=== PATIENT | female | born 1935 | race Hispanic/Latino ===

== ENCOUNTER 2016-07-14 19:47 | Inpatient (IN) | payer OTHER, MEDICARE ==
[2016-07-14 19:25] VITALS: BMI 30.4
--- NOTE | 2016-07-14 21:32 | CP.PCM.HP ---
History of Present Illness - History of Present Illness History of Present Illness: CC: s/p VT ablation, here for PT This is a 80 y/o female with a history of CAD/OK, HTN, HLD, CVA in the past, and ischemic cardiomyopathy who was admitted to [facility] on 07/09 for VT ablation after her AICD had fired multiple (2) times. It appears she had the procedure 07/13 which appeared to be successful, and she is now here rehab due to deconditioning. At this time, she has no c/c. ROS: 14 systems reviewed, negative other than HPI. MHx: CAD/OK, HTN, HLD, CVA in the past, and ischemic cardiomyopathy; history of breast cancer as well SHx: VT ablation, appx, tonsillectomy, b/l cataracts, tubal ligation, cath/ stents, AICD placement Allergies: NKDA Medication: see transfer med list Family Hx: Reviewed, no relevant findings Social Hx: Lives alone, no tobacco, no EtOH Surrogate Decision Maker: Pending Present on Admission - Present on Admission Any Indicators Present on Admission: No Past Patient History - Infectious Disease Hx of Infectious Diseases: None - Tetanus Immunizations Tetanus Immunization: Unknown - Past Medical History & Family History Past Medical History?: Yes - Past Social History Smoking Status: Former Smoker (stopped in 1982) Chewing Tobacco Use: No - CARDIAC Hx Heart Attack: Yes Hx Hypercholesterolemia: No - PULMONARY Hx Chronic Obstructive Pulmonary Disease (COPD): No Hx Pneumonia: Yes - NEUROLOGICAL Hx Neurological Disorder: No HX Cerebrovascular Accident: No - HEENT Other/Comment: mastoiditis - RENAL Hx Chronic Kidney Disease: No - ENDOCRINE/METABOLIC Hx Hypothyroidism: Yes - HEMATOLOGICAL/ONCOLOGICAL Hx Cancer: Yes - INTEGUMENTARY Hx Dermatological Problems: No - MUSCULOSKELETAL/RHEUMATOLOGICAL Hx Osteoporosis: Yes (on Zometa) - GASTROINTESTINAL Hx Gastrointestinal Disorders: No - GENITOURINARY/GYNECOLOGICAL Hx Genitourinary Disorders: No - PSYCHIATRIC Hx Psychophysiologic Disorder: No Hx Substance Use: No - SURGICAL HISTORY Hx Cataract Extraction: Yes - ANESTHESIA Hx Anesthesia: Yes Hx Anesthesia Reactions: No Hx Malignant Hyperthermia: No Meds Allergies/Adverse Reactions: Allergies Allergy/AdvReac Type Severity Reaction Status Date / Time No Known Allergies Allergy Verified 04/29/16 07:58 Physical Exam - Constitutional Appears: No Acute Distress - Head Exam Head Exam: ATRAUMATIC, NORMOCEPHALIC - Eye Exam Eye Exam: EOMI, PERRL - ENT Exam ENT Exam: Mucous Membranes Moist - Neck Exam Neck exam: Positive for: Full Rom - Respiratory Exam Respiratory Exam: Clear to Auscultation Bilateral, NORMAL BREATHING PATTERN - Cardiovascular Exam Cardiovascular Exam: REGULAR RHYTHM, +S1, +S2 - GI/Abdominal Exam GI & Abdominal Exam: Normal Bowel Sounds, Soft - Extremities Exam Extremities exam: Positive for: full ROM, normal inspection - Neurological Exam Neurological exam: Alert, CN II-XII Intact, Oriented x3 - Psychiatric Exam Psychiatric exam: Normal Affect, Normal Mood - Skin Skin Exam: Dry, Warm Assessment & Plan (1) Status post ablation of ventricular arrhythmia Assessment and Plan: 80 y/o female with multiple medical problems who presents for PT post VT ablation. 1) s/p V tach ablation -Will consult cardiology (Kerry) for recommendation re: antiarrhythmia medication -- apparently amio d/c'ed s/p ablation, will continue to hold; continue Mexilitene for now until cardiology consult 2) CAD/HLD -- cont home medications incl b-B, ASA, Plavix, statin 3) HTN -- cont Losartan, metoprolol 4) Isch cardio/CHF -- cont b-blockers, Lasix 5) Hypothyroid -- cont synthroid 6) R otitis -- will need to clarify length of treatment with [place] -- unclear how many days she has received 7) DVT PPx -- SC Lovenox Status: Acute (2) CHF (congestive heart failure) Status: Chronic Priority: High (3) HLD (hyperlipidemia) Status: Chronic (4) HTN (hypertension) Status: Chronic (5) DVT prophylaxis Status: Acute
[2016-07-14 22:30] VITALS: RESP 20
[2016-07-15 06:54] LABS: HEMATOCRIT 27.2 % (34.0-47.0); MEAN CELL VOLUME 93.4 fl (81.0-99.0); MEAN CORPUSCULAR HEMOGLOBIN 30.3 pg (27.0-31.0); MEAN CORPUSCULAR HGB CONC 32.5 g/dL (33.0-37.0); RED CELL DISTRIBUTION WIDTH 15.3 % (11.5-14.5); WHITE BLOOD COUNT 9.9 K/uL (4.8-10.8)
[2016-07-15 07:31] LABS: CALCIUM 8.3 mg/dL (8.4-10.2); POTASSIUM 3.9 MMOL/L (3.6-5.0)
[2016-07-15] MEDS ORDERED: OFLOXACIN 0.3% AD SCH (09:00)
[2016-07-15] MEDS: Enoxaparin 40 mg Syringe SC SCH (09:15)
[2016-07-15] MEDS: Multivitamin With Minerals Tab PO SCH (09:32)
[2016-07-15] MEDS: Pantoprazole 40 mg EC Tab PO SCH (09:32)
[2016-07-15] MEDS: Calcium-Vit D 500 mg-200 Units Tab UD PO SCH (09:32)
[2016-07-15] MEDS: Metoprolol Succinate 50 mg XL Tab PO SCH (09:33)
[2016-07-15] MEDS: Levothyroxine 25 MCG TAB PO SCH (09:34)
--- NOTE | 2016-07-15 10:10 | CP.PCM.CON ---
History of Present Illness - History of Present Illness History of Present Illness: Full Note Dictated. Recent VT ablation procedure H/O Recurrent bouts of VT CAD with dilated cardiomyopathy COPD S/P Mastectomy for CA Breast Pt stable from cardiac point of view at this point Past Patient History - Infectious Disease Hx of Infectious Diseases: None - Tetanus Immunizations Tetanus Immunization: Unknown - Past Medical History & Family History Past Medical History?: Yes - Past Social History Smoking Status: Former Smoker (stopped in 1982) Chewing Tobacco Use: No - CARDIAC Hx Heart Attack: Yes Hx Hypercholesterolemia: No - PULMONARY Hx Chronic Obstructive Pulmonary Disease (COPD): No Hx Pneumonia: Yes - NEUROLOGICAL Hx Neurological Disorder: No HX Cerebrovascular Accident: No - HEENT Other/Comment: mastoiditis - RENAL Hx Chronic Kidney Disease: No - ENDOCRINE/METABOLIC Hx Hypothyroidism: Yes - HEMATOLOGICAL/ONCOLOGICAL Hx Cancer: Yes - INTEGUMENTARY Hx Dermatological Problems: No - MUSCULOSKELETAL/RHEUMATOLOGICAL Hx Osteoporosis: Yes (on Zometa) - GASTROINTESTINAL Hx Gastrointestinal Disorders: No - GENITOURINARY/GYNECOLOGICAL Hx Genitourinary Disorders: No - PSYCHIATRIC Hx Psychophysiologic Disorder: No Hx Substance Use: No - SURGICAL HISTORY Hx Cataract Extraction: Yes - ANESTHESIA Hx Anesthesia: Yes Hx Anesthesia Reactions: No Hx Malignant Hyperthermia: No Meds Allergies/Adverse Reactions: Allergies Allergy/AdvReac Type Severity Reaction Status Date / Time No Known Allergies Allergy Verified 04/29/16 07:58 - Medications Medications: Current Medications Anastrozole (Arimidex 1 Mg Tab) 1 mg PO DAILY [facility] Ascorbic Acid (Vitamin C 500 Mg Tab) 1,000 mg PO DAILY [facility] Last Admin: 07/15/16 09:34 Dose: 1,000 mg Aspirin (Ecotrin) 81 mg PO DAILY [facility] Last Admin: 07/15/16 09:35 Dose: 81 mg Atorvastatin Calcium (Lipitor) 20 mg PO HS [facility] Last Admin: 07/14/16 23:03 Dose: 20 mg Calcium/Vitamin D (Oyster Shell Calcium/Vitamin D 500 Mg-200 Iu) 1 tab PO DAILY [facility] Last Admin: 07/15/16 09:32 Dose: 1 tab Cholecalciferol (Vitamin D) 2,000 iu PO DAILY [facility] Last Admin: 07/15/16 09:34 Dose: 2,000 iu Enoxaparin Sodium (Lovenox) 40 mg SC DAILY [facility] PRN Reason: Protocol Furosemide (Lasix) 20 mg PO DAILY [facility] Last Admin: 07/15/16 09:34 Dose: 20 mg Home Med (Ubidecarenone [Coenzyme Q-10]) 200 mg PO DAILY [facility] Levothyroxine Sodium (Synthroid) 25 mcg PO DAILY [facility] Last Admin: 07/15/16 09:34 Dose: 25 mcg Losartan Potassium (Cozaar) 25 mg PO DAILY [facility] Last Admin: 07/15/16 09:32 Dose: 25 mg Metoprolol Succinate (Toprol Xl) 50 mg PO DAILY [facility] Last Admin: 07/15/16 09:33 Dose: 50 mg Mexiletine HCl (Mexiletine) 150 mg PO Q8H [facility] Last Admin: 07/15/16 05:53 Dose: 150 mg Multivitamins/Minerals (Therapeutic-M Tab) 1 tab PO DAILY [facility] Last Admin: 07/15/16 09:32 Dose: 1 tab Ofloxacin (Floxin 0.3% Otic Soln) 5 drop AD DAILY [facility] Pantoprazole Sodium (Protonix Ec Tab) 40 mg PO DAILY [facility] Last Admin: 07/15/16 09:32 Dose: 40 mg Results - Vital Signs Recent Vital Signs: Last Vital Signs Temp 97.3 F L 07/15/16 08:14 Pulse 75 07/15/16 09:33 Resp 20 07/15/16 08:14 BP 151/72 H 07/15/16 09:34 Pulse Ox 100 07/15/16 08:14 - Labs Result Diagrams: 07/15/16 06:33 07/15/16 06:33 Labs: Laboratory Results - last 24 hr 07/15/16 07/15/16 06:33 06:33 WBC 9.9 RBC 2.92 L Hgb 8.8 L D Hct 27.2 L MCV 93.4 MCH 30.3 MCHC 32.5 L RDW 15.3 H Plt Count 195 Sodium 140 Potassium 3.9 Chloride 109 H Carbon Dioxide 26 Anion Gap 9 L BUN 21 H Creatinine 1.1 Est GFR ( Amer) 58 Est GFR (Non-Af Amer) 48 Random Glucose 116 H Calcium 8.3 L
[2016-07-15] MEDS: Patient's Own Med (Ubidecarenone [Coenzyme Q-10] 200 mg) PO SCH (10:30)
--- NOTE | 2016-07-15 10:46 | CON ---
DATE: 07/15/2016 She is hospitalized under the hospitalist's care in room 707, bed 2. HISTORY OF PRESENT ILLNESS: This 80-year-old female had undergone a coronary angiogram in early which revealed evidence of dilated cardiomyopathy. No coronary stenting was carried out at that time. She is an ex-smoker with COPD and had had bouts of ventricular tachycardia in her March hosp italization and required a direct current cardioversion followed by insertion of an AICD. Subsequent ly, the patient had been placed on mexiletine and amiodarone and bitterly complained about the side e ffects, but did not want to undergo a VT ablation procedure which was offered to her at that time. S ubsequently, in early June, the patient finally agreed to undergo this procedure and she was schedul ed to have this done electively at the end of June when, couple of days before that episode, she had repeated DC shocks from her AICD and was urgently hospitalized. Interrogation of the device showed multiple bouts of ventricular tachycardia which were repeatedly resolved with DC shock. Finally, the patient underwent a VT ablation procedure 2 days back and subsequently has been sent here to recoup. The patient is continued on mexiletine and metoprolol for a couple of weeks before they are tapered off. At this point, she denies any palpitations or any further shocks subsequent to the ablation pr ocedure. PHYSICAL EXAMINATION: GENERAL: Shows an elderly lady who is anxious about recent events, but denies any discomfort, alert, awake, coherent. VITAL SIGNS: Afebrile with a pulse rate of 70 beats per minute and regular and a blood pressure of 1 50/72 mmHg. NECK: Her jugular venous pressure was not elevated. EXTREMITIES: There was no edema over lower extremity. Her extremities were warm. Nailbeds were pin k. There was no central or peripheral cyanosis. There was no clubbing. Pedal pulses were well felt . There were no carotid bruits. Evidence of mastectomy was present. HEART: The apex was not palpable. The first and second heart sounds were normal. There was no murm ur or gallop. LUNGS: There were no rales. ABDOMEN: Soft. Liver and spleen were not palpable. Her electrocardiogram showed sinus rhythm with nonspecific ST-T changes, inverted T waves in lead 1 a nd aVL as well as V4, V5 and V6. Tall R waves in V2 were suggestive of possible old posterior wall m yocardial infarction, a pattern seen on earlier electrocardiogram as well. LABORATORY DATA: Her labs done yesterday were reviewed and they show a hemoglobin and hematocrit of 8.8 g and 27.2%, respectively. Her BUN and creatinine were 21 and 1.1 mg%. Her potassium was normal . Review of her hemoglobin shows that, on earlier occasions as recent as on 07/07, her hemoglobin was 11.6 g. The patient denies any melena. Her stool for occult blood and iron studies will be obtaine d. At this point, she is hemodynamically stable. Latrell Payne MD cc: 23 TT: 07/15/2016 10:46:05 Confirmation # [id number] Dictation # [id number]
[2016-07-15 12:07] LABS: IRON 42 ug/dL (37-170)
--- NOTE | 2016-07-15 18:49 | CARD ---
APPROVED REPORT EKG Measurement Heart [id number] IA [id number] <Conclusion> Normal sinus rhythm ST & T wave abnormality, consider lateral ischemia Prolonged QT Abnormal ECG
--- NOTE | 2016-07-16 09:14 | CP.PCM.PN ---
Subjective - Date & Time of Evaluation Date of Evaluation: 07/16/16 Time of Evaluation: 09:00 - Subjective Subjective: C/O mild dyspnoea, partially relieved by O2 supplement (pulse Ox was stable) BP 130/70 mm Hg JVP flat, bi basal rales++ No gallop Brief apical syst murmur+ Retic count 1.8% Ferritin normal/Fe saturation is low Will check Serum B12 and RBC folate Ordered Lasix to dania pt. Objective - Vital Signs/Intake and Output Vital Signs (last 24 hours): Temp Pulse Resp BP Pulse Ox 97.7 F 72 20 147/65 99 07/16/16 07:58 07/16/16 07:58 07/16/16 07:58 07/16/16 07:58 07/16/16 07:58 - Medications Medications: Current Medications Anastrozole (Arimidex 1 Mg Tab) 1 mg PO DAILY [facility] Last Admin: 07/15/16 10:29 Dose: 1 mg Ascorbic Acid (Vitamin C 500 Mg Tab) 1,000 mg PO DAILY [facility] Last Admin: 07/15/16 09:34 Dose: 1,000 mg Aspirin (Ecotrin) 81 mg PO DAILY [facility] Last Admin: 07/15/16 09:35 Dose: 81 mg Atorvastatin Calcium (Lipitor) 20 mg PO HS [facility] Last Admin: 07/15/16 21:27 Dose: 20 mg Calcium/Vitamin D (Oyster Shell Calcium/Vitamin D 500 Mg-200 Iu) 1 tab PO DAILY [facility] Last Admin: 07/15/16 09:32 Dose: 1 tab Cholecalciferol (Vitamin D) 2,000 iu PO DAILY [facility] Last Admin: 07/15/16 09:34 Dose: 2,000 iu Enoxaparin Sodium (Lovenox) 40 mg SC DAILY [facility] PRN Reason: Protocol Furosemide (Lasix) 20 mg PO DAILY [facility] Last Admin: 07/15/16 09:34 Dose: 20 mg Furosemide (Lasix) 40 mg IVP ONCE ONE Stop: 07/16/16 09:16 Home Med (Ubidecarenone [Coenzyme Q-10]) 200 mg PO DAILY [facility] Levothyroxine Sodium (Synthroid) 25 mcg PO DAILY [facility] Last Admin: 07/15/16 09:34 Dose: 25 mcg Losartan Potassium (Cozaar) 25 mg PO DAILY [facility] Last Admin: 07/15/16 09:32 Dose: 25 mg Metoprolol Succinate (Toprol Xl) 50 mg PO DAILY [facility] Last Admin: 07/15/16 09:33 Dose: 50 mg Mexiletine HCl (Mexiletine) 150 mg PO Q8H [facility] Last Admin: 07/16/16 05:02 Dose: 150 mg Multivitamins/Minerals (Therapeutic-M Tab) 1 tab PO DAILY [facility] Last Admin: 07/15/16 09:32 Dose: 1 tab Pantoprazole Sodium (Protonix Ec Tab) 40 mg PO DAILY [facility] Last Admin: 07/15/16 09:32 Dose: 40 mg - Labs Labs: 07/15/16 06:33 07/15/16 06:33
[2016-07-16] MEDS: Multivitamin With Minerals Tab PO SCH (09:31)
[2016-07-16] MEDS: Enoxaparin 40 mg Syringe SC SCH (09:33)
[2016-07-16] MEDS: Calcium-Vit D 500 mg-200 Units Tab UD PO SCH (09:33)
[2016-07-16] MEDS: Levothyroxine 25 MCG TAB PO SCH (09:33)
[2016-07-16] MEDS: Metoprolol Succinate 50 mg XL Tab PO SCH (09:37)
[2016-07-16] MEDS: Pantoprazole 40 mg EC Tab PO SCH (09:37)
--- NOTE | 2016-07-16 12:18 | CP.PCM.PN ---
Subjective - Date & Time of Evaluation Date of Evaluation: 07/16/16 Time of Evaluation: 12:18 - Subjective Subjective: pt doing well tolerating PT well no complaints vss nad Objective - Vital Signs/Intake and Output Vital Signs (last 24 hours): Temp Pulse Resp BP Pulse Ox 97.7 F 72 20 147/65 99 07/16/16 07:58 07/16/16 09:37 07/16/16 07:58 07/16/16 10:07 07/16/16 07:58 - Medications Medications: Current Medications Anastrozole (Arimidex 1 Mg Tab) 1 mg PO DAILY [facility] Last Admin: 07/16/16 09:32 Dose: 1 mg Ascorbic Acid (Vitamin C 500 Mg Tab) 1,000 mg PO DAILY [facility] Last Admin: 07/16/16 09:32 Dose: 1,000 mg Aspirin (Ecotrin) 81 mg PO DAILY [facility] Last Admin: 07/16/16 09:34 Dose: 81 mg Atorvastatin Calcium (Lipitor) 20 mg PO HS [facility] Last Admin: 07/15/16 21:27 Dose: 20 mg Calcium/Vitamin D (Oyster Shell Calcium/Vitamin D 500 Mg-200 Iu) 1 tab PO DAILY [facility] Last Admin: 07/16/16 09:33 Dose: 1 tab Cholecalciferol (Vitamin D) 2,000 iu PO DAILY [facility] Last Admin: 07/16/16 09:32 Dose: 2,000 iu Enoxaparin Sodium (Lovenox) 40 mg SC DAILY [facility] PRN Reason: Protocol Last Admin: 07/16/16 09:33 Dose: 40 mg Furosemide (Lasix) 20 mg PO DAILY [facility] Last Admin: 07/16/16 09:37 Dose: Not Given Levothyroxine Sodium (Synthroid) 25 mcg PO DAILY [facility] Last Admin: 07/16/16 09:33 Dose: 25 mcg Losartan Potassium (Cozaar) 25 mg PO DAILY [facility] Last Admin: 07/16/16 09:34 Dose: 25 mg Metoprolol Succinate (Toprol Xl) 50 mg PO DAILY [facility] Last Admin: 07/16/16 09:37 Dose: 50 mg Mexiletine HCl (Mexiletine) 150 mg PO Q8H [facility] Last Admin: 07/16/16 05:02 Dose: 150 mg Multivitamins/Minerals (Therapeutic-M Tab) 1 tab PO DAILY [facility] Last Admin: 07/16/16 09:31 Dose: 1 tab Pantoprazole Sodium (Protonix Ec Tab) 40 mg PO DAILY [facility] Last Admin: 07/16/16 09:37 Dose: 40 mg - Labs Labs: 07/15/16 06:33 07/15/16 06:33 - Constitutional Appears: Non-toxic, No Acute Distress - Head Exam Head Exam: ATRAUMATIC, NORMOCEPHALIC - Eye Exam Eye Exam: EOMI, Normal appearance, PERRL Pupil Exam: NORMAL ACCOMODATION - ENT Exam ENT Exam: Mucous Membranes Moist, Normal Oropharynx - Neck Exam Neck Exam: Normal Inspection. absent: Lymphadenopathy - Respiratory Exam Respiratory Exam: Clear to Ausculation Bilateral, NORMAL BREATHING PATTERN. absent: Rhonchi, Wheezes - Cardiovascular Exam Cardiovascular Exam: RRR, +S1, +S2. absent: Gallop, Rubs - GI/Abdominal Exam GI & Abdominal Exam: Soft, Normal Bowel Sounds. absent: Tenderness, Mass, Organomegaly - Extremities Exam Extremities Exam: absent: Calf Tenderness, Joint Swelling - Back Exam Back Exam: absent: CVA tenderness (L), CVA tenderness (R) - Neurological Exam Neurological Exam: Alert, Awake - Psychiatric Exam Psychiatric exam: Normal Affect, Normal Mood - Skin Skin Exam: Dry, Warm Assessment and Plan - Assessment and Plan (Free Text) Plan: Status post ablation of ventricular arrhythmia 80 y/o female with multiple medical problems who presents for PT post VT ablation. s/p V tach ablation cardiology consult, Dr. Payne appreciated and followed. continue mexilitine CAD/HLD - cont home medications including BB, ASA, Plavix, statin HTN cont Losartan, metoprolol Ischemic cardiomyopathy/CHF cont b-blockers, Lasix for diuresis Cariodlogy Hypothyroid cont synthroid Hx Breast Ca continue arimidex DVT PPx lovenox
[2016-07-16] MEDS: Patient's Own Med (Ubidecarenone [Coenzyme Q-10] 200 mg) PO SCH (13:27)
[2016-07-17] MEDS: Levothyroxine 25 MCG TAB PO SCH (09:31)
[2016-07-17] MEDS: Metoprolol Succinate 50 mg XL Tab PO SCH (09:34)
[2016-07-17] MEDS: Pantoprazole 40 mg EC Tab PO SCH (09:34)
[2016-07-17] MEDS: Calcium-Vit D 500 mg-200 Units Tab UD PO SCH (09:34)
[2016-07-17] MEDS: Multivitamin With Minerals Tab PO SCH (09:35)
[2016-07-17] MEDS: Enoxaparin 40 mg Syringe SC SCH (09:36)
--- NOTE | 2016-07-17 10:30 | CP.PCM.PN ---
Subjective - Date & Time of Evaluation Date of Evaluation: 07/17/16 Time of Evaluation: 10:10 - Subjective Subjective: Diuresed well and slept well Pt seen during PT Feels well Vital signs stable No rales, no gallop S B12 level normal Will keep pt on 40 Mg of Lasix PO daily. Objective - Vital Signs/Intake and Output Vital Signs (last 24 hours): Temp Pulse Resp BP Pulse Ox 98.0 F 60 20 139/65 98 07/17/16 08:03 07/17/16 09:34 07/17/16 08:03 07/17/16 09:35 07/17/16 08:03 - Medications Medications: Current Medications Anastrozole (Arimidex 1 Mg Tab) 1 mg PO DAILY [facility] Last Admin: 07/17/16 09:33 Dose: 1 mg Ascorbic Acid (Vitamin C 500 Mg Tab) 1,000 mg PO DAILY [facility] Last Admin: 07/17/16 09:34 Dose: 1,000 mg Aspirin (Ecotrin) 81 mg PO DAILY [facility] Last Admin: 07/17/16 09:33 Dose: 81 mg Atorvastatin Calcium (Lipitor) 20 mg PO HS [facility] Last Admin: 07/16/16 21:22 Dose: 20 mg Calcium/Vitamin D (Oyster Shell Calcium/Vitamin D 500 Mg-200 Iu) 1 tab PO DAILY [facility] Last Admin: 07/17/16 09:34 Dose: 1 tab Cholecalciferol (Vitamin D) 2,000 iu PO DAILY [facility] Last Admin: 07/17/16 09:35 Dose: 2,000 iu Enoxaparin Sodium (Lovenox) 40 mg SC DAILY [facility] PRN Reason: Protocol Last Admin: 07/17/16 09:36 Dose: 40 mg Furosemide (Lasix) 40 mg PO DAILY [facility] Levothyroxine Sodium (Synthroid) 25 mcg PO DAILY [facility] Last Admin: 07/17/16 09:31 Dose: 25 mcg Losartan Potassium (Cozaar) 25 mg PO DAILY [facility] Last Admin: 07/17/16 09:34 Dose: 25 mg Metoprolol Succinate (Toprol Xl) 50 mg PO DAILY [facility] Last Admin: 07/17/16 09:34 Dose: 50 mg Mexiletine HCl (Mexiletine) 150 mg PO Q8H [facility] Last Admin: 07/17/16 06:26 Dose: 150 mg Multivitamins/Minerals (Therapeutic-M Tab) 1 tab PO DAILY [facility] Last Admin: 07/17/16 09:35 Dose: 1 tab Pantoprazole Sodium (Protonix Ec Tab) 40 mg PO DAILY [facility] Last Admin: 07/17/16 09:34 Dose: 40 mg - Labs Labs: 07/15/16 06:33 07/15/16 06:33
[2016-07-18] MEDS: Levothyroxine 25 MCG TAB PO SCH (06:27)
[2016-07-18] MEDS: Pantoprazole 40 mg EC Tab PO SCH (09:33)
[2016-07-18] MEDS: Metoprolol Succinate 50 mg XL Tab PO SCH (09:35)
[2016-07-18] MEDS: Enoxaparin 40 mg Syringe SC SCH (09:36)
[2016-07-18] MEDS: Multivitamin With Minerals Tab PO SCH (14:59)
[2016-07-18] MEDS: Calcium-Vit D 500 mg-200 Units Tab UD PO SCH (18:08)
[2016-07-19] MEDS: Levothyroxine 25 MCG TAB PO SCH (06:33)
[2016-07-19] MEDS: Metoprolol Succinate 50 mg XL Tab PO SCH (09:15)
[2016-07-19] MEDS: Pantoprazole 40 mg EC Tab PO SCH (09:15)
--- NOTE | 2016-07-19 10:13 | CP.PCM.PN ---
Subjective - Date & Time of Evaluation Date of Evaluation: 07/19/16 Time of Evaluation: 10:05 - Subjective Subjective: Had diarrhoea yesterday, did not participate in PT No further diarrhoea since yesterday after noon No COREA No orthopnoea Pulse 68 BPM BP 120/70 mm HG No rales, no gallop On 40 Mg of Furosemide daily. Objective - Vital Signs/Intake and Output Vital Signs (last 24 hours): Temp Pulse Resp BP Pulse Ox 97.5 F L 62 20 141/65 92 L 07/19/16 08:38 07/19/16 09:15 07/19/16 08:38 07/19/16 09:16 07/19/16 08:38 - Medications Medications: Current Medications Anastrozole (Arimidex 1 Mg Tab) 1 mg PO DAILY [facility] Last Admin: 07/19/16 09:17 Dose: 1 mg Ascorbic Acid (Vitamin C 500 Mg Tab) 1,000 mg PO DAILY@1600 [facility] Last Admin: 07/18/16 18:07 Dose: 1,000 mg Aspirin (Ecotrin) 81 mg PO DAILY [facility] Last Admin: 07/19/16 09:15 Dose: 81 mg Atorvastatin Calcium (Lipitor) 20 mg PO HS [facility] Last Admin: 07/18/16 21:44 Dose: 20 mg Calcium/Vitamin D (Oyster Shell Calcium/Vitamin D 500 Mg-200 Iu) 1 tab PO DAILY @1600 [facility] Last Admin: 07/18/16 18:08 Dose: 1 tab Cholecalciferol (Vitamin D) 2,000 iu PO DAILY@1600 [facility] Last Admin: 07/18/16 18:07 Dose: 2,000 iu Furosemide (Lasix) 40 mg PO DAILY [facility] Last Admin: 07/19/16 09:16 Dose: 40 mg Levothyroxine Sodium (Synthroid) 25 mcg PO DAILY@0630 [facility] Last Admin: 07/19/16 06:33 Dose: 25 mcg Losartan Potassium (Cozaar) 25 mg PO DAILY [facility] Last Admin: 07/19/16 09:15 Dose: 25 mg Metoprolol Succinate (Toprol Xl) 50 mg PO DAILY [facility] Last Admin: 07/19/16 09:15 Dose: 50 mg Mexiletine HCl (Mexiletine) 150 mg PO Q8H [facility] Last Admin: 07/19/16 06:30 Dose: 150 mg Multivitamins/Minerals (Therapeutic-M Tab) 1 tab PO DAILY@1600 [facility] Last Admin: 07/18/16 14:59 Dose: 1 tab Pantoprazole Sodium (Protonix Ec Tab) 40 mg PO DAILY [facility] Last Admin: 07/19/16 09:15 Dose: 40 mg - Labs Labs: 07/15/16 06:33 07/15/16 06:33
[2016-07-19] MEDS: Multivitamin With Minerals Tab PO SCH (17:01)
[2016-07-19] MEDS: Calcium-Vit D 500 mg-200 Units Tab UD PO SCH (18:00)
[2016-07-20] MEDS: Levothyroxine 25 MCG TAB PO SCH (06:25)
[2016-07-20 06:27] LABS: BASO # 0.1 K/uL (0.0-0.2); BASO % 0.9 % (0.0-2.0); EOS # 0.2 K/uL (0.0-0.7); EOS % 1.6 % (0.0-4.0); HEMATOCRIT 30.3 % (34.0-47.0); LYMPH # 2.3 K/uL (1.0-4.3); LYMPH % 19.1 % (20.0-40.0); MEAN CELL VOLUME 92.3 fl (81.0-99.0); MEAN CORPUSCULAR HEMOGLOBIN 30.3 pg (27.0-31.0); MEAN CORPUSCULAR HGB CONC 32.8 g/dL (33.0-37.0); MEAN PLATELET VOLUME 8.7 fl (7.2-11.7); MONO # 1.3 K/uL (0.0-0.8); MONO % 10.9 % (0.0-10.0); NEUT # 8.1 K/uL (1.8-7.0); NEUT % 67.5 % (50.0-75.0); RED CELL DISTRIBUTION WIDTH 15.3 % (11.5-14.5)
[2016-07-20 06:45] LABS: BILIRUBIN,TOTAL 0.3 mg/dl (0.2-1.3); CALCIUM 8.8 mg/dL (8.4-10.2); POTASSIUM 3.6 MMOL/L (3.6-5.0); TOTAL PROTEIN 5.9 G/DL (6.3-8.2)
[2016-07-20] MEDS: Metoprolol Succinate 50 mg XL Tab PO SCH (08:39)
[2016-07-20] MEDS: Pantoprazole 40 mg EC Tab PO SCH (08:39)
--- NOTE | 2016-07-20 08:40 | CP.PCM.PN ---
Subjective - Date & Time of Evaluation Date of Evaluation: 07/20/16 Time of Evaluation: 08:20 - Subjective Subjective: No further diarrhoea over last 24 hrs. Continues to report a general sense of fatigue HR 66 BPM, reg BP 140/74 mm Hg JVP flat, no pedal oedema No gallop/ no rales Labs show Hb improved to 9.9 Gms ( from 8.8 gms 5 days back) Stool for OB +ve (?? Its significance in face of essentially normal Fe studies and normocytic RBCs) BUN/Creatinin and electrolytes normal Present Rx to continue Objective - Vital Signs/Intake and Output Vital Signs (last 24 hours): Temp Pulse Resp BP Pulse Ox 97.9 F 60 20 135/59 L 100 07/20/16 07:57 07/20/16 07:57 07/20/16 07:57 07/20/16 07:57 07/20/16 07:57 - Medications Medications: Current Medications Anastrozole (Arimidex 1 Mg Tab) 1 mg PO DAILY [facility] Last Admin: 07/19/16 09:17 Dose: 1 mg Ascorbic Acid (Vitamin C 500 Mg Tab) 1,000 mg PO DAILY@1600 [facility] Last Admin: 07/19/16 17:01 Dose: 1,000 mg Aspirin (Ecotrin) 81 mg PO DAILY [facility] Last Admin: 07/19/16 09:15 Dose: 81 mg Atorvastatin Calcium (Lipitor) 20 mg PO HS [facility] Last Admin: 07/19/16 21:14 Dose: 20 mg Calcium/Vitamin D (Oyster Shell Calcium/Vitamin D 500 Mg-200 Iu) 1 tab PO DAILY @1600 [facility] Last Admin: 07/19/16 18:00 Dose: 1 tab Cholecalciferol (Vitamin D) 2,000 iu PO DAILY@1600 [facility] Last Admin: 07/19/16 18:00 Dose: 2,000 iu Furosemide (Lasix) 40 mg PO DAILY [facility] Last Admin: 07/19/16 09:16 Dose: 40 mg Levothyroxine Sodium (Synthroid) 25 mcg PO DAILY@0630 [facility] Last Admin: 07/20/16 06:25 Dose: 25 mcg Losartan Potassium (Cozaar) 25 mg PO DAILY [facility] Last Admin: 07/19/16 09:15 Dose: 25 mg Metoprolol Succinate (Toprol Xl) 50 mg PO DAILY [facility] Last Admin: 07/19/16 09:15 Dose: 50 mg Mexiletine HCl (Mexiletine) 150 mg PO Q8H [facility] Last Admin: 07/20/16 06:25 Dose: 150 mg Multivitamins/Minerals (Therapeutic-M Tab) 1 tab PO DAILY@1600 [facility] Last Admin: 07/19/16 17:01 Dose: 1 tab Pantoprazole Sodium (Protonix Ec Tab) 40 mg PO DAILY [facility] Last Admin: 07/19/16 09:15 Dose: 40 mg - Labs Labs: 07/20/16 05:45 07/20/16 05:45
[2016-07-20] MEDS: Multivitamin With Minerals Tab PO SCH (16:38)
[2016-07-20] MEDS: Calcium-Vit D 500 mg-200 Units Tab UD PO SCH (18:15)
[2016-07-21] MEDS: Levothyroxine 25 MCG TAB PO SCH (06:13)
--- NOTE | 2016-07-21 08:52 | CP.PCM.PN ---
Subjective - Date & Time of Evaluation Date of Evaluation: 07/21/16 Time of Evaluation: 08:30 - Subjective Subjective: Was able to get in and out of bed unassisted More stable on her feet HR 66 BPM, reg BP 136/78 mm Hg No signs of CHF Tolerates present Rx well Labs stable Objective - Vital Signs/Intake and Output Vital Signs (last 24 hours): Temp Pulse Resp BP Pulse Ox 98.2 F 60 20 137/63 97 07/21/16 08:23 07/21/16 08:23 07/21/16 08:23 07/21/16 08:23 07/21/16 08:23 - Medications Medications: Current Medications Anastrozole (Arimidex 1 Mg Tab) 1 mg PO DAILY [facility] Last Admin: 07/20/16 08:39 Dose: 1 mg Ascorbic Acid (Vitamin C 500 Mg Tab) 1,000 mg PO DAILY@1600 [facility] Last Admin: 07/20/16 16:38 Dose: 1,000 mg Aspirin (Ecotrin) 81 mg PO DAILY [facility] Last Admin: 07/20/16 08:40 Dose: 81 mg Atorvastatin Calcium (Lipitor) 20 mg PO HS [facility] Last Admin: 07/20/16 21:25 Dose: 20 mg Calcium/Vitamin D (Oyster Shell Calcium/Vitamin D 500 Mg-200 Iu) 1 tab PO DAILY @1600 [facility] Last Admin: 07/20/16 18:15 Dose: 1 tab Cholecalciferol (Vitamin D) 2,000 iu PO DAILY@1600 [facility] Last Admin: 07/20/16 18:15 Dose: 2,000 iu Furosemide (Lasix) 40 mg PO DAILY [facility] Last Admin: 07/20/16 08:40 Dose: 40 mg Levothyroxine Sodium (Synthroid) 25 mcg PO DAILY@0630 [facility] Last Admin: 07/21/16 06:13 Dose: 25 mcg Losartan Potassium (Cozaar) 25 mg PO DAILY [facility] Last Admin: 07/20/16 08:40 Dose: 25 mg Metoprolol Succinate (Toprol Xl) 50 mg PO DAILY [facility] Last Admin: 07/20/16 08:39 Dose: 50 mg Mexiletine HCl (Mexiletine) 150 mg PO Q8H [facility] Last Admin: 07/21/16 06:13 Dose: 150 mg Multivitamins/Minerals (Therapeutic-M Tab) 1 tab PO DAILY@1600 [facility] Last Admin: 07/20/16 16:38 Dose: 1 tab Pantoprazole Sodium (Protonix Ec Tab) 40 mg PO DAILY [facility] Last Admin: 07/20/16 08:39 Dose: 40 mg - Labs Labs: 07/20/16 05:45 07/20/16 05:45
[2016-07-21] MEDS: Pantoprazole 40 mg EC Tab PO SCH (09:16)
[2016-07-21] MEDS: Metoprolol Succinate 50 mg XL Tab PO SCH (09:16)
--- NOTE | 2016-07-21 16:04 | CP.PCM.PN ---
Subjective - Date & Time of Evaluation Date of Evaluation: 07/21/16 Time of Evaluation: 15:45 - Subjective Subjective: Patient was seen and evaluated bedside. Feeling better. participating with PT. No more BM during last 4 days . Denies any CP, SOB, palpitations, abdominal pain.Hemodynamically stable, afebrile. No acute issues overnight. Feeling sleepy after Mexiletine dose Objective - Vital Signs/Intake and Output Vital Signs (last 24 hours): Temp Pulse Resp BP Pulse Ox 98.2 F 62 20 134/62 97 07/21/16 08:23 07/21/16 13:34 07/21/16 08:23 07/21/16 13:34 07/21/16 08:23 - Medications Medications: Current Medications Anastrozole (Arimidex 1 Mg Tab) 1 mg PO DAILY [facility] Last Admin: 07/21/16 09:18 Dose: 1 mg Ascorbic Acid (Vitamin C 500 Mg Tab) 1,000 mg PO DAILY@1600 [facility] Last Admin: 07/20/16 16:38 Dose: 1,000 mg Aspirin (Ecotrin) 81 mg PO DAILY [facility] Last Admin: 07/21/16 09:19 Dose: 81 mg Atorvastatin Calcium (Lipitor) 20 mg PO HS [facility] Last Admin: 07/20/16 21:25 Dose: 20 mg Calcium/Vitamin D (Oyster Shell Calcium/Vitamin D 500 Mg-200 Iu) 1 tab PO DAILY @1600 [facility] Last Admin: 07/20/16 18:15 Dose: 1 tab Cholecalciferol (Vitamin D) 2,000 iu PO DAILY@1600 [facility] Last Admin: 07/20/16 18:15 Dose: 2,000 iu Furosemide (Lasix) 40 mg PO DAILY [facility] Last Admin: 07/21/16 09:18 Dose: 40 mg Levothyroxine Sodium (Synthroid) 25 mcg PO DAILY@0630 [facility] Last Admin: 07/21/16 06:13 Dose: 25 mcg Losartan Potassium (Cozaar) 25 mg PO DAILY [facility] Last Admin: 07/21/16 09:19 Dose: 25 mg Metoprolol Succinate (Toprol Xl) 50 mg PO DAILY [facility] Last Admin: 07/21/16 09:16 Dose: 50 mg Mexiletine HCl (Mexiletine) 150 mg PO Q8H [facility] Last Admin: 07/21/16 13:34 Dose: 150 mg Multivitamins/Minerals (Therapeutic-M Tab) 1 tab PO DAILY@1600 [facility] Last Admin: 07/20/16 16:38 Dose: 1 tab Pantoprazole Sodium (Protonix Ec Tab) 40 mg PO DAILY [facility] Last Admin: 07/21/16 09:16 Dose: 40 mg - Labs Labs: 07/20/16 05:45 07/20/16 05:45 - Constitutional Appears: Non-toxic, No Acute Distress - Head Exam Head Exam: ATRAUMATIC, NORMAL INSPECTION, NORMOCEPHALIC - Eye Exam Eye Exam: EOMI, Normal appearance, PERRL Pupil Exam: NORMAL ACCOMODATION - ENT Exam ENT Exam: Mucous Membranes Moist, Normal Exam - Neck Exam Neck Exam: Full ROM, Normal Inspection - Respiratory Exam Respiratory Exam: Clear to Ausculation Bilateral, NORMAL BREATHING PATTERN. absent: Rales, Rhonchi, Wheezes - Cardiovascular Exam Cardiovascular Exam: REGULAR RHYTHM, RRR, +S1, +S2. absent: JVD - GI/Abdominal Exam GI & Abdominal Exam: Soft, Normal Bowel Sounds. absent: Distended, Guarding, Tenderness, Rebound - Rectal Exam Rectal Exam: Deferred - Extremities Exam Extremities Exam: Full ROM, Normal Capillary Refill, Normal Inspection. absent : Calf Tenderness, Pedal Edema - Back Exam Back Exam: NORMAL INSPECTION - Neurological Exam Neurological Exam: Alert, Awake, CN II-XII Intact, Oriented x3 - Psychiatric Exam Psychiatric exam: Normal Affect, Normal Mood - Skin Skin Exam: Dry, Intact, Normal Color, Warm Assessment and Plan - Assessment and Plan (Free Text) Assessment: 80 y/o female with PMH CAD / DC , HTN, dyslipidemia , ischemic cardiomyopathy, hypothyroidism admitted to TCU for physical therapy after VT ablation. 1. Generalized weakness Participating with PT 2.s/p V tach ablation cardiology consult with Dr. Payne appreciated and followed. continue mexilitine 3.CAD/HLD cont home medications including BB, ASA, statin 4.HTN controlled cont Losartan, metoprolol 5.Ischemic cardiomyopathy/CHF stable cont b-blockers, Lasix for diuresis Cardiology cobsult appreciated 6.Hypothyroid cont synthroid 7.Hx Breast Ca continue arimidex 8. Anemia of chronic disease Stable occult positive + but H& H stable will need colonoscopy as outpatient 9.DVT PPx patient is ambulating SCD and ASA mno anticoagulation lowe to anemia and occult positive
[2016-07-21] MEDS: Multivitamin With Minerals Tab PO SCH (16:18)
[2016-07-21] MEDS: Calcium-Vit D 500 mg-200 Units Tab UD PO SCH (16:18)
[2016-07-22] MEDS: Levothyroxine 25 MCG TAB PO SCH (06:45)
[2016-07-22] MEDS: Pantoprazole 40 mg EC Tab PO SCH (09:23)
[2016-07-22] MEDS: Metoprolol Succinate 50 mg XL Tab PO SCH (09:25)
[2016-07-22] MEDS: Multivitamin With Minerals Tab PO SCH (17:37)
[2016-07-22] MEDS: Calcium-Vit D 500 mg-200 Units Tab UD PO SCH (17:38)
[2016-07-23] MEDS: Levothyroxine 25 MCG TAB PO SCH (06:02)
[2016-07-23] MEDS: Pantoprazole 40 mg EC Tab PO SCH (09:24)
[2016-07-23] MEDS: Metoprolol Succinate 50 mg XL Tab PO SCH (09:32)
[2016-07-23] MEDS: Calcium-Vit D 500 mg-200 Units Tab UD PO SCH (17:33)
[2016-07-23] MEDS: Multivitamin With Minerals Tab PO SCH (17:33)
[2016-07-24 00:35] LABS: RBC URINE 6 /hpf (0-3); URINE BACTERIA RARE (<OCC); URINE BILIRUBIN NEGATIVE (NEGATIVE); URINE BLOOD SMALL (NEGATIVE); URINE COLOR YELLOW (YELLOW); URINE GLUCOSE (UA) NEG (Normal); URINE KETONE NEGATIVE (NEGATIVE); URINE LEUKOCYTE ESTERASE LARGE Leu/uL (Negative); URINE PROTEIN NEGATIVE (NEGATIVE); URINE UROBILINOGEN 0.2-1.0 mg/dL (0.2-1.0); WBC URINE 96 /hpf (0-5)
[2016-07-24] MEDS: Levothyroxine 25 MCG TAB PO SCH (06:09)
--- NOTE | 2016-07-24 07:55 | CP.PCM.PN ---
Subjective - Date & Time of Evaluation Date of Evaluation: 07/24/16 Time of Evaluation: 07:30 - Subjective Subjective: Doing well, heartwise Vital signs stable Able to ambulate in the corridor without dyspnoea, on 40mg of Lasix daily No rales, no gallop Labs are stable Have contacted EP at [facility] about F/U now that 2Wks have passed since the procedure Pt reports urinary incontinence Will need to see a urologist Objective - Vital Signs/Intake and Output Vital Signs (last 24 hours): Temp Pulse Resp BP Pulse Ox 97.9 F 62 20 147/68 94 L 07/23/16 19:43 07/24/16 06:09 07/23/16 19:43 07/24/16 06:09 07/23/16 19:43 - Medications Medications: Current Medications Anastrozole (Arimidex 1 Mg Tab) 1 mg PO DAILY [facility] Last Admin: 07/23/16 09:23 Dose: 1 mg Ascorbic Acid (Vitamin C 500 Mg Tab) 1,000 mg PO DAILY@1600 [facility] Last Admin: 07/23/16 17:33 Dose: 1,000 mg Aspirin (Ecotrin) 81 mg PO DAILY [facility] Last Admin: 07/23/16 09:26 Dose: 81 mg Atorvastatin Calcium (Lipitor) 20 mg PO HS [facility] Last Admin: 07/23/16 21:54 Dose: 20 mg Calcium/Vitamin D (Oyster Shell Calcium/Vitamin D 500 Mg-200 Iu) 1 tab PO DAILY @1600 [facility] Last Admin: 07/23/16 17:33 Dose: 1 tab Cholecalciferol (Vitamin D) 2,000 iu PO DAILY@1600 [facility] Last Admin: 07/23/16 17:33 Dose: 2,000 iu Furosemide (Lasix) 40 mg PO DAILY [facility] Last Admin: 07/23/16 09:24 Dose: 40 mg Levothyroxine Sodium (Synthroid) 25 mcg PO DAILY@0630 [facility] Last Admin: 07/24/16 06:09 Dose: 25 mcg Losartan Potassium (Cozaar) 25 mg PO DAILY [facility] Last Admin: 07/23/16 09:27 Dose: 25 mg Metoprolol Succinate (Toprol Xl) 50 mg PO DAILY [facility] Last Admin: 07/23/16 09:32 Dose: 50 mg Mexiletine HCl (Mexiletine) 150 mg PO Q8H [facility] Last Admin: 07/24/16 06:09 Dose: 150 mg Multivitamins/Minerals (Therapeutic-M Tab) 1 tab PO DAILY@1600 [facility] Last Admin: 07/23/16 17:33 Dose: 1 tab Pantoprazole Sodium (Protonix Ec Tab) 40 mg PO DAILY [facility] Last Admin: 07/23/16 09:24 Dose: 40 mg - Labs Labs: 07/20/16 05:45 07/20/16 05:45
[2016-07-24] MEDS: Pantoprazole 40 mg EC Tab PO SCH (08:40)
[2016-07-24] MEDS: Metoprolol Succinate 50 mg XL Tab PO SCH (08:40)
[2016-07-24 14:59] VITALS: PULSE 62
[2016-07-24] MEDS: Multivitamin With Minerals Tab PO SCH (16:05)
[2016-07-24] MEDS: Calcium-Vit D 500 mg-200 Units Tab UD PO SCH (16:05)
[2016-07-24 16:51] VITALS: BP 140/67; TEMP 96.8; O2SAT 96
== END 2016-07-24 17:05 | disposition home health service (06) | DRG 309 ==
LOC: H.TCU 21:02
PROVIDERS: ADMIT Internal Medicine; ATTEND Internal Medicine
PROC: F07Z9FZ Gait Training/Functional Ambulation Treatment using Assistive, Adaptive, Supportive or Protective Equipment (ICD-10-PCS; principal; 2016-07-14)
PROC: F08Z4FZ Home Management Treatment using Assistive, Adaptive, Supportive or Protective Equipment (ICD-10-PCS; 2016-07-14)
PROC: F07M6FZ Therapeutic Exercise Treatment of Musculoskeletal System - Whole Body using Assistive, Adaptive, Supportive or Protective Equipment (ICD-10-PCS; 2016-07-15)
DX: I47.2 Ventricular tachycardia (principal); I42.0 Dilated cardiomyopathy; I11.0 Hypertensive heart disease with heart failure; I50.9 Heart failure, unspecified; I25.10 Atherosclerotic heart disease of native coronary artery without angina pectoris; E03.9 Hypothyroidism, unspecified; H66.91 Otitis media, unspecified, right ear; E78.5 Hyperlipidemia, unspecified; D63.8 Anemia in other chronic diseases classified elsewhere; I25.5 Ischemic cardiomyopathy; R32 Unspecified urinary incontinence; J44.9 Chronic obstructive pulmonary disease, unspecified; I25.2 Old myocardial infarction; M81.0 Age-related osteoporosis without current pathological fracture; Z95.810 Presence of automatic (implantable) cardiac defibrillator; Z86.73 Personal history of transient ischemic attack (TIA), and cerebral infarction without residual deficits; Z87.891 Personal history of nicotine dependence; Z87.01 Personal history of pneumonia (recurrent); Z85.3 Personal history of malignant neoplasm of breast

== ENCOUNTER 2016-11-16 08:39 | Inpatient (IN) | payer MEDICARE ==
--- NOTE | 2016-11-16 08:48 | ED PDOC ---
HPI:STROKE - Time Time: 08:45 - Historian Historian: Patient - Chief Complaint Chief Complaint: Weakness - Onset Date: 11/16/16 Time: 03:00 Onset: Hours (5.5) - Timing Timing: Currently Symptomatic - Location Location: None Locate right:: Lower extremity Locate left: Lower extremity - Radiation Radiation: None - Severity of pain Maximum severity:: Mild Pain Scale:: 0 Severity Current: Mild Pain Scale:: 0 - Associated Symptoms Associated symptoms:: Tremors - Exacerbated by Exacerbated by:: Nothing - Relieved by Relieved by:: Nothing - TPA Positive for Contraindication: Yes Reason tPA is not being Administered: Last known normal 5.5 hours ago - Notes: Notes:: Fell to ground when trying to get out of bed at 3 AM today. Howell weak lower ext bilat followed by tremors upper ext. Denies chest pain or LOC. Denies haedache. Denies injury. No head injury NIHSS Stroke Scale - How Severe is the Stroke Level of Consciousness: 0=Alert LOC to Questions: 0=Both comments correct LOC to commands: 0=Obeys both correctly Best Gaze: 0=Normal Visual: 0=No visual loss Facial: 1=Minor asymmetry Motor Arm - Left: 0=No drift Motor Arm - Right: 0=No drift Motor Leg - Left: 0=No drift Motor Leg - Right: 0=No drift Limb Ataxia: 0=Absent Sensory: 0=Normal Best Language: 0=No aphasia Dysarthia: 0=Normal articulation Extinction & Inattention (Neglect): 0=Normal, no object Score: 1 rTPA Inclusion/Exclusion - Refusal of Treatment Patient Refused Treatment: No - Inclusion Criteria for Altepase Patient is 18 years or Older: Yes The Clinical Diagnosis of Ischemic Stroke That is Causing a Potentially Disabling Neurological Deficit: Yes Time of Onset is Well Established to be Less Than 270 Minute Before Treatment Would Begin: No Risk/Benefit Discussed With Patient/Family Member Present: No Past Medical History - Medical History PMH: Arthritis, Back Problems, Bronchitis, CAD, Cardia Arrhythmia, CHF, HTN, Hypothyroidism, Osteoporosis, Pneumonia, TIA Denies: COPD, HIV, Hypercholesterolemia, Chronic Kidney Disease, Rheumatoid Arthritis - Surgical History Surgical History: Appendectomy, Coronary Stent, Pacemaker Denies: Cholecystectomy - Family History Family History: States: Unknown Family Hx - Immunization History Hx Tetanus Toxoid Vaccination: No Hx Influenza Vaccination: No Hx Pneumococcal Vaccination: No - Home Medications Home Medications: Ambulatory Orders Medication Instructions Recorded Anastrozole [Arimidex] 1 mg PO DAILY 04/29/16 Ascorbic Acid [Vitamin C] 1,000 mg PO DAILY 04/29/16 Aspirin [Ecotrin] 81 mg PO DAILY 04/29/16 Atorvastatin [Lipitor] 20 mg PO HS 04/29/16 Calcium Carbonate/Vitamin D3 2 tab PO DAILY 04/29/16 [Caltrate 600 Plus D3 Tablet] Cholecalciferol (Vitamin D3) 2,000 unit PO DAILY 04/29/16 [Vitamin D3] Clopidogrel [Plavix] 75 mg PO DAILY 04/29/16 Levothyroxine [Synthroid] 25 mcg PO DAILY 04/29/16 Losartan [Cozaar] 25 mg PO DAILY 04/29/16 Mexiletine 150 mg PO Q8H 04/29/16 Multivit-Min/FA/Lycopen/Lutein 1 tab PO DAILY 04/29/16 [Centrum Silver Tablet] Pantoprazole Sodium [Protonix] 40 mg PO DAILY 04/29/16 Ubidecarenone [Coenzyme Q-10] 200 mg PO DAILY 04/29/16 Furosemide [Lasix] 40 mg PO DAILY #20 07/24/16 Furosemide [Lasix] 20 mg PO DAILY 11/16/16 Metoprolol Succinate 25 mg PO BID 11/16/16 - Allergies Allergies/Adverse Reactions: Allergies Allergy/AdvReac Type Severity Reaction Status Date / Time No Known Allergies Allergy Verified 04/29/16 07:58 Review of Systems ROS Statement: Except As Marked, All Systems Reviewed And Found Negative Neurological: Positive for: Weakness Physical Exam - Reviewed Nursing Documentation Reviewed: Yes Vital Signs Reviewed: Yes - Physical Exam Appears: Positive for: Non-toxic, No Acute Distress Head Exam: Positive for: ATRAUMATIC, NORMAL INSPECTION, NORMOCEPHALIC Skin: Positive for: Normal Color, Warm, DRY Eye Exam: Positive for: EOMI, Normal appearance, PERRL ENT: Positive for: Normal ENT Inspection Neck: Positive for: Normal, Painless ROM Cardiovascular/Chest: Positive for: Regular Rate, Rhythm Respiratory: Positive for: CNT, Normal Breath Sounds Gastrointestinal/Abdominal: Positive for: Normal Exam, Bowel Sounds, Soft Back: Positive for: Normal Inspection Extremity: Positive for: Normal ROM Neurologic/Psych: Positive for: Alert, Oriented, Facial Droop (Left side). Negative for: Motor/Sensory Deficits - Laboratory Results Result Diagrams: 11/16/16 11:00 11/16/16 09:00 Medical Decision Making Medical Decision Making: WBC remains elevated at 22.5 with lactate also remaining elevated at 5.2. Judicious administration of IV fluids due to CHF on xray. No obvious source of infection on cxr, urine or skin. Discussed with Dr. Payne. will place in obs for SIRS but will not tx with antibiotics unless source of infection becomes apparent. Disposition - Clinical Impression Clinical Impression: SIRS (systemic inflammatory response syndrome) - Patient ED Disposition Is Patient to be Admitted: Yes - Disposition Disposition Time: 12:28 Condition: FAIR - Pt Status Changed To: Hospital Disposition Of: Observation - POA Present On Arrival: None
--- NOTE | 2016-11-16 09:12 | CT ---
PROCEDURE: CT HEAD WITHOUT CONTRAST. HISTORY: code stroke COMPARISON: None available. TECHNIQUE: Axial computed tomography images were obtained through the head/brain without intravenous contrast. Radiation dose: Total exam DLP = 1236.83mGy-cm. This CT exam was performed using one or more of the following dose reduction techniques: Automated exposure control, adjustment of the mA and/or kV according to patient size, and/or use of iterative reconstruction technique. FINDINGS: HEMORRHAGE: No intracranial hemorrhage. BRAIN: There is a relatively large approximately 19.3 x 15 by 19 mm elliptical shaped calcification in the right parasagittal superior frontal region bordering the interhemispheric fissure which appears to have thin rim of soft tissue. Findings most likely represent an incidental calcified meningioma. Moderate -significant diffuse/confluent chronic white matter ischemic changes seen extending peripherally into the deep and subcortical white matter both cerebral hemispheres. Suspect mild extension of these changes into the white matter tracts of both basal nuclei Chronic appearing small infarct right cerebellar hemisphere present. Presumed dilated perivascular spaces both inferior basal ganglia/ medial temporal lobes. Moderate generalized volume loss. Vascular calcifications both carotid siphons. The left vertebral artery. VENTRICLES: No evidence of obstructive hydrocephalus CALVARIUM: No acute calvarial fractures PARANASAL SINUSES: Unremarkable as visualized. No significant inflammatory changes. MASTOID AIR CELLS: Subtotal opacification left chamber sphenoid sinus OTHER FINDINGS: Changes of bilateral cataract surgery. IMPRESSION: No acute intracranial hemorrhage. Moderate -significant chronic white matter ischemic changes. . Suspect the mild extension changes into the white matter tracts of both basal nuclei move. 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 Findings discussed with the Dr. Dunne at 9 a.m. with written down and read back verification.
[2016-11-16 09:15] LABS: BASO # 0.3 K/uL (0.0-0.2); BASO % 1.3 % (0.0-2.0); HEMATOCRIT 43.3 % (34.0-47.0); LYMPH # 1.6 K/uL (1.0-4.3); LYMPH % 6.1 % (20.0-40.0); MEAN CELL VOLUME 93.6 fl (81.0-99.0); MEAN CORPUSCULAR HEMOGLOBIN 29.1 pg (27.0-31.0); MEAN CORPUSCULAR HGB CONC 31.1 g/dL (33.0-37.0); MEAN PLATELET VOLUME 8.8 fl (7.2-11.7); MONO # 0.9 K/uL (0.0-0.8); MONO % 3.4 % (0.0-10.0); NEUT # 23.7 K/uL (1.8-7.0); NEUT % 89.2 % (50.0-75.0); PLATELET COUNT 262 K/uL (130-400); RED CELL DISTRIBUTION WIDTH 18.3 % (11.5-14.5); WHITE BLOOD COUNT 26.5 K/uL (4.8-10.8)
[2016-11-16 09:25] LABS: PARTIAL THROMBOPLASTIN TIME 26.9 Seconds (25.6-37.1)
[2016-11-16 09:27] LABS: ALB/GLOB RATIO 1.4 (1.0-2.1); BILIRUBIN,TOTAL 0.7 mg/dl (0.2-1.3); CALCIUM 9.7 mg/dL (8.4-10.2); TOTAL PROTEIN 8.1 G/DL (6.3-8.2)
[2016-11-16 09:29] LABS: VENOUS BLOOD GAS BASE EXCESS -3.4 mmol/L (0.0-2.0); VENOUS BLOOD GAS PCO2 49 mmHg (40-60); VENOUS BLOOD PH 7.29 (7.32-7.43)
[2016-11-16] MEDS ORDERED: Sodium Chloride 0.9% 1,000 ML IV STA ×2 (09:33→12:32)
[2016-11-16 09:41] LABS: TROPONIN I 0.028 ng/mL (0.00-0.120)
[2016-11-16 10:25] LABS: RBC URINE 5 /hpf (0-3); RENAL EPITHELIAL < 1 /hpf (0-3); URINE BILIRUBIN NEGATIVE (NEGATIVE); URINE BLOOD NEGATIVE (NEGATIVE); URINE COLOR YELLOW (YELLOW); URINE GLUCOSE (UA) NEG (Normal); URINE KETONE NEGATIVE (NEGATIVE); URINE LEUKOCYTE ESTERASE TRACE Leu/uL (Negative); URINE PROTEIN 30 mg/dL (NEGATIVE); URINE UROBILINOGEN 0.2-1.0 mg/dL (0.2-1.0); WBC URINE < 1 /hpf (0-5)
[2016-11-16 10:46] LABS: NEUTROPHIL 93 % (42-75); TOTAL CELLS COUNTED 100
--- NOTE | 2016-11-16 10:59 | RAD ---
HISTORY: cva COMPARISON: Comparison chest 04/29/2016 FINDINGS: LUNGS: There appears to be mild central pulmonary vascular congestion -perihilar infiltrates right greater than left. Findings likely represent mild chronic compensated pulmonary edema/CHF. PLEURA: No significant pleural effusion identified, no pneumothorax apparent. CARDIOVASCULAR: Heart size stable. No change bipolar pacemaker/ defibrillator. OSSEOUS STRUCTURES: No significant abnormalities. VISUALIZED UPPER ABDOMEN: Normal. OTHER FINDINGS: Multiple metallic clips left axillary region also again noted consistent with prior lymph node dissection. Clinical with correlation with surgical history recommended. IMPRESSION: Mild central pulmonary vascular congestion -perihilar infiltrates right greater than left. Findings likely represent mild chronic compensated pulmonary edema/CHF.
[2016-11-16 11:10] LABS: BASO # 0.2 K/uL (0.0-0.2); BASO % 0.8 % (0.0-2.0); HEMATOCRIT 43.2 % (34.0-47.0); LYMPH % 4.3 % (20.0-40.0); MEAN CELL VOLUME 93.1 fl (81.0-99.0); MEAN CORPUSCULAR HEMOGLOBIN 29.5 pg (27.0-31.0); MEAN CORPUSCULAR HGB CONC 31.7 g/dL (33.0-37.0); MEAN PLATELET VOLUME 8.8 fl (7.2-11.7); MONO % 4.3 % (0.0-10.0); NEUT # 20.4 K/uL (1.8-7.0); NEUT % 90.6 % (50.0-75.0); RED CELL DISTRIBUTION WIDTH 18.3 % (11.5-14.5); WHITE BLOOD COUNT 22.5 K/uL (4.8-10.8)
[2016-11-16 11:57] LABS: VENOUS BLOOD GAS BASE EXCESS -2.8 mmol/L (0.0-2.0); VENOUS BLOOD GAS PCO2 51 mmHg (40-60); VENOUS BLOOD PH 7.29 (7.32-7.43)
[2016-11-16] MEDS: Metoprolol Succinate 25 mg XL Tab PO SCH (16:18)
[2016-11-16] MEDS: Enoxaparin 30 mg Syringe SC SCH (16:42)
[2016-11-16] MEDS ORDERED: Pantoprazole 40 mg EC Tab PO ONE (16:53)
[2016-11-16] MEDS ORDERED: Enoxaparin 30 mg Syringe SC SCH (17:00)
[2016-11-17] MEDS: Levothyroxine 25 MCG TAB PO SCH (06:07)
[2016-11-17 06:32] LABS: HEMATOCRIT 33.9 % (34.0-47.0); MEAN CELL VOLUME 93.5 fl (81.0-99.0); MEAN CORPUSCULAR HEMOGLOBIN 29.6 pg (27.0-31.0); MEAN CORPUSCULAR HGB CONC 31.6 g/dL (33.0-37.0); RED CELL DISTRIBUTION WIDTH 18.7 % (11.5-14.5); WHITE BLOOD COUNT 11.8 K/uL (4.8-10.8)
[2016-11-17] MEDS ORDERED: Patient's Own Med (Ubidecarenone [Coenzyme Q-10] 200 mg) PO SCH (09:00)
[2016-11-17] MEDS: Multivitamin With Minerals Tab PO SCH (09:30)
[2016-11-17] MEDS: Pantoprazole 40 mg EC Tab PO SCH (09:30)
[2016-11-17] MEDS: Calcium-Vit D 500 mg-200 Units Tab UD PO SCH (09:32)
[2016-11-17] MEDS: Metoprolol Succinate 25 mg XL Tab PO SCH ×4 (09:33→21:24)
[2016-11-17] MEDS: Enoxaparin 30 mg Syringe SC SCH (09:38)
--- NOTE | 2016-11-17 10:19 | CP.PCM.CON ---
History of Present Illness - History of Present Illness History of Present Illness: s/p fall , hx of NIDCMP s/p VT ablation and AICD HPI: Ashanti is a 80-year-old female with known history of ischemic cardiomyopathy status post acute myocardial infarction infarction with occlusion of left anterior descending artery for which she had undergone a balloon angioplasty back in 2012 at [facility]. She has been followed by me over the course of last 4 years. She was admitted 6 months ago to [facility] for evaluation of symptoms of unstable angina. She underwent cardiac catheterization showing nonobstructive coronary artery disease. She had ischemic cardiomyopathy with ejection fraction of 30-35%. During her hospitalization she was noted to have episodes of sustained ventricular tachycardia for which she was evaluated with Holter monitor and subsequently had undergone an ablation for her ventricular tachycardia status post ICD placement. She presented on this admission after sustaining a fall and was unable to get up for 3 hours. I had seen her a week prior to this presentation in my office at which time she was complaining of some imbalance problems. Plan was to get an MRI for evaluation of posterior circulation. From the cardiac standpoint she was fairly stable well compensated with no active symptoms. She does not recall having a syncopal episode but just felt somewhat fatigued and tired and felt herself on the floor. On initial presentation she was noted to have a leukocytosis and was given antibiotics. Subsequently the UA was consistent with possible UTI. Review of Systems - Review of Systems All systems: reviewed and no additional remarkable complaints except - Constitutional Constitutional: As Per HPI, Frequent Falls - EENT Eyes: As Per HPI Ears: As Per HPI Nose/Mouth/Throat: As Per HPI - Breasts Breasts: As Per HPI - Cardiovascular Cardiovascular: As Per HPI, Dyspnea on Exertion - Respiratory Respiratory: As Per HPI - Gastrointestinal Gastrointestinal: As Per HPI - Genitourinary Genitourinary: As Per HPI - Musculoskeletal Musculoskeletal: As Per HPI - Integumentary Integumentary: As Per HPI - Neurological Neurological: As Per HPI, Disequilibrium, Lack of Coordination - Psychiatric Psychiatric: As Per HPI - Endocrine Endocrine: As Per HPI - Hematologic/Lymphatic Hematologic: As Per HPI Past Patient History - Infectious Disease Hx of Infectious Diseases: None - Tetanus Immunizations Tetanus Immunization: Unknown - Past Medical History & Family History Past Medical History?: Yes Pertinent Family History: +ve for CAD and HTN - Past Social History Smoking Status: Former Smoker - CARDIAC Hx Cardiac Disorders: Yes Hx Cardia Arrhythmia: Yes Hx Congestive Heart Failure: Yes Hx Heart Attack: Yes Hx Internal Defibrillator: Yes Hx Pacemaker: Yes Other/Comment: coronary stent - PULMONARY Hx Respiratory Disorders: No Hx Bronchitis: Yes Hx Pneumonia: Yes - NEUROLOGICAL Hx Neurological Disorder: Yes Hx Transient Ischemic Attacks (TIA): Yes - HEENT Hx HEENT Problems: No Hx Cataracts: Yes (sx) - RENAL Hx Chronic Kidney Disease: No - ENDOCRINE/METABOLIC Hx Endocrine Disorders: Yes Hx Hypothyroidism: Yes - HEMATOLOGICAL/ONCOLOGICAL Hx Blood Disorders: No - INTEGUMENTARY Hx Dermatological Problems: No - MUSCULOSKELETAL/RHEUMATOLOGICAL Hx Back Pain: Yes Hx Falls: Yes (today) Hx Osteoarthritis: Yes - GASTROINTESTINAL Hx Gastrointestinal Disorders: No - GENITOURINARY/GYNECOLOGICAL Hx Genitourinary Disorders: No - PSYCHIATRIC Hx Substance Use: No - SURGICAL HISTORY Hx Appendectomy: Yes Hx Cholecystectomy: Yes Hx Coronary Stent: Yes Hx Mastectomy: Yes (left breast) - ANESTHESIA Hx Anesthesia: Yes Hx Anesthesia Reactions: No Hx Malignant Hyperthermia: No Meds Allergies/Adverse Reactions: Allergies Allergy/AdvReac Type Severity Reaction Status Date / Time No Known Allergies Allergy Verified 04/29/16 07:58 - Medications Medications: Current Medications Acetaminophen (Tylenol 325mg Tab) 650 mg PO Q6 PRN PRN Reason: headache Last Admin: 11/17/16 06:06 Dose: 650 mg Anastrozole (Arimidex 1 Mg Tab) 1 mg PO DAILY [facility] Last Admin: 11/17/16 09:36 Dose: 1 mg Ascorbic Acid (Vitamin C 500 Mg Tab) 1,000 mg PO DAILY [facility] Last Admin: 11/17/16 09:30 Dose: 1,000 mg Aspirin (Ecotrin) 81 mg PO DAILY [facility] Last Admin: 11/17/16 09:31 Dose: 81 mg Atorvastatin Calcium (Lipitor) 20 mg PO HS [facility] Last Admin: 11/16/16 22:01 Dose: 20 mg Calcium/Vitamin D (Oyster Shell Calcium/Vitamin D 500 Mg-200 Iu) 1 tab PO DAILY [facility] Last Admin: 11/17/16 09:32 Dose: 1 tab Cholecalciferol (Vitamin D) 2,000 iu PO DAILY [facility] Last Admin: 11/17/16 09:33 Dose: 2,000 iu Clopidogrel Bisulfate (Plavix) 75 mg PO DAILY [facility] Last Admin: 11/17/16 09:45 Dose: Not Given Enoxaparin Sodium (Lovenox) 30 mg SC DAILY [facility] PRN Reason: Protocol Last Admin: 11/17/16 09:38 Dose: 30 mg Furosemide (Lasix) 20 mg PO DAILY [facility] Last Admin: 11/17/16 09:32 Dose: Not Given Home Med (Ubidecarenone [Coenzyme Q-10]) 200 mg PO DAILY [facility] Levothyroxine Sodium (Synthroid) 25 mcg PO DAILY@0630 [facility] Last Admin: 11/17/16 06:07 Dose: 25 mcg Losartan Potassium (Cozaar) 25 mg PO DAILY [facility] Last Admin: 11/17/16 09:31 Dose: 25 mg Metoprolol Succinate (Toprol Xl) 25 mg PO BID [facility] Last Admin: 11/17/16 09:33 Dose: 25 mg Mexiletine HCl (Mexiletine) 150 mg PO Q8H [facility] Last Admin: 11/17/16 05:09 Dose: 150 mg Multivitamins/Minerals (Therapeutic-M Tab) 1 tab PO DAILY [facility] Last Admin: 11/17/16 09:30 Dose: 1 tab Pantoprazole Sodium (Protonix Ec Tab) 40 mg PO DAILY [facility] Last Admin: 11/17/16 09:30 Dose: 40 mg Physical Exam - Constitutional Appears: Well - Head Exam Head Exam: ATRAUMATIC, NORMAL INSPECTION, NORMOCEPHALIC - Eye Exam Eye Exam: EOMI, Normal appearance, PERRL Pupil Exam: NORMAL ACCOMODATION, PERRL - ENT Exam ENT Exam: Mucous Membranes Dry, Normal Exam - Neck Exam Neck exam: Positive for: Normal Inspection - Respiratory Exam Respiratory Exam: Clear to Auscultation Bilateral, NORMAL BREATHING PATTERN - Cardiovascular Exam Cardiovascular Exam: REGULAR RHYTHM, +S1, +S2, Systolic Murmur - GI/Abdominal Exam GI & Abdominal Exam: Normal Bowel Sounds, Soft. absent: Tenderness - Extremities Exam Extremities exam: Positive for: normal inspection - Neurological Exam Neurological exam: Alert, CN II-XII Intact, Oriented x3, Reflexes Normal - Psychiatric Exam Psychiatric exam: Normal Affect, Normal Mood - Skin Skin Exam: Dry, Intact, Normal Color, Warm Results - Vital Signs Recent Vital Signs: Last Vital Signs Temp 98 F 11/17/16 08:03 Pulse 74 11/17/16 09:33 Resp 18 11/17/16 08:03 BP 159/72 H 11/17/16 09:33 Pulse Ox 99 11/17/16 08:03 - Labs Result Diagrams: 11/18/16 14:00 11/18/16 14:00 Assessment & Plan (1) Near syncope Assessment and Plan: etiology most likely secondary to preload dependency from sepsis check orthostatics IVF hydration , rx for UTI Status: Acute (2) Sepsis secondary to UTI Assessment and Plan: abx per primary team Status: Acute (3) CAD (coronary artery disease) Assessment and Plan: stable cont dapt , bb and statins Status: Chronic (4) History of CVA with residual deficit Status: Chronic (5) CHF (congestive heart failure) Assessment and Plan: compensated , euvolemic Status: Chronic Priority: High (6) HLD (hyperlipidemia) Assessment and Plan: statins Status: Chronic (7) HTN (hypertension) Assessment and Plan: bp stable cont losartan and bb Status: Chronic (8) Status post ablation of ventricular arrhythmia Assessment and Plan: off anti-arrhythmics cont with BB will get device interrogated Status: Chronic
[2016-11-17] MEDS ORDERED: Pantoprazole 40 mg EC Tab PO ONE (16:32)
--- NOTE | 2016-11-17 20:15 | CON ---
DATE: 11/17/2016 HISTORY OF PRESENT ILLNESS: This is a 80-year-old woman with past medical history of nonischemic dilated cardiomyopathy status post ablation, ACID, coronary artery disease, NM, dyslipidemia, hypertension, hypothyroidism, chronic low back pain who came into the hospital because she felt out of bed and felt generally weak in her extremities and tremulous, but denies any loss of consciousness. CAT scan of the head showed no acute intracranial abnormality. She is on aspirin, Plavix, and Lipitor for stroke prevention. She has been followed by cardiology. CAT scan of the head shows chronic ischemic changes and chronic small infarct in the right side of the area, but calcified meningioma, but nothing acute. No evidence of any obstructive hydrocephalus. Currently, she is seen in the chair in no acute distress. Vital signs are stable. PAST MEDICAL HISTORY: History of nonischemic dilated cardiomyopathy status post ventricular tachycardia ablation, AICD in place, CAD, NM, dyslipidemia, hypertension, hypothyroidism, chronic lower back. PHYSICAL EXAMINATION: GENERAL: Sitting up in bed in no acute distress. VITAL SIGNS: She was afebrile. Pulse rate was 68, blood pressure 119/73, respiratory rate of 20, oxygen saturation 96% on right nasal cannula. HEENT: Atraumatic and normocephalic. PERRLA. Extraocular muscles intact. NECK: Supple. No JVD. No adenopathy noted. LUNGS: Clear to auscultation. No adventitious sounds. HEART: S1 and S2, normal rate and rhythm. No murmurs, rubs, or gallops. ABDOMEN: Soft, nontender, and nondistended. Bowel sounds are present. EXTREMITIES: No clubbing. No cyanosis. Peripheral 2+ bilaterally. NEUROLOGIC: The patient is alert and oriented to person, place, month, and year. Speech is fluent without any errors. Cranial nerves II through XII are intact. Motor exam: Moves all extremities equally. No pronator seen. Sensory exam: Light touch to pinprick, proprioception, and vibration is intact. DTRs are 2+ throughout, one at the ankles. Coordination: [id number] intact. Gait is deferred for now. She seems slightly deconditioned and has lumbosacral tightness. LABORATORY DATA: Sodium is 142, potassium 5, chloride of 107, carbon dioxide 19, BUN of 22, creatinine of 1.1, random glucose 178. ASSESSMENT: This is a 80-year-old woman with history of nonischemic dilated cardiomyopathy status post ventricular tachycardia, status post saltation status post AICD, status post myocardial infarction, history of coronary artery disease, dyslipidemia, hypertension, hypothyroidism, chronic back pain, osteoporosis, came in with generalized weakness and had fallen to the bed to the grab, but no loss of consciousness. She is chronically deconditioned. Her BUN is slightly elevated and slightly dehydrated. She had elevated leukocytosis. She shows gram growing negative rods preliminary in her urine culture. CAT scan of the head show no acute intracranial abnormality, likely. She does have chronic low back pain with occasional sciatica radiating down the left lower extremity. At this time, her bilateral lower extremity numbness is likely secondary to underlying osteoporosis and deconditioned state. PLAN: 1. We recommend physical and occupational therapy, recommend also to evaluate for underlying leukocytosis given that she has a systematic inflammatory response syndrome. 2. Keep her blood pressure systolic above 120 in the range of 120-140. 3. Continue with aspirin 81, Plavix 75, and Lipitor 20 mg for stroke prevention. 4. Consider CAT scan of the lumbosacral spine to assess for any worsening lumbar stenosis and continue with current present medical management. Thank you for this consult. She is neurologically stable. Dmitri Haque MD
[2016-11-17] MEDS ORDERED: Albuterol-Ipratrop 3 mg / 0.5 (3 ml) UD INH STA (22:16)
[2016-11-18] MEDS: Levothyroxine 25 MCG TAB PO SCH (06:23)
[2016-11-18] MEDS: Pantoprazole 40 mg EC Tab PO SCH (09:23)
[2016-11-18] MEDS: Multivitamin With Minerals Tab PO SCH (09:23)
[2016-11-18] MEDS: Enoxaparin 30 mg Syringe SC SCH (09:25)
[2016-11-18] MEDS: Calcium-Vit D 500 mg-200 Units Tab UD PO SCH (09:27)
[2016-11-18] MEDS: Metoprolol Succinate 25 mg XL Tab PO SCH ×2 (09:30→16:48)
[2016-11-18] MEDS ORDERED: Lactulose 10 gm/15 ml Syrup PO PRN (09:50)
--- NOTE | 2016-11-18 10:26 | CP.PCM.PCO ---
Physician Communication Note - Physician Communication Note Physician Communication Note: NO CONCERN FOR SEIZURE HERE.
--- NOTE | 2016-11-18 14:00 | CP.PCM.HP ---
History of Present Illness - History of Present Illness History of Present Illness: Patient was transferred to the Hospitalist Service by Dr Da Silva today Chief Complaint : fall, weakness HPI: 80 y/o lady with multiple medical problems that includes hx of CVA, HTN, Dilated cardiomyopathy s/p AICD, Multiple bouts of VT s/p Ablation, CAD, COPD , Chronic LBP, Sciatica , OA and Breast cancer s/p mastectomy. She was brought in by ambulance after a fall. The patient states that he was doing well at home, after her last admission in the hospital after an Ablation. She lives alone and does her own ADLs however since she had a heart attack years ago , she started noticing left lower extremity weakness and so she sadler been ambulating with a cane or walker since then. On the day of admission , she was fine, she stood up to go to the bathroom and she slipped and fell landing on her buttocks , she does not remember having LOC nor head trauma. She was unable to get up for 3 hours until a neighbor heard her screaming and came to help. She denies headache, no dizziness, no fever, no headache, no new neuro deficit , no CP, no SOB, no abd pain, no dysuria . She has frequency. Present on Admission - Present on Admission Any Indicators Present on Admission: No Review of Systems - Review of Systems All systems: reviewed and no additional remarkable complaints except - Constitutional Constitutional: absent: Chills, Fever - EENT Eyes: absent: Blurred Vision, Change in Vision, Diplopia Ears: absent: Decreased Hearing, Ear Discharge, Ear Pain, Dizziness Nose/Mouth/Throat: absent: Nasal Congestion, Nasal Discharge, Sore Throat - Cardiovascular Cardiovascular: absent: Chest Pain, Chest Pain at Rest, Lightheadedness, Paroxysmal Nocturnal Dyspnea, Pedal Edema, Rapid Heart Rate - Respiratory Respiratory: absent: Cough, Dyspnea, Hemoptysis - Gastrointestinal Gastrointestinal: absent: Abdominal Pain, Nausea, Vomiting - Genitourinary Genitourinary: Urinary Incontinence, Urinary Frequency. absent: Dysuria, Hematuria - Musculoskeletal Musculoskeletal: Abnormal Gait, Arthralgias, Back Pain, Limited Range of Motion , Muscle Weakness - Integumentary Integumentary: absent: Lesions, Skin Ulcer, Sores - Neurological Neurological: Abnormal Gait, Weakness. absent: Dizziness, Headaches - Psychiatric Psychiatric: absent: Anxiety, Depression - Endocrine Endocrine: absent: Polydipsia, Polyphagia, Polyuria - Hematologic/Lymphatic Hematologic: absent: Easy Bleeding, Easy Bruising, Lymphadenopathy Past Patient History - Infectious Disease Hx of Infectious Diseases: None - Tetanus Immunizations Tetanus Immunization: Unknown - Past Medical History & Family History Past Medical History?: Yes Past Family History: Reviewed and not pertinent - Past Social History Smoking Status: Former Smoker Chewing Tobacco Use: No Cigar Use: No Occupation: retired Alcohol: None Drugs: Denies Home Situation {Lives}: Alone Domestic Violence: Negative - CARDIAC Hx Cardiac Disorders: Yes Hx Cardia Arrhythmia: Yes Hx Congestive Heart Failure: Yes Hx Heart Attack: Yes Hx Hypertension: Yes Hx Internal Defibrillator: Yes Hx Pacemaker: Yes Other/Comment: coronary stent - PULMONARY Hx Respiratory Disorders: No Hx Chronic Obstructive Pulmonary Disease (COPD): Yes Hx Pneumonia: Yes - NEUROLOGICAL Hx Neurological Disorder: Yes HX Cerebrovascular Accident: Yes Hx Transient Ischemic Attacks (TIA): Yes - HEENT Hx Cataracts: Yes (sx) - RENAL Hx Chronic Kidney Disease: No - ENDOCRINE/METABOLIC Hx Endocrine Disorders: Yes Hx Hypothyroidism: Yes - HEMATOLOGICAL/ONCOLOGICAL Hx Blood Disorders: No - INTEGUMENTARY Hx Dermatological Problems: No - MUSCULOSKELETAL/RHEUMATOLOGICAL Hx Back Pain: Yes Hx Degenerative Joint Disease: Yes Hx Falls: Yes (today) Hx Osteoarthritis: Yes Hx Spinal Stenosis: Yes Hx Unsteady Gait: Yes - GASTROINTESTINAL Hx Gastrointestinal Disorders: No - PSYCHIATRIC Hx Psychophysiologic Disorder: No Hx Substance Use: No - SURGICAL HISTORY Hx Appendectomy: Yes Hx Cholecystectomy: Yes Hx Mastectomy: Yes (left breast) Other/Comment: AICD placement, Ablation - ANESTHESIA Hx Anesthesia: Yes Hx Anesthesia Reactions: No Hx Malignant Hyperthermia: No Meds Allergies/Adverse Reactions: Allergies Allergy/AdvReac Type Severity Reaction Status Date / Time No Known Allergies Allergy Verified 04/29/16 07:58 Physical Exam - Constitutional Appears: No Acute Distress, Chronically Ill - Head Exam Head Exam: NORMAL INSPECTION, NORMOCEPHALIC - Eye Exam Eye Exam: EOMI, Normal appearance Pupil Exam: NORMAL ACCOMODATION - ENT Exam ENT Exam: Mucous Membranes Moist, Normal External Ear Exam - Neck Exam Neck exam: Positive for: Full Rom. Negative for: Meningismus - Respiratory Exam Respiratory Exam: Rales, NORMAL BREATHING PATTERN. absent: Wheezes, Respiratory Distress - Cardiovascular Exam Cardiovascular Exam: REGULAR RHYTHM, +S1, +S2 Additional comments: Right AICD - GI/Abdominal Exam GI & Abdominal Exam: Normal Bowel Sounds, Soft. absent: Tenderness - Extremities Exam Extremities exam: Positive for: normal capillary refill. Negative for: calf tenderness, pedal edema - Back Exam Back exam: absent: CVA tenderness (L), CVA tenderness (R), paraspinal tenderness , vertebral tenderness - Neurological Exam Neurological exam: Alert, CN II-XII Intact, Oriented x3, Reflexes Normal - Psychiatric Exam Psychiatric exam: Normal Affect, Normal Mood - Skin Skin Exam: Dry, Normal Color, Warm Results - Vital Signs Recent Vital Signs: Last Vital Signs Temp 98.2 F 11/18/16 12:29 Pulse 69 11/18/16 13:12 Resp 20 11/18/16 12:29 BP 140/73 11/18/16 13:12 Pulse Ox 95 11/18/16 12:29 - Labs Result Diagrams: 11/18/16 14:00 11/18/16 14:00 - EKG Data EKG Interpreted by: Myself EKG shows normal: Sinus rhythm Rate: Normal - EKG Data When Compared to Previous EKG: No Significant Change - Imaging and Cardiology CT scan - head Status: Image reviewed by me, Report reviewed by me Additional comment: Meningioma, old infarct cerebellar Chest x-ray Status: Image reviewed by me Assessment & Plan (1) Sepsis secondary to UTI Status: Acute (2) Physical deconditioning Status: Acute (3) History of CVA with residual deficit Status: Chronic (4) Status post ablation of ventricular arrhythmia Status: Chronic (5) HTN (hypertension) Status: Chronic (6) HX: breast cancer Status: Chronic (7) Cardiomyopathy Status: Chronic (8) CAD (coronary artery disease) Status: Chronic (9) COPD (chronic obstructive pulmonary disease) Status: Chronic (10) Hypothyroidism Status: Chronic (11) DVT prophylaxis Status: Acute - Assessment and Plan (Free Text) Assessment: 80 y/o lady with multiple medical problems - HTN< CAD< Cardiomyopathy, CVA, COPD , Breast Cancer, DDD, OA was brought in after a fll at home (1) Sepsis secondary to UTI ( POA) Status: Acute Pt came with elevated WBC to 28k, elevated Lactate Blood c/s; negative so far Urine /c/s: Citrobacter diversus sensitive to Ceftriaxone cont IV ceftriaxone Leukocytosis trending down 2. Fall at home likely sec to Physical deconditioning PT eval Hip xray CT of head : neg hemorrhage/fracture Neuro consulted (3) History of CVA with residual deficit , left LE weakness Status: Chronic PT eval Pt walks with a walker at home (4) Status post ablation of ventricular arrhythmia Status: Chronic hx of recurrent VTs - ablation done in July at [place] Dr Da Silva on consult (5) HTN (hypertension) Status: Chronic cont Metoprolol, Losartan, lasix (6) HX: breast cancer s/p Left Mastectomy Status: Chronic cont Arimidex (7) Cardiomyopathy s/p AICD Status: Chronic cont Lasix , Losartan and Toprol (8) CAD (coronary artery disease) Status: Chronic cont ASA,statin, BB, ARB (9) COPD (chronic obstructive pulmonary disease) Status: Chronic Duonebs prn (10) Hypothyroidism Status: Chronic cont Levothyroxine (11) DVT prophylaxis Status: Acute Lovenox Decision To Admit - Pt Status Changed To: Hospital Disposition Of: Inpatient - Admit Certification Admit to Inpatient:: After my assessment, the patient will require hospitalization for at least two midnights. This is because of the severity of symptoms shown, intensity of services needed, and/or the medical risk in this patient being treated as an outpatient. - . Bed Request Type: Telemetry Admitting Physician: Allison Meehan
[2016-11-18 14:06] LABS: BASO # 0.1 K/uL (0.0-0.2); BASO % 0.6 % (0.0-2.0); EOS # 0.1 K/uL (0.0-0.7); EOS % 1.1 % (0.0-4.0); HEMATOCRIT 36.4 % (34.0-47.0); LYMPH # 1.4 K/uL (1.0-4.3); LYMPH % 11.3 % (20.0-40.0); MEAN CORPUSCULAR HEMOGLOBIN 29.8 pg (27.0-31.0); MEAN PLATELET VOLUME 8.8 fl (7.2-11.7); MONO # 1.2 K/uL (0.0-0.8); MONO % 9.8 % (0.0-10.0); NEUT # 9.9 K/uL (1.8-7.0); NEUT % 77.2 % (50.0-75.0); RED CELL DISTRIBUTION WIDTH 18.2 % (11.5-14.5); WHITE BLOOD COUNT 12.8 K/uL (4.8-10.8)
[2016-11-18 14:20] LABS: ALB/GLOB RATIO 1.4 (1.0-2.1); ALKALINE PHOSPHATASE 53 U/L (38-126); ALT/SGPT 31 U/L (9-52); AST/SGOT 29 U/L (14-36); BILIRUBIN,TOTAL 0.8 mg/dl (0.2-1.3); BLOOD UREA NITROGEN 16 mg/dl (7-17); CARBON DIOXIDE 21 mmol/L (22-30); CHLORIDE 105 mmol/L (98-107); GFR AFRICAN-AMERICAN > 60; GLUCOSE,RANDOM 169 mg/dL (65-105); SODIUM 138 mmol/l (132-148)
[2016-11-18 14:37] LABS: T4 7.79 ug/dl (5.5-11.0)
[2016-11-18 14:50] LABS: THYROID STIMULATING HORMONE 1.88 mIU/ML (0.46-4.68)
--- NOTE | 2016-11-18 15:20 | CT ---
PROCEDURE: CT Lumbar Spine without contrast HISTORY: Low back pain COMPARISON: None. TECHNIQUE: Axial computed tomography images were obtained of the lumbar spine without the use of intravenous contrast. Coronal and sagittal reformatted images were created and reviewed. Radiation dose: Total exam DLP = 1347.89 mGy-cm. This CT exam was performed using one or more of the following dose reduction techniques: Automated exposure control, adjustment of the mA and/or kV according to patient size, and/or use of iterative reconstruction technique. FINDINGS: VERTEBRAE: There is levoscoliosis in the lower lumbar spine. There is degenerative 5 mm retrolisthesis of L2 on L3. There is diffuse bone demineralization. There is no acute fracture or bone destruction. DISCS/SPINAL CANAL/NEURAL FORAMINA: L1-2: Posterior disc bulge with superimposed right foraminal disc protrusion in conjunction with mild facet arthropathy result in mild right neural foraminal stenosis. No spinal canal stenosis. L2-3: Diffuse posterior disc bulge without central spinal canal stenosis. Mild bilateral facet arthropathy contribute to severe right and moderate left neural foraminal stenosis. L3-4: Diffuse posterior disc bulge without central spinal canal stenosis. Mild bilateral facet arthropathy contributes to moderate neural foraminal stenosis, worse on the right. L4-5: Diffuse posterior disc bulge in conjunction with mild ligamentum flavum infolding result in mild spinal canal stenosis. Severe bilateral facet arthropathy contributes to [id number] right and severe left neural foraminal stenosis. L5-S1: No large disc herniation, neural foraminal or spinal canal stenosis. PARASPINAL SOFT TISSUES: The paraspinous soft tissues are normal. Imaged portion of the retroperitoneum is within normal limits. OTHER FINDINGS: None. IMPRESSION: 1. No acute fracture, spondylolysis or spondylolisthesis. 2. Advanced multilevel degenerative disc disease in the lower lumbar spine, worse at L4-5 with mild spinal canal stenosis, [id number] right and severe left neural foraminal stenosis. 3. Additional comments as described above.
--- NOTE | 2016-11-18 22:46 | CP.PCM.PN ---
Subjective - Date & Time of Evaluation Date of Evaluation: 11/18/16 Time of Evaluation: 22:00 - Subjective Subjective: clinically improving no fevers U/A +ve for UTI Objective - Vital Signs/Intake and Output Vital Signs (last 24 hours): Temp Pulse Resp BP Pulse Ox 97.6 F 81 20 162/92 H 95 11/18/16 19:09 11/18/16 19:09 11/18/16 19:09 11/18/16 19:09 11/18/16 19:09 - Medications Medications: Current Medications Acetaminophen (Tylenol 325mg Tab) 650 mg PO Q6 PRN PRN Reason: headache Last Admin: 11/17/16 06:06 Dose: 650 mg Anastrozole (Arimidex 1 Mg Tab) 1 mg PO DAILY [facility] Last Admin: 11/18/16 09:29 Dose: 1 mg Ascorbic Acid (Vitamin C 500 Mg Tab) 1,000 mg PO DAILY [facility] Last Admin: 11/18/16 09:27 Dose: 1,000 mg Aspirin (Ecotrin) 81 mg PO DAILY [facility] Last Admin: 11/18/16 09:24 Dose: 81 mg Atorvastatin Calcium (Lipitor) 20 mg PO HS [facility] Last Admin: 11/18/16 21:33 Dose: 20 mg Calcium/Vitamin D (Oyster Shell Calcium/Vitamin D 500 Mg-200 Iu) 1 tab PO DAILY [facility] Last Admin: 11/18/16 09:27 Dose: 1 tab Cholecalciferol (Vitamin D) 2,000 iu PO DAILY [facility] Last Admin: 11/18/16 09:32 Dose: 2,000 iu Clopidogrel Bisulfate (Plavix) 75 mg PO DAILY [facility] Last Admin: 11/18/16 09:26 Dose: Not Given Enoxaparin Sodium (Lovenox) 30 mg SC DAILY [facility] PRN Reason: Protocol Last Admin: 11/18/16 09:25 Dose: 30 mg Furosemide (Lasix) 20 mg PO DAILY [facility] Last Admin: 11/18/16 09:25 Dose: Not Given Home Med (Ubidecarenone [Coenzyme Q-10]) 200 mg PO DAILY [facility] Ceftriaxone Sodium 1 gm/ (Sodium Chloride) 100 mls @ 100 mls/hr IVPB DAILY [facility] Last Admin: 11/18/16 15:35 Dose: 100 mls/hr Lactulose (Enulose) 10 gm PO DAILY PRN PRN Reason: Constipation Last Admin: 11/18/16 13:12 Dose: 10 gm Levothyroxine Sodium (Synthroid) 25 mcg PO DAILY@0630 [facility] Last Admin: 11/18/16 06:23 Dose: 25 mcg Losartan Potassium (Cozaar) 25 mg PO DAILY [facility] Last Admin: 11/18/16 09:24 Dose: 25 mg Metoprolol Succinate (Toprol Xl) 50 mg PO BID [facility] Multivitamins/Minerals (Therapeutic-M Tab) 1 tab PO DAILY [facility] Last Admin: 11/18/16 09:23 Dose: 1 tab Pantoprazole Sodium (Protonix Ec Tab) 40 mg PO DAILY [facility] Last Admin: 11/18/16 09:23 Dose: 40 mg - Labs Labs: 11/18/16 14:00 11/18/16 14:00 PT 10.2 Seconds (9.8-13.1) 11/16/16 09:00 INR 1.0 (0.9-1.2) 11/16/16 09:00 APTT 26.9 Seconds (25.6-37.1) 11/16/16 09:00 - Constitutional Appears: Well - Head Exam Head Exam: ATRAUMATIC, NORMAL INSPECTION, NORMOCEPHALIC - Eye Exam Eye Exam: EOMI, Normal appearance, PERRL Pupil Exam: NORMAL ACCOMODATION, PERRL - ENT Exam ENT Exam: Mucous Membranes Moist, Normal Exam - Neck Exam Neck Exam: Full ROM, Normal Inspection. absent: Lymphadenopathy - Respiratory Exam Respiratory Exam: Clear to Ausculation Bilateral, NORMAL BREATHING PATTERN - Cardiovascular Exam Cardiovascular Exam: REGULAR RHYTHM, +S1, +S2, Murmur - GI/Abdominal Exam GI & Abdominal Exam: Soft, Normal Bowel Sounds. absent: Tenderness - Extremities Exam Extremities Exam: Full ROM, Normal Capillary Refill, Normal Inspection. absent : Joint Swelling, Pedal Edema - Back Exam Back Exam: NORMAL INSPECTION - Neurological Exam Neurological Exam: Alert, Awake, CN II-XII Intact, Motor Sensory Deficit, Oriented x3 Neuro motor strength exam: Left Lower Extremity: 4 (prior cva residual weakness ) - Psychiatric Exam Psychiatric exam: Normal Affect, Normal Mood - Skin Skin Exam: Dry, Intact, Normal Color, Warm Assessment and Plan (1) Near syncope Assessment & Plan: plan for transfer to TCU in 1-2 days post abx course completion Status: Acute (2) Physical deconditioning Status: Acute (3) Sepsis secondary to UTI Assessment & Plan: abx per primary team Status: Acute (4) CAD (coronary artery disease) Status: Chronic (5) CHF (congestive heart failure) Assessment & Plan: compensated cont bb, arb, lasix add aldactone 25mg po daily Status: Chronic (6) HLD (hyperlipidemia) Status: Chronic (7) HTN (hypertension) Status: Chronic (8) Status post ablation of ventricular arrhythmia Assessment & Plan: device interrogation bb Status: Chronic
[2016-11-19] MEDS: Levothyroxine 25 MCG TAB PO SCH (06:40)
[2016-11-19] MEDS: Enoxaparin 30 mg Syringe SC SCH (09:13)
[2016-11-19] MEDS: Calcium-Vit D 500 mg-200 Units Tab UD PO SCH (09:13)
[2016-11-19] MEDS: Pantoprazole 40 mg EC Tab PO SCH (09:13)
[2016-11-19] MEDS: Multivitamin With Minerals Tab PO SCH (09:13)
[2016-11-19] MEDS: Metoprolol Succinate 50 mg XL Tab PO SCH ×2 (09:14→16:11)
--- NOTE | 2016-11-19 11:40 | CP.PCM.PN ---
Subjective - Date & Time of Evaluation Date of Evaluation: 11/19/16 Time of Evaluation: 11:00 - Subjective Subjective: No fever no dysuria feels better denies CP no SOB no abd pain discussed plan for d/c to TCU in am after 3 MN and pt is agreeable Objective - Vital Signs/Intake and Output Vital Signs (last 24 hours): Temp Pulse Resp BP Pulse Ox 97.4 F L 84 20 175/98 H 94 L 11/19/16 08:00 11/19/16 09:14 11/19/16 08:00 11/19/16 09:14 11/19/16 08:00 - Medications Medications: Current Medications Acetaminophen (Tylenol 325mg Tab) 650 mg PO Q6 PRN PRN Reason: headache Last Admin: 11/18/16 22:52 Dose: 650 mg Anastrozole (Arimidex 1 Mg Tab) 1 mg PO DAILY [facility] Last Admin: 11/19/16 09:11 Dose: 1 mg Ascorbic Acid (Vitamin C 500 Mg Tab) 1,000 mg PO DAILY [facility] Last Admin: 11/19/16 09:14 Dose: 1,000 mg Aspirin (Ecotrin) 81 mg PO DAILY [facility] Last Admin: 11/19/16 09:12 Dose: 81 mg Atorvastatin Calcium (Lipitor) 20 mg PO HS [facility] Last Admin: 11/18/16 21:33 Dose: 20 mg Calcium/Vitamin D (Oyster Shell Calcium/Vitamin D 500 Mg-200 Iu) 1 tab PO DAILY [facility] Last Admin: 11/19/16 09:13 Dose: 1 tab Cholecalciferol (Vitamin D) 2,000 iu PO DAILY [facility] Last Admin: 11/19/16 09:14 Dose: 2,000 iu Clopidogrel Bisulfate (Plavix) 75 mg PO DAILY [facility] Last Admin: 11/19/16 09:37 Dose: Not Given Enoxaparin Sodium (Lovenox) 30 mg SC DAILY [facility] PRN Reason: Protocol Last Admin: 11/19/16 09:13 Dose: 30 mg Furosemide (Lasix) 20 mg PO DAILY [facility] Last Admin: 11/19/16 09:12 Dose: 20 mg Home Med (Ubidecarenone [Coenzyme Q-10]) 200 mg PO DAILY [facility] Ceftriaxone Sodium 1 gm/ (Sodium Chloride) 100 mls @ 100 mls/hr IVPB DAILY [facility] Last Admin: 11/19/16 09:13 Dose: 100 mls/hr Lactulose (Enulose) 10 gm PO DAILY PRN PRN Reason: Constipation Last Admin: 11/18/16 13:12 Dose: 10 gm Levothyroxine Sodium (Synthroid) 25 mcg PO DAILY@0630 [facility] Last Admin: 11/19/16 06:40 Dose: 25 mcg Losartan Potassium (Cozaar) 25 mg PO DAILY [facility] Last Admin: 11/19/16 09:12 Dose: 25 mg Metoprolol Succinate (Toprol Xl) 50 mg PO BID [facility] Last Admin: 11/19/16 09:14 Dose: 50 mg Multivitamins/Minerals (Therapeutic-M Tab) 1 tab PO DAILY [facility] Last Admin: 11/19/16 09:13 Dose: 1 tab Pantoprazole Sodium (Protonix Ec Tab) 40 mg PO DAILY [facility] Last Admin: 11/19/16 09:13 Dose: 40 mg - Labs Labs: 11/18/16 14:00 11/18/16 14:00 PT 10.2 Seconds (9.8-13.1) 11/16/16 09:00 INR 1.0 (0.9-1.2) 11/16/16 09:00 APTT 26.9 Seconds (25.6-37.1) 11/16/16 09:00 - Constitutional Appears: No Acute Distress, Chronically Ill - Head Exam Head Exam: NORMAL INSPECTION, NORMOCEPHALIC - Eye Exam Eye Exam: EOMI, Normal appearance Pupil Exam: NORMAL ACCOMODATION - ENT Exam ENT Exam: Mucous Membranes Moist, Normal External Ear Exam - Neck Exam Neck exam: Positive for: Full Rom. Negative for: Meningismus - Respiratory Exam Respiratory Exam: minimal Rales bases, NORMAL BREATHING PATTERN. absent: Wheezes, Respiratory Distress - Cardiovascular Exam Cardiovascular Exam: REGULAR RHYTHM, +S1, +S2 Additional comments: Right AICD Left Breast: s/p Mastectomy - GI/Abdominal Exam GI & Abdominal Exam: Normal Bowel Sounds, Soft. absent: Tenderness - Extremities Exam Extremities exam: Positive for: normal capillary refill. Negative for: calf tenderness, pedal edema - Back Exam Back exam: absent: CVA tenderness (L), CVA tenderness (R), paraspinal tenderness , vertebral tenderness - Neurological Exam Neurological exam: Alert, CN II-XII Intact, Oriented x3, Reflexes Normal moves all ext weakness LLE compared to right ( old deficit accdg to pt) - Psychiatric Exam Psychiatric exam: Normal Affect, Normal Mood - Skin Skin Exam: Dry, Normal Color, Warm Assessment and Plan (1) Sepsis secondary to UTI Status: Acute (2) Physical deconditioning Status: Acute (3) History of CVA with residual deficit Status: Chronic (4) Status post ablation of ventricular arrhythmia Status: Chronic (5) HTN (hypertension) Status: Chronic (6) HX: breast cancer Status: Chronic (7) Cardiomyopathy Status: Chronic (8) CAD (coronary artery disease) Status: Chronic (9) COPD (chronic obstructive pulmonary disease) Status: Chronic (10) Hypothyroidism Status: Chronic (11) DVT prophylaxis Status: Acute - Assessment and Plan (Free Text) Assessment: 80 y/o lady with multiple medical problems - HTN< CAD< Cardiomyopathy, CVA, COPD , Breast Cancer, DDD, OA was brought in after a fll at home (1) Sepsis secondary to UTI ( POA) Status: Acute Pt came with elevated WBC to 28k, elevated Lactate Blood c/s; negative so far Urine /c/s: Citrobacter diversus sensitive to Ceftriaxone cont IV ceftriaxone Leukocytosis trending down 2. Fall at home likely sec to Physical deconditioning, ( acute CVA , Seizure ruled out) PT eval- rec TCU- d/c to TCU in am Hip xray CT of head : neg hemorrhage/fracture Neuro consulted - felt this was just Deconditioning, (3) History of CVA with residual deficit , left LE weakness Status: Chronic PT eval Pt walks with a walker at home (4) Status post ablation of ventricular arrhythmia Status: Chronic hx of recurrent VTs - ablation done in July at [facility] on consult (5) HTN (hypertension) Status: Chronic cont Metoprolol, Losartan, lasix (6) HX: breast cancer s/p Left Mastectomy Status: Chronic cont Arimidex (7) Cardiomyopathy s/p AICD Chronic CHF, systolic and diastolic dysfunction Status: Chronic cont Lasix , Losartan and Toprol (8) CAD (coronary artery disease) Status: Chronic cont ASA,statin, BB, ARB (9) COPD (chronic obstructive pulmonary disease) Status: Chronic Duonebs prn (10) Hypothyroidism Status: Chronic cont Levothyroxine (11) DVT prophylaxis Status: Acute Lovenox
--- NOTE | 2016-11-19 14:31 | PQF GENQUE ---
Dr. Meehan, (1) CHF ruled in versus CHF ruled out? (2) If CHF ruled in: Acuity and Type? if known OR: Hx. of CHF: not a current dx. and not chronic OR: Unable to determine OR: Other explanation of clinical findings ER note: Judicious administration of IV fluids due to CHF on xray H and P: History of CHF . CXR: Findings likely represent mild chronic compensated pulmonary edema/CHF Lasix PO This form is a permanent part of the medical record Clarification of your documentation is requested to better reflect the severity of illness and intensity of treatment of your patient. Indicators present [] Specify: [] [] Specify: [] [] Specify: [] [] Specify: [] Location in the medical record that reflects the above clinical findings: [] Treatment Provided: [] PHYSICIAN'S RESPONSE Severe Cardiomyopathy , Chronic CHF, systolic and diastolic dysfunction Based on your medical judgment of the clinical indicators outlined above please clarify the following: [] Practitioner response [] If unable to determine, please check the box, sign and date. Present On Admission (POA) Indicator: [] Present at the time of admission [] Not present at the time of admission [] Clinically Undetermined In responding to this query, please exercise your independent professional judgment. The fact that a question is asked does not imply that any particular answer is desired or expected. Thank you for your clarification on this documentation. If you have any questions please call. * Thank you, Isa Davis RN BSN ext. #[phone] MTDD
[2016-11-20] MEDS: Levothyroxine 25 MCG TAB PO SCH (05:30)
--- NOTE | 2016-11-20 06:17 | CP.PCM.PN ---
Subjective - Date & Time of Evaluation Date of Evaluation: 11/19/16 Time of Evaluation: 22:30 - Subjective Subjective: feeling tired and lethargic had episode of SOB yesterday Objective - Vital Signs/Intake and Output Vital Signs (last 24 hours): Temp Pulse Resp BP Pulse Ox 97.7 F 66 20 148/70 96 11/20/16 05:34 11/20/16 05:34 11/20/16 05:34 11/20/16 05:34 11/20/16 05:34 Intake and Output: 11/19/16 11/20/16 18:59 06:59 Intake Total 1500 Balance 1500 - Medications Medications: Current Medications Acetaminophen (Tylenol 325mg Tab) 650 mg PO Q6 PRN PRN Reason: headache Last Admin: 11/20/16 00:25 Dose: 650 mg Anastrozole (Arimidex 1 Mg Tab) 1 mg PO DAILY [facility] Last Admin: 11/19/16 09:11 Dose: 1 mg Ascorbic Acid (Vitamin C 500 Mg Tab) 1,000 mg PO DAILY [facility] Last Admin: 11/19/16 09:14 Dose: 1,000 mg Aspirin (Ecotrin) 81 mg PO DAILY [facility] Last Admin: 11/19/16 09:12 Dose: 81 mg Atorvastatin Calcium (Lipitor) 20 mg PO HS [facility] Last Admin: 11/19/16 21:29 Dose: 20 mg Calcium/Vitamin D (Oyster Shell Calcium/Vitamin D 500 Mg-200 Iu) 1 tab PO DAILY [facility] Last Admin: 11/19/16 09:13 Dose: 1 tab Cholecalciferol (Vitamin D) 2,000 iu PO DAILY [facility] Last Admin: 11/19/16 09:14 Dose: 2,000 iu Clopidogrel Bisulfate (Plavix) 75 mg PO DAILY [facility] Last Admin: 11/19/16 09:37 Dose: Not Given Furosemide (Lasix) 20 mg PO DAILY [facility] Last Admin: 11/19/16 09:12 Dose: 20 mg Home Med (Ubidecarenone [Coenzyme Q-10]) 200 mg PO DAILY [facility] Ceftriaxone Sodium 1 gm/ (Sodium Chloride) 100 mls @ 100 mls/hr IVPB DAILY [facility] Last Admin: 11/19/16 09:13 Dose: 100 mls/hr Lactulose (Enulose) 10 gm PO DAILY PRN PRN Reason: Constipation Last Admin: 09/06/17 13:12 Dose: 10 gm Levothyroxine Sodium (Synthroid) 25 mcg PO DAILY@0630 [facility] Last Admin: 11/20/16 05:30 Dose: 25 mcg Losartan Potassium (Cozaar) 25 mg PO DAILY [facility] Last Admin: 11/19/16 09:12 Dose: 25 mg Metoprolol Succinate (Toprol Xl) 50 mg PO BID [facility] Last Admin: 11/19/16 16:11 Dose: 50 mg Multivitamins/Minerals (Therapeutic-M Tab) 1 tab PO DAILY [facility] Last Admin: 11/19/16 09:13 Dose: 1 tab Pantoprazole Sodium (Protonix Ec Tab) 40 mg PO DAILY [facility] Last Admin: 11/19/16 09:13 Dose: 40 mg - Labs Labs: 11/18/16 14:00 11/18/16 14:00 PT 10.2 Seconds (9.8-13.1) 11/16/16 09:00 INR 1.0 (0.9-1.2) 11/16/16 09:00 APTT 26.9 Seconds (25.6-37.1) 11/16/16 09:00 - Constitutional Appears: Well - Head Exam Head Exam: ATRAUMATIC, NORMAL INSPECTION, NORMOCEPHALIC - Eye Exam Eye Exam: EOMI, Normal appearance, PERRL Pupil Exam: NORMAL ACCOMODATION, PERRL - ENT Exam ENT Exam: Mucous Membranes Moist, Normal Exam - Neck Exam Neck Exam: Full ROM, Normal Inspection. absent: Lymphadenopathy - Respiratory Exam Respiratory Exam: Clear to Ausculation Bilateral, NORMAL BREATHING PATTERN - Cardiovascular Exam Cardiovascular Exam: REGULAR RHYTHM, +S1, +S2, Murmur - GI/Abdominal Exam GI & Abdominal Exam: Soft, Normal Bowel Sounds. absent: Tenderness - Extremities Exam Extremities Exam: Full ROM, Normal Capillary Refill, Normal Inspection. absent : Joint Swelling, Pedal Edema - Neurological Exam Neurological Exam: Alert, Awake, CN II-XII Intact, Oriented x3 - Psychiatric Exam Psychiatric exam: Normal Affect, Normal Mood - Skin Skin Exam: Dry, Intact, Normal Color, Warm Assessment and Plan (1) Near syncope Status: Acute (2) Physical deconditioning Status: Acute (3) Sepsis secondary to UTI Status: Acute (4) CAD (coronary artery disease) Status: Chronic (5) CHF (congestive heart failure) Status: Chronic (6) HLD (hyperlipidemia) Status: Chronic (7) HTN (hypertension) Status: Chronic (8) Status post ablation of ventricular arrhythmia Status: Chronic
[2016-11-20 06:51] LABS: BLOOD UREA NITROGEN 16 mg/dl (7-17); CALCIUM 8.9 mg/dL (8.4-10.2); CARBON DIOXIDE 25 mmol/L (22-30); CHLORIDE 105 mmol/L (98-107); GFR AFRICAN-AMERICAN > 60; GLUCOSE,RANDOM 101 mg/dL (65-105); POTASSIUM 3.8 MMOL/L (3.6-5.0); SODIUM 139 mmol/l (132-148)
[2016-11-20 08:13] VITALS: RESP 18
--- NOTE | 2016-11-20 09:16 | CP.PCM.DIS ---
Provider - Provider Date of Admission: 11/17/16 09:05 Attending physician: Allison Meehan MD Primary care physician: Dr. Da Silva Consults: cardiology consult Time Spent in preparation of Discharge (in minutes): 20 Hospital Course - Lab Results Lab Results: Most Recent Lab Values WBC 12.8 K/uL (4.8-10.8) H 11/18/16 14:00 RBC 3.91 Mil/uL (3.80-5.20) 11/18/16 14:00 Hgb 11.7 g/dL (12.0-16.0) L 11/18/16 14:00 Hct 36.4 % (34.0-47.0) 11/18/16 14:00 MCV 93.0 fl (81.0-99.0) 11/18/16 14:00 MCH 29.8 pg (27.0-31.0) 11/18/16 14:00 MCHC 32.0 g/dL (33.0-37.0) L 11/18/16 14:00 RDW 18.2 % (11.5-14.5) H 11/18/16 14:00 Plt Count 208 K/uL (130-400) 11/18/16 14:00 MPV 8.8 fl (7.2-11.7) 11/18/16 14:00 Neut % (Auto) 77.2 % (50.0-75.0) H 11/18/16 14:00 Lymph % (Auto) 11.3 % (20.0-40.0) L 11/18/16 14:00 [place] % (Auto) 9.8 % (0.0-10.0) 11/18/16 14:00 Eos % (Auto) 1.1 % (0.0-4.0) 11/18/16 14:00 Baso % (Auto) 0.6 % (0.0-2.0) 11/18/16 14:00 Neut # 9.9 K/uL (1.8-7.0) H 11/18/16 14:00 Lymph # 1.4 K/uL (1.0-4.3) 11/18/16 14:00 [place] # 1.2 K/uL (0.0-0.8) H 11/18/16 14:00 Eos # 0.1 K/uL (0.0-0.7) 11/18/16 14:00 Baso # 0.1 K/uL (0.0-0.2) 11/18/16 14:00 Neutrophils % (Manual) 93 % (42-75) H 11/16/16 09:00 Lymphocytes % (Manual) 5 % (20-50) L 11/16/16 09:00 Monocytes % (Manual) 2 % (0-10) 11/16/16 09:00 Platelet Estimate Normal (NORMAL) 11/16/16 09:00 Anisocytosis (manual) Slight 11/16/16 09:00 Ovalocytes Slight 11/16/16 09:00 PT 10.2 Seconds (9.8-13.1) 11/16/16 09:00 INR 1.0 (0.9-1.2) 11/16/16 09:00 APTT 26.9 Seconds (25.6-37.1) 11/16/16 09:00 pO2 16 mm/Hg (30-55) L 11/16/16 12:30 VBG pH 7.29 (7.32-7.43) L 11/16/16 12:30 VBG pCO2 51 mmHg (40-60) 11/16/16 12:30 VBG HCO3 20.2 mmol/L 11/16/16 12:30 VBG Total CO2 26.1 mmol/L (22-28) 11/16/16 12:30 VBG O2 Sat (Calc) 15.2 % (40-65) L 11/16/16 12:30 VBG Base Excess -2.8 mmol/L (0.0-2.0) L 11/16/16 12:30 VBG Potassium 4.3 mmol/L (3.6-5.2) 11/16/16 12:30 A-a O2 Difference 70.0 mm/Hg 11/16/16 12:30 Sodium 142.0 mmol/L (132-148) 11/16/16 12:30 Chloride 103.0 mmol/L (98-107) 11/16/16 12:30 Glucose 156 mg/dL (65-105) H 11/16/16 12:30 Lactate 5.2 mmol/L (0.7-2.1) H* 11/16/16 12:30 FiO2 21.0 % 11/16/16 12:30 Blood Gas Comments Lactate 5.4 11/16/16 09:23 Crit Value Called To Amauri de la fuente 11/16/16 12:30 Crit Value Called By 15 11/16/16 12:30 Crit Value Read Back Y 11/16/16 12:30 Blood Gas Notified Time 1156 11/16/16 12:30 Sodium 139 mmol/l (132-148) 11/20/16 06:05 Potassium 3.8 MMOL/L (3.6-5.0) 11/20/16 06:05 Chloride 105 mmol/L (98-107) 11/20/16 06:05 Carbon Dioxide 25 mmol/L (22-30) 11/20/16 06:05 Anion Gap 13 (10-20) 11/20/16 06:05 BUN 16 mg/dl (7-17) 11/20/16 06:05 Creatinine 1.0 mg/dL (0.7-1.2) 11/20/16 06:05 Est GFR ( Amer) > 60 11/20/16 06:05 Est GFR (Non-Af Amer) 53 11/20/16 06:05 POC Glucose (mg/dL) 163 mg/dL (65-110) H 11/16/16 08:44 Random Glucose 101 mg/dL (65-105) 11/20/16 06:05 Hemoglobin A1c 5.7 % (4.2-6.5) 11/16/16 09:00 Lactic Acid 2.3 MMOL/L (0.7-2.1) H 11/18/16 14:00 Calcium 8.9 mg/dL (8.4-10.2) 11/20/16 06:05 Magnesium 2.0 MG/DL (1.6-2.3) 11/20/16 06:05 Total Bilirubin 0.8 mg/dl (0.2-1.3) 11/18/16 14:00 AST 29 U/L (14-36) 11/18/16 14:00 ALT 31 U/L (9-52) 11/18/16 14:00 Alkaline Phosphatase 53 U/L (38-126) 11/18/16 14:00 Troponin I 0.0280 ng/mL (0.00-0.120) 11/16/16 09:00 Total Protein 7.0 G/DL (6.3-8.2) 11/18/16 14:00 Albumin 4.0 g/dL (3.5-5.0) 11/18/16 14:00 Globulin 2.9 gm/dL (2.2-3.9) 11/18/16 14:00 Albumin/Globulin Ratio 1.4 (1.0-2.1) 11/18/16 14:00 Triglycerides 143 mg/DL (0-149) 11/16/16 09:00 Cholesterol 223 mg/dL (0-199) H 11/16/16 09:00 LDL Cholesterol Direct 134 mg/dL (0-129) H 11/16/16 09:00 HDL Cholesterol 56 MG/DL (30-70) 11/16/16 09:00 Thyroxine (T4) 7.79 ug/dl (5.5-11.0) 11/18/16 14:00 TSH 3rd Generation 1.88 mIU/ML (0.46-4.68) 11/18/16 14:00 Venous Blood Potassium 4.3 mmol/L (3.6-5.2) 11/16/16 12:30 Urine Color Yellow (YELLOW) 11/16/16 10:00 Urine Clarity Slighty-cloudy (Clear) 11/16/16 10:00 Urine pH 5.0 (5.0-8.0) 11/16/16 10:00 Ur Specific Greer 1.024 (1.003-1.030) 11/16/16 10:00 Urine Protein 30 mg/dL (NEGATIVE) 11/16/16 10:00 Urine Glucose (UA) Neg mg/dL (Normal) 11/16/16 10:00 Urine Ketones Negative mg/dL (NEGATIVE) 11/16/16 10:00 Urine Blood Negative (NEGATIVE) 11/16/16 10:00 Urine Nitrate Negative (NEGATIVE) 11/16/16 10:00 Urine Bilirubin Negative (NEGATIVE) 11/16/16 10:00 Urine Urobilinogen 0.2-1.0 mg/dL (0.2-1.0) 11/16/16 10:00 Ur Leukocyte Esterase Trace Kj/uL (Negative) 11/16/16 10:00 Urine RBC (Auto) 5 /hpf (0-3) H 11/16/16 10:00 Urine Microscopic WBC < 1 /hpf (0-5) 11/16/16 10:00 Ur Squamous Epith Cells 1 /hpf (0-5) 11/16/16 10:00 Ur Renal Epithelial Cell < 1 /hpf (0-3) 11/16/16 10:00 Blood Type A POSITIVE 11/16/16 09:00 Antibody Screen Negative 11/16/16 09:00 BBK History Checked No verified bt 11/16/16 09:00 - Hospital Course Hospital Course: 80 y/o lady with multiple medical problems that includes hx of CVA, HTN, Dilated cardiomyopathy s/p AICD, Multiple bouts of VT s/p Ablation, CAD, COPD , Chronic LBP, Sciatica , OA and Breast cancer s/p mastectomy was brought in by ambulance after a fall. The patient states that he was doing well at home, after her last admission in the hospital after an Ablation. She lives alone and does her own ADLs however since she had a heart attack years ago , she started noticing left lower extremity weakness and so she has been ambulating with a cane or walker since then. On the day of admission , she was fine, she stood up to go to the bathroom and she slipped and fell landing on her buttocks , she does not remember having LOC nor head trauma. She was unable to get up for 3 hours until a neighbor heard her screaming and came to help. She denies headache, no dizziness, no fever, no headache, no new neuro deficit , no CP, no SOB, no abd pain, no dysuria . She has frequency. In er patient was fouhnd to have elevted WBC 28 K , elevated lactic acid and UTI. She was admitted with sepsis secondary to UTI and started on IV Rocephin. Her urine cultures came positive for Citrobacter diversus.Patient clinically improving , WBC trending down to 12 k , afebrile and feeling better. PT was consulted and recommended TCU for her physical deconditioning Will transfer patioent to TCU for PT and IV antibiotics. 1. Sepsis secondary to UTI ( POA) improving Pt came with elevated WBC to 28k, elevated Lactate Blood c/s; negative so far Urine /c/s: Citrobacter diversus sensitive to Ceftriaxone cont IV ceftriaxone Leukocytosis trending down 12 K 2. Fall at home likely sec to Physical deconditioning, ( acute CVA , Seizure ruled out) Hip xray-- no fracture CT of head : neg hemorrhage/fracture Neuro consulted - felt this was just Deconditioning, PT eval appreciated will d/c to TCU 3. History of CVA with residual deficit , left LE weakness Chronic PT eval . continue PT in TCU Pt walks with a walker at home 4.Status post ablation of ventricular arrhythmia Chronic hx of recurrent VTs - ablation done in July at [place] Dr Da Silva on consult had 6 runs of non sustained VT on tele.patient is asymptomatic Has AICD in place 5. HTN (hypertension) Chronic, controlled cont Metoprolol, Losartan, lasix 6. HX: breast cancer s/p Left Mastectomy Chronic cont Arimidex 7. Cardiomyopathy s/p AICD Chronic CHF, systolic and diastolic dysfunction Chronic cont Lasix , Losartan and Toprol 8 CAD (coronary artery disease) Chronic cont ASA,statin, BB, ARB 9. COPD (chronic obstructive pulmonary disease) Chronic Duonebs prn 10. Hypothyroidism Chronic cont Levothyroxine 11. DVT prophylaxis Acute Lovenox Discharge Exam - Head Exam Head Exam: ATRAUMATIC, NORMAL INSPECTION, NORMOCEPHALIC - Eye Exam Eye Exam: EOMI, Normal appearance, PERRL Pupil Exam: NORMAL ACCOMODATION - ENT Exam ENT Exam: Mucous Membranes Moist, Normal Exam - Neck Exam Neck exam: Full Rom, Normal Inspection - Respiratory Exam Respiratory Exam: Clear to PA & Lateral, NORMAL BREATHING PATTERN. absent: Rales, Rhonchi, Wheezes - Cardiovascular Exam Cardiovascular Exam: REGULAR RHYTHM, RRR, +S1, +S2. absent: JVD - GI/Abdominal Exam GI & Abdominal Exam: Normal Bowel Sounds, Soft. absent: Distended, Guarding, Rebound, Tenderness - Rectal Exam Rectal Exam: Deferred - Extremities Exam Extremities exam: normal capillary refill, normal inspection, pedal pulses present - Back Exam Back exam: NORMAL INSPECTION - Neurological Exam Neurological exam: Alert, CN II-XII Intact, Oriented x3, Reflexes Normal - Psychiatric Exam Psychiatric exam: Normal Affect, Normal Mood - Skin Skin Exam: Dry, Intact, Normal Color, Warm Discharge Plan - Discharge Medications Prescriptions: cefTRIAXone 1 gm [Rocephin 1 gram IVPB] 1 gm IVPB DAILY #7 bag - Follow Up Plan Condition: STABLE Disposition: REHAB FACILITY/REHAB UNIT Patient education suggested?: Yes Referrals: Bernard Da Silva MD [Staff Provider] -
[2016-11-20] MEDS: Calcium-Vit D 500 mg-200 Units Tab UD PO SCH (09:55)
[2016-11-20] MEDS: Pantoprazole 40 mg EC Tab PO SCH (09:56)
[2016-11-20] MEDS: Metoprolol Succinate 50 mg XL Tab PO SCH (10:00)
[2016-11-20] MEDS: Multivitamin With Minerals Tab PO SCH (10:00)
[2016-11-20 12:09] VITALS: BP 145/77; PULSE 65; TEMP 97.9; O2SAT 97
--- NOTE | 2016-11-20 18:42 | CARD ---
APPROVED REPORT EKG Measurement Heart [id number] <Conclusion> Normal sinus rhythm ST & T wave abnormality, consider lateral ischemia Abnormal ECG
== END 2016-11-20 15:28 | DRG 872 ==
LOC: H.ER 08:39 → H.ERHOLD 12:28 → H.TEL 14:47 → OBSVTOIN 11-17 09:05
PROVIDERS: ADMIT Internal Medicine; ATTEND Internal Medicine
DX: A41.9 Sepsis, unspecified organism (principal); I11.0 Hypertensive heart disease with heart failure; I42.0 Dilated cardiomyopathy; I50.42 Chronic combined systolic (congestive) and diastolic (congestive) heart failure; I69.354 Hemiplegia and hemiparesis following cerebral infarction affecting left non-dominant side; N39.0 Urinary tract infection, site not specified; B96.89 Other specified bacterial agents as the cause of diseases classified elsewhere; M81.0 Age-related osteoporosis without current pathological fracture; J44.9 Chronic obstructive pulmonary disease, unspecified; Z85.3 Personal history of malignant neoplasm of breast; Z95.810 Presence of automatic (implantable) cardiac defibrillator; Z95.5 Presence of coronary angioplasty implant and graft; E03.9 Hypothyroidism, unspecified; E78.5 Hyperlipidemia, unspecified; G89.29 Other chronic pain; I25.2 Old myocardial infarction; I25.10 Atherosclerotic heart disease of native coronary artery without angina pectoris; M19.90 Unspecified osteoarthritis, unspecified site; M54.30 Sciatica, unspecified side; E86.0 Dehydration

== ENCOUNTER 2016-11-20 09:50 | Inpatient (IN) | payer OTHER, MEDICARE ==
[2016-11-20 14:49] VITALS: BMI 29.2
[2016-11-20] MEDS ORDERED: Lactulose 10 gm/15 ml Syrup PO PRN (16:47)
[2016-11-20 17:26] VITALS: RESP 20
[2016-11-21] MEDS: Levothyroxine 25 MCG TAB PO SCH (06:26)
[2016-11-21] MEDS ORDERED: cefTRIAXone IV 1 gm in Dextros 50 ML BAG IVPB SCH (09:00)
[2016-11-21] MEDS ORDERED: Metoprolol Succinate 50 mg XL Tab PO SCH ×2 (09:00→17:00)
[2016-11-21] MEDS ORDERED: Patient's Own Med (Ubidecarenone [Coenzyme Q-10] 200 mg) PO SCH (09:00)
[2016-11-21] MEDS: Calcium-Vit D 500 mg-200 Units Tab UD PO SCH (10:38)
[2016-11-21] MEDS: Pantoprazole 40 mg EC Tab PO SCH (10:38)
[2016-11-21] MEDS: Multivitamin With Minerals Tab PO SCH (10:38)
[2016-11-21] MEDS: Enoxaparin 40 mg Syringe SC SCH (10:40)
--- NOTE | 2016-11-21 15:14 | CP.PCM.HP ---
History of Present Illness - History of Present Illness History of Present Illness: 80 yo female with history of CVA, HTN, Dilated Cardiomyopathy with AICD, Multiple Incidences of VT S/P Ablation, CAD, COPD, Chronic Back Pain and Left Breast Cancer S/P Mastectomy brought in after falling on her bathroom landing on her buttocks. She was found to have sepsis secondary to UTI and was put on IV Rocephin. Urine culture was + for Citrobacter diversus. She continued to improve and was transfer to TCU for continuation of IV antibiotics and PT. Present on Admission - Present on Admission Any Indicators Present on Admission: No History of DVT/PE: No History of Uncontrolled Diabetes: No Urinary Catheter: No Decubitus Ulcer Present: No Review of Systems - Review of Systems All systems: reviewed and no additional remarkable complaints except (aside from those mentioned above, 12 point system review were negative by me) Past Patient History - Infectious Disease Hx of Infectious Diseases: None - Tetanus Immunizations Tetanus Immunization: Unknown - Past Medical History & Family History Past Medical History?: Yes - Past Social History Smoking Status: Former Smoker Alcohol: Occasional Drugs: Denies - CARDIAC Hx Cardiac Disorders: Yes Hx Cardia Arrhythmia: Yes Hx Congestive Heart Failure: Yes Hx Heart Attack: Yes Hx Hypertension: Yes Hx Pacemaker: Yes (AICD) Other/Comment: AICD, coronar stent - PULMONARY Hx Respiratory Disorders: No Hx Bronchitis: Yes Hx Pneumonia: Yes - NEUROLOGICAL Hx Neurological Disorder: Yes Hx Transient Ischemic Attacks (TIA): Yes - HEENT Hx HEENT Problems: No Hx Cataracts: Yes (sx) - RENAL Hx Chronic Kidney Disease: No - ENDOCRINE/METABOLIC Hx Endocrine Disorders: Yes Hx Hypothyroidism: Yes - HEMATOLOGICAL/ONCOLOGICAL Hx Blood Disorders: No - INTEGUMENTARY Hx Dermatological Problems: No - MUSCULOSKELETAL/RHEUMATOLOGICAL Hx Arthritis: Yes Hx Falls: Yes (x1) Hx Osteoporosis: Yes Hx Unsteady Gait: Yes Other/Comment: back problems - GASTROINTESTINAL Hx Gastrointestinal Disorders: No - GENITOURINARY/GYNECOLOGICAL Hx Genitourinary Disorders: No - PSYCHIATRIC Hx Substance Use: No - SURGICAL HISTORY Hx Appendectomy: Yes Hx Cholecystectomy: Yes Hx Coronary Stent: Yes Hx Mastectomy: Yes (left breast) - ANESTHESIA Hx Anesthesia: Yes Hx Anesthesia Reactions: No Hx Malignant Hyperthermia: No Meds Allergies/Adverse Reactions: Allergies Allergy/AdvReac Type Severity Reaction Status Date / Time No Known Allergies Allergy Verified 11/20/16 14:54 Physical Exam - Constitutional Appears: No Acute Distress - Head Exam Head Exam: ATRAUMATIC - Eye Exam Eye Exam: absent: Scleral icterus - ENT Exam ENT Exam: Mucous Membranes Moist - Neck Exam Neck exam: Negative for: Meningismus - Respiratory Exam Respiratory Exam: absent: Rhonchi, Wheezes, Respiratory Distress - Cardiovascular Exam Cardiovascular Exam: REGULAR RHYTHM, +S1, +S2 - GI/Abdominal Exam GI & Abdominal Exam: Soft. absent: Tenderness - Rectal Exam Rectal Exam: Deferred - Neurological Exam Neurological exam: Alert, Oriented x3 - Psychiatric Exam Psychiatric exam: Normal Affect - Skin Skin Exam: Dry, Intact Results - Vital Signs Recent Vital Signs: Last Vital Signs Temp 98.1 F 11/21/16 10:00 Pulse 65 11/21/16 10:40 Resp 20 11/21/16 10:00 BP 138/71 11/21/16 10:41 Pulse Ox 98 11/21/16 10:00 Assessment & Plan - Assessment and Plan (Free Text) Assessment: 80 yo female with history of CVA, HTN, Dilated Cardiomyopathy with AICD, Multiple Incidences of VT S/P Ablation, CAD, COPD, Chronic Back Pain and Left Breast Cancer S/P Mastectomy brought in after falling on her bathroom landing on her buttocks. She was found to have sepsis secondary to UTI and was put on IV Rocephin. Urine culture was + for Citrobacter diversus. She continued to improve and was transfer to TCU for continuation of IV antibiotics and PT. 1. Sepsis secondary to UTI ( POA) improved afebrile, last WBC down to 12.5 from Blood c/s; negative so far Urine c/s: Citrobacter diversus sensitive to Ceftriaxone repeat CBC in am 2. Fall at home likely sec to Physical deconditioning, imagings: no fractures seen 3. History of CVA with residual deficit , left LE weakness continue PT in TCU 4. Status post ablation of ventricular arrhythmia history of recurrent VTs ablation done in [facility] at [facility] Dr Da Silva on consult 5. HTN (hypertension) BP controlled cont Metoprolol, Losartan, Lasix 6. History of left breast cancer s/p Left Mastectomy continue Arimidex 7. Cardiomyopathy s/p AICD systolic and diastolic dysfunction continue Lasix, Losartan and Metoprolol 8. CAD (coronary artery disease) continue ASA, statin, BB, ARB 9. COPD (chronic obstructive pulmonary disease) Duonebs prn 10. Hypothyroidism continue Levothyroxine 11. DVT prophylaxis on Lovenox
[2016-11-21] MEDS: Metoprolol Succinate 50 mg XL Tab PO SCH (21:39)
[2016-11-22] MEDS: Levothyroxine 25 MCG TAB PO SCH (06:45)
[2016-11-22] MEDS: Calcium-Vit D 500 mg-200 Units Tab UD PO SCH (08:29)
[2016-11-22] MEDS: Pantoprazole 40 mg EC Tab PO SCH (08:29)
[2016-11-22] MEDS: Enoxaparin 40 mg Syringe SC SCH (08:29)
[2016-11-22] MEDS: Metoprolol Succinate 50 mg XL Tab PO SCH ×2 (08:35→21:45)
[2016-11-22] MEDS: Multivitamin With Minerals Tab PO SCH (17:50)
[2016-11-23] MEDS: Levothyroxine 25 MCG TAB PO SCH (06:27)
[2016-11-23] MEDS: Metoprolol Succinate 50 mg XL Tab PO SCH ×2 (08:12→21:05)
[2016-11-23] MEDS: Pantoprazole 40 mg EC Tab PO SCH (08:12)
[2016-11-23] MEDS: Multivitamin With Minerals Tab PO SCH (08:12)
[2016-11-23] MEDS: Calcium-Vit D 500 mg-200 Units Tab UD PO SCH (08:14)
[2016-11-23] MEDS: Enoxaparin 40 mg Syringe SC SCH (08:15)
--- NOTE | 2016-11-23 22:38 | CP.PCM.CON ---
History of Present Illness - History of Present Illness History of Present Illness: consultation for evaluation of hx of CAD and arrhythmias HPI Alert Ashanti 80-year-old female with past medical history significant for hypertension CAD status post angioplasty of left anterior descending artery in 2012 nonischemic dilated cardiomyopathy history of recurrent ventricular tachycardia status post V. fib ablation done at [facility] by Dr. Gideon Sanchez who was admitted last week to [facility] after sustaining a fall and being on the floor for a few hours. Patient on presentation was noted to have a urinary tract infection and was initiated on IV antibiotics. She was by mistake put on mexiletine which had been discontinued few months ago. Was subsequently transferred over to rehab for physical deconditioning. Review of Systems - Review of Systems All systems: reviewed and no additional remarkable complaints except - Constitutional Constitutional: As Per HPI - EENT Eyes: As Per HPI Ears: As Per HPI Nose/Mouth/Throat: As Per HPI - Breasts Breasts: As Per HPI - Cardiovascular Cardiovascular: As Per HPI - Respiratory Respiratory: As Per HPI - Gastrointestinal Gastrointestinal: As Per HPI - Genitourinary Genitourinary: As Per HPI - Menstruation Menstruation: As Per HPI - Musculoskeletal Musculoskeletal: As Per HPI - Integumentary Integumentary: As Per HPI - Neurological Neurological: As Per HPI - Psychiatric Psychiatric: As Per HPI - Endocrine Endocrine: As Per HPI - Hematologic/Lymphatic Hematologic: As Per HPI Past Patient History - Infectious Disease Hx of Infectious Diseases: None - Tetanus Immunizations Tetanus Immunization: Unknown - Past Medical History & Family History Past Medical History?: Yes Pertinent Family History: +ve for HTN - Past Social History Smoking Status: Former Smoker Alcohol: Occasional Drugs: Denies - CARDIAC Hx Cardiac Disorders: Yes Hx Cardia Arrhythmia: Yes Hx Congestive Heart Failure: Yes Hx Heart Attack: Yes Hx Hypertension: Yes Hx Pacemaker: Yes (AICD) Other/Comment: AICD, coronar stent - PULMONARY Hx Respiratory Disorders: No Hx Bronchitis: Yes Hx Pneumonia: Yes - NEUROLOGICAL Hx Neurological Disorder: Yes Hx Transient Ischemic Attacks (TIA): Yes - HEENT Hx HEENT Problems: No Hx Cataracts: Yes (sx) - RENAL Hx Chronic Kidney Disease: No - ENDOCRINE/METABOLIC Hx Endocrine Disorders: Yes Hx Hypothyroidism: Yes - HEMATOLOGICAL/ONCOLOGICAL Hx Blood Disorders: No - INTEGUMENTARY Hx Dermatological Problems: No - MUSCULOSKELETAL/RHEUMATOLOGICAL Hx Arthritis: Yes Hx Falls: Yes (x1) Hx Osteoporosis: Yes Hx Unsteady Gait: Yes Other/Comment: back problems - GASTROINTESTINAL Hx Gastrointestinal Disorders: No - GENITOURINARY/GYNECOLOGICAL Hx Genitourinary Disorders: No - PSYCHIATRIC Hx Substance Use: No - SURGICAL HISTORY Hx Appendectomy: Yes Hx Cholecystectomy: Yes Hx Coronary Stent: Yes Hx Mastectomy: Yes (left breast) - ANESTHESIA Hx Anesthesia: Yes Hx Anesthesia Reactions: No Hx Malignant Hyperthermia: No Meds Allergies/Adverse Reactions: Allergies Allergy/AdvReac Type Severity Reaction Status Date / Time No Known Allergies Allergy Verified 11/20/16 14:54 - Medications Medications: Current Medications Acetaminophen (Tylenol 325mg Tab) 650 mg PO Q6 PRN PRN Reason: headache Last Admin: 11/23/16 07:52 Dose: 650 mg Anastrozole (Arimidex 1 Mg Tab) 1 mg PO DAILY [facility] Last Admin: 11/23/16 10:16 Dose: 1 mg Ascorbic Acid (Vitamin C 500 Mg Tab) 1,000 mg PO DAILY [facility] Last Admin: 11/23/16 08:14 Dose: 1,000 mg Aspirin (Ecotrin) 81 mg PO DAILY [facility] Last Admin: 11/23/16 08:12 Dose: 81 mg Atorvastatin Calcium (Lipitor) 20 mg PO HS [facility] Last Admin: 11/23/16 21:05 Dose: 20 mg Calcium/Vitamin D (Oyster Shell Calcium/Vitamin D 500 Mg-200 Iu) 2 tab PO DAILY [facility] Last Admin: 11/23/16 08:14 Dose: 2 tab Cholecalciferol (Vitamin D) 2,000 iu PO DAILY [facility] Last Admin: 11/23/16 08:12 Dose: 2,000 iu Clopidogrel Bisulfate (Plavix) 75 mg PO DAILY [facility] Last Admin: 11/23/16 08:16 Dose: Not Given Enoxaparin Sodium (Lovenox) 40 mg SC DAILY [facility] PRN Reason: Protocol Last Admin: 11/23/16 08:15 Dose: 40 mg Furosemide (Lasix) 20 mg PO DAILY [facility] Last Admin: 11/23/16 08:13 Dose: Not Given Ceftriaxone Sodium 1 gm/ (Sodium Chloride) 100 mls @ 100 mls/hr IVPB DAILY@ 1700 [facility] Last Admin: 11/23/16 16:43 Dose: 100 mls/hr Lactulose (Enulose) 10 gm PO DAILY PRN PRN Reason: Constipation Levothyroxine Sodium (Synthroid) 25 mcg PO DAILY@0630 [facility] Last Admin: 11/23/16 06:27 Dose: 25 mcg Losartan Potassium (Cozaar) 25 mg PO DAILY [facility] Last Admin: 11/23/16 08:13 Dose: 25 mg Metoprolol Succinate (Toprol Xl) 50 mg PO Q12 [facility] Last Admin: 11/23/16 21:05 Dose: 50 mg Multivitamins/Minerals (Therapeutic-M Tab) 1 tab PO DAILY [facility] Last Admin: 11/23/16 08:12 Dose: 1 tab Pantoprazole Sodium (Protonix Ec Tab) 40 mg PO DAILY [facility] Last Admin: 11/23/16 08:12 Dose: 40 mg Physical Exam - Constitutional Appears: Well - Head Exam Head Exam: ATRAUMATIC, NORMAL INSPECTION, NORMOCEPHALIC - Eye Exam Eye Exam: EOMI, Normal appearance, PERRL Pupil Exam: NORMAL ACCOMODATION, PERRL - ENT Exam ENT Exam: Mucous Membranes Moist, Normal Exam - Neck Exam Neck exam: Positive for: Normal Inspection - Respiratory Exam Respiratory Exam: Clear to Auscultation Bilateral, NORMAL BREATHING PATTERN - Cardiovascular Exam Cardiovascular Exam: REGULAR RHYTHM, RRR, +S1, +S2, Systolic Murmur - GI/Abdominal Exam GI & Abdominal Exam: Normal Bowel Sounds, Soft. absent: Tenderness - Extremities Exam Extremities exam: Positive for: normal inspection - Back Exam Back exam: NORMAL INSPECTION - Neurological Exam Neurological exam: Alert, CN II-XII Intact, Oriented x3, Reflexes Normal - Psychiatric Exam Psychiatric exam: Normal Affect, Normal Mood, Suicidal Ideation - Skin Skin Exam: Dry, Intact, Normal Color, Warm Results - Vital Signs Recent Vital Signs: Last Vital Signs Temp 98.2 F 11/23/16 20:42 Pulse 67 11/23/16 21:05 Resp 20 11/23/16 20:42 BP 136/67 11/23/16 21:05 Pulse Ox 100 11/23/16 20:42 Assessment & Plan (1) Near syncope Assessment and Plan: etiology 2' to preload dependency from UTI and sepsis Status: Acute (2) Physical deconditioning Assessment and Plan: OT/PT Status: Acute (3) Sepsis secondary to UTI Status: Acute (4) CAD (coronary artery disease) Assessment and Plan: asa, bb, statins Status: Chronic (5) CHF (congestive heart failure) Assessment and Plan: NIDCMP s/p AICD on losartan and BB Status: Chronic Priority: High (6) COPD (chronic obstructive pulmonary disease) Assessment and Plan: inh steroids abx per primary team Status: Chronic (7) Cardiomyopathy Status: Chronic (8) HLD (hyperlipidemia) Status: Chronic (9) HTN (hypertension) Status: Chronic (10) Status post ablation of ventricular arrhythmia Assessment and Plan: only on BB no antiarrhythamics Status: Chronic
[2016-11-24] MEDS: Levothyroxine 25 MCG TAB PO SCH (06:16)
[2016-11-24] MEDS: Enoxaparin 40 mg Syringe SC SCH (07:59)
[2016-11-24] MEDS: Metoprolol Succinate 50 mg XL Tab PO SCH ×2 (07:59→21:44)
[2016-11-24] MEDS: Pantoprazole 40 mg EC Tab PO SCH (08:00)
[2016-11-24] MEDS: Multivitamin With Minerals Tab PO SCH (08:00)
[2016-11-24] MEDS: Calcium-Vit D 500 mg-200 Units Tab UD PO SCH (08:01)
--- NOTE | 2016-11-24 12:41 | CP.PCM.PN ---
Subjective - Date & Time of Evaluation Date of Evaluation: 11/24/16 Time of Evaluation: 12:40 - Subjective Subjective: Today the patient states that she feels well. She denies any fevers, chills, nausea, vomiting, or diarrhea. She is tolerating physical therapy well. Objective - Vital Signs/Intake and Output Vital Signs (last 24 hours): Temp Pulse Resp BP Pulse Ox 97.7 F 66 20 142/67 96 11/24/16 08:00 11/24/16 08:01 11/24/16 08:00 11/24/16 08:01 11/24/16 08:00 - Medications Medications: Current Medications Acetaminophen (Tylenol 325mg Tab) 650 mg PO Q6 PRN PRN Reason: headache Last Admin: 11/24/16 00:20 Dose: 650 mg Anastrozole (Arimidex 1 Mg Tab) 1 mg PO DAILY [facility] Last Admin: 11/24/16 08:02 Dose: 1 mg Ascorbic Acid (Vitamin C 500 Mg Tab) 1,000 mg PO DAILY [facility] Last Admin: 11/24/16 08:00 Dose: 1,000 mg Aspirin (Ecotrin) 81 mg PO DAILY [facility] Last Admin: 11/24/16 08:01 Dose: 81 mg Atorvastatin Calcium (Lipitor) 20 mg PO HS [facility] Last Admin: 11/23/16 21:05 Dose: 20 mg Calcium/Vitamin D (Oyster Shell Calcium/Vitamin D 500 Mg-200 Iu) 2 tab PO DAILY [facility] Last Admin: 11/24/16 08:01 Dose: 2 tab Cholecalciferol (Vitamin D) 2,000 iu PO DAILY [facility] Last Admin: 11/24/16 08:01 Dose: 2,000 iu Furosemide (Lasix) 20 mg PO DAILY [facility] Last Admin: 11/24/16 08:00 Dose: 20 mg Ceftriaxone Sodium 1 gm/ (Sodium Chloride) 100 mls @ 100 mls/hr IVPB DAILY@ 1700 [facility] Last Admin: 11/23/16 16:43 Dose: 100 mls/hr Lactulose (Enulose) 10 gm PO DAILY PRN PRN Reason: Constipation Levothyroxine Sodium (Synthroid) 25 mcg PO DAILY@0630 [facility] Last Admin: 11/24/16 06:16 Dose: 25 mcg Losartan Potassium (Cozaar) 25 mg PO DAILY [facility] Last Admin: 11/24/16 08:01 Dose: 25 mg Metoprolol Succinate (Toprol Xl) 50 mg PO Q12 [facility] Last Admin: 11/24/16 07:59 Dose: 50 mg Multivitamins/Minerals (Therapeutic-M Tab) 1 tab PO DAILY [facility] Last Admin: 11/24/16 08:00 Dose: 1 tab Pantoprazole Sodium (Protonix Ec Tab) 40 mg PO DAILY [facility] Last Admin: 11/24/16 08:00 Dose: 40 mg - Additional Findings Additional findings: EXAM: Vitals stable and reviewed GEN: WDWN, alert, cooperative HEENT: NCAT, PERRL, EOMI Neck: supple, no lymphadenopathy CARDIO: +S1S2, RRR, NO M/R/G LUNG: CTAB, NO W/R/R ABD: soft, NT, ND, no masses, no HSM EXT: no edema, pedal pulses Neuro: AAOx3, Strength equal, bilateral UE/LE Psych: normal mood, normal affect Assessment and Plan - Assessment and Plan (Free Text) Plan: 80 yo female with history of CVA, HTN, Dilated Cardiomyopathy with AICD, Multiple Incidences of VT S/P Ablation, CAD, COPD, Chronic Back Pain and Left Breast Cancer S/P Mastectomy brought in after falling on her bathroom landing on her buttocks. She was found to have sepsis secondary to UTI and was put on IV Rocephin. Urine culture was + for Citrobacter diversus. She continued to improve and was transferred to TCU for continuation of IV antibiotics and PT. 1. Sepsis secondary to UTI ( POA) resolved afebrile, last WBC down to 12.5 from Blood c/s; negative so far Urine c/s: Citrobacter diversus sensitive to Ceftriaxone repeat CBC in am 2. Fall at home, presyncope likely sec to Physical deconditioning, imagings: no fractures seen 3. History of CVA with residual deficit , left LE weakness continue physical therapy 4. Status post ablation of ventricular arrhythmia history of recurrent VTs ablation done in July at [facility] Dr Da Silva on consult 5. HTN (hypertension) BP controlled cont Metoprolol, Losartan, Lasix 6. History of left breast cancer s/p Left Mastectomy continue Arimidex 7. Cardiomyopathy s/p AICD systolic and diastolic dysfunction continue Lasix, Losartan and Metoprolol 8. CAD (coronary artery disease) continue ASA, statin, BB, ARB 9. COPD (chronic obstructive pulmonary disease) Duonebs prn 10. Hypothyroidism continue Levothyroxine 11. DVT prophylaxis on Lovenox
[2016-11-25] MEDS: Levothyroxine 25 MCG TAB PO SCH (06:26)
[2016-11-25] MEDS: Calcium-Vit D 500 mg-200 Units Tab UD PO SCH (08:20)
[2016-11-25] MEDS: Pantoprazole 40 mg EC Tab PO SCH (08:20)
[2016-11-25] MEDS: Multivitamin With Minerals Tab PO SCH (08:20)
[2016-11-25] MEDS: Metoprolol Succinate 50 mg XL Tab PO SCH ×2 (08:21→20:52)
[2016-11-26] MEDS: Levothyroxine 25 MCG TAB PO SCH (06:09)
[2016-11-26 06:41] LABS: HEMATOCRIT 36.1 % (34.0-47.0); MEAN CELL VOLUME 93.4 fl (81.0-99.0); MEAN CORPUSCULAR HEMOGLOBIN 30.1 pg (27.0-31.0); MEAN CORPUSCULAR HGB CONC 32.2 g/dL (33.0-37.0); WHITE BLOOD COUNT 9.6 K/uL (4.8-10.8)
[2016-11-26] MEDS: Calcium-Vit D 500 mg-200 Units Tab UD PO SCH (09:06)
[2016-11-26] MEDS: Pantoprazole 40 mg EC Tab PO SCH (09:06)
[2016-11-26] MEDS: Multivitamin With Minerals Tab PO SCH (09:06)
[2016-11-26] MEDS: Metoprolol Succinate 50 mg XL Tab PO SCH ×2 (09:06→21:07)
--- NOTE | 2016-11-26 22:47 | CP.PCM.PN ---
Subjective - Date & Time of Evaluation Date of Evaluation: 11/26/16 Time of Evaluation: 17:00 - Subjective Subjective: feeling fine back to her baseline wants to go home Objective - Vital Signs/Intake and Output Vital Signs (last 24 hours): Temp Pulse Resp BP Pulse Ox 98.2 F 67 20 130/55 L 91 L 11/26/16 21:31 11/26/16 21:31 11/26/16 21:31 11/26/16 21:31 11/26/16 21:31 - Medications Medications: Current Medications Acetaminophen (Tylenol 325mg Tab) 650 mg PO Q6 PRN PRN Reason: headache Last Admin: 11/24/16 00:20 Dose: 650 mg Anastrozole (Arimidex 1 Mg Tab) 1 mg PO DAILY [facility] Last Admin: 11/26/16 09:08 Dose: 1 mg Ascorbic Acid (Vitamin C 500 Mg Tab) 1,000 mg PO DAILY [facility] Last Admin: 11/26/16 09:06 Dose: 1,000 mg Aspirin (Ecotrin) 81 mg PO DAILY [facility] Last Admin: 11/26/16 09:05 Dose: 81 mg Atorvastatin Calcium (Lipitor) 20 mg PO HS [facility] Last Admin: 11/26/16 21:09 Dose: 20 mg Calcium/Vitamin D (Oyster Shell Calcium/Vitamin D 500 Mg-200 Iu) 2 tab PO DAILY [facility] Last Admin: 11/26/16 09:06 Dose: 2 tab Cholecalciferol (Vitamin D) 2,000 iu PO DAILY [facility] Last Admin: 11/26/16 09:06 Dose: 2,000 iu Furosemide (Lasix) 20 mg PO DAILY [facility] Last Admin: 11/26/16 09:05 Dose: 20 mg Ceftriaxone Sodium 1 gm/ (Sodium Chloride) 100 mls @ 100 mls/hr IVPB DAILY@ 1700 [facility] Last Admin: 11/26/16 17:41 Dose: 100 mls/hr Lactulose (Enulose) 10 gm PO DAILY PRN PRN Reason: Constipation Levothyroxine Sodium (Synthroid) 25 mcg PO DAILY@0630 [facility] Last Admin: 11/26/16 06:09 Dose: 25 mcg Losartan Potassium (Cozaar) 25 mg PO DAILY [facility] Last Admin: 11/26/16 17:41 Dose: 25 mg Metoprolol Succinate (Toprol Xl) 50 mg PO Q12 [facility] Last Admin: 11/26/16 21:07 Dose: 50 mg Multivitamins/Minerals (Therapeutic-M Tab) 1 tab PO DAILY [facility] Last Admin: 11/26/16 09:06 Dose: 1 tab Pantoprazole Sodium (Protonix Ec Tab) 40 mg PO DAILY [facility] Last Admin: 11/26/16 09:06 Dose: 40 mg - Labs Labs: 11/26/16 06:33 - Constitutional Appears: Well - Head Exam Head Exam: ATRAUMATIC, NORMAL INSPECTION, NORMOCEPHALIC - Eye Exam Eye Exam: EOMI, Normal appearance, PERRL Pupil Exam: NORMAL ACCOMODATION, PERRL - ENT Exam ENT Exam: Mucous Membranes Moist, Normal Exam - Neck Exam Neck Exam: Full ROM, Normal Inspection. absent: Lymphadenopathy - Respiratory Exam Respiratory Exam: Clear to Ausculation Bilateral, NORMAL BREATHING PATTERN - Cardiovascular Exam Cardiovascular Exam: REGULAR RHYTHM, +S1, +S2, Murmur - GI/Abdominal Exam GI & Abdominal Exam: Soft, Normal Bowel Sounds. absent: Tenderness - Extremities Exam Extremities Exam: Full ROM, Normal Capillary Refill, Normal Inspection. absent : Joint Swelling, Pedal Edema - Neurological Exam Neurological Exam: Alert, Awake, CN II-XII Intact, Oriented x3 - Psychiatric Exam Psychiatric exam: Normal Affect, Normal Mood - Skin Skin Exam: Dry, Intact, Normal Color, Warm Assessment and Plan (1) Near syncope Assessment & Plan: stable mildly hypoxemic with ambulation Status: Acute (2) Physical deconditioning Assessment & Plan: PT/OT improving Status: Acute (3) Sepsis secondary to UTI Status: Acute (4) CAD (coronary artery disease) Assessment & Plan: stable cont asa, bb, statins Status: Chronic (5) CHF (congestive heart failure) Assessment & Plan: non-ischemic CMP on BB and ARB Status: Chronic (6) COPD (chronic obstructive pulmonary disease) Status: Chronic (7) Cardiomyopathy Status: Chronic (8) HLD (hyperlipidemia) Status: Chronic (9) HTN (hypertension) Status: Chronic (10) Status post ablation of ventricular arrhythmia Status: Chronic
[2016-11-27] MEDS: Levothyroxine 25 MCG TAB PO SCH (06:21)
[2016-11-27] MEDS: Calcium-Vit D 500 mg-200 Units Tab UD PO SCH (08:07)
[2016-11-27] MEDS: Metoprolol Succinate 50 mg XL Tab PO SCH (08:08)
[2016-11-27] MEDS: Pantoprazole 40 mg EC Tab PO SCH (08:08)
[2016-11-27] MEDS: Multivitamin With Minerals Tab PO SCH (08:08)
[2016-11-27 08:13] VITALS: BP 138/57; PULSE 62
[2016-11-27 08:14] VITALS: TEMP 98.1; O2SAT 93
--- NOTE | 2016-11-27 18:08 | CP.PCM.DIS ---
Provider - Provider Date of Admission: 11/20/16 15:36 Attending physician: Marie Ralph MD Consults: Dr Da Silva Time Spent in preparation of Discharge (in minutes): 30 Diagnosis - Discharge Diagnosis (1) Sepsis secondary to UTI Status: Acute Comment: resolved (2) History of CVA with residual deficit Status: Chronic Comment: continue ASA, statin and control of BP (3) Status post ablation of ventricular arrhythmia Status: Chronic Comment: no recurrence of arrhythmia while in the hospital (4) HTN (hypertension) Status: Chronic Comment: BP controlled. continue Metoprolol, Losartan and Lasix (5) Cardiomyopathy Status: Chronic Comment: combination of systolic and diastolic dysfunction. S/P AICD. on Lasix and Losartan (6) CAD (coronary artery disease) Status: Chronic Comment: continue statin, ASA and Metoprolol (7) COPD (chronic obstructive pulmonary disease) Status: Chronic Comment: Duonebs prn for wheezing or SOB Hospital Course - Lab Results Lab Results: Most Recent Lab Values WBC 9.6 K/uL (4.8-10.8) 11/26/16 06:33 RBC 3.86 Mil/uL (3.80-5.20) 11/26/16 06:33 Hgb 11.6 g/dL (12.0-16.0) L 11/26/16 06:33 Hct 36.1 % (34.0-47.0) 11/26/16 06:33 MCV 93.4 fl (81.0-99.0) 11/26/16 06:33 MCH 30.1 pg (27.0-31.0) 11/26/16 06:33 MCHC 32.2 g/dL (33.0-37.0) L 11/26/16 06:33 RDW 18.0 % (11.5-14.5) H 11/26/16 06:33 Plt Count 229 K/uL (130-400) 11/26/16 06:33 - Hospital Course Hospital Course: 80 yo female with history of CVA, HTN, Dilated cardiomyopathy s/p AICD, Multiple bouts of VT s/p Ablation, CAD, COPD, Chronic LBP, Sciatica, OA and Breast cancer s/p mastectomy was brought in by ambulance after a fall in her bathroom where she landed on her buttocks. She was found to have Sepsis secondary to UTI. She was put on IV Rocephin and began to improve. Urine culture was positive for Citrobacter Diversus. She was transferred to TCU for continuation of IV antibiotics and PT. Discharge Exam - Head Exam Head Exam: ATRAUMATIC, NORMAL INSPECTION, NORMOCEPHALIC - Eye Exam Eye Exam: absent: Scleral icterus - ENT Exam ENT Exam: Mucous Membranes Moist - Respiratory Exam Respiratory Exam: absent: Wheezes, Respiratory Distress - Cardiovascular Exam Cardiovascular Exam: REGULAR RHYTHM, +S1, +S2 - GI/Abdominal Exam GI & Abdominal Exam: Soft. absent: Tenderness - Rectal Exam Rectal Exam: Deferred - Neurological Exam Neurological exam: Alert, Oriented x3 - Psychiatric Exam Psychiatric exam: Normal Affect - Skin Skin Exam: Dry, Intact Discharge Plan - Follow Up Plan Condition: GOOD Disposition: HOME/ ROUTINE Instructions: Sepsis (GEN), Fall Prevention (DC) Additional Instructions: Followup with PMD, call for appointment in 3-[address] Da Silva, steam hammer operator, call for appointment. Followup with Dr. Orourke, systems development consultant, call for appointment. [phone]
== END 2016-11-27 14:00 | DRG 872 ==
LOC: H.TCU 15:36
PROVIDERS: ADMIT Hospitalist; ATTEND Hospitalist
PROC: F07M6FZ Therapeutic Exercise Treatment of Musculoskeletal System - Whole Body using Assistive, Adaptive, Supportive or Protective Equipment (ICD-10-PCS; principal; 2016-11-20)
PROC: F08Z4FZ Home Management Treatment using Assistive, Adaptive, Supportive or Protective Equipment (ICD-10-PCS; 2016-11-20)
DX: A41.9 Sepsis, unspecified organism (principal); I11.0 Hypertensive heart disease with heart failure; I42.0 Dilated cardiomyopathy; I50.9 Heart failure, unspecified; N39.0 Urinary tract infection, site not specified; E03.9 Hypothyroidism, unspecified; E78.5 Hyperlipidemia, unspecified; G89.29 Other chronic pain; I25.10 Atherosclerotic heart disease of native coronary artery without angina pectoris; I25.2 Old myocardial infarction; J44.9 Chronic obstructive pulmonary disease, unspecified; M81.0 Age-related osteoporosis without current pathological fracture; Z91.81 History of falling; Z79.811 Long term (current) use of aromatase inhibitors; Z90.12 Acquired absence of left breast and nipple; Z85.3 Personal history of malignant neoplasm of breast; Z86.73 Personal history of transient ischemic attack (TIA), and cerebral infarction without residual deficits; Z87.01 Personal history of pneumonia (recurrent); Z87.891 Personal history of nicotine dependence; Z90.49 Acquired absence of other specified parts of digestive tract; Z95.0 Presence of cardiac pacemaker; Z95.5 Presence of coronary angioplasty implant and graft; Z95.810 Presence of automatic (implantable) cardiac defibrillator; H26.9 Unspecified cataract; J40 Bronchitis, not specified as acute or chronic; M19.90 Unspecified osteoarthritis, unspecified site; R53.1 Weakness; M54.5 Low back pain; R26.81 Unsteadiness on feet; R55 Syncope and collapse

== ENCOUNTER 2016-11-29 09:04 | Emergency (ER) | payer MEDICARE ==
[2016-11-29 09:11] VITALS: RESP 18; BMI 30.2
--- NOTE | 2016-11-29 09:40 | CARD ---
APPROVED REPORT EKG Measurement Heart [id number] <Conclusion> Atrial-paced rhythm Moderate voltage criteria for LVH, may be normal variant T wave abnormality, consider lateral ischemia Abnormal ECG
--- NOTE | 2016-11-29 09:45 | ED PDOC ---
HPI: SOB/CHF/COPD Time Seen by Provider: 11/29/16 09:17 Chief Complaint (Nursing): Shortness Of Breath Chief Complaint (Provider): Shortness Of Breath History Per: Patient History/Exam Limitations: no limitations Onset/Duration Of Symptoms: Days (x1) Current Symptoms Are (Timing): Still Present Additional Complaint(s): Ashanti Marte is an 81 year old female with a history of cardiac problems that presents to the ED with a chief complaint of shortness of breath that she began to experience yesterday. Patient states that she was recently admitted for a fall and was discharged yesterday to go home. Once she got home, patient reports she began to experience shortness of breath, especially at nighttime when she laid down. She states she instead slept sitting up on her couch, and upon waking up this morning her shortness of breath continued with associated wheezing, at which point she called EMS to bring her to the ED. Patient denies fever, cough, rhinorrhea, chest pain, or leg swelling. Past Medical History Reviewed: Historical Data, Nursing Documentation, Vital Signs Vital Signs: Last Vital Signs Temp 98.3 F 11/29/16 09:11 Pulse 71 11/29/16 09:11 Resp 18 11/29/16 09:11 BP 133/66 11/29/16 09:11 Pulse Ox 96 11/29/16 13:03 - Medical History PMH: Arthritis, Back Problems, Bronchitis, CAD, Cardia Arrhythmia, CHF, COPD, HTN, Hypothyroidism, Osteoporosis, Pneumonia, TIA Denies: HIV, Hypercholesterolemia, Chronic Kidney Disease, Rheumatoid Arthritis Other PMH: heart attacks x4 - Surgical History Surgical History: Appendectomy, Cholecystectomy, Coronary Stent, Pacemaker (AICD ) - Family History Family History: States: Unknown Family Hx - Living Arrangements Living Arrangements: Alone - Social History Current smoker - smoking cessation education provided: No Alcohol: None Drugs: Denies - Immunization History Hx Tetanus Toxoid Vaccination: No Hx Influenza Vaccination: No Hx Pneumococcal Vaccination: No - Home Medications Home Medications: Ambulatory Orders Medication Instructions Recorded Anastrozole [Arimidex] 1 mg PO DAILY 04/29/16 Ascorbic Acid [Vitamin C] 1,000 mg PO DAILY 04/29/16 Aspirin [Ecotrin] 81 mg PO DAILY 04/29/16 Atorvastatin [Lipitor] 20 mg PO HS 04/29/16 Calcium Carbonate/Vitamin D3 2 tab PO DAILY 04/29/16 [Caltrate 600 Plus D3 Tablet] Cholecalciferol (Vitamin D3) 2,000 unit PO DAILY 04/29/16 [Vitamin D3] Levothyroxine [Synthroid] 25 mcg PO DAILY 04/29/16 Losartan [Cozaar] 25 mg PO DAILY 04/29/16 Multivit-Min/FA/Lycopen/Lutein 1 tab PO DAILY 04/29/16 [Centrum Silver Tablet] Pantoprazole Sodium [Protonix] 40 mg PO DAILY 04/29/16 Furosemide [Lasix] 20 mg PO DAILY 11/16/16 Metoprolol Succinate 50 mg PO BID 11/16/16 Acetaminophen [Tylenol 325mg tab] 650 mg PO Q6 PRN tab 11/20/16 Lactulose [Enulose] 10 gm PO DAILY PRN 11/20/16 - Allergies Allergies/Adverse Reactions: Allergies Allergy/AdvReac Type Severity Reaction Status Date / Time No Known Allergies Allergy Verified 11/20/16 14:54 Review of Systems Constitutional: Negative for: Fever, Chills ENT: Negative for: Nose Discharge, Nose Congestion Cardiovascular: Negative for: Chest Pain, Edema (denies pedal edema) Respiratory: Positive for: Shortness of Breath. Negative for: Cough Physical Exam - Reviewed Nursing Documentation Reviewed: Yes Vital Signs Reviewed: Yes - Physical Exam Appears: Positive for: Non-toxic, No Acute Distress Head Exam: Positive for: ATRAUMATIC, NORMOCEPHALIC Skin: Positive for: Normal Color, Warm. Negative for: Rash, Cyanosis ENT: Positive for: Normal ENT Inspection (Moist mucous membranes). Negative for : Nasal Congestion Cardiovascular/Chest: Positive for: Regular Rate, Rhythm. Negative for: Murmur Respiratory: Positive for: Normal Breath Sounds. Negative for: Wheezing, Respiratory Distress Gastrointestinal/Abdominal: Positive for: Normal Exam, Soft. Negative for: Tenderness Extremity: Positive for: Normal ROM. 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 Negative for: Motor/Sensory Deficits - Laboratory Results Result Diagrams: 11/29/16 10:15 11/29/16 10:15 - ECG O2 Sat by Pulse Oximetry: 96 Medical Decision Making Medical Decision Making: Impression: SOB in setting of cardiac disease Plan: * Chest X-Ray * EKG * VBG Shock Panel * BNP * CMP * CBC * Reevaluation Chest X-Ray FINDINGS: LUNGS: No active pulmonary disease. PLEURA: No significant pleural effusion identified. No pneumothorax apparent. CARDIOVASCULAR: Mild cardiomegaly. Atherosclerotic aorta. Pacemaker and lead in place. OSSEOUS STRUCTURES: No significant abnormalities. VISUALIZED UPPER ABDOMEN: Normal. OTHER FINDINGS: None. IMPRESSION: No active disease. Scribe Attestation: Documented by Pastora Ramirez, acting as a scribe for Emmy Paul MD. Provider Scribe Attestation: All medical record entries made by the Scribe were at my direction and personally dictated by me. I have reviewed the chart and agree that the record accurately reflects my personal performance of the history, physical exam, medical decision making, and the department course for this patient. I have also personally directed, reviewed, and agree with the discharge instructions and disposition. 12.15p labs reviewed. chest x-ray normal. EKG no change from previous. Patient feels better and wants to go home as long as the evaluation does not reveal acute process. Daughter is at bedside. Disposition - Clinical Impression Clinical Impression: Shortness of breath - Patient ED Disposition Is Patient to be Admitted: No Doctor Will See Patient In The: Office Counseled Patient/Family Regarding: Diagnosis, Need For Followup - Disposition Referrals: Bernard Da Silva MD [Staff Provider] - Disposition: Routine/Home Disposition Time: 12:35 Condition: STABLE Instructions: Dyspnea (ED) Forms: [facility] (Sudanese) - POA Present On Arrival: None
[2016-11-29 10:29] LABS: VENOUS BLOOD GAS BASE EXCESS 1.5 mmol/L (0.0-2.0); VENOUS BLOOD GAS PCO2 39 mmHg (40-60); VENOUS BLOOD PH 7.43 (7.32-7.43)
[2016-11-29 10:39] LABS: ALB/GLOB RATIO 1.3 (1.0-2.1); ALKALINE PHOSPHATASE 45 U/L (38-126); ALT/SGPT 33 U/L (9-52); AST/SGOT 38 U/L (14-36); BILIRUBIN,TOTAL 0.8 mg/dl (0.2-1.3); BLOOD UREA NITROGEN 20 mg/dl (7-17); CALCIUM 9.2 mg/dL (8.4-10.2); CARBON DIOXIDE 23 mmol/L (22-30); CHLORIDE 107 mmol/L (98-107); GFR AFRICAN-AMERICAN > 60; GLUCOSE,RANDOM 98 mg/dL (65-105); SODIUM 139 mmol/l (132-148); TOTAL PROTEIN 7.2 G/DL (6.3-8.2)
[2016-11-29 10:41] LABS: BASO # 0.2 K/uL (0.0-0.2); BASO % 1.3 % (0.0-2.0); EOS # 0.1 K/uL (0.0-0.7); LYMPH # 1.9 K/uL (1.0-4.3); LYMPH % 14.4 % (20.0-40.0); MEAN CELL VOLUME 92.7 fl (81.0-99.0); MEAN CORPUSCULAR HEMOGLOBIN 30.3 pg (27.0-31.0); MEAN CORPUSCULAR HGB CONC 32.7 g/dL (33.0-37.0); MEAN PLATELET VOLUME 9.1 fl (7.2-11.7); MONO # 1.2 K/uL (0.0-0.8); MONO % 9.1 % (0.0-10.0); NEUT # 9.7 K/uL (1.8-7.0); NEUT % 74.2 % (50.0-75.0); RED CELL DISTRIBUTION WIDTH 17.6 % (11.5-14.5)
[2016-11-29 11:05] LABS: POTASSIUM 4.9 MMOL/L (3.6-5.0)
--- NOTE | 2016-11-29 11:44 | RAD ---
HISTORY: shortness of breath COMPARISON: 11 28 16 TECHNIQUE: Chest PA and lateral FINDINGS: LUNGS: No active pulmonary disease. PLEURA: No significant pleural effusion identified. No pneumothorax apparent. CARDIOVASCULAR: Mild cardiomegaly. Atherosclerotic aorta. Pacemaker and lead in place. OSSEOUS STRUCTURES: No significant abnormalities. VISUALIZED UPPER ABDOMEN: Normal. OTHER FINDINGS: None. IMPRESSION: No active disease.
[2016-11-29 14:39] VITALS: BP 128/69; PULSE 68; TEMP 98.2; O2SAT 100
== END 2016-11-29 14:40 | disposition home or self-care (01) ==
LOC: H.ER 09:04
DX: R06.02 Shortness of breath (principal); I11.0 Hypertensive heart disease with heart failure; J44.9 Chronic obstructive pulmonary disease, unspecified; Z95.0 Presence of cardiac pacemaker; Z86.73 Personal history of transient ischemic attack (TIA), and cerebral infarction without residual deficits; I25.10 Atherosclerotic heart disease of native coronary artery without angina pectoris; M81.0 Age-related osteoporosis without current pathological fracture; Z95.5 Presence of coronary angioplasty implant and graft

== ENCOUNTER 2016-12-06 14:52 | Inpatient (IN) | payer MEDICARE ==
[2016-12-06 14:52] VITALS: BMI 30.2
[2016-12-06] MEDS ORDERED: Sodium Chloride 0.9% 1,000 ML IV STA (15:22)
--- NOTE | 2016-12-06 15:26 | ED PDOC ---
HPI: General Adult Time Seen by Provider: 12/06/16 15:04 Chief Complaint (Nursing): Chest Pain Chief Complaint (Provider): Defribrillator Went Off History Per: Patient History/Exam Limitations: no limitations Onset/Duration Of Symptoms: Hrs Additional Complaint(s): Ashanti Marte, an 81 year old female, with a past medical history of congestive heart failure and cardiac arrhythmia presents to the ED to be evaluated, stating that her defibrillator went off twice within 2 minutes but says she did not pass out. The patient reports states that this has happened twice before in the past. Denies chest pain, nausea, vomiting, difficulty breathing, swelling, fever, chills. PMD: Bernard Ware Past Medical History Reviewed: Historical Data, Nursing Documentation, Vital Signs Vital Signs: Last Vital Signs Temp 97.7 F 12/06/16 17:18 Pulse 114 H 12/06/16 17:18 Resp 22 12/06/16 17:18 BP 131/86 12/06/16 14:54 Pulse Ox 94 L 12/06/16 17:18 - Medical History PMH: Arthritis, Back Problems, Bronchitis, CAD, Cardia Arrhythmia, CHF, COPD, HTN, Hypothyroidism, Osteoporosis, Pneumonia, TIA Denies: HIV, Hypercholesterolemia, Chronic Kidney Disease, Rheumatoid Arthritis - Surgical History Surgical History: Appendectomy, Cholecystectomy, Coronary Stent, Pacemaker (AICD ) - Family History Family History: States: Unknown Family Hx - Immunization History Hx Tetanus Toxoid Vaccination: No Hx Influenza Vaccination: No Hx Pneumococcal Vaccination: No - Home Medications Home Medications: Ambulatory Orders Medication Instructions Recorded Anastrozole [Arimidex] 1 mg PO DAILY 04/29/16 Ascorbic Acid [Vitamin C] 500 mg PO DAILY 04/29/16 Aspirin [Ecotrin] 81 mg PO DAILY 04/29/16 Atorvastatin [Lipitor] 10 mg PO HS 04/29/16 Calcium Carbonate/Vitamin D3 1 tab PO DAILY 04/29/16 [Caltrate 600 Plus D3 Tablet] Levothyroxine [Synthroid] 25 mcg PO DAILY 04/29/16 Losartan [Cozaar] 25 mg PO DAILY 04/29/16 Multivit-Min/FA/Lycopen/Lutein 1 tab PO DAILY 04/29/16 [Centrum Silver Tablet] Furosemide [Lasix] 20 mg PO DAILY 11/16/16 Metoprolol Succinate 50 mg PO BID 11/16/16 Acetaminophen [Tylenol 325mg tab] 650 mg PO Q6 PRN tab 11/20/16 Famotidine [Pepcid] 40 mg PO DAILY 12/06/16 Spironolactone [Aldactone] 25 mg PO DAILY 12/06/16 - Allergies Allergies/Adverse Reactions: Allergies Allergy/AdvReac Type Severity Reaction Status Date / Time No Known Allergies Allergy Verified 12/06/16 14:54 Review of Systems ROS Statement: Except As Marked, All Systems Reviewed And Found Negative Cardiovascular: Positive for: Other (Defribrillator went off twice within 2 minutes.) Physical Exam - Reviewed Nursing Documentation Reviewed: Yes Vital Signs Reviewed: Yes - Physical Exam Appears: Positive for: Non-toxic, No Acute Distress Head Exam: Positive for: ATRAUMATIC, NORMAL INSPECTION, NORMOCEPHALIC Skin: Positive for: Normal Color, Warm, Dry. Negative for: Rash Eye Exam: Positive for: Normal appearance, EOMI, PERRL. Negative for: Nystagmus ENT: Positive for: Normal ENT Inspection. Negative for: Nasal Congestion, Tonsillar Exudate Neck: Positive for: Normal, Painless ROM, Supple Cardiovascular/Chest: Positive for: Chest Non Tender, Tachycardia (120-130bom. Heart rate fluctuating.). Negative for: Regular Rate, Rhythm Respiratory: Positive for: Normal Breath Sounds. Negative for: Rales, Rhonchi, Wheezing, Respiratory Distress Gastrointestinal/Abdominal: Positive for: Normal Exam, Bowel Sounds, Soft. Negative for: Tenderness, Guarding, Rebound Back: Positive for: Normal Inspection. Negative for: L CVA Tenderness, R CVA Tenderness Extremity: Positive for: Normal ROM. Negative for: Tenderness, Deformity, Swelling Neurologic/Psych: Positive for: Alert, Oriented - Laboratory Results Result Diagrams: 12/06/16 15:37 12/06/16 15:37 - ECG O2 Sat by Pulse Oximetry: 100 (RA) Pulse Ox Interpretation: Normal - Physician Consult Information Time Consulting Physican Contacted: 15:00 Physician Contacted: Bernard Da Silva Outcome Of Conversation: start Amiodarone infusion after bolus - Critical Care Total Time (In Min): 30 Notes:: Patient with AICD firing x2 at home. Discussed case with DR. Da Silva. Case d/w Dr. Hernandez and then Dr. Gibbs. will admit to ICU Medical Decision Making Medical Decision Makin Initial Impression: 81 y/o female presenting with Y complex tachycardia Initial Plan: * EKG * BMP * Troponin * Heart Healthy Diet * CBC * Partial thromboplastin * CXR * Prothrombin Time * Amiodarone 150mg dextrose 5% in water IVPB * Amiodarone 450mg IVPB 1mg/min * Reevaluation 1530 EKG performed: Y complex tachycardia at 126bpm. 1546 Dr. Gómez consulted and informed about patient. Scribe Attestation Documented by Jerrica De Los Santos acting as a scribe for Emmy Paul MD. Provider Attestation All medical record entries made by the Scribe were at my direction and personally dictated by me. I have reviewed the chart and agree that the record accurately reflects my personal performance of the history, physical exam, medical decision making, and the department course for this patient. I have also personally directed, reviewed, and agree with the discharge instructions and disposition. Disposition - Clinical Impression Clinical Impression: AICD discharge - Patient ED Disposition Is Patient to be Admitted: Yes - Disposition Disposition: Transfer of Care Disposition Time: 15:48 Condition: GUARDED - Pt Status Changed To: Hospital Disposition Of: Inpatient - Admit Certification Admit to Inpatient:: After my assessment, the patient will require hospitalization for at least two midnights. This is because of the severity of symptoms shown, intensity of services needed, and/or the medical risk in this patient being treated as an outpatient. - POA Present On Arrival: None
[2016-12-06] MEDS ORDERED: Amiodarone 900 MG in Dextrose 5% In Water 500 ML IVPB SCH ×2 (15:42→15:45)
[2016-12-06 15:43] LABS: BASO # 0.1 K/uL (0.0-0.2); BASO % 1.1 % (0.0-2.0); EOS # 0.1 K/uL (0.0-0.7); HEMATOCRIT 37.3 % (34.0-47.0); LYMPH # 2.2 K/uL (1.0-4.3); LYMPH % 19.5 % (20.0-40.0); MEAN CELL VOLUME 93.8 fl (81.0-99.0); MEAN CORPUSCULAR HEMOGLOBIN 30.3 pg (27.0-31.0); MEAN CORPUSCULAR HGB CONC 32.3 g/dL (33.0-37.0); MEAN PLATELET VOLUME 8.9 fl (7.2-11.7); MONO # 1.4 K/uL (0.0-0.8); MONO % 12.6 % (0.0-10.0); NEUT # 7.4 K/uL (1.8-7.0); NEUT % 65.8 % (50.0-75.0); RED CELL DISTRIBUTION WIDTH 17.4 % (11.5-14.5); WHITE BLOOD COUNT 11.3 K/uL (4.8-10.8)
[2016-12-06 16:05] LABS: CALCIUM 9.7 mg/dL (8.4-10.2); POTASSIUM 4.4 MMOL/L (3.6-5.0)
[2016-12-06 16:15] LABS: TROPONIN I 0.033 ng/mL (0.00-0.120)
[2016-12-06 16:23] LABS: PARTIAL THROMBOPLASTIN TIME 27.6 Seconds (25.6-37.1)
--- NOTE | 2016-12-06 16:34 | CP.PCM.HP ---
History of Present Illness - History of Present Illness History of Present Illness: 81 yo female with history of Dilated Cardiomyopathy S/P AICD, S/P Ablation of Ventricular Arrhythmia, CAD, HTN, COPD, CVA, Chronic Low Back Pain, OA and Left Breast Cancer S/P Mastectomy came back claiming her AICD went off twice within 2 minutes of each other around 2:30PM. Denied any complaint aside from feeling the jolt of the defibrillator. Denied SOB or chest pain. Patient was recently discharged a week ago from TCU after PT for deconditioning. Present on Admission - Present on Admission Any Indicators Present on Admission: No History of DVT/PE: No History of Uncontrolled Diabetes: No Urinary Catheter: No Decubitus Ulcer Present: No Review of Systems - Review of Systems Systems not reviewed;Unavailable: Language Barrier (those mentioned above, 12 point system review were negative by me) All systems: reviewed and no additional remarkable complaints except Past Patient History - Infectious Disease Hx of Infectious Diseases: None - Tetanus Immunizations Tetanus Immunization: Unknown - Past Medical History & Family History Past Medical History?: Yes Past Family History: Reviewed and not pertinent - Past Social History Smoking Status: Former Smoker Alcohol: Occasional Drugs: Denies - CARDIAC Hx Cardiac Disorders: Yes Hx Cardia Arrhythmia: Yes Hx Congestive Heart Failure: Yes Hx Heart Attack: Yes Hx Hypercholesterolemia: No Hx Hypertension: Yes Hx Pacemaker: Yes (AICD) - PULMONARY Hx Respiratory Disorders: Yes Hx Bronchitis: Yes Hx Chronic Obstructive Pulmonary Disease (COPD): Yes Hx Pneumonia: Yes - NEUROLOGICAL Hx Neurological Disorder: Yes Hx Transient Ischemic Attacks (TIA): Yes - HEENT Hx HEENT Problems: Yes Hx Cataracts: Yes (sx) Other/Comment: wears eyeglasses - RENAL Hx Chronic Kidney Disease: No - ENDOCRINE/METABOLIC Hx Endocrine Disorders: Yes Hx Hypothyroidism: Yes - HEMATOLOGICAL/ONCOLOGICAL Hx Blood Disorders: No Hx Human Immunodeficiency Virus (HIV): No - INTEGUMENTARY Hx Dermatological Problems: No - MUSCULOSKELETAL/RHEUMATOLOGICAL Hx Arthritis: Yes Hx Back Pain: Yes Hx Falls: Yes Hx Osteoporosis: Yes Hx Rheumatoid Arthritis: No Hx Unsteady Gait: Yes - GASTROINTESTINAL Hx Gastrointestinal Disorders: No - GENITOURINARY/GYNECOLOGICAL Hx Genitourinary Disorders: No - PSYCHIATRIC Hx Psychophysiologic Disorder: No Hx Substance Use: No - SURGICAL HISTORY Hx Appendectomy: Yes Hx Cholecystectomy: Yes Hx Coronary Stent: Yes Hx Mastectomy: Yes (left mastectomy) - ANESTHESIA Hx Anesthesia: Yes Hx Anesthesia Reactions: No Hx Malignant Hyperthermia: No Meds Allergies/Adverse Reactions: Allergies Allergy/AdvReac Type Severity Reaction Status Date / Time No Known Allergies Allergy Verified 12/06/16 14:54 Physical Exam - Constitutional Appears: No Acute Distress - Head Exam Head Exam: ATRAUMATIC - Eye Exam Eye Exam: absent: Scleral icterus - ENT Exam ENT Exam: Mucous Membranes Moist - Neck Exam Neck exam: Negative for: Meningismus - Respiratory Exam Respiratory Exam: absent: Rhonchi, Wheezes, Respiratory Distress - Cardiovascular Exam Cardiovascular Exam: Tachycardia, Irregular Rhythm - GI/Abdominal Exam GI & Abdominal Exam: Soft. absent: Tenderness - Rectal Exam Rectal Exam: Deferred - Extremities Exam Extremities exam: Negative for: calf tenderness, pedal edema - Back Exam Back exam: absent: tenderness - Neurological Exam Neurological exam: Alert, Oriented x3 - Psychiatric Exam Psychiatric exam: Normal Affect - Skin Skin Exam: Dry, Intact Results - Vital Signs Recent Vital Signs: Last Vital Signs Temp 98.0 F 12/06/16 14:54 Pulse 121 H 12/06/16 14:54 Resp 16 12/06/16 14:54 BP 131/86 12/06/16 14:54 Pulse Ox 100 12/06/16 16:13 - Labs Result Diagrams: 12/06/16 15:37 12/06/16 15:37 Labs: Laboratory Results - last 24 hr 12/06/16 12/06/16 15:37 15:37 WBC 11.3 H RBC 3.98 Hgb 12.0 Hct 37.3 MCV 93.8 MCH 30.3 MCHC 32.3 L RDW 17.4 H Plt Count 273 MPV 8.9 Neut % (Auto) 65.8 Lymph % (Auto) 19.5 L [place] % (Auto) 12.6 H Eos % (Auto) 1.0 Baso % (Auto) 1.1 Neut # 7.4 H Lymph # 2.2 [place] # 1.4 H Eos # 0.1 Baso # 0.1 Sodium 142 Potassium 4.4 Chloride 108 H Carbon Dioxide 22 Anion Gap 16 BUN 23 H Creatinine 1.1 Est GFR ( Amer) 58 Est GFR (Non-Af Amer) 48 Random Glucose 91 Calcium 9.7 Troponin I 0.0330 Assessment & Plan (1) AICD discharge Status: Acute Comment: admit to ICU. cardiology consult with Dr Da Silva. Metoprolol Succinate 50mg PO daily (2) Status post ablation of ventricular arrhythmia Status: Chronic Comment: on Metoprolol XL 50mg PO daily (3) Cardiomyopathy Status: Chronic Comment: Lasix 20mg PO daily. Aldactone 25mg PO daily. Losartan 25mg PO daily (4) HTN (hypertension) Status: Chronic Comment: BP stable. Lasix 20mg PO daily. Losartan 25mg PO daily. Metoprolol XL 50mg PO daily (5) CAD (coronary artery disease) Status: Chronic Comment: no chest pain or SOB. Metoprolol XL 25mg PO daily. ASA 81mg PO daily. Lipitor 10mg PO HS (6) COPD (chronic obstructive pulmonary disease) Status: Chronic Comment: no wheezing or SOB. Duoneb q 4hrs prn (7) DVT prophylaxis Status: Acute Comment: Lovenox 40mg SC daily
--- NOTE | 2016-12-06 16:54 | CP.CCUPN ---
CCU Subjective - Physician Review Events Since Last Encounter (Free Text): 12/06/16 16:50 81 female with history of CHF, cardiac arrythmia s/p ablation, s/p AICD/ pacemaker, arthritis, CAD, COPD, HTN, hypothyroid, breast ca s/p surgery s/p chemotherapy and radiation therapy came to ER after her defibrillator went off twice, patient awake, alert, no chest pain, no SOB, no fever, no cough, cardiology was called from ER, events reviewed CCU Objective - Vital Signs / Intake & Output Vital Signs (Last 4 hours): Vital Signs Temp Pulse Resp BP Pulse Ox 12/06/16 16:13 100 12/06/16 14:54 98.0 F 121 H 16 131/86 100 Intake and Output (Last 8hrs): Intake & Output 12/06/16 12/06/16 12/06/16 06:59 14:59 22:59 Weight 150 lb - Physical Exam Head: Positive for: Atraumatic, Normocephalic Pupils: Positive for: PERRL Extroacular Muscles: Positive for: EOMI Conjunctiva: Positive for: Normal Mouth: Positive for: Moist Mucous Membranes Pharnyx: Positive for: Normal Nose (External): Positive for: Atraumatic Nose (Internal): Positive for: Normal Inspection Respiratory/Chest: Positive for: Clear to Auscultation Cardiovascular: Positive for: Normal S1, S2 Abdomen: Positive for: Normal Bowel Sounds Upper Extremity: Positive for: Normal Inspection Lower Extremity: Positive for: Normal Inspection Neurological: Positive for: GCS=15, CN II-XII Intact, Speech Normal Skin: Positive for: Warm Psychiatric: Positive for: Alert, Oriented x 3 - Medications Active Medications: Active Medications Generic Name Dose Route Start Last Admin Trade Name Freq PRN Reason Stop Dose Admin Sodium Chloride 1,000 mls @ 500 mls/hr 12/06/16 15:22 12/06/16 15:46 Sodium Chloride 0.9% IV 12/06/16 17:21 500 mls/hr .Q2H STA Administration Amiodarone HCl 450 mg/ 259 mls @ 34.53 mls/hr 12/06/16 15:45 12/06/16 16:17 Dextrose IVPB 34.53 mls/hr .Q7H31M YUVAL Administration Protocol 1 MG/MIN - Patient Studies Lab Studies: Lab Studies 12/06/16 12/06/16 12/06/16 Range/Units 15:37 15:37 15:37 WBC 11.3 H (4.8-10.8) K/uL RBC 3.98 (3.80-5.20) Mil/uL Hgb 12.0 (12.0-16.0) g/dL Hct 37.3 (34.0-47.0) % MCV 93.8 (81.0-99.0) fl MCH 30.3 (27.0-31.0) pg MCHC 32.3 L (33.0-37.0) g/dL RDW 17.4 H (11.5-14.5) % Plt Count 273 (130-400) K/uL MPV 8.9 (7.2-11.7) fl Neut % (Auto) 65.8 (50.0-75.0) % Lymph % (Auto) 19.5 L (20.0-40.0) % [place] % (Auto) 12.6 H (0.0-10.0) % Eos % (Auto) 1.0 (0.0-4.0) % Baso % (Auto) 1.1 (0.0-2.0) % Neut # 7.4 H (1.8-7.0) K/uL Lymph # 2.2 (1.0-4.3) K/uL [place] # 1.4 H (0.0-0.8) K/uL Eos # 0.1 (0.0-0.7) K/uL Baso # 0.1 (0.0-0.2) K/uL PT 10.0 (9.8-13.1) Seconds INR 1.0 (0.9-1.2) APTT 27.6 (25.6-37.1) Seconds Sodium 142 (132-148) mmol/l Potassium 4.4 (3.6-5.0) MMOL/L Chloride 108 H (98-107) mmol/L Carbon Dioxide 22 (22-30) mmol/L Anion Gap 16 (10-20) BUN 23 H (7-17) mg/dl Creatinine 1.1 (0.7-1.2) mg/dL Est GFR ( Amer) 58 Est GFR (Non-Af Amer) 48 Random Glucose 91 (65-105) mg/dL Calcium 9.7 (8.4-10.2) mg/dL Troponin I 0.0330 (0.00-0.120) ng/mL Laboratory Results - last 24 hr 12/06/16 12/06/16 12/06/16 15:37 15:37 15:37 WBC 11.3 H RBC 3.98 Hgb 12.0 Hct 37.3 MCV 93.8 MCH 30.3 MCHC 32.3 L RDW 17.4 H Plt Count 273 MPV 8.9 Neut % (Auto) 65.8 Lymph % (Auto) 19.5 L [place] % (Auto) 12.6 H Eos % (Auto) 1.0 Baso % (Auto) 1.1 Neut # 7.4 H Lymph # 2.2 [place] # 1.4 H Eos # 0.1 Baso # 0.1 PT 10.0 INR 1.0 APTT 27.6 Sodium 142 Potassium 4.4 Chloride 108 H Carbon Dioxide 22 Anion Gap 16 BUN 23 H Creatinine 1.1 Est GFR ( Amer) 58 Est GFR (Non-Af Amer) 48 Random Glucose 91 Calcium 9.7 Troponin I 0.0330 EKG/Cardiology Studies: Cardiology / EKG Studies 12/06/16 15:20 ELECTROCARDIOGRAM Stat Comment: Mode Of Transportation: Reason For Exam: defib discharge X2 today Fingerstick Blood Sugar Results: 100 Critical Care Progress Note - Nutrition Nutrition: Nutrition Category Date Time Status Heart Healthy Diet [DIET] Diets 12/06/16 Dinner Active Assessment/Plan - Assessment and Plan (Free Text) Assessment: A/P Wide complex tachycardia/V tach, CHF, cardiac arrythmia s/p ablation, s/p AICD/ pacemaker, arthritis, CAD, COPD, HTN, hypothyroid, breast ca s/p surgery s/p chemotherapy and radiation therapy R/O SC - Amioderone drip as per cardiology - Cardiology follow up - Cardiac enzymes - heck electrolytes - O2 supplement - Cardiac monitoring Critical care 35 min
[2016-12-06 17:14] LABS: ABG ALLEN TEST YES; ARTERIAL BLOOD GAS HCO3 23.5 mmol/L (21-28); ARTERIAL BLOOD GAS PH 7.45 (7.35-7.45); ARTERIAL BLOOD GAS PO2 62 mm/Hg (80-100)
--- NOTE | 2016-12-06 17:23 | RAD ---
PROCEDURE: CHEST RADIOGRAPH, 1 VIEW HISTORY: defib discharge X2 COMPARISON: Comparison is made to 11/29/2016 FINDINGS: LUNGS: Interval improvement in the lungs since the previous exam. PLEURA: No pneumothorax or pleural fluid seen. CARDIOVASCULAR: Right-sided pacemaker is again seen in place. OSSEOUS STRUCTURES: No significant abnormalities. VISUALIZED UPPER ABDOMEN: Normal. OTHER FINDINGS: None. IMPRESSION: No active disease.
[2016-12-06] MEDS ORDERED: Influenza Vaccine 18yr & older 0.5 ML/45 MCG SYR IM ONE (18:49)
[2016-12-06] MEDS: Metoprolol Succinate 50 mg XL Tab PO SCH (22:46)
[2016-12-07 05:48] LABS: BASO # 0.1 K/uL (0.0-0.2); BASO % 1.1 % (0.0-2.0); EOS # 0.2 K/uL (0.0-0.7); EOS % 1.4 % (0.0-4.0); HEMATOCRIT 35.2 % (34.0-47.0); LYMPH # 2.2 K/uL (1.0-4.3); LYMPH % 20.3 % (20.0-40.0); MEAN CELL VOLUME 94.7 fl (81.0-99.0); MEAN CORPUSCULAR HEMOGLOBIN 30.5 pg (27.0-31.0); MEAN CORPUSCULAR HGB CONC 32.2 g/dL (33.0-37.0); MEAN PLATELET VOLUME 8.9 fl (7.2-11.7); MONO # 0.9 K/uL (0.0-0.8); MONO % 8.7 % (0.0-10.0); NEUT # 7.4 K/uL (1.8-7.0); NEUT % 68.5 % (50.0-75.0); NRBC % 0.1 % (0.0-0.0); RED CELL DISTRIBUTION WIDTH 17.4 % (11.5-14.5); WHITE BLOOD COUNT 10.8 K/uL (4.8-10.8)
[2016-12-07 06:05] LABS: CALCIUM 8.8 mg/dL (8.4-10.2); POTASSIUM 4.2 MMOL/L (3.6-5.0)
--- NOTE | 2016-12-07 08:45 | CP.PCM.CON ---
History of Present Illness - History of Present Illness History of Present Illness: consultation for ICD defibrillation x 2 HPI: 81 year-old female with history significant for ischemic cardiomyopathy ejection fraction of 30-35% status post anterior wall [place] with angioplasty to left anterior descending artery that was done back in 2012 with residual anterior wall scar. Patient was having progressively worsening sx of her heart failure symptoms back in May for which she was admitted to [facility] at the same time she had severe viral infection. During the hospitalization she had episodes of sustained ventricular tachycardia. She underwent cardiac catheterization showing nonobstructive coronary artery disease and subsequently was kept on IV amiodarone. She subsequently underwent EP evaluation by Dr. Aidan Sanchez and then subsequently had underwent VT ablation with ICD placement. Back in June 2016 she had an episode of inappropriate ICD firing for episode of sustained ventricular tachycardia. She was on mexiletine and amiodarone along with a beta-maritza which was gradually weaning off. She now presents with an episode of her ICD firing while she was in the kitchen cooking them Romanian sauce. She denied having any symptoms prior to the episode of ICD firing. Internal interrogation of her device shows she had an episode of slow ventricular tachycardia which was not able to be aborted with antitachycardia pacing ATP, and therefore she underwent 35 J of defibrillation 2. Review of Systems - Review of Systems All systems: reviewed and no additional remarkable complaints except - Constitutional Constitutional: As Per HPI - EENT Eyes: As Per HPI Ears: As Per HPI Nose/Mouth/Throat: As Per HPI - Breasts Breasts: As Per HPI - Cardiovascular Cardiovascular: As Per HPI - Respiratory Respiratory: As Per HPI - Gastrointestinal Gastrointestinal: As Per HPI - Genitourinary Genitourinary: As Per HPI - Reproductive: Female Reproductive:Female: As Per HPI - Menstruation Menstruation: As Per HPI - Musculoskeletal Musculoskeletal: As Per HPI - Integumentary Integumentary: As Per HPI - Neurological Neurological: As Per HPI - Psychiatric Psychiatric: As Per HPI - Endocrine Endocrine: As Per HPI - Hematologic/Lymphatic Hematologic: As Per HPI Past Patient History - Infectious Disease Hx of Infectious Diseases: None - Tetanus Immunizations Tetanus Immunization: Unknown - Past Medical History & Family History Past Medical History?: Yes Pertinent Family History: +ve for HTN and CAD - Past Social History Smoking Status: Former Smoker - CARDIAC Hx Cardia Arrhythmia: Yes Hx Congestive Heart Failure: Yes Hx Hypercholesterolemia: No Hx Hypertension: Yes Hx Pacemaker: Yes (AICD) Other/Comment: Angioplasty - PULMONARY Hx Bronchitis: Yes Hx Chronic Obstructive Pulmonary Disease (COPD): Yes Hx Pneumonia: Yes - NEUROLOGICAL Hx Transient Ischemic Attacks (TIA): Yes - HEENT Hx HEENT Problems: Yes Hx Cataracts: Yes (Extracted) - RENAL Hx Chronic Kidney Disease: No - ENDOCRINE/METABOLIC Hx Hypothyroidism: Yes - HEMATOLOGICAL/ONCOLOGICAL Hx Human Immunodeficiency Virus (HIV): No - INTEGUMENTARY Hx Dermatological Problems: No - MUSCULOSKELETAL/RHEUMATOLOGICAL Hx Arthritis: Yes Hx Back Pain: Yes Hx Falls: No Hx Osteoporosis: Yes Hx Rheumatoid Arthritis: No - GASTROINTESTINAL Hx Gastrointestinal Disorders: No - GENITOURINARY/GYNECOLOGICAL Hx Genitourinary Disorders: No - PSYCHIATRIC Hx Psychophysiologic Disorder: No Hx Substance Use: No - SURGICAL HISTORY Hx Angioplasty: Yes Hx Appendectomy: Yes Hx Cholecystectomy: Yes Hx Coronary Stent: Yes Hx Mastectomy: Yes (Left breast) - ANESTHESIA Hx Anesthesia: Yes Hx Anesthesia Reactions: No Hx Malignant Hyperthermia: No Meds Allergies/Adverse Reactions: Allergies Allergy/AdvReac Type Severity Reaction Status Date / Time No Known Allergies Allergy Verified 12/06/16 14:54 - Medications Medications: Current Medications Atorvastatin Calcium (Lipitor) 10 mg PO HS [facility] Last Admin: 12/06/16 22:46 Dose: 10 mg Calcium/Vitamin D (Oyster Shell Calcium/Vitamin D 500 Mg-200 Iu) 1 tab PO DAILY [facility] Enoxaparin Sodium (Lovenox) 30 mg SC DAILY YUVAL PRN Reason: Protocol Famotidine (Pepcid) 40 mg PO DAILY [facility] Furosemide (Lasix) 20 mg IVP DAILY [facility] Amiodarone HCl 450 mg/ (Dextrose) 259 mls @ 34.53 mls/hr IVPB .Q7H31M YUVAL; 1 MG /MIN PRN Reason: Protocol Last Admin: 12/06/16 16:17 Dose: 34.53 mls/hr Levothyroxine Sodium (Synthroid) 25 mcg PO DAILY [facility] Losartan Potassium (Cozaar) 25 mg PO DAILY [facility] Metoprolol Succinate (Toprol Xl) 50 mg PO BID [facility] Last Admin: 12/06/16 22:46 Dose: 50 mg Multivitamins/Minerals (Therapeutic-M Tab) 1 tab PO DAILY [facility] Spironolactone (Aldactone) 25 mg PO DAILY [facility] Physical Exam - Constitutional Appears: Well - Head Exam Head Exam: ATRAUMATIC, NORMAL INSPECTION, NORMOCEPHALIC - Eye Exam Eye Exam: EOMI, Normal appearance, PERRL Pupil Exam: NORMAL ACCOMODATION, PERRL - ENT Exam ENT Exam: Mucous Membranes Moist, Normal Exam - Neck Exam Neck exam: Positive for: Normal Inspection - Respiratory Exam Respiratory Exam: Clear to Auscultation Bilateral, NORMAL BREATHING PATTERN - Cardiovascular Exam Cardiovascular Exam: REGULAR RHYTHM, RRR, +S1, +S2, Systolic Murmur - GI/Abdominal Exam GI & Abdominal Exam: Normal Bowel Sounds, Soft. absent: Tenderness - Extremities Exam Extremities exam: Positive for: normal inspection - Back Exam Back exam: NORMAL INSPECTION - Neurological Exam Neurological exam: Alert, CN II-XII Intact, Normal Gait, Oriented x3, Reflexes Normal - Psychiatric Exam Psychiatric exam: Normal Affect, Normal Mood - Skin Skin Exam: Dry, Intact, Normal Color, Warm Results - Vital Signs Recent Vital Signs: Last Vital Signs Temp 97.3 F L 12/07/16 04:00 Pulse 66 12/07/16 07:00 Resp 27 H 12/07/16 07:00 BP 172/78 H 12/07/16 07:00 Pulse Ox 96 12/07/16 07:00 - Labs Result Diagrams: 12/08/16 04:30 12/08/16 04:30 Labs: Laboratory Results - last 24 hr 12/06/16 12/06/16 12/06/16 15:26 15:37 15:37 WBC 11.3 H RBC 3.98 Hgb 12.0 Hct 37.3 MCV 93.8 MCH 30.3 MCHC 32.3 L RDW 17.4 H Plt Count 273 MPV 8.9 Neut % (Auto) 65.8 Lymph % (Auto) 19.5 L [place] % (Auto) 12.6 H Eos % (Auto) 1.0 Baso % (Auto) 1.1 Neut # 7.4 H Lymph # 2.2 [place] # 1.4 H Eos # 0.1 Baso # 0.1 PT INR APTT pCO2 pO2 HCO3 ABG pH ABG Total CO2 ABG O2 Saturation ABG Base Excess Baljeet Test ABG Potassium A-a O2 Difference Glucose Lactate FiO2 Sodium 142 Potassium 4.4 Chloride 108 H Carbon Dioxide 22 Anion Gap 16 BUN 23 H Creatinine 1.1 Est GFR ( Amer) 58 Est GFR (Non-Af Amer) 48 POC Glucose (mg/dL) 100 Random Glucose 91 Calcium 9.7 Troponin I 0.0330 Arterial Blood Potassium 12/06/16 12/06/16 12/07/16 15:37 17:09 04:15 WBC 10.8 RBC 3.72 L Hgb 11.4 L Hct 35.2 MCV 94.7 MCH 30.5 MCHC 32.2 L RDW 17.4 H Plt Count 246 MPV 8.9 Neut % (Auto) 68.5 Lymph % (Auto) 20.3 [place] % (Auto) 8.7 Eos % (Auto) 1.4 Baso % (Auto) 1.1 Neut # 7.4 H Lymph # 2.2 [place] # 0.9 H Eos # 0.2 Baso # 0.1 PT 10.0 INR 1.0 APTT 27.6 pCO2 31 L pO2 62 L HCO3 23.5 ABG pH 7.45 ABG Total CO2 22.5 ABG O2 Saturation 96.8 ABG Base Excess -1.6 Baljeet Test Yes ABG Potassium 4.2 A-a O2 Difference 49.0 Glucose 111 H Lactate 1.1 FiO2 21.0 Sodium 139.0 Potassium Chloride 109.0 H Carbon Dioxide Anion Gap BUN Creatinine Est GFR ( Amer) Est GFR (Non-Af Amer) POC Glucose (mg/dL) Random Glucose Calcium Troponin I Arterial Blood Potassium 4.2 12/07/16 04:15 WBC RBC Hgb Hct MCV MCH MCHC RDW Plt Count MPV Neut % (Auto) Lymph % (Auto) [place] % (Auto) Eos % (Auto) Baso % (Auto) Neut # Lymph # [place] # Eos # Baso # PT INR APTT pCO2 pO2 HCO3 ABG pH ABG Total CO2 ABG O2 Saturation ABG Base Excess Baljeet Test ABG Potassium A-a O2 Difference Glucose Lactate FiO2 Sodium 135 Potassium 4.2 Chloride 105 Carbon Dioxide 20 L Anion Gap 14 BUN 18 H Creatinine 1.1 Est GFR ( Amer) 58 Est GFR (Non-Af Amer) 48 POC Glucose (mg/dL) Random Glucose 189 H Calcium 8.8 Troponin I Arterial Blood Potassium Assessment & Plan (1) V-tach Assessment and Plan: ICD interrogation shows slow V-tach at rates of 140 which didn't abort with ATP pacing and required ICD firing x 2 with 35J IV amiodarone gtt loading done in ICU on po amiodarone 400mg po bid x 7 days will uptitrate dose of BB Status: Acute (2) Defibrillator discharge Assessment and Plan: slow VT s/p defibrillator Status: Acute (3) CAD (coronary artery disease) Assessment and Plan: cont with asa, bb, statins Status: Chronic (4) CHF (congestive heart failure) Assessment and Plan: will check BNP and echo to re-evaluate to LVEF and filling pressures Status: Chronic Priority: High (5) HLD (hyperlipidemia) Assessment and Plan: cont with statins Status: Chronic (6) Status post ablation of ventricular arrhythmia Status: Chronic
[2016-12-07] MEDS: Enoxaparin 30 mg Syringe SC SCH (08:58)
[2016-12-07] MEDS: Calcium-Vit D 500 mg-200 Units Tab UD PO SCH (08:59)
[2016-12-07] MEDS: Levothyroxine 25 MCG TAB PO SCH (09:00)
[2016-12-07] MEDS: Multivitamin With Minerals Tab PO SCH (09:00)
[2016-12-07] MEDS ORDERED: Metoprolol Succinate 50 mg XL Tab PO SCH (09:00)
[2016-12-07] MEDS: Metoprolol Succinate 50 mg XL Tab PO SCH ×2 (09:01→17:39)
--- NOTE | 2016-12-07 14:14 | CP.PCM.PN ---
Subjective - Date & Time of Evaluation Date of Evaluation: 12/07/16 Time of Evaluation: 14:05 - Subjective Subjective: pt seen and examined at bedside on amio drip discussed with Cardiology Dr. Da Silva, will switch to PO amio after gtt, in addition to BB pt to be interrogated around 4pm today HD stable NAD Objective - Vital Signs/Intake and Output Vital Signs (last 24 hours): Temp Pulse Resp BP Pulse Ox 98 F 62 23 116/61 98 12/07/16 12:00 12/07/16 12:00 12/07/16 12:00 12/07/16 12:00 12/07/16 12:00 GEN: WDWN, alert, cooperative HEENT: NCAT, PERRL, EOMI Neck: supple, no lymphadenopathy CARDIO: +S1S2, RRR, NO M/R/G LUNG: CTAB, NO W/R/R ABD: soft, NT, ND, no masses, no HSM EXT: no edema, pedal pulses Neuro: AAOx3, Strength equal, bilateral UE/LE Psych: normal mood, normal affect Intake and Output: 12/07/16 12/07/16 06:59 18:59 Intake Total 384 50 Output Total 475 100 Balance -91 -50 - Medications Medications: Current Medications Anastrozole (Arimidex 1 Mg Tab) 1 mg PO DAILY [facility] Last Admin: 12/07/16 12:21 Dose: 1 mg Aspirin (Ecotrin) 81 mg PO DAILY [facility] Last Admin: 12/07/16 12:21 Dose: 81 mg Atorvastatin Calcium (Lipitor) 10 mg PO HS [facility] Last Admin: 12/06/16 22:46 Dose: 10 mg Calcium/Vitamin D (Oyster Shell Calcium/Vitamin D 500 Mg-200 Iu) 1 tab PO DAILY [facility] Last Admin: 12/07/16 08:59 Dose: 1 tab Enoxaparin Sodium (Lovenox) 30 mg SC DAILY [facility] PRN Reason: Protocol Last Admin: 12/07/16 08:58 Dose: 30 mg Famotidine (Pepcid) 40 mg PO DAILY [facility] Last Admin: 12/07/16 08:59 Dose: 40 mg Furosemide (Lasix) 20 mg IVP DAILY [facility] Last Admin: 12/07/16 08:58 Dose: Not Given Amiodarone HCl 450 mg/ (Dextrose) 259 mls @ 34.53 mls/hr IVPB .Q7H31M YUVAL; 1 MG /MIN PRN Reason: Protocol Last Admin: 12/06/16 16:17 Dose: 34.53 mls/hr Levothyroxine Sodium (Synthroid) 25 mcg PO DAILY [facility] Last Admin: 12/07/16 09:00 Dose: 25 mcg Losartan Potassium (Cozaar) 25 mg PO DAILY [facility] Last Admin: 12/07/16 08:56 Dose: 25 mg Metoprolol Succinate (Toprol Xl) 50 mg PO BID [facility] Last Admin: 12/07/16 09:01 Dose: 50 mg Multivitamins/Minerals (Therapeutic-M Tab) 1 tab PO DAILY [facility] Last Admin: 12/07/16 09:00 Dose: 1 tab Spironolactone (Aldactone) 25 mg PO DAILY [facility] Last Admin: 12/07/16 08:56 Dose: 25 mg - Labs Labs: 12/07/16 04:15 12/07/16 04:15 PT 10.0 Seconds (9.8-13.1) 12/06/16 15:37 INR 1.0 (0.9-1.2) 12/06/16 15:37 APTT 27.6 Seconds (25.6-37.1) 12/06/16 15:37 Assessment and Plan - Assessment and Plan (Free Text) Plan: 81 yo female with history of Dilated Cardiomyopathy S/P AICD, S/P Ablation of Ventricular Arrhythmia, CAD, HTN, COPD, CVA, Chronic Low Back Pain, OA and Left Breast Cancer S/P Mastectomy came back claiming her AICD went off twice within 2 minutes of each other around 2:30PM. Denied any complaint aside from feeling the jolt of the defibrillator. Denied SOB or chest pain. Patient was recently discharged a week ago from TCU after PT for deconditioning. (1) AICD discharge with Wide Complex Tachycardia cardiology consult with Dr Da Silva, discussed on Amio drip, continue until tomorrow and switch to 400 PO BID patient to be evaluated at around 4pm today Metoprolol Succinate 50mg PO daily (2) Status post ablation of ventricular arrhythmia on Metoprolol XL 50mg PO daily (3) Cardiomyopathy Lasix 20mg PO daily Aldactone 25mg PO daily. Losartan 25mg PO daily (4) HTN (hypertension) BP stable. Lasix 20mg PO daily Losartan 25mg PO daily Metoprolol XL 50mg PO daily (5) CAD (coronary artery disease) no chest pain or SOB Metoprolol XL 50mg PO daily ASA 81mg PO daily. Lipitor 10mg PO HS (6) COPD (chronic obstructive pulmonary disease) no wheezing or SOB Duoneb q 4hrs prn (7) DVT prophylaxis Lovenox 40mg SC daily
--- NOTE | 2016-12-07 17:30 | CARD ---
APPROVED REPORT EKG Measurement Heart [id number] <Conclusion> Wide QRS tachycardia Right bundle branch block Possible Lateral infarct, age undetermined Possible inferior infarct, age undetermined Abnormal ECG
--- NOTE | 2016-12-07 17:34 | CARD ---
APPROVED REPORT EKG Measurement Heart [id number] <Conclusion> Normal sinus rhythm Minimal voltage criteria for LVH, may be normal variant Possible inferior infarct, age undetermined T wave abnormality, consider lateral ischemia Abnormal ECG
[2016-12-08 05:16] LABS: HEMATOCRIT 36.5 % (34.0-47.0); MEAN CELL VOLUME 93.9 fl (81.0-99.0); MEAN CORPUSCULAR HEMOGLOBIN 30.5 pg (27.0-31.0); MEAN CORPUSCULAR HGB CONC 32.5 g/dL (33.0-37.0); RED CELL DISTRIBUTION WIDTH 17.1 % (11.5-14.5); WHITE BLOOD COUNT 10.5 K/uL (4.8-10.8)
[2016-12-08 05:31] LABS: CALCIUM 9.1 mg/dL (8.4-10.2)
--- NOTE | 2016-12-08 08:32 | CP.PCM.PN ---
Subjective - Date & Time of Evaluation Date of Evaluation: 12/08/16 Time of Evaluation: 08:30 - Subjective Subjective: rhythm stable in NSR on amiodarone ICD interrogated Discussed with EP about plan Objective - Vital Signs/Intake and Output Vital Signs (last 24 hours): Temp Pulse Resp BP Pulse Ox 97.6 F 60 18 143/57 L 100 12/08/16 07:40 12/08/16 06:00 12/08/16 06:00 12/08/16 06:00 12/08/16 06:00 Intake and Output: 12/08/16 12/08/16 06:59 18:59 Intake Total 530 Balance 530 - Medications Medications: Current Medications Acetaminophen (Tylenol 325mg Tab) 650 mg PO Q6 PRN PRN Reason: Headache Last Admin: 12/07/16 23:34 Dose: 650 mg Amiodarone HCl (Cordarone) 400 mg PO BID [facility] Anastrozole (Arimidex 1 Mg Tab) 1 mg PO DAILY [facility] Last Admin: 12/07/16 12:21 Dose: 1 mg Aspirin (Ecotrin) 81 mg PO DAILY [facility] Last Admin: 12/07/16 12:21 Dose: 81 mg Atorvastatin Calcium (Lipitor) 10 mg PO HS [facility] Last Admin: 12/07/16 21:26 Dose: 10 mg Calcium/Vitamin D (Oyster Shell Calcium/Vitamin D 500 Mg-200 Iu) 1 tab PO DAILY [facility] Last Admin: 12/07/16 08:59 Dose: 1 tab Enoxaparin Sodium (Lovenox) 30 mg SC DAILY [facility] PRN Reason: Protocol Last Admin: 12/07/16 08:58 Dose: 30 mg Famotidine (Pepcid) 40 mg PO DAILY [facility] Last Admin: 12/07/16 08:59 Dose: 40 mg Furosemide (Lasix) 20 mg IVP DAILY [facility] Last Admin: 12/07/16 08:58 Dose: Not Given Amiodarone HCl 450 mg/ (Dextrose) 259 mls @ 34.53 mls/hr IVPB .Q7H31M YUVAL; 1 MG /MIN PRN Reason: Protocol Last Admin: 12/06/16 16:17 Dose: 34.53 mls/hr Levothyroxine Sodium (Synthroid) 25 mcg PO DAILY [facility] Last Admin: 12/07/16 09:00 Dose: 25 mcg Losartan Potassium (Cozaar) 25 mg PO DAILY [facility] Last Admin: 12/07/16 08:56 Dose: 25 mg Metoprolol Succinate (Toprol Xl) 50 mg PO Q12 [facility] Multivitamins/Minerals (Therapeutic-M Tab) 1 tab PO DAILY [facility] Last Admin: 12/07/16 09:00 Dose: 1 tab Spironolactone (Aldactone) 25 mg PO DAILY [facility] Last Admin: 12/07/16 08:56 Dose: 25 mg - Labs Labs: 12/08/16 04:30 12/08/16 04:30 PT 10.0 Seconds (9.8-13.1) 12/06/16 15:37 INR 1.0 (0.9-1.2) 12/06/16 15:37 APTT 27.6 Seconds (25.6-37.1) 12/06/16 15:37 - Constitutional Appears: Well - Head Exam Head Exam: ATRAUMATIC, NORMAL INSPECTION, NORMOCEPHALIC - Eye Exam Eye Exam: EOMI, Normal appearance, PERRL Pupil Exam: NORMAL ACCOMODATION, PERRL - ENT Exam ENT Exam: Mucous Membranes Moist, Normal Exam - Neck Exam Neck Exam: Full ROM, Normal Inspection. absent: Lymphadenopathy - Respiratory Exam Respiratory Exam: Clear to Ausculation Bilateral, NORMAL BREATHING PATTERN - Cardiovascular Exam Cardiovascular Exam: REGULAR RHYTHM, +S1, +S2, Murmur - GI/Abdominal Exam GI & Abdominal Exam: Soft, Normal Bowel Sounds. absent: Tenderness - Extremities Exam Extremities Exam: Full ROM, Normal Capillary Refill, Normal Inspection. absent : Joint Swelling, Pedal Edema - Back Exam Back Exam: NORMAL INSPECTION - Neurological Exam Neurological Exam: Alert, Awake, CN II-XII Intact, Oriented x3 - Psychiatric Exam Psychiatric exam: Normal Affect, Normal Mood - Skin Skin Exam: Dry, Intact, Normal Color, Warm Assessment and Plan (1) V-tach Assessment & Plan: rhythm stable on Amiodarone cont amiodarone 400mg po bid x 7 days increase dose of BB as BP tolerates Status: Acute (2) Defibrillator discharge Assessment & Plan: appropriate ICD firing for slow V-tach Status: Acute (3) CAD (coronary artery disease) Assessment & Plan: stable cont with asa, bb, statins Status: Chronic (4) CHF (congestive heart failure) Assessment & Plan: check BNP and echo Status: Chronic (5) HLD (hyperlipidemia) Assessment & Plan: cont statins Status: Chronic (6) Status post ablation of ventricular arrhythmia Assessment & Plan: adjustment of meds Status: Chronic
--- NOTE | 2016-12-08 08:52 | PN ---
DATE: 12/07/2016 CRITICAL CARE PROGRESS NOTE LOCATION: The patient in ICU, bed 432. TIME SPENT: 35 minutes. SUBJECTIVE: The patient is seen and evaluated at the bedside. Events since admission noted. An 81-year-old female with a history of dilated cardiomyopathy, status post AICD, status post ablation of ventricular arrhythmia; CAD, hypertension; chronic obstructive pulmonary disease, severe; chronic low back pain, osteoarthritis, and left breast cancer, status post mastectomy, admitted after feeling AICD firing noted to be [id number] shortness of breath this morning, treated with diuretic, improved. Remains less short of breath. No chest pain or palpitation. No further feeling of being shocked by AICD. PHYSICAL EXAMINATION: VITAL SIGNS: Temperature 98, heart rate 67, blood pressure 139/70, respiratory rate 18, pulse oxymetry 96% on oxygen 2 L nasal cannula, intake 384 mL and output 475, negative balance 91. Weight 150 pounds. HEAD, EYES, EARS, NOSE AND THROAT: Pupils reactive. Conjunctiva pink. Sclerae white. NECK: Supple. Trachea central. ICD placed on the right infraclavicular area. HEART: Rhythm regular. S1 and S2 normal. ABDOMEN: Bowel sounds present and soft. EXTREMITIES: Trace edema. NEUROLOGIC: Nonfocal. SKIN: Warm to touch. No rash noted. PSYCHIATRIC: Affect normal. CURRENT MEDICATIONS: Amiodarone 450 mg in 259 mL at 34.53 mL per 1 mg per minute, Arimidex 1 mg daily, Ecotrin 81 mg daily, Lipitor 10 mg at bedtime, calcium with vitamin D one tablet daily, Lovenox 30 subcutaneous daily, Pepcid 40 mg p.o. daily, Lasix 20 mg IV daily, Synthroid 25 mcg p.o. daily, Cozaar 25 mg p.o. daily, metoprolol 50 mg p.o. b.i.d., multivitamin with minerals one tablet p.o. daily, and spironolactone 25 mg p.o. daily. LABORATORY DATA: WBC 10.8, hemoglobin 11.4, hematocrit 35.2, and platelet count 246, neutrophils 68.5, lymphocytes 20.3, monocytes 8.7, PT 10, INR 1 and PTT 27.6. ABG; pH 7.45, pCO2 of 31, pO2 of 62, saturation 96.8 on FiO2 21%. SMA-7; sodium 145, potassium 4.2, chloride 105, CO2 is 20, blood urea nitrogen 18, creatinine 1.1, random glucose 189, calcium 8.8. Troponin 0.0430. Microbiology, no growth reported. Chest x-ray, right-sided pacemaker ,no_ significant abnormalities. IMPRESSION: Admitted with wide complex tachycardia/ventricular tachycardia, congestive heart failure, cardiac arrhythmia, status post ablation, status post automatic implantable cardioverter-defibrillator pacemaker, arthritis, coronary artery disease, chronic obstructive pulmonary disease, hypertension, hypothyroidism; carcinoma of breast, status post surgery, status post chemo and radiation therapy. Currently on amiodarone drip as per cardiology, remains clinically stable. Pacemaker/automatic implantable cardioverter-defibrillator interrogation as per cardiology. Maintain electrolytes within normal limits, oxygen supplement, continue current medications. Cullen Ogden MD < MTDD
[2016-12-08] MEDS: Metoprolol Succinate 50 mg XL Tab PO SCH ×2 (09:10→22:27)
[2016-12-08] MEDS: Levothyroxine 25 MCG TAB PO SCH (09:10)
[2016-12-08] MEDS: Multivitamin With Minerals Tab PO SCH (10:14)
[2016-12-08] MEDS: Calcium-Vit D 500 mg-200 Units Tab UD PO SCH (10:14)
[2016-12-08] MEDS: Enoxaparin 30 mg Syringe SC SCH (10:14)
--- NOTE | 2016-12-08 10:53 | PQF CHF ---
This form is a permanent part of the medical record 12/08/16 Dr. Da Silva, Please specify the type and acuity of heart failure in your progress notes after workup. Documentation of a history of CHF with an EF of 30-35%. Awaiting Echo and BNP results. Medication includes Lasix, Cozaar. Clarification of your documentation is requested to better reflect the severity of illness and intensity of treatment of your patient. Indicators present [x] Diagnosis of CHF and/or history of CHF [] BNP > 200 : PENDING [] Imaging Finding of Pulmonary Edema /Pleural Effusions [] Fluid/Volume Overload [] Pitting edema [x] Ejection Fraction < 40% (Indicative of Systolic Heart Failure) MD Note [] Ejection Fraction > 40% (Indicative of Diastolic Heart Failure) [] Dyspnea / Orthopenea / Paroxysmal Nocturnal Dyspnea [] Other: Location in the medical record that reflects the above clinical findings: [] Treatment Provided: [x] PHYSICIAN'S RESPONSE Based on your medical judgment of the clinical indicators outlined above, are you treating this patient for a known or suspected: [] Acute CHF [] Systolic [] Diastolic [] Combined [x] Chronic CHF [] Systolic [] Diastolic [x] Combined [] Acute on Chronic CHF []Systolic [] Diastolic [] Combined [] CHF due hypertension [] Acute systolic []Chronic systolic [] Acute/ chronic systolic [] Other, please indicate: [] [] If Unable to Determine, please check the box, sign and date. Present On Admission (POA) Indicator: [x] Present at the time of admission [] Not present at the time of admission [] Clinically Undetermined In responding to this query, please exercise your independent professional judgment. The fact that a question is asked does not imply that any particular answer is desired or expected. Thank you for your clarification on this documentation. If you have any questions please call:extension [phone] * Thank you, Elizabeth Delgado RN CDMP MTDD
--- NOTE | 2016-12-08 13:18 | CP.PCM.PN ---
Subjective - Date & Time of Evaluation Date of Evaluation: 12/08/16 Time of Evaluation: 13:17 - Subjective Subjective: pt seen examined bedside, currently without chest pain, dyspnea discussed with cardiology Dr Da Silva appropriate ICD firing HD stable on PO amiodarone for ECHO and BNP Objective - Vital Signs/Intake and Output Vital Signs (last 24 hours): Temp Pulse Resp BP Pulse Ox 98.5 F 71 19 135/64 95 12/08/16 12:00 12/08/16 12:00 12/08/16 12:00 12/08/16 12:00 12/08/16 09:00 Intake and Output: 12/08/16 12/08/16 06:59 18:59 Intake Total 530 360 Balance 530 360 GEN: WDWN, alert, cooperative HEENT: NCAT, PERRL, EOMI Neck: supple, no lymphadenopathy CARDIO: +S1S2, RRR, NO M/R/G LUNG: CTAB, NO W/R/R ABD: soft, NT, ND, no masses, no HSM EXT: no edema, pedal pulses Neuro: AAOx3, Strength equal, bilateral UE/LE Psych: normal mood, normal affect - Medications Medications: Current Medications Acetaminophen (Tylenol 325mg Tab) 650 mg PO Q6 PRN PRN Reason: Headache Last Admin: 12/07/16 23:34 Dose: 650 mg Amiodarone HCl (Cordarone) 400 mg PO BID [facility] Last Admin: 12/08/16 10:13 Dose: 400 mg Anastrozole (Arimidex 1 Mg Tab) 1 mg PO DAILY [facility] Last Admin: 12/08/16 10:15 Dose: 1 mg Aspirin (Ecotrin) 81 mg PO DAILY [facility] Last Admin: 12/08/16 10:13 Dose: 81 mg Atorvastatin Calcium (Lipitor) 10 mg PO HS [facility] Last Admin: 12/07/16 21:26 Dose: 10 mg Calcium/Vitamin D (Oyster Shell Calcium/Vitamin D 500 Mg-200 Iu) 1 tab PO DAILY [facility] Last Admin: 12/08/16 10:14 Dose: 1 tab Enoxaparin Sodium (Lovenox) 30 mg SC DAILY [facility] PRN Reason: Protocol Last Admin: 12/08/16 10:14 Dose: 30 mg Famotidine (Pepcid) 40 mg PO DAILY [facility] Last Admin: 12/08/16 10:14 Dose: 40 mg Furosemide (Lasix) 20 mg IVP DAILY [facility] Last Admin: 12/07/16 08:58 Dose: Not Given Furosemide (Lasix) 20 mg PO DAILY [facility] Amiodarone HCl 450 mg/ (Dextrose) 259 mls @ 34.53 mls/hr IVPB .Q7H31M YUVAL; 1 MG /MIN PRN Reason: Protocol Last Admin: 12/06/16 16:17 Dose: 34.53 mls/hr Levothyroxine Sodium (Synthroid) 25 mcg PO DAILY [facility] Last Admin: 12/08/16 09:10 Dose: 25 mcg Losartan Potassium (Cozaar) 25 mg PO DAILY [facility] Last Admin: 12/08/16 10:13 Dose: 25 mg Metoprolol Succinate (Toprol Xl) 50 mg PO Q12 [facility] Last Admin: 12/08/16 09:10 Dose: 50 mg Multivitamins/Minerals (Therapeutic-M Tab) 1 tab PO DAILY [facility] Last Admin: 12/08/16 10:14 Dose: 1 tab Spironolactone (Aldactone) 25 mg PO DAILY [facility] Last Admin: 12/08/16 10:13 Dose: 25 mg - Labs Labs: 12/08/16 04:30 12/08/16 04:30 PT 10.0 Seconds (9.8-13.1) 12/06/16 15:37 INR 1.0 (0.9-1.2) 12/06/16 15:37 APTT 27.6 Seconds (25.6-37.1) 12/06/16 15:37 Assessment and Plan - Assessment and Plan (Free Text) Plan: 81 yo female with history of Dilated Cardiomyopathy S/P AICD, S/P Ablation of Ventricular Arrhythmia, CAD, HTN, COPD, CVA, Chronic Low Back Pain, OA and Left Breast Cancer S/P Mastectomy came back claiming her AICD went off twice within 2 minutes of each other around 2:30PM. Denied any complaint aside from feeling the jolt of the defibrillator. Denied SOB or chest pain. Patient was recently discharged a week ago from TCU after PT for deconditioning. Pt doing well, controlled, may be transferred to tele (1) [facility] with Dr Da Silva, discussed controlled on Amio changed to 400 PO BID Metoprolol Succinate 50mg PO BID (2) Status post ablation of ventricular arrhythmia on Metoprolol XL 50mg PO daily (3) CHF ECHO and BNP today Lasix 20mg PO daily Aldactone 25mg PO daily. Losartan 25mg PO daily (4) HTN (hypertension) BP stable. Lasix 20mg PO daily Losartan 25mg PO daily Metoprolol XL 50mg PO daily (5) CAD (coronary artery disease) no chest pain or SOB Metoprolol XL 50mg PO daily ASA 81mg PO daily. Lipitor 10mg PO HS (6) COPD (chronic obstructive pulmonary disease) no wheezing or SOB Duoneb q 4hrs prn (7) DVT prophylaxis Lovenox 40mg SC daily
--- NOTE | 2016-12-08 17:22 | PN ---
DATE: 12/08/2016 CRITICAL CARE PROGRESS NOTE LOCATION: The patient in ICU, bed 432. TIME SPENT: 35 minutes. SUBJECTIVE: Seen and examined at the bedside. Case discussed in a.m. ICU rounds. Overnight, status post AICD interrogation, showed slow V-tach with appropriate ICD discharge. No further ICD discharge noted. Remained normotensive, afebrile, on amiodarone drip, switched to p.o. amiodarone this morning. Remains alert, awake, follows commands appropriate, complaining of feeling tired. No shortness of breath, chest pain, or palpitation. PHYSICAL EXAMINATION VITAL SIGNS: Temperature 97.6, heart rate 67 and regular, blood pressure 123/60, mean arterial pressure 81, respiratory rate 18, thoracoabdominal; saturating 95% on room air. HEAD, EYES, EARS, NOSE, AND THROAT: Pupils are reactive. Conjunctivae pink. Sclerae white. NECK: Supple. No carotid bruit. Trachea central. CHEST: Bilateral breath sounds, clear to auscultation. HEART: Rhythm regular. S1 and S2 normal in intensity. No S3, S4 or gallop. No audible murmur. ABDOMEN: Bowel sounds present, soft. Liver and spleen not palpable. Bladder not distended. EXTREMITIES: Trace edema. Peripheral pulses are intact, reduced in intensity. NEUROLOGICAL: Nonfocal. CURRENT MEDICATIONS: Amiodarone 400 mg twice daily, Tylenol 650 q.6 p.r.n., anastrozole 1 mg p.o. daily, aspirin 81 mg daily, Lipitor 10 mg daily, calcium with vitamin D one tablet daily, Lovenox 30 subcu daily, Pepcid 20 IV daily, levothyroxine 25 mcg daily, metoprolol 50 mg p.o. q.12 hours, Aldactone 25 mg p.o. daily, multivitamin tablet daily. IMPRESSION: 1. Cardiac: Status post mild ventricular tachycardia with appropriate automatic implantable cardioverter-defibrillator discharge confirmed in implantable cardioverter-defibrillator interrogation done last night. Currently on amiodarone, switched to p.o. Remains stable without further arrhythmia or implantable cardioverter-defibrillator discharge. On beta-maritza, to increase dose as blood pressure is tolerated. 2. Coronary artery disease, stable, on aspirin, beta-maritza, and statins. 3. Cardiomyopathy/congestive heart failure. Follow BNP and echocardiogram. Continue spironolactone and angiotensin-converting enzyme inhibitor. 4. Hyperlipidemia, on statin. Status post ablation of ventricular arrhythmia. Appreciate Cardiology input. The patient maybe transferred to telemetry floor and monitor further episodes of implantable cardioverter-defibrillator discharge. Cullen Ogden MD
--- NOTE | 2016-12-08 19:13 | CARD ---
APPROVED REPORT EXAM: Two-dimensional and M-mode echocardiogram with Doppler and color Doppler. Other Information Quality : GoodRhythm : Pacemaker INDICATION Abnormal EKG/Arrhythmia Surgery/Intervention ICD/Pacemaker: 2D DIMENSIONS IVSd0.84 (0.7-1.1cm)LVDd6.04 (3.9-5.9cm) LVOT Diameter1.64 (1.8-2.4cm)PWd0.50 (0.7-1.1cm) IVSs1.08 (0.8-1.2cm)LVDs5.63 (2.5-4.0cm) FS (%) 6.9 %PWs0.31 (0.8-1.2cm) Mitral Valve E/A ratio0.0 TDI E/Lateral E'0.0E/Medial E'0.0 Tricuspid Valve TR Peak [id number] Peak Gr.4mmHg [id number] LEFT VENTRICLE The Left Ventricle is mildly dilated. There is mild concentric left ventricular hypertrophy. Left ventricle systolic function is severely impaired. The Ejection Fraction is - 15-25%. The left ventricular systolic function appears to vary somewhat from one view to another but it is severely impaired. Transmitral Doppler flow pattern is Grade II-pseudonormal filling dynamics. No left ventricle thrombus noted on this study. There is no ventricular septal defect visualized. There is no left ventricular aneurysm. There is no mass noted in the left ventricle. RIGHT VENTRICLE The right ventricle is normal size. The right ventricle is mildly hypertrophied. The right ventricular systolic function is normal. A pacemaker/defibrillator lead was seen in the RV and RA. ATRIA The left atrium is severely dilated. There is no thrombus suspected in the left atrium. The right atrium size is normal. Study insufficient to assess well. AORTIC VALVE The aortic valve is mildly thickened. No aortic regurgitation is present. There is no aortic valvular stenosis. MITRAL VALVE The mitral valve leaflets are thickened. There is no evidence of mitral valve prolapse. There is no mitral valve stenosis. Mitral regurgitation is severe. TRICUSPID VALVE The tricuspid valve is normal in structure and function. There is no tricuspid valve regurgitation noted. There is no tricuspid valve prolapse or vegetation. There is no tricuspid valve stenosis. PULMONIC VALVE The pulmonic valve is not well visualized. Doppler studies of the PV were not performed. GREAT VESSELS Not well visualized. The IVC was not visualized. PERICARDIAL EFFUSION The pericardium appears normal. There is no pleural effusion. <Conclusion> The Left Ventricle is mildly dilated. There is mild concentric left ventricular hypertrophy. Left ventricle systolic function is severely impaired. The Ejection Fraction is - 15-25%. The left atrium is severely dilated. The aortic and mitral valves are thickened but not stenotic. There is severe mitral regurgitation.
[2016-12-09 00:14] VITALS: RESP 18
[2016-12-09 06:40] LABS: CALCIUM 9.3 mg/dL (8.4-10.2); POTASSIUM 4.3 MMOL/L (3.6-5.0)
[2016-12-09 08:08] VITALS: BP 122/74; O2SAT 97
[2016-12-09] MEDS: Enoxaparin 30 mg Syringe SC SCH (09:06)
[2016-12-09] MEDS: Calcium-Vit D 500 mg-200 Units Tab UD PO SCH (09:07)
[2016-12-09] MEDS: Multivitamin With Minerals Tab PO SCH (09:08)
[2016-12-09] MEDS: Levothyroxine 25 MCG TAB PO SCH (09:08)
--- NOTE | 2016-12-09 10:23 | CP.PCM.DIS ---
Provider - Provider Date of Admission: 12/06/16 15:41 Attending physician: Mohan Hernandez MD Time Spent in preparation of Discharge (in minutes): 30 Diagnosis - Discharge Diagnosis (1) AICD discharge Status: Acute Hospital Course - Lab Results Lab Results: Most Recent Lab Values WBC 10.5 K/uL (4.8-10.8) 12/08/16 04:30 RBC 3.89 Mil/uL (3.80-5.20) 12/08/16 04:30 Hgb 11.9 g/dL (12.0-16.0) L 12/08/16 04:30 Hct 36.5 % (34.0-47.0) 12/08/16 04:30 MCV 93.9 fl (81.0-99.0) 12/08/16 04:30 MCH 30.5 pg (27.0-31.0) 12/08/16 04:30 MCHC 32.5 g/dL (33.0-37.0) L 12/08/16 04:30 RDW 17.1 % (11.5-14.5) H 12/08/16 04:30 Plt Count 247 K/uL (130-400) 12/08/16 04:30 MPV 8.9 fl (7.2-11.7) 12/07/16 04:15 Neut % (Auto) 68.5 % (50.0-75.0) 12/07/16 04:15 Lymph % (Auto) 20.3 % (20.0-40.0) 12/07/16 04:15 [place] % (Auto) 8.7 % (0.0-10.0) 12/07/16 04:15 Eos % (Auto) 1.4 % (0.0-4.0) 12/07/16 04:15 Baso % (Auto) 1.1 % (0.0-2.0) 12/07/16 04:15 Neut # 7.4 K/uL (1.8-7.0) H 12/07/16 04:15 Lymph # 2.2 K/uL (1.0-4.3) 12/07/16 04:15 [place] # 0.9 K/uL (0.0-0.8) H 12/07/16 04:15 Eos # 0.2 K/uL (0.0-0.7) 12/07/16 04:15 Baso # 0.1 K/uL (0.0-0.2) 12/07/16 04:15 PT 10.0 Seconds (9.8-13.1) 12/06/16 15:37 INR 1.0 (0.9-1.2) 12/06/16 15:37 APTT 27.6 Seconds (25.6-37.1) 12/06/16 15:37 pCO2 31 mm/Hg (35-45) L 12/06/16 17:09 pO2 62 mm/Hg (80-100) L 12/06/16 17:09 HCO3 23.5 mmol/L (21-28) 12/06/16 17:09 ABG pH 7.45 (7.35-7.45) 12/06/16 17:09 ABG Total CO2 22.5 mmol/L (22-28) 12/06/16 17:09 ABG O2 Saturation 96.8 % (95-98) 12/06/16 17:09 ABG Base Excess -1.6 mmol/L (-2.0-3.0) 12/06/16 17:09 Baljeet Test Yes 12/06/16 17:09 ABG Potassium 4.2 mmol/L (3.6-5.2) 12/06/16 17:09 A-a O2 Difference 49.0 mm/Hg 12/06/16 17:09 Sodium 139.0 mmol/L (132-148) 12/06/16 17:09 Chloride 109.0 mmol/L (98-107) H 12/06/16 17:09 Glucose 111 mg/dL (65-105) H 12/06/16 17:09 Lactate 1.1 mmol/L (0.7-2.1) 12/06/16 17:09 FiO2 21.0 % 12/06/16 17:09 Sodium 143 mmol/l (132-148) 12/09/16 05:40 Potassium 4.3 MMOL/L (3.6-5.0) 12/09/16 05:40 Chloride 106 mmol/L (98-107) 12/09/16 05:40 Carbon Dioxide 23 mmol/L (22-30) 12/09/16 05:40 Anion Gap 19 (10-20) 12/09/16 05:40 BUN 18 mg/dl (7-17) H 12/09/16 05:40 Creatinine 1.1 mg/dL (0.7-1.2) 12/09/16 05:40 Est GFR ( Amer) 58 12/09/16 05:40 Est GFR (Non-Af Amer) 48 12/09/16 05:40 POC Glucose (mg/dL) 100 mg/dL (65-110) 12/06/16 15:26 Random Glucose 99 mg/dL (65-105) 12/09/16 05:40 Calcium 9.3 mg/dL (8.4-10.2) 12/09/16 05:40 Troponin I 0.0390 ng/mL (0.00-0.120) 12/07/16 14:45 NT-Pro-B Natriuret Pep 1220 pg/ml (0-900) H 12/08/16 18:00 Arterial Blood Potassium 4.2 mmol/L (3.6-5.2) 12/06/16 17:09 - Hospital Course Hospital Course: 81 yo female with history of Dilated Cardiomyopathy S/P AICD, S/P Ablation of Ventricular Arrhythmia, CAD, HTN, COPD, CVA, Chronic Low Back Pain, OA and Left Breast Cancer S/P Mastectomy came back claiming her AICD went off twice within 2 minutes of each other around 2:30PM. Denied any complaint aside from feeling the jolt of the defibrillator. Denied SOB or chest pain. Patient was recently discharged a week ago from TCU after PT for deconditioning. Pt doing well, controlled, may be transferred to TCU (1) [facility] consult with Dr Da Silva, discussed controlled on Amio changed to 400 PO BID Metoprolol Succinate 50mg PO BID (2) Status post ablation of ventricular arrhythmia on Metoprolol XL 50mg PO daily (3) CHF ECHO and BNP today Lasix 20mg PO daily Aldactone 25mg PO daily. Losartan 25mg PO daily (4) HTN (hypertension) BP stable. Lasix 20mg PO daily Losartan 25mg PO daily Metoprolol XL 50mg PO daily (5) CAD (coronary artery disease) no chest pain or SOB Metoprolol XL 50mg PO daily ASA 81mg PO daily. Lipitor 10mg PO HS (6) COPD (chronic obstructive pulmonary disease) no wheezing or SOB Duoneb q 4hrs prn (7) DVT prophylaxis Lovenox 40mg SC daily Discharge Exam - Head Exam Head Exam: ATRAUMATIC, NORMAL INSPECTION, NORMOCEPHALIC Additional comments: GEN: WDWN, ALERT, COOPERATIVE HEENT: NCAT, PERRL, EOMI HEART: +S1+S2, RRR NO MRG LUNG: CTAB, NO WRR ABD: SOFT BSX4 NT ND NO HSM NO MASS EXT: WARM, WELL PERFUSED NEURO: AA0X3, STRENGTH AND SENSATION EQUAL AND BILATERAL SKIN: WARM DRY PSYCH: NORMAL MOOD NORMAL AFFECT Discharge Plan - Discharge Medications Prescriptions: Amiodarone [Cordarone] 400 mg PO BID #60 tab Anastrozole [Arimidex] 1 mg PO DAILY #30 tablet Aspirin [Ecotrin] 81 mg PO DAILY #30 tabec Atorvastatin [Lipitor] 10 mg PO HS #30 tab Calcium Carbonate/Vitamin D3 [Caltrate 600 Plus D3 Tablet] 1 tab PO DAILY #30 tablet Famotidine [Pepcid] 40 mg PO DAILY #30 tablet Furosemide [Lasix] 20 mg PO DAILY #30 tab Levothyroxine [Synthroid] 25 mcg PO DAILY #30 tab Losartan [Cozaar] 25 mg PO DAILY #30 tab Metoprolol Succinate [Toprol XL] 50 mg PO Q12 #30 tab Spironolactone [Aldactone] 25 mg PO DAILY #30 tab - Follow Up Plan Condition: GUARDED Disposition: TRANSF TO SNF
[2016-12-09 11:56] VITALS: PULSE 62; TEMP 97.3
[2016-12-09] MEDS: Metoprolol Succinate 50 mg XL Tab PO SCH (12:15)
== END 2016-12-09 14:20 | DRG 309 ==
LOC: H.ER 14:52 → H.ERHOLD 15:41 → H.ICU/CCU 18:29 → H.TEL 12-08 18:23
PROC: 3E0234Z Introduction of Serum, Toxoid and Vaccine into Muscle, Percutaneous Approach (ICD-10-PCS; principal; 2016-12-06)
DX: I47.2 Ventricular tachycardia (principal); I42.0 Dilated cardiomyopathy; I11.0 Hypertensive heart disease with heart failure; I50.42 Chronic combined systolic (congestive) and diastolic (congestive) heart failure; J44.9 Chronic obstructive pulmonary disease, unspecified; I25.10 Atherosclerotic heart disease of native coronary artery without angina pectoris; Z23 Encounter for immunization; Z95.810 Presence of automatic (implantable) cardiac defibrillator; Z95.5 Presence of coronary angioplasty implant and graft; Z86.73 Personal history of transient ischemic attack (TIA), and cerebral infarction without residual deficits; M81.0 Age-related osteoporosis without current pathological fracture; G89.29 Other chronic pain; Z85.3 Personal history of malignant neoplasm of breast; E03.9 Hypothyroidism, unspecified; M19.90 Unspecified osteoarthritis, unspecified site; I25.2 Old myocardial infarction; E78.5 Hyperlipidemia, unspecified

== ENCOUNTER 2016-12-09 13:40 | Inpatient (IN) | payer OTHER, MEDICARE ==
[2016-12-09 14:01] VITALS: BMI 30.1
[2016-12-09 15:40] VITALS: RESP 20
[2016-12-09] MEDS: Metoprolol Succinate 50 mg XL Tab PO SCH (21:23)
[2016-12-10] MEDS: Levothyroxine 25 MCG TAB PO SCH (06:33)
[2016-12-10 08:35] LABS: BASO # 0.1 K/uL (0.0-0.2); BASO % 0.7 % (0.0-2.0); EOS # 0.2 K/uL (0.0-0.7); EOS % 1.5 % (0.0-4.0); HEMATOCRIT 40.8 % (34.0-47.0); LYMPH # 1.9 K/uL (1.0-4.3); MEAN CELL VOLUME 94.1 fl (81.0-99.0); MEAN CORPUSCULAR HEMOGLOBIN 30.7 pg (27.0-31.0); MEAN CORPUSCULAR HGB CONC 32.6 g/dL (33.0-37.0); MEAN PLATELET VOLUME 8.9 fl (7.2-11.7); MONO # 1.1 K/uL (0.0-0.8); MONO % 9.2 % (0.0-10.0); NEUT # 8.5 K/uL (1.8-7.0); NEUT % 72.6 % (50.0-75.0); NRBC % 0.1 % (0.0-0.0); RED CELL DISTRIBUTION WIDTH 16.6 % (11.5-14.5); WHITE BLOOD COUNT 11.8 K/uL (4.8-10.8)
[2016-12-10 08:56] LABS: CALCIUM 9.6 mg/dL (8.4-10.2); POTASSIUM 4.5 MMOL/L (3.6-5.0)
[2016-12-10] MEDS ORDERED: Levothyroxine 25 MCG TAB PO SCH (09:00)
[2016-12-10] MEDS ORDERED: ASCORBIC ACID 500 MG PO SCH (09:00)
[2016-12-10] MEDS ORDERED: Patient's Own Med (Famotidine [Pepcid] 40 MG) PO SCH (09:00)
[2016-12-10] MEDS: Multivitamin With Minerals Tab PO SCH (09:55)
[2016-12-10] MEDS: Metoprolol Succinate 50 mg XL Tab PO SCH ×2 (09:55→21:01)
[2016-12-10] MEDS: Calcium-Vit D 500 mg-200 Units Tab UD PO SCH (09:57)
[2016-12-11] MEDS: Levothyroxine 25 MCG TAB PO SCH (05:59)
[2016-12-11] MEDS: Calcium-Vit D 500 mg-200 Units Tab UD PO SCH (09:12)
[2016-12-11] MEDS: Metoprolol Succinate 50 mg XL Tab PO SCH ×2 (09:12→21:08)
[2016-12-11] MEDS: Multivitamin With Minerals Tab PO SCH (09:12)
[2016-12-12] MEDS: Levothyroxine 25 MCG TAB PO SCH (06:06)
[2016-12-12] MEDS: Calcium-Vit D 500 mg-200 Units Tab UD PO SCH (09:30)
[2016-12-12] MEDS: Multivitamin With Minerals Tab PO SCH (09:30)
[2016-12-12] MEDS: Metoprolol Succinate 50 mg XL Tab PO SCH ×2 (09:30→21:08)
[2016-12-13] MEDS: Levothyroxine 25 MCG TAB PO SCH (06:04)
[2016-12-13] MEDS: Calcium-Vit D 500 mg-200 Units Tab UD PO SCH (09:40)
[2016-12-13] MEDS: Multivitamin With Minerals Tab PO SCH (09:40)
[2016-12-13] MEDS: Metoprolol Succinate 50 mg XL Tab PO SCH ×2 (12:07→21:19)
[2016-12-14] MEDS: Levothyroxine 25 MCG TAB PO SCH (06:50)
[2016-12-14] MEDS: Multivitamin With Minerals Tab PO SCH (08:30)
[2016-12-14] MEDS: Metoprolol Succinate 50 mg XL Tab PO SCH ×2 (08:31→21:19)
[2016-12-14] MEDS: Calcium-Vit D 500 mg-200 Units Tab UD PO SCH (08:31)
[2016-12-14] MEDS ORDERED: Benzocaine/Menthol (Cepacol) Lozenge PO PRN (16:56)
[2016-12-15] MEDS: Levothyroxine 25 MCG TAB PO SCH (06:32)
[2016-12-15] MEDS: Calcium-Vit D 500 mg-200 Units Tab UD PO SCH (08:27)
[2016-12-15] MEDS: Multivitamin With Minerals Tab PO SCH (08:28)
[2016-12-15] MEDS: Metoprolol Succinate 50 mg XL Tab PO SCH ×2 (08:28→21:09)
[2016-12-16] MEDS: Levothyroxine 25 MCG TAB PO SCH (06:10)
[2016-12-16] MEDS: Multivitamin With Minerals Tab PO SCH (08:45)
[2016-12-16] MEDS: Metoprolol Succinate 50 mg XL Tab PO SCH ×2 (08:45→21:20)
[2016-12-16] MEDS: Calcium-Vit D 500 mg-200 Units Tab UD PO SCH (08:45)
[2016-12-17] MEDS: Levothyroxine 25 MCG TAB PO SCH (06:34)
[2016-12-17] MEDS: Multivitamin With Minerals Tab PO SCH (08:11)
[2016-12-17] MEDS: Calcium-Vit D 500 mg-200 Units Tab UD PO SCH (08:11)
[2016-12-17] MEDS: Metoprolol Succinate 50 mg XL Tab PO SCH ×2 (08:11→21:14)
[2016-12-18] MEDS: Levothyroxine 25 MCG TAB PO SCH (06:53)
[2016-12-18] MEDS: Metoprolol Succinate 50 mg XL Tab PO SCH ×2 (08:33→21:05)
[2016-12-18] MEDS: Multivitamin With Minerals Tab PO SCH (08:34)
[2016-12-18] MEDS: Calcium-Vit D 500 mg-200 Units Tab UD PO SCH (08:34)
[2016-12-19] MEDS: Levothyroxine 25 MCG TAB PO SCH (06:25)
[2016-12-19] MEDS: Metoprolol Succinate 50 mg XL Tab PO SCH (08:37)
[2016-12-19] MEDS: Calcium-Vit D 500 mg-200 Units Tab UD PO SCH (08:38)
[2016-12-19] MEDS: Multivitamin With Minerals Tab PO SCH (08:39)
[2016-12-19 08:41] VITALS: BP 155/78
[2016-12-19 08:48] VITALS: PULSE 61; TEMP 97.5; O2SAT 97
== END 2016-12-19 14:30 | DRG 310 ==
LOC: H.TCU 14:08
PROC: F07Z9FZ Gait Training/Functional Ambulation Treatment using Assistive, Adaptive, Supportive or Protective Equipment (ICD-10-PCS; principal; 2016-12-09)
PROC: F07Z5FZ Bed Mobility Treatment using Assistive, Adaptive, Supportive or Protective Equipment (ICD-10-PCS; 2016-12-09)
PROC: F08Z1FZ Dressing Techniques Treatment using Assistive, Adaptive, Supportive or Protective Equipment (ICD-10-PCS; 2016-12-09)
PROC: F08Z4FZ Home Management Treatment using Assistive, Adaptive, Supportive or Protective Equipment (ICD-10-PCS; 2016-12-09)
PROC: F08Z0FZ Bathing/Showering Techniques Treatment using Assistive, Adaptive, Supportive or Protective Equipment (ICD-10-PCS; 2016-12-09)
PROC: F07Z9FZ Gait Training/Functional Ambulation Treatment using Assistive, Adaptive, Supportive or Protective Equipment (ICD-10-PCS; 2016-12-09)
PROC: F07L6ZZ Therapeutic Exercise Treatment of Musculoskeletal System - Lower Back / Lower Extremity (ICD-10-PCS; 2016-12-09)
DX: I47.2 Ventricular tachycardia (principal); I11.0 Hypertensive heart disease with heart failure; I50.9 Heart failure, unspecified; J44.9 Chronic obstructive pulmonary disease, unspecified; E78.5 Hyperlipidemia, unspecified; G89.29 Other chronic pain; I25.5 Ischemic cardiomyopathy; I25.10 Atherosclerotic heart disease of native coronary artery without angina pectoris; Z95.810 Presence of automatic (implantable) cardiac defibrillator; Z86.73 Personal history of transient ischemic attack (TIA), and cerebral infarction without residual deficits; Z85.3 Personal history of malignant neoplasm of breast

== ENCOUNTER 2017-04-15 06:52 | Inpatient (IN) | payer MEDICARE ==
[2017-04-15 06:53] VITALS: BMI 30.1
[2017-04-15] MEDS ORDERED: Nitroglycerin 2% 15 INCH/30 GM TUBE TOP STA (07:17)
--- NOTE | 2017-04-15 07:23 | ED PDOC ---
HPI: SOB/CHF/COPD Time Seen by Provider: 04/15/17 07:09 Chief Complaint (Nursing): Shortness Of Breath Chief Complaint (Provider): Shortness of breath History Per: Patient History/Exam Limitations: no limitations Onset/Duration Of Symptoms: Days (x1), Worse Since (onset) Current Symptoms Are (Timing): Still Present Associated Symptoms: Chest Pain, Other (diarrhea, nonproductive cough). denies : Fever, Chills, Productive Cough Additional Complaint(s): Ashanti Marte is an 81 year old female, with a past medical history of HTN and CAD, who was brought to the emergency department via EMS for shortness of breath associated with chest pain that radiates to left arm onset since last night. Patient also reports nonproductive cough, she stopped taking antibiotics yesterday secondary to diarrhea. She denies any fever, chills or other medical complaints. PMD: None provided. Past Medical History Reviewed: Historical Data, Nursing Documentation, Vital Signs Vital Signs: Last Vital Signs Temp 97.7 F 04/15/17 06:59 Pulse 71 04/15/17 06:59 Resp 22 04/15/17 07:20 BP 140/78 04/15/17 06:59 Pulse Ox 92 L 04/15/17 07:30 - Medical History PMH: Arthritis, Back Problems, Bronchitis, CAD, Cardia Arrhythmia, CHF, COPD, HTN, Hypothyroidism, Osteoporosis, Pneumonia, TIA Denies: HIV, Hypercholesterolemia, Chronic Kidney Disease, Rheumatoid Arthritis - Surgical History Surgical History: Appendectomy, Cholecystectomy, Coronary Stent, Pacemaker (AICD ) - Family History Family History: States: Unknown Family Hx - Immunization History Hx Tetanus Toxoid Vaccination: No Hx Influenza Vaccination: No Hx Pneumococcal Vaccination: No - Home Medications Home Medications: Ambulatory Orders Medication Instructions Recorded Ascorbic Acid [Vitamin C] 500 mg PO DAILY 04/29/16 Multivit-Min/FA/Lycopen/Lutein 1 tab PO DAILY 04/29/16 [Centrum Silver Tablet] Acetaminophen [Tylenol 325mg tab] 650 mg PO Q6 PRN tab 11/20/16 Amiodarone [Cordarone] 400 mg PO BID #60 tab 12/09/16 Anastrozole [Arimidex] 1 mg PO DAILY #30 tablet 12/09/16 Aspirin [Ecotrin] 81 mg PO DAILY #30 tabec 09/27/17 Atorvastatin [Lipitor] 10 mg PO HS #30 tab 12/09/16 Calcium Carbonate/Vitamin D3 1 tab PO DAILY #30 tablet 12/09/16 [Caltrate 600 Plus D3 Tablet] Famotidine [Pepcid] 40 mg PO DAILY #30 tablet 12/09/16 Levothyroxine [Synthroid] 25 mcg PO DAILY #30 tab 12/09/16 Losartan [Cozaar] 25 mg PO DAILY #30 tab 12/09/16 Metoprolol Succinate [Toprol XL] 50 mg PO Q12 #30 tab 12/09/16 Spironolactone [Aldactone] 25 mg PO DAILY #30 tab 12/09/16 ALPRAZolam [Xanax] 0.25 mg PO HS PRN tab 12/19/16 Ascorbic Acid [Vitamin C 500 mg 500 mg PO DAILY tab 12/19/16 Tab] Benzocaine/Menthol [Cepacol Sore 1 saumya PO Q3 PRN saumya 12/19/16 Throat] Famotidine [Pepcid] 40 mg PO DAILY tab 12/19/16 Furosemide [Lasix] 20 mg PO DAILY tab 12/19/16 Levothyroxine [Synthroid] 25 mcg PO DAILY@0630 tab 12/19/16 - Allergies Allergies/Adverse Reactions: Allergies Allergy/AdvReac Type Severity Reaction Status Date / Time No Known Allergies Allergy Verified 12/09/16 14:00 Review of Systems ROS Statement: Except As Marked, All Systems Reviewed And Found Negative Constitutional: Negative for: Fever, Chills Cardiovascular: Positive for: Chest Pain (radiates to left arm) Respiratory: Positive for: Cough (non productive), Shortness of Breath Gastrointestinal: Positive for: Diarrhea Physical Exam - Reviewed Nursing Documentation Reviewed: Yes Vital Signs Reviewed: Yes - Physical Exam Appears: Positive for: Non-toxic, No Acute Distress Head Exam: Positive for: ATRAUMATIC, NORMAL INSPECTION, NORMOCEPHALIC Skin: Positive for: Normal Color, Warm, Dry Eye Exam: Positive for: Normal appearance, EOMI, PERRL Neck: Positive for: Painless ROM, Supple Cardiovascular/Chest: Positive for: Regular Rate, Rhythm. Negative for: Murmur Respiratory: Positive for: Normal Breath Sounds. Negative for: Respiratory Distress Gastrointestinal/Abdominal: Positive for: Normal Exam, Soft. Negative for: Tenderness, Guarding, Rebound Back: Positive for: Normal Inspection. Negative for: L CVA Tenderness, R CVA Tenderness, Vertebral Tenderness Extremity: Positive for: Normal ROM. Negative for: Pedal Edema, Deformity, Swelling Neurologic/Psych: Positive for: Alert, Oriented (x3). Negative for: Motor/ Sensory Deficits - Laboratory Results Result Diagrams: 04/15/17 07:50 04/15/17 07:50 - ECG O2 Sat by Pulse Oximetry: 92 (RA) Pulse Ox Interpretation: Abnormal Medical Decision Making Medical Decision Making: Initial Plan: --EKG --CMP --Troponin I --Urine dipstick --CBC w/ differential --Chest two views (PA/LAT) [RAD] --Aspirin 325 mg PO --Nitro-Bid 2% Oint 1 inch TOP --Influenza A B --reevaluation Scribe Attestation: Documented by Steven Ramachandran, acting as a scribe for Devonte Dunne MD Provider Scribe Attestation: All medical record entries made by the Scribe were at my direction and personally dictated by me. I have reviewed the chart and agree that the record accurately reflects my personal performance of the history, physical exam, medical decision making, and the department course for this patient. I have also personally directed, reviewed, and agree with the discharge instructions and disposition. Disposition - Clinical Impression Clinical Impression: Dyspnea, COPD (chronic obstructive pulmonary disease), Chest pain - Patient ED Disposition Is Patient to be Admitted: Yes - Disposition Disposition Time: 10:07 Condition: FAIR Forms: [employer] (Arabic) - Pt Status Changed To: Hospital Disposition Of: Observation - POA Present On Arrival: None
[2017-04-15] MEDS ORDERED: Nitroglycerin 2% Ointment Foilpak UD TOP ONE (07:29)
[2017-04-15 08:01] LABS: BASO # 0.1 K/uL (0.0-0.2); BASO % 0.6 % (0.0-2.0); EOS # 0.1 K/uL (0.0-0.7); EOS % 0.8 % (0.0-4.0); HEMOGLOBIN 12.9 g/dL (12.0-16.0); LYMPH # 1.3 K/uL (1.0-4.3); LYMPH % 8.7 % (20.0-40.0); MEAN CELL VOLUME 95.8 fl (81.0-99.0); MEAN CORPUSCULAR HEMOGLOBIN 31.4 pg (27.0-31.0); MEAN CORPUSCULAR HGB CONC 32.7 g/dL (33.0-37.0); MEAN PLATELET VOLUME 9.1 fl (7.2-11.7); MONO # 1.5 K/uL (0.0-0.8); MONO % 9.9 % (0.0-10.0); NEUT # 12.1 K/uL (1.8-7.0); NRBC % 0.1 % (0.0-0.0); PLATELET COUNT 207 K/uL (130-400); RED CELL DISTRIBUTION WIDTH 13.6 % (11.5-14.5); WHITE BLOOD COUNT 15.1 K/uL (4.8-10.8)
[2017-04-15 08:24] LABS: ALB/GLOB RATIO 1.2 (1.0-2.1); ALBUMIN 3.8 g/dL (3.5-5.0); CALCIUM 9.3 mg/dL (8.4-10.2)
[2017-04-15 08:36] LABS: TROPONIN I 0.038 ng/mL (0.00-0.120)
--- NOTE | 2017-04-15 10:01 | CARD ---
APPROVED REPORT EKG Measurement Heart [id number] <Conclusion> Atrial-paced rhythm ?? arm lead reversal ST & T wave abnormality, consider anterior ischemia Abnormal ECG
[2017-04-15] MEDS ORDERED: Albuterol-Ipratrop 3 mg / 0.5 (3 ml) UD IH STA (10:08)
[2017-04-15] MEDS ORDERED: Albuterol-Ipratrop 3 mg / 0.5 (3 ml) UD ONE (10:49)
[2017-04-15 11:00] LABS: EOSINOPHIL 1 % (0-7); LYMPHOCYTE 11 % (20-50); MONOCYTE 11 % (0-10); NEUTROPHIL 75 % (42-75); PLATELET ESTIMATE NORMAL (NORMAL); REACTIVE LYMPHOCYTES 2 % (0-0); TOTAL CELLS COUNTED 100
--- NOTE | 2017-04-15 11:26 | CP.PCM.HP ---
History of Present Illness - History of Present Illness History of Present Illness: 81 yo female with history of CAD, HTN, Dilated Cardiomyopathy with AICD, previous CVA, COPD, OA and history of left breast cancer came in complaining of SOB since last night associated with pain on the left arm. SOB with left arm pain were on and off. Denied having chest pain. Present on Admission - Present on Admission Any Indicators Present on Admission: No History of DVT/PE: No History of Uncontrolled Diabetes: No Urinary Catheter: No Decubitus Ulcer Present: No Review of Systems - Review of Systems All systems: reviewed and no additional remarkable complaints except (aside from those mentioned above, 12 point system review were negative by me) Past Patient History - Infectious Disease Hx of Infectious Diseases: None - Tetanus Immunizations Tetanus Immunization: Unknown - Past Medical History & Family History Past Medical History?: Yes Past Family History: Reviewed and not pertinent - Past Social History Smoking Status: Former Smoker Alcohol: None Drugs: Denies Home Situation {Lives}: With Family - CARDIAC Hx Cardia Arrhythmia: Yes Hx Congestive Heart Failure: Yes Hx Hypercholesterolemia: No Hx Hypertension: Yes Hx Pacemaker: Yes (AICD) - PULMONARY Hx Bronchitis: Yes Hx Chronic Obstructive Pulmonary Disease (COPD): Yes Hx Pneumonia: Yes - NEUROLOGICAL HX Cerebrovascular Accident: Yes Hx Transient Ischemic Attacks (TIA): Yes - HEENT Hx HEENT Problems: Yes Hx Cataracts: Yes (Extracted) - RENAL Hx Chronic Kidney Disease: No - ENDOCRINE/METABOLIC Hx Hypothyroidism: Yes - HEMATOLOGICAL/ONCOLOGICAL Hx Human Immunodeficiency Virus (HIV): No - INTEGUMENTARY Hx Dermatological Problems: No - MUSCULOSKELETAL/RHEUMATOLOGICAL Hx Arthritis: Yes Hx Osteoporosis: Yes Hx Rheumatoid Arthritis: No - GASTROINTESTINAL Hx Gastrointestinal Disorders: No - GENITOURINARY/GYNECOLOGICAL Hx Genitourinary Disorders: No - PSYCHIATRIC Hx Psychophysiologic Disorder: No Hx Substance Use: No - SURGICAL HISTORY Hx Appendectomy: Yes Hx Cholecystectomy: Yes Hx Coronary Stent: Yes - ANESTHESIA Hx Anesthesia: Yes Hx Anesthesia Reactions: No Hx Malignant Hyperthermia: No Meds Allergies/Adverse Reactions: Allergies Allergy/AdvReac Type Severity Reaction Status Date / Time No Known Allergies Allergy Verified 12/09/16 14:00 Physical Exam - Constitutional Appears: No Acute Distress - Head Exam Head Exam: ATRAUMATIC - Eye Exam Eye Exam: absent: Scleral icterus - ENT Exam ENT Exam: Mucous Membranes Moist - Neck Exam Neck exam: Negative for: Meningismus - Respiratory Exam Respiratory Exam: absent: Rhonchi, Wheezes, Respiratory Distress - Cardiovascular Exam Cardiovascular Exam: REGULAR RHYTHM, +S1, +S2 - GI/Abdominal Exam GI & Abdominal Exam: Soft. absent: Tenderness - Rectal Exam Rectal Exam: Deferred - Extremities Exam Extremities exam: Negative for: pedal edema - Back Exam Back exam: absent: tenderness - Neurological Exam Neurological exam: Alert, Oriented x3 - Psychiatric Exam Psychiatric exam: Normal Affect - Skin Skin Exam: Dry, Intact Results - Vital Signs Recent Vital Signs: Last Vital Signs Temp 97.7 F 04/15/17 06:59 Pulse 60 04/15/17 10:26 Resp 23 04/15/17 10:26 BP 121/61 04/15/17 10:26 Pulse Ox 95 04/15/17 10:26 - Labs Result Diagrams: 04/15/17 07:50 04/15/17 07:50 Labs: Laboratory Results - last 24 hr 04/15/17 04/15/17 04/15/17 07:50 07:50 07:50 WBC 15.1 H RBC 4.10 Hgb 12.9 Hct 39.3 MCV 95.8 MCH 31.4 H MCHC 32.7 L RDW 13.6 Plt Count 207 MPV 9.1 Neut % (Auto) 80.0 H Lymph % (Auto) 8.7 L [place] % (Auto) 9.9 Eos % (Auto) 0.8 Baso % (Auto) 0.6 Neut # (Auto) 12.1 H Lymph # (Auto) 1.3 [place] # (Auto) 1.5 H Eos # (Auto) 0.1 Baso # (Auto) 0.1 Neutrophils % (Manual) 75 Lymphocytes % (Manual) 11 L Reactive Lymphs % 2 H Monocytes % (Manual) 11 H Eosinophils % (Manual) 1 Platelet Estimate Normal RBC Morphology Normal Sodium 140 Potassium 4.5 Chloride 104 Carbon Dioxide 24 Anion Gap 17 BUN 21 H Creatinine 1.3 H Est GFR ( Amer) 48 Est GFR (Non-Af Amer) 39 Random Glucose 100 Calcium 9.3 Total Bilirubin 1.3 AST 36 ALT 37 Alkaline Phosphatase 51 Troponin I 0.0380 Total Protein 6.9 Albumin 3.8 Globulin 3.1 Albumin/Globulin Ratio 1.2 Influenza Typ A,B (EIA) Negative for flu a/b Assessment & Plan - Assessment and Plan (Free Text) Assessment: 81 yo female with history of CAD, HTN, Dilated Cardiomyopathy with AICD, previous CVA, COPD, OA, Hypothyroidism and history of left breast cancer came in complaining of SOB since last night associated with pain on the left arm. SOB with left arm pain were on and off. Denied having chest pain. 1. Left Arm Pain serial Troponin and EKG continue ASA, statin and BB 2. Cardiomyopathy continue Aldactone, Losartan cardiology consult with Dr Da Silva 3. CAD continue statin, ASA and Metoprolol 4. HTN BP stable continue Aldactone, Losartan, Metoprolol 5. Hypothyroidism continue Levothyroxine TSH in am 6. History of Breast Ca continue Arimedex 7. DVT prophylaxis Lovenox 40mg SC daily
[2017-04-15] MEDS ORDERED: Multivitamin With Minerals Tab PO SCH (12:15)
[2017-04-15] MEDS ORDERED: Calcium-Vit D 500 mg-200 Units Tab UD PO SCH (12:15)
--- NOTE | 2017-04-15 13:05 | RAD ---
HISTORY: Shortness of breath. COMPARISON: 12/06/2016 TECHNIQUE: Chest PA and lateral FINDINGS: LUNGS: Pulmonary vascular congestion PLEURA: No significant pleural effusion identified. No pneumothorax apparent. CARDIOVASCULAR: Cardiomegaly/mild CHF. Position/ configuration of pacemaker device: Satisfactory. OSSEOUS STRUCTURES: No significant abnormalities. VISUALIZED UPPER ABDOMEN: Normal. OTHER FINDINGS: Prior left mastectomy and axillary node dissection. IMPRESSION: Mild pulmonary vascular congestion/ CHF a new finding compared to the prior study.
[2017-04-15] MEDS: Cholecalciferol 1,000 INTLU TAB PO SCH (14:15)
[2017-04-15] MEDS: Multivitamin With Minerals Tab PO SCH (14:17)
[2017-04-15] MEDS: Calcium-Vit D 500 mg-200 Units Tab UD PO SCH (14:17)
--- NOTE | 2017-04-15 14:25 | CP.PCM.CON ---
History of Present Illness - History of Present Illness History of Present Illness: This 81-year-old female who suffers from significant coronary artery disease as well as cardiac arrhythmia presented to the emergency department with a chief complaint of chest tightness associated with difficulty breathing. She also complains of left anterior chest pain as well as left upper extremity pain. Her symptoms began approximately 2 weeks ago and have persisted for that period of time. Her chest discomfort has been of more recent onset, present for less than 24 hours. There have been no ill contacts. She denies any fever or chills. There is only occasional cough which is essentially nonproductive. There has been no hemoptysis. She had apparently started taking some antibiotics without relief but stopped yesterday because of loose bowel movements. Chest x-ray performed in the emergency department showed no evidence of pneumonic infiltrates,but increased bronchovascular markings are noted. Past medical history: Acute myocardial infarction 1982 with a second [place] in 2012. Coronary angioplasty in 1993, 1996, 2012. Internal defibrillator implanted approximately one year ago because of persistent ventricular arrhythmia. Left breast mastectomy in 2000 because of carcinoma. She did have chemotherapy and radiation. Hypertension , hyperlipidemia, hypothyroidism, chronic mastoiditis of the right, CVA. She also has diffuse arthritic complaints with chronic back pain and spinal stenosis. She also suffers from osteoporosis. Past surgical history: Multiple coronary interventions/angioplasties, bilateral cataract extraction, internal defibrillator implant. Allergies No known drug or seasonal allergies. Social history: 2 pack-a-day cigarette smoker who stopped in 1982. No alcohol intake. Denies illicit drug use. Family history: Coronary artery disease and arthritis. Past Patient History - Infectious Disease Hx of Infectious Diseases: None - Tetanus Immunizations Tetanus Immunization: Unknown - Past Medical History & Family History Past Medical History?: Yes Past Family History: Reviewed and not pertinent - Past Social History Smoking Status: Former Smoker Chewing Tobacco Use: No Cigar Use: No Alcohol: None Drugs: Denies Home Situation {Lives}: With Family - CARDIAC Hx Cardia Arrhythmia: Yes Hx Congestive Heart Failure: Yes Hx Hypercholesterolemia: Yes Hx Hypertension: Yes Hx Pacemaker: Yes (AICD) - PULMONARY Hx Bronchitis: Yes Hx Chronic Obstructive Pulmonary Disease (COPD): Yes Hx Pneumonia: Yes - NEUROLOGICAL HX Cerebrovascular Accident: Yes Hx Transient Ischemic Attacks (TIA): Yes - HEENT Hx Cataracts: Yes (Extracted) - RENAL Hx Chronic Kidney Disease: No - ENDOCRINE/METABOLIC Hx Hypothyroidism: Yes - HEMATOLOGICAL/ONCOLOGICAL Hx Cancer: Yes (Breast) Hx Human Immunodeficiency Virus (HIV): No - INTEGUMENTARY Hx Dermatological Problems: No - MUSCULOSKELETAL/RHEUMATOLOGICAL Hx Arthritis: Yes Hx Osteoporosis: Yes - GASTROINTESTINAL Hx Gastrointestinal Disorders: No - GENITOURINARY/GYNECOLOGICAL Hx Incontinence: Yes - PSYCHIATRIC Hx Psychophysiologic Disorder: No Hx Substance Use: No - SURGICAL HISTORY Hx Angioplasty: Yes Hx Appendectomy: Yes Hx Cholecystectomy: Yes Hx Coronary Stent: Yes Hx Eye Surgery: Yes Hx Mastectomy: Yes - ANESTHESIA Hx Anesthesia: Yes Hx Anesthesia Reactions: No Hx Malignant Hyperthermia: No Meds Allergies/Adverse Reactions: Allergies Allergy/AdvReac Type Severity Reaction Status Date / Time No Known Allergies Allergy Verified 12/09/16 14:00 - Medications Medications: Current Medications Anastrozole (Arimidex 1 Mg Tab) 1 mg PO DAILY [facility] Ascorbic Acid (Vitamin C 500 Mg Tab) 500 mg PO DAILY [facility] Aspirin (Ecotrin) 81 mg PO DAILY [facility] Last Admin: 04/15/17 13:14 Dose: Not Given Atorvastatin Calcium (Lipitor) 20 mg PO HS [facility] Calcium/Vitamin D (Oyster Shell Calcium/Vitamin D 500 Mg-200 Iu) 1 tab PO DAILY [facility] Last Admin: 04/15/17 14:17 Dose: Not Given Cholecalciferol (Vitamin D) 1,000 intlu PO DAILY [facility] Last Admin: 04/15/17 14:15 Dose: 1,000 intlu Docusate Sodium (Colace) 100 mg PO BID PRN PRN Reason: Constipation Enoxaparin Sodium (Lovenox) 30 mg SC DAILY [facility] PRN Reason: Protocol Levothyroxine Sodium (Synthroid) 25 mcg PO DAILY@0630 [facility] Losartan Potassium (Cozaar) 25 mg PO DAILY [facility] Last Admin: 04/15/17 14:12 Dose: 25 mg Metoprolol Tartrate (Lopressor) 50 mg PO Q12H [facility] Multivitamins/Minerals (Therapeutic-M Tab) 1 tab PO DAILY [facility] Last Admin: 04/15/17 14:17 Dose: Not Given Nitroglycerin (Nitrostat Sl Tab) 0.4 mg SL Q5MIN PRN PRN Reason: chest pain Spironolactone (Aldactone) 12.5 mg PO DAILY [facility] Last Admin: 04/15/17 14:13 Dose: 12.5 mg Vitamin E (Vitamin E 400 Units Cap) 400 intlu PO DAILY [facility] Last Admin: 04/15/17 14:15 Dose: 400 intlu Physical Exam - Additional Findings Additional findings: Well-nourished, well-developed female who is lying in a stretcher in no acute distress at this time. Speech is clear but slow and memory is intact. Conjunctivae are pink and there is no scleral icterus. Neck is supple and trachea is midline. No visible neck vein distention. No palpable lymphadenopathy. Pharynx is pink and mucous membranes are moist. No exudate. Nares are patent bilaterally. No bleeding or exudate. No dullness on chest percussion. Equal expansion. Breath sounds are somewhat diminished bilaterally. No wheezes are heard. Dry to medium rales are heard in both lower lobes posteriorly. No bronchial breathing or egophony. No rub. Heart sounds are slightly distant but rhythm is regular. A systolic murmur is heard at the apex. The abdomen is soft and nontender. Normal bowel sounds. No palpable HSM. No dependent edema of the lower extremities. No calf tenderness or palpable venous cords. No cyanosis. Results - Vital Signs Recent Vital Signs: Last Vital Signs Temp 97.6 F 04/15/17 12:42 Pulse 67 04/15/17 14:12 Resp 16 04/15/17 12:42 BP 124/70 04/15/17 14:12 Pulse Ox 96 04/15/17 12:42 - Labs Result Diagrams: 04/16/17 04:55 04/16/17 04:55 Labs: Laboratory Results - last 24 hr 04/15/17 04/15/17 04/15/17 07:50 07:50 07:50 WBC 15.1 H RBC 4.10 Hgb 12.9 Hct 39.3 MCV 95.8 MCH 31.4 H MCHC 32.7 L RDW 13.6 Plt Count 207 MPV 9.1 Neut % (Auto) 80.0 H Lymph % (Auto) 8.7 L [place] % (Auto) 9.9 Eos % (Auto) 0.8 Baso % (Auto) 0.6 Neut # (Auto) 12.1 H Lymph # (Auto) 1.3 [place] # (Auto) 1.5 H Eos # (Auto) 0.1 Baso # (Auto) 0.1 Neutrophils % (Manual) 75 Lymphocytes % (Manual) 11 L Reactive Lymphs % 2 H Monocytes % (Manual) 11 H Eosinophils % (Manual) 1 Platelet Estimate Normal RBC Morphology Normal Sodium 140 Potassium 4.5 Chloride 104 Carbon Dioxide 24 Anion Gap 17 BUN 21 H Creatinine 1.3 H Est GFR ( Amer) 48 Est GFR (Non-Af Amer) 39 Random Glucose 100 Calcium 9.3 Total Bilirubin 1.3 AST 36 ALT 37 Alkaline Phosphatase 51 Troponin I 0.0380 Total Protein 6.9 Albumin 3.8 Globulin 3.1 Albumin/Globulin Ratio 1.2 Influenza Typ A,B (EIA) Negative for flu a/b Assessment & Plan (1) Low cardiac output syndrome Status: Chronic Priority: High (2) Cardiomyopathy Status: Chronic Priority: High (3) CAD (coronary artery disease) Status: Chronic Priority: High (4) COPD (chronic obstructive pulmonary disease) Status: Chronic Priority: High (5) Hypothyroidism Status: Chronic Priority: Medium - Date & Time Date: 04/15/17 Time: 14:44
[2017-04-15] MEDS ORDERED: Heparin 25,000units in D5W 25,000 UNITS/250 ML BAG IV SCH (16:45)
[2017-04-15] MEDS ORDERED: Nitroglycerin 2% 15 INCH/30 GM TUBE TOP SCH (17:45)
--- NOTE | 2017-04-15 18:05 | CP.CCUPN ---
CCU Subjective - Physician Review Subjective (Free Text): ICU Admission from ER for ACS with + troponins: 81F presented this AM with Sob and left arm pain, denied actual chest discomfort. Initial labs showed normal Trop#1 with mild BNP elevation to 3260 ( last known BNP near last hospital discharge in Nov 2016 was 1220); then 2nd set of Troponin returned elevated at 0.8000. Presently awake and alert, appears upset and frustrated over current need for hospitalization. In ER, rec d doses of ASA and Clopidogrel loading ( she is known to have been on Plavix). Now, currently asymptomatic. Afebrile, BP 150/80, HR 74, SPO2 100% on nasal cannula. Other vitals and I/O's reviewed. Allergies: NKDA Home Meds include: Anastrazole, Vit C, Vit D, Vit E, MVIs, Ecotrin, Calcium Carbonate, Pepcid, Levothyroxine, Cozaar, Vesicare, Aldactone. ROS: No other pertinent negs or positives on 10+ system review. PMSFH: Mi x 5, 1st in 1982, denies any h/o of PCI / Stents. AICD- PPM placed last year. H/o Breast ca with left Mastectomy, Hypothyroidism, Hyperlipidemia, HTN. Past smoker, denies ETOH use. All other Nursing and physician documentation reviewed to date; no new pertinent info noted relevant to current medical problems. IMPRESSION / MAJOR PROBLEMS NOW: 1. ACS with NSTEMI 2. Mild decompensated Cardiomyopathy with L- CHF, severe MR and DD dysfx as last reported on ECHO Nov 2016. 3. CKD III PLAN: 1. IV Heparin drip, Plavix loading, Continue topical nitrates, ASA, BBs, Statin, ARB, and Aldactone, supplemental oxygen. 2. Consider Lasix prn. 3. Check remainder of serial Trops, repeat EKG in AM. 4. Interventional Cardio eval. CCU Objective - Vital Signs / Intake & Output Vital Signs (Last 4 hours): Vital Signs Temp Pulse Resp BP Pulse Ox 04/15/17 17:19 67 124/70 04/15/17 17:15 97.8 F 69 26 H 158/76 H 95 04/15/17 14:12 67 124/70 Intake and Output (Last 8hrs): Intake & Output 04/15/17 04/15/17 04/15/17 06:59 14:59 22:59 Weight 153 lb - Physical Exam Head: Positive for: Normocephalic Pupils: Positive for: PERRL Extroacular Muscles: Positive for: EOMI Conjunctiva: Positive for: Normal Mouth: Positive for: Moist Mucous Membranes Pharnyx: Positive for: Normal Neck: Negative for: JVD, Lymphadenopathy Respiratory/Chest: Positive for: Clear to Auscultation, Rales (basilar bilateral rales) Cardiovascular: Positive for: Regular Rate and Rhythm, Murmurs. Negative for: Rub Abdomen: Positive for: Normal Bowel Sounds, Mass/Organomegaly. Negative for: Tenderness, Distention Lower Extremity: Positive for: Normal Inspection, NORMAL PULSES. Negative for: Edema, CALF TENDERNESS, Cyanosis Neurological: Positive for: GCS=15, Motor Func Grossly Intact, Normal Sensory Function Skin: Positive for: Warm, Dry. Negative for: Rashes Psychiatric: Positive for: Alert, Oriented x 3 - Medications Active Medications: Active Medications Generic Name Dose Route Start Last Admin Trade Name Freq PRN Reason Stop Dose Admin Anastrozole 1 mg 04/15/17 12:15 04/15/17 15:17 Arimidex 1 Mg Tab PO 1 mg DAILY [facility] Administration Ascorbic Acid 500 mg 04/15/17 13:15 04/15/17 14:23 Vitamin C 500 Mg Tab PO Not Given DAILY [facility] Aspirin 81 mg 04/15/17 12:15 04/15/17 13:14 Ecotrin PO Not Given DAILY [facility] Atorvastatin Calcium 20 mg 04/15/17 22:00 Lipitor PO HS [facility] Calcium/Vitamin D 1 tab 04/15/17 13:15 04/15/17 14:17 Oyster Shell Calcium/Vitamin D 500 Mg-200 Iu PO Not Given DAILY [facility] Cholecalciferol 1,000 intlu 04/15/17 12:15 04/15/17 14:15 Vitamin D PO 1,000 intlu DAILY [facility] Administration Docusate Sodium 100 mg 04/15/17 11:50 Colace PO BID PRN Constipation Heparin Sodium/Dextrose 25,000 units in 250 mls @ 8 mls/hr 04/15/17 16:45 Heparin 25,000 Units/250ml In D5w IV .Q24H [facility] Protocol Levothyroxine Sodium 25 mcg 04/16/17 06:30 Synthroid PO DAILY@0630 [facility] Losartan Potassium 25 mg 04/15/17 12:15 04/15/17 14:12 Cozaar PO 25 mg DAILY [facility] Administration Metoprolol Tartrate 50 mg 04/15/17 12:15 Lopressor PO Q12H [facility] Multivitamins/Minerals 1 tab 04/15/17 13:15 04/15/17 14:17 Therapeutic-M Tab PO Not Given DAILY [facility] Nitroglycerin 0.4 mg 04/15/17 12:01 Nitrostat Sl Tab SL Q5MIN PRN chest pain Nitroglycerin 1 inch 04/15/17 17:45 Nitro-Bid 2% Oint TOP QID [facility] Spironolactone 12.5 mg 04/15/17 12:15 04/15/17 14:13 Aldactone PO 12.5 mg DAILY [facility] Administration Vitamin E 400 intlu 04/15/17 12:15 04/15/17 14:15 Vitamin E 400 Units Cap PO 400 intlu DAILY [facility] Administration - Patient Studies Lab Studies: Lab Studies 04/15/17 04/15/17 04/15/17 Range/Units 15:25 14:52 07:50 WBC (4.8-10.8) K/uL RBC (3.80-5.20) Mil/uL Hgb (12.0-16.0) g/dL Hct (34.0-47.0) % MCV (81.0-99.0) fl MCH (27.0-31.0) pg MCHC (33.0-37.0) g/dL RDW (11.5-14.5) % Plt Count (130-400) K/uL MPV (7.2-11.7) fl Neut % (Auto) (50.0-75.0) % Lymph % (Auto) (20.0-40.0) % Norton % (Auto) (0.0-10.0) % Eos % (Auto) (0.0-4.0) % Baso % (Auto) (0.0-2.0) % Neut # (Auto) (1.8-7.0) K/uL Lymph # (Auto) (1.0-4.3) K/uL Norton # (Auto) (0.0-0.8) K/uL Eos # (Auto) (0.0-0.7) K/uL Baso # (Auto) (0.0-0.2) K/uL Neutrophils % (Manual) (42-75) % Lymphocytes % (Manual) (20-50) % Reactive Lymphs % (0-0) % Monocytes % (Manual) (0-10) % Eosinophils % (Manual) (0-7) % Platelet Estimate (NORMAL) RBC Morphology (NORMAL) Sodium (132-148) mmol/l Potassium (3.6-5.0) MMOL/L Chloride (98-107) mmol/L Carbon Dioxide (22-30) mmol/L Anion Gap (10-20) BUN (7-17) mg/dl Creatinine (0.7-1.2) mg/dl Est GFR ( Amer) Est GFR (Non-Af Amer) Random Glucose (65-105) mg/dL Calcium (8.4-10.2) mg/dL Total Bilirubin (0.2-1.3) mg/dl AST (14-36) U/L ALT (9-52) U/L Alkaline Phosphatase (38-126) U/L Troponin I 0.8000 H* (0.00-0.120) ng/mL NT-Pro-B Natriuret Pep 3260 H (0-900) pg/ml Total Protein (6.3-8.2) G/DL Albumin (3.5-5.0) g/dL Globulin (2.2-3.9) gm/dL Albumin/Globulin Ratio (1.0-2.1) Influenza Typ A,B (EIA) Negative for flu a/b (NEGATIVE) 04/15/17 04/15/17 Range/Units 07:50 07:50 WBC 15.1 H (4.8-10.8) K/uL RBC 4.10 (3.80-5.20) Mil/uL Hgb 12.9 (12.0-16.0) g/dL Hct 39.3 (34.0-47.0) % MCV 95.8 (81.0-99.0) fl MCH 31.4 H (27.0-31.0) pg MCHC 32.7 L (33.0-37.0) g/dL RDW 13.6 (11.5-14.5) % Plt Count 207 (130-400) K/uL MPV 9.1 (7.2-11.7) fl Neut % (Auto) 80.0 H (50.0-75.0) % Lymph % (Auto) 8.7 L (20.0-40.0) % Norton % (Auto) 9.9 (0.0-10.0) % Eos % (Auto) 0.8 (0.0-4.0) % Baso % (Auto) 0.6 (0.0-2.0) % Neut # (Auto) 12.1 H (1.8-7.0) K/uL Lymph # (Auto) 1.3 (1.0-4.3) K/uL Norton # (Auto) 1.5 H (0.0-0.8) K/uL Eos # (Auto) 0.1 (0.0-0.7) K/uL Baso # (Auto) 0.1 (0.0-0.2) K/uL Neutrophils % (Manual) 75 (42-75) % Lymphocytes % (Manual) 11 L (20-50) % Reactive Lymphs % 2 H (0-0) % Monocytes % (Manual) 11 H (0-10) % Eosinophils % (Manual) 1 (0-7) % Platelet Estimate Normal (NORMAL) RBC Morphology Normal (NORMAL) Sodium 140 (132-148) mmol/l Potassium 4.5 (3.6-5.0) MMOL/L Chloride 104 (98-107) mmol/L Carbon Dioxide 24 (22-30) mmol/L Anion Gap 17 (10-20) BUN 21 H (7-17) mg/dl Creatinine 1.3 H (0.7-1.2) mg/dl Est GFR ( Amer) 48 Est GFR (Non-Af Amer) 39 Random Glucose 100 (65-105) mg/dL Calcium 9.3 (8.4-10.2) mg/dL Total Bilirubin 1.3 (0.2-1.3) mg/dl AST 36 (14-36) U/L ALT 37 (9-52) U/L Alkaline Phosphatase 51 (38-126) U/L Troponin I 0.0380 (0.00-0.120) ng/mL NT-Pro-B Natriuret Pep (0-900) pg/ml Total Protein 6.9 (6.3-8.2) G/DL Albumin 3.8 (3.5-5.0) g/dL Globulin 3.1 (2.2-3.9) gm/dL Albumin/Globulin Ratio 1.2 (1.0-2.1) Influenza Typ A,B (EIA) (NEGATIVE) Laboratory Results - last 24 hr 04/15/17 04/15/17 04/15/17 07:50 07:50 07:50 WBC 15.1 H RBC 4.10 Hgb 12.9 Hct 39.3 MCV 95.8 MCH 31.4 H MCHC 32.7 L RDW 13.6 Plt Count 207 MPV 9.1 Neut % (Auto) 80.0 H Lymph % (Auto) 8.7 L Norton % (Auto) 9.9 Eos % (Auto) 0.8 Baso % (Auto) 0.6 Neut # (Auto) 12.1 H Lymph # (Auto) 1.3 Norton # (Auto) 1.5 H Eos # (Auto) 0.1 Baso # (Auto) 0.1 Neutrophils % (Manual) 75 Lymphocytes % (Manual) 11 L Reactive Lymphs % 2 H Monocytes % (Manual) 11 H Eosinophils % (Manual) 1 Platelet Estimate Normal RBC Morphology Normal Sodium 140 Potassium 4.5 Chloride 104 Carbon Dioxide 24 Anion Gap 17 BUN 21 H Creatinine 1.3 H Est GFR ( Amer) 48 Est GFR (Non-Af Amer) 39 Random Glucose 100 Calcium 9.3 Total Bilirubin 1.3 AST 36 ALT 37 Alkaline Phosphatase 51 Troponin I 0.0380 NT-Pro-B Natriuret Pep Total Protein 6.9 Albumin 3.8 Globulin 3.1 Albumin/Globulin Ratio 1.2 Influenza Typ A,B (EIA) Negative for flu a/b 04/15/17 04/15/17 14:52 15:25 WBC RBC Hgb Hct MCV MCH MCHC RDW Plt Count MPV Neut % (Auto) Lymph % (Auto) Norton % (Auto) Eos % (Auto) Baso % (Auto) Neut # (Auto) Lymph # (Auto) Norton # (Auto) Eos # (Auto) Baso # (Auto) Neutrophils % (Manual) Lymphocytes % (Manual) Reactive Lymphs % Monocytes % (Manual) Eosinophils % (Manual) Platelet Estimate RBC Morphology Sodium Potassium Chloride Carbon Dioxide Anion Gap BUN Creatinine Est GFR ( Amer) Est GFR (Non-Af Amer) Random Glucose Calcium Total Bilirubin AST ALT Alkaline Phosphatase Troponin I 0.8000 H* NT-Pro-B Natriuret Pep 3260 H Total Protein Albumin Globulin Albumin/Globulin Ratio Influenza Typ A,B (EIA) Radiology Interpretations (Free Text): (My interp)- Admission film shows mild pulm vasc congestion, no gross effusions or consolidation. AICD PPM over R upper chest, left Mastectomy evidence. EKG/Cardiology Studies: ( my interp): Admission study shows paced atrial rhythm @ 66/min, T inversions in II, III, F, I, L; and anterior ST-T changes with depression. Review of Systems - Review of Systems All systems: reviewed and no additional remarkable complaints except (as above) Critical Care Progress Note - Nutrition Nutrition: Nutrition Category Date Time Status Heart Healthy Diet [DIET] Diets 04/15/17 Dinner Active
[2017-04-15 18:28] LABS: PROTHROMBIN TIME 11.1 Seconds (9.8-13.1)
[2017-04-15 18:43] LABS: PROTHROMBIN TIME 10.9 Seconds (9.8-13.1)
[2017-04-15] MEDS: Nitroglycerin 2% Ointment Foilpak UD TOP SCH (22:40)
[2017-04-16 01:24] LABS: PROTHROMBIN TIME 11.5 Seconds (9.8-13.1)
[2017-04-16 01:27] LABS: PARTIAL THROMBOPLASTIN TIME 97.8 Seconds (25.6-37.1)
--- NOTE | 2017-04-16 01:42 | CP.PCM.CON ---
History of Present Illness - History of Present Illness History of Present Illness: Consultation for evaluation of NSTEMI HPI : Review of Systems - Review of Systems Systems not reviewed;Unavailable: Acuity of Condition - Constitutional Constitutional: As Per HPI, Lethargy, Malaise - EENT Eyes: As Per HPI Ears: As Per HPI - Breasts Breasts: As Per HPI - Cardiovascular Cardiovascular: As Per HPI - Respiratory Respiratory: As Per HPI - Gastrointestinal Gastrointestinal: As Per HPI - Genitourinary Genitourinary: As Per HPI - Reproductive: Female Reproductive:Female: As Per HPI - Menstruation Menstruation: As Per HPI - Musculoskeletal Musculoskeletal: As Per HPI - Integumentary Integumentary: As Per HPI - Neurological Neurological: As Per HPI - Psychiatric Psychiatric: As Per HPI - Endocrine Endocrine: As Per HPI - Hematologic/Lymphatic Hematologic: As Per HPI Past Patient History - Infectious Disease Hx of Infectious Diseases: None - Tetanus Immunizations Tetanus Immunization: Unknown - Past Medical History & Family History Past Medical History?: Yes - Past Social History Smoking Status: Unknown If Ever Smoked - CARDIAC Hx Cardiac Disorders: Yes - PULMONARY Hx Bronchitis: Yes Hx Chronic Obstructive Pulmonary Disease (COPD): Yes Hx Pneumonia: Yes - NEUROLOGICAL HX Cerebrovascular Accident: Yes Hx Transient Ischemic Attacks (TIA): Yes - HEENT Hx Cataracts: Yes (Extracted) - RENAL Hx Chronic Kidney Disease: No - ENDOCRINE/METABOLIC Hx Hypothyroidism: Yes - HEMATOLOGICAL/ONCOLOGICAL Hx Cancer: Yes (Breast) Hx Human Immunodeficiency Virus (HIV): No - INTEGUMENTARY Hx Dermatological Problems: No - MUSCULOSKELETAL/RHEUMATOLOGICAL Hx Falls: No - GASTROINTESTINAL Hx Gastrointestinal Disorders: No - GENITOURINARY/GYNECOLOGICAL Hx Incontinence: Yes - PSYCHIATRIC Hx Substance Use: No - SURGICAL HISTORY Hx Angioplasty: Yes Hx Appendectomy: Yes Hx Cholecystectomy: Yes Hx Coronary Stent: Yes Hx Eye Surgery: Yes Hx Mastectomy: Yes - ANESTHESIA Hx Anesthesia: Yes Hx Anesthesia Reactions: No Hx Malignant Hyperthermia: No Meds Allergies/Adverse Reactions: Allergies Allergy/AdvReac Type Severity Reaction Status Date / Time No Known Allergies Allergy Verified 12/09/16 14:00 - Medications Medications: Current Medications Anastrozole (Arimidex 1 Mg Tab) 1 mg PO DAILY [facility] Last Admin: 04/15/17 15:17 Dose: 1 mg Ascorbic Acid (Vitamin C 500 Mg Tab) 500 mg PO DAILY [facility] Last Admin: 04/15/17 14:23 Dose: Not Given Aspirin (Ecotrin) 81 mg PO DAILY [facility] Last Admin: 04/15/17 13:14 Dose: Not Given Atorvastatin Calcium (Lipitor) 20 mg PO HS [facility] Last Admin: 04/15/17 22:41 Dose: 20 mg Calcium/Vitamin D (Oyster Shell Calcium/Vitamin D 500 Mg-200 Iu) 1 tab PO DAILY [facility] Last Admin: 04/15/17 14:17 Dose: Not Given Cholecalciferol (Vitamin D) 1,000 intlu PO DAILY [facility] Last Admin: 04/15/17 14:15 Dose: 1,000 intlu Docusate Sodium (Colace) 100 mg PO BID PRN PRN Reason: Constipation Heparin Sodium/Dextrose (Heparin 25,000 Units/250ml In D5w) 25,000 units in 250 mls @ 8 mls/hr IV .Q24H [facility] PRN Reason: Protocol Last Titration: 04/16/17 01:34 Dose: 0 mls/hr Levothyroxine Sodium (Synthroid) 25 mcg PO DAILY@0630 [facility] Losartan Potassium (Cozaar) 25 mg PO DAILY [facility] Last Admin: 04/15/17 14:12 Dose: 25 mg Metoprolol Tartrate (Lopressor) 50 mg PO Q12H [facility] Last Admin: 04/16/17 01:13 Dose: 50 mg Multivitamins/Minerals (Therapeutic-M Tab) 1 tab PO DAILY [facility] Last Admin: 04/15/17 14:17 Dose: Not Given Nitroglycerin (Nitrostat Sl Tab) 0.4 mg SL Q5MIN PRN PRN Reason: chest pain Nitroglycerin (Nitro-Bid 2% Oint) 1 ea TOP QID [facility] Last Admin: 04/15/17 22:40 Dose: 1 ea Spironolactone (Aldactone) 12.5 mg PO DAILY [facility] Last Admin: 04/15/17 14:13 Dose: 12.5 mg Vitamin E (Vitamin E 400 Units Cap) 400 intlu PO DAILY [facility] Last Admin: 04/15/17 14:15 Dose: 400 intlu Physical Exam - Constitutional Appears: Well - Head Exam Head Exam: ATRAUMATIC, NORMAL INSPECTION, NORMOCEPHALIC - Eye Exam Eye Exam: EOMI, Normal appearance, PERRL Pupil Exam: NORMAL ACCOMODATION, PERRL - ENT Exam ENT Exam: Mucous Membranes Moist, Normal Exam - Neck Exam Neck exam: Positive for: Normal Inspection - Respiratory Exam Respiratory Exam: Clear to Auscultation Bilateral, NORMAL BREATHING PATTERN - Cardiovascular Exam Cardiovascular Exam: REGULAR RHYTHM, RRR, Systolic Murmur - GI/Abdominal Exam GI & Abdominal Exam: Normal Bowel Sounds, Soft. absent: Tenderness - Extremities Exam Extremities exam: Positive for: normal inspection - Back Exam Back exam: NORMAL INSPECTION - Neurological Exam Neurological exam: Alert, CN II-XII Intact, Normal Gait, Oriented x3, Reflexes Normal - Psychiatric Exam Psychiatric exam: Normal Affect, Normal Mood - Skin Skin Exam: Dry, Intact, Normal Color, Warm Results - Vital Signs Recent Vital Signs: Last Vital Signs Temp 98.5 F 04/15/17 20:00 Pulse 86 04/16/17 01:13 Resp 27 H 04/15/17 22:00 BP 119/67 04/16/17 01:13 Pulse Ox 94 L 04/15/17 22:00 - Labs Result Diagrams: 04/15/17 07:50 04/15/17 07:50 Labs: Laboratory Results - last 24 hr 04/15/17 04/15/17 04/15/17 07:50 07:50 07:50 WBC 15.1 H RBC 4.10 Hgb 12.9 Hct 39.3 MCV 95.8 MCH 31.4 H MCHC 32.7 L RDW 13.6 Plt Count 207 MPV 9.1 Neut % (Auto) 80.0 H Lymph % (Auto) 8.7 L [place] % (Auto) 9.9 Eos % (Auto) 0.8 Baso % (Auto) 0.6 Neut # (Auto) 12.1 H Lymph # (Auto) 1.3 [place] # (Auto) 1.5 H Eos # (Auto) 0.1 Baso # (Auto) 0.1 Neutrophils % (Manual) 75 Lymphocytes % (Manual) 11 L Reactive Lymphs % 2 H Monocytes % (Manual) 11 H Eosinophils % (Manual) 1 Platelet Estimate Normal RBC Morphology Normal PT INR APTT Sodium 140 Potassium 4.5 Chloride 104 Carbon Dioxide 24 Anion Gap 17 BUN 21 H Creatinine 1.3 H Est GFR ( Amer) 48 Est GFR (Non-Af Amer) 39 Random Glucose 100 Calcium 9.3 Total Bilirubin 1.3 AST 36 ALT 37 Alkaline Phosphatase 51 Troponin I 0.0380 NT-Pro-B Natriuret Pep Total Protein 6.9 Albumin 3.8 Globulin 3.1 Albumin/Globulin Ratio 1.2 Influenza Typ A,B (EIA) Negative for flu a/b 04/15/17 04/15/17 04/15/17 14:52 15:25 16:55 WBC RBC Hgb Hct MCV MCH MCHC RDW Plt Count MPV Neut % (Auto) Lymph % (Auto) [place] % (Auto) Eos % (Auto) Baso % (Auto) Neut # (Auto) Lymph # (Auto) [place] # (Auto) Eos # (Auto) Baso # (Auto) Neutrophils % (Manual) Lymphocytes % (Manual) Reactive Lymphs % Monocytes % (Manual) Eosinophils % (Manual) Platelet Estimate RBC Morphology PT 11.1 INR 1.0 APTT Sodium Potassium Chloride Carbon Dioxide Anion Gap BUN Creatinine Est GFR ( Amer) Est GFR (Non-Af Amer) Random Glucose Calcium Total Bilirubin AST ALT Alkaline Phosphatase Troponin I 0.8000 H* NT-Pro-B Natriuret Pep 3260 H Total Protein Albumin Globulin Albumin/Globulin Ratio Influenza Typ A,B (EIA) 04/15/17 04/15/17 04/16/17 17:45 17:45 01:12 WBC RBC Hgb Hct MCV MCH MCHC RDW Plt Count MPV Neut % (Auto) Lymph % (Auto) [place] % (Auto) Eos % (Auto) Baso % (Auto) Neut # (Auto) Lymph # (Auto) [place] # (Auto) Eos # (Auto) Baso # (Auto) Neutrophils % (Manual) Lymphocytes % (Manual) Reactive Lymphs % Monocytes % (Manual) Eosinophils % (Manual) Platelet Estimate RBC Morphology PT 10.9 11.5 INR 1.0 1.0 APTT 28.8 97.8 H D Sodium Potassium Chloride Carbon Dioxide Anion Gap BUN Creatinine Est GFR ( Amer) Est GFR (Non-Af Amer) Random Glucose Calcium Total Bilirubin AST ALT Alkaline Phosphatase Troponin I NT-Pro-B Natriuret Pep Total Protein Albumin Globulin Albumin/Globulin Ratio Influenza Typ A,B (EIA) Assessment & Plan (1) Chest pain Status: Acute (2) Dyspnea Status: Acute (3) Fatigue Status: Acute (4) NSTEMI (non-ST elevated myocardial infarction) Status: Acute Priority: High (5) CHF (congestive heart failure) Status: Chronic Priority: High (6) HLD (hyperlipidemia) Status: Chronic (7) HTN (hypertension) Status: Chronic
[2017-04-16 06:05] LABS: CALCIUM 9.7 mg/dL (8.4-10.2)
[2017-04-16 06:08] LABS: BASO # 0.1 K/uL (0.0-0.2); BASO % 0.6 % (0.0-2.0); EOS # 0.1 K/uL (0.0-0.7); EOS % 0.8 % (0.0-4.0); HEMOGLOBIN 13.7 g/dL (12.0-16.0); LYMPH # 1.7 K/uL (1.0-4.3); MEAN CELL VOLUME 95.4 fl (81.0-99.0); MEAN CORPUSCULAR HEMOGLOBIN 31.3 pg (27.0-31.0); MEAN CORPUSCULAR HGB CONC 32.8 g/dL (33.0-37.0); MEAN PLATELET VOLUME 9.3 fl (7.2-11.7); MONO # 1.7 K/uL (0.0-0.8); MONO % 11.4 % (0.0-10.0); NEUT # 11.4 K/uL (1.8-7.0); NEUT % 76.2 % (50.0-75.0); NRBC % 0.1 % (0.0-0.0); RBC 4.38 Mil/uL (3.80-5.20); RED CELL DISTRIBUTION WIDTH 13.9 % (11.5-14.5)
[2017-04-16] MEDS: Levothyroxine 25 MCG TAB PO SCH (06:18)
--- NOTE | 2017-04-16 08:11 | PQF GENQUE ---
This form is a permanent part of the medical record 04/16/17 Dr. Hernandez, Please specify the type and acuity of heart failure in your progress notes. Admitted with L arm pain and SOB. Troponin # 2 & 3 elevated. ProBNP 3260. CXR: Mild pulmonary vascular congestion/ CHF a new finding. Lasix IV x 1 given. Documentation of NSTEMI, CHF. ECHO from November 2016: EF 15-25%, LA severely dilated, severe MR, grade II - pseudo normal filling dynamics. Clarification of your documentation is requested to better reflect the severity of illness and intensity of treatment of your patient. Indicators present [] Specify: [] [] Specify: [] [] Specify: [] [] Specify: [] Location in the medical record that reflects the above clinical findings: [] Treatment Provided: [] PHYSICIAN'S RESPONSE Based on your medical judgment of the clinical indicators outlined above please clarify the following: [] Practitioner response [] If unable to determine, please check the box, sign and date. Present On Admission (POA) Indicator: [] Present at the time of admission [] Not present at the time of admission [] Clinically Undetermined In responding to this query, please exercise your independent professional judgment. The fact that a question is asked does not imply that any particular answer is desired or expected. Thank you for your clarification on this documentation. If you have any questions please call:ext [phone] * Thank you, Elizabeth Delgado RN CD[facility]
[2017-04-16] MEDS: Nitroglycerin 2% Ointment Foilpak UD TOP SCH ×4 (08:26→22:37)
[2017-04-16] MEDS: Multivitamin With Minerals Tab PO SCH (08:27)
[2017-04-16] MEDS: Calcium-Vit D 500 mg-200 Units Tab UD PO SCH (08:27)
[2017-04-16] MEDS: Cholecalciferol 1,000 INTLU TAB PO SCH (08:27)
--- NOTE | 2017-04-16 08:48 | CP.PCM.PN ---
<AllanSukh - Last Filed: 04/16/17 16:42> Subjective - Date & Time of Evaluation Date of Evaluation: 04/16/17 Time of Evaluation: 08:39 - Subjective Subjective: Cardiology progress note for Dr. Da Silva Patient seen and examined at bedside. Patient is well known to me. She states that she feels fine right now, had mild discomfort when she came in, with shortness of breath and left sided arm pain. She states that she was surprised to learn it was a heart attack, because this felt different than past TX's. Currently, patient is sitting comfortably and denies any complaints, including chest pain, shortness of breath, nausea, vomiting, diarrhea, fevers, and chills. Objective - Vital Signs/Intake and Output Vital Signs (last 24 hours): Temp Pulse Resp BP Pulse Ox 98.6 F 74 20 92/59 L 96 04/16/17 07:49 04/16/17 08:24 04/16/17 07:49 04/16/17 08:26 04/16/17 07:49 Intake and Output: 04/16/17 04/16/17 06:59 18:59 Intake Total 0 0 Balance 0 0 - Medications Medications: Current Medications Acetaminophen (Tylenol 325mg Tab) 650 mg PO Q6 PRN PRN Reason: Pain, moderate (4-7) Anastrozole (Arimidex 1 Mg Tab) 1 mg PO DAILY [facility] Last Admin: 04/16/17 08:23 Dose: 1 mg Ascorbic Acid (Vitamin C 500 Mg Tab) 500 mg PO DAILY [facility] Last Admin: 04/16/17 08:27 Dose: 500 mg Aspirin (Ecotrin) 81 mg PO DAILY [facility] Last Admin: 04/16/17 08:25 Dose: 81 mg Atorvastatin Calcium (Lipitor) 20 mg PO HS [facility] Last Admin: 04/15/17 22:41 Dose: 20 mg Calcium/Vitamin D (Oyster Shell Calcium/Vitamin D 500 Mg-200 Iu) 1 tab PO DAILY [facility] Last Admin: 04/16/17 08:27 Dose: 1 tab Cholecalciferol (Vitamin D) 1,000 intlu PO DAILY [facility] Last Admin: 04/16/17 08:27 Dose: 1,000 intlu Docusate Sodium (Colace) 100 mg PO BID PRN PRN Reason: Constipation Heparin Sodium/Dextrose (Heparin 25,000 Units/250ml In D5w) 25,000 units in 250 mls @ 8 mls/hr IV .Q24H [facility] PRN Reason: Protocol Last Titration: 04/16/17 08:23 Dose: 7 mls/hr Levothyroxine Sodium (Synthroid) 25 mcg PO DAILY@0630 [facility] Last Admin: 04/16/17 06:18 Dose: 25 mcg Losartan Potassium (Cozaar) 25 mg PO DAILY [facility] Last Admin: 04/16/17 08:24 Dose: 25 mg Metoprolol Tartrate (Lopressor) 50 mg PO Q12H [facility] Last Admin: 04/16/17 01:13 Dose: 50 mg Multivitamins/Minerals (Therapeutic-M Tab) 1 tab PO DAILY [facility] Last Admin: 04/16/17 08:27 Dose: 1 tab Nitroglycerin (Nitrostat Sl Tab) 0.4 mg SL Q5MIN PRN PRN Reason: chest pain Nitroglycerin (Nitro-Bid 2% Oint) 1 ea TOP QID [facility] Last Admin: 04/16/17 08:26 Dose: Not Given Spironolactone (Aldactone) 12.5 mg PO DAILY [facility] Last Admin: 04/16/17 08:22 Dose: 12.5 mg Vitamin E (Vitamin E 400 Units Cap) 400 intlu PO DAILY [facility] Last Admin: 04/16/17 08:27 Dose: 400 intlu - Labs Labs: 04/16/17 04:55 04/16/17 04:55 PT 11.5 Seconds (9.8-13.1) 04/16/17 01:12 INR 1.0 (0.9-1.2) 04/16/17 01:12 APTT 41.9 Seconds (25.6-37.1) H D 04/16/17 07:00 - Additional Findings Additional findings: Physical Exam: Vital Signs as below Const'l: awake alert & oriented x 4, no acute distress Head/Neck: neck supple, no jvd, trachea midline, carotid midline, no cervical/head mass Eyes: pupils equally reactive to light and accommodation, nonicteric sclera, extraocular intact ENT: auditory acuity grossly intact, throat not congested, no nasal deformity Cardio: regular rate, regular rhythm, no murmurs rubs gallops, no carotid bruit, normal s1, s2 Pulm: +Nasal Cannula 2L; no accessory muscle use, equal normal breath sounds bilaterally, clear to ausculation bilaterally Abd: soft non tender non-distended, normal bowel sounds x 4 quadrants, no palpable masses Derm: no rashes, no ulcers, no lesions Extr: no edema, no cyanosis, no calf tenderness, no lesions, no varicosities Neuro: cranial nerves II-XII grossly intact, upper extremity and lower extremity 5/5 muscle strength bilaterally, no loss of sensation in upper extremities, lower extremities bilaterally and core Assessment and Plan - Assessment and Plan (Free Text) Assessment: 81 year old female with past medical history significant for CAD, hypertension, Dilated Cardiomyopathy with AICD, previous CVA, COPD, OA and history of left breast cancer presented with shortness of breath and left arm pain. Patient denied chest discomfort. Patient was found to have elevated troponins up to 3.070 with NSR on EKG. Chest Xray showed new vascular congestion. ECHO from showed EF of 15-25%. Patient is on appropriate heart failure medication at home, Aldactone, Nitrate, Losartan, Atorvastatin, and aspirin - but should be on metoprolol succinate instead of tartrate. Patient is currently on appropriate therapy for NSTEMI as well, including heparin drip NSTEMI - Troponins elevated up to 3.07, EKG normal - Aspirin, Metoprolol succinate, Atorvastatin, Aldactone, Nitrate, Losartan, Heparin drip - Patient needs a cardiac cath, set up for Wednesday at 1:00PM Coronary artery disease - Treatment as above - ASCVD score not applicable due to age and current history Hypertension - Losartan, Metoprolol - Monitor Dilated Cardiomyopathy - Patient has AICD - GDMT as above Previous CVA - Per primary team COPD history - Per primary team Osteoarthritis - Per primary team Breast Cancer - Per primary team Dispo: Patient is set up for a catheterization on Wednesday at 1:00PM <Bernard Da Silva - Last Filed: 04/16/17 17:46> Objective - Vital Signs/Intake and Output Vital Signs (last 24 hours): Temp Pulse Resp BP Pulse Ox 97.5 F L 60 24 101/50 L 99 04/16/17 16:00 04/16/17 16:00 04/16/17 14:00 04/16/17 16:31 04/16/17 16:00 Intake and Output: 04/16/17 04/16/17 06:59 18:59 Intake Total 0 850 Balance 0 850 - Medications Medications: Current Medications Acetaminophen (Tylenol 325mg Tab) 650 mg PO Q6 PRN PRN Reason: Pain, moderate (4-7) Last Admin: 04/16/17 08:43 Dose: 650 mg Anastrozole (Arimidex 1 Mg Tab) 1 mg PO DAILY [facility] Last Admin: 04/16/17 08:23 Dose: 1 mg Ascorbic Acid (Vitamin C 500 Mg Tab) 500 mg PO DAILY [facility] Last Admin: 04/16/17 08:27 Dose: 500 mg Aspirin (Ecotrin) 81 mg PO DAILY [facility] Last Admin: 04/16/17 08:25 Dose: 81 mg Atorvastatin Calcium (Lipitor) 20 mg PO HS [facility] Last Admin: 04/15/17 22:41 Dose: 20 mg Calcium/Vitamin D (Oyster Shell Calcium/Vitamin D 500 Mg-200 Iu) 1 tab PO DAILY [facility] Last Admin: 04/16/17 08:27 Dose: 1 tab Cholecalciferol (Vitamin D) 1,000 intlu PO DAILY [facility] Last Admin: 04/16/17 08:27 Dose: 1,000 intlu Docusate Sodium (Colace) 100 mg PO BID PRN PRN Reason: Constipation Ceftriaxone Sodium 1 gm/ (Sodium Chloride) 100 mls @ 100 mls/hr IVPB DAILY [facility] PRN Reason: Protocol Last Admin: 04/16/17 11:25 Dose: 100 mls/hr Azithromycin 500 mg/ Sodium (Chloride) 250 mls @ 250 mls/hr IVPB DAILY [facility] PRN Reason: Protocol Last Admin: 04/16/17 11:26 Dose: 250 mls/hr Levothyroxine Sodium (Synthroid) 25 mcg PO DAILY@0630 [facility] Last Admin: 04/16/17 06:18 Dose: 25 mcg Losartan Potassium (Cozaar) 25 mg PO DAILY [facility] Last Admin: 04/16/17 08:24 Dose: 25 mg Metoprolol Succinate (Toprol Xl) 50 mg PO DAILY [facility] Multivitamins/Minerals (Therapeutic-M Tab) 1 tab PO DAILY [facility] Last Admin: 04/16/17 08:27 Dose: 1 tab Nitroglycerin (Nitrostat Sl Tab) 0.4 mg SL Q5MIN PRN PRN Reason: chest pain Nitroglycerin (Nitro-Bid 2% Oint) 1 ea TOP QID [facility] Last Admin: 04/16/17 16:31 Dose: Not Given Vitamin E (Vitamin E 400 Units Cap) 400 intlu PO DAILY [facility] Last Admin: 04/16/17 08:27 Dose: 400 intlu - Labs Labs: 04/16/17 12:30 04/16/17 12:30 PT 11.5 Seconds (9.8-13.1) 04/16/17 01:12 INR 1.0 (0.9-1.2) 04/16/17 01:12 APTT 72.5 Seconds (25.6-37.1) H D 04/16/17 12:30 Assessment and Plan (1) Chest pain Status: Acute (2) Dyspnea Status: Acute (3) Fatigue Status: Acute (4) NSTEMI (non-ST elevated myocardial infarction) Status: Acute (5) CHF (congestive heart failure) Status: Chronic (6) HLD (hyperlipidemia) Status: Chronic (7) HTN (hypertension) Status: Chronic Attending/Attestation - Attestation I have personally seen and examined this patient.: Yes I have fully participated in the care of the patient.: Yes I have reviewed all pertinent clinical information, including history, physical exam and plan: Yes Notes (Text): 04/16/17 17:45 plan for cath on wednesday at 7 am cont GDMT for CAD
[2017-04-16] MEDS ORDERED: Enoxaparin 30 mg Syringe SC SCH (09:00)
--- NOTE | 2017-04-16 09:20 | CP.PCM.PN ---
Subjective - Date & Time of Evaluation Date of Evaluation: 04/16/17 Time of Evaluation: 09:11 - Subjective Subjective: Transferred to ICU last evening because of NSTEMI. Troponins #2&3 are elevated. WBC also remains elevated at 15. Vital signs are stable and she has been afebrile. Initial ER CXR showed vascular congested pattern, but there may also be a faint/ early infiltrate in the RLL. She had been taking azithomycin as an outpatient which may have resulted in partial treatment, suppressing symptoms. This could have been the process that resulted in her having AMI. Presently seated in the bedside chair. Feels quite improved today compared to yesterday. No dependant edema, no cyanosis, no calf tenderness. Neck is supple and trachea midline. No visible JVD. No dullness over either hemithorax. Breath sounds are present bilaterally with few dry LL rales. No audible wheezing or bronchial breathing. Heart sounds well heard, + apical systolic murmur, no rub. Cardiology note reviewed. NSTEMI. CHF-rLVEF/Cardiomyopathy. Possible RLL pneumonia. Will empirically give ceftriaxone/azithromycin for RLL infiltrate. Follow leukocytosis and CXR. Anticoagulated with heparin. Furosemide given last night. Continue maintenance medications. Objective - Vital Signs/Intake and Output Vital Signs (last 24 hours): Temp Pulse Resp BP Pulse Ox 98.6 F 74 20 92/59 L 96 04/16/17 07:49 04/16/17 08:24 04/16/17 07:49 04/16/17 08:26 04/16/17 07:49 Intake and Output: 04/15/17 04/16/17 23:59 11:59 Intake Total 240 0 Balance 240 0 - Medications Medications: Current Medications Acetaminophen (Tylenol 325mg Tab) 650 mg PO Q6 PRN PRN Reason: Pain, moderate (4-7) Last Admin: 04/16/17 08:43 Dose: 650 mg Anastrozole (Arimidex 1 Mg Tab) 1 mg PO DAILY [facility] Last Admin: 04/16/17 08:23 Dose: 1 mg Ascorbic Acid (Vitamin C 500 Mg Tab) 500 mg PO DAILY [facility] Last Admin: 04/16/17 08:27 Dose: 500 mg Aspirin (Ecotrin) 81 mg PO DAILY [facility] Last Admin: 04/16/17 08:25 Dose: 81 mg Atorvastatin Calcium (Lipitor) 20 mg PO [facility] Last Admin: 04/15/17 22:41 Dose: 20 mg Calcium/Vitamin D (Oyster Shell Calcium/Vitamin D 500 Mg-200 Iu) 1 tab PO DAILY [facility] Last Admin: 04/16/17 08:27 Dose: 1 tab Cholecalciferol (Vitamin D) 1,000 intlu PO DAILY [facility] Last Admin: 04/16/17 08:27 Dose: 1,000 intlu Docusate Sodium (Colace) 100 mg PO BID PRN PRN Reason: Constipation Heparin Sodium/Dextrose (Heparin 25,000 Units/250ml In D5w) 25,000 units in 250 mls @ 8 mls/hr IV .Q24H [facility] PRN Reason: Protocol Last Titration: 04/16/17 08:23 Dose: 7 mls/hr Ceftriaxone Sodium 1 gm/ (Sodium Chloride) 100 mls @ 100 mls/hr IVPB DAILY [facility] PRN Reason: Protocol Azithromycin 500 mg/ Sodium (Chloride) 250 mls @ 250 mls/hr IVPB DAILY [facility] PRN Reason: Protocol Levothyroxine Sodium (Synthroid) 25 mcg PO DAILY@0630 [facility] Last Admin: 04/16/17 06:18 Dose: 25 mcg Losartan Potassium (Cozaar) 25 mg PO DAILY [facility] Last Admin: 04/16/17 08:24 Dose: 25 mg Metoprolol Tartrate (Lopressor) 50 mg PO Q12H [facility] Last Admin: 04/16/17 01:13 Dose: 50 mg Multivitamins/Minerals (Therapeutic-M Tab) 1 tab PO DAILY [facility] Last Admin: 04/16/17 08:27 Dose: 1 tab Nitroglycerin (Nitrostat Sl Tab) 0.4 mg SL Q5MIN PRN PRN Reason: chest pain Nitroglycerin (Nitro-Bid 2% Oint) 1 ea TOP QID [facility] Last Admin: 04/16/17 08:26 Dose: Not Given Spironolactone (Aldactone) 12.5 mg PO DAILY [facility] Last Admin: 04/16/17 08:22 Dose: 12.5 mg Vitamin E (Vitamin E 400 Units Cap) 400 intlu PO DAILY [facility] Last Admin: 04/16/17 08:27 Dose: 400 intlu - Labs Labs: 04/16/17 04:55 04/16/17 04:55 PT 11.5 Seconds (9.8-13.1) 04/16/17 01:12 INR 1.0 (0.9-1.2) 04/16/17 01:12 APTT 41.9 Seconds (25.6-37.1) H D 04/16/17 07:00 Assessment and Plan (1) NSTEMI (non-ST elevated myocardial infarction) Status: Acute (2) Pneumonia Status: Suspected (3) Low cardiac output syndrome Status: Chronic (4) Cardiomyopathy Status: Chronic (5) CAD (coronary artery disease) Status: Chronic (6) COPD (chronic obstructive pulmonary disease) Status: Chronic (7) Hypothyroidism Status: Chronic
--- NOTE | 2017-04-16 10:18 | CP.CCUPN ---
CCU Subjective - Physician Review Subjective (Free Text): Awake and alert, in pleasant mood, sitting in chair OOB, denies any new symptoms , given one dose IV Lasix overnight, no I/o's available,but Nurses report "Very good diuresis." denies any new / recurrent discomfort. Other vitals and I/O's reviewed. Allergies: NKDA Home Meds include: Anastrazole, Vit C, Vit D, Vit E, MVIs, Ecotrin, Calcium Carbonate, Pepcid, Levothyroxine, Cozaar, Vesicare, Aldactone. ROS: No other pertinent negs or positives on 10+ system review. PMSFH: Mi x 5, 1st in 1982, denies any h/o of PCI / Stents. AICD- PPM placed last year. H/o Breast ca with left Mastectomy, Hypothyroidism, Hyperlipidemia, HTN. Past smoker, denies ETOH use. All other Nursing and physician documentation reviewed to date; no new pertinent info noted relevant to current medical problems. IMPRESSION / MAJOR PROBLEMS NOW: 1. ACS with NSTEMI 2. Mild decompensated Cardiomyopathy with L- CHF, severe MR and DD dysfx as last reported on ECHO Nov 2016. 3. CKD III PLAN: 1. IV Heparin drip, topical nitrates, ASA, BBs, Statin, ARB, and Aldactone, supplemental oxygen. 2. Additional Lasix prn. 3. Check remainder of serial Trops, repeat EKG in AM. 4. Initialization of empiric abx coverage as per Pulm / PMD. Check repeat CXR over the next 1-2 days. CCU Objective - Vital Signs / Intake & Output Vital Signs (Last 4 hours): Vital Signs Temp Pulse Resp BP Pulse Ox 04/16/17 08:26 92/59 L 04/16/17 08:24 74 92/59 L 04/16/17 07:49 98.6 F 67 20 105/65 96 Intake and Output (Last 8hrs): Intake & Output 04/15/17 04/16/17 04/16/17 22:59 06:59 14:59 Intake Total 240 0 0 Balance 240 0 0 Intake: IV 0 0 Oral 240 - Physical Exam Head: Positive for: Normocephalic Pupils: Positive for: PERRL Extroacular Muscles: Positive for: EOMI Conjunctiva: Positive for: Normal Mouth: Positive for: Moist Mucous Membranes Pharnyx: Positive for: Normal Neck: Negative for: JVD, Lymphadenopathy Respiratory/Chest: Positive for: Clear to Auscultation, Rales (basilar bilateral rales) Cardiovascular: Positive for: Regular Rate and Rhythm, Murmurs. Negative for: Rub Abdomen: Positive for: Normal Bowel Sounds, Mass/Organomegaly. Negative for: Tenderness, Distention Lower Extremity: Positive for: Normal Inspection, NORMAL PULSES. Negative for: Edema, CALF TENDERNESS, Cyanosis Neurological: Positive for: GCS=15, Motor Func Grossly Intact, Normal Sensory Function Skin: Positive for: Warm, Dry. Negative for: Rashes Psychiatric: Positive for: Alert, Oriented x 3 - Medications Active Medications: Active Medications Generic Name Dose Route Start Last Admin Trade Name Freq PRN Reason Stop Dose Admin Acetaminophen 650 mg 04/16/17 08:26 04/16/17 08:43 Tylenol 325mg Tab PO 650 mg Q6 PRN Administration Pain, moderate (4-7) Anastrozole 1 mg 04/15/17 12:15 04/16/17 08:23 Arimidex 1 Mg Tab PO 1 mg DAILY YUVAL Administration Ascorbic Acid 500 mg 04/15/17 13:15 04/16/17 08:27 Vitamin C 500 Mg Tab PO 500 mg DAILY YUVAL Administration Aspirin 81 mg 04/15/17 12:15 04/16/17 08:25 Ecotrin PO 81 mg DAILY YUVAL Administration Atorvastatin Calcium 20 mg 04/15/17 22:00 04/15/17 22:41 Lipitor PO 20 mg HS YUVAL Administration Calcium/Vitamin D 1 tab 04/15/17 13:15 04/16/17 08:27 Oyster Shell Calcium/Vitamin D 500 Mg-200 Iu PO 1 tab DAILY YUVAL Administration Cholecalciferol 1,000 intlu 04/15/17 12:15 04/16/17 08:27 Vitamin D PO 1,000 intlu DAILY YUVAL Administration Docusate Sodium 100 mg 04/15/17 11:50 Colace PO BID PRN Constipation Heparin Sodium/Dextrose 25,000 units in 250 mls @ 8 mls/hr 04/15/17 16:45 05/02 08:23 Heparin 25,000 Units/250ml In D5w IV 7 mls/hr .Q24H YUVAL Titration Protocol Ceftriaxone Sodium 1 gm/ 100 mls @ 100 mls/hr 04/16/17 09:15 Sodium Chloride IVPB DAILY [facility] Protocol Azithromycin 500 mg/ Sodium 250 mls @ 250 mls/hr 04/16/17 09:15 Chloride IVPB DAILY [facility] Protocol Levothyroxine Sodium 25 mcg 04/16/17 06:30 04/16/17 06:18 Synthroid PO 25 mcg DAILY@0630 YUVAL Administration Losartan Potassium 25 mg 04/15/17 12:15 04/16/17 08:24 Cozaar PO 25 mg DAILY YUVAL Administration Metoprolol Tartrate 50 mg 04/15/17 12:15 04/16/17 01:13 Lopressor PO 50 mg Q12H YUVAL Administration Multivitamins/Minerals 1 tab 04/15/17 13:15 04/16/17 08:27 Therapeutic-M Tab PO 1 tab DAILY YUVAL Administration Nitroglycerin 0.4 mg 04/15/17 12:01 Nitrostat Sl Tab SL Q5MIN PRN chest pain Nitroglycerin 1 ea 04/15/17 22:00 04/16/17 08:26 Nitro-Bid 2% Oint TOP Not Given QID [facility] Spironolactone 12.5 mg 04/15/17 12:15 04/16/17 08:22 Aldactone PO 12.5 mg DAILY YUVAL Administration Vitamin E 400 intlu 04/15/17 12:15 04/16/17 08:27 Vitamin E 400 Units Cap PO 400 intlu DAILY YUVAL Administration - Patient Studies Lab Studies: Lab Studies 04/16/17 04/16/17 04/16/17 Range/Units 07:00 04:55 04:55 WBC 15.0 H (4.8-10.8) K/uL RBC 4.38 (3.80-5.20) Mil/uL Hgb 13.7 (12.0-16.0) g/dL Hct 41.8 (34.0-47.0) % MCV 95.4 (81.0-99.0) fl MCH 31.3 H (27.0-31.0) pg MCHC 32.8 L (33.0-37.0) g/dL RDW 13.9 (11.5-14.5) % Plt Count 228 (130-400) K/uL MPV 9.3 (7.2-11.7) fl Neut % (Auto) 76.2 H (50.0-75.0) % Lymph % (Auto) 11.0 L (20.0-40.0) % Schleicher % (Auto) 11.4 H (0.0-10.0) % Eos % (Auto) 0.8 (0.0-4.0) % Baso % (Auto) 0.6 (0.0-2.0) % Neut # (Auto) 11.4 H (1.8-7.0) K/uL Lymph # (Auto) 1.7 (1.0-4.3) K/uL Schleicher # (Auto) 1.7 H (0.0-0.8) K/uL Eos # (Auto) 0.1 (0.0-0.7) K/uL Baso # (Auto) 0.1 (0.0-0.2) K/uL Neutrophils % (Manual) (42-75) % Lymphocytes % (Manual) (20-50) % Reactive Lymphs % (0-0) % Monocytes % (Manual) (0-10) % Eosinophils % (Manual) (0-7) % Platelet Estimate (NORMAL) RBC Morphology (NORMAL) PT (9.8-13.1) Seconds INR (0.9-1.2) APTT 41.9 H D (25.6-37.1) Seconds Sodium 138 (132-148) mmol/l Potassium 4.3 (3.6-5.0) MMOL/L Chloride 98 (98-107) mmol/L Carbon Dioxide 26 (22-30) mmol/L Anion Gap 18 (10-20) BUN 20 H (7-17) mg/dl Creatinine 1.3 H (0.7-1.2) mg/dl Est GFR ( Amer) 48 Est GFR (Non-Af Amer) 39 Random Glucose 124 H (65-105) mg/dL Calcium 9.7 (8.4-10.2) mg/dL Troponin I (0.00-0.120) ng/mL NT-Pro-B Natriuret Pep (0-900) pg/ml Triglycerides 147 (0-149) mg/DL Cholesterol 185 (0-199) mg/dL LDL Cholesterol Direct 101 (0-129) mg/dL HDL Cholesterol 39 (30-70) MG/DL TSH 3rd Generation 4.36 (0.46-4.68) mIU/ML 04/16/17 04/16/17 04/15/17 Range/Units 01:12 01:12 17:45 WBC (4.8-10.8) K/uL RBC (3.80-5.20) Mil/uL Hgb (12.0-16.0) g/dL Hct (34.0-47.0) % MCV (81.0-99.0) fl MCH (27.0-31.0) pg MCHC (33.0-37.0) g/dL RDW (11.5-14.5) % Plt Count (130-400) K/uL MPV (7.2-11.7) fl Neut % (Auto) (50.0-75.0) % Lymph % (Auto) (20.0-40.0) % Schleicher % (Auto) (0.0-10.0) % Eos % (Auto) (0.0-4.0) % Baso % (Auto) (0.0-2.0) % Neut # (Auto) (1.8-7.0) K/uL Lymph # (Auto) (1.0-4.3) K/uL Schleicher # (Auto) (0.0-0.8) K/uL Eos # (Auto) (0.0-0.7) K/uL Baso # (Auto) (0.0-0.2) K/uL Neutrophils % (Manual) (42-75) % Lymphocytes % (Manual) (20-50) % Reactive Lymphs % (0-0) % Monocytes % (Manual) (0-10) % Eosinophils % (Manual) (0-7) % Platelet Estimate (NORMAL) RBC Morphology (NORMAL) PT 11.5 (9.8-13.1) Seconds INR 1.0 (0.9-1.2) APTT 97.8 H D 28.8 (25.6-37.1) Seconds Sodium (132-148) mmol/l Potassium (3.6-5.0) MMOL/L Chloride (98-107) mmol/L Carbon Dioxide (22-30) mmol/L Anion Gap (10-20) BUN (7-17) mg/dl Creatinine (0.7-1.2) mg/dl Est GFR ( Amer) Est GFR (Non-Af Amer) Random Glucose (65-105) mg/dL Calcium (8.4-10.2) mg/dL Troponin I 3.0700 H* (0.00-0.120) ng/mL NT-Pro-B Natriuret Pep (0-900) pg/ml Triglycerides (0-149) mg/DL Cholesterol (0-199) mg/dL LDL Cholesterol Direct (0-129) mg/dL HDL Cholesterol (30-70) MG/DL TSH 3rd Generation (0.46-4.68) mIU/ML 04/15/17 04/15/17 04/15/17 Range/Units 17:45 16:55 15:25 WBC (4.8-10.8) K/uL RBC (3.80-5.20) Mil/uL Hgb (12.0-16.0) g/dL Hct (34.0-47.0) % MCV (81.0-99.0) fl MCH (27.0-31.0) pg MCHC (33.0-37.0) g/dL RDW (11.5-14.5) % Plt Count (130-400) K/uL MPV (7.2-11.7) fl Neut % (Auto) (50.0-75.0) % Lymph % (Auto) (20.0-40.0) % Schleicher % (Auto) (0.0-10.0) % Eos % (Auto) (0.0-4.0) % Baso % (Auto) (0.0-2.0) % Neut # (Auto) (1.8-7.0) K/uL Lymph # (Auto) (1.0-4.3) K/uL Schleicher # (Auto) (0.0-0.8) K/uL Eos # (Auto) (0.0-0.7) K/uL Baso # (Auto) (0.0-0.2) K/uL Neutrophils % (Manual) (42-75) % Lymphocytes % (Manual) (20-50) % Reactive Lymphs % (0-0) % Monocytes % (Manual) (0-10) % Eosinophils % (Manual) (0-7) % Platelet Estimate (NORMAL) RBC Morphology (NORMAL) PT 10.9 11.1 (9.8-13.1) Seconds INR 1.0 1.0 (0.9-1.2) APTT (25.6-37.1) Seconds Sodium (132-148) mmol/l Potassium (3.6-5.0) MMOL/L Chloride (98-107) mmol/L Carbon Dioxide (22-30) mmol/L Anion Gap (10-20) BUN (7-17) mg/dl Creatinine (0.7-1.2) mg/dl Est GFR ( Amer) Est GFR (Non-Af Amer) Random Glucose (65-105) mg/dL Calcium (8.4-10.2) mg/dL Troponin I 0.8000 H* (0.00-0.120) ng/mL NT-Pro-B Natriuret Pep (0-900) pg/ml Triglycerides (0-149) mg/DL Cholesterol (0-199) mg/dL LDL Cholesterol Direct (0-129) mg/dL HDL Cholesterol (30-70) MG/DL TSH 3rd Generation (0.46-4.68) mIU/ML 04/15/17 04/15/17 Range/Units 14:52 07:50 WBC (4.8-10.8) K/uL RBC (3.80-5.20) Mil/uL Hgb (12.0-16.0) g/dL Hct (34.0-47.0) % MCV (81.0-99.0) fl MCH (27.0-31.0) pg MCHC (33.0-37.0) g/dL RDW (11.5-14.5) % Plt Count (130-400) K/uL MPV (7.2-11.7) fl Neut % (Auto) (50.0-75.0) % Lymph % (Auto) (20.0-40.0) % Schleicher % (Auto) (0.0-10.0) % Eos % (Auto) (0.0-4.0) % Baso % (Auto) (0.0-2.0) % Neut # (Auto) (1.8-7.0) K/uL Lymph # (Auto) (1.0-4.3) K/uL Schleicher # (Auto) (0.0-0.8) K/uL Eos # (Auto) (0.0-0.7) K/uL Baso # (Auto) (0.0-0.2) K/uL Neutrophils % (Manual) 75 (42-75) % Lymphocytes % (Manual) 11 L (20-50) % Reactive Lymphs % 2 H (0-0) % Monocytes % (Manual) 11 H (0-10) % Eosinophils % (Manual) 1 (0-7) % Platelet Estimate Normal (NORMAL) RBC Morphology Normal (NORMAL) PT (9.8-13.1) Seconds INR (0.9-1.2) APTT (25.6-37.1) Seconds Sodium (132-148) mmol/l Potassium (3.6-5.0) MMOL/L Chloride (98-107) mmol/L Carbon Dioxide (22-30) mmol/L Anion Gap (10-20) BUN (7-17) mg/dl Creatinine (0.7-1.2) mg/dl Est GFR ( Amer) Est GFR (Non-Af Amer) Random Glucose (65-105) mg/dL Calcium (8.4-10.2) mg/dL Troponin I (0.00-0.120) ng/mL NT-Pro-B Natriuret Pep 3260 H (0-900) pg/ml Triglycerides (0-149) mg/DL Cholesterol (0-199) mg/dL LDL Cholesterol Direct (0-129) mg/dL HDL Cholesterol (30-70) MG/DL TSH 3rd Generation (0.46-4.68) mIU/ML Laboratory Results - last 24 hr 04/15/17 04/15/17 04/15/17 07:50 14:52 15:25 WBC RBC Hgb Hct MCV MCH MCHC RDW Plt Count MPV Neut % (Auto) Lymph % (Auto) Schleicher % (Auto) Eos % (Auto) Baso % (Auto) Neut # (Auto) Lymph # (Auto) Schleicher # (Auto) Eos # (Auto) Baso # (Auto) Neutrophils % (Manual) 75 Lymphocytes % (Manual) 11 L Reactive Lymphs % 2 H Monocytes % (Manual) 11 H Eosinophils % (Manual) 1 Platelet Estimate Normal RBC Morphology Normal PT INR APTT Sodium Potassium Chloride Carbon Dioxide Anion Gap BUN Creatinine Est GFR ( Amer) Est GFR (Non-Af Amer) Random Glucose Calcium Troponin I 0.8000 H* NT-Pro-B Natriuret Pep 3260 H Triglycerides Cholesterol LDL Cholesterol Direct HDL Cholesterol TSH 3rd Generation 04/15/17 04/15/17 04/15/17 16:55 17:45 17:45 WBC RBC Hgb Hct MCV MCH MCHC RDW Plt Count MPV Neut % (Auto) Lymph % (Auto) Schleicher % (Auto) Eos % (Auto) Baso % (Auto) Neut # (Auto) Lymph # (Auto) Schleicher # (Auto) Eos # (Auto) Baso # (Auto) Neutrophils % (Manual) Lymphocytes % (Manual) Reactive Lymphs % Monocytes % (Manual) Eosinophils % (Manual) Platelet Estimate RBC Morphology PT 11.1 10.9 INR 1.0 1.0 APTT 28.8 Sodium Potassium Chloride Carbon Dioxide Anion Gap BUN Creatinine Est GFR ( Amer) Est GFR (Non-Af Amer) Random Glucose Calcium Troponin I NT-Pro-B Natriuret Pep Triglycerides Cholesterol LDL Cholesterol Direct HDL Cholesterol TSH 3rd Generation 04/16/17 04/16/17 04/16/17 01:12 01:12 04:55 WBC 15.0 H RBC 4.38 Hgb 13.7 Hct 41.8 MCV 95.4 MCH 31.3 H MCHC 32.8 L RDW 13.9 Plt Count 228 MPV 9.3 Neut % (Auto) 76.2 H Lymph % (Auto) 11.0 L Schleicher % (Auto) 11.4 H Eos % (Auto) 0.8 Baso % (Auto) 0.6 Neut # (Auto) 11.4 H Lymph # (Auto) 1.7 Schleicher # (Auto) 1.7 H Eos # (Auto) 0.1 Baso # (Auto) 0.1 Neutrophils % (Manual) Lymphocytes % (Manual) Reactive Lymphs % Monocytes % (Manual) Eosinophils % (Manual) Platelet Estimate RBC Morphology PT 11.5 INR 1.0 APTT 97.8 H D Sodium Potassium Chloride Carbon Dioxide Anion Gap BUN Creatinine Est GFR ( Amer) Est GFR (Non-Af Amer) Random Glucose Calcium Troponin I 3.0700 H* NT-Pro-B Natriuret Pep Triglycerides Cholesterol LDL Cholesterol Direct HDL Cholesterol TSH 3rd Generation 04/16/17 04/16/17 04:55 07:00 WBC RBC Hgb Hct MCV MCH MCHC RDW Plt Count MPV Neut % (Auto) Lymph % (Auto) Schleicher % (Auto) Eos % (Auto) Baso % (Auto) Neut # (Auto) Lymph # (Auto) Schleicher # (Auto) Eos # (Auto) Baso # (Auto) Neutrophils % (Manual) Lymphocytes % (Manual) Reactive Lymphs % Monocytes % (Manual) Eosinophils % (Manual) Platelet Estimate RBC Morphology PT INR APTT 41.9 H D Sodium 138 Potassium 4.3 Chloride 98 Carbon Dioxide 26 Anion Gap 18 BUN 20 H Creatinine 1.3 H Est GFR ( Amer) 48 Est GFR (Non-Af Amer) 39 Random Glucose 124 H Calcium 9.7 Troponin I NT-Pro-B Natriuret Pep Triglycerides 147 Cholesterol 185 LDL Cholesterol Direct 101 HDL Cholesterol 39 TSH 3rd Generation 4.36 EKG/Cardiology Studies: Cardiology / EKG Studies 04/16/17 09:00 EKG [ELECTROCARDIOGRAM] DAILY Comment: Mode Of Transportation: Reason For Exam: f/u AMI Isolation: Contact Review of Systems - Review of Systems All systems: reviewed and no additional remarkable complaints except (as above) Critical Care Progress Note - Nutrition Nutrition: Nutrition Category Date Time Status Heart Healthy Diet [DIET] Diets 04/15/17 Dinner Active
--- NOTE | 2017-04-16 11:12 | CARD ---
APPROVED REPORT EKG Measurement Heart [id number] <Conclusion> Normal sinus rhythm Moderate voltage criteria for LVH, may be normal variant T wave abnormality, consider lateral ischemia Abnormal ECG
[2017-04-16] MEDS: Azithromycin 500 MG in Sodium Chloride 0.9% 250 ML IVPB SCH (11:26)
--- NOTE | 2017-04-16 11:55 | CP.PCM.PN ---
Subjective - Date & Time of Evaluation Date of Evaluation: 04/16/17 Time of Evaluation: 11:00 - Subjective Subjective: Pt denies CP She had some left arm discomfort on admission Troponin elevated to 3 On Heparin drip no SOB no palpitations no diaphoresis no abd pain no fever denies cough no pedal edema Objective - Vital Signs/Intake and Output Vital Signs (last 24 hours): Temp Pulse Resp BP Pulse Ox 98.6 F 68 22 99/48 L 94 L 04/16/17 07:49 04/16/17 10:00 04/16/17 10:00 04/16/17 10:00 04/16/17 10:00 Intake and Output: 04/16/17 04/16/17 06:59 18:59 Intake Total 0 0 Balance 0 0 - Medications Medications: Current Medications Acetaminophen (Tylenol 325mg Tab) 650 mg PO Q6 PRN PRN Reason: Pain, moderate (4-7) Last Admin: 04/16/17 08:43 Dose: 650 mg Anastrozole (Arimidex 1 Mg Tab) 1 mg PO DAILY [facility] Last Admin: 04/16/17 08:23 Dose: 1 mg Ascorbic Acid (Vitamin C 500 Mg Tab) 500 mg PO DAILY [facility] Last Admin: 04/16/17 08:27 Dose: 500 mg Aspirin (Ecotrin) 81 mg PO DAILY [facility] Last Admin: 04/16/17 08:25 Dose: 81 mg Atorvastatin Calcium (Lipitor) 20 mg PO HS [facility] Last Admin: 04/15/17 22:41 Dose: 20 mg Calcium/Vitamin D (Oyster Shell Calcium/Vitamin D 500 Mg-200 Iu) 1 tab PO DAILY [facility] Last Admin: 04/16/17 08:27 Dose: 1 tab Cholecalciferol (Vitamin D) 1,000 intlu PO DAILY [facility] Last Admin: 04/16/17 08:27 Dose: 1,000 intlu Docusate Sodium (Colace) 100 mg PO BID PRN PRN Reason: Constipation Heparin Sodium/Dextrose (Heparin 25,000 Units/250ml In D5w) 25,000 units in 250 mls @ 8 mls/hr IV .Q24H YUVAL PRN Reason: Protocol Last Titration: 04/16/17 08:23 Dose: 7 mls/hr Ceftriaxone Sodium 1 gm/ (Sodium Chloride) 100 mls @ 100 mls/hr IVPB DAILY YUVAL PRN Reason: Protocol Last Admin: 04/16/17 11:25 Dose: 100 mls/hr Azithromycin 500 mg/ Sodium (Chloride) 250 mls @ 250 mls/hr IVPB DAILY [facility] PRN Reason: Protocol Last Admin: 04/16/17 11:26 Dose: 250 mls/hr Levothyroxine Sodium (Synthroid) 25 mcg PO DAILY@0630 [facility] Last Admin: 04/16/17 06:18 Dose: 25 mcg Losartan Potassium (Cozaar) 25 mg PO DAILY [facility] Last Admin: 04/16/17 08:24 Dose: 25 mg Metoprolol Tartrate (Lopressor) 50 mg PO Q12H [facility] Last Admin: 04/16/17 01:13 Dose: 50 mg Multivitamins/Minerals (Therapeutic-M Tab) 1 tab PO DAILY [facility] Last Admin: 04/16/17 08:27 Dose: 1 tab Nitroglycerin (Nitrostat Sl Tab) 0.4 mg SL Q5MIN PRN PRN Reason: chest pain Nitroglycerin (Nitro-Bid 2% Oint) 1 ea TOP QID [facility] Last Admin: 04/16/17 08:26 Dose: Not Given Spironolactone (Aldactone) 12.5 mg PO DAILY [facility] Last Admin: 04/16/17 08:22 Dose: 12.5 mg Vitamin E (Vitamin E 400 Units Cap) 400 intlu PO DAILY [facility] Last Admin: 04/16/17 08:27 Dose: 400 intlu - Labs Labs: 04/16/17 04:55 04/16/17 04:55 PT 11.5 Seconds (9.8-13.1) 04/16/17 01:12 INR 1.0 (0.9-1.2) 04/16/17 01:12 APTT 41.9 Seconds (25.6-37.1) H D 04/16/17 07:00 - Constitutional Appears: No Acute Distress - Head Exam Head Exam: NORMAL INSPECTION, NORMOCEPHALIC - Eye Exam Eye Exam: EOMI, Normal appearance Pupil Exam: NORMAL ACCOMODATION - ENT Exam ENT Exam: Mucous Membranes Moist, Normal External Ear Exam - Neck Exam Neck Exam: Full ROM. absent: Meningismus - Respiratory Exam Respiratory Exam: Rales, NORMAL BREATHING PATTERN. absent: Wheezes, Respiratory Distress - Cardiovascular Exam Cardiovascular Exam: REGULAR RHYTHM, +S1, +S2. absent: JVD - GI/Abdominal Exam GI & Abdominal Exam: Soft, Normal Bowel Sounds. absent: Tenderness - Extremities Exam Extremities Exam: Normal Capillary Refill. absent: Calf Tenderness, Pedal Edema - Back Exam Back Exam: absent: CVA tenderness (L), CVA tenderness (R) - Neurological Exam Neurological Exam: Alert, Awake, Oriented x3 Neuro motor strength exam: Left Upper Extremity: 4, Right Upper Extremity: 4, Left Lower Extremity: 4, Right Lower Extremity: 4 - Psychiatric Exam Psychiatric exam: Normal Affect, Normal Mood - Skin Skin Exam: Dry, Normal Color, Warm Assessment and Plan (1) NSTEMI (non-ST elevated myocardial infarction) Status: Acute (2) Systolic and diastolic CHF, acute on chronic Status: Acute (3) COPD (chronic obstructive pulmonary disease) Status: Chronic (4) Hypothyroidism Status: Chronic (5) Leukocytosis Status: Acute (6) DVT prophylaxis Status: Acute - Assessment and Plan (Free Text) Assessment: 81 y/o lady with hx of Cardiomyopathy s/p AICD, Arrythmia s/p Ablation, CAD, CVA, COPD, Hypothyroidism, HTN, Hyperlipidemia, came in bec of left arm discomfort and some SOB. CXR showed Pulm Vascular congestion. Troponin + up to 3.0. Pt was admitted to ICU and started on heparin drip. (1) NSTEMI (non-ST elevated myocardial infarction) Status: Acute cont Heparin drip loaded with Plavix cont ASA, Plavix, Statin, ARB and BB Cardio was consulted - await Dr Da Silva' recommendation, ? Cardiac cath (2) Systolic and diastolic CHF, acute on chronic Status: Acute CXR : PVC received IV Lasix, on Aldactone cont BB and ARB ECHO ' (3) COPD (chronic obstructive pulmonary disease), stable Status: Chronic Duoneb prn (4) Hypothyroidism Status: Chronic cont Levothyroxine (5) Leukocytosis Status: Acute ? significance increase in WBC, pt has no fever empirically started by Dr Gomez on IV Ceftriaxone and Azithro , in case pt is brewing a PNA, will d/c if wor kip neg Urinalysis Influenza negative 6. Acute Kidney Injury prob prerenal likely due to diuresis hold off on Aldactone and Losaratn if rpt shows increasing level. (6) DVT prophylaxis Status: Acute Pt on Heparin drip
[2017-04-16 12:46] LABS: HEMOGLOBIN 13.8 g/dL (12.0-16.0); MEAN CELL VOLUME 96.6 fl (81.0-99.0); MEAN CORPUSCULAR HEMOGLOBIN 31.6 pg (27.0-31.0); MEAN CORPUSCULAR HGB CONC 32.8 g/dL (33.0-37.0); RBC 4.37 Mil/uL (3.80-5.20); RED CELL DISTRIBUTION WIDTH 13.8 % (11.5-14.5); WHITE BLOOD COUNT 17.1 K/uL (4.8-10.8)
[2017-04-16 13:16] LABS: CALCIUM 9.6 mg/dL (8.4-10.2); TROPONIN I 2.77 ng/mL (0.00-0.120)
[2017-04-17] MEDS ORDERED: Heparin 25,000units in D5W 25,000 UNITS/250 ML BAG IV SCH ×2 (02:45→11:15)
[2017-04-17 06:09] LABS: HEMOGLOBIN 13.2 g/dL (12.0-16.0); MEAN CELL VOLUME 96.3 fl (81.0-99.0); MEAN CORPUSCULAR HGB CONC 33.2 g/dL (33.0-37.0); RBC 4.11 Mil/uL (3.80-5.20); RED CELL DISTRIBUTION WIDTH 14.2 % (11.5-14.5); WHITE BLOOD COUNT 13.7 K/uL (4.8-10.8)
[2017-04-17 06:21] LABS: CALCIUM 9.4 mg/dL (8.4-10.2)
[2017-04-17 06:24] LABS: SQUAMOUS EPITHIAL 1 /hpf (0-5); URINE BILIRUBIN NEGATIVE (NEGATIVE); URINE BLOOD NEGATIVE (NEGATIVE); URINE CLARITY SLIGHTY-CLOUDY (Clear); URINE COLOR YELLOW (YELLOW); URINE GLUCOSE (UA) NEG (Normal); URINE LEUKOCYTE ESTERASE NEG Leu/uL (Negative); URINE NITRATE NEGATIVE (NEGATIVE); URINE PROTEIN NEGATIVE (NEGATIVE); URINE UROBILINOGEN 0.2-1.0 mg/dL (0.2-1.0)
[2017-04-17] MEDS: Levothyroxine 25 MCG TAB PO SCH (07:00)
--- NOTE | 2017-04-17 07:24 | CP.PCM.PN ---
Subjective - Date & Time of Evaluation Date of Evaluation: 04/17/17 Time of Evaluation: 08:30 - Subjective Subjective: Patient was seen and examined bedside. feeling well. Denies any chest pain ., SOB, arm pain , palpitations. Complains of dry mouth and some dry cough.Hemodynamically stable, afebrile. No acute issues overnight Trop trending down. For cardiac cath on wednesday Objective - Vital Signs/Intake and Output Vital Signs (last 24 hours): Temp Pulse Resp BP Pulse Ox 97.6 F 69 18 120/68 96 04/17/17 04:00 04/17/17 06:00 04/17/17 06:00 04/17/17 06:00 04/17/17 06:00 - Medications Medications: Current Medications Acetaminophen (Tylenol 325mg Tab) 650 mg PO Q6 PRN PRN Reason: Pain, moderate (4-7) Last Admin: 04/16/17 08:43 Dose: 650 mg Anastrozole (Arimidex 1 Mg Tab) 1 mg PO DAILY [facility] Last Admin: 04/16/17 08:23 Dose: 1 mg Ascorbic Acid (Vitamin C 500 Mg Tab) 500 mg PO DAILY [facility] Last Admin: 04/16/17 08:27 Dose: 500 mg Aspirin (Ecotrin) 81 mg PO DAILY [facility] Last Admin: 04/16/17 08:25 Dose: 81 mg Atorvastatin Calcium (Lipitor) 20 mg PO HS [facility] Last Admin: 04/16/17 22:37 Dose: 20 mg Calcium/Vitamin D (Oyster Shell Calcium/Vitamin D 500 Mg-200 Iu) 1 tab PO DAILY [facility] Last Admin: 04/16/17 08:27 Dose: 1 tab Cholecalciferol (Vitamin D) 1,000 intlu PO DAILY [facility] Last Admin: 04/16/17 08:27 Dose: 1,000 intlu Docusate Sodium (Colace) 100 mg PO BID PRN PRN Reason: Constipation Ceftriaxone Sodium 1 gm/ (Sodium Chloride) 100 mls @ 100 mls/hr IVPB DAILY [facility] PRN Reason: Protocol Last Admin: 04/16/17 11:25 Dose: 100 mls/hr Azithromycin 500 mg/ Sodium (Chloride) 250 mls @ 250 mls/hr IVPB DAILY [facility] PRN Reason: Protocol Last Admin: 04/16/17 11:26 Dose: 250 mls/hr Heparin Sodium/Dextrose (Heparin 25,000 Units/250ml In D5w) 25,000 units in 250 mls @ 7 mls/hr IV .Q24H [facility] PRN Reason: Protocol Last Admin: 04/17/17 03:05 Dose: 7 mls/hr Levothyroxine Sodium (Synthroid) 25 mcg PO DAILY@0630 [facility] Last Admin: 04/16/17 06:18 Dose: 25 mcg Losartan Potassium (Cozaar) 25 mg PO DAILY [facility] Last Admin: 04/16/17 08:24 Dose: 25 mg Metoprolol Succinate (Toprol Xl) 50 mg PO DAILY [facility] Multivitamins/Minerals (Therapeutic-M Tab) 1 tab PO DAILY [facility] Last Admin: 04/16/17 08:27 Dose: 1 tab Nitroglycerin (Nitrostat Sl Tab) 0.4 mg SL Q5MIN PRN PRN Reason: chest pain Nitroglycerin (Nitro-Bid 2% Oint) 1 ea TOP QID [facility] Last Admin: 04/16/17 22:37 Dose: 1 ea Vitamin E (Vitamin E 400 Units Cap) 400 intlu PO DAILY [facility] Last Admin: 04/16/17 08:27 Dose: 400 intlu - Labs Labs: 04/17/17 05:25 04/17/17 05:25 PT 11.5 Seconds (9.8-13.1) 04/16/17 01:12 INR 1.0 (0.9-1.2) 04/16/17 01:12 APTT 85.6 Seconds (25.6-37.1) H D 04/17/17 05:25 - Constitutional Appears: Non-toxic, No Acute Distress - Head Exam Head Exam: ATRAUMATIC, NORMAL INSPECTION, NORMOCEPHALIC - Eye Exam Eye Exam: EOMI, Normal appearance, PERRL Pupil Exam: NORMAL ACCOMODATION - ENT Exam ENT Exam: Mucous Membranes Moist, Normal Exam - Neck Exam Neck Exam: Full ROM, Normal Inspection - Respiratory Exam Respiratory Exam: Clear to Ausculation Bilateral, NORMAL BREATHING PATTERN. absent: Rales, Rhonchi, Wheezes, Respiratory Distress - Cardiovascular Exam Cardiovascular Exam: REGULAR RHYTHM, RRR, +S1, +S2. absent: JVD - GI/Abdominal Exam GI & Abdominal Exam: Soft, Normal Bowel Sounds. absent: Distended, Guarding, Rebound - Rectal Exam Rectal Exam: Deferred - Extremities Exam Extremities Exam: Full ROM, Normal Capillary Refill, Normal Inspection. absent : Calf Tenderness, Pedal Edema - Back Exam Back Exam: NORMAL INSPECTION - Neurological Exam Neurological Exam: Alert, Awake, CN II-XII Intact, Oriented x3 - Psychiatric Exam Psychiatric exam: Normal Affect, Normal Mood - Skin Skin Exam: Dry, Normal Color, Warm Assessment and Plan - Assessment and Plan (Free Text) Assessment: 81 y/o lady with hx of Cardiomyopathy s/p AICD, Arrythmia s/p Ablation, CAD, CVA, COPD, Hypothyroidism, HTN, Hyperlipidemia, came in bec of left arm discomfort and some SOB. CXR showed Pulm Vascular congestion. Troponin were positive ,up to 3.0. Patient was admitted to ICU and started on heparin drip.Cardiology and pulmonary consulted. At present she is stable, troponin trending down to 2.7. Plan for cardiac cath on Wednesday 1.NSTEMI (non-ST elevated myocardial infarction) Acute Chesty pain free and troponin trending down to 2.7 cardiology on consult , folowiing continue Heparin drip, metoprolol ASA, Statin, plavix and ARB plan for cardiac cath on wednesday 2. Systolic and diastolic CHF, acute on chronic CXR showed vascular congestion on admission received IV Lasix,was on Aldactone cont BB and ARB f/u ECHO 3. COPD (chronic obstructive pulmonary disease), stable Chronic Duoneb prn 4.Hypothyroidism Chronic cont Levothyroxine 5. Leukocytosis WBC unclear etiology Trending down from 17 K -- 13 K with dry cough increase in WBC, pt has no fever empirically started by Dr Gomez on IV Ceftriaxone and Azithro Urinalysis- clear Influenza negative 6. Acute Kidney Injury prob prerenal likely due to diuresis hold off on Aldactone BUN/Cr 32/1.6 Repeat BMP in AM 7. DVT prophylaxis on Heparin drip
--- NOTE | 2017-04-17 08:36 | CP.PCM.PN ---
<AllanSukh Doris - Last Filed: 04/17/17 10:36> Subjective - Date & Time of Evaluation Date of Evaluation: 04/17/17 Time of Evaluation: 08:35 - Subjective Subjective: Cardiology progress note for Dr. Da Silva Patient seen and examined at bedside. She states she is doing well and denies any complaints at this time. Per nursing, patient had mild back pain overnight. Otherwise, patient is doing well. Objective - Vital Signs/Intake and Output Vital Signs (last 24 hours): Temp Pulse Resp BP Pulse Ox 97.6 F 69 18 120/68 96 04/17/17 04:00 04/17/17 06:00 04/17/17 06:00 04/17/17 06:00 04/17/17 06:00 - Medications Medications: Current Medications Acetaminophen (Tylenol 325mg Tab) 650 mg PO Q6 PRN PRN Reason: Pain, moderate (4-7) Last Admin: 04/16/17 08:43 Dose: 650 mg Anastrozole (Arimidex 1 Mg Tab) 1 mg PO DAILY [facility] Last Admin: 04/16/17 08:23 Dose: 1 mg Ascorbic Acid (Vitamin C 500 Mg Tab) 500 mg PO DAILY [facility] Last Admin: 04/16/17 08:27 Dose: 500 mg Aspirin (Ecotrin) 81 mg PO DAILY [facility] Last Admin: 04/16/17 08:25 Dose: 81 mg Atorvastatin Calcium (Lipitor) 20 mg PO HS [facility] Last Admin: 04/16/17 22:37 Dose: 20 mg Calcium/Vitamin D (Oyster Shell Calcium/Vitamin D 500 Mg-200 Iu) 1 tab PO DAILY [facility] Last Admin: 04/16/17 08:27 Dose: 1 tab Cholecalciferol (Vitamin D) 1,000 intlu PO DAILY [facility] Last Admin: 04/16/17 08:27 Dose: 1,000 intlu Docusate Sodium (Colace) 100 mg PO BID PRN PRN Reason: Constipation Ceftriaxone Sodium 1 gm/ (Sodium Chloride) 100 mls @ 100 mls/hr IVPB DAILY [facility] PRN Reason: Protocol Last Admin: 04/16/17 11:25 Dose: 100 mls/hr Azithromycin 500 mg/ Sodium (Chloride) 250 mls @ 250 mls/hr IVPB DAILY [facility] PRN Reason: Protocol Last Admin: 04/16/17 11:26 Dose: 250 mls/hr Heparin Sodium/Dextrose (Heparin 25,000 Units/250ml In D5w) 25,000 units in 250 mls @ 7 mls/hr IV .Q24H [facility] PRN Reason: Protocol Last Admin: 04/17/17 03:05 Dose: 7 mls/hr Levothyroxine Sodium (Synthroid) 25 mcg PO DAILY@0630 [facility] Last Admin: 04/17/17 07:00 Dose: 25 mcg Losartan Potassium (Cozaar) 25 mg PO DAILY [facility] Last Admin: 04/16/17 08:24 Dose: 25 mg Metoprolol Succinate (Toprol Xl) 50 mg PO DAILY [facility] Multivitamins/Minerals (Therapeutic-M Tab) 1 tab PO DAILY [facility] Last Admin: 04/16/17 08:27 Dose: 1 tab Nitroglycerin (Nitrostat Sl Tab) 0.4 mg SL Q5MIN PRN PRN Reason: chest pain Nitroglycerin (Nitro-Bid 2% Oint) 1 ea TOP QID [facility] Last Admin: 04/16/17 22:37 Dose: 1 ea Vitamin E (Vitamin E 400 Units Cap) 400 intlu PO DAILY [facility] Last Admin: 04/16/17 08:27 Dose: 400 intlu - Labs Labs: 04/17/17 05:25 04/17/17 05:25 PT 11.5 Seconds (9.8-13.1) 04/16/17 01:12 INR 1.0 (0.9-1.2) 04/16/17 01:12 APTT 85.6 Seconds (25.6-37.1) H D 04/17/17 05:25 - Additional Findings Additional findings: Physical Exam: Vital Signs as below Const'l: awake alert & oriented x 4, no acute distress Head/Neck: neck supple, no jvd, trachea midline, carotid midline, no cervical/head mass Eyes: pupils equally reactive to light and accommodation, nonicteric sclera, extraocular intact ENT: auditory acuity grossly intact, throat not congested, no nasal deformity Cardio: regular rate, regular rhythm, no murmurs rubs gallops, no carotid bruit, normal s1, s2 Pulm: +Nasal Cannula 2L; no accessory muscle use, equal normal breath sounds bilaterally, clear to ausculation bilaterally Abd: soft non tender non-distended, normal bowel sounds x 4 quadrants, no palpable masses Derm: no rashes, no ulcers, no lesions Extr: no edema, no cyanosis, no calf tenderness, no lesions, no varicosities Neuro: cranial nerves II-XII grossly intact, upper extremity and lower extremity 5/5 muscle strength bilaterally, no loss of sensation in upper extremities, lower extremities bilaterally and core Assessment and Plan - Assessment and Plan (Free Text) Assessment: 81 year old female with past medical history significant for CAD, hypertension, Dilated Cardiomyopathy with AICD, previous CVA, COPD, OA and history of left breast cancer presented with shortness of breath and left arm pain. Patient denied chest discomfort. Patient was found to have elevated troponins up to 3.070 with NSR on EKG. Chest Xray showed new vascular congestion. ECHO from showed EF of 15-25%. Patient is on appropriate heart failure medication at home, Aldactone, Nitrate, Losartan, Atorvastatin, and aspirin - but should be on metoprolol succinate instead of tartrate. Patient is currently on appropriate therapy for NSTEMI as well, including heparin drip NSTEMI - Troponins elevated up to 3.07, EKG normal - Aspirin, Atorvastatin, Aldactone, Nitrate, Losartan, Heparin drip; Metoprolol tartrate changed to Metoprolol Succinate. - Added Amiodarone 200 - Patient needs a cardiac cath, set up for Wednesday at 1:00PM Coronary artery disease - Treatment as above - ASCVD score not applicable due to age and current history Hypertension - Losartan, Metoprolol - Monitor Dilated Cardiomyopathy - Patient has AICD - GDMT as above Previous CVA - Per primary team COPD history - Per primary team Osteoarthritis - Per primary team Breast Cancer - Per primary team Dispo: Patient is set up for a catheterization on Wednesday at 1:00PM <Bernard Da Silva - Last Filed: 04/19/17 08:19> Objective - Vital Signs/Intake and Output Vital Signs (last 24 hours): Temp Pulse Resp BP Pulse Ox 99.8 F H 81 16 115/89 93 L 04/19/17 04:00 04/19/17 06:00 04/19/17 06:00 04/19/17 06:00 04/19/17 06:00 Intake and Output: 04/19/17 04/19/17 06:59 18:59 Intake Total 0 Balance 0 - Medications Medications: Current Medications Acetaminophen (Tylenol 325mg Tab) 650 mg PO Q6 PRN PRN Reason: Pain, moderate (4-7) Last Admin: 04/18/17 00:53 Dose: 650 mg Amiodarone HCl (Cordarone) 200 mg PO DAILY [facility] Last Admin: 04/18/17 09:19 Dose: 200 mg Anastrozole (Arimidex 1 Mg Tab) 1 mg PO DAILY [facility] Last Admin: 04/18/17 09:24 Dose: 1 mg Ascorbic Acid (Vitamin C 500 Mg Tab) 500 mg PO DAILY [facility] Last Admin: 04/18/17 09:14 Dose: 500 mg Aspirin (Ecotrin) 81 mg PO DAILY [facility] Last Admin: 04/18/17 09:18 Dose: 81 mg Atorvastatin Calcium (Lipitor) 20 mg PO HS [facility] Last Admin: 04/18/17 22:47 Dose: 20 mg Benzocaine/Menthol (Cepacol Sore Throat) 1 saumya PO Q3 PRN PRN Reason: Sore Throat Last Admin: 04/18/17 03:00 Dose: 1 saumya Calcium/Vitamin D (Oyster Shell Calcium/Vitamin D 500 Mg-200 Iu) 1 tab PO DAILY [facility] Last Admin: 04/18/17 09:14 Dose: 1 tab Cholecalciferol (Vitamin D) 1,000 intlu PO DAILY [facility] Last Admin: 04/18/17 09:14 Dose: 1,000 intlu Docusate Sodium (Colace) 100 mg PO BID PRN PRN Reason: Constipation Ceftriaxone Sodium 1 gm/ (Sodium Chloride) 100 mls @ 100 mls/hr IVPB DAILY [facility] PRN Reason: Protocol Last Admin: 04/18/17 08:53 Dose: 100 mls/hr Azithromycin 500 mg/ Sodium (Chloride) 250 mls @ 250 mls/hr IVPB DAILY [facility] PRN Reason: Protocol Last Admin: 04/18/17 09:12 Dose: 250 mls/hr Levothyroxine Sodium (Synthroid) 25 mcg PO DAILY@0630 [facility] Last Admin: 04/19/17 07:06 Dose: Not Given Losartan Potassium (Cozaar) 25 mg PO DAILY [facility] Last Admin: 04/18/17 09:12 Dose: 25 mg Metoprolol Succinate (Toprol Xl) 50 mg PO DAILY [facility] Last Admin: 04/18/17 09:15 Dose: 50 mg Multivitamins/Minerals (Therapeutic-M Tab) 1 tab PO DAILY [facility] Last Admin: 04/18/17 09:18 Dose: 1 tab Nitroglycerin (Nitrostat Sl Tab) 0.4 mg SL Q5MIN PRN PRN Reason: chest pain Nitroglycerin (Nitro-Bid 2% Oint) 1 ea TOP QID [facility] Last Admin: 04/18/17 22:47 Dose: 1 ea Vitamin E (Vitamin E 400 Units Cap) 400 intlu PO DAILY [facility] Last Admin: 04/18/17 09:12 Dose: 400 intlu - Labs Labs: 04/19/17 02:15 04/19/17 02:15 PT 11.2 Seconds (9.8-13.1) 04/17/17 17:10 INR 1.0 (0.9-1.2) 04/17/17 17:10 APTT 97.6 Seconds (25.6-37.1) H D 04/19/17 02:15 Assessment and Plan (1) Chest pain Status: Acute (2) Dyspnea Status: Acute (3) Fatigue Status: Acute (4) NSTEMI (non-ST elevated myocardial infarction) Status: Acute (5) CHF (congestive heart failure) Status: Chronic (6) HLD (hyperlipidemia) Status: Chronic (7) HTN (hypertension) Status: Chronic Attending/Attestation - Attestation I have personally seen and examined this patient.: Yes I have fully participated in the care of the patient.: Yes I have reviewed all pertinent clinical information, including history, physical exam and plan: Yes
[2017-04-17] MEDS: Multivitamin With Minerals Tab PO SCH (08:46)
[2017-04-17] MEDS: Calcium-Vit D 500 mg-200 Units Tab UD PO SCH (08:48)
[2017-04-17] MEDS: Metoprolol Succinate 50 mg XL Tab PO SCH (08:48)
[2017-04-17] MEDS: Cholecalciferol 1,000 INTLU TAB PO SCH (08:51)
[2017-04-17] MEDS ORDERED: Heparin25000 units/250ml 1/2NS 25,000 UNITS/250 ML BAG IV ONE (09:08)
[2017-04-17] MEDS: Azithromycin 500 MG in Sodium Chloride 0.9% 250 ML IVPB SCH (10:05)
[2017-04-17] MEDS: Nitroglycerin 2% Ointment Foilpak UD TOP SCH ×4 (10:08→21:45)
--- NOTE | 2017-04-17 12:35 | CP.PCM.PN ---
Subjective - Date & Time of Evaluation Date of Evaluation: 04/17/17 Time of Evaluation: 12:31 - Subjective Subjective: Seen on rounds in the intensive care unit. Offers no complaints of chest pain or arm pain this morning. Claims she feels fatigued and mildly dyspneic with exertion. There is occasional nonproductive cough noted. Her vital signs remained stable and her oxygenation is satisfactory. There has been no febrile pattern since admission. Troponins have begun to decrease. Lying in bed semi-recumbent in no distress. No dependent edema or cyanosis. Neck is supple and trachea is midline. No visible neck veins distention or carotid bruit. No dullness on percussion of the anterior thorax. Breath sounds are present bilaterally. No rales or wheezes. No bronchial breathing or egophony is noted. Heart sounds are well heard and the rhythm is regular. Apical systolic murmur is unchanged. Acute non-STEMI. No evidence of congestive cardiac failure. Current nonproductive cough may be secondary to posterior rhinorrhea. Scheduled for cardiac catheterization Wednesday. Continue all current medical therapy. Objective - Vital Signs/Intake and Output Vital Signs (last 24 hours): Temp Pulse Resp BP Pulse Ox 99.4 F 84 18 114/61 98 04/17/17 12:00 04/17/17 12:00 04/17/17 12:00 04/17/17 12:00 04/17/17 12:00 Intake and Output: 04/17/17 04/17/17 11:59 23:59 Intake Total 250 334 Output Total 350 Balance 250 -16 - Medications Medications: Current Medications Acetaminophen (Tylenol 325mg Tab) 650 mg PO Q6 PRN PRN Reason: Pain, moderate (4-7) Last Admin: 04/16/17 08:43 Dose: 650 mg Amiodarone HCl (Cordarone) 200 mg PO DAILY [facility] Last Admin: 04/17/17 09:08 Dose: 200 mg Anastrozole (Arimidex 1 Mg Tab) 1 mg PO DAILY [facility] Last Admin: 04/17/17 08:59 Dose: 1 mg Ascorbic Acid (Vitamin C 500 Mg Tab) 500 mg PO DAILY [facility] Last Admin: 04/17/17 08:48 Dose: 500 mg Aspirin (Ecotrin) 81 mg PO DAILY [facility] Last Admin: 04/17/17 08:48 Dose: 81 mg Atorvastatin Calcium (Lipitor) 20 mg PO HS [facility] Last Admin: 04/16/17 22:37 Dose: 20 mg Calcium/Vitamin D (Oyster Shell Calcium/Vitamin D 500 Mg-200 Iu) 1 tab PO DAILY [facility] Last Admin: 04/17/17 08:48 Dose: 1 tab Cholecalciferol (Vitamin D) 1,000 intlu PO DAILY [facility] Last Admin: 04/17/17 08:51 Dose: 1,000 intlu Docusate Sodium (Colace) 100 mg PO BID PRN PRN Reason: Constipation Ceftriaxone Sodium 1 gm/ (Sodium Chloride) 100 mls @ 100 mls/hr IVPB DAILY [facility] PRN Reason: Protocol Last Admin: 04/17/17 08:47 Dose: 100 mls/hr Azithromycin 500 mg/ Sodium (Chloride) 250 mls @ 250 mls/hr IVPB DAILY [facility] PRN Reason: Protocol Last Admin: 04/17/17 10:05 Dose: 250 mls/hr Heparin Sodium/Dextrose (Heparin 25,000 Units/250ml In D5w) 25,000 units in 250 mls @ 6 mls/hr IV .Q24H [facility] PRN Reason: Protocol Last Admin: 04/17/17 11:15 Dose: 6 mls/hr Levothyroxine Sodium (Synthroid) 25 mcg PO DAILY@0630 [facility] Last Admin: 04/17/17 07:00 Dose: 25 mcg Losartan Potassium (Cozaar) 25 mg PO DAILY [facility] Last Admin: 04/17/17 08:51 Dose: 25 mg Metoprolol Succinate (Toprol Xl) 50 mg PO DAILY [facility] Last Admin: 04/17/17 08:48 Dose: 50 mg Multivitamins/Minerals (Therapeutic-M Tab) 1 tab PO DAILY [facility] Last Admin: 04/17/17 08:46 Dose: 1 tab Nitroglycerin (Nitrostat Sl Tab) 0.4 mg SL Q5MIN PRN PRN Reason: chest pain Nitroglycerin (Nitro-Bid 2% Oint) 1 ea TOP QID [facility] Last Admin: 04/17/17 10:08 Dose: 1 ea Vitamin E (Vitamin E 400 Units Cap) 400 intlu PO DAILY [facility] Last Admin: 04/17/17 08:51 Dose: 400 intlu - Labs Labs: 04/17/17 05:25 04/17/17 05:25 PT 11.5 Seconds (9.8-13.1) 04/16/17 01:12 INR 1.0 (0.9-1.2) 04/16/17 01:12 APTT 72.4 Seconds (25.6-37.1) H D 04/17/17 09:05 Assessment and Plan (1) Low cardiac output syndrome Status: Chronic (2) Cardiomyopathy Status: Chronic (3) CAD (coronary artery disease) Status: Chronic (4) COPD (chronic obstructive pulmonary disease) Status: Chronic (5) Hypothyroidism Status: Chronic
--- NOTE | 2017-04-17 15:19 | CP.CCUPN ---
CCU Subjective - Physician Review Events Since Last Encounter (Free Text): 04/17/17 15:18 no chest pain, no complaints. CCU Objective - Vital Signs / Intake & Output Vital Signs (Last 4 hours): Vital Signs Temp Pulse Resp BP Pulse Ox 04/17/17 12:00 99.4 F 84 18 114/61 98 Intake and Output (Last 8hrs): Intake & Output 04/17/17 04/17/17 04/17/17 06:59 14:59 22:59 Intake Total 584 Output Total 350 Balance 234 Weight 155 lb Intake: IV 284 Intake, Piggyback 300 Output: Urine 350 Urine, Voided 350 - Physical Exam Head: Positive for: Normocephalic Pupils: Positive for: PERRL Extroacular Muscles: Positive for: EOMI Conjunctiva: Positive for: Normal Mouth: Positive for: Moist Mucous Membranes Pharnyx: Positive for: Normal Neck: Negative for: JVD, Lymphadenopathy Respiratory/Chest: Positive for: Clear to Auscultation, Rales (basilar bilateral rales) Cardiovascular: Positive for: Regular Rate and Rhythm, Murmurs. Negative for: Rub Abdomen: Positive for: Normal Bowel Sounds, Mass/Organomegaly. Negative for: Tenderness, Distention Lower Extremity: Positive for: Normal Inspection, NORMAL PULSES. Negative for: Edema, CALF TENDERNESS, Cyanosis Neurological: Positive for: GCS=15, Motor Func Grossly Intact, Normal Sensory Function Skin: Positive for: Warm, Dry. Negative for: Rashes Psychiatric: Positive for: Alert, Oriented x 3 - Medications Active Medications: Active Medications Generic Name Dose Route Start Last Admin Trade Name Freq PRN Reason Stop Dose Admin Acetaminophen 650 mg 04/16/17 08:26 04/16/17 08:43 Tylenol 325mg Tab PO 650 mg Q6 PRN Administration Pain, moderate (4-7) Amiodarone HCl 200 mg 04/17/17 09:00 04/17/17 09:08 Cordarone PO 200 mg DAILY YUVAL Administration Anastrozole 1 mg 04/15/17 12:15 04/17/17 08:59 Arimidex 1 Mg Tab PO 1 mg DAILY YUVAL Administration Ascorbic Acid 500 mg 04/15/17 13:15 04/17/17 08:48 Vitamin C 500 Mg Tab PO 500 mg DAILY YUVAL Administration Aspirin 81 mg 04/15/17 12:15 04/17/17 08:48 Ecotrin PO 81 mg DAILY YUVAL Administration Atorvastatin Calcium 20 mg 04/15/17 22:00 04/16/17 22:37 Lipitor PO 20 mg HS YUVAL Administration Calcium/Vitamin D 1 tab 04/15/17 13:15 04/17/17 08:48 Oyster Shell Calcium/Vitamin D 500 Mg-200 Iu PO 1 tab DAILY YUVAL Administration Cholecalciferol 1,000 intlu 04/15/17 12:15 04/17/17 08:51 Vitamin D PO 1,000 intlu DAILY YUVAL Administration Docusate Sodium 100 mg 04/15/17 11:50 Colace PO BID PRN Constipation Ceftriaxone Sodium 1 gm/ 100 mls @ 100 mls/hr 04/16/17 09:15 04/17/17 08:47 Sodium Chloride IVPB 100 mls/hr DAILY YUVAL Administration Protocol Azithromycin 500 mg/ Sodium 250 mls @ 250 mls/hr 04/16/17 09:15 04/17/17 10: 05 Chloride IVPB 250 mls/hr DAILY YUVAL Administration Protocol Heparin Sodium/Dextrose 25,000 units in 250 mls @ 6 mls/hr 04/17/17 11:15 05/30 11:15 Heparin 25,000 Units/250ml In D5w IV 6 mls/hr .Q24H YUVAL Administration Protocol Levothyroxine Sodium 25 mcg 04/16/17 06:30 04/17/17 07:00 Synthroid PO 25 mcg DAILY@0630 YUVAL Administration Losartan Potassium 25 mg 04/15/17 12:15 04/17/17 08:51 Cozaar PO 25 mg DAILY YUVAL Administration Metoprolol Succinate 50 mg 04/17/17 09:00 04/17/17 08:48 Toprol Xl PO 50 mg DAILY YUVAL Administration Multivitamins/Minerals 1 tab 04/15/17 13:15 04/17/17 08:46 Therapeutic-M Tab PO 1 tab DAILY YUVAL Administration Nitroglycerin 0.4 mg 04/15/17 12:01 Nitrostat Sl Tab SL Q5MIN PRN chest pain Nitroglycerin 1 ea 04/15/17 22:00 04/17/17 10:08 Nitro-Bid 2% Oint TOP 1 ea QID [facility]UVAL Administration Vitamin E 400 intlu 04/15/17 12:15 04/17/17 08:51 Vitamin E 400 Units Cap PO 400 intlu DAILY [facility]UVAL Administration - Patient Studies Lab Studies: Microbiology Studies 04/15/17 09:02 MRSA Culture (Admit) - Final Naris MRSA NOT DETECTED Lab Studies 04/17/17 04/17/17 04/17/17 Range/Units 09:05 05:25 05:25 WBC (4.8-10.8) K/uL RBC (3.80-5.20) Mil/uL Hgb (12.0-16.0) g/dL Hct (34.0-47.0) % MCV (81.0-99.0) fl MCH (27.0-31.0) pg MCHC (33.0-37.0) g/dL RDW (11.5-14.5) % Plt Count (130-400) K/uL APTT 72.4 H D (25.6-37.1) Seconds Sodium 138 (132-148) mmol/l Potassium 4.6 (3.6-5.0) MMOL/L Chloride 99 (98-107) mmol/L Carbon Dioxide 27 (22-30) mmol/L Anion Gap 17 (10-20) BUN 32 H (7-17) mg/dl Creatinine 1.6 H (0.7-1.2) mg/dl Est GFR ( Amer) 38 Est GFR (Non-Af Amer) 31 Random Glucose 117 H (65-105) mg/dL Calcium 9.4 (8.4-10.2) mg/dL NT-Pro-B Natriuret Pep 1050 H (0-900) pg/ml Urine Color Yellow (YELLOW) Urine Clarity Slighty-cloudy (Clear) Urine pH 5.0 (5.0-8.0) Ur Specific Kirvin 1.011 (1.003-1.030) Urine Protein Negative (NEGATIVE) mg/dL Urine Glucose (UA) Neg (Normal) mg/dL Urine Ketones Negative (NEGATIVE) mg/dL Urine Blood Negative (NEGATIVE) Urine Nitrate Negative (NEGATIVE) Urine Bilirubin Negative (NEGATIVE) Urine Urobilinogen 0.2-1.0 (0.2-1.0) mg/dL Ur Leukocyte Esterase Neg (Negative) Kj/uL Urine RBC (Auto) 1 (0-3) /hpf Urine Microscopic WBC 4 (0-5) /hpf Ur Squamous Epith Cells 1 (0-5) /hpf 04/17/17 04/17/17 04/17/17 Range/Units 05:25 05:25 01:55 WBC 13.7 H (4.8-10.8) K/uL RBC 4.11 (3.80-5.20) Mil/uL Hgb 13.2 (12.0-16.0) g/dL Hct 39.6 (34.0-47.0) % MCV 96.3 (81.0-99.0) fl MCH 32.0 H (27.0-31.0) pg MCHC 33.2 (33.0-37.0) g/dL RDW 14.2 (11.5-14.5) % Plt Count 220 (130-400) K/uL APTT 85.6 H D 37.1 D (25.6-37.1) Seconds Sodium (132-148) mmol/l Potassium (3.6-5.0) MMOL/L Chloride (98-107) mmol/L Carbon Dioxide (22-30) mmol/L Anion Gap (10-20) BUN (7-17) mg/dl Creatinine (0.7-1.2) mg/dl Est GFR ( Amer) Est GFR (Non-Af Amer) Random Glucose (65-105) mg/dL Calcium (8.4-10.2) mg/dL NT-Pro-B Natriuret Pep (0-900) pg/ml Urine Color (YELLOW) Urine Clarity (Clear) Urine pH (5.0-8.0) Ur Specific Kirvin (1.003-1.030) Urine Protein (NEGATIVE) mg/dL Urine Glucose (UA) (Normal) mg/dL Urine Ketones (NEGATIVE) mg/dL Urine Blood (NEGATIVE) Urine Nitrate (NEGATIVE) Urine Bilirubin (NEGATIVE) Urine Urobilinogen (0.2-1.0) mg/dL Ur Leukocyte Esterase (Negative) Kj/uL Urine RBC (Auto) (0-3) /hpf Urine Microscopic WBC (0-5) /hpf Ur Squamous Epith Cells (0-5) /hpf 04/16/17 Range/Units 19:00 WBC (4.8-10.8) K/uL RBC (3.80-5.20) Mil/uL Hgb (12.0-16.0) g/dL Hct (34.0-47.0) % MCV (81.0-99.0) fl MCH (27.0-31.0) pg MCHC (33.0-37.0) g/dL RDW (11.5-14.5) % Plt Count (130-400) K/uL APTT 49.9 H D (25.6-37.1) Seconds Sodium (132-148) mmol/l Potassium (3.6-5.0) MMOL/L Chloride (98-107) mmol/L Carbon Dioxide (22-30) mmol/L Anion Gap (10-20) BUN (7-17) mg/dl Creatinine (0.7-1.2) mg/dl Est GFR ( Amer) Est GFR (Non-Af Amer) Random Glucose (65-105) mg/dL Calcium (8.4-10.2) mg/dL NT-Pro-B Natriuret Pep (0-900) pg/ml Urine Color (YELLOW) Urine Clarity (Clear) Urine pH (5.0-8.0) Ur Specific Kirvin (1.003-1.030) Urine Protein (NEGATIVE) mg/dL Urine Glucose (UA) (Normal) mg/dL Urine Ketones (NEGATIVE) mg/dL Urine Blood (NEGATIVE) Urine Nitrate (NEGATIVE) Urine Bilirubin (NEGATIVE) Urine Urobilinogen (0.2-1.0) mg/dL Ur Leukocyte Esterase (Negative) Kj/uL Urine RBC (Auto) (0-3) /hpf Urine Microscopic WBC (0-5) /hpf Ur Squamous Epith Cells (0-5) /hpf Laboratory Results - last 24 hr 04/16/17 04/17/17 04/17/17 19:00 01:55 05:25 WBC 13.7 H RBC 4.11 Hgb 13.2 Hct 39.6 MCV 96.3 MCH 32.0 H MCHC 33.2 RDW 14.2 Plt Count 220 APTT 49.9 H D 37.1 D Sodium Potassium Chloride Carbon Dioxide Anion Gap BUN Creatinine Est GFR ( Amer) Est GFR (Non-Af Amer) Random Glucose Calcium NT-Pro-B Natriuret Pep Urine Color Urine Clarity Urine pH Ur Specific Kirvin Urine Protein Urine Glucose (UA) Urine Ketones Urine Blood Urine Nitrate Urine Bilirubin Urine Urobilinogen Ur Leukocyte Esterase Urine RBC (Auto) Urine Microscopic WBC Ur Squamous Epith Cells 04/17/17 04/17/17 04/17/17 05:25 05:25 05:25 WBC RBC Hgb Hct MCV MCH MCHC RDW Plt Count APTT 85.6 H D Sodium 138 Potassium 4.6 Chloride 99 Carbon Dioxide 27 Anion Gap 17 BUN 32 H Creatinine 1.6 H Est GFR ( Amer) 38 Est GFR (Non-Af Amer) 31 Random Glucose 117 H Calcium 9.4 NT-Pro-B Natriuret Pep 1050 H Urine Color Yellow Urine Clarity Slighty-cloudy Urine pH 5.0 Ur Specific Kirvin 1.011 Urine Protein Negative Urine Glucose (UA) Neg Urine Ketones Negative Urine Blood Negative Urine Nitrate Negative Urine Bilirubin Negative Urine Urobilinogen 0.2-1.0 Ur Leukocyte Esterase Neg Urine RBC (Auto) 1 Urine Microscopic WBC 4 Ur Squamous Epith Cells 1 04/17/17 09:05 WBC RBC Hgb Hct MCV MCH MCHC RDW Plt Count APTT 72.4 H D Sodium Potassium Chloride Carbon Dioxide Anion Gap BUN Creatinine Est GFR ( Amer) Est GFR (Non-Af Amer) Random Glucose Calcium NT-Pro-B Natriuret Pep Urine Color Urine Clarity Urine pH Ur Specific Kirvin Urine Protein Urine Glucose (UA) Urine Ketones Urine Blood Urine Nitrate Urine Bilirubin Urine Urobilinogen Ur Leukocyte Esterase Urine RBC (Auto) Urine Microscopic WBC Ur Squamous Epith Cells Review of Systems - Review of Systems All systems: reviewed and no additional remarkable complaints except (nothing) Critical Care Progress Note - Nutrition Nutrition: Nutrition Category Date Time Status Heart Healthy Diet [DIET] Diets 04/15/17 Dinner Active Assessment/Plan (1) NSTEMI (non-ST elevated myocardial infarction) Assessment and plan: 81yo F. PMHx CAD with multiple TX's, AICD-PPM, breast CA hx s/p mastectomy, hypothyroidism, hyperlipidemia, HTN. p/w NSTEMI, awaiting cath. ACS with NSTEMI on heparin gtt, cath wednesday. Mild decompensated Cardiomyopathy with L- CHF, severe MR and DD dysfx as last reported on ECHO Nov 2016. CKD III Critical Care time 35 minutes Multi-disciplinary rounds were performed with house staff, nursing, speech therapy, respiratory therapy, pharmacy and nutrition with integrated input from the primary team/attending and other consulting services. The documented time is cumulative and includes review of patient data/exams/labs/chart review and examination of the patient on rounds and throughout the day; time is exclusive of any procedures or teaching polly Current Visit: No Status: Acute Priority: High
[2017-04-17 18:06] LABS: PARTIAL THROMBOPLASTIN TIME 45.7 Seconds (25.6-37.1); PROTHROMBIN TIME 11.2 Seconds (9.8-13.1)
[2017-04-17] MEDS: Benzocaine/Menthol (Cepacol) Lozenge PO PRN (19:04)
[2017-04-18] MEDS ORDERED: Heparin 25,000units in D5W 25,000 UNITS/250 ML BAG IV SCH (02:15)
[2017-04-18] MEDS: Benzocaine/Menthol (Cepacol) Lozenge PO PRN (03:00)
[2017-04-18] MEDS: Levothyroxine 25 MCG TAB PO SCH (05:52)
[2017-04-18 06:31] LABS: MEAN CELL VOLUME 96.8 fl (81.0-99.0); MEAN CORPUSCULAR HEMOGLOBIN 31.5 pg (27.0-31.0); MEAN CORPUSCULAR HGB CONC 32.5 g/dL (33.0-37.0); RBC 3.81 Mil/uL (3.80-5.20); RED CELL DISTRIBUTION WIDTH 13.9 % (11.5-14.5); WHITE BLOOD COUNT 11.2 K/uL (4.8-10.8)
[2017-04-18 06:36] LABS: CALCIUM 9.3 mg/dL (8.4-10.2)
[2017-04-18 06:50] LABS: TROPONIN I 0.697 ng/mL (0.00-0.120)
--- NOTE | 2017-04-18 07:40 | CP.PCM.PN ---
Subjective - Date & Time of Evaluation Date of Evaluation: 04/18/17 Time of Evaluation: 08:45 - Subjective Subjective: Patient was seen and examined bedside. Feeling tired. No acute issues overnight. Denies any chest pain or SOB. on Heparin drip troponin trending down to 0.69 Objective - Vital Signs/Intake and Output Vital Signs (last 24 hours): Temp Pulse Resp BP Pulse Ox 98.8 F 74 15 129/64 97 04/18/17 04:00 04/18/17 06:00 04/18/17 06:00 04/18/17 06:00 04/18/17 06:00 - Medications Medications: Current Medications Acetaminophen (Tylenol 325mg Tab) 650 mg PO Q6 PRN PRN Reason: Pain, moderate (4-7) Last Admin: 04/18/17 00:53 Dose: 650 mg Amiodarone HCl (Cordarone) 200 mg PO DAILY [facility] Last Admin: 04/17/17 09:08 Dose: 200 mg Anastrozole (Arimidex 1 Mg Tab) 1 mg PO DAILY [facility] Last Admin: 04/17/17 08:59 Dose: 1 mg Ascorbic Acid (Vitamin C 500 Mg Tab) 500 mg PO DAILY [facility] Last Admin: 04/17/17 08:48 Dose: 500 mg Aspirin (Ecotrin) 81 mg PO DAILY [facility] Last Admin: 04/17/17 08:48 Dose: 81 mg Atorvastatin Calcium (Lipitor) 20 mg PO HS [facility] Last Admin: 04/17/17 21:44 Dose: 20 mg Benzocaine/Menthol (Cepacol Sore Throat) 1 saumya PO Q3 PRN PRN Reason: Sore Throat Last Admin: 04/18/17 03:00 Dose: 1 saumya Calcium/Vitamin D (Oyster Shell Calcium/Vitamin D 500 Mg-200 Iu) 1 tab PO DAILY [facility] Last Admin: 04/17/17 08:48 Dose: 1 tab Cholecalciferol (Vitamin D) 1,000 intlu PO DAILY [facility] Last Admin: 04/17/17 08:51 Dose: 1,000 intlu Docusate Sodium (Colace) 100 mg PO BID PRN PRN Reason: Constipation Ceftriaxone Sodium 1 gm/ (Sodium Chloride) 100 mls @ 100 mls/hr IVPB DAILY [facility] PRN Reason: Protocol Last Admin: 04/17/17 08:47 Dose: 100 mls/hr Azithromycin 500 mg/ Sodium (Chloride) 250 mls @ 250 mls/hr IVPB DAILY YUVAL PRN Reason: Protocol Last Admin: 04/17/17 10:05 Dose: 250 mls/hr Heparin Sodium/Dextrose (Heparin 25,000 Units/250ml In D5w) 25,000 units in 250 mls @ 6 mls/hr IV .Q24H YUVAL PRN Reason: Protocol Last Titration: 04/17/17 18:35 Dose: 7 mls/hr Heparin Sodium/Dextrose (Heparin 25,000 Units/250ml In D5w) 25,000 units in 250 mls @ 6 mls/hr IV .Q24H YUVAL PRN Reason: Protocol Last Admin: 04/18/17 02:15 Dose: 6 mls/hr Levothyroxine Sodium (Synthroid) 25 mcg PO DAILY@0630 [facility] Last Admin: 04/18/17 05:52 Dose: 25 mcg Losartan Potassium (Cozaar) 25 mg PO DAILY [facility] Last Admin: 04/17/17 08:51 Dose: 25 mg Metoprolol Succinate (Toprol Xl) 50 mg PO DAILY [facility] Last Admin: 04/17/17 08:48 Dose: 50 mg Multivitamins/Minerals (Therapeutic-M Tab) 1 tab PO DAILY [facility] Last Admin: 04/17/17 08:46 Dose: 1 tab Nitroglycerin (Nitrostat Sl Tab) 0.4 mg SL Q5MIN PRN PRN Reason: chest pain Nitroglycerin (Nitro-Bid 2% Oint) 1 ea TOP QID [facility] Last Admin: 04/17/17 21:45 Dose: 1 ea Vitamin E (Vitamin E 400 Units Cap) 400 intlu PO DAILY [facility] Last Admin: 04/17/17 08:51 Dose: 400 intlu - Labs Labs: 04/18/17 05:59 04/18/17 05:59 PT 11.2 Seconds (9.8-13.1) 04/17/17 17:10 INR 1.0 (0.9-1.2) 04/17/17 17:10 APTT 66.8 Seconds (25.6-37.1) H D 04/18/17 01:44 - Constitutional Appears: Non-toxic, No Acute Distress - Head Exam Head Exam: ATRAUMATIC, NORMAL INSPECTION, NORMOCEPHALIC - Eye Exam Eye Exam: EOMI, Normal appearance, PERRL Pupil Exam: NORMAL ACCOMODATION - ENT Exam ENT Exam: Mucous Membranes Moist Additional comments: lower lip dry scab - Neck Exam Neck Exam: Full ROM, Normal Inspection - Respiratory Exam Respiratory Exam: Clear to Ausculation Bilateral, NORMAL BREATHING PATTERN. absent: Rales, Rhonchi, Wheezes - Cardiovascular Exam Cardiovascular Exam: REGULAR RHYTHM, RRR, +S1, +S2. absent: JVD - GI/Abdominal Exam GI & Abdominal Exam: Soft, Normal Bowel Sounds. absent: Distended, Guarding, Tenderness, Rebound - Rectal Exam Rectal Exam: Deferred - Extremities Exam Extremities Exam: Full ROM, Normal Capillary Refill, Normal Inspection. absent : Pedal Edema - Back Exam Back Exam: NORMAL INSPECTION - Neurological Exam Neurological Exam: Alert, Awake, CN II-XII Intact, Oriented x3 - Psychiatric Exam Psychiatric exam: Flat Affect - Skin Skin Exam: Dry, Intact, Normal Color, Warm Assessment and Plan - Assessment and Plan (Free Text) Assessment: 81 y/o lady with hx of Cardiomyopathy s/p AICD, Arrythmia s/p Ablation, CAD, CVA, COPD, Hypothyroidism, HTN, Hyperlipidemia, came in bec of left arm discomfort and some SOB. CXR showed Pulm Vascular congestion. Troponin were positive ,up to 3.0. Patient was admitted to ICU and started on heparin drip.Cardiology and pulmonary consulted. At present she is stable, troponin trending down to 0.69. Plan for cardiac cath in AM 1.NSTEMI (non-ST elevated myocardial infarction) Acute Chest pain free and troponin trending down to 0.69 cardiology on consult , following continue Heparin drip, metoprolol ASA, Statin, plavix and ARB plan for cardiac cath in AM 2. Systolic and diastolic CHF, acute on chronic CXR showed vascular congestion on admission received IV Lasix,was on Aldactone cont BB and ARB f/u ECHO 3. COPD (chronic obstructive pulmonary disease), stable Chronic Duoneb prn 4.Hypothyroidism Chronic cont Levothyroxine 5. Leukocytosis WBC unclear etiology Trending down from 17 K -- 11 K with dry cough increase in WBC, pt has no fever empirically started by Dr Gomez on IV Ceftriaxone and Azithro Urinalysis- clear Influenza negative 6. Acute Kidney Injury prob prerenal likely due to diuresis hold off on Aldactone improving Cr 1.3 from 1.6 Repeat BMP in AM 7. DVT prophylaxis on Heparin drip
[2017-04-18] MEDS: Azithromycin 500 MG in Sodium Chloride 0.9% 250 ML IVPB SCH (09:12)
[2017-04-18] MEDS: Cholecalciferol 1,000 INTLU TAB PO SCH (09:14)
[2017-04-18] MEDS: Calcium-Vit D 500 mg-200 Units Tab UD PO SCH (09:14)
[2017-04-18] MEDS: Metoprolol Succinate 50 mg XL Tab PO SCH (09:15)
[2017-04-18] MEDS: Multivitamin With Minerals Tab PO SCH (09:18)
[2017-04-18] MEDS: Nitroglycerin 2% Ointment Foilpak UD TOP SCH ×4 (09:24→22:47)
--- NOTE | 2017-04-18 13:34 | CP.CCUPN ---
CCU Subjective - Physician Review Events Since Last Encounter (Free Text): 04/18/17 13:34 no complaints, no chest pain. CCU Objective - Vital Signs / Intake & Output Vital Signs (Last 4 hours): Vital Signs Temp Pulse Resp BP Pulse Ox 04/18/17 13:01 76 133/59 L 04/18/17 12:00 99.4 F 73 30 H 133/59 L 96 04/18/17 10:00 85 22 109/66 100 Intake and Output (Last 8hrs): Intake & Output 04/17/17 04/18/17 04/18/17 22:59 06:59 14:59 Intake Total 54 Balance 54 Intake: IV 54 - Physical Exam Head: Positive for: Normocephalic Pupils: Positive for: PERRL Extroacular Muscles: Positive for: EOMI Conjunctiva: Positive for: Normal Mouth: Positive for: Moist Mucous Membranes Pharnyx: Positive for: Normal Neck: Negative for: JVD, Lymphadenopathy Respiratory/Chest: Positive for: Clear to Auscultation, Rales (basilar bilateral rales) Cardiovascular: Positive for: Regular Rate and Rhythm, Murmurs. Negative for: Rub Abdomen: Positive for: Normal Bowel Sounds, Mass/Organomegaly. Negative for: Tenderness, Distention Lower Extremity: Positive for: Normal Inspection, NORMAL PULSES. Negative for: Edema, CALF TENDERNESS, Cyanosis Neurological: Positive for: GCS=15, Motor Func Grossly Intact, Normal Sensory Function Skin: Positive for: Warm, Dry. Negative for: Rashes Psychiatric: Positive for: Alert, Oriented x 3 - Medications Active Medications: Active Medications Generic Name Dose Route Start Last Admin Trade Name Reeceq PRN Reason Stop Dose Admin Acetaminophen 650 mg 04/16/17 08:26 04/18/17 00:53 Tylenol 325mg Tab PO 650 mg Q6 PRN Administration Pain, moderate (4-7) Amiodarone HCl 200 mg 04/17/17 09:00 04/18/17 09:19 Cordarone PO 200 mg DAILY YUVAL Administration Anastrozole 1 mg 04/15/17 12:15 04/18/17 09:24 Arimidex 1 Mg Tab PO 1 mg DAILY [facility]UVAL Administration Ascorbic Acid 500 mg 04/15/17 13:15 04/18/17 09:14 Vitamin C 500 Mg Tab PO 500 mg DAILY [facility] Administration Aspirin 81 mg 04/15/17 12:15 04/18/17 09:18 Ecotrin PO 81 mg DAILY [facility] Administration Atorvastatin Calcium 20 mg 04/15/17 22:00 04/17/17 21:44 Lipitor PO 20 mg HS YUVAL Administration Benzocaine/Menthol 1 saumya 04/17/17 16:09 04/18/17 03:00 Cepacol Sore Throat PO 1 saumya Q3 PRN Administration Sore Throat Calcium/Vitamin D 1 tab 04/15/17 13:15 04/18/17 09:14 Oyster Shell Calcium/Vitamin D 500 Mg-200 Iu PO 1 tab DAILY [facility]UVAL Administration Cholecalciferol 1,000 intlu 04/15/17 12:15 04/18/17 09:14 Vitamin D PO 1,000 intlu DAILY [facility]UVAL Administration Docusate Sodium 100 mg 04/15/17 11:50 Colace PO BID PRN Constipation Ceftriaxone Sodium 1 gm/ 100 mls @ 100 mls/hr 04/16/17 09:15 04/18/17 08:53 Sodium Chloride IVPB 100 mls/hr DAILY [facility] Administration Protocol Azithromycin 500 mg/ Sodium 250 mls @ 250 mls/hr 04/16/17 09:15 04/18/17 09: 12 Chloride IVPB 250 mls/hr DAILY [facility] Administration Protocol Heparin Sodium/Dextrose 25,000 units in 250 mls @ 6 mls/hr 04/17/17 11:15 05/30 18:35 Heparin 25,000 Units/250ml In D5w IV 7 mls/hr .Q24H [facility] Titration Protocol Heparin Sodium/Dextrose 25,000 units in 250 mls @ 6 mls/hr 04/18/17 02:15 06/30 02:15 Heparin 25,000 Units/250ml In D5w IV 6 mls/hr .Q24H [facility] Administration Protocol Levothyroxine Sodium 25 mcg 04/16/17 06:30 04/18/17 05:52 Synthroid PO 25 mcg DAILY@0630 [facility] Administration Losartan Potassium 25 mg 04/15/17 12:15 04/18/17 09:12 Cozaar PO 25 mg DAILY [facility] Administration Metoprolol Succinate 50 mg 04/17/17 09:00 04/18/17 09:15 Toprol Xl PO 50 mg DAILY [facility] Administration Multivitamins/Minerals 1 tab 04/15/17 13:15 04/18/17 09:18 Therapeutic-M Tab PO 1 tab DAILY [facility] Administration Nitroglycerin 0.4 mg 04/15/17 12:01 Nitrostat Sl Tab SL Q5MIN PRN chest pain Nitroglycerin 1 ea 04/15/17 22:00 04/18/17 13:01 Nitro-Bid 2% Oint TOP 1 ea QID [facility] Administration Vitamin E 400 intlu 04/15/17 12:15 04/18/17 09:12 Vitamin E 400 Units Cap PO 400 intlu DAILY [facility] Administration - Patient Studies Lab Studies: Microbiology Studies 04/15/17 09:02 MRSA Culture (Admit) - Final Naris MRSA NOT DETECTED Lab Studies 04/18/17 04/18/17 04/18/17 Range/Units 11:33 05:59 05:59 WBC 11.2 H (4.8-10.8) K/uL RBC 3.81 (3.80-5.20) Mil/uL Hgb 12.0 (12.0-16.0) g/dL Hct 36.9 (34.0-47.0) % MCV 96.8 (81.0-99.0) fl MCH 31.5 H (27.0-31.0) pg MCHC 32.5 L (33.0-37.0) g/dL RDW 13.9 (11.5-14.5) % Plt Count 182 (130-400) K/uL PT (9.8-13.1) Seconds INR (0.9-1.2) APTT 64.4 H (25.6-37.1) Seconds Sodium 139 (132-148) mmol/l Potassium 4.6 (3.6-5.0) MMOL/L Chloride 104 (98-107) mmol/L Carbon Dioxide 25 (22-30) mmol/L Anion Gap 15 (10-20) BUN 27 H (7-17) mg/dl Creatinine 1.3 H (0.7-1.2) mg/dl Est GFR ( Amer) 48 Est GFR (Non-Af Amer) 39 Random Glucose 110 H (65-105) mg/dL Calcium 9.3 (8.4-10.2) mg/dL Troponin I 0.6970 H* (0.00-0.120) ng/mL 04/18/17 04/17/17 Range/Units 01:44 17:10 WBC (4.8-10.8) K/uL RBC (3.80-5.20) Mil/uL Hgb (12.0-16.0) g/dL Hct (34.0-47.0) % MCV (81.0-99.0) fl MCH (27.0-31.0) pg MCHC (33.0-37.0) g/dL RDW (11.5-14.5) % Plt Count (130-400) K/uL PT 11.2 (9.8-13.1) Seconds INR 1.0 (0.9-1.2) APTT 66.8 H D 45.7 H D (25.6-37.1) Seconds Sodium (132-148) mmol/l Potassium (3.6-5.0) MMOL/L Chloride (98-107) mmol/L Carbon Dioxide (22-30) mmol/L Anion Gap (10-20) BUN (7-17) mg/dl Creatinine (0.7-1.2) mg/dl Est GFR ( Amer) Est GFR (Non-Af Amer) Random Glucose (65-105) mg/dL Calcium (8.4-10.2) mg/dL Troponin I (0.00-0.120) ng/mL Laboratory Results - last 24 hr 04/17/17 04/18/17 04/18/17 17:10 01:44 05:59 WBC 11.2 H RBC 3.81 Hgb 12.0 Hct 36.9 MCV 96.8 MCH 31.5 H MCHC 32.5 L RDW 13.9 Plt Count 182 PT 11.2 INR 1.0 APTT 45.7 H D 66.8 H D Sodium Potassium Chloride Carbon Dioxide Anion Gap BUN Creatinine Est GFR ( Amer) Est GFR (Non-Af Amer) Random Glucose Calcium Troponin I 04/18/17 04/18/17 05:59 11:33 WBC RBC Hgb Hct MCV MCH MCHC RDW Plt Count PT INR APTT 64.4 H Sodium 139 Potassium 4.6 Chloride 104 Carbon Dioxide 25 Anion Gap 15 BUN 27 H Creatinine 1.3 H Est GFR ( Amer) 48 Est GFR (Non-Af Amer) 39 Random Glucose 110 H Calcium 9.3 Troponin I 0.6970 H* Review of Systems - Review of Systems All systems: reviewed and no additional remarkable complaints except - Cardiovascular Cardiovascular: absent: Chest Pain (nothing) Critical Care Progress Note - Nutrition Nutrition: Nutrition Category Date Time Status Heart Healthy Diet [DIET] Diets 04/15/17 Dinner Active Assessment/Plan (1) NSTEMI (non-ST elevated myocardial infarction) Assessment and plan: 81yo F. PMHx CAD with multiple ID's, AICD-PPM, breast CA hx s/p mastectomy, hypothyroidism, hyperlipidemia, HTN. p/w NSTEMI, awaiting cath. ACS with NSTEMI on heparin gtt, cath wednesday. Mild decompensated Cardiomyopathy with L- CHF, severe MR and DD dysfx as last reported on ECHO Nov 2016. CKD III Critical Care time 35 minutes Multi-disciplinary rounds were performed with house staff, nursing, speech therapy, respiratory therapy, pharmacy and nutrition with integrated input from the primary team/attending and other consulting services. The documented time is cumulative and includes review of patient data/exams/labs/chart review and examination of the patient on rounds and throughout the day; time is exclusive of any procedures or teaching polly Current Visit: No Status: Acute Priority: High
[2017-04-19 02:18] LABS: HEMOGLOBIN 11.9 g/dL (12.0-16.0); MEAN CORPUSCULAR HEMOGLOBIN 31.3 pg (27.0-31.0); MEAN CORPUSCULAR HGB CONC 32.6 g/dL (33.0-37.0); RBC 3.82 Mil/uL (3.80-5.20); WHITE BLOOD COUNT 9.6 K/uL (4.8-10.8)
[2017-04-19 02:28] LABS: CALCIUM 9.1 mg/dL (8.4-10.2)
--- NOTE | 2017-04-19 06:34 | CP.PCM.PN ---
<AllanSukh - Last Filed: 04/19/17 16:45> Subjective - Date & Time of Evaluation Date of Evaluation: 04/19/17 Time of Evaluation: 06:35 - Subjective Subjective: Cardiology progress note for Dr. Da Silva Patient seen and examined at bedside, patient is doing well, but feels fatigued. At this time, she is aware of her cardiac catheterization and offers no complaints. She states she does not want to have radial access as a result of numbness last time. Objective - Vital Signs/Intake and Output Vital Signs (last 24 hours): Temp Pulse Resp BP Pulse Ox 99.8 F H 77 24 129/45 L 98 04/19/17 04:00 04/19/17 04:00 04/19/17 04:00 04/19/17 04:00 04/19/17 04:00 Intake and Output: 04/18/17 04/19/17 18:59 06:59 Intake Total 350 0 Output Total 600 Balance -250 0 - Medications Medications: Current Medications Acetaminophen (Tylenol 325mg Tab) 650 mg PO Q6 PRN PRN Reason: Pain, moderate (4-7) Last Admin: 04/18/17 00:53 Dose: 650 mg Amiodarone HCl (Cordarone) 200 mg PO DAILY [facility] Last Admin: 04/18/17 09:19 Dose: 200 mg Anastrozole (Arimidex 1 Mg Tab) 1 mg PO DAILY [facility] Last Admin: 04/18/17 09:24 Dose: 1 mg Ascorbic Acid (Vitamin C 500 Mg Tab) 500 mg PO DAILY [facility] Last Admin: 04/18/17 09:14 Dose: 500 mg Aspirin (Ecotrin) 81 mg PO DAILY [facility] Last Admin: 04/18/17 09:18 Dose: 81 mg Atorvastatin Calcium (Lipitor) 20 mg PO HS [facility] Last Admin: 04/18/17 22:47 Dose: 20 mg Benzocaine/Menthol (Cepacol Sore Throat) 1 saumya PO Q3 PRN PRN Reason: Sore Throat Last Admin: 04/18/17 03:00 Dose: 1 saumya Calcium/Vitamin D (Oyster Shell Calcium/Vitamin D 500 Mg-200 Iu) 1 tab PO DAILY [facility] Last Admin: 04/18/17 09:14 Dose: 1 tab Cholecalciferol (Vitamin D) 1,000 intlu PO DAILY [facility] Last Admin: 04/18/17 09:14 Dose: 1,000 intlu Docusate Sodium (Colace) 100 mg PO BID PRN PRN Reason: Constipation Ceftriaxone Sodium 1 gm/ (Sodium Chloride) 100 mls @ 100 mls/hr IVPB DAILY [facility] PRN Reason: Protocol Last Admin: 04/18/17 08:53 Dose: 100 mls/hr Azithromycin 500 mg/ Sodium (Chloride) 250 mls @ 250 mls/hr IVPB DAILY [facility] PRN Reason: Protocol Last Admin: 04/18/17 09:12 Dose: 250 mls/hr Levothyroxine Sodium (Synthroid) 25 mcg PO DAILY@0630 [facility] Last Admin: 04/18/17 05:52 Dose: 25 mcg Losartan Potassium (Cozaar) 25 mg PO DAILY [facility] Last Admin: 04/18/17 09:12 Dose: 25 mg Metoprolol Succinate (Toprol Xl) 50 mg PO DAILY [facility] Last Admin: 04/18/17 09:15 Dose: 50 mg Multivitamins/Minerals (Therapeutic-M Tab) 1 tab PO DAILY [facility] Last Admin: 04/18/17 09:18 Dose: 1 tab Nitroglycerin (Nitrostat Sl Tab) 0.4 mg SL Q5MIN PRN PRN Reason: chest pain Nitroglycerin (Nitro-Bid 2% Oint) 1 ea TOP QID [facility] Last Admin: 04/18/17 22:47 Dose: 1 ea Vitamin E (Vitamin E 400 Units Cap) 400 intlu PO DAILY [facility] Last Admin: 04/18/17 09:12 Dose: 400 intlu - Labs Labs: 04/19/17 02:15 04/19/17 02:15 PT 11.2 Seconds (9.8-13.1) 04/17/17 17:10 INR 1.0 (0.9-1.2) 04/17/17 17:10 APTT 97.6 Seconds (25.6-37.1) H D 04/19/17 02:15 - Additional Findings Additional findings: Physical Exam: Vital Signs as below Const'l: awake alert & oriented x 4, no acute distress Head/Neck: neck supple, no jvd, trachea midline, carotid midline, no cervical/head mass Eyes: pupils equally reactive to light and accommodation, nonicteric sclera, extraocular intact ENT: auditory acuity grossly intact, throat not congested, no nasal deformity Cardio: regular rate, regular rhythm, no murmurs rubs gallops, no carotid bruit, normal s1, s2 Pulm: +Nasal Cannula 2L; no accessory muscle use, equal normal breath sounds bilaterally, clear to ausculation bilaterally Abd: soft non tender non-distended, normal bowel sounds x 4 quadrants, no palpable masses Derm: no rashes, no ulcers, no lesions Extr: no edema, no cyanosis, no calf tenderness, no lesions, no varicosities Neuro: cranial nerves II-XII grossly intact, upper extremity and lower extremity 5/5 muscle strength bilaterally, no loss of sensation in upper extremities, lower extremities bilaterally and core Assessment and Plan - Assessment and Plan (Free Text) Assessment: 81 year old female with past medical history significant for CAD, hypertension, Dilated Cardiomyopathy with AICD, previous CVA, COPD, OA and history of left breast cancer presented with shortness of breath and left arm pain. Patient denied chest discomfort. Patient was found to have elevated troponins up to 3.070 with NSR on EKG. Chest Xray showed new vascular congestion. ECHO from showed EF of 15-25%. Patient is on appropriate heart failure medication at home, Aldactone, Nitrate, Losartan, Atorvastatin, and aspirin - changed from metoprolol tartrate to metoprolol succinate here. Patient is currently on appropriate therapy for NSTEMI as well, including heparin drip NSTEMI - Troponins elevated up to 3.07, trending down, last at .6970, EKG normal - Aspirin, Atorvastatin, Aldactone, Nitrate, Losartan, Heparin drip; Metoprolol tartrate changed to Metoprolol Succinate. - Added Amiodarone 200 - Patient cath results are as follow: Patient has highly elevated right sided pressures and pulmonary hypertension with a cardiac output of ~2%. Patient will need milrinone initiation. Coronary artery disease - Treatment as above Hypertension - Losartan, Metoprolol - Monitor Dilated Cardiomyopathy - Patient has AICD - GDMT as above Previous CVA - Per primary team COPD history - Per primary team Osteoarthritis - Per primary team Breast Cancer - Per primary team Dispo: Cardiac catheterization results as above. Please see operative report for full details. <Bernard Da Silva - Last Filed: 04/19/17 17:20> Objective - Vital Signs/Intake and Output Vital Signs (last 24 hours): Temp Pulse Resp BP Pulse Ox 97.9 F 86 19 138/77 89 L 04/19/17 16:00 04/19/17 16:21 04/19/17 16:00 04/19/17 16:21 04/19/17 16:00 Intake and Output: 04/19/17 04/19/17 06:59 18:59 Intake Total 0 Balance 0 - Medications Medications: Current Medications Acetaminophen (Tylenol 325mg Tab) 650 mg PO Q6 PRN PRN Reason: Pain, moderate (4-7) Last Admin: 04/18/17 00:53 Dose: 650 mg Amiodarone HCl (Cordarone) 200 mg PO DAILY [facility] Last Admin: 04/19/17 16:21 Dose: 200 mg Anastrozole (Arimidex 1 Mg Tab) 1 mg PO DAILY [facility] Last Admin: 04/19/17 16:20 Dose: 1 mg Ascorbic Acid (Vitamin C 500 Mg Tab) 500 mg PO DAILY [facility] Last Admin: 04/19/17 16:24 Dose: 500 mg Aspirin (Ecotrin) 81 mg PO DAILY [facility] Last Admin: 04/19/17 16:22 Dose: 81 mg Atorvastatin Calcium (Lipitor) 20 mg PO HS [facility] Last Admin: 04/18/17 22:47 Dose: 20 mg Benzocaine/Menthol (Cepacol Sore Throat) 1 saumya PO Q3 PRN PRN Reason: Sore Throat Last Admin: 04/19/17 16:21 Dose: 1 saumya Calcium/Vitamin D (Oyster Shell Calcium/Vitamin D 500 Mg-200 Iu) 1 tab PO DAILY [facility] Last Admin: 04/19/17 16:22 Dose: 1 tab Cholecalciferol (Vitamin D) 1,000 intlu PO DAILY [facility] Last Admin: 04/19/17 16:24 Dose: 1,000 intlu Docusate Sodium (Colace) 100 mg PO BID PRN PRN Reason: Constipation Ceftriaxone Sodium 1 gm/ (Sodium Chloride) 100 mls @ 100 mls/hr IVPB DAILY [facility] PRN Reason: Protocol Last Admin: 04/19/17 16:22 Dose: 100 mls/hr Azithromycin 500 mg/ Sodium (Chloride) 250 mls @ 250 mls/hr IVPB DAILY [facility] PRN Reason: Protocol Last Admin: 04/19/17 16:25 Dose: 250 mls/hr Nitroglycerin/Dextrose (Nitroglycerin 50 Mg/250 Ml D5w) 50 mg in 250 mls @ 1.5 mls/hr IV .Q24H ONE; 5 MCG/MIN PRN Reason: Protocol Stop: 04/20/17 15:08 Last Admin: 04/19/17 15:26 Dose: 1.5 mls/hr Levothyroxine Sodium (Synthroid) 25 mcg PO DAILY@0630 [facility] Last Admin: 04/19/17 07:06 Dose: Not Given Losartan Potassium (Cozaar) 25 mg PO DAILY [facility] Last Admin: 04/19/17 16:21 Dose: 25 mg Metoprolol Succinate (Toprol Xl) 50 mg PO DAILY [facility] Last Admin: 04/18/17 09:15 Dose: 50 mg Multivitamins/Minerals (Therapeutic-M Tab) 1 tab PO DAILY [facility] Last Admin: 04/19/17 16:24 Dose: 1 tab Nitroglycerin (Nitrostat Sl Tab) 0.4 mg SL Q5MIN PRN PRN Reason: chest pain Nitroglycerin (Nitro-Bid 2% Oint) 1 ea TOP QID [facility] Last Admin: 04/19/17 16:22 Dose: Not Given Vitamin E (Vitamin E 400 Units Cap) 400 intlu PO DAILY [facility] Last Admin: 04/19/17 16:25 Dose: 400 intlu - Labs Labs: 04/19/17 02:15 04/19/17 02:15 PT 11.2 Seconds (9.8-13.1) 04/17/17 17:10 INR 1.0 (0.9-1.2) 04/17/17 17:10 APTT 97.6 Seconds (25.6-37.1) H D 04/19/17 02:15 Assessment and Plan (1) Chest pain Status: Acute (2) Dyspnea Status: Acute (3) Fatigue Status: Acute (4) NSTEMI (non-ST elevated myocardial infarction) Status: Acute (5) CHF (congestive heart failure) Status: Chronic (6) HLD (hyperlipidemia) Status: Chronic (7) HTN (hypertension) Status: Chronic Attending/Attestation - Attestation I have personally seen and examined this patient.: Yes I have fully participated in the care of the patient.: Yes I have reviewed all pertinent clinical information, including history, physical exam and plan: Yes Notes (Text): 04/19/17 17:19 LHCx - non-obstructive RHCx hemodynamics RA 15 PCWP 30 PAP 80/40 with mean of 50 CO 2.7 Plan - IV lasix at 5mg/hr - IV milrinone 0.25 mcg/kg/min
[2017-04-19] MEDS: Levothyroxine 25 MCG TAB PO SCH (07:06)
--- NOTE | 2017-04-19 07:22 | CP.CCUPN ---
CCU Subjective - Physician Review Events Since Last Encounter (Free Text): 04/19/17 The patient was Seen/interviewed and examined by me at the bedside during ICU round, Medical records reviewed and Management issues were discussed and formulated with the house staff. Events reviewed 81 Years old Female PMHx HTN, hyperlipidemia, CAD with multiple IL's, AICD-PPM, breast CA hx s/p mastectomy, hypothyroidism, HTN. Admitted with NSTEMI (non-ST elevated myocardial infarction) This morning he feels well and is hemodynamically stable, denies any chest pain or SOB and the plan is to transfer to [facility] [place] for cardiac cath today Pt AAO x3. Alert, follows commands Denies any chest pain, SOB or Palpitations Afebrile, NSR on the monitor Last 24H I&O 638/350 04/19/17 15:24 CCU Objective - Vital Signs / Intake & Output Vital Signs (Last 4 hours): Vital Signs Temp Pulse Resp BP Pulse Ox 04/19/17 06:00 81 16 115/89 93 L 04/19/17 04:00 99.8 F H 77 24 129/45 L 98 Intake and Output (Last 8hrs): Intake & Output 04/18/17 04/19/17 04/19/17 22:59 06:59 14:59 Intake Total 350 0 Output Total 300 Balance 50 0 Intake: IV 0 0 Intake, Piggyback 350 Output: Urine 300 Urine, Voided 300 Other: # Voids Urine, Voided 1 - Physical Exam Head: Positive for: Normocephalic Pupils: Positive for: PERRL Extroacular Muscles: Positive for: EOMI Conjunctiva: Positive for: Normal Mouth: Positive for: Moist Mucous Membranes Pharnyx: Positive for: Normal Neck: Negative for: JVD, Lymphadenopathy Respiratory/Chest: Positive for: Clear to Auscultation, Rales (basilar bilateral rales) Cardiovascular: Positive for: Regular Rate and Rhythm, Murmurs. Negative for: Rub Abdomen: Positive for: Normal Bowel Sounds, Mass/Organomegaly. Negative for: Tenderness, Distention Lower Extremity: Positive for: Normal Inspection, NORMAL PULSES. Negative for: Edema, CALF TENDERNESS, Cyanosis Neurological: Positive for: GCS=15, Motor Func Grossly Intact, Normal Sensory Function Skin: Positive for: Warm, Dry. Negative for: Rashes Psychiatric: Positive for: Alert, Oriented x 3 - Medications Active Medications: Active Medications Generic Name Dose Route Start Last Admin Trade Name Freq PRN Reason Stop Dose Admin Acetaminophen 650 mg 04/16/17 08:26 04/18/17 00:53 Tylenol 325mg Tab PO 650 mg Q6 PRN Administration Pain, moderate (4-7) Amiodarone HCl 200 mg 04/17/17 09:00 04/18/17 09:19 Cordarone PO 200 mg DAILY [facility] Administration Anastrozole 1 mg 04/15/17 12:15 04/18/17 09:24 Arimidex 1 Mg Tab PO 1 mg DAILY [facility] Administration Ascorbic Acid 500 mg 04/15/17 13:15 04/18/17 09:14 Vitamin C 500 Mg Tab PO 500 mg DAILY [facility] Administration Aspirin 81 mg 04/15/17 12:15 04/18/17 09:18 Ecotrin PO 81 mg DAILY [facility] Administration Atorvastatin Calcium 20 mg 04/15/17 22:00 04/18/17 22:47 Lipitor PO 20 mg HS [facility] Administration Benzocaine/Menthol 1 saumya 04/17/17 16:09 04/18/17 03:00 Cepacol Sore Throat PO 1 saumya Q3 PRN Administration Sore Throat Calcium/Vitamin D 1 tab 04/15/17 13:15 04/18/17 09:14 Oyster Shell Calcium/Vitamin D 500 Mg-200 Iu PO 1 tab DAILY [facility] Administration Cholecalciferol 1,000 intlu 04/15/17 12:15 04/18/17 09:14 Vitamin D PO 1,000 intlu DAILY [facility] Administration Docusate Sodium 100 mg 04/15/17 11:50 Colace PO BID PRN Constipation Ceftriaxone Sodium 1 gm/ 100 mls @ 100 mls/hr 04/16/17 09:15 04/18/17 08:53 Sodium Chloride IVPB 100 mls/hr DAILY [facility] Administration Protocol Azithromycin 500 mg/ Sodium 250 mls @ 250 mls/hr 04/16/17 09:15 04/18/17 09: 12 Chloride IVPB 250 mls/hr DAILY [facility] Administration Protocol Levothyroxine Sodium 25 mcg 04/16/17 06:30 04/19/17 07:06 Synthroid PO Not Given DAILY@0630 [facility] Losartan Potassium 25 mg 04/15/17 12:15 04/18/17 09:12 Cozaar PO 25 mg DAILY [facility] Administration Metoprolol Succinate 50 mg 04/17/17 09:00 04/18/17 09:15 Toprol Xl PO 50 mg DAILY [facility] Administration Multivitamins/Minerals 1 tab 04/15/17 13:15 04/18/17 09:18 Therapeutic-M Tab PO 1 tab DAILY [facility] Administration Nitroglycerin 0.4 mg 04/15/17 12:01 Nitrostat Sl Tab SL Q5MIN PRN chest pain Nitroglycerin 1 ea 04/15/17 22:00 04/18/17 22:47 Nitro-Bid 2% Oint TOP 1 ea QID [facility] Administration Vitamin E 400 intlu 04/15/17 12:15 04/18/17 09:12 Vitamin E 400 Units Cap PO 400 intlu DAILY [facility] Administration - Patient Studies Lab Studies: Lab Studies 04/19/17 04/19/17 04/19/17 Range/Units 02:15 02:15 02:15 WBC 9.6 (4.8-10.8) K/uL RBC 3.82 (3.80-5.20) Mil/uL Hgb 11.9 L (12.0-16.0) g/dL Hct 36.7 (34.0-47.0) % MCV 96.0 (81.0-99.0) fl MCH 31.3 H (27.0-31.0) pg MCHC 32.6 L (33.0-37.0) g/dL RDW 14.0 (11.5-14.5) % Plt Count 190 (130-400) K/uL APTT 97.6 H D (25.6-37.1) Seconds Sodium 136 (132-148) mmol/l Potassium 4.8 (3.6-5.0) MMOL/L Chloride 103 (98-107) mmol/L Carbon Dioxide 27 (22-30) mmol/L Anion Gap 11 (10-20) BUN 20 H (7-17) mg/dl Creatinine 1.2 (0.7-1.2) mg/dl Est GFR ( Amer) 52 Est GFR (Non-Af Amer) 43 Random Glucose 103 (65-105) mg/dL Calcium 9.1 (8.4-10.2) mg/dL 04/18/17 04/18/17 Range/Units 18:30 11:33 WBC (4.8-10.8) K/uL RBC (3.80-5.20) Mil/uL Hgb (12.0-16.0) g/dL Hct (34.0-47.0) % MCV (81.0-99.0) fl MCH (27.0-31.0) pg MCHC (33.0-37.0) g/dL RDW (11.5-14.5) % Plt Count (130-400) K/uL APTT 47.9 H D 64.4 H (25.6-37.1) Seconds Sodium (132-148) mmol/l Potassium (3.6-5.0) MMOL/L Chloride (98-107) mmol/L Carbon Dioxide (22-30) mmol/L Anion Gap (10-20) BUN (7-17) mg/dl Creatinine (0.7-1.2) mg/dl Est GFR ( Amer) Est GFR (Non-Af Amer) Random Glucose (65-105) mg/dL Calcium (8.4-10.2) mg/dL Laboratory Results - last 24 hr 04/18/17 04/18/17 04/19/17 11:33 18:30 02:15 WBC 9.6 RBC 3.82 Hgb 11.9 L Hct 36.7 MCV 96.0 MCH 31.3 H MCHC 32.6 L RDW 14.0 Plt Count 190 APTT 64.4 H 47.9 H D Sodium Potassium Chloride Carbon Dioxide Anion Gap BUN Creatinine Est GFR ( Amer) Est GFR (Non-Af Amer) Random Glucose Calcium 04/19/17 04/19/17 02:15 02:15 WBC RBC Hgb Hct MCV MCH MCHC RDW Plt Count APTT 97.6 H D Sodium 136 Potassium 4.8 Chloride 103 Carbon Dioxide 27 Anion Gap 11 BUN 20 H Creatinine 1.2 Est GFR ( Amer) 52 Est GFR (Non-Af Amer) 43 Random Glucose 103 Calcium 9.1 Critical Care Progress Note - Nutrition Nutrition: Nutrition Category Date Time Status NPO Diet [DIET] Diets 04/19/17 Breakfast Active Assessment/Plan (1) NSTEMI (non-ST elevated myocardial infarction) Current Visit: No Status: Acute Priority: High Comment: ACS with NSTEMI on heparin gtt Mild decompensated Cardiomyopathy with L- CHF, severe MR and DD dysfx as last reported on ECHO Nov 2016 Chest pain free Cardiac cath today Continue current treatements (2) CKD (chronic kidney disease) stage 3, GFR 30-59 ml/min Current Visit: Yes Status: Acute (3) Systolic and diastolic CHF, acute on chronic Current Visit: Yes Status: Acute (4) COPD (chronic obstructive pulmonary disease) Current Visit: Yes Status: Chronic Priority: High (5) AICD discharge Current Visit: No Status: Acute Priority: High (6) HLD (hyperlipidemia) Current Visit: No Status: Chronic (7) HTN (hypertension) Current Visit: No Status: Chronic
--- NOTE | 2017-04-19 08:21 | CP.PCM.PN ---
Subjective - Date & Time of Evaluation Date of Evaluation: 04/18/17 Time of Evaluation: 19:00 Objective - Vital Signs/Intake and Output Vital Signs (last 24 hours): Temp Pulse Resp BP Pulse Ox 99.8 F H 81 16 115/89 93 L 04/19/17 04:00 04/19/17 06:00 04/19/17 06:00 04/19/17 06:00 04/19/17 06:00 Intake and Output: 04/19/17 04/19/17 06:59 18:59 Intake Total 0 Balance 0 - Medications Medications: Current Medications Acetaminophen (Tylenol 325mg Tab) 650 mg PO Q6 PRN PRN Reason: Pain, moderate (4-7) Last Admin: 04/18/17 00:53 Dose: 650 mg Amiodarone HCl (Cordarone) 200 mg PO DAILY [facility] Last Admin: 04/18/17 09:19 Dose: 200 mg Anastrozole (Arimidex 1 Mg Tab) 1 mg PO DAILY [facility] Last Admin: 04/18/17 09:24 Dose: 1 mg Ascorbic Acid (Vitamin C 500 Mg Tab) 500 mg PO DAILY [facility] Last Admin: 04/18/17 09:14 Dose: 500 mg Aspirin (Ecotrin) 81 mg PO DAILY [facility] Last Admin: 04/18/17 09:18 Dose: 81 mg Atorvastatin Calcium (Lipitor) 20 mg PO HS [facility] Last Admin: 04/18/17 22:47 Dose: 20 mg Benzocaine/Menthol (Cepacol Sore Throat) 1 saumya PO Q3 PRN PRN Reason: Sore Throat Last Admin: 04/18/17 03:00 Dose: 1 saumya Calcium/Vitamin D (Oyster Shell Calcium/Vitamin D 500 Mg-200 Iu) 1 tab PO DAILY [facility] Last Admin: 04/18/17 09:14 Dose: 1 tab Cholecalciferol (Vitamin D) 1,000 intlu PO DAILY [facility] Last Admin: 04/18/17 09:14 Dose: 1,000 intlu Docusate Sodium (Colace) 100 mg PO BID PRN PRN Reason: Constipation Ceftriaxone Sodium 1 gm/ (Sodium Chloride) 100 mls @ 100 mls/hr IVPB DAILY [facility] PRN Reason: Protocol Last Admin: 04/18/17 08:53 Dose: 100 mls/hr Azithromycin 500 mg/ Sodium (Chloride) 250 mls @ 250 mls/hr IVPB DAILY [facility] PRN Reason: Protocol Last Admin: 04/18/17 09:12 Dose: 250 mls/hr Levothyroxine Sodium (Synthroid) 25 mcg PO DAILY@0630 [facility] Last Admin: 04/19/17 07:06 Dose: Not Given Losartan Potassium (Cozaar) 25 mg PO DAILY [facility] Last Admin: 04/18/17 09:12 Dose: 25 mg Metoprolol Succinate (Toprol Xl) 50 mg PO DAILY [facility] Last Admin: 04/18/17 09:15 Dose: 50 mg Multivitamins/Minerals (Therapeutic-M Tab) 1 tab PO DAILY [facility] Last Admin: 04/18/17 09:18 Dose: 1 tab Nitroglycerin (Nitrostat Sl Tab) 0.4 mg SL Q5MIN PRN PRN Reason: chest pain Nitroglycerin (Nitro-Bid 2% Oint) 1 ea TOP QID [facility] Last Admin: 04/18/17 22:47 Dose: 1 ea Vitamin E (Vitamin E 400 Units Cap) 400 intlu PO DAILY [facility] Last Admin: 04/18/17 09:12 Dose: 400 intlu - Labs Labs: 04/19/17 02:15 04/19/17 02:15 PT 11.2 Seconds (9.8-13.1) 04/17/17 17:10 INR 1.0 (0.9-1.2) 04/17/17 17:10 APTT 97.6 Seconds (25.6-37.1) H D 04/19/17 02:15 - Constitutional Appears: Well - Head Exam Head Exam: ATRAUMATIC, NORMAL INSPECTION, NORMOCEPHALIC - Eye Exam Eye Exam: EOMI, Normal appearance, PERRL Pupil Exam: NORMAL ACCOMODATION, PERRL - ENT Exam ENT Exam: Mucous Membranes Moist, Normal Exam - Neck Exam Neck Exam: Full ROM, Normal Inspection. absent: Lymphadenopathy - Respiratory Exam Respiratory Exam: Clear to Ausculation Bilateral, NORMAL BREATHING PATTERN - Cardiovascular Exam Cardiovascular Exam: REGULAR RHYTHM, +S1, +S2, Murmur - GI/Abdominal Exam GI & Abdominal Exam: Soft, Normal Bowel Sounds. absent: Tenderness - Extremities Exam Extremities Exam: Full ROM, Normal Capillary Refill, Normal Inspection. absent : Joint Swelling, Pedal Edema - Back Exam Back Exam: NORMAL INSPECTION - Neurological Exam Neurological Exam: Alert, Awake, CN II-XII Intact, Oriented x3 - Psychiatric Exam Psychiatric exam: Flat Affect, Normal Mood - Skin Skin Exam: Dry, Intact, Normal Color, Warm Assessment and Plan (1) Chest pain Status: Acute (2) Dyspnea Status: Acute (3) Fatigue Status: Acute (4) NSTEMI (non-ST elevated myocardial infarction) Status: Acute (5) CHF (congestive heart failure) Status: Chronic (6) HLD (hyperlipidemia) Status: Chronic (7) HTN (hypertension) Status: Chronic
--- NOTE | 2017-04-19 10:06 | CP.PCM.PN ---
Subjective - Date & Time of Evaluation Date of Evaluation: 04/19/17 Time of Evaluation: 10:06 - Subjective Subjective: Presently out for cardiac cath. Objective - Vital Signs/Intake and Output Vital Signs (last 24 hours): Temp Pulse Resp BP Pulse Ox 99.8 F H 81 16 115/89 93 L 04/19/17 04:00 04/19/17 06:00 04/19/17 06:00 04/19/17 06:00 04/19/17 06:00 Intake and Output: 04/18/17 04/19/17 23:59 11:59 Intake Total 350 0 Output Total 300 Balance 50 0 - Medications Medications: Current Medications Acetaminophen (Tylenol 325mg Tab) 650 mg PO Q6 PRN PRN Reason: Pain, moderate (4-7) Last Admin: 04/18/17 00:53 Dose: 650 mg Amiodarone HCl (Cordarone) 200 mg PO DAILY [facility] Last Admin: 04/18/17 09:19 Dose: 200 mg Anastrozole (Arimidex 1 Mg Tab) 1 mg PO DAILY [facility] Last Admin: 04/18/17 09:24 Dose: 1 mg Ascorbic Acid (Vitamin C 500 Mg Tab) 500 mg PO DAILY [facility] Last Admin: 04/18/17 09:14 Dose: 500 mg Aspirin (Ecotrin) 81 mg PO DAILY [facility] Last Admin: 04/18/17 09:18 Dose: 81 mg Atorvastatin Calcium (Lipitor) 20 mg PO HS [facility] Last Admin: 04/18/17 22:47 Dose: 20 mg Benzocaine/Menthol (Cepacol Sore Throat) 1 saumya PO Q3 PRN PRN Reason: Sore Throat Last Admin: 04/18/17 03:00 Dose: 1 saumya Calcium/Vitamin D (Oyster Shell Calcium/Vitamin D 500 Mg-200 Iu) 1 tab PO DAILY [facility] Last Admin: 04/18/17 09:14 Dose: 1 tab Cholecalciferol (Vitamin D) 1,000 intlu PO DAILY [facility] Last Admin: 04/18/17 09:14 Dose: 1,000 intlu Docusate Sodium (Colace) 100 mg PO BID PRN PRN Reason: Constipation Ceftriaxone Sodium 1 gm/ (Sodium Chloride) 100 mls @ 100 mls/hr IVPB DAILY [facility] PRN Reason: Protocol Last Admin: 04/18/17 08:53 Dose: 100 mls/hr Azithromycin 500 mg/ Sodium (Chloride) 250 mls @ 250 mls/hr IVPB DAILY [facility] PRN Reason: Protocol Last Admin: 04/18/17 09:12 Dose: 250 mls/hr Levothyroxine Sodium (Synthroid) 25 mcg PO DAILY@0630 [facility] Last Admin: 04/19/17 07:06 Dose: Not Given Losartan Potassium (Cozaar) 25 mg PO DAILY [facility] Last Admin: 04/18/17 09:12 Dose: 25 mg Metoprolol Succinate (Toprol Xl) 50 mg PO DAILY [facility] Last Admin: 04/18/17 09:15 Dose: 50 mg Multivitamins/Minerals (Therapeutic-M Tab) 1 tab PO DAILY [facility] Last Admin: 04/18/17 09:18 Dose: 1 tab Nitroglycerin (Nitrostat Sl Tab) 0.4 mg SL Q5MIN PRN PRN Reason: chest pain Nitroglycerin (Nitro-Bid 2% Oint) 1 ea TOP QID [facility] Last Admin: 04/18/17 22:47 Dose: 1 ea Vitamin E (Vitamin E 400 Units Cap) 400 intlu PO DAILY [facility] Last Admin: 04/18/17 09:12 Dose: 400 intlu - Labs Labs: 04/19/17 02:15 04/19/17 02:15 PT 11.2 Seconds (9.8-13.1) 04/17/17 17:10 INR 1.0 (0.9-1.2) 04/17/17 17:10 APTT 97.6 Seconds (25.6-37.1) H D 04/19/17 02:15 Assessment and Plan (1) Low cardiac output syndrome Status: Chronic (2) Cardiomyopathy Status: Chronic (3) CAD (coronary artery disease) Status: Chronic (4) COPD (chronic obstructive pulmonary disease) Status: Chronic (5) Hypothyroidism Status: Chronic
[2017-04-19] MEDS: Nitroglycerin 2% Ointment Foilpak UD TOP SCH ×4 (14:13→23:45)
[2017-04-19] MEDS ORDERED: Nitroglycerin 50mg in D5W 50 MG/250 ML BOTTLE IV ONE (15:09)
[2017-04-19] MEDS: Benzocaine/Menthol (Cepacol) Lozenge PO PRN (16:21)
[2017-04-19] MEDS: Calcium-Vit D 500 mg-200 Units Tab UD PO SCH (16:22)
[2017-04-19] MEDS: Cholecalciferol 1,000 INTLU TAB PO SCH (16:24)
[2017-04-19] MEDS: Multivitamin With Minerals Tab PO SCH (16:24)
[2017-04-19] MEDS: Azithromycin 500 MG in Sodium Chloride 0.9% 250 ML IVPB SCH (16:25)
--- NOTE | 2017-04-19 18:21 | CP.PCM.PN ---
Subjective - Date & Time of Evaluation Date of Evaluation: 04/19/17 Time of Evaluation: 17:00 - Subjective Subjective: Patient seen and examined post cardiac cath . She is feeling tired.With episode of chest pain after cardiac cath today . At present on Nitro drip Diuresed 2 L fluid post cath hemodynamically stable Objective - Vital Signs/Intake and Output Vital Signs (last 24 hours): Temp Pulse Resp BP Pulse Ox 97.9 F 94 H 26 H 79/50 L 94 L 04/19/17 16:00 04/19/17 18:00 04/19/17 18:00 04/19/17 18:00 04/19/17 18:00 Intake and Output: 04/19/17 04/19/17 06:59 18:59 Intake Total 0 Balance 0 - Medications Medications: Current Medications Acetaminophen (Tylenol 325mg Tab) 650 mg PO Q6 PRN PRN Reason: Pain, moderate (4-7) Last Admin: 04/18/17 00:53 Dose: 650 mg Amiodarone HCl (Cordarone) 200 mg PO DAILY [facility] Last Admin: 04/19/17 16:21 Dose: 200 mg Anastrozole (Arimidex 1 Mg Tab) 1 mg PO DAILY [facility] Last Admin: 04/19/17 16:20 Dose: 1 mg Ascorbic Acid (Vitamin C 500 Mg Tab) 500 mg PO DAILY [facility] [place] Last Admin: 04/19/17 16:24 Dose: 500 mg Aspirin (Ecotrin) 81 mg PO DAILY [facility] [place] Last Admin: 04/19/17 16:22 Dose: 81 mg Atorvastatin Calcium (Lipitor) 20 mg PO HS [facility] [place] Last Admin: 04/18/17 22:47 Dose: 20 mg Benzocaine/Menthol (Cepacol Sore Throat) 1 saumya PO Q3 PRN PRN Reason: Sore Throat Last Admin: 04/19/17 16:21 Dose: 1 saumya Calcium/Vitamin D (Oyster Shell Calcium/Vitamin D 500 Mg-200 Iu) 1 tab PO DAILY [facility] Last Admin: 04/19/17 16:22 Dose: 1 tab Cholecalciferol (Vitamin D) 1,000 intlu PO DAILY [facility] [place] Last Admin: 04/19/17 16:24 Dose: 1,000 intlu Docusate Sodium (Colace) 100 mg PO BID PRN PRN Reason: Constipation Ceftriaxone Sodium 1 gm/ (Sodium Chloride) 100 mls @ 100 mls/hr IVPB DAILY [facility] PRN Reason: Protocol Last Admin: 04/19/17 16:22 Dose: 100 mls/hr Azithromycin 500 mg/ Sodium (Chloride) 250 mls @ 250 mls/hr IVPB DAILY [facility] PRN Reason: Protocol Last Admin: 04/19/17 16:25 Dose: 250 mls/hr Nitroglycerin/Dextrose (Nitroglycerin 50 Mg/250 Ml D5w) 50 mg in 250 mls @ 1.5 mls/hr IV .Q24H ONE; 5 MCG/MIN PRN Reason: Protocol Stop: 04/20/17 15:08 Last Admin: 04/19/17 15:26 Dose: 1.5 mls/hr Levothyroxine Sodium (Synthroid) 25 mcg PO DAILY@0630 [facility] [place] Last Admin: 04/19/17 07:06 Dose: Not Given Losartan Potassium (Cozaar) 25 mg PO DAILY [facility] [place] Last Admin: 04/19/17 16:21 Dose: 25 mg Metoprolol Succinate (Toprol Xl) 50 mg PO DAILY [facility] [place] Last Admin: 04/18/17 09:15 Dose: 50 mg Multivitamins/Minerals (Therapeutic-M Tab) 1 tab PO DAILY [facility] [place] Last Admin: 04/19/17 16:24 Dose: 1 tab Nitroglycerin (Nitrostat Sl Tab) 0.4 mg SL Q5MIN PRN PRN Reason: chest pain Nitroglycerin (Nitro-Bid 2% Oint) 1 ea TOP QID [facility] [place] Last Admin: 04/19/17 16:22 Dose: Not Given Vitamin E (Vitamin E 400 Units Cap) 400 intlu PO DAILY [facility] Last Admin: 04/19/17 16:25 Dose: 400 intlu - Labs Labs: 04/19/17 02:15 04/19/17 02:15 PT 11.2 Seconds (9.8-13.1) 04/17/17 17:10 INR 1.0 (0.9-1.2) 04/17/17 17:10 APTT 97.6 Seconds (25.6-37.1) H D 04/19/17 02:15 - Constitutional Appears: Non-toxic, No Acute Distress - Head Exam Head Exam: ATRAUMATIC, NORMAL INSPECTION, NORMOCEPHALIC - Eye Exam Eye Exam: EOMI, Normal appearance, PERRL Pupil Exam: NORMAL ACCOMODATION - ENT Exam ENT Exam: Mucous Membranes Moist, Normal Exam - Neck Exam Neck Exam: Full ROM, Normal Inspection - Respiratory Exam Respiratory Exam: Clear to Ausculation Bilateral, NORMAL BREATHING PATTERN. absent: Rales, Rhonchi, Wheezes, Respiratory Distress - Cardiovascular Exam Cardiovascular Exam: REGULAR RHYTHM, RRR, +S1, +S2. absent: JVD - GI/Abdominal Exam GI & Abdominal Exam: Soft, Normal Bowel Sounds. absent: Distended, Guarding, Tenderness, Rebound - Rectal Exam Rectal Exam: Deferred - Extremities Exam Extremities Exam: Full ROM, Normal Capillary Refill, Normal Inspection. absent : Calf Tenderness, Pedal Edema Additional comments: right groin with dressing in place no hematoma - Back Exam Back Exam: NORMAL INSPECTION - Neurological Exam Neurological Exam: Alert, Awake, CN II-XII Intact - Psychiatric Exam Psychiatric exam: Flat Affect - Skin Skin Exam: Dry, Normal Color, Pallor Assessment and Plan - Assessment and Plan (Free Text) Assessment: 81 y/o lady with hx of Cardiomyopathy s/p AICD, Arrythmia s/p Ablation, CAD, CVA, COPD, Hypothyroidism, HTN, Hyperlipidemia, came in bec of left arm discomfort and some SOB. CXR showed Pulm Vascular congestion. Troponin were positive up to 3.0. Patient was admitted to ICU and started on heparin drip.Cardiology and pulmonary consulted. Her troponins trended down to 0.69. Went for cardiac cath today @ [facility] that showed diffuse artherosclerotic disease and EF 20 %. With chest pain post cath and currently on nitro drip 1.NSTEMI (non-ST elevated myocardial infarction) Acute admitted with elevated Trop 3 that trended down 0.69 post cath today that showed diffuse artherosclerotic disease and EF 20 % on Nitro drip due to chest pain post cath cardiology on consult , following, Dr. Da Silva continue metoprolol ASA, Statin, ARB 2. Systolic and diastolic CHF, acute on chronic EF 20% as reported by cardiac cath Received lasix today and diuresed well cont BB and ARB 3. COPD (chronic obstructive pulmonary disease), stable Chronic Duoneb prn 4.Hypothyroidism Chronic cont Levothyroxine 5. Leukocytosis WBC unclear etiology-- resolved 9K Trending down from 17 K -- 9 K with dry cough pt has no fever empirically started by Dr Kozel on IV Ceftriaxone and Azithro Urinalysis- clear Influenza negative 6. Acute Kidney Injury prob prerenal likely due to diuresis hold off on Aldactone improving Cr 1.2 from 1.6 Repeat BMP in AM 7. DVT prophylaxis was Heparin drip until before cath today
[2017-04-19] MEDS: Milrinone 20mg/100ml D5W 100 ML IV SCH (23:12)
[2017-04-20 05:18] LABS: HEMOGLOBIN 12.7 g/dL (12.0-16.0); MEAN CELL VOLUME 95.6 fl (81.0-99.0); MEAN CORPUSCULAR HEMOGLOBIN 31.8 pg (27.0-31.0); MEAN CORPUSCULAR HGB CONC 33.2 g/dL (33.0-37.0); RBC 3.99 Mil/uL (3.80-5.20); RED CELL DISTRIBUTION WIDTH 13.8 % (11.5-14.5); WHITE BLOOD COUNT 10.4 K/uL (4.8-10.8)
[2017-04-20 05:36] LABS: CALCIUM 9.2 mg/dL (8.4-10.2)
[2017-04-20 05:55] LABS: TROPONIN I 0.394 ng/mL (0.00-0.120)
[2017-04-20] MEDS: Levothyroxine 25 MCG TAB PO SCH (07:26)
[2017-04-20] MEDS ORDERED: Furosemide 100 MG in Sodium Chloride 0.9% 100 ML IV SCH (07:45)
--- NOTE | 2017-04-20 07:51 | CP.PCM.PN ---
<Sukh Lemusabbs - Last Filed: 04/20/17 07:37> Subjective - Date & Time of Evaluation Date of Evaluation: 04/20/17 Time of Evaluation: 07:37 - Subjective Subjective: Cardiology progress note for Dr. Da Silva Patient seen and examined at bedside. Patient offers no complaints at this time Objective - Vital Signs/Intake and Output Vital Signs (last 24 hours): Temp Pulse Resp BP Pulse Ox 98.6 F 80 18 101/58 L 97 04/20/17 04:00 04/20/17 06:00 04/20/17 06:00 04/20/17 06:00 04/20/17 06:00 Intake and Output: 04/20/17 04/20/17 06:59 18:59 Output Total 200 Balance -200 - Medications Medications: Current Medications Acetaminophen (Tylenol 325mg Tab) 650 mg PO Q6 PRN PRN Reason: Pain, moderate (4-7) Last Admin: 04/18/17 00:53 Dose: 650 mg Amiodarone HCl (Cordarone) 200 mg PO DAILY [facility] Last Admin: 04/19/17 16:21 Dose: 200 mg Anastrozole (Arimidex 1 Mg Tab) 1 mg PO DAILY [facility] Last Admin: 04/19/17 16:20 Dose: 1 mg Ascorbic Acid (Vitamin C 500 Mg Tab) 500 mg PO DAILY [facility] Last Admin: 04/19/17 16:24 Dose: 500 mg Aspirin (Ecotrin) 81 mg PO DAILY [facility] Last Admin: 04/19/17 16:22 Dose: 81 mg Atorvastatin Calcium (Lipitor) 20 mg PO HS [facility] Last Admin: 04/19/17 22:34 Dose: 20 mg Benzocaine/Menthol (Cepacol Sore Throat) 1 saumya PO Q3 PRN PRN Reason: Sore Throat Last Admin: 04/19/17 16:21 Dose: 1 saumya Calcium/Vitamin D (Oyster Shell Calcium/Vitamin D 500 Mg-200 Iu) 1 tab PO DAILY [facility] Last Admin: 04/19/17 16:22 Dose: 1 tab Cholecalciferol (Vitamin D) 1,000 intlu PO DAILY [facility] Last Admin: 04/19/17 16:24 Dose: 1,000 intlu Docusate Sodium (Colace) 100 mg PO BID PRN PRN Reason: Constipation Furosemide (Lasix) 40 mg IVP BID [facility] Ceftriaxone Sodium 1 gm/ (Sodium Chloride) 100 mls @ 100 mls/hr IVPB DAILY [facility] PRN Reason: Protocol Last Admin: 04/19/17 16:22 Dose: 100 mls/hr Azithromycin 500 mg/ Sodium (Chloride) 250 mls @ 250 mls/hr IVPB DAILY [facility] PRN Reason: Protocol Last Admin: 04/19/17 16:25 Dose: 250 mls/hr Nitroglycerin/Dextrose (Nitroglycerin 50 Mg/250 Ml D5w) 50 mg in 250 mls @ 1.5 mls/hr IV .Q24H ONE; 5 MCG/MIN PRN Reason: Protocol Stop: 04/20/17 15:08 Last Admin: 04/19/17 15:26 Dose: 1.5 mls/hr Milrinone Lactate/Dextrose (Primacor 20mg/100ml D5w) 100 mls @ 5.273 mls/hr IV .[id number] [facility]; 0.25 MCG/KG/MIN PRN Reason: Protocol Last Admin: 04/19/17 23:12 Dose: 0.25 mcg/kg/min, 5.273 mls/hr Levothyroxine Sodium (Synthroid) 25 mcg PO DAILY@0630 [facility] Last Admin: 04/20/17 07:26 Dose: 25 mcg Losartan Potassium (Cozaar) 25 mg PO DAILY [facility] Last Admin: 04/19/17 16:21 Dose: 25 mg Metoprolol Succinate (Toprol Xl) 50 mg PO DAILY [facility] Last Admin: 04/18/17 09:15 Dose: 50 mg Multivitamins/Minerals (Therapeutic-M Tab) 1 tab PO DAILY [facility] Last Admin: 04/19/17 16:24 Dose: 1 tab Nitroglycerin (Nitrostat Sl Tab) 0.4 mg SL Q5MIN PRN PRN Reason: chest pain Nitroglycerin (Nitro-Bid 2% Oint) 1 ea TOP QID [facility] Last Admin: 04/19/17 23:45 Dose: 1 ea Vitamin E (Vitamin E 400 Units Cap) 400 intlu PO DAILY [facility] Last Admin: 04/19/17 16:25 Dose: 400 intlu - Labs Labs: 04/20/17 04:40 04/20/17 04:40 PT 11.2 Seconds (9.8-13.1) 04/17/17 17:10 INR 1.0 (0.9-1.2) 04/17/17 17:10 APTT 97.6 Seconds (25.6-37.1) H D 04/19/17 02:15 - Additional Findings Additional findings: Physical Exam: Vital Signs as below Const'l: awake alert & oriented x 4, no acute distress Head/Neck: neck supple, no jvd, trachea midline, carotid midline, no cervical/head mass Eyes: pupils equally reactive to light and accommodation, nonicteric sclera, extraocular intact ENT: auditory acuity grossly intact, throat not congested, no nasal deformity Cardio: regular rate, regular rhythm, no murmurs rubs gallops, no carotid bruit, normal s1, s2 Pulm: +Nasal Cannula 2L; no accessory muscle use, equal normal breath sounds bilaterally, clear to ausculation bilaterally Abd: soft non tender non-distended, normal bowel sounds x 4 quadrants, no palpable masses Derm: no rashes, no ulcers, no lesions Extr: +Cath site is clean/dry/intact; no edema, no cyanosis, no calf tenderness, no lesions, no varicosities Neuro: cranial nerves II-XII grossly intact, upper extremity and lower extremity 5/5 muscle strength bilaterally, no loss of sensation in upper extremities, lower extremities bilaterally and core Assessment and Plan - Assessment and Plan (Free Text) Assessment: 81 year old female with past medical history significant for CAD, hypertension, Dilated Cardiomyopathy with AICD, previous CVA, COPD, OA and history of left breast cancer presented with shortness of breath and left arm pain. Patient denied chest discomfort. Patient was found to have elevated troponins up to 3.070 with NSR on EKG. Chest Xray showed new vascular congestion. ECHO from showed EF of 15-25%. Patient is on appropriate heart failure medication at home, Aldactone, Nitrate, Losartan, Atorvastatin, and aspirin - changed from metoprolol tartrate to metoprolol succinate here. Patient is currently on appropriate therapy for NSTEMI as well, including heparin drip NSTEMI - Troponins elevated up to 3.07, trending down, last at .6970, EKG normal - Aspirin, Atorvastatin, Aldactone, Nitrate, Losartan, Heparin drip; Metoprolol tartrate changed to Metoprolol Succinate. - Added Amiodarone 200 - Patient cath results are as follow: Left Heart Cath: Non-obstructive Right Heart Cath Hemodynamics: Right Atrium 15 PCWP 30 Pulmonary Arterial Pressure 80/40 with mean of 50 Cardiac Output 2.7 Coronary artery disease - Treatment as above Hyperlipidemia - Treatment as above Hypertension - Losartan, Metoprolol - Monitor Dilated Cardiomyopathy - Patient has AICD - GDMT as above Previous CVA - Per primary team COPD history - Per primary team Osteoarthritis - Per primary team Breast Cancer - Per primary team Dispo: Patient initiated on Milrinone .5mcg/kg/hr; Lasix changed to 40 BID <Bernard Da Silva - Last Filed: 04/21/17 00:48> Objective - Vital Signs/Intake and Output Vital Signs (last 24 hours): Temp Pulse Resp BP Pulse Ox 98.5 F 95 H 21 108/60 92 L 04/20/17 20:00 04/20/17 23:00 04/20/17 23:00 04/20/17 23:00 04/20/17 23:00 Intake and Output: 04/20/17 04/21/17 18:59 06:59 Intake Total 100 75 Output Total 600 Balance -500 75 - Medications Medications: Current Medications Acetaminophen (Tylenol 325mg Tab) 650 mg PO Q6 PRN PRN Reason: Pain, moderate (4-7) Last Admin: 04/18/17 00:53 Dose: 650 mg Amiodarone HCl (Cordarone) 200 mg PO DAILY [facility] Last Admin: 04/20/17 08:47 Dose: 200 mg Anastrozole (Arimidex 1 Mg Tab) 1 mg PO DAILY [facility] Last Admin: 04/20/17 09:06 Dose: 1 mg Ascorbic Acid (Vitamin C 500 Mg Tab) 500 mg PO DAILY [facility] Last Admin: 04/20/17 08:49 Dose: 500 mg Aspirin (Ecotrin) 81 mg PO DAILY [facility] Last Admin: 04/20/17 08:48 Dose: 81 mg Atorvastatin Calcium (Lipitor) 20 mg PO HS [facility] Last Admin: 04/20/17 21:58 Dose: 20 mg Azithromycin (Zithromax) 500 mg PO DAILY [facility] Benzocaine/Menthol (Cepacol Sore Throat) 1 saumya PO Q3 PRN PRN Reason: Sore Throat Last Admin: 04/19/17 16:21 Dose: 1 saumya Calcium/Vitamin D (Oyster Shell Calcium/Vitamin D 500 Mg-200 Iu) 1 tab PO DAILY [facility] Last Admin: 04/20/17 08:48 Dose: 1 tab Cholecalciferol (Vitamin D) 1,000 intlu PO DAILY [facility] Last Admin: 04/20/17 08:49 Dose: 1,000 intlu Digoxin (Lanoxin) 0.125 mg PO DAILY [facility] Docusate Sodium (Colace) 100 mg PO BID PRN PRN Reason: Constipation Furosemide (Lasix) 40 mg IVP BID [facility] Last Admin: 04/20/17 16:34 Dose: 40 mg Heparin Sodium (Porcine) (Heparin) 5,000 units SC Q12 [facility] PRN Reason: Protocol Last Admin: 04/20/17 21:58 Dose: 5,000 units Ceftriaxone Sodium 1 gm/ (Sodium Chloride) 100 mls @ 100 mls/hr IVPB DAILY [facility] PRN Reason: Protocol Last Admin: 04/20/17 08:57 Dose: 100 mls/hr Milrinone Lactate/Dextrose (Primacor 20mg/100ml D5w) 100 mls @ 5.273 mls/hr IV .[id number] [facility]; 0.25 MCG/KG/MIN PRN Reason: Protocol Last Admin: 04/20/17 16:21 Dose: 0.25 mcg/kg/min, 5.273 mls/hr Levothyroxine Sodium (Synthroid) 25 mcg PO DAILY@0630 [facility] Last Admin: 04/20/17 07:26 Dose: 25 mcg Losartan Potassium (Cozaar) 25 mg PO DAILY [facility] Last Admin: 04/20/17 08:48 Dose: 25 mg Metoprolol Succinate (Toprol Xl) 50 mg PO DAILY [facility] Last Admin: 04/20/17 08:49 Dose: 50 mg Multivitamins/Minerals (Therapeutic-M Tab) 1 tab PO DAILY [facility] Last Admin: 04/20/17 08:49 Dose: 1 tab Nitroglycerin (Nitrostat Sl Tab) 0.4 mg SL Q5MIN PRN PRN Reason: chest pain Last Admin: 04/20/17 07:40 Dose: 0.4 mg Nitroglycerin (Nitro-Bid 2% Oint) 1 ea TOP QID [facility] Last Admin: 04/20/17 21:58 Dose: 1 ea Vitamin E (Vitamin E 400 Units Cap) 400 intlu PO DAILY [facility] Last Admin: 04/20/17 09:07 Dose: 400 intlu - Labs Labs: 04/20/17 04:40 04/20/17 04:40 PT 11.2 Seconds (9.8-13.1) 04/17/17 17:10 INR 1.0 (0.9-1.2) 04/17/17 17:10 APTT 97.6 Seconds (25.6-37.1) H D 04/19/17 02:15 Assessment and Plan (1) Chest pain Status: Acute (2) Dyspnea Status: Acute (3) Fatigue Status: Acute (4) NSTEMI (non-ST elevated myocardial infarction) Status: Acute (5) CHF (congestive heart failure) Status: Chronic (6) HLD (hyperlipidemia) Status: Chronic (7) HTN (hypertension) Status: Chronic Attending/Attestation - Attestation I have personally seen and examined this patient.: Yes I have fully participated in the care of the patient.: Yes I have reviewed all pertinent clinical information, including history, physical exam and plan: Yes Notes (Text): 04/20/17 15:47 cont with milrinone infusion x 48 hours chg lasix to bid cont GDMT for CHF repeat BNP in am
[2017-04-20] MEDS: Calcium-Vit D 500 mg-200 Units Tab UD PO SCH (08:48)
[2017-04-20] MEDS: Cholecalciferol 1,000 INTLU TAB PO SCH (08:49)
[2017-04-20] MEDS: Multivitamin With Minerals Tab PO SCH (08:49)
[2017-04-20] MEDS: Metoprolol Succinate 50 mg XL Tab PO SCH (08:49)
[2017-04-20] MEDS: Nitroglycerin 2% Ointment Foilpak UD TOP SCH ×4 (08:56→21:58)
[2017-04-20] MEDS: Azithromycin 500 MG in Sodium Chloride 0.9% 250 ML IVPB SCH (09:07)
--- NOTE | 2017-04-20 10:25 | CP.PCM.PN ---
Subjective - Date & Time of Evaluation Date of Evaluation: 04/20/17 Time of Evaluation: 10:22 - Subjective Subjective: Case discussed this morning. Cath results noted. Has significant pulmonary hypertension. Has complaint of pain in the LUE today, as on presentation to the ER. Started on nitrates and milrinone. Presently fatigued appearance. Will discuss further with cardiology regarding treatments. Objective - Vital Signs/Intake and Output Vital Signs (last 24 hours): Temp Pulse Resp BP Pulse Ox 97.6 F 100 H 12 132/85 95 04/20/17 08:00 04/20/17 08:56 04/20/17 08:00 04/20/17 08:56 04/20/17 08:00 Intake and Output: 04/19/17 04/20/17 23:59 11:59 Output Total 200 Balance -200 - Medications Medications: Current Medications Acetaminophen (Tylenol 325mg Tab) 650 mg PO Q6 PRN PRN Reason: Pain, moderate (4-7) Last Admin: 04/18/17 00:53 Dose: 650 mg Amiodarone HCl (Cordarone) 200 mg PO DAILY [facility] Last Admin: 04/20/17 08:47 Dose: 200 mg Anastrozole (Arimidex 1 Mg Tab) 1 mg PO DAILY [facility] Last Admin: 04/20/17 09:06 Dose: 1 mg Ascorbic Acid (Vitamin C 500 Mg Tab) 500 mg PO DAILY [facility] Last Admin: 04/20/17 08:49 Dose: 500 mg Aspirin (Ecotrin) 81 mg PO DAILY [facility] Last Admin: 04/20/17 08:48 Dose: 81 mg Atorvastatin Calcium (Lipitor) 20 mg PO HS [facility] Last Admin: 04/19/17 22:34 Dose: 20 mg Benzocaine/Menthol (Cepacol Sore Throat) 1 saumya PO Q3 PRN PRN Reason: Sore Throat Last Admin: 04/19/17 16:21 Dose: 1 saumya Calcium/Vitamin D (Oyster Shell Calcium/Vitamin D 500 Mg-200 Iu) 1 tab PO DAILY [facility] Last Admin: 04/20/17 08:48 Dose: 1 tab Cholecalciferol (Vitamin D) 1,000 intlu PO DAILY [facility] Last Admin: 04/20/17 08:49 Dose: 1,000 intlu Docusate Sodium (Colace) 100 mg PO BID PRN PRN Reason: Constipation Furosemide (Lasix) 40 mg IVP BID [facility] Last Admin: 04/20/17 08:52 Dose: 40 mg Ceftriaxone Sodium 1 gm/ (Sodium Chloride) 100 mls @ 100 mls/hr IVPB DAILY [facility] PRN Reason: Protocol Last Admin: 04/20/17 08:57 Dose: 100 mls/hr Azithromycin 500 mg/ Sodium (Chloride) 250 mls @ 250 mls/hr IVPB DAILY [facility] PRN Reason: Protocol Last Admin: 04/20/17 09:07 Dose: 250 mls/hr Nitroglycerin/Dextrose (Nitroglycerin 50 Mg/250 Ml D5w) 50 mg in 250 mls @ 1.5 mls/hr IV .Q24H ONE; 5 MCG/MIN PRN Reason: Protocol Stop: 04/20/17 15:08 Last Admin: 04/19/17 15:26 Dose: 1.5 mls/hr Milrinone Lactate/Dextrose (Primacor 20mg/100ml D5w) 100 mls @ 5.273 mls/hr IV .[id number] [facility]; 0.25 MCG/KG/MIN PRN Reason: Protocol Last Admin: 04/19/17 23:12 Dose: 0.25 mcg/kg/min, 5.273 mls/hr Levothyroxine Sodium (Synthroid) 25 mcg PO DAILY@0630 [facility] Last Admin: 04/20/17 07:26 Dose: 25 mcg Losartan Potassium (Cozaar) 25 mg PO DAILY [facility] Last Admin: 04/20/17 08:48 Dose: 25 mg Metoprolol Succinate (Toprol Xl) 50 mg PO DAILY [facility] Last Admin: 04/20/17 08:49 Dose: 50 mg Multivitamins/Minerals (Therapeutic-M Tab) 1 tab PO DAILY [facility] Last Admin: 04/20/17 08:49 Dose: 1 tab Nitroglycerin (Nitrostat Sl Tab) 0.4 mg SL Q5MIN PRN PRN Reason: chest pain Last Admin: 04/20/17 07:40 Dose: 0.4 mg Nitroglycerin (Nitro-Bid 2% Oint) 1 ea TOP QID [facility] Last Admin: 04/20/17 08:56 Dose: 1 ea Vitamin E (Vitamin E 400 Units Cap) 400 intlu PO DAILY [facility] Last Admin: 04/20/17 09:07 Dose: 400 intlu - Labs Labs: 04/20/17 04:40 04/20/17 04:40 PT 11.2 Seconds (9.8-13.1) 04/17/17 17:10 INR 1.0 (0.9-1.2) 04/17/17 17:10 APTT 97.6 Seconds (25.6-37.1) H D 04/19/17 02:15 Assessment and Plan (1) Low cardiac output syndrome Status: Chronic (2) Cardiomyopathy Status: Chronic (3) CAD (coronary artery disease) Status: Chronic (4) COPD (chronic obstructive pulmonary disease) Status: Chronic (5) Hypothyroidism Status: Chronic
--- NOTE | 2017-04-20 11:51 | RAD ---
PROCEDURE: CHEST RADIOGRAPH, 1 VIEW HISTORY: CHF COMPARISON: 04/15/2017 FINDINGS: LUNGS: Clear. PLEURA: No pneumothorax or pleural fluid seen. CARDIOVASCULAR: No radiographic findings to suggest acute or significant cardiovascular disease. Position/ configuration of pacemaker device: Satisfactory. OSSEOUS STRUCTURES: No significant abnormalities. VISUALIZED UPPER ABDOMEN: Normal. OTHER FINDINGS: None. IMPRESSION: No active disease. No acute/significant interval changes.
[2017-04-20] MEDS ORDERED: Digoxin 0.05 mg/mL Elixir 5mL PO ONE (13:59)
--- NOTE | 2017-04-20 14:05 | CP.PCM.PN ---
Subjective - Date & Time of Evaluation Date of Evaluation: 04/20/17 Time of Evaluation: 12:30 - Subjective Subjective: No Chest Pain at present however had CP this am Trop this am 0.39 ( trending down from previous) no SOB no cough On Milrinone drip Objective - Vital Signs/Intake and Output Vital Signs (last 24 hours): Temp Pulse Resp BP Pulse Ox 98.6 F 86 19 101/55 L 93 L 04/20/17 12:00 04/20/17 12:00 04/20/17 12:00 04/20/17 12:00 04/20/17 12:00 Intake and Output: 04/20/17 04/20/17 06:59 18:59 Output Total 200 Balance -200 - Medications Medications: Current Medications Acetaminophen (Tylenol 325mg Tab) 650 mg PO Q6 PRN PRN Reason: Pain, moderate (4-7) Last Admin: 04/18/17 00:53 Dose: 650 mg Amiodarone HCl (Cordarone) 200 mg PO DAILY [facility] Last Admin: 04/20/17 08:47 Dose: 200 mg Anastrozole (Arimidex 1 Mg Tab) 1 mg PO DAILY [facility] Last Admin: 04/20/17 09:06 Dose: 1 mg Ascorbic Acid (Vitamin C 500 Mg Tab) 500 mg PO DAILY [facility] Last Admin: 04/20/17 08:49 Dose: 500 mg Aspirin (Ecotrin) 81 mg PO DAILY [facility] Last Admin: 04/20/17 08:48 Dose: 81 mg Atorvastatin Calcium (Lipitor) 20 mg PO HS [facility] Last Admin: 04/19/17 22:34 Dose: 20 mg Benzocaine/Menthol (Cepacol Sore Throat) 1 saumya PO Q3 PRN PRN Reason: Sore Throat Last Admin: 04/19/17 16:21 Dose: 1 saumya Calcium/Vitamin D (Oyster Shell Calcium/Vitamin D 500 Mg-200 Iu) 1 tab PO DAILY [facility] Last Admin: 04/20/17 08:48 Dose: 1 tab Cholecalciferol (Vitamin D) 1,000 intlu PO DAILY [facility] Last Admin: 04/20/17 08:49 Dose: 1,000 intlu Digoxin (Lanoxin Elixir Soln) 0.5 mg PO ONCE ONE Stop: 04/20/17 14:00 Digoxin (Lanoxin) 0.125 mg PO DAILY [facility] Docusate Sodium (Colace) 100 mg PO BID PRN PRN Reason: Constipation Furosemide (Lasix) 40 mg IVP BID [facility] Last Admin: 04/20/17 08:52 Dose: 40 mg Ceftriaxone Sodium 1 gm/ (Sodium Chloride) 100 mls @ 100 mls/hr IVPB DAILY [facility] PRN Reason: Protocol Last Admin: 04/20/17 08:57 Dose: 100 mls/hr Azithromycin 500 mg/ Sodium (Chloride) 250 mls @ 250 mls/hr IVPB DAILY [facility] PRN Reason: Protocol Last Admin: 04/20/17 09:07 Dose: 250 mls/hr Nitroglycerin/Dextrose (Nitroglycerin 50 Mg/250 Ml D5w) 50 mg in 250 mls @ 1.5 mls/hr IV .Q24H ONE; 5 MCG/MIN PRN Reason: Protocol Stop: 04/20/17 15:08 Last Admin: 04/19/17 15:26 Dose: 1.5 mls/hr Milrinone Lactate/Dextrose (Primacor 20mg/100ml D5w) 100 mls @ 5.273 mls/hr IV .[id number] [facility]; 0.25 MCG/KG/MIN PRN Reason: Protocol Last Admin: 04/19/17 23:12 Dose: 0.25 mcg/kg/min, 5.273 mls/hr Levothyroxine Sodium (Synthroid) 25 mcg PO DAILY@0630 [facility] Last Admin: 04/20/17 07:26 Dose: 25 mcg Losartan Potassium (Cozaar) 25 mg PO DAILY [facility] Last Admin: 04/20/17 08:48 Dose: 25 mg Metoprolol Succinate (Toprol Xl) 50 mg PO DAILY [facility] Last Admin: 04/20/17 08:49 Dose: 50 mg Multivitamins/Minerals (Therapeutic-M Tab) 1 tab PO DAILY [facility] Last Admin: 04/20/17 08:49 Dose: 1 tab Nitroglycerin (Nitrostat Sl Tab) 0.4 mg SL Q5MIN PRN PRN Reason: chest pain Last Admin: 04/20/17 07:40 Dose: 0.4 mg Nitroglycerin (Nitro-Bid 2% Oint) 1 ea TOP QID [facility] Last Admin: 04/20/17 08:56 Dose: 1 ea Vitamin E (Vitamin E 400 Units Cap) 400 intlu PO DAILY [facility] Last Admin: 04/20/17 09:07 Dose: 400 intlu - Labs Labs: 04/20/17 04:40 04/20/17 04:40 PT 11.2 Seconds (9.8-13.1) 04/17/17 17:10 INR 1.0 (0.9-1.2) 04/17/17 17:10 APTT 97.6 Seconds (25.6-37.1) H D 04/19/17 02:15 - Constitutional Appears: No Acute Distress - Head Exam Head Exam: NORMAL INSPECTION, NORMOCEPHALIC - Eye Exam Eye Exam: EOMI, Normal appearance Pupil Exam: NORMAL ACCOMMODATION - ENT Exam ENT Exam: Mucous Membranes Moist, Normal External Ear Exam - Neck Exam Neck Exam: Full ROM. absent: Meningismus - Respiratory Exam Respiratory Exam: Rales, NORMAL BREATHING PATTERN. absent: Wheezes, Respiratory Distress - Cardiovascular Exam Cardiovascular Exam: REGULAR RHYTHM, +S1, +S2. absent: JVD - GI/Abdominal Exam GI & Abdominal Exam: Soft, Normal Bowel Sounds. absent: Tenderness - Extremities Exam Extremities Exam: Normal Capillary Refill. absent: Calf Tenderness, Pedal Edema - Back Exam Back Exam: absent: CVA tenderness (L), CVA tenderness (R) - Neurological Exam Neurological Exam: Alert, Awake, Oriented x3 Neuro motor strength exam: Left Upper Extremity: 4, Right Upper Extremity: 4, Left Lower Extremity: 4, Right Lower Extremity: 4 - Psychiatric Exam Psychiatric exam: Normal Affect, Normal Mood - Skin Skin Exam: Dry, Normal Color, Warm Assessment and Plan (1) NSTEMI (non-ST elevated myocardial infarction) Status: Acute (2) Systolic and diastolic CHF, acute on chronic Status: Acute (3) COPD (chronic obstructive pulmonary disease) Status: Chronic (4) Hypothyroidism Status: Chronic (5) Leukocytosis Status: Acute (6) DVT prophylaxis Status: Acute - Assessment and Plan (Free Text) Assessment: 81 y/o lady with hx of Cardiomyopathy s/p AICD, Arrythmia s/p Ablation, CAD, CVA, COPD, Hypothyroidism, HTN, Hyperlipidemia, came in bec of left arm discomfort and some SOB. CXR showed Pulm Vascular congestion. Troponin were positive up to 3.0. Patient was admitted to ICU and started on heparin drip.Cardiology and pulmonary consulted. Her troponins trended down to 0.69. Went for cardiac cath today @ [facility] that showed diffuse artherosclerotic disease and EF 20 %. With chest pain post cath and currently on nitro drip 1.NSTEMI (non-ST elevated myocardial infarction) Acute admitted with elevated Trop 3 that trended down 0.69 Cardiac Cath done 04/19 : diffuse artherosclerotic disease and EF 20 % , elevated Pulm art pressure Cardio following Pt : Dr. Da Silva continue metoprolol ASA, Statin, BB and ARB 2. Systolic and diastolic CHF, acute on chronic Pulmonary HTN, severe EF 20% as reported by cardiac cath cont BB and ARB On Mirinone drip as rec by Dr Da Silva cont 40mg bid Lasix cont Amiodarone 3. COPD (chronic obstructive pulmonary disease), stable Chronic Duoneb prn Dr Lara following pt 4.Hypothyroidism Chronic cont Levothyroxine 5. Leukocytosis WBC unclear etiology-- resolved Trended down from 17 K -- 9 K with dry cough pt has no fever empirically started by Dr Gomez on IV Ceftriaxone and Azithro Urinalysis- clear Influenza negative 6. Acute Kidney Injury prob prerenal likely due to diuresis hold off on Aldactone Repeat BMP in AM 7. DVT prophylaxis restart Heparin SQ q 12
--- NOTE | 2017-04-20 16:16 | CP.CCUPN ---
CCU Subjective - Physician Review Events Since Last Encounter (Free Text): 04/20/17 The patient was Seen/interviewed and examined by me at the bedside during ICU round, Medical records reviewed and Management issues were discussed and formulated with the house staff. Events reviewed 81 Years old Female PMHx HTN, hyperlipidemia, CAD with multiple MA's, AICD-PPM, hypothyroidism and breast CA hx s/p mastectomy Admitted with NSTEMI (non-ST elevated myocardial infarction) Pt transfer to [facility] for cardiac cath yesterday This morning she had an episode of Left side chest tightness, resolved with sublingulat NTG x2 Patient is currently on Primacor drip , off heparin and NTG drip EKG done, no acute changes Now she feels well and is hemodynamically stable, Pt AAO x3. Alert, follows commands Denies any chest pain, SOB or Palpitations Afebrile, NSR on the monitor - Cardiac cath results: Left Heart Cath: Non-obstructive Right Heart Cath Hemodynamics: Right Atrium 15 PCWP 30 Pulmonary Arterial Pressure 80/40 with mean of 50 Cardiac Output 2.7 CCU Objective - Vital Signs / Intake & Output Intake and Output (Last 8hrs): Intake & Output 04/20/17 04/20/17 04/20/17 06:59 14:59 22:59 Output Total 200 Balance -200 Output: Urine 200 Urine, Voided 200 - Physical Exam Head: Positive for: Normocephalic Pupils: Positive for: PERRL Extroacular Muscles: Positive for: EOMI Conjunctiva: Positive for: Normal Mouth: Positive for: Moist Mucous Membranes Pharnyx: Positive for: Normal Neck: Negative for: JVD, Lymphadenopathy Respiratory/Chest: Positive for: Clear to Auscultation, Rales (basilar bilateral rales) Cardiovascular: Positive for: Regular Rate and Rhythm, Murmurs. Negative for: Rub Abdomen: Positive for: Normal Bowel Sounds, Mass/Organomegaly. Negative for: Tenderness, Distention Lower Extremity: Positive for: Normal Inspection, NORMAL PULSES. Negative for: Edema, CALF TENDERNESS, Cyanosis Neurological: Positive for: GCS=15, Motor Func Grossly Intact, Normal Sensory Function Skin: Positive for: Warm, Dry. Negative for: Rashes Psychiatric: Positive for: Alert, Oriented x 3 - Medications Active Medications: Active Medications Generic Name Dose Route Start Last Admin Trade Name Freq PRN Reason Stop Dose Admin Acetaminophen 650 mg 04/16/17 08:26 04/18/17 00:53 Tylenol 325mg Tab PO 650 mg Q6 PRN Administration Pain, moderate (4-7) Amiodarone HCl 200 mg 04/17/17 09:00 04/20/17 08:47 Cordarone PO 200 mg DAILY [facility] Administration Anastrozole 1 mg 04/15/17 12:15 04/20/17 09:06 Arimidex 1 Mg Tab PO 1 mg DAILY [facility] Administration Ascorbic Acid 500 mg 04/15/17 13:15 04/20/17 08:49 Vitamin C 500 Mg Tab PO 500 mg DAILY [facility] Administration Aspirin 81 mg 04/15/17 12:15 04/20/17 08:48 Ecotrin PO 81 mg DAILY [facility] Administration Atorvastatin Calcium 20 mg 04/15/17 22:00 04/19/17 22:34 Lipitor PO 20 mg HS YUVAL Administration Benzocaine/Menthol 1 saumya 04/17/17 16:09 04/19/17 16:21 Cepacol Sore Throat PO 1 saumya Q3 PRN Administration Sore Throat Calcium/Vitamin D 1 tab 04/15/17 13:15 04/20/17 08:48 Oyster Shell Calcium/Vitamin D 500 Mg-200 Iu PO 1 tab DAILY [facility] Administration Cholecalciferol 1,000 intlu 04/15/17 12:15 04/20/17 08:49 Vitamin D PO 1,000 intlu DAILY [facility] Administration Digoxin 0.125 mg 04/21/17 09:00 Lanoxin PO DAILY [facility] Docusate Sodium 100 mg 04/15/17 11:50 Colace PO BID PRN Constipation Furosemide 40 mg 04/20/17 09:00 04/20/17 08:52 Lasix IVP 40 mg BID YUVAL Administration Ceftriaxone Sodium 1 gm/ 100 mls @ 100 mls/hr 04/16/17 09:15 04/20/17 08:57 Sodium Chloride IVPB 100 mls/hr DAILY [facility] Administration Protocol Azithromycin 500 mg/ Sodium 250 mls @ 250 mls/hr 04/16/17 09:15 04/20/17 09: 07 Chloride IVPB 250 mls/hr DAILY [facility] Administration Protocol Milrinone Lactate/Dextrose 100 mls @ 5.273 mls/hr 04/19/17 20:00 04/19/17 23: 12 Primacor 20mg/100ml D5w IV 0.25 mcg/kg/min .[id number] [facility] 5.273 mls/hr Protocol Administration 0.25 MCG/KG/MIN Levothyroxine Sodium 25 mcg 04/16/17 06:30 04/20/17 07:26 Synthroid PO 25 mcg DAILY@0630 [facility] Administration Losartan Potassium 25 mg 04/15/17 12:15 04/20/17 08:48 Cozaar PO 25 mg DAILY [facility] Administration Metoprolol Succinate 50 mg 04/17/17 09:00 04/20/17 08:49 Toprol Xl PO 50 mg DAILY [facility] Administration Multivitamins/Minerals 1 tab 04/15/17 13:15 04/20/17 08:49 Therapeutic-M Tab PO 1 tab DAILY [facility] Administration Nitroglycerin 0.4 mg 04/15/17 12:01 04/20/17 07:40 Nitrostat Sl Tab SL 0.4 mg Q5MIN PRN Administration chest pain Nitroglycerin 1 ea 04/15/17 22:00 04/20/17 08:56 Nitro-Bid 2% Oint TOP 1 ea QID [facility] Administration Vitamin E 400 intlu 04/15/17 12:15 04/20/17 09:07 Vitamin E 400 Units Cap PO 400 intlu DAILY [facility] Administration - Patient Studies Lab Studies: Lab Studies 04/20/17 04/20/17 04/20/17 Range/Units 08:21 05:39 04:40 WBC (4.8-10.8) K/uL RBC (3.80-5.20) Mil/uL Hgb (12.0-16.0) g/dL Hct (34.0-47.0) % MCV (81.0-99.0) fl MCH (27.0-31.0) pg MCHC (33.0-37.0) g/dL RDW (11.5-14.5) % Plt Count (130-400) K/uL Sodium 137 (132-148) mmol/l Potassium 4.6 (3.6-5.0) MMOL/L Chloride 100 (98-107) mmol/L Carbon Dioxide 27 (22-30) mmol/L Anion Gap 15 (10-20) BUN 28 H (7-17) mg/dl Creatinine 1.4 H (0.7-1.2) mg/dl Est GFR ( Amer) 44 Est GFR (Non-Af Amer) 36 POC Glucose (mg/dL) 131 H (65-110) mg/dL Random Glucose 131 H (65-105) mg/dL Calcium 9.2 (8.4-10.2) mg/dL Troponin I 0.3940 H* (0.00-0.120) ng/mL NT-Pro-B Natriuret Pep 2600 H (0-900) pg/ml 04/20/17 Range/Units 04:40 WBC 10.4 (4.8-10.8) K/uL RBC 3.99 (3.80-5.20) Mil/uL Hgb 12.7 (12.0-16.0) g/dL Hct 38.1 (34.0-47.0) % MCV 95.6 (81.0-99.0) fl MCH 31.8 H (27.0-31.0) pg MCHC 33.2 (33.0-37.0) g/dL RDW 13.8 (11.5-14.5) % Plt Count 199 (130-400) K/uL Sodium (132-148) mmol/l Potassium (3.6-5.0) MMOL/L Chloride (98-107) mmol/L Carbon Dioxide (22-30) mmol/L Anion Gap (10-20) BUN (7-17) mg/dl Creatinine (0.7-1.2) mg/dl Est GFR ( Amer) Est GFR (Non-Af Amer) POC Glucose (mg/dL) (65-110) mg/dL Random Glucose (65-105) mg/dL Calcium (8.4-10.2) mg/dL Troponin I (0.00-0.120) ng/mL NT-Pro-B Natriuret Pep (0-900) pg/ml Laboratory Results - last 24 hr 04/20/17 04/20/17 04/20/17 04:40 04:40 05:39 WBC 10.4 RBC 3.99 Hgb 12.7 Hct 38.1 MCV 95.6 MCH 31.8 H MCHC 33.2 RDW 13.8 Plt Count 199 Sodium 137 Potassium 4.6 Chloride 100 Carbon Dioxide 27 Anion Gap 15 BUN 28 H Creatinine 1.4 H Est GFR ( Amer) 44 Est GFR (Non-Af Amer) 36 POC Glucose (mg/dL) 131 H Random Glucose 131 H Calcium 9.2 Troponin I 0.3940 H* NT-Pro-B Natriuret Pep 04/20/17 08:21 WBC RBC Hgb Hct MCV MCH MCHC RDW Plt Count Sodium Potassium Chloride Carbon Dioxide Anion Gap BUN Creatinine Est GFR ( Amer) Est GFR (Non-Af Amer) POC Glucose (mg/dL) Random Glucose Calcium Troponin I NT-Pro-B Natriuret Pep 2600 H EKG/Cardiology Studies: Cardiology / EKG Studies 04/20/17 ELECTROCARDIOGRAM Stat Comment: Mode Of Transportation: PORTABLE Reason For Exam: ACS Isolation: Contact Review of Systems - Cardiovascular Cardiovascular: absent: As Per HPI, Acrocyanosis, Chest Pain, Chest Pain at Rest , Chest Pain with Activity, Claudication, Diaphoresis, Dyspnea, Dyspnea on Exertion, Edema, Irregular Heart Rhythm, Pain Radiating to Arm/Neck/Jaw, Leg Edema, Leg Ulcers, Lightheadedness, Orthopnea, Palpitations, Paroxysmal Nocturnal Dyspnea, Pedal Edema, Radiating Pain, Rapid Heart Rate, Slow Heart Rate, Syncope, Other, UNREMARKABLE - Respiratory Respiratory: absent: As Per HPI, Cough, Dyspnea, Hemoptysis, Dyspnea on Exertion , Wheezing, Snoring, Stridor, Pain on Inspiration, Chest Congestion, Excessive Mucous Production, Change in Mucous Color, Pain with Coughing, Other, UNREMARKABLE - Gastrointestinal Gastrointestinal: absent: Abdominal Pain, Nausea, Vomiting Critical Care Progress Note - Nutrition Nutrition: Nutrition Category Date Time Status Heart Healthy Diet [DIET] Diets 04/19/17 Lunch Active Assessment/Plan (1) NSTEMI (non-ST elevated myocardial infarction) Current Visit: No Status: Acute Priority: High Comment: ACS with NSTEMI on heparin gtt Mild decompensated Cardiomyopathy with L- CHF, severe MR and DD dysfx as last reported on ECHO Nov 2016 Chest pain free Continue current treatements - Patient cath results are as follow: Left Heart Cath: Non-obstructive Right Heart Cath Hemodynamics: Right Atrium 15 PCWP 30 Pulmonary Arterial Pressure 80/40 with mean of 50 Cardiac Output 2.7 (2) Systolic and diastolic CHF, acute on chronic Current Visit: Yes Status: Acute Comment: Continue Losartan, Metoprolol Diuresis Strict I&O, daily Wt Negative fluid balance (3) CKD (chronic kidney disease) stage 3, GFR 30-59 ml/min Current Visit: Yes Status: Acute (4) HTN (hypertension) Current Visit: No Status: Chronic (5) AICD discharge Current Visit: No Status: Acute Priority: High
[2017-04-20] MEDS: Milrinone 20mg/100ml D5W 100 ML IV SCH (16:21)
--- NOTE | 2017-04-20 17:06 | CARD ---
APPROVED REPORT EKG Measurement Heart [id number] <Conclusion> Normal sinus rhythm Left axis deviation Left ventricular hypertrophy with repolarization abnormality Abnormal ECG
[2017-04-21 05:25] LABS: HEMOGLOBIN 12.1 g/dL (12.0-16.0); MEAN CELL VOLUME 96.1 fl (81.0-99.0); MEAN CORPUSCULAR HEMOGLOBIN 31.7 pg (27.0-31.0); RBC 3.83 Mil/uL (3.80-5.20); WHITE BLOOD COUNT 10.4 K/uL (4.8-10.8)
[2017-04-21] MEDS: Levothyroxine 25 MCG TAB PO SCH (05:42)
[2017-04-21 05:55] LABS: ALB/GLOB RATIO 1.2 (1.0-2.1); ALBUMIN 3.7 g/dL (3.5-5.0); CALCIUM 8.8 mg/dL (8.4-10.2)
[2017-04-21] MEDS: Digoxin 125 mcg (0.125 mg) Tab PO SCH (08:52)
[2017-04-21] MEDS: Nitroglycerin 2% Ointment Foilpak UD TOP SCH ×4 (08:52→21:50)
[2017-04-21] MEDS: Metoprolol Succinate 50 mg XL Tab PO SCH (08:53)
[2017-04-21] MEDS: Multivitamin With Minerals Tab PO SCH (08:53)
[2017-04-21] MEDS: Calcium-Vit D 500 mg-200 Units Tab UD PO SCH (08:53)
[2017-04-21] MEDS: Cholecalciferol 1,000 INTLU TAB PO SCH (08:54)
[2017-04-21 10:11] LABS: URINE BACTERIA RARE (<OCC); URINE BILIRUBIN NEGATIVE (NEGATIVE); URINE BLOOD LARGE (NEGATIVE); URINE CLARITY TURBID (Clear); URINE COLOR YELLOW (YELLOW); URINE GLUCOSE (UA) NEG (Normal); URINE LEUKOCYTE ESTERASE TRACE Leu/uL (Negative); URINE NITRATE NEGATIVE (NEGATIVE); URINE PROTEIN 30 mg/dL (NEGATIVE); URINE URIC ACID CRYSTALS FEW /hpf (<OCC); URINE UROBILINOGEN 0.2-1.0 mg/dL (0.2-1.0)
--- NOTE | 2017-04-21 10:58 | CP.PCM.PN ---
<AllanSukh George - Last Filed: 04/21/17 14:13> Subjective - Date & Time of Evaluation Date of Evaluation: 04/21/17 Time of Evaluation: 10:54 - Subjective Subjective: Cardiology progress note for Dr. Da Silva Patient seen and examined at bedside. Per nursing, patient had a bout of body aches overnight, relieved with Tylenol. Patient complained of left sided chest pain and arm pain yesterday after initial encounter, but troponins and ekg showed no changes. Patient right now is resting comfortably in bed without complaints. Objective - Vital Signs/Intake and Output Vital Signs (last 24 hours): Temp Pulse Resp BP Pulse Ox 98.0 F 88 21 124/61 95 04/21/17 08:00 04/21/17 10:00 04/21/17 10:00 04/21/17 10:00 04/21/17 10:00 Intake and Output: 04/21/17 04/21/17 06:59 18:59 Intake Total 190 210 Output Total 300 Balance -110 210 - Medications Medications: Current Medications Acetaminophen (Tylenol 325mg Tab) 650 mg PO Q6 PRN PRN Reason: Pain, moderate (4-7) Last Admin: 04/21/17 01:42 Dose: 650 mg Amiodarone HCl (Cordarone) 200 mg PO DAILY [facility] Last Admin: 04/21/17 08:50 Dose: 200 mg Anastrozole (Arimidex 1 Mg Tab) 1 mg PO DAILY [facility] Last Admin: 04/21/17 08:50 Dose: 1 mg Ascorbic Acid (Vitamin C 500 Mg Tab) 500 mg PO DAILY [facility] Last Admin: 04/21/17 08:53 Dose: 500 mg Aspirin (Ecotrin) 81 mg PO DAILY [facility] Last Admin: 04/21/17 08:51 Dose: 81 mg Atorvastatin Calcium (Lipitor) 20 mg PO HS [facility] Last Admin: 04/20/17 21:58 Dose: 20 mg Azithromycin (Zithromax) 500 mg PO DAILY [facility] Last Admin: 04/21/17 08:54 Dose: 500 mg Benzocaine/Menthol (Cepacol Sore Throat) 1 saumya PO Q3 PRN PRN Reason: Sore Throat Last Admin: 04/19/17 16:21 Dose: 1 saumya Calcium/Vitamin D (Oyster Shell Calcium/Vitamin D 500 Mg-200 Iu) 1 tab PO DAILY [facility] Last Admin: 04/21/17 08:53 Dose: 1 tab Cholecalciferol (Vitamin D) 1,000 intlu PO DAILY [facility] Last Admin: 04/21/17 08:54 Dose: 1,000 intlu Digoxin (Lanoxin) 0.125 mg PO DAILY [facility] Last Admin: 04/21/17 08:52 Dose: 0.125 mg Docusate Sodium (Colace) 100 mg PO BID PRN PRN Reason: Constipation Furosemide (Lasix) 40 mg IVP BID [facility] Last Admin: 04/21/17 08:52 Dose: 40 mg Heparin Sodium (Porcine) (Heparin) 5,000 units SC Q12 [facility] PRN Reason: Protocol Last Admin: 04/21/17 08:51 Dose: 5,000 units Ceftriaxone Sodium 1 gm/ (Sodium Chloride) 100 mls @ 100 mls/hr IVPB DAILY [facility] PRN Reason: Protocol Last Admin: 04/20/17 08:57 Dose: 100 mls/hr Milrinone Lactate/Dextrose (Primacor 20mg/100ml D5w) 100 mls @ 5.273 mls/hr IV .[id number] [facility]; 0.25 MCG/KG/MIN PRN Reason: Protocol Last Admin: 04/20/17 16:21 Dose: 0.25 mcg/kg/min, 5.273 mls/hr Levothyroxine Sodium (Synthroid) 25 mcg PO DAILY@0630 [facility] Last Admin: 04/21/17 05:42 Dose: 25 mcg Losartan Potassium (Cozaar) 25 mg PO DAILY [facility] Last Admin: 04/21/17 08:51 Dose: 25 mg Metoprolol Succinate (Toprol Xl) 50 mg PO DAILY [facility] Last Admin: 04/21/17 08:53 Dose: 50 mg Multivitamins/Minerals (Therapeutic-M Tab) 1 tab PO DAILY [facility] Last Admin: 04/21/17 08:53 Dose: 1 tab Nitroglycerin (Nitrostat Sl Tab) 0.4 mg SL Q5MIN PRN PRN Reason: chest pain Last Admin: 04/20/17 07:40 Dose: 0.4 mg Nitroglycerin (Nitro-Bid 2% Oint) 1 ea TOP QID [facility] Last Admin: 04/21/17 08:52 Dose: 1 ea Vitamin E (Vitamin E 400 Units Cap) 400 intlu PO DAILY [facility] Last Admin: 04/21/17 08:54 Dose: 400 intlu - Labs Labs: 04/21/17 04:15 04/21/17 04:15 PT 11.2 Seconds (9.8-13.1) 04/17/17 17:10 INR 1.0 (0.9-1.2) 04/17/17 17:10 APTT 97.6 Seconds (25.6-37.1) H D 04/19/17 02:15 - Additional Findings Additional findings: Physical Exam: Vital Signs as below Const'l: awake alert & oriented x 4, no acute distress Head/Neck: neck supple, no jvd, trachea midline, carotid midline, no cervical/head mass Eyes: pupils equally reactive to light and accommodation, nonicteric sclera, extraocular intact ENT: auditory acuity grossly intact, throat not congested, no nasal deformity Cardio: regular rate, regular rhythm, no murmurs rubs gallops, no carotid bruit, normal s1, s2 Pulm: +Nasal Cannula 2L; no accessory muscle use, equal normal breath sounds bilaterally, clear to ausculation bilaterally Abd: soft non tender non-distended, normal bowel sounds x 4 quadrants, no palpable masses Derm: no rashes, no ulcers, no lesions Extr: +Cath site is clean/dry/intact; no edema, no cyanosis, no calf tenderness, no lesions, no varicosities Neuro: cranial nerves II-XII grossly intact, upper extremity and lower extremity 5/5 muscle strength bilaterally, no loss of sensation in upper extremities, lower extremities bilaterally and core Assessment and Plan - Assessment and Plan (Free Text) Assessment: Assessment and Plan: 81 year old female with past medical history significant for CAD, hypertension, Dilated Cardiomyopathy with AICD, previous CVA, COPD, OA and history of left breast cancer presented with shortness of breath and left arm pain. Patient denied chest discomfort. Patient was found to have elevated troponins up to 3.070 with NSR on EKG. Chest Xray showed new vascular congestion. ECHO from showed EF of 15-25%. Patient is on appropriate heart failure medication at home, Aldactone, Nitrate, Losartan, Atorvastatin, and aspirin - changed from metoprolol tartrate to metoprolol succinate here. Patient is s/p cardiac cath, see operative note for full details, see below for summary and recommendations. Yesterday, patient's creatinine started trending up, possibly secondary to diuretic use. Lasix changed from BID to daily NSTEMI - Troponins elevated up to 3.07, trending down, EKG normal - Aspirin, Atorvastatin, Aldactone, Nitrate, Losartan, Heparin drip; Metoprolol tartrate changed to Metoprolol Succinate. - Added Amiodarone 200 - Patient cath results are as follow: Left Heart Cath: Non-obstructive Right Heart Cath Hemodynamics: Right Atrium 15 PCWP 30 Pulmonary Arterial Pressure 80/40 with mean of 50 Cardiac Output 2.7 - Patient was initiated on Milrinone .25 mcg/kg/hr yesterday, as well as Digoxin ; latest BNP is trending downward, patient now on Milrinone .125 mcg/kg/hr GINNY, likely 2/2 Diuretic Effect - Change Lasix to daily Coronary artery disease - Treatment as above Hyperlipidemia - Treatment as above Hypertension - Losartan, Metoprolol - Monitor Dilated Cardiomyopathy - Patient has AICD - GDMT as above Previous CVA - Per primary team COPD history - Per primary team Osteoarthritis - Per primary team Breast Cancer - Per primary team Dispo: Patient changed to Milrinone .125mcg/kg/hr; Lasix changed to 40 DAILY; Digoxin given yesterday <Bernard Da Silva - Last Filed: 04/21/17 17:28> Objective - Vital Signs/Intake and Output Vital Signs (last 24 hours): Temp Pulse Resp BP Pulse Ox 99.3 F 80 23 110/61 92 L 04/21/17 16:00 04/21/17 16:45 04/21/17 16:46 04/21/17 16:46 04/21/17 16:46 Intake and Output: 04/21/17 04/21/17 06:59 18:59 Intake Total 190 680 Output Total 300 Balance -110 680 - Medications Medications: Current Medications Acetaminophen (Tylenol 325mg Tab) 650 mg PO Q6 PRN PRN Reason: Pain, moderate (4-7) Last Admin: 04/21/17 01:42 Dose: 650 mg Amiodarone HCl (Cordarone) 200 mg PO DAILY [facility] Last Admin: 04/21/17 08:50 Dose: 200 mg Anastrozole (Arimidex 1 Mg Tab) 1 mg PO DAILY [facility] Last Admin: 04/21/17 08:50 Dose: 1 mg Ascorbic Acid (Vitamin C 500 Mg Tab) 500 mg PO DAILY [facility] Last Admin: 04/21/17 08:53 Dose: 500 mg Aspirin (Ecotrin) 81 mg PO DAILY [facility] Last Admin: 04/21/17 08:51 Dose: 81 mg Atorvastatin Calcium (Lipitor) 20 mg PO HS [facility] Last Admin: 04/20/17 21:58 Dose: 20 mg Azithromycin (Zithromax) 500 mg PO DAILY [facility] Last Admin: 04/21/17 08:54 Dose: 500 mg Benzocaine/Menthol (Cepacol Sore Throat) 1 saumya PO Q3 PRN PRN Reason: Sore Throat Last Admin: 04/19/17 16:21 Dose: 1 saumya Calcium/Vitamin D (Oyster Shell Calcium/Vitamin D 500 Mg-200 Iu) 1 tab PO DAILY [facility] Last Admin: 04/21/17 08:53 Dose: 1 tab Cholecalciferol (Vitamin D) 1,000 intlu PO DAILY [facility] Last Admin: 04/21/17 08:54 Dose: 1,000 intlu Digoxin (Lanoxin) 0.125 mg PO DAILY [facility] Last Admin: 04/21/17 08:52 Dose: 0.125 mg Docusate Sodium (Colace) 100 mg PO BID PRN PRN Reason: Constipation Furosemide (Lasix) 40 mg IVP DAILY [facility] Guaifenesin/Dextromethorphan (Robitussin Dm) 10 ml PO Q4 [facility] Last Admin: 04/21/17 16:14 Dose: 10 ml Heparin Sodium (Porcine) (Heparin) 5,000 units SC Q12 [facility] PRN Reason: Protocol Last Admin: 04/21/17 08:51 Dose: 5,000 units Ceftriaxone Sodium 1 gm/ (Sodium Chloride) 100 mls @ 100 mls/hr IVPB DAILY [facility] PRN Reason: Protocol Last Admin: 04/21/17 11:56 Dose: 100 mls/hr Dextrose/Sodium Chloride (Dextrose 5%/0.45% Ns 1000 Ml) 1,000 mls @ 50 mls/hr IV .Q20H [facility] Stop: 04/22/17 13:26 Last Admin: 04/21/17 14:42 Dose: 50 mls/hr Milrinone Lactate/Dextrose (Primacor 20mg/100ml D5w) 100 mls @ 2.637 mls/hr IV .Q24H [facility]; 0.125 MCG/KG/MIN PRN Reason: Protocol Last Admin: 04/21/17 14:43 Dose: 0.125 mcg/kg/min, 2.637 mls/hr Levothyroxine Sodium (Synthroid) 25 mcg PO DAILY@0630 [facility] Last Admin: 04/21/17 05:42 Dose: 25 mcg Losartan Potassium (Cozaar) 25 mg PO DAILY [facility] Last Admin: 04/21/17 08:51 Dose: 25 mg Metoprolol Succinate (Toprol Xl) 50 mg PO DAILY [facility] Last Admin: 04/21/17 08:53 Dose: 50 mg Multivitamins/Minerals (Therapeutic-M Tab) 1 tab PO DAILY [facility] Last Admin: 04/21/17 08:53 Dose: 1 tab Nitroglycerin (Nitrostat Sl Tab) 0.4 mg SL Q5MIN PRN PRN Reason: chest pain Last Admin: 04/20/17 07:40 Dose: 0.4 mg Nitroglycerin (Nitro-Bid 2% Oint) 1 ea TOP QID [facility] Last Admin: 04/21/17 16:45 Dose: 1 ea Vitamin E (Vitamin E 400 Units Cap) 400 intlu PO DAILY [facility] Last Admin: 04/21/17 08:54 Dose: 400 intlu - Labs Labs: 04/21/17 04:15 04/21/17 04:15 PT 11.2 Seconds (9.8-13.1) 04/17/17 17:10 INR 1.0 (0.9-1.2) 04/17/17 17:10 APTT 97.6 Seconds (25.6-37.1) H D 04/19/17 02:15 Assessment and Plan (1) Chest pain Status: Acute (2) Dyspnea Status: Acute (3) Fatigue Status: Acute (4) NSTEMI (non-ST elevated myocardial infarction) Status: Acute (5) CHF (congestive heart failure) Status: Chronic (6) HLD (hyperlipidemia) Status: Chronic (7) HTN (hypertension) Status: Chronic Attending/Attestation - Attestation I have personally seen and examined this patient.: Yes I have fully participated in the care of the patient.: Yes I have reviewed all pertinent clinical information, including history, physical exam and plan: Yes Notes (Text): 04/21/17 17:27 Decrease lasix as pt euvolemic Responding to inotropic support with milrinone will decrease dose of milrione to 0.125 cont BB and arb ( home dose ) digoxin added for inotropic support 04/21/17 17:28
--- NOTE | 2017-04-21 11:40 | CP.PCM.PN ---
Subjective - Date & Time of Evaluation Date of Evaluation: 04/21/17 Time of Evaluation: 11:40 - Subjective Subjective: Interim events noted. Awake and alert. Mildly congested, non-productive cough +. Vital signs and labs have remained stable. Still on milrinone infusion. Breath sounds present bilaterally w/o wheezing. Few sonorous rhonchi in dependant regions bilaterally. Doubt medication changes at this time. Primacor infusion as per cardiology. Mobilize patient OOB to chair. No further leukocytosis, and she has been afebrile. 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 Objective - Vital Signs/Intake and Output Vital Signs (last 24 hours): Temp Pulse Resp BP Pulse Ox 98.0 F 83 14 123/61 95 04/21/17 08:00 04/21/17 10:57 04/21/17 10:57 04/21/17 10:57 04/21/17 10:57 Intake and Output: 04/20/17 04/21/17 23:59 11:59 Intake Total 175 325 Output Total 400 300 Balance -225 25 - Medications Medications: Current Medications Acetaminophen (Tylenol 325mg Tab) 650 mg PO Q6 PRN PRN Reason: Pain, moderate (4-7) Last Admin: 04/21/17 01:42 Dose: 650 mg Amiodarone HCl (Cordarone) 200 mg PO DAILY [facility] Last Admin: 04/21/17 08:50 Dose: 200 mg Anastrozole (Arimidex 1 Mg Tab) 1 mg PO DAILY [facility] Last Admin: 04/21/17 08:50 Dose: 1 mg Ascorbic Acid (Vitamin C 500 Mg Tab) 500 mg PO DAILY [facility] Last Admin: 04/21/17 08:53 Dose: 500 mg Aspirin (Ecotrin) 81 mg PO DAILY [facility] Last Admin: 04/21/17 08:51 Dose: 81 mg Atorvastatin Calcium (Lipitor) 20 mg PO HS [facility] Last Admin: 04/20/17 21:58 Dose: 20 mg Azithromycin (Zithromax) 500 mg PO DAILY [facility] Last Admin: 04/21/17 08:54 Dose: 500 mg Benzocaine/Menthol (Cepacol Sore Throat) 1 saumya PO Q3 PRN PRN Reason: Sore Throat Last Admin: 04/19/17 16:21 Dose: 1 saumya Calcium/Vitamin D (Oyster Shell Calcium/Vitamin D 500 Mg-200 Iu) 1 tab PO DAILY [facility] Last Admin: 04/21/17 08:53 Dose: 1 tab Cholecalciferol (Vitamin D) 1,000 intlu PO DAILY [facility] Last Admin: 04/21/17 08:54 Dose: 1,000 intlu Digoxin (Lanoxin) 0.125 mg PO DAILY [facility] Last Admin: 04/21/17 08:52 Dose: 0.125 mg Docusate Sodium (Colace) 100 mg PO BID PRN PRN Reason: Constipation Furosemide (Lasix) 40 mg IVP BID [facility] Last Admin: 04/21/17 08:52 Dose: 40 mg Heparin Sodium (Porcine) (Heparin) 5,000 units SC Q12 [facility] PRN Reason: Protocol Last Admin: 04/21/17 08:51 Dose: 5,000 units Ceftriaxone Sodium 1 gm/ (Sodium Chloride) 100 mls @ 100 mls/hr IVPB DAILY [facility] PRN Reason: Protocol Last Admin: 04/20/17 08:57 Dose: 100 mls/hr Milrinone Lactate/Dextrose (Primacor 20mg/100ml D5w) 100 mls @ 5.273 mls/hr IV .[id number] [facility]; 0.25 MCG/KG/MIN PRN Reason: Protocol Last Admin: 04/20/17 16:21 Dose: 0.25 mcg/kg/min, 5.273 mls/hr Levothyroxine Sodium (Synthroid) 25 mcg PO DAILY@0630 [facility] Last Admin: 04/21/17 05:42 Dose: 25 mcg Losartan Potassium (Cozaar) 25 mg PO DAILY [facility] Last Admin: 04/21/17 08:51 Dose: 25 mg Metoprolol Succinate (Toprol Xl) 50 mg PO DAILY [facility] Last Admin: 04/21/17 08:53 Dose: 50 mg Multivitamins/Minerals (Therapeutic-M Tab) 1 tab PO DAILY [facility] Last Admin: 04/21/17 08:53 Dose: 1 tab Nitroglycerin (Nitrostat Sl Tab) 0.4 mg SL Q5MIN PRN PRN Reason: chest pain Last Admin: 04/20/17 07:40 Dose: 0.4 mg Nitroglycerin (Nitro-Bid 2% Oint) 1 ea TOP QID [facility] Last Admin: 04/21/17 08:52 Dose: 1 ea Vitamin E (Vitamin E 400 Units Cap) 400 intlu PO DAILY [facility] Last Admin: 04/21/17 08:54 Dose: 400 intlu - Labs Labs: 04/21/17 04:15 04/21/17 04:15 PT 11.2 Seconds (9.8-13.1) 04/17/17 17:10 INR 1.0 (0.9-1.2) 04/17/17 17:10 APTT 97.6 Seconds (25.6-37.1) H D 04/19/17 02:15 Assessment and Plan (1) Low cardiac output syndrome Status: Chronic (2) Cardiomyopathy Status: Chronic (3) CAD (coronary artery disease) Status: Chronic (4) COPD (chronic obstructive pulmonary disease) Status: Chronic (5) Hypothyroidism Status: Chronic
--- NOTE | 2017-04-21 11:51 | CP.PCM.PN ---
Subjective - Date & Time of Evaluation Date of Evaluation: 04/21/17 Time of Evaluation: 11:00 - Subjective Subjective: Pt complains of cough, no fever no SOB no wheezing denies CP requesting for " Western style omelette" no abd pain no fever Objective - Vital Signs/Intake and Output Vital Signs (last 24 hours): Temp Pulse Resp BP Pulse Ox 98.0 F 83 14 123/61 95 04/21/17 08:00 04/21/17 10:57 04/21/17 10:57 04/21/17 10:57 04/21/17 10:57 Intake and Output: 04/21/17 04/21/17 06:59 18:59 Intake Total 190 210 Output Total 300 Balance -110 210 - Medications Medications: Current Medications Acetaminophen (Tylenol 325mg Tab) 650 mg PO Q6 PRN PRN Reason: Pain, moderate (4-7) Last Admin: 04/21/17 01:42 Dose: 650 mg Amiodarone HCl (Cordarone) 200 mg PO DAILY [facility] Last Admin: 04/21/17 08:50 Dose: 200 mg Anastrozole (Arimidex 1 Mg Tab) 1 mg PO DAILY [facility] Last Admin: 04/21/17 08:50 Dose: 1 mg Ascorbic Acid (Vitamin C 500 Mg Tab) 500 mg PO DAILY [facility] Last Admin: 04/21/17 08:53 Dose: 500 mg Aspirin (Ecotrin) 81 mg PO DAILY [facility] Last Admin: 04/21/17 08:51 Dose: 81 mg Atorvastatin Calcium (Lipitor) 20 mg PO HS [facility] Last Admin: 04/20/17 21:58 Dose: 20 mg Azithromycin (Zithromax) 500 mg PO DAILY [facility] Last Admin: 04/21/17 08:54 Dose: 500 mg Benzocaine/Menthol (Cepacol Sore Throat) 1 saumya PO Q3 PRN PRN Reason: Sore Throat Last Admin: 04/19/17 16:21 Dose: 1 saumya Calcium/Vitamin D (Oyster Shell Calcium/Vitamin D 500 Mg-200 Iu) 1 tab PO DAILY [facility] Last Admin: 04/21/17 08:53 Dose: 1 tab Cholecalciferol (Vitamin D) 1,000 intlu PO DAILY [facility] Last Admin: 04/21/17 08:54 Dose: 1,000 intlu Digoxin (Lanoxin) 0.125 mg PO DAILY [facility] Last Admin: 04/21/17 08:52 Dose: 0.125 mg Docusate Sodium (Colace) 100 mg PO BID PRN PRN Reason: Constipation Furosemide (Lasix) 40 mg IVP BID [facility] Last Admin: 04/21/17 08:52 Dose: 40 mg Heparin Sodium (Porcine) (Heparin) 5,000 units SC Q12 [facility] PRN Reason: Protocol Last Admin: 04/21/17 08:51 Dose: 5,000 units Ceftriaxone Sodium 1 gm/ (Sodium Chloride) 100 mls @ 100 mls/hr IVPB DAILY [facility] PRN Reason: Protocol Last Admin: 04/20/17 08:57 Dose: 100 mls/hr Milrinone Lactate/Dextrose (Primacor 20mg/100ml D5w) 100 mls @ 5.273 mls/hr IV .[id number] [facility]; 0.25 MCG/KG/MIN PRN Reason: Protocol Last Admin: 04/20/17 16:21 Dose: 0.25 mcg/kg/min, 5.273 mls/hr Levothyroxine Sodium (Synthroid) 25 mcg PO DAILY@0630 [facility] Last Admin: 04/21/17 05:42 Dose: 25 mcg Losartan Potassium (Cozaar) 25 mg PO DAILY [facility] Last Admin: 04/21/17 08:51 Dose: 25 mg Metoprolol Succinate (Toprol Xl) 50 mg PO DAILY [facility] Last Admin: 04/21/17 08:53 Dose: 50 mg Multivitamins/Minerals (Therapeutic-M Tab) 1 tab PO DAILY [facility] Last Admin: 04/21/17 08:53 Dose: 1 tab Nitroglycerin (Nitrostat Sl Tab) 0.4 mg SL Q5MIN PRN PRN Reason: chest pain Last Admin: 04/20/17 07:40 Dose: 0.4 mg Nitroglycerin (Nitro-Bid 2% Oint) 1 ea TOP QID [facility] Last Admin: 04/21/17 08:52 Dose: 1 ea Vitamin E (Vitamin E 400 Units Cap) 400 intlu PO DAILY [facility] Last Admin: 04/21/17 08:54 Dose: 400 intlu - Labs Labs: 04/21/17 04:15 04/21/17 04:15 PT 11.2 Seconds (9.8-13.1) 04/17/17 17:10 INR 1.0 (0.9-1.2) 04/17/17 17:10 APTT 97.6 Seconds (25.6-37.1) H D 04/19/17 02:15 - Constitutional Appears: No Acute Distress - Head Exam Head Exam: NORMAL INSPECTION, NORMOCEPHALIC - Eye Exam Eye Exam: EOMI, Normal appearance Pupil Exam: NORMAL ACCOMMODATION - ENT Exam ENT Exam: Mucous Membranes Moist, Normal External Ear Exam - Neck Exam Neck Exam: Full ROM. absent: Meningismus - Respiratory Exam Respiratory Exam: Rales, rhonchi, NORMAL BREATHING PATTERN. absent: Wheezes, Respiratory Distress - Cardiovascular Exam Cardiovascular Exam: REGULAR RHYTHM, +S1, +S2. absent: JVD - GI/Abdominal Exam GI & Abdominal Exam: Soft, Normal Bowel Sounds. absent: Tenderness - Extremities Exam Extremities Exam: Normal Capillary Refill. absent: Calf Tenderness, Pedal Edema - Back Exam Back Exam: absent: CVA tenderness (L), CVA tenderness (R) - Neurological Exam Neurological Exam: Alert, Awake, Oriented x3 Neuro motor strength exam: Left Upper Extremity: 4, Right Upper Extremity: 4, Left Lower Extremity: 4, Right Lower Extremity: 4 - Psychiatric Exam Psychiatric exam: Normal Affect, Normal Mood - Skin Skin Exam: Dry, Normal Color, Warm Assessment and Plan (1) NSTEMI (non-ST elevated myocardial infarction) Status: Acute (2) Systolic and diastolic CHF, acute on chronic Status: Acute (3) COPD (chronic obstructive pulmonary disease) Status: Chronic (4) Hypothyroidism Status: Chronic (5) Leukocytosis Status: Acute (6) DVT prophylaxis Status: Acute - Assessment and Plan (Free Text) Assessment: 81 y/o lady with hx of Cardiomyopathy s/p AICD, Arrhythmia s/p Ablation, CAD, CVA, COPD, Hypothyroidism, HTN, Hyperlipidemia, came in bec of left arm discomfort and some SOB. CXR showed Pulm Vascular congestion. Troponin were positive up to 3.0 Patient was admitted to ICU and started on heparin drip. Cardiology and pulmonary consulted. Her troponins trended down to 0.69 Went for cardiac cath 04/19 @ [facility] that showed diffuse artherosclerotic disease and EF 20 %. 1.NSTEMI (non-ST elevated myocardial infarction) Acute admitted with elevated Trop 3 that trended down 0.69 Cardiac Cath done 04/19 : diffuse artherosclerotic disease and EF 20 % , elevated Pulm art pressure Cardio following Pt : Dr. Da Silva continue metoprolol ASA, Statin, BB and ARB 2. Systolic and diastolic CHF, acute on chronic Pulmonary HTN, severe EF 20% as reported by cardiac cath cont BB and ARB On Milrinone drip as rec by Dr Da Silva cont 40mg bid Lasix cont Amiodarone and Digoxin 3. COPD (chronic obstructive pulmonary disease), stable Chronic Duoneb prn Dr Gomez following pt 4.Hypothyroidism Chronic cont Levothyroxine 5. Leukocytosis and Cough unclear etiology-- leukocytosis now resolved however still with cough pt has no fever worsening of cough may be sec to ? Milrinone ( SE of bronchospasm) empirically started by Dr Gomez on IV Ceftriaxone and Azithro CXR 04/20 : no infiltrates start Robitussin, cont Bronchodilators Influenza: negative 6. Acute Kidney Injury prob prerenal on CKD Stage III likely due to diuretics , pt also had cardiac cath hold off on Aldactone Repeat BMP in AM Nephrology consulted: Dr Powell 7. DVT prophylaxis Heparin SQ q 12
[2017-04-21] MEDS: Milrinone 20mg/100ml D5W 100 ML IV SCH ×2 (11:53→14:43)
--- NOTE | 2017-04-21 13:31 | CP.PCM.CON ---
History of Present Illness - History of Present Illness History of Present Illness: This patient who is 81 years of age. I was called on consultation to see the patient for abnormal kidney function. Patient apparently admitted with the chest pain and she require to go for cardiac cath yesterday and noted BUN/creatinine has been rising On the history from the intensive care unit as follow 81 Years old Female PMHx HTN, hyperlipidemia, CAD with multiple GA's, AICD-PPM, hypothyroidism and breast CA hx s/p mastectomy Admitted with NSTEMI (non-ST elevated myocardial infarction) Pt transfer to [facility] for cardiac cath yesterday This morning she had an episode of Left side chest tightness, resolved with sublingulat NTG x2 Patient is currently on Primacor drip , off heparin and NTG drip EKG done, no acute changes Now she feels well and is hemodynamically stable, Pt AAO x3. Alert, follows commands Denies any chest pain, SOB or Palpitations Afebrile, NSR on the monitor - Cardiac cath results: Left Heart Cath: Non-obstructive Right Heart Cath Hemodynamics: Right Atrium 15 PCWP 30 Pulmonary Arterial Pressure 80/40 with mean of 50 Cardiac Output 2.7 Review of Systems - Review of Systems All systems: reviewed and no additional remarkable complaints except - Constitutional Constitutional: absent: Chills - EENT Nose/Mouth/Throat: absent: Epistaxis - Cardiovascular Cardiovascular: absent: Acrocyanosis, Dyspnea - Respiratory Respiratory: absent: Cough, Dyspnea - Gastrointestinal Gastrointestinal: absent: Abdominal Pain - Musculoskeletal Musculoskeletal: Muscle Weakness - Neurological Neurological: absent: Confusion, Headaches - Hematologic/Lymphatic Hematologic: absent: Easy Bleeding Past Patient History - Infectious Disease Hx of Infectious Diseases: None - Tetanus Immunizations Tetanus Immunization: Unknown - Past Medical History & Family History Past Medical History?: Yes Past Family History: Reviewed and not pertinent - Past Social History Smoking Status: Former Smoker Chewing Tobacco Use: No Cigar Use: No Alcohol: None Drugs: Denies Home Situation {Lives}: With Family - CARDIAC Hx Cardia Arrhythmia: Yes Hx Congestive Heart Failure: Yes Hx Hypercholesterolemia: Yes Hx Hypertension: Yes Hx Pacemaker: Yes (AICD) - PULMONARY Hx Bronchitis: Yes Hx Chronic Obstructive Pulmonary Disease (COPD): Yes Hx Pneumonia: Yes - NEUROLOGICAL HX Cerebrovascular Accident: Yes Hx Transient Ischemic Attacks (TIA): Yes - HEENT Hx Cataracts: Yes (Extracted) - RENAL Hx Chronic Kidney Disease: No - ENDOCRINE/METABOLIC Hx Hypothyroidism: Yes - HEMATOLOGICAL/ONCOLOGICAL Hx Cancer: Yes (Breast) Hx Human Immunodeficiency Virus (HIV): No - INTEGUMENTARY Hx Dermatological Problems: No - MUSCULOSKELETAL/RHEUMATOLOGICAL Hx Arthritis: Yes Hx Osteoporosis: Yes - GASTROINTESTINAL Hx Gastrointestinal Disorders: No - GENITOURINARY/GYNECOLOGICAL Hx Incontinence: Yes - PSYCHIATRIC Hx Psychophysiologic Disorder: No Hx Substance Use: No - SURGICAL HISTORY Hx Angioplasty: Yes Hx Appendectomy: Yes Hx Cholecystectomy: Yes Hx Coronary Stent: Yes Hx Eye Surgery: Yes Hx Mastectomy: Yes - ANESTHESIA Hx Anesthesia: Yes Hx Anesthesia Reactions: No Hx Malignant Hyperthermia: No Meds Allergies/Adverse Reactions: Allergies Allergy/AdvReac Type Severity Reaction Status Date / Time No Known Allergies Allergy Verified 12/09/16 14:00 - Medications Medications: Current Medications Acetaminophen (Tylenol 325mg Tab) 650 mg PO Q6 PRN PRN Reason: Pain, moderate (4-7) Last Admin: 04/21/17 01:42 Dose: 650 mg Amiodarone HCl (Cordarone) 200 mg PO DAILY [facility] Last Admin: 04/21/17 08:50 Dose: 200 mg Anastrozole (Arimidex 1 Mg Tab) 1 mg PO DAILY [facility] Last Admin: 04/21/17 08:50 Dose: 1 mg Ascorbic Acid (Vitamin C 500 Mg Tab) 500 mg PO DAILY [facility] Last Admin: 04/21/17 08:53 Dose: 500 mg Aspirin (Ecotrin) 81 mg PO DAILY [facility] Last Admin: 04/21/17 08:51 Dose: 81 mg Atorvastatin Calcium (Lipitor) 20 mg PO HS [facility] Last Admin: 04/20/17 21:58 Dose: 20 mg Azithromycin (Zithromax) 500 mg PO DAILY [facility] Last Admin: 04/21/17 08:54 Dose: 500 mg Benzocaine/Menthol (Cepacol Sore Throat) 1 saumya PO Q3 PRN PRN Reason: Sore Throat Last Admin: 04/19/17 16:21 Dose: 1 saumya Calcium/Vitamin D (Oyster Shell Calcium/Vitamin D 500 Mg-200 Iu) 1 tab PO DAILY [facility] Last Admin: 04/21/17 08:53 Dose: 1 tab Cholecalciferol (Vitamin D) 1,000 intlu PO DAILY [facility] Last Admin: 04/21/17 08:54 Dose: 1,000 intlu Digoxin (Lanoxin) 0.125 mg PO DAILY [facility] Last Admin: 04/21/17 08:52 Dose: 0.125 mg Docusate Sodium (Colace) 100 mg PO BID PRN PRN Reason: Constipation Furosemide (Lasix) 40 mg IVP DAILY [facility] Heparin Sodium (Porcine) (Heparin) 5,000 units SC Q12 [facility] PRN Reason: Protocol Last Admin: 04/21/17 08:51 Dose: 5,000 units Ceftriaxone Sodium 1 gm/ (Sodium Chloride) 100 mls @ 100 mls/hr IVPB DAILY [facility] PRN Reason: Protocol Last Admin: 04/21/17 11:56 Dose: 100 mls/hr Milrinone Lactate/Dextrose (Primacor 20mg/100ml D5w) 100 mls @ 5.273 mls/hr IV .[id number] [facility]; 0.25 MCG/KG/MIN PRN Reason: Protocol Last Admin: 04/21/17 11:53 Dose: 0.25 mcg/kg/min, 5.273 mls/hr Dextrose/Sodium Chloride (Dextrose 5%/0.45% Ns 1000 Ml) 1,000 mls @ 50 mls/hr IV .Q20H [facility] Stop: 04/22/17 13:26 Levothyroxine Sodium (Synthroid) 25 mcg PO DAILY@0630 [facility] Last Admin: 04/21/17 05:42 Dose: 25 mcg Losartan Potassium (Cozaar) 25 mg PO DAILY [facility] Last Admin: 04/21/17 08:51 Dose: 25 mg Metoprolol Succinate (Toprol Xl) 50 mg PO DAILY [facility] Last Admin: 04/21/17 08:53 Dose: 50 mg Multivitamins/Minerals (Therapeutic-M Tab) 1 tab PO DAILY [facility] Last Admin: 04/21/17 08:53 Dose: 1 tab Nitroglycerin (Nitrostat Sl Tab) 0.4 mg SL Q5MIN PRN PRN Reason: chest pain Last Admin: 04/20/17 07:40 Dose: 0.4 mg Nitroglycerin (Nitro-Bid 2% Oint) 1 ea TOP QID [facility] Last Admin: 04/21/17 12:16 Dose: 1 ea Vitamin E (Vitamin E 400 Units Cap) 400 intlu PO DAILY [facility] Last Admin: 04/21/17 08:54 Dose: 400 intlu Physical Exam - Constitutional Appears: No Acute Distress - ENT Exam ENT Exam: Mucous Membranes Moist - Neck Exam Neck exam: Negative for: Lymphadenopathy - Respiratory Exam Respiratory Exam: NORMAL BREATHING PATTERN. absent: Chest Wall Tenderness - Cardiovascular Exam Cardiovascular Exam: REGULAR RHYTHM. absent: Rubs - GI/Abdominal Exam GI & Abdominal Exam: Normal Bowel Sounds. absent: Guarding - Extremities Exam Extremities exam: Negative for: calf tenderness - Back Exam Back exam: absent: CVA tenderness (L), CVA tenderness (R) - Neurological Exam Neurological exam: Alert - Psychiatric Exam Psychiatric exam: Normal Affect - Skin Skin Exam: Normal Color Results - Vital Signs Recent Vital Signs: Last Vital Signs Temp 98.3 F 04/21/17 12:00 Pulse 84 04/21/17 13:00 Resp 25 H 04/21/17 13:00 BP 122/57 L 04/21/17 13:00 Pulse Ox 95 04/21/17 13:00 - Labs Result Diagrams: 04/21/17 04:15 04/21/17 04:15 Labs: Laboratory Results - last 24 hr 04/21/17 04/21/17 04/21/17 04:15 04:15 09:57 WBC 10.4 RBC 3.83 Hgb 12.1 Hct 36.8 MCV 96.1 MCH 31.7 H MCHC 33.0 RDW 14.0 Plt Count 194 Sodium 135 Potassium 4.3 Chloride 97 L Carbon Dioxide 26 Anion Gap 16 BUN 41 H Creatinine 1.8 H Est GFR ( Amer) 33 Est GFR (Non-Af Amer) 27 Random Glucose 122 H Calcium 8.8 Total Bilirubin 0.4 AST 27 ALT 35 Alkaline Phosphatase 61 NT-Pro-B Natriuret Pep Total Protein 6.9 Albumin 3.7 Globulin 3.2 Albumin/Globulin Ratio 1.2 Urine Color Yellow Urine Clarity Turbid Urine pH 5.0 Ur Specific [place] 1.023 Urine Protein 30 Urine Glucose (UA) Neg Urine Ketones Negative Urine Blood Large Urine Nitrate Negative Urine Bilirubin Negative Urine Urobilinogen 0.2-1.0 Ur Leukocyte Esterase Trace Urine RBC (Auto) 458 H Urine Microscopic WBC 11 H Uric Acid Crystals Few H Urine Bacteria Rare Hyaline Casts 6-10 H 04/21/17 11:20 WBC RBC Hgb Hct MCV MCH MCHC RDW Plt Count Sodium Potassium Chloride Carbon Dioxide Anion Gap BUN Creatinine Est GFR ( Amer) Est GFR (Non-Af Amer) Random Glucose Calcium Total Bilirubin AST ALT Alkaline Phosphatase NT-Pro-B Natriuret Pep 980 H Total Protein Albumin Globulin Albumin/Globulin Ratio Urine Color Urine Clarity Urine pH Ur Specific [place] Urine Protein Urine Glucose (UA) Urine Ketones Urine Blood Urine Nitrate Urine Bilirubin Urine Urobilinogen Ur Leukocyte Esterase Urine RBC (Auto) Urine Microscopic WBC Uric Acid Crystals Urine Bacteria Hyaline Casts Assessment & Plan (1) GINNY (acute kidney injury) Assessment and Plan: Most likely acute kidney injury status post cardiac catheterization? I suggested give IV fluid D5 W and half-normal saline about 60 mL per hour for the next 24 hours and keep monitoring kidney function. Stat spot urine for sodium osmolality and creatinine We will do ultrasound of the kidney when her condition permitted to do so Initial urinalysis was negative we'll repeat one more urinalysis Status: Acute
[2017-04-21] MEDS: Dextrose 5%/0.45% NS 1,000 ML IV SCH (14:42)
[2017-04-21] MEDS: guaiFENesin DM 200 mg-20 mg/10 ml UD PO SCH ×2 (16:14→21:50)
[2017-04-21 18:05] LABS: CREATININE, RANDOM URINE 36.4 mg/dL
[2017-04-21 18:15] LABS: URINE BACTERIA RARE (<OCC); URINE BILIRUBIN NEGATIVE (NEGATIVE); URINE BLOOD MODERATE (NEGATIVE); URINE CLARITY SLIGHTY-CLOUDY (Clear); URINE COLOR STRAW (YELLOW); URINE GLUCOSE (UA) NEG (Normal); URINE LEUKOCYTE ESTERASE NEG Leu/uL (Negative); URINE NITRATE NEGATIVE (NEGATIVE); URINE PROTEIN NEGATIVE (NEGATIVE); URINE UROBILINOGEN 0.2-1.0 mg/dL (0.2-1.0)
[2017-04-22] MEDS: guaiFENesin DM 200 mg-20 mg/10 ml UD PO SCH ×6 (01:13→21:10)
[2017-04-22] MEDS: Levothyroxine 25 MCG TAB PO SCH (05:45)
[2017-04-22 05:59] LABS: BASO % 0.5 % (0.0-2.0); EOS % 0.2 % (0.0-4.0); HEMOGLOBIN 12.2 g/dL (12.0-16.0); LYMPH # 1.4 K/uL (1.0-4.3); LYMPH % 14.9 % (20.0-40.0); MEAN CELL VOLUME 95.8 fl (81.0-99.0); MEAN CORPUSCULAR HEMOGLOBIN 31.5 pg (27.0-31.0); MEAN CORPUSCULAR HGB CONC 32.9 g/dL (33.0-37.0); MEAN PLATELET VOLUME 9.7 fl (7.2-11.7); MONO # 1.7 K/uL (0.0-0.8); MONO % 17.7 % (0.0-10.0); NEUT # 6.3 K/uL (1.8-7.0); NEUT % 66.7 % (50.0-75.0); RBC 3.87 Mil/uL (3.80-5.20); RED CELL DISTRIBUTION WIDTH 13.7 % (11.5-14.5); WHITE BLOOD COUNT 9.5 K/uL (4.8-10.8)
[2017-04-22 07:32] LABS: ALB/GLOB RATIO 1.1 (1.0-2.1); ALBUMIN 3.6 g/dL (3.5-5.0); CALCIUM 8.7 mg/dL (8.4-10.2)
--- NOTE | 2017-04-22 09:25 | CP.PCM.PN ---
Subjective - Date & Time of Evaluation Date of Evaluation: 04/22/17 Time of Evaluation: 13:30 - Subjective Subjective: Patient seen and examined bedside. Feeling weak.Denies any chest pain or SOB . On Milrinone drip With episode of hematuria noted from Jovel overnight but at present draining clear urine . H& h stable BP 102/60 HR 65 Saturating 90-94 % on 2 L O2 via NC afebrile With dry coughing spells Objective - Vital Signs/Intake and Output Vital Signs (last 24 hours): Temp Pulse Resp BP Pulse Ox 97.6 F 76 11 L 143/51 L 95 04/22/17 04:00 04/22/17 06:00 04/22/17 06:00 04/22/17 06:00 04/22/17 06:00 Intake and Output: 04/22/17 04/22/17 06:59 18:59 Intake Total 630 Output Total 550 Balance 80 - Medications Medications: Current Medications Acetaminophen (Tylenol 325mg Tab) 650 mg PO Q6 PRN PRN Reason: Pain, moderate (4-7) Last Admin: 04/21/17 01:42 Dose: 650 mg Amiodarone HCl (Cordarone) 200 mg PO DAILY [facility] Last Admin: 04/21/17 08:50 Dose: 200 mg Anastrozole (Arimidex 1 Mg Tab) 1 mg PO DAILY [facility] Last Admin: 04/21/17 08:50 Dose: 1 mg Ascorbic Acid (Vitamin C 500 Mg Tab) 500 mg PO DAILY [facility] Last Admin: 04/21/17 08:53 Dose: 500 mg Aspirin (Ecotrin) 81 mg PO DAILY [facility] Last Admin: 04/21/17 08:51 Dose: 81 mg Atorvastatin Calcium (Lipitor) 20 mg PO HS [facility] Last Admin: 04/21/17 21:50 Dose: 20 mg Azithromycin (Zithromax) 500 mg PO DAILY [facility] Last Admin: 04/21/17 08:54 Dose: 500 mg Benzocaine/Menthol (Cepacol Sore Throat) 1 saumya PO Q3 PRN PRN Reason: Sore Throat Last Admin: 04/19/17 16:21 Dose: 1 saumya Calcium/Vitamin D (Oyster Shell Calcium/Vitamin D 500 Mg-200 Iu) 1 tab PO DAILY [facility] Last Admin: 04/21/17 08:53 Dose: 1 tab Cholecalciferol (Vitamin D) 1,000 intlu PO DAILY [facility] Last Admin: 04/21/17 08:54 Dose: 1,000 intlu Digoxin (Lanoxin) 0.125 mg PO DAILY [facility] Last Admin: 04/21/17 08:52 Dose: 0.125 mg Docusate Sodium (Colace) 100 mg PO BID PRN PRN Reason: Constipation Furosemide (Lasix) 40 mg IVP DAILY [facility] Guaifenesin/Dextromethorphan (Robitussin Dm) 10 ml PO Q4 [facility] Last Admin: 04/22/17 05:45 Dose: 10 ml Ceftriaxone Sodium 1 gm/ (Sodium Chloride) 100 mls @ 100 mls/hr IVPB DAILY [facility] PRN Reason: Protocol Last Admin: 04/21/17 11:56 Dose: 100 mls/hr Dextrose/Sodium Chloride (Dextrose 5%/0.45% Ns 1000 Ml) 1,000 mls @ 50 mls/hr IV .Q20H [facility] Stop: 04/22/17 13:26 Last Admin: 04/21/17 14:42 Dose: 50 mls/hr Milrinone Lactate/Dextrose (Primacor 20mg/100ml D5w) 100 mls @ 2.637 mls/hr IV .Q24H [facility]; 0.125 MCG/KG/MIN PRN Reason: Protocol Last Admin: 04/21/17 14:43 Dose: 0.125 mcg/kg/min, 2.637 mls/hr Levothyroxine Sodium (Synthroid) 25 mcg PO DAILY@0630 [facility] Last Admin: 04/22/17 05:45 Dose: 25 mcg Losartan Potassium (Cozaar) 25 mg PO DAILY [facility] Last Admin: 04/21/17 08:51 Dose: 25 mg Metoprolol Succinate (Toprol Xl) 50 mg PO DAILY [facility] Last Admin: 04/21/17 08:53 Dose: 50 mg Multivitamins/Minerals (Therapeutic-M Tab) 1 tab PO DAILY [facility] Last Admin: 04/21/17 08:53 Dose: 1 tab Nitroglycerin (Nitrostat Sl Tab) 0.4 mg SL Q5MIN PRN PRN Reason: chest pain Last Admin: 04/20/17 07:40 Dose: 0.4 mg Nitroglycerin (Nitro-Bid 2% Oint) 1 ea TOP QID [facility] Last Admin: 04/21/17 21:50 Dose: 1 ea Vitamin E (Vitamin E 400 Units Cap) 400 intlu PO DAILY [facility] Last Admin: 04/21/17 08:54 Dose: 400 intlu - Labs Labs: 04/22/17 04:45 04/22/17 04:45 PT 11.2 Seconds (9.8-13.1) 04/17/17 17:10 INR 1.0 (0.9-1.2) 04/17/17 17:10 APTT 97.6 Seconds (25.6-37.1) H D 04/19/17 02:15 - Constitutional Appears: Non-toxic, No Acute Distress, Other (appears weak ) - Head Exam Head Exam: ATRAUMATIC, NORMOCEPHALIC - Eye Exam Eye Exam: EOMI, PERRL Pupil Exam: NORMAL ACCOMODATION - ENT Exam ENT Exam: Mucous Membranes Moist, Normal Exam - Neck Exam Neck Exam: Full ROM, Normal Inspection - Respiratory Exam Respiratory Exam: NORMAL BREATHING PATTERN. absent: Rhonchi, Wheezes, Respiratory Distress - Cardiovascular Exam Cardiovascular Exam: REGULAR RHYTHM, RRR, +S1, +S2. absent: JVD - GI/Abdominal Exam GI & Abdominal Exam: Soft, Normal Bowel Sounds. absent: Distended, Guarding, Rebound - Rectal Exam Rectal Exam: Deferred - Extremities Exam Extremities Exam: Normal Capillary Refill, Normal Inspection. absent: Calf Tenderness, Pedal Edema - Neurological Exam Neurological Exam: Alert, Awake, CN II-XII Intact, Oriented x3 - Psychiatric Exam Psychiatric exam: Flat Affect - Skin Skin Exam: Dry, Warm Assessment and Plan - Assessment and Plan (Free Text) Assessment: 81 y/o female with PMH of Cardiomyopathy s/p AICD, Arrhythmia s/p Ablation, CAD, CVA, COPD, Hypothyroidism, HTN, Hyperlipidemia,history of breast cancer s/ p left mastectomy , came in bec of left arm discomfort and some SOB. CXR showed Pulm Vascular congestion. Troponin were positive up to 3.0 Patient was admitted to ICU and started on heparin drip. Cardiology and pulmonary consulted. Her troponins trended down to 0.69 Went for cardiac cath 04/19 @ that showed diffuse artherosclerotic disease non obstructive ,20 % high pulmonary artery pressures 50. Started on Milrinone and Nitro drip as per cardiology. Clinically improving , with generalized weakness With episode of hematuria overnight 1.NSTEMI (non-ST elevated myocardial infarction) Acute admitted with elevated Trop 3 that trended down 0.69 Cardiac Cath done 04/19 : diffuse artherosclerotic disease , non obstructive,EF 20 % , elevated Pulmonary artery pressure of 50 continue metoprolol ASA, Statin, BB and ARB cardiology following 2. Systolic and diastolic CHF, acute on chronic Pulmonary HTN, severe EF 20% as reported by cardiac cath cont BB and ARB On Milrinone drip as rec by Dr Da Silva. Decreased to 0.125 mcg. discussed with cardiology . plan is to d/c Milrinone drip and nitro and start Sildenafil cont 40mg bid Lasix cont Amiodarone and Digoxin 3. COPD (chronic obstructive pulmonary disease), stable Chronic Duoneb prn Dr Gomez following pt 4.Hypothyroidism Chronic cont Levothyroxine 5. Leukocytosis and Cough unclear etiology-- leukocytosis now resolved however still with cough pt has no fever worsening of cough may be sec to ? Milrinone ( SE of bronchospasm) empirically started by Dr Gomez on IV Ceftriaxone and Azithro CXR 04/20 : no infiltrates continue Robitussin, cont Bronchodilators Influenza: negative 6. Acute Kidney Injury prob prerenal on CKD Stage III improving Cr 1.4 likely due to diuretics , pt also had cardiac cath hold off on Aldactone Nephrology consulted: Dr Powell 7. Hematuria Most likley traumatic Heparin on hold Jovel draining clear urine today and H& H stable urology consulted 8. DVT prophylaxis Heparin on hold due to hematuria
[2017-04-22] MEDS: Nitroglycerin 2% Ointment Foilpak UD TOP SCH ×4 (09:39→21:44)
[2017-04-22] MEDS: Digoxin 125 mcg (0.125 mg) Tab PO SCH (09:40)
[2017-04-22] MEDS: Calcium-Vit D 500 mg-200 Units Tab UD PO SCH (09:40)
[2017-04-22] MEDS: Cholecalciferol 1,000 INTLU TAB PO SCH (09:40)
[2017-04-22] MEDS: Multivitamin With Minerals Tab PO SCH (09:41)
[2017-04-22] MEDS: Dextrose 5%/0.45% NS 1,000 ML IV SCH (09:43)
[2017-04-22] MEDS: Metoprolol Succinate 50 mg XL Tab PO SCH (09:44)
--- NOTE | 2017-04-22 10:58 | CP.PCM.PN ---
Subjective - Date & Time of Evaluation Date of Evaluation: 04/22/17 Time of Evaluation: 10:56 - Subjective Subjective: Patient and bed awake Kidney function improving Serum creatinine coming down Patient sitting up in bed No nausea no vomiting Objective - Vital Signs/Intake and Output Vital Signs (last 24 hours): Temp Pulse Resp BP Pulse Ox 97.6 F 80 11 L 123/88 95 04/22/17 04:00 04/22/17 09:44 04/22/17 06:00 04/22/17 09:44 04/22/17 06:00 Intake and Output: 04/22/17 04/22/17 06:59 18:59 Intake Total 630 Output Total 550 Balance 80 - Medications Medications: Current Medications Acetaminophen (Tylenol 325mg Tab) 650 mg PO Q6 PRN PRN Reason: Pain, moderate (4-7) Last Admin: 04/21/17 01:42 Dose: 650 mg Amiodarone HCl (Cordarone) 200 mg PO DAILY [facility] Last Admin: 04/22/17 09:40 Dose: 200 mg Anastrozole (Arimidex 1 Mg Tab) 1 mg PO DAILY [facility] Last Admin: 04/22/17 09:43 Dose: 1 mg Ascorbic Acid (Vitamin C 500 Mg Tab) 500 mg PO DAILY [facility] Last Admin: 04/22/17 09:40 Dose: 500 mg Aspirin (Ecotrin) 81 mg PO DAILY [facility] Last Admin: 04/22/17 09:58 Dose: Not Given Atorvastatin Calcium (Lipitor) 20 mg PO HS [facility] Last Admin: 04/21/17 21:50 Dose: 20 mg Azithromycin (Zithromax) 500 mg PO DAILY [facility] Last Admin: 04/22/17 09:39 Dose: 500 mg Benzocaine/Menthol (Cepacol Sore Throat) 1 saumya PO Q3 PRN PRN Reason: Sore Throat Last Admin: 04/19/17 16:21 Dose: 1 saumya Calcium/Vitamin D (Oyster Shell Calcium/Vitamin D 500 Mg-200 Iu) 1 tab PO DAILY [facility] Last Admin: 04/22/17 09:40 Dose: 1 tab Cholecalciferol (Vitamin D) 1,000 intlu PO DAILY [facility] Last Admin: 04/22/17 09:40 Dose: 1,000 intlu Digoxin (Lanoxin) 0.125 mg PO DAILY [facility] Last Admin: 04/22/17 09:40 Dose: 0.125 mg Docusate Sodium (Colace) 100 mg PO BID PRN PRN Reason: Constipation Furosemide (Lasix) 40 mg IVP DAILY [facility] Last Admin: 04/22/17 09:41 Dose: 40 mg Guaifenesin/Dextromethorphan (Robitussin Dm) 10 ml PO Q4 [facility] Last Admin: 04/22/17 09:44 Dose: 10 ml Ceftriaxone Sodium 1 gm/ (Sodium Chloride) 100 mls @ 100 mls/hr IVPB DAILY [facility] PRN Reason: Protocol Last Admin: 04/22/17 09:38 Dose: 100 mls/hr Dextrose/Sodium Chloride (Dextrose 5%/0.45% Ns 1000 Ml) 1,000 mls @ 50 mls/hr IV .Q20H [facility] Stop: 04/22/17 13:26 Last Admin: 04/22/17 09:43 Dose: 50 mls/hr Milrinone Lactate/Dextrose (Primacor 20mg/100ml D5w) 100 mls @ 2.637 mls/hr IV .Q24H [facility]; 0.125 MCG/KG/MIN PRN Reason: Protocol Last Admin: 04/21/17 14:43 Dose: 0.125 mcg/kg/min, 2.637 mls/hr Levothyroxine Sodium (Synthroid) 25 mcg PO DAILY@0630 [facility] Last Admin: 04/22/17 05:45 Dose: 25 mcg Losartan Potassium (Cozaar) 25 mg PO DAILY [facility] Last Admin: 04/22/17 09:41 Dose: 25 mg Metoprolol Succinate (Toprol Xl) 50 mg PO DAILY [facility] Last Admin: 04/22/17 09:44 Dose: 50 mg Multivitamins/Minerals (Therapeutic-M Tab) 1 tab PO DAILY [facility] Last Admin: 04/22/17 09:41 Dose: 1 tab Nitroglycerin (Nitrostat Sl Tab) 0.4 mg SL Q5MIN PRN PRN Reason: chest pain Last Admin: 04/20/17 07:40 Dose: 0.4 mg Nitroglycerin (Nitro-Bid 2% Oint) 1 ea TOP QID [facility] Last Admin: 04/22/17 09:39 Dose: 1 ea Vitamin E (Vitamin E 400 Units Cap) 400 intlu PO DAILY [facility] Last Admin: 04/22/17 09:39 Dose: 400 intlu - Labs Labs: 04/22/17 04:45 04/22/17 04:45 PT 11.2 Seconds (9.8-13.1) 04/17/17 17:10 INR 1.0 (0.9-1.2) 04/17/17 17:10 APTT 97.6 Seconds (25.6-37.1) H D 04/19/17 02:15 - Constitutional Appears: No Acute Distress - ENT Exam ENT Exam: Mucous Membranes Moist - Neck Exam Neck Exam: absent: Lymphadenopathy - Respiratory Exam Respiratory Exam: absent: Chest Wall Tenderness - Cardiovascular Exam Cardiovascular Exam: REGULAR RHYTHM. absent: Rubs - GI/Abdominal Exam GI & Abdominal Exam: Soft, Normal Bowel Sounds - Extremities Exam Extremities Exam: absent: Calf Tenderness - Back Exam Back Exam: absent: CVA tenderness (L), CVA tenderness (R) - Neurological Exam Neurological Exam: Alert - Psychiatric Exam Psychiatric exam: Normal Affect - Skin Skin Exam: absent: Cyanosis Assessment and Plan (1) GINNY (acute kidney injury) Assessment & Plan: Kidney function improving patient having acute kidney injury. To be recovering status post cardiac catheterization Patient was given intravenous fluid probably no need for it anymore Coronary artery disease as noted by the primary team and the cardiology Status: Acute
--- NOTE | 2017-04-22 13:20 | CP.CCUPN ---
CCU Subjective - Physician Review Subjective (Free Text): Awake and alert, appears depressed, had gross hematuria overnight, denies any new / recurrent anginal symptoms, on low dose Primacor. ROS: No other pertinent negs or positives on 10+ system review. PMSFH: [place] x 5, 1st in 1982, denies any h/o of PCI / Stents. AICD- PPM placed last year. H/o Breast ca with left Mastectomy, Hypothyroidism, Hyperlipidemia, HTN. Past smoker, denies ETOH use. All other Nursing and physician documentation reviewed to date; no new pertinent info noted relevant to current medical problems. IMPRESSION / MAJOR PROBLEMS NOW: 1. ACS with NSTEMI 2. Mild decompensated Cardiomyopathy with L- CHF, severe MR and DD dysfx as last reported on ECHO Nov 2016. 3. CKD III PLAN: 1. Primacor fixed dose infusion as per Cardio. Watch for any Digoixin / Amiodarone interaction. 2. Serial BNP level lower compared to admission. Would dose Lasix prn. 3. Mobilize OOB to chair. 4. Stable for Transfer to [facility] bed, out of ICU. CCU Objective - Vital Signs / Intake & Output Vital Signs (Last 4 hours): Vital Signs Temp Pulse Resp BP Pulse Ox 04/22/17 12:00 98.1 F 73 22 105/49 L 90 L 04/22/17 09:44 80 123/88 04/22/17 09:41 80 123/88 04/22/17 09:40 80 123/88 04/22/17 09:39 80 123/88 Intake and Output (Last 8hrs): Intake & Output 04/21/17 04/22/17 04/22/17 22:59 06:59 14:59 Intake Total 410 420 Output Total 800 550 Balance -390 -130 Weight 150 lb Intake: IV 400 400 Intake, Piggyback 10 20 Output: Urine 800 550 Urethral (Jovel) 800 550 - Physical Exam Head: Positive for: Normocephalic Pupils: Positive for: PERRL Extroacular Muscles: Positive for: EOMI Conjunctiva: Positive for: Normal Mouth: Positive for: Moist Mucous Membranes Pharnyx: Positive for: Normal Neck: Negative for: JVD, Lymphadenopathy Respiratory/Chest: Positive for: Clear to Auscultation, Rales (basilar bilateral rales) Cardiovascular: Positive for: Regular Rate and Rhythm, Murmurs. Negative for: Rub Abdomen: Positive for: Normal Bowel Sounds, Mass/Organomegaly. Negative for: Tenderness, Distention Lower Extremity: Positive for: Normal Inspection, NORMAL PULSES. Negative for: Edema, CALF TENDERNESS, Cyanosis Neurological: Positive for: GCS=15, Motor Func Grossly Intact, Normal Sensory Function Skin: Positive for: Warm, Dry. Negative for: Rashes Psychiatric: Positive for: Alert, Oriented x 3 - Medications Active Medications: Active Medications Generic Name Dose Route Start Last Admin Trade Name Freq PRN Reason Stop Dose Admin Acetaminophen 650 mg 04/16/17 08:26 04/21/17 01:42 Tylenol 325mg Tab PO 650 mg Q6 PRN Administration Pain, moderate (4-7) Amiodarone HCl 200 mg 04/17/17 09:00 04/22/17 09:40 Cordarone PO 200 mg DAILY YUVAL Administration Anastrozole 1 mg 04/15/17 12:15 04/22/17 09:43 Arimidex 1 Mg Tab PO 1 mg DAILY YUVAL Administration Ascorbic Acid 500 mg 04/15/17 13:15 04/22/17 09:40 Vitamin C 500 Mg Tab PO 500 mg DAILY YUVAL Administration Aspirin 81 mg 04/15/17 12:15 04/22/17 09:58 Ecotrin PO Not Given DAILY [facility] Atorvastatin Calcium 20 mg 04/15/17 22:00 04/21/17 21:50 Lipitor PO 20 mg HS YUVAL Administration Azithromycin 500 mg 04/21/17 09:00 04/22/17 09:39 Zithromax PO 500 mg DAILY YUVAL Administration Benzocaine/Menthol 1 saumya 04/17/17 16:09 04/19/17 16:21 Cepacol Sore Throat PO 1 saumya Q3 PRN Administration Sore Throat Calcium/Vitamin D 1 tab 04/15/17 13:15 04/22/17 09:40 Oyster Shell Calcium/Vitamin D 500 Mg-200 Iu PO 1 tab DAILY YUVAL Administration Cholecalciferol 1,000 intlu 04/15/17 12:15 04/22/17 09:40 Vitamin D PO 1,000 intlu DAILY YUVAL Administration Digoxin 0.125 mg 04/21/17 09:00 04/22/17 09:40 Lanoxin PO 0.125 mg DAILY YUVAL Administration Docusate Sodium 100 mg 04/15/17 11:50 Colace PO BID PRN Constipation Furosemide 40 mg 04/22/17 09:00 04/22/17 09:41 Lasix IVP 40 mg DAILY YUVAL Administration Guaifenesin/Dextromethorphan 10 ml 04/21/17 17:00 04/22/17 09:44 Robitussin Dm PO 10 ml Q4 YUVAL Administration Ceftriaxone Sodium 1 gm/ 100 mls @ 100 mls/hr 04/16/17 09:15 04/22/17 09:38 Sodium Chloride IVPB 100 mls/hr DAILY YUVAL Administration Protocol Dextrose/Sodium Chloride 1,000 mls @ 50 mls/hr 04/21/17 13:30 04/22/17 09:43 Dextrose 5%/0.45% Ns 1000 Ml IV 04/22/17 13:26 50 mls/hr .Q20H YUVAL Administration Milrinone Lactate/Dextrose 100 mls @ 2.637 mls/hr 04/21/17 13:57 04/21/17 14: 43 Primacor 20mg/100ml D5w IV 0.125 mcg/kg/min .Q24H YUVAL 2.637 mls/hr Protocol Administration 0.125 MCG/KG/MIN Levothyroxine Sodium 25 mcg 04/16/17 06:30 04/22/17 05:45 Synthroid PO 25 mcg DAILY@0630 YUVAL Administration Losartan Potassium 25 mg 04/15/17 12:15 04/22/17 09:41 Cozaar PO 25 mg DAILY YUVAL Administration Metoprolol Succinate 50 mg 04/17/17 09:00 04/22/17 09:44 Toprol Xl PO 50 mg DAILY YUVAL Administration Multivitamins/Minerals 1 tab 04/15/17 13:15 04/22/17 09:41 Therapeutic-M Tab PO 1 tab DAILY YUVAL Administration Nitroglycerin 0.4 mg 04/15/17 12:01 04/20/17 07:40 Nitrostat Sl Tab SL 0.4 mg Q5MIN PRN Administration chest pain Nitroglycerin 1 ea 04/15/17 22:00 04/22/17 09:39 Nitro-Bid 2% Oint TOP 1 ea QID YUVAL Administration Vitamin E 400 intlu 04/15/17 12:15 04/22/17 09:39 Vitamin E 400 Units Cap PO 400 intlu DAILY YUVAL Administration - Patient Studies Lab Studies: Lab Studies 04/22/17 04/22/17 04/21/17 Range/Units 04:45 04:45 17:00 WBC 9.5 (4.8-10.8) K/uL RBC 3.87 (3.80-5.20) Mil/uL Hgb 12.2 (12.0-16.0) g/dL Hct 37.0 (34.0-47.0) % MCV 95.8 (81.0-99.0) fl MCH 31.5 H (27.0-31.0) pg MCHC 32.9 L (33.0-37.0) g/dL RDW 13.7 (11.5-14.5) % Plt Count 201 (130-400) K/uL MPV 9.7 (7.2-11.7) fl Neut % (Auto) 66.7 (50.0-75.0) % Lymph % (Auto) 14.9 L (20.0-40.0) % [place] % (Auto) 17.7 H (0.0-10.0) % Eos % (Auto) 0.2 (0.0-4.0) % Baso % (Auto) 0.5 (0.0-2.0) % Neut # (Auto) 6.3 (1.8-7.0) K/uL Lymph # (Auto) 1.4 (1.0-4.3) K/uL [place] # (Auto) 1.7 H (0.0-0.8) K/uL Eos # (Auto) 0.0 (0.0-0.7) K/uL Baso # (Auto) 0.0 (0.0-0.2) K/uL Sodium 134 (132-148) mmol/l Potassium 4.1 (3.6-5.0) MMOL/L Chloride 96 L (98-107) mmol/L Carbon Dioxide 25 (22-30) mmol/L Anion Gap 17 (10-20) BUN 34 H (7-17) mg/dl Creatinine 1.4 H (0.7-1.2) mg/dl Est GFR ( Amer) 44 Est GFR (Non-Af Amer) 36 Random Glucose 111 H (65-105) mg/dL Calcium 8.7 (8.4-10.2) mg/dL Total Bilirubin 0.5 (0.2-1.3) mg/dl AST 29 (14-36) U/L ALT 26 (9-52) U/L Alkaline Phosphatase 63 (38-126) U/L Total Protein 7.1 (6.3-8.2) G/DL Albumin 3.6 (3.5-5.0) g/dL Globulin 3.4 (2.2-3.9) gm/dL Albumin/Globulin Ratio 1.1 (1.0-2.1) Urine Color Straw (YELLOW) Urine Clarity Slighty-cloudy (Clear) Urine pH 5.0 (5.0-8.0) Ur Specific [place] 1.009 (1.003-1.030) Urine Protein Negative (NEGATIVE) mg/dL Urine Glucose (UA) Neg (Normal) mg/dL Urine Ketones Negative (NEGATIVE) mg/dL Urine Blood Moderate (NEGATIVE) Urine Nitrate Negative (NEGATIVE) Urine Bilirubin Negative (NEGATIVE) Urine Urobilinogen 0.2-1.0 (0.2-1.0) mg/dL Ur Leukocyte Esterase Neg (Negative) Kj/uL Urine RBC (Auto) 30 H (0-3) /hpf Urine Microscopic WBC 1 (0-5) /hpf Urine Bacteria Rare (<OCC) Hyaline Casts 3-5 H (0-2) /hpf Urine Osmolality (300-1000) mosm/kg Ur Random Creatinine mg/dL Ur Random Sodium mmol/L 04/21/17 Range/Units 17:00 WBC (4.8-10.8) K/uL RBC (3.80-5.20) Mil/uL Hgb (12.0-16.0) g/dL Hct (34.0-47.0) % MCV (81.0-99.0) fl MCH (27.0-31.0) pg MCHC (33.0-37.0) g/dL RDW (11.5-14.5) % Plt Count (130-400) K/uL MPV (7.2-11.7) fl Neut % (Auto) (50.0-75.0) % Lymph % (Auto) (20.0-40.0) % [place] % (Auto) (0.0-10.0) % Eos % (Auto) (0.0-4.0) % Baso % (Auto) (0.0-2.0) % Neut # (Auto) (1.8-7.0) K/uL Lymph # (Auto) (1.0-4.3) K/uL [place] # (Auto) (0.0-0.8) K/uL Eos # (Auto) (0.0-0.7) K/uL Baso # (Auto) (0.0-0.2) K/uL Sodium (132-148) mmol/l Potassium (3.6-5.0) MMOL/L Chloride (98-107) mmol/L Carbon Dioxide (22-30) mmol/L Anion Gap (10-20) BUN (7-17) mg/dl Creatinine (0.7-1.2) mg/dl Est GFR ( Amer) Est GFR (Non-Af Amer) Random Glucose (65-105) mg/dL Calcium (8.4-10.2) mg/dL Total Bilirubin (0.2-1.3) mg/dl AST (14-36) U/L ALT (9-52) U/L Alkaline Phosphatase (38-126) U/L Total Protein (6.3-8.2) G/DL Albumin (3.5-5.0) g/dL Globulin (2.2-3.9) gm/dL Albumin/Globulin Ratio (1.0-2.1) Urine Color (YELLOW) Urine Clarity (Clear) Urine pH (5.0-8.0) Ur Specific [place] (1.003-1.030) Urine Protein (NEGATIVE) mg/dL Urine Glucose (UA) (Normal) mg/dL Urine Ketones (NEGATIVE) mg/dL Urine Blood (NEGATIVE) Urine Nitrate (NEGATIVE) Urine Bilirubin (NEGATIVE) Urine Urobilinogen (0.2-1.0) mg/dL Ur Leukocyte Esterase (Negative) Kj/uL Urine RBC (Auto) (0-3) /hpf Urine Microscopic WBC (0-5) /hpf Urine Bacteria (<OCC) Hyaline Casts (0-2) /hpf Urine Osmolality 357 (300-1000) mosm/kg Ur Random Creatinine 36.4 mg/dL Ur Random Sodium 96 mmol/L Laboratory Results - last 24 hr 04/21/17 04/21/17 04/22/17 17:00 17:00 04:45 WBC 9.5 RBC 3.87 Hgb 12.2 Hct 37.0 MCV 95.8 MCH 31.5 H MCHC 32.9 L RDW 13.7 Plt Count 201 MPV 9.7 Neut % (Auto) 66.7 Lymph % (Auto) 14.9 L [place] % (Auto) 17.7 H Eos % (Auto) 0.2 Baso % (Auto) 0.5 Neut # (Auto) 6.3 Lymph # (Auto) 1.4 [place] # (Auto) 1.7 H Eos # (Auto) 0.0 Baso # (Auto) 0.0 Sodium Potassium Chloride Carbon Dioxide Anion Gap BUN Creatinine Est GFR ( Amer) Est GFR (Non-Af Amer) Random Glucose Calcium Total Bilirubin AST ALT Alkaline Phosphatase Total Protein Albumin Globulin Albumin/Globulin Ratio Urine Color Straw Urine Clarity Slighty-cloudy Urine pH 5.0 Ur Specific [place] 1.009 Urine Protein Negative Urine Glucose (UA) Neg Urine Ketones Negative Urine Blood Moderate Urine Nitrate Negative Urine Bilirubin Negative Urine Urobilinogen 0.2-1.0 Ur Leukocyte Esterase Neg Urine RBC (Auto) 30 H Urine Microscopic WBC 1 Urine Bacteria Rare Hyaline Casts 3-5 H Urine Osmolality 357 Ur Random Creatinine 36.4 Ur Random Sodium 96 04/22/17 04:45 WBC RBC Hgb Hct MCV MCH MCHC RDW Plt Count MPV Neut % (Auto) Lymph % (Auto) [place] % (Auto) Eos % (Auto) Baso % (Auto) Neut # (Auto) Lymph # (Auto) [place] # (Auto) Eos # (Auto) Baso # (Auto) Sodium 134 Potassium 4.1 Chloride 96 L Carbon Dioxide 25 Anion Gap 17 BUN 34 H Creatinine 1.4 H Est GFR ( Amer) 44 Est GFR (Non-Af Amer) 36 Random Glucose 111 H Calcium 8.7 Total Bilirubin 0.5 AST 29 ALT 26 Alkaline Phosphatase 63 Total Protein 7.1 Albumin 3.6 Globulin 3.4 Albumin/Globulin Ratio 1.1 Urine Color Urine Clarity Urine pH Ur Specific [place] Urine Protein Urine Glucose (UA) Urine Ketones Urine Blood Urine Nitrate Urine Bilirubin Urine Urobilinogen Ur Leukocyte Esterase Urine RBC (Auto) Urine Microscopic WBC Urine Bacteria Hyaline Casts Urine Osmolality Ur Random Creatinine Ur Random Sodium Review of Systems - Review of Systems All systems: reviewed and no additional remarkable complaints except (as above) Critical Care Progress Note - Nutrition Nutrition: Nutrition Category Date Time Status Heart Healthy Diet [DIET] Diets 04/19/17 Lunch Active
--- NOTE | 2017-04-22 16:42 | CP.PCM.PN ---
<AllanSukh - Last Filed: 04/22/17 16:39> Subjective - Date & Time of Evaluation Date of Evaluation: 04/22/17 Time of Evaluation: 16:39 - Subjective Subjective: Cardiology progress note for Dr. Da Silva Patient seen and examined at bedside. She states that she has been having trouble voiding but was able to go today. She does state that she feels lethargic today, but denies any chest pain or shortness of breath. Objective - Vital Signs/Intake and Output Vital Signs (last 24 hours): Temp Pulse Resp BP Pulse Ox 98.4 F 66 19 100/50 L 94 L 04/22/17 16:00 04/22/17 16:18 04/22/17 16:00 04/22/17 16:18 04/22/17 16:00 Intake and Output: 04/22/17 04/22/17 06:59 18:59 Intake Total 630 Output Total 550 Balance 80 - Medications Medications: Current Medications Acetaminophen (Tylenol 325mg Tab) 650 mg PO Q6 PRN PRN Reason: Pain, moderate (4-7) Last Admin: 04/21/17 01:42 Dose: 650 mg Amiodarone HCl (Cordarone) 200 mg PO DAILY [facility] Last Admin: 04/22/17 09:40 Dose: 200 mg Anastrozole (Arimidex 1 Mg Tab) 1 mg PO DAILY [facility] Last Admin: 04/22/17 09:43 Dose: 1 mg Ascorbic Acid (Vitamin C 500 Mg Tab) 500 mg PO DAILY [facility] Last Admin: 04/22/17 09:40 Dose: 500 mg Aspirin (Ecotrin) 81 mg PO DAILY [facility] Last Admin: 04/22/17 09:58 Dose: Not Given Atorvastatin Calcium (Lipitor) 20 mg PO HS [facility] Last Admin: 04/21/17 21:50 Dose: 20 mg Azithromycin (Zithromax) 500 mg PO DAILY [facility] Last Admin: 04/22/17 09:39 Dose: 500 mg Benzocaine/Menthol (Cepacol Sore Throat) 1 saumya PO Q3 PRN PRN Reason: Sore Throat Last Admin: 04/19/17 16:21 Dose: 1 saumya Calcium/Vitamin D (Oyster Shell Calcium/Vitamin D 500 Mg-200 Iu) 1 tab PO DAILY [facility] Last Admin: 04/22/17 09:40 Dose: 1 tab Cholecalciferol (Vitamin D) 1,000 intlu PO DAILY [facility] Last Admin: 04/22/17 09:40 Dose: 1,000 intlu Digoxin (Lanoxin) 0.125 mg PO DAILY YUVAL Last Admin: 04/22/17 09:40 Dose: 0.125 mg Docusate Sodium (Colace) 100 mg PO BID PRN PRN Reason: Constipation Furosemide (Lasix) 40 mg IVP DAILY [facility] Last Admin: 04/22/17 09:41 Dose: 40 mg Guaifenesin/Dextromethorphan (Robitussin Dm) 10 ml PO Q4 YUVAL Last Admin: 04/22/17 16:20 Dose: 10 ml Ceftriaxone Sodium 1 gm/ (Sodium Chloride) 100 mls @ 100 mls/hr IVPB DAILY YUVAL PRN Reason: Protocol Last Admin: 04/22/17 09:38 Dose: 100 mls/hr Milrinone Lactate/Dextrose (Primacor 20mg/100ml D5w) 100 mls @ 2.637 mls/hr IV .Q24H YUVAL; 0.125 MCG/KG/MIN PRN Reason: Protocol Last Admin: 04/21/17 14:43 Dose: 0.125 mcg/kg/min, 2.637 mls/hr Levothyroxine Sodium (Synthroid) 25 mcg PO DAILY@0630 [facility] Last Admin: 04/22/17 05:45 Dose: 25 mcg Losartan Potassium (Cozaar) 25 mg PO DAILY [facility] Last Admin: 04/22/17 09:41 Dose: 25 mg Metoprolol Succinate (Toprol Xl) 50 mg PO DAILY [facility] Last Admin: 04/22/17 09:44 Dose: 50 mg Multivitamins/Minerals (Therapeutic-M Tab) 1 tab PO DAILY [facility] Last Admin: 04/22/17 09:41 Dose: 1 tab Nitroglycerin (Nitrostat Sl Tab) 0.4 mg SL Q5MIN PRN PRN Reason: chest pain Last Admin: 04/20/17 07:40 Dose: 0.4 mg Nitroglycerin (Nitro-Bid 2% Oint) 1 ea TOP QID [facility] Last Admin: 04/22/17 16:18 Dose: 1 ea Vitamin E (Vitamin E 400 Units Cap) 400 intlu PO DAILY [facility] Last Admin: 04/22/17 09:39 Dose: 400 intlu - Labs Labs: 04/22/17 04:45 04/22/17 04:45 PT 11.2 Seconds (9.8-13.1) 04/17/17 17:10 INR 1.0 (0.9-1.2) 04/17/17 17:10 APTT 97.6 Seconds (25.6-37.1) H D 04/19/17 02:15 - Additional Findings Additional findings: Physical Exam: Vital Signs as below Const'l: awake alert & oriented x 4, no acute distress Head/Neck: neck supple, no jvd, trachea midline, carotid midline, no cervical/head mass Eyes: pupils equally reactive to light and accommodation, nonicteric sclera, extraocular intact ENT: auditory acuity grossly intact, throat not congested, no nasal deformity Cardio: regular rate, regular rhythm, no murmurs rubs gallops, no carotid bruit, normal s1, s2 Pulm: +Nasal Cannula 2L; no accessory muscle use, equal normal breath sounds bilaterally, clear to ausculation bilaterally Abd: soft non tender non-distended, normal bowel sounds x 4 quadrants, no palpable masses Derm: no rashes, no ulcers, no lesions Extr: +Cath site is clean/dry/intact; no edema, no cyanosis, no calf tenderness, no lesions, no varicosities Neuro: cranial nerves II-XII grossly intact, upper extremity and lower extremity 5/5 muscle strength bilaterally, no loss of sensation in upper extremities, lower extremities bilaterally and core Assessment and Plan - Assessment and Plan (Free Text) Assessment: Assessment and Plan: 81 year old female with past medical history significant for CAD, hypertension, Dilated Cardiomyopathy with AICD, previous CVA, COPD, OA and history of left breast cancer presented with shortness of breath and left arm pain. Patient denied chest discomfort. Patient was found to have elevated troponins up to 3.070 with NSR on EKG. Chest Xray showed new vascular congestion. ECHO from showed EF of 15-25%. Patient is on appropriate heart failure medication at home, Aldactone, Nitrate, Losartan, Atorvastatin, and aspirin - changed from metoprolol tartrate to metoprolol succinate here. Patient is s/p cardiac cath, see operative note for full details, see below for summary and recommendations. Yesterday, patient's creatinine started trending up, possibly secondary to diuretic use. Lasix changed from BID to daily NSTEMI - Resolved - Troponins elevated up to 3.07, trending down, EKG normal - Aspirin, Atorvastatin, Aldactone, Nitrates, Losartan; Metoprolol tartrate changed to Metoprolol Succinate. - Added Amiodarone 200 - Patient cath results are as follow: Left Heart Cath: Non-obstructive Right Heart Cath Hemodynamics: Right Atrium 15 PCWP 30 Pulmonary Arterial Pressure 80/40 with mean of 50 Cardiac Output 2.7 - Patient was initiated on Milrinone .125 mcg/kg/hr, as well as Digoxin; latest BNP is trending downward GINNY, likely 2/2 Diuretic Effect - Change Lasix to daily Coronary artery disease - Treatment as above Hyperlipidemia - Treatment as above Hypertension - Losartan, Metoprolol - Monitor Dilated Cardiomyopathy - Patient has AICD - GDMT as above Previous CVA - Per primary team COPD history - Per primary team Osteoarthritis - Per primary team Breast Cancer - Per primary team Dispo: Patient on Milrinone .125mcg/kg/hr; Lasix 40 DAILY; Digoxin .125. We are considering changing the nitrates to sildenafil. Will continue to follow. <Bernard Da Silva - Last Filed: 04/26/17 06:18> Objective - Vital Signs/Intake and Output Vital Signs (last 24 hours): Temp Pulse Resp BP Pulse Ox 98.2 F 63 18 127/67 92 L 04/26/17 05:12 04/26/17 05:12 04/26/17 05:12 04/26/17 05:12 04/26/17 05:12 Intake and Output: 04/25/17 04/26/17 18:59 06:59 Intake Total 100 Balance 100 - Medications Medications: Current Medications Acetaminophen (Tylenol 325mg Tab) 650 mg PO Q4 PRN PRN Reason: Pain, moderate (4-7) Last Admin: 04/25/17 22:44 Dose: 650 mg Amiodarone HCl (Cordarone) 200 mg PO DAILY [facility] Last Admin: 04/25/17 09:40 Dose: 200 mg Anastrozole (Arimidex 1 Mg Tab) 1 mg PO DAILY [facility] Last Admin: 04/25/17 09:37 Dose: 1 mg Ascorbic Acid (Vitamin C 500 Mg Tab) 500 mg PO DAILY [facility] Last Admin: 04/25/17 09:39 Dose: 500 mg Aspirin (Ecotrin) 81 mg PO DAILY [facility] Last Admin: 04/22/17 09:58 Dose: Not Given Atorvastatin Calcium (Lipitor) 20 mg PO HS [facility] Last Admin: 04/25/17 22:00 Dose: 20 mg Benzocaine/Menthol (Cepacol Sore Throat) 1 saumya PO Q3 PRN PRN Reason: Sore Throat Last Admin: 04/25/17 09:49 Dose: 1 saumya Calcium/Vitamin D (Oyster Shell Calcium/Vitamin D 500 Mg-200 Iu) 1 tab PO DAILY [facility] Last Admin: 04/25/17 09:40 Dose: 1 tab Cholecalciferol (Vitamin D) 1,000 intlu PO DAILY [facility] Last Admin: 04/25/17 09:39 Dose: 1,000 intlu Digoxin (Lanoxin) 0.125 mg PO DAILY [facility] Last Admin: 04/25/17 09:38 Dose: 0.125 mg Docusate Sodium (Colace) 100 mg PO BID PRN PRN Reason: Constipation Furosemide (Lasix) 40 mg IVP DAILY [facility] Last Admin: 04/25/17 09:39 Dose: 40 mg Guaifenesin/Dextromethorphan (Robitussin Dm) 10 ml PO Q4 [facility] Last Admin: 04/26/17 06:16 Dose: Not Given Heparin Sodium (Porcine) (Heparin) 5,000 units SC Q12 YUVAL PRN Reason: Protocol Last Admin: 04/25/17 21:59 Dose: 5,000 units Milrinone Lactate/Dextrose (Primacor 20mg/100ml D5w) 100 mls @ 2.637 mls/hr IV .Q24H YUVAL; 0.125 MCG/KG/MIN PRN Reason: Protocol Last Admin: 04/26/17 01:19 Dose: 0.125 mcg/kg/min, 2.637 mls/hr Levothyroxine Sodium (Synthroid) 25 mcg PO DAILY@0630 [facility] Last Admin: 04/25/17 06:48 Dose: Not Given Losartan Potassium (Cozaar) 25 mg PO DAILY [facility] Last Admin: 04/25/17 09:36 Dose: 25 mg Metoprolol Succinate (Toprol Xl) 50 mg PO DAILY [facility] Last Admin: 04/25/17 09:39 Dose: 50 mg Multivitamins/Minerals (Therapeutic-M Tab) 1 tab PO DAILY [facility] Last Admin: 04/25/17 09:36 Dose: 1 tab Nitroglycerin (Nitrostat Sl Tab) 0.4 mg SL Q5MIN PRN PRN Reason: chest pain Last Admin: 04/24/17 06:55 Dose: 0.4 mg Nitroglycerin (Nitro-Bid 2% Oint) 1 ea TOP QID YUVAL Last Admin: 04/25/17 22:03 Dose: 1 ea Vitamin E (Vitamin E 400 Units Cap) 400 intlu PO DAILY [facility] Last Admin: 04/25/17 09:36 Dose: 400 intlu - Labs Labs: 04/26/17 04:20 04/26/17 04:20 PT 11.2 Seconds (9.8-13.1) 04/17/17 17:10 INR 1.0 (0.9-1.2) 04/17/17 17:10 APTT 28.9 Seconds (25.6-37.1) 04/23/17 21:32 Assessment and Plan (1) Chest pain Status: Acute (2) Dyspnea Status: Acute (3) Fatigue Status: Acute (4) NSTEMI (non-ST elevated myocardial infarction) Status: Acute (5) CHF (congestive heart failure) Status: Chronic (6) HLD (hyperlipidemia) Status: Chronic (7) HTN (hypertension) Status: Chronic Attending/Attestation - Attestation I have personally seen and examined this patient.: Yes I have fully participated in the care of the patient.: Yes I have reviewed all pertinent clinical information, including history, physical exam and plan: Yes
[2017-04-22] MEDS: Milrinone 20mg/100ml D5W 100 ML IV SCH (21:46)
[2017-04-23] MEDS: guaiFENesin DM 200 mg-20 mg/10 ml UD PO SCH ×8 (01:00→21:27)
[2017-04-23 05:18] LABS: HEMOGLOBIN 12.2 g/dL (12.0-16.0); MEAN CELL VOLUME 95.5 fl (81.0-99.0); MEAN CORPUSCULAR HEMOGLOBIN 31.5 pg (27.0-31.0); MEAN CORPUSCULAR HGB CONC 32.9 g/dL (33.0-37.0); RBC 3.89 Mil/uL (3.80-5.20); RED CELL DISTRIBUTION WIDTH 13.8 % (11.5-14.5); WHITE BLOOD COUNT 8.7 K/uL (4.8-10.8)
[2017-04-23] MEDS: Levothyroxine 25 MCG TAB PO SCH (05:32)
[2017-04-23 06:33] LABS: CALCIUM 8.7 mg/dL (8.4-10.2)
[2017-04-23 07:20] LABS: CALCIUM 8.7 mg/dL (8.4-10.2)
--- NOTE | 2017-04-23 08:13 | CP.PCM.PN ---
Subjective - Date & Time of Evaluation Date of Evaluation: 04/23/17 Time of Evaluation: 08:00 - Subjective Subjective: Patient was seen and evaluated bedside. Feeling weak, and tired with no energy Denies any SOB or CP. No acute issues overnight Still on Milrinone drip 0.125 mcg as per cardiology BP 100/48 HR 63 , afebrile Objective - Vital Signs/Intake and Output Vital Signs (last 24 hours): Temp Pulse Resp BP Pulse Ox 99 F 63 14 100/48 L 94 L 04/23/17 04:00 04/23/17 06:00 04/23/17 06:00 04/23/17 06:00 04/23/17 06:00 Intake and Output: 04/23/17 04/23/17 06:59 18:59 Intake Total 530 Output Total 300 Balance 230 - Medications Medications: Current Medications Acetaminophen (Tylenol 325mg Tab) 650 mg PO Q6 PRN PRN Reason: Pain, moderate (4-7) Last Admin: 04/21/17 01:42 Dose: 650 mg Amiodarone HCl (Cordarone) 200 mg PO DAILY [facility] Last Admin: 04/22/17 09:40 Dose: 200 mg Anastrozole (Arimidex 1 Mg Tab) 1 mg PO DAILY [facility] Last Admin: 04/22/17 09:43 Dose: 1 mg Ascorbic Acid (Vitamin C 500 Mg Tab) 500 mg PO DAILY [facility] Last Admin: 04/22/17 09:40 Dose: 500 mg Aspirin (Ecotrin) 81 mg PO DAILY [facility] Last Admin: 04/22/17 09:58 Dose: Not Given Atorvastatin Calcium (Lipitor) 20 mg PO HS [facility] Last Admin: 04/22/17 22:05 Dose: 20 mg Azithromycin (Zithromax) 500 mg PO DAILY [facility] Last Admin: 04/22/17 09:39 Dose: 500 mg Benzocaine/Menthol (Cepacol Sore Throat) 1 saumya PO Q3 PRN PRN Reason: Sore Throat Last Admin: 04/19/17 16:21 Dose: 1 saumya Calcium/Vitamin D (Oyster Shell Calcium/Vitamin D 500 Mg-200 Iu) 1 tab PO DAILY [facility] Last Admin: 04/22/17 09:40 Dose: 1 tab Cholecalciferol (Vitamin D) 1,000 intlu PO DAILY [facility] Last Admin: 04/22/17 09:40 Dose: 1,000 intlu Digoxin (Lanoxin) 0.125 mg PO DAILY [facility] Last Admin: 04/22/17 09:40 Dose: 0.125 mg Docusate Sodium (Colace) 100 mg PO BID PRN PRN Reason: Constipation Furosemide (Lasix) 40 mg IVP DAILY [facility] Last Admin: 04/22/17 09:41 Dose: 40 mg Guaifenesin/Dextromethorphan (Robitussin Dm) 10 ml PO Q4 [facility] Last Admin: 04/23/17 04:27 Dose: 10 ml Ceftriaxone Sodium 1 gm/ (Sodium Chloride) 100 mls @ 100 mls/hr IVPB DAILY [facility] PRN Reason: Protocol Last Admin: 04/22/17 09:38 Dose: 100 mls/hr Milrinone Lactate/Dextrose (Primacor 20mg/100ml D5w) 100 mls @ 2.637 mls/hr IV .Q24H [facility]; 0.125 MCG/KG/MIN PRN Reason: Protocol Last Admin: 04/22/17 21:46 Dose: 0.125 mcg/kg/min, 2.637 mls/hr Levothyroxine Sodium (Synthroid) 25 mcg PO DAILY@0630 [facility] Last Admin: 04/23/17 05:32 Dose: 25 mcg Losartan Potassium (Cozaar) 25 mg PO DAILY [facility] Last Admin: 04/22/17 09:41 Dose: 25 mg Metoprolol Succinate (Toprol Xl) 50 mg PO DAILY [facility] Last Admin: 04/22/17 09:44 Dose: 50 mg Multivitamins/Minerals (Therapeutic-M Tab) 1 tab PO DAILY [facility] Last Admin: 04/22/17 09:41 Dose: 1 tab Nitroglycerin (Nitrostat Sl Tab) 0.4 mg SL Q5MIN PRN PRN Reason: chest pain Last Admin: 04/20/17 07:40 Dose: 0.4 mg Nitroglycerin (Nitro-Bid 2% Oint) 1 ea TOP QID [facility] Last Admin: 04/22/17 21:44 Dose: 1 ea Vitamin E (Vitamin E 400 Units Cap) 400 intlu PO DAILY [facility] Last Admin: 04/22/17 09:39 Dose: 400 intlu - Labs Labs: 04/23/17 04:20 04/23/17 07:11 PT 11.2 Seconds (9.8-13.1) 04/17/17 17:10 INR 1.0 (0.9-1.2) 04/17/17 17:10 APTT 97.6 Seconds (25.6-37.1) H D 04/19/17 02:15 - Constitutional Appears: Non-toxic, Chronically Ill, Other (weak , pale tired ) - Head Exam Head Exam: ATRAUMATIC, NORMAL INSPECTION, NORMOCEPHALIC - Eye Exam Eye Exam: EOMI, Normal appearance, PERRL Pupil Exam: NORMAL ACCOMODATION - ENT Exam ENT Exam: Mucous Membranes Moist, Normal Exam - Neck Exam Neck Exam: Full ROM, Normal Inspection - Respiratory Exam Respiratory Exam: Clear to Ausculation Bilateral. absent: Rhonchi, Wheezes, Respiratory Distress - Cardiovascular Exam Cardiovascular Exam: REGULAR RHYTHM, RRR, +S1, +S2. absent: JVD - GI/Abdominal Exam GI & Abdominal Exam: Soft, Normal Bowel Sounds. absent: Distended, Guarding, Tenderness, Rebound - Rectal Exam Rectal Exam: Deferred - Extremities Exam Extremities Exam: Full ROM, Normal Capillary Refill, Normal Inspection. absent : Calf Tenderness, Pedal Edema - Back Exam Back Exam: NORMAL INSPECTION - Neurological Exam Neurological Exam: Alert, Awake, CN II-XII Intact, Oriented x3 - Psychiatric Exam Psychiatric exam: Flat Affect - Skin Skin Exam: Dry, Pallor, Warm Assessment and Plan - Assessment and Plan (Free Text) Assessment: 81 y/o female with PMH of Cardiomyopathy s/p AICD, Arrhythmia s/p Ablation, CAD, CVA, COPD, Hypothyroidism, HTN, Hyperlipidemia,history of breast cancer s/ p left mastectomy , came in bec of left arm discomfort and some SOB. CXR showed Pulm Vascular congestion. Troponin were positive up to 3.0 Patient was admitted to ICU and started on heparin drip. Cardiology and pulmonary consulted. Her troponins trended down to 0.69 Went for cardiac cath 04/19 @ [facility] that showed diffuse artherosclerotic disease non obstructive ,EF 20 % ,high pulmonary artery pressures 50. Started on Milrinone and Nitro drip as per cardiology. Clinically improving , with generalized weakness Feeling very tired and weak 1.NSTEMI (non-ST elevated myocardial infarction) resolved admitted with elevated Trop 3 that trended down 0.69 Cardiac Cath done 04/19 : diffuse artherosclerotic disease , non obstructive,EF 20 % , elevated Pulmonary artery pressure of 50 continue metoprolol ASA, Statin, BB and ARB cardiology following 2. Systolic and diastolic CHF, acute on chronic Pulmonary HTN, severe EF 20% as reported by cardiac cath cont BB and ARB BNP 1600 On Milrinone drip as rec by Dr Da Silva. Decreased to 0.125 mcg. Discussed with cardiology . plan is to d/c Milrinone drip and nitro and start Sildenafil cont 40mg bid Lasix cont Amiodarone and Digoxin 3. COPD (chronic obstructive pulmonary disease), stable Chronic Duoneb prn Dr Gomez following pt V/Q scan showed low probability PE 4.Hypothyroidism Chronic cont Levothyroxine 5. Leukocytosis and Cough unclear etiology-- leukocytosis now resolved however still with cough pt has no fever empirically on IV Ceftriaxone and Azithro CXR / : no infiltrates continue Robitussin, cont Bronchodilators Influenza: negative 6. Acute Kidney Injury prob prerenal improving Cr 1.2 hold off on Aldactone Nephrology consulted: Dr Powell 7. Hematuria Most likley traumatic Jovel draining clear urine today and H& H stable urology consulted will resume Heparin 8. DVT prophylaxis resume Heparin
[2017-04-23] MEDS: Digoxin 125 mcg (0.125 mg) Tab PO SCH (09:25)
[2017-04-23] MEDS: Calcium-Vit D 500 mg-200 Units Tab UD PO SCH (09:27)
[2017-04-23] MEDS: Cholecalciferol 1,000 INTLU TAB PO SCH (09:27)
[2017-04-23] MEDS: Multivitamin With Minerals Tab PO SCH (09:28)
[2017-04-23] MEDS: Metoprolol Succinate 50 mg XL Tab PO SCH (09:28)
[2017-04-23] MEDS: Nitroglycerin 2% Ointment Foilpak UD TOP SCH ×4 (09:31→21:23)
--- NOTE | 2017-04-23 09:47 | CP.PCM.PN ---
Subjective - Date & Time of Evaluation Date of Evaluation: 04/23/17 Time of Evaluation: 09:45 - Subjective Subjective: Interim events reviewed. Complains of a profound sensation of fatigue. No further chest pain. +BM yesterday. Vital signs have been stable. Labs have been stable. BNP back up to 1600 yesterday. No dependant edema or cyanosis. Occasional sonorous rhonchi in dependant regions of both lungs. No audible wheezes or bronchial breath sounds. Heart sounds are well heard, regular rhythm. Will request V/Q lung scan to rule out occult PEs. Progress as per cardiology. Objective - Vital Signs/Intake and Output Vital Signs (last 24 hours): Temp Pulse Resp BP Pulse Ox 97.8 F 70 13 134/76 95 04/23/17 08:00 04/23/17 09:31 04/23/17 08:00 04/23/17 09:31 04/23/17 08:00 Intake and Output: 04/22/17 04/23/17 23:59 11:59 Intake Total 312 218 Output Total 300 Balance 312 -82 - Medications Medications: Current Medications Acetaminophen (Tylenol 325mg Tab) 650 mg PO Q6 PRN PRN Reason: Pain, moderate (4-7) Last Admin: 04/21/17 01:42 Dose: 650 mg Amiodarone HCl (Cordarone) 200 mg PO DAILY [facility] Last Admin: 04/23/17 09:19 Dose: 200 mg Anastrozole (Arimidex 1 Mg Tab) 1 mg PO DAILY [facility] Last Admin: 04/23/17 09:19 Dose: 1 mg Ascorbic Acid (Vitamin C 500 Mg Tab) 500 mg PO DAILY [facility] 234 [facility]S [facility] Last Admin: 04/23/17 09:27 Dose: 500 mg Aspirin (Ecotrin) 81 mg PO DAILY [facility] 234 [facility]S [facility] Last Admin: 04/22/17 09:58 Dose: Not Given Atorvastatin Calcium (Lipitor) 20 mg PO HS [facility] 234 [facility]S [facility] Last Admin: 04/22/17 22:05 Dose: 20 mg Azithromycin (Zithromax) 500 mg PO DAILY [facility] 234 [facility] Last Admin: 04/23/17 09:28 Dose: 500 mg Benzocaine/Menthol (Cepacol Sore Throat) 1 saumya PO Q3 PRN PRN Reason: Sore Throat Last Admin: 04/19/17 16:21 Dose: 1 saumya Calcium/Vitamin D (Oyster Shell Calcium/Vitamin D 500 Mg-200 Iu) 1 tab PO DAILY [facility] 234 [facility]S [facility] Last Admin: 04/23/17 09:27 Dose: 1 tab Cholecalciferol (Vitamin D) 1,000 intlu PO DAILY [facility] 234 [facility] Last Admin: 04/23/17 09:27 Dose: 1,000 intlu Digoxin (Lanoxin) 0.125 mg PO DAILY [facility] Last Admin: 04/23/17 09:25 Dose: 0.125 mg Docusate Sodium (Colace) 100 mg PO BID PRN PRN Reason: Constipation Furosemide (Lasix) 40 mg IVP DAILY [facility] Last Admin: 04/23/17 09:25 Dose: 40 mg Guaifenesin/Dextromethorphan (Robitussin Dm) 10 ml PO Q4 [facility] Last Admin: 04/23/17 09:27 Dose: 10 ml Ceftriaxone Sodium 1 gm/ (Sodium Chloride) 100 mls @ 100 mls/hr IVPB DAILY [facility] PRN Reason: Protocol Last Admin: 04/23/17 09:28 Dose: 100 mls/hr Milrinone Lactate/Dextrose (Primacor 20mg/100ml D5w) 100 mls @ 2.637 mls/hr IV .Q24H [facility]; 0.125 MCG/KG/MIN PRN Reason: Protocol Last Admin: 04/22/17 21:46 Dose: 0.125 mcg/kg/min, 2.637 mls/hr Levothyroxine Sodium (Synthroid) 25 mcg PO DAILY@0630 [facility] 234 [facility]S [facility] Last Admin: 04/23/17 05:32 Dose: 25 mcg Losartan Potassium (Cozaar) 25 mg PO DAILY [facility] 234 [facility] Last Admin: 04/23/17 09:27 Dose: 25 mg Metoprolol Succinate (Toprol Xl) 50 mg PO DAILY [facility] 234 [facility] Last Admin: 04/23/17 09:28 Dose: 50 mg Multivitamins/Minerals (Therapeutic-M Tab) 1 tab PO DAILY [facility] Last Admin: 04/23/17 09:28 Dose: 1 tab Nitroglycerin (Nitrostat Sl Tab) 0.4 mg SL Q5MIN PRN PRN Reason: chest pain Last Admin: 04/20/17 07:40 Dose: 0.4 mg Nitroglycerin (Nitro-Bid 2% Oint) 1 ea TOP QID [facility] 234 B[facility]S [facility] Last Admin: 04/23/17 09:31 Dose: 1 ea Vitamin E (Vitamin E 400 Units Cap) 400 intlu PO DAILY [facility] 234 [facility]S [facility] Last Admin: 04/23/17 09:29 Dose: 400 intlu - Labs Labs: 04/23/17 04:20 04/23/17 07:11 PT 11.2 Seconds (9.8-13.1) 04/17/17 17:10 INR 1.0 (0.9-1.2) 04/17/17 17:10 APTT 97.6 Seconds (25.6-37.1) H D 04/19/17 02:15 Assessment and Plan (1) Low cardiac output syndrome Status: Chronic (2) Cardiomyopathy Status: Chronic (3) CAD (coronary artery disease) Status: Chronic (4) COPD (chronic obstructive pulmonary disease) Status: Chronic (5) Hypothyroidism Status: Chronic
--- NOTE | 2017-04-23 13:02 | CP.PCM.PN ---
Subjective - Date & Time of Evaluation Date of Evaluation: 04/23/17 Time of Evaluation: 12:59 - Subjective Subjective: Patient complaining of weakness and fatigue No nausea or vomiting Vital signs noted to be stable Objective - Vital Signs/Intake and Output Vital Signs (last 24 hours): Temp Pulse Resp BP Pulse Ox 97.8 F 70 13 134/76 95 04/23/17 08:00 04/23/17 09:31 04/23/17 08:00 04/23/17 09:31 04/23/17 08:00 Intake and Output: 04/23/17 04/23/17 06:59 18:59 Intake Total 530 Output Total 300 Balance 230 - Medications Medications: Current Medications Acetaminophen (Tylenol 325mg Tab) 650 mg PO Q6 PRN PRN Reason: Pain, moderate (4-7) Last Admin: 04/21/17 01:42 Dose: 650 mg Amiodarone HCl (Cordarone) 200 mg PO DAILY [facility] Last Admin: 04/23/17 09:19 Dose: 200 mg Anastrozole (Arimidex 1 Mg Tab) 1 mg PO DAILY [facility] Last Admin: 04/23/17 09:19 Dose: 1 mg Ascorbic Acid (Vitamin C 500 Mg Tab) 500 mg PO DAILY [facility] Last Admin: 04/23/17 09:27 Dose: 500 mg Aspirin (Ecotrin) 81 mg PO DAILY [facility] Last Admin: 04/22/17 09:58 Dose: Not Given Atorvastatin Calcium (Lipitor) 20 mg PO HS [facility] Last Admin: 04/22/17 22:05 Dose: 20 mg Azithromycin (Zithromax) 500 mg PO DAILY [facility] Last Admin: 04/23/17 09:28 Dose: 500 mg Benzocaine/Menthol (Cepacol Sore Throat) 1 saumya PO Q3 PRN PRN Reason: Sore Throat Last Admin: 04/19/17 16:21 Dose: 1 saumya Calcium/Vitamin D (Oyster Shell Calcium/Vitamin D 500 Mg-200 Iu) 1 tab PO DAILY [facility] Last Admin: 04/23/17 09:27 Dose: 1 tab Cholecalciferol (Vitamin D) 1,000 intlu PO DAILY [facility] Last Admin: 04/23/17 09:27 Dose: 1,000 intlu Digoxin (Lanoxin) 0.125 mg PO DAILY [facility] Last Admin: 04/23/17 09:25 Dose: 0.125 mg Docusate Sodium (Colace) 100 mg PO BID PRN PRN Reason: Constipation Furosemide (Lasix) 40 mg IVP DAILY [facility] Last Admin: 04/23/17 09:25 Dose: 40 mg Guaifenesin/Dextromethorphan (Robitussin Dm) 10 ml PO Q4 [facility] Last Admin: 04/23/17 09:27 Dose: 10 ml Ceftriaxone Sodium 1 gm/ (Sodium Chloride) 100 mls @ 100 mls/hr IVPB DAILY [facility] PRN Reason: Protocol Last Admin: 04/23/17 09:28 Dose: 100 mls/hr Milrinone Lactate/Dextrose (Primacor 20mg/100ml D5w) 100 mls @ 2.637 mls/hr IV .Q24H [facility]; 0.125 MCG/KG/MIN PRN Reason: Protocol Last Admin: 04/22/17 21:46 Dose: 0.125 mcg/kg/min, 2.637 mls/hr Levothyroxine Sodium (Synthroid) 25 mcg PO DAILY@0630 [facility] Last Admin: 04/23/17 05:32 Dose: 25 mcg Losartan Potassium (Cozaar) 25 mg PO DAILY [facility] Last Admin: 04/23/17 09:27 Dose: 25 mg Metoprolol Succinate (Toprol Xl) 50 mg PO DAILY [facility] Last Admin: 04/23/17 09:28 Dose: 50 mg Multivitamins/Minerals (Therapeutic-M Tab) 1 tab PO DAILY [facility] Last Admin: 04/23/17 09:28 Dose: 1 tab Nitroglycerin (Nitrostat Sl Tab) 0.4 mg SL Q5MIN PRN PRN Reason: chest pain Last Admin: 04/20/17 07:40 Dose: 0.4 mg Nitroglycerin (Nitro-Bid 2% Oint) 1 ea TOP QID [facility] Last Admin: 04/23/17 09:31 Dose: 1 ea Vitamin E (Vitamin E 400 Units Cap) 400 intlu PO DAILY [facility] Last Admin: 04/23/17 09:29 Dose: 400 intlu - Labs Labs: 04/23/17 04:20 04/23/17 07:11 PT 11.2 Seconds (9.8-13.1) 04/17/17 17:10 INR 1.0 (0.9-1.2) 04/17/17 17:10 APTT 97.6 Seconds (25.6-37.1) H D 04/19/17 02:15 - Constitutional Appears: No Acute Distress - ENT Exam ENT Exam: Mucous Membranes Moist - Neck Exam Neck Exam: absent: Lymphadenopathy - Respiratory Exam Respiratory Exam: absent: Chest Wall Tenderness - Cardiovascular Exam Cardiovascular Exam: absent: Gallop, JVD, Rubs - GI/Abdominal Exam GI & Abdominal Exam: Soft, Normal Bowel Sounds - Extremities Exam Extremities Exam: absent: Calf Tenderness - Back Exam Back Exam: absent: CVA tenderness (L), CVA tenderness (R) - Neurological Exam Neurological Exam: Alert - Psychiatric Exam Psychiatric exam: Normal Affect - Skin Skin Exam: absent: Cyanosis Assessment and Plan (1) GINNY (acute kidney injury) Assessment & Plan: Patient recovering from acute kidney injury However keep eye on sodium patient has mild hyponatremia to be monitored Status: Acute
--- NOTE | 2017-04-23 17:05 | NM ---
COMPARISON: 04/20/2017. TECHNIQUE: 33.98 mCi technetium 99-m DTPA aerosol. 5.5 mCI technetium 99-m MAA administered intravenously. FINDINGS: VENTILATION COMPONENT: Mildly heterogeneous ventilation. Retention of radionuclide in the tracheobronchial tree and ingestion of radionuclide in the stomach, incidental findings PERFUSION COMPONENT: Heterogeneous distribution of radionuclide. No geographic, segmental, lobar abnormalities apparent on the present examination. Incidental finding(s): Photon deficient area corresponding to the pacemaker battery pack overlying the right tung thorax. IMPRESSION: Low probability ventilation perfusion scan for pulmonary embolism.
[2017-04-24] MEDS: guaiFENesin DM 200 mg-20 mg/10 ml UD PO SCH ×6 (00:50→21:02)
[2017-04-24] MEDS: Levothyroxine 25 MCG TAB PO SCH (05:43)
[2017-04-24] MEDS: Digoxin 125 mcg (0.125 mg) Tab PO SCH (08:31)
[2017-04-24] MEDS: Nitroglycerin 2% Ointment Foilpak UD TOP SCH ×4 (08:32→21:00)
[2017-04-24] MEDS: Calcium-Vit D 500 mg-200 Units Tab UD PO SCH (08:32)
[2017-04-24] MEDS: Multivitamin With Minerals Tab PO SCH (08:35)
[2017-04-24] MEDS: Metoprolol Succinate 50 mg XL Tab PO SCH (08:36)
[2017-04-24] MEDS: Cholecalciferol 1,000 INTLU TAB PO SCH (08:36)
[2017-04-24 10:05] LABS: TROPONIN I 0.088 ng/mL (0.00-0.120)
[2017-04-24 10:18] LABS: CALCIUM 8.7 mg/dL (8.4-10.2)
[2017-04-24] MEDS: Milrinone 20mg/100ml D5W 100 ML IV SCH (10:29)
--- NOTE | 2017-04-24 10:55 | CP.PCM.PN ---
Subjective - Date & Time of Evaluation Date of Evaluation: 04/24/17 Time of Evaluation: 10:55 - Subjective Subjective: s: seen and examined o: vss gen: nad sclera: anicteric op: clear neck: supple cv: +s1+s2 lungs: cta b/l abd: soft ext: no edema neuro: a+ox3 psych: nml affect skin: no rash imp: arf / hypertension / anemia / chf/ hyponatremia plan: renal function remains stable na remains stable Objective - Vital Signs/Intake and Output Vital Signs (last 24 hours): Temp Pulse Resp BP Pulse Ox 97.7 F 68 16 124/61 93 L 04/24/17 08:00 04/24/17 08:36 04/24/17 08:00 04/24/17 08:36 04/24/17 08:00 Intake and Output: 04/24/17 04/24/17 06:59 18:59 Intake Total 245 200 Output Total 300 Balance -55 200 - Medications Medications: Current Medications Acetaminophen (Tylenol 325mg Tab) 650 mg PO Q6 PRN PRN Reason: Pain, moderate (4-7) Last Admin: 04/21/17 01:42 Dose: 650 mg Amiodarone HCl (Cordarone) 200 mg PO DAILY [facility] Last Admin: 04/24/17 08:30 Dose: 200 mg Anastrozole (Arimidex 1 Mg Tab) 1 mg PO DAILY [facility] Last Admin: 04/24/17 08:27 Dose: 1 mg Ascorbic Acid (Vitamin C 500 Mg Tab) 500 mg PO DAILY [facility] Last Admin: 04/24/17 08:36 Dose: 500 mg Aspirin (Ecotrin) 81 mg PO DAILY [facility] Last Admin: 04/22/17 09:58 Dose: Not Given Atorvastatin Calcium (Lipitor) 20 mg PO HS [facility] Last Admin: 04/23/17 21:26 Dose: 20 mg Azithromycin (Zithromax) 500 mg PO DAILY [facility] Last Admin: 04/24/17 08:37 Dose: 500 mg Benzocaine/Menthol (Cepacol Sore Throat) 1 saumya PO Q3 PRN PRN Reason: Sore Throat Last Admin: 04/19/17 16:21 Dose: 1 saumya Calcium/Vitamin D (Oyster Shell Calcium/Vitamin D 500 Mg-200 Iu) 1 tab PO DAILY [facility] Last Admin: 04/24/17 08:32 Dose: 1 tab Cholecalciferol (Vitamin D) 1,000 intlu PO DAILY [facility] Last Admin: 04/24/17 08:36 Dose: 1,000 intlu Digoxin (Lanoxin) 0.125 mg PO DAILY [facility] Last Admin: 04/24/17 08:31 Dose: 0.125 mg Docusate Sodium (Colace) 100 mg PO BID PRN PRN Reason: Constipation Furosemide (Lasix) 40 mg IVP DAILY [facility] Last Admin: 04/24/17 08:31 Dose: 40 mg Guaifenesin/Dextromethorphan (Robitussin Dm) 10 ml PO Q4 [facility] Last Admin: 04/24/17 08:33 Dose: Not Given Heparin Sodium (Porcine) (Heparin) 5,000 units SC Q12 [facility] PRN Reason: Protocol Last Admin: 04/24/17 08:31 Dose: 5,000 units Ceftriaxone Sodium 1 gm/ (Sodium Chloride) 100 mls @ 100 mls/hr IVPB DAILY [facility] PRN Reason: Protocol Last Admin: 04/24/17 08:34 Dose: 100 mls/hr Milrinone Lactate/Dextrose (Primacor 20mg/100ml D5w) 100 mls @ 2.637 mls/hr IV .Q24H [facility]; 0.125 MCG/KG/MIN PRN Reason: Protocol Last Admin: 04/24/17 10:29 Dose: 0.125 mcg/kg/min, 2.637 mls/hr Levothyroxine Sodium (Synthroid) 25 mcg PO DAILY@0630 [facility] Last Admin: 04/24/17 05:43 Dose: 25 mcg Losartan Potassium (Cozaar) 25 mg PO DAILY [facility] Last Admin: 04/24/17 08:30 Dose: 25 mg Metoprolol Succinate (Toprol Xl) 50 mg PO DAILY [facility] Last Admin: 04/24/17 08:36 Dose: 50 mg Multivitamins/Minerals (Therapeutic-M Tab) 1 tab PO DAILY [facility] Last Admin: 04/24/17 08:35 Dose: 1 tab Nitroglycerin (Nitrostat Sl Tab) 0.4 mg SL Q5MIN PRN PRN Reason: chest pain Last Admin: 04/24/17 06:55 Dose: 0.4 mg Nitroglycerin (Nitro-Bid 2% Oint) 1 ea TOP QID [facility] Last Admin: 04/24/17 08:32 Dose: 1 ea Vitamin E (Vitamin E 400 Units Cap) 400 intlu PO DAILY [facility] Last Admin: 04/24/17 08:36 Dose: 400 intlu - Labs Labs: 04/23/17 04:20 04/24/17 05:50 PT 11.2 Seconds (9.8-13.1) 04/17/17 17:10 INR 1.0 (0.9-1.2) 04/17/17 17:10 APTT 28.9 Seconds (25.6-37.1) 04/23/17 21:32
--- NOTE | 2017-04-24 11:30 | CP.PCM.PN ---
Subjective - Date & Time of Evaluation Date of Evaluation: 04/24/17 Time of Evaluation: 11:30 - Subjective Subjective: Interim events have been reviewed. The patient did develop left-sided chest pain early this morning which was unresponsive to nitroglycerin. She was ultimately given a single dose of morphine with relief. Ventilation/perfusion lung scan performed yesterday revealed no evidence suggestive of CTEPH. She appears somewhat drowsy from the medication and her speech is not clear. She has begun to complain once again of similar pain in the left anterolateral chest wall area. There is no chest wall tenderness or pain on movement or respiration. There is no diaphoresis, nausea or shortness of breath. Her vital signs remain stable at this time. There is no dullness on chest percussion. Expansion is equal but limited bilaterally. Left-sided mastectomy is noted. Implanted defibrillator in the right chest wall. Breath sounds are somewhat diminished bilaterally. No audible wheezing. Few dry rales are heard throughout all lung kelly. No bronchial breathing or egophony. Occasional rhonchi in the dependent zones posteriorly. Heart sounds are well heard in the rhythm is regular. Abdomen is soft and nontender with normal bowel sounds. No dependent edema. No cyanosis. Good strength in both lower extremities. Diffuse coronary artery disease. Non-ischemic cardiomyopathy. Pulmonary hypertension. Recent non-STEMI. Cigarette related chronic obstructive pulmonary disease-mild. Breast cancer, status post left mastectomy plus RT/chemotherapy. Analgesia as needed. 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 Need further discussion with cardiology. Presently remains on Milrinone Monitor neurological status-partially sedated at present. Objective - Vital Signs/Intake and Output Vital Signs (last 24 hours): Temp Pulse Resp BP Pulse Ox 97.7 F 68 16 124/61 93 L 04/24/17 08:00 04/24/17 08:36 04/24/17 08:00 04/24/17 08:36 04/24/17 08:00 Intake and Output: 04/23/17 04/24/17 23:59 11:59 Intake Total 109 336 Output Total 300 Balance 109 36 - Medications Medications: Current Medications Acetaminophen (Tylenol 325mg Tab) 650 mg PO Q6 PRN PRN Reason: Pain, moderate (4-7) Last Admin: 04/21/17 01:42 Dose: 650 mg Amiodarone HCl (Cordarone) 200 mg PO DAILY [facility] Last Admin: 04/24/17 08:30 Dose: 200 mg Anastrozole (Arimidex 1 Mg Tab) 1 mg PO DAILY [facility] Last Admin: 04/24/17 08:27 Dose: 1 mg Ascorbic Acid (Vitamin C 500 Mg Tab) 500 mg PO DAILY [facility] Last Admin: 04/24/17 08:36 Dose: 500 mg Aspirin (Ecotrin) 81 mg PO DAILY [facility] Last Admin: 04/22/17 09:58 Dose: Not Given Atorvastatin Calcium (Lipitor) 20 mg PO HS [facility] Last Admin: 04/23/17 21:26 Dose: 20 mg Benzocaine/Menthol (Cepacol Sore Throat) 1 saumya PO Q3 PRN PRN Reason: Sore Throat Last Admin: 04/19/17 16:21 Dose: 1 saumya Calcium/Vitamin D (Oyster Shell Calcium/Vitamin D 500 Mg-200 Iu) 1 tab PO DAILY [facility] Last Admin: 04/24/17 08:32 Dose: 1 tab Cholecalciferol (Vitamin D) 1,000 intlu PO DAILY [facility] Last Admin: 04/24/17 08:36 Dose: 1,000 intlu Digoxin (Lanoxin) 0.125 mg PO DAILY [facility] Last Admin: 04/24/17 08:31 Dose: 0.125 mg Docusate Sodium (Colace) 100 mg PO BID PRN PRN Reason: Constipation Furosemide (Lasix) 40 mg IVP DAILY [facility] Last Admin: 04/24/17 08:31 Dose: 40 mg Guaifenesin/Dextromethorphan (Robitussin Dm) 10 ml PO Q4 [facility] Last Admin: 04/24/17 08:33 Dose: Not Given Heparin Sodium (Porcine) (Heparin) 5,000 units SC Q12 [facility] PRN Reason: Protocol Last Admin: 04/24/17 08:31 Dose: 5,000 units Milrinone Lactate/Dextrose (Primacor 20mg/100ml D5w) 100 mls @ 2.637 mls/hr IV .Q24H [facility]; 0.125 MCG/KG/MIN PRN Reason: Protocol Last Admin: 04/24/17 10:29 Dose: 0.125 mcg/kg/min, 2.637 mls/hr Levothyroxine Sodium (Synthroid) 25 mcg PO DAILY@0630 [facility] Last Admin: 04/24/17 05:43 Dose: 25 mcg Losartan Potassium (Cozaar) 25 mg PO DAILY [facility] Last Admin: 04/24/17 08:30 Dose: 25 mg Metoprolol Succinate (Toprol Xl) 50 mg PO DAILY [facility] Last Admin: 04/24/17 08:36 Dose: 50 mg Multivitamins/Minerals (Therapeutic-M Tab) 1 tab PO DAILY [facility] Last Admin: 04/24/17 08:35 Dose: 1 tab Nitroglycerin (Nitrostat Sl Tab) 0.4 mg SL Q5MIN PRN PRN Reason: chest pain Last Admin: 04/24/17 06:55 Dose: 0.4 mg Nitroglycerin (Nitro-Bid 2% Oint) 1 ea TOP QID [facility] Last Admin: 04/24/17 08:32 Dose: 1 ea Vitamin E (Vitamin E 400 Units Cap) 400 intlu PO DAILY [facility] Last Admin: 04/24/17 08:36 Dose: 400 intlu - Labs Labs: 04/23/17 04:20 04/24/17 05:50 PT 11.2 Seconds (9.8-13.1) 04/17/17 17:10 INR 1.0 (0.9-1.2) 04/17/17 17:10 APTT 28.9 Seconds (25.6-37.1) 04/23/17 21:32 Assessment and Plan (1) Low cardiac output syndrome Status: Chronic (2) Cardiomyopathy Status: Chronic (3) CAD (coronary artery disease) Status: Chronic (4) COPD (chronic obstructive pulmonary disease) Status: Chronic (5) Hypothyroidism Status: Chronic
--- NOTE | 2017-04-24 12:03 | CP.PCM.PN ---
Subjective - Date & Time of Evaluation Date of Evaluation: 04/24/17 Time of Evaluation: 11:15 - Subjective Subjective: Had episode of chest pain this am Troponin done : negative CP described as left sided , nonradiating though she said she had sl arm pain around the antecubital area CP resolved with Morphine poor appetite cough better no abd pain no fever Objective - Vital Signs/Intake and Output Vital Signs (last 24 hours): Temp Pulse Resp BP Pulse Ox 97.7 F 68 16 124/61 93 L 04/24/17 08:00 04/24/17 08:36 04/24/17 08:00 04/24/17 08:36 04/24/17 08:00 Intake and Output: 04/24/17 04/24/17 06:59 18:59 Intake Total 245 200 Output Total 300 Balance -55 200 - Medications Medications: Current Medications Acetaminophen (Tylenol 325mg Tab) 650 mg PO Q6 PRN PRN Reason: Pain, moderate (4-7) Last Admin: 04/21/17 01:42 Dose: 650 mg Amiodarone HCl (Cordarone) 200 mg PO DAILY [facility] Last Admin: 04/24/17 08:30 Dose: 200 mg Anastrozole (Arimidex 1 Mg Tab) 1 mg PO DAILY [facility] Last Admin: 04/24/17 08:27 Dose: 1 mg Ascorbic Acid (Vitamin C 500 Mg Tab) 500 mg PO DAILY [facility] Last Admin: 04/24/17 08:36 Dose: 500 mg Aspirin (Ecotrin) 81 mg PO DAILY [facility] Last Admin: 04/22/17 09:58 Dose: Not Given Atorvastatin Calcium (Lipitor) 20 mg PO HS [facility] Last Admin: 04/23/17 21:26 Dose: 20 mg Benzocaine/Menthol (Cepacol Sore Throat) 1 saumya PO Q3 PRN PRN Reason: Sore Throat Last Admin: 04/19/17 16:21 Dose: 1 saumya Calcium/Vitamin D (Oyster Shell Calcium/Vitamin D 500 Mg-200 Iu) 1 tab PO DAILY [facility] Last Admin: 04/24/17 08:32 Dose: 1 tab Cholecalciferol (Vitamin D) 1,000 intlu PO DAILY [facility] Last Admin: 04/24/17 08:36 Dose: 1,000 intlu Digoxin (Lanoxin) 0.125 mg PO DAILY [facility] Last Admin: 04/24/17 08:31 Dose: 0.125 mg Docusate Sodium (Colace) 100 mg PO BID PRN PRN Reason: Constipation Furosemide (Lasix) 40 mg IVP DAILY [facility] Last Admin: 04/24/17 08:31 Dose: 40 mg Guaifenesin/Dextromethorphan (Robitussin Dm) 10 ml PO Q4 [facility] Last Admin: 04/24/17 08:33 Dose: Not Given Heparin Sodium (Porcine) (Heparin) 5,000 units SC Q12 [facility] PRN Reason: Protocol Last Admin: 04/24/17 08:31 Dose: 5,000 units Milrinone Lactate/Dextrose (Primacor 20mg/100ml D5w) 100 mls @ 2.637 mls/hr IV .Q24H [facility]; 0.125 MCG/KG/MIN PRN Reason: Protocol Last Admin: 04/24/17 10:29 Dose: 0.125 mcg/kg/min, 2.637 mls/hr Levothyroxine Sodium (Synthroid) 25 mcg PO DAILY@0630 [facility] Last Admin: 04/24/17 05:43 Dose: 25 mcg Losartan Potassium (Cozaar) 25 mg PO DAILY [facility] Last Admin: 04/24/17 08:30 Dose: 25 mg Metoprolol Succinate (Toprol Xl) 50 mg PO DAILY [facility] Last Admin: 04/24/17 08:36 Dose: 50 mg Multivitamins/Minerals (Therapeutic-M Tab) 1 tab PO DAILY [facility] Last Admin: 04/24/17 08:35 Dose: 1 tab Nitroglycerin (Nitrostat Sl Tab) 0.4 mg SL Q5MIN PRN PRN Reason: chest pain Last Admin: 04/24/17 06:55 Dose: 0.4 mg Nitroglycerin (Nitro-Bid 2% Oint) 1 ea TOP QID [facility] Last Admin: 04/24/17 08:32 Dose: 1 ea Vitamin E (Vitamin E 400 Units Cap) 400 intlu PO DAILY [facility] Last Admin: 04/24/17 08:36 Dose: 400 intlu - Labs Labs: 04/23/17 04:20 04/24/17 05:50 PT 11.2 Seconds (9.8-13.1) 04/17/17 17:10 INR 1.0 (0.9-1.2) 04/17/17 17:10 APTT 28.9 Seconds (25.6-37.1) 04/23/17 21:32 - Constitutional Appears: No Acute Distress - Head Exam Head Exam: NORMAL INSPECTION, NORMOCEPHALIC - Eye Exam Eye Exam: EOMI, Normal appearance Pupil Exam: NORMAL ACCOMMODATION - ENT Exam ENT Exam: Mucous Membranes Moist, Normal External Ear Exam - Neck Exam Neck Exam: Full ROM. absent: Meningismus - Respiratory Exam Respiratory Exam: Rales, rhonchi, NORMAL BREATHING PATTERN. absent: Wheezes, Respiratory Distress - Cardiovascular Exam Cardiovascular Exam: REGULAR RHYTHM, +S1, +S2. absent: JVD - GI/Abdominal Exam GI & Abdominal Exam: Soft, Normal Bowel Sounds. absent: Tenderness - Extremities Exam Extremities Exam: Normal Capillary Refill. absent: Calf Tenderness, Pedal Edema - Back Exam Back Exam: absent: CVA tenderness (L), CVA tenderness (R) - Neurological Exam Neurological Exam: Alert, Awake, Oriented x3 Neuro motor strength exam: Left Upper Extremity: 4, Right Upper Extremity: 4, Left Lower Extremity: 4, Right Lower Extremity: 4 - Psychiatric Exam Psychiatric exam: Normal Affect, Normal Mood - Skin Skin Exam: Dry, Normal Color, Warm Assessment and Plan (1) NSTEMI (non-ST elevated myocardial infarction) Status: Acute (2) Systolic and diastolic CHF, acute on chronic Status: Acute (3) COPD (chronic obstructive pulmonary disease) Status: Chronic (4) Hypothyroidism Status: Chronic (5) Leukocytosis Status: Acute (6) DVT prophylaxis Status: Acute - Assessment and Plan (Free Text) Assessment: 81 y/o female with PMH of Cardiomyopathy s/p AICD, Arrhythmia s/p Ablation, CAD, CVA, COPD, Hypothyroidism, HTN, Hyperlipidemia,history of breast cancer s/ p left mastectomy , came in bec of left arm discomfort and some SOB. CXR showed Pulm Vascular congestion. Troponin were positive up to 3.0 Patient was admitted to ICU and started on heparin drip. Cardiology and pulmonary consulted. Her troponins trended down to 0.69 Went for cardiac cath 04/19 @ [facility] that showed diffuse artherosclerotic disease non obstructive ,EF 20 % ,high pulmonary artery pressures 50. Started on Milrinone drip 1.NSTEMI (non-ST elevated myocardial infarction) resolved admitted with elevated Trop 3.0 that trended down 0.69 Cardiac Cath done 04/19 : diffuse artherosclerotic disease , non obstructive,EF 20 % , elevated Pulmonary artery pressure of 50 continue metoprolol ASA, Statin, BB and ARB cardiology following 2. Systolic and diastolic CHF, acute on chronic Pulmonary HTN, severe EF 20% as reported by cardiac cath cont BB and ARB BNP down tp 1040 On Milrinone drip as rec by Dr Da Silva Discussed with cardiology . plan is to d/c Milrinone drip and Nitro and start Sildenafil cont 40mg bid Lasix cont Amiodarone and Digoxin 3. COPD (chronic obstructive pulmonary disease), stable Chronic Duoneb prn Dr Gomez following pt V/Q scan showed low probability PE 4.Hypothyroidism Chronic cont Levothyroxine 5. Leukocytosis and Cough unclear etiology-- leukocytosis now resolved , cough better pt has no fever empirically was on IV Ceftriaxone and Azithro- d/c today CXR 04/20 : no infiltrates continue Robitussin, cont Bronchodilators Influenza: negative 6. Acute Kidney Injury prob prerenal improving Cr 1.2 hold off on Aldactone Nephrology consulted: Dr Powell 7. Hematuria likely traumatic Jovel draining clear urine today and H& H stable urology consulted cont Heparin 8. DVT prophylaxis cont Heparin
[2017-04-25] MEDS: guaiFENesin DM 200 mg-20 mg/10 ml UD PO SCH ×7 (00:20→21:58)
[2017-04-25] MEDS: Levothyroxine 25 MCG TAB PO SCH (06:48)
[2017-04-25] MEDS: Multivitamin With Minerals Tab PO SCH (09:36)
[2017-04-25] MEDS: Digoxin 125 mcg (0.125 mg) Tab PO SCH (09:38)
[2017-04-25] MEDS: Metoprolol Succinate 50 mg XL Tab PO SCH (09:39)
[2017-04-25] MEDS: Cholecalciferol 1,000 INTLU TAB PO SCH (09:39)
[2017-04-25] MEDS: Calcium-Vit D 500 mg-200 Units Tab UD PO SCH (09:40)
[2017-04-25] MEDS: Benzocaine/Menthol (Cepacol) Lozenge PO PRN (09:49)
[2017-04-25] MEDS: Nitroglycerin 2% Ointment Foilpak UD TOP SCH ×4 (09:52→22:03)
--- NOTE | 2017-04-25 10:54 | CARD ---
APPROVED REPORT EKG Measurement Heart [id number] <Conclusion> Normal sinus rhythm Moderate voltage criteria for LVH, may be normal variant Nonspecific T wave abnormality Abnormal ECG
--- NOTE | 2017-04-25 12:34 | CP.PCM.PN ---
Subjective - Date & Time of Evaluation Date of Evaluation: 04/25/17 Time of Evaluation: 10:45 - Subjective Subjective: No fever still with cough denies CP no SOB no abd pain Still on the Milrinone drip - discussed case with Dr Da Silva - will come in to see pt today , plan to d/c Milrinone this pm and also plan for poss Right Heart Cath poss Wednesday Objective - Vital Signs/Intake and Output Vital Signs (last 24 hours): Temp Pulse Resp BP Pulse Ox 98.5 F 64 20 160/63 H 95 04/25/17 10:00 04/25/17 10:00 04/25/17 10:00 04/25/17 10:00 04/25/17 10:00 - Medications Medications: Current Medications Acetaminophen (Tylenol 325mg Tab) 650 mg PO Q4 PRN PRN Reason: Pain, moderate (4-7) Last Admin: 04/25/17 01:08 Dose: 650 mg Amiodarone HCl (Cordarone) 200 mg PO DAILY [facility] Last Admin: 04/25/17 09:40 Dose: 200 mg Anastrozole (Arimidex 1 Mg Tab) 1 mg PO DAILY [facility] Last Admin: 04/25/17 09:37 Dose: 1 mg Ascorbic Acid (Vitamin C 500 Mg Tab) 500 mg PO DAILY [facility] Last Admin: 04/25/17 09:39 Dose: 500 mg Aspirin (Ecotrin) 81 mg PO DAILY [facility] Last Admin: 04/22/17 09:58 Dose: Not Given Atorvastatin Calcium (Lipitor) 20 mg PO HS [facility] Last Admin: 04/24/17 21:00 Dose: 20 mg Benzocaine/Menthol (Cepacol Sore Throat) 1 saumya PO Q3 PRN PRN Reason: Sore Throat Last Admin: 04/25/17 09:49 Dose: 1 saumya Calcium/Vitamin D (Oyster Shell Calcium/Vitamin D 500 Mg-200 Iu) 1 tab PO DAILY [facility] Last Admin: 04/25/17 09:40 Dose: 1 tab Cholecalciferol (Vitamin D) 1,000 intlu PO DAILY [facility] Last Admin: 04/25/17 09:39 Dose: 1,000 intlu Digoxin (Lanoxin) 0.125 mg PO DAILY [facility] Last Admin: 04/25/17 09:38 Dose: 0.125 mg Docusate Sodium (Colace) 100 mg PO BID PRN PRN Reason: Constipation Furosemide (Lasix) 40 mg IVP DAILY [facility] Last Admin: 04/25/17 09:39 Dose: 40 mg Guaifenesin/Dextromethorphan (Robitussin Dm) 10 ml PO Q4 [facility] Last Admin: 04/25/17 12:08 Dose: Not Given Heparin Sodium (Porcine) (Heparin) 5,000 units SC Q12 [facility] PRN Reason: Protocol Last Admin: 04/25/17 09:38 Dose: 5,000 units Milrinone Lactate/Dextrose (Primacor 20mg/100ml D5w) 100 mls @ 2.637 mls/hr IV .Q24H [facility]; 0.125 MCG/KG/MIN PRN Reason: Protocol Last Admin: 04/24/17 10:29 Dose: 0.125 mcg/kg/min, 2.637 mls/hr Levothyroxine Sodium (Synthroid) 25 mcg PO DAILY@0630 [facility] Last Admin: 04/25/17 06:48 Dose: Not Given Losartan Potassium (Cozaar) 25 mg PO DAILY [facility] Last Admin: 04/25/17 09:36 Dose: 25 mg Metoprolol Succinate (Toprol Xl) 50 mg PO DAILY [facility] Last Admin: 04/25/17 09:39 Dose: 50 mg Multivitamins/Minerals (Therapeutic-M Tab) 1 tab PO DAILY [facility] Last Admin: 04/25/17 09:36 Dose: 1 tab Nitroglycerin (Nitrostat Sl Tab) 0.4 mg SL Q5MIN PRN PRN Reason: chest pain Last Admin: 04/24/17 06:55 Dose: 0.4 mg Nitroglycerin (Nitro-Bid 2% Oint) 1 ea TOP QID [facility] Last Admin: 04/25/17 09:52 Dose: 1 ea Vitamin E (Vitamin E 400 Units Cap) 400 intlu PO DAILY [facility] Last Admin: 04/25/17 09:36 Dose: 400 intlu - Labs Labs: 04/23/17 04:20 04/24/17 05:50 PT 11.2 Seconds (9.8-13.1) 04/17/17 17:10 INR 1.0 (0.9-1.2) 04/17/17 17:10 APTT 28.9 Seconds (25.6-37.1) 02/09/18 21:32 - Constitutional Appears: No Acute Distress - Head Exam Head Exam: NORMAL INSPECTION, NORMOCEPHALIC - Eye Exam Eye Exam: EOMI, Normal appearance Pupil Exam: NORMAL ACCOMMODATION - ENT Exam ENT Exam: Mucous Membranes Moist, Normal External Ear Exam - Neck Exam Neck Exam: Full ROM. absent: Meningismus - Respiratory Exam Respiratory Exam: minimal Rales bases, rhonchi, NORMAL BREATHING PATTERN. absent: Wheezes, Respiratory Distress - Cardiovascular Exam Cardiovascular Exam: REGULAR RHYTHM, +S1, +S2. absent: JVD - GI/Abdominal Exam GI & Abdominal Exam: Soft, Normal Bowel Sounds. absent: Tenderness - Extremities Exam Extremities Exam: Normal Capillary Refill. absent: Calf Tenderness, Pedal Edema - Back Exam Back Exam: absent: CVA tenderness (L), CVA tenderness (R) - Neurological Exam Neurological Exam: Alert, Awake, Oriented x3 Neuro motor strength exam: Left Upper Extremity: 4, Right Upper Extremity: 4, Left Lower Extremity: 4, Right Lower Extremity: 4 - Psychiatric Exam Psychiatric exam: Normal Affect, Normal Mood - Skin Skin Exam: Dry, Normal Color, Warm Assessment and Plan (1) NSTEMI (non-ST elevated myocardial infarction) Status: Acute (2) Systolic and diastolic CHF, acute on chronic Status: Acute (3) COPD (chronic obstructive pulmonary disease) Status: Chronic (4) Hypothyroidism Status: Chronic (5) Leukocytosis Status: Acute (6) DVT prophylaxis Status: Acute - Assessment and Plan (Free Text) Assessment: 81 y/o female with PMH of Cardiomyopathy s/p AICD, Arrhythmia s/p Ablation, CAD, CVA, COPD, Hypothyroidism, HTN, Hyperlipidemia,history of breast cancer s/ p left mastectomy , came in bec of left arm discomfort and some SOB. CXR showed Pulm Vascular congestion. Troponin were positive up to 3.0 Patient was admitted to ICU and started on heparin drip. Cardiology and pulmonary consulted. Her troponins trended down to 0.69 Went for cardiac cath 04/19 @ [facility] that showed diffuse artherosclerotic disease non obstructive ,EF 20 % ,high pulmonary artery pressures 50. Started on Milrinone drip. Plan for Right Hear Cath . 1.NSTEMI (non-ST elevated myocardial infarction) resolved admitted with elevated Trop 3.0 that trended down 0.69 Cardiac Cath done 04/19 : diffuse artherosclerotic disease , non obstructive,EF 20 % , elevated Pulmonary artery pressure of 50 continue metoprolol ASA, Statin, BB and ARB cardiology following pt 2. Systolic and diastolic CHF, acute on chronic Pulmonary HTN, severe EF 20% as reported by cardiac cath cont BB and ARB BNP down tp 1040 On Milrinone drip as rec by Dr Da Silva Discussed with cardiology . plan is to d/c Milrinone drip and Nitro and start Sildenafil , also plan for Right Heart Cath poss day cont 40mg bid Lasix cont Amiodarone and Digoxin 3. COPD (chronic obstructive pulmonary disease), stable Chronic Duoneb prn Dr Gomez following pt V/Q scan showed low probability PE 4.Hypothyroidism Chronic cont Levothyroxine 5. Leukocytosis and Cough unclear etiology-- leukocytosis now resolved , cough better pt has no fever empirically was on IV Ceftriaxone and Azithro- d/c 04/24 CXR 04/20 : no infiltrates continue Robitussin, cont Bronchodilators Influenza: negative 6. Acute Kidney Injury prob prerenal improving Cr 1.3 today hold off on Aldactone Nephrology consulted: Dr Powell 7. Hematuria likely traumatic Jovel draining clear urine today and H& H stable urology consulted cont Heparin 8. DVT prophylaxis cont Heparin
[2017-04-26] MEDS: guaiFENesin DM 200 mg-20 mg/10 ml UD PO SCH ×6 (00:02→22:44)
[2017-04-26] MEDS: Milrinone 20mg/100ml D5W 100 ML IV SCH (01:19)
[2017-04-26 05:56] LABS: HEMOGLOBIN 12.5 g/dL (12.0-16.0); MEAN CORPUSCULAR HEMOGLOBIN 31.4 pg (27.0-31.0); MEAN CORPUSCULAR HGB CONC 33.4 g/dL (33.0-37.0); RBC 3.99 Mil/uL (3.80-5.20); RED CELL DISTRIBUTION WIDTH 13.5 % (11.5-14.5); WHITE BLOOD COUNT 8.6 K/uL (4.8-10.8)
[2017-04-26 06:05] LABS: ALBUMIN 3.5 g/dL (3.5-5.0); CALCIUM 9.2 mg/dL (8.4-10.2)
--- NOTE | 2017-04-26 06:21 | CP.PCM.PN ---
Subjective - Date & Time of Evaluation Date of Evaluation: 04/23/17 Time of Evaluation: 14:00 - Subjective Subjective: feeling better sob improving Objective - Vital Signs/Intake and Output Vital Signs (last 24 hours): Temp Pulse Resp BP Pulse Ox 98.2 F 63 18 127/67 92 L 04/26/17 05:12 04/26/17 05:12 04/26/17 05:12 04/26/17 05:12 04/26/17 05:12 Intake and Output: 04/25/17 04/26/17 18:59 06:59 Intake Total 100 Balance 100 - Medications Medications: Current Medications Acetaminophen (Tylenol 325mg Tab) 650 mg PO Q4 PRN PRN Reason: Pain, moderate (4-7) Last Admin: 04/25/17 22:44 Dose: 650 mg Amiodarone HCl (Cordarone) 200 mg PO DAILY [facility] Last Admin: 04/25/17 09:40 Dose: 200 mg Anastrozole (Arimidex 1 Mg Tab) 1 mg PO DAILY [facility] Last Admin: 04/25/17 09:37 Dose: 1 mg Ascorbic Acid (Vitamin C 500 Mg Tab) 500 mg PO DAILY [facility] Last Admin: 04/25/17 09:39 Dose: 500 mg Aspirin (Ecotrin) 81 mg PO DAILY [facility] Last Admin: 04/22/17 09:58 Dose: Not Given Atorvastatin Calcium (Lipitor) 20 mg PO HS [facility] Last Admin: 04/25/17 22:00 Dose: 20 mg Benzocaine/Menthol (Cepacol Sore Throat) 1 saumya PO Q3 PRN PRN Reason: Sore Throat Last Admin: 04/25/17 09:49 Dose: 1 saumya Calcium/Vitamin D (Oyster Shell Calcium/Vitamin D 500 Mg-200 Iu) 1 tab PO DAILY [facility] Last Admin: 04/25/17 09:40 Dose: 1 tab Cholecalciferol (Vitamin D) 1,000 intlu PO DAILY [facility] Last Admin: 04/25/17 09:39 Dose: 1,000 intlu Digoxin (Lanoxin) 0.125 mg PO DAILY [facility] Last Admin: 04/25/17 09:38 Dose: 0.125 mg Docusate Sodium (Colace) 100 mg PO BID PRN PRN Reason: Constipation Furosemide (Lasix) 40 mg IVP DAILY [facility] Last Admin: 04/25/17 09:39 Dose: 40 mg Guaifenesin/Dextromethorphan (Robitussin Dm) 10 ml PO Q4 [facility] Last Admin: 04/26/17 06:16 Dose: Not Given Heparin Sodium (Porcine) (Heparin) 5,000 units SC Q12 [facility] PRN Reason: Protocol Last Admin: 04/25/17 21:59 Dose: 5,000 units Milrinone Lactate/Dextrose (Primacor 20mg/100ml D5w) 100 mls @ 2.637 mls/hr IV .Q24H YUVAL; 0.125 MCG/KG/MIN PRN Reason: Protocol Last Admin: 04/26/17 01:19 Dose: 0.125 mcg/kg/min, 2.637 mls/hr Levothyroxine Sodium (Synthroid) 25 mcg PO DAILY@0630 [facility] Last Admin: 04/25/17 06:48 Dose: Not Given Losartan Potassium (Cozaar) 25 mg PO DAILY [facility] Last Admin: 04/25/17 09:36 Dose: 25 mg Metoprolol Succinate (Toprol Xl) 50 mg PO DAILY [facility] Last Admin: 04/25/17 09:39 Dose: 50 mg Multivitamins/Minerals (Therapeutic-M Tab) 1 tab PO DAILY [facility] Last Admin: 04/25/17 09:36 Dose: 1 tab Nitroglycerin (Nitrostat Sl Tab) 0.4 mg SL Q5MIN PRN PRN Reason: chest pain Last Admin: 04/24/17 06:55 Dose: 0.4 mg Nitroglycerin (Nitro-Bid 2% Oint) 1 ea TOP QID [facility] Last Admin: 04/25/17 22:03 Dose: 1 ea Vitamin E (Vitamin E 400 Units Cap) 400 intlu PO DAILY [facility] Last Admin: 04/25/17 09:36 Dose: 400 intlu - Labs Labs: 04/26/17 04:20 04/26/17 04:20 PT 11.2 Seconds (9.8-13.1) 04/17/17 17:10 INR 1.0 (0.9-1.2) 04/17/17 17:10 APTT 28.9 Seconds (25.6-37.1) 04/23/17 21:32 - Constitutional Appears: Well - Head Exam Head Exam: ATRAUMATIC, NORMAL INSPECTION, NORMOCEPHALIC - Eye Exam Eye Exam: EOMI, Normal appearance, PERRL Pupil Exam: NORMAL ACCOMODATION, PERRL - ENT Exam ENT Exam: Mucous Membranes Moist, Normal Exam - Neck Exam Neck Exam: Full ROM, Normal Inspection. absent: Lymphadenopathy - Respiratory Exam Respiratory Exam: Clear to Ausculation Bilateral, NORMAL BREATHING PATTERN - Cardiovascular Exam Cardiovascular Exam: REGULAR RHYTHM, +S1, +S2, Murmur - GI/Abdominal Exam GI & Abdominal Exam: Soft, Normal Bowel Sounds. absent: Tenderness - Extremities Exam Extremities Exam: Full ROM, Normal Capillary Refill, Normal Inspection. absent : Joint Swelling, Pedal Edema - Back Exam Back Exam: NORMAL INSPECTION - Neurological Exam Neurological Exam: Alert, Awake, CN II-XII Intact, Normal Gait, Oriented x3 - Psychiatric Exam Psychiatric exam: Normal Affect, Normal Mood - Skin Skin Exam: Dry, Intact, Normal Color, Warm Assessment and Plan (1) CHF (congestive heart failure) Assessment & Plan: cont milrinone gtt cont bb, arb trend bnp repeat RHCx in 3 days Status: Chronic (2) Chest pain Assessment & Plan: 2' to decompensated CHF diffused non-obstructive CAD cont asa Status: Acute (3) Dyspnea Status: Acute (4) Fatigue Status: Acute (5) NSTEMI (non-ST elevated myocardial infarction) Status: Acute (6) HLD (hyperlipidemia) Status: Chronic (7) HTN (hypertension) Status: Chronic (8) V-tach Assessment & Plan: cont amiodarone Status: Acute
[2017-04-26] MEDS: Levothyroxine 25 MCG TAB PO SCH (06:24)
--- NOTE | 2017-04-26 06:25 | CP.PCM.PN ---
Subjective - Date & Time of Evaluation Date of Evaluation: 04/24/17 Time of Evaluation: 16:00 - Subjective Subjective: feeling fine transferred to floor yesterday mild intermittent cp , pleuritic in nature Objective - Vital Signs/Intake and Output Vital Signs (last 24 hours): Temp Pulse Resp BP Pulse Ox 98.2 F 63 18 127/67 92 L 04/26/17 05:12 04/26/17 05:12 04/26/17 05:12 04/26/17 05:12 04/26/17 05:12 Intake and Output: 04/25/17 04/26/17 18:59 06:59 Intake Total 100 Balance 100 - Medications Medications: Current Medications Acetaminophen (Tylenol 325mg Tab) 650 mg PO Q4 PRN PRN Reason: Pain, moderate (4-7) Last Admin: 04/25/17 22:44 Dose: 650 mg Amiodarone HCl (Cordarone) 200 mg PO DAILY [facility] Last Admin: 04/25/17 09:40 Dose: 200 mg Anastrozole (Arimidex 1 Mg Tab) 1 mg PO DAILY [facility] Last Admin: 04/25/17 09:37 Dose: 1 mg Ascorbic Acid (Vitamin C 500 Mg Tab) 500 mg PO DAILY [facility] Last Admin: 04/25/17 09:39 Dose: 500 mg Aspirin (Ecotrin) 81 mg PO DAILY [facility] Last Admin: 04/22/17 09:58 Dose: Not Given Atorvastatin Calcium (Lipitor) 20 mg PO HS [facility] Last Admin: 04/25/17 22:00 Dose: 20 mg Benzocaine/Menthol (Cepacol Sore Throat) 1 saumya PO Q3 PRN PRN Reason: Sore Throat Last Admin: 04/25/17 09:49 Dose: 1 saumya Calcium/Vitamin D (Oyster Shell Calcium/Vitamin D 500 Mg-200 Iu) 1 tab PO DAILY [facility] Last Admin: 04/25/17 09:40 Dose: 1 tab Cholecalciferol (Vitamin D) 1,000 intlu PO DAILY [facility] Last Admin: 04/25/17 09:39 Dose: 1,000 intlu Digoxin (Lanoxin) 0.125 mg PO DAILY [facility] Last Admin: 04/25/17 09:38 Dose: 0.125 mg Docusate Sodium (Colace) 100 mg PO BID PRN PRN Reason: Constipation Furosemide (Lasix) 40 mg IVP DAILY [facility] Last Admin: 04/25/17 09:39 Dose: 40 mg Guaifenesin/Dextromethorphan (Robitussin Dm) 10 ml PO Q4 [facility] Last Admin: 04/26/17 06:16 Dose: Not Given Heparin Sodium (Porcine) (Heparin) 5,000 units SC Q12 [facility] PRN Reason: Protocol Last Admin: 04/25/17 21:59 Dose: 5,000 units Levothyroxine Sodium (Synthroid) 25 mcg PO DAILY@0630 [facility] Last Admin: 04/25/17 06:48 Dose: Not Given Losartan Potassium (Cozaar) 25 mg PO DAILY [facility] Last Admin: 04/25/17 09:36 Dose: 25 mg Metoprolol Succinate (Toprol Xl) 50 mg PO DAILY [facility] Last Admin: 04/25/17 09:39 Dose: 50 mg Multivitamins/Minerals (Therapeutic-M Tab) 1 tab PO DAILY [facility] Last Admin: 04/25/17 09:36 Dose: 1 tab Nitroglycerin (Nitrostat Sl Tab) 0.4 mg SL Q5MIN PRN PRN Reason: chest pain Last Admin: 04/24/17 06:55 Dose: 0.4 mg Nitroglycerin (Nitro-Bid 2% Oint) 1 ea TOP QID [facility] Last Admin: 04/25/17 22:03 Dose: 1 ea Vitamin E (Vitamin E 400 Units Cap) 400 intlu PO DAILY [facility] Last Admin: 04/25/17 09:36 Dose: 400 intlu - Labs Labs: 04/26/17 04:20 04/26/17 04:20 PT 11.2 Seconds (9.8-13.1) 04/17/17 17:10 INR 1.0 (0.9-1.2) 04/17/17 17:10 APTT 28.9 Seconds (25.6-37.1) 04/23/17 21:32 - Constitutional Appears: Well - Head Exam Head Exam: ATRAUMATIC, NORMAL INSPECTION, NORMOCEPHALIC - Eye Exam Eye Exam: EOMI, Normal appearance, PERRL Pupil Exam: NORMAL ACCOMODATION, PERRL - ENT Exam ENT Exam: Mucous Membranes Moist, Normal Exam - Neck Exam Neck Exam: Full ROM, Normal Inspection. absent: Lymphadenopathy - Respiratory Exam Respiratory Exam: Clear to Ausculation Bilateral, NORMAL BREATHING PATTERN - Cardiovascular Exam Cardiovascular Exam: REGULAR RHYTHM, +S1, +S2, Murmur - GI/Abdominal Exam GI & Abdominal Exam: Soft, Normal Bowel Sounds. absent: Tenderness - Extremities Exam Extremities Exam: Full ROM, Normal Capillary Refill, Normal Inspection. absent : Joint Swelling, Pedal Edema - Back Exam Back Exam: NORMAL INSPECTION - Neurological Exam Neurological Exam: Alert, Awake, CN II-XII Intact, Normal Gait, Oriented x3 - Psychiatric Exam Psychiatric exam: Normal Affect, Normal Mood - Skin Skin Exam: Dry, Intact, Normal Color, Warm Assessment and Plan (1) CHF (congestive heart failure) Status: Chronic (2) Chest pain Status: Acute (3) Dyspnea Status: Acute (4) Fatigue Status: Acute (5) NSTEMI (non-ST elevated myocardial infarction) Status: Acute (6) HLD (hyperlipidemia) Status: Chronic (7) HTN (hypertension) Status: Chronic (8) V-tach Status: Acute
--- NOTE | 2017-04-26 06:27 | CP.PCM.PN ---
Subjective - Date & Time of Evaluation Date of Evaluation: 04/26/17 Time of Evaluation: 06:25 - Subjective Subjective: feeling fine BNP slightly up from wednesday mild CP Objective - Vital Signs/Intake and Output Vital Signs (last 24 hours): Temp Pulse Resp BP Pulse Ox 98.2 F 63 18 127/67 92 L 04/26/17 05:12 04/26/17 05:12 04/26/17 05:12 04/26/17 05:12 04/26/17 05:12 Intake and Output: 04/25/17 04/26/17 18:59 06:59 Intake Total 100 Balance 100 - Medications Medications: Current Medications Acetaminophen (Tylenol 325mg Tab) 650 mg PO Q4 PRN PRN Reason: Pain, moderate (4-7) Last Admin: 04/25/17 22:44 Dose: 650 mg Amiodarone HCl (Cordarone) 200 mg PO DAILY [facility] Last Admin: 04/25/17 09:40 Dose: 200 mg Anastrozole (Arimidex 1 Mg Tab) 1 mg PO DAILY [facility] Last Admin: 04/25/17 09:37 Dose: 1 mg Ascorbic Acid (Vitamin C 500 Mg Tab) 500 mg PO DAILY [facility] Last Admin: 04/25/17 09:39 Dose: 500 mg Aspirin (Ecotrin) 81 mg PO DAILY [facility] Last Admin: 04/22/17 09:58 Dose: Not Given Atorvastatin Calcium (Lipitor) 20 mg PO HS [facility] Last Admin: 04/25/17 22:00 Dose: 20 mg Benzocaine/Menthol (Cepacol Sore Throat) 1 saumya PO Q3 PRN PRN Reason: Sore Throat Last Admin: 04/25/17 09:49 Dose: 1 saumya Calcium/Vitamin D (Oyster Shell Calcium/Vitamin D 500 Mg-200 Iu) 1 tab PO DAILY [facility] Last Admin: 04/25/17 09:40 Dose: 1 tab Cholecalciferol (Vitamin D) 1,000 intlu PO DAILY [facility] Last Admin: 04/25/17 09:39 Dose: 1,000 intlu Digoxin (Lanoxin) 0.125 mg PO DAILY [facility] Last Admin: 04/25/17 09:38 Dose: 0.125 mg Docusate Sodium (Colace) 100 mg PO BID PRN PRN Reason: Constipation Furosemide (Lasix) 40 mg IVP DAILY [facility] Last Admin: 04/25/17 09:39 Dose: 40 mg Guaifenesin/Dextromethorphan (Robitussin Dm) 10 ml PO Q4 [facility] Last Admin: 04/26/17 06:16 Dose: Not Given Heparin Sodium (Porcine) (Heparin) 5,000 units SC Q12 [facility] PRN Reason: Protocol Last Admin: 04/25/17 21:59 Dose: 5,000 units Levothyroxine Sodium (Synthroid) 25 mcg PO DAILY@0630 [facility] Last Admin: 04/25/17 06:48 Dose: Not Given Losartan Potassium (Cozaar) 25 mg PO DAILY [facility] Last Admin: 04/25/17 09:36 Dose: 25 mg Metoprolol Succinate (Toprol Xl) 50 mg PO DAILY [facility] Last Admin: 04/25/17 09:39 Dose: 50 mg Multivitamins/Minerals (Therapeutic-M Tab) 1 tab PO DAILY [facility] Last Admin: 04/25/17 09:36 Dose: 1 tab Nitroglycerin (Nitrostat Sl Tab) 0.4 mg SL Q5MIN PRN PRN Reason: chest pain Last Admin: 04/24/17 06:55 Dose: 0.4 mg Nitroglycerin (Nitro-Bid 2% Oint) 1 ea TOP QID [facility] Last Admin: 04/25/17 22:03 Dose: 1 ea Vitamin E (Vitamin E 400 Units Cap) 400 intlu PO DAILY [facility] Last Admin: 04/25/17 09:36 Dose: 400 intlu - Labs Labs: 04/26/17 04:20 04/26/17 04:20 PT 11.2 Seconds (9.8-13.1) 04/17/17 17:10 INR 1.0 (0.9-1.2) 04/17/17 17:10 APTT 28.9 Seconds (25.6-37.1) 04/23/17 21:32 - Constitutional Appears: Well - Head Exam Head Exam: ATRAUMATIC, NORMAL INSPECTION, NORMOCEPHALIC - Eye Exam Eye Exam: EOMI, Normal appearance, PERRL Pupil Exam: NORMAL ACCOMODATION, PERRL - ENT Exam ENT Exam: Mucous Membranes Moist, Normal Exam - Neck Exam Neck Exam: Full ROM, Normal Inspection. absent: Lymphadenopathy - Respiratory Exam Respiratory Exam: Clear to Ausculation Bilateral, NORMAL BREATHING PATTERN - Cardiovascular Exam Cardiovascular Exam: REGULAR RHYTHM, +S1, +S2, Murmur - GI/Abdominal Exam GI & Abdominal Exam: Soft, Normal Bowel Sounds. absent: Tenderness - Extremities Exam Extremities Exam: Full ROM, Normal Capillary Refill, Normal Inspection. absent : Joint Swelling, Pedal Edema - Back Exam Back Exam: NORMAL INSPECTION - Neurological Exam Neurological Exam: Alert, Awake, CN II-XII Intact, Normal Gait, Oriented x3 - Psychiatric Exam Psychiatric exam: Normal Affect, Normal Mood - Skin Skin Exam: Dry, Intact, Normal Color, Warm Assessment and Plan (1) CHF (congestive heart failure) Assessment & Plan: wean off milrinone start sildenafil 20mg po tid cont bb, arb cont amiodarone cont digoxin Status: Chronic (2) Chest pain Status: Acute (3) Dyspnea Status: Acute (4) Fatigue Status: Acute (5) NSTEMI (non-ST elevated myocardial infarction) Status: Acute (6) HLD (hyperlipidemia) Status: Chronic (7) HTN (hypertension) Status: Chronic (8) V-tach Status: Acute
--- NOTE | 2017-04-26 09:08 | CP.PCM.PN ---
Subjective - Date & Time of Evaluation Date of Evaluation: 04/26/17 Time of Evaluation: 09:07 - Subjective Subjective: dictated Objective - Vital Signs/Intake and Output Vital Signs (last 24 hours): Temp Pulse Resp BP Pulse Ox 98.2 F 63 18 127/67 92 L 04/26/17 05:12 04/26/17 05:12 04/26/17 05:12 04/26/17 05:12 04/26/17 05:12 Intake and Output: 04/26/17 04/26/17 06:59 18:59 Intake Total 100 Balance 100 - Medications Medications: Current Medications Acetaminophen (Tylenol 325mg Tab) 650 mg PO Q4 PRN PRN Reason: Pain, moderate (4-7) Last Admin: 04/25/17 22:44 Dose: 650 mg Amiodarone HCl (Cordarone) 200 mg PO DAILY [facility] Last Admin: 04/25/17 09:40 Dose: 200 mg Anastrozole (Arimidex 1 Mg Tab) 1 mg PO DAILY [facility] Last Admin: 04/25/17 09:37 Dose: 1 mg Ascorbic Acid (Vitamin C 500 Mg Tab) 500 mg PO DAILY [facility] Last Admin: 04/25/17 09:39 Dose: 500 mg Aspirin (Ecotrin) 81 mg PO DAILY [facility] Last Admin: 04/22/17 09:58 Dose: Not Given Atorvastatin Calcium (Lipitor) 20 mg PO HS [facility] Last Admin: 04/25/17 22:00 Dose: 20 mg Benzocaine/Menthol (Cepacol Sore Throat) 1 saumya PO Q3 PRN PRN Reason: Sore Throat Last Admin: 04/25/17 09:49 Dose: 1 saumya Calcium/Vitamin D (Oyster Shell Calcium/Vitamin D 500 Mg-200 Iu) 1 tab PO DAILY [facility] Last Admin: 04/25/17 09:40 Dose: 1 tab Cholecalciferol (Vitamin D) 1,000 intlu PO DAILY [facility] Last Admin: 04/25/17 09:39 Dose: 1,000 intlu Digoxin (Lanoxin) 0.125 mg PO DAILY [facility] Last Admin: 04/25/17 09:38 Dose: 0.125 mg Docusate Sodium (Colace) 100 mg PO BID PRN PRN Reason: Constipation Furosemide (Lasix) 40 mg IVP DAILY [facility] Last Admin: 04/25/17 09:39 Dose: 40 mg Guaifenesin/Dextromethorphan (Robitussin Dm) 10 ml PO Q4 [facility] Last Admin: 04/26/17 06:16 Dose: Not Given Heparin Sodium (Porcine) (Heparin) 5,000 units SC Q12 [facility] PRN Reason: Protocol Last Admin: 04/25/17 21:59 Dose: 5,000 units Home Med (Patient's Own Medication) 20 unit PO TID [facility] Levothyroxine Sodium (Synthroid) 25 mcg PO DAILY@0630 [facility] Last Admin: 04/26/17 06:24 Dose: 25 mcg Losartan Potassium (Cozaar) 25 mg PO DAILY [facility] Last Admin: 04/25/17 09:36 Dose: 25 mg Metoprolol Succinate (Toprol Xl) 50 mg PO DAILY [facility] Last Admin: 04/25/17 09:39 Dose: 50 mg Multivitamins/Minerals (Therapeutic-M Tab) 1 tab PO DAILY [facility] Last Admin: 04/25/17 09:36 Dose: 1 tab Nitroglycerin (Nitrostat Sl Tab) 0.4 mg SL Q5MIN PRN PRN Reason: chest pain Last Admin: 04/24/17 06:55 Dose: 0.4 mg Nitroglycerin (Nitro-Bid 2% Oint) 1 ea TOP QID [facility] Last Admin: 04/25/17 22:03 Dose: 1 ea Vitamin E (Vitamin E 400 Units Cap) 400 intlu PO DAILY [facility] Last Admin: 04/25/17 09:36 Dose: 400 intlu - Labs Labs: 04/26/17 04:20 04/26/17 04:20 PT 11.2 Seconds (9.8-13.1) 04/17/17 17:10 INR 1.0 (0.9-1.2) 04/17/17 17:10 APTT 28.9 Seconds (25.6-37.1) 04/23/17 21:32 Assessment and Plan (1) GINNY (acute kidney injury) Status: Acute
--- NOTE | 2017-04-26 09:22 | PN ---
CRITICAL CARE PROGRESS NOTE DATE: 04/24/2017 The patient in ICU, bed 433. TIME SPENT: 35 minutes. SUBJECTIVE: The patient is seen and evaluated at the bedside side. Case discussed with Pulmonary qm consultant and Hospitalist. An 81-year-old female with past medical history significant for cardiomyopathy status post AICD, arrhythmia status post ablation, coronary artery disease, CVA, chronic obstructive pulmonary disease, hypothyroidism, hypertension, hyperlipidemia, status post left mastectomy for breast cancer, status post chemo and radiation treatment, admitted through Emergency Room complaining of precordial pain with a positive troponin. Seen by Cardiology, underwent cardiac catheterization on 04/19/2017. Showed diffuse atherosclerotic heart disease, but non-obstructive and EF 20%, pulmonary artery pressure estimated 50, currently on milrinone drip. This morning, the patient complained of precordial pain, non responding to nitroglycerin, treated with morphine and remains pain free, but complaining of pain on and off. Denies shortness of breath. No palpitation. PHYSICAL EXAMINATION VITAL SIGNS: Temperature of 97.6, heart rate of 61, blood pressure 104/30, mean arterial pressure 54, respiratory rate 12, and saturation 96% on 2 liters nasal cannula. Intake 245 and output 300, negative balance 55. Weight 150 pounds. HEAD, EYES, EARS, NOSE AND THROAT: Atraumatic and normocephalic. Pupils are round, reactive to light and accommodation. Extraocular muscles intact. Conjunctivae pink. Sclerae white. NECK: Supple. CHEST: Bilateral fine crepitations. Bilateral scattered rhonchi. HEART: Rhythm regular. S1 and S2 normal. ABDOMEN: Bowel sounds present. Soft. EXTREMITIES: Normal capillary refill. No palpable cord. No calf tenderness. NEUROLOGIC: Nonfocal. LABORATORY DATA: WBC 8.7, hemoglobin 12.2, hematocrit 37.2 and platelet count of 200. PT 11.2, INR 1 and PTT 45.7. SMA-7; sodium 135, potassium 4, chloride 97, CO2 of 28, blood urea nitrogen 34, creatinine 1.3, glucose of 102, calcium 8.7, phosphorus 3.2 and magnesium 2. Troponin 0.08. ProBNP 1040. Urinalysis; rbc 30, wbc 1, hyaline cast 325. Serology influenza A and B negative. Microbiology; nasal smear MRSA negative. CURRENT MEDICATIONS: Tylenol 650 q.6 p.r.n., amiodarone 200 mg p.o. daily, anastrozole 1 mg p.o. daily, ascorbic acid 5 mg daily, Ecotrin 81 mg daily, Lipitor 20 mg at bedtime, Cepacol one lozenges p.o. q.3 p.r.n., calcium with vitamin D 1 tablet daily, vitamin D 1000 p.o. daily, digoxin 0.125 mg daily, Colace 100 mg twice daily, heparin 5000 units subcu q.12, Synthroid 825 mcg daily, Cozaar 25 mg p.o. daily, Toprol 50 mg p.o. daily, milrinone drip at 0.125 mcg per kg per minute, nitroglycerin tablet 0.4 p.r.n., nitroglycerin ointment 2% one topically q.i.d., vitamin E tablet 400 p.o. daily. IMPRESSION 1. Neuro: Alert, awake and follows commands appropriate. 2. Cardiac: Status post non-ST myocardial infarction, systolic and diastolic heart failure. Acute on chronic status post cardiac cath. No significant obstructive coronary artery disease. Ejection fraction estimated around 20, status post implantable cardioverter-defibrillator. Continue current medications. 3. Respiratory: Chronic obstructive lung disease, severe pulmonary hypertension probably related to congestive heart failure. Currently on milrinone drip. 4. Endocrine: Hypothyroidism, on levothyroxine supplement. Blood sugar random 142. 5. Hematology: Leukocytosis, resolving. Continue deep venous thrombosis and gastrointestinal prophylaxis. Normal hemoglobin and hematocrit. No coagulopathy noted. 6. Renal: Acute kidney injury probably prerenal, improving off spironolactone. Appreciate Nephrology follow up. 7. Infectious disease: No clear evidence of infection. Call placed to Dr. Angeles, to discuss with the plan milrinone and to address p.o. sildenafil for pulmonary hypertension. Prognosis remains guarded. Cullen Ogden MD
[2017-04-26] MEDS: Multivitamin With Minerals Tab PO SCH (09:43)
[2017-04-26] MEDS: Cholecalciferol 1,000 INTLU TAB PO SCH (09:44)
[2017-04-26] MEDS: Digoxin 125 mcg (0.125 mg) Tab PO SCH (09:44)
[2017-04-26] MEDS: Nitroglycerin 2% Ointment Foilpak UD TOP SCH (09:45)
[2017-04-26] MEDS: Calcium-Vit D 500 mg-200 Units Tab UD PO SCH (09:45)
[2017-04-26] MEDS: Metoprolol Succinate 50 mg XL Tab PO SCH (09:46)
--- NOTE | 2017-04-26 10:49 | CP.PCM.PN ---
Subjective - Date & Time of Evaluation Date of Evaluation: 04/26/17 Time of Evaluation: 10:00 - Subjective Subjective: Pt is in better spirit today denies CP at present however this am felt a slight sharp pain on her left lateral axillary area no SOB occ cough no abd pain Off Milrinone drip Objective - Vital Signs/Intake and Output Vital Signs (last 24 hours): Temp Pulse Resp BP Pulse Ox 98.2 F 64 18 131/61 92 L 04/26/17 05:12 04/26/17 09:46 04/26/17 05:12 04/26/17 09:46 04/26/17 05:12 Intake and Output: 04/26/17 04/26/17 06:59 18:59 Intake Total 100 Balance 100 - Medications Medications: Current Medications Acetaminophen (Tylenol 325mg Tab) 650 mg PO Q4 PRN PRN Reason: Pain, moderate (4-7) Last Admin: 04/25/17 22:44 Dose: 650 mg Amiodarone HCl (Cordarone) 200 mg PO DAILY [facility] Last Admin: 04/26/17 09:44 Dose: 200 mg Anastrozole (Arimidex 1 Mg Tab) 1 mg PO DAILY [facility] Last Admin: 04/26/17 09:42 Dose: 1 mg Ascorbic Acid (Vitamin C 500 Mg Tab) 500 mg PO DAILY [facility] Last Admin: 04/26/17 09:44 Dose: 500 mg Aspirin (Ecotrin) 81 mg PO DAILY [facility] Last Admin: 04/22/17 09:58 Dose: Not Given Atorvastatin Calcium (Lipitor) 20 mg PO HS [facility] Last Admin: 04/25/17 22:00 Dose: 20 mg Benzocaine/Menthol (Cepacol Sore Throat) 1 saumya PO Q3 PRN PRN Reason: Sore Throat Last Admin: 04/25/17 09:49 Dose: 1 saumya Calcium/Vitamin D (Oyster Shell Calcium/Vitamin D 500 Mg-200 Iu) 1 tab PO DAILY [facility] Last Admin: 04/26/17 09:45 Dose: 1 tab Cholecalciferol (Vitamin D) 1,000 intlu PO DAILY [facility] Last Admin: 04/26/17 09:44 Dose: 1,000 intlu Digoxin (Lanoxin) 0.125 mg PO DAILY [facility] Last Admin: 04/26/17 09:44 Dose: 0.125 mg Docusate Sodium (Colace) 100 mg PO BID PRN PRN Reason: Constipation Furosemide (Lasix) 40 mg IVP DAILY [facility] Last Admin: 04/26/17 09:45 Dose: 40 mg Guaifenesin/Dextromethorphan (Robitussin Dm) 10 ml PO Q4 [facility] Last Admin: 04/26/17 09:46 Dose: Not Given Heparin Sodium (Porcine) (Heparin) 5,000 units SC Q12 [facility] PRN Reason: Protocol Last Admin: 04/26/17 09:45 Dose: 5,000 units Levothyroxine Sodium (Synthroid) 25 mcg PO DAILY@0630 [facility] Last Admin: 04/26/17 06:24 Dose: 25 mcg Losartan Potassium (Cozaar) 25 mg PO DAILY [facility] Last Admin: 04/26/17 09:44 Dose: 25 mg Metoprolol Succinate (Toprol Xl) 50 mg PO DAILY [facility] Last Admin: 04/26/17 09:46 Dose: 50 mg Multivitamins/Minerals (Therapeutic-M Tab) 1 tab PO DAILY [facility] Last Admin: 04/26/17 09:43 Dose: 1 tab Nitroglycerin (Nitrostat Sl Tab) 0.4 mg SL Q5MIN PRN PRN Reason: chest pain Last Admin: 04/24/17 06:55 Dose: 0.4 mg Nitroglycerin (Nitro-Bid 2% Oint) 1 ea TOP QID [facility] Last Admin: 04/26/17 09:45 Dose: 1 ea Sildenafil Citrate (Revatio) 20 mg PO TID [facility] Vitamin E (Vitamin E 400 Units Cap) 400 intlu PO DAILY [facility] Last Admin: 04/26/17 09:46 Dose: 400 intlu - Labs Labs: 04/26/17 04:20 04/26/17 04:20 PT 11.2 Seconds (9.8-13.1) 04/17/17 17:10 INR 1.0 (0.9-1.2) 04/17/17 17:10 APTT 28.9 Seconds (25.6-37.1) 04/23/17 21:32 - Constitutional Appears: No Acute Distress - Head Exam Head Exam: NORMAL INSPECTION, NORMOCEPHALIC - Eye Exam Eye Exam: EOMI, Normal appearance Pupil Exam: NORMAL ACCOMMODATION - ENT Exam ENT Exam: Mucous Membranes Moist, Normal External Ear Exam - Neck Exam Neck Exam: Full ROM. absent: Meningismus - Respiratory Exam Respiratory Exam: minimal Rales bases, rhonchi, NORMAL BREATHING PATTERN. absent: Wheezes, Respiratory Distress - Cardiovascular Exam Cardiovascular Exam: REGULAR RHYTHM, +S1, +S2. absent: JVD - GI/Abdominal Exam GI & Abdominal Exam: Soft, Normal Bowel Sounds. absent: Tenderness - Extremities Exam Extremities Exam: Normal Capillary Refill. absent: Calf Tenderness, Pedal Edema - Back Exam Back Exam: absent: CVA tenderness (L), CVA tenderness (R) - Neurological Exam Neurological Exam: Alert, Awake, Oriented x3 Neuro motor strength exam: Left Upper Extremity: 4, Right Upper Extremity: 4, Left Lower Extremity: 4, Right Lower Extremity: 4 - Psychiatric Exam Psychiatric exam: Normal Affect, Normal Mood - Skin Skin Exam: Dry, Normal Color, Warm Assessment and Plan (1) NSTEMI (non-ST elevated myocardial infarction) Status: Acute (2) Systolic and diastolic CHF, acute on chronic Status: Acute (3) COPD (chronic obstructive pulmonary disease) Status: Chronic (4) Hypothyroidism Status: Chronic (5) Leukocytosis Status: Acute (6) DVT prophylaxis Status: Acute - Assessment and Plan (Free Text) Assessment: 81 y/o female with PMH of Cardiomyopathy s/p AICD, Arrhythmia s/p Ablation, CAD, CVA, COPD, Hypothyroidism, HTN, Hyperlipidemia,history of breast cancer s/ p left mastectomy , came in bec of left arm discomfort and some SOB. CXR showed Pulm Vascular congestion. Troponin were positive up to 3.0 Patient was admitted to ICU and started on heparin drip. Cardiology and pulmonary consulted. Her troponins trended down to 0.69 Went for cardiac cath 04/19 @ [facility] that showed diffuse artherosclerotic disease non obstructive ,EF 20 % ,high pulmonary artery pressures 50. She was started on Milrinone drip. Plan for Right Heart Cath . 1.NSTEMI (non-ST elevated myocardial infarction) resolved admitted with elevated Trop 3.0 that trended down 0.69 Cardiac Cath done 04/19 : diffuse artherosclerotic disease , non obstructive,EF 20 % , elevated Pulmonary artery pressure of 50 continue metoprolol ASA, Statin, BB and ARB cardiology following pt 2. Systolic and diastolic CHF, acute on chronic Pulmonary HTN, severe EF 20% as reported by cardiac cath cont BB and ARB BNP down tp 1040 Pt was on Milrinone drip as rec by Dr Alejo Discussed with Cardiology ( Dr alejo) d/c Milrinone drip and Nitro and start Sildenafil , Plan for Right Heart Cath cont 40mg bid Lasix cont Amiodarone and Digoxin 3. COPD (chronic obstructive pulmonary disease), stable Chronic Duoneb prn Dr Gomez following pt V/Q scan showed low probability PE 4.Hypothyroidism Chronic cont Levothyroxine 5. Leukocytosis and Cough leukocytosis now resolved , cough better pt has no fever empirically was on IV Ceftriaxone and Azithro- d/c 04/24 CXR 04/20 : no infiltrates continue Robitussin, cont Bronchodilators Influenza: negative 6. Acute Kidney Injury prob prerenal Cr 1.4 today d/c Aldactone Nephrology consulted: Dr Powell 7. Hematuria resolved likely traumatic urology consulted cont Heparin 8. DVT prophylaxis cont Heparin
--- NOTE | 2017-04-26 11:49 | CP.PCM.PN ---
Subjective - Date & Time of Evaluation Date of Evaluation: 04/26/17 Time of Evaluation: 11:47 - Subjective Subjective: The patient has been transferred to telemetry and is seen in 417 bed 2. She is lying in bed relatively comfortably although complaining of mild chest and left upper extremity pain this morning. She denies any shortness of breath. She seems somewhat lethargic and mildly confused. Her vital signs have remained stable. Her milrinone has been placed on hold. She remains on topical nitrates and when necessary nitroglycerin tablets. The neck is supple and trachea is midline. No neck vein distention is seen. There is no dullness on chest percussion. Breath sounds are slightly diminished bilaterally but no audible wheezing or rhonchi are heard. Few dry rales heard bilaterally. No bronchial breathing or egophony. The heart sounds are well heard and the rhythm is regular. The abdomen is soft and nontender with normal bowel sounds. No dependent edema or cyanosis. Nonischemic cardiomyopathy with recent non-STEMI. Severe pulmonary hypertension. Mild cigarette related chronic obstructive pulmonary disease. We'll discuss with cardiology further medical management. Question adding sildenafil in a patient with recent myocardial infarction. Continue all routine maintenance medications. Objective - Vital Signs/Intake and Output Vital Signs (last 24 hours): Temp Pulse Resp BP Pulse Ox 98.2 F 64 18 131/61 92 L 04/26/17 05:12 04/26/17 09:46 04/26/17 05:12 04/26/17 09:46 04/26/17 05:12 Intake and Output: 04/25/17 04/26/17 23:59 11:59 Intake Total 100 Balance 100 - Medications Medications: Current Medications Acetaminophen (Tylenol 325mg Tab) 650 mg PO Q4 PRN PRN Reason: Pain, moderate (4-7) Last Admin: 04/25/17 22:44 Dose: 650 mg Amiodarone HCl (Cordarone) 200 mg PO DAILY [facility] Last Admin: 04/26/17 09:44 Dose: 200 mg Anastrozole (Arimidex 1 Mg Tab) 1 mg PO DAILY [facility] Last Admin: 04/26/17 09:42 Dose: 1 mg Ascorbic Acid (Vitamin C 500 Mg Tab) 500 mg PO DAILY [facility] Last Admin: 04/26/17 09:44 Dose: 500 mg Aspirin (Ecotrin) 81 mg PO DAILY [facility] Last Admin: 04/22/17 09:58 Dose: Not Given Atorvastatin Calcium (Lipitor) 20 mg PO HS [facility] Last Admin: 04/25/17 22:00 Dose: 20 mg Benzocaine/Menthol (Cepacol Sore Throat) 1 saumya PO Q3 PRN PRN Reason: Sore Throat Last Admin: 04/25/17 09:49 Dose: 1 saumya Calcium/Vitamin D (Oyster Shell Calcium/Vitamin D 500 Mg-200 Iu) 1 tab PO DAILY [facility] Last Admin: 04/26/17 09:45 Dose: 1 tab Cholecalciferol (Vitamin D) 1,000 intlu PO DAILY [facility] Last Admin: 04/26/17 09:44 Dose: 1,000 intlu Digoxin (Lanoxin) 0.125 mg PO DAILY [facility] Last Admin: 04/26/17 09:44 Dose: 0.125 mg Docusate Sodium (Colace) 100 mg PO BID PRN PRN Reason: Constipation Furosemide (Lasix) 40 mg IVP DAILY [facility] Last Admin: 04/26/17 09:45 Dose: 40 mg Guaifenesin/Dextromethorphan (Robitussin Dm) 10 ml PO Q4 [facility] Last Admin: 04/26/17 09:46 Dose: Not Given Heparin Sodium (Porcine) (Heparin) 5,000 units SC Q12 [facility] PRN Reason: Protocol Last Admin: 04/26/17 09:45 Dose: 5,000 units Levothyroxine Sodium (Synthroid) 25 mcg PO DAILY@0630 [facility] Last Admin: 04/26/17 06:24 Dose: 25 mcg Losartan Potassium (Cozaar) 25 mg PO DAILY [facility] Last Admin: 04/26/17 09:44 Dose: 25 mg Metoprolol Succinate (Toprol Xl) 50 mg PO DAILY [facility] Last Admin: 04/26/17 09:46 Dose: 50 mg Multivitamins/Minerals (Therapeutic-M Tab) 1 tab PO DAILY [facility] Last Admin: 04/26/17 09:43 Dose: 1 tab Nitroglycerin (Nitrostat Sl Tab) 0.4 mg SL Q5MIN PRN PRN Reason: chest pain Last Admin: 04/24/17 06:55 Dose: 0.4 mg Nitroglycerin (Nitro-Bid 2% Oint) 1 ea TOP QID [facility] Last Admin: 04/26/17 09:45 Dose: 1 ea Sildenafil Citrate (Revatio) 20 mg PO TID [facility] Vitamin E (Vitamin E 400 Units Cap) 400 intlu PO DAILY [facility] Last Admin: 04/26/17 09:46 Dose: 400 intlu - Labs Labs: 04/26/17 04:20 04/26/17 04:20 PT 11.2 Seconds (9.8-13.1) 04/17/17 17:10 INR 1.0 (0.9-1.2) 04/17/17 17:10 APTT 28.9 Seconds (25.6-37.1) 04/23/17 21:32 Assessment and Plan (1) Low cardiac output syndrome Status: Chronic (2) Cardiomyopathy Status: Chronic (3) CAD (coronary artery disease) Status: Chronic (4) COPD (chronic obstructive pulmonary disease) Status: Chronic (5) Hypothyroidism Status: Chronic
[2017-04-26] MEDS: Sildenafil 20 MG TAB PO SCH ×2 (16:27→22:37)
[2017-04-27] MEDS: guaiFENesin DM 200 mg-20 mg/10 ml UD PO SCH ×6 (01:32→23:01)
[2017-04-27] MEDS: Levothyroxine 25 MCG TAB PO SCH (05:48)
--- NOTE | 2017-04-27 09:01 | PN ---
DATE: SUBJECTIVE: The patient is doing much better clinically. No chest pain. No significant shortness of breath was noted. PHYSICAL EXAMINATION: VITAL SIGNS: Noted to be normal with normal temperature, pulse 63. NECK: Supple. CHEST: Few rhonchi. HEART: No rubs. ABDOMEN: Soft. EXTREMITIES: No edema. LABORATORY DATA: Showed creatinine has gone up to 1.4 from 1.2 with a sodium stable at 135, CO2 32. IMPRESSION: I see slight worsening of the kidney function along with dropping of serum chloride, serum sodium, and rising CO2. These are consistent with diuretics induced perhaps. RECOMMENDATION: My recommendation to hold off Lasix if okay with the primary team and the traveling nurse at least for couple of days and see what happens. Collin Powell MD
[2017-04-27] MEDS: Digoxin 125 mcg (0.125 mg) Tab PO SCH (09:35)
[2017-04-27] MEDS: Metoprolol Succinate 50 mg XL Tab PO SCH (09:36)
[2017-04-27] MEDS: Sildenafil 20 MG TAB PO SCH ×3 (09:36→17:43)
[2017-04-27] MEDS: Calcium-Vit D 500 mg-200 Units Tab UD PO SCH (09:36)
[2017-04-27] MEDS: Multivitamin With Minerals Tab PO SCH (09:36)
[2017-04-27] MEDS: Cholecalciferol 1,000 INTLU TAB PO SCH (09:37)
--- NOTE | 2017-04-27 10:56 | CP.PCM.PN ---
Subjective - Date & Time of Evaluation Date of Evaluation: 04/27/17 Time of Evaluation: 10:54 - Subjective Subjective: Seated up in bed. Still complains of fatigue. Off nitrates. Started on sildenafil last night. Vital signs are stable. SpO2 91% on room air. Neck supple and trachea midline. No JVD. Breath sounds are diminished bilaterally w/o wheezes. Few scattered dry rales in dependant regions of both lungs. No dependant edema, no cyanosis. Heart sounds are slightly distant, rhythm regular. Apparent plan for right heart cath tomorrow. Medical regimen will remain the same. Objective - Vital Signs/Intake and Output Vital Signs (last 24 hours): Temp Pulse Resp BP Pulse Ox 98.0 F 63 18 123/70 93 L 04/27/17 08:43 04/27/17 09:36 04/27/17 08:43 04/27/17 09:36 04/27/17 08:43 - Medications Medications: Current Medications Acetaminophen (Tylenol 325mg Tab) 650 mg PO Q4 PRN PRN Reason: Pain, moderate (4-7) Last Admin: 04/25/17 22:44 Dose: 650 mg Amiodarone HCl (Cordarone) 200 mg PO DAILY [facility] Last Admin: 04/26/17 09:44 Dose: 200 mg Anastrozole (Arimidex 1 Mg Tab) 1 mg PO DAILY [facility] Last Admin: 04/27/17 09:34 Dose: 1 mg Ascorbic Acid (Vitamin C 500 Mg Tab) 500 mg PO DAILY [facility] Last Admin: 04/26/17 09:44 Dose: 500 mg Aspirin (Ecotrin) 81 mg PO DAILY [facility] Last Admin: 04/26/17 18:54 Dose: Not Given Atorvastatin Calcium (Lipitor) 20 mg PO HS [facility] Last Admin: 04/26/17 22:44 Dose: 20 mg Benzocaine/Menthol (Cepacol Sore Throat) 1 saumya PO Q3 PRN PRN Reason: Sore Throat Last Admin: 04/25/17 09:49 Dose: 1 saumya Calcium/Vitamin D (Oyster Shell Calcium/Vitamin D 500 Mg-200 Iu) 1 tab PO DAILY [facility] Last Admin: 04/27/17 09:36 Dose: 1 tab Cholecalciferol (Vitamin D) 1,000 intlu PO DAILY [facility] Last Admin: 04/27/17 09:37 Dose: 1,000 intlu Digoxin (Lanoxin) 0.125 mg PO DAILY [facility] Last Admin: 04/27/17 09:35 Dose: 0.125 mg Docusate Sodium (Colace) 100 mg PO BID PRN PRN Reason: Constipation Furosemide (Lasix) 40 mg IVP DAILY [facility] Last Admin: 04/27/17 09:35 Dose: 40 mg Guaifenesin/Dextromethorphan (Robitussin Dm) 10 ml PO Q4 [facility] Last Admin: 04/27/17 09:36 Dose: 10 ml Heparin Sodium (Porcine) (Heparin) 5,000 units SC Q12 [facility] PRN Reason: Protocol Last Admin: 04/27/17 09:35 Dose: 5,000 units Levothyroxine Sodium (Synthroid) 25 mcg PO DAILY@0630 [facility] Last Admin: 04/27/17 05:48 Dose: 25 mcg Losartan Potassium (Cozaar) 25 mg PO DAILY [facility] Last Admin: 04/27/17 09:34 Dose: 25 mg Metoprolol Succinate (Toprol Xl) 50 mg PO DAILY [facility] Last Admin: 04/27/17 09:36 Dose: 50 mg Multivitamins/Minerals (Therapeutic-M Tab) 1 tab PO DAILY [facility] Last Admin: 04/27/17 09:36 Dose: 1 tab Sildenafil Citrate (Revatio) 20 mg PO TID [facility] Last Admin: 04/27/17 09:36 Dose: 20 mg Vitamin E (Vitamin E 400 Units Cap) 400 intlu PO DAILY [facility] Last Admin: 04/27/17 09:38 Dose: 400 intlu - Labs Labs: 04/26/17 04:20 04/26/17 04:20 PT 11.2 Seconds (9.8-13.1) 04/17/17 17:10 INR 1.0 (0.9-1.2) 04/17/17 17:10 APTT 28.9 Seconds (25.6-37.1) 04/23/17 21:32 Assessment and Plan (1) Low cardiac output syndrome Status: Chronic (2) Cardiomyopathy Status: Chronic (3) CAD (coronary artery disease) Status: Chronic (4) COPD (chronic obstructive pulmonary disease) Status: Chronic (5) Hypothyroidism Status: Chronic
--- NOTE | 2017-04-27 16:44 | CP.PCM.PN ---
Subjective - Date & Time of Evaluation Date of Evaluation: 04/27/17 Time of Evaluation: 16:42 - Subjective Subjective: c/o left sided sharp pain last night breathing improved off milrinone started on sildenafil yesterday Objective - Vital Signs/Intake and Output Vital Signs (last 24 hours): Temp Pulse Resp BP Pulse Ox 97.4 F L 74 20 123/72 97 04/27/17 16:21 04/27/17 16:21 04/27/17 16:21 04/27/17 16:21 04/27/17 16:21 - Medications Medications: Current Medications Acetaminophen (Tylenol 325mg Tab) 650 mg PO Q4 PRN PRN Reason: Pain, moderate (4-7) Last Admin: 04/25/17 22:44 Dose: 650 mg Amiodarone HCl (Cordarone) 200 mg PO DAILY [facility] Last Admin: 04/27/17 14:22 Dose: 200 mg Anastrozole (Arimidex 1 Mg Tab) 1 mg PO DAILY [facility] Last Admin: 04/27/17 09:34 Dose: 1 mg Ascorbic Acid (Vitamin C 500 Mg Tab) 500 mg PO DAILY [facility] Last Admin: 04/27/17 14:24 Dose: 500 mg Aspirin (Ecotrin) 81 mg PO DAILY [facility] Last Admin: 04/26/17 18:54 Dose: Not Given Atorvastatin Calcium (Lipitor) 20 mg PO HS [facility] Last Admin: 04/26/17 22:44 Dose: 20 mg Benzocaine/Menthol (Cepacol Sore Throat) 1 saumya PO Q3 PRN PRN Reason: Sore Throat Last Admin: 04/25/17 09:49 Dose: 1 saumya Calcium/Vitamin D (Oyster Shell Calcium/Vitamin D 500 Mg-200 Iu) 1 tab PO DAILY [facility] Last Admin: 04/27/17 09:36 Dose: 1 tab Cholecalciferol (Vitamin D) 1,000 intlu PO DAILY [facility] Last Admin: 04/27/17 09:37 Dose: 1,000 intlu Digoxin (Lanoxin) 0.125 mg PO DAILY [facility] Last Admin: 04/27/17 09:35 Dose: 0.125 mg Docusate Sodium (Colace) 100 mg PO BID PRN PRN Reason: Constipation Furosemide (Lasix) 40 mg IVP DAILY [facility] Last Admin: 04/27/17 09:35 Dose: 40 mg Guaifenesin/Dextromethorphan (Robitussin Dm) 10 ml PO Q4 [facility] Last Admin: 04/27/17 14:23 Dose: 10 ml Heparin Sodium (Porcine) (Heparin) 5,000 units SC Q12 [facility] PRN Reason: Protocol Last Admin: 04/27/17 09:35 Dose: 5,000 units Levothyroxine Sodium (Synthroid) 25 mcg PO DAILY@0630 [facility] Last Admin: 04/27/17 05:48 Dose: 25 mcg Losartan Potassium (Cozaar) 25 mg PO DAILY [facility] Last Admin: 04/27/17 09:34 Dose: 25 mg Metoprolol Succinate (Toprol Xl) 50 mg PO DAILY [facility] Last Admin: 04/27/17 09:36 Dose: 50 mg Multivitamins/Minerals (Therapeutic-M Tab) 1 tab PO DAILY [facility] Last Admin: 04/27/17 09:36 Dose: 1 tab Sildenafil Citrate (Revatio) 20 mg PO TID [facility] Last Admin: 04/27/17 14:23 Dose: 20 mg Vitamin E (Vitamin E 400 Units Cap) 400 intlu PO DAILY [facility] Last Admin: 04/27/17 09:38 Dose: 400 intlu - Labs Labs: 04/26/17 04:20 04/26/17 04:20 PT 11.2 Seconds (9.8-13.1) 04/17/17 17:10 INR 1.0 (0.9-1.2) 04/17/17 17:10 APTT 28.9 Seconds (25.6-37.1) 04/23/17 21:32 - Constitutional Appears: Well - Head Exam Head Exam: ATRAUMATIC, NORMAL INSPECTION, NORMOCEPHALIC - Eye Exam Eye Exam: EOMI, Normal appearance, PERRL Pupil Exam: NORMAL ACCOMODATION, PERRL - ENT Exam ENT Exam: Mucous Membranes Moist, Normal Exam - Neck Exam Neck Exam: Full ROM, Normal Inspection. absent: Lymphadenopathy - Respiratory Exam Respiratory Exam: Clear to Ausculation Bilateral, NORMAL BREATHING PATTERN - Cardiovascular Exam Cardiovascular Exam: REGULAR RHYTHM, +S1, +S2, Murmur - GI/Abdominal Exam GI & Abdominal Exam: Soft, Normal Bowel Sounds. absent: Tenderness - Extremities Exam Extremities Exam: Full ROM, Normal Capillary Refill, Normal Inspection. absent : Joint Swelling, Pedal Edema - Back Exam Back Exam: NORMAL INSPECTION - Neurological Exam Neurological Exam: Alert, Awake, CN II-XII Intact, Oriented x3 - Psychiatric Exam Psychiatric exam: Normal Affect, Normal Mood - Skin Skin Exam: Dry, Intact, Normal Color, Warm Assessment and Plan (1) CHF (congestive heart failure) Assessment & Plan: stable improving cont current meds plan for repeat RHCx tomorrow cont with dig, lasix cont bb, arbs Status: Chronic (2) Chest pain Status: Acute (3) Dyspnea Status: Acute (4) Fatigue Status: Acute (5) NSTEMI (non-ST elevated myocardial infarction) Assessment & Plan: cont with asa , bb Status: Acute (6) HLD (hyperlipidemia) Status: Chronic (7) HTN (hypertension) Status: Chronic (8) V-tach Assessment & Plan: cont amiodarone Status: Acute
--- NOTE | 2017-04-27 19:31 | CP.PCM.PN ---
Subjective - Date & Time of Evaluation Date of Evaluation: 04/27/17 Time of Evaluation: 11:00 - Subjective Subjective: Patient seen and examined bedside. Lying in bed in nAD. apperas very weak and tired .Has not been ambulating since admission Off Milrinone drip since yesterday . Denies any chest pain or SOB Cough is better No acute issues overnight For right sided cardiac cath in AM Objective - Vital Signs/Intake and Output Vital Signs (last 24 hours): Temp Pulse Resp BP Pulse Ox 97.6 F 73 20 92/58 L 95 04/27/17 19:25 04/27/17 19:25 04/27/17 19:25 04/27/17 19:25 04/27/17 19:25 - Medications Medications: Current Medications Acetaminophen (Tylenol 325mg Tab) 650 mg PO Q4 PRN PRN Reason: Pain, moderate (4-7) Last Admin: 04/25/17 22:44 Dose: 650 mg Amiodarone HCl (Cordarone) 200 mg PO DAILY [facility] Last Admin: 04/27/17 14:22 Dose: 200 mg Anastrozole (Arimidex 1 Mg Tab) 1 mg PO DAILY [facility] Last Admin: 04/27/17 09:34 Dose: 1 mg Ascorbic Acid (Vitamin C 500 Mg Tab) 500 mg PO DAILY [facility] Last Admin: 04/27/17 14:24 Dose: 500 mg Aspirin (Ecotrin) 81 mg PO DAILY [facility] Last Admin: 04/26/17 18:54 Dose: Not Given Atorvastatin Calcium (Lipitor) 20 mg PO HS [facility] Last Admin: 04/26/17 22:44 Dose: 20 mg Benzocaine/Menthol (Cepacol Sore Throat) 1 saumya PO Q3 PRN PRN Reason: Sore Throat Last Admin: 04/25/17 09:49 Dose: 1 saumya Calcium/Vitamin D (Oyster Shell Calcium/Vitamin D 500 Mg-200 Iu) 1 tab PO DAILY [facility] Last Admin: 04/27/17 09:36 Dose: 1 tab Cholecalciferol (Vitamin D) 1,000 intlu PO DAILY [facility] Last Admin: 04/27/17 09:37 Dose: 1,000 intlu Digoxin (Lanoxin) 0.125 mg PO DAILY [facility] Last Admin: 04/27/17 09:35 Dose: 0.125 mg Docusate Sodium (Colace) 100 mg PO BID PRN PRN Reason: Constipation Furosemide (Lasix) 40 mg IVP DAILY [facility] Last Admin: 04/27/17 09:35 Dose: 40 mg Guaifenesin/Dextromethorphan (Robitussin Dm) 10 ml PO Q4 [facility] Last Admin: 04/27/17 17:44 Dose: 10 ml Heparin Sodium (Porcine) (Heparin) 5,000 units SC Q12 [facility] PRN Reason: Protocol Last Admin: 04/27/17 09:35 Dose: 5,000 units Levothyroxine Sodium (Synthroid) 25 mcg PO DAILY@0630 [facility] Last Admin: 04/27/17 05:48 Dose: 25 mcg Losartan Potassium (Cozaar) 25 mg PO DAILY [facility] Last Admin: 04/27/17 09:34 Dose: 25 mg Metoprolol Succinate (Toprol Xl) 50 mg PO DAILY [facility] Last Admin: 04/27/17 09:36 Dose: 50 mg Multivitamins/Minerals (Therapeutic-M Tab) 1 tab PO DAILY [facility] Last Admin: 04/27/17 09:36 Dose: 1 tab Sildenafil Citrate (Revatio) 20 mg PO TID [facility] Last Admin: 04/27/17 17:43 Dose: 20 mg Vitamin E (Vitamin E 400 Units Cap) 400 intlu PO DAILY [facility] Last Admin: 04/27/17 09:38 Dose: 400 intlu - Labs Labs: 04/26/17 04:20 04/26/17 04:20 PT 11.2 Seconds (9.8-13.1) 04/17/17 17:10 INR 1.0 (0.9-1.2) 04/17/17 17:10 APTT 28.9 Seconds (25.6-37.1) 04/23/17 21:32 - Constitutional Appears: Non-toxic, Chronically Ill, Other (weak and tired ) - Head Exam Head Exam: ATRAUMATIC, NORMOCEPHALIC - Eye Exam Eye Exam: EOMI, Normal appearance, PERRL Pupil Exam: NORMAL ACCOMODATION - ENT Exam ENT Exam: Mucous Membranes Moist, Normal Exam - Neck Exam Neck Exam: Full ROM, Normal Inspection - Respiratory Exam Respiratory Exam: Clear to Ausculation Bilateral, NORMAL BREATHING PATTERN. absent: Rhonchi, Wheezes, Respiratory Distress - Cardiovascular Exam Cardiovascular Exam: REGULAR RHYTHM, RRR, +S1, +S2. absent: JVD - GI/Abdominal Exam GI & Abdominal Exam: Soft, Normal Bowel Sounds. absent: Distended, Tenderness, Rebound - Rectal Exam Rectal Exam: Deferred - Extremities Exam Extremities Exam: Full ROM, Normal Capillary Refill, Normal Inspection. absent : Pedal Edema - Back Exam Back Exam: NORMAL INSPECTION - Neurological Exam Neurological Exam: Alert, Awake, CN II-XII Intact, Oriented x3 - Psychiatric Exam Psychiatric exam: Flat Affect Additional comments: weak , tired - Skin Skin Exam: Dry, Pallor, Warm Assessment and Plan - Assessment and Plan (Free Text) Assessment: 81 y/o female with PMH of Cardiomyopathy s/p AICD, Arrhythmia s/p Ablation, CAD, CVA, COPD, Hypothyroidism, HTN, Hyperlipidemia,history of breast cancer s/ p left mastectomy , came in bec of left arm discomfort and some SOB. CXR showed Pulm Vascular congestion. Troponin were positive up to 3.0 Patient was admitted to ICU and started on heparin drip. Cardiology and pulmonary consulted. Her troponins trended down to 0.69 Went for cardiac cath 04/19 @ [facility] that showed diffuse artherosclerotic disease non obstructive ,EF 20 % ,high pulmonary artery pressures 50. She was started on Milrinone drip. Off milrinone drip and nitrates since yesterday. Started in sildenafil as per cardio Plan for Right Heart Cath in AM 1.NSTEMI (non-ST elevated myocardial infarction) resolved admitted with elevated Trop 3.0 that trended down 0.69 Cardiac Cath done 04/19 : diffuse artherosclerotic disease , non obstructive,EF 20 % , elevated Pulmonary artery pressure of 50 continue metoprolol ASA, Statin, BB and ARB cardiology following pt plan for right sided cardiac cath in AM 2. Systolic and diastolic CHF, acute on chronic Pulmonary HTN, severe EF 20% as reported by cardiac cath cont BB and ARB BNP down tp 1220 Pt was on Milrinone drip as rec by Dr Da Silva. OffMilrinone drip and nitrates since yesterday started on Sildenafil as per cradio Plan for Right Heart Cath in AM cont 40 mg bid Lasix cont Amiodarone and Digoxin 3. COPD (chronic obstructive pulmonary disease), stable Chronic Duoneb prn Dr Gomez following pt V/Q scan showed low probability PE 4.Hypothyroidism Chronic cont Levothyroxine 5. Leukocytosis and Cough leukocytosis now resolved , cough better pt has no fever empirically was on IV Ceftriaxone and Azithro- d/c 04/24 CXR 04/20 : no infiltrates continue Robitussin, cont Bronchodilators Influenza: negative 6. Acute Kidney Injury prob prerenal Cr 1.4 today d/c Aldactone Nephrology consulted: Dr Powell Close monitoring since patient is going again for cardiac cath in AM 7. Hematuria resolved likely traumatic urology consulted cont Heparin 8. DVT prophylaxis cont Heparin
[2017-04-28 05:24] LABS: HEMOGLOBIN 13.2 g/dL (12.0-16.0); MEAN CELL VOLUME 94.1 fl (81.0-99.0); MEAN CORPUSCULAR HEMOGLOBIN 31.3 pg (27.0-31.0); MEAN CORPUSCULAR HGB CONC 33.3 g/dL (33.0-37.0); RBC 4.21 Mil/uL (3.80-5.20); RED CELL DISTRIBUTION WIDTH 13.5 % (11.5-14.5); WHITE BLOOD COUNT 12.8 K/uL (4.8-10.8)
[2017-04-28 05:39] LABS: CALCIUM 9.5 mg/dL (8.4-10.2)
[2017-04-28] MEDS: Levothyroxine 25 MCG TAB PO SCH (05:39)
[2017-04-28] MEDS: guaiFENesin DM 200 mg-20 mg/10 ml UD PO SCH ×5 (05:39→21:52)
[2017-04-28] MEDS: Metoprolol Succinate 50 mg XL Tab PO SCH (08:55)
[2017-04-28] MEDS: Digoxin 125 mcg (0.125 mg) Tab PO SCH (08:57)
[2017-04-28 08:58] VITALS: PULSE 96
[2017-04-28] MEDS: Multivitamin With Minerals Tab PO SCH (08:59)
[2017-04-28] MEDS: Cholecalciferol 1,000 INTLU TAB PO SCH (08:59)
[2017-04-28] MEDS: Calcium-Vit D 500 mg-200 Units Tab UD PO SCH (08:59)
[2017-04-28] MEDS: Sildenafil 20 MG TAB PO SCH ×3 (08:59→17:22)
--- NOTE | 2017-04-28 09:49 | CP.PCM.PN ---
Subjective - Date & Time of Evaluation Date of Evaluation: 04/28/17 Time of Evaluation: 09:46 - Subjective Subjective: Spoke with cardiology. Right heart cath scheduled for this morning. Patient seems a little more confused, doesn't remember discussion with vision care associate. Still has periodic complaint of left lateral lower chest pain which appears to be non-cardiac. No tenderness on palpation, no skin eruption. Breath sounds are diminished, but w/o wheeze or rub. Few dry basal rales. No dependant edema or cyanosis. Will plan for non-contrast CT chest later today. May require bone scan as well considering breast cancer history. Objective - Vital Signs/Intake and Output Vital Signs (last 24 hours): Temp Pulse Resp BP Pulse Ox 98.3 F 96 H 18 124/73 96 04/28/17 08:00 04/28/17 08:56 04/28/17 08:00 04/28/17 08:56 04/28/17 08:00 Intake and Output: 04/27/17 04/28/17 23:59 11:59 Intake Total 240 Output Total 175 Balance 65 - Medications Medications: Current Medications Acetaminophen (Tylenol 325mg Tab) 650 mg PO Q4 PRN PRN Reason: Pain, moderate (4-7) Last Admin: 04/25/17 22:44 Dose: 650 mg Amiodarone HCl (Cordarone) 200 mg PO DAILY [facility] Last Admin: 04/28/17 08:56 Dose: 200 mg Anastrozole (Arimidex 1 Mg Tab) 1 mg PO DAILY [facility] Last Admin: 04/28/17 09:00 Dose: Not Given Ascorbic Acid (Vitamin C 500 Mg Tab) 500 mg PO DAILY [facility] Last Admin: 04/28/17 08:59 Dose: Not Given Aspirin (Ecotrin) 81 mg PO DAILY [facility] Last Admin: 04/26/17 18:54 Dose: Not Given Atorvastatin Calcium (Lipitor) 20 mg PO HS [facility] Last Admin: 04/27/17 23:02 Dose: 20 mg Benzocaine/Menthol (Cepacol Sore Throat) 1 saumya PO Q3 PRN PRN Reason: Sore Throat Last Admin: 04/25/17 09:49 Dose: 1 saumya Calcium/Vitamin D (Oyster Shell Calcium/Vitamin D 500 Mg-200 Iu) 1 tab PO DAILY [facility] Last Admin: 04/28/17 08:59 Dose: Not Given Cholecalciferol (Vitamin D) 1,000 intlu PO DAILY [facility] Last Admin: 04/28/17 08:59 Dose: Not Given Digoxin (Lanoxin) 0.125 mg PO DAILY [facility] Last Admin: 04/28/17 08:57 Dose: 0.125 mg Docusate Sodium (Colace) 100 mg PO BID PRN PRN Reason: Constipation Furosemide (Lasix) 40 mg IVP DAILY [facility] Last Admin: 04/28/17 08:58 Dose: Not Given Guaifenesin/Dextromethorphan (Robitussin Dm) 10 ml PO Q4 [facility] Last Admin: 04/28/17 08:59 Dose: Not Given Heparin Sodium (Porcine) (Heparin) 5,000 units SC Q12 [facility] PRN Reason: Protocol Last Admin: 04/28/17 08:58 Dose: Not Given Levothyroxine Sodium (Synthroid) 25 mcg PO DAILY@0630 [facility] Last Admin: 04/28/17 05:39 Dose: 25 mcg Losartan Potassium (Cozaar) 25 mg PO DAILY [facility] Last Admin: 04/28/17 08:56 Dose: 25 mg Metoprolol Succinate (Toprol Xl) 50 mg PO DAILY [facility] Last Admin: 04/28/17 08:55 Dose: 50 mg Multivitamins/Minerals (Therapeutic-M Tab) 1 tab PO DAILY [facility] Last Admin: 04/28/17 08:59 Dose: Not Given Sildenafil Citrate (Revatio) 20 mg PO TID [facility] Last Admin: 04/28/17 08:59 Dose: Not Given Vitamin E (Vitamin E 400 Units Cap) 400 intlu PO DAILY [facility] Last Admin: 04/28/17 09:00 Dose: Not Given - Labs Labs: 04/28/17 04:20 04/28/17 04:20 PT 11.2 Seconds (9.8-13.1) 04/17/17 17:10 INR 1.0 (0.9-1.2) 04/17/17 17:10 APTT 28.9 Seconds (25.6-37.1) 04/23/17 21:32 Assessment and Plan (1) Low cardiac output syndrome Status: Chronic (2) Cardiomyopathy Status: Chronic (3) CAD (coronary artery disease) Status: Chronic (4) COPD (chronic obstructive pulmonary disease) Status: Chronic (5) Hypothyroidism Status: Chronic
[2017-04-28 17:51] LABS: ALBUMIN 3.7 g/dL (3.5-5.0); CALCIUM 8.9 mg/dL (8.4-10.2)
--- NOTE | 2017-04-28 20:21 | CP.PCM.PN ---
Subjective - Date & Time of Evaluation Date of Evaluation: 04/28/17 Time of Evaluation: 17:00 - Subjective Subjective: Patient seen and examined bedside, post right sided cardiac cath . In telemetry unit , denies any chest pain or SOB.With episodes of non sustained VT on monitor , on her way to hospital from [facility] and was started on Amiodarone drip as per home health administrator. At present back in sinus paced rhythm on monitor with first degree AV block Digoxin levels 2.7 ( elevated) BP 104/67 HR 60 Objective - Vital Signs/Intake and Output Vital Signs (last 24 hours): Temp Pulse Resp BP Pulse Ox 97.6 F 60 20 104/67 96 04/28/17 19:25 04/28/17 19:25 04/28/17 19:25 04/28/17 19:25 04/28/17 19:25 Intake and Output: 04/28/17 04/29/17 18:59 06:59 Intake Total 240 Output Total 175 Balance 65 - Medications Medications: Current Medications Acetaminophen (Tylenol 325mg Tab) 650 mg PO Q4 PRN PRN Reason: Pain, moderate (4-7) Last Admin: 04/25/17 22:44 Dose: 650 mg Amiodarone HCl (Cordarone) 200 mg PO DAILY [facility] Last Admin: 04/28/17 08:56 Dose: 200 mg Anastrozole (Arimidex 1 Mg Tab) 1 mg PO DAILY [facility] Last Admin: 04/28/17 09:00 Dose: Not Given Ascorbic Acid (Vitamin C 500 Mg Tab) 500 mg PO DAILY [facility] Last Admin: 04/28/17 08:59 Dose: Not Given Aspirin (Ecotrin) 81 mg PO DAILY [facility] Last Admin: 04/26/17 18:54 Dose: Not Given Atorvastatin Calcium (Lipitor) 20 mg PO HS [facility] Last Admin: 04/27/17 23:02 Dose: 20 mg Benzocaine/Menthol (Cepacol Sore Throat) 1 saumya PO Q3 PRN PRN Reason: Sore Throat Last Admin: 04/25/17 09:49 Dose: 1 saumya Calcium/Vitamin D (Oyster Shell Calcium/Vitamin D 500 Mg-200 Iu) 1 tab PO DAILY [facility] Last Admin: 04/28/17 08:59 Dose: Not Given Cholecalciferol (Vitamin D) 1,000 intlu PO DAILY [facility] Last Admin: 04/28/17 08:59 Dose: Not Given Docusate Sodium (Colace) 100 mg PO BID PRN PRN Reason: Constipation Furosemide (Lasix) 40 mg IVP DAILY [facility] Last Admin: 04/28/17 08:58 Dose: Not Given Guaifenesin/Dextromethorphan (Robitussin Dm) 10 ml PO Q4 [facility] Last Admin: 04/28/17 17:23 Dose: Not Given Heparin Sodium (Porcine) (Heparin) 5,000 units SC Q12 [facility] PRN Reason: Protocol Last Admin: 04/28/17 08:58 Dose: Not Given Levothyroxine Sodium (Synthroid) 25 mcg PO DAILY@0630 [facility] Last Admin: 04/28/17 05:39 Dose: 25 mcg Losartan Potassium (Cozaar) 25 mg PO DAILY [facility] Last Admin: 04/28/17 08:56 Dose: 25 mg Metoprolol Succinate (Toprol Xl) 50 mg PO DAILY [facility] Last Admin: 04/28/17 08:55 Dose: 50 mg Multivitamins/Minerals (Therapeutic-M Tab) 1 tab PO DAILY [facility] Last Admin: 04/28/17 08:59 Dose: Not Given Sildenafil Citrate (Revatio) 20 mg PO TID [facility] Last Admin: 04/28/17 17:22 Dose: 20 mg Vitamin E (Vitamin E 400 Units Cap) 400 intlu PO DAILY [facility] Last Admin: 04/28/17 09:00 Dose: Not Given - Labs Labs: 04/28/17 04:20 04/28/17 17:10 PT 11.2 Seconds (9.8-13.1) 04/17/17 17:10 INR 1.0 (0.9-1.2) 04/17/17 17:10 APTT 28.9 Seconds (25.6-37.1) 04/23/17 21:32 - Constitutional Appears: Non-toxic, No Acute Distress, Chronically Ill, Other (weak) - Head Exam Head Exam: ATRAUMATIC, NORMOCEPHALIC - Eye Exam Eye Exam: EOMI, PERRL Pupil Exam: NORMAL ACCOMODATION - ENT Exam ENT Exam: Mucous Membranes Dry - Neck Exam Neck Exam: Normal Inspection - Respiratory Exam Respiratory Exam: Clear to Ausculation Bilateral, NORMAL BREATHING PATTERN. absent: Rhonchi, Wheezes - Cardiovascular Exam Cardiovascular Exam: REGULAR RHYTHM. absent: JVD - GI/Abdominal Exam GI & Abdominal Exam: Soft, Normal Bowel Sounds. absent: Distended, Guarding, Rebound - Rectal Exam Rectal Exam: Deferred - Extremities Exam Extremities Exam: Normal Capillary Refill, Normal Inspection. absent: Calf Tenderness, Pedal Edema - Back Exam Back Exam: NORMAL INSPECTION - Neurological Exam Neurological Exam: Alert, Awake, CN II-XII Intact, Oriented x3 - Psychiatric Exam Psychiatric exam: Flat Affect - Skin Skin Exam: Dry, Pallor, Warm Assessment and Plan - Assessment and Plan (Free Text) Assessment: 81 y/o female with PMH of Cardiomyopathy s/p AICD, Arrhythmia s/p Ablation, CAD, CVA, COPD, Hypothyroidism, HTN, Hyperlipidemia,history of breast cancer s/ p left mastectomy , came in bec of left arm discomfort and some SOB. CXR showed Pulm Vascular congestion. Troponin were positive up to 3.0 Patient was admitted to ICU and started on heparin drip. Cardiology and pulmonary consulted. Her troponins trended down to 0.69 Went for cardiac cath 04/[address] [facility] that showed diffuse artherosclerotic disease non obstructive ,EF 20 % ,high pulmonary artery pressures 50. She was started on Milrinone drip. Off milrinone drip and nitrates and started in sildenafil as per cardio Today had right side cath that showed normal pressures to right side of the heart 26 With episodes of non sustained VT post cath on transport and started on Amiodarone drip At present back on SR paced rhythm with AV block 1. Non sustained VT started on Amiodarone drip Digoxin levels elevated 2.7 . Cardiology informed and recommended holding Digoxin for now and repeating electrolytes and levels in AM Continue tele monitoring 2.NSTEMI (non-ST elevated myocardial infarction) resolved admitted with elevated Trop 3.0 that trended down 0.69 Cardiac Cath done 04/19 : diffuse artherosclerotic disease , non obstructive,EF 20 % , elevated Pulmonary artery pressure of 50 continue metoprolol ASA, Statin, BB and ARB cardiology following pt repeat right sided cardiac cath today showed normalized pressures on the right side of the heart 3. Systolic and diastolic CHF, acute on chronic Pulmonary HTN, severe EF 20% as reported by cardiac cath cont BB and ARB BNP down to 1220 Pt was on Milrinone drip as rec by Dr Da Silva. Off Milrinone drip and nitrates since started on Sildenafil as per cardio 04/26 repeat Right Heart Cath today showed normal PA pressures cont 40 mg bid Lasix cont Amiodarone hold Dig due to high levels 4. COPD (chronic obstructive pulmonary disease), stable Chronic Duoneb prn Dr Gomez following pt V/Q scan showed low probability PE 5.Hypothyroidism Chronic cont Levothyroxine 6. Leukocytosis and Cough leukocytosis now resolved , cough better pt has no fever empirically was on IV Ceftriaxone and Azithro- d/c 04/24 CXR 04/20 : no infiltrates continue Robitussin, cont Bronchodilators Influenza: negative 7. Acute Kidney Injury prob prerenal Cr 1.2 Nephrology consulted: Dr Andre Nj discontinued Close monitoring since patient went for cardiac cath today 8. Hematuria resolved likely traumatic urology consulted cont Heparin 9. Generalized weakness / deconditioning patient feeling more weaker and tired has not been able to do any PT PT consulted Will plan for D/c to [facility] / TCU for PT once cleared buy cardio 10. DVT prophylaxis cont Heparin
[2017-04-29] MEDS: guaiFENesin DM 200 mg-20 mg/10 ml UD PO SCH ×3 (01:52→10:49)
[2017-04-29 05:42] LABS: BASO # 0.1 K/uL (0.0-0.2); BASO % 0.9 % (0.0-2.0); EOS # 0.1 K/uL (0.0-0.7); HEMOGLOBIN 13.1 g/dL (12.0-16.0); LYMPH # 1.7 K/uL (1.0-4.3); LYMPH % 11.9 % (20.0-40.0); MEAN CELL VOLUME 94.6 fl (81.0-99.0); MEAN CORPUSCULAR HEMOGLOBIN 31.4 pg (27.0-31.0); MEAN CORPUSCULAR HGB CONC 33.2 g/dL (33.0-37.0); MEAN PLATELET VOLUME 8.5 fl (7.2-11.7); MONO # 1.8 K/uL (0.0-0.8); MONO % 12.3 % (0.0-10.0); NEUT # 10.8 K/uL (1.8-7.0); NEUT % 73.9 % (50.0-75.0); NRBC % 0.1 % (0.0-0.0); RBC 4.18 Mil/uL (3.80-5.20); RED CELL DISTRIBUTION WIDTH 13.5 % (11.5-14.5); WHITE BLOOD COUNT 14.6 K/uL (4.8-10.8)
[2017-04-29 05:44] LABS: ALB/GLOB RATIO 1.2 (1.0-2.1); ALBUMIN 3.9 g/dL (3.5-5.0); CALCIUM 9.3 mg/dL (8.4-10.2)
[2017-04-29] MEDS: Levothyroxine 25 MCG TAB PO SCH (05:51)
[2017-04-29] MEDS: Calcium-Vit D 500 mg-200 Units Tab UD PO SCH (10:49)
[2017-04-29] MEDS: Multivitamin With Minerals Tab PO SCH (10:49)
[2017-04-29] MEDS: Sildenafil 20 MG TAB PO SCH ×3 (10:49→16:39)
[2017-04-29] MEDS: Metoprolol Succinate 50 mg XL Tab PO SCH (10:50)
[2017-04-29] MEDS: Cholecalciferol 1,000 INTLU TAB PO SCH (10:50)
--- NOTE | 2017-04-29 10:58 | CP.PCM.PN ---
Subjective - Date & Time of Evaluation Date of Evaluation: 04/29/17 Time of Evaluation: 10:52 - Subjective Subjective: Interim events reviewed. Had right heart cath yesterday which apparently showed greatly improved PA pressures on Revatio. Transient ventricular arrhythmia documented also (during transport?). Appears comfortable at present. Vitals are stable. She remains afebrile. Leukocytosis of 14.6 noted today. Monitor shows a fib with controlled ventricular rate. More alert and less distressed today, but very forgetful. May need Neuro consult for progressive cognitive decline (FH of Dementia AT). Will await cardiology clearance for discharge to transitional care. CT chest w/o contrast today because of persistent chest pain on the left (non- cardiac). May need bone scan as well. Objective - Vital Signs/Intake and Output Vital Signs (last 24 hours): Temp Pulse Resp BP Pulse Ox 97.5 F L 63 18 120/71 95 04/29/17 08:00 04/29/17 08:00 04/29/17 08:00 04/29/17 08:00 04/29/17 08:00 - Medications Medications: Current Medications Acetaminophen (Tylenol 325mg Tab) 650 mg PO Q4 PRN PRN Reason: Pain, moderate (4-7) Last Admin: 04/25/17 22:44 Dose: 650 mg Amiodarone HCl (Cordarone) 200 mg PO DAILY [facility] Last Admin: 04/28/17 08:56 Dose: 200 mg Anastrozole (Arimidex 1 Mg Tab) 1 mg PO DAILY [facility] Last Admin: 04/28/17 09:00 Dose: Not Given Ascorbic Acid (Vitamin C 500 Mg Tab) 500 mg PO DAILY [facility] Last Admin: 04/28/17 08:59 Dose: Not Given Aspirin (Ecotrin) 81 mg PO DAILY [facility] Last Admin: 04/26/17 18:54 Dose: Not Given Atorvastatin Calcium (Lipitor) 20 mg PO HS [facility] Last Admin: 04/28/17 21:51 Dose: 20 mg Benzocaine/Menthol (Cepacol Sore Throat) 1 saumya PO Q3 PRN PRN Reason: Sore Throat Last Admin: 04/25/17 09:49 Dose: 1 saumya Calcium/Vitamin D (Oyster Shell Calcium/Vitamin D 500 Mg-200 Iu) 1 tab PO DAILY [facility] Last Admin: 04/28/17 08:59 Dose: Not Given Cholecalciferol (Vitamin D) 1,000 intlu PO DAILY [facility] Last Admin: 04/28/17 08:59 Dose: Not Given Docusate Sodium (Colace) 100 mg PO BID PRN PRN Reason: Constipation Furosemide (Lasix) 40 mg IVP DAILY [facility] Last Admin: 04/28/17 08:58 Dose: Not Given Guaifenesin/Dextromethorphan (Robitussin Dm) 10 ml PO Q4 [facility] Last Admin: 04/29/17 05:52 Dose: 10 ml Heparin Sodium (Porcine) (Heparin) 5,000 units SC Q12 [facility] PRN Reason: Protocol Last Admin: 04/28/17 21:51 Dose: Not Given Levothyroxine Sodium (Synthroid) 25 mcg PO DAILY@0630 [facility] Last Admin: 04/29/17 05:51 Dose: 25 mcg Losartan Potassium (Cozaar) 25 mg PO DAILY [facility] Last Admin: 04/28/17 08:56 Dose: 25 mg Metoprolol Succinate (Toprol Xl) 50 mg PO DAILY [facility] Last Admin: 04/28/17 08:55 Dose: 50 mg Multivitamins/Minerals (Therapeutic-M Tab) 1 tab PO DAILY [facility] Last Admin: 04/28/17 08:59 Dose: Not Given Sildenafil Citrate (Revatio) 20 mg PO TID [facility] Last Admin: 04/28/17 17:22 Dose: 20 mg Vitamin E (Vitamin E 400 Units Cap) 400 intlu PO DAILY [facility] Last Admin: 04/28/17 09:00 Dose: Not Given - Labs Labs: 04/29/17 04:40 04/29/17 04:40 PT 11.2 Seconds (9.8-13.1) 04/17/17 17:10 INR 1.0 (0.9-1.2) 04/17/17 17:10 APTT 28.9 Seconds (25.6-37.1) 04/23/17 21:32 Assessment and Plan (1) Low cardiac output syndrome Status: Chronic (2) Cardiomyopathy Status: Chronic (3) CAD (coronary artery disease) Status: Chronic (4) COPD (chronic obstructive pulmonary disease) Status: Chronic (5) Hypothyroidism Status: Chronic
--- NOTE | 2017-04-29 14:14 | CT ---
PROCEDURE: CT scan chest dated 04/29/2017 HISTORY: Chest pain. COMPARISON: Correlation made with chest radiograph dated 04/20/2017 TECHNIQUE: Contiguous axial images were obtained through the chest without intravenous contrast enhancement. Sagittal and coronal reconstructions were performed. Radiation dose (DLP): 431.66 mGy-cm. This CT exam was performed using one or more of the following dose reduction techniques: Automated exposure control, adjustment of the mA and/or kV according to patient size, and/or use of iterative reconstruction technique. FINDINGS: LUNGS: Mild patchy the areas of atelectasis on and/or scarring changes both posterior lower lung kelly left locally more confluent the left posterior sulcus than the right-side ; residual small left lower lobe infiltrate not completely excluded. MEDIASTINUM: Heart size is mildly enlarged. No significant pericardial effusion. In situ bipolar pacemaker/defibrillator. The ascending thoracic aorta measures approximately 3.16 cm and descending thoracic aorta measures approximately 2.45 cm. 5. Partially calcified atherosclerotic plaque seen along the thoracic aorta most notably along transverse portion and descending segments of the thoracic aorta. Streak and beam Pulmonary trunk measures approximately 2.5 cm. Central airways are midline and patent. No large central endoluminal lesions are identified. There is a tiny hiatal hernia. No significant adenopathy. Evaluation for hilar adenopathy limited due to the lack of circulating intravenous contrast material. . Streak and beam hardening artifact partially obscures the upper mediastinum including the thyroid gland. PLEURA: No evidence of effusion or pneumothorax. BONES: Mild multilevel degenerative spondylosis of the thoracic spine. There are no acute compression fractures no retropulsed fragments. UPPER ABDOMEN: Layering gravel/calculi within the dependent portion of the gallbladder. Pancreas is atrophic in appearance. . Vascular calcifications both kidneys are felt to be present. There are at least 2 small exophytic low-attenuation foci arising from the lateral aspect mid to lower pole right kidney that probably represent hyperdense cyst. Renal ultrasound followup could confirm necessary and exclude solid components. . Mildly enlarged adrenal glands possibly representing adrenal hyperplasia. OTHER FINDINGS: None. IMPRESSION: Patchy areas of atelectasis/scarring both posterior lower lung kelly locally more confluent in the left posterior sulcus ; possibility of residual infiltrate not excluded. Findings Cholelithiasis. Probable hyperdense right renal cysts however followup ultrasound could be performed to confirm and exclude any solid lesion. Mildly enlarged adrenal glands possibly representing adrenal hyperplasia. Followup CT scan interval recommended to assess stability See above discussion for additional details and findings.
--- NOTE | 2017-04-29 15:31 | CP.PCM.PN ---
Subjective - Date & Time of Evaluation Date of Evaluation: 04/28/17 Time of Evaluation: 15:00 - Subjective Subjective: s/p RHCx showing improvement in her filling pressures and mPAP SOB improving still c/o sharp left sided chest wall pain Objective - Vital Signs/Intake and Output Vital Signs (last 24 hours): Temp Pulse Resp BP Pulse Ox 98.4 F 78 20 108/78 96 04/29/17 12:00 04/29/17 12:00 04/29/17 12:00 04/29/17 12:00 04/29/17 12:00 - Medications Medications: Current Medications Acetaminophen (Tylenol 325mg Tab) 650 mg PO Q4 PRN PRN Reason: Pain, moderate (4-7) Last Admin: 04/25/17 22:44 Dose: 650 mg Amiodarone HCl (Cordarone) 200 mg PO DAILY [facility] Last Admin: 04/29/17 10:47 Dose: 200 mg Anastrozole (Arimidex 1 Mg Tab) 1 mg PO DAILY [facility] Last Admin: 04/29/17 10:45 Dose: 1 mg Ascorbic Acid (Vitamin C 500 Mg Tab) 500 mg PO DAILY [facility] Last Admin: 04/29/17 10:51 Dose: 500 mg Aspirin (Ecotrin) 81 mg PO DAILY [facility] Last Admin: 04/26/17 18:54 Dose: Not Given Atorvastatin Calcium (Lipitor) 20 mg PO HS [facility] Last Admin: 04/28/17 21:51 Dose: 20 mg Calcium/Vitamin D (Oyster Shell Calcium/Vitamin D 500 Mg-200 Iu) 1 tab PO DAILY [facility] Last Admin: 04/29/17 10:49 Dose: 1 tab Cholecalciferol (Vitamin D) 1,000 intlu PO DAILY [facility] Last Admin: 04/29/17 10:50 Dose: 1,000 intlu Furosemide (Lasix) 40 mg IVP DAILY [facility] Last Admin: 04/29/17 10:48 Dose: 40 mg Heparin Sodium (Porcine) (Heparin) 5,000 units SC Q12 [facility] PRN Reason: Protocol Last Admin: 04/28/17 21:51 Dose: Not Given Levothyroxine Sodium (Synthroid) 25 mcg PO DAILY@0630 [facility] Last Admin: 04/29/17 05:51 Dose: 25 mcg Losartan Potassium (Cozaar) 25 mg PO DAILY [facility] Last Admin: 04/29/17 10:47 Dose: 25 mg Metoprolol Succinate (Toprol Xl) 50 mg PO DAILY [facility] Last Admin: 04/29/17 10:50 Dose: 50 mg Multivitamins/Minerals (Therapeutic-M Tab) 1 tab PO DAILY [facility] Last Admin: 04/29/17 10:49 Dose: 1 tab Sildenafil Citrate (Revatio) 20 mg PO TID [facility] Last Admin: 04/29/17 10:49 Dose: 20 mg Vitamin E (Vitamin E 400 Units Cap) 400 intlu PO DAILY [facility] Last Admin: 04/29/17 10:50 Dose: 400 intlu - Labs Labs: 04/29/17 04:40 04/29/17 04:40 PT 11.2 Seconds (9.8-13.1) 04/17/17 17:10 INR 1.0 (0.9-1.2) 04/17/17 17:10 APTT 28.9 Seconds (25.6-37.1) 04/23/17 21:32 - Constitutional Appears: Well - Head Exam Head Exam: ATRAUMATIC, NORMAL INSPECTION, NORMOCEPHALIC - Eye Exam Eye Exam: EOMI, Normal appearance, PERRL Pupil Exam: NORMAL ACCOMODATION, PERRL - ENT Exam ENT Exam: Mucous Membranes Moist, Normal Exam - Neck Exam Neck Exam: Full ROM, Normal Inspection. absent: Lymphadenopathy - Respiratory Exam Respiratory Exam: Clear to Ausculation Bilateral, NORMAL BREATHING PATTERN - Cardiovascular Exam Cardiovascular Exam: Irregular Rhythm, +S1, +S2, Murmur - GI/Abdominal Exam GI & Abdominal Exam: Soft, Normal Bowel Sounds. absent: Tenderness - Extremities Exam Extremities Exam: Full ROM, Normal Capillary Refill, Normal Inspection. absent : Joint Swelling, Pedal Edema - Back Exam Back Exam: NORMAL INSPECTION - Neurological Exam Neurological Exam: Alert, Awake, CN II-XII Intact, Oriented x3 - Psychiatric Exam Psychiatric exam: Normal Affect, Normal Mood - Skin Skin Exam: Dry, Intact, Normal Color, Warm Assessment and Plan (1) CHF (congestive heart failure) Assessment & Plan: improved on sildenafil for phtn cont bb, arb dc digoxin pt had episode of v-tach during transport [place] for which she was given 1 dose of amiodarone IV x 1 Status: Chronic (2) Chest pain Assessment & Plan: ? pleuritic CT chest discussed with Status: Acute (3) Dyspnea Status: Acute (4) Fatigue Status: Acute (5) NSTEMI (non-ST elevated myocardial infarction) Status: Acute (6) HLD (hyperlipidemia) Status: Chronic (7) HTN (hypertension) Status: Chronic (8) V-tach Status: Acute
--- NOTE | 2017-04-29 15:36 | CP.PCM.PN ---
Subjective - Date & Time of Evaluation Date of Evaluation: 04/29/17 Time of Evaluation: 15:34 - Subjective Subjective: feeling fine BNP stable critical illness myopathy Objective - Vital Signs/Intake and Output Vital Signs (last 24 hours): Temp Pulse Resp BP Pulse Ox 98.4 F 78 20 108/78 96 04/29/17 12:00 04/29/17 12:00 04/29/17 12:00 04/29/17 12:00 04/29/17 12:00 - Medications Medications: Current Medications Acetaminophen (Tylenol 325mg Tab) 650 mg PO Q4 PRN PRN Reason: Pain, moderate (4-7) Last Admin: 04/25/17 22:44 Dose: 650 mg Amiodarone HCl (Cordarone) 200 mg PO DAILY [facility] Last Admin: 04/29/17 10:47 Dose: 200 mg Anastrozole (Arimidex 1 Mg Tab) 1 mg PO DAILY [facility] Last Admin: 04/29/17 10:45 Dose: 1 mg Ascorbic Acid (Vitamin C 500 Mg Tab) 500 mg PO DAILY [facility] Last Admin: 04/29/17 10:51 Dose: 500 mg Aspirin (Ecotrin) 81 mg PO DAILY [facility] Last Admin: 04/26/17 18:54 Dose: Not Given Atorvastatin Calcium (Lipitor) 20 mg PO HS [facility] Last Admin: 04/28/17 21:51 Dose: 20 mg Calcium/Vitamin D (Oyster Shell Calcium/Vitamin D 500 Mg-200 Iu) 1 tab PO DAILY [facility] Last Admin: 04/29/17 10:49 Dose: 1 tab Cholecalciferol (Vitamin D) 1,000 intlu PO DAILY [facility] Last Admin: 04/29/17 10:50 Dose: 1,000 intlu Furosemide (Lasix) 40 mg IVP DAILY [facility] Last Admin: 04/29/17 10:48 Dose: 40 mg Heparin Sodium (Porcine) (Heparin) 5,000 units SC Q12 [facility] PRN Reason: Protocol Last Admin: 04/28/17 21:51 Dose: Not Given Levothyroxine Sodium (Synthroid) 25 mcg PO DAILY@0630 [facility] Last Admin: 04/29/17 05:51 Dose: 25 mcg Losartan Potassium (Cozaar) 25 mg PO DAILY [facility] Last Admin: 04/29/17 10:47 Dose: 25 mg Metoprolol Succinate (Toprol Xl) 50 mg PO DAILY [facility] Last Admin: 04/29/17 10:50 Dose: 50 mg Multivitamins/Minerals (Therapeutic-M Tab) 1 tab PO DAILY [facility] Last Admin: 04/29/17 10:49 Dose: 1 tab Sildenafil Citrate (Revatio) 20 mg PO TID [facility] Last Admin: 04/29/17 10:49 Dose: 20 mg Vitamin E (Vitamin E 400 Units Cap) 400 intlu PO DAILY [facility] Last Admin: 04/29/17 10:50 Dose: 400 intlu - Labs Labs: 04/29/17 04:40 04/29/17 04:40 PT 11.2 Seconds (9.8-13.1) 04/17/17 17:10 INR 1.0 (0.9-1.2) 04/17/17 17:10 APTT 28.9 Seconds (25.6-37.1) 04/23/17 21:32 - Constitutional Appears: Well - Head Exam Head Exam: ATRAUMATIC, NORMAL INSPECTION, NORMOCEPHALIC - Eye Exam Eye Exam: EOMI, Normal appearance, PERRL Pupil Exam: NORMAL ACCOMODATION, PERRL - ENT Exam ENT Exam: Mucous Membranes Moist, Normal Exam - Neck Exam Neck Exam: Full ROM, Normal Inspection. absent: Lymphadenopathy - Respiratory Exam Respiratory Exam: Clear to Ausculation Bilateral, NORMAL BREATHING PATTERN - Cardiovascular Exam Cardiovascular Exam: Irregular Rhythm, +S1, +S2, Murmur - GI/Abdominal Exam GI & Abdominal Exam: Soft, Normal Bowel Sounds. absent: Tenderness - Extremities Exam Extremities Exam: Full ROM, Normal Capillary Refill, Normal Inspection. absent : Joint Swelling, Pedal Edema - Back Exam Back Exam: NORMAL INSPECTION - Neurological Exam Neurological Exam: Alert, Awake, CN II-XII Intact, Oriented x3 - Psychiatric Exam Psychiatric exam: Normal Affect, Normal Mood - Skin Skin Exam: Dry, Intact, Normal Color, Warm Assessment and Plan (1) CHF (congestive heart failure) Assessment & Plan: change lasix to PO 40mg daily cont bb, arb cont sildenafil dc digoxin cont amiodarone Status: Chronic (2) Chest pain Status: Acute (3) Dyspnea Status: Acute (4) Fatigue Status: Acute (5) NSTEMI (non-ST elevated myocardial infarction) Status: Acute (6) HLD (hyperlipidemia) Status: Chronic (7) HTN (hypertension) Status: Chronic (8) V-tach Status: Acute
--- NOTE | 2017-04-29 17:45 | CP.PCM.PN ---
Subjective - Date & Time of Evaluation Date of Evaluation: 04/29/17 Time of Evaluation: 12:00 - Subjective Subjective: Patient seen and examined at bedside. Right heart catheterization yesterday showed greatly improved pressures on Revatio Documented non sustained ventricular tachycardia in EMS on the way back from [facility]- was started on Amiodarone drip as per Dr. Da Silva. Patient converted to sinus rhythm. Today had left sided chest pain- was sent for CT chest by Dr. Gomez- showed cholelithiasis but no acute findings. Intermittent confusion today and had difficulty with physical therapy due to this. For likely discharge to TCU in AM. Objective - Vital Signs/Intake and Output Vital Signs (last 24 hours): Temp Pulse Resp BP Pulse Ox 98.0 F 60 17 124/66 94 L 04/29/17 16:22 04/29/17 16:22 04/29/17 16:22 04/29/17 16:22 04/29/17 16:22 - Medications Medications: Current Medications Acetaminophen (Tylenol 325mg Tab) 650 mg PO Q4 PRN PRN Reason: Pain, moderate (4-7) Last Admin: 04/25/17 22:44 Dose: 650 mg Amiodarone HCl (Cordarone) 200 mg PO DAILY [facility] Last Admin: 04/29/17 10:47 Dose: 200 mg Anastrozole (Arimidex 1 Mg Tab) 1 mg PO DAILY [facility] Last Admin: 04/29/17 10:45 Dose: 1 mg Ascorbic Acid (Vitamin C 500 Mg Tab) 500 mg PO DAILY [facility] Last Admin: 04/29/17 10:51 Dose: 500 mg Aspirin (Ecotrin) 81 mg PO DAILY [facility] Last Admin: 04/26/17 18:54 Dose: Not Given Atorvastatin Calcium (Lipitor) 20 mg PO HS [facility] Last Admin: 04/28/17 21:51 Dose: 20 mg Calcium/Vitamin D (Oyster Shell Calcium/Vitamin D 500 Mg-200 Iu) 1 tab PO DAILY [facility] Last Admin: 04/29/17 10:49 Dose: 1 tab Cholecalciferol (Vitamin D) 1,000 intlu PO DAILY [facility] Last Admin: 04/29/17 10:50 Dose: 1,000 intlu Furosemide (Lasix) 40 mg IVP DAILY [facility] Last Admin: 04/29/17 10:48 Dose: 40 mg Heparin Sodium (Porcine) (Heparin) 5,000 units SC Q12 [facility] PRN Reason: Protocol Last Admin: 04/29/17 09:38 Dose: 5,000 units Levothyroxine Sodium (Synthroid) 25 mcg PO DAILY@0630 [facility] Last Admin: 04/29/17 05:51 Dose: 25 mcg Losartan Potassium (Cozaar) 25 mg PO DAILY [facility] Last Admin: 04/29/17 10:47 Dose: 25 mg Metoprolol Succinate (Toprol Xl) 50 mg PO DAILY [facility] Last Admin: 04/29/17 10:50 Dose: 50 mg Multivitamins/Minerals (Therapeutic-M Tab) 1 tab PO DAILY [facility] Last Admin: 04/29/17 10:49 Dose: 1 tab Sildenafil Citrate (Revatio) 20 mg PO TID [facility] Last Admin: 04/29/17 16:39 Dose: 20 mg Vitamin E (Vitamin E 400 Units Cap) 400 intlu PO DAILY [facility] Last Admin: 04/29/17 10:50 Dose: 400 intlu - Labs Labs: 04/29/17 04:40 04/29/17 04:40 PT 11.2 Seconds (9.8-13.1) 04/17/17 17:10 INR 1.0 (0.9-1.2) 04/17/17 17:10 APTT 28.9 Seconds (25.6-37.1) 04/23/17 21:32 - Additional Findings Additional findings: Physical exam: Constitutional- cooperative, awake, alert Head- NCAT, PERRL Eye- PERRL, EOMI ENT- normal exam, MMM. Neck- normal inspection, supple, no JVD Respiratory- CTAB, no wheezes rales rhonchi Cardiovascular- RRR, +S1, +S2 no MRG GI/Abdominal- normal bowel sounds, soft, no mass, no hsm Skin- warm, dry Extremities Exam- normal capillary refill, normal inspection Neurological Exam- alert, awake, oriented Psych- normal mood, normal affect Assessment and Plan - Assessment and Plan (Free Text) Plan: Assessment: 81 y/o female with PMH of Cardiomyopathy s/p AICD, Arrhythmia s/p Ablation, CAD, CVA, COPD, Hypothyroidism, HTN, Hyperlipidemia,history of breast cancer s/ p left mastectomy , came in bec of left arm discomfort and some SOB. CXR showed Pulm Vascular congestion. Troponin were positive up to 3.0 Patient was admitted to ICU and started on heparin drip. Cardiology and pulmonary consulted. Her troponins trended down to 0.69 Went for cardiac cath 04/19 @ [facility] that showed diffuse artherosclerotic disease non obstructive ,EF 20 % ,high pulmonary artery pressures 50. She was started on Milrinone drip. Off milrinone drip and nitrates and started in sildenafil as per cardio Yesterdayhad right side cath that showed normal pressures to right side of the heart 26 With episodes of non sustained VT post cath on transport and started on Amiodarone drip At present back on SR paced rhythm with AV block For likely discharge to TCU tomorrow 1. Non sustained VT started on Amiodarone drip Digoxin levels elevated 2.7 yesterday, now decreased to 2.3. Discontinued Digoxin Continue tele monitoring 2.NSTEMI (non-ST elevated myocardial infarction) resolved admitted with elevated Trop 3.0 that trended down 0.69 Cardiac Cath done 04/19 : diffuse artherosclerotic disease , non obstructive,EF 20 % , elevated Pulmonary artery pressure of 50 continue metoprolol ASA, Statin, BB and ARB cardiology following pt repeat right sided cardiac cath 04/30/2017 showed normalized pressures on the right side of the heart 3. Systolic and diastolic CHF, acute on chronic Pulmonary HTN EF 20% as reported by cardiac cath cont BB and ARB BNP down to 1220 Pt was on Milrinone drip as rec by Dr Da Silva. Off Milrinone drip and nitrates since started on Sildenafil as per cardio 04/26 repeat Right Heart Cath today showed normal PA pressures cont 40 mg bid Lasix cont Amiodarone hold Dig due to high levels 4. COPD (chronic obstructive pulmonary disease), stable Chronic Duoneb prn Dr Gomez following pt V/Q scan showed low probability PE 5.Hypothyroidism Chronic cont Levothyroxine 6. Leukocytosis and Cough leukocytosis now resolved , cough better pt has no fever empirically was on IV Ceftriaxone and Azithro- d/c 04/24 CXR 04/20 : no infiltrates continue Robitussin, cont Bronchodilators Influenza: negative 7. Acute Kidney Injury prob prerenal Cr 1.2 Nephrology consulted: Dr Andre Nj discontinued Close monitoring since patient went for cardiac cath today 8. Hematuria resolved likely traumatic urology consulted cont Heparin 9. Generalized weakness / deconditioning patient feeling more weaker and tired has not been able to do any PT PT consulted D/C to TCU; ok with cardio 10. DVT prophylaxis cont Heparin
[2017-04-30 05:28] VITALS: PULSE 60
[2017-04-30 06:07] LABS: HEMOGLOBIN 12.3 g/dL (12.0-16.0); MEAN CELL VOLUME 94.8 fl (81.0-99.0); MEAN CORPUSCULAR HEMOGLOBIN 30.9 pg (27.0-31.0); MEAN CORPUSCULAR HGB CONC 32.6 g/dL (33.0-37.0); RBC 3.99 Mil/uL (3.80-5.20); RED CELL DISTRIBUTION WIDTH 13.2 % (11.5-14.5); WHITE BLOOD COUNT 13.9 K/uL (4.8-10.8)
[2017-04-30 06:20] LABS: CALCIUM 9.3 mg/dL (8.4-10.2)
[2017-04-30] MEDS: Levothyroxine 25 MCG TAB PO SCH (06:47)
--- NOTE | 2017-04-30 08:55 | CP.PCM.PN ---
Subjective - Date & Time of Evaluation Date of Evaluation: 04/30/17 Time of Evaluation: 08:55 - Subjective Subjective: She claims to be feeling better for the last two days now. Her vital signs have remained stable. Her CT chest did show an area of consolidation behind the heart which could explain her chest pain. This probably represents an area of pneumonia which may have been the process that initiated her hospitalization. She has been treated with antibiotics for a sufficient time and likely doesn't need any more. Plan is for sub acute rehab at this point. Objective - Vital Signs/Intake and Output Vital Signs (last 24 hours): Temp Pulse Resp BP Pulse Ox 97.5 F L 60 18 112/66 98 04/30/17 08:00 04/30/17 08:00 04/30/17 08:00 04/30/17 08:00 04/30/17 08:00 Intake and Output: 04/29/17 04/30/17 23:59 11:59 Intake Total 500 Balance 500 - Medications Medications: Current Medications Acetaminophen (Tylenol 325mg Tab) 650 mg PO Q4 PRN PRN Reason: Pain, moderate (4-7) Last Admin: 04/25/17 22:44 Dose: 650 mg Amiodarone HCl (Cordarone) 200 mg PO DAILY [facility] Last Admin: 04/29/17 10:47 Dose: 200 mg Anastrozole (Arimidex 1 Mg Tab) 1 mg PO DAILY [facility] Last Admin: 04/29/17 10:45 Dose: 1 mg Ascorbic Acid (Vitamin C 500 Mg Tab) 500 mg PO DAILY [facility] Last Admin: 04/29/17 10:51 Dose: 500 mg Aspirin (Ecotrin) 81 mg PO DAILY [facility] Last Admin: 04/26/17 18:54 Dose: Not Given Atorvastatin Calcium (Lipitor) 20 mg PO HS [facility] Last Admin: 04/29/17 22:24 Dose: 20 mg Calcium/Vitamin D (Oyster Shell Calcium/Vitamin D 500 Mg-200 Iu) 1 tab PO DAILY [facility] Last Admin: 04/29/17 10:49 Dose: 1 tab Cholecalciferol (Vitamin D) 1,000 intlu PO DAILY [facility] Last Admin: 04/29/17 10:50 Dose: 1,000 intlu Furosemide (Lasix) 40 mg IVP DAILY [facility] Last Admin: 04/29/17 10:48 Dose: 40 mg Heparin Sodium (Porcine) (Heparin) 5,000 units SC Q12 [facility] PRN Reason: Protocol Last Admin: 04/29/17 22:24 Dose: 5,000 units Levothyroxine Sodium (Synthroid) 25 mcg PO DAILY@0630 [facility] Last Admin: 04/30/17 06:47 Dose: 25 mcg Losartan Potassium (Cozaar) 25 mg PO DAILY [facility] Last Admin: 04/29/17 10:47 Dose: 25 mg Metoprolol Succinate (Toprol Xl) 50 mg PO DAILY [facility] Last Admin: 04/29/17 10:50 Dose: 50 mg Multivitamins/Minerals (Therapeutic-M Tab) 1 tab PO DAILY [facility] Last Admin: 04/29/17 10:49 Dose: 1 tab Sildenafil Citrate (Revatio) 20 mg PO TID [facility] Last Admin: 04/29/17 16:39 Dose: 20 mg Vitamin E (Vitamin E 400 Units Cap) 400 intlu PO DAILY [facility] Last Admin: 04/29/17 10:50 Dose: 400 intlu - Labs Labs: 04/30/17 05:47 04/30/17 05:47 PT 11.2 Seconds (9.8-13.1) 04/17/17 17:10 INR 1.0 (0.9-1.2) 04/17/17 17:10 APTT 28.9 Seconds (25.6-37.1) 04/23/17 21:32 Assessment and Plan (1) Low cardiac output syndrome Status: Chronic (2) Cardiomyopathy Status: Chronic (3) CAD (coronary artery disease) Status: Chronic (4) COPD (chronic obstructive pulmonary disease) Status: Chronic (5) Hypothyroidism Status: Chronic
[2017-04-30] MEDS: Sildenafil 20 MG TAB PO SCH ×2 (09:21→13:16)
[2017-04-30] MEDS: Calcium-Vit D 500 mg-200 Units Tab UD PO SCH (09:22)
[2017-04-30] MEDS: Multivitamin With Minerals Tab PO SCH (09:23)
[2017-04-30] MEDS: Cholecalciferol 1,000 INTLU TAB PO SCH (09:24)
[2017-04-30] MEDS: Metoprolol Succinate 50 mg XL Tab PO SCH (09:24)
[2017-04-30 12:50] VITALS: BP 128/68; RESP 20; TEMP 97.9; O2SAT 95
--- NOTE | 2017-04-30 13:00 | US ---
PROCEDURE: Ultrasound of the Kidneys HISTORY: renal cyst? COMPARISON: None available. TECHNIQUE: Sonogram of the kidneys. FINDINGS: RIGHT KIDNEY: Measures: 9.2 x 4.5 x 4.6 cm. Mid/lower pole cysts measuring 1.7 x 1.5 x 1.8 cm and 1.5 x 1.4 x 1.6 cm. Normal in size, contour and echogenicity. No stone, solid mass lesion or hydronephrosis visualized. LEFT KIDNEY: Measures: 8.9 x 4.8 x 5.4 cm. Normal in size, contour and echogenicity. No stone, solid mass lesion or hydronephrosis visualized. OTHER FINDINGS: None. IMPRESSION: Unremarkable renal sonogram. Right renal cysts.
--- NOTE | 2017-04-30 17:15 | CP.PCM.DIS ---
Provider - Provider Date of Admission: 04/15/17 16:38 Attending physician: Mohan Hernandez MD Primary care physician: Dr. Gomez Consults: Patricia- pulmonary [facility]- Interventional cardiology Andre- nephrology Meaghan- urology Time Spent in preparation of Discharge (in minutes): 25 Hospital Course - Lab Results Lab Results: Micro Results 04/24/17 20:24 Nose MRSA Culture (Admit) - Final MRSA DETECTED 04/15/17 09:02 Naris MRSA Culture (Admit) - Final MRSA NOT DETECTED Most Recent Lab Values WBC 13.9 K/uL (4.8-10.8) H 04/30/17 05:47 RBC 3.99 Mil/uL (3.80-5.20) 04/30/17 05:47 Hgb 12.3 g/dL (12.0-16.0) 04/30/17 05:47 Hct 37.8 % (34.0-47.0) 04/30/17 05:47 MCV 94.8 fl (81.0-99.0) 04/30/17 05:47 MCH 30.9 pg (27.0-31.0) 04/30/17 05:47 MCHC 32.6 g/dL (33.0-37.0) L 04/30/17 05:47 RDW 13.2 % (11.5-14.5) 04/30/17 05:47 Plt Count 314 K/uL (130-400) 04/30/17 05:47 MPV 8.5 fl (7.2-11.7) 04/29/17 04:40 Neut % (Auto) 73.9 % (50.0-75.0) 04/29/17 04:40 Lymph % (Auto) 11.9 % (20.0-40.0) L 04/29/17 04:40 Reeves % (Auto) 12.3 % (0.0-10.0) H 04/29/17 04:40 Eos % (Auto) 1.0 % (0.0-4.0) 04/29/17 04:40 Baso % (Auto) 0.9 % (0.0-2.0) 04/29/17 04:40 Neut # (Auto) 10.8 K/uL (1.8-7.0) H 04/29/17 04:40 Lymph # (Auto) 1.7 K/uL (1.0-4.3) 04/29/17 04:40 Reeves # (Auto) 1.8 K/uL (0.0-0.8) H 04/29/17 04:40 Eos # (Auto) 0.1 K/uL (0.0-0.7) 04/29/17 04:40 Baso # (Auto) 0.1 K/uL (0.0-0.2) 04/29/17 04:40 Neutrophils % (Manual) 75 % (42-75) 04/15/17 07:50 Lymphocytes % (Manual) 11 % (20-50) L 04/15/17 07:50 Reactive Lymphs % 2 % (0-0) H 04/15/17 07:50 Monocytes % (Manual) 11 % (0-10) H 04/15/17 07:50 Eosinophils % (Manual) 1 % (0-7) 04/15/17 07:50 Platelet Estimate Normal (NORMAL) 04/15/17 07:50 RBC Morphology Normal (NORMAL) 04/15/17 07:50 PT 11.2 Seconds (9.8-13.1) 04/17/17 17:10 INR 1.0 (0.9-1.2) 04/17/17 17:10 APTT 28.9 Seconds (25.6-37.1) 04/23/17 21:32 Sodium 133 mmol/l (132-148) 04/30/17 05:47 Potassium 4.0 MMOL/L (3.6-5.0) 04/30/17 05:47 Chloride 95 mmol/L (98-107) L 04/30/17 05:47 Carbon Dioxide 27 mmol/L (22-30) 04/30/17 05:47 Anion Gap 15 (10-20) 04/30/17 05:47 BUN 49 mg/dl (7-17) H 04/30/17 05:47 Creatinine 1.3 mg/dl (0.7-1.2) H 04/30/17 05:47 Est GFR ( Amer) 48 04/30/17 05:47 Est GFR (Non-Af Amer) 39 04/30/17 05:47 POC Glucose (mg/dL) 131 mg/dL (65-110) H 04/20/17 05:39 Random Glucose 112 mg/dL (65-105) H 04/30/17 05:47 Calcium 9.3 mg/dL (8.4-10.2) 04/30/17 05:47 Phosphorus 3.2 mg/dl (2.5-4.5) 04/24/17 05:50 Magnesium 2.0 MG/DL (1.6-2.3) 04/24/17 05:50 Total Bilirubin 1.0 mg/dl (0.2-1.3) 04/29/17 04:40 AST 45 U/L (14-36) H 04/29/17 04:40 ALT 41 U/L (9-52) 04/29/17 04:40 Alkaline Phosphatase 65 U/L (38-126) 04/29/17 04:40 Troponin I 0.0880 ng/mL (0.00-0.120) 04/24/17 05:50 NT-Pro-B Natriuret Pep 1250 pg/ml (0-900) H 04/29/17 11:03 Total Protein 7.3 G/DL (6.3-8.2) 04/29/17 04:40 Albumin 3.9 g/dL (3.5-5.0) 04/29/17 04:40 Globulin 3.4 gm/dL (2.2-3.9) 04/29/17 04:40 Albumin/Globulin Ratio 1.2 (1.0-2.1) 04/29/17 04:40 Triglycerides 147 mg/DL (0-149) 04/16/17 04:55 Cholesterol 185 mg/dL (0-199) 04/16/17 04:55 LDL Cholesterol Direct 101 mg/dL (0-129) 04/16/17 04:55 HDL Cholesterol 39 MG/DL (30-70) 04/16/17 04:55 TSH 3rd Generation 4.36 mIU/ML (0.46-4.68) 04/16/17 04:55 Urine Color Straw (YELLOW) 04/21/17 17:00 Urine Clarity Slighty-cloudy (Clear) 04/21/17 17:00 Urine pH 5.0 (5.0-8.0) 04/21/17 17:00 Ur Specific [place] 1.009 (1.003-1.030) 04/21/17 17:00 Urine Protein Negative mg/dL (NEGATIVE) 04/21/17 17:00 Urine Glucose (UA) Neg mg/dL (Normal) 04/21/17 17:00 Urine Ketones Negative mg/dL (NEGATIVE) 04/21/17 17:00 Urine Blood Moderate (NEGATIVE) 04/21/17 17:00 Urine Nitrate Negative (NEGATIVE) 04/21/17 17:00 Urine Bilirubin Negative (NEGATIVE) 04/21/17 17:00 Urine Urobilinogen 0.2-1.0 mg/dL (0.2-1.0) 04/21/17 17:00 Ur Leukocyte Esterase Neg Kj/uL (Negative) 04/21/17 17:00 Urine RBC (Auto) 30 /hpf (0-3) H 04/21/17 17:00 Urine Microscopic WBC 1 /hpf (0-5) 04/21/17 17:00 Ur Squamous Epith Cells 1 /hpf (0-5) 04/17/17 05:25 Uric Acid Crystals Few /hpf (<OCC) H 04/21/17 09:57 Urine Bacteria Rare (<OCC) 04/21/17 17:00 Hyaline Casts 3-5 /hpf (0-2) H 04/21/17 17:00 Urine Osmolality 357 mosm/kg (300-1000) 04/21/17 17:00 Ur Random Creatinine 36.4 mg/dL 04/21/17 17:00 Ur Random Sodium 96 mmol/L 04/21/17 17:00 Digoxin 2.3 ng/mL (0.8-2.0) H 04/29/17 04:40 Influenza Typ A,B (EIA) Negative for flu a/b (NEGATIVE) 04/15/17 07:50 - Hospital Course Hospital Course: Assessment: 81 y/o female with PMH of Cardiomyopathy s/p AICD, Arrhythmia s/p Ablation, CAD, CVA, COPD, Hypothyroidism, HTN, Hyperlipidemia,history of breast cancer s/ p left mastectomy , came in bec of left arm discomfort and some SOB. CXR showed Pulm Vascular congestion. Troponin were positive up to 3.0 Patient was admitted to ICU and started on heparin drip. Cardiology and pulmonary consulted. Her troponins trended down to 0.69 Went for cardiac cath 25 @ [facility] that showed diffuse artherosclerotic disease non obstructive ,EF 20 % ,high pulmonary artery pressures 50. She was started on Milrinone drip. Off milrinone drip and nitrates and started in sildenafil as per cardio On 04/28/2017, the patient was transported to [facility] and had right side cath that showed normal pressures to right side of the heart. With episodes of non sustained VT post cath on transport back to [facility] and started on Amiodarone drip. The same day, the patient converted back to SR paced rhythm with AV block. The patient was converted to po amiodarone as per Dr. Da Silva and continued to be monitored on telemetry. She has since had no events on telemetry. 1. Non sustained VT 04/28/2017 Dr. Da Silva on consultation started on Amiodarone drip, now on po Digoxin levels elevated 2.7 yesterday, now decreased to 2.3. Discontinued Digoxin as per Dr. Da Silva Being discharged to TCU today due to generalized weakness, ok with cardio 2.NSTEMI (non-ST elevated myocardial infarction) resolved admitted with elevated Trop 3.0 that trended down 0.69 Cardiac Cath done 04/19 : diffuse artherosclerotic disease , non obstructive,EF 20 % , elevated Pulmonary artery pressure of 50 continue metoprolol ASA, Statin, BB and ARB cardiology following pt repeat right sided cardiac cath 04/28/2017 showed normalized pressures on the right side of the heart 3. Systolic and diastolic CHF, acute on chronic Pulmonary HTN EF 20% as reported by cardiac cath cont BB and ARB BNP down to 1220 Pt was on Milrinone drip as rec by Dr Da Silva. Off Milrinone drip and nitrates since started on Sildenafil as per cardio 04/26 repeat Right Heart Cath today showed normal PA pressures cont 40 mg bid Lasix cont Amiodarone hold Dig due to high levels 4. COPD (chronic obstructive pulmonary disease), stable Chronic Duoneb prn Dr Gomez following pt V/Q scan showed low probability PE 5.Hypothyroidism Chronic cont Levothyroxine 6. Leukocytosis and Cough leukocytosis now resolved , cough better pt has no fever empirically was on IV Ceftriaxone and Azithro- d/c 04/24 CXR 04/20 : no infiltrates continue Robitussin, cont Bronchodilators Influenza: negative 7. Acute Kidney Injury prob prerenal Cr 1.2->1.3 today Nephrology consulted: Dr Powell Aldactone discontinued Monitor sodium levels 8. Hematuria resolved likely traumatic urology consulted cont Heparin 9. Generalized weakness / deconditioning patient feeling more weaker and tired has not been able to do any PT PT consulted D/C to TCU today; ok with cardio 10. DVT prophylaxis cont Heparin Discharge Exam - Eye Exam Eye Exam: Conjunctival injection - Additional Findings Additional findings: Physical exam: Constitutional- cooperative, awake, alert Head- NCAT, PERRL Eye- PERRL, EOMI ENT- normal exam, MMM. Neck- normal inspection, supple, no JVD Respiratory- CTAB, no wheezes rales rhonchi Cardiovascular- RRR, +S1, +S2 no MRG GI/Abdominal- normal bowel sounds, soft, no mass, no hsm Skin- warm, dry Extremities Exam- normal capillary refill, normal inspection Neurological Exam- alert, awake, oriented Psych- normal mood, normal affect Discharge Plan - Follow Up Plan Condition: FAIR Disposition: HOME/ ROUTINE Instructions: Chest Pain (DC), COPD (Chronic Obstructive Pulmonary Disease) (DC ) Referrals: Filiberto Gomez MD [Staff Provider] - Steven Carr MD [Family Provider] -
[2017-05-01 09:23] LABS: CALCIUM 9.3 mg/dL (8.4-10.2)
== END 2017-04-30 16:57 | DRG 280 ==
LOC: H.ER 06:52 → H.ERHOLD 10:06 → OBSVTOIN 16:38 → H.ICU/CCU 17:24 → H.TEL 04-24 14:28
PROC: 4A023N8 Measurement of Cardiac Sampling and Pressure, Bilateral, Percutaneous Approach (ICD-10-PCS; principal; 2017-04-19)
PROC: 4A023N6 Measurement of Cardiac Sampling and Pressure, Right Heart, Percutaneous Approach (ICD-10-PCS; 2017-04-28)
DX: I21.4 Non-ST elevation (NSTEMI) myocardial infarction (principal); I50.43 Acute on chronic combined systolic (congestive) and diastolic (congestive) heart failure; G72.81 Critical illness myopathy; I47.2 Ventricular tachycardia; N17.9 Acute kidney failure, unspecified; N18.3 Chronic kidney disease, stage 3 (moderate); J18.9 Pneumonia, unspecified organism; I42.0 Dilated cardiomyopathy; I13.0 Hypertensive heart and chronic kidney disease with heart failure and stage 1 through stage 4 chronic kidney disease, or unspecified chronic kidney disease; J44.0 Chronic obstructive pulmonary disease with (acute) lower respiratory infection; E87.1 Hypo-osmolality and hyponatremia; I44.0 Atrioventricular block, first degree; I27.20 Pulmonary hypertension, unspecified; I25.10 Atherosclerotic heart disease of native coronary artery without angina pectoris; E78.5 Hyperlipidemia, unspecified; E03.9 Hypothyroidism, unspecified; I48.91 Unspecified atrial fibrillation; D63.8 Anemia in other chronic diseases classified elsewhere; E78.00 Pure hypercholesterolemia, unspecified; M81.0 Age-related osteoporosis without current pathological fracture; D72.828 Other elevated white blood cell count; M19.90 Unspecified osteoarthritis, unspecified site; R31.0 Gross hematuria; I25.2 Old myocardial infarction; Z87.891 Personal history of nicotine dependence; Z86.73 Personal history of transient ischemic attack (TIA), and cerebral infarction without residual deficits; Z85.3 Personal history of malignant neoplasm of breast; Z92.21 Personal history of antineoplastic chemotherapy; Z92.3 Personal history of irradiation; Z95.810 Presence of automatic (implantable) cardiac defibrillator; Z95.5 Presence of coronary angioplasty implant and graft; Z90.12 Acquired absence of left breast and nipple; Z87.01 Personal history of pneumonia (recurrent); Z79.82 Long term (current) use of aspirin; Z79.811 Long term (current) use of aromatase inhibitors; Z98.41 Cataract extraction status, right eye; Z98.42 Cataract extraction status, left eye

== ENCOUNTER 2017-04-30 10:39 | Inpatient (IN) | payer OTHER, MEDICARE ==
[2017-04-30 15:36] VITALS: BMI 29.2
[2017-04-30] MEDS ORDERED: Sildenafil 20 MG TAB PO STA (21:22)
[2017-05-01] MEDS: Levothyroxine 25 MCG TAB PO SCH (05:43)
[2017-05-01] MEDS: Calcium-Vit D 500 mg-200 Units Tab UD PO SCH (08:19)
[2017-05-01] MEDS: Metoprolol Succinate 50 mg XL Tab PO SCH (08:19)
[2017-05-01] MEDS: Multivitamin With Minerals Tab PO SCH (08:20)
[2017-05-01] MEDS: Cholecalciferol 1,000 INTLU TAB PO SCH (08:20)
[2017-05-01] MEDS: Sildenafil 20 MG TAB PO SCH ×3 (08:23→17:04)
--- NOTE | 2017-05-01 12:56 | CP.PCM.CON ---
History of Present Illness - History of Present Illness History of Present Illness: This 81 year old female was initially admitted to acute medicine with NSTEMI and CHF. She underwent cardiac cath with non-obstructive CAD noted, but also found to have severe pulmonary hypertension. She was treated medically for the MT and CHF and placed on sildenafil for the pulmonary hypertension. During hospitalization she underwent a chest CT because of persistent left sided chest discomfort and was found to also have a pleural based, retro-cardiac pneumonic infiltrate as well. She had been empirically placed on antibiotics for pneumonia at the time of admission and no further antibiotics were given after that course of therapy was completed. A follow up right heart cath showed that her pulmonary hypertension has improved with the sildenafil and this was continued. Past Patient History - Infectious Disease Hx of Infectious Diseases: None - Tetanus Immunizations Tetanus Immunization: Unknown - Past Medical History & Family History Past Medical History?: Yes - Past Social History Smoking Status: Former Smoker Chewing Tobacco Use: No Cigar Use: No Alcohol: Social Drugs: Denies Home Situation {Lives}: Alone, With Family - CARDIAC Hx Angina: Yes Hx Cardia Arrhythmia: Yes Hx Congestive Heart Failure: Yes Hx Heart Attack: Yes Hx Hypercholesterolemia: Yes Hx Hypertension: Yes Hx Internal Defibrillator: Yes Hx Peripheral Edema: Yes - PULMONARY Hx Bronchitis: Yes Hx Chronic Obstructive Pulmonary Disease (COPD): Yes Hx Pneumonia: Yes - NEUROLOGICAL HX Cerebrovascular Accident: Yes Hx Transient Ischemic Attacks (TIA): Yes - HEENT Hx Cataracts: Yes (Extracted) Other/Comment: Mastoiditis - RENAL Hx Chronic Kidney Disease: No - ENDOCRINE/METABOLIC Hx Hypothyroidism: Yes - HEMATOLOGICAL/ONCOLOGICAL Hx Cancer: Yes (Breast L) Hx Chemotherapy: Yes (RT) Hx Human Immunodeficiency Virus (HIV): No - INTEGUMENTARY Hx Dermatological Problems: No - MUSCULOSKELETAL/RHEUMATOLOGICAL Hx Arthritis: Yes Hx Back Pain: Yes Hx Falls: No Hx Osteoarthritis: Yes Hx Spinal Stenosis: Yes - GASTROINTESTINAL Hx Gastrointestinal Disorders: No - GENITOURINARY/GYNECOLOGICAL Hx Incontinence: Yes - PSYCHIATRIC Hx Substance Use: No - SURGICAL HISTORY Hx Angioplasty: Yes Hx Appendectomy: Yes Hx Cardiac Catheterization: Yes Hx Cholecystectomy: Yes Hx Coronary Stent: Yes Hx Eye Surgery: Yes (cataract) Hx Mastectomy: Yes (L) - ANESTHESIA Hx Anesthesia: Yes Hx Anesthesia Reactions: No Hx Malignant Hyperthermia: No Meds Allergies/Adverse Reactions: Allergies Allergy/AdvReac Type Severity Reaction Status Date / Time No Known Allergies Allergy Verified 04/30/17 15:36 - Medications Medications: Current Medications Acetaminophen (Tylenol 325mg Tab) 650 mg PO Q4 PRN PRN Reason: Pain, moderate (4-7) Amiodarone HCl (Cordarone) 200 mg PO DAILY [facility] Last Admin: 05/01/17 08:20 Dose: 200 mg Anastrozole (Arimidex 1 Mg Tab) 1 mg PO DAILY [facility] Last Admin: 05/01/17 08:22 Dose: 1 mg Ascorbic Acid (Vitamin C 500 Mg Tab) 500 mg PO DAILY [facility] Last Admin: 05/01/17 08:19 Dose: 500 mg Aspirin (Ecotrin) 81 mg PO DAILY [facility] Last Admin: 05/01/17 08:25 Dose: 81 mg Atorvastatin Calcium (Lipitor) 20 mg PO HS [facility] Last Admin: 04/30/17 21:02 Dose: 20 mg Calcium/Vitamin D (Oyster Shell Calcium/Vitamin D 500 Mg-200 Iu) 1 tab PO DAILY [facility] Last Admin: 05/01/17 08:19 Dose: 1 tab Cholecalciferol (Vitamin D) 1,000 intlu PO DAILY [facility] Last Admin: 05/01/17 08:20 Dose: 1,000 intlu Furosemide (Lasix) 40 mg PO DAILY [facility] Last Admin: 05/01/17 08:18 Dose: 40 mg Heparin Sodium (Porcine) (Heparin) 5,000 units SC Q12 [facility] PRN Reason: Protocol Last Admin: 05/01/17 08:22 Dose: 5,000 units Levothyroxine Sodium (Synthroid) 25 mcg PO DAILY@0630 [facility] Last Admin: 05/01/17 05:43 Dose: 25 mcg Losartan Potassium (Cozaar) 25 mg PO DAILY [facility] Last Admin: 05/01/17 08:19 Dose: 25 mg Meclizine HCl (Antivert) 12.5 mg PO DAILY PRN PRN Reason: Dizziness Metoprolol Succinate (Toprol Xl) 50 mg PO DAILY [facility] Last Admin: 05/01/17 08:19 Dose: 50 mg Multivitamins/Minerals (Therapeutic-M Tab) 1 tab PO DAILY [facility] Last Admin: 05/01/17 08:20 Dose: 1 tab Sildenafil Citrate (Revatio) 20 mg PO TID [facility] Last Admin: 05/01/17 08:23 Dose: 20 mg Vitamin E (Vitamin E 400 Units Cap) 400 intlu PO DAILY [facility] Last Admin: 05/01/17 08:18 Dose: 400 intlu Physical Exam - Additional Findings Additional findings: Well-nourished, well-developed female in no acute distress. Speech is clear and memory is intact. Conjunctivae are pink and there is no scleral icterus. Neck is supple and trachea is midline. No visible neck vein distention. No palpable lymphadenopathy. Pharynx is pink and mucous membranes are moist. No exudate. Nares are patent bilaterally. No bleeding or exudate. No dullness on chest percussion. Equal expansion. Breath sounds are somewhat diminished bilaterally. No wheezes are heard. Dry to medium rales are heard in both lower lobes posteriorly. No bronchial breathing or egophony. No rub. Heart sounds are slightly distant but rhythm is regular. A systolic murmur is heard at the apex. The abdomen is soft and nontender. Normal bowel sounds. No palpable HSM. No dependent edema of the lower extremities. No calf tenderness or palpable venous cords. No cyanosis. No ecchymosis. Results - Vital Signs Recent Vital Signs: Last Vital Signs Temp 97.7 F 05/01/17 07:52 Pulse 62 05/01/17 08:20 Resp 18 05/01/17 07:52 BP 129/58 L 05/01/17 08:20 Pulse Ox 98 05/01/17 07:52 Assessment & Plan (1) Pulmonary hypertension Status: Chronic Priority: High (2) NSTEMI (non-ST elevated myocardial infarction) Status: Acute Priority: High (3) COPD (chronic obstructive pulmonary disease) Status: Chronic Priority: High (4) Cardiomyopathy Status: Chronic Priority: High (5) Pneumonia Status: Resolved Priority: High - Date & Time Date: 05/01/17 Time: 12:56
--- NOTE | 2017-05-01 17:28 | CP.PCM.HP ---
History of Present Illness - History of Present Illness History of Present Illness: 81 yo female with history of Cardiomyopathy S/P AICD, Arrhythmia S/P Ablation, CAD, previous CVA, COPD, HTN and history of left Breast Cancer admitted because of left arm discomfort. Troponins were positive. Cardiac cath done at [facility]] on 04/19/2017 showed diffuse atherosclerosis but non obstructive and pulmonary HTN. Patient had non sustained VT post cath and was put on IV Amiodarone. She converted to SR and was later switched to oral Amiodarone. She was transferred to TCU for therapy because of deconditioning. Present on Admission - Present on Admission Any Indicators Present on Admission: No History of DVT/PE: No History of Uncontrolled Diabetes: No Urinary Catheter: No Decubitus Ulcer Present: No Review of Systems - Review of Systems All systems: reviewed and no additional remarkable complaints except (aside from those mentioned above, 14 point system review were negative by me) Past Patient History - Infectious Disease Hx of Infectious Diseases: None - Tetanus Immunizations Tetanus Immunization: Unknown - Past Medical History & Family History Past Medical History?: Yes - Past Social History Smoking Status: Never Smoked Alcohol: None Drugs: Denies - CARDIAC Hx Congestive Heart Failure: Yes - PULMONARY Hx Chronic Obstructive Pulmonary Disease (COPD): Yes - NEUROLOGICAL HX Cerebrovascular Accident: Yes Hx Transient Ischemic Attacks (TIA): Yes - HEENT Hx Cataracts: Yes (Extracted) - RENAL Hx Chronic Kidney Disease: No - ENDOCRINE/METABOLIC Hx Hypothyroidism: Yes - HEMATOLOGICAL/ONCOLOGICAL Hx AIDS: No Hx Cancer: Yes (Breast) Hx Human Immunodeficiency Virus (HIV): No - INTEGUMENTARY Hx Dermatological Problems: No - MUSCULOSKELETAL/RHEUMATOLOGICAL Hx Arthritis: Yes Hx Falls: No Hx Osteoarthritis: Yes Hx Osteoporosis: Yes - GASTROINTESTINAL Hx Gastrointestinal Disorders: No - GENITOURINARY/GYNECOLOGICAL Hx Incontinence: Yes - PSYCHIATRIC Hx Psychophysiologic Disorder: No Hx Substance Use: No - SURGICAL HISTORY Hx Angioplasty: Yes Hx Appendectomy: Yes Hx Cholecystectomy: Yes Hx Coronary Stent: Yes Hx Eye Surgery: Yes Hx Mastectomy: Yes - ANESTHESIA Hx Anesthesia: Yes Hx Anesthesia Reactions: No Hx Malignant Hyperthermia: No Meds Allergies/Adverse Reactions: Allergies Allergy/AdvReac Type Severity Reaction Status Date / Time No Known Allergies Allergy Verified 04/30/17 15:36 Physical Exam - Constitutional Appears: No Acute Distress - Head Exam Head Exam: ATRAUMATIC - Eye Exam Eye Exam: absent: Scleral icterus - ENT Exam ENT Exam: Mucous Membranes Moist - Neck Exam Neck exam: Negative for: Meningismus - Respiratory Exam Respiratory Exam: absent: Rhonchi, Wheezes, Respiratory Distress - Cardiovascular Exam Cardiovascular Exam: REGULAR RHYTHM, +S1, +S2 - GI/Abdominal Exam GI & Abdominal Exam: Soft. absent: Tenderness - Rectal Exam Rectal Exam: Deferred - Neurological Exam Neurological exam: Alert, Oriented x3 - Psychiatric Exam Psychiatric exam: Normal Affect - Skin Skin Exam: Dry, Intact Results - Vital Signs Recent Vital Signs: Last Vital Signs Temp 97.7 F 05/01/17 16:12 Pulse 61 05/01/17 16:12 Resp 20 05/01/17 16:12 BP 114/73 05/01/17 16:12 Pulse Ox 96 05/01/17 16:12 Assessment & Plan - Assessment and Plan (Free Text) Assessment: 81 yo female with history of Cardiomyopathy S/P AICD, Arrhythmia S/P Ablation, CAD, previous CVA, COPD, HTN and history of left Breast Cancer admitted because of left arm discomfort. Troponins were positive. Cardiac cath done at [facility]3] on 04/19/2017 showed diffuse atherosclerosis but non obstructive and pulmonary HTN. Patient had non sustained VT post cath and was put on IV Amiodarone. She converted to SR and was later switched to oral Amiodarone. She was transferred to TCU for therapy because of generalized weakness (1) Pulmonary hypertension continue Sildenafil 20mg PO TID (2) NSTEMI (non-ST elevated myocardial infarction) Troponin back to normal level continue ASA, statin, BB and ARB (3) CHF, Systolic and Diastolic Dysfunction BNP down to 1250 continue Amiodarone, Lasix, Losartan (4) COPD (chronic obstructive pulmonary disease) Duoneb q 4hrs prn for wheezing or SOB (5) Deconditioning continue PT/OT
[2017-05-02] MEDS: Levothyroxine 25 MCG TAB PO SCH (07:58)
[2017-05-02] MEDS: Calcium-Vit D 500 mg-200 Units Tab UD PO SCH (08:19)
[2017-05-02] MEDS: Multivitamin With Minerals Tab PO SCH (08:19)
[2017-05-02] MEDS: Sildenafil 20 MG TAB PO SCH (08:19)
[2017-05-02] MEDS: Metoprolol Succinate 50 mg XL Tab PO SCH (08:20)
[2017-05-02] MEDS: Cholecalciferol 1,000 INTLU TAB PO SCH (08:20)
[2017-05-03] MEDS: Levothyroxine 25 MCG TAB PO SCH (06:02)
[2017-05-03] MEDS: Calcium-Vit D 500 mg-200 Units Tab UD PO SCH (08:09)
[2017-05-03] MEDS: Metoprolol Succinate 50 mg XL Tab PO SCH (08:09)
[2017-05-03] MEDS: Multivitamin With Minerals Tab PO SCH (08:09)
[2017-05-03] MEDS: Sildenafil 20 MG TAB PO SCH ×3 (08:09→16:56)
[2017-05-03] MEDS: Cholecalciferol 1,000 INTLU TAB PO SCH (08:09)
--- NOTE | 2017-05-03 11:05 | CP.PCM.PN ---
Subjective - Date & Time of Evaluation Date of Evaluation: 05/03/17 Time of Evaluation: 11:05 - Subjective Subjective: The patient was seen on rounds, seated in a bedside chair. Her major complaint today is simply fatigue. Her vital signs have remained stable and she continues to be afebrile. There is only an occasional cough which is nonproductive. She does still experience some dyspnea on exertion but is able to participate in physical therapy activities. Her oral intake is less than adequate at the present time, but she has a distinct dislike for hospital food. Chest x-ray performed today shows some residual, mild pulmonary vascular congestion, but improved from her earlier films. No infiltrates or effusions are seen. Continue with current medical regimen unchanged. Objective - Vital Signs/Intake and Output Vital Signs (last 24 hours): Temp Pulse Resp BP Pulse Ox 97.0 F L 62 18 106/52 L 98 05/03/17 08:07 05/03/17 08:10 05/03/17 08:07 05/03/17 08:10 05/03/17 08:07 - Medications Medications: Current Medications Acetaminophen (Tylenol 325mg Tab) 650 mg PO Q4 PRN PRN Reason: Pain, moderate (4-7) Amiodarone HCl (Cordarone) 200 mg PO DAILY [facility] Last Admin: 05/03/17 08:10 Dose: 200 mg Anastrozole (Arimidex 1 Mg Tab) 1 mg PO DAILY [facility] Last Admin: 05/03/17 08:08 Dose: 1 mg Ascorbic Acid (Vitamin C 500 Mg Tab) 500 mg PO DAILY [facility] Last Admin: 05/03/17 08:09 Dose: 500 mg Aspirin (Ecotrin) 81 mg PO DAILY [facility] Last Admin: 05/03/17 08:10 Dose: 81 mg Atorvastatin Calcium (Lipitor) 20 mg PO HS [facility] Last Admin: 05/02/17 21:00 Dose: 20 mg Calcium/Vitamin D (Oyster Shell Calcium/Vitamin D 500 Mg-200 Iu) 1 tab PO DAILY [facility] Last Admin: 05/03/17 08:09 Dose: 1 tab Cholecalciferol (Vitamin D) 1,000 intlu PO DAILY [facility] Last Admin: 05/03/17 08:09 Dose: 1,000 intlu Docusate Sodium (Colace) 100 mg PO BID [facility] Last Admin: 05/03/17 08:19 Dose: 100 mg Furosemide (Lasix) 40 mg PO DAILY [facility] Last Admin: 05/03/17 08:10 Dose: 40 mg Heparin Sodium (Porcine) (Heparin) 5,000 units SC Q12 [facility] PRN Reason: Protocol Last Admin: 05/03/17 08:11 Dose: 5,000 units Levothyroxine Sodium (Synthroid) 25 mcg PO DAILY@0630 [facility] Last Admin: 05/03/17 06:02 Dose: 25 mcg Losartan Potassium (Cozaar) 25 mg PO DAILY [facility] Last Admin: 05/03/17 08:10 Dose: 25 mg Meclizine HCl (Antivert) 12.5 mg PO DAILY PRN PRN Reason: Dizziness Metoprolol Succinate (Toprol Xl) 50 mg PO DAILY [facility] Last Admin: 05/03/17 08:09 Dose: 50 mg Multivitamins/Minerals (Therapeutic-M Tab) 1 tab PO DAILY [facility] Last Admin: 05/03/17 08:09 Dose: 1 tab Sildenafil Citrate (Revatio) 20 mg PO TID [facility] Last Admin: 05/03/17 08:09 Dose: 20 mg Vitamin E (Vitamin E 400 Units Cap) 400 intlu PO DAILY [facility] Last Admin: 05/03/17 08:09 Dose: 400 intlu Assessment and Plan (1) Pulmonary hypertension Status: Chronic (2) NSTEMI (non-ST elevated myocardial infarction) Status: Acute (3) COPD (chronic obstructive pulmonary disease) Status: Chronic (4) Cardiomyopathy Status: Chronic
--- NOTE | 2017-05-03 14:31 | RAD ---
HISTORY: COMPARISON: 04/20/2017 TECHNIQUE: Chest PA and lateral FINDINGS: LINES AND TUBES: None. LUNG AND PLEURA: The lungs are well inflated. There is mild pulmonary venous congestion and interstitial pulmonary edema. No focal consolidation. HEART AND MEDIASTINUM: The heart is not enlarged. Atherosclerotic aortic arch calcifications are present. The hilar and mediastinal contours are within normal limits. There is stable position of a right-sided permanent pacing device. SKELETAL STRUCTURES: The bony structures are within normal limits for the patient's age. VISUALIZED UPPER ABDOMEN: Normal. OTHER FINDINGS: There are multiple surgical clips in the left axilla. IMPRESSION: No active pulmonary disease. Mild pulmonary venous congestion and interstitial pulmonary edema.
[2017-05-03 16:12] VITALS: RESP 20
[2017-05-04] MEDS: Levothyroxine 25 MCG TAB PO SCH (06:17)
[2017-05-04 06:59] LABS: HEMOGLOBIN 11.2 g/dL (12.0-16.0); MEAN CELL VOLUME 95.4 fl (81.0-99.0); MEAN CORPUSCULAR HEMOGLOBIN 31.2 pg (27.0-31.0); MEAN CORPUSCULAR HGB CONC 32.7 g/dL (33.0-37.0); RBC 3.6 Mil/uL (3.80-5.20); RED CELL DISTRIBUTION WIDTH 13.9 % (11.5-14.5); WHITE BLOOD COUNT 11.8 K/uL (4.8-10.8)
[2017-05-04 07:04] LABS: ALBUMIN 3.4 g/dL (3.5-5.0); CALCIUM 8.8 mg/dL (8.4-10.2)
[2017-05-04] MEDS: Metoprolol Succinate 50 mg XL Tab PO SCH (08:45)
[2017-05-04] MEDS: Sildenafil 20 MG TAB PO SCH ×4 (08:49→17:06)
--- NOTE | 2017-05-04 09:25 | CP.PCM.PN ---
Subjective - Date & Time of Evaluation Date of Evaluation: 05/04/17 Time of Evaluation: 09:20 - Subjective Subjective: Vital signs remain stable, she continues to be afebrile. Labs reviewed; stable CBC, normal LFT's renal function gradually improving. Having some difficulty with sleeping at night. Chest x-ray reviewed; some residual vascular congestion, but improved. Breath sounds are diminished bilaterally, but otherwise unremarkable. Continue on present medical regimen. Sleep aide as needed. Objective - Vital Signs/Intake and Output Vital Signs (last 24 hours): Temp Pulse Resp BP Pulse Ox 97.9 F 60 20 123/70 100 05/04/17 09:00 05/04/17 09:00 05/04/17 09:00 05/04/17 09:00 05/04/17 09:00 - Medications Medications: Current Medications Acetaminophen (Tylenol 325mg Tab) 650 mg PO Q4 PRN PRN Reason: Pain, moderate (4-7) Amiodarone HCl (Cordarone) 200 mg PO DAILY [facility] Last Admin: 05/04/17 08:48 Dose: 200 mg Anastrozole (Arimidex 1 Mg Tab) 1 mg PO DAILY [facility] Last Admin: 05/04/17 09:06 Dose: 1 mg Ascorbic Acid (Vitamin C 500 Mg Tab) 500 mg PO DAILY [facility] Last Admin: 05/04/17 08:47 Dose: 500 mg Aspirin (Ecotrin) 81 mg PO DAILY [facility] Last Admin: 05/04/17 08:47 Dose: 81 mg Atorvastatin Calcium (Lipitor) 20 mg PO HS [facility] Last Admin: 05/03/17 21:41 Dose: 20 mg Calcium/Vitamin D (Oyster Shell Calcium/Vitamin D 500 Mg-200 Iu) 1 tab PO DAILY @1030 [facility] Cholecalciferol (Vitamin D) 1,000 intlu PO DAILY@1030 [facility] Docusate Sodium (Colace) 100 mg PO BID [facility] Last Admin: 05/04/17 08:45 Dose: 100 mg Furosemide (Lasix) 40 mg PO DAILY [facility] Last Admin: 05/04/17 08:46 Dose: 40 mg Heparin Sodium (Porcine) (Heparin) 5,000 units SC Q12 [facility] PRN Reason: Protocol Last Admin: 05/04/17 08:49 Dose: 5,000 units Levothyroxine Sodium (Synthroid) 25 mcg PO DAILY@0630 [facility] Last Admin: 05/04/17 06:17 Dose: 25 mcg Losartan Potassium (Cozaar) 25 mg PO DAILY [facility] Last Admin: 05/04/17 08:47 Dose: 25 mg Meclizine HCl (Antivert) 12.5 mg PO DAILY PRN PRN Reason: Dizziness Metoprolol Succinate (Toprol Xl) 50 mg PO DAILY [facility] Last Admin: 05/04/17 08:45 Dose: 50 mg Multivitamins/Minerals (Therapeutic-M Tab) 1 tab PO DAILY@1030 [facility] Mupirocin (Bactroban Ointment) 1 applic TOP BID [facility] Last Admin: 05/04/17 08:44 Dose: 1 applic Sildenafil Citrate (Revatio) 20 mg PO TID [facility] Last Admin: 05/04/17 08:49 Dose: 20 mg Vitamin E (Vitamin E 400 Units Cap) 400 intlu PO DAILY [facility] Last Admin: 05/04/17 08:46 Dose: 400 intlu - Labs Labs: 05/04/17 06:00 05/04/17 06:00 Assessment and Plan (1) Pulmonary hypertension Status: Chronic (2) NSTEMI (non-ST elevated myocardial infarction) Status: Acute (3) COPD (chronic obstructive pulmonary disease) Status: Chronic (4) Cardiomyopathy Status: Chronic
[2017-05-04] MEDS: Multivitamin With Minerals Tab PO SCH (10:57)
[2017-05-04] MEDS: Cholecalciferol 1,000 INTLU TAB PO SCH (10:57)
[2017-05-04] MEDS: Calcium-Vit D 500 mg-200 Units Tab UD PO SCH (10:58)
--- NOTE | 2017-05-04 12:00 | CP.PCM.PN ---
Subjective - Date & Time of Evaluation Date of Evaluation: 05/04/17 Time of Evaluation: 09:00 - Subjective Subjective: Patient seen and examined at bedside. No complaints today. Nursing staff reports intermittent hypotension when getting up to take a shower; however her blood pressure improved when back in bed. Patient asymptomatic, denies any lightheadedness or dizziness. Unsure if false reading as this was not confirmed manually. Patient states she feels well today. Objective - Vital Signs/Intake and Output Vital Signs (last 24 hours): Temp Pulse Resp BP Pulse Ox 97.9 F 84 20 123/70 95 05/04/17 09:00 05/04/17 11:09 05/04/17 09:00 05/04/17 09:00 05/04/17 11:09 - Medications Medications: Current Medications Acetaminophen (Tylenol 325mg Tab) 650 mg PO Q4 PRN PRN Reason: Pain, moderate (4-7) Amiodarone HCl (Cordarone) 200 mg PO DAILY [facility] Last Admin: 05/04/17 08:48 Dose: 200 mg Anastrozole (Arimidex 1 Mg Tab) 1 mg PO DAILY [facility] Last Admin: 05/04/17 09:06 Dose: 1 mg Ascorbic Acid (Vitamin C 500 Mg Tab) 500 mg PO DAILY [facility] Last Admin: 05/04/17 08:47 Dose: 500 mg Aspirin (Ecotrin) 81 mg PO DAILY [facility] Last Admin: 05/04/17 08:47 Dose: 81 mg Atorvastatin Calcium (Lipitor) 20 mg PO HS [facility] Last Admin: 05/03/17 21:41 Dose: 20 mg Calcium/Vitamin D (Oyster Shell Calcium/Vitamin D 500 Mg-200 Iu) 1 tab PO DAILY @1030 [facility] Cholecalciferol (Vitamin D) 1,000 intlu PO DAILY@1030 [facility] Docusate Sodium (Colace) 100 mg PO BID [facility] Last Admin: 05/04/17 08:45 Dose: 100 mg Furosemide (Lasix) 40 mg PO DAILY [facility] Last Admin: 05/04/17 08:46 Dose: 40 mg Heparin Sodium (Porcine) (Heparin) 5,000 units SC Q12 [facility] PRN Reason: Protocol Last Admin: 05/04/17 08:49 Dose: 5,000 units Levothyroxine Sodium (Synthroid) 25 mcg PO DAILY@0630 [facility] Last Admin: 02/20/18 06:17 Dose: 25 mcg Losartan Potassium (Cozaar) 25 mg PO DAILY [facility] Last Admin: 05/04/17 08:47 Dose: 25 mg Meclizine HCl (Antivert) 12.5 mg PO DAILY PRN PRN Reason: Dizziness Metoprolol Succinate (Toprol Xl) 50 mg PO DAILY [facility] Last Admin: 05/04/17 08:45 Dose: 50 mg Multivitamins/Minerals (Therapeutic-M Tab) 1 tab PO DAILY@1030 [facility] Mupirocin (Bactroban Ointment) 1 applic TOP BID [facility] Last Admin: 05/04/17 08:44 Dose: 1 applic Sildenafil Citrate (Revatio) 20 mg PO TID [facility] Last Admin: 05/04/17 08:49 Dose: 20 mg Vitamin E (Vitamin E 400 Units Cap) 400 intlu PO DAILY [facility] Last Admin: 05/04/17 08:46 Dose: 400 intlu Zolpidem Tartrate (Ambien) 5 mg PO HS PRN PRN Reason: Insomnia - Labs Labs: 05/04/17 06:00 05/04/17 06:00 - Additional Findings Additional findings: Physical exam: Constitutional- cooperative, awake, alert Head- NCAT, PERRL Eye- PERRL, EOMI ENT- normal exam, MMM. Neck- normal inspection, supple, no JVD Respiratory- CTAB, no wheezes rales rhonchi Cardiovascular- RRR, +S1, +S2 no MRG GI/Abdominal- normal bowel sounds, soft, no mass, no hsm Skin- warm, dry Extremities Exam- normal capillary refill, normal inspection Neurological Exam- alert, awake, oriented Psych- normal mood, normal affect Assessment and Plan - Assessment and Plan (Free Text) Plan: Assessment: 81 yo female with history of Cardiomyopathy S/P AICD, Arrhythmia S/P Ablation, CAD, previous CVA, COPD, HTN and history of left Breast Cancer admitted because of left arm discomfort. Troponins were positive. Cardiac cath done at [facility] on 04/19/2017 showed diffuse atherosclerosis but non obstructive and pulmonary HTN. Patient had non sustained VT post cath and was put on IV Amiodarone. She converted to SR and was later switched to oral Amiodarone. She was transferred to TCU for therapy because of generalized weakness (1) Pulmonary hypertension continue Sildenafil 20mg PO TID (2) NSTEMI (non-ST elevated myocardial infarction) Troponin back to normal level continue ASA, statin, BB and ARB (3) CHF, Systolic and Diastolic Dysfunction BNP down to 1250 continue Amiodarone, Lasix, Losartan (4) COPD (chronic obstructive pulmonary disease) Duoneb q 4hrs prn for wheezing or SOB (5) Deconditioning continue PT/OT
[2017-05-05] MEDS: Levothyroxine 25 MCG TAB PO SCH (05:49)
--- NOTE | 2017-05-05 08:19 | CON ---
NEUROLOGY CONSULT DATE: 05/04/2017 CHIEF COMPLAINT: Evaluate for cognitive decline. HISTORY OF PRESENT ILLNESS: An 81-year-old woman with history of cardiomyopathy, status post AICD, arrhythmia, status post ablation, CAD, previous CVA, COPD, hypertension, history of left breast cancer, admitted to the hospital because of left arm discomfort, troponins were positive therefore cardiac cath was done at [facility] on 04/19/2017 showed a diffuse atherosclerotic disease and nonobstructive and severe pulmonary hypertension. Currently hypertension is being managed by sildenafil and by Pulmonary, currently was consulted for cognitive decline over the past few months noticed by family she is in TCU for therapy for deconditioning. She is very forgetful, forgets intricate details or conversation after few minutes. She knows her address, but she occasionally forgets the season and the year. She has a poor attention span, slow thought process. She is on aspirin 81 mg and Lipitor for stroke prevention. No acute events overnight. PAST MEDICAL HISTORY: As above. SOCIAL HISTORY: No illicit drug use, smoking or EtOH abuse. MEDICATIONS: Reviewed by nurse reconciliation sheet. ALLERGIES: NO KNOWN DRUG ALLERGIES. REVIEW OF SYSTEMS: A 14-point review of systems negative except for the HPI. FAMILY HISTORY: Noncontributory. PHYSICAL EXAMINATION: VITAL SIGNS: Temperature 97.2, pulse rate 80, blood pressure 95/48, respiratory rate 20 and oxygen saturation 99% on room air. GENERAL: Patient is sitting up in bed, no acute distress. HEENT: Atraumatic and normocephalic. PERRLA. Extraocular muscles intact. NECK: Supple. No JVD. No adenopathy noted. LUNGS: Clear to auscultation. No adventitious sounds. HEART: S1 and S2. Normal rate and rhythm. No murmur, rubs, or gallops. ABDOMEN: Soft, nontender and nondistended. Bowel sounds are present. EXTREMITIES: No clubbing. No cyanosis. Peripheral pulses 2+ bilaterally. NEUROLOGIC: The patient is alert, oriented to person and place, not much of year. Recall after 5 minutes 0/3. Poor attention span. Slow thought process. Affect is flat. Cranial nerves II through XII intact. Speech is fluent without any errors. Motor exam: Slight increased tone throughout, moves all extremities equally. Sensory: Decreased to light touch and pin prick up to the calves bilaterally. Decreased vibration of the toes. DTRs are 2+ throughout and 1 at the ankles. Coordination: [id number] intact. Gait is deferred for now. LABORATORY DATA: Sodium is 132, potassium 3.5, chloride of 93, carbon dioxide 29, BUN of 35, creatinine 1.4 and random glucose of 97. ASSESSMENT AND PLAN: This is an 81-year-old woman with a past medical history of cardiomyopathy, status post automatic implantable cardioverter defibrillator, arrhythmia, status post ablation, coronary artery disease, previous cerebrovascular accident, chronic obstructive pulmonary disease, hypertension, dyslipidemia, left breast cancer for left arm discomfort. Troponins are positive, cardiac cath was done at [facility] on 04/19/2017 showed diffuse atherosclerotic disease, but nonobstructive and showed severe pulmonary hypertension for which she is on sidenafil 20 mg p.o. t.i.d. She is currently on TCU for generalized weakness at deconditioned state, was consulted for cognitive decline. Her cognitive decline is most likely secondary to mild cognitive impairment, superimposed on the chronic medical conditions and has low systolic and diastolic blood pressures causing flow making the patient attention very slow from underlying cardiomyopathy, at this time recommend. 1. Namenda 10 mg p.o. daily. 2. Advised attention and concentration exercises. 3. Physical exercise and rehabilitation for deconditioned state. 4. Continue with sidenafil 20 mg p.o. t.i.d. for pulmonary hypertension. 5. Continue with and Lasix, we will start her for underlying CHF. 6. Will follow up as an outpatient for further memory management and continue current present medical management. Thank you for this consult. Dmitri Haque MD
[2017-05-05] MEDS: Sildenafil 20 MG TAB PO SCH ×3 (08:46→16:47)
[2017-05-05] MEDS: Metoprolol Succinate 50 mg XL Tab PO SCH (09:48)
[2017-05-05] MEDS: Calcium-Vit D 500 mg-200 Units Tab UD PO SCH (10:47)
[2017-05-05] MEDS: Cholecalciferol 1,000 INTLU TAB PO SCH (10:48)
[2017-05-05] MEDS: Multivitamin With Minerals Tab PO SCH (10:49)
[2017-05-06] MEDS: Levothyroxine 25 MCG TAB PO SCH (05:41)
[2017-05-06] MEDS: Sildenafil 20 MG TAB PO SCH ×6 (08:35→16:41)
[2017-05-06] MEDS: Metoprolol Succinate 50 mg XL Tab PO SCH (08:36)
--- NOTE | 2017-05-06 10:02 | CP.PCM.PN ---
Subjective - Date & Time of Evaluation Date of Evaluation: 05/06/17 Time of Evaluation: 10:02 - Subjective Subjective: doing well this morning, in good spirits HD stable NAD Objective - Vital Signs/Intake and Output Vital Signs (last 24 hours): Temp Pulse Resp BP Pulse Ox 97.8 F 60 20 137/58 L 97 05/06/17 07:40 05/06/17 09:05 05/06/17 07:40 05/06/17 09:05 05/06/17 07:40 Constitutional- cooperative, awake, alert Head- NCAT, PERRL Eye- PERRL, EOMI ENT- normal exam, MMM. Neck- normal inspection, supple, no JVD Respiratory- CTAB, no wheezes rales rhonchi Cardiovascular- RRR, +S1, +S2 no MRG GI/Abdominal- normal bowel sounds, soft, no mass, no hsm Skin- warm, dry Extremities Exam- normal capillary refill, normal inspection Neurological Exam- alert, awake, oriented Psych- normal mood, normal affect - Medications Medications: Current Medications Acetaminophen (Tylenol 325mg Tab) 650 mg PO Q4 PRN PRN Reason: Pain, moderate (4-7) Amiodarone HCl (Cordarone) 200 mg PO DAILY [facility] Last Admin: 05/06/17 09:05 Dose: 200 mg Anastrozole (Arimidex 1 Mg Tab) 1 mg PO DAILY [facility] Last Admin: 05/06/17 08:33 Dose: 1 mg Ascorbic Acid (Vitamin C 500 Mg Tab) 500 mg PO DAILY [facility] Last Admin: 05/06/17 08:36 Dose: 500 mg Aspirin (Ecotrin) 81 mg PO DAILY [facility] Last Admin: 05/06/17 08:35 Dose: 81 mg Atorvastatin Calcium (Lipitor) 20 mg PO HS [facility] Last Admin: 05/05/17 21:25 Dose: 20 mg Calcium/Vitamin D (Oyster Shell Calcium/Vitamin D 500 Mg-200 Iu) 1 tab PO DAILY @1030 [facility] Last Admin: 05/05/17 10:47 Dose: 1 tab Cholecalciferol (Vitamin D) 1,000 intlu PO DAILY@1030 [facility] Last Admin: 05/05/17 10:48 Dose: 1,000 intlu Docusate Sodium (Colace) 100 mg PO BID [facility] Last Admin: 05/06/17 08:34 Dose: 100 mg Furosemide (Lasix) 40 mg PO DAILY [facility] Last Admin: 05/06/17 08:35 Dose: 40 mg Heparin Sodium (Porcine) (Heparin) 5,000 units SC Q12 [facility] PRN Reason: Protocol Last Admin: 05/06/17 08:36 Dose: 5,000 units Levothyroxine Sodium (Synthroid) 25 mcg PO DAILY@0630 [facility] Last Admin: 05/06/17 05:41 Dose: 25 mcg Losartan Potassium (Cozaar) 25 mg PO DAILY [facility] Last Admin: 05/06/17 09:05 Dose: 25 mg Meclizine HCl (Antivert) 12.5 mg PO DAILY PRN PRN Reason: Dizziness Memantine (Namenda) 10 mg PO DAILY [facility] Last Admin: 05/06/17 08:35 Dose: 10 mg Metoprolol Succinate (Toprol Xl) 50 mg PO DAILY [facility] Last Admin: 05/06/17 08:36 Dose: 50 mg Multivitamins/Minerals (Therapeutic-M Tab) 1 tab PO DAILY@1030 [facility] Last Admin: 05/05/17 10:49 Dose: 1 tab Mupirocin (Bactroban Ointment) 1 applic TOP BID [facility] Last Admin: 05/06/17 08:32 Dose: 1 applic Sildenafil Citrate (Revatio) 20 mg PO TID [facility] Last Admin: 05/06/17 08:35 Dose: 20 mg Vitamin E (Vitamin E 400 Units Cap) 400 intlu PO DAILY [facility] Last Admin: 05/06/17 08:36 Dose: 400 intlu Zolpidem Tartrate (Ambien) 5 mg PO HS PRN PRN Reason: Insomnia Last Admin: 05/05/17 22:44 Dose: 5 mg - Labs Labs: 05/04/17 06:00 05/04/17 06:00 Assessment and Plan - Assessment and Plan (Free Text) Plan: 81 yo female with history of Cardiomyopathy S/P AICD, Arrhythmia S/P Ablation, CAD, previous CVA, COPD, HTN and history of left Breast Cancer admitted because of left arm discomfort. Troponins were positive. Cardiac cath done at [facility] on 04/19/2017 showed diffuse atherosclerosis but non obstructive and pulmonary HTN. Patient had non sustained VT post cath and was put on IV Amiodarone. She converted to SR and was later switched to oral Amiodarone. She was transferred to TCU for therapy because of generalized weakness (1) Pulmonary hypertension continue Sildenafil 20mg PO TID (2) NSTEMI (non-ST elevated myocardial infarction) Troponin back to normal level continue ASA, statin, BB and ARB (3) CHF, Systolic and Diastolic Dysfunction BNP down to 1250 continue Amiodarone, Lasix, Losartan (4) COPD (chronic obstructive pulmonary disease) Duoneb q 4hrs prn for wheezing or SOB (5) Deconditioning continue PT/OT
[2017-05-06] MEDS: Cholecalciferol 1,000 INTLU TAB PO SCH (10:33)
[2017-05-06] MEDS: Calcium-Vit D 500 mg-200 Units Tab UD PO SCH (10:33)
[2017-05-06] MEDS: Multivitamin With Minerals Tab PO SCH (10:33)
--- NOTE | 2017-05-06 16:05 | CP.PCM.PN ---
Subjective - Date & Time of Evaluation Date of Evaluation: 05/06/17 Time of Evaluation: 16:03 - Subjective Subjective: Seen earlier on rounds in the transitional care unit. The patient is seated in a bedside chair and eating lunch at the time. Neurology consultation from Dr. Haque was reviewed. Patient appears to be in relatively good spirits and her mentation is clear. Her cough has resolved and she has no complaints of shortness of breath while at rest. Her vital signs have remained stable. She will continue with physical therapy and be discharged to another rehabilitation facility because of longer term needs. Objective - Vital Signs/Intake and Output Vital Signs (last 24 hours): Temp Pulse Resp BP Pulse Ox 97.8 F 60 20 137/58 L 97 05/06/17 07:40 05/06/17 09:05 05/06/17 07:40 05/06/17 09:05 05/06/17 07:40 - Medications Medications: Current Medications Acetaminophen (Tylenol 325mg Tab) 650 mg PO Q4 PRN PRN Reason: Pain, moderate (4-7) Amiodarone HCl (Cordarone) 200 mg PO DAILY [facility] Last Admin: 05/06/17 09:05 Dose: 200 mg Anastrozole (Arimidex 1 Mg Tab) 1 mg PO DAILY [facility] Last Admin: 05/06/17 08:33 Dose: 1 mg Ascorbic Acid (Vitamin C 500 Mg Tab) 500 mg PO DAILY [facility] Last Admin: 05/06/17 08:36 Dose: 500 mg Aspirin (Ecotrin) 81 mg PO DAILY [facility] Last Admin: 05/06/17 08:35 Dose: 81 mg Atorvastatin Calcium (Lipitor) 20 mg PO HS [facility] Last Admin: 05/05/17 21:25 Dose: 20 mg Calcium/Vitamin D (Oyster Shell Calcium/Vitamin D 500 Mg-200 Iu) 1 tab PO DAILY @1030 [facility] Last Admin: 05/06/17 10:33 Dose: 1 tab Cholecalciferol (Vitamin D) 1,000 intlu PO DAILY@1030 [facility] Last Admin: 05/06/17 10:33 Dose: 1,000 intlu Docusate Sodium (Colace) 100 mg PO BID [facility] Last Admin: 05/06/17 08:34 Dose: 100 mg Furosemide (Lasix) 40 mg PO DAILY [facility] Last Admin: 05/06/17 08:35 Dose: 40 mg Heparin Sodium (Porcine) (Heparin) 5,000 units SC Q12 [facility] PRN Reason: Protocol Last Admin: 05/06/17 08:36 Dose: 5,000 units Levothyroxine Sodium (Synthroid) 25 mcg PO DAILY@0630 [facility] Last Admin: 05/06/17 05:41 Dose: 25 mcg Losartan Potassium (Cozaar) 25 mg PO DAILY [facility] Last Admin: 05/06/17 09:05 Dose: 25 mg Meclizine HCl (Antivert) 12.5 mg PO DAILY PRN PRN Reason: Dizziness Memantine (Namenda) 10 mg PO DAILY [facility] Last Admin: 05/06/17 08:35 Dose: 10 mg Metoprolol Succinate (Toprol Xl) 50 mg PO DAILY [facility] Last Admin: 05/06/17 08:36 Dose: 50 mg Multivitamins/Minerals (Therapeutic-M Tab) 1 tab PO DAILY@1030 [facility] Last Admin: 05/06/17 10:33 Dose: 1 tab Mupirocin (Bactroban Ointment) 1 applic TOP BID [facility] Last Admin: 05/06/17 08:32 Dose: 1 applic Sildenafil Citrate (Revatio) 20 mg PO TID [facility] Last Admin: 05/06/17 12:53 Dose: 20 mg Vitamin E (Vitamin E 400 Units Cap) 400 intlu PO DAILY [facility] Last Admin: 05/06/17 08:36 Dose: 400 intlu Zolpidem Tartrate (Ambien) 5 mg PO HS PRN PRN Reason: Insomnia Last Admin: 05/05/17 22:44 Dose: 5 mg - Labs Labs: 05/04/17 06:00 05/04/17 06:00 Assessment and Plan (1) Pulmonary hypertension Status: Chronic (2) NSTEMI (non-ST elevated myocardial infarction) Status: Acute (3) COPD (chronic obstructive pulmonary disease) Status: Chronic (4) Cardiomyopathy Status: Chronic
[2017-05-07] MEDS: Levothyroxine 25 MCG TAB PO SCH (06:04)
[2017-05-07] MEDS: Sildenafil 20 MG TAB PO SCH ×3 (08:26→17:16)
[2017-05-07] MEDS: Metoprolol Succinate 50 mg XL Tab PO SCH (08:27)
[2017-05-07] MEDS: Calcium-Vit D 500 mg-200 Units Tab UD PO SCH (10:49)
[2017-05-07] MEDS: Multivitamin With Minerals Tab PO SCH (10:49)
[2017-05-07] MEDS: Cholecalciferol 1,000 INTLU TAB PO SCH (10:49)
--- NOTE | 2017-05-07 16:51 | CP.PCM.PN ---
Subjective - Date & Time of Evaluation Date of Evaluation: 05/07/17 Time of Evaluation: 16:50 - Subjective Subjective: Doing very well on current medical regimen. Plan for discharge to extended sub-acute rehab in AM. Objective - Vital Signs/Intake and Output Vital Signs (last 24 hours): Temp Pulse Resp BP Pulse Ox 97.5 F L 61 20 137/46 L 97 05/07/17 16:45 05/07/17 16:45 05/07/17 16:45 05/07/17 16:45 05/07/17 16:45 - Medications Medications: Current Medications Acetaminophen (Tylenol 325mg Tab) 650 mg PO Q4 PRN PRN Reason: Pain, moderate (4-7) Amiodarone HCl (Cordarone) 200 mg PO DAILY [facility] Last Admin: 05/07/17 08:26 Dose: 200 mg Anastrozole (Arimidex 1 Mg Tab) 1 mg PO DAILY [facility] Last Admin: 05/07/17 08:25 Dose: 1 mg Ascorbic Acid (Vitamin C 500 Mg Tab) 500 mg PO DAILY [facility] Last Admin: 05/07/17 08:27 Dose: 500 mg Aspirin (Ecotrin) 81 mg PO DAILY [facility] Last Admin: 05/07/17 08:27 Dose: 81 mg Atorvastatin Calcium (Lipitor) 20 mg PO HS [facility] Last Admin: 05/06/17 22:07 Dose: 20 mg Bisacodyl (Dulcolax) 10 mg [place] DAILY PRN PRN Reason: Constipation Last Admin: 05/06/17 18:30 Dose: 10 mg Calcium/Vitamin D (Oyster Shell Calcium/Vitamin D 500 Mg-200 Iu) 1 tab PO DAILY @1030 [facility] Last Admin: 05/07/17 10:49 Dose: 1 tab Cholecalciferol (Vitamin D) 1,000 intlu PO DAILY@1030 [facility] Last Admin: 05/07/17 10:49 Dose: 1,000 intlu Docusate Sodium (Colace) 100 mg PO BID [facility] Last Admin: 05/07/17 16:41 Dose: 100 mg Furosemide (Lasix) 40 mg PO DAILY [facility] Last Admin: 05/07/17 08:28 Dose: 40 mg Heparin Sodium (Porcine) (Heparin) 5,000 units SC Q12 [facility] PRN Reason: Protocol Last Admin: 05/07/17 08:27 Dose: 5,000 units Levothyroxine Sodium (Synthroid) 25 mcg PO DAILY@0630 [facility] Last Admin: 05/07/17 06:04 Dose: 25 mcg Losartan Potassium (Cozaar) 25 mg PO DAILY [facility] Last Admin: 05/07/17 08:27 Dose: 25 mg Meclizine HCl (Antivert) 12.5 mg PO DAILY PRN PRN Reason: Dizziness Memantine (Namenda) 10 mg PO DAILY [facility] Last Admin: 05/07/17 08:30 Dose: 10 mg Metoprolol Succinate (Toprol Xl) 50 mg PO DAILY [facility] Last Admin: 05/07/17 08:27 Dose: 50 mg Multivitamins/Minerals (Therapeutic-M Tab) 1 tab PO DAILY@1030 [facility] Last Admin: 05/07/17 10:49 Dose: 1 tab Mupirocin (Bactroban Ointment) 1 applic TOP BID [facility] Last Admin: 05/07/17 16:41 Dose: 1 applic Sildenafil Citrate (Revatio) 20 mg PO TID [facility] Last Admin: 05/07/17 13:38 Dose: 20 mg Vitamin E (Vitamin E 400 Units Cap) 400 intlu PO DAILY [facility] Last Admin: 05/07/17 08:27 Dose: 400 intlu Zolpidem Tartrate (Ambien) 5 mg PO HS PRN PRN Reason: Insomnia Last Admin: 05/06/17 22:10 Dose: 5 mg - Labs Labs: 05/04/17 06:00 05/04/17 06:00 Assessment and Plan (1) Pulmonary hypertension Status: Chronic (2) NSTEMI (non-ST elevated myocardial infarction) Status: Acute (3) COPD (chronic obstructive pulmonary disease) Status: Chronic (4) Cardiomyopathy Status: Chronic
[2017-05-08] MEDS: Levothyroxine 25 MCG TAB PO SCH (06:05)
[2017-05-08 08:49] VITALS: BP 109/53; PULSE 60; TEMP 97.2; O2SAT 98
[2017-05-08] MEDS: Sildenafil 20 MG TAB PO SCH ×3 (09:20→12:24)
[2017-05-08] MEDS: Metoprolol Succinate 50 mg XL Tab PO SCH (09:24)
[2017-05-08] MEDS: Multivitamin With Minerals Tab PO SCH (11:02)
[2017-05-08] MEDS: Calcium-Vit D 500 mg-200 Units Tab UD PO SCH (11:03)
[2017-05-08] MEDS: Cholecalciferol 1,000 INTLU TAB PO SCH (11:04)
--- NOTE | 2017-05-08 12:18 | CP.PCM.DIS ---
Provider - Provider Date of Admission: 04/30/17 16:00 Attending physician: Mohan Hernandez MD Time Spent in preparation of Discharge (in minutes): 30 Diagnosis - Discharge Diagnosis (1) Pulmonary hypertension Status: Chronic Priority: High (2) AICD discharge Status: Acute Priority: High (3) GINNY (acute kidney injury) Status: Acute (4) Bronchospasm with bronchitis, acute Status: Acute Priority: High (5) CKD (chronic kidney disease) stage 3, GFR 30-59 ml/min Status: Acute Hospital Course - Lab Results Lab Results: Most Recent Lab Values WBC 11.8 K/uL (4.8-10.8) H 05/04/17 06:00 RBC 3.60 Mil/uL (3.80-5.20) L 05/04/17 06:00 Hgb 11.2 g/dL (12.0-16.0) L 05/04/17 06:00 Hct 34.3 % (34.0-47.0) 05/04/17 06:00 MCV 95.4 fl (81.0-99.0) 05/04/17 06:00 MCH 31.2 pg (27.0-31.0) H 05/04/17 06:00 MCHC 32.7 g/dL (33.0-37.0) L 05/04/17 06:00 RDW 13.9 % (11.5-14.5) 05/04/17 06:00 Plt Count 258 K/uL (130-400) 05/04/17 06:00 Sodium 133 mmol/l (132-148) 05/04/17 06:00 Potassium 3.5 MMOL/L (3.6-5.0) L 05/04/17 06:00 Chloride 93 mmol/L (98-107) L 05/04/17 06:00 Carbon Dioxide 29 mmol/L (22-30) 05/04/17 06:00 Anion Gap 15 (10-20) 05/04/17 06:00 BUN 35 mg/dl (7-17) H 05/04/17 06:00 Creatinine 1.4 mg/dl (0.7-1.2) H 05/04/17 06:00 Est GFR ( Amer) 44 05/04/17 06:00 Est GFR (Non-Af Amer) 36 05/04/17 06:00 Random Glucose 97 mg/dL (65-105) 05/04/17 06:00 Calcium 8.8 mg/dL (8.4-10.2) 05/04/17 06:00 Total Bilirubin 0.5 mg/dl (0.2-1.3) 05/04/17 06:00 AST 25 U/L (14-36) 05/04/17 06:00 ALT 33 U/L (9-52) 05/04/17 06:00 Alkaline Phosphatase 56 U/L (38-126) 05/04/17 06:00 NT-Pro-B Natriuret Pep 1130 pg/ml (0-900) H 05/04/17 06:00 Total Protein 6.7 G/DL (6.3-8.2) 05/04/17 06:00 Albumin 3.4 g/dL (3.5-5.0) L 05/04/17 06:00 Globulin 3.3 gm/dL (2.2-3.9) 05/04/17 06:00 Albumin/Globulin Ratio 1.0 (1.0-2.1) 05/04/17 06:00 - Hospital Course Hospital Course: 81 yo female with history of Cardiomyopathy S/P AICD, Arrhythmia S/P Ablation, CAD, previous CVA, COPD, HTN and history of left Breast Cancer admitted because of left arm discomfort. Troponins were positive. Cardiac cath done at [facility] on 04/19/2017 showed diffuse atherosclerosis but non obstructive and pulmonary HTN. Patient had non sustained VT post cath and was put on IV Amiodarone. She converted to SR and was later switched to oral Amiodarone. She was transferred to TCU for therapy because of generalized weakness. Pt participated well with therapy, improved, now stable for discharge to rehab. Follow up PCP one week. (1) Pulmonary hypertension continue Sildenafil 20mg PO TID (2) NSTEMI (non-ST elevated myocardial infarction) Troponin back to normal level continue ASA, statin, BB and ARB (3) CHF, Systolic and Diastolic Dysfunction BNP down to 1250 continue Amiodarone, Lasix, Losartan (4) COPD (chronic obstructive pulmonary disease) Duoneb q 4hrs prn for wheezing or SOB (5) Deconditioning continue PT/OT Discharge Exam - Head Exam Head Exam: ATRAUMATIC, NORMOCEPHALIC - Eye Exam Eye Exam: EOMI, Normal appearance, PERRL Pupil Exam: NORMAL ACCOMODATION - ENT Exam ENT Exam: Mucous Membranes Moist, Normal Oropharynx - Respiratory Exam Respiratory Exam: Clear to PA & Lateral, NORMAL BREATHING PATTERN - Cardiovascular Exam Cardiovascular Exam: RRR, +S1, +S2 - GI/Abdominal Exam GI & Abdominal Exam: Normal Bowel Sounds. absent: Mass, Tenderness - Extremities Exam Extremities exam: normal capillary refill, pedal pulses present - Back Exam Back exam: absent: CVA tenderness (L), CVA tenderness (R) - Neurological Exam Neurological exam: Alert, Reflexes Normal - Psychiatric Exam Psychiatric exam: Normal Affect, Normal Mood - Skin Skin Exam: Dry, Warm Discharge Plan - Follow Up Plan Condition: GOOD Disposition: TRANSF TO SNF Instructions: Fatigue (DC), Pulmonary Hypertension, Adult (DC)
--- NOTE | 2017-05-08 12:36 | CP.PCM.PN ---
Subjective - Date & Time of Evaluation Date of Evaluation: 05/08/17 Time of Evaluation: 12:00 - Subjective Subjective: Has done well on current regimen. Feels well, except for some persistent fatigue. Able to participate in physical therapy w/o problem. All vital signs remain stable. For discharge today. Objective - Vital Signs/Intake and Output Vital Signs (last 24 hours): Temp Pulse Resp BP Pulse Ox 97.2 F L 60 20 109/53 L 98 05/08/17 08:48 05/08/17 09:24 05/08/17 08:48 05/08/17 09:24 05/08/17 08:48 - Medications Medications: Current Medications Acetaminophen (Tylenol 325mg Tab) 650 mg PO Q4 PRN PRN Reason: Pain, moderate (4-7) Amiodarone HCl (Cordarone) 200 mg PO DAILY [facility] Last Admin: 05/08/17 09:23 Dose: 200 mg Anastrozole (Arimidex 1 Mg Tab) 1 mg PO DAILY [facility] Last Admin: 05/08/17 09:20 Dose: 1 mg Ascorbic Acid (Vitamin C 500 Mg Tab) 500 mg PO DAILY [facility] Last Admin: 05/08/17 09:25 Dose: 500 mg Aspirin (Ecotrin) 81 mg PO DAILY [facility] Last Admin: 05/08/17 09:22 Dose: 81 mg Atorvastatin Calcium (Lipitor) 20 mg PO HS [facility] Last Admin: 05/07/17 21:19 Dose: 20 mg Bisacodyl (Dulcolax) 10 mg [place] DAILY PRN PRN Reason: Constipation Last Admin: 05/06/17 18:30 Dose: 10 mg Calcium/Vitamin D (Oyster Shell Calcium/Vitamin D 500 Mg-200 Iu) 1 tab PO DAILY @1030 [facility] Last Admin: 05/08/17 11:03 Dose: 1 tab Cholecalciferol (Vitamin D) 1,000 intlu PO DAILY@1030 [facility] Last Admin: 05/08/17 11:04 Dose: 1,000 intlu Docusate Sodium (Colace) 100 mg PO BID [facility] Last Admin: 05/08/17 09:34 Dose: 100 mg Furosemide (Lasix) 40 mg PO DAILY [facility] Last Admin: 05/08/17 09:21 Dose: 40 mg Heparin Sodium (Porcine) (Heparin) 5,000 units SC Q12 [facility] PRN Reason: Protocol Last Admin: 05/08/17 09:22 Dose: 5,000 units Levothyroxine Sodium (Synthroid) 25 mcg PO DAILY@0630 [facility] Last Admin: 05/08/17 06:05 Dose: 25 mcg Losartan Potassium (Cozaar) 25 mg PO DAILY [facility] Last Admin: 05/08/17 09:22 Dose: 25 mg Meclizine HCl (Antivert) 12.5 mg PO DAILY PRN PRN Reason: Dizziness Memantine (Namenda) 10 mg PO DAILY [facility] Last Admin: 05/08/17 09:23 Dose: 10 mg Metoprolol Succinate (Toprol Xl) 50 mg PO DAILY [facility] Last Admin: 05/08/17 09:24 Dose: 50 mg Multivitamins/Minerals (Therapeutic-M Tab) 1 tab PO DAILY@1030 [facility] Last Admin: 05/08/17 11:02 Dose: 1 tab Mupirocin (Bactroban Ointment) 1 applic TOP BID [facility] Last Admin: 05/08/17 09:35 Dose: 1 applic Sildenafil Citrate (Revatio) 20 mg PO TID [facility] Last Admin: 05/08/17 12:24 Dose: 20 mg Vitamin E (Vitamin E 400 Units Cap) 400 intlu PO DAILY [facility] Last Admin: 05/08/17 09:21 Dose: 400 intlu Zolpidem Tartrate (Ambien) 5 mg PO HS PRN PRN Reason: Insomnia Last Admin: 05/07/17 22:27 Dose: 5 mg - Labs Labs: 05/04/17 06:00 05/04/17 06:00 Assessment and Plan (1) Pulmonary hypertension Status: Chronic (2) NSTEMI (non-ST elevated myocardial infarction) Status: Acute (3) COPD (chronic obstructive pulmonary disease) Status: Chronic (4) Cardiomyopathy Status: Chronic
== END 2017-05-08 13:35 | DRG 315 ==
LOC: H.TCU 16:00
PROC: F07Z9FZ Gait Training/Functional Ambulation Treatment using Assistive, Adaptive, Supportive or Protective Equipment (ICD-10-PCS; principal; 2017-04-30)
PROC: F08Z4FZ Home Management Treatment using Assistive, Adaptive, Supportive or Protective Equipment (ICD-10-PCS; 2017-04-30)
PROC: F07M6FZ Therapeutic Exercise Treatment of Musculoskeletal System - Whole Body using Assistive, Adaptive, Supportive or Protective Equipment (ICD-10-PCS; 2017-05-01)
DX: I27.20 Pulmonary hypertension, unspecified (principal); I42.9 Cardiomyopathy, unspecified; I95.9 Hypotension, unspecified; I13.0 Hypertensive heart and chronic kidney disease with heart failure and stage 1 through stage 4 chronic kidney disease, or unspecified chronic kidney disease; I50.40 Unspecified combined systolic (congestive) and diastolic (congestive) heart failure; J44.0 Chronic obstructive pulmonary disease with (acute) lower respiratory infection; Z51.89 Encounter for other specified aftercare; I25.2 Old myocardial infarction; J20.9 Acute bronchitis, unspecified; I25.10 Atherosclerotic heart disease of native coronary artery without angina pectoris; N18.3 Chronic kidney disease, stage 3 (moderate); E03.9 Hypothyroidism, unspecified; E78.5 Hyperlipidemia, unspecified; E78.00 Pure hypercholesterolemia, unspecified; M81.0 Age-related osteoporosis without current pathological fracture; M19.90 Unspecified osteoarthritis, unspecified site; Z87.01 Personal history of pneumonia (recurrent); Z86.73 Personal history of transient ischemic attack (TIA), and cerebral infarction without residual deficits; Z85.3 Personal history of malignant neoplasm of breast; Z95.5 Presence of coronary angioplasty implant and graft; Z95.810 Presence of automatic (implantable) cardiac defibrillator; Z87.891 Personal history of nicotine dependence

== ENCOUNTER 2017-06-30 09:28 | Inpatient (IN) | payer MEDICARE ==
[2017-06-30 09:29] VITALS: BMI 29.2
--- NOTE | 2017-06-30 10:44 | ED PDOC ---
HPI: SOB/CHF/COPD <Melanie Lamb - Last Filed: 07/07/17 17:36> Chief Complaint (Provider): I have right back pain for 3 months, shortness of breath since last night. History Per: Patient History/Exam Limitations: no limitations Onset/Duration Of Symptoms: Other (2 days with SOB, months with right back pain) Current Symptoms Are (Timing): Still Present Quality: "Pain" Current Respiratory Medications: See Home Med List Severity: Mild Associated Symptoms: denies: Fever, Chills, Sweating, Chest Pain, Bloody Cough, Productive Cough, Heart Racing, Leg/Calf Pain, Ankle/Leg Swelling, Light- headedness - Risk Factors PE Risk Factors: Pos: CHF <Abel Verdin - Last Filed: 07/11/17 22:19> Time Seen by Provider: 06/30/17 09:43 Chief Complaint (Nursing): Shortness Of Breath Additional Complaint(s): 81 year old female, accompanied by her insurance defense paralegal and niece, with significant cardiac history of 4 MIs, last cardiac cath in Apr 2017 presents for evaluation of worsening shortness of breath since yesterday and right sided back pain for past 3 months. Her shortness of breath worsened this morning, she was able to sleep. +orthopnea , she uses 5 pillows to sleep, denies paroxysmal nocturnal dyspnea, no leg edema. Unsure of weight gain, does not weight herself regularly, ' whenever I come to the hospital I lose about 10 lbs.' She does not have any chest pain or pressure, no nausea or vomiting, no cough. She states Lasix 40mg was prescribed to her, but she typically only takes 20mg every other day,' because it just had me peeing all the time, even on myself.' She last saw Dr. Da Silva about a week ago, no changes made to her medication. She sees Dr. Gomez, unsure what pulmonary diagnosis she has. Right sided back pain has been on going. May be exacerbated by position, nontender to touch, wants an XR to evaluate. Not sure if worsened with inspiration. PMD: Dr. Carr at [facility] Towel Cabinet Repairer: Dr. Da Silva Cream Gatherer: Dr. Gomez (Abel Verdin) Supervising Attending Note - Supervising Attending Note The Documented history was done by the: Physician Commissary Assistant The documented physical exam was done by the: Physician Commissary Assistant The documented procedures were done by the: Physician Commissary Assistant - Attestation: I have personally seen and examined this patient.: Yes I have fully participated in the care of the patient.: Yes I have reviewed all pertinent clinical information, including history, physical exam and plan: Yes <Melanie Lamb Y - Last Filed: 07/07/17 17:36> Past Medical History <Melanie Lamb Y - Last Filed: 07/07/17 17:36> - Medical History PMH: Arthritis, Back Problems, Bronchitis, CAD, Cardia Arrhythmia, CHF, COPD, HTN, Hypercholesterolemia, Hypothyroidism, Osteoporosis, Pneumonia, TIA Denies: HIV, Chronic Kidney Disease, Rheumatoid Arthritis - Surgical History Surgical History: Appendectomy, Cholecystectomy, Coronary Stent, Pacemaker (AICD ) - Family History Family History: States: No Known Family Hx, Unknown Family Hx - Immunization History Hx Tetanus Toxoid Vaccination: No Hx Influenza Vaccination: No Hx Pneumococcal Vaccination: No <Abel Verdin - Last Filed: 07/11/17 22:19> Vital Signs: Last Vital Signs Temp 98.4 F 07/03/17 16:05 Pulse 63 07/03/17 16:05 Resp 18 07/03/17 16:05 BP 116/56 L 07/03/17 16:05 Pulse Ox 96 07/03/17 16:05 - Home Medications Home Medications: Ambulatory Orders Medication Instructions Recorded Ascorbic Acid [Vitamin C] 500 mg PO DAILY 04/29/16 Multivit-Min/FA/Lycopen/Lutein 1 tab PO DAILY 04/29/16 [Centrum Silver Tablet] Anastrozole [Arimidex] 1 mg PO DAILY #30 tablet 12/09/16 Aspirin [Ecotrin] 81 mg PO DAILY #30 tabec 12/09/16 Calcium Carbonate/Vitamin D3 1 tab PO DAILY #30 tablet 12/09/16 [Caltrate 600 Plus D3 Tablet] Losartan [Cozaar] 25 mg PO DAILY #30 tab 12/09/16 Levothyroxine [Synthroid] 25 mcg PO DAILY@0630 tab 12/19/16 Atorvastatin [Lipitor] 20 mg PO HS 04/15/17 Cholecalciferol [Vitamin D 1000 IU] 1,000 unit PO DAILY 04/15/17 Vitamin E [Vitamin E 400 Units Cap] 400 unit PO DAILY 04/15/17 Amiodarone [Cordarone] 200 mg PO DAILY tab 04/30/17 Metoprolol Succinate [Toprol XL] 50 mg PO DAILY tab 04/30/17 Memantine [Namenda] 10 mg PO DAILY tab 05/08/17 Ofloxacin Otic 0.3% [Floxin 0.3% 5 drop AD BID 06/30/17 Otic Soln] Docusate [Colace] 200 mg PO DAILY cap 07/02/17 Enoxaparin [Lovenox] 30 mg SC DAILY syr 07/02/17 Lactulose [Enulose] 20 gm PO DAILY PRN udc 07/02/17 Sildenafil [Revatio] 20 mg PO TID tab 07/02/17 traMADol [Ultram] 50 mg PO Q6 PRN #20 tab 07/02/17 Furosemide [Lasix] 40 mg PO DAILY tab 07/03/17 Lidocaine 5% [Lidoderm] 1 ea TD DAILY patch 07/03/17 - Allergies Allergies/Adverse Reactions: Allergies Allergy/AdvReac Type Severity Reaction Status Date / Time No Known Allergies Allergy Verified 07/03/17 17:08 Curb-65 Severity Score - CURB-65 Severity Score Confusion: No Bun >19mg/dl (>7mmol/L): No Respiratory Rate greater than/equal to 30: No Systolic BP <90 or Diastolic BP less than/equal 60mmHg: No Age >64: Yes Curb-65 Score: 1 Percentage 30-day mortality: 2.7% <Abel Verdin - Last Filed: 07/11/17 22:19> Wells Criteria for PE - Wells Criteria for Pulmonary Embolism Clinical Signs and Symptoms of DVT: No P.E is #1 Diagnosis, or Equally Likely: No Total Score: 0 <Abel Verdin - Last Filed: 07/11/17 22:19> Review of Systems Constitutional: Negative for: Fever, Chills, Sweats Eyes: Negative for: Pain ENT: Negative for: Ear Pain, Ear Discharge, Nose Congestion Cardiovascular: Positive for: Orthopnea (chronic). Negative for: Chest Pain, Palpitations, Paroxysmal Noc. Dyspnea, Edema, Light Headedness Respiratory: Positive for: Shortness of Breath. Negative for: Cough, Hemoptysis , Pleuritic Pain, Sputum, Wheezing Gastrointestinal: Negative for: Nausea, Vomiting, Abdominal Pain, Diarrhea Genitourinary Female: Negative for: Dysuria, Frequency, Hematuria Skin: Negative for: Rash, Lesions, Jaundice Neurological: Negative for: Change in Speech, Confusion, Altered Mental Status Psych: Negative for: Anxiety, Depression <Abel Verdin - Last Filed: 07/11/17 22:19> Physical Exam - Reviewed Vital Signs Reviewed: Yes (hypertensive, took medications this AM) - Physical Exam Appears: Positive for: Well, Non-toxic, No Acute Distress Head Exam: Positive for: ATRAUMATIC, NORMAL INSPECTION, NORMOCEPHALIC Skin: Positive for: Normal Color, Warm Eye Exam: Positive for: EOMI, Normal appearance, PERRL ENT: Positive for: Normal ENT Inspection Neck: Positive for: Normal, Painless ROM Cardiovascular/Chest: Positive for: Regular Rate, Rhythm. Negative for: Edema, Friction Rub, Irregularly Irregular Respiratory: Positive for: Rales (bilaterally to mid lung field). Negative for : Stridor, Wheezing, Respiratory Distress, Plerual Rub Gastrointestinal/Abdominal: Positive for: Soft. Negative for: Tenderness, Distended Extremity: Negative for: Tenderness, Pedal Edema, Calf Tenderness Neurologic/Psych: Positive for: Alert, entry level recruiter II-XII <Abel Verdin - Last Filed: 07/11/17 22:19> - Laboratory Results Result Diagrams: 07/02/17 05:15 07/02/17 05:15 <Melanie Lamb - Last Filed: 07/07/17 17:36> - Laboratory Results Result Diagrams: 07/02/17 05:15 07/02/17 05:15 - ECG O2 Sat by Pulse Oximetry: 95 <Abel Verdin - Last Filed: 07/11/17 22:19> - Progress ED Course And Treament: 81 year old female with extensive cardiac history presents with SOB and right back pain. -CBC -CMP -BNP -TSH -Troponin -ECG -CXR Reeval Case d/w Dr. Lamb 11:45: patient sleeping in bed, no acute distress. Patient now stating she took Lasix 20mg PO today. will give Lasix 20mg IV since BP now within acceptable limits. (Abel Verdin) Disposition - Patient ED Disposition Is Patient to be Admitted: Yes - Disposition Disposition Time: 15:45 - Pt Status Changed To: Hospital Disposition Of: Inpatient - Admit Certification Admit to Inpatient:: After my assessment, the patient will require hospitalization for at least two midnights. This is because of the severity of symptoms shown, intensity of services needed, and/or the medical risk in this patient being treated as an outpatient. <Melanie Lamb - Last Filed: 07/07/17 17:36> <Abel Verdin - Last Filed: 07/11/17 22:19> - Clinical Impression Clinical Impression: Chronic congestive heart failure - Disposition Condition: STABLE Progress <Melanie Lamb - Last Filed: 07/07/17 17:36> <Abel Verdin - Last Filed: 07/11/17 22:19> - Notes: Notes:: Time: 15:25 Ashanti is an 81 y/o female with a strong cardiac history including CHF who presents to the ED complaining of shortness of breath since yesterday with orthopnea and elevated pro BNP. Patient is supposed to take 20 mg lasix daily but only takes 20 mg every other day because she doesn't like the increased frequency of urination. Towel Cabinet Repairer: Dr. Da Silva Chest XR FINDINGS: LINES AND TUBES: None. LUNG AND PLEURA: The lungs are well inflated. There is moderate pulmonary venous congestion. HEART AND MEDIASTINUM: The heart is not enlarged. Stable position of a right-sided dual lead permanent pacing device. The hilar and mediastinal contours are within normal limits. SKELETAL STRUCTURES: The bony structures are within normal limits for the patient's age. VISUALIZED UPPER ABDOMEN: Normal. OTHER FINDINGS: None. IMPRESSION: Moderate pulmonary venous congestion. No active pulmonary disease. Time: 15:45 --Spoke with Dr. Da Silva, patient's credit reporter, who recommends admission. Dr. Da Silva will see patient under medical service. Time: 15:50 --Dr. Singer accepted patient for admission. Scribe Attestation: Documented by Alireza Farooq, acting as a scribe for Melanie Lamb MD Provider Scribe Attestation: All medical record entries made by the Scribe were at my direction and personally dictated by me. I have reviewed the chart and agree that the record accurately reflects my personal performance of the history, physical exam, medical decision making, and the department course for this patient. I have also personally directed, reviewed, and agree with the discharge instructions and disposition. (Melanie Lamb)
[2017-06-30 10:53] LABS: BASO % 0.3 % (0.0-2.0); EOS # 0.1 K/uL (0.0-0.7); EOS % 0.9 % (0.0-4.0); HEMOGLOBIN 12.2 g/dL (12.0-16.0); LYMPH # 1.4 K/uL (1.0-4.3); MEAN CELL VOLUME 98.5 fl (81.0-99.0); MEAN CORPUSCULAR HEMOGLOBIN 33.1 pg (27.0-31.0); MEAN CORPUSCULAR HGB CONC 33.6 g/dL (33.0-37.0); MONO % 8.1 % (0.0-10.0); NEUT # 9.5 K/uL (1.8-7.0); NEUT % 78.7 % (50.0-75.0); NRBC % 0.1 % (0.0-0.0); RBC 3.67 Mil/uL (3.80-5.20); RED CELL DISTRIBUTION WIDTH 15.1 % (11.5-14.5); WHITE BLOOD COUNT 12.1 K/uL (4.8-10.8)
[2017-06-30 11:03] LABS: ALB/GLOB RATIO 1.2 (1.0-2.1); ALBUMIN 3.6 g/dL (3.5-5.0); CALCIUM 8.9 mg/dL (8.4-10.2)
[2017-06-30 11:15] LABS: TROPONIN I 0.012 ng/mL (0.00-0.120)
--- NOTE | 2017-06-30 13:23 | RAD ---
HISTORY: COMPARISON: 05/03/2017. TECHNIQUE: Chest PA and lateral FINDINGS: LINES AND TUBES: None. LUNG AND PLEURA: The lungs are well inflated. There is moderate pulmonary venous congestion. HEART AND MEDIASTINUM: The heart is not enlarged. Stable position of a right-sided dual lead permanent pacing device. The hilar and mediastinal contours are within normal limits. SKELETAL STRUCTURES: The bony structures are within normal limits for the patient's age. VISUALIZED UPPER ABDOMEN: Normal. OTHER FINDINGS: None. IMPRESSION: Moderate pulmonary venous congestion. No active pulmonary disease.
--- NOTE | 2017-06-30 17:31 | CARD ---
APPROVED REPORT EKG Measurement Heart [id number] <Conclusion> Atrial-paced rhythm Left ventricular hypertrophy with repolarization abnormality Abnormal ECG
[2017-06-30] MEDS: OFLOXACIN 0.3% AD SCH (22:16)
[2017-07-01] MEDS: Levothyroxine 25 MCG TAB PO SCH (05:47)
[2017-07-01 06:00] LABS: HEMOGLOBIN 12.2 g/dL (12.0-16.0); MEAN CELL VOLUME 98.7 fl (81.0-99.0); MEAN CORPUSCULAR HEMOGLOBIN 31.9 pg (27.0-31.0); MEAN CORPUSCULAR HGB CONC 32.3 g/dL (33.0-37.0); RBC 3.84 Mil/uL (3.80-5.20); WHITE BLOOD COUNT 13.5 K/uL (4.8-10.8)
[2017-07-01 06:27] LABS: TROPONIN I 0.022 ng/mL (0.00-0.120)
[2017-07-01 06:34] LABS: ALB/GLOB RATIO 1.1 (1.0-2.1); ALBUMIN 3.7 g/dL (3.5-5.0)
[2017-07-01 06:45] LABS: T3 0.537 nmol/L (1.49-2.60)
--- NOTE | 2017-07-01 07:09 | CP.PCM.CON ---
History of Present Illness - History of Present Illness History of Present Illness: Consultation for evaluation of CHF exacerbation HPI: Past Patient History - Infectious Disease Hx of Infectious Diseases: None - Tetanus Immunizations Tetanus Immunization: Unknown - Past Medical History & Family History Past Medical History?: Yes - Past Social History Smoking Status: Never Smoked - CARDIAC Hx Cardiac Disorders: Yes Hx Congestive Heart Failure: Yes Hx Hypercholesterolemia: Yes Hx Hypertension: Yes - PULMONARY Hx Respiratory Disorders: Yes Hx Bronchitis: Yes Hx Chronic Obstructive Pulmonary Disease (COPD): Yes - NEUROLOGICAL Hx Neurological Disorder: Yes HX Cerebrovascular Accident: Yes Hx Transient Ischemic Attacks (TIA): Yes - HEENT Hx HEENT Problems: Yes Hx Cataracts: Yes - RENAL Hx Chronic Kidney Disease: No - ENDOCRINE/METABOLIC Hx Endocrine Disorders: Yes Hx Hypothyroidism: Yes - HEMATOLOGICAL/ONCOLOGICAL Hx Blood Disorders: Yes - INTEGUMENTARY Hx Dermatological Problems: No - MUSCULOSKELETAL/RHEUMATOLOGICAL Hx Arthritis: Yes Hx Back Pain: Yes Hx Falls: Yes Hx Osteoarthritis: Yes - GASTROINTESTINAL Hx Gastrointestinal Disorders: No - GENITOURINARY/GYNECOLOGICAL Hx Genitourinary Disorders: Yes - PSYCHIATRIC Hx Substance Use: No - SURGICAL HISTORY Hx Appendectomy: Yes Hx Cholecystectomy: Yes Hx Coronary Stent: Yes Hx Mastectomy: Yes - ANESTHESIA Hx Anesthesia: Yes Hx Anesthesia Reactions: No Hx Malignant Hyperthermia: No Meds Allergies/Adverse Reactions: Allergies Allergy/AdvReac Type Severity Reaction Status Date / Time No Known Allergies Allergy Verified 06/30/17 09:52 - Medications Medications: Current Medications Amiodarone HCl (Cordarone) 200 mg PO DAILY [facility] Anastrozole (Arimidex 1 Mg Tab) 1 mg PO DAILY [facility] Ascorbic Acid (Vitamin C 500 Mg Tab) 500 mg PO DAILY [facility] Aspirin (Ecotrin) 81 mg PO DAILY [facility] Atorvastatin Calcium (Lipitor) 20 mg PO HS [facility] Last Admin: 06/30/17 22:07 Dose: 20 mg Calcium/Vitamin D (Oyster Shell Calcium/Vitamin D 500 Mg-200 Iu) 1 tab PO DAILY [facility] Cholecalciferol (Vitamin D) 1,000 intlu PO DAILY [facility] Docusate Sodium (Colace) 200 mg PO DAILY [facility] Furosemide (Lasix) 40 mg IVP Q12 [facility] Last Admin: 06/30/17 22:06 Dose: 40 mg Lactulose (Enulose) 20 gm PO DAILY PRN PRN Reason: Constipation Last Admin: 06/30/17 22:08 Dose: 20 gm Levothyroxine Sodium (Synthroid) 25 mcg PO DAILY@0630 [facility] Last Admin: 07/01/17 05:47 Dose: 25 mcg Losartan Potassium (Cozaar) 25 mg PO DAILY [facility] Memantine (Namenda) 10 mg PO DAILY [facility] Metoprolol Succinate (Toprol Xl) 50 mg PO DAILY [facility] Multivitamins/Minerals (Therapeutic-M Tab) 1 tab PO DAILY [facility] Ofloxacin (Floxin 0.3% Otic Soln) 5 drop AD BID [facility] Last Admin: 06/30/17 22:16 Dose: 5 drop Tramadol HCl (Ultram) 50 mg PO Q6 PRN PRN Reason: Pain, severe (8-10) Last Admin: 07/01/17 00:36 Dose: 50 mg Vitamin E (Vitamin E 400 Units Cap) 400 intlu PO DAILY [facility] Physical Exam - Constitutional Appears: Well - Head Exam Head Exam: ATRAUMATIC, NORMAL INSPECTION, NORMOCEPHALIC - Eye Exam Eye Exam: EOMI, Normal appearance, PERRL Pupil Exam: NORMAL ACCOMODATION, PERRL - ENT Exam ENT Exam: Mucous Membranes Moist, Normal Exam - Neck Exam Neck exam: Positive for: Normal Inspection - Respiratory Exam Respiratory Exam: Clear to Auscultation Bilateral, NORMAL BREATHING PATTERN - Cardiovascular Exam Cardiovascular Exam: REGULAR RHYTHM, RRR, +S1, +S2, Systolic Murmur - GI/Abdominal Exam GI & Abdominal Exam: Normal Bowel Sounds, Soft. absent: Tenderness - Extremities Exam Extremities exam: Positive for: normal inspection - Back Exam Back exam: NORMAL INSPECTION - Neurological Exam Neurological exam: Alert, CN II-XII Intact, Normal Gait, Oriented x3, Reflexes Normal - Psychiatric Exam Psychiatric exam: Normal Affect, Normal Mood - Skin Skin Exam: Dry, Intact, Normal Color, Warm Results - Vital Signs Recent Vital Signs: Last Vital Signs Temp 98.0 F 07/01/17 05:08 Pulse 58 L 07/01/17 05:08 Resp 18 07/01/17 05:08 BP 148/72 07/01/17 05:08 Pulse Ox 95 07/01/17 05:08 - Labs Result Diagrams: 07/01/17 05:40 07/01/17 05:40 Labs: Laboratory Results - last 24 hr 06/30/17 06/30/17 06/30/17 10:40 10:40 21:48 WBC 12.1 H RBC 3.67 L Hgb 12.2 Hct 36.2 MCV 98.5 D MCH 33.1 H MCHC 33.6 RDW 15.1 H Plt Count 234 MPV 9.0 Neut % (Auto) 78.7 H Lymph % (Auto) 12.0 L [place] % (Auto) 8.1 Eos % (Auto) 0.9 Baso % (Auto) 0.3 Neut # (Auto) 9.5 H Lymph # (Auto) 1.4 [place] # (Auto) 1.0 H Eos # (Auto) 0.1 Baso # (Auto) 0.0 Sodium 141 Potassium 4.6 Chloride 105 Carbon Dioxide 24 Anion Gap 17 BUN 18 H Creatinine 1.1 Est GFR ( Amer) 58 Est GFR (Non-Af Amer) 48 Random Glucose 97 Calcium 8.9 Total Bilirubin 0.8 AST 33 ALT 31 Alkaline Phosphatase 38 D Troponin I 0.0120 0.0190 NT-Pro-B Natriuret Pep 6020 H Total Protein 6.7 Albumin 3.6 Globulin 3.1 Albumin/Globulin Ratio 1.2 Triglycerides Cholesterol LDL Cholesterol Direct HDL Cholesterol Total T3 TSH 3rd Generation 3.88 07/01/17 07/01/17 05:40 05:40 WBC 13.5 H RBC 3.84 Hgb 12.2 Hct 37.9 MCV 98.7 MCH 31.9 H MCHC 32.3 L RDW 15.0 H Plt Count 222 MPV Neut % (Auto) Lymph % (Auto) [place] % (Auto) Eos % (Auto) Baso % (Auto) Neut # (Auto) Lymph # (Auto) [place] # (Auto) Eos # (Auto) Baso # (Auto) Sodium 143 Potassium 3.9 Chloride 103 Carbon Dioxide 25 Anion Gap 19 BUN 19 H Creatinine 1.3 H Est GFR ( Amer) 48 Est GFR (Non-Af Amer) 39 Random Glucose 96 Calcium 9.0 Total Bilirubin 0.7 AST 31 ALT 35 Alkaline Phosphatase 48 Troponin I 0.0220 NT-Pro-B Natriuret Pep Total Protein 7.0 Albumin 3.7 Globulin 3.3 Albumin/Globulin Ratio 1.1 Triglycerides 177 H D Cholesterol 189 LDL Cholesterol Direct 99 HDL Cholesterol 41 Total T3 0.537 L TSH 3rd Generation 4.54 Assessment & Plan (1) Systolic and diastolic CHF, acute on chronic Status: Acute (2) CAD (coronary artery disease) Status: Chronic Priority: High (3) Cardiomyopathy Status: Chronic Priority: High (4) HLD (hyperlipidemia) Status: Chronic (5) HTN (hypertension) Status: Chronic (6) History of CVA with residual deficit Status: Chronic (7) Low cardiac output syndrome Status: Chronic Priority: High (8) Pulmonary hypertension Status: Chronic Priority: High
[2017-07-01] MEDS: Cholecalciferol 1,000 INTLU TAB PO SCH (11:15)
[2017-07-01] MEDS: Calcium-Vit D 500 mg-200 Units Tab UD PO SCH (11:15)
[2017-07-01] MEDS: Multivitamin With Minerals Tab PO SCH (11:15)
[2017-07-01] MEDS: Metoprolol Succinate 50 mg XL Tab PO SCH (11:16)
--- NOTE | 2017-07-01 13:26 | CP.PCM.HP ---
History of Present Illness - History of Present Illness History of Present Illness: CC: SOB. 81 y/o F, with multiple chronic medical condition, including Hx COPD, CHF, CAD with Cardiac Stent, PPM, Hx of 4 MIs, brought to [facility], via EMS to be evaluated for SOB with no relief from night [employer]. Pt was c/o of SOB since night [employer], increased to moderate intensity on DOA, no cough associated but COREA, SOB at rest. Worsening symptom: Intractable R sided back pain x 2 month, pain was intermittent, moderate to severe intensity 5-8:10. Aggravated factor: Changing positions, activity. Pt denied: Fever, chills, n/v/d, abdominal pain, dizziness, CP, palpitations, sweating, headache, lightheadedness, cough, trauma from fall/injury,sick contact , recent travel out of [facility]. CXR showed: Moderate pulmonary venous congestion. EKG: Atrial-paced rhythm. LV hypertrophy. Present on Admission - Present on Admission Any Indicators Present on Admission: No Review of Systems - Constitutional Constitutional: Weakness - EENT Eyes: Requires Corrective Lenses Ears: Other (negative) Nose/Mouth/Throat: Other (negative) - Cardiovascular Cardiovascular: Orthopnea - Respiratory Respiratory: Dyspnea, Dyspnea on Exertion - Gastrointestinal Gastrointestinal: Other (negative) - Genitourinary Genitourinary: Urinary Incontinence - Musculoskeletal Musculoskeletal: Arthralgias, Back Pain, Muscle Weakness - Integumentary Integumentary: Other (negative) - Neurological Neurological: Other (negative) - Psychiatric Psychiatric: Other (negative) - Endocrine Endocrine: Other (negative) - Hematologic/Lymphatic Hematologic: Other (negative) Past Patient History - Infectious Disease Hx of Infectious Diseases: None - Tetanus Immunizations Tetanus Immunization: Unknown - Past Medical History & Family History Past Medical History?: Yes Pertinent Family History: Unknown - Past Social History Smoking Status: Never Smoked Alcohol: None Drugs: Denies Home Situation {Lives}: Alone - CARDIAC Hx Cardiac Disorders: Yes Hx Congestive Heart Failure: Yes Hx Hypercholesterolemia: Yes Hx Hypertension: Yes - PULMONARY Hx Respiratory Disorders: Yes Hx Bronchitis: Yes Hx Chronic Obstructive Pulmonary Disease (COPD): Yes - NEUROLOGICAL Hx Neurological Disorder: Yes HX Cerebrovascular Accident: Yes Hx Transient Ischemic Attacks (TIA): Yes - HEENT Hx HEENT Problems: Yes Hx Cataracts: Yes - RENAL Hx Chronic Kidney Disease: No - ENDOCRINE/METABOLIC Hx Endocrine Disorders: Yes Hx Hypothyroidism: Yes - HEMATOLOGICAL/ONCOLOGICAL Hx Blood Disorders: Yes - INTEGUMENTARY Hx Dermatological Problems: No - MUSCULOSKELETAL/RHEUMATOLOGICAL Hx Arthritis: Yes Hx Back Pain: Yes Hx Falls: Yes Hx Osteoarthritis: Yes - GASTROINTESTINAL Hx Gastrointestinal Disorders: No - GENITOURINARY/GYNECOLOGICAL Hx Genitourinary Disorders: Yes - PSYCHIATRIC Hx Substance Use: No - SURGICAL HISTORY Hx Appendectomy: Yes Hx Cholecystectomy: Yes Hx Coronary Stent: Yes Hx Mastectomy: Yes - ANESTHESIA Hx Anesthesia: Yes Hx Anesthesia Reactions: No Hx Malignant Hyperthermia: No Meds Home Medications: Home Medication List Medication Instructions Recorded Confirmed Type Docusate [Colace] 200 mg PO DAILY cap 07/02/17 Rx Enoxaparin [Lovenox] 30 mg SC DAILY syr 07/02/17 Rx Lactulose [Enulose] 20 gm PO DAILY PRN udc 07/02/17 Rx Sildenafil [Revatio] 20 mg PO TID tab 07/02/17 Rx traMADol [Ultram] 50 mg PO Q6 PRN #20 tab 07/02/17 Rx Furosemide [Lasix] 40 mg PO DAILY tab 07/03/17 Rx Lidocaine 5% [Lidoderm] 1 ea TD DAILY patch 07/03/17 Rx Allergies/Adverse Reactions: Allergies Allergy/AdvReac Type Severity Reaction Status Date / Time No Known Allergies Allergy Verified 07/03/17 17:08 Physical Exam - Constitutional Appears: No Acute Distress, Chronically Ill - Head Exam Head Exam: NORMAL INSPECTION - Eye Exam Eye Exam: PERRL - ENT Exam ENT Exam: Normal Exam - Neck Exam Neck exam: Positive for: Normal Inspection - Respiratory Exam Respiratory Exam: Decreased Breath Sounds (b/l) - Cardiovascular Exam Cardiovascular Exam: REGULAR RHYTHM, Systolic Murmur - GI/Abdominal Exam GI & Abdominal Exam: Normal Bowel Sounds, Soft - Extremities Exam Extremities exam: Positive for: normal inspection - Back Exam Back exam: tenderness - Neurological Exam Neurological exam: Alert, Oriented x3 Additional comments: Obeys commands. Generalized weakness. No focal motor/sensory deficit. - Psychiatric Exam Psychiatric exam: Normal Mood - Skin Skin Exam: Normal Color, Warm Results - Vital Signs Recent Vital Signs: Last Vital Signs Temp 97.4 F L 07/01/17 11:59 Pulse 64 07/01/17 11:59 Resp 18 07/01/17 11:59 BP 123/62 07/01/17 11:59 Pulse Ox 99 07/01/17 11:59 reviewed J.P. - Labs Result Diagrams: 07/02/17 05:15 07/02/17 05:15 Labs: Laboratory Results - last 24 hr 06/30/17 07/01/17 07/01/17 21:48 05:40 05:40 WBC 13.5 H RBC 3.84 Hgb 12.2 Hct 37.9 MCV 98.7 MCH 31.9 H MCHC 32.3 L RDW 15.0 H Plt Count 222 Sodium 143 Potassium 3.9 Chloride 103 Carbon Dioxide 25 Anion Gap 19 BUN 19 H Creatinine 1.3 H Est GFR ( Amer) 48 Est GFR (Non-Af Amer) 39 Random Glucose 96 Calcium 9.0 Total Bilirubin 0.7 AST 31 ALT 35 Alkaline Phosphatase 48 Troponin I 0.0190 0.0220 Total Protein 7.0 Albumin 3.7 Globulin 3.3 Albumin/Globulin Ratio 1.1 Triglycerides 177 H D Cholesterol 189 LDL Cholesterol Direct 99 HDL Cholesterol 41 25-OH Vitamin D Total Total T3 0.537 L TSH 3rd Generation 4.54 07/01/17 07/01/17 05:40 12:43 WBC RBC Hgb Hct MCV MCH MCHC RDW Plt Count Sodium Potassium Chloride Carbon Dioxide Anion Gap BUN Creatinine Est GFR ( Amer) Est GFR (Non-Af Amer) Random Glucose Calcium Total Bilirubin AST ALT Alkaline Phosphatase Troponin I 0.0140 Total Protein Albumin Globulin Albumin/Globulin Ratio Triglycerides Cholesterol LDL Cholesterol Direct HDL Cholesterol 25-OH Vitamin D Total 44.7 Total T3 TSH 3rd Generation reviewed J.P. - EKG Data EKG comments: reviewed J.P. - Imaging and Cardiology Chest x-ray Status: Report reviewed by me (Marleen) Assessment & Plan (1) Systolic and diastolic CHF, acute on chronic Status: Acute Priority: High (2) Cardiomyopathy Status: Chronic Priority: High (3) Pulmonary hypertension Status: Chronic Priority: Medium (4) COPD (chronic obstructive pulmonary disease) Status: Chronic Priority: Medium (5) HTN (hypertension) Status: Chronic Priority: Medium (6) Hypothyroidism Status: Chronic Priority: Medium (7) History of CVA with residual deficit Status: Chronic Priority: Medium (8) Low back pain Status: Chronic Priority: High - Assessment and Plan (Free Text) Plan: Continue NC 2 L/M, F/U U C-S, continue Amiodarone, Cozaar, Metropolol, Lasix, Ecotrin, Lipitor, Tramadol and rest of Tx. OT, PT elvira, Cardiology consult appreciated. - Date & Time Date: 07/01/17 Time: 12:00
--- NOTE | 2017-07-01 16:19 | CT ---
PROCEDURE: CT Lumbar Spine without contrast HISTORY: radiculopathy, low back pain. COMPARISON: 11/18/2016 TECHNIQUE: Axial computed tomography images were obtained of the lumbar spine without the use of intravenous contrast. Coronal and sagittal reformatted images were created and reviewed. Radiation dose: Total exam DLP = 774.83 mGy-cm. This CT exam was performed using one or more of the following dose reduction techniques: Automated exposure control, adjustment of the mA and/or kV according to patient size, and/or use of iterative reconstruction technique. FINDINGS: VERTEBRAE: No acute fracture. Stable vertebral body heights and alignment. DISCS/SPINAL CANAL/NEURAL FORAMINA: L1-2: Unremarkable. L2-3: Broad-based bulging annulus without focal disc herniation. No evidence of canal stenosis. Hypertrophic changes impress upon the exiting neural foramen right greater than left. L3-4: Virtual absence of normal disc space. Partially calcified broad-based bulging annulus. Foraminal narrowing bilaterally. L4-5: Mild bulging annulus fibrosus. Facet arthropathy. No evidence of canal stenosis. Annular bulge impresses upon the neural foramen bilaterally left greater than right. L5-S1: Unremarkable. PARASPINAL SOFT TISSUES: Unremarkable. OTHER FINDINGS: None. IMPRESSION: No acute findings or significant interval changes. Multilevel degenerative change.
--- NOTE | 2017-07-01 16:50 | CARD ---
APPROVED REPORT EXAM: Two-dimensional and M-mode echocardiogram with Doppler and color Doppler. Other Information Quality : AverageRhythm : Pacemaker Technically limited study due to limited window INDICATION Congestive Heart Failure Surgery/Intervention ICD/Pacemaker: Date: 2016 2D DIMENSIONS IVSd1.02 (0.7-1.1cm)LVDd4.92 (3.9-5.9cm) PWd1.13 (0.7-1.1cm)IVSs1.28 (0.8-1.2cm) LVDs5.35 (2.5-4.0cm)FS (%) 8.7 % PWs1.25 (0.8-1.2cm) M-Mode DIMENSIONS Left Atrium (MM)4.74 (2.5-4.0cm)IVSd0.94 (0.7-1.1cm) Aortic Root3.06 (2.2-3.7cm)LVDd7.32 (4.0-5.6cm) Aortic Cusp Exc.1.76 (1.5-2.0cm)PWd0.82 (0.7-1.1cm) IVSs1.47 cmFS (%) 20 % LVDs5.85 (2.0-3.8cm)PWs1.41 cm Aortic Valve AoV Peak Zrnipmcs299.0cm/sAoV VTI23.9cmAO Peak GR.4mmHg LVOT Peak Uvytqnfy33.2cm/sLVOT VTI10.00cmAO Mean GR.3mmHg Mitral Valve MV E Rvznfpjc37.5cm/sMV DECEL [id number] A Vtwrjgwp93.3cm/s MV EIF67wcJ/A ratio2.3MVA (PHT)5.09cm2 TDI Lateral E' Peak V5.87cm/sMedial E' Peak V5.46cm/sE/Lateral E'11.8 E/Medial E'12.7 Tricuspid Valve TR Peak Vdepnohy011pg/sRAP [id number] Peak Gr.4mmHg [id number] LEFT VENTRICLE The left ventricle is normal size. There is normal left ventricular wall thickness. The systolic function is moderately impaired. The Ejection Fraction is 25-30%. There is global hypokinesis of the left ventricle. Transmitral Doppler flow pattern is Grade I-abnormal relaxation pattern. RIGHT VENTRICLE The right ventricle is normal size. The right ventricular systolic function is normal. ATRIA The left atrium size is normal. The right atrium size is normal. AORTIC VALVE The aortic valve is moderately thickened but opens well. No aortic regurgitation is present. There is no aortic valvular stenosis. MITRAL VALVE Mitral annular calcification is mild. There is no mitral valve stenosis. Mitral regurgitation is moderate. TRICUSPID VALVE The tricuspid valve is normal in structure. There is no tricuspid valve regurgitation noted. PULMONIC VALVE The pulmonary valve is normal in structure. There is no pulmonic valvular regurgitation. GREAT VESSELS The aortic root is normal in size. The IVC is normal in size and collapses >50% with inspiration. PERICARDIAL EFFUSION The pericardium appears normal. <Conclusion> The left ventricle is normal size. The systolic function is moderately impaired. The Ejection Fraction is 25-30%. Mitral regurgitation is moderate.
[2017-07-01] MEDS: OFLOXACIN 0.3% AD SCH ×2 (17:24→19:01)
[2017-07-01 23:44] LABS: SQUAMOUS EPITHIAL < 1 /hpf (0-5); URINE BILIRUBIN NEGATIVE (NEGATIVE); URINE BLOOD NEGATIVE (NEGATIVE); URINE CLARITY SLIGHTY-CLOUDY (Clear); URINE COLOR YELLOW (YELLOW); URINE GLUCOSE (UA) NEG (Normal); URINE LEUKOCYTE ESTERASE NEG Leu/uL (Negative); URINE PROTEIN NEGATIVE (NEGATIVE); URINE UROBILINOGEN 0.2-1.0 mg/dL (0.2-1.0)
[2017-07-02 05:52] LABS: HEMOGLOBIN 12.4 g/dL (12.0-16.0); MEAN CELL VOLUME 98.5 fl (81.0-99.0); MEAN CORPUSCULAR HEMOGLOBIN 32.9 pg (27.0-31.0); MEAN CORPUSCULAR HGB CONC 33.4 g/dL (33.0-37.0); RBC 3.77 Mil/uL (3.80-5.20); RED CELL DISTRIBUTION WIDTH 15.2 % (11.5-14.5); WHITE BLOOD COUNT 10.9 K/uL (4.8-10.8)
[2017-07-02] MEDS: Levothyroxine 25 MCG TAB PO SCH (05:55)
[2017-07-02 06:02] LABS: CALCIUM 8.7 mg/dL (8.4-10.2)
--- NOTE | 2017-07-02 09:15 | PQF GENQUE ---
Dr. Singer , Please clarify type of cardiomyopathy: if known Alcoholic Congestive Constrictive Dilated Due to drugs and/or external agent Hypertensive Hypertrophic Idiopathic Ischemic Obstructive hypertrophic/IHSS Takotsubo Other type not specified above (please specify) Clinically unable to determine Unknown Please indicate if there are any additional associated cardiac conditions related to cardiomyopathy. H and P: Assessment Plan : (1) Systolic and diastolic CHF, acute on chronic Status: Acute Priority: High (2) Cardiomyopathy Status: Chronic Priority: High (3) Pulmonary hypertension Status: Chronic Priority: Medium (4) COPD (chronic obstructive pulmonary disease) Status: Chronic Priority: Medium (5) HTN (hypertension) Status: Chronic Priority: Medium (6) Hypothyroidism Status: Chronic Priority: Medium (7) History of CVA with residual deficit Status: Chronic Priority: Medium This form is a permanent part of the medical record Clarification of your documentation is requested to better reflect the severity of illness and intensity of treatment of your patient. Indicators present [] Specify: [] [] Specify: [] [] Specify: [] [] Specify: [] Location in the medical record that reflects the above clinical findings: [] Treatment Provided: [] PHYSICIAN'S RESPONSE Based on your medical judgment of the clinical indicators outlined above please clarify the following: [] Practitioner response [] If unable to determine, please check the box, sign and date. Present On Admission (POA) Indicator: [] Present at the time of admission [] Not present at the time of admission [] Clinically Undetermined In responding to this query, please exercise your independent professional judgment. The fact that a question is asked does not imply that any particular answer is desired or expected. Thank you for your clarification on this documentation. If you have any questions please call. * Thank you, Isa Davis RN ext. #[phone] MTDD
--- NOTE | 2017-07-02 09:29 | PQF GENQUE ---
, Please specify the residual deficit related to the CVA? OR: Other explanation of clinical finding H and P: History of CVA with residual deficit Status: Chronic Priority: Medium Nurses Note Assessment: PT Screening: Functional Assessment Screening: require an assistive device when ambulating: Yes Have weakness/paraparesis to their lower extremities? :Yes Have weakness to the upper extremities?: Yes PT and OT evaluation ordered This form is a permanent part of the medical record Clarification of your documentation is requested to better reflect the severity of illness and intensity of treatment of your patient. Indicators present [] Specify: [] [] Specify: [] [] Specify: [] [] Specify: [] Location in the medical record that reflects the above clinical findings: [] Treatment Provided: [] PHYSICIAN'S RESPONSE Based on your medical judgment of the clinical indicators outlined above please clarify the following: [] Practitioner response [] If unable to determine, please check the box, sign and date. Present On Admission (POA) Indicator: [] Present at the time of admission [] Not present at the time of admission [] Clinically Undetermined In responding to this query, please exercise your independent professional judgment. The fact that a question is asked does not imply that any particular answer is desired or expected. Thank you for your clarification on this documentation. If you have any questions please call. * Thank you, Isa Davis RN ext. #[phone] MTDD
[2017-07-02] MEDS: Calcium-Vit D 500 mg-200 Units Tab UD PO SCH (09:35)
[2017-07-02] MEDS: Sildenafil 20 MG TAB PO SCH ×3 (09:36→17:21)
[2017-07-02] MEDS: Multivitamin With Minerals Tab PO SCH (09:36)
[2017-07-02] MEDS: Metoprolol Succinate 50 mg XL Tab PO SCH (09:36)
[2017-07-02] MEDS: Enoxaparin 30 mg Syringe SC SCH (09:37)
[2017-07-02] MEDS: Cholecalciferol 1,000 INTLU TAB PO SCH (09:37)
[2017-07-02] MEDS: OFLOXACIN 0.3% AD SCH ×2 (10:05→17:21)
--- NOTE | 2017-07-02 11:48 | CP.PCM.PCO ---
Assessment & Plan - Assessment and Plan (Free Text) Assessment: pt. doing well plan for TCU tomorrow for Rehab and IV Lasix/ PT Medication reconciliation completed cont. to check Labs daily to monitor renal fx Dr. Singer and will f/u pt . in TCU
--- NOTE | 2017-07-02 13:50 | CP.PCM.PN ---
Subjective - Date & Time of Evaluation Date of Evaluation: 07/02/17 Time of Evaluation: 14:10 - Subjective Subjective: F/U CHF Pt with no CP, no SOB, c/o of low back pain. Objective - Vital Signs/Intake and Output Vital Signs (last 24 hours): Temp Pulse Resp BP Pulse Ox 98.1 F 60 20 128/70 94 L 07/02/17 12:22 07/02/17 12:22 07/02/17 12:22 07/02/17 12:22 07/02/17 12:22 - Medications Medications: Current Medications Amiodarone HCl (Cordarone) 200 mg PO DAILY [facility] Last Admin: 07/02/17 09:37 Dose: 200 mg Anastrozole (Arimidex 1 Mg Tab) 1 mg PO DAILY [facility] Last Admin: 07/02/17 09:38 Dose: 1 mg Ascorbic Acid (Vitamin C 500 Mg Tab) 500 mg PO DAILY [facility] Last Admin: 07/02/17 09:37 Dose: 500 mg Aspirin (Ecotrin) 81 mg PO DAILY [facility] Last Admin: 07/02/17 09:36 Dose: 81 mg Atorvastatin Calcium (Lipitor) 20 mg PO HS [facility] Last Admin: 07/01/17 22:00 Dose: 20 mg Calcium/Vitamin D (Oyster Shell Calcium/Vitamin D 500 Mg-200 Iu) 1 tab PO DAILY [facility] Last Admin: 07/02/17 09:35 Dose: 1 tab Cholecalciferol (Vitamin D) 1,000 intlu PO DAILY [facility] Last Admin: 07/02/17 09:37 Dose: 1,000 intlu Docusate Sodium (Colace) 200 mg PO DAILY [facility] Last Admin: 07/02/17 09:36 Dose: 200 mg Enoxaparin Sodium (Lovenox) 30 mg SC DAILY [facility] PRN Reason: Protocol Last Admin: 07/02/17 09:37 Dose: 30 mg Furosemide (Lasix) 40 mg IVP Q12 [facility] Last Admin: 07/02/17 09:37 Dose: 40 mg Lactulose (Enulose) 20 gm PO DAILY PRN PRN Reason: Constipation Last Admin: 06/30/17 22:08 Dose: 20 gm Levothyroxine Sodium (Synthroid) 25 mcg PO DAILY@0630 [facility] Last Admin: 07/02/17 05:55 Dose: 25 mcg Lidocaine (Lidoderm) 1 ea TD DAILY [facility] Losartan Potassium (Cozaar) 25 mg PO DAILY [facility] Last Admin: 07/02/17 09:36 Dose: 25 mg Memantine (Namenda) 10 mg PO DAILY [facility] Last Admin: 07/02/17 09:36 Dose: 10 mg Metoprolol Succinate (Toprol Xl) 50 mg PO DAILY [facility] Last Admin: 07/02/17 09:36 Dose: 50 mg Multivitamins/Minerals (Therapeutic-M Tab) 1 tab PO DAILY [facility] Last Admin: 07/02/17 09:36 Dose: 1 tab Ofloxacin (Floxin 0.3% Otic Soln) 5 drop AD BID [facility] Last Admin: 07/02/17 10:05 Dose: 5 drop Sildenafil Citrate (Revatio) 20 mg PO TID [facility] Last Admin: 07/02/17 13:23 Dose: 20 mg Tramadol HCl (Ultram) 50 mg PO Q6 PRN PRN Reason: Pain, severe (8-10) Last Admin: 07/02/17 10:05 Dose: 50 mg Vitamin E (Vitamin E 400 Units Cap) 400 intlu PO DAILY [facility] Last Admin: 07/02/17 09:36 Dose: 400 intlu - Labs Labs: 07/02/17 05:15 07/02/17 05:15 - Constitutional Appears: No Acute Distress, Chronically Ill - Head Exam Head Exam: NORMAL INSPECTION - Eye Exam Eye Exam: PERRL - ENT Exam ENT Exam: Normal Exam - Neck Exam Neck Exam: Normal Inspection - Respiratory Exam Respiratory Exam: Decreased Breath Sounds (b/l) - Cardiovascular Exam Cardiovascular Exam: REGULAR RHYTHM, Murmur (systolic) - GI/Abdominal Exam GI & Abdominal Exam: Soft, Normal Bowel Sounds - Back Exam Back Exam: tenderness - Neurological Exam Neurological Exam: Alert, Oriented x3 Additional comments: Generalized weakness. No focal motor sensory deficit. - Psychiatric Exam Psychiatric exam: Normal Mood - Skin Skin Exam: Normal Color, Warm Assessment and Plan (1) Systolic and diastolic CHF, acute on chronic Status: Acute (2) Cardiomyopathy Status: Chronic (3) Pulmonary hypertension Status: Chronic (4) COPD (chronic obstructive pulmonary disease) Status: Chronic (5) HTN (hypertension) Status: Chronic (6) Hypothyroidism Status: Chronic (7) History of CVA with residual deficit Status: Chronic - Assessment and Plan (Free Text) Plan: Pt evaluated by Physical Therapist, founded with decreased functional mobility. Recommendation, transfer to TCU
[2017-07-02] MEDS: Lidocaine 5% Patch TD SCH (17:20)
[2017-07-03] MEDS: Levothyroxine 25 MCG TAB PO SCH (06:36)
[2017-07-03] MEDS: Lidocaine 5% Patch TD SCH (08:06)
[2017-07-03] MEDS: Enoxaparin 30 mg Syringe SC SCH (08:07)
[2017-07-03] MEDS: Sildenafil 20 MG TAB PO SCH ×3 (08:07→16:59)
[2017-07-03] MEDS: Multivitamin With Minerals Tab PO SCH (08:08)
[2017-07-03] MEDS: Calcium-Vit D 500 mg-200 Units Tab UD PO SCH (08:08)
[2017-07-03] MEDS: Metoprolol Succinate 50 mg XL Tab PO SCH (08:14)
[2017-07-03] MEDS: Cholecalciferol 1,000 INTLU TAB PO SCH (08:14)
[2017-07-03] MEDS: OFLOXACIN 0.3% AD SCH ×2 (08:27→16:59)
[2017-07-03 08:34] VITALS: RESP 18
[2017-07-03] MEDS ORDERED: Lidocaine 5% Patch TD SCH (09:00)
[2017-07-03 12:52] VITALS: PULSE 63
[2017-07-03 16:05] VITALS: BP 116/56; TEMP 98.4
--- NOTE | 2017-07-03 19:04 | CP.PCM.DIS ---
Provider - Provider Date of Admission: 06/30/17 15:50 Attending physician: Aleks Singer MD Consults: Cardiology. Time Spent in preparation of Discharge (in minutes): 35 Diagnosis - Discharge Diagnosis (1) Systolic and diastolic CHF, acute on chronic Status: Acute Priority: High (2) Cardiomyopathy Status: Chronic Priority: Medium (3) Pulmonary hypertension Status: Chronic Priority: Medium (4) COPD (chronic obstructive pulmonary disease) Status: Chronic Priority: Medium (5) HTN (hypertension) Status: Chronic Priority: Medium (6) Hypothyroidism Status: Chronic Priority: Medium (7) History of CVA with residual deficit Status: Chronic Priority: Medium Hospital Course - Lab Results Lab Results: Most Recent Lab Values WBC 10.9 K/uL (4.8-10.8) H 07/02/17 05:15 RBC 3.77 Mil/uL (3.80-5.20) L 07/02/17 05:15 Hgb 12.4 g/dL (12.0-16.0) 07/02/17 05:15 Hct 37.2 % (34.0-47.0) 07/02/17 05:15 MCV 98.5 fl (81.0-99.0) 07/02/17 05:15 MCH 32.9 pg (27.0-31.0) H 07/02/17 05:15 MCHC 33.4 g/dL (33.0-37.0) 07/02/17 05:15 RDW 15.2 % (11.5-14.5) H 07/02/17 05:15 Plt Count 258 K/uL (130-400) 07/02/17 05:15 MPV 9.0 fl (7.2-11.7) 06/30/17 10:40 Neut % (Auto) 78.7 % (50.0-75.0) H 06/30/17 10:40 Lymph % (Auto) 12.0 % (20.0-40.0) L 06/30/17 10:40 [place] % (Auto) 8.1 % (0.0-10.0) 06/30/17 10:40 Eos % (Auto) 0.9 % (0.0-4.0) 06/30/17 10:40 Baso % (Auto) 0.3 % (0.0-2.0) 06/30/17 10:40 Neut # (Auto) 9.5 K/uL (1.8-7.0) H 06/30/17 10:40 Lymph # (Auto) 1.4 K/uL (1.0-4.3) 06/30/17 10:40 [place] # (Auto) 1.0 K/uL (0.0-0.8) H 06/30/17 10:40 Eos # (Auto) 0.1 K/uL (0.0-0.7) 06/30/17 10:40 Baso # (Auto) 0.0 K/uL (0.0-0.2) 06/30/17 10:40 Sodium 141 mmol/l (132-148) 07/02/17 05:15 Potassium 4.3 MMOL/L (3.6-5.0) 07/02/17 05:15 Chloride 100 mmol/L (98-107) 07/02/17 05:15 Carbon Dioxide 28 mmol/L (22-30) 07/02/17 05:15 Anion Gap 17 (10-20) 07/02/17 05:15 BUN 22 mg/dl (7-17) H 07/02/17 05:15 Creatinine 1.3 mg/dl (0.7-1.2) H 07/02/17 05:15 Est GFR ( Amer) 48 07/02/17 05:15 Est GFR (Non-Af Amer) 39 07/02/17 05:15 Random Glucose 91 mg/dL (65-105) 07/02/17 05:15 Calcium 8.7 mg/dL (8.4-10.2) 07/02/17 05:15 Total Bilirubin 0.7 mg/dl (0.2-1.3) 07/01/17 05:40 AST 31 U/L (14-36) 07/01/17 05:40 ALT 35 U/L (9-52) 07/01/17 05:40 Alkaline Phosphatase 48 U/L (38-126) 07/01/17 05:40 Troponin I 0.0140 ng/mL (0.00-0.120) 07/01/17 12:43 NT-Pro-B Natriuret Pep 3360 pg/ml (0-900) H 07/02/17 05:15 Total Protein 7.0 G/DL (6.3-8.2) 07/01/17 05:40 Albumin 3.7 g/dL (3.5-5.0) 07/01/17 05:40 Globulin 3.3 gm/dL (2.2-3.9) 07/01/17 05:40 Albumin/Globulin Ratio 1.1 (1.0-2.1) 07/01/17 05:40 Triglycerides 177 mg/DL (0-149) H D 07/01/17 05:40 Cholesterol 189 mg/dL (0-199) 07/01/17 05:40 LDL Cholesterol Direct 99 mg/dL (0-129) 07/01/17 05:40 HDL Cholesterol 41 MG/DL (30-70) 07/01/17 05:40 25-OH Vitamin D Total 44.7 NG/ML (30.0-100.0) 07/01/17 05:40 Total T3 0.537 nmol/L (1.49-2.60) L 07/01/17 05:40 TSH 3rd Generation 4.54 mIU/ML (0.46-4.68) 07/01/17 05:40 Urine Color Yellow (YELLOW) 07/01/17 23:33 Urine Clarity Slighty-cloudy (Clear) 07/01/17 23:33 Urine pH 5.0 (5.0-8.0) 07/01/17 23:33 Ur Specific [place] 1.015 (1.003-1.030) 07/01/17 23:33 Urine Protein Negative mg/dL (NEGATIVE) 07/01/17 23:33 Urine Glucose (UA) Neg mg/dL (Normal) 07/01/17 23:33 Urine Ketones Negative mg/dL (NEGATIVE) 07/01/17 23:33 Urine Blood Negative (NEGATIVE) 07/01/17 23:33 Urine Nitrate Negative (NEGATIVE) 07/01/17 23:33 Urine Bilirubin Negative (NEGATIVE) 07/01/17 23:33 Urine Urobilinogen 0.2-1.0 mg/dL (0.2-1.0) 07/01/17 23:33 Ur Leukocyte Esterase Neg Kj/uL (Negative) 07/01/17 23:33 Urine RBC (Auto) 2 /hpf (0-3) 07/01/17 23:33 Urine Microscopic WBC 3 /hpf (0-5) 07/01/17 23:33 Ur Squamous Epith Cells < 1 /hpf (0-5) 07/01/17 23:33 Hyaline Casts 3-5 /hpf (0-2) H 07/01/17 23:33 - Date & Time of H&P Date of H&P: 07/01/17 Time of H&P: 12:00 Discharge Exam - Head Exam Head Exam: NORMAL INSPECTION - Eye Exam Eye Exam: PERRL - ENT Exam ENT Exam: Normal Exam - Neck Exam Neck exam: Normal Inspection - Respiratory Exam Respiratory Exam: Decreased Breath Sounds (b/l) - Cardiovascular Exam Cardiovascular Exam: REGULAR RHYTHM, Systolic Murmur - GI/Abdominal Exam GI & Abdominal Exam: Normal Bowel Sounds, Soft - Back Exam Back exam: tenderness - Neurological Exam Neurological exam: Alert, Oriented x3 Additional comments: Generalized weakness, no focal motor sensory deficit. - Psychiatric Exam Psychiatric exam: Normal Mood - Skin Skin Exam: Normal Color, Warm Discharge Plan - Follow Up Plan Condition: STABLE Disposition: TRANSF TO SNF Referrals: Filiberto Gomez MD [Family Provider] -
--- NOTE | 2017-07-05 11:25 | PQF GENQUE ---
, Is there an associated diagnosis to go along with the urine culture: verified : final: organism: enterococcus faecium between 50,000-100,000 CFU/ML? OR: Disagree OR:Other explanation of clinical finding 07/01: U/A: slightly cloudy-RBC,-WBC,-Squamous Epith Cells <1- 3-5 Hyaline Casts This form is a permanent part of the medical record Clarification of your documentation is requested to better reflect the severity of illness and intensity of treatment of your patient. Indicators present [] Specify: [] [] Specify: [] [] Specify: [] [] Specify: [] Location in the medical record that reflects the above clinical findings: [] Treatment Provided: [] PHYSICIAN'S RESPONSE Based on your medical judgment of the clinical indicators outlined above please clarify the following: [] Practitioner response [] If unable to determine, please check the box, sign and date. Present On Admission (POA) Indicator: [] Present at the time of admission [] Not present at the time of admission [] Clinically Undetermined In responding to this query, please exercise your independent professional judgment. The fact that a question is asked does not imply that any particular answer is desired or expected. Thank you for your clarification on this documentation. If you have any questions please call. * Thank you, Isa Davis RN ext. #[phone] MTDD
[2017-07-11 22:19] VITALS: O2SAT 95
== END 2017-07-03 17:00 | DRG 293 ==
LOC: H.ER 09:28 → H.ERHOLD 15:50 → H.TEL 18:12
PROVIDERS: ADMIT Internal Medicine Pulmonary Disease; ATTEND Internal Medicine Pulmonary Disease
DX: I11.0 Hypertensive heart disease with heart failure (principal); I50.43 Acute on chronic combined systolic (congestive) and diastolic (congestive) heart failure; I27.20 Pulmonary hypertension, unspecified; E03.9 Hypothyroidism, unspecified; E78.00 Pure hypercholesterolemia, unspecified; I25.10 Atherosclerotic heart disease of native coronary artery without angina pectoris; I25.2 Old myocardial infarction; I69.30 Unspecified sequelae of cerebral infarction; J44.9 Chronic obstructive pulmonary disease, unspecified; M81.0 Age-related osteoporosis without current pathological fracture; R26.89 Other abnormalities of gait and mobility; R53.1 Weakness; M54.5 Low back pain; Z79.811 Long term (current) use of aromatase inhibitors; Z79.82 Long term (current) use of aspirin; Z90.49 Acquired absence of other specified parts of digestive tract; Z95.5 Presence of coronary angioplasty implant and graft; H26.9 Unspecified cataract; Z87.01 Personal history of pneumonia (recurrent); M19.90 Unspecified osteoarthritis, unspecified site; Z79.899 Other long term (current) drug therapy

== ENCOUNTER 2017-07-03 16:36 | Inpatient (IN) | payer OTHER, MEDICARE ==
[2017-07-03 17:11] VITALS: BMI 28.1
[2017-07-04] MEDS: Levothyroxine 25 MCG TAB PO SCH (06:32)
[2017-07-04] MEDS: OFLOXACIN 0.3% AD SCH ×2 (08:51→16:08)
[2017-07-04] MEDS: Enoxaparin 30 mg Syringe SC SCH (08:52)
[2017-07-04] MEDS: Calcium-Vit D 500 mg-200 Units Tab UD PO SCH (08:53)
[2017-07-04] MEDS: Multivitamin With Minerals Tab PO SCH (08:53)
[2017-07-04] MEDS: Cholecalciferol 1,000 INTLU TAB PO SCH (08:53)
[2017-07-04] MEDS: Sildenafil 20 MG TAB PO SCH ×3 (08:54→16:08)
[2017-07-04] MEDS: Metoprolol Succinate 50 mg XL Tab PO SCH (08:54)
[2017-07-04] MEDS: Lidocaine 5% Patch TD SCH (08:55)
--- NOTE | 2017-07-04 15:26 | CP.PCM.HP ---
History of Present Illness - History of Present Illness History of Present Illness: 81 y/o F, with multiple medical conditions, with previous admission to [facility], Telemetry floor on 06/30/17 for main Dx of acute CHF and intractable back pain x 2 months [employer], also Tx for others chronic condition. On 07/03/17, Pt was admitted to TCU unit, after evaluation from Physical Therapist while in the facility, recommending to be transferred to TCU after stable for rehabilitation of decreased functional mobility 2nd to low back pain. Present on Admission - Present on Admission Any Indicators Present on Admission: No Review of Systems - Constitutional Constitutional: Weakness - EENT Eyes: Requires Corrective Lenses Ears: Other (negative) Nose/Mouth/Throat: Other (negative) - Cardiovascular Cardiovascular: Other (negative) - Respiratory Respiratory: Other (negative) - Gastrointestinal Gastrointestinal: Other (negative) - Genitourinary Genitourinary: Urinary Incontinence - Musculoskeletal Musculoskeletal: Arthralgias, Back Pain - Integumentary Integumentary: Other (negative) - Neurological Neurological: Other (forgetful at times.) - Psychiatric Psychiatric: Other (negative) - Endocrine Endocrine: Other (negative) - Hematologic/Lymphatic Hematologic: Other (negative) Past Patient History - Infectious Disease Hx of Infectious Diseases: None - Tetanus Immunizations Tetanus Immunization: Unknown - Past Medical History & Family History Past Medical History?: Yes Pertinent Family History: Unknown - Past Social History Smoking Status: Never Smoked Alcohol: None Drugs: Denies Home Situation {Lives}: Alone - CARDIAC Hx Cardiac Disorders: Yes Hx Congestive Heart Failure: Yes Hx Hypercholesterolemia: Yes Hx Hypertension: Yes - PULMONARY Hx Respiratory Disorders: Yes Hx Bronchitis: Yes Hx Chronic Obstructive Pulmonary Disease (COPD): Yes - NEUROLOGICAL Hx Neurological Disorder: Yes HX Cerebrovascular Accident: Yes Hx Transient Ischemic Attacks (TIA): Yes - HEENT Hx HEENT Problems: Yes Hx Cataracts: Yes - RENAL Hx Chronic Kidney Disease: No - ENDOCRINE/METABOLIC Hx Endocrine Disorders: Yes Hx Hypothyroidism: Yes - HEMATOLOGICAL/ONCOLOGICAL Hx Blood Disorders: Yes - INTEGUMENTARY Hx Dermatological Problems: No - MUSCULOSKELETAL/RHEUMATOLOGICAL Hx Arthritis: Yes Hx Back Pain: Yes Hx Falls: Yes Hx Osteoarthritis: Yes - GASTROINTESTINAL Hx Gastrointestinal Disorders: No - GENITOURINARY/GYNECOLOGICAL Hx Genitourinary Disorders: Yes - PSYCHIATRIC Hx Substance Use: No - SURGICAL HISTORY Hx Appendectomy: Yes Hx Cholecystectomy: Yes Hx Coronary Stent: Yes Hx Mastectomy: Yes - ANESTHESIA Hx Anesthesia: Yes Hx Anesthesia Reactions: No Hx Malignant Hyperthermia: No Meds Allergies/Adverse Reactions: Allergies Allergy/AdvReac Type Severity Reaction Status Date / Time No Known Allergies Allergy Verified 07/03/17 17:08 Physical Exam - Constitutional Appears: No Acute Distress, Chronically Ill - Head Exam Head Exam: NORMAL INSPECTION - Eye Exam Eye Exam: PERRL - ENT Exam ENT Exam: Normal Exam - Neck Exam Neck exam: Positive for: Normal Inspection - Respiratory Exam Respiratory Exam: Decreased Breath Sounds (b/l) - Cardiovascular Exam Cardiovascular Exam: REGULAR RHYTHM, Systolic Murmur - GI/Abdominal Exam GI & Abdominal Exam: Normal Bowel Sounds, Soft - Extremities Exam Additional comments: 1+ pitting edema L/E - Back Exam Back exam: tenderness - Neurological Exam Neurological exam: Alert, Oriented x3 Additional comments: Forgetful at times, generalized weakness, no focal motor/sensory deficit. - Psychiatric Exam Psychiatric exam: Normal Mood - Skin Skin Exam: Normal Color, Warm Results - Vital Signs Recent Vital Signs: Last Vital Signs Temp 98.1 F 07/04/17 08:00 Pulse 60 07/04/17 08:54 Resp 20 07/04/17 08:00 BP 124/56 L 07/04/17 08:55 Pulse Ox 98 07/04/17 08:00 reviewed J.P. - Labs Labs: reviewed J.P. Assessment & Plan (1) Low back pain Status: Chronic Priority: High (2) General weakness Status: Acute Priority: High (3) CHF (congestive heart failure) Status: Chronic Priority: High (4) COPD (chronic obstructive pulmonary disease) Status: Chronic Priority: Medium (5) Cardiomyopathy Status: Chronic Priority: Medium (6) HTN (hypertension) Status: Chronic Priority: Medium (7) Hypothyroidism Status: Chronic Priority: Medium (8) Pulmonary hypertension Status: Chronic Priority: Medium (9) MRSA nasal colonization Status: Acute - Assessment and Plan (Free Text) Plan: Continue NC 2 L/M, continue Tylenol w/codeine, Toradol, Toprol, Revatio, Namenda , Synthroid , Bactroban and rest of Tx, PT,OT eval. - Date & Time Date: 07/04/17 Time: 10:30
[2017-07-04] MEDS: Acetaminophen-Codeine 300/30 mg Tab PO PRN ×2 (16:07→22:07)
[2017-07-05] MEDS: Levothyroxine 25 MCG TAB PO SCH (06:13)
[2017-07-05] MEDS: Multivitamin With Minerals Tab PO SCH (08:09)
[2017-07-05] MEDS: Cholecalciferol 1,000 INTLU TAB PO SCH (08:10)
[2017-07-05] MEDS: Metoprolol Succinate 50 mg XL Tab PO SCH (08:10)
[2017-07-05] MEDS: Calcium-Vit D 500 mg-200 Units Tab UD PO SCH (08:10)
[2017-07-05] MEDS: Sildenafil 20 MG TAB PO SCH ×3 (08:10→17:14)
[2017-07-05] MEDS: Enoxaparin 30 mg Syringe SC SCH (08:11)
[2017-07-05] MEDS: Lidocaine 5% Patch TD SCH (08:11)
[2017-07-05] MEDS: OFLOXACIN 0.3% AD SCH ×2 (08:11→17:14)
[2017-07-05] MEDS: Acetaminophen-Codeine 300/30 mg Tab PO PRN (08:54)
--- NOTE | 2017-07-05 16:15 | CP.PCM.PN ---
Subjective - Date & Time of Evaluation Date of Evaluation: 07/05/17 Time of Evaluation: 12:15 - Subjective Subjective: F/U Back pain. Pt c/o of L-S pain. Objective - Vital Signs/Intake and Output Vital Signs (last 24 hours): Temp Pulse Resp BP Pulse Ox 98.2 F 60 20 108/47 L 98 07/05/17 16:11 07/05/17 16:11 07/05/17 16:11 07/05/17 16:11 07/05/17 16:11 - Medications Medications: Current Medications Acetaminophen/Codeine Phosphate (Tylenol/Codeine 300 Mg/30 Mg) 1 tab PO Q4 PRN PRN Reason: Pain, severe (8-10) Last Admin: 07/05/17 08:54 Dose: 1 tab Amiodarone HCl (Cordarone) 200 mg PO DAILY [facility] Last Admin: 07/05/17 08:10 Dose: 200 mg Anastrozole (Arimidex 1 Mg Tab) 1 mg PO DAILY [facility] Last Admin: 07/05/17 08:07 Dose: 1 mg Ascorbic Acid (Vitamin C 500 Mg Tab) 500 mg PO DAILY [facility] Last Admin: 07/05/17 08:11 Dose: 500 mg Aspirin (Ecotrin) 81 mg PO DAILY [facility] Last Admin: 07/05/17 08:09 Dose: 81 mg Atorvastatin Calcium (Lipitor) 20 mg PO HS [facility] Last Admin: 07/04/17 21:10 Dose: 20 mg Calcium/Vitamin D (Oyster Shell Calcium/Vitamin D 500 Mg-200 Iu) 1 tab PO DAILY [facility] Last Admin: 07/05/17 08:10 Dose: 1 tab Cholecalciferol (Vitamin D) 1,000 intlu PO DAILY [facility] Last Admin: 07/05/17 08:10 Dose: 1,000 intlu Docusate Sodium (Colace) 200 mg PO DAILY [facility] Last Admin: 07/05/17 08:09 Dose: 200 mg Enoxaparin Sodium (Lovenox) 30 mg SC DAILY [facility] PRN Reason: Protocol Last Admin: 07/05/17 08:11 Dose: 30 mg Furosemide (Lasix) 40 mg PO DAILY [facility] Last Admin: 07/05/17 08:09 Dose: 40 mg Lactulose (Enulose) 20 gm PO DAILY PRN PRN Reason: Constipation Last Admin: 07/05/17 08:09 Dose: 20 gm Levothyroxine Sodium (Synthroid) 25 mcg PO DAILY@0630 [facility] Last Admin: 07/05/17 06:13 Dose: 25 mcg Lidocaine (Lidoderm) 1 ea TD DAILY [facility] Last Admin: 07/05/17 08:11 Dose: 1 ea Losartan Potassium (Cozaar) 25 mg PO DAILY [facility] Last Admin: 07/05/17 08:10 Dose: 25 mg Memantine (Namenda) 10 mg PO DAILY [facility] Last Admin: 07/05/17 08:10 Dose: 10 mg Metoprolol Succinate (Toprol Xl) 50 mg PO DAILY [facility] Last Admin: 07/05/17 08:10 Dose: 50 mg Multivitamins/Minerals (Therapeutic-M Tab) 1 tab PO DAILY [facility] Last Admin: 07/05/17 08:09 Dose: 1 tab Mupirocin (Bactroban Ointment) 1 applic TOP BID [facility] Ofloxacin (Floxin 0.3% Otic Soln) 5 drop AD BID [facility] Last Admin: 07/05/17 08:11 Dose: 5 unit Sildenafil Citrate (Revatio) 20 mg PO TID [facility] Last Admin: 07/05/17 12:09 Dose: 20 mg Tramadol HCl (Ultram) 50 mg PO Q6 PRN PRN Reason: Pain, severe (8-10) Last Admin: 07/04/17 09:02 Dose: 50 mg Vitamin E (Vitamin E 400 Units Cap) 400 intlu PO DAILY [facility] Last Admin: 07/05/17 08:10 Dose: 400 intlu - Constitutional Appears: No Acute Distress, Chronically Ill - Head Exam Head Exam: NORMAL INSPECTION - Eye Exam Eye Exam: PERRL - ENT Exam ENT Exam: Normal Exam - Neck Exam Neck Exam: Normal Inspection - Respiratory Exam Respiratory Exam: Decreased Breath Sounds (b/l) - Cardiovascular Exam Cardiovascular Exam: REGULAR RHYTHM, Murmur - GI/Abdominal Exam GI & Abdominal Exam: Soft, Normal Bowel Sounds - Extremities Exam Additional comments: 1+ Non pitting edema L/E - Back Exam Back Exam: tenderness - Neurological Exam Neurological Exam: Alert, Oriented x3 Additional comments: Forgetful at times, generalized weakness, no focal motor/sensory deficit. - Psychiatric Exam Psychiatric exam: Normal Mood - Skin Skin Exam: Warm Assessment and Plan (1) Low back pain Status: Chronic (2) General weakness Status: Acute (3) CHF (congestive heart failure) Status: Chronic (4) COPD (chronic obstructive pulmonary disease) Status: Chronic (5) Cardiomyopathy Status: Chronic (6) HTN (hypertension) Status: Chronic (7) Hypothyroidism Status: Chronic (8) Pulmonary hypertension Status: Chronic (9) MRSA nasal colonization Status: Acute - Assessment and Plan (Free Text) Plan: Pt states, she is not relief with Tylenol with Co, will add Percocet. Continue PT and rest of Tx, f/u ID for Staph MRSA nasal
[2017-07-05] MEDS: Oxycodone/Acetaminophen 5/325 mg Tab PO PRN (18:30)
--- NOTE | 2017-07-05 19:26 | CP.PCM.PN ---
Subjective - Date & Time of Evaluation Date of Evaluation: 06/04/17 Time of Evaluation: 19:25 - Subjective Subjective: i d note nrsa in nares culture rx c bactroban Objective - Vital Signs/Intake and Output Vital Signs (last 24 hours): Temp Pulse Resp BP Pulse Ox 98.2 F 60 20 108/47 L 98 07/05/17 16:11 07/05/17 16:11 07/05/17 16:11 07/05/17 16:11 07/05/17 16:11 - Medications Medications: Current Medications Amiodarone HCl (Cordarone) 200 mg PO DAILY [facility] Last Admin: 07/05/17 08:10 Dose: 200 mg Anastrozole (Arimidex 1 Mg Tab) 1 mg PO DAILY [facility] Last Admin: 07/05/17 08:07 Dose: 1 mg Ascorbic Acid (Vitamin C 500 Mg Tab) 500 mg PO DAILY [facility] Last Admin: 07/05/17 08:11 Dose: 500 mg Aspirin (Ecotrin) 81 mg PO DAILY [facility] Last Admin: 07/05/17 08:09 Dose: 81 mg Atorvastatin Calcium (Lipitor) 20 mg PO HS [facility] Last Admin: 07/04/17 21:10 Dose: 20 mg Calcium/Vitamin D (Oyster Shell Calcium/Vitamin D 500 Mg-200 Iu) 1 tab PO DAILY [facility] Last Admin: 07/05/17 08:10 Dose: 1 tab Cholecalciferol (Vitamin D) 1,000 intlu PO DAILY [facility] Last Admin: 07/05/17 08:10 Dose: 1,000 intlu Docusate Sodium (Colace) 200 mg PO DAILY [facility] Last Admin: 07/05/17 08:09 Dose: 200 mg Enoxaparin Sodium (Lovenox) 30 mg SC DAILY [facility] PRN Reason: Protocol Last Admin: 07/05/17 08:11 Dose: 30 mg Furosemide (Lasix) 40 mg PO DAILY [facility] Last Admin: 07/05/17 08:09 Dose: 40 mg Lactulose (Enulose) 20 gm PO DAILY PRN PRN Reason: Constipation Last Admin: 07/05/17 08:09 Dose: 20 gm Levothyroxine Sodium (Synthroid) 25 mcg PO DAILY@0630 [facility] Last Admin: 07/05/17 06:13 Dose: 25 mcg Lidocaine (Lidoderm) 1 ea TD DAILY [facility] Last Admin: 07/05/17 08:11 Dose: 1 ea Losartan Potassium (Cozaar) 25 mg PO DAILY [facility] Last Admin: 07/05/17 08:10 Dose: 25 mg Memantine (Namenda) 10 mg PO DAILY [facility] Last Admin: 07/05/17 08:10 Dose: 10 mg Metoprolol Succinate (Toprol Xl) 50 mg PO DAILY [facility] Last Admin: 07/05/17 08:10 Dose: 50 mg Multivitamins/Minerals (Therapeutic-M Tab) 1 tab PO DAILY [facility] Last Admin: 07/05/17 08:09 Dose: 1 tab Mupirocin (Bactroban Ointment) 1 applic TOP BID [facility] Last Admin: 07/05/17 17:14 Dose: 1 applic Ofloxacin (Floxin 0.3% Otic Soln) 5 drop AD BID [facility] Last Admin: 07/05/17 17:14 Dose: 1 unit Oxycodone/Acetaminophen (Percocet 5/325 Mg Tab) 1 tab PO Q6 PRN PRN Reason: Pain, severe (8-10) Stop: 07/08/17 17:14 Last Admin: 07/05/17 18:30 Dose: 1 tab Sildenafil Citrate (Revatio) 20 mg PO TID [facility] Last Admin: 07/05/17 17:14 Dose: 20 mg Tramadol HCl (Ultram) 50 mg PO Q6 PRN PRN Reason: Pain, severe (8-10) Last Admin: 07/04/17 09:02 Dose: 50 mg Vitamin E (Vitamin E 400 Units Cap) 400 intlu PO DAILY [facility] Last Admin: 07/05/17 08:10 Dose: 400 intlu
[2017-07-06] MEDS: Levothyroxine 25 MCG TAB PO SCH (06:22)
[2017-07-06] MEDS: Lidocaine 5% Patch TD SCH (08:44)
[2017-07-06] MEDS: Enoxaparin 30 mg Syringe SC SCH (08:45)
[2017-07-06] MEDS: Sildenafil 20 MG TAB PO SCH ×3 (08:45→17:15)
[2017-07-06] MEDS: Calcium-Vit D 500 mg-200 Units Tab UD PO SCH (08:45)
[2017-07-06] MEDS: Cholecalciferol 1,000 INTLU TAB PO SCH (08:47)
[2017-07-06] MEDS: Multivitamin With Minerals Tab PO SCH (08:47)
[2017-07-06] MEDS: OFLOXACIN 0.3% AD SCH ×2 (08:48→17:15)
[2017-07-06] MEDS: Metoprolol Succinate 50 mg XL Tab PO SCH (09:08)
[2017-07-06] MEDS: Oxycodone/Acetaminophen 5/325 mg Tab PO PRN (11:47)
--- NOTE | 2017-07-06 12:40 | CP.PCM.PN ---
Subjective - Date & Time of Evaluation Date of Evaluation: 07/06/17 Time of Evaluation: 10:00 - Subjective Subjective: F/U Low back pain. low back pain , walking with walker and PT help Objective - Vital Signs/Intake and Output Vital Signs (last 24 hours): Temp Pulse Resp BP Pulse Ox 97.2 F L 60 20 131/59 L 100 07/06/17 08:19 07/06/17 09:08 07/06/17 08:19 07/06/17 09:08 07/06/17 08:19 - Medications Medications: Current Medications Amiodarone HCl (Cordarone) 200 mg PO DAILY [facility] Last Admin: 07/06/17 08:46 Dose: 200 mg Anastrozole (Arimidex 1 Mg Tab) 1 mg PO DAILY [facility] Last Admin: 07/06/17 08:50 Dose: 1 mg Ascorbic Acid (Vitamin C 500 Mg Tab) 500 mg PO DAILY [facility] Last Admin: 07/06/17 08:46 Dose: 500 mg Aspirin (Ecotrin) 81 mg PO DAILY [facility] Last Admin: 07/06/17 08:45 Dose: 81 mg Atorvastatin Calcium (Lipitor) 20 mg PO HS [facility] Last Admin: 07/05/17 22:09 Dose: 20 mg Calcium/Vitamin D (Oyster Shell Calcium/Vitamin D 500 Mg-200 Iu) 1 tab PO DAILY [facility] Last Admin: 07/06/17 08:45 Dose: 1 tab Cholecalciferol (Vitamin D) 1,000 intlu PO DAILY [facility] Last Admin: 07/06/17 08:47 Dose: 1,000 intlu Docusate Sodium (Colace) 200 mg PO DAILY [facility] Last Admin: 07/06/17 08:47 Dose: 200 mg Enoxaparin Sodium (Lovenox) 30 mg SC DAILY [facility] PRN Reason: Protocol Last Admin: 07/06/17 08:45 Dose: 30 mg Furosemide (Lasix) 40 mg PO DAILY [facility] Last Admin: 07/06/17 08:48 Dose: 40 mg Lactulose (Enulose) 20 gm PO DAILY PRN PRN Reason: Constipation Last Admin: 07/05/17 08:09 Dose: 20 gm Levothyroxine Sodium (Synthroid) 25 mcg PO DAILY@0630 [facility] Last Admin: 07/06/17 06:22 Dose: 25 mcg Lidocaine (Lidoderm) 1 ea TD DAILY [facility] Last Admin: 07/06/17 08:44 Dose: 1 ea Losartan Potassium (Cozaar) 25 mg PO DAILY [facility] Last Admin: 07/06/17 08:47 Dose: 25 mg Memantine (Namenda) 10 mg PO DAILY [facility] Last Admin: 07/06/17 08:51 Dose: 10 mg Metoprolol Succinate (Toprol Xl) 50 mg PO DAILY [facility] Last Admin: 07/06/17 09:08 Dose: 50 mg Multivitamins/Minerals (Therapeutic-M Tab) 1 tab PO DAILY [facility] Last Admin: 07/06/17 08:47 Dose: 1 tab Mupirocin (Bactroban Ointment) 1 applic TOP BID [facility] Last Admin: 07/06/17 08:48 Dose: 1 applic Ofloxacin (Floxin 0.3% Otic Soln) 5 drop AD BID [facility] Last Admin: 07/06/17 08:48 Dose: 1 unit Oxycodone/Acetaminophen (Percocet 5/325 Mg Tab) 1 tab PO Q6 PRN PRN Reason: Pain, severe (8-10) Stop: 07/08/17 17:14 Last Admin: 07/06/17 11:47 Dose: 1 tab Sildenafil Citrate (Revatio) 20 mg PO TID [facility] Last Admin: 07/06/17 12:05 Dose: 20 mg Tramadol HCl (Ultram) 50 mg PO Q6 PRN PRN Reason: Pain, severe (8-10) Last Admin: 07/04/17 09:02 Dose: 50 mg Vitamin E (Vitamin E 400 Units Cap) 400 intlu PO DAILY [facility] Last Admin: 07/06/17 08:45 Dose: 400 intlu - Constitutional Appears: No Acute Distress, Chronically Ill - Head Exam Head Exam: NORMAL INSPECTION - Eye Exam Eye Exam: PERRL - ENT Exam ENT Exam: Normal Exam - Neck Exam Neck Exam: Normal Inspection - Respiratory Exam Respiratory Exam: Decreased Breath Sounds (b/l) - Cardiovascular Exam Cardiovascular Exam: REGULAR RHYTHM, Murmur (systolic) - GI/Abdominal Exam GI & Abdominal Exam: Soft, Normal Bowel Sounds - Extremities Exam Additional comments: 1+ non pitting edema L/E - Back Exam Back Exam: tenderness - Neurological Exam Neurological Exam: Alert, Oriented x3 Additional comments: Forgetful at times, generalized weakness, no focal motor/sensory deficit. - Psychiatric Exam Psychiatric exam: Normal Mood - Skin Skin Exam: Normal Color, Warm Assessment and Plan (1) Low back pain Status: Chronic (2) General weakness Status: Acute (3) CHF (congestive heart failure) Status: Chronic (4) COPD (chronic obstructive pulmonary disease) Status: Chronic (5) Cardiomyopathy Status: Chronic (6) HTN (hypertension) Status: Chronic (7) Hypothyroidism Status: Chronic (8) Pulmonary hypertension Status: Chronic (9) MRSA nasal colonization Status: Acute - Assessment and Plan (Free Text) Plan: continue current meds , discussed with PT , Patient still need help but expecting great improvement , ID consult appreciated
--- NOTE | 2017-07-06 18:07 | CP.PCM.PN ---
Subjective - Date & Time of Evaluation Date of Evaluation: 07/05/17 Time of Evaluation: 18:02 - Subjective Subjective: I D NOTE PATIENT c VRE In urine RX C ZYVOX(LINZELOID) 600MG PO BID X 7 DAYS Objective - Vital Signs/Intake and Output Vital Signs (last 24 hours): Temp Pulse Resp BP Pulse Ox 98.2 F 68 20 112/52 L 98 07/06/17 15:45 07/06/17 16:45 07/06/17 15:45 07/06/17 15:45 07/06/17 16:45 - Medications Medications: Current Medications Amiodarone HCl (Cordarone) 200 mg PO DAILY [facility] Last Admin: 07/06/17 08:46 Dose: 200 mg Anastrozole (Arimidex 1 Mg Tab) 1 mg PO DAILY [facility] Last Admin: 07/06/17 08:50 Dose: 1 mg Ascorbic Acid (Vitamin C 500 Mg Tab) 500 mg PO DAILY [facility] Last Admin: 07/06/17 08:46 Dose: 500 mg Aspirin (Ecotrin) 81 mg PO DAILY [facility] Last Admin: 07/06/17 08:45 Dose: 81 mg Atorvastatin Calcium (Lipitor) 20 mg PO HS [facility] Last Admin: 07/05/17 22:09 Dose: 20 mg Calcium/Vitamin D (Oyster Shell Calcium/Vitamin D 500 Mg-200 Iu) 1 tab PO DAILY [facility] Last Admin: 07/06/17 08:45 Dose: 1 tab Cholecalciferol (Vitamin D) 1,000 intlu PO DAILY [facility] Last Admin: 07/06/17 08:47 Dose: 1,000 intlu Docusate Sodium (Colace) 200 mg PO DAILY [facility] Last Admin: 07/06/17 08:47 Dose: 200 mg Enoxaparin Sodium (Lovenox) 30 mg SC DAILY [facility] PRN Reason: Protocol Last Admin: 07/06/17 08:45 Dose: 30 mg Furosemide (Lasix) 40 mg PO DAILY [facility] Last Admin: 07/06/17 08:48 Dose: 40 mg Lactulose (Enulose) 20 gm PO DAILY PRN PRN Reason: Constipation Last Admin: 07/05/17 08:09 Dose: 20 gm Levothyroxine Sodium (Synthroid) 25 mcg PO DAILY@0630 [facility] Last Admin: 07/06/17 06:22 Dose: 25 mcg Lidocaine (Lidoderm) 1 ea TD DAILY [facility] Last Admin: 07/06/17 08:44 Dose: 1 ea Linezolid (Zyvox) 600 mg PO Q12 [facility] PRN Reason: Protocol Losartan Potassium (Cozaar) 25 mg PO DAILY [facility] Last Admin: 07/06/17 08:47 Dose: 25 mg Memantine (Namenda) 10 mg PO DAILY [facility] Last Admin: 07/06/17 08:51 Dose: 10 mg Metoprolol Succinate (Toprol Xl) 50 mg PO DAILY [facility] Last Admin: 07/06/17 09:08 Dose: 50 mg Multivitamins/Minerals (Therapeutic-M Tab) 1 tab PO DAILY [facility] Last Admin: 07/06/17 08:47 Dose: 1 tab Mupirocin (Bactroban Ointment) 1 applic TOP BID@0900,2100 [facility] Ofloxacin (Floxin 0.3% Otic Soln) 5 drop AD BID [facility] Last Admin: 07/06/17 17:15 Dose: 1 unit Oxycodone/Acetaminophen (Percocet 5/325 Mg Tab) 1 tab PO Q6 PRN PRN Reason: Pain, severe (8-10) Stop: 07/08/17 17:14 Last Admin: 07/06/17 11:47 Dose: 1 tab Sildenafil Citrate (Revatio) 20 mg PO TID [facility] Last Admin: 07/06/17 17:15 Dose: 20 mg Tramadol HCl (Ultram) 50 mg PO Q6 PRN PRN Reason: Pain, severe (8-10) Last Admin: 07/04/17 09:02 Dose: 50 mg Vitamin E (Vitamin E 400 Units Cap) 400 intlu PO DAILY [facility] Last Admin: 07/06/17 08:45 Dose: 400 intlu
[2017-07-07] MEDS: Levothyroxine 25 MCG TAB PO SCH (05:34)
[2017-07-07 07:03] LABS: BASO # 0.1 K/uL (0.0-0.2); BASO % 0.9 % (0.0-2.0); EOS # 0.2 K/uL (0.0-0.7); EOS % 2.2 % (0.0-4.0); HEMOGLOBIN 11.8 g/dL (12.0-16.0); LYMPH # 2.2 K/uL (1.0-4.3); LYMPH % 25.5 % (20.0-40.0); MEAN CELL VOLUME 97.6 fl (81.0-99.0); MEAN CORPUSCULAR HEMOGLOBIN 32.4 pg (27.0-31.0); MEAN CORPUSCULAR HGB CONC 33.2 g/dL (33.0-37.0); MEAN PLATELET VOLUME 8.8 fl (7.2-11.7); MONO # 1.1 K/uL (0.0-0.8); MONO % 12.4 % (0.0-10.0); RBC 3.63 Mil/uL (3.80-5.20); RED CELL DISTRIBUTION WIDTH 14.9 % (11.5-14.5); WHITE BLOOD COUNT 8.5 K/uL (4.8-10.8)
[2017-07-07 07:08] LABS: ALB/GLOB RATIO 1.2 (1.0-2.1); ALBUMIN 3.6 g/dL (3.5-5.0)
[2017-07-07 07:23] LABS: T4 11.5 ug/dl (5.5-11.0)
[2017-07-07] MEDS: Enoxaparin 30 mg Syringe SC SCH (08:30)
[2017-07-07] MEDS: Sildenafil 20 MG TAB PO SCH ×3 (08:30→17:44)
[2017-07-07] MEDS: OFLOXACIN 0.3% AD SCH ×2 (08:31→17:43)
[2017-07-07] MEDS: Cholecalciferol 1,000 INTLU TAB PO SCH (08:31)
[2017-07-07] MEDS: Calcium-Vit D 500 mg-200 Units Tab UD PO SCH (08:34)
[2017-07-07] MEDS: Multivitamin With Minerals Tab PO SCH (08:35)
[2017-07-07] MEDS: Lidocaine 5% Patch TD SCH (08:35)
[2017-07-07] MEDS: Metoprolol Succinate 50 mg XL Tab PO SCH (08:36)
[2017-07-08] MEDS: Oxycodone/Acetaminophen 5/325 mg Tab PO PRN ×2 (02:45→10:47)
[2017-07-08] MEDS: Levothyroxine 25 MCG TAB PO SCH (06:35)
[2017-07-08] MEDS: Sildenafil 20 MG TAB PO SCH ×3 (08:36→17:17)
[2017-07-08] MEDS: Multivitamin With Minerals Tab PO SCH (08:36)
[2017-07-08] MEDS: Metoprolol Succinate 50 mg XL Tab PO SCH (08:37)
[2017-07-08] MEDS: Cholecalciferol 1,000 INTLU TAB PO SCH (08:38)
[2017-07-08] MEDS: Calcium-Vit D 500 mg-200 Units Tab UD PO SCH (08:38)
[2017-07-08] MEDS: Enoxaparin 30 mg Syringe SC SCH (08:38)
[2017-07-08] MEDS: OFLOXACIN 0.3% AD SCH ×2 (08:39→17:17)
[2017-07-08] MEDS: Lidocaine 5% Patch TD SCH (08:48)
--- NOTE | 2017-07-08 14:15 | CP.PCM.PN ---
Subjective - Date & Time of Evaluation Date of Evaluation: 07/08/17 Time of Evaluation: 11:40 - Subjective Subjective: Complains of lower abdominal pain thoracic spine pain patient is doing well with therapy Objective - Vital Signs/Intake and Output Vital Signs (last 24 hours): Temp Pulse Resp BP Pulse Ox 97.0 F L 60 20 137/47 L 94 L 07/08/17 07:59 07/08/17 08:37 07/08/17 07:59 07/08/17 08:37 07/08/17 07:59 - Medications Medications: Current Medications Amiodarone HCl (Cordarone) 200 mg PO DAILY [facility] Last Admin: 07/08/17 08:36 Dose: 200 mg Anastrozole (Arimidex 1 Mg Tab) 1 mg PO DAILY [facility] Last Admin: 07/08/17 08:40 Dose: 1 mg Ascorbic Acid (Vitamin C 500 Mg Tab) 500 mg PO DAILY [facility] Last Admin: 07/08/17 08:36 Dose: 500 mg Aspirin (Ecotrin) 81 mg PO DAILY [facility] Last Admin: 07/08/17 08:35 Dose: 81 mg Atorvastatin Calcium (Lipitor) 20 mg PO HS [facility] Last Admin: 07/07/17 21:24 Dose: 20 mg Calcium/Vitamin D (Oyster Shell Calcium/Vitamin D 500 Mg-200 Iu) 1 tab PO DAILY [facility] Last Admin: 07/08/17 08:38 Dose: 1 tab Cholecalciferol (Vitamin D) 1,000 intlu PO DAILY [facility] Last Admin: 07/08/17 08:38 Dose: 1,000 intlu Docusate Sodium (Colace) 200 mg PO DAILY [facility] Last Admin: 07/08/17 08:37 Dose: 200 mg Enoxaparin Sodium (Lovenox) 30 mg SC DAILY [facility] PRN Reason: Protocol Last Admin: 07/08/17 08:38 Dose: 30 mg Furosemide (Lasix) 40 mg PO DAILY [facility] Last Admin: 07/08/17 08:36 Dose: 40 mg Lactulose (Enulose) 20 gm PO DAILY PRN PRN Reason: Constipation Last Admin: 07/07/17 08:58 Dose: 20 gm Levothyroxine Sodium (Synthroid) 25 mcg PO DAILY@0630 [facility] Last Admin: 07/08/17 06:35 Dose: 25 mcg Lidocaine (Lidoderm) 1 ea TD DAILY [facility] Last Admin: 07/08/17 08:48 Dose: 1 ea Linezolid (Zyvox) 600 mg PO Q12 [facility] PRN Reason: Protocol Last Admin: 07/08/17 08:35 Dose: 600 mg Losartan Potassium (Cozaar) 25 mg PO DAILY [facility] Last Admin: 07/08/17 08:35 Dose: 25 mg Memantine (Namenda) 10 mg PO DAILY [facility] Last Admin: 07/08/17 08:38 Dose: 10 mg Metoprolol Succinate (Toprol Xl) 50 mg PO DAILY [facility] Last Admin: 07/08/17 08:37 Dose: 50 mg Multivitamins/Minerals (Therapeutic-M Tab) 1 tab PO DAILY [facility] Last Admin: 07/08/17 08:36 Dose: 1 tab Mupirocin (Bactroban Ointment) 1 applic TOP BID@0900,2100 [facility] Last Admin: 07/08/17 08:39 Dose: 1 applic Ofloxacin (Floxin 0.3% Otic Soln) 5 drop AD BID [facility] Last Admin: 07/08/17 08:39 Dose: 5 drop Oxycodone/Acetaminophen (Percocet 5/325 Mg Tab) 1 tab PO Q6 PRN PRN Reason: Pain, severe (8-10) Stop: 07/08/17 17:14 Last Admin: 07/08/17 10:47 Dose: 1 tab Sildenafil Citrate (Revatio) 20 mg PO TID [facility] Last Admin: 07/08/17 12:17 Dose: 20 mg Tramadol HCl (Ultram) 50 mg PO Q6 PRN PRN Reason: Pain, severe (8-10) Last Admin: 07/04/17 09:02 Dose: 50 mg Vitamin E (Vitamin E 400 Units Cap) 400 intlu PO DAILY [facility] Last Admin: 07/08/17 08:36 Dose: 400 intlu - Labs Labs: 07/07/17 06:15 07/07/17 06:15 - Constitutional Appears: No Acute Distress, Chronically Ill - Head Exam Head Exam: NORMAL INSPECTION - Eye Exam Eye Exam: PERRL - ENT Exam ENT Exam: Normal Exam - Neck Exam Neck Exam: Normal Inspection - Respiratory Exam Respiratory Exam: Decreased Breath Sounds (b/l) - Cardiovascular Exam Cardiovascular Exam: REGULAR RHYTHM, Murmur (systolic) - GI/Abdominal Exam GI & Abdominal Exam: Soft, Normal Bowel Sounds - Extremities Exam Additional comments: 1+ non pitting edema L/E - Back Exam Back Exam: tenderness - Neurological Exam Neurological Exam: Alert, Oriented x3 Additional comments: Forgetful at times, generalized weakness, no focal motor sensory deficit. - Psychiatric Exam Psychiatric exam: Normal Mood - Skin Skin Exam: Normal Color, Warm Assessment and Plan (1) Low back pain Status: Chronic (2) General weakness Status: Acute (3) CHF (congestive heart failure) Status: Chronic (4) COPD (chronic obstructive pulmonary disease) Status: Chronic (5) Cardiomyopathy Status: Chronic (6) HTN (hypertension) Status: Chronic (7) Hypothyroidism Status: Chronic (8) Pulmonary hypertension Status: Chronic (9) MRSA nasal colonization Status: Acute (10) UTI (urinary tract infection) Assessment & Plan: VRE Status: Acute - Assessment and Plan (Free Text) Plan: continue Bactrobam , Zyvox , PT and rest of treatment
[2017-07-09] MEDS: Levothyroxine 25 MCG TAB PO SCH (05:50)
[2017-07-09] MEDS: Calcium-Vit D 500 mg-200 Units Tab UD PO SCH (08:36)
[2017-07-09] MEDS: Multivitamin With Minerals Tab PO SCH (08:36)
[2017-07-09] MEDS: Cholecalciferol 1,000 INTLU TAB PO SCH (08:37)
[2017-07-09] MEDS: Metoprolol Succinate 50 mg XL Tab PO SCH (08:37)
[2017-07-09] MEDS: Sildenafil 20 MG TAB PO SCH ×3 (08:39→16:40)
[2017-07-09] MEDS: OFLOXACIN 0.3% AD SCH ×2 (08:39→16:40)
[2017-07-09] MEDS: Enoxaparin 30 mg Syringe SC SCH (08:39)
[2017-07-09] MEDS: Lidocaine 5% Patch TD SCH (08:40)
--- NOTE | 2017-07-09 14:03 | CP.PCM.PN ---
Subjective - Date & Time of Evaluation Date of Evaluation: 07/09/17 Time of Evaluation: 16:30 - Subjective Subjective: F/U Low back pain. Complains of low back pain thoracic pain improvement with pain medication doing well with PT Objective - Vital Signs/Intake and Output Vital Signs (last 24 hours): Temp Pulse Resp BP Pulse Ox 97.9 F 61 20 137/64 96 07/09/17 08:41 07/09/17 08:41 07/09/17 08:41 07/09/17 08:41 07/09/17 08:41 - Medications Medications: Current Medications Amiodarone HCl (Cordarone) 200 mg PO DAILY [facility] Last Admin: 07/09/17 08:38 Dose: 200 mg Anastrozole (Arimidex 1 Mg Tab) 1 mg PO DAILY [facility] Last Admin: 07/09/17 08:43 Dose: 1 mg Ascorbic Acid (Vitamin C 500 Mg Tab) 500 mg PO DAILY [facility] Last Admin: 07/09/17 08:36 Dose: 500 mg Aspirin (Ecotrin) 81 mg PO DAILY [facility] Last Admin: 07/09/17 08:37 Dose: 81 mg Atorvastatin Calcium (Lipitor) 20 mg PO HS [facility] Last Admin: 07/08/17 21:10 Dose: 20 mg Calcium/Vitamin D (Oyster Shell Calcium/Vitamin D 500 Mg-200 Iu) 1 tab PO DAILY [facility] Last Admin: 07/09/17 08:36 Dose: 1 tab Cholecalciferol (Vitamin D) 1,000 intlu PO DAILY [facility] Last Admin: 07/09/17 08:37 Dose: 1,000 intlu Docusate Sodium (Colace) 200 mg PO DAILY [facility] Last Admin: 07/09/17 08:36 Dose: 200 mg Furosemide (Lasix) 40 mg PO DAILY [facility] Last Admin: 07/09/17 08:37 Dose: 40 mg Lactulose (Enulose) 20 gm PO DAILY PRN PRN Reason: Constipation Last Admin: 07/07/17 08:58 Dose: 20 gm Levothyroxine Sodium (Synthroid) 25 mcg PO DAILY@0630 [facility] Last Admin: 07/09/17 05:50 Dose: 25 mcg Lidocaine (Lidoderm) 1 ea TD DAILY [facility] Last Admin: 07/09/17 08:40 Dose: 1 ea Linezolid (Zyvox) 600 mg PO Q12 [facility] PRN Reason: Protocol Last Admin: 07/09/17 08:54 Dose: 600 mg Losartan Potassium (Cozaar) 25 mg PO DAILY [facility] Last Admin: 07/09/17 08:38 Dose: 25 mg Memantine (Namenda) 10 mg PO DAILY [facility] Last Admin: 07/09/17 08:37 Dose: 10 mg Metoprolol Succinate (Toprol Xl) 50 mg PO DAILY [facility] Last Admin: 07/09/17 08:37 Dose: 50 mg Multivitamins/Minerals (Therapeutic-M Tab) 1 tab PO DAILY [facility] Last Admin: 07/09/17 08:36 Dose: 1 tab Mupirocin (Bactroban Ointment) 1 applic TOP BID@0900,2100 [facility] Last Admin: 07/09/17 08:40 Dose: 1 applic Ofloxacin (Floxin 0.3% Otic Soln) 5 drop AD BID [facility] Last Admin: 07/09/17 08:39 Dose: 5 drop Oxycodone/Acetaminophen (Percocet 5/325 Mg Tab) 1 tab PO Q6 PRN PRN Reason: Pain, severe (8-10) Stop: 07/12/17 10:31 Sildenafil Citrate (Revatio) 20 mg PO TID [facility] Last Admin: 07/09/17 12:30 Dose: 20 mg Vitamin E (Vitamin E 400 Units Cap) 400 intlu PO DAILY [facility] Last Admin: 07/09/17 08:39 Dose: 400 intlu - Labs Labs: 07/07/17 06:15 07/07/17 06:15 - Constitutional Appears: No Acute Distress - Head Exam Head Exam: NORMAL INSPECTION - Eye Exam Eye Exam: PERRL - ENT Exam ENT Exam: Normal Exam - Neck Exam Neck Exam: Normal Inspection - Respiratory Exam Respiratory Exam: Decreased Breath Sounds (b/l) - Cardiovascular Exam Cardiovascular Exam: REGULAR RHYTHM, Murmur (systolic) - GI/Abdominal Exam GI & Abdominal Exam: Soft, Normal Bowel Sounds - Extremities Exam Additional comments: 1+ non pitting edema L/E - Back Exam Back Exam: tenderness - Neurological Exam Neurological Exam: Alert, Oriented x3 Additional comments: At times forgetful, generalized weakness, no focal motor sensory deficit. - Psychiatric Exam Psychiatric exam: Normal Mood - Skin Skin Exam: Normal Color, Warm Assessment and Plan (1) Low back pain Status: Chronic (2) General weakness Status: Acute (3) CHF (congestive heart failure) Status: Chronic (4) COPD (chronic obstructive pulmonary disease) Status: Chronic (5) Cardiomyopathy Status: Chronic (6) HTN (hypertension) Status: Chronic (7) Hypothyroidism Status: Chronic (8) Pulmonary hypertension Status: Chronic (9) MRSA nasal colonization Status: Acute - Assessment and Plan (Free Text) Plan: Continue Bactroban, Zyvox, Percocet , PT and rest of the treatment , for DD on Wednesday
[2017-07-09] MEDS: Oxycodone/Acetaminophen 5/325 mg Tab PO PRN (16:46)
[2017-07-10] MEDS ORDERED: Oxycodone/Acetaminophen 5/325 mg Tab PO STA (03:46)
[2017-07-10] MEDS: Levothyroxine 25 MCG TAB PO SCH (05:49)
--- NOTE | 2017-07-10 08:12 | PCM.RRT ---
Plan - Assessment of Findings&Treatment Plan [facility] location: 711 bed 1 [facility] time: 7:53 a.m [facility] arrival time: 7:54 a.m. Subjective: [facility] called by RN with patient complaining of chest pain. On arrival to room, pt. noted to be not in distress alert awake and orientied. Pt. states "I am sad." Pt. denies chest pain, dyspnea, abdominal pain, fever, or chills. Objective: General: AAO x 3, No distress Heent: ATNN, PERRLA Resp: CTAB, No accessory muscle use Abdomen: soft nontender Cardio: s1-s2, regular rhythm [facility] Intervention EKG 12 lead [facility] outcome: 1- Pt. EKG 12 lead compared to previous EKG and no changes noted 2- Pt. reassured PA[facility] SPECIALIST Leader Dr. Ralph PAINT SPECIALIST resident Dr. Gill, Dr. Gomez, Dr. Gutierrez
[2017-07-10] MEDS ORDERED: Docusate-Senna 50 mg-8.6 mg Tab PO ONE (08:13)
[2017-07-10] MEDS: Metoprolol Succinate 50 mg XL Tab PO SCH (09:16)
[2017-07-10] MEDS: Calcium-Vit D 500 mg-200 Units Tab UD PO SCH (09:16)
[2017-07-10] MEDS: Multivitamin With Minerals Tab PO SCH (09:16)
[2017-07-10] MEDS: Sildenafil 20 MG TAB PO SCH ×3 (09:17→16:36)
[2017-07-10] MEDS: Cholecalciferol 1,000 INTLU TAB PO SCH (09:18)
[2017-07-10] MEDS: Lidocaine 5% Patch TD SCH (09:19)
[2017-07-10] MEDS: OFLOXACIN 0.3% AD SCH ×2 (09:19→16:36)
[2017-07-10 13:42] LABS: HEMOGLOBIN 12.1 g/dL (12.0-16.0); MEAN CELL VOLUME 98.6 fl (81.0-99.0); MEAN CORPUSCULAR HEMOGLOBIN 32.7 pg (27.0-31.0); MEAN CORPUSCULAR HGB CONC 33.2 g/dL (33.0-37.0); RBC 3.68 Mil/uL (3.80-5.20); RED CELL DISTRIBUTION WIDTH 14.6 % (11.5-14.5); WHITE BLOOD COUNT 10.4 K/uL (4.8-10.8)
[2017-07-10 14:07] LABS: BLOOD UREA NITROGEN 23 mg/dl (7-17); CALCIUM 8.9 mg/dL (8.4-10.2); GFR AFRICAN-AMERICAN 44; GFR NON-AFRICAN AMERICAN 36
[2017-07-10 14:18] LABS: B-TYPE NATRIURETIC PEPTIDE 1990 pg/ml (0-900)
--- NOTE | 2017-07-10 15:23 | CP.PCM.PN ---
Subjective - Date & Time of Evaluation Date of Evaluation: 07/10/17 Time of Evaluation: 12:00 - Subjective Subjective: F/U Low back pain [employer] earlier in the morning patient was complaining of chest pain , patient is not complaining of chest pain now , no acute distress , no chest pain , complaining of low back and thoracic pain relieved with Percocet Objective - Vital Signs/Intake and Output Vital Signs (last 24 hours): Temp Pulse Resp BP Pulse Ox 97.2 F L 60 20 136/62 100 07/10/17 08:32 07/10/17 09:18 07/10/17 08:32 07/10/17 09:18 07/10/17 08:32 - Medications Medications: Current Medications Amiodarone HCl (Cordarone) 200 mg PO DAILY [facility] Last Admin: 07/10/17 09:18 Dose: 200 mg Anastrozole (Arimidex 1 Mg Tab) 1 mg PO DAILY [facility] Last Admin: 07/10/17 09:31 Dose: 1 mg Ascorbic Acid (Vitamin C 500 Mg Tab) 500 mg PO DAILY [facility] Last Admin: 07/10/17 09:19 Dose: 500 mg Aspirin (Ecotrin) 81 mg PO DAILY [facility] Last Admin: 07/10/17 09:21 Dose: 81 mg Atorvastatin Calcium (Lipitor) 20 mg PO HS [facility] Last Admin: 07/09/17 21:44 Dose: 20 mg Calcium/Vitamin D (Oyster Shell Calcium/Vitamin D 500 Mg-200 Iu) 1 tab PO DAILY [facility] Last Admin: 07/10/17 09:16 Dose: 1 tab Cholecalciferol (Vitamin D) 1,000 intlu PO DAILY [facility] Last Admin: 07/10/17 09:18 Dose: 1,000 intlu Docusate Sodium (Colace) 200 mg PO DAILY [facility] Last Admin: 07/10/17 09:18 Dose: 200 mg Furosemide (Lasix) 40 mg PO DAILY [facility] Last Admin: 07/10/17 09:18 Dose: 40 mg Lactulose (Enulose) 20 gm PO DAILY PRN PRN Reason: Constipation Last Admin: 07/10/17 09:20 Dose: 20 gm Levothyroxine Sodium (Synthroid) 25 mcg PO DAILY@0630 [facility] Last Admin: 07/10/17 05:49 Dose: 25 mcg Lidocaine (Lidoderm) 1 ea TD DAILY [facility] Last Admin: 07/10/17 09:19 Dose: 1 ea Linezolid (Zyvox) 600 mg PO Q12 [facility] PRN Reason: Protocol Last Admin: 07/10/17 09:16 Dose: 600 mg Losartan Potassium (Cozaar) 25 mg PO DAILY [facility] Last Admin: 07/10/17 09:17 Dose: 25 mg Memantine (Namenda) 10 mg PO DAILY [facility] Last Admin: 07/10/17 09:18 Dose: 10 mg Metoprolol Succinate (Toprol Xl) 50 mg PO DAILY [facility] Last Admin: 07/10/17 09:16 Dose: 50 mg Multivitamins/Minerals (Therapeutic-M Tab) 1 tab PO DAILY [facility] Last Admin: 07/10/17 09:16 Dose: 1 tab Mupirocin (Bactroban Ointment) 1 applic TOP BID@0900,2100 [facility] Last Admin: 07/10/17 09:17 Dose: 1 applic Ofloxacin (Floxin 0.3% Otic Soln) 5 drop AD BID [facility] Last Admin: 07/10/17 09:19 Dose: 5 drop Oxycodone/Acetaminophen (Percocet 5/325 Mg Tab) 1 tab PO Q6 PRN PRN Reason: Pain, severe (8-10) Stop: 07/12/17 10:31 Last Admin: 07/09/17 16:46 Dose: 1 tab Sildenafil Citrate (Revatio) 20 mg PO TID [facility] Last Admin: 07/10/17 12:40 Dose: 20 mg Vitamin E (Vitamin E 400 Units Cap) 400 intlu PO DAILY [facility] Last Admin: 07/10/17 09:21 Dose: 400 intlu - Labs Labs: 07/10/17 13:04 07/10/17 13:04 - Constitutional Appears: No Acute Distress - Head Exam Head Exam: NORMAL INSPECTION - Eye Exam Eye Exam: PERRL - ENT Exam ENT Exam: Normal Exam - Neck Exam Neck Exam: Normal Inspection - Respiratory Exam Respiratory Exam: Decreased Breath Sounds (b/l) - Cardiovascular Exam Cardiovascular Exam: REGULAR RHYTHM, Murmur (systolic) - GI/Abdominal Exam GI & Abdominal Exam: Soft, Normal Bowel Sounds - Extremities Exam Additional comments: 1+ non pitting edema L/E - Back Exam Back Exam: tenderness - Neurological Exam Neurological Exam: Alert Additional comments: At times forgetful, generalized weakness, no focal motor sensory deficit. - Psychiatric Exam Psychiatric exam: Normal Mood - Skin Skin Exam: Normal Color, Warm Assessment and Plan (1) Low back pain Status: Chronic (2) General weakness Status: Acute (3) CHF (congestive heart failure) Status: Chronic (4) COPD (chronic obstructive pulmonary disease) Status: Chronic (5) Cardiomyopathy Status: Chronic (6) HTN (hypertension) Status: Chronic (7) Hypothyroidism Status: Chronic (8) Pulmonary hypertension Status: Chronic (9) MRSA nasal colonization Status: Acute (10) Chest pain Status: Acute - Assessment and Plan (Free Text) Plan: Continue Bactroban , ZyvoxPercocet, EKG today no change from previous one, cardiology consult follow-up
[2017-07-11] MEDS: Levothyroxine 25 MCG TAB PO SCH (06:26)
[2017-07-11] MEDS: Lidocaine 5% Patch TD SCH (08:06)
[2017-07-11] MEDS: Sildenafil 20 MG TAB PO SCH ×3 (08:06→16:20)
[2017-07-11] MEDS: Multivitamin With Minerals Tab PO SCH (08:07)
[2017-07-11] MEDS: Calcium-Vit D 500 mg-200 Units Tab UD PO SCH (08:08)
[2017-07-11] MEDS: Cholecalciferol 1,000 INTLU TAB PO SCH (08:08)
[2017-07-11] MEDS: OFLOXACIN 0.3% AD SCH ×2 (08:18→16:20)
[2017-07-11] MEDS: Metoprolol Succinate 50 mg XL Tab PO SCH (08:19)
[2017-07-11] MEDS: Oxycodone/Acetaminophen 5/325 mg Tab PO PRN (09:09)
--- NOTE | 2017-07-11 14:39 | CP.PCM.PN ---
Subjective - Date & Time of Evaluation Date of Evaluation: 07/11/17 Time of Evaluation: 12:00 - Subjective Subjective: F/U Low back pain. No complaints of chest pain, low back pain improved Objective - Vital Signs/Intake and Output Vital Signs (last 24 hours): Temp Pulse Resp BP Pulse Ox 97.5 F L 60 18 103/56 L 99 07/11/17 08:14 07/11/17 08:19 07/11/17 08:14 07/11/17 08:19 07/11/17 08:14 - Medications Medications: Current Medications Amiodarone HCl (Cordarone) 200 mg PO DAILY [facility] [place] Last Admin: 07/11/17 08:17 Dose: 200 mg Anastrozole (Arimidex 1 Mg Tab) 1 mg PO DAILY [facility] [place] Last Admin: 07/11/17 08:14 Dose: 1 mg Ascorbic Acid (Vitamin C 500 Mg Tab) 500 mg PO DAILY [facility] [place] Last Admin: 07/11/17 08:08 Dose: 500 mg Aspirin (Ecotrin) 81 mg PO DAILY [facility] [place] Last Admin: 07/11/17 08:08 Dose: 81 mg Atorvastatin Calcium (Lipitor) 20 mg PO HS [facility] [place] Last Admin: 07/10/17 21:12 Dose: 20 mg Calcium/Vitamin D (Oyster Shell Calcium/Vitamin D 500 Mg-200 Iu) 1 tab PO DAILY [facility] [place] Last Admin: 07/11/17 08:08 Dose: 1 tab Cholecalciferol (Vitamin D) 1,000 intlu PO DAILY [facility] [place] Last Admin: 07/11/17 08:08 Dose: 1,000 intlu Docusate Sodium (Colace) 200 mg PO DAILY [facility] [place] Last Admin: 07/11/17 08:08 Dose: 200 mg Furosemide (Lasix) 40 mg PO DAILY [facility] [place] Last Admin: 07/11/17 08:18 Dose: Not Given Lactulose (Enulose) 20 gm PO DAILY PRN PRN Reason: Constipation Last Admin: 07/10/17 09:20 Dose: 20 gm Levothyroxine Sodium (Synthroid) 25 mcg PO DAILY@0630 [facility] [place] Last Admin: 07/11/17 06:26 Dose: 25 mcg Lidocaine (Lidoderm) 1 ea TD DAILY [facility] [place] Last Admin: 07/11/17 08:06 Dose: 1 ea Linezolid (Zyvox) 600 mg PO Q12 [facility] [place] PRN Reason: Protocol Last Admin: 07/11/17 08:07 Dose: 600 mg Losartan Potassium (Cozaar) 25 mg PO DAILY [facility] [place] Last Admin: 07/11/17 08:07 Dose: Not Given Memantine (Namenda) 10 mg PO DAILY [facility] [place] Last Admin: 07/11/17 08:18 Dose: 10 mg Metoprolol Succinate (Toprol Xl) 50 mg PO DAILY [facility] [place] Last Admin: 07/11/17 08:19 Dose: 50 mg Multivitamins/Minerals (Therapeutic-M Tab) 1 tab PO DAILY [facility] [place] Last Admin: 07/11/17 08:07 Dose: 1 tab Mupirocin (Bactroban Ointment) 1 applic TOP BID@0900,2100 [facility] [place] Last Admin: 07/11/17 08:07 Dose: 1 applic Ofloxacin (Floxin 0.3% Otic Soln) 5 drop AD BID [facility] [place] Last Admin: 07/11/17 08:18 Dose: 5 drop Oxycodone/Acetaminophen (Percocet 5/325 Mg Tab) 1 tab PO Q6 PRN PRN Reason: Pain, severe (8-10) Stop: 07/12/17 10:31 Last Admin: 07/11/17 09:09 Dose: 1 tab Sildenafil Citrate (Revatio) 20 mg PO TID [facility] [place] Last Admin: 07/11/17 12:08 Dose: 20 mg Vitamin E (Vitamin E 400 Units Cap) 400 intlu PO DAILY [facility] [place] Last Admin: 07/11/17 08:07 Dose: 400 intlu - Labs Labs: 07/10/17 13:04 07/10/17 13:04 - Constitutional Appears: No Acute Distress - Head Exam Head Exam: NORMAL INSPECTION - Eye Exam Eye Exam: PERRL - ENT Exam ENT Exam: Normal Exam - Neck Exam Neck Exam: Normal Inspection - Respiratory Exam Respiratory Exam: Decreased Breath Sounds (b/l) - Cardiovascular Exam Cardiovascular Exam: REGULAR RHYTHM, Murmur (systolic) - GI/Abdominal Exam GI & Abdominal Exam: Soft, Normal Bowel Sounds - Extremities Exam Additional comments: 1+ non pitting edema L/E - Neurological Exam Neurological Exam: Alert, Oriented x3 Additional comments: No focal motor sensory deficit, generalized weakness. - Psychiatric Exam Psychiatric exam: Normal Mood - Skin Skin Exam: Warm Assessment and Plan (1) Low back pain Status: Chronic (2) General weakness Status: Acute (3) CHF (congestive heart failure) Status: Chronic (4) COPD (chronic obstructive pulmonary disease) Status: Chronic (5) Cardiomyopathy Status: Chronic (6) HTN (hypertension) Status: Chronic (7) Hypothyroidism Status: Chronic (8) Pulmonary hypertension Status: Chronic (9) MRSA nasal colonization Status: Resolved (10) Chest pain Assessment & Plan: non Cardiac Status: Acute - Assessment and Plan (Free Text) Plan: Continue Bactrobam, Cipro, Percocet, PT, and rest of the treatment , Doing well with PT , discharge planning in a.m.
[2017-07-11 16:51] VITALS: RESP 20
[2017-07-12] MEDS: Levothyroxine 25 MCG TAB PO SCH (05:50)
[2017-07-12 08:12] VITALS: PULSE 62; TEMP 97.7; O2SAT 93
[2017-07-12] MEDS: OFLOXACIN 0.3% AD SCH (08:20)
[2017-07-12] MEDS: Sildenafil 20 MG TAB PO SCH (08:21)
[2017-07-12] MEDS: Lidocaine 5% Patch TD SCH (08:21)
[2017-07-12] MEDS: Calcium-Vit D 500 mg-200 Units Tab UD PO SCH (08:21)
[2017-07-12] MEDS: Multivitamin With Minerals Tab PO SCH (08:22)
[2017-07-12] MEDS: Metoprolol Succinate 50 mg XL Tab PO SCH (08:22)
[2017-07-12] MEDS: Cholecalciferol 1,000 INTLU TAB PO SCH (08:22)
[2017-07-12 08:23] VITALS: BP 135/77
--- NOTE | 2017-07-12 09:12 | CARD ---
APPROVED REPORT EKG Measurement Heart [id number] ID [id number] <Conclusion> Poor data quality, interpretation may be adversely affected Atrial-paced rhythm Minimal voltage criteria for LVH, may be normal variant Possible Anterior infarct, age undetermined Abnormal ECG baseline artefact present-recommend repeat
== END 2017-07-12 10:21 | disposition home health service (06) | DRG 92 ==
LOC: H.TCU 17:12
PROVIDERS: ADMIT Internal Medicine Pulmonary Disease; ATTEND Internal Medicine Pulmonary Disease
PROC: F07Z9FZ Gait Training/Functional Ambulation Treatment using Assistive, Adaptive, Supportive or Protective Equipment (ICD-10-PCS; principal; 2017-07-03)
PROC: F08Z4FZ Home Management Treatment using Assistive, Adaptive, Supportive or Protective Equipment (ICD-10-PCS; 2017-07-03)
PROC: F07L6FZ Therapeutic Exercise Treatment of Musculoskeletal System - Lower Back / Lower Extremity using Assistive, Adaptive, Supportive or Protective Equipment (ICD-10-PCS; 2017-07-03)
DX: G89.29 Other chronic pain (principal); M54.5 Low back pain; I42.9 Cardiomyopathy, unspecified; R53.1 Weakness; R07.89 Other chest pain; I11.0 Hypertensive heart disease with heart failure; I50.9 Heart failure, unspecified; I27.20 Pulmonary hypertension, unspecified; E03.9 Hypothyroidism, unspecified; J44.9 Chronic obstructive pulmonary disease, unspecified; E78.00 Pure hypercholesterolemia, unspecified; Z22.322 Carrier or suspected carrier of Methicillin resistant Staphylococcus aureus; Z86.73 Personal history of transient ischemic attack (TIA), and cerebral infarction without residual deficits; Z95.5 Presence of coronary angioplasty implant and graft

== ENCOUNTER 2017-07-17 00:06 | Inpatient (IN) | payer MEDICARE ==
[2017-07-17 00:29] VITALS: BMI 25.0
[2017-07-17 01:09] LABS: VENOUS BLOOD GAS BASE EXCESS 6.6 mmol/L (0.0-2.0); VENOUS BLOOD GAS PCO2 40 mmHg (40-60); VENOUS BLOOD GAS PO2 36 mm/Hg (30-55); VENOUS BLOOD PH 7.49 (7.32-7.43)
[2017-07-17 01:57] LABS: BASO # 0.1 K/uL (0.0-0.2); BASO % 0.7 % (0.0-2.0); EOS % 0.3 % (0.0-4.0); HEMOGLOBIN 11.3 g/dL (12.0-16.0); LYMPH # 1.3 K/uL (1.0-4.3); LYMPH % 8.4 % (20.0-40.0); MEAN CELL VOLUME 98.3 fl (81.0-99.0); MEAN CORPUSCULAR HEMOGLOBIN 32.2 pg (27.0-31.0); MEAN CORPUSCULAR HGB CONC 32.8 g/dL (33.0-37.0); MEAN PLATELET VOLUME 8.4 fl (7.2-11.7); MONO # 1.6 K/uL (0.0-0.8); NEUT # 12.9 K/uL (1.8-7.0); NEUT % 80.6 % (50.0-75.0); PLATELET COUNT 220 K/uL (130-400); RBC 3.51 Mil/uL (3.80-5.20); RED CELL DISTRIBUTION WIDTH 13.9 % (11.5-14.5); WHITE BLOOD COUNT 15.9 K/uL (4.8-10.8)
[2017-07-17 02:08] LABS: CALCIUM 8.8 mg/dL (8.4-10.2)
[2017-07-17 02:14] LABS: PROTHROMBIN TIME 11.7 Seconds (9.8-13.1)
[2017-07-17 02:15] LABS: INR 1.1 (0.9-1.2); PARTIAL THROMBOPLASTIN TIME 27.9 Seconds (25.6-37.1)
[2017-07-17 02:19] LABS: TROPONIN I 0.038 ng/mL (0.00-0.120)
[2017-07-17] MEDS ORDERED: Piperacillin/Tazobact 3.375 GM in Sodium Chloride 0.9% 100 ML IVPB STA (03:14)
[2017-07-17] MEDS ORDERED: Ciprofloxacin 400mg/200ml D5W 400 MG/200 ML BAG IVPB STA (03:17)
[2017-07-17] MEDS ORDERED: Piperacillin/Tazobact 3.375 gm Inj IVPB ONE (03:30)
[2017-07-17] MEDS ORDERED: Albuterol-Ipratrop 3 mg / 0.5 (3 ml) UD INH STA (03:37)
[2017-07-17] MEDS ORDERED: Albuterol-Ipratrop 3 mg / 0.5 (3 ml) UD ONE (03:59)
--- NOTE | 2017-07-17 04:04 | ED PDOC ---
HPI: SOB/CHF/COPD Time Seen by Provider: 07/17/17 00:40 Chief Complaint (Nursing): Shortness Of Breath History Per: Patient History/Exam Limitations: no limitations Onset/Duration Of Symptoms: Other (x since this morning) Current Symptoms Are (Timing): Still Present Additional History Per: Patient Additional Complaint(s): 81-year-old female, with a history of CHF, COPD, Pulmonary hypertension, CAD, pacemaker and coronary stent, was brought in by EMS for difficulty breathing and shortness of breath since this morning. Patient reports she took an extra dose of lasix to get better. Reports she urinated a lot, but did not feel better. (-) chest pain, (-) cough, (-) leg swelling, (-) shocks, (-) palpitations. Patient did not know she had fever. PMD: Dr. Carr at [place] [employer] Fabricator: Dr. Da Silva Air Analyst: Dr. Gomez Past Medical History Reviewed: Historical Data, Nursing Documentation, Vital Signs Vital Signs: Last Vital Signs Temp 97.6 F 07/17/17 20:35 Pulse 64 07/17/17 21:00 Resp 20 07/17/17 20:35 BP 93/62 L 07/17/17 20:35 Pulse Ox 94 L 07/17/17 20:35 - Medical History PMH: Arthritis, Back Problems, Bronchitis, CAD, Cardia Arrhythmia, CHF, COPD, HTN, Hypercholesterolemia, Hypothyroidism, Osteoporosis, Peripheral Edema, Pneumonia, TIA Denies: HIV, Chronic Kidney Disease, Rheumatoid Arthritis - Surgical History Surgical History: Appendectomy, Cholecystectomy, Coronary Stent, Pacemaker (AICD ) - Family History Family History: States: Unknown Family Hx - Immunization History Hx Tetanus Toxoid Vaccination: No Hx Influenza Vaccination: No Hx Pneumococcal Vaccination: No - Home Medications Home Medications: Ambulatory Orders Medication Instructions Recorded Ascorbic Acid [Vitamin C] 500 mg PO DAILY 04/29/16 Multivit-Min/FA/Lycopen/Lutein 1 tab PO DAILY 04/29/16 [Centrum Silver Tablet] Anastrozole [Arimidex] 1 mg PO DAILY #30 tablet 12/09/16 Aspirin [Ecotrin] 81 mg PO DAILY #30 tabec 12/09/16 Calcium Carbonate/Vitamin D3 1 tab PO DAILY #30 tablet 12/09/16 [Caltrate 600 Plus D3 Tablet] Losartan [Cozaar] 25 mg PO DAILY #30 tab 12/09/16 Levothyroxine [Synthroid] 25 mcg PO DAILY@0630 tab 12/19/16 Atorvastatin [Lipitor] 20 mg PO HS 04/15/17 Cholecalciferol [Vitamin D 1000 IU] 1,000 unit PO DAILY 04/15/17 Vitamin E [Vitamin E 400 Units Cap] 400 unit PO DAILY 04/15/17 Amiodarone [Cordarone] 200 mg PO DAILY tab 04/30/17 Metoprolol Succinate [Toprol XL] 50 mg PO DAILY tab 04/30/17 Memantine [Namenda] 10 mg PO DAILY tab 05/08/17 Docusate [Colace] 200 mg PO DAILY cap 07/02/17 Enoxaparin [Lovenox] 30 mg SC DAILY syr 07/02/17 Lactulose [Enulose] 20 gm PO DAILY PRN udc 07/02/17 Sildenafil [Revatio] 20 mg PO TID tab 07/02/17 traMADol [Ultram] 50 mg PO Q6 PRN #20 tab 07/02/17 Furosemide [Lasix] 40 mg PO DAILY tab 07/03/17 Lidocaine 5% [Lidoderm] 1 ea TD DAILY patch 07/03/17 - Allergies Allergies/Adverse Reactions: Allergies Allergy/AdvReac Type Severity Reaction Status Date / Time No Known Allergies Allergy Verified 07/17/17 00:29 Wells Criteria for PE - Wells Criteria for Pulmonary Embolism Clinical Signs and Symptoms of DVT: No P.E is #1 Diagnosis, or Equally Likely: No Heart Rate >100: No Immobilization at least 3 days;Surgery previous 4 weeks: No Previous, objectively diagnosed PE or DVT: No Hemoptysis: No Malignancy w/treatment within 6 months, or palliative: No Total Score: 0 Review of Systems ROS Statement: Except As Marked, All Systems Reviewed And Found Negative Cardiovascular: Negative for: Chest Pain Respiratory: Positive for: Shortness of Breath, Other (difficulty breathing). Negative for: Cough Musculoskeletal: Negative for: Other (leg swelling) Physical Exam - Reviewed Nursing Documentation Reviewed: Yes Vital Signs Reviewed: Yes - Physical Exam Appears: Positive for: No Acute Distress Head Exam: Positive for: ATRAUMATIC, NORMAL INSPECTION, NORMOCEPHALIC Skin: Positive for: Normal Color, Warm, Dry Eye Exam: Positive for: Normal appearance, EOMI, PERRL ENT: Positive for: Normal ENT Inspection Neck: Positive for: Normal Cardiovascular/Chest: Positive for: Regular Rate, Rhythm Respiratory: Positive for: Normal Breath Sounds. Negative for: Respiratory Distress Gastrointestinal/Abdominal: Positive for: Normal Exam Back: Positive for: Normal Inspection Extremity: Positive for: Normal ROM. Negative for: Deformity Neurologic/Psych: Positive for: Alert, Oriented (x 3) - Laboratory Results Result Diagrams: 07/17/17 01:53 07/17/17 01:53 - ECG ECG Rhythm: Positive for: Normal QRS, Sinus Rhythm (Normal). Negative for: ST/ T Changes Rate: 75 O2 Sat by Pulse Oximetry: 98 (RA) Pulse Ox Interpretation: Normal Medical Decision Making Medical Decision Making: Time: 00:49 Impression(s): Dyspnea Differentials include, but not limited to: CHF exacerbation, Pneumonia, COPD Exacerbation, Pulmonary hypertension Plan: - VBG Shock Panel - EKG - BNP - BMP - Troponin I - CBC - PTT - PT - Blood Culture - Influenza a/b Time: 00:59 - Tylenol 325 mg Tab Time: 01:13 - PTT - PT Time: 01:42 - Portable CXR Time: 02:45 - Lasux 40 mg IVP Time: 03:14 - Zosyn 3.375 gm Sodium Chloride 0.9% 100 ml IVPB Time: 03:17 - Cipro 400mg/200ml DSW Time: 03:19 - Admission Time: 03:37 - Call Cardiology Consult - Call Pulmonary Consult - Duoneb 3 mg/0.5 mg (3 ml) UD - Peak Flow Pre/Post Treatment [address] Norton who notified me that patient was admitted to Dr Singer in June. Discussed with Dr Singer who will accept the patient. Per patient her PCP is not Dr Gomez he is her gusset ripper. Scribe Attestation: Documented by Sotero Saldaña, acting as a scribe for Servando Boogie MD. Provider Scribe Attestation: All medical record entries made by the Scribe were at my direction and personally dictated by me. I have reviewed the chart and agree that the record accurately reflects my personal performance of the history, physical exam, medical decision making, and the department course for this patient. I have also personally directed, reviewed, and agree with the discharge instructions and disposition. Disposition - Clinical Impression Clinical Impression: CHF (congestive heart failure), COPD (chronic obstructive pulmonary disease) - Patient ED Disposition Is Patient to be Admitted: Yes Discussed With : Aleks Singer Counseled Patient/Family Regarding: Studies Performed, Diagnosis - Disposition Disposition Time: 03:00 Condition: FAIR - Pt Status Changed To: Hospital Disposition Of: Inpatient - Admit Certification Admit to Inpatient:: After my assessment, the patient will require hospitalization for at least two midnights. This is because of the severity of symptoms shown, intensity of services needed, and/or the medical risk in this patient being treated as an outpatient. - POA Present On Arrival: None
[2017-07-17 04:33] LABS: BANDS 1 % (0-2); LYMPHOCYTE 7 % (20-50); MONOCYTE 4 % (0-10); NEUTROPHIL 87 % (42-75); REACTIVE LYMPHOCYTES 1 % (0-0); TOTAL CELLS COUNTED 100
[2017-07-17 04:35] LABS: ANISOCYTOSIS SLIGHT
[2017-07-17 04:36] LABS: ACANTHOCYTES SLIGHT; HYPOCHROMIC SLIGHT; PLATELET ESTIMATE NORMAL (NORMAL)
[2017-07-17] MEDS ORDERED: Ciprofloxacin 400mg/200ml D5W 400 MG/200 ML BAG IVPB ONE (04:38)
[2017-07-17] MEDS ORDERED: Enoxaparin 30 mg Syringe SC SCH ×2 (09:00)
--- NOTE | 2017-07-17 09:41 | RAD ---
HISTORY: dyspnea COMPARISON: Chest radiograph dated 06/30/2017 FINDINGS: LUNGS: Stable chronic prominence of the bilateral interstitial markings with superimposed pulmonary vascular congestion not excluded. PLEURA: No significant pleural effusion identified, no pneumothorax apparent. CARDIOVASCULAR: Right subclavian access AICD/ pacemaker redemonstrated. Atherosclerotic aortic calcifications. Cardiomediastinal silhouette stably prominent. OSSEOUS STRUCTURES: Unchanged. VISUALIZED UPPER ABDOMEN: Normal. OTHER FINDINGS: Left axillary surgical clips redemonstrated. IMPRESSION: Stable chronic prominence of the bilateral interstitial markings with superimposed pulmonary vascular congestion not excluded. No focal consolidation or pleural effusion.
[2017-07-17] MEDS: Multivitamin With Minerals Tab PO SCH (09:59)
[2017-07-17] MEDS: Cholecalciferol 1,000 INTLU TAB PO SCH (10:00)
[2017-07-17] MEDS: Metoprolol Succinate 50 mg XL Tab PO SCH (10:01)
--- NOTE | 2017-07-17 10:02 | CP.PCM.CON ---
History of Present Illness - History of Present Illness History of Present Illness: This 81 year old female is known to me from prior hospitalization as well as the outpatient setting. She had recently been discharged, but developed increasing difficulty breathing despite continued compliance with her medical regimen. She was advised to take an extra dose of PO diuretic, but remained symptomatic resulting in return to the emergency room. She is a former cigarette smoker who does have underlying COPD, but also suffers from cardiomyopathy and pulmonary hypertension as well as prior breast cancer surgery. She did not complain of chest pain or cough, and did not have fever or chills. A chest x-ray in the ED did not show any evidence of pneumonia or pleural effusions, but did show increased interstitial markings suggesting likely vascular congestive pattern. Past Patient History - Infectious Disease Hx of Infectious Diseases: None - Tetanus Immunizations Tetanus Immunization: Unknown - Past Medical History & Family History Past Medical History?: Yes - Past Social History Smoking Status: Former Smoker (stopped 1982) Chewing Tobacco Use: No Cigar Use: No Alcohol: None Drugs: Denies Home Situation {Lives}: Alone - CARDIAC Hx Cardia Arrhythmia: Yes Hx Congestive Heart Failure: Yes Hx Heart Attack: Yes (x 2) Hx Hypercholesterolemia: Yes Hx Hypertension: Yes Hx Pacemaker: Yes (AICD) Hx Peripheral Edema: Yes - PULMONARY Hx Bronchitis: Yes Hx Chronic Obstructive Pulmonary Disease (COPD): Yes Hx Pneumonia: Yes Other/Comment: pulmonary hypertension - NEUROLOGICAL Hx Transient Ischemic Attacks (TIA): Yes Other/Comment: cognitive decline - HEENT Hx Cataracts: Yes Other/Comment: chronic mastoiditis, right. - RENAL Hx Chronic Kidney Disease: No - ENDOCRINE/METABOLIC Hx Hypothyroidism: Yes - HEMATOLOGICAL/ONCOLOGICAL Hx Blood Disorders: No Hx Cancer: Yes (breast) Hx Human Immunodeficiency Virus (HIV): No Other/Comment: RT - INTEGUMENTARY Hx Dermatological Problems: No - MUSCULOSKELETAL/RHEUMATOLOGICAL Hx Arthritis: Yes Hx Back Pain: Yes Hx Falls: No Hx Osteoporosis: Yes Hx Spinal Stenosis: Yes - GASTROINTESTINAL Hx Gastrointestinal Disorders: No - GENITOURINARY/GYNECOLOGICAL Hx Urinary Tract Infection: Yes (with sepsis) - PSYCHIATRIC Hx Psychophysiologic Disorder: No Hx Substance Use: No - SURGICAL HISTORY Hx Appendectomy: Yes Hx Cholecystectomy: Yes Hx Coronary Stent: Yes Hx Mastectomy: Yes (left) Other/Comment: AICD implant - ANESTHESIA Hx Anesthesia: Yes Hx Anesthesia Reactions: No Hx Malignant Hyperthermia: No Meds Allergies/Adverse Reactions: Allergies Allergy/AdvReac Type Severity Reaction Status Date / Time No Known Allergies Allergy Verified 07/17/17 00:29 - Medications Medications: Current Medications Amiodarone HCl (Cordarone) 200 mg PO DAILY [facility] Anastrozole (Arimidex 1 Mg Tab) 1 mg PO DAILY [facility] Ascorbic Acid (Vitamin C 500 Mg Tab) 500 mg PO DAILY [facility] Aspirin (Ecotrin) 81 mg PO DAILY [facility] Atorvastatin Calcium (Lipitor) 20 mg PO HS [facility] Calcium/Vitamin D (Oyster Shell Calcium/Vitamin D 500 Mg-200 Iu) 1 tab PO DAILY [facility] Cholecalciferol (Vitamin D) 1,000 intlu PO DAILY [facility] Docusate Sodium (Colace) 200 mg PO DAILY [facility] Enoxaparin Sodium (Lovenox) 40 mg SC DAILY [facility] PRN Reason: Protocol Furosemide (Lasix) 40 mg IVP DAILY [facility] Lactulose (Enulose) 20 gm PO DAILY PRN PRN Reason: Constipation Levothyroxine Sodium (Synthroid) 25 mcg PO DAILY@0630 [facility] Lidocaine (Lidoderm) 1 ea TD DAILY [facility] Losartan Potassium (Cozaar) 25 mg PO DAILY [facility] Memantine (Namenda) 10 mg PO DAILY [facility] Metoprolol Succinate (Toprol Xl) 50 mg PO DAILY [facility] Multivitamins/Minerals (Therapeutic-M Tab) 1 tab PO DAILY [facility] Sildenafil Citrate (Revatio) 20 mg PO TID [facility] Tramadol HCl (Ultram) 50 mg PO Q6 PRN PRN Reason: Pain, severe (8-10) Vitamin E (Vitamin E 400 Units Cap) 400 intlu PO DAILY [facility] Physical Exam - Additional Findings Additional findings: Well nourished and well developed, in no acute distress. Semi-upright in bed, conversant, well oriented x 3. No palpable lymphadenopathy, No visible JVD, no carotid bruit. Pharynx is pink, MM moist, no infiltrate. Conjunctivae pink, no scleral icterus. Nares patent bilaterally w/o bleeding . Neck is supple and trachea midline. No dullness on chest percussion, no subcut emphysema. Breath sounds are diminished bilaterally w/o audible wheezes. Few dry basal rales are present bilaterally, posteriorly. No bronchial breath sounds or egophony. Heart sounds are distant, rhythm regular, systolic murmur at base. Abdomen is soft and non-tender with normal bowel sounds. No dependant edema or cyanosis, no calf tenderness. Results - Vital Signs Recent Vital Signs: Last Vital Signs Temp 98.5 F 07/17/17 08:10 Pulse 61 07/17/17 08:10 Resp 18 07/17/17 08:10 BP 128/74 07/17/17 08:10 Pulse Ox 99 07/17/17 08:10 - Labs Result Diagrams: 07/18/17 05:00 07/18/17 05:00 Labs: Laboratory Results - last 24 hr 07/17/17 07/17/17 07/17/17 00:52 01:46 01:53 WBC RBC Hgb Hct MCV MCH MCHC RDW Plt Count MPV Neut % (Auto) Lymph % (Auto) [place] % (Auto) Eos % (Auto) Baso % (Auto) Neut # (Auto) Lymph # (Auto) [place] # (Auto) Eos # (Auto) Baso # (Auto) Neutrophils % (Manual) Band Neutrophils % Lymphocytes % (Manual) Reactive Lymphs % Monocytes % (Manual) Platelet Estimate Hypochromasia (manual) Anisocytosis (manual) Acanthocytes (Spur) PT INR APTT pO2 36 VBG pH 7.49 H VBG pCO2 40 VBG HCO3 29.4 VBG Total CO2 31.7 H VBG O2 Sat (Calc) 72.0 H VBG Base Excess 6.6 H VBG Potassium 3.7 Sodium 138.0 141 Chloride 104.0 99 Glucose 139 H Lactate 1.3 FiO2 21.0 Potassium 3.7 Carbon Dioxide 27 Anion Gap 19 BUN 23 H Creatinine 1.1 Est GFR ( Amer) 58 Est GFR (Non-Af Amer) 48 Random Glucose 127 H Calcium 8.8 Troponin I 0.0380 NT-Pro-B Natriuret Pep 93540 H Venous Blood Potassium 3.7 Influenza Typ A,B (EIA) Negative for flu a/b 07/17/17 07/17/17 01:53 01:53 WBC 15.9 H D RBC 3.51 L Hgb 11.3 L Hct 34.5 MCV 98.3 MCH 32.2 H MCHC 32.8 L RDW 13.9 Plt Count 220 MPV 8.4 Neut % (Auto) 80.6 H Lymph % (Auto) 8.4 L [place] % (Auto) 10.0 Eos % (Auto) 0.3 Baso % (Auto) 0.7 Neut # (Auto) 12.9 H Lymph # (Auto) 1.3 [place] # (Auto) 1.6 H Eos # (Auto) 0.0 Baso # (Auto) 0.1 Neutrophils % (Manual) 87 H Band Neutrophils % 1 Lymphocytes % (Manual) 7 L Reactive Lymphs % 1 H Monocytes % (Manual) 4 Platelet Estimate Normal Hypochromasia (manual) Slight Anisocytosis (manual) Slight Acanthocytes (Spur) Slight PT 11.7 INR 1.1 APTT 27.9 pO2 VBG pH VBG pCO2 VBG HCO3 VBG Total CO2 VBG O2 Sat (Calc) VBG Base Excess VBG Potassium Sodium Chloride Glucose Lactate FiO2 Potassium Carbon Dioxide Anion Gap BUN Creatinine Est GFR ( Amer) Est GFR (Non-Af Amer) Random Glucose Calcium Troponin I NT-Pro-B Natriuret Pep Venous Blood Potassium Influenza Typ A,B (EIA) Assessment & Plan (1) Leukocytosis Status: Acute Priority: High (2) Shortness of breath Status: Acute Priority: High (3) CHF (congestive heart failure) Status: Chronic Priority: High (4) COPD (chronic obstructive pulmonary disease) Status: Chronic Priority: Medium (5) Cardiomyopathy Status: Chronic Priority: High (6) Pulmonary hypertension Status: Chronic Priority: High - Assessment and Plan (Free Text) Plan: Followup chest x-ray 4 views. Supplemental oxygen to maintain SpO2 >=95%. Overnight oximetry on room air +/- ambulatory oxygenation.. Continue current medical regimen including sildenafil. Cardiology evaluation. - Date & Time Date: 07/17/17 Time: 10:01
[2017-07-17] MEDS: Sildenafil 20 MG TAB PO SCH ×3 (10:03→17:19)
[2017-07-17] MEDS: Lidocaine 5% Patch TD SCH (10:12)
[2017-07-17 12:58] LABS: SQUAMOUS EPITHIAL < 1 /hpf (0-5); URINE BILIRUBIN NEGATIVE (NEGATIVE); URINE BLOOD NEGATIVE (NEGATIVE); URINE CLARITY CLEAR (Clear); URINE COLOR STRAW (YELLOW); URINE GLUCOSE (UA) NEG (Normal); URINE LEUKOCYTE ESTERASE NEG Leu/uL (Negative); URINE PROTEIN NEGATIVE (NEGATIVE); URINE UROBILINOGEN 0.2-1.0 mg/dL (0.2-1.0)
--- NOTE | 2017-07-17 13:01 | CARD ---
APPROVED REPORT EKG Measurement Heart [id number] <Conclusion> Normal sinus rhythm Moderate voltage criteria for LVH, may be normal variant ST & T wave abnormality, consider lateral ischemia Abnormal ECG
[2017-07-17] MEDS: Enoxaparin 40 mg Syringe SC SCH (17:18)
[2017-07-17] MEDS: Calcium-Vit D 500 mg-200 Units Tab UD PO SCH (17:19)
--- NOTE | 2017-07-17 18:30 | CP.PCM.HP ---
History of Present Illness - History of Present Illness History of Present Illness: 81 yo female with history of Cardiomyopathy with IACD, COPD, Pulmonary HTN, Left Breast Cancer and CAD brought back because of SOB not relieved with PO Lasix. Called Dr Gomez who advised her to take an extra dose of Lasix. Aside from urinating a lot, her condition did not improved. She called 911 and was brought in by EMS to the ER. Present on Admission - Present on Admission Any Indicators Present on Admission: No History of DVT/PE: No History of Uncontrolled Diabetes: No Urinary Catheter: No Decubitus Ulcer Present: No Review of Systems - Review of Systems All systems: reviewed and no additional remarkable complaints except (aside from those mentioned above, 12 point system review were negative by me) Past Patient History - Infectious Disease Hx of Infectious Diseases: None - Tetanus Immunizations Tetanus Immunization: Unknown - Past Medical History & Family History Past Medical History?: Yes - Past Social History Smoking Status: Former Smoker Chewing Tobacco Use: No Cigar Use: No Alcohol: None - CARDIAC Hx Cardiac Disorders: Yes Hx Cardia Arrhythmia: Yes Hx Congestive Heart Failure: Yes Hx Hypercholesterolemia: Yes Hx Hypertension: Yes Hx Pacemaker: Yes (AICD) Hx Peripheral Edema: Yes - PULMONARY Hx Respiratory Disorders: Yes Hx Bronchitis: Yes Hx Chronic Obstructive Pulmonary Disease (COPD): Yes Hx Pneumonia: Yes - NEUROLOGICAL Hx Neurological Disorder: Yes Hx Transient Ischemic Attacks (TIA): Yes - HEENT Hx HEENT Problems: Yes Hx Cataracts: Yes - RENAL Hx Chronic Kidney Disease: No - ENDOCRINE/METABOLIC Hx Endocrine Disorders: Yes Hx Hypothyroidism: Yes - HEMATOLOGICAL/ONCOLOGICAL Hx Blood Disorders: No Hx Human Immunodeficiency Virus (HIV): No - INTEGUMENTARY Hx Dermatological Problems: No - MUSCULOSKELETAL/RHEUMATOLOGICAL Hx Musculoskeletal Disorders: Yes Hx Arthritis: Yes Hx Back Pain: Yes Hx Falls: No Hx Osteoporosis: Yes Hx Rheumatoid Arthritis: No - GASTROINTESTINAL Hx Gastrointestinal Disorders: No - GENITOURINARY/GYNECOLOGICAL Hx Genitourinary Disorders: Yes Hx Urinary Tract Infection: Yes (with sepsis) - PSYCHIATRIC Hx Psychophysiologic Disorder: No Hx Substance Use: No - SURGICAL HISTORY Hx Surgeries: Yes Hx Appendectomy: Yes Hx Cholecystectomy: Yes Hx Coronary Stent: Yes - ANESTHESIA Hx Anesthesia: Yes Hx Anesthesia Reactions: No Hx Malignant Hyperthermia: No Meds Allergies/Adverse Reactions: Allergies Allergy/AdvReac Type Severity Reaction Status Date / Time No Known Allergies Allergy Verified 07/17/17 00:29 Physical Exam - Constitutional Appears: No Acute Distress - Head Exam Head Exam: ATRAUMATIC - Eye Exam Eye Exam: absent: Scleral icterus - ENT Exam ENT Exam: Mucous Membranes Moist - Neck Exam Neck exam: Negative for: Meningismus - Respiratory Exam Respiratory Exam: Decreased Breath Sounds. absent: Rales, Rhonchi, Wheezes, Respiratory Distress - Cardiovascular Exam Cardiovascular Exam: REGULAR RHYTHM, +S1, +S2 - GI/Abdominal Exam GI & Abdominal Exam: Soft. absent: Tenderness - Rectal Exam Rectal Exam: Deferred - Extremities Exam Extremities exam: Negative for: calf tenderness, pedal edema - Back Exam Back exam: NORMAL INSPECTION - Neurological Exam Neurological exam: Alert, Oriented x3 - Psychiatric Exam Psychiatric exam: Normal Affect - Skin Skin Exam: Dry, Intact Results - Vital Signs Recent Vital Signs: Last Vital Signs Temp 97.5 F L 07/17/17 15:35 Pulse 59 L 07/17/17 15:35 Resp 20 07/17/17 15:35 BP 93/57 L 07/17/17 15:35 Pulse Ox 98 07/17/17 15:35 - Labs Result Diagrams: 07/17/17 01:53 07/17/17 01:53 Labs: Laboratory Results - last 24 hr 07/17/17 07/17/17 07/17/17 00:52 01:46 01:53 WBC RBC Hgb Hct MCV MCH MCHC RDW Plt Count MPV Neut % (Auto) Lymph % (Auto) Brown % (Auto) Eos % (Auto) Baso % (Auto) Neut # (Auto) Lymph # (Auto) Brown # (Auto) Eos # (Auto) Baso # (Auto) Neutrophils % (Manual) Band Neutrophils % Lymphocytes % (Manual) Reactive Lymphs % Monocytes % (Manual) Platelet Estimate Hypochromasia (manual) Anisocytosis (manual) Acanthocytes (Spur) PT INR APTT pO2 36 VBG pH 7.49 H VBG pCO2 40 VBG HCO3 29.4 VBG Total CO2 31.7 H VBG O2 Sat (Calc) 72.0 H VBG Base Excess 6.6 H VBG Potassium 3.7 Sodium 138.0 141 Chloride 104.0 99 Glucose 139 H Lactate 1.3 FiO2 21.0 Potassium 3.7 Carbon Dioxide 27 Anion Gap 19 BUN 23 H Creatinine 1.1 Est GFR ( Amer) 58 Est GFR (Non-Af Amer) 48 Random Glucose 127 H Calcium 8.8 Troponin I 0.0380 NT-Pro-B Natriuret Pep 26303 H Venous Blood Potassium 3.7 Urine Color Urine Clarity Urine pH Ur Specific [place] Urine Protein Urine Glucose (UA) Urine Ketones Urine Blood Urine Nitrate Urine Bilirubin Urine Urobilinogen Ur Leukocyte Esterase Urine RBC (Auto) Ur Squamous Epith Cells Influenza Typ A,B (EIA) Negative for flu a/b 07/17/17 07/17/17 07/17/17 01:53 01:53 11:53 WBC 15.9 H D RBC 3.51 L Hgb 11.3 L Hct 34.5 MCV 98.3 MCH 32.2 H MCHC 32.8 L RDW 13.9 Plt Count 220 MPV 8.4 Neut % (Auto) 80.6 H Lymph % (Auto) 8.4 L Brown % (Auto) 10.0 Eos % (Auto) 0.3 Baso % (Auto) 0.7 Neut # (Auto) 12.9 H Lymph # (Auto) 1.3 Brown # (Auto) 1.6 H Eos # (Auto) 0.0 Baso # (Auto) 0.1 Neutrophils % (Manual) 87 H Band Neutrophils % 1 Lymphocytes % (Manual) 7 L Reactive Lymphs % 1 H Monocytes % (Manual) 4 Platelet Estimate Normal Hypochromasia (manual) Slight Anisocytosis (manual) Slight Acanthocytes (Spur) Slight PT 11.7 INR 1.1 APTT 27.9 pO2 VBG pH VBG pCO2 VBG HCO3 VBG Total CO2 VBG O2 Sat (Calc) VBG Base Excess VBG Potassium Sodium Chloride Glucose Lactate FiO2 Potassium Carbon Dioxide Anion Gap BUN Creatinine Est GFR ( Amer) Est GFR (Non-Af Amer) Random Glucose Calcium Troponin I NT-Pro-B Natriuret Pep Venous Blood Potassium Urine Color Straw Urine Clarity Clear Urine pH 6.0 Ur Specific [place] 1.009 Urine Protein Negative Urine Glucose (UA) Neg Urine Ketones Negative Urine Blood Negative Urine Nitrate Negative Urine Bilirubin Negative Urine Urobilinogen 0.2-1.0 Ur Leukocyte Esterase Neg Urine RBC (Auto) < 1 Ur Squamous Epith Cells < 1 Influenza Typ A,B (EIA) Assessment & Plan - Assessment and Plan (Free Text) Assessment: 81 yo female with history of Cardiomyopathy with IACD, COPD, Pulmonary HTN, Left Breast Cancer and CAD brought back because of SOB not relieved with PO Lasix. Called Dr Gomez who advised her to take an extra dose of Lasix. Aside from urinating a lot, her condition did not improved. She called 911 and was brought in by EMS to the ER. 1. CHF exacerbation Systolic and Diastolic Dysfunction continue Amiodarone, Lasix and Losartan cardiology consult with Dr Da Silva 2. COPD continue Duoneb via nebulizer q 4hrs prn 3. Leukocytosis Afebrile blood culture and urine culture sent repeat CBC in am 4. Pulmonary HTN continue Sildenafil 20mg PO TID
[2017-07-18] MEDS: Levothyroxine 25 MCG TAB PO SCH (05:46)
[2017-07-18 06:31] LABS: BASO # 0.1 K/uL (0.0-0.2); BASO % 1.1 % (0.0-2.0); EOS # 0.3 K/uL (0.0-0.7); EOS % 2.4 % (0.0-4.0); HEMOGLOBIN 11.3 g/dL (12.0-16.0); LYMPH # 2.2 K/uL (1.0-4.3); LYMPH % 19.1 % (20.0-40.0); MEAN CELL VOLUME 99.1 fl (81.0-99.0); MEAN CORPUSCULAR HEMOGLOBIN 32.7 pg (27.0-31.0); MEAN PLATELET VOLUME 8.2 fl (7.2-11.7); MONO # 1.5 K/uL (0.0-0.8); MONO % 12.7 % (0.0-10.0); NEUT # 7.6 K/uL (1.8-7.0); NEUT % 64.7 % (50.0-75.0); NRBC % 0.2 % (0.0-0.0); RBC 3.44 Mil/uL (3.80-5.20); RED CELL DISTRIBUTION WIDTH 14.4 % (11.5-14.5); WHITE BLOOD COUNT 11.7 K/uL (4.8-10.8)
[2017-07-18 06:52] LABS: ALB/GLOB RATIO 1.1 (1.0-2.1); ALBUMIN 3.8 g/dL (3.5-5.0); CALCIUM 8.7 mg/dL (8.4-10.2)
[2017-07-18] MEDS: Multivitamin With Minerals Tab PO SCH (08:40)
[2017-07-18] MEDS: Enoxaparin 40 mg Syringe SC SCH (08:42)
[2017-07-18] MEDS: Metoprolol Succinate 50 mg XL Tab PO SCH (08:42)
[2017-07-18] MEDS: Cholecalciferol 1,000 INTLU TAB PO SCH (08:42)
[2017-07-18] MEDS: Calcium-Vit D 500 mg-200 Units Tab UD PO SCH (08:43)
[2017-07-18] MEDS: Sildenafil 20 MG TAB PO SCH ×3 (08:43→16:17)
[2017-07-18] MEDS: Lidocaine 5% Patch TD SCH (08:44)
--- NOTE | 2017-07-18 14:14 | CP.PCM.CON ---
History of Present Illness - History of Present Illness History of Present Illness: consultation for evaluation of CHF HPI: Ashanti Pena is a 81-year-old female who has been followed by me for the last 5 years known history of coronary artery disease status post acute myocardial infarction of anterior wall requiring angioplasty back in 2011 and ischemic cardiomyopathy ejection fraction of 3035% ventricular tachycardia status post ablation with ICD placement was maintained on amiodarone and had recurrent episodes of heart failure exacerbation who presents with complaining of shortness of breath she was recently discharged home after a bout of CHF exacerbation was maintained on increased dose of oral diuretic therapy. On last hospitalization she had right heart cath showing pulmonary hypertension which was responsive to IV milrinone therapy and subsequently was initiated on sildenafil on this presentation she was noted to have pulmonary vascular congestion with interstitial markings and elevated BNP of 11,000. Review of Systems - Review of Systems Systems not reviewed;Unavailable: Acuity of Condition - Constitutional Constitutional: As Per HPI - EENT Eyes: As Per HPI Ears: As Per HPI Nose/Mouth/Throat: As Per HPI - Breasts Breasts: As Per HPI - Cardiovascular Cardiovascular: As Per HPI - Respiratory Respiratory: As Per HPI - Gastrointestinal Gastrointestinal: As Per HPI - Genitourinary Genitourinary: As Per HPI - Reproductive: Female Reproductive:Female: As Per HPI - Menstruation Menstruation: As Per HPI - Musculoskeletal Musculoskeletal: As Per HPI - Integumentary Integumentary: As Per HPI - Neurological Neurological: As Per HPI - Psychiatric Psychiatric: As Per HPI - Endocrine Endocrine: As Per HPI - Hematologic/Lymphatic Hematologic: As Per HPI Past Patient History - Infectious Disease Hx of Infectious Diseases: None - Tetanus Immunizations Tetanus Immunization: Unknown - Past Medical History & Family History Past Medical History?: Yes - Past Social History Smoking Status: Former Smoker (stopped 1982) Chewing Tobacco Use: No Cigar Use: No Alcohol: None Drugs: Denies Home Situation {Lives}: Alone - CARDIAC Hx Cardia Arrhythmia: Yes Hx Congestive Heart Failure: Yes Hx Heart Attack: Yes (x 2) Hx Hypercholesterolemia: Yes Hx Hypertension: Yes Hx Pacemaker: Yes (AICD) Hx Peripheral Edema: Yes - PULMONARY Hx Bronchitis: Yes Hx Chronic Obstructive Pulmonary Disease (COPD): Yes Hx Pneumonia: Yes Other/Comment: pulmonary hypertension - NEUROLOGICAL Hx Transient Ischemic Attacks (TIA): Yes Other/Comment: cognitive decline - HEENT Hx Cataracts: Yes Other/Comment: chronic mastoiditis, right. - RENAL Hx Chronic Kidney Disease: No - ENDOCRINE/METABOLIC Hx Hypothyroidism: Yes - HEMATOLOGICAL/ONCOLOGICAL Hx Blood Disorders: No Hx Cancer: Yes (breast) Hx Human Immunodeficiency Virus (HIV): No Other/Comment: RT - INTEGUMENTARY Hx Dermatological Problems: No - MUSCULOSKELETAL/RHEUMATOLOGICAL Hx Arthritis: Yes Hx Back Pain: Yes Hx Falls: No Hx Osteoporosis: Yes Hx Spinal Stenosis: Yes - GASTROINTESTINAL Hx Gastrointestinal Disorders: No - GENITOURINARY/GYNECOLOGICAL Hx Urinary Tract Infection: Yes (with sepsis) - PSYCHIATRIC Hx Psychophysiologic Disorder: No Hx Substance Use: No - SURGICAL HISTORY Hx Appendectomy: Yes Hx Cholecystectomy: Yes Hx Coronary Stent: Yes Hx Mastectomy: Yes (left) Other/Comment: AICD implant - ANESTHESIA Hx Anesthesia: Yes Hx Anesthesia Reactions: No Hx Malignant Hyperthermia: No Meds Allergies/Adverse Reactions: Allergies Allergy/AdvReac Type Severity Reaction Status Date / Time No Known Allergies Allergy Verified 07/17/17 00:29 - Medications Medications: Current Medications Amiodarone HCl (Cordarone) 200 mg PO DAILY [facility] Last Admin: 07/18/17 08:41 Dose: 200 mg Anastrozole (Arimidex 1 Mg Tab) 1 mg PO DAILY [facility] Last Admin: 07/18/17 08:47 Dose: 1 mg Ascorbic Acid (Vitamin C 500 Mg Tab) 500 mg PO DAILY [facility] Last Admin: 07/18/17 08:41 Dose: 500 mg Aspirin (Ecotrin) 81 mg PO DAILY [facility] Last Admin: 07/18/17 08:42 Dose: 81 mg Atorvastatin Calcium (Lipitor) 20 mg PO HS [facility] Last Admin: 07/17/17 21:45 Dose: 20 mg Calcium/Vitamin D (Oyster Shell Calcium/Vitamin D 500 Mg-200 Iu) 1 tab PO DAILY [facility] Last Admin: 07/18/17 08:43 Dose: 1 tab Cholecalciferol (Vitamin D) 1,000 intlu PO DAILY [facility] Last Admin: 07/18/17 08:42 Dose: 1,000 intlu Docusate Sodium (Colace) 200 mg PO DAILY [facility] Last Admin: 07/17/17 10:15 Dose: 200 mg Enoxaparin Sodium (Lovenox) 40 mg SC DAILY [facility] PRN Reason: Protocol Last Admin: 07/18/17 08:42 Dose: 40 mg Furosemide (Lasix) 40 mg IVP DAILY [facility] Last Admin: 07/18/17 08:43 Dose: 40 mg Lactulose (Enulose) 20 gm PO DAILY PRN PRN Reason: Constipation Levothyroxine Sodium (Synthroid) 25 mcg PO DAILY@0630 [facility] Last Admin: 07/18/17 05:46 Dose: 25 mcg Lidocaine (Lidoderm) 1 ea TD DAILY [facility] Last Admin: 07/18/17 08:44 Dose: 1 ea Losartan Potassium (Cozaar) 25 mg PO DAILY [facility] Last Admin: 07/18/17 08:41 Dose: 25 mg Memantine (Namenda) 10 mg PO DAILY [facility] Last Admin: 07/18/17 08:41 Dose: 10 mg Metoprolol Succinate (Toprol Xl) 50 mg PO DAILY [facility] Last Admin: 07/18/17 08:42 Dose: 50 mg Multivitamins/Minerals (Therapeutic-M Tab) 1 tab PO DAILY [facility] Last Admin: 07/18/17 08:40 Dose: 1 tab Sildenafil Citrate (Revatio) 20 mg PO TID [facility] Last Admin: 07/18/17 08:43 Dose: 20 mg Tramadol HCl (Ultram) 50 mg PO Q6 PRN PRN Reason: Pain, severe (8-10) Vitamin E (Vitamin E 400 Units Cap) 400 intlu PO DAILY [facility] Last Admin: 07/18/17 08:40 Dose: 400 intlu Physical Exam - Constitutional Appears: Well - Head Exam Head Exam: ATRAUMATIC, NORMAL INSPECTION, NORMOCEPHALIC - Eye Exam Eye Exam: EOMI, Normal appearance, PERRL Pupil Exam: NORMAL ACCOMODATION, PERRL - ENT Exam ENT Exam: Mucous Membranes Moist, Normal Exam - Neck Exam Neck exam: Positive for: Normal Inspection - Respiratory Exam Respiratory Exam: Clear to Auscultation Bilateral, NORMAL BREATHING PATTERN - Cardiovascular Exam Cardiovascular Exam: REGULAR RHYTHM - GI/Abdominal Exam GI & Abdominal Exam: Normal Bowel Sounds, Soft. absent: Tenderness - Extremities Exam Extremities exam: Positive for: normal inspection - Back Exam Back exam: NORMAL INSPECTION - Neurological Exam Neurological exam: Alert, CN II-XII Intact, Normal Gait, Oriented x3, Reflexes Normal - Psychiatric Exam Psychiatric exam: Normal Affect, Normal Mood - Skin Skin Exam: Dry, Intact, Normal Color, Warm Results - Vital Signs Recent Vital Signs: Last Vital Signs Temp 97.7 F 07/18/17 12:31 Pulse 59 L 07/18/17 12:31 Resp 18 07/18/17 12:31 BP 105/68 07/18/17 12:31 Pulse Ox 96 07/18/17 12:31 - Labs Result Diagrams: 07/18/17 05:00 07/18/17 05:00 Labs: Laboratory Results - last 24 hr 07/18/17 07/18/17 07/18/17 05:00 05:00 10:30 WBC 11.7 H RBC 3.44 L Hgb 11.3 L Hct 34.1 MCV 99.1 H MCH 32.7 H MCHC 33.0 RDW 14.4 Plt Count 219 MPV 8.2 Neut % (Auto) 64.7 Lymph % (Auto) 19.1 L [place] % (Auto) 12.7 H Eos % (Auto) 2.4 Baso % (Auto) 1.1 Neut # (Auto) 7.6 H Lymph # (Auto) 2.2 [place] # (Auto) 1.5 H Eos # (Auto) 0.3 Baso # (Auto) 0.1 Sodium 141 Potassium 3.8 Chloride 99 Carbon Dioxide 29 Anion Gap 17 BUN 26 H Creatinine 1.4 H Est GFR ( Amer) 44 Est GFR (Non-Af Amer) 36 Random Glucose 95 Calcium 8.7 Total Bilirubin 0.5 AST 50 H D ALT 58 H D Alkaline Phosphatase 50 Troponin I 0.0150 Total Protein 7.1 Albumin 3.8 Globulin 3.3 Albumin/Globulin Ratio 1.1 Assessment & Plan (1) CHF (congestive heart failure) Assessment and Plan: cont IV lasix cont amio cont bb, arb plan for IV milrione at 0.375 mcg/kg Status: Chronic Priority: High (2) COPD (chronic obstructive pulmonary disease) Status: Chronic Priority: Medium (3) Chest pain Status: Acute (4) Pulmonary hypertension Status: Chronic Priority: High
[2017-07-18] MEDS: Milrinone 20mg/100ml D5W 100 ML IV SCH (15:17)
--- NOTE | 2017-07-18 15:27 | CP.PCM.PN ---
Subjective - Date & Time of Evaluation Date of Evaluation: 07/18/17 Time of Evaluation: 13:00 - Subjective Subjective: Patient seen and examined. [place] better. Denied SOB or chest pain. Objective - Vital Signs/Intake and Output Vital Signs (last 24 hours): Temp Pulse Resp BP Pulse Ox 97.7 F 59 L 18 105/68 96 07/18/17 12:31 07/18/17 12:31 07/18/17 12:31 07/18/17 12:31 07/18/17 12:31 - Medications Medications: Current Medications Amiodarone HCl (Cordarone) 200 mg PO DAILY [facility] Last Admin: 07/18/17 08:41 Dose: 200 mg Anastrozole (Arimidex 1 Mg Tab) 1 mg PO DAILY [facility] Last Admin: 07/18/17 08:47 Dose: 1 mg Ascorbic Acid (Vitamin C 500 Mg Tab) 500 mg PO DAILY [facility] Last Admin: 07/18/17 08:41 Dose: 500 mg Aspirin (Ecotrin) 81 mg PO DAILY [facility] Last Admin: 07/18/17 08:42 Dose: 81 mg Atorvastatin Calcium (Lipitor) 20 mg PO HS [facility] Last Admin: 07/17/17 21:45 Dose: 20 mg Calcium/Vitamin D (Oyster Shell Calcium/Vitamin D 500 Mg-200 Iu) 1 tab PO DAILY [facility] Last Admin: 07/18/17 08:43 Dose: 1 tab Cholecalciferol (Vitamin D) 1,000 intlu PO DAILY [facility] Last Admin: 07/18/17 08:42 Dose: 1,000 intlu Docusate Sodium (Colace) 200 mg PO DAILY [facility] Last Admin: 07/17/17 10:15 Dose: 200 mg Enoxaparin Sodium (Lovenox) 40 mg SC DAILY [facility] PRN Reason: Protocol Last Admin: 07/18/17 08:42 Dose: 40 mg Furosemide (Lasix) 40 mg IVP DAILY [facility] Last Admin: 07/18/17 08:43 Dose: 40 mg Milrinone Lactate/Dextrose (Primacor 20mg/100ml D5w) 100 mls @ 7.471 mls/hr IV .[id number] [facility]; 0.375 MCG/KG/MIN PRN Reason: Protocol Last Admin: 07/18/17 15:17 Dose: 0.375 mcg/kg/min, 7.471 mls/hr Lactulose (Enulose) 20 gm PO DAILY PRN PRN Reason: Constipation Levothyroxine Sodium (Synthroid) 25 mcg PO DAILY@0630 [facility] Last Admin: 07/18/17 05:46 Dose: 25 mcg Lidocaine (Lidoderm) 1 ea TD DAILY [facility] Last Admin: 07/18/17 08:44 Dose: 1 ea Losartan Potassium (Cozaar) 25 mg PO DAILY [facility] Last Admin: 07/18/17 08:41 Dose: 25 mg Memantine (Namenda) 10 mg PO DAILY [facility] Last Admin: 07/18/17 08:41 Dose: 10 mg Metoprolol Succinate (Toprol Xl) 50 mg PO DAILY [facility] Last Admin: 07/18/17 08:42 Dose: 50 mg Multivitamins/Minerals (Therapeutic-M Tab) 1 tab PO DAILY [facility] Last Admin: 07/18/17 08:40 Dose: 1 tab Sildenafil Citrate (Revatio) 20 mg PO TID [facility] Last Admin: 07/18/17 08:43 Dose: 20 mg Tramadol HCl (Ultram) 50 mg PO Q6 PRN PRN Reason: Pain, severe (8-10) Vitamin E (Vitamin E 400 Units Cap) 400 intlu PO DAILY [facility] Last Admin: 07/18/17 08:40 Dose: 400 intlu - Labs Labs: 07/18/17 05:00 07/18/17 05:00 PT 11.7 Seconds (9.8-13.1) 07/17/17 01:53 INR 1.1 (0.9-1.2) 07/17/17 01:53 APTT 27.9 Seconds (25.6-37.1) 07/17/17 01:53 - Constitutional Appears: No Acute Distress - Head Exam Head Exam: ATRAUMATIC - Eye Exam Eye Exam: absent: Scleral icterus - ENT Exam ENT Exam: Mucous Membranes Moist - Neck Exam Neck Exam: absent: Meningismus - Respiratory Exam Respiratory Exam: absent: Rales, Rhonchi, Wheezes, Respiratory Distress - Cardiovascular Exam Cardiovascular Exam: REGULAR RHYTHM, +S1, +S2 - GI/Abdominal Exam GI & Abdominal Exam: Soft. absent: Tenderness - Rectal Exam Rectal Exam: Deferred - Extremities Exam Extremities Exam: absent: Calf Tenderness, Pedal Edema - Back Exam Back Exam: absent: tenderness - Neurological Exam Neurological Exam: Alert, Normal Gait - Psychiatric Exam Psychiatric exam: Normal Affect - Skin Skin Exam: Dry, Intact Assessment and Plan - Assessment and Plan (Free Text) Assessment: 81 yo female with history of Cardiomyopathy with IACD, COPD, Pulmonary HTN, Left Breast Cancer and CAD brought back because of SOB not relieved with PO Lasix. Called Dr Gomez who advised her to take an extra dose of Lasix. Aside from urinating a lot, her condition did not improved. She called 911 and was brought in by EMS to the ER. 1. 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 COPD continue Duoneb via nebulizer q 4hrs prn 3. Leukocytosis probably stress induced from CHF exacerbation improving 4. Pulmonary HTN continue Sildenafil 20mg PO TID
[2017-07-19] MEDS: Levothyroxine 25 MCG TAB PO SCH (06:11)
[2017-07-19] MEDS: Milrinone 20mg/100ml D5W 100 ML IV SCH (06:20)
--- NOTE | 2017-07-19 08:16 | CP.PCM.PN ---
Subjective - Date & Time of Evaluation Date of Evaluation: 07/19/17 Time of Evaluation: 08:14 - Subjective Subjective: Seated upright in bed eating breakfast. Claims her breathing has improved significantly. No cough, chest pain or orthopnea. Vital signs have remained stable, afebrile. Started on milrinone yesterday by cardiology. Awaiting repeat chest x-ray today. Leukocytosis has decreased to 11. No dependant edema, no cyanosis. Neck is supple and trachea midline. No neck vein distension seen. No dullness on chest percussion. Breath sounds appear improved in the lung bases posteriorly. Only a few dry rales are hear in the bases now. No audible wheezes or bronchial breath sounds. Heart sounds are well heard, regular. Abdomen is soft and non-tender. Improved congestive hearty failure. Pulmonary hypertension treated with PDE-5i. Comorbid COPD, hypertension, hypothyroidism and cardiac arrhythmia. Continue present medical management. Repeat CXR today with decubitus views. Overnight oximetry recording planned. Objective - Vital Signs/Intake and Output Vital Signs (last 24 hours): Temp Pulse Resp BP Pulse Ox 98.5 F 63 18 145/69 97 07/19/17 08:13 07/19/17 08:13 07/19/17 08:13 07/19/17 08:13 07/19/17 08:13 Intake and Output: 07/18/17 07/19/17 23:59 11:59 Intake Total 550 190 Balance 550 190 - Medications Medications: Current Medications Amiodarone HCl (Cordarone) 200 mg PO DAILY [facility] Last Admin: 07/18/17 08:41 Dose: 200 mg Anastrozole (Arimidex 1 Mg Tab) 1 mg PO DAILY [facility] Last Admin: 07/18/17 08:47 Dose: 1 mg Ascorbic Acid (Vitamin C 500 Mg Tab) 500 mg PO DAILY [facility] Last Admin: 07/18/17 08:41 Dose: 500 mg Aspirin (Ecotrin) 81 mg PO DAILY [facility] Last Admin: 07/18/17 08:42 Dose: 81 mg Atorvastatin Calcium (Lipitor) 20 mg PO HS [facility] Last Admin: 07/18/17 21:35 Dose: 20 mg Calcium/Vitamin D (Oyster Shell Calcium/Vitamin D 500 Mg-200 Iu) 1 tab PO DAILY [facility] Last Admin: 07/18/17 08:43 Dose: 1 tab Cholecalciferol (Vitamin D) 1,000 intlu PO DAILY [facility] Last Admin: 07/18/17 08:42 Dose: 1,000 intlu Docusate Sodium (Colace) 200 mg PO DAILY [facility] Last Admin: 07/18/17 15:38 Dose: 200 mg Enoxaparin Sodium (Lovenox) 40 mg SC DAILY [facility] PRN Reason: Protocol Last Admin: 07/18/17 08:42 Dose: 40 mg Furosemide (Lasix) 40 mg IVP DAILY [facility] Last Admin: 07/18/17 08:43 Dose: 40 mg Milrinone Lactate/Dextrose (Primacor 20mg/100ml D5w) 100 mls @ 7.471 mls/hr IV .[id number] [facility]; 0.375 MCG/KG/MIN PRN Reason: Protocol Last Admin: 07/19/17 06:20 Dose: 0.375 mcg/kg/min, 7.471 mls/hr Lactulose (Enulose) 20 gm PO DAILY PRN PRN Reason: Constipation Levothyroxine Sodium (Synthroid) 25 mcg PO DAILY@0630 [facility] Last Admin: 07/19/17 06:11 Dose: 25 mcg Lidocaine (Lidoderm) 1 ea TD DAILY [facility] Last Admin: 07/18/17 08:44 Dose: 1 ea Losartan Potassium (Cozaar) 25 mg PO DAILY [facility] Last Admin: 07/18/17 08:41 Dose: 25 mg Memantine (Namenda) 10 mg PO DAILY [facility] Last Admin: 07/18/17 08:41 Dose: 10 mg Metoprolol Succinate (Toprol Xl) 50 mg PO DAILY [facility] Last Admin: 07/18/17 08:42 Dose: 50 mg Multivitamins/Minerals (Therapeutic-M Tab) 1 tab PO DAILY [facility] Last Admin: 07/18/17 08:40 Dose: 1 tab Sildenafil Citrate (Revatio) 20 mg PO TID [facility] Last Admin: 07/18/17 16:17 Dose: 20 mg Tramadol HCl (Ultram) 50 mg PO Q6 PRN PRN Reason: Pain, severe (8-10) Vitamin E (Vitamin E 400 Units Cap) 400 intlu PO DAILY [facility] Last Admin: 07/18/17 08:40 Dose: 400 intlu - Labs Labs: 07/18/17 05:00 07/18/17 05:00 PT 11.7 Seconds (9.8-13.1) 07/17/17 01:53 INR 1.1 (0.9-1.2) 07/17/17 01:53 APTT 27.9 Seconds (25.6-37.1) 07/17/17 01:53 Assessment and Plan (1) Leukocytosis Status: Acute (2) Shortness of breath Status: Resolved (3) CHF (congestive heart failure) Assessment & Plan: Improved with diuretic therapy. Primacor also added to regimen. Status: Chronic (4) COPD (chronic obstructive pulmonary disease) Status: Chronic (5) Cardiomyopathy Status: Chronic (6) Pulmonary hypertension Status: Chronic - Assessment and Plan (Free Text) Assessment: Improved with use of sildenafil.
[2017-07-19] MEDS: Enoxaparin 40 mg Syringe SC SCH (08:19)
[2017-07-19] MEDS: Sildenafil 20 MG TAB PO SCH ×3 (08:20→16:11)
[2017-07-19] MEDS: Multivitamin With Minerals Tab PO SCH (08:20)
[2017-07-19] MEDS: Cholecalciferol 1,000 INTLU TAB PO SCH (08:21)
[2017-07-19] MEDS: Calcium-Vit D 500 mg-200 Units Tab UD PO SCH (08:21)
[2017-07-19] MEDS: Metoprolol Succinate 50 mg XL Tab PO SCH (08:22)
[2017-07-19] MEDS: Lidocaine 5% Patch TD SCH (08:23)
--- NOTE | 2017-07-19 10:42 | CP.PCM.PN ---
Subjective - Date & Time of Evaluation Date of Evaluation: 07/19/17 Time of Evaluation: 10:41 - Subjective Subjective: clinically feeling better cxray improving no labs today Objective - Vital Signs/Intake and Output Vital Signs (last 24 hours): Temp Pulse Resp BP Pulse Ox 98.5 F 63 18 145/69 97 07/19/17 08:13 07/19/17 08:22 07/19/17 08:13 07/19/17 08:22 07/19/17 08:13 Intake and Output: 07/19/17 07/19/17 06:59 18:59 Intake Total 190 Balance 190 - Medications Medications: Current Medications Amiodarone HCl (Cordarone) 200 mg PO DAILY [facility] Last Admin: 07/19/17 08:21 Dose: 200 mg Anastrozole (Arimidex 1 Mg Tab) 1 mg PO DAILY [facility] Last Admin: 07/19/17 08:25 Dose: 1 mg Ascorbic Acid (Vitamin C 500 Mg Tab) 500 mg PO DAILY [facility] Last Admin: 07/19/17 08:21 Dose: 500 mg Aspirin (Ecotrin) 81 mg PO DAILY [facility] Last Admin: 07/19/17 08:23 Dose: 81 mg Atorvastatin Calcium (Lipitor) 20 mg PO HS [facility] Last Admin: 07/18/17 21:35 Dose: 20 mg Calcium/Vitamin D (Oyster Shell Calcium/Vitamin D 500 Mg-200 Iu) 1 tab PO DAILY [facility] Last Admin: 07/19/17 08:21 Dose: 1 tab Cholecalciferol (Vitamin D) 1,000 intlu PO DAILY [facility] Last Admin: 07/19/17 08:21 Dose: 1,000 intlu Docusate Sodium (Colace) 200 mg PO DAILY [facility] Last Admin: 07/19/17 08:24 Dose: 200 mg Enoxaparin Sodium (Lovenox) 40 mg SC DAILY [facility] PRN Reason: Protocol Last Admin: 07/19/17 08:19 Dose: 40 mg Furosemide (Lasix) 40 mg IVP DAILY [facility] Last Admin: 07/19/17 08:19 Dose: 40 mg Milrinone Lactate/Dextrose (Primacor 20mg/100ml D5w) 100 mls @ 7.471 mls/hr IV .[id number] [facility]; 0.375 MCG/KG/MIN PRN Reason: Protocol Last Admin: 07/19/17 06:20 Dose: 0.375 mcg/kg/min, 7.471 mls/hr Lactulose (Enulose) 20 gm PO DAILY PRN PRN Reason: Constipation Levothyroxine Sodium (Synthroid) 25 mcg PO DAILY@0630 [facility] Last Admin: 07/19/17 06:11 Dose: 25 mcg Lidocaine (Lidoderm) 1 ea TD DAILY [facility] Last Admin: 07/19/17 08:23 Dose: 1 ea Losartan Potassium (Cozaar) 25 mg PO DAILY [facility] Last Admin: 07/19/17 08:22 Dose: 25 mg Memantine (Namenda) 10 mg PO DAILY [facility] Last Admin: 07/19/17 08:21 Dose: 10 mg Metoprolol Succinate (Toprol Xl) 50 mg PO DAILY [facility] Last Admin: 07/19/17 08:22 Dose: 50 mg Multivitamins/Minerals (Therapeutic-M Tab) 1 tab PO DAILY [facility] Last Admin: 07/19/17 08:20 Dose: 1 tab Sildenafil Citrate (Revatio) 20 mg PO TID [facility] Last Admin: 07/19/17 08:20 Dose: 20 mg Tramadol HCl (Ultram) 50 mg PO Q6 PRN PRN Reason: Pain, severe (8-10) Vitamin E (Vitamin E 400 Units Cap) 400 intlu PO DAILY [facility] Last Admin: 07/19/17 08:21 Dose: 400 intlu - Labs Labs: 07/18/17 05:00 07/18/17 05:00 PT 11.7 Seconds (9.8-13.1) 07/17/17 01:53 INR 1.1 (0.9-1.2) 07/17/17 01:53 APTT 27.9 Seconds (25.6-37.1) 07/17/17 01:53 - Constitutional Appears: Well - Head Exam Head Exam: ATRAUMATIC, NORMAL INSPECTION, NORMOCEPHALIC - Eye Exam Eye Exam: EOMI, Normal appearance, PERRL Pupil Exam: NORMAL ACCOMODATION, PERRL - ENT Exam ENT Exam: Mucous Membranes Moist, Normal Exam - Neck Exam Neck Exam: Full ROM, Normal Inspection. absent: Lymphadenopathy - Respiratory Exam Respiratory Exam: Clear to Ausculation Bilateral, Rales, NORMAL BREATHING PATTERN - Cardiovascular Exam Cardiovascular Exam: REGULAR RHYTHM, +S1, +S2. absent: Murmur - GI/Abdominal Exam GI & Abdominal Exam: Soft, Normal Bowel Sounds. absent: Tenderness - Extremities Exam Extremities Exam: Full ROM, Normal Capillary Refill, Normal Inspection. absent : Joint Swelling, Pedal Edema - Back Exam Back Exam: NORMAL INSPECTION - Neurological Exam Neurological Exam: Alert, Awake, CN II-XII Intact, Normal Gait, Oriented x3 - Psychiatric Exam Psychiatric exam: Normal Affect, Normal Mood - Skin Skin Exam: Dry, Intact, Normal Color, Warm Assessment and Plan (1) CHF (congestive heart failure) Assessment & Plan: improving with diuretic and IV milrinone cont arb, bb Status: Chronic (2) COPD (chronic obstructive pulmonary disease) Status: Chronic (3) Chest pain Status: Acute (4) Pulmonary hypertension Assessment & Plan: on sildenafil Status: Chronic
--- NOTE | 2017-07-19 10:56 | RAD ---
PROCEDURE: Chest/decubitus views HISTORY: SOB COMPARISON: 07/17/2017 TECHNIQUE: Standard protocol for this study/examination. FINDINGS: No significant free-flowing pleural effusion identified. No radiographic findings to suggest acute or significant cardiovascular disease. Position/ configuration of pacemaker device: Satisfactory. No active pulmonary disease. IMPRESSION: No active disease. No acute/significant interval changes. No significant free-flowing pleural effusion identified.
--- NOTE | 2017-07-19 10:57 | RAD ---
HISTORY: Shortness of breath. COMPARISON: 07/17/2017 TECHNIQUE: Chest PA and lateral FINDINGS: LUNGS: No active pulmonary disease. PLEURA: No significant pleural effusion identified. No pneumothorax apparent. CARDIOVASCULAR: No radiographic findings to suggest acute or significant cardiovascular disease. Position/ configuration of pacemaker device: Satisfactory. OSSEOUS STRUCTURES: No significant abnormalities. VISUALIZED UPPER ABDOMEN: Normal. OTHER FINDINGS: Left axillary clips/left mastectomy IMPRESSION: No active disease. No significant interval change compared to the prior examination(s).
[2017-07-19 11:04] LABS: BASO % 0.4 % (0.0-2.0); EOS # 0.1 K/uL (0.0-0.7); EOS % 1.4 % (0.0-4.0); HEMOGLOBIN 11.1 g/dL (12.0-16.0); LYMPH # 1.4 K/uL (1.0-4.3); LYMPH % 14.3 % (20.0-40.0); MEAN CELL VOLUME 98.8 fl (81.0-99.0); MEAN CORPUSCULAR HEMOGLOBIN 32.7 pg (27.0-31.0); MEAN CORPUSCULAR HGB CONC 33.1 g/dL (33.0-37.0); MEAN PLATELET VOLUME 8.7 fl (7.2-11.7); MONO % 10.5 % (0.0-10.0); NEUT # 7.3 K/uL (1.8-7.0); NEUT % 73.4 % (50.0-75.0); RBC 3.38 Mil/uL (3.80-5.20); RED CELL DISTRIBUTION WIDTH 14.5 % (11.5-14.5); WHITE BLOOD COUNT 9.9 K/uL (4.8-10.8)
--- NOTE | 2017-07-19 12:21 | CP.PCM.PN ---
Subjective - Date & Time of Evaluation Date of Evaluation: 07/19/17 Time of Evaluation: 10:50 - Subjective Subjective: Patient seen and examined. Claimed she felt much better. Objective - Vital Signs/Intake and Output Vital Signs (last 24 hours): Temp Pulse Resp BP Pulse Ox 97.8 F 64 18 111/62 95 07/19/17 12:12 07/19/17 12:12 07/19/17 12:12 07/19/17 12:12 07/19/17 12:12 Intake and Output: 07/19/17 07/19/17 06:59 18:59 Intake Total 190 Balance 190 - Medications Medications: Current Medications Amiodarone HCl (Cordarone) 200 mg PO DAILY [facility] Last Admin: 07/19/17 08:21 Dose: 200 mg Anastrozole (Arimidex 1 Mg Tab) 1 mg PO DAILY [facility] Last Admin: 07/19/17 08:25 Dose: 1 mg Ascorbic Acid (Vitamin C 500 Mg Tab) 500 mg PO DAILY [facility] Last Admin: 07/19/17 08:21 Dose: 500 mg Aspirin (Ecotrin) 81 mg PO DAILY [facility] Last Admin: 07/19/17 08:23 Dose: 81 mg Atorvastatin Calcium (Lipitor) 20 mg PO HS [facility] Last Admin: 07/18/17 21:35 Dose: 20 mg Calcium/Vitamin D (Oyster Shell Calcium/Vitamin D 500 Mg-200 Iu) 1 tab PO DAILY [facility] Last Admin: 07/19/17 08:21 Dose: 1 tab Cholecalciferol (Vitamin D) 1,000 intlu PO DAILY [facility] Last Admin: 07/19/17 08:21 Dose: 1,000 intlu Docusate Sodium (Colace) 200 mg PO DAILY [facility] Last Admin: 07/19/17 08:24 Dose: 200 mg Enoxaparin Sodium (Lovenox) 40 mg SC DAILY [facility] PRN Reason: Protocol Last Admin: 07/19/17 08:19 Dose: 40 mg Furosemide (Lasix) 40 mg IVP DAILY [facility] Last Admin: 07/19/17 08:19 Dose: 40 mg Milrinone Lactate/Dextrose (Primacor 20mg/100ml D5w) 100 mls @ 7.471 mls/hr IV .[id number] [facility]; 0.375 MCG/KG/MIN PRN Reason: Protocol Last Admin: 07/19/17 06:20 Dose: 0.375 mcg/kg/min, 7.471 mls/hr Lactulose (Enulose) 20 gm PO DAILY PRN PRN Reason: Constipation Levothyroxine Sodium (Synthroid) 25 mcg PO DAILY@0630 [facility] Last Admin: 07/19/17 06:11 Dose: 25 mcg Lidocaine (Lidoderm) 1 ea TD DAILY [facility] Last Admin: 07/19/17 08:23 Dose: 1 ea Losartan Potassium (Cozaar) 25 mg PO DAILY [facility] Last Admin: 07/19/17 08:22 Dose: 25 mg Memantine (Namenda) 10 mg PO DAILY [facility] Last Admin: 07/19/17 08:21 Dose: 10 mg Metoprolol Succinate (Toprol Xl) 50 mg PO DAILY [facility] Last Admin: 07/19/17 08:22 Dose: 50 mg Multivitamins/Minerals (Therapeutic-M Tab) 1 tab PO DAILY [facility] Last Admin: 07/19/17 08:20 Dose: 1 tab Sildenafil Citrate (Revatio) 20 mg PO TID [facility] Last Admin: 07/19/17 08:20 Dose: 20 mg Tramadol HCl (Ultram) 50 mg PO Q6 PRN PRN Reason: Pain, severe (8-10) Vitamin E (Vitamin E 400 Units Cap) 400 intlu PO DAILY [facility] Last Admin: 07/19/17 08:21 Dose: 400 intlu - Labs Labs: 07/19/17 10:30 07/18/17 05:00 PT 11.7 Seconds (9.8-13.1) 07/17/17 01:53 INR 1.1 (0.9-1.2) 07/17/17 01:53 APTT 27.9 Seconds (25.6-37.1) 07/17/17 01:53 - Constitutional Appears: No Acute Distress - Head Exam Head Exam: ATRAUMATIC - Eye Exam Eye Exam: absent: Scleral icterus - ENT Exam ENT Exam: Mucous Membranes Moist - Neck Exam Neck Exam: absent: Meningismus - Respiratory Exam Respiratory Exam: absent: Rales, Rhonchi, Wheezes, Respiratory Distress - Cardiovascular Exam Cardiovascular Exam: REGULAR RHYTHM, +S1, +S2 - GI/Abdominal Exam GI & Abdominal Exam: Soft. absent: Tenderness - Rectal Exam Rectal Exam: Deferred - Extremities Exam Extremities Exam: absent: Calf Tenderness, Pedal Edema - Neurological Exam Neurological Exam: Alert, Oriented x3 - Psychiatric Exam Psychiatric exam: Normal Affect - Skin Skin Exam: Dry, Intact Assessment and Plan - Assessment and Plan (Free Text) Assessment: 81 yo female with history of Cardiomyopathy with IACD, COPD, Pulmonary HTN, Left Breast Cancer and CAD brought back because of SOB not relieved with PO Lasix. Called Dr Gomez who advised her to take an extra dose of Lasix. Aside from urinating a lot, her condition did not improved. She called 911 and was brought in by EMS to the ER. 1. CHF exacerbation Systolic and Diastolic Dysfunction feeling better, able to move around with assistance without difficulty continue IV Lasix, Losartan and Metoprolol continue Amiodarone and IV Milrinone cardiology consult with Dr Da Silva appreciated 2. COPD asymptomatic continue Duoneb via nebulizer q 4hrs prn 3. Leukocytosis resolved 4. Pulmonary HTN continue Sildenafil 20mg PO TID
--- NOTE | 2017-07-19 14:03 | PQF GENQUE ---
This form is a permanent part of the medical record 07/19/17 Dr. Hernandez, ( 2 ) Physician Clarifications: ---1) Primary or Secondary Pulmonary HTN ? ---2) If Secondary HTN please clarify the suspected cause(s) if known Patient with a history of COPD, CHF, CAD, ischemic cardiomyopathy and pulmonary HTN presents with sob. ProBNP 11, 800, CXR:Interstitial markings with superimposed pulmonary vascular congestion not excluded. Treatment includes: Primacor IV, Lasix IV, Sildenafil, Cozaar, Nebs. Clarification of your documentation is requested to better reflect the severity of illness and intensity of treatment of your patient. Indicators present PHYSICIAN'S RESPONSE Based on your medical judgment of the clinical indicators outlined above please clarify the following: [] Practitioner response [x] If unable to determine, please check the box, sign and date. Present On Admission (POA) Indicator: [x] Present at the time of admission [] Not present at the time of admission [] Clinically Undetermined In responding to this query, please exercise your independent professional judgment. The fact that a question is asked does not imply that any particular answer is desired or expected. Thank you for your clarification on this documentation. If you have any questions please call:ext [phone] * Thank you, Elizabeth Delgado RN CDMP [facility]
[2017-07-20 00:25] VITALS: RESP 18
[2017-07-20] MEDS: Levothyroxine 25 MCG TAB PO SCH (06:26)
--- NOTE | 2017-07-20 09:16 | CP.PCM.PN ---
Subjective - Date & Time of Evaluation Date of Evaluation: 07/20/17 Time of Evaluation: 09:16 - Subjective Subjective: Seated in a bedside chair presently. Appears much more comfortable and claims to feel improved. Slept fairly well last night, but overnight SpO2 was apparently not done. Followup chest x-ray yesterday looked quite a bit improved. No pleural effusions were seen on lateral decubitus views. Vital signs have been stable and a followup weight has been requested. No dependant edema noted, no cyanosis. Some darkening, faint ecchymosis in the infra-orbital regions bilaterally. No other areas of ecchymosis are seen. Neck is supple, trachea remains midline. Breath sounds are fairly well heard bilaterally with few basal rales posteriorly in both lungs. No audible wheezing or bronchial breathing heard. Heart sounds are distant, regular rhythm. Abdomen is soft with good bowel sounds. Will check with respiratory department regarding SpO2 recording. This must be done without supplemental oxygen to qualify for home O2. Milrinone is ongoing and has been used in addition to her regular regimen which includes sildenafil. With the dx of pulmonary hypertension documented with cardiac cath which did respond to sildenafil this rx should be approved. Pulmonary hypertension with Cardiomyopathy/low LVEF and presence of clinical CHF this should qualify for continued use. Objective - Vital Signs/Intake and Output Vital Signs (last 24 hours): Temp Pulse Resp BP Pulse Ox 98.3 F 72 18 139/77 99 07/20/17 07:39 07/20/17 07:39 07/20/17 07:39 07/20/17 07:39 07/20/17 07:39 Intake and Output: 07/19/17 07/20/17 23:59 11:59 Intake Total 68 Balance 68 - Medications Medications: Current Medications Amiodarone HCl (Cordarone) 200 mg PO DAILY [facility] Last Admin: 07/19/17 08:21 Dose: 200 mg Anastrozole (Arimidex 1 Mg Tab) 1 mg PO DAILY [facility] Last Admin: 07/19/17 08:25 Dose: 1 mg Ascorbic Acid (Vitamin C 500 Mg Tab) 500 mg PO DAILY [facility] Last Admin: 07/19/17 08:21 Dose: 500 mg Aspirin (Ecotrin) 81 mg PO DAILY [facility] Last Admin: 07/19/17 08:23 Dose: 81 mg Atorvastatin Calcium (Lipitor) 20 mg PO [facility] Last Admin: 07/19/17 21:26 Dose: 20 mg Calcium/Vitamin D (Oyster Shell Calcium/Vitamin D 500 Mg-200 Iu) 1 tab PO DAILY [facility] Last Admin: 07/19/17 08:21 Dose: 1 tab Cholecalciferol (Vitamin D) 1,000 intlu PO DAILY [facility] Last Admin: 07/19/17 08:21 Dose: 1,000 intlu Docusate Sodium (Colace) 200 mg PO DAILY [facility] Last Admin: 07/19/17 08:24 Dose: 200 mg Enoxaparin Sodium (Lovenox) 40 mg SC DAILY [facility] PRN Reason: Protocol Last Admin: 07/19/17 08:19 Dose: 40 mg Furosemide (Lasix) 40 mg IVP DAILY [facility] Last Admin: 07/19/17 08:19 Dose: 40 mg Milrinone Lactate/Dextrose (Primacor 20mg/100ml D5w) 100 mls @ 7.471 mls/hr IV .[id number] [facility]; 0.375 MCG/KG/MIN PRN Reason: Protocol Last Titration: 07/19/17 20:48 Dose: 0.188 mcg/kg/min, 3.745 mls/hr Lactulose (Enulose) 20 gm PO DAILY PRN PRN Reason: Constipation Levothyroxine Sodium (Synthroid) 25 mcg PO DAILY@0630 [facility] Last Admin: 07/20/17 06:26 Dose: 25 mcg Lidocaine (Lidoderm) 1 ea TD DAILY [facility] Last Admin: 07/19/17 08:23 Dose: 1 ea Losartan Potassium (Cozaar) 25 mg PO DAILY [facility] Last Admin: 07/19/17 08:22 Dose: 25 mg Memantine (Namenda) 10 mg PO DAILY [facility] Last Admin: 07/19/17 08:21 Dose: 10 mg Metoprolol Succinate (Toprol Xl) 50 mg PO DAILY [facility] Last Admin: 07/19/17 08:22 Dose: 50 mg Multivitamins/Minerals (Therapeutic-M Tab) 1 tab PO DAILY [facility] Last Admin: 07/19/17 08:20 Dose: 1 tab Sildenafil Citrate (Revatio) 20 mg PO TID [facility] Last Admin: 07/19/17 16:11 Dose: 20 mg Vitamin E (Vitamin E 400 Units Cap) 400 intlu PO DAILY [facility] Last Admin: 07/19/17 08:21 Dose: 400 intlu - Labs Labs: 07/19/17 10:30 07/18/17 05:00 PT 11.7 Seconds (9.8-13.1) 07/17/17 01:53 INR 1.1 (0.9-1.2) 07/17/17 01:53 APTT 27.9 Seconds (25.6-37.1) 07/17/17 01:53 Assessment and Plan (1) Leukocytosis Status: Acute (2) Shortness of breath Status: Resolved (3) CHF (congestive heart failure) Status: Chronic (4) COPD (chronic obstructive pulmonary disease) Status: Chronic (5) Cardiomyopathy Status: Chronic (6) Pulmonary hypertension Status: Chronic
--- NOTE | 2017-07-20 09:47 | CP.PCM.PN ---
Subjective - Date & Time of Evaluation Date of Evaluation: 07/20/17 Time of Evaluation: 09:00 - Subjective Subjective: Pt feels less short of breath today compared to yesterday On Milrinone drip denies CP no abd pain Objective - Vital Signs/Intake and Output Vital Signs (last 24 hours): Temp Pulse Resp BP Pulse Ox 98.3 F 72 18 139/77 99 07/20/17 07:39 07/20/17 07:39 07/20/17 07:39 07/20/17 07:39 07/20/17 07:39 Intake and Output: 07/20/17 07/20/17 06:59 18:59 Intake Total 68 Balance 68 - Medications Medications: Current Medications Amiodarone HCl (Cordarone) 200 mg PO DAILY [facility] Last Admin: 07/19/17 08:21 Dose: 200 mg Anastrozole (Arimidex 1 Mg Tab) 1 mg PO DAILY [facility] Last Admin: 07/19/17 08:25 Dose: 1 mg Ascorbic Acid (Vitamin C 500 Mg Tab) 500 mg PO DAILY [facility] Last Admin: 07/19/17 08:21 Dose: 500 mg Aspirin (Ecotrin) 81 mg PO DAILY [facility] Last Admin: 07/19/17 08:23 Dose: 81 mg Atorvastatin Calcium (Lipitor) 20 mg PO HS [facility] Last Admin: 07/19/17 21:26 Dose: 20 mg Calcium/Vitamin D (Oyster Shell Calcium/Vitamin D 500 Mg-200 Iu) 1 tab PO DAILY [facility] Last Admin: 07/19/17 08:21 Dose: 1 tab Cholecalciferol (Vitamin D) 1,000 intlu PO DAILY [facility] Last Admin: 07/19/17 08:21 Dose: 1,000 intlu Docusate Sodium (Colace) 200 mg PO DAILY [facility] Last Admin: 07/19/17 08:24 Dose: 200 mg Enoxaparin Sodium (Lovenox) 40 mg SC DAILY [facility] PRN Reason: Protocol Last Admin: 07/19/17 08:19 Dose: 40 mg Furosemide (Lasix) 40 mg IVP DAILY [facility] Last Admin: 07/19/17 08:19 Dose: 40 mg Milrinone Lactate/Dextrose (Primacor 20mg/100ml D5w) 100 mls @ 7.471 mls/hr IV .[id number] YUVAL; 0.375 MCG/KG/MIN PRN Reason: Protocol Last Titration: 07/19/17 20:48 Dose: 0.188 mcg/kg/min, 3.745 mls/hr Lactulose (Enulose) 20 gm PO DAILY PRN PRN Reason: Constipation Levothyroxine Sodium (Synthroid) 25 mcg PO DAILY@0630 [facility] Last Admin: 07/20/17 06:26 Dose: 25 mcg Lidocaine (Lidoderm) 1 ea TD DAILY [facility] Last Admin: 07/19/17 08:23 Dose: 1 ea Losartan Potassium (Cozaar) 25 mg PO DAILY [facility] Last Admin: 07/19/17 08:22 Dose: 25 mg Memantine (Namenda) 10 mg PO DAILY [facility] Last Admin: 07/19/17 08:21 Dose: 10 mg Metoprolol Succinate (Toprol Xl) 50 mg PO DAILY [facility] Last Admin: 07/19/17 08:22 Dose: 50 mg Multivitamins/Minerals (Therapeutic-M Tab) 1 tab PO DAILY [facility] Last Admin: 07/19/17 08:20 Dose: 1 tab Sildenafil Citrate (Revatio) 20 mg PO TID [facility] Last Admin: 07/19/17 16:11 Dose: 20 mg Vitamin E (Vitamin E 400 Units Cap) 400 intlu PO DAILY [facility] Last Admin: 07/19/17 08:21 Dose: 400 intlu - Labs Labs: 07/19/17 10:30 07/18/17 05:00 PT 11.7 Seconds (9.8-13.1) 07/17/17 01:53 INR 1.1 (0.9-1.2) 07/17/17 01:53 APTT 27.9 Seconds (25.6-37.1) 07/17/17 01:53 - Constitutional Appears: Non-toxic, No Acute Distress - Head Exam Head Exam: NORMAL INSPECTION, NORMOCEPHALIC - Eye Exam Eye Exam: EOMI, Normal appearance Pupil Exam: NORMAL ACCOMODATION - ENT Exam ENT Exam: Mucous Membranes Moist, Normal External Ear Exam - Neck Exam Neck Exam: Full ROM. absent: Meningismus - Respiratory Exam Respiratory Exam: NORMAL BREATHING PATTERN. absent: Respiratory Distress - Cardiovascular Exam Cardiovascular Exam: REGULAR RHYTHM, +S1, +S2 - GI/Abdominal Exam GI & Abdominal Exam: Soft, Normal Bowel Sounds. absent: Tenderness - Extremities Exam Extremities Exam: Normal Capillary Refill. absent: Calf Tenderness, Pedal Edema - Back Exam Back Exam: absent: CVA tenderness (L), CVA tenderness (R) - Neurological Exam Neurological Exam: Alert, Awake, Oriented x3 Neuro motor strength exam: Left Upper Extremity: 5, Right Upper Extremity: 5, Left Lower Extremity: 5, Right Lower Extremity: 5 - Psychiatric Exam Psychiatric exam: Normal Affect, Normal Mood - Skin Skin Exam: Dry, Normal Color, Warm Assessment and Plan - Assessment and Plan (Free Text) Assessment: 81 yo female with history of Cardiomyopathy with AICD, CHF, Pulmonary HTN, CAD , Left Breast Cancer , COPD and Hypothyroidism , was brought in because of SOB not relieved with PO Lasix. The patient called her PMD Dr Gomez who advised her to take an extra dose of Lasix. Aside from urinating a lot, her condition did not improved. She called 911 and was brought in by EMS to the ER. 1. CHF exacerbation Systolic and Diastolic Dysfunction Pulmonary Hypertension Pt is on Milrinone drip less SOB today, denies CP continue IV Lasix, Losartan and Metoprolol continue Amiodarone cont IV Milrinone- taper dose cardiology consult with Dr Da Silva cont Sildenafil Continous Pulse Ox 2. COPD, chronic asymptomatic continue Duoneb via nebulizer q 4hrs prn Pulm consult =- Dr Gomez- discussed case 3. Leukocytosis resolved 4. GINNY on CKD stage III worsned by Diuretics, CHF monitor 5. Hx of Breast CA cont Arimidex 6. Hypothyroidism cont Levothyroxine DVT proph - Lovenox
[2017-07-20] MEDS: Enoxaparin 40 mg Syringe SC SCH (09:54)
[2017-07-20] MEDS: Multivitamin With Minerals Tab PO SCH (09:55)
[2017-07-20] MEDS: Sildenafil 20 MG TAB PO SCH ×3 (09:55→16:33)
[2017-07-20] MEDS: Metoprolol Succinate 50 mg XL Tab PO SCH (09:57)
[2017-07-20] MEDS: Cholecalciferol 1,000 INTLU TAB PO SCH (09:58)
[2017-07-20] MEDS: Calcium-Vit D 500 mg-200 Units Tab UD PO SCH (09:58)
[2017-07-20] MEDS: Lidocaine 5% Patch TD SCH (09:59)
--- NOTE | 2017-07-20 15:57 | CP.PCM.PN ---
<Aleks Singer - Last Filed: 07/21/17 01:04> Objective - Vital Signs/Intake and Output Vital Signs (last 24 hours): Temp Pulse Resp BP Pulse Ox 98.4 F 63 18 116/56 L 95 07/03/17 16:05 07/03/17 16:05 07/03/17 16:05 07/03/17 16:05 07/11/17 22:19 - Labs Labs: 07/02/17 05:15 07/02/17 05:15 <Bernard Da Silva - Last Filed: 07/21/17 09:05> Subjective - Date & Time of Evaluation Date of Evaluation: 07/20/17 Time of Evaluation: 15:56 - Subjective Subjective: feeling better milrione dose being tapered off Objective - Vital Signs/Intake and Output Vital Signs (last 24 hours): Temp Pulse Resp BP Pulse Ox 98.1 F 81 18 124/70 96 07/20/17 11:46 07/20/17 11:46 07/20/17 11:46 07/20/17 11:46 07/20/17 11:46 Intake and Output: 07/20/17 07/20/17 06:59 18:59 Intake Total 68 Balance 68 - Medications Medications: Current Medications Amiodarone HCl (Cordarone) 200 mg PO DAILY [facility] Last Admin: 07/20/17 09:54 Dose: 200 mg Anastrozole (Arimidex 1 Mg Tab) 1 mg PO DAILY [facility] Last Admin: 07/20/17 09:56 Dose: 1 mg Ascorbic Acid (Vitamin C 500 Mg Tab) 500 mg PO DAILY [facility] Last Admin: 07/20/17 09:58 Dose: 500 mg Aspirin (Ecotrin) 81 mg PO DAILY [facility] Last Admin: 07/20/17 09:57 Dose: 81 mg Atorvastatin Calcium (Lipitor) 20 mg PO HS [facility] Last Admin: 07/19/17 21:26 Dose: 20 mg Calcium/Vitamin D (Oyster Shell Calcium/Vitamin D 500 Mg-200 Iu) 1 tab PO DAILY [facility] Last Admin: 07/20/17 09:58 Dose: 1 tab Cholecalciferol (Vitamin D) 1,000 intlu PO DAILY [facility] Last Admin: 07/20/17 09:58 Dose: 1,000 intlu Docusate Sodium (Colace) 200 mg PO DAILY [facility] Last Admin: 07/20/17 09:57 Dose: 200 mg Furosemide (Lasix) 40 mg IVP DAILY [facility] Last Admin: 07/20/17 09:58 Dose: 40 mg Milrinone Lactate/Dextrose (Primacor 20mg/100ml D5w) 100 mls @ 7.471 mls/hr IV .[id number] YUVAL; 0.375 MCG/KG/MIN PRN Reason: Protocol Last Titration: 07/19/17 20:48 Dose: 0.188 mcg/kg/min, 3.745 mls/hr Lactulose (Enulose) 20 gm PO DAILY PRN PRN Reason: Constipation Levothyroxine Sodium (Synthroid) 25 mcg PO DAILY@0630 [facility] Last Admin: 07/20/17 06:26 Dose: 25 mcg Lidocaine (Lidoderm) 1 ea TD DAILY [facility] Last Admin: 07/20/17 09:59 Dose: Not Given Losartan Potassium (Cozaar) 25 mg PO DAILY [facility] Last Admin: 07/20/17 09:57 Dose: 25 mg Memantine (Namenda) 10 mg PO DAILY [facility] Last Admin: 07/20/17 09:58 Dose: 10 mg Metoprolol Succinate (Toprol Xl) 50 mg PO DAILY [facility] Last Admin: 07/20/17 09:57 Dose: 50 mg Multivitamins/Minerals (Therapeutic-M Tab) 1 tab PO DAILY [facility] Last Admin: 07/20/17 09:55 Dose: 1 tab Sildenafil Citrate (Revatio) 20 mg PO TID [facility] Last Admin: 07/20/17 09:55 Dose: 20 mg Vitamin E (Vitamin E 400 Units Cap) 400 intlu PO DAILY [facility] Last Admin: 07/20/17 09:55 Dose: 400 intlu - Labs Labs: 07/19/17 10:30 07/18/17 05:00 PT 11.7 Seconds (9.8-13.1) 07/17/17 01:53 INR 1.1 (0.9-1.2) 07/17/17 01:53 APTT 27.9 Seconds (25.6-37.1) 07/17/17 01:53 - Constitutional Appears: Well - Head Exam Head Exam: ATRAUMATIC, NORMAL INSPECTION, NORMOCEPHALIC - Eye Exam Eye Exam: EOMI, Normal appearance, PERRL Pupil Exam: NORMAL ACCOMODATION, PERRL - ENT Exam ENT Exam: Mucous Membranes Moist, Normal Exam - Neck Exam Neck Exam: Full ROM, Normal Inspection. absent: Lymphadenopathy - Respiratory Exam Respiratory Exam: Clear to Ausculation Bilateral, NORMAL BREATHING PATTERN - Cardiovascular Exam Cardiovascular Exam: REGULAR RHYTHM, +S1, +S2. absent: Murmur - GI/Abdominal Exam GI & Abdominal Exam: Soft, Normal Bowel Sounds. absent: Tenderness - Extremities Exam Extremities Exam: Full ROM, Normal Capillary Refill, Normal Inspection. absent : Joint Swelling, Pedal Edema - Back Exam Back Exam: NORMAL INSPECTION - Neurological Exam Neurological Exam: Alert, Awake, CN II-XII Intact, Normal Gait, Oriented x3 - Psychiatric Exam Psychiatric exam: Normal Affect, Normal Mood - Skin Skin Exam: Dry, Intact, Normal Color, Warm Assessment and Plan (1) CHF (congestive heart failure) Assessment & Plan: weaning off milricone cont lasix cont bb and arb Status: Chronic (2) COPD (chronic obstructive pulmonary disease) Status: Chronic (3) Chest pain Status: Acute (4) Pulmonary hypertension Assessment & Plan: sildenafil Status: Chronic
[2017-07-21 05:44] LABS: HEMOGLOBIN 10.1 g/dL (12.0-16.0); MEAN CELL VOLUME 98.6 fl (81.0-99.0); MEAN CORPUSCULAR HEMOGLOBIN 32.9 pg (27.0-31.0); MEAN CORPUSCULAR HGB CONC 33.4 g/dL (33.0-37.0); RBC 3.07 Mil/uL (3.80-5.20); RED CELL DISTRIBUTION WIDTH 14.1 % (11.5-14.5); WHITE BLOOD COUNT 8.6 K/uL (4.8-10.8)
[2017-07-21 06:08] LABS: CALCIUM 8.8 mg/dL (8.4-10.2)
[2017-07-21] MEDS: Levothyroxine 25 MCG TAB PO SCH (06:17)
--- NOTE | 2017-07-21 08:57 | CP.PCM.PN ---
Subjective - Date & Time of Evaluation Date of Evaluation: 07/21/17 Time of Evaluation: 08:57 - Subjective Subjective: The patient was seen on morning rounds in telemetry. The case was discussed at length with Dr. Da Silva. Primacor is being discontinued today. The patient has responded very well to the use of this inotrope as well as the continued use of PDE 5 inhibitors. Plan is for transfer to subacute rehabilitation for physical therapy. Objective - Vital Signs/Intake and Output Vital Signs (last 24 hours): Temp Pulse Resp BP Pulse Ox 97.7 F 63 18 132/69 97 07/21/17 07:53 07/21/17 07:53 07/21/17 07:53 07/21/17 07:53 07/21/17 07:53 - Medications Medications: Current Medications Amiodarone HCl (Cordarone) 200 mg PO DAILY [facility] Last Admin: 07/20/17 09:54 Dose: 200 mg Anastrozole (Arimidex 1 Mg Tab) 1 mg PO DAILY [facility] Last Admin: 07/20/17 09:56 Dose: 1 mg Ascorbic Acid (Vitamin C 500 Mg Tab) 500 mg PO DAILY [facility] Last Admin: 07/20/17 09:58 Dose: 500 mg Aspirin (Ecotrin) 81 mg PO DAILY [facility] Last Admin: 07/20/17 09:57 Dose: 81 mg Atorvastatin Calcium (Lipitor) 20 mg PO HS [facility] Last Admin: 07/20/17 22:13 Dose: 20 mg Calcium/Vitamin D (Oyster Shell Calcium/Vitamin D 500 Mg-200 Iu) 1 tab PO DAILY [facility] Last Admin: 07/20/17 09:58 Dose: 1 tab Cholecalciferol (Vitamin D) 1,000 intlu PO DAILY [facility] Last Admin: 07/20/17 09:58 Dose: 1,000 intlu Docusate Sodium (Colace) 200 mg PO DAILY [facility] Last Admin: 07/20/17 09:57 Dose: 200 mg Enoxaparin Sodium (Lovenox) 30 mg SC DAILY [facility] PRN Reason: Protocol Furosemide (Lasix) 40 mg IVP DAILY [facility] Last Admin: 07/20/17 09:58 Dose: 40 mg Milrinone Lactate/Dextrose (Primacor 20mg/100ml D5w) 100 mls @ 7.471 mls/hr IV .[id number] YUVAL; 0.375 MCG/KG/MIN PRN Reason: Protocol Last Titration: 07/19/17 20:48 Dose: 0.188 mcg/kg/min, 3.745 mls/hr Lactulose (Enulose) 20 gm PO DAILY PRN PRN Reason: Constipation Levothyroxine Sodium (Synthroid) 25 mcg PO DAILY@0630 [facility] Last Admin: 07/21/17 06:17 Dose: 25 mcg Lidocaine (Lidoderm) 1 ea TD DAILY [facility] Last Admin: 07/20/17 09:59 Dose: Not Given Losartan Potassium (Cozaar) 25 mg PO DAILY [facility] Last Admin: 07/20/17 09:57 Dose: 25 mg Memantine (Namenda) 10 mg PO DAILY [facility] Last Admin: 07/20/17 09:58 Dose: 10 mg Metoprolol Succinate (Toprol Xl) 50 mg PO DAILY [facility] Last Admin: 07/20/17 09:57 Dose: 50 mg Multivitamins/Minerals (Therapeutic-M Tab) 1 tab PO DAILY [facility] Last Admin: 07/20/17 09:55 Dose: 1 tab Sildenafil Citrate (Revatio) 20 mg PO TID [facility] Last Admin: 07/20/17 16:33 Dose: 20 mg Vitamin E (Vitamin E 400 Units Cap) 400 intlu PO DAILY [facility] Last Admin: 07/20/17 09:55 Dose: 400 intlu - Labs Labs: 07/21/17 04:55 07/21/17 04:55 PT 11.7 Seconds (9.8-13.1) 07/17/17 01:53 INR 1.1 (0.9-1.2) 07/17/17 01:53 APTT 27.9 Seconds (25.6-37.1) 07/17/17 01:53 Assessment and Plan (1) Leukocytosis Status: Acute (2) Shortness of breath Status: Resolved (3) CHF (congestive heart failure) Status: Chronic (4) COPD (chronic obstructive pulmonary disease) Status: Chronic (5) Cardiomyopathy Status: Chronic (6) Pulmonary hypertension Status: Chronic
[2017-07-21] MEDS ORDERED: Enoxaparin 30 mg Syringe SC SCH (09:00)
--- NOTE | 2017-07-21 09:09 | CP.PCM.PN ---
Subjective - Date & Time of Evaluation Date of Evaluation: 07/21/17 Time of Evaluation: 09:08 - Subjective Subjective: feeling better Objective - Vital Signs/Intake and Output Vital Signs (last 24 hours): Temp Pulse Resp BP Pulse Ox 97.7 F 63 18 132/69 97 07/21/17 07:53 07/21/17 07:53 07/21/17 07:53 07/21/17 07:53 07/21/17 07:53 - Medications Medications: Current Medications Amiodarone HCl (Cordarone) 200 mg PO DAILY [facility] Last Admin: 07/20/17 09:54 Dose: 200 mg Anastrozole (Arimidex 1 Mg Tab) 1 mg PO DAILY [facility] Last Admin: 07/20/17 09:56 Dose: 1 mg Ascorbic Acid (Vitamin C 500 Mg Tab) 500 mg PO DAILY [facility] Last Admin: 07/20/17 09:58 Dose: 500 mg Aspirin (Ecotrin) 81 mg PO DAILY [facility] Last Admin: 07/20/17 09:57 Dose: 81 mg Atorvastatin Calcium (Lipitor) 20 mg PO HS [facility] Last Admin: 07/20/17 22:13 Dose: 20 mg Calcium/Vitamin D (Oyster Shell Calcium/Vitamin D 500 Mg-200 Iu) 1 tab PO DAILY [facility] Last Admin: 07/20/17 09:58 Dose: 1 tab Cholecalciferol (Vitamin D) 1,000 intlu PO DAILY [facility] Last Admin: 07/20/17 09:58 Dose: 1,000 intlu Docusate Sodium (Colace) 200 mg PO DAILY [facility] Last Admin: 07/20/17 09:57 Dose: 200 mg Enoxaparin Sodium (Lovenox) 30 mg SC DAILY [facility] PRN Reason: Protocol Furosemide (Lasix) 40 mg IVP DAILY [facility] Last Admin: 07/20/17 09:58 Dose: 40 mg Milrinone Lactate/Dextrose (Primacor 20mg/100ml D5w) 100 mls @ 7.471 mls/hr IV .[id number] YUVAL; 0.375 MCG/KG/MIN PRN Reason: Protocol Last Titration: 07/19/17 20:48 Dose: 0.188 mcg/kg/min, 3.745 mls/hr Lactulose (Enulose) 20 gm PO DAILY PRN PRN Reason: Constipation Levothyroxine Sodium (Synthroid) 25 mcg PO DAILY@0630 [facility] Last Admin: 07/21/17 06:17 Dose: 25 mcg Lidocaine (Lidoderm) 1 ea TD DAILY [facility] Last Admin: 07/20/17 09:59 Dose: Not Given Losartan Potassium (Cozaar) 25 mg PO DAILY [facility] Last Admin: 07/20/17 09:57 Dose: 25 mg Memantine (Namenda) 10 mg PO DAILY [facility] Last Admin: 07/20/17 09:58 Dose: 10 mg Metoprolol Succinate (Toprol Xl) 50 mg PO DAILY [facility] Last Admin: 07/20/17 09:57 Dose: 50 mg Multivitamins/Minerals (Therapeutic-M Tab) 1 tab PO DAILY [facility] Last Admin: 07/20/17 09:55 Dose: 1 tab Sildenafil Citrate (Revatio) 20 mg PO TID [facility] Last Admin: 07/20/17 16:33 Dose: 20 mg Vitamin E (Vitamin E 400 Units Cap) 400 intlu PO DAILY [facility] Last Admin: 07/20/17 09:55 Dose: 400 intlu - Labs Labs: 07/21/17 04:55 07/21/17 04:55 PT 11.7 Seconds (9.8-13.1) 07/17/17 01:53 INR 1.1 (0.9-1.2) 07/17/17 01:53 APTT 27.9 Seconds (25.6-37.1) 07/17/17 01:53 - Constitutional Appears: Well - Head Exam Head Exam: ATRAUMATIC, NORMAL INSPECTION, NORMOCEPHALIC - Eye Exam Eye Exam: EOMI, Normal appearance, PERRL Pupil Exam: NORMAL ACCOMODATION, PERRL - ENT Exam ENT Exam: Mucous Membranes Moist, Normal Exam - Neck Exam Neck Exam: Full ROM, Normal Inspection. absent: Lymphadenopathy - Respiratory Exam Respiratory Exam: Clear to Ausculation Bilateral, NORMAL BREATHING PATTERN - Cardiovascular Exam Cardiovascular Exam: REGULAR RHYTHM, +S1, +S2. absent: Murmur - GI/Abdominal Exam GI & Abdominal Exam: Soft, Normal Bowel Sounds. absent: Tenderness - Extremities Exam Extremities Exam: Full ROM, Normal Capillary Refill, Normal Inspection. absent : Joint Swelling, Pedal Edema - Back Exam Back Exam: NORMAL INSPECTION - Neurological Exam Neurological Exam: Alert, Awake, CN II-XII Intact, Normal Gait, Oriented x3 - Psychiatric Exam Psychiatric exam: Normal Affect, Normal Mood - Skin Skin Exam: Dry, Intact, Normal Color, Warm Assessment and Plan (1) CHF (congestive heart failure) Assessment & Plan: chg lasix to PO cont bb and arb stable to transfer to TCU Status: Chronic (2) COPD (chronic obstructive pulmonary disease) Status: Chronic (3) Chest pain Status: Acute (4) Pulmonary hypertension Assessment & Plan: sildenafil Status: Chronic (5) V-tach Assessment & Plan: cont amiodarone Status: Acute
[2017-07-21] MEDS: Sildenafil 20 MG TAB PO SCH (09:56)
[2017-07-21] MEDS: Multivitamin With Minerals Tab PO SCH (09:56)
[2017-07-21] MEDS: Lidocaine 5% Patch TD SCH (10:00)
[2017-07-21] MEDS: Calcium-Vit D 500 mg-200 Units Tab UD PO SCH (10:01)
[2017-07-21] MEDS: Cholecalciferol 1,000 INTLU TAB PO SCH (10:02)
--- NOTE | 2017-07-21 11:29 | CP.PCM.DIS ---
Provider - Provider Date of Admission: 07/17/17 03:19 Attending physician: Mohan Hernandez MD Primary care physician: Dr Gomez Consults: Puln: DR Gomez Cardio: DR Da Silva Time Spent in preparation of Discharge (in minutes): 30 Diagnosis - Discharge Diagnosis (1) Acute exacerbation of congestive heart failure Status: Acute (2) Pulmonary arterial hypertension Status: Acute (3) GINNY (acute kidney injury) Status: Acute (4) CKD (chronic kidney disease) stage 3, GFR 30-59 ml/min Status: Chronic (5) Physical deconditioning Status: Acute Priority: Medium Hospital Course - Lab Results Lab Results: Micro Results 07/17/17 01:05 Blood-Venous Blood Culture - Preliminary NO GROWTH AFTER 4 DAYS 07/17/17 11:53 Urine,Catheterized Urine Culture - Final No Growth (<1,000 CFU/ML) Most Recent Lab Values WBC 8.6 K/uL (4.8-10.8) 07/21/17 04:55 RBC 3.07 Mil/uL (3.80-5.20) L 07/21/17 04:55 Hgb 10.1 g/dL (12.0-16.0) L 07/21/17 04:55 Hct 30.3 % (34.0-47.0) L 07/21/17 04:55 MCV 98.6 fl (81.0-99.0) 07/21/17 04:55 MCH 32.9 pg (27.0-31.0) H 07/21/17 04:55 MCHC 33.4 g/dL (33.0-37.0) 07/21/17 04:55 RDW 14.1 % (11.5-14.5) 07/21/17 04:55 Plt Count 252 K/uL (130-400) 07/21/17 04:55 MPV 8.7 fl (7.2-11.7) 07/19/17 10:30 Neut % (Auto) 73.4 % (50.0-75.0) 07/19/17 10:30 Lymph % (Auto) 14.3 % (20.0-40.0) L 07/19/17 10:30 [place] % (Auto) 10.5 % (0.0-10.0) H 07/19/17 10:30 Eos % (Auto) 1.4 % (0.0-4.0) 07/19/17 10:30 Baso % (Auto) 0.4 % (0.0-2.0) 07/19/17 10:30 Neut # (Auto) 7.3 K/uL (1.8-7.0) H 07/19/17 10:30 Lymph # (Auto) 1.4 K/uL (1.0-4.3) 07/19/17 10:30 [place] # (Auto) 1.0 K/uL (0.0-0.8) H 07/19/17 10:30 Eos # (Auto) 0.1 K/uL (0.0-0.7) 07/19/17 10:30 Baso # (Auto) 0.0 K/uL (0.0-0.2) 07/19/17 10:30 Neutrophils % (Manual) 87 % (42-75) H 07/17/17 01:53 Band Neutrophils % 1 % (0-2) 07/17/17 01:53 Lymphocytes % (Manual) 7 % (20-50) L 07/17/17 01:53 Reactive Lymphs % 1 % (0-0) H 07/17/17 01:53 Monocytes % (Manual) 4 % (0-10) 07/17/17 01:53 Platelet Estimate Normal (NORMAL) 07/17/17 01:53 Hypochromasia (manual) Slight 07/17/17 01:53 Anisocytosis (manual) Slight 07/17/17 01:53 Acanthocytes (Spur) Slight 07/17/17 01:53 PT 11.7 Seconds (9.8-13.1) 07/17/17 01:53 INR 1.1 (0.9-1.2) 07/17/17 01:53 APTT 27.9 Seconds (25.6-37.1) 07/17/17 01:53 pO2 36 mm/Hg (30-55) 07/17/17 00:52 VBG pH 7.49 (7.32-7.43) H 07/17/17 00:52 VBG pCO2 40 mmHg (40-60) 07/17/17 00:52 VBG HCO3 29.4 mmol/L 07/17/17 00:52 VBG Total CO2 31.7 mmol/L (22-28) H 07/17/17 00:52 VBG O2 Sat (Calc) 72.0 % (40-65) H 07/17/17 00:52 VBG Base Excess 6.6 mmol/L (0.0-2.0) H 07/17/17 00:52 VBG Potassium 3.7 mmol/L (3.6-5.2) 07/17/17 00:52 Sodium 138.0 mmol/L (132-148) 07/17/17 00:52 Chloride 104.0 mmol/L (98-107) 07/17/17 00:52 Glucose 139 mg/dL (65-105) H 07/17/17 00:52 Lactate 1.3 mmol/L (0.7-2.1) 07/17/17 00:52 FiO2 21.0 % 07/17/17 00:52 Sodium 137 mmol/l (132-148) 07/21/17 04:55 Potassium 3.6 MMOL/L (3.6-5.0) 07/21/17 04:55 Chloride 98 mmol/L (98-107) 07/21/17 04:55 Carbon Dioxide 25 mmol/L (22-30) 07/21/17 04:55 Anion Gap 18 (10-20) 07/21/17 04:55 BUN 34 mg/dl (7-17) H 07/21/17 04:55 Creatinine 1.2 mg/dl (0.7-1.2) 07/21/17 04:55 Est GFR ( Amer) 52 07/21/17 04:55 Est GFR (Non-Af Amer) 43 07/21/17 04:55 Random Glucose 93 mg/dL (65-105) 07/21/17 04:55 Calcium 8.8 mg/dL (8.4-10.2) 07/21/17 04:55 Total Bilirubin 0.5 mg/dl (0.2-1.3) 07/18/17 05:00 AST 50 U/L (14-36) H D 07/18/17 05:00 ALT 58 U/L (9-52) H D 07/18/17 05:00 Alkaline Phosphatase 50 U/L (38-126) 07/18/17 05:00 Troponin I 0.0190 ng/mL (0.00-0.120) 07/18/17 20:30 NT-Pro-B Natriuret Pep 1060 pg/ml (0-900) H 07/20/17 15:55 Total Protein 7.1 G/DL (6.3-8.2) 07/18/17 05:00 Albumin 3.8 g/dL (3.5-5.0) 07/18/17 05:00 Globulin 3.3 gm/dL (2.2-3.9) 07/18/17 05:00 Albumin/Globulin Ratio 1.1 (1.0-2.1) 07/18/17 05:00 Venous Blood Potassium 3.7 mmol/L (3.6-5.2) 07/17/17 00:52 Urine Color Straw (YELLOW) 07/17/17 11:53 Urine Clarity Clear (Clear) 07/17/17 11:53 Urine pH 6.0 (5.0-8.0) 07/17/17 11:53 Ur Specific [place] 1.009 (1.003-1.030) 07/17/17 11:53 Urine Protein Negative mg/dL (NEGATIVE) 07/17/17 11:53 Urine Glucose (UA) Neg mg/dL (Normal) 07/17/17 11:53 Urine Ketones Negative mg/dL (NEGATIVE) 07/17/17 11:53 Urine Blood Negative (NEGATIVE) 07/17/17 11:53 Urine Nitrate Negative (NEGATIVE) 07/17/17 11:53 Urine Bilirubin Negative (NEGATIVE) 07/17/17 11:53 Urine Urobilinogen 0.2-1.0 mg/dL (0.2-1.0) 07/17/17 11:53 Ur Leukocyte Esterase Neg Kj/uL (Negative) 07/17/17 11:53 Urine RBC (Auto) < 1 /hpf (0-3) 07/17/17 11:53 Ur Squamous Epith Cells < 1 /hpf (0-5) 07/17/17 11:53 Influenza Typ A,B (EIA) Negative for flu a/b (NEGATIVE) 07/17/17 01:46 - Hospital Course Hospital Course: 81 yo female with history of Cardiomyopathy with AICD, CHF, Pulmonary HTN, CAD , Left Breast Cancer , COPD and Hypothyroidism , was brought in because of SOB not relieved with PO Lasix. The patient called her PMD Dr Gomez who advised her to take an extra dose of Lasix. Aside from urinating a lot, her condition did not improved. She called 911 and was brought in by EMS to the ER. Pt was admitted to Telemetry. She was started on IV Lasix . Troponin negative. Cardio was consulted - Dr Da Silva rec starting Milrinone drip and Sildenafil. Pt's condition improved with Milrinone drip - now d/c and changed to Lasix. 1. CHF exacerbation, Systolic and Diastolic Dysfunction Pulmonary Hypertension, secondary to left heart failure Pt on Milrinone drip- now d/c by DR Da Silva SOB improved , proBNP now normal continue IV Lasix, Losartan and Metoprolol continue Amiodarone , Revatio cardiology consult with Dr Da Silva 2. COPD, chronic asymptomatic continue Duoneb via nebulizer q 4hrs prn Pulm consult =- Dr Gomez- discussed case 3. Leukocytosis, likely reactive resolved 4. Acute Kidney Injury on CKD stage III worsened by Diuretics, CHF now improving 5. Hx of Breast CA cont Arimidex 6. Hypothyroidism cont Levothyroxine DVT proph - Lovenox Discharge Exam - Head Exam Head Exam: ATRAUMATIC, NORMAL INSPECTION, NORMOCEPHALIC - Eye Exam Eye Exam: EOMI, Normal appearance Pupil Exam: NORMAL ACCOMODATION - ENT Exam ENT Exam: Mucous Membranes Moist, Normal External Ear Exam - Neck Exam Neck exam: Full Rom - Respiratory Exam Respiratory Exam: Rales, NORMAL BREATHING PATTERN. absent: Wheezes, Respiratory Distress - Cardiovascular Exam Cardiovascular Exam: REGULAR RHYTHM, +S1, +S2 - GI/Abdominal Exam GI & Abdominal Exam: Normal Bowel Sounds, Soft. absent: Tenderness - Extremities Exam Extremities exam: full ROM, normal capillary refill, pedal pulses present - Back Exam Back exam: FULL ROM. absent: CVA tenderness (L), CVA tenderness (R) - Neurological Exam Neurological exam: Alert, CN II-XII Intact, Oriented x3, Reflexes Normal - Psychiatric Exam Psychiatric exam: Normal Affect, Normal Mood - Skin Skin Exam: Dry, Normal Color, Warm Discharge Plan - Follow Up Plan Condition: IMPROVED Disposition: TRANSF TO SNF Instructions: Heart Failure, Adult (DC), Exacerbation of COPD (DC) Additional Instructions: d/c to TCU Referrals: Bernard Da Silva MD [Staff Provider] - Filiberto Gomez MD [Staff Provider] -
[2017-07-21 12:13] VITALS: BP 97/55; TEMP 98.2; O2SAT 95
[2017-07-21] MEDS: Metoprolol Succinate 50 mg XL Tab PO SCH (12:22)
[2017-07-21 12:23] VITALS: PULSE 62
== END 2017-07-21 14:09 | DRG 291 ==
LOC: H.ER 00:06 → H.ERHOLD 03:19 → H.TEL 05:50
PROC: 3E0F7GC Introduction of Other Therapeutic Substance into Respiratory Tract, Via Natural or Artificial Opening (ICD-10-PCS; principal; 2017-07-17)
DX: I13.0 Hypertensive heart and chronic kidney disease with heart failure and stage 1 through stage 4 chronic kidney disease, or unspecified chronic kidney disease (principal); I50.43 Acute on chronic combined systolic (congestive) and diastolic (congestive) heart failure; N17.9 Acute kidney failure, unspecified; I47.2 Ventricular tachycardia; N18.3 Chronic kidney disease, stage 3 (moderate); I27.22 Pulmonary hypertension due to left heart disease; I25.5 Ischemic cardiomyopathy; I25.10 Atherosclerotic heart disease of native coronary artery without angina pectoris; E03.9 Hypothyroidism, unspecified; E78.00 Pure hypercholesterolemia, unspecified; J44.9 Chronic obstructive pulmonary disease, unspecified; D72.828 Other elevated white blood cell count; I25.2 Old myocardial infarction; M81.0 Age-related osteoporosis without current pathological fracture; M19.90 Unspecified osteoarthritis, unspecified site; Z95.810 Presence of automatic (implantable) cardiac defibrillator; Z95.5 Presence of coronary angioplasty implant and graft; Z86.73 Personal history of transient ischemic attack (TIA), and cerebral infarction without residual deficits; Z87.01 Personal history of pneumonia (recurrent); Z87.440 Personal history of urinary (tract) infections; Z85.3 Personal history of malignant neoplasm of breast; Z87.891 Personal history of nicotine dependence; Z79.82 Long term (current) use of aspirin; Z79.811 Long term (current) use of aromatase inhibitors

== ENCOUNTER 2017-07-21 11:37 | Inpatient (IN) | payer OTHER, MEDICARE ==
[2017-07-21 13:32] VITALS: BMI 28.1
[2017-07-21] MEDS: Sildenafil 20 MG TAB PO SCH (16:47)
[2017-07-22] MEDS: Levothyroxine 25 MCG TAB PO SCH (05:57)
[2017-07-22] MEDS: Lidocaine 5% Patch TD SCH (08:18)
[2017-07-22] MEDS: Enoxaparin 30 mg Syringe SC SCH (08:19)
[2017-07-22] MEDS: Calcium-Vit D 500 mg-200 Units Tab UD PO SCH (08:19)
[2017-07-22] MEDS: Cholecalciferol 1,000 INTLU TAB PO SCH (08:19)
[2017-07-22] MEDS: Sildenafil 20 MG TAB PO SCH ×3 (08:19→16:29)
[2017-07-22] MEDS: Multivitamin With Minerals Tab PO SCH (08:19)
[2017-07-22] MEDS: Metoprolol Succinate 50 mg XL Tab PO SCH (08:20)
[2017-07-22] MEDS ORDERED: Enoxaparin 30 mg Syringe SC SCH (09:00)
--- NOTE | 2017-07-22 09:59 | CP.PCM.CON ---
History of Present Illness - History of Present Illness History of Present Illness: This 81 year old female is well known to me from recent admission to acute medicine as well as the outpatient setting. She was recently admitted to hospital because of decompensated chronic CHF. She also has pulmonary hypertension which was responsive to vasodilator therapy for which she was placed on sildenafil. She also has underlying COPD secondary to a prior cigarette habit. 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 She complains of generalized weakness and easy fatigue as well as exertional dyspnea. Past Patient History - Infectious Disease Hx of Infectious Diseases: None - Tetanus Immunizations Tetanus Immunization: Unknown - Past Medical History & Family History Past Medical History?: Yes Pertinent Family History: CAD, arthritis - Past Social History Smoking Status: Former Smoker Chewing Tobacco Use: No Cigar Use: No Alcohol: None Drugs: Denies Home Situation {Lives}: Alone - CARDIAC Hx Cardia Arrhythmia: Yes Hx Congestive Heart Failure: Yes Hx Heart Attack: Yes (x 2) Hx Hypercholesterolemia: Yes Hx Hypertension: Yes Hx Pacemaker: Yes (AICD) Hx Peripheral Edema: Yes - PULMONARY Hx Bronchitis: Yes Hx Chronic Obstructive Pulmonary Disease (COPD): Yes Hx Pneumonia: Yes Other/Comment: pulmonary hypertension - NEUROLOGICAL Hx Transient Ischemic Attacks (TIA): Yes Other/Comment: cognitive decline - HEENT Hx Cataracts: Yes Other/Comment: chronic mastoiditis, right. - RENAL Hx Chronic Kidney Disease: No - ENDOCRINE/METABOLIC Hx Hypothyroidism: Yes - HEMATOLOGICAL/ONCOLOGICAL Hx Blood Disorders: No Hx Cancer: Yes (breast) Hx Human Immunodeficiency Virus (HIV): No Other/Comment: RT - INTEGUMENTARY Hx Dermatological Problems: No - MUSCULOSKELETAL/RHEUMATOLOGICAL Hx Arthritis: Yes Hx Back Pain: Yes Hx Falls: No Hx Osteoporosis: Yes Hx Spinal Stenosis: Yes - GASTROINTESTINAL Hx Gastrointestinal Disorders: No - GENITOURINARY/GYNECOLOGICAL Hx Urinary Tract Infection: Yes (with sepsis) - PSYCHIATRIC Hx Psychophysiologic Disorder: No Hx Substance Use: No - SURGICAL HISTORY Hx Appendectomy: Yes Hx Cholecystectomy: Yes Hx Coronary Stent: Yes Hx Mastectomy: Yes (left) Other/Comment: AICD implant - ANESTHESIA Hx Anesthesia: Yes Hx Anesthesia Reactions: No Hx Malignant Hyperthermia: No Meds Allergies/Adverse Reactions: Allergies Allergy/AdvReac Type Severity Reaction Status Date / Time No Known Allergies Allergy Verified 07/17/17 00:29 - Medications Medications: Current Medications Amiodarone HCl (Cordarone) 200 mg PO DAILY [facility] Last Admin: 07/22/17 08:19 Dose: 200 mg Anastrozole (Arimidex 1 Mg Tab) 1 mg PO DAILY [facility] Last Admin: 07/22/17 08:22 Dose: 1 mg Ascorbic Acid (Vitamin C 500 Mg Tab) 500 mg PO DAILY [facility] Last Admin: 07/22/17 08:20 Dose: 500 mg Aspirin (Ecotrin) 81 mg PO DAILY [facility] Last Admin: 07/22/17 08:19 Dose: 81 mg Atorvastatin Calcium (Lipitor) 20 mg PO HS [facility] Last Admin: 07/21/17 21:01 Dose: 20 mg Calcium/Vitamin D (Oyster Shell Calcium/Vitamin D 500 Mg-200 Iu) 1 tab PO DAILY [facility] Last Admin: 07/22/17 08:19 Dose: 1 tab Cholecalciferol (Vitamin D) 1,000 intlu PO DAILY [facility] Last Admin: 07/22/17 08:19 Dose: 1,000 intlu Docusate Sodium (Colace) 200 mg PO DAILY [facility] Last Admin: 07/22/17 08:23 Dose: 200 mg Enoxaparin Sodium (Lovenox) 30 mg SC DAILY [facility] PRN Reason: Protocol Last Admin: 07/22/17 08:19 Dose: 30 mg Furosemide (Lasix) 40 mg PO DAILY [facility] Last Admin: 07/22/17 08:20 Dose: 40 mg Lactulose (Enulose) 20 gm PO DAILY PRN PRN Reason: Constipation Levothyroxine Sodium (Synthroid) 25 mcg PO DAILY@0630 [facility] Last Admin: 07/22/17 05:57 Dose: 25 mcg Lidocaine (Lidoderm) 1 ea TD DAILY [facility] Last Admin: 07/22/17 08:18 Dose: 1 ea Losartan Potassium (Cozaar) 25 mg PO DAILY [facility] Last Admin: 07/22/17 08:20 Dose: 25 mg Memantine (Namenda) 10 mg PO DAILY [facility] Last Admin: 07/22/17 08:20 Dose: 10 mg Metoprolol Succinate (Toprol Xl) 50 mg PO DAILY [facility] Last Admin: 07/22/17 08:20 Dose: 50 mg Multivitamins/Minerals (Therapeutic-M Tab) 1 tab PO DAILY [facility] Last Admin: 07/22/17 08:19 Dose: 1 tab Sildenafil Citrate (Revatio) 20 mg PO TID [facility] Last Admin: 07/22/17 08:19 Dose: 20 mg Tramadol HCl (Ultram) 50 mg PO Q6 PRN PRN Reason: Pain, severe (8-10) Vitamin E (Vitamin E 400 Units Cap) 400 intlu PO DAILY [facility] Last Admin: 07/22/17 08:19 Dose: 400 intlu Physical Exam - Additional Findings Additional findings: Seated in bedside chair, appears comfortable. No dependant edema of the ankles, no cyanosis. Pharynx is pink, MM dry, no exudate. Nares are patent bilaterally, no bleeding or exudate. Neck is supple, trachea midline, no JVD, no carotid bruit. No dullness on chest percussion, equal expansion. Breath sounds are diminished bilaterally w/o audible wheezing. Few dry basal rales bilaterally, no rhonchi. Heart sounds are distant, rhythm is regular, + systolic murmur at apex. Abdomen is soft and non-tender with normal BS. No CVA tenderness. Results - Vital Signs Recent Vital Signs: Last Vital Signs Temp 97.9 F 07/22/17 07:45 Pulse 64 07/22/17 08:20 Resp 18 07/22/17 07:45 BP 168/74 H 07/22/17 08:20 Pulse Ox 100 07/22/17 07:45 - Labs Result Diagrams: 07/22/17 10:30 07/22/17 10:30 Assessment & Plan (1) Chronic congestive heart failure Status: Chronic Priority: High Comment: Continue current medical regimen. (2) Physical deconditioning Status: Chronic Priority: Medium Comment: For PT/OT using supplemental O2 if needed. (3) COPD (chronic obstructive pulmonary disease) Status: Chronic Priority: Medium Comment: Nebulizer treatments and supplemental oxygen as needed. (4) Pulmonary hypertension Status: Chronic Priority: High Comment: Currently taking sildenafil. Overnight oxygen via nasal canula at 2 LPM. (5) Nocturnal hypoxemia Status: Chronic Priority: High Comment: This may be secondary to both pulmonary hypertension as well as COPD. Overnight SpO2 recording on room air showed 3.5 hrs of SpO2 <89%. She would benefit from having home oxygen for use during sleep. - Date & Time Date: 07/22/17 Time: 09:58
[2017-07-22 10:43] LABS: HEMOGLOBIN 12.3 g/dL (12.0-16.0); MEAN CELL VOLUME 98.6 fl (81.0-99.0); MEAN CORPUSCULAR HEMOGLOBIN 33.4 pg (27.0-31.0); MEAN CORPUSCULAR HGB CONC 33.9 g/dL (33.0-37.0); RBC 3.69 Mil/uL (3.80-5.20); RED CELL DISTRIBUTION WIDTH 14.2 % (11.5-14.5); WHITE BLOOD COUNT 10.1 K/uL (4.8-10.8)
[2017-07-22] MEDS: Potassium Chloride 20 mEq ER Tab PO SCH (15:48)
--- NOTE | 2017-07-22 16:31 | CP.PCM.HP ---
History of Present Illness - History of Present Illness History of Present Illness: 81 yo female with history of Cardiomyopathy with AICD, COPD, Pulmonary HTN, Left Breast Cancer and CAD brought in because of SOB not relieved with PO Lasix. She was diagnosed with CHF exacerbation and admitted in telemetry. Patient was started on IV Lasix and Milrinone drip. She did well and now was admitted to TCU for therapy and continuation of management. Present on Admission - Present on Admission Any Indicators Present on Admission: No History of DVT/PE: No History of Uncontrolled Diabetes: No Urinary Catheter: No Decubitus Ulcer Present: No Review of Systems - Review of Systems All systems: reviewed and no additional remarkable complaints except (aside from those mentioned above, 12 point system review were negative by me) Past Patient History - Infectious Disease Hx of Infectious Diseases: None - Tetanus Immunizations Tetanus Immunization: Unknown - Past Medical History & Family History Past Medical History?: Yes - Past Social History Smoking Status: Former Smoker Chewing Tobacco Use: No Cigar Use: No Alcohol: None Drugs: Denies Home Situation {Lives}: Alone - CARDIAC Hx Cardia Arrhythmia: Yes Hx Congestive Heart Failure: Yes Hx Heart Attack: Yes (x 2) Hx Hypercholesterolemia: Yes Hx Hypertension: Yes Hx Pacemaker: Yes (AICD) Hx Peripheral Edema: Yes - PULMONARY Hx Bronchitis: Yes Hx Chronic Obstructive Pulmonary Disease (COPD): Yes Hx Pneumonia: Yes Other/Comment: pulmonary hypertension - NEUROLOGICAL Hx Transient Ischemic Attacks (TIA): Yes Other/Comment: cognitive decline - HEENT Hx Cataracts: Yes Other/Comment: chronic mastoiditis, right. - RENAL Hx Chronic Kidney Disease: No - ENDOCRINE/METABOLIC Hx Hypothyroidism: Yes - HEMATOLOGICAL/ONCOLOGICAL Hx Blood Disorders: No Hx Cancer: Yes (breast) Hx Human Immunodeficiency Virus (HIV): No Other/Comment: RT - INTEGUMENTARY Hx Dermatological Problems: No - MUSCULOSKELETAL/RHEUMATOLOGICAL Hx Arthritis: Yes Hx Back Pain: Yes Hx Falls: No Hx Osteoporosis: Yes Hx Spinal Stenosis: Yes - GASTROINTESTINAL Hx Gastrointestinal Disorders: No - GENITOURINARY/GYNECOLOGICAL Hx Urinary Tract Infection: Yes (with sepsis) - PSYCHIATRIC Hx Psychophysiologic Disorder: No Hx Substance Use: No - SURGICAL HISTORY Hx Appendectomy: Yes Hx Cholecystectomy: Yes Hx Coronary Stent: Yes Hx Mastectomy: Yes (left) Other/Comment: AICD implant - ANESTHESIA Hx Anesthesia: Yes Hx Anesthesia Reactions: No Hx Malignant Hyperthermia: No Meds Allergies/Adverse Reactions: Allergies Allergy/AdvReac Type Severity Reaction Status Date / Time No Known Allergies Allergy Verified 07/17/17 00:29 Physical Exam - Constitutional Appears: No Acute Distress - Head Exam Head Exam: ATRAUMATIC - Eye Exam Eye Exam: absent: Scleral icterus - ENT Exam ENT Exam: Mucous Membranes Moist - Neck Exam Neck exam: Negative for: Meningismus - Respiratory Exam Respiratory Exam: absent: Rales, Rhonchi, Wheezes, Respiratory Distress - Cardiovascular Exam Cardiovascular Exam: REGULAR RHYTHM, +S1, +S2 - GI/Abdominal Exam GI & Abdominal Exam: Soft. absent: Tenderness - Rectal Exam Rectal Exam: Deferred - Extremities Exam Extremities exam: Negative for: calf tenderness, pedal edema - Back Exam Back exam: NORMAL INSPECTION - Neurological Exam Neurological exam: Alert, Oriented x3 - Psychiatric Exam Psychiatric exam: Normal Affect - Skin Skin Exam: Dry, Intact Results - Vital Signs Recent Vital Signs: Last Vital Signs Temp 97.9 F 07/22/17 07:45 Pulse 64 07/22/17 08:20 Resp 18 07/22/17 07:45 BP 168/74 H 07/22/17 08:20 Pulse Ox 100 07/22/17 07:45 - Labs Result Diagrams: 07/22/17 10:30 07/22/17 10:30 Labs: Laboratory Results - last 24 hr 07/22/17 07/22/17 10:30 10:30 WBC 10.1 RBC 3.69 L Hgb 12.3 D Hct 36.3 MCV 98.6 MCH 33.4 H MCHC 33.9 RDW 14.2 Plt Count 322 Sodium 139 Potassium 3.1 L Chloride 99 Carbon Dioxide 26 Anion Gap 17 BUN 24 H Creatinine 1.2 Est GFR ( Amer) 52 Est GFR (Non-Af Amer) 43 Random Glucose 168 H Calcium 9.0 Assessment & Plan - Assessment and Plan (Free Text) Assessment: 81 yo female with history of Cardiomyopathy with AICD, COPD, Pulmonary HTN, Left Breast Cancer and CAD brought in because of SOB not relieved with PO Lasix. She was diagnosed with CHF exacerbation and admitted in telemetry. Patient was started on IV Lasix and Milrinone drip. She did well and now was admitted to TCU for therapy and continuation of management. 1. CHF exacerbation, Systolic and Diastolic Dysfunction Pulmonary Hypertension, secondary to left heart failure off Milrinone drip feeling better without SOB continue IV Lasix, Losartan and Metoprolol continue Amiodarone, Sildenafil cardiology consult with Dr Da Silva 2. COPD, chronic asymptomatic continue Duoneb via nebulizer q 4hrs prn Pulmonary consult with Dr Gomez 3. Hx of Breast CA continue Arimidex 4. Hypothyroidism continue Levothyroxine 5. DVT prophylaxis on Lovenox
[2017-07-23] MEDS: Levothyroxine 25 MCG TAB PO SCH (05:55)
[2017-07-23] MEDS: Multivitamin With Minerals Tab PO SCH (08:21)
[2017-07-23] MEDS: Cholecalciferol 1,000 INTLU TAB PO SCH (08:21)
[2017-07-23] MEDS: Metoprolol Succinate 50 mg XL Tab PO SCH (08:21)
[2017-07-23] MEDS: Sildenafil 20 MG TAB PO SCH ×3 (08:21→17:14)
[2017-07-23] MEDS: Calcium-Vit D 500 mg-200 Units Tab UD PO SCH (08:22)
[2017-07-23] MEDS: Potassium Chloride 20 mEq ER Tab PO SCH (08:22)
[2017-07-23] MEDS: Enoxaparin 30 mg Syringe SC SCH (08:23)
[2017-07-23] MEDS: Lidocaine 5% Patch TD SCH (08:24)
--- NOTE | 2017-07-23 09:15 | CP.PCM.PN ---
Subjective - Date & Time of Evaluation Date of Evaluation: 07/23/17 Time of Evaluation: 09:15 - Subjective Subjective: Patient was seen in the gym, participating in physical therapy. She claims to be feeling much improved and is able to carry out more activities than before. She has been stable clinically and continues to have vital signs WNL. All her medical regimen has remained the same as when she was released from acute medicine. No changes in the current regimen are expected. Objective - Vital Signs/Intake and Output Vital Signs (last 24 hours): Temp Pulse Resp BP Pulse Ox 98.6 F 62 20 136/62 91 L 07/22/17 21:24 07/23/17 08:22 07/22/17 21:24 07/23/17 08:22 07/22/17 21:24 - Medications Medications: Current Medications Amiodarone HCl (Cordarone) 200 mg PO DAILY [facility] Last Admin: 07/23/17 08:22 Dose: 200 mg Anastrozole (Arimidex 1 Mg Tab) 1 mg PO DAILY [facility] Last Admin: 07/23/17 08:24 Dose: 1 mg Ascorbic Acid (Vitamin C 500 Mg Tab) 500 mg PO DAILY [facility] Last Admin: 07/23/17 08:21 Dose: 500 mg Aspirin (Ecotrin) 81 mg PO DAILY [facility] Last Admin: 07/23/17 08:21 Dose: 81 mg Atorvastatin Calcium (Lipitor) 20 mg PO HS [facility] Last Admin: 07/22/17 21:30 Dose: 20 mg Calcium/Vitamin D (Oyster Shell Calcium/Vitamin D 500 Mg-200 Iu) 1 tab PO DAILY [facility] Last Admin: 07/23/17 08:22 Dose: 1 tab Cholecalciferol (Vitamin D) 1,000 intlu PO DAILY [facility] Last Admin: 07/23/17 08:21 Dose: 1,000 intlu Docusate Sodium (Colace) 200 mg PO DAILY [facility] Last Admin: 07/23/17 08:21 Dose: 200 mg Enoxaparin Sodium (Lovenox) 30 mg SC DAILY [facility] PRN Reason: Protocol Last Admin: 07/23/17 08:23 Dose: 30 mg Furosemide (Lasix) 40 mg PO DAILY [facility] Last Admin: 07/23/17 08:21 Dose: 40 mg Lactulose (Enulose) 20 gm PO DAILY PRN PRN Reason: Constipation Levothyroxine Sodium (Synthroid) 25 mcg PO DAILY@0630 [facility] Last Admin: 07/23/17 05:55 Dose: 25 mcg Lidocaine (Lidoderm) 1 ea TD DAILY [facility] Last Admin: 07/23/17 08:24 Dose: 1 ea Losartan Potassium (Cozaar) 25 mg PO DAILY [facility] Last Admin: 07/23/17 08:22 Dose: 25 mg Memantine (Namenda) 10 mg PO DAILY [facility] Last Admin: 07/23/17 08:22 Dose: 10 mg Metoprolol Succinate (Toprol Xl) 50 mg PO DAILY [facility] Last Admin: 07/23/17 08:21 Dose: 50 mg Multivitamins/Minerals (Therapeutic-M Tab) 1 tab PO DAILY [facility] Last Admin: 07/23/17 08:21 Dose: 1 tab Potassium Chloride (K-Dur 20 Meq Er Tab) 20 meq PO DAILY [facility] Last Admin: 07/23/17 08:22 Dose: 20 meq Sildenafil Citrate (Revatio) 20 mg PO TID [facility] Last Admin: 07/23/17 08:21 Dose: 20 mg Tramadol HCl (Ultram) 50 mg PO Q6 PRN PRN Reason: Pain, severe (8-10) Vitamin E (Vitamin E 400 Units Cap) 400 intlu PO DAILY [facility] Last Admin: 07/23/17 08:21 Dose: 400 intlu - Labs Labs: 07/22/17 10:30 07/22/17 10:30 Assessment and Plan (1) Chronic congestive heart failure Status: Chronic (2) Physical deconditioning Status: Chronic (3) COPD (chronic obstructive pulmonary disease) Status: Chronic (4) Pulmonary hypertension Status: Chronic (5) Nocturnal hypoxemia Status: Chronic
--- NOTE | 2017-07-23 13:59 | CP.PCM.CON ---
History of Present Illness - History of Present Illness History of Present Illness: Consultation for evaluation of CHF/Pulmonary HTN / NIDCMP / V-tach HPI: 81 year old female with hx of CAD s/p PCI of LAD 5 years ago has been followed by me since then. Recent worsening of EF with dilated CMP , v-tach requiring ablation and ICD on amiodarone, pulmonary HTN admitted to [facility] for CHF exacerbation , improved with milrinone therapy and subsequently transferred to TCU. Clinically doing well, denies any SOB. Doing well with PT Review of Systems - Review of Systems Systems not reviewed;Unavailable: Acuity of Condition - Constitutional Constitutional: As Per HPI - EENT Eyes: As Per HPI Ears: As Per HPI Nose/Mouth/Throat: As Per HPI - Breasts Breasts: As Per HPI - Cardiovascular Cardiovascular: As Per HPI - Respiratory Respiratory: As Per HPI - Gastrointestinal Gastrointestinal: As Per HPI - Genitourinary Genitourinary: As Per HPI - Reproductive: Female Reproductive:Female: As Per HPI - Menstruation Menstruation: As Per HPI - Musculoskeletal Musculoskeletal: As Per HPI - Integumentary Integumentary: As Per HPI - Neurological Neurological: As Per HPI - Psychiatric Psychiatric: As Per HPI - Endocrine Endocrine: As Per HPI - Hematologic/Lymphatic Hematologic: As Per HPI Past Patient History - Infectious Disease Hx of Infectious Diseases: None - Tetanus Immunizations Tetanus Immunization: Unknown - Past Medical History & Family History Past Medical History?: Yes - Past Social History Smoking Status: Former Smoker Chewing Tobacco Use: No Cigar Use: No Alcohol: None Drugs: Denies Home Situation {Lives}: Alone - CARDIAC Hx Cardia Arrhythmia: Yes Hx Congestive Heart Failure: Yes Hx Heart Attack: Yes (x 2) Hx Hypercholesterolemia: Yes Hx Hypertension: Yes Hx Pacemaker: Yes (AICD) Hx Peripheral Edema: Yes - PULMONARY Hx Bronchitis: Yes Hx Chronic Obstructive Pulmonary Disease (COPD): Yes Hx Pneumonia: Yes Other/Comment: pulmonary hypertension - NEUROLOGICAL Hx Transient Ischemic Attacks (TIA): Yes Other/Comment: cognitive decline - HEENT Hx Cataracts: Yes Other/Comment: chronic mastoiditis, right. - RENAL Hx Chronic Kidney Disease: No - ENDOCRINE/METABOLIC Hx Hypothyroidism: Yes - HEMATOLOGICAL/ONCOLOGICAL Hx Blood Disorders: No Hx Cancer: Yes (breast) Hx Human Immunodeficiency Virus (HIV): No Other/Comment: RT - INTEGUMENTARY Hx Dermatological Problems: No - MUSCULOSKELETAL/RHEUMATOLOGICAL Hx Arthritis: Yes Hx Back Pain: Yes Hx Falls: No Hx Osteoporosis: Yes Hx Spinal Stenosis: Yes - GASTROINTESTINAL Hx Gastrointestinal Disorders: No - GENITOURINARY/GYNECOLOGICAL Hx Urinary Tract Infection: Yes (with sepsis) - PSYCHIATRIC Hx Psychophysiologic Disorder: No Hx Substance Use: No - SURGICAL HISTORY Hx Appendectomy: Yes Hx Cholecystectomy: Yes Hx Coronary Stent: Yes Hx Mastectomy: Yes (left) Other/Comment: AICD implant - ANESTHESIA Hx Anesthesia: Yes Hx Anesthesia Reactions: No Hx Malignant Hyperthermia: No Meds Allergies/Adverse Reactions: Allergies Allergy/AdvReac Type Severity Reaction Status Date / Time No Known Allergies Allergy Verified 07/17/17 00:29 - Medications Medications: Current Medications Amiodarone HCl (Cordarone) 200 mg PO DAILY [facility] Last Admin: 07/23/17 08:22 Dose: 200 mg Anastrozole (Arimidex 1 Mg Tab) 1 mg PO DAILY [facility] Last Admin: 07/23/17 08:24 Dose: 1 mg Ascorbic Acid (Vitamin C 500 Mg Tab) 500 mg PO DAILY [facility] Last Admin: 07/23/17 08:21 Dose: 500 mg Aspirin (Ecotrin) 81 mg PO DAILY [facility] Last Admin: 07/23/17 08:21 Dose: 81 mg Atorvastatin Calcium (Lipitor) 20 mg PO HS [facility] Last Admin: 07/22/17 21:30 Dose: 20 mg Calcium/Vitamin D (Oyster Shell Calcium/Vitamin D 500 Mg-200 Iu) 1 tab PO DAILY [facility] Last Admin: 07/23/17 08:22 Dose: 1 tab Cholecalciferol (Vitamin D) 1,000 intlu PO DAILY [facility] Last Admin: 07/23/17 08:21 Dose: 1,000 intlu Docusate Sodium (Colace) 200 mg PO DAILY [facility] Last Admin: 07/23/17 08:21 Dose: 200 mg Enoxaparin Sodium (Lovenox) 30 mg SC DAILY [facility] PRN Reason: Protocol Last Admin: 07/23/17 08:23 Dose: 30 mg Furosemide (Lasix) 40 mg PO DAILY [facility] Last Admin: 07/23/17 08:21 Dose: 40 mg Lactulose (Enulose) 20 gm PO DAILY PRN PRN Reason: Constipation Levothyroxine Sodium (Synthroid) 25 mcg PO DAILY@0630 [facility] Last Admin: 07/23/17 05:55 Dose: 25 mcg Lidocaine (Lidoderm) 1 ea TD DAILY [facility] Last Admin: 07/23/17 08:24 Dose: 1 ea Losartan Potassium (Cozaar) 25 mg PO DAILY [facility] Last Admin: 07/23/17 08:22 Dose: 25 mg Memantine (Namenda) 10 mg PO DAILY [facility] Last Admin: 07/23/17 08:22 Dose: 10 mg Metoprolol Succinate (Toprol Xl) 50 mg PO DAILY [facility] Last Admin: 07/23/17 08:21 Dose: 50 mg Multivitamins/Minerals (Therapeutic-M Tab) 1 tab PO DAILY [facility] Last Admin: 07/23/17 08:21 Dose: 1 tab Potassium Chloride (K-Dur 20 Meq Er Tab) 20 meq PO DAILY [facility] Last Admin: 07/23/17 08:22 Dose: 20 meq Sildenafil Citrate (Revatio) 20 mg PO TID [facility] Last Admin: 07/23/17 12:23 Dose: 20 mg Tramadol HCl (Ultram) 50 mg PO Q6 PRN PRN Reason: Pain, severe (8-10) Vitamin E (Vitamin E 400 Units Cap) 400 intlu PO DAILY [facility] Last Admin: 07/23/17 08:21 Dose: 400 intlu Physical Exam - Constitutional Appears: Well - Head Exam Head Exam: ATRAUMATIC, NORMAL INSPECTION, NORMOCEPHALIC - Eye Exam Eye Exam: EOMI, Normal appearance, PERRL Pupil Exam: NORMAL ACCOMODATION, PERRL - ENT Exam ENT Exam: Mucous Membranes Moist, Normal Exam - Neck Exam Neck exam: Positive for: Normal Inspection - Respiratory Exam Respiratory Exam: Clear to Auscultation Bilateral, NORMAL BREATHING PATTERN - Cardiovascular Exam Cardiovascular Exam: REGULAR RHYTHM, RRR, +S1, +S2, Systolic Murmur - GI/Abdominal Exam GI & Abdominal Exam: Normal Bowel Sounds, Soft. absent: Tenderness - Extremities Exam Extremities exam: Positive for: normal inspection - Back Exam Back exam: NORMAL INSPECTION - Neurological Exam Neurological exam: Alert, CN II-XII Intact, Oriented x3, Reflexes Normal - Psychiatric Exam Psychiatric exam: Normal Affect, Normal Mood - Skin Skin Exam: Dry, Intact, Normal Color, Warm Results - Vital Signs Recent Vital Signs: Last Vital Signs Temp 98.2 F 07/23/17 08:00 Pulse 62 07/23/17 08:22 Resp 20 07/23/17 08:00 BP 136/62 07/23/17 08:22 Pulse Ox 95 07/23/17 08:00 - Labs Result Diagrams: 07/22/17 10:30 07/22/17 10:30 Assessment & Plan (1) Systolic and diastolic CHF, acute on chronic Assessment and Plan: cont with BB, arb cont lasix cont sildenafil recheck BNP Status: Acute Priority: High (2) Pulmonary arterial hypertension Assessment and Plan: sildenafil Status: Acute (3) Status post ablation of ventricular arrhythmia Status: Acute Priority: High (4) V-tach Status: Acute (5) CAD (coronary artery disease) Status: Chronic Priority: High (6) CKD (chronic kidney disease) stage 3, GFR 30-59 ml/min Status: Chronic (7) Cardiomyopathy Status: Chronic Priority: High
[2017-07-24] MEDS: Levothyroxine 25 MCG TAB PO SCH (05:45)
[2017-07-24 08:07] VITALS: RESP 20
[2017-07-24] MEDS: Sildenafil 20 MG TAB PO SCH ×3 (08:50→16:48)
[2017-07-24] MEDS: Lidocaine 5% Patch TD SCH (08:50)
[2017-07-24] MEDS: Enoxaparin 30 mg Syringe SC SCH (08:50)
[2017-07-24] MEDS: Cholecalciferol 1,000 INTLU TAB PO SCH (08:51)
[2017-07-24] MEDS: Multivitamin With Minerals Tab PO SCH (08:52)
[2017-07-24] MEDS: Calcium-Vit D 500 mg-200 Units Tab UD PO SCH (08:56)
[2017-07-24] MEDS: Metoprolol Succinate 50 mg XL Tab PO SCH (08:57)
[2017-07-24] MEDS: Potassium Chloride 20 mEq ER Tab PO SCH (09:00)
--- NOTE | 2017-07-24 20:05 | CP.PCM.CON ---
History of Present Illness - History of Present Illness History of Present Illness: 89 year old female admitted to [facility] CHF, cardiomyppathy, left breast Ca CAd Review of Systems - Musculoskeletal Musculoskeletal: Muscle Weakness Past Patient History - Infectious Disease Hx of Infectious Diseases: None - Tetanus Immunizations Tetanus Immunization: Unknown - Past Medical History & Family History Past Medical History?: Yes - Past Social History Smoking Status: Former Smoker Chewing Tobacco Use: No Cigar Use: No Alcohol: None Drugs: Denies Home Situation {Lives}: Alone - CARDIAC Hx Cardia Arrhythmia: Yes Hx Congestive Heart Failure: Yes Hx Heart Attack: Yes (x 2) Hx Hypercholesterolemia: Yes Hx Hypertension: Yes Hx Pacemaker: Yes (AICD) Hx Peripheral Edema: Yes - PULMONARY Hx Bronchitis: Yes Hx Chronic Obstructive Pulmonary Disease (COPD): Yes Hx Pneumonia: Yes Other/Comment: pulmonary hypertension - NEUROLOGICAL Hx Transient Ischemic Attacks (TIA): Yes Other/Comment: cognitive decline - HEENT Hx Cataracts: Yes Other/Comment: chronic mastoiditis, right. - RENAL Hx Chronic Kidney Disease: No - ENDOCRINE/METABOLIC Hx Hypothyroidism: Yes - HEMATOLOGICAL/ONCOLOGICAL Hx Blood Disorders: No Hx Cancer: Yes (breast) Hx Human Immunodeficiency Virus (HIV): No Other/Comment: RT - INTEGUMENTARY Hx Dermatological Problems: No - MUSCULOSKELETAL/RHEUMATOLOGICAL Hx Arthritis: Yes Hx Back Pain: Yes Hx Falls: No Hx Osteoporosis: Yes Hx Spinal Stenosis: Yes - GASTROINTESTINAL Hx Gastrointestinal Disorders: No - GENITOURINARY/GYNECOLOGICAL Hx Urinary Tract Infection: Yes (with sepsis) - PSYCHIATRIC Hx Psychophysiologic Disorder: No Hx Substance Use: No - SURGICAL HISTORY Hx Appendectomy: Yes Hx Cholecystectomy: Yes Hx Coronary Stent: Yes Hx Mastectomy: Yes (left) Other/Comment: AICD implant - ANESTHESIA Hx Anesthesia: Yes Hx Anesthesia Reactions: No Hx Malignant Hyperthermia: No Meds Allergies/Adverse Reactions: Allergies Allergy/AdvReac Type Severity Reaction Status Date / Time No Known Allergies Allergy Verified 07/17/17 00:29 - Medications Medications: Current Medications Amiodarone HCl (Cordarone) 200 mg PO DAILY [facility] Last Admin: 07/24/17 08:52 Dose: 200 mg Anastrozole (Arimidex 1 Mg Tab) 1 mg PO DAILY [facility] Last Admin: 07/24/17 08:54 Dose: 1 mg Ascorbic Acid (Vitamin C 500 Mg Tab) 500 mg PO DAILY [facility] Last Admin: 07/24/17 08:52 Dose: 500 mg Aspirin (Ecotrin) 81 mg PO DAILY [facility] Last Admin: 07/24/17 08:53 Dose: 81 mg Atorvastatin Calcium (Lipitor) 20 mg PO HS [facility] Last Admin: 07/23/17 21:09 Dose: 20 mg Calcium/Vitamin D (Oyster Shell Calcium/Vitamin D 500 Mg-200 Iu) 1 tab PO DAILY [facility] Last Admin: 07/24/17 08:56 Dose: 1 tab Cholecalciferol (Vitamin D) 1,000 intlu PO DAILY [facility] Last Admin: 07/24/17 08:51 Dose: 1,000 intlu Docusate Sodium (Colace) 200 mg PO DAILY [facility] Last Admin: 07/24/17 08:51 Dose: 200 mg Enoxaparin Sodium (Lovenox) 30 mg SC DAILY [facility] PRN Reason: Protocol Last Admin: 07/24/17 08:50 Dose: 30 mg Furosemide (Lasix) 40 mg PO DAILY [facility] Last Admin: 07/24/17 08:55 Dose: 40 mg Lactulose (Enulose) 20 gm PO DAILY PRN PRN Reason: Constipation Levothyroxine Sodium (Synthroid) 25 mcg PO DAILY@0630 [facility] Last Admin: 07/24/17 05:45 Dose: 25 mcg Lidocaine (Lidoderm) 1 ea TD DAILY [facility] Last Admin: 07/24/17 08:50 Dose: 1 ea Losartan Potassium (Cozaar) 25 mg PO DAILY [facility] Last Admin: 07/24/17 08:52 Dose: 25 mg Memantine (Namenda) 10 mg PO DAILY [facility] Last Admin: 07/24/17 08:51 Dose: 10 mg Metoprolol Succinate (Toprol Xl) 50 mg PO DAILY [facility] Last Admin: 07/24/17 08:57 Dose: 50 mg Multivitamins/Minerals (Therapeutic-M Tab) 1 tab PO DAILY [facility] Last Admin: 07/24/17 08:52 Dose: 1 tab Potassium Chloride (K-Dur 20 Meq Er Tab) 20 meq PO DAILY [facility] Last Admin: 07/24/17 09:00 Dose: 20 meq Sildenafil Citrate (Revatio) 20 mg PO TID [facility] Last Admin: 07/24/17 16:48 Dose: 20 mg Tramadol HCl (Ultram) 50 mg PO Q6 PRN PRN Reason: Pain, severe (8-10) Vitamin E (Vitamin E 400 Units Cap) 400 intlu PO DAILY [facility] Last Admin: 07/24/17 08:51 Dose: 400 intlu Physical Exam - Head Exam Head Exam: ATRAUMATIC, NORMAL INSPECTION, NORMOCEPHALIC - Eye Exam Eye Exam: EOMI, Normal appearance Pupil Exam: NORMAL ACCOMODATION - ENT Exam ENT Exam: Mucous Membranes Moist, Normal Exam - Neck Exam Neck exam: Positive for: Normal Inspection - Respiratory Exam Respiratory Exam: Clear to Auscultation Bilateral, NORMAL BREATHING PATTERN - Cardiovascular Exam Cardiovascular Exam: REGULAR RHYTHM - GI/Abdominal Exam GI & Abdominal Exam: Normal Bowel Sounds - Rectal Exam Rectal Exam: NORMAL INSPECTION - Exam External exam: NORMAL EXTERNAL EXAM - Extremities Exam Extremities exam: Positive for: normal inspection Additional comments: left leg weakness - Back Exam Back exam: NORMAL INSPECTION - Neurological Exam Neurological exam: Alert, CN II-XII Intact, Normal Gait - Psychiatric Exam Psychiatric exam: Normal Affect, Normal Mood - Skin Skin Exam: Dry, Normal Color Results - Vital Signs Recent Vital Signs: Last Vital Signs Temp 98.2 F 07/24/17 19:34 Pulse 60 07/24/17 19:34 Resp 20 07/24/17 19:34 BP 113/51 L 07/24/17 19:34 Pulse Ox 95 07/24/17 19:34 - Labs Result Diagrams: 07/22/17 10:30 07/22/17 10:30 Assessment & Plan (1) Nocturnal hypoxemia Status: Chronic Priority: High (2) AICD discharge Status: Acute Priority: High (3) GINNY (acute kidney injury) Status: Acute (4) Acute exacerbation of congestive heart failure Status: Acute (5) Bronchospasm with bronchitis, acute Status: Acute Priority: High (6) Chest pain Status: Acute (7) Chest pain Status: Acute (8) DVT prophylaxis Status: Acute Priority: Low (9) Shortness of breath Status: Resolved Priority: High (10) Gait abnormality Assessment and Plan: plan for physical, occupational therapy left leg weakness for range of motion, strengthening tranfers and gait training Status: Acute
--- NOTE | 2017-07-24 20:12 | CP.PCM.PN ---
Subjective - Date & Time of Evaluation Date of Evaluation: 07/24/17 Time of Evaluation: 16:00 - Subjective Subjective: no acute complaints , old left leg weakness Objective - Vital Signs/Intake and Output Vital Signs (last 24 hours): Temp Pulse Resp BP Pulse Ox 98.2 F 60 20 113/51 L 95 07/24/17 19:34 07/24/17 19:34 07/24/17 19:34 07/24/17 19:34 07/24/17 19:34 - Medications Medications: Current Medications Amiodarone HCl (Cordarone) 200 mg PO DAILY [facility] Last Admin: 07/24/17 08:52 Dose: 200 mg Anastrozole (Arimidex 1 Mg Tab) 1 mg PO DAILY [facility] Last Admin: 07/24/17 08:54 Dose: 1 mg Ascorbic Acid (Vitamin C 500 Mg Tab) 500 mg PO DAILY [facility] Last Admin: 07/24/17 08:52 Dose: 500 mg Aspirin (Ecotrin) 81 mg PO DAILY [facility] Last Admin: 07/24/17 08:53 Dose: 81 mg Atorvastatin Calcium (Lipitor) 20 mg PO HS [facility] Last Admin: 07/23/17 21:09 Dose: 20 mg Calcium/Vitamin D (Oyster Shell Calcium/Vitamin D 500 Mg-200 Iu) 1 tab PO DAILY [facility] Last Admin: 07/24/17 08:56 Dose: 1 tab Cholecalciferol (Vitamin D) 1,000 intlu PO DAILY [facility] Last Admin: 07/24/17 08:51 Dose: 1,000 intlu Docusate Sodium (Colace) 200 mg PO DAILY [facility] Last Admin: 07/24/17 08:51 Dose: 200 mg Enoxaparin Sodium (Lovenox) 30 mg SC DAILY [facility] PRN Reason: Protocol Last Admin: 07/24/17 08:50 Dose: 30 mg Furosemide (Lasix) 40 mg PO DAILY [facility] Last Admin: 07/24/17 08:55 Dose: 40 mg Lactulose (Enulose) 20 gm PO DAILY PR[facility] PRN Reason: Constipation Levothyroxine Sodium (Synthroid) 25 mcg PO DAILY@0630 [facility] Last Admin: 07/24/17 05:45 Dose: 25 mcg Lidocaine (Lidoderm) 1 ea TD DAILY [facility] Last Admin: 07/24/17 08:50 Dose: 1 ea Losartan Potassium (Cozaar) 25 mg PO DAILY [facility] Last Admin: 07/24/17 08:52 Dose: 25 mg Memantine (Namenda) 10 mg PO DAILY [facility] Last Admin: 07/24/17 08:51 Dose: 10 mg Metoprolol Succinate (Toprol Xl) 50 mg PO DAILY [facility] Last Admin: 07/24/17 08:57 Dose: 50 mg Multivitamins/Minerals (Therapeutic-M Tab) 1 tab PO DAILY [facility] Last Admin: 07/24/17 08:52 Dose: 1 tab Potassium Chloride (K-Dur 20 Meq Er Tab) 20 meq PO DAILY [facility] Last Admin: 07/24/17 09:00 Dose: 20 meq Sildenafil Citrate (Revatio) 20 mg PO TID [facility] Last Admin: 07/24/17 16:48 Dose: 20 mg Tramadol HCl (Ultram) 50 mg PO Q6 PRN PRN Reason: Pain, severe (8-10) Vitamin E (Vitamin E 400 Units Cap) 400 intlu PO DAILY [facility] Last Admin: 07/24/17 08:51 Dose: 400 intlu - Labs Labs: 07/22/17 10:30 07/22/17 10:30 - Head Exam Head Exam: ATRAUMATIC, NORMAL INSPECTION, NORMOCEPHALIC - Eye Exam Eye Exam: EOMI, Normal appearance, PERRL Pupil Exam: NORMAL ACCOMODATION, PERRL - ENT Exam ENT Exam: Mucous Membranes Moist, Normal Exam - Neck Exam Neck Exam: Full ROM - Respiratory Exam Respiratory Exam: Clear to Ausculation Bilateral, NORMAL BREATHING PATTERN - Cardiovascular Exam Cardiovascular Exam: REGULAR RHYTHM - GI/Abdominal Exam GI & Abdominal Exam: Normal Bowel Sounds - Rectal Exam Rectal Exam: NORMAL INSPECTION - Exam External exam: NORMAL EXTERNAL EXAM - Extremities Exam Extremities Exam: Full ROM, Normal Capillary Refill, Normal Inspection - Back Exam Back Exam: CVA tenderness (R) - Neurological Exam Neurological Exam: Alert, Awake Neuro motor strength exam: Left Upper Extremity: 4, Right Upper Extremity: 4, Left Lower Extremity: 3, Right Lower Extremity: 4 Additional comments: knee buckling at times - Psychiatric Exam Psychiatric exam: Normal Affect, Normal Mood - Skin Skin Exam: Dry, Normal Color Assessment and Plan (1) Nocturnal hypoxemia Status: Chronic (2) AICD discharge Status: Acute (3) GINNY (acute kidney injury) Status: Acute (4) Acute exacerbation of congestive heart failure Status: Acute (5) Bronchospasm with bronchitis, acute Status: Acute (6) Chest pain Status: Acute (7) Chest pain Status: Acute (8) DVT prophylaxis Status: Acute (9) Shortness of breath Status: Resolved (10) Gait abnormality Assessment & Plan: plan for physical, occupational therapy left brace for left lef Ankle foot orthosis (patient cliams left leg weakness since over one year ago, ??old Cva. written for Brace Status: Acute
[2017-07-25] MEDS: Levothyroxine 25 MCG TAB PO SCH (05:35)
[2017-07-25] MEDS: Lidocaine 5% Patch TD SCH (09:43)
[2017-07-25] MEDS: Multivitamin With Minerals Tab PO SCH (09:44)
[2017-07-25] MEDS: Potassium Chloride 20 mEq ER Tab PO SCH (09:44)
[2017-07-25] MEDS: Sildenafil 20 MG TAB PO SCH ×3 (09:45→17:31)
[2017-07-25] MEDS: Cholecalciferol 1,000 INTLU TAB PO SCH (09:46)
[2017-07-25] MEDS: Enoxaparin 30 mg Syringe SC SCH (09:46)
[2017-07-25] MEDS: Metoprolol Succinate 50 mg XL Tab PO SCH (09:46)
[2017-07-25] MEDS: Calcium-Vit D 500 mg-200 Units Tab UD PO SCH (09:46)
[2017-07-26] MEDS: Levothyroxine 25 MCG TAB PO SCH (06:40)
[2017-07-26] MEDS: Metoprolol Succinate 50 mg XL Tab PO SCH (08:11)
[2017-07-26] MEDS: Sildenafil 20 MG TAB PO SCH ×3 (08:11→17:00)
[2017-07-26] MEDS: Enoxaparin 30 mg Syringe SC SCH (08:11)
[2017-07-26] MEDS: Multivitamin With Minerals Tab PO SCH (08:11)
[2017-07-26] MEDS: Potassium Chloride 20 mEq ER Tab PO SCH (08:12)
[2017-07-26] MEDS: Cholecalciferol 1,000 INTLU TAB PO SCH (08:13)
[2017-07-26] MEDS: Lidocaine 5% Patch TD SCH (08:14)
[2017-07-26] MEDS: Calcium-Vit D 500 mg-200 Units Tab UD PO SCH (08:17)
--- NOTE | 2017-07-26 09:33 | CP.PCM.PN ---
Subjective - Date & Time of Evaluation Date of Evaluation: 07/26/17 Time of Evaluation: 09:33 - Subjective Subjective: Appears comfortable. Receiving PT/OT with improved feeling of ability to complete ADL's. Vital signs remain stable. Tolerating all medications w/o incident. No dependant edema, no cyanosis. Neck is supple and trachea midline. Pharynx is pink and moist. Lungs are clear on auscultation, BS are diminished. Heart sounds sl distant, rhyhm mostly regular. Abdomen is soft and normal BS. Continue present regimen. Objective - Vital Signs/Intake and Output Vital Signs (last 24 hours): Temp Pulse Resp BP Pulse Ox 97.3 F L 60 20 138/70 99 07/26/17 08:02 07/26/17 08:14 07/26/17 08:02 07/26/17 08:14 07/26/17 08:02 - Medications Medications: Current Medications Amiodarone HCl (Cordarone) 200 mg PO DAILY [facility] Last Admin: 07/26/17 08:14 Dose: 200 mg Anastrozole (Arimidex 1 Mg Tab) 1 mg PO DAILY [facility] Last Admin: 07/26/17 08:16 Dose: 1 mg Ascorbic Acid (Vitamin C 500 Mg Tab) 500 mg PO DAILY [facility] Last Admin: 07/26/17 08:12 Dose: 500 mg Aspirin (Ecotrin) 81 mg PO DAILY [facility] Last Admin: 07/26/17 08:15 Dose: 81 mg Atorvastatin Calcium (Lipitor) 20 mg PO HS [facility] Last Admin: 07/25/17 21:11 Dose: 20 mg Calcium/Vitamin D (Oyster Shell Calcium/Vitamin D 500 Mg-200 Iu) 1 tab PO DAILY [facility] Last Admin: 07/26/17 08:17 Dose: 1 tab Cholecalciferol (Vitamin D) 1,000 intlu PO DAILY [facility] Last Admin: 07/26/17 08:13 Dose: 1,000 intlu Docusate Sodium (Colace) 200 mg PO DAILY [facility] Last Admin: 07/26/17 08:14 Dose: 200 mg Enoxaparin Sodium (Lovenox) 30 mg SC DAILY [facility] PRN Reason: Protocol Last Admin: 07/26/17 08:11 Dose: 30 mg Furosemide (Lasix) 40 mg PO DAILY [facility] Last Admin: 07/26/17 08:13 Dose: 40 mg Lactulose (Enulose) 20 gm PO DAILY [facility] PRN Reason: Constipation Levothyroxine Sodium (Synthroid) 25 mcg PO DAILY@0630 [facility] Last Admin: 07/26/17 06:40 Dose: 25 mcg Lidocaine (Lidoderm) 1 ea TD DAILY [facility] Last Admin: 07/26/17 08:14 Dose: 1 ea Losartan Potassium (Cozaar) 25 mg PO DAILY [facility] Last Admin: 07/26/17 08:13 Dose: 25 mg Memantine (Namenda) 10 mg PO DAILY [facility] Last Admin: 07/26/17 08:13 Dose: 10 mg Metoprolol Succinate (Toprol Xl) 50 mg PO DAILY [facility] Last Admin: 07/26/17 08:11 Dose: 50 mg Multivitamins/Minerals (Therapeutic-M Tab) 1 tab PO DAILY [facility] Last Admin: 07/26/17 08:11 Dose: 1 tab Potassium Chloride (K-Dur 20 Meq Er Tab) 20 meq PO DAILY [facility] Last Admin: 07/26/17 08:12 Dose: 20 meq Sildenafil Citrate (Revatio) 20 mg PO TID [facility] Last Admin: 07/26/17 08:11 Dose: 20 mg Tramadol HCl (Ultram) 50 mg PO Q6 PRN PRN Reason: Pain, severe (8-10) Vitamin E (Vitamin E 400 Units Cap) 400 intlu PO DAILY [facility] Last Admin: 07/26/17 08:11 Dose: 400 intlu - Labs Labs: 07/22/17 10:30 07/22/17 10:30 Assessment and Plan (1) Chronic congestive heart failure Status: Chronic (2) Physical deconditioning Status: Chronic (3) COPD (chronic obstructive pulmonary disease) Status: Chronic (4) Pulmonary hypertension Status: Chronic (5) Nocturnal hypoxemia Status: Chronic
[2017-07-27] MEDS: Levothyroxine 25 MCG TAB PO SCH (06:15)
[2017-07-27] MEDS: Enoxaparin 30 mg Syringe SC SCH (08:19)
[2017-07-27] MEDS: Sildenafil 20 MG TAB PO SCH ×3 (08:19→16:28)
[2017-07-27] MEDS: Metoprolol Succinate 50 mg XL Tab PO SCH (08:21)
[2017-07-27] MEDS: Potassium Chloride 20 mEq ER Tab PO SCH (08:21)
[2017-07-27] MEDS: Calcium-Vit D 500 mg-200 Units Tab UD PO SCH (08:21)
[2017-07-27] MEDS: Multivitamin With Minerals Tab PO SCH (08:21)
[2017-07-27] MEDS: Cholecalciferol 1,000 INTLU TAB PO SCH (08:21)
[2017-07-27] MEDS: Lidocaine 5% Patch TD SCH (08:28)
--- NOTE | 2017-07-27 15:47 | CP.PCM.PN ---
Subjective - Date & Time of Evaluation Date of Evaluation: 07/27/17 Time of Evaluation: 12:00 - Subjective Subjective: patinet sitting in chair no acute complaints Objective - Vital Signs/Intake and Output Vital Signs (last 24 hours): Temp Pulse Resp BP Pulse Ox 97.9 F 60 20 141/62 96 07/27/17 08:50 07/27/17 08:50 07/27/17 08:50 07/27/17 08:50 07/27/17 08:50 - Medications Medications: Current Medications Amiodarone HCl (Cordarone) 200 mg PO DAILY [facility] Last Admin: 07/27/17 08:23 Dose: 200 mg Anastrozole (Arimidex 1 Mg Tab) 1 mg PO DAILY [facility] Last Admin: 07/27/17 08:20 Dose: 1 mg Ascorbic Acid (Vitamin C 500 Mg Tab) 500 mg PO DAILY [facility] Last Admin: 07/27/17 08:22 Dose: 500 mg Aspirin (Ecotrin) 81 mg PO DAILY [facility] Last Admin: 07/27/17 08:22 Dose: 81 mg Atorvastatin Calcium (Lipitor) 20 mg PO HS [facility] Last Admin: 07/26/17 21:14 Dose: 20 mg Calcium/Vitamin D (Oyster Shell Calcium/Vitamin D 500 Mg-200 Iu) 1 tab PO DAILY [facility] Last Admin: 07/27/17 08:21 Dose: 1 tab Cholecalciferol (Vitamin D) 1,000 intlu PO DAILY [facility] Last Admin: 07/27/17 08:21 Dose: 1,000 intlu Docusate Sodium (Colace) 200 mg PO DAILY [facility] Last Admin: 07/27/17 08:22 Dose: 200 mg Enoxaparin Sodium (Lovenox) 30 mg SC DAILY [facility] PRN Reason: Protocol Last Admin: 07/27/17 08:19 Dose: 30 mg Furosemide (Lasix) 40 mg PO DAILY [facility] Last Admin: 07/27/17 08:20 Dose: 40 mg Lactulose (Enulose) 20 gm PO DAILY PRN PRN Reason: Constipation Last Admin: 07/27/17 08:26 Dose: 20 gm Levothyroxine Sodium (Synthroid) 25 mcg PO DAILY@0630 [facility] Last Admin: 07/27/17 06:15 Dose: 25 mcg Lidocaine (Lidoderm) 1 ea TD DAILY [facility] Last Admin: 07/27/17 08:28 Dose: Not Given Losartan Potassium (Cozaar) 25 mg PO DAILY [facility] Last Admin: 07/27/17 08:22 Dose: 25 mg Memantine (Namenda) 10 mg PO DAILY [facility] Last Admin: 07/27/17 08:22 Dose: 10 mg Metoprolol Succinate (Toprol Xl) 50 mg PO DAILY [facility] Last Admin: 07/27/17 08:21 Dose: 50 mg Multivitamins/Minerals (Therapeutic-M Tab) 1 tab PO DAILY [facility] Last Admin: 07/27/17 08:21 Dose: 1 tab Potassium Chloride (K-Dur 20 Meq Er Tab) 20 meq PO DAILY [facility] Last Admin: 07/27/17 08:21 Dose: 20 meq Sildenafil Citrate (Revatio) 20 mg PO TID [facility] Last Admin: 07/27/17 13:29 Dose: 20 mg Tramadol HCl (Ultram) 50 mg PO Q6 PRN PRN Reason: Pain, severe (8-10) Vitamin E (Vitamin E 400 Units Cap) 400 intlu PO DAILY [facility] Last Admin: 07/27/17 08:21 Dose: 400 intlu - Labs Labs: 07/22/17 10:30 07/22/17 10:30 - Head Exam Head Exam: ATRAUMATIC, NORMAL INSPECTION, NORMOCEPHALIC - Eye Exam Eye Exam: EOMI, Normal appearance Pupil Exam: NORMAL ACCOMODATION, PERRL - ENT Exam ENT Exam: Mucous Membranes Moist, Normal Exam - Neck Exam Neck Exam: Normal Inspection - Respiratory Exam Respiratory Exam: Clear to Ausculation Bilateral, NORMAL BREATHING PATTERN - Cardiovascular Exam Cardiovascular Exam: REGULAR RHYTHM - GI/Abdominal Exam GI & Abdominal Exam: Soft, Normal Bowel Sounds - Rectal Exam Rectal Exam: NORMAL INSPECTION - Exam External exam: NORMAL EXTERNAL EXAM - Extremities Exam Extremities Exam: Full ROM, Normal Capillary Refill, Normal Inspection - Back Exam Back Exam: NORMAL INSPECTION - Neurological Exam Neurological Exam: Alert, Awake Neuro motor strength exam: Left Upper Extremity: 4, Right Upper Extremity: 4, Left Lower Extremity: 3, Right Lower Extremity: 4 - Psychiatric Exam Psychiatric exam: Normal Affect, Normal Mood - Skin Skin Exam: Dry, Normal Color Assessment and Plan (1) Nocturnal hypoxemia Status: Chronic (2) AICD discharge Status: Acute (3) GINNY (acute kidney injury) Status: Acute (4) Acute exacerbation of congestive heart failure Status: Acute (5) Bronchospasm with bronchitis, acute Status: Acute (6) Chest pain Status: Acute (7) Chest pain Status: Acute (8) DVT prophylaxis Status: Acute (9) Gait abnormality Assessment & Plan: left leg weakness brace written for bel, discussed with therapist, physical, occupational therapy DC planning for tomorrow Status: Acute
[2017-07-27 20:03] VITALS: O2SAT 99
[2017-07-28] MEDS: Levothyroxine 25 MCG TAB PO SCH (06:24)
[2017-07-28 07:58] VITALS: BP 142/63; PULSE 69; TEMP 97.5
[2017-07-28] MEDS: Multivitamin With Minerals Tab PO SCH (08:34)
[2017-07-28] MEDS: Calcium-Vit D 500 mg-200 Units Tab UD PO SCH (08:35)
[2017-07-28] MEDS: Potassium Chloride 20 mEq ER Tab PO SCH (08:35)
[2017-07-28] MEDS: Metoprolol Succinate 50 mg XL Tab PO SCH (08:36)
[2017-07-28] MEDS: Cholecalciferol 1,000 INTLU TAB PO SCH (08:37)
[2017-07-28] MEDS: Sildenafil 20 MG TAB PO SCH ×2 (08:37→13:20)
[2017-07-28] MEDS: Lidocaine 5% Patch TD SCH (10:20)
--- NOTE | 2017-07-28 11:21 | CP.PCM.PN ---
Subjective - Date & Time of Evaluation Date of Evaluation: 07/28/17 Time of Evaluation: 11:21 Objective - Vital Signs/Intake and Output Vital Signs (last 24 hours): Temp Pulse Resp BP Pulse Ox 97.5 F L 69 20 142/63 99 07/28/17 07:57 07/28/17 08:36 07/28/17 07:57 07/28/17 08:36 07/28/17 07:57 - Medications Medications: Current Medications Amiodarone HCl (Cordarone) 200 mg PO DAILY [facility] Last Admin: 07/28/17 08:35 Dose: 200 mg Anastrozole (Arimidex 1 Mg Tab) 1 mg PO DAILY [facility] Last Admin: 07/28/17 08:38 Dose: 1 mg Ascorbic Acid (Vitamin C 500 Mg Tab) 500 mg PO DAILY [facility] Last Admin: 07/28/17 08:36 Dose: 500 mg Aspirin (Ecotrin) 81 mg PO DAILY [facility] Last Admin: 07/28/17 08:35 Dose: 81 mg Atorvastatin Calcium (Lipitor) 20 mg PO HS [facility] Last Admin: 07/27/17 21:34 Dose: 20 mg Calcium/Vitamin D (Oyster Shell Calcium/Vitamin D 500 Mg-200 Iu) 1 tab PO DAILY [facility] Last Admin: 07/28/17 08:35 Dose: 1 tab Cholecalciferol (Vitamin D) 1,000 intlu PO DAILY [facility] Last Admin: 07/28/17 08:37 Dose: 1,000 intlu Docusate Sodium (Colace) 200 mg PO DAILY [facility] Last Admin: 07/28/17 08:37 Dose: 200 mg Furosemide (Lasix) 40 mg PO DAILY [facility] Last Admin: 07/28/17 08:35 Dose: 40 mg Lactulose (Enulose) 20 gm PO DAILY PRN PRN Reason: Constipation Last Admin: 07/27/17 08:26 Dose: 20 gm Levothyroxine Sodium (Synthroid) 25 mcg PO DAILY@0630 [facility] Last Admin: 07/28/17 06:24 Dose: 25 mcg Lidocaine (Lidoderm) 1 ea TD DAILY [facility] Last Admin: 07/27/17 08:28 Dose: Not Given Losartan Potassium (Cozaar) 25 mg PO DAILY [facility] Last Admin: 07/28/17 08:35 Dose: 25 mg Memantine (Namenda) 10 mg PO DAILY [facility] Last Admin: 07/28/17 08:37 Dose: 10 mg Metoprolol Succinate (Toprol Xl) 50 mg PO DAILY [facility] Last Admin: 07/28/17 08:36 Dose: 50 mg Multivitamins/Minerals (Therapeutic-M Tab) 1 tab PO DAILY [facility] Last Admin: 07/28/17 08:34 Dose: 1 tab Potassium Chloride (K-Dur 20 Meq Er Tab) 20 meq PO DAILY [facility] Last Admin: 07/28/17 08:35 Dose: 20 meq Sildenafil Citrate (Revatio) 20 mg PO TID [facility] Last Admin: 07/28/17 08:37 Dose: 20 mg Tramadol HCl (Ultram) 50 mg PO Q6 PRN PRN Reason: Pain, severe (8-10) Vitamin E (Vitamin E 400 Units Cap) 400 intlu PO DAILY [facility] Last Admin: 07/28/17 08:36 Dose: 400 intlu - Labs Labs: 07/22/17 10:30 07/22/17 10:30 Assessment and Plan (1) Chronic congestive heart failure Status: Chronic (2) Physical deconditioning Status: Chronic (3) COPD (chronic obstructive pulmonary disease) Status: Chronic (4) Pulmonary hypertension Status: Chronic (5) Nocturnal hypoxemia Status: Chronic
--- NOTE | 2017-07-28 12:00 | CP.PCM.DIS ---
Provider - Provider Date of Admission: 07/21/17 13:32 Attending physician: Mohan Hernandez MD Consults: Dr Avinash Kilgore Time Spent in preparation of Discharge (in minutes): 25 Diagnosis - Discharge Diagnosis (1) Acute exacerbation of congestive heart failure Status: Acute Comment: felt better and breathing easier. continue Lasix, Losartan and Metoprolol (2) COPD (chronic obstructive pulmonary disease) Status: Chronic Priority: Medium Comment: Duoneb q 4hrs prn for wheezing or SOB (3) Hypothyroidism Status: Chronic Priority: Medium Comment: continue Levothyroxine (4) HTN (hypertension) Status: Chronic Priority: Medium Comment: BP stable. continue Losartan, Metoprolol and Lasix (5) Physical deconditioning Status: Chronic Priority: Medium Comment: did well with therapy Hospital Course - Lab Results Lab Results: Most Recent Lab Values WBC 10.1 K/uL (4.8-10.8) 07/22/17 10:30 RBC 3.69 Mil/uL (3.80-5.20) L 07/22/17 10:30 Hgb 12.3 g/dL (12.0-16.0) D 07/22/17 10:30 Hct 36.3 % (34.0-47.0) 07/22/17 10:30 MCV 98.6 fl (81.0-99.0) 07/22/17 10:30 MCH 33.4 pg (27.0-31.0) H 07/22/17 10:30 MCHC 33.9 g/dL (33.0-37.0) 07/22/17 10:30 RDW 14.2 % (11.5-14.5) 07/22/17 10:30 Plt Count 322 K/uL (130-400) 07/22/17 10:30 Sodium 139 mmol/l (132-148) 07/22/17 10:30 Potassium 3.1 MMOL/L (3.6-5.0) L 07/22/17 10:30 Chloride 99 mmol/L (98-107) 07/22/17 10:30 Carbon Dioxide 26 mmol/L (22-30) 07/22/17 10:30 Anion Gap 17 (10-20) 07/22/17 10:30 BUN 24 mg/dl (7-17) H 07/22/17 10:30 Creatinine 1.2 mg/dl (0.7-1.2) 07/22/17 10:30 Est GFR ( Amer) 52 07/22/17 10:30 Est GFR (Non-Af Amer) 43 07/22/17 10:30 Random Glucose 168 mg/dL (65-105) H 07/22/17 10:30 Calcium 9.0 mg/dL (8.4-10.2) 07/22/17 10:30 NT-Pro-B Natriuret Pep 1580 pg/ml (0-900) H 07/27/17 12:27 - Hospital Course Hospital Course: 81 yo female with history of Cardiomyopathy with AICD, COPD, Pulmonary HTN, Left Breast Cancer and CAD brought in because of SOB not relieved with PO Lasix. She was diagnosed with CHF exacerbation and admitted in telemetry. Patient was started on IV Lasix and Milrinone drip and improved. She was transferred to TCU for therapy because of deconditioning and continuation of management. She did well and now is ready for discharge. Discharge Exam - Head Exam Head Exam: ATRAUMATIC, NORMAL INSPECTION, NORMOCEPHALIC - Eye Exam Eye Exam: absent: Scleral icterus - ENT Exam ENT Exam: Mucous Membranes Moist - Respiratory Exam Respiratory Exam: absent: Rales, Rhonchi, Wheezes, Respiratory Distress - Cardiovascular Exam Cardiovascular Exam: REGULAR RHYTHM, +S1, +S2 - GI/Abdominal Exam GI & Abdominal Exam: Soft. absent: Tenderness - Rectal Exam Rectal Exam: Deferred - Neurological Exam Neurological exam: Alert, Oriented x3 - Psychiatric Exam Psychiatric exam: Normal Affect - Skin Skin Exam: Dry, Intact Discharge Plan - Discharge Medications Prescriptions: Potassium Chloride [K-Dur 20 mEq ER Tab] 20 meq PO DAILY #14 tab - Follow Up Plan Condition: GOOD Disposition: HOME/ ROUTINE
--- NOTE | 2017-07-28 19:07 | CP.PCM.PN ---
Subjective - Date & Time of Evaluation Date of Evaluation: 07/28/17 Time of Evaluation: 10:00 - Subjective Subjective: no acute complaints at present, ready for Dc today Objective - Vital Signs/Intake and Output Vital Signs (last 24 hours): Temp Pulse Resp BP Pulse Ox 97.5 F L 69 20 142/63 99 07/28/17 07:57 07/28/17 08:36 07/28/17 07:57 07/28/17 08:36 07/28/17 07:57 - Labs Labs: 07/22/17 10:30 07/22/17 10:30 - Head Exam Head Exam: ATRAUMATIC, NORMAL INSPECTION, NORMOCEPHALIC - Eye Exam Eye Exam: EOMI, Normal appearance Pupil Exam: NORMAL ACCOMODATION, PERRL - ENT Exam ENT Exam: Mucous Membranes Moist, Normal Exam - Neck Exam Neck Exam: Normal Inspection - Respiratory Exam Respiratory Exam: Clear to Ausculation Bilateral, NORMAL BREATHING PATTERN - Cardiovascular Exam Cardiovascular Exam: REGULAR RHYTHM - GI/Abdominal Exam GI & Abdominal Exam: Soft, Normal Bowel Sounds - Rectal Exam Rectal Exam: NORMAL INSPECTION - Exam External exam: NORMAL EXTERNAL EXAM - Extremities Exam Extremities Exam: Full ROM, Normal Capillary Refill, Normal Inspection - Back Exam Back Exam: NORMAL INSPECTION - Neurological Exam Neurological Exam: Alert, Awake Neuro motor strength exam: Left Upper Extremity: 3, Right Upper Extremity: 3, Left Lower Extremity: 2/1, Right Lower Extremity: 3 - Psychiatric Exam Psychiatric exam: Normal Affect, Normal Mood - Skin Skin Exam: Normal Color Assessment and Plan (1) Nocturnal hypoxemia Status: Chronic (2) AICD discharge Status: Acute (3) GNINY (acute kidney injury) Status: Acute (4) Acute exacerbation of congestive heart failure Status: Acute (5) Bronchospasm with bronchitis, acute Status: Acute (6) Chest pain Status: Acute (7) Chest pain Status: Acute (8) DVT prophylaxis Status: Acute (9) Gait abnormality Assessment & Plan: status post therapy, Pt Ot for Dc today discussed Dc planning equipment needs and ankle foot orthosis for left foot Status: Acute
== END 2017-07-28 13:15 | disposition home health service (06) | DRG 292 ==
LOC: H.TCU 13:32
DX: I50.43 Acute on chronic combined systolic (congestive) and diastolic (congestive) heart failure (principal); I13.0 Hypertensive heart and chronic kidney disease with heart failure and stage 1 through stage 4 chronic kidney disease, or unspecified chronic kidney disease; I42.9 Cardiomyopathy, unspecified; I47.2 Ventricular tachycardia; J44.0 Chronic obstructive pulmonary disease with (acute) lower respiratory infection; N17.9 Acute kidney failure, unspecified; Z85.3 Personal history of malignant neoplasm of breast; E03.9 Hypothyroidism, unspecified; E78.00 Pure hypercholesterolemia, unspecified; H70.11 Chronic mastoiditis, right ear; I25.10 Atherosclerotic heart disease of native coronary artery without angina pectoris; I25.2 Old myocardial infarction; I27.21 Secondary pulmonary arterial hypertension; J20.9 Acute bronchitis, unspecified; M81.0 Age-related osteoporosis without current pathological fracture; N18.3 Chronic kidney disease, stage 3 (moderate); R09.02 Hypoxemia; Z79.811 Long term (current) use of aromatase inhibitors; Z82.49 Family history of ischemic heart disease and other diseases of the circulatory system; Z86.73 Personal history of transient ischemic attack (TIA), and cerebral infarction without residual deficits; Z87.01 Personal history of pneumonia (recurrent); Z87.440 Personal history of urinary (tract) infections; Z87.891 Personal history of nicotine dependence; Z90.49 Acquired absence of other specified parts of digestive tract; Z95.810 Presence of automatic (implantable) cardiac defibrillator; Z95.5 Presence of coronary angioplasty implant and graft; H26.9 Unspecified cataract; M19.90 Unspecified osteoarthritis, unspecified site; M48.00 Spinal stenosis, site unspecified; R26.9 Unspecified abnormalities of gait and mobility; Z90.12 Acquired absence of left breast and nipple

== ENCOUNTER 2017-08-11 11:16 | Observation (INO) | payer MEDICARE ==
[2017-08-11 11:16] VITALS: BMI 28.1
[2017-08-11] MEDS ORDERED: Sodium Chloride 0.9% 1,000 ML IV STA (12:01)
[2017-08-11 12:32] LABS: BASO # 0.1 K/uL (0.0-0.2); BASO % 0.9 % (0.0-2.0); EOS # 0.1 K/uL (0.0-0.7); EOS % 0.7 % (0.0-4.0); HEMOGLOBIN 12.7 g/dL (12.0-16.0); LYMPH # 1.2 K/uL (1.0-4.3); LYMPH % 9.7 % (20.0-40.0); MEAN CELL VOLUME 99.1 fl (81.0-99.0); MEAN CORPUSCULAR HEMOGLOBIN 32.6 pg (27.0-31.0); MEAN CORPUSCULAR HGB CONC 32.9 g/dL (33.0-37.0); MEAN PLATELET VOLUME 8.9 fl (7.2-11.7); MONO # 0.9 K/uL (0.0-0.8); MONO % 7.6 % (0.0-10.0); NEUT # 9.8 K/uL (1.8-7.0); NEUT % 81.1 % (50.0-75.0); NRBC % 0.1 % (0.0-0.0); PLATELET COUNT 199 K/uL (130-400); RBC 3.89 Mil/uL (3.80-5.20); RED CELL DISTRIBUTION WIDTH 14.5 % (11.5-14.5); WHITE BLOOD COUNT 12.1 K/uL (4.8-10.8)
--- NOTE | 2017-08-11 12:33 | ED PDOC ---
Syncope/Near Syncope/Dizziness Time Seen by Provider: 08/11/17 11:22 Chief Complaint (Nursing): Syncope Chief Complaint (Provider): Syncope History Per: Patient History/Exam Limitations: no limitations Onset/Duration Of Symptoms: Mins Activity At Onset Of Symptoms: Sitting Additional History Per: EMS, Family Additional Complaint(s): 81 female with a history of COPD, heart disease, and high cholesterol was brought in by EMS for syncope. Patient states she woke up around 5:00 AM with chest pain strong enough that it woke her up stating it lasted 1 hour. Later in the morning she was having physical therapy in her home when she went to use the toilet. While having a bowel movement patient passed out for 7 minutes according to physical therapist associated with slight shaking but denies severe tremors. Prior to passing out patient remembers feeling cold and sweaty. Patient admits to passing out in the past. She denies feeling confused after the episode, any headache, blurred vision, falling, biting her lip or tongue. Of note, patient had breakfast as usual with her daily medications including Aspirin. Patient states she fell a week ago in her room hitting her head and left side of her body. Her PMD, Dr. Holden made a house visit saying she suffered severe bruising. PMD: Dr. Holden [place] Liaison: Dr. Gomez [place] Consultant: Dr. 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), HTN, Hypercholesterolemia, Hyperlipidemia, Hypothyroidism, Osteoporosis, Peripheral Edema, Pneumonia, TIA Denies: HIV, Chronic Kidney Disease, Rheumatoid Arthritis - Surgical History Surgical History: Appendectomy, Cholecystectomy, Coronary Stent, Pacemaker (AICD ), Tonsillectomy Other surgeries: 17 catheterizations, defibrillator, masectomy to the left breast, cyst removal - Family History Family History: States: Unknown Family Hx - Living Arrangements Living Arrangements: With Family - Social History Current smoker - smoking cessation education provided: No Ex-Smoker (has not smoked in the last 12 months): No Alcohol: None Drugs: Denies - Immunization History Hx Tetanus Toxoid Vaccination: No Hx Influenza Vaccination: No Hx Pneumococcal Vaccination: No - Home Medications Home Medications: Ambulatory Orders Medication Instructions Recorded Ascorbic Acid [Vitamin C] 500 mg PO DAILY 04/29/16 Multivit-Min/FA/Lycopen/Lutein 1 tab PO DAILY 04/29/16 [Centrum Silver Tablet] Anastrozole [Arimidex] 1 mg PO DAILY #30 tablet 12/09/16 Aspirin [Ecotrin] 81 mg PO DAILY #30 tabec 12/09/16 Calcium Carbonate/Vitamin D3 1 tab PO DAILY #30 tablet 12/09/16 [Caltrate 600 Plus D3 Tablet] Losartan [Cozaar] 25 mg PO DAILY #30 tab 12/09/16 Levothyroxine [Synthroid] 25 mcg PO DAILY@0630 tab 12/19/16 Atorvastatin [Lipitor] 20 mg PO HS 04/15/17 Cholecalciferol [Vitamin D 1000 IU] 1,000 unit PO DAILY 04/15/17 Vitamin E [Vitamin E 400 Units Cap] 400 unit PO DAILY 04/15/17 Amiodarone [Cordarone] 200 mg PO DAILY tab 04/30/17 Metoprolol Succinate [Toprol XL] 50 mg PO DAILY tab 04/30/17 Memantine [Namenda] 10 mg PO DAILY tab 05/08/17 Docusate [Colace] 200 mg PO DAILY cap 07/02/17 Lactulose [Enulose] 20 gm PO DAILY PRN udc 07/02/17 Sildenafil [Revatio] 20 mg PO TID tab 07/02/17 Furosemide [Lasix] 40 mg PO DAILY tab 07/03/17 Lidocaine 5% [Lidoderm] 1 ea TD DAILY patch 07/03/17 Potassium Chloride [K-Dur 20 mEq 20 meq PO DAILY #14 tab 07/28/17 ER Tab] traMADol [Ultram] 50 mg PO DAILY 08/11/17 - Allergies Allergies/Adverse Reactions: Allergies Allergy/AdvReac Type Severity Reaction Status Date / Time No Known Allergies Allergy Verified 07/17/17 00:29 Review of Systems ROS Statement: Except As Marked, All Systems Reviewed And Found Negative Constitutional: Positive for: Chills, Sweats. Negative for: Other (falling, biting her lip or tongue) Eyes: Negative for: Other (blurred vision) Cardiovascular: Positive for: Chest Pain Neurological: Positive for: Other (syncope w/ slight shaking). Negative for: Confusion, Headache Physical Exam - Reviewed Nursing Documentation Reviewed: Yes Vital Signs Reviewed: Yes - Physical Exam Appears: Positive for: Non-toxic, No Acute Distress Head Exam: Positive for: ATRAUMATIC, NORMOCEPHALIC Skin: Positive for: Normal Color, Warm, DRY Eye Exam: Positive for: EOMI, Normal appearance, PERRL Neck: Positive for: Normal, Painless ROM, Supple Cardiovascular/Chest: Positive for: Murmur (systolic), Other (S1 S2 normal, 2/6 sternal border) Respiratory: Positive for: Normal Breath Sounds (good air entry bilaterally), Rales (faint) Back: Positive for: Normal Inspection, Other (ecchymosis to the left chest wall laterally and left flank down to the hip) Extremity: Positive for: Normal ROM, Other (motor strength 5/5 upper and lower extremities) Neurologic/Psych: Positive for: Alert, Oriented (x3), Other (visual kelly normal, no diplopia) - Laboratory Results Result Diagrams: 08/11/17 12:15 08/11/17 12:15 - ECG O2 Sat by Pulse Oximetry: 99 (RA) Pulse Ox Interpretation: Normal Medical Decision Making Medical Decision Making: Time: 11:21 Impression: Syncope, possible seizure, chest pain, acute coronary syndrome Initial Plan: * CAT Scan head w/o contrast * EKG * CMP * Drug Screen * Prolactin Stat * Troponin * CBC * Chest X-Ray * IV Fluids * Glucose Check * BG * CT Head w/o contrast * Prolactin Stat * Partial Thromboplastin Time * Prothrombin Time Scribe Attestation: Documented by Sean Webb acting as a scribe for Beverly Esteban MD. Scribe Attestation: All medical record entries made by the Scribe were at my direction and personally dictated by me. I have reviewed the chart and agree that the record accurately reflects my personal performance of the history, physical exam, medical decision making, and the department course for this patient. I have also personally directed, reviewed, and agree with the discharge instructions and disposition. case d/w Dr. Gomez. syncope vs. seizure (less likely) Admit for observation. Case d/w Dr. Ralph. Disposition - Clinical Impression Clinical Impression: Syncope - Patient ED Disposition Is Patient to be Admitted: No Doctor Will See Patient In The: Hospital Counseled Patient/Family Regarding: Diagnosis, Need For Followup - Disposition Disposition: Transfer of Care Disposition Time: 14:30 Condition: FAIR Instructions: Syncope (Fainting) Forms: [employer] (Turkmen) - Pt Status Changed To: Hospital Disposition Of: Observation - POA Present On Arrival: None
[2017-08-11 12:37] LABS: VENOUS BLOOD GAS PCO2 84 mmHg (40-60); VENOUS BLOOD GAS PO2 27 mm/Hg (30-55); VENOUS BLOOD PH 7.08 (7.32-7.43)
[2017-08-11 12:47] LABS: PARTIAL THROMBOPLASTIN TIME 25.7 Seconds (25.6-37.1); PROTHROMBIN TIME 10.6 Seconds (9.8-13.1)
[2017-08-11 12:50] LABS: ALB/GLOB RATIO 1.2 (1.0-2.1); ALBUMIN 3.9 g/dL (3.5-5.0); CALCIUM 8.9 mg/dL (8.4-10.2)
[2017-08-11 12:55] LABS: TROPONIN I 0.029 ng/mL (0.00-0.120)
--- NOTE | 2017-08-11 13:22 | RAD ---
PROCEDURE: CHEST RADIOGRAPH, 1 VIEW HISTORY: syncope COMPARISON: 07/19/2017 FINDINGS: LUNGS: Clear. PLEURA: No pneumothorax or pleural fluid seen. CARDIOVASCULAR: No radiographic findings to suggest acute or significant cardiovascular disease. Position/ configuration of pacemaker device: Satisfactory. OSSEOUS STRUCTURES: No significant abnormalities. VISUALIZED UPPER ABDOMEN: Normal. OTHER FINDINGS: None. IMPRESSION: No active disease. No acute/significant interval changes.
[2017-08-11 13:45] LABS: ABG ALLEN TEST YES; ARTERIAL BLOOD GAS HCO3 27.4 mmol/L (21-28); ARTERIAL BLOOD GAS HEMOGLOBIN 11.9 g/dL (11.7-17.4); ARTERIAL BLOOD GAS O2 CAPACITY 15.9 mL/dL (16-24); ARTERIAL BLOOD GAS O2 CONTENT 15.4 ML/dL (15-23); ARTERIAL BLOOD GAS O2 SAT 96.8 % (95-98); ARTERIAL BLOOD GAS PCO2 36 mm/Hg (35-45); ARTERIAL BLOOD GAS PH 7.48 (7.35-7.45); ARTERIAL BLOOD GAS PO2 65 mm/Hg (80-100); ARTERIAL BLOOD GAS TCO2 27.9 mmol/L (22-28)
[2017-08-11 13:50] LABS: BARBITURATES, UR NEGATIVE (NEGATIVE); BENZODIAZEPINES, UR NEGATIVE (NEGATIVE); OPIATES, UR NEGATIVE (NEGATIVE); PHENCYCLIDINE, UR NEGATIVE (NEGATIVE)
--- NOTE | 2017-08-11 14:03 | CT ---
PROCEDURE: CT HEAD WITHOUT CONTRAST. HISTORY: syncope COMPARISON: Unenhanced head CT 11/16/2016. TECHNIQUE: Axial computed tomography images were obtained through the head/brain without intravenous contrast. Radiation dose: Total exam DLP = 867.94 mGy-cm. This CT exam was performed using one or more of the following dose reduction techniques: Automated exposure control, adjustment of the mA and/or kV according to patient size, and/or use of iterative reconstruction technique. FINDINGS: HEMORRHAGE: No intracranial hemorrhage. BRAIN: Diffuse cerebral atrophy chronic microangiopathy are reiterated with a 1.9 x 1.6 x 2.0 cm calcified mass likely representing a heavily calcified parafalcine meningioma abutting the right frontal lobe superomedially. It is not significantly changed in size. No local reactive changes are seen by our standard CT criteria. Prominent dilated perivascular spaces are reiterated the inferior bilateral basal ganglia with small chronic infarct in the right cerebellum again evident. No additional significant findings above or below the tentorium in the interval. VENTRICLES: Unremarkable. No hydrocephalus. CALVARIUM: Unremarkable. PARANASAL SINUSES: Acute left sphenoid sinusitis suggested. MASTOID AIR CELLS: Chronic right mastoid effusions. OTHER FINDINGS: None. IMPRESSION: 1. No definite acute intracranial findings. 2. Stable 2.0 cm right parafalcine heavily calcified meningioma. 3. Age related neuro degenerative changes are reiterated with right cerebellar chronic lacune again evident as well. Dilated perivascular spaces appear to affect the inferior bilateral basal ganglia though additional chronic lacunae are not excluded. 4. Incidental chronic right mastoid effusions. Acute left sphenoid sinusitis also suggested.
[2017-08-11 14:15] LABS: LYMPHOCYTE 12 % (20-50); MONOCYTE 8 % (0-10); NEUTROPHIL 80 % (42-75); PLATELET ESTIMATE NORMAL (NORMAL); TOTAL CELLS COUNTED 100
--- NOTE | 2017-08-11 18:13 | CP.PCM.HP ---
History of Present Illness - History of Present Illness History of Present Illness: 81 female with a history of cardiomyopathy EF 25-30% , s/p AICD, anxiety, pulmonary hypertension, COPD ( ex smoker ), HTN, Dyslipidemia, Hypothyroidism , lower back pain , sciatica, osteoporosis, RA brought to ER by EMS for syncope.History obtained from patient. Sghe states that she was having therapy at home and went to use the toilet and while having a BM she felt diaphoretic and cold and passed out according to physical therapist . She was not moved from her toilet and EMS was called . As per her Physical therapist ( based on ER notes) there was no seizure like activity and she passed out for 7 minutes. She remembers everything after EMS came and brought her to ER. She denies any chest pain , SOB, palpitations, Blurry vision , FIELD, focal weakness. She states that she had a fall 1 week ago after coming out of shower with fall to her left side and head trauma . She denies any trip or fall or dizziness at that time. EMS had offered her to come to ER for evaluation but she refused to come PMD ; Dr Holden Pulmonary: Dr. Gomez Cardiology : Dr. 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 , denies smoking ( quit 1992), denies ETOH or drug abuse., uses walker to walk Code status: Full Present on Admission - Present on Admission Any Indicators Present on Admission: No Review of Systems - Review of Systems All systems: reviewed and no additional remarkable complaints except Past Patient History - Infectious Disease Hx of Infectious Diseases: None - Tetanus Immunizations Tetanus Immunization: Unknown - Past Medical History & Family History Past Medical History?: Yes - Past Social History Smoking Status: Former Smoker Alcohol: None Drugs: Denies Home Situation {Lives}: Alone Domestic Violence: Negative - CARDIAC Hx Cardiac Disorders: Yes Hx Angina: No Hx Atrial Fibrillation: No Hx Cardia Arrhythmia: Yes Hx Circulatory Problems: No Hx Congestive Heart Failure: Yes Hx Heart Attack: Yes Hx Heart Murmur: No Hx Heart Transplant: No Hx Hypercholesterolemia: Yes Hx Hypertension: Yes Hx Hypotension: No Hx Internal Defibrillator: Yes Hx Mitral Valve Prolapse: No Hx Pacemaker: Yes (AICD) Hx Peripheral Edema: Yes Hx Peripheral Vascular Disease: No - PULMONARY Hx Respiratory Disorders: Yes Hx Asthma: No Hx Bronchitis: Yes Hx Chronic Obstructive Pulmonary Disease (COPD): Yes Hx Emphysema: No Hx Lung Cancer: No Hx Pneumonia: Yes Hx Pulmonary Edema: No Hx Pulmonary Embolism: No Hx Respiratory Aspiration: No Hx Respiratory Tract Infection: No Hx Sleep Apnea: No Hx Tuberculosis: No - NEUROLOGICAL Hx Neurological Disorder: Yes Hx Alzheimer's Disease: No HX Cerebrovascular Accident: No Hx Dementia: No Hx Dizziness: No Hx Meningitis: No Hx Migraine: No Hx Multiple Sclerosis: No Hx Paralysis: No Hx Parkinson's Disease: No Hx Seizures: No Hx Syncope: Yes Hx Transient Ischemic Attacks (TIA): Yes Hx Vertigo: No - HEENT Hx HEENT Problems: Yes Hx Blind: No Hx Cataracts: Yes Hx Deafness: No Hx Difficulty Chewing: No Hx Epistaxis: No Hx Glaucoma: No Hx Macular Degeneration: No Hx Sinusitis: No Other/Comment: chronic mastoiditis, right. - RENAL Hx Chronic Kidney Disease: No Hx Dialysis: No Hx Kidney Stones: No Hx Neurogenic Bladder: No Hx Pyelonephritis: No Hx Renal (Kidney) Cancer: No Hx Renal Failure: No - ENDOCRINE/METABOLIC Hx Endocrine Disorders: No Hx Adrenal Cancer: No Hx Diabetes Insipidus: No Hx Diabetes Mellitus Type 1: No Hx Diabetes Mellitus Type 2: No Hx Hypothyroidism: Yes Hx Systemic Lupus Erythematosus: No - HEMATOLOGICAL/ONCOLOGICAL Hx Blood Disorders: Yes Hx AIDS: No Hx Anemia: No Hx Blood Transfusions: No Hx Blood Transfusion Reaction: No Hx Bruising: No Hx Cancer: Yes Hx Chemotherapy: Yes Hx Cirrhosis: No Hx Gum Bleeding: No Hx Hemophilia: No Hx Hepatitis A: No Hx Hepatitis B: No Hx Hepatitis C: No Hx Human Immunodeficiency Virus (HIV): No Hx Leukemia: No Hx Metastesis: No Hx Shingles: No Hx Sickle Cell Disease: No Hx Unexplained Bleeding: No Hx von Willebrand's Disease: No - INTEGUMENTARY Hx Dermatological Problems: No Hx Basil Cell: No Hx Sun: No Hx Cellulitis: No Hx Eczema: No Hx Melanoma: No Hx Psoriasis: No Hx Squamous Cell: No - MUSCULOSKELETAL/RHEUMATOLOGICAL Hx Musculoskeletal Disorders: Yes Hx Arthritis: Yes Hx Back Pain: Yes Hx Degenerative Joint Disease: No Hx Falls: Yes Hx Fractures: No Hx Gout: No Hx Herniated Disk: No Hx Myasthenia Gravis: No Hx Osteoarthritis: No Hx Osteomyelitis: No Hx Osteoporosis: Yes Hx Rhabdomyolysis: No Hx Rheumatoid Arthritis: Yes Hx Spinal Stenosis: No Hx Unsteady Gait: Yes Other/Comment: sciatica - GASTROINTESTINAL Hx Gastrointestinal Disorders: No Hx Bowel Surgery: No Hx Clostridium Difficile: No Hx Colitis: No Hx Colostomy: No Hx Constipation: No Hx Crohn's Disease: No Hx Diarrhea: No Hx Diverticulitis: No Hx Esophageal Varices: No Hx Fatty Liver Disease: No Hx Gall Bladder Disease: No Hx Gastritis: No Hx Gastroesophageal Reflux: No Hx Hemorrhoids: No Hx Ileostomy: No Hx Irritable Bowel: No Hx Liver Failure: No Hx Nausea: No Hx Pancreatitis: No HX Swallowing Problems: No Hx Ulcer: No Hx Vomiting: No - GENITOURINARY/GYNECOLOGICAL Hx Genitourinary Disorders: Yes Hx Bladder Cancer: No Hx Bladder Stone: No Hx Cervical Cancer: No Hx Hematuria: No Hx Incontinence: Yes Hx Ovarian Cancer: No Hx Postmenopausal Bleeding: No Hx Reproductive Disorders: No Hx Sexually Transmitted Disorders: No Hx Uterine Cancer: No Hx Urinary Tract Infection: Yes (with sepsis) - PSYCHIATRIC Hx Psychophysiologic Disorder: No Hx Anxiety: No Hx Bipolar Disorder: No Hx Depression: No Hx Emotional Abuse: No Hx Hallucinations: No Hx Panic Symptoms: No Hx Paranoia: No Hx Post Traumatic Stress Disorder: No Hx Psychosis: No Hx Physical Abuse: No Hx Schizophrenia: No Hx Sexual Abuse: No Hx Substance Use: No - SURGICAL HISTORY Hx Surgeries: Yes Hx Abdominal Aortic Aneurysm Repair: No Hx Amputation: No Hx Angiogram: No Hx Angioplasty: No Hx Appendectomy: Yes Hx Arteriovenous Shunt: No Hx Arthroscopy: No Hx Bile Duct Stent: No Hx Breast Biopsy: Yes Hx Cataract Extraction: Yes Hx Cardiac Catheterization: No Hx Carotid Endarterectomy: No Hx Section: No Hx Cholecystectomy: Yes Hx Coronary Artery Bypass Graft: No Hx Coronary Stent: Yes Hx Dilation and Curettage: No Hx Eye Surgery: Yes Hx Femoral-Popliteal Bypass Graft: No Hx Gastric Bypass Surgery: No Hx Herniorrhaphy: No Hx Hysterectomy: No Hx Joint Replacement: No Hx Kidney Transplant: No Hx Liver Transplant: No Hx Mastectomy: Yes Hx Musculoskeletal Surgery: No Hx Open Heart Surgery: No Hx Open Reduction Internal Fixation: No Hx Orthopedic Surgery: No Hx Parathyroidectomy: No Hx Penile Implant: No Hx Pulmonary Surgery: No Hx Splenectomy: No Hx Thyroidectomy: No Hx Tonsillectomy: Yes Hx Tubal Ligation: Yes Hx Valve Replacement: No Hx Vascular Surgery: No Hx Vascular Access Device: No Other/Comment: pylinidal cyst - ANESTHESIA Hx Anesthesia: Yes Hx Anesthesia Reactions: No Hx Malignant Hyperthermia: No Has any member of the family had a problem w/ anesthesia?: No Meds Allergies/Adverse Reactions: Allergies Allergy/AdvReac Type Severity Reaction Status Date / Time No Known Allergies Allergy Verified 07/17/17 00:29 Physical Exam - Constitutional Appears: Non-toxic, No Acute Distress - Head Exam Head Exam: ATRAUMATIC, NORMAL INSPECTION, NORMOCEPHALIC - Eye Exam Eye Exam: EOMI, Normal appearance, PERRL Pupil Exam: NORMAL ACCOMODATION - ENT Exam ENT Exam: Mucous Membranes Moist, Normal Exam - Neck Exam Neck exam: Positive for: Full Rom, Normal Inspection - Respiratory Exam Respiratory Exam: Clear to Auscultation Bilateral, NORMAL BREATHING PATTERN. absent: Rales, Rhonchi, Wheezes - Cardiovascular Exam Cardiovascular Exam: REGULAR RHYTHM, RRR, +S1, +S2. absent: JVD - GI/Abdominal Exam GI & Abdominal Exam: Normal Bowel Sounds, Soft. absent: Distended, Guarding, Rebound, Tenderness - Rectal Exam Rectal Exam: Deferred - Extremities Exam Extremities exam: Positive for: normal capillary refill, normal inspection, pedal pulses present. Negative for: calf tenderness, pedal edema - Back Exam Back exam: NORMAL INSPECTION. absent: muscle spasm, paraspinal tenderness, tenderness Additional comments: left flank echymosis no vertebral tenderness - Neurological Exam Neurological exam: Alert, CN II-XII Intact, Oriented x3 - Psychiatric Exam Psychiatric exam: Normal Affect - Skin Skin Exam: Dry, Normal Color, Warm Results - Vital Signs Recent Vital Signs: Last Vital Signs Temp 97.9 F 08/11/17 15:58 Pulse 61 08/11/17 17:44 Resp 13 08/11/17 17:44 BP 136/62 08/11/17 17:09 Pulse Ox 99 08/11/17 17:44 - Labs Result Diagrams: 08/11/17 12:15 08/11/17 12:15 Labs: Laboratory Results - last 24 hr 08/11/17 08/11/17 08/11/17 12:15 12:15 12:30 WBC 12.1 H RBC 3.89 Hgb 12.7 Hct 38.6 MCV 99.1 H MCH 32.6 H MCHC 32.9 L RDW 14.5 Plt Count 199 D MPV 8.9 Neut % (Auto) 81.1 H Lymph % (Auto) 9.7 L Canadian % (Auto) 7.6 Eos % (Auto) 0.7 Baso % (Auto) 0.9 Neut # (Auto) 9.8 H Lymph # (Auto) 1.2 Canadian # (Auto) 0.9 H Eos # (Auto) 0.1 Baso # (Auto) 0.1 Neutrophils % (Manual) 80 H Lymphocytes % (Manual) 12 L Monocytes % (Manual) 8 Platelet Estimate Normal RBC Morphology Normal PT 10.6 INR 1.0 APTT 25.7 pCO2 pO2 HCO3 ABG pH ABG Total CO2 ABG O2 Saturation ABG O2 Content ABG Base Excess ABG Hemoglobin ABG Carboxyhemoglobin POC ABG HHb (Measured) ABG Methemoglobin ABG O2 Capacity Baljeet Test VBG pH VBG pCO2 VBG HCO3 VBG Total CO2 VBG O2 Sat (Calc) VBG Base Excess A-a O2 Difference Hgb O2 Saturation Glucose Lactate FiO2 Crit Value Called To Crit Value Called By Crit Value Read Back Blood Gas Notified Time Sodium 141 Potassium 3.5 L Chloride 103 Carbon Dioxide 28 Anion Gap 14 BUN 20 H Creatinine 1.2 Est GFR ( Amer) 52 Est GFR (Non-Af Amer) 43 Random Glucose 143 H Calcium 8.9 Total Bilirubin 0.5 AST 32 ALT 31 Alkaline Phosphatase 43 Troponin I 0.0290 Total Protein 7.1 Albumin 3.9 Globulin 3.2 Albumin/Globulin Ratio 1.2 Urine Opiates Screen Urine Methadone Screen Ur Barbiturates Screen Ur Phencyclidine Scrn Ur Amphetamines Screen U Benzodiazepines Scrn U Oth Cocaine Metabols U Cannabinoids Screen 08/11/17 08/11/17 08/11/17 12:30 13:10 13:29 WBC RBC Hgb Hct MCV MCH MCHC RDW Plt Count MPV Neut % (Auto) Lymph % (Auto) Canadian % (Auto) Eos % (Auto) Baso % (Auto) Neut # (Auto) Lymph # (Auto) Canadian # (Auto) Eos # (Auto) Baso # (Auto) Neutrophils % (Manual) Lymphocytes % (Manual) Monocytes % (Manual) Platelet Estimate RBC Morphology PT INR APTT pCO2 36 pO2 27 L 65 L HCO3 27.4 ABG pH 7.48 H ABG Total CO2 27.9 ABG O2 Saturation 96.8 ABG O2 Content 15.4 ABG Base Excess 3.3 H ABG Hemoglobin 11.9 ABG Carboxyhemoglobin 2.4 H POC ABG HHb (Measured) 3.0 ABG Methemoglobin 2.5 ABG O2 Capacity 15.9 L Baljeet Test Yes VBG pH 7.08 L* VBG pCO2 84 H* VBG HCO3 17.6 VBG Total CO2 27.5 VBG O2 Sat (Calc) 30.8 L VBG Base Excess -7.0 L A-a O2 Difference 40.0 Hgb O2 Saturation 92.1 L Glucose 154 H Lactate 2.3 H FiO2 21.0 21.0 Crit Value Called To Emmy alcazar md Crit Value Called By Pn Crit Value Read Back Y Blood Gas Notified Time 1240 Sodium 120.0 L* Potassium Chloride 98.0 Carbon Dioxide Anion Gap BUN Creatinine Est GFR ( Amer) Est GFR (Non-Af Amer) Random Glucose Calcium Total Bilirubin AST ALT Alkaline Phosphatase Troponin I Total Protein Albumin Globulin Albumin/Globulin Ratio Urine Opiates Screen Negative Urine Methadone Screen Negative Ur Barbiturates Screen Negative Ur Phencyclidine Scrn Negative Ur Amphetamines Screen Negative U Benzodiazepines Scrn Negative U Oth Cocaine Metabols Negative U Cannabinoids Screen Negative - Imaging and Cardiology CT scan - head Additional comment: 1. No definite acute intracranial findings. 2. Stable 2.0 cm right parafalcine heavily calcified meningioma. 3. Age related neuro degenerative changes are reiterated with right cerebellar chronic lacune again evident as well. Dilated perivascular spaces appear to affect the inferior bilateral basal ganglia though additional chronic lacunae are not excluded. 4. Incidental chronic right mastoid effusions. Acute left sphenoid sinusitis also suggested. cxr Additional comment: no active disease Assessment & Plan - Assessment and Plan (Free Text) Assessment: 81 female with a history of cardiomyopathy EF 25-30% , s/p AICD, anxiety, pulmonary hypertension, COPD ( ex smoker ), HTN, Dyslipidemia, Hypothyroidism , lower back pain , sciatica, osteoporosis, RA brought to ER by EMS for syncope.History obtained from patient. She states that she was having therapy at home and went to use the toilet and while having a BM she felt diaphoretic and cold and passed out according to physical therapist . She was not moved from her toilet and EMS was called . As per her Physical therapist ( based on ER notes) there was no seizure like activity and she passed out for 7 minutes. She remembers everything after EMS came and brought her to ER. She denies any chest pain , SOB, palpitations, Blurry vision , FIELD, focal weakness. She states that she had a fall 1 week ago after coming out of shower with fall to her left side and head trauma . She denies any trip or fall or dizziness at that time. EMS had offered her to come to ER for evaluation but she refused to come. 1. 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 Systolic and diastolic CHF,chronic , compensated Pulmonary HTN, severe EF 25-30 % from last echo cont BB and ARB Cardiology consult with Dr. Da Silva . on Sildenafil for pulmonary Hypertension 3. COPD (chronic obstructive pulmonary disease), stable Chronic Duoneb prn Dr Gomez consult 4.Hypothyroidism Chronic cont Levothyroxine 5. DVT prophylaxis Lovenox
[2017-08-11 20:31] LABS: PROLACTIN 25.6 ng/mL (3.0-18.9)
[2017-08-12 05:07] LABS: BASO # 0.1 K/uL (0.0-0.2); BASO % 0.8 % (0.0-2.0); EOS # 0.1 K/uL (0.0-0.7); EOS % 1.5 % (0.0-4.0); HEMOGLOBIN 11.5 g/dL (12.0-16.0); LYMPH # 1.9 K/uL (1.0-4.3); LYMPH % 20.1 % (20.0-40.0); MEAN CELL VOLUME 99.2 fl (81.0-99.0); MEAN CORPUSCULAR HEMOGLOBIN 33.1 pg (27.0-31.0); MEAN CORPUSCULAR HGB CONC 33.4 g/dL (33.0-37.0); MEAN PLATELET VOLUME 8.5 fl (7.2-11.7); MONO # 0.9 K/uL (0.0-0.8); MONO % 10.1 % (0.0-10.0); NEUT # 6.3 K/uL (1.8-7.0); NEUT % 67.5 % (50.0-75.0); RBC 3.47 Mil/uL (3.80-5.20); RED CELL DISTRIBUTION WIDTH 14.4 % (11.5-14.5); WHITE BLOOD COUNT 9.3 K/uL (4.8-10.8)
[2017-08-12 05:22] LABS: CALCIUM 8.5 mg/dL (8.4-10.2)
[2017-08-12 05:26] LABS: TROPONIN I 0.026 ng/mL (0.00-0.120)
[2017-08-12] MEDS ORDERED: Levothyroxine 25 MCG TAB PO SCH (06:30)
[2017-08-12] MEDS ORDERED: ASCORBIC ACID 500 MG PO SCH (09:00)
[2017-08-12] MEDS ORDERED: Metoprolol Succinate 50 mg XL Tab PO SCH (09:00)
[2017-08-12] MEDS ORDERED: Cholecalciferol 1,000 INTLU TAB PO SCH (09:00)
[2017-08-12] MEDS ORDERED: Calcium-Vit D 500 mg-200 Units Tab UD PO SCH (09:00)
[2017-08-12] MEDS ORDERED: Enoxaparin 40 mg Syringe SC SCH (09:00)
[2017-08-12] MEDS ORDERED: Multivitamin With Minerals Tab PO SCH (09:00)
[2017-08-12] MEDS ORDERED: Lidocaine 5% Patch TD SCH (09:00)
[2017-08-12] MEDS ORDERED: Potassium Chloride 20 mEq ER Tab PO SCH (09:00)
[2017-08-12] MEDS: Sildenafil 20 MG TAB PO SCH ×3 (09:13→17:34)
--- NOTE | 2017-08-12 10:04 | CP.PCM.CON ---
Past Patient History - Infectious Disease Hx of Infectious Diseases: None - Tetanus Immunizations Tetanus Immunization: Unknown - Past Medical History & Family History Past Medical History?: Yes - Past Social History Smoking Status: Former Smoker Alcohol: None Drugs: Denies Home Situation {Lives}: Alone Domestic Violence: Negative - CARDIAC Hx Cardiac Disorders: Yes Hx Angina: No Hx Atrial Fibrillation: No Hx Cardia Arrhythmia: Yes Hx Circulatory Problems: No Hx Congestive Heart Failure: Yes Hx Heart Attack: Yes Hx Heart Murmur: No Hx Heart Transplant: No Hx Hypercholesterolemia: Yes Hx Hypertension: Yes Hx Hypotension: No Hx Internal Defibrillator: Yes Hx Mitral Valve Prolapse: No Hx Pacemaker: Yes (AICD) Hx Peripheral Edema: Yes Hx Peripheral Vascular Disease: No - PULMONARY Hx Respiratory Disorders: Yes Hx Asthma: No Hx Bronchitis: Yes Hx Chronic Obstructive Pulmonary Disease (COPD): Yes Hx Emphysema: No Hx Lung Cancer: No Hx Pneumonia: Yes Hx Pulmonary Edema: No Hx Pulmonary Embolism: No Hx Respiratory Aspiration: No Hx Respiratory Tract Infection: No Hx Sleep Apnea: No Hx Tuberculosis: No - NEUROLOGICAL Hx Neurological Disorder: Yes Hx Alzheimer's Disease: No HX Cerebrovascular Accident: No Hx Dementia: No Hx Dizziness: No Hx Meningitis: No Hx Migraine: No Hx Multiple Sclerosis: No Hx Paralysis: No Hx Parkinson's Disease: No Hx Seizures: No Hx Syncope: Yes Hx Transient Ischemic Attacks (TIA): Yes Hx Vertigo: No - HEENT Hx HEENT Problems: Yes Hx Blind: No Hx Cataracts: Yes Hx Deafness: No Hx Difficulty Chewing: No Hx Epistaxis: No Hx Glaucoma: No Hx Macular Degeneration: No Hx Sinusitis: No Other/Comment: chronic mastoiditis, right. - RENAL Hx Chronic Kidney Disease: No Hx Dialysis: No Hx Kidney Stones: No Hx Neurogenic Bladder: No Hx Pyelonephritis: No Hx Renal (Kidney) Cancer: No Hx Renal Failure: No - ENDOCRINE/METABOLIC Hx Endocrine Disorders: No Hx Adrenal Cancer: No Hx Diabetes Insipidus: No Hx Diabetes Mellitus Type 1: No Hx Diabetes Mellitus Type 2: No Hx Hypothyroidism: Yes Hx Systemic Lupus Erythematosus: No - HEMATOLOGICAL/ONCOLOGICAL Hx Blood Disorders: Yes Hx AIDS: No Hx Anemia: No Hx Blood Transfusions: No Hx Blood Transfusion Reaction: No Hx Bruising: No Hx Cancer: Yes Hx Chemotherapy: Yes Hx Cirrhosis: No Hx Gum Bleeding: No Hx Hemophilia: No Hx Hepatitis A: No Hx Hepatitis B: No Hx Hepatitis C: No Hx Human Immunodeficiency Virus (HIV): No Hx Leukemia: No Hx Metastesis: No Hx Shingles: No Hx Sickle Cell Disease: No Hx Unexplained Bleeding: No Hx von Willebrand's Disease: No - INTEGUMENTARY Hx Dermatological Problems: No Hx Basil Cell: No Hx Sun: No Hx Cellulitis: No Hx Eczema: No Hx Melanoma: No Hx Psoriasis: No Hx Squamous Cell: No - MUSCULOSKELETAL/RHEUMATOLOGICAL Hx Musculoskeletal Disorders: Yes Hx Arthritis: Yes Hx Back Pain: Yes Hx Degenerative Joint Disease: No Hx Falls: Yes Hx Fractures: No Hx Gout: No Hx Herniated Disk: No Hx Myasthenia Gravis: No Hx Osteoarthritis: No Hx Osteomyelitis: No Hx Osteoporosis: Yes Hx Rhabdomyolysis: No Hx Rheumatoid Arthritis: Yes Hx Spinal Stenosis: No Hx Unsteady Gait: Yes Other/Comment: sciatica - GASTROINTESTINAL Hx Gastrointestinal Disorders: No Hx Bowel Surgery: No Hx Clostridium Difficile: No Hx Colitis: No Hx Colostomy: No Hx Constipation: No Hx Crohn's Disease: No Hx Diarrhea: No Hx Diverticulitis: No Hx Esophageal Varices: No Hx Fatty Liver Disease: No Hx Gall Bladder Disease: No Hx Gastritis: No Hx Gastroesophageal Reflux: No Hx Hemorrhoids: No Hx Ileostomy: No Hx Irritable Bowel: No Hx Liver Failure: No Hx Nausea: No Hx Pancreatitis: No HX Swallowing Problems: No Hx Ulcer: No Hx Vomiting: No - GENITOURINARY/GYNECOLOGICAL Hx Genitourinary Disorders: Yes Hx Bladder Cancer: No Hx Bladder Stone: No Hx Cervical Cancer: No Hx Hematuria: No Hx Incontinence: Yes Hx Ovarian Cancer: No Hx Postmenopausal Bleeding: No Hx Reproductive Disorders: No Hx Sexually Transmitted Disorders: No Hx Uterine Cancer: No Hx Urinary Tract Infection: Yes (with sepsis) - PSYCHIATRIC Hx Psychophysiologic Disorder: No Hx Anxiety: No Hx Bipolar Disorder: No Hx Depression: No Hx Emotional Abuse: No Hx Hallucinations: No Hx Panic Symptoms: No Hx Paranoia: No Hx Post Traumatic Stress Disorder: No Hx Psychosis: No Hx Physical Abuse: No Hx Schizophrenia: No Hx Sexual Abuse: No Hx Substance Use: No - SURGICAL HISTORY Hx Surgeries: Yes Hx Abdominal Aortic Aneurysm Repair: No Hx Amputation: No Hx Angiogram: No Hx Angioplasty: No Hx Appendectomy: Yes Hx Arteriovenous Shunt: No Hx Arthroscopy: No Hx Bile Duct Stent: No Hx Breast Biopsy: Yes Hx Cataract Extraction: Yes Hx Cardiac Catheterization: No Hx Carotid Endarterectomy: No Hx Section: No Hx Cholecystectomy: Yes Hx Coronary Artery Bypass Graft: No Hx Coronary Stent: Yes Hx Dilation and Curettage: No Hx Eye Surgery: Yes Hx Femoral-Popliteal Bypass Graft: No Hx Gastric Bypass Surgery: No Hx Herniorrhaphy: No Hx Hysterectomy: No Hx Joint Replacement: No Hx Kidney Transplant: No Hx Liver Transplant: No Hx Mastectomy: Yes Hx Musculoskeletal Surgery: No Hx Open Heart Surgery: No Hx Open Reduction Internal Fixation: No Hx Orthopedic Surgery: No Hx Parathyroidectomy: No Hx Penile Implant: No Hx Pulmonary Surgery: No Hx Splenectomy: No Hx Thyroidectomy: No Hx Tonsillectomy: Yes Hx Tubal Ligation: Yes Hx Valve Replacement: No Hx Vascular Surgery: No Hx Vascular Access Device: No Other/Comment: pylinidal cyst - ANESTHESIA Hx Anesthesia: Yes Hx Anesthesia Reactions: No Hx Malignant Hyperthermia: No Has any member of the family had a problem w/ anesthesia?: No Meds Allergies/Adverse Reactions: Allergies Allergy/AdvReac Type Severity Reaction Status Date / Time No Known Allergies Allergy Verified 07/17/17 00:29 - Medications Medications: Current Medications Amiodarone HCl (Cordarone) 200 mg PO DAILY [facility] Last Admin: 08/12/17 09:03 Dose: 200 mg Anastrozole (Arimidex 1 Mg Tab) 1 mg PO DAILY [facility] Last Admin: 08/12/17 09:07 Dose: 1 mg Ascorbic Acid (Vitamin C 500 Mg Tab) 500 mg PO DAILY [facility] Last Admin: 08/12/17 09:09 Dose: 500 mg Aspirin (Ecotrin) 81 mg PO DAILY [facility] Last Admin: 08/12/17 09:04 Dose: 81 mg Atorvastatin Calcium (Lipitor) 20 mg PO [facility] Last Admin: 08/11/17 21:24 Dose: 20 mg Calcium/Vitamin D (Oyster Shell Calcium/Vitamin D 500 Mg-200 Iu) 1 tab PO DAILY [facility] Cholecalciferol (Vitamin D) 1,000 intlu PO DAILY [facility] Last Admin: 08/12/17 09:03 Dose: 1,000 intlu Docusate Sodium (Colace) 200 mg PO DAILY [facility] Last Admin: 08/12/17 09:10 Dose: 200 mg Enoxaparin Sodium (Lovenox) 40 mg SC DAILY [facility] PRN Reason: Protocol Last Admin: 08/12/17 09:02 Dose: 40 mg Furosemide (Lasix) 40 mg PO DAILY [facility] Last Admin: 08/12/17 09:09 Dose: 40 mg Lactulose (Enulose) 20 gm PO DAILY PRN PRN Reason: Constipation Levothyroxine Sodium (Synthroid) 25 mcg PO DAILY@0630 [facility] Last Admin: 08/12/17 05:41 Dose: 25 mcg Lidocaine (Lidoderm) 1 ea TD DAILY [facility] Last Admin: 08/12/17 09:10 Dose: 1 ea Losartan Potassium (Cozaar) 25 mg PO DAILY [facility] Last Admin: 08/12/17 09:05 Dose: 25 mg Memantine (Namenda) 10 mg PO DAILY [facility] Last Admin: 08/12/17 09:12 Dose: 10 mg Metoprolol Succinate (Toprol Xl) 50 mg PO DAILY [facility] Last Admin: 08/12/17 09:05 Dose: 50 mg Multivitamins/Minerals (Therapeutic-M Tab) 1 tab PO DAILY [facility] Pantoprazole Sodium (Protonix Ec Tab) 40 mg PO DAILY [facility] Potassium Chloride (K-Dur 20 Meq Er Tab) 20 meq PO DAILY [facility] Last Admin: 08/12/17 09:08 Dose: 20 meq Sildenafil Citrate (Revatio) 20 mg PO TID [facility] Last Admin: 08/12/17 09:13 Dose: 20 mg Tramadol HCl (Ultram) 50 mg PO DAILY [facility] Last Admin: 08/12/17 09:16 Dose: 50 mg Vitamin E (Vitamin E 400 Units Cap) 400 intlu PO DAILY [facility] Last Admin: 08/12/17 09:09 Dose: 400 intlu Results - Vital Signs Recent Vital Signs: Last Vital Signs Temp 98.8 F 08/12/17 08:00 Pulse 65 08/12/17 09:05 Resp 15 08/12/17 08:00 BP 146/71 08/12/17 09:09 Pulse Ox 98 08/12/17 08:00 - Labs Result Diagrams: 08/12/17 04:35 08/12/17 04:35 Labs: Laboratory Results - last 24 hr 08/11/17 08/11/17 08/11/17 12:15 12:15 12:30 WBC 12.1 H RBC 3.89 Hgb 12.7 Hct 38.6 MCV 99.1 H MCH 32.6 H MCHC 32.9 L RDW 14.5 Plt Count 199 D MPV 8.9 Neut % (Auto) 81.1 H Lymph % (Auto) 9.7 L Kendall % (Auto) 7.6 Eos % (Auto) 0.7 Baso % (Auto) 0.9 Neut # (Auto) 9.8 H Lymph # (Auto) 1.2 Kendall # (Auto) 0.9 H Eos # (Auto) 0.1 Baso # (Auto) 0.1 Neutrophils % (Manual) 80 H Lymphocytes % (Manual) 12 L Monocytes % (Manual) 8 Platelet Estimate Normal RBC Morphology Normal PT 10.6 INR 1.0 APTT 25.7 pCO2 pO2 HCO3 ABG pH ABG Total CO2 ABG O2 Saturation ABG O2 Content ABG Base Excess ABG Hemoglobin ABG Carboxyhemoglobin POC ABG HHb (Measured) ABG Methemoglobin ABG O2 Capacity Baljeet Test VBG pH VBG pCO2 VBG HCO3 VBG Total CO2 VBG O2 Sat (Calc) VBG Base Excess A-a O2 Difference Hgb O2 Saturation Glucose Lactate FiO2 Crit Value Called To Crit Value Called By Crit Value Read Back Blood Gas Notified Time Sodium 141 Potassium 3.5 L Chloride 103 Carbon Dioxide 28 Anion Gap 14 BUN 20 H Creatinine 1.2 Est GFR ( Amer) 52 Est GFR (Non-Af Amer) 43 Random Glucose 143 H Calcium 8.9 Total Bilirubin 0.5 AST 32 ALT 31 Alkaline Phosphatase 43 Troponin I 0.0290 Total Protein 7.1 Albumin 3.9 Globulin 3.2 Albumin/Globulin Ratio 1.2 Prolactin 25.6 H Urine Opiates Screen Urine Methadone Screen Ur Barbiturates Screen Ur Phencyclidine Scrn Ur Amphetamines Screen U Benzodiazepines Scrn U Oth Cocaine Metabols U Cannabinoids Screen 08/11/17 08/11/17 08/11/17 12:30 13:10 13:29 WBC RBC Hgb Hct MCV MCH MCHC RDW Plt Count MPV Neut % (Auto) Lymph % (Auto) Kendall % (Auto) Eos % (Auto) Baso % (Auto) Neut # (Auto) Lymph # (Auto) Kendall # (Auto) Eos # (Auto) Baso # (Auto) Neutrophils % (Manual) Lymphocytes % (Manual) Monocytes % (Manual) Platelet Estimate RBC Morphology PT INR APTT pCO2 36 pO2 27 L 65 L HCO3 27.4 ABG pH 7.48 H ABG Total CO2 27.9 ABG O2 Saturation 96.8 ABG O2 Content 15.4 ABG Base Excess 3.3 H ABG Hemoglobin 11.9 ABG Carboxyhemoglobin 2.4 H POC ABG HHb (Measured) 3.0 ABG Methemoglobin 2.5 ABG O2 Capacity 15.9 L Baljeet Test Yes VBG pH 7.08 L* VBG pCO2 84 H* VBG HCO3 17.6 VBG Total CO2 27.5 VBG O2 Sat (Calc) 30.8 L VBG Base Excess -7.0 L A-a O2 Difference 40.0 Hgb O2 Saturation 92.1 L Glucose 154 H Lactate 2.3 H FiO2 21.0 21.0 Crit Value Called To Emmy alcazar md Crit Value Called By Pn Crit Value Read Back Y Blood Gas Notified Time 1240 Sodium 120.0 L* Potassium Chloride 98.0 Carbon Dioxide Anion Gap BUN Creatinine Est GFR ( Amer) Est GFR (Non-Af Amer) Random Glucose Calcium Total Bilirubin AST ALT Alkaline Phosphatase Troponin I Total Protein Albumin Globulin Albumin/Globulin Ratio Prolactin Urine Opiates Screen Negative Urine Methadone Screen Negative Ur Barbiturates Screen Negative Ur Phencyclidine Scrn Negative Ur Amphetamines Screen Negative U Benzodiazepines Scrn Negative U Oth Cocaine Metabols Negative U Cannabinoids Screen Negative 08/12/17 08/12/17 08/12/17 02:52 04:35 04:35 WBC 9.3 RBC 3.47 L Hgb 11.5 L Hct 34.5 MCV 99.2 H MCH 33.1 H MCHC 33.4 RDW 14.4 Plt Count 159 MPV 8.5 Neut % (Auto) 67.5 Lymph % (Auto) 20.1 Kendall % (Auto) 10.1 H Eos % (Auto) 1.5 Baso % (Auto) 0.8 Neut # (Auto) 6.3 Lymph # (Auto) 1.9 Kendall # (Auto) 0.9 H Eos # (Auto) 0.1 Baso # (Auto) 0.1 Neutrophils % (Manual) Lymphocytes % (Manual) Monocytes % (Manual) Platelet Estimate RBC Morphology PT INR APTT pCO2 pO2 HCO3 ABG pH ABG Total CO2 ABG O2 Saturation ABG O2 Content ABG Base Excess ABG Hemoglobin ABG Carboxyhemoglobin POC ABG HHb (Measured) ABG Methemoglobin ABG O2 Capacity Baljeet Test VBG pH VBG pCO2 VBG HCO3 VBG Total CO2 VBG O2 Sat (Calc) VBG Base Excess A-a O2 Difference Hgb O2 Saturation Glucose Lactate FiO2 Crit Value Called To Crit Value Called By Crit Value Read Back Blood Gas Notified Time Sodium 141 Potassium 3.8 Chloride 108 H Carbon Dioxide 26 Anion Gap 11 BUN 17 Creatinine 1.2 Est GFR ( Amer) 52 Est GFR (Non-Af Amer) 43 Random Glucose 89 Calcium 8.5 Total Bilirubin AST ALT Alkaline Phosphatase Troponin I 0.0260 0.0260 Total Protein Albumin Globulin Albumin/Globulin Ratio Prolactin Urine Opiates Screen Urine Methadone Screen Ur Barbiturates Screen Ur Phencyclidine Scrn Ur Amphetamines Screen U Benzodiazepines Scrn U Oth Cocaine Metabols U Cannabinoids Screen Assessment & Plan (1) Syncope Status: Acute Priority: High (2) Pulmonary arterial hypertension Status: Chronic Priority: High (3) Sinusitis Status: Acute Priority: Medium (4) COPD (chronic obstructive pulmonary disease) Status: Chronic Priority: Medium (5) Cardiomyopathy Status: Chronic Priority: High (6) Chronic congestive heart failure Status: Inactive Priority: High - Date & Time Date: 08/12/17 Time: 10:04
[2017-08-12] MEDS ORDERED: Pantoprazole 40 mg EC Tab PO SCH (10:15)
--- NOTE | 2017-08-12 11:59 | CARD ---
APPROVED REPORT EKG Measurement Heart [id number] <Conclusion> Atrial-paced rhythm Moderate voltage criteria for LVH, may be normal variant T wave abnormality, consider anterolateral ischemia Abnormal ECG
[2017-08-12] MEDS ORDERED: Iodixanol 320 MG/ML 100 ML BOTTLE IV ONE (12:01)
[2017-08-12] MEDS ORDERED: Sodium Chloride 0.9% 50 ML IV ONE (12:01)
[2017-08-12 12:31] VITALS: PULSE 61
--- NOTE | 2017-08-12 12:50 | US ---
PROCEDURE: Duplex ultrasound of the carotid and vertebral arteries. HISTORY: Syncope. COMPARISON: 02/27/2013 TECHNIQUE: Grayscale and duplex Doppler evaluation of the cervical carotid and vertebral arteries were performed. The common carotid, carotid bifurcations and cervical ICA and proximal ECA were evaluated. The vertebral arteries were evaluated for gross patency and direction. FINDINGS: RIGHT CAROTID ARTERIES: Common Carotid Artery: Intimal thickening is present Maximal flow velocity of 78.9 cm/s. Carotid Bifurcation: Partially calcified plaque Internal Carotid Artery:Heterogeneous plaque formation. Maximal flow velocity of 106.4 cm/s. External Carotid Artery (proximal branches): Normal. Maximal flow velocity of 69.8 cm/s. ICA/CCA Ratio: 1.4 LEFT CAROTID ARTERIES: Common Carotid Artery: Intimal thickening is present there is calcified plaque distal left CCA Maximal flow velocity of 103.0 cm/s. Carotid Bifurcation: Calcified plaque in the bulb. Internal Carotid Artery:Heterogeneous plaque formation. Maximal flow velocity of 109.2 cm/s. External Carotid Artery (proximal branches): Normal. Maximal flow velocity of 76.5 cm/s. ICA/CCA Ratio: 1.7 VERTEBRAL ARTERIES: Right Vertebral Artery: Patent. Antegrade flow. Left Vertebral Artery: Patent. Antegrade flow. OTHER FINDINGS: None. IMPRESSION: No significant interval change compared to the prior examination(s). Right ICA degree of stenosis: Less than 50% Left ICA degree of stenosis: Less than 50% Reference Internal Carotid Artery (ICA) Peak Systolic Velocity (PSV) for above: 1. Less than 50% stenosis less than 125 cm/s peak systolic velocity 2. 50-69% stenosis 125-230cm/s peak systolic velocity 3. Greater than 70% but less than near occlusion greater than 230 cm/s peak systolic velocity
--- NOTE | 2017-08-12 13:06 | PCM.EEG ---
Electroencephalogram Report - Electroencephalogram Report Procedure Date: 08/12/17 Interpretation: Increased generalized slowing more than normal for age. no seizures. Impression: increased slowing indicates encephalopathy, no seizures noted. report dictated
--- NOTE | 2017-08-12 15:50 | CT ---
PROCEDURE: CT Angiography of the Head and Neck. HISTORY: syncope, r/o VBI COMPARISON: None available. TECHNIQUE: CT angiography of the intracranial and neck arteries was performed. Coronal and sagittal maximum intensity projection reformatted images were generated. Contrast Dose: Visipaque 320, 95 cc Radiation dose:Total exam DLP = 2119.62 mGy-cm. This CT exam was performed using one or more of the following dose reduction techniques: Automated exposure control, adjustment of the mA and/or kV according to patient size, and/or use of iterative reconstruction technique. FINDINGS: INTERNAL CEREBRAL ARTERIES: The bilateral cavernous internal carotid artery segments are atherosclerotic with mild stenoses appearing symmetric. The skull base, petrous, and supraclinoid segments are bilaterally widely patent. ANTERIOR CEREBRAL ARTERIES: Unremarkable. A1 and A2 segments are widely patent. Smaller distal branches unremarkable, as visualized. MIDDLE CEREBRAL ARTERIES: Unremarkable. M1 and M2 segments are widely patent. Perisylvian branches grossly symmetric. POSTERIOR CIRCULATION: Basilar Artery: Unremarkable. Distal Vertebral Arteries: Left dominant vertebrobasilar circulation due to patent but hypoplastic distal right vertebral artery. Hypoplastic but patent bilateral posterior communicating arteries. Posterior Cerebral Arteries: Unremarkable. Posterior Inferior Cerebellar Arteries: Unremarkable. NECK CTA: Common Carotid arteries: The bilateral common carotid appear patent from their origins to their bifurcations with no significant stenosis appreciated. However, bilateral carotid bulbar atherosclerotic plaque which continues into the origin of the right ICA but not the left. No evidence to suggest common carotid artery dissection. Internal Carotid arteries: 55-65 percent stenoses of the proximal bilateral internal carotid arteries is identified at the origin of the right and just distal to the origin at the left in short segments with the bilateral internal carotid arteries otherwise widely patent. External Carotid arteries: Appear unremarkable bilaterally. Vertebral arteries: There is no significant bilateral cervical vertebral artery stenosis however atherosclerotic plaque is seen minimally at the right and to a [id number] central left without significant stenosis resulting. ANEURYSM/ VASCULAR MALFORMATIONS: None. OTHER FINDINGS: Right parafalcine meningioma reiterated. IMPRESSION: 1. No occlusion is appreciated in CT angiography of the head and neck. There is also no high-grade stenosis identified throughout. 2. However, moderate bilateral proximal internal carotid artery stenoses are identified with mild bilateral cavernous ICA segmental stenoses present due to atherosclerosis. 3. Minimal right and [id number] left cervical vertebral artery atherosclerosis with hypoplastic distal right vertebral artery evident. The basilar artery is widely patent. Bilateral posterior communicating arteries also appear patent though hypoplastic.
[2017-08-12 16:12] VITALS: BP 140/62; RESP 17; TEMP 98.1; O2SAT 98
--- NOTE | 2017-08-12 16:47 | CP.PCM.CON ---
History of Present Illness - History of Present Illness History of Present Illness: Mrs. Marte is an 81-year-old woman with a past medical history of cardiomyopathy EF 25-30%, s/p AICD, anxiety, pulmonary hypertension, COPD, HTN, Dyslipidemia, Hypothyroidism ,lower back pain , sciatica, osteoporosis, RA who is currently admitted for having a syncopal episode. According to the history obtained from the home health aid, the patient was unconscious for about 5-6 minutes. She was on the toilet, having a bowel movement, and she felt diaphoretic, palpitations and lost consciousness. When she woke up, she was still clammy, but back to normal mentation, awareness and was not lethargic/ somnolent, etc. CT scan of the head was done and was normal. EEG was normal. 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 Review of Systems - Review of Systems All systems: reviewed and no additional remarkable complaints except Past Patient History - Infectious Disease Hx of Infectious Diseases: None - Tetanus Immunizations Tetanus Immunization: Unknown - Past Medical History & Family History Past Medical History?: Yes - Past Social History Smoking Status: Former Smoker Alcohol: None Drugs: Denies Home Situation {Lives}: Alone Domestic Violence: Negative - CARDIAC Hx Cardiac Disorders: Yes Hx Angina: No Hx Atrial Fibrillation: No Hx Cardia Arrhythmia: Yes Hx Circulatory Problems: No Hx Congestive Heart Failure: Yes Hx Heart Attack: Yes Hx Heart Murmur: No Hx Heart Transplant: No Hx Hypercholesterolemia: Yes Hx Hypertension: Yes Hx Hypotension: No Hx Internal Defibrillator: Yes Hx Mitral Valve Prolapse: No Hx Pacemaker: Yes (AICD) Hx Peripheral Edema: Yes Hx Peripheral Vascular Disease: No - PULMONARY Hx Respiratory Disorders: Yes Hx Asthma: No Hx Bronchitis: Yes Hx Chronic Obstructive Pulmonary Disease (COPD): Yes Hx Emphysema: No Hx Lung Cancer: No Hx Pneumonia: Yes Hx Pulmonary Edema: No Hx Pulmonary Embolism: No Hx Respiratory Aspiration: No Hx Respiratory Tract Infection: No Hx Sleep Apnea: No Hx Tuberculosis: No - NEUROLOGICAL Hx Neurological Disorder: Yes Hx Alzheimer's Disease: No HX Cerebrovascular Accident: No Hx Dementia: No Hx Dizziness: No Hx Meningitis: No Hx Migraine: No Hx Multiple Sclerosis: No Hx Paralysis: No Hx Parkinson's Disease: No Hx Seizures: No Hx Syncope: Yes Hx Transient Ischemic Attacks (TIA): Yes Hx Vertigo: No - HEENT Hx HEENT Problems: Yes Hx Blind: No Hx Cataracts: Yes Hx Deafness: No Hx Difficulty Chewing: No Hx Epistaxis: No Hx Glaucoma: No Hx Macular Degeneration: No Hx Sinusitis: No Other/Comment: chronic mastoiditis, right. - RENAL Hx Chronic Kidney Disease: No Hx Dialysis: No Hx Kidney Stones: No Hx Neurogenic Bladder: No Hx Pyelonephritis: No Hx Renal (Kidney) Cancer: No Hx Renal Failure: No - ENDOCRINE/METABOLIC Hx Endocrine Disorders: No Hx Adrenal Cancer: No Hx Diabetes Insipidus: No Hx Diabetes Mellitus Type 1: No Hx Diabetes Mellitus Type 2: No Hx Hypothyroidism: Yes Hx Systemic Lupus Erythematosus: No - HEMATOLOGICAL/ONCOLOGICAL Hx Blood Disorders: Yes Hx AIDS: No Hx Anemia: No Hx Blood Transfusions: No Hx Blood Transfusion Reaction: No Hx Bruising: No Hx Cancer: Yes Hx Chemotherapy: Yes Hx Cirrhosis: No Hx Gum Bleeding: No Hx Hemophilia: No Hx Hepatitis A: No Hx Hepatitis B: No Hx Hepatitis C: No Hx Human Immunodeficiency Virus (HIV): No Hx Leukemia: No Hx Metastesis: No Hx Shingles: No Hx Sickle Cell Disease: No Hx Unexplained Bleeding: No Hx von Willebrand's Disease: No - INTEGUMENTARY Hx Dermatological Problems: No Hx Basil Cell: No Hx Sun: No Hx Cellulitis: No Hx Eczema: No Hx Melanoma: No Hx Psoriasis: No Hx Squamous Cell: No - MUSCULOSKELETAL/RHEUMATOLOGICAL Hx Musculoskeletal Disorders: Yes Hx Arthritis: Yes Hx Back Pain: Yes Hx Degenerative Joint Disease: No Hx Falls: Yes Hx Fractures: No Hx Gout: No Hx Herniated Disk: No Hx Myasthenia Gravis: No Hx Osteoarthritis: No Hx Osteomyelitis: No Hx Osteoporosis: Yes Hx Rhabdomyolysis: No Hx Rheumatoid Arthritis: Yes Hx Spinal Stenosis: No Hx Unsteady Gait: Yes Other/Comment: sciatica - GASTROINTESTINAL Hx Gastrointestinal Disorders: No Hx Bowel Surgery: No Hx Clostridium Difficile: No Hx Colitis: No Hx Colostomy: No Hx Constipation: No Hx Crohn's Disease: No Hx Diarrhea: No Hx Diverticulitis: No Hx Esophageal Varices: No Hx Fatty Liver Disease: No Hx Gall Bladder Disease: No Hx Gastritis: No Hx Gastroesophageal Reflux: No Hx Hemorrhoids: No Hx Ileostomy: No Hx Irritable Bowel: No Hx Liver Failure: No Hx Nausea: No Hx Pancreatitis: No HX Swallowing Problems: No Hx Ulcer: No Hx Vomiting: No - GENITOURINARY/GYNECOLOGICAL Hx Genitourinary Disorders: Yes Hx Bladder Cancer: No Hx Bladder Stone: No Hx Cervical Cancer: No Hx Hematuria: No Hx Incontinence: Yes Hx Ovarian Cancer: No Hx Postmenopausal Bleeding: No Hx Reproductive Disorders: No Hx Sexually Transmitted Disorders: No Hx Uterine Cancer: No Hx Urinary Tract Infection: Yes (with sepsis) - PSYCHIATRIC Hx Psychophysiologic Disorder: No Hx Anxiety: No Hx Bipolar Disorder: No Hx Depression: No Hx Emotional Abuse: No Hx Hallucinations: No Hx Panic Symptoms: No Hx Paranoia: No Hx Post Traumatic Stress Disorder: No Hx Psychosis: No Hx Physical Abuse: No Hx Schizophrenia: No Hx Sexual Abuse: No Hx Substance Use: No - SURGICAL HISTORY Hx Surgeries: Yes Hx Abdominal Aortic Aneurysm Repair: No Hx Amputation: No Hx Angiogram: No Hx Angioplasty: No Hx Appendectomy: Yes Hx Arteriovenous Shunt: No Hx Arthroscopy: No Hx Bile Duct Stent: No Hx Breast Biopsy: Yes Hx Cataract Extraction: Yes Hx Cardiac Catheterization: No Hx Carotid Endarterectomy: No Hx Section: No Hx Cholecystectomy: Yes Hx Coronary Artery Bypass Graft: No Hx Coronary Stent: Yes Hx Dilation and Curettage: No Hx Eye Surgery: Yes Hx Femoral-Popliteal Bypass Graft: No Hx Gastric Bypass Surgery: No Hx Herniorrhaphy: No Hx Hysterectomy: No Hx Joint Replacement: No Hx Kidney Transplant: No Hx Liver Transplant: No Hx Mastectomy: Yes Hx Musculoskeletal Surgery: No Hx Open Heart Surgery: No Hx Open Reduction Internal Fixation: No Hx Orthopedic Surgery: No Hx Parathyroidectomy: No Hx Penile Implant: No Hx Pulmonary Surgery: No Hx Splenectomy: No Hx Thyroidectomy: No Hx Tonsillectomy: Yes Hx Tubal Ligation: Yes Hx Valve Replacement: No Hx Vascular Surgery: No Hx Vascular Access Device: No Other/Comment: pylinidal cyst - ANESTHESIA Hx Anesthesia: Yes Hx Anesthesia Reactions: No Hx Malignant Hyperthermia: No Has any member of the family had a problem w/ anesthesia?: No Meds Allergies/Adverse Reactions: Allergies Allergy/AdvReac Type Severity Reaction Status Date / Time No Known Allergies Allergy Verified 07/17/17 00:29 - Medications Medications: Current Medications Amiodarone HCl (Cordarone) 200 mg PO DAILY [facility] Last Admin: 08/12/17 09:03 Dose: 200 mg Anastrozole (Arimidex 1 Mg Tab) 1 mg PO DAILY [facility] Last Admin: 08/12/17 09:07 Dose: 1 mg Ascorbic Acid (Vitamin C 500 Mg Tab) 500 mg PO DAILY [facility] Last Admin: 08/12/17 09:09 Dose: 500 mg Aspirin (Ecotrin) 81 mg PO DAILY [facility] Last Admin: 08/12/17 09:04 Dose: 81 mg Atorvastatin Calcium (Lipitor) 20 mg PO HS [facility] Last Admin: 08/11/17 21:24 Dose: 20 mg Calcium/Vitamin D (Oyster Shell Calcium/Vitamin D 500 Mg-200 Iu) 1 tab PO DAILY [facility] Last Admin: 08/12/17 10:24 Dose: 1 tab Cholecalciferol (Vitamin D) 1,000 intlu PO DAILY [facility] Last Admin: 08/12/17 09:03 Dose: 1,000 intlu Docusate Sodium (Colace) 200 mg PO DAILY [facility] Last Admin: 08/12/17 09:10 Dose: 200 mg Enoxaparin Sodium (Lovenox) 40 mg SC DAILY [facility] PRN Reason: Protocol Last Admin: 08/12/17 09:02 Dose: 40 mg Furosemide (Lasix) 40 mg PO DAILY [facility] Last Admin: 08/12/17 09:09 Dose: 40 mg Lactulose (Enulose) 20 gm PO DAILY PRN PRN Reason: Constipation Levothyroxine Sodium (Synthroid) 25 mcg PO DAILY@0630 [facility] Last Admin: 08/12/17 05:41 Dose: 25 mcg Lidocaine (Lidoderm) 1 ea TD DAILY [facility] Last Admin: 08/12/17 09:10 Dose: 1 ea Losartan Potassium (Cozaar) 25 mg PO DAILY [facility] Last Admin: 08/12/17 09:05 Dose: 25 mg Memantine (Namenda) 10 mg PO DAILY [facility] Last Admin: 08/12/17 09:12 Dose: 10 mg Metoprolol Succinate (Toprol Xl) 50 mg PO DAILY [facility] Last Admin: 08/12/17 09:05 Dose: 50 mg Multivitamins/Minerals (Therapeutic-M Tab) 1 tab PO DAILY [facility] Last Admin: 08/12/17 10:23 Dose: 1 tab Pantoprazole Sodium (Protonix Ec Tab) 40 mg PO DAILY [facility] Last Admin: 08/12/17 10:23 Dose: 40 mg Potassium Chloride (K-Dur 20 Meq Er Tab) 20 meq PO DAILY [facility] Last Admin: 08/12/17 09:08 Dose: 20 meq Sildenafil Citrate (Revatio) 20 mg PO TID [facility] Last Admin: 08/12/17 13:06 Dose: 20 mg Tramadol HCl (Ultram) 50 mg PO DAILY [facility] Last Admin: 08/12/17 09:16 Dose: 50 mg Vitamin E (Vitamin E 400 Units Cap) 400 intlu PO DAILY [facility] Last Admin: 08/12/17 09:09 Dose: 400 intlu Physical Exam - Neurological Exam Neurological exam: Alert, CN II-XII Intact, Normal Gait, Oriented x3, Reflexes Normal Results - Vital Signs Recent Vital Signs: Last Vital Signs Temp 98.1 F 08/12/17 16:00 Pulse 61 08/12/17 16:00 Resp 17 08/12/17 16:00 BP 140/62 08/12/17 16:00 Pulse Ox 98 08/12/17 16:00 - Labs Result Diagrams: 08/12/17 04:35 08/12/17 04:35 Labs: Laboratory Results - last 24 hr 08/11/17 08/12/17 08/12/17 12:15 02:52 04:35 WBC RBC Hgb Hct MCV MCH MCHC RDW Plt Count MPV Neut % (Auto) Lymph % (Auto) Henry % (Auto) Eos % (Auto) Baso % (Auto) Neut # (Auto) Lymph # (Auto) Henry # (Auto) Eos # (Auto) Baso # (Auto) Sodium 141 Potassium 3.8 Chloride 108 H Carbon Dioxide 26 Anion Gap 11 BUN 17 Creatinine 1.2 Est GFR ( Amer) 52 Est GFR (Non-Af Amer) 43 Random Glucose 89 Calcium 8.5 Troponin I 0.0260 0.0260 Prolactin 25.6 H 08/12/17 08/12/17 04:35 10:29 WBC 9.3 RBC 3.47 L Hgb 11.5 L Hct 34.5 MCV 99.2 H MCH 33.1 H MCHC 33.4 RDW 14.4 Plt Count 159 MPV 8.5 Neut % (Auto) 67.5 Lymph % (Auto) 20.1 Henry % (Auto) 10.1 H Eos % (Auto) 1.5 Baso % (Auto) 0.8 Neut # (Auto) 6.3 Lymph # (Auto) 1.9 Henry # (Auto) 0.9 H Eos # (Auto) 0.1 Baso # (Auto) 0.1 Sodium Potassium Chloride Carbon Dioxide Anion Gap BUN Creatinine Est GFR ( Amer) Est GFR (Non-Af Amer) Random Glucose Calcium Troponin I 0.0260 Prolactin Assessment & Plan (1) Neurocardiogenic syncope Assessment and Plan: I recommend cardiac work-up as well as tilt table testing. Continue current management for CHF, and avoid dehydration due to generalized cerebrovascular hypoplastic or stenotic vessels. Would increase aspirin to 325 mg daily and check platelet function testing. Thank you. Status: Acute Priority: High
--- NOTE | 2017-08-12 18:01 | CP.PCM.DIS ---
Provider - Provider Date of Admission: 08/11/17 14:48 Attending physician: Marie Ralph MD Primary care physician: Dr. Holden Consults: cardiology consult neurology consult pulmonary consult Time Spent in preparation of Discharge (in minutes): 20 Hospital Course - Lab Results Lab Results: Most Recent Lab Values WBC 9.3 K/uL (4.8-10.8) 08/12/17 04:35 RBC 3.47 Mil/uL (3.80-5.20) L 08/12/17 04:35 Hgb 11.5 g/dL (12.0-16.0) L 08/12/17 04:35 Hct 34.5 % (34.0-47.0) 08/12/17 04:35 MCV 99.2 fl (81.0-99.0) H 08/12/17 04:35 MCH 33.1 pg (27.0-31.0) H 08/12/17 04:35 MCHC 33.4 g/dL (33.0-37.0) 08/12/17 04:35 RDW 14.4 % (11.5-14.5) 08/12/17 04:35 Plt Count 159 K/uL (130-400) 08/12/17 04:35 MPV 8.5 fl (7.2-11.7) 08/12/17 04:35 Neut % (Auto) 67.5 % (50.0-75.0) 08/12/17 04:35 Lymph % (Auto) 20.1 % (20.0-40.0) 08/12/17 04:35 [place] % (Auto) 10.1 % (0.0-10.0) H 08/12/17 04:35 Eos % (Auto) 1.5 % (0.0-4.0) 08/12/17 04:35 Baso % (Auto) 0.8 % (0.0-2.0) 08/12/17 04:35 Neut # (Auto) 6.3 K/uL (1.8-7.0) 08/12/17 04:35 Lymph # (Auto) 1.9 K/uL (1.0-4.3) 08/12/17 04:35 [place] # (Auto) 0.9 K/uL (0.0-0.8) H 08/12/17 04:35 Eos # (Auto) 0.1 K/uL (0.0-0.7) 08/12/17 04:35 Baso # (Auto) 0.1 K/uL (0.0-0.2) 08/12/17 04:35 Neutrophils % (Manual) 80 % (42-75) H 08/11/17 12:15 Lymphocytes % (Manual) 12 % (20-50) L 08/11/17 12:15 Monocytes % (Manual) 8 % (0-10) 08/11/17 12:15 Platelet Estimate Normal (NORMAL) 08/11/17 12:15 RBC Morphology Normal (NORMAL) 08/11/17 12:15 PT 10.6 Seconds (9.8-13.1) 08/11/17 12:30 INR 1.0 (0.9-1.2) 08/11/17 12:30 APTT 25.7 Seconds (25.6-37.1) 08/11/17 12:30 pCO2 36 mm/Hg (35-45) 08/11/17 13:29 pO2 65 mm/Hg (80-100) L 08/11/17 13:29 HCO3 27.4 mmol/L (21-28) 08/11/17 13:29 ABG pH 7.48 (7.35-7.45) H 08/11/17 13:29 ABG Total CO2 27.9 mmol/L (22-28) 08/11/17 13:29 ABG O2 Saturation 96.8 % (95-98) 08/11/17 13:29 ABG O2 Content 15.4 ML/dL (15-23) 08/11/17 13:29 ABG Base Excess 3.3 mmol/L (-2.0-3.0) H 08/11/17 13:29 ABG Hemoglobin 11.9 g/dL (11.7-17.4) 08/11/17 13:29 ABG Carboxyhemoglobin 2.4 % (0.5-1.5) H 08/11/17 13:29 POC ABG HHb (Measured) 3.0 % (0.0-5.0) 08/11/17 13:29 ABG Methemoglobin 2.5 % (0.0-3.0) 08/11/17 13:29 ABG O2 Capacity 15.9 mL/dL (16-24) L 08/11/17 13:29 Baljeet Test Yes 08/11/17 13:29 VBG pH 7.08 (7.32-7.43) L* 08/11/17 12:30 VBG pCO2 84 mmHg (40-60) H* 08/11/17 12:30 VBG HCO3 17.6 mmol/L 08/11/17 12:30 VBG Total CO2 27.5 mmol/L (22-28) 08/11/17 12:30 VBG O2 Sat (Calc) 30.8 % (40-65) L 08/11/17 12:30 VBG Base Excess -7.0 mmol/L (0.0-2.0) L 08/11/17 12:30 A-a O2 Difference 40.0 mm/Hg 08/11/17 13:29 Hgb O2 Saturation 92.1 % (95.0-98.0) L 08/11/17 13:29 Sodium 120.0 mmol/L (132-148) L* 08/11/17 12:30 Chloride 98.0 mmol/L (98-107) 08/11/17 12:30 Glucose 154 mg/dL (65-105) H 08/11/17 12:30 Lactate 2.3 mmol/L (0.7-2.1) H 08/11/17 12:30 FiO2 21.0 % 08/11/17 13:29 Crit Value Called To Emmy alcazar md 08/11/17 12:30 Crit Value Called By Yash 08/11/17 12:30 Crit Value Read Back Y 08/11/17 12:30 Blood Gas Notified Time 1240 08/11/17 12:30 Sodium 141 mmol/l (132-148) 08/12/17 04:35 Potassium 3.8 MMOL/L (3.6-5.0) 08/12/17 04:35 Chloride 108 mmol/L (98-107) H 08/12/17 04:35 Carbon Dioxide 26 mmol/L (22-30) 08/12/17 04:35 Anion Gap 11 (10-20) 08/12/17 04:35 BUN 17 mg/dl (7-17) 08/12/17 04:35 Creatinine 1.2 mg/dl (0.7-1.2) 08/12/17 04:35 Est GFR ( Amer) 52 08/12/17 04:35 Est GFR (Non-Af Amer) 43 08/12/17 04:35 Random Glucose 89 mg/dL (65-105) 08/12/17 04:35 Calcium 8.5 mg/dL (8.4-10.2) 08/12/17 04:35 Total Bilirubin 0.5 mg/dl (0.2-1.3) 08/11/17 12:15 AST 32 U/L (14-36) 08/11/17 12:15 ALT 31 U/L (9-52) 08/11/17 12:15 Alkaline Phosphatase 43 U/L (38-126) 08/11/17 12:15 Troponin I 0.0260 ng/mL (0.00-0.120) 08/12/17 10:29 Total Protein 7.1 G/DL (6.3-8.2) 08/11/17 12:15 Albumin 3.9 g/dL (3.5-5.0) 08/11/17 12:15 Globulin 3.2 gm/dL (2.2-3.9) 08/11/17 12:15 Albumin/Globulin Ratio 1.2 (1.0-2.1) 08/11/17 12:15 Prolactin 25.6 ng/mL (3.0-18.9) H 08/11/17 12:15 Urine Opiates Screen Negative (NEGATIVE) 08/11/17 13:10 Urine Methadone Screen Negative (NEGATIVE) 08/11/17 13:10 Ur Barbiturates Screen Negative (NEGATIVE) 08/11/17 13:10 Ur Phencyclidine Scrn Negative (NEGATIVE) 08/11/17 13:10 Ur Amphetamines Screen Negative (NEGATIVE) 08/11/17 13:10 U Benzodiazepines Scrn Negative (NEGATIVE) 08/11/17 13:10 U Oth Cocaine Metabols Negative (NEGATIVE) 08/11/17 13:10 U Cannabinoids Screen Negative (NEGATIVE) 08/11/17 13:10 - Hospital Course Hospital Course: 81 female with a history of cardiomyopathy EF 25-30% , s/p AICD, anxiety, pulmonary hypertension, COPD ( ex smoker ), HTN, Dyslipidemia, Hypothyroidism , lower back pain , sciatica, osteoporosis, RA brought to ER by EMS for syncope.History obtained from patient. She states that she was having therapy at home and went to use the toilet and while having a BM she felt diaphoretic and cold and passed out according to physical therapist . She was not moved from her toilet and EMS was called . As per her Physical therapist ( based on ER notes) there was no seizure like activity and she passed out for 7 minutes. She remembers everything after EMS came and brought her to ER. She denies any chest pain , SOB, palpitations, Blurry vision , FIELD, focal weakness. She states that she had a fall 1 week ago after coming out of shower with fall to her left side and head trauma . She denies any trip or fall or dizziness at that time. EMS had offered her to come to ER for evaluation but she refused to come. CT head in ER showed no acute pathology. patient placed under observation in telemetry for Syncopy. Neurologically remained intact with no orthosthatic changes.Tele monitor showed no arrythmias.EEG showed no seizure activity. CTA head and neck showed no stenosis. Discussed also with cardiology. Most likely episode Vasovagal patient is hemodynamically stable, afebrile, with no neuro deficits. will discharge patient home . She has home health care services and PT services at home. iscussed with patient about possibility of placement to assisted living facility but she refuses at present Arrangements made by for transfer with [facility] services at home. faimly ( patient's brother is aware). offered possible discharge in AM but patient prefers to go home tonight Recommend follow up with her [employer] Dr. Da Silva as out patient and her PMD 1. Syncopy most likely vasovagal episode telemetry showed no arryrthmias, no prthostatic changes no neuro deficits CT head showed no acute pathology unable to perform MRI since patient has AICD cardiology and neurology eval apprecaited EEG showed no seizure activity Carotid doppler , CTA head and neck showed no stenosis 2. Systolic and diastolic CHF,chronic , compensated Pulmonary HTN, severe EF 25-30 % from last echo cont BB and ARB Cardiology consult with Dr. Da Silva . on Sildenafil for pulmonary Hypertension 3. COPD (chronic obstructive pulmonary disease), stable Chronic Duoneb prn Dr Gomez consult appreciated 4.Hypothyroidism Chronic cont Levothyroxine 5. DVT prophylaxis Lovenox while in house Discharge Exam - Head Exam Head Exam: ATRAUMATIC, NORMAL INSPECTION, NORMOCEPHALIC - Eye Exam Eye Exam: PERRL Pupil Exam: NORMAL ACCOMODATION - ENT Exam ENT Exam: Mucous Membranes Moist, Normal Exam - Neck Exam Neck exam: Full Rom, Normal Inspection - Respiratory Exam Respiratory Exam: Clear to PA & Lateral, NORMAL BREATHING PATTERN. absent: Rhonchi, Wheezes - Cardiovascular Exam Cardiovascular Exam: REGULAR RHYTHM, RRR, +S1, +S2. absent: JVD - GI/Abdominal Exam GI & Abdominal Exam: Normal Bowel Sounds, Soft. absent: Guarding, Rebound, Tenderness - Rectal Exam Rectal Exam: Deferred - Extremities Exam Extremities exam: normal inspection, pedal pulses present - Neurological Exam Neurological exam: Alert, CN II-XII Intact - Psychiatric Exam Psychiatric exam: Flat Affect - Skin Skin Exam: Dry, Warm Discharge Plan - Follow Up Plan Condition: IMPROVED Disposition: HOME/ ROUTINE Patient education suggested?: Yes Instructions: Syncope (Fainting) Referrals: Filiberto Gomez MD [Staff Provider] - Bernard Da Silva MD [Staff Provider] -
== END 2017-08-12 22:30 | disposition home or self-care (01) ==
LOC: H.ER 11:16 → H.ERHOLD 14:48 → H.ICU/CCU 17:34
PROVIDERS: ADMIT Hospitalist; ATTEND Hospitalist
DX: R55 Syncope and collapse (principal); I11.0 Hypertensive heart disease with heart failure; I50.42 Chronic combined systolic (congestive) and diastolic (congestive) heart failure; I27.20 Pulmonary hypertension, unspecified; J44.9 Chronic obstructive pulmonary disease, unspecified; E03.9 Hypothyroidism, unspecified; Z87.891 Personal history of nicotine dependence; Z95.810 Presence of automatic (implantable) cardiac defibrillator; I42.9 Cardiomyopathy, unspecified; M06.9 Rheumatoid arthritis, unspecified; M54.40 Lumbago with sciatica, unspecified side; M81.0 Age-related osteoporosis without current pathological fracture; E78.00 Pure hypercholesterolemia, unspecified; Z86.73 Personal history of transient ischemic attack (TIA), and cerebral infarction without residual deficits; I25.10 Atherosclerotic heart disease of native coronary artery without angina pectoris; Z95.5 Presence of coronary angioplasty implant and graft; E78.5 Hyperlipidemia, unspecified; F41.9 Anxiety disorder, unspecified; J32.9 Chronic sinusitis, unspecified
CPT/HCPCS: 70450; 70496; 70498; 71045; 80048; 80053; 82803; 84146; 84484; 85025; 85610; 85730; 87081; 93005; 93880; 95816; 96360; 96361; 96372; 99285; G0378; G0480; J1650; J7030; Q9967

== ENCOUNTER 2017-10-02 14:37 | Inpatient (IN) | payer MEDICARE ==
[2017-10-02 14:37] VITALS: BMI 28.1
[2017-10-02] MEDS ORDERED: Iohexol 240 (50 ml) PO STA (14:52)
--- NOTE | 2017-10-02 14:57 | ED PDOC ---
Addendum entered and electronically signed by Elaine Castellon PA-C 18:51: Addendum Addendum: 10/02/17 18:51 As per ED MD, Dr. Boogie, cancel 250 bolus,. Fluids not to be administered at this time Original Note: HPI: Abdomen Chief Complaint (Provider): Abdominal pain History Per: Patient <Elaine Castellon - Last Filed: 10/02/17 18:50> <Servando Boogie - Last Filed: 10/02/17 18:55> Time Seen by Provider: 10/02/17 14:45 Chief Complaint (Nursing): Abdominal Pain Additional Complaint(s): 81 female with a history of cardiomyopathy EF 25-30% , s/p AICD, anxiety, pulmonary hypertension, COPD ( ex smoker ), HTN, Dyslipidemia, Hypothyroidism , lower back pain , sciatica, osteoporosis, RA brought to ER by EMS for abdominal pain. History obtained from patient. Pt reports abdominal pain that started yesterday, diffuse across entire lower abdomen, associated with nausea and 1 episode of vomiting today. Pt also reports constipation x 6 days now. She denies any chest pain , SOB, palpitations, Blurry vision , FIELD, focal weakness. No fever or chills. PMD: Dr Holden Pulmonary: Dr. Gomez Cardiology : Dr. 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 , denies smoking ( quit 1992), denies ETOH or drug abuse., uses walker to walk (Elaine Castellon) Supervising Attending Note - Supervising Attending Note The Documented history was done by the: Physician Order Processor, Attending Physician The documented physical exam was done by the: Physician Order Processor, Attending Physician The documented procedures were done by the: Physician Order Processor, Attending Physician - Attestation: I have personally seen and examined this patient.: Yes I have fully participated in the care of the patient.: Yes I have reviewed all pertinent clinical information: Yes <Servando Boogie - Last Filed: 10/02/17 18:55> Past Medical History Reviewed: Historical Data, Nursing Documentation, Vital Signs - Medical History PMH: Arthritis, Back Problems, Bronchitis, CAD, Cardia Arrhythmia, CHF, COPD, 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), HTN, Hypercholesterolemia, Hyperlipidemia, Hypothyroidism, Osteoporosis, Peripheral Edema, Pneumonia, Rheumatoid Arthritis, TIA Denies: Alzheimer's Disease, Anemia, Anxiety, Asthma, Atrial Fibrillation, Bipolar Disorder, Crohn's Disease, Dementia, Depression, Diverticulitis, Emphysema, Fractures, Gastritis, Gall Bladder Disease, HIV, Kidney Stones, Migraine, Mitral Valve Prolapse, Multiple Sclerosis, Pancreatitis, Paranoia, Parkinson's Disease, Post Traumatic Stress Disorder, Pulmonary Embolism, Chronic Kidney Disease, Schizophrenia, Seizures, Sickle Cell Disease, Sexually Transmitted Disease, Sleep Apnea - Surgical History Surgical History: Appendectomy, Cholecystectomy, Coronary Stent, Pacemaker (AICD ), Tonsillectomy Denies: CABG, Carotid Endarterectomy - Family History Family History: States: Unknown Family Hx - Living Arrangements Living Arrangements: Alone (home health aid) - Social History Current smoker - smoking cessation education provided: No Ex-Smoker (has not smoked in the last 12 months): Yes Alcohol: None Drugs: Denies - Immunization History Hx Tetanus Toxoid Vaccination: No Hx Influenza Vaccination: No Hx Pneumococcal Vaccination: No <Elaine Castellon A - Last Filed: 10/02/17 18:50> <Servando Boogie - Last Filed: 10/02/17 18:55> Vital Signs: Last Vital Signs Temp 99.9 F H 10/02/17 18:19 Pulse 98 H 10/02/17 18:19 Resp 19 10/02/17 18:19 BP 135/72 10/02/17 18:19 Pulse Ox 96 10/02/17 18:25 - Home Medications Home Medications: Ambulatory Orders Medication Instructions Recorded Ascorbic Acid [Vitamin C] 500 mg PO DAILY 04/29/16 Multivit-Min/FA/Lycopen/Lutein 1 tab PO DAILY 04/29/16 [Centrum Silver Tablet] Anastrozole [Arimidex] 1 mg PO DAILY #30 tablet 12/09/16 Aspirin [Ecotrin] 81 mg PO DAILY #30 tabec 12/09/16 Losartan [Cozaar] 25 mg PO DAILY #30 tab 12/09/16 Levothyroxine [Synthroid] 25 mcg PO DAILY@0630 tab 12/19/16 Atorvastatin [Lipitor] 20 mg PO HS 04/15/17 Cholecalciferol [Vitamin D 1000 IU] 1,000 unit PO DAILY 04/15/17 Vitamin E [Vitamin E 400 Units Cap] 400 unit PO DAILY 04/15/17 Memantine [Namenda] 10 mg PO DAILY tab 05/08/17 Docusate [Colace] 200 mg PO DAILY cap 07/02/17 Lactulose [Enulose] 20 gm PO DAILY PRN udc 07/02/17 Potassium Chloride [K-Dur 20 mEq 20 meq PO DAILY #14 tab 07/28/17 ER Tab] Amiodarone [Cordarone] 100 mg PO DAILY 10/02/17 Furosemide [Lasix] 20 mg PO DAILY 10/02/17 Metoprolol Succinate XL [Toprol XL] 25 mg PO DAILY 10/02/17 Ranolazine [Ranexa] 500 mg PO DAILY 10/02/17 Sildenafil [Revatio] 20 mg PO BID 10/02/17 - Allergies Allergies/Adverse Reactions: Allergies Allergy/AdvReac Type Severity Reaction Status Date / Time No Known Allergies Allergy Verified 10/02/17 14:39 Review of Systems ROS Statement: Except As Marked, All Systems Reviewed And Found Negative Gastrointestinal: Positive for: Nausea, Vomiting, Abdominal Pain, Constipation <Elaine Castellon A - Last Filed: 10/02/17 18:50> Physical Exam - Reviewed Nursing Documentation Reviewed: Yes Vital Signs Reviewed: Yes - Physical Exam Appears: Positive for: Non-toxic, No Acute Distress, Uncomfortable Head Exam: Positive for: ATRAUMATIC, NORMAL INSPECTION, NORMOCEPHALIC Skin: Positive for: Normal Color, Warm, DRY Eye Exam: Positive for: EOMI, Normal appearance, PERRL ENT: Positive for: Normal ENT Inspection Neck: Positive for: Normal, Painless ROM Cardiovascular/Chest: Positive for: Regular Rate, Rhythm Respiratory: Positive for: CNT, Normal Breath Sounds Gastrointestinal/Abdominal: Positive for: Bowel Sounds (hypoactive), Soft, Tenderness (diffuse ). Negative for: Distended, Guarding Back: Positive for: Normal Inspection Extremity: Positive for: Normal ROM Neurologic/Psych: Positive for: Alert, Oriented <Elaine Castellon - Last Filed: 10/02/17 18:50> - Laboratory Results Result Diagrams: 10/02/17 15:35 10/02/17 15:35 - ECG O2 Sat by Pulse Oximetry: 96 <Elaine Castellon - Last Filed: 10/02/17 18:50> - Laboratory Results Result Diagrams: 10/02/17 15:35 10/02/17 15:35 <ChuyitaServando Joanne - Last Filed: 10/02/17 18:55> Medical Decision Making <Elaine Castellon - Last Filed: 10/02/17 18:50> <LeenarovertoServando A - Last Filed: 10/02/17 18:55> Medical Decision Making: Upon arrival, pt appears uncomfortable IV access established and treatment initiated with Moprhine and Zofran. Pt on ergonomics technician, vitals stable. P: 98 BP: 120/76 POX: 96% Pt afebrile upon arrival. 15:15- RN called signwriter, Pt began to feel chest tightness and SOB. Expiratory wheezing noted. Duo neb x 2 initiated as well as solumedrol. After second neb treat Pt reports feeling greatly improved, Pt resting comfortably. POX: 98% on RA Lab contacted RN, Pt with 10% bands. WBC WNL. BUN 28 Cr 1.6 both elevated from previous visits Pro BNP 5430 CXR: NL, as read by PA-C On second re-eval, Pt reports pain and nausea improved. ABG obtained, Lactate 4. Case disucssed with ED MD, Dr. Boogie, Code sepsis called due to elevated lactate, HR: 97, Bands:10% and suspected infection. CT and UA specimen pending at this time. Fluid bolus not initiated due to cardiomyopathy, CHF. 250 mg bolus NS administered. Hospitalist contacted and made aware. ID consult obtained with Dr. West, who agreed with IV Vanco and Zosyn at this time. 1800: Dr. Bjawa and Dr. Rodarte at bedside. Pt to be admitted to telemetry unit. (Elaine Castellon) Disposition - Patient ED Disposition Is Patient to be Admitted: Yes - Disposition Disposition Time: 18:24 - Pt Status Changed To: Hospital Disposition Of: Inpatient - Admit Certification Admit to Inpatient:: After my assessment, the patient will require hospitalization for at least two midnights. This is because of the severity of symptoms shown, intensity of services needed, and/or the medical risk in this patient being treated as an outpatient. - POA Present On Arrival: None <Elaine Castellon - Last Filed: 10/02/17 18:50> <Servando Boogie - Last Filed: 10/02/17 18:55> - Clinical Impression Clinical Impression: Sepsis, Abdominal pain - Disposition Condition: STABLE
[2017-10-02] MEDS ORDERED: Albuterol-Ipratrop 3 mg / 0.5 (3 ml) UD INH STA ×3 (15:14→15:56)
[2017-10-02] MEDS ORDERED: Albuterol-Ipratrop 3 mg / 0.5 (3 ml) UD ONE (15:38)
[2017-10-02 15:47] LABS: BASO % 0.3 % (0.0-2.0); EOS % 0.1 % (0.0-4.0); HEMOGLOBIN 12.4 g/dL (12.0-16.0); LYMPH # 0.4 K/uL (1.0-4.3); LYMPH % 5.1 % (20.0-40.0); MEAN CELL VOLUME 99.1 fl (81.0-99.0); MEAN CORPUSCULAR HEMOGLOBIN 32.3 pg (27.0-31.0); MEAN CORPUSCULAR HGB CONC 32.5 g/dL (33.0-37.0); MEAN PLATELET VOLUME 9.1 fl (7.2-11.7); MONO % 0.7 % (0.0-10.0); NEUT % 93.8 % (50.0-75.0); NRBC % 0.2 % (0.0-0.0); PLATELET COUNT 252 K/uL (130-400); RBC 3.84 Mil/uL (3.80-5.20); RED CELL DISTRIBUTION WIDTH 14.7 % (11.5-14.5); WHITE BLOOD COUNT 7.5 K/uL (4.8-10.8)
[2017-10-02 16:06] LABS: ALB/GLOB RATIO 1.4 (1.0-2.1); ALBUMIN 4.4 g/dL (3.5-5.0); CALCIUM 9.7 mg/dL (8.4-10.2)
[2017-10-02 16:18] LABS: TROPONIN I 0.019 ng/mL (0.00-0.120)
[2017-10-02 16:34] LABS: BANDS 10 % (0-2); LYMPHOCYTE 7 % (20-50); MONOCYTE 2 % (0-10); NEUTROPHIL 81 % (42-75); PLATELET ESTIMATE NORMAL (NORMAL); TOTAL CELLS COUNTED 100
[2017-10-02 16:35] LABS: ANISOCYTOSIS SLIGHT; HYPOCHROMIC SLIGHT; LARGE PLATELETS PRESENT
--- NOTE | 2017-10-02 16:39 | RAD ---
Date of service: 10/02/2017 PROCEDURE: CHEST RADIOGRAPH, 1 VIEW HISTORY: sob COMPARISON: 08/11/2017 FINDINGS: LUNGS: Clear. PLEURA: No pneumothorax or pleural fluid seen. CARDIOVASCULAR: Normal heart size. AICD noted. No congestive change. OSSEOUS STRUCTURES: No significant abnormalities. VISUALIZED UPPER ABDOMEN: Normal. OTHER FINDINGS: None. IMPRESSION: No active disease.
[2017-10-02 17:15] LABS: ABG ALLEN TEST YES; ARTERIAL BLOOD GAS HCO3 22.8 mmol/L (21-28); ARTERIAL BLOOD GAS O2 SAT 92.1 % (95-98); ARTERIAL BLOOD GAS PCO2 34 mm/Hg (35-45); ARTERIAL BLOOD GAS PH 7.41 (7.35-7.45); ARTERIAL BLOOD GAS PO2 53 mm/Hg (80-100); ARTERIAL BLOOD GAS TCO2 22.6 mmol/L (22-28)
[2017-10-02] MEDS ORDERED: Piperacillin/Tazobact 3.375 GM in Sodium Chloride 0.9% 100 ML IV STA (17:40)
[2017-10-02] MEDS ORDERED: Sodium Chloride 0.9% 250 ML IV STA (17:55)
[2017-10-02] MEDS ORDERED: Piperacillin/Tazobact 3.375 gm Inj IVPB ONE (18:23)
[2017-10-02] MEDS ORDERED: Vancomycin 1 g Inj ONE (18:23)
--- NOTE | 2017-10-02 18:36 | CP.PCM.CON ---
History of Present Illness - History of Present Illness History of Present Illness: I saw the pt in ER for ICU evaluation as pt has high lactic acid 4.0 Pt is awake , alert, oriented and is comfortable, BP is 135/68, she is afebrile and at the moment not requiring any supplement oxygen and has no SOB. She came to ER c/o abdominal pain, dull for few days, says she has constipation and has been taking laxatives with no improvement. Has h/o CHF but lungs are clear by CXR and on exam. H/o COPD, HTN,chronic back pain, CAD . Review of Systems - Constitutional Constitutional: As Per HPI - EENT Eyes: As Per HPI Nose/Mouth/Throat: As Per HPI - Cardiovascular Cardiovascular: As Per HPI - Respiratory Respiratory: As Per HPI Past Patient History - Infectious Disease Hx of Infectious Diseases: None - Tetanus Immunizations Tetanus Immunization: Unknown - Past Medical History & Family History Past Medical History?: Yes - Past Social History Alcohol: None Drugs: Denies - CARDIAC Hx Atrial Fibrillation: No Hx Cardia Arrhythmia: Yes Hx Congestive Heart Failure: Yes Hx Hypercholesterolemia: Yes Hx Hypertension: Yes Hx Mitral Valve Prolapse: No Hx Pacemaker: Yes (AICD) Hx Peripheral Edema: Yes - PULMONARY Hx Asthma: No Hx Bronchitis: Yes Hx Chronic Obstructive Pulmonary Disease (COPD): Yes Hx Emphysema: No Hx Pneumonia: Yes Hx Pulmonary Embolism: No Hx Sleep Apnea: No - NEUROLOGICAL Hx Alzheimer's Disease: No Hx Dementia: No Hx Migraine: No Hx Multiple Sclerosis: No Hx Parkinson's Disease: No Hx Seizures: No Hx Transient Ischemic Attacks (TIA): Yes - HEENT Hx HEENT Problems: Yes Hx Blind: No Hx Cataracts: Yes Hx Deafness: No Hx Difficulty Chewing: No Hx Epistaxis: No Hx Glaucoma: No Hx Macular Degeneration: No Other/Comment: chronic mastoiditis, right. - RENAL Hx Chronic Kidney Disease: No Hx Kidney Stones: No - ENDOCRINE/METABOLIC Hx Hypothyroidism: Yes - HEMATOLOGICAL/ONCOLOGICAL Hx Anemia: No Hx Human Immunodeficiency Virus (HIV): No Hx Sickle Cell Disease: No - INTEGUMENTARY Hx Dermatological Problems: No Hx Basil Cell: No Hx Sun: No Hx Cellulitis: No Hx Eczema: No Hx Melanoma: No Hx Psoriasis: No Hx Squamous Cell: No - MUSCULOSKELETAL/RHEUMATOLOGICAL Hx Arthritis: Yes Hx Fractures: No Hx Osteoporosis: Yes Hx Rheumatoid Arthritis: Yes - GASTROINTESTINAL Hx Crohn's Disease: No Hx Diverticulitis: No Hx Gall Bladder Disease: No Hx Gastritis: No Hx Pancreatitis: No - GENITOURINARY/GYNECOLOGICAL Hx Sexually Transmitted Disorders: No - PSYCHIATRIC Hx Anxiety: No Hx Bipolar Disorder: No Hx Depression: No Hx Paranoia: No Hx Post Traumatic Stress Disorder: No Hx Schizophrenia: No - SURGICAL HISTORY Hx Appendectomy: Yes Hx Carotid Endarterectomy: No Hx Cholecystectomy: Yes Hx Coronary Artery Bypass Graft: No Hx Coronary Stent: Yes Hx Tonsillectomy: Yes - ANESTHESIA Hx Anesthesia: Yes Hx Anesthesia Reactions: No Hx Malignant Hyperthermia: No Meds Allergies/Adverse Reactions: Allergies Allergy/AdvReac Type Severity Reaction Status Date / Time No Known Allergies Allergy Verified 10/02/17 14:39 - Medications Medications: Current Medications Amiodarone HCl (Cordarone) 100 mg PO DAILY [facility] Anastrozole (Arimidex 1 Mg Tab) 1 mg PO DAILY [facility] Aspirin (Ecotrin) 81 mg PO DAILY [facility] Atorvastatin Calcium (Lipitor) 20 mg PO HS [facility] Cholecalciferol (Vitamin D) intlu PO DAILY [facility] Docusate Sodium (Colace) 200 mg PO DAILY [facility] Heparin Sodium (Porcine) (Heparin) 5,000 units SC Q12 YUVAL PRN Reason: Protocol Home Med (Ascorbic Acid [Vitamin C]) 500 mg PO DAILY [facility] Home Med (Multivit-Min/Fa/Lycopen/Lutein [Centrum Silver Tablet]) 1 tab PO DAILY [facility] Vancomycin HCl 1 gm/ Sodium (Chloride) 250 mls @ 166.667 mls/hr IV STAT STA PRN Reason: Protocol Stop: 10/02/17 19:09 Last Admin: 10/02/17 18:26 Dose: 166.667 mls/hr Piperacillin Sod/Tazobactam (Sod 3.375 gm/ Sodium Chloride) 100 mls @ 100 mls/ hr IV STAT STA PRN Reason: Protocol Stop: 10/02/17 18:39 Sodium Chloride (Sodium Chloride 0.9%) 250 mls @ 250 mls/hr IV .Q1H STA Stop: 10/02/17 18:54 Lactulose (Enulose) 20 gm PO DAILY PRN PRN Reason: Constipation Levothyroxine Sodium (Synthroid) 25 mcg PO DAILY@0630 [facility] Losartan Potassium (Cozaar) 25 mg PO DAILY [facility] Memantine (Namenda) 10 mg PO DAILY [facility] Metoprolol Succinate (Toprol Xl) 25 mg PO DAILY [facility] Potassium Chloride (K-Dur 20 Meq Er Tab) 20 meq PO DAILY [facility] Ranolazine (Ranexa) 500 mg PO DAILY [facility] Vitamin E (Vitamin E 400 Units Cap) intlu PO DAILY [facility] Physical Exam - Head Exam Head Exam: ATRAUMATIC - Eye Exam Pupil Exam: PERRL - Respiratory Exam Respiratory Exam: Wheezes, NORMAL BREATHING PATTERN - GI/Abdominal Exam GI & Abdominal Exam: Normal Bowel Sounds, Soft Results - Vital Signs Recent Vital Signs: Last Vital Signs Temp 99.9 F H 10/02/17 18:19 Pulse 98 H 10/02/17 18:19 Resp 19 10/02/17 18:19 BP 135/72 10/02/17 18:19 Pulse Ox 96 10/02/17 18:25 - Labs Result Diagrams: 10/02/17 15:35 10/02/17 15:35 Labs: Laboratory Results - last 24 hr 10/02/17 10/02/17 10/02/17 15:35 15:35 16:48 WBC 7.5 RBC 3.84 Hgb 12.4 Hct 38.1 MCV 99.1 H MCH 32.3 H MCHC 32.5 L RDW 14.7 H Plt Count 252 MPV 9.1 Neut % (Auto) 93.8 H Lymph % (Auto) 5.1 L [place] % (Auto) 0.7 Eos % (Auto) 0.1 Baso % (Auto) 0.3 Neut # (Auto) 7.0 Lymph # (Auto) 0.4 L [place] # (Auto) 0.0 Eos # (Auto) 0.0 Baso # (Auto) 0.0 Neutrophils % (Manual) 81 H Band Neutrophils % 10 H Lymphocytes % (Manual) 7 L Monocytes % (Manual) 2 Platelet Estimate Normal Large Platelets Present Hypochromasia (manual) Slight Anisocytosis (manual) Slight pCO2 34 L pO2 53 L HCO3 22.8 ABG pH 7.41 ABG Total CO2 22.6 ABG O2 Saturation 92.1 L ABG Base Excess -2.4 L Baljeet Test Yes ABG Potassium 3.9 A-a O2 Difference 133.0 Glucose 135 H Lactate 4.0 H* FiO2 32.0 Sodium 142 139.0 Potassium 4.9 Chloride 104 107.0 Carbon Dioxide 21 L Anion Gap 22 H BUN 28 H Creatinine 1.6 H Est GFR ( Amer) 38 Est GFR (Non-Af Amer) 31 Random Glucose 151 H Calcium 9.7 Total Bilirubin 1.0 AST 31 ALT 24 Alkaline Phosphatase 58 Troponin I 0.0190 NT-Pro-B Natriuret Pep 5430 H Total Protein 7.7 Albumin 4.4 Globulin 3.3 Albumin/Globulin Ratio 1.4 Amylase 92 Lipase 68 Arterial Blood Potassium 3.9 Assessment & Plan - Assessment and Plan (Free Text) Assessment: Pt with abdominal pain , no fever, has 10% bands but WBC 7.5 and no anemia, has lactic acit 4. Sepsis needs to be ruled out and needs septic work up and antibiotics. She is hemodynamically stable and does not needs ICU monitoring, will be admitted to tele. D/W Hospitalist .If her condition changed, can be re- evaluated but its unlikely at this point as she is stable. CT abdomen done, report is pending. If CT abdomen showed any significant finding, requiring ICU monitoring, will transfer to ICU.
[2017-10-02] MEDS ORDERED: Albuterol-Ipratrop 3 mg / 0.5 (3 ml) UD INH PRN (18:39)
[2017-10-02 18:49] LABS: SQUAMOUS EPITHIAL 1 /hpf (0-5); URINE AMORPHOUS SEDIMENT MODERATE /ul (<OCC); URINE BACTERIA OCC (<OCC); URINE BILIRUBIN NEGATIVE (NEGATIVE); URINE BLOOD LARGE (NEGATIVE); URINE CLARITY CLOUDY (Clear); URINE COLOR AMBER (YELLOW); URINE GLUCOSE (UA) NEG (Normal); URINE LEUKOCYTE ESTERASE MOD Leu/uL (Negative); URINE PROTEIN 30 mg/dL (NEGATIVE); URINE UROBILINOGEN 0.2-1.0 mg/dL (0.2-1.0); WBC CLUMPS FEW /hpf
--- NOTE | 2017-10-02 19:01 | CP.PCM.HP ---
History of Present Illness - History of Present Illness History of Present Illness: This is a 81 female with a history of cardiomyopathy EF 25-30% , s/p AICD, anxiety, pulmonary hypertension, COPD ( ex smoker ), HTN, Dyslipidemia, Hypothyroidism ,lower back pain , sciatica, osteoporosis, RA, CKD stage III, presenting to the ED with the complaint of abdominal pain beginning this afternoon. The patient states that the pain is bilateral and lower, sharp, associated with nausea and 1 episode of nonbilious, nonbloody emesis today. The patient alos reports 6 days of constipation. In the ED, the patient was found to have 10% bands, Lactate of 4.0, elevated BNP of 5430, BUN of 28, and Cr of 1.6. She met the criteria for severe sepsis as a result and code sepsis was called. However the patient is hemodynamically stable at this time and is maintaining a good blood pressure. The patient was seen by critical care physician Dr. Rodarte and feels the patient is stable for telemetry admission. CT abd/pelvis was performed and final report pending. The patient was given IV fluids, Vanc/Zosyn while in ED. Patient denies chest pain, fevers, chills, nausea, vomiting, diarrhea, headache. All of the patient's questions were answered at the bedside. PMD: Dr Holden Pulmonary: Dr. Gomez Cardiology : Dr. 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 Past Patient History - Infectious Disease Hx of Infectious Diseases: None - Tetanus Immunizations Tetanus Immunization: Unknown - Past Medical History & Family History Past Medical History?: Yes - Past Social History Smoking Status: Former Smoker Alcohol: None Drugs: Denies - CARDIAC Hx Atrial Fibrillation: No Hx Cardia Arrhythmia: Yes Hx Congestive Heart Failure: Yes Hx Hypercholesterolemia: Yes Hx Hypertension: Yes Hx Mitral Valve Prolapse: No Hx Pacemaker: Yes (AICD) Hx Peripheral Edema: Yes - PULMONARY Hx Asthma: No Hx Bronchitis: Yes Hx Chronic Obstructive Pulmonary Disease (COPD): Yes Hx Emphysema: No Hx Pneumonia: Yes Hx Pulmonary Embolism: No Hx Sleep Apnea: No - NEUROLOGICAL Hx Alzheimer's Disease: No Hx Dementia: No Hx Migraine: No Hx Multiple Sclerosis: No Hx Parkinson's Disease: No Hx Seizures: No Hx Transient Ischemic Attacks (TIA): Yes - HEENT Hx HEENT Problems: Yes Hx Blind: No Hx Cataracts: Yes Hx Deafness: No Hx Difficulty Chewing: No Hx Epistaxis: No Hx Glaucoma: No Hx Macular Degeneration: No Other/Comment: chronic mastoiditis, right. - RENAL Hx Chronic Kidney Disease: No Hx Kidney Stones: No - ENDOCRINE/METABOLIC Hx Hypothyroidism: Yes - HEMATOLOGICAL/ONCOLOGICAL Hx Anemia: No Hx Human Immunodeficiency Virus (HIV): No Hx Sickle Cell Disease: No - INTEGUMENTARY Hx Dermatological Problems: No Hx Basil Cell: No Hx Sun: No Hx Cellulitis: No Hx Eczema: No Hx Melanoma: No Hx Psoriasis: No Hx Squamous Cell: No - MUSCULOSKELETAL/RHEUMATOLOGICAL Hx Arthritis: Yes Hx Fractures: No Hx Osteoporosis: Yes Hx Rheumatoid Arthritis: Yes - GASTROINTESTINAL Hx Crohn's Disease: No Hx Diverticulitis: No Hx Gall Bladder Disease: No Hx Gastritis: No Hx Pancreatitis: No - GENITOURINARY/GYNECOLOGICAL Hx Sexually Transmitted Disorders: No - PSYCHIATRIC Hx Anxiety: No Hx Bipolar Disorder: No Hx Depression: No Hx Paranoia: No Hx Post Traumatic Stress Disorder: No Hx Schizophrenia: No - SURGICAL HISTORY Hx Appendectomy: Yes Hx Carotid Endarterectomy: No Hx Cholecystectomy: Yes Hx Coronary Artery Bypass Graft: No Hx Coronary Stent: Yes Hx Tonsillectomy: Yes - ANESTHESIA Hx Anesthesia: Yes Hx Anesthesia Reactions: No Hx Malignant Hyperthermia: No Meds Allergies/Adverse Reactions: Allergies Allergy/AdvReac Type Severity Reaction Status Date / Time No Known Allergies Allergy Verified 10/02/17 14:39 Physical Exam - Additional Findings Additional findings: Physical exam: Constitutional- cooperative, awake, alert. Appears uncomfortable Head- NCAT, PERRL Eye- PERRL, EOMI ENT- normal exam, MMM. Neck- normal inspection, supple, no JVD Respiratory- CTAB, no wheezes rales rhonchi Cardiovascular- RRR, +S1, +S2 no MRG GI/Abdominal- normal bowel sounds, soft, no mass, no hsm Skin- warm, dry Extremities Exam- normal capillary refill, normal inspection Neurological Exam- alert, awake, oriented Psych- normal mood, normal affect Results - Vital Signs Recent Vital Signs: Last Vital Signs Temp 99.9 F H 10/02/17 18:19 Pulse 98 H 10/02/17 18:19 Resp 19 10/02/17 18:19 BP 135/72 10/02/17 18:19 Pulse Ox 96 10/02/17 18:25 - Labs Result Diagrams: 10/02/17 15:35 10/02/17 15:35 Labs: Laboratory Results - last 24 hr 10/02/17 10/02/17 10/02/17 15:35 15:35 16:48 WBC 7.5 RBC 3.84 Hgb 12.4 Hct 38.1 MCV 99.1 H MCH 32.3 H MCHC 32.5 L RDW 14.7 H Plt Count 252 MPV 9.1 Neut % (Auto) 93.8 H Lymph % (Auto) 5.1 L Charlton % (Auto) 0.7 Eos % (Auto) 0.1 Baso % (Auto) 0.3 Neut # (Auto) 7.0 Lymph # (Auto) 0.4 L Charlton # (Auto) 0.0 Eos # (Auto) 0.0 Baso # (Auto) 0.0 Neutrophils % (Manual) 81 H Band Neutrophils % 10 H Lymphocytes % (Manual) 7 L Monocytes % (Manual) 2 Platelet Estimate Normal Large Platelets Present Hypochromasia (manual) Slight Anisocytosis (manual) Slight pCO2 34 L pO2 53 L HCO3 22.8 ABG pH 7.41 ABG Total CO2 22.6 ABG O2 Saturation 92.1 L ABG Base Excess -2.4 L Baljeet Test Yes ABG Potassium 3.9 A-a O2 Difference 133.0 Glucose 135 H Lactate 4.0 H* FiO2 32.0 Sodium 142 139.0 Potassium 4.9 Chloride 104 107.0 Carbon Dioxide 21 L Anion Gap 22 H BUN 28 H Creatinine 1.6 H Est GFR ( Amer) 38 Est GFR (Non-Af Amer) 31 Random Glucose 151 H Calcium 9.7 Total Bilirubin 1.0 AST 31 ALT 24 Alkaline Phosphatase 58 Troponin I 0.0190 NT-Pro-B Natriuret Pep 5430 H Total Protein 7.7 Albumin 4.4 Globulin 3.3 Albumin/Globulin Ratio 1.4 Amylase 92 Lipase 68 Arterial Blood Potassium 3.9 Urine Color Urine Clarity Urine pH Ur Specific [place] Urine Protein Urine Glucose (UA) Urine Ketones Urine Blood Urine Nitrate Urine Bilirubin Urine Urobilinogen Ur Leukocyte Esterase Urine RBC (Auto) Urine WBC Clumps (Auto) Urine Microscopic WBC Ur Squamous Epith Cells Ur Transition Epith Cell Amorphous Sediment Urine Bacteria 10/02/17 18:20 WBC RBC Hgb Hct MCV MCH MCHC RDW Plt Count MPV Neut % (Auto) Lymph % (Auto) Charlton % (Auto) Eos % (Auto) Baso % (Auto) Neut # (Auto) Lymph # (Auto) Charlton # (Auto) Eos # (Auto) Baso # (Auto) Neutrophils % (Manual) Band Neutrophils % Lymphocytes % (Manual) Monocytes % (Manual) Platelet Estimate Large Platelets Hypochromasia (manual) Anisocytosis (manual) pCO2 pO2 HCO3 ABG pH ABG Total CO2 ABG O2 Saturation ABG Base Excess Baljeet Test ABG Potassium A-a O2 Difference Glucose Lactate FiO2 Sodium Potassium Chloride Carbon Dioxide Anion Gap BUN Creatinine Est GFR ( Amer) Est GFR (Non-Af Amer) Random Glucose Calcium Total Bilirubin AST ALT Alkaline Phosphatase Troponin I NT-Pro-B Natriuret Pep Total Protein Albumin Globulin Albumin/Globulin Ratio Amylase Lipase Arterial Blood Potassium Urine Color Reny Urine Clarity Cloudy Urine pH 5.0 Ur Specific [place] 1.015 Urine Protein 30 Urine Glucose (UA) Neg Urine Ketones Negative Urine Blood Large Urine Nitrate Negative Urine Bilirubin Negative Urine Urobilinogen 0.2-1.0 Ur Leukocyte Esterase Mod Urine RBC (Auto) 1100 H Urine WBC Clumps (Auto) Few H Urine Microscopic WBC 53 H Ur Squamous Epith Cells 1 Ur Transition Epith Cell 1 Amorphous Sediment Moderate H Urine Bacteria Occ H Assessment & Plan - Assessment and Plan (Free Text) Plan: This is a 81 female with a history of cardiomyopathy EF 25-30% , s/p AICD, anxiety, pulmonary hypertension, COPD ( ex smoker ), HTN, Dyslipidemia, Hypothyroidism ,lower back pain , sciatica, osteoporosis, RA, CKD stage III, presenting to the ED with the complaint of abdominal pain beginning this afternoon. The patient states that the pain is bilateral and lower, sharp, associated with nausea and 1 episode of nonbilious, nonbloody emesis today. The patient alos reports 6 days of constipation. In the ED, the patient was found to have 10% bands, Lactate of 4.0, elevated BNP of 5430, BUN of 28, and Cr of 1.6. She met the criteria for severe sepsis as a result and code sepsis was called. However the patient is hemodynamically stable at this time and is maintaining a good blood pressure. The patient was seen by critical care physician Dr. Rodarte and feels the patient is stable for telemetry admission. CT abd/pelvis was performed and final report pending. The patient was given IV fluids, Vanc/Zosyn while in ED. Patient denies chest pain, fevers, chills, nausea, vomiting, diarrhea, headache. All of the patient's questions were answered at the bedside. 1) Severe sepsis, etiology unclear at this time, r/o abdominal infection vs UTI , no evidence of respiratory infection - Telemetry admission - Repeat lactic acid level at 2200 - Consultation with Dr. Rodarte appreciated - Consultation with Dr. West- rec continuing Vanc and Zosyn for now (will order renal dosing due to pts chronic kidney disease - IV normal saline running at 250 cc/hour for now, caution with history of cardiomyopathy and impaired systolic function - CXR clear - F/u Blood, urine cultures - F/u U/A - CT abd/pelvis pending - NPO for now, will advance diet depending on CT read 2) Systolic and diastolic CHF,chronic , compensated Pulmonary HTN, severe - EF 25% - Consultation with Dr. Da Silva - Caution with hydration - Hold Lasix for now due to sepsis - patient normovolemic at this time - monitor - ASA - Restart Sildenafil if BP holds - Amiodarone 3) COPD - Chronic - Duoneb PRN - Dr. Gomez consult 4) Hypothyroidism Chronic Continue Levothyroxine 5) DVT prophylaxis - Heparin
[2017-10-02] MEDS ORDERED: Sodium Chloride 0.9% 500 ML IV ONE (19:24)
[2017-10-02 20:08] LABS: VENOUS BLOOD GAS BASE EXCESS -1.3 mmol/L (0.0-2.0); VENOUS BLOOD GAS PCO2 35 mmHg (40-60); VENOUS BLOOD GAS PO2 56 mm/Hg (30-55); VENOUS BLOOD PH 7.42 (7.32-7.43)
[2017-10-03] MEDS: Lactated Ringer's 500 ML IV SCH ×2 (00:12→05:30)
[2017-10-03] MEDS ORDERED: Albuterol-Ipratrop 3 mg / 0.5 (3 ml) UD INH STA (00:53)
[2017-10-03] MEDS ORDERED: Lactated Ringer's 500 ML IV SCH (05:45)
[2017-10-03] MEDS: Levothyroxine 25 MCG TAB PO SCH (06:02)
[2017-10-03 06:58] LABS: BASO # 0.2 K/uL (0.0-0.2); BASO % 0.5 % (0.0-2.0); HEMOGLOBIN 9.2 g/dL (12.0-16.0); LYMPH # 0.2 K/uL (1.0-4.3); LYMPH % 0.5 % (20.0-40.0); MEAN CELL VOLUME 98.6 fl (81.0-99.0); MEAN CORPUSCULAR HEMOGLOBIN 31.4 pg (27.0-31.0); MEAN CORPUSCULAR HGB CONC 31.9 g/dL (33.0-37.0); MEAN PLATELET VOLUME 9.5 fl (7.2-11.7); MONO # 1.6 K/uL (0.0-0.8); MONO % 4.5 % (0.0-10.0); NEUT # 33.7 K/uL (1.8-7.0); NEUT % 94.5 % (50.0-75.0); NRBC % 0.1 % (0.0-0.0); PLATELET COUNT 146 K/uL (130-400); RBC 2.92 Mil/uL (3.80-5.20); RED CELL DISTRIBUTION WIDTH 14.5 % (11.5-14.5); WHITE BLOOD COUNT 35.7 K/uL (4.8-10.8)
[2017-10-03 07:17] LABS: ALB/GLOB RATIO 1.2 (1.0-2.1); ALBUMIN 3.1 g/dL (3.5-5.0); CALCIUM 8.1 mg/dL (8.4-10.2)
[2017-10-03] MEDS: Metoprolol Succinate 25 mg XL Tab PO SCH (08:37)
--- NOTE | 2017-10-03 08:52 | CT ---
Date of service: 10/02/2017 PROCEDURE: CT Abdomen and Pelvis without intravenous contrast HISTORY: r/o obstruction COMPARISON: None. TECHNIQUE: Without contrast.. Contrast dose: 0 Radiation dose: Total exam DLP = 643.95 mGy-cm. This CT exam was performed using one or more of the following dose reduction techniques: Automated exposure control, adjustment of the mA and/or kV according to patient size, and/or use of iterative reconstruction technique. FINDINGS: LOWER THORAX: Left lower lobe infiltrate. Possible pneumonia. Follow-up advised. Minimal dependent pleural thickening at both lung bases. Very small hiatal hernia. AICD noted. LIVER: Normal size, contour and attenuation. No mass. Punctate calcification in left lobe consistent with calcified granuloma. No biliary dilatation. GALLBLADDER AND BILE DUCTS: Unremarkable. PANCREAS: Unremarkable. No gross lesion or ductal dilatation. SPLEEN: Unremarkable. ADRENALS: Mild bilateral adrenal hypertrophy, nonspecific. KIDNEYS AND URETERS: Minimal left hydronephrosis hydroureter. No obstructing calculus identified. Consider the possibility of recently passed urinary calculus. No renal calculus. Bilateral renal vascular calcifications are noted. Two right lower pole renal cortical cysts, 1.3 and 1.5 cm diameter, respectively. No left renal mass. VASCULATURE: Unremarkable. No aortic aneurysm. BOWEL: Small hiatal hernia. No bowel obstruction. Diverticulosis of the descending and sigmoid colon without evidence of diverticulitis. APPENDIX: Not identified. No secondary findings to suggest appendicitis. PERITONEUM: Unremarkable. No free fluid. No free air. LYMPH NODES: Unremarkable. No enlarged lymph nodes. BLADDER: Suboptimally distended. Grossly unremarkable. REPRODUCTIVE: Normal postmenopausal uterus. BONES: No acute fracture. OTHER FINDINGS: None. IMPRESSION: Mild left hydroureteronephrosis without evidence of obstructing calculus. Consider the possibility of a recently passed urinary calculus. Left lower lobe infiltrate. Rule out pneumonia. Follow-up advised. Additional minor findings as above. The preliminary findings for this examination were reported by [facility] at 7:04 p.m. on 10/02/2017. There is concurrence of this report with the preliminary findings.
[2017-10-03] MEDS: Cholecalciferol 1,000 INTLU TAB PO SCH (08:54)
[2017-10-03] MEDS: Ranolazine 500 mg Extended Release Tablets PO SCH (08:55)
[2017-10-03] MEDS: Multivitamin With Minerals Tab PO SCH (08:55)
[2017-10-03] MEDS: Potassium Chloride 20 mEq ER Tab PO SCH (08:56)
[2017-10-03 08:59] LABS: BANDS 11 % (0-2); MONOCYTE 5 % (0-10); NEUTROPHIL 84 % (42-75); PLATELET ESTIMATE NORMAL (NORMAL); TOTAL CELLS COUNTED 100
[2017-10-03 09:00] LABS: GIANT PLATELETS PRESENT; HYPOCHROMIC SLIGHT; LARGE PLATELETS PRESENT; OVALOCYTES SLIGHT; SCHISTOCYTES SLIGHT; TOXIC GRANULATION PRESENT
[2017-10-03 09:01] LABS: LYMPHOCYTE 0 % (20-50)
[2017-10-03] MEDS ORDERED: Albuterol-Ipratrop 3 mg / 0.5 (3 ml) UD INH PRN (09:12)
[2017-10-03] MEDS ORDERED: Sodium Chloride 3% for Inhalation 4 ML VIAL.NEB IH PRN (09:13)
--- NOTE | 2017-10-03 11:02 | CP.PCM.PN ---
Subjective - Date & Time of Evaluation Date of Evaluation: 10/03/17 Time of Evaluation: 10:30 - Subjective Subjective: Patient was seen and examined this morning at bedside. She is more alert and awake this morning and less toxic appearing. However she is complaining of some shortness of breath and wheezing. BP stabilized overnight. Objective - Vital Signs/Intake and Output Vital Signs (last 24 hours): Temp Pulse Resp BP Pulse Ox 98.6 F 85 20 103/61 99 10/03/17 08:00 10/03/17 09:01 10/03/17 08:00 10/03/17 09:01 10/03/17 08:00 - Medications Medications: Current Medications Acetaminophen (Tylenol 325mg Tab) 650 mg PO Q6 PRN PRN Reason: Fever >100.4 F Last Admin: 10/03/17 00:07 Dose: 650 mg Albuterol/Ipratropium (Duoneb 3 Mg/0.5 Mg (3 Ml) Ud) 3 ml INH RQ4 YUVAL Albuterol/Ipratropium (Duoneb 3 Mg/0.5 Mg (3 Ml) Ud) 3 ml INH RQ2 PRN PRN Reason: Shortness of Breath Amiodarone HCl (Cordarone) 100 mg PO DAILY [facility] Last Admin: 10/03/17 09:01 Dose: 100 mg Anastrozole (Arimidex 1 Mg Tab) 1 mg PO DAILY [facility] Last Admin: 10/03/17 08:49 Dose: 1 mg Ascorbic Acid (Vitamin C 500 Mg Tab) 500 mg PO DAILY [facility] Last Admin: 10/03/17 08:54 Dose: 500 mg Aspirin (Ecotrin) 81 mg PO DAILY [facility] Last Admin: 10/03/17 08:51 Dose: 81 mg Atorvastatin Calcium (Lipitor) 20 mg PO HS [facility] Last Admin: 10/02/17 23:08 Dose: Not Given Cholecalciferol (Vitamin D) 1,000 intlu PO DAILY [facility] Last Admin: 10/03/17 08:54 Dose: 1,000 intlu Docusate Sodium (Colace) 200 mg PO DAILY [facility] Last Admin: 10/03/17 08:49 Dose: 200 mg Heparin Sodium (Porcine) (Heparin) 5,000 units SC Q12 YUVAL PRN Reason: Protocol Last Admin: 10/02/17 23:01 Dose: 5,000 units Vancomycin HCl 1 gm/ Sodium (Chloride) 250 mls @ 250 mls/hr IVPB Q24H YUVAL PRN Reason: Protocol Last Admin: 10/03/17 08:47 Dose: 250 mls/hr Piperacillin Sod/Tazobactam (Sod 2.25 gm/ Sodium Chloride) 100 mls @ 100 mls/ hr IVPB Q6 YUVAL PRN Reason: Protocol Last Admin: 10/03/17 05:49 Dose: 100 mls/hr Lactulose (Enulose) 20 gm PO DAILY PRN PRN Reason: Constipation Levothyroxine Sodium (Synthroid) 25 mcg PO DAILY@0630 [facility] Last Admin: 10/03/17 06:02 Dose: 25 mcg Losartan Potassium (Cozaar) 25 mg PO DAILY [facility] Last Admin: 10/03/17 08:51 Dose: Not Given Memantine (Namenda) 10 mg PO DAILY [facility] Last Admin: 10/03/17 08:56 Dose: 10 mg Metoprolol Succinate (Toprol Xl) 25 mg PO DAILY [facility] Last Admin: 10/03/17 08:37 Dose: Not Given Multivitamins/Minerals (Therapeutic-M Tab) 1 tab PO DAILY [facility] Last Admin: 10/03/17 08:55 Dose: 1 tab Potassium Chloride (K-Dur 20 Meq Er Tab) 20 meq PO DAILY [facility] Last Admin: 10/03/17 08:56 Dose: 20 meq Ranolazine (Ranexa) 500 mg PO DAILY [facility] Last Admin: 10/03/17 08:55 Dose: 500 mg Vitamin E (Vitamin E 400 Units Cap) 400 intlu PO DAILY [facility] Last Admin: 10/03/17 08:55 Dose: 400 intlu - Labs Labs: 10/03/17 05:58 10/03/17 05:58 - Additional Findings Additional findings: Physical exam: Constitutional- cooperative, awake, alert, more coherent, less toxic appearing today Head- NCAT, PERRL Eye- PERRL, EOMI ENT- normal exam, MMM. Neck- normal inspection, supple, no JVD Respiratory- CTAB, occ wheezing Cardiovascular- RRR, +S1, +S2 no MRG GI/Abdominal- normal bowel sounds, soft, no mass, no hsm Skin- warm, dry Extremities Exam- normal capillary refill, normal inspection Neurological Exam- alert, awake, oriented Psych- normal mood, normal affect Assessment and Plan - Assessment and Plan (Free Text) Plan: This is a 81 female with a history of cardiomyopathy EF 25-30% , s/p AICD, anxiety, pulmonary hypertension, COPD ( ex smoker ), HTN, Dyslipidemia, Hypothyroidism ,lower back pain , sciatica, osteoporosis, RA, CKD stage III, presenting to the ED with the complaint of abdominal pain beginning this afternoon. The patient states that the pain is bilateral and lower, sharp, associated with nausea and 1 episode of nonbilious, nonbloody emesis today. The patient alos reports 6 days of constipation. In the ED, the patient was found to have 10% bands, Lactate of 4.0, elevated BNP of 5430, BUN of 28, and Cr of 1.6. She met the criteria for severe sepsis as a result and code sepsis was called. However the patient is hemodynamically stable at this time and is maintaining a good blood pressure. The patient was seen by critical care physician Dr. Rodarte and feels the patient is stable for telemetry admission. CT abd/pelvis was performed and final report pending. The patient was given IV fluids, Vanc/Zosyn while in ED. Patient denies chest pain, fevers, chills, nausea, vomiting, diarrhea, headache. All of the patient's questions were answered at the bedside. 1) Severe sepsis, U/A shows evidence of UTI and CT shows likely recently passed stone, also possible left lower lobe infiltrate on CT - Telemetry admission - Lactic acid 4 -> 1.5 this morning, but patient's WBC elevated to 35.7 this morning - Consultation with Dr. Rodarte appreciated - Consultation with Dr. West- rec continuing Vanc and Zosyn for now (will order renal dosing due to pts chronic kidney disease - CXR clear, but CT of the chest pending to evaluate for PE as well as to look for pneumonia or other source of infection - F/u Blood, urine cultures - f/u Procalcitonin - CT abd/pelvis- mild left hydroureteronephrosis without evidence of obstructing calculus. Left lower lobe infiltrate, r/o pneumonia - NPO for now, will advance diet depending on CT read 2) Left lower lobe pneumonia - Vanc/Zosyn - Sputum CX 3) Systolic and diastolic CHF,chronic , compensated Pulmonary HTN, severe - EF 25% - Consultation with Dr. Da Silva - Caution with hydration - Hold Lasix for now due to sepsis - patient normovolemic at this time - monitor - ASA - Restart Sildenafil later if BP holds - Amiodarone 4) Acute on chronic kidney disease stage III - Renal function worsened overnight, 28/1.6 to 33/2.1, likely due to Vancomycin and Zosyn - Will discuss changing antibiotics to less nephrotoxic ones with Dr. West - Monitor 5) COPD - Chronic - Duoneb changed to scheduled q4 hours and PRN - Dr. Gomez consult 6) Hypothyroidism Chronic Continue Levothyroxine 7) DVT prophylaxis - Heparin
[2017-10-03] MEDS ORDERED: MethylPREDNISolone 40 mg Vial IVP SCH (11:15)
[2017-10-03] MEDS ORDERED: methylPREDNISolone 40 MG in Sodium Chloride 0.9% 50 ML IVPB SCH (11:15)
[2017-10-03] MEDS: Albuterol-Ipratrop 3 mg / 0.5 (3 ml) UD INH SCH ×3 (11:19→19:12)
--- NOTE | 2017-10-03 12:11 | CP.PCM.CON ---
History of Present Illness - History of Present Illness History of Present Illness: This 81-year-old female is known to me from prior hospitalizations and the outpatient setting. She presented to the emergency department at this time with a chief complaint of abdominal pain associated with nausea and vomiting. Her discomfort began at least 1 day prior to presentation if not longer. She has not had a bowel movement for the past 6 days despite taking multiple laxatives. She was unaware of fever and denied chills. She did not complain of chest pain or shortness of breath. Upon presentation she was found to have a lactate level of 4 with 10% immature forms on her CBC despite having a normal white blood cell count. CT scan of the abdomen showed left hydroureteronephrosis without an obstruction calculus seen. There was questionable left lower lobe infiltrate and diverticulosis seen. A CT of the chest was performed today which did confirm the fact that there is a small area of pneumonic-type infiltrate in the left infrahilar region. Today she does recall some posterior left flank pain which she had at home as well. Urinalysis did show red blood cells and white blood cells. She has been followed closely by cardiology because of previous myocardial infarction and significant ischemic cardiomyopathy with an EF 25-30% . There is an implanted AICD. She also has significant pulmonary hypertension for which she has been taking sildenafil 20 mg twice daily, which was recently reduced from 3 times a day. Review of Systems - Review of Systems All systems: reviewed and no additional remarkable complaints except - Cardiovascular Cardiovascular: As Per HPI - Respiratory Respiratory: As Per HPI - Gastrointestinal Gastrointestinal: Abdominal Pain, Constipation, Vomiting Past Patient History - Infectious Disease Hx of Infectious Diseases: None - Tetanus Immunizations Tetanus Immunization: Unknown - Past Medical History & Family History Past Medical History?: Yes Pertinent Family History: cancer, CAD - Past Social History Smoking Status: Former Smoker Chewing Tobacco Use: No Cigar Use: No Alcohol: None Drugs: Denies Home Situation {Lives}: Alone - CARDIAC Hx Cardia Arrhythmia: Yes Hx Congestive Heart Failure: Yes Hx Heart Attack: Yes Hx Hypercholesterolemia: Yes Hx Hypertension: Yes Hx Internal Defibrillator: Yes Hx Peripheral Edema: Yes - PULMONARY Hx Bronchitis: Yes Hx Chronic Obstructive Pulmonary Disease (COPD): Yes Hx Pneumonia: Yes Other/Comment: pulmonary hypertension - NEUROLOGICAL Hx Transient Ischemic Attacks (TIA): Yes - HEENT Hx HEENT Problems: Yes Other/Comment: chronic mastoiditis - RENAL Hx Chronic Kidney Disease: No - ENDOCRINE/METABOLIC Hx Hypothyroidism: Yes - HEMATOLOGICAL/ONCOLOGICAL Hx Cancer: Yes - INTEGUMENTARY Hx Dermatological Problems: No - MUSCULOSKELETAL/RHEUMATOLOGICAL Hx Arthritis: Yes Hx Falls: Yes Hx Osteoporosis: Yes - GASTROINTESTINAL Hx Constipation: Yes - GENITOURINARY/GYNECOLOGICAL Hx Genitourinary Disorders: No - PSYCHIATRIC Hx Psychophysiologic Disorder: No Hx Substance Use: No - SURGICAL HISTORY Hx Appendectomy: Yes Hx Cholecystectomy: Yes Hx Coronary Stent: Yes Hx Mastectomy: Yes Hx Tonsillectomy: Yes - ANESTHESIA Hx Anesthesia: Yes Hx Anesthesia Reactions: No Hx Malignant Hyperthermia: No Meds Allergies/Adverse Reactions: Allergies Allergy/AdvReac Type Severity Reaction Status Date / Time No Known Allergies Allergy Verified 10/02/17 14:39 - Medications Medications: Current Medications Acetaminophen (Tylenol 325mg Tab) 650 mg PO Q6 PRN PRN Reason: Fever >100.4 F Last Admin: 10/03/17 00:07 Dose: 650 mg Albuterol/Ipratropium (Duoneb 3 Mg/0.5 Mg (3 Ml) Ud) 3 ml INH RQ4 [facility] Last Admin: 10/03/17 11:19 Dose: 3 ml Albuterol/Ipratropium (Duoneb 3 Mg/0.5 Mg (3 Ml) Ud) 3 ml INH RQ2 PRN PRN Reason: Shortness of Breath Amiodarone HCl (Cordarone) 100 mg PO DAILY [facility] Last Admin: 10/03/17 09:01 Dose: 100 mg Anastrozole (Arimidex 1 Mg Tab) 1 mg PO DAILY [facility] Last Admin: 10/03/17 08:49 Dose: 1 mg Ascorbic Acid (Vitamin C 500 Mg Tab) 500 mg PO DAILY [facility] Last Admin: 10/03/17 08:54 Dose: 500 mg Aspirin (Ecotrin) 81 mg PO DAILY [facility] Last Admin: 10/03/17 08:51 Dose: 81 mg Atorvastatin Calcium (Lipitor) 20 mg PO HS [facility] Last Admin: 10/02/17 23:08 Dose: Not Given Cholecalciferol (Vitamin D) 1,000 intlu PO DAILY [facility] Last Admin: 10/03/17 08:54 Dose: 1,000 intlu Docusate Sodium (Colace) 200 mg PO DAILY [facility] Last Admin: 10/03/17 08:49 Dose: 200 mg Guaifenesin (Robitussin) 100 mg PO Q6 PRN PRN Reason: Cough Vancomycin HCl 1 gm/ Sodium (Chloride) 250 mls @ 250 mls/hr IVPB Q24H YUVAL PRN Reason: Protocol Last Admin: 10/03/17 08:47 Dose: 250 mls/hr Piperacillin Sod/Tazobactam (Sod 2.25 gm/ Sodium Chloride) 100 mls @ 100 mls/ hr IVPB Q6 YUVAL PRN Reason: Protocol Last Admin: 10/03/17 09:17 Dose: 100 mls/hr Lactulose (Enulose) 20 gm PO DAILY PRN PRN Reason: Constipation Levothyroxine Sodium (Synthroid) 25 mcg PO DAILY@0630 [facility] Last Admin: 10/03/17 06:02 Dose: 25 mcg Losartan Potassium (Cozaar) 25 mg PO DAILY [facility] Last Admin: 10/03/17 08:51 Dose: Not Given Memantine (Namenda) 10 mg PO DAILY [facility] Last Admin: 10/03/17 08:56 Dose: 10 mg Metoprolol Succinate (Toprol Xl) 25 mg PO DAILY [facility] Last Admin: 10/03/17 08:37 Dose: Not Given Multivitamins/Minerals (Therapeutic-M Tab) 1 tab PO DAILY [facility] Last Admin: 10/03/17 08:55 Dose: 1 tab Potassium Chloride (K-Dur 20 Meq Er Tab) 20 meq PO DAILY [facility] Last Admin: 10/03/17 08:56 Dose: 20 meq Ranolazine (Ranexa) 500 mg PO DAILY [facility] Last Admin: 10/03/17 08:55 Dose: 500 mg Vitamin E (Vitamin E 400 Units Cap) 400 intlu PO DAILY [facility] Last Admin: 10/03/17 08:55 Dose: 400 intlu Physical Exam - Additional Findings Additional findings: Well developed, no acute distress. Lying semi-upright in bed, well oriented x 3. No palpable lymphadenopathy, Pharynx is pink, MM moist, no infiltrate. Conjunctivae pink, no scleral icterus. Nares patent bilaterally w/o bleeding . Neck is supple and trachea midline. No visible JVD, no carotid bruit. No dullness on chest percussion, no subcut emphysema. Breath sounds are diminished bilaterally w/o audible wheezes. Few dry basal rales are present bilaterally, posteriorly. No bronchial breath sounds or egophony. Heart sounds are distant, rhythm regular, systolic murmur at LSB. Abdomen is soft and non-tender with normal bowel sounds. No CVA tenderness No dependant edema or cyanosis, no calf tenderness. Results - Vital Signs Recent Vital Signs: Last Vital Signs Temp 98.6 F 10/03/17 08:00 Pulse 85 10/03/17 11:19 Resp 20 10/03/17 08:00 BP 103/61 10/03/17 09:01 Pulse Ox 99 10/03/17 08:00 - Labs Result Diagrams: 10/04/17 05:31 10/04/17 05:31 Labs: Laboratory Results - last 24 hr 10/02/17 10/02/17 10/02/17 15:35 15:35 16:48 WBC 7.5 RBC 3.84 Hgb 12.4 Hct 38.1 MCV 99.1 H MCH 32.3 H MCHC 32.5 L RDW 14.7 H Plt Count 252 MPV 9.1 Neut % (Auto) 93.8 H Lymph % (Auto) 5.1 L Dukes % (Auto) 0.7 Eos % (Auto) 0.1 Baso % (Auto) 0.3 Neut # (Auto) 7.0 Lymph # (Auto) 0.4 L Dukes # (Auto) 0.0 Eos # (Auto) 0.0 Baso # (Auto) 0.0 Neutrophils % (Manual) 81 H Band Neutrophils % 10 H Lymphocytes % (Manual) 7 L Monocytes % (Manual) 2 Toxic Granulation Platelet Estimate Normal Large Platelets Present Giant Platelets Hypochromasia (manual) Slight Anisocytosis (manual) Slight Ovalocytes Schistocytes pCO2 34 L pO2 53 L HCO3 22.8 ABG pH 7.41 ABG Total CO2 22.6 ABG O2 Saturation 92.1 L ABG Base Excess -2.4 L Baljeet Test Yes ABG Potassium 3.9 VBG pH VBG pCO2 VBG HCO3 VBG Total CO2 VBG O2 Sat (Calc) VBG Base Excess VBG Potassium A-a O2 Difference 133.0 Glucose 135 H Lactate 4.0 H* FiO2 32.0 Crit Value Called To Crit Value Called By Crit Value Read Back Blood Gas Notified Time Sodium 142 139.0 Potassium 4.9 Chloride 104 107.0 Carbon Dioxide 21 L Anion Gap 22 H BUN 28 H Creatinine 1.6 H Est GFR ( Amer) 38 Est GFR (Non-Af Amer) 31 Random Glucose 151 H Lactic Acid Calcium 9.7 Total Bilirubin 1.0 AST 31 ALT 24 Alkaline Phosphatase 58 Troponin I 0.0190 NT-Pro-B Natriuret Pep 5430 H Total Protein 7.7 Albumin 4.4 Globulin 3.3 Albumin/Globulin Ratio 1.4 Amylase 92 Lipase 68 Arterial Blood Potassium 3.9 Venous Blood Potassium Urine Color Urine Clarity Urine pH Ur Specific Marion Urine Protein Urine Glucose (UA) Urine Ketones Urine Blood Urine Nitrate Urine Bilirubin Urine Urobilinogen Ur Leukocyte Esterase Urine RBC (Auto) Urine WBC Clumps (Auto) Urine Microscopic WBC Ur Squamous Epith Cells Ur Transition Epith Cell Amorphous Sediment Urine Bacteria 10/02/17 10/02/17 10/02/17 18:20 19:59 22:00 WBC RBC Hgb Hct MCV MCH MCHC RDW Plt Count MPV Neut % (Auto) Lymph % (Auto) Dukes % (Auto) Eos % (Auto) Baso % (Auto) Neut # (Auto) Lymph # (Auto) Dukes # (Auto) Eos # (Auto) Baso # (Auto) Neutrophils % (Manual) Band Neutrophils % Lymphocytes % (Manual) Monocytes % (Manual) Toxic Granulation Platelet Estimate Large Platelets Giant Platelets Hypochromasia (manual) Anisocytosis (manual) Ovalocytes Schistocytes pCO2 pO2 56 H HCO3 ABG pH ABG Total CO2 ABG O2 Saturation ABG Base Excess Baljeet Test ABG Potassium VBG pH 7.42 VBG pCO2 35 L VBG HCO3 23.7 VBG Total CO2 23.8 VBG O2 Sat (Calc) 95.4 H VBG Base Excess -1.3 L VBG Potassium 3.6 A-a O2 Difference Glucose 158 H Lactate 2.1 FiO2 32.0 Crit Value Called To david Castellon Crit Value Called By Kingsley steve Crit Value Read Back Y Blood Gas Notified Time 2007 Sodium 134.0 Potassium Chloride 106.0 Carbon Dioxide Anion Gap BUN Creatinine Est GFR ( Amer) Est GFR (Non-Af Amer) Random Glucose Lactic Acid 2.6 H Calcium Total Bilirubin AST ALT Alkaline Phosphatase Troponin I NT-Pro-B Natriuret Pep Total Protein Albumin Globulin Albumin/Globulin Ratio Amylase Lipase Arterial Blood Potassium Venous Blood Potassium 3.6 Urine Color Reny Urine Clarity Cloudy Urine pH 5.0 Ur Specific Marion 1.015 Urine Protein 30 Urine Glucose (UA) Neg Urine Ketones Negative Urine Blood Large Urine Nitrate Negative Urine Bilirubin Negative Urine Urobilinogen 0.2-1.0 Ur Leukocyte Esterase Mod Urine RBC (Auto) 1100 H Urine WBC Clumps (Auto) Few H Urine Microscopic WBC 53 H Ur Squamous Epith Cells 1 Ur Transition Epith Cell 1 Amorphous Sediment Moderate H Urine Bacteria Occ H 10/03/17 10/03/17 05:58 05:58 WBC 35.7 H D RBC 2.92 L Hgb 9.2 L D Hct 28.8 L MCV 98.6 MCH 31.4 H MCHC 31.9 L RDW 14.5 Plt Count 146 D MPV 9.5 Neut % (Auto) 94.5 H Lymph % (Auto) 0.5 L Dukes % (Auto) 4.5 Eos % (Auto) 0.0 Baso % (Auto) 0.5 Neut # (Auto) 33.7 H Lymph # (Auto) 0.2 L Dukes # (Auto) 1.6 H Eos # (Auto) 0.0 Baso # (Auto) 0.2 Neutrophils % (Manual) 84 H Band Neutrophils % 11 H* Lymphocytes % (Manual) 0 L Monocytes % (Manual) 5 Toxic Granulation Present Platelet Estimate Normal Large Platelets Present Giant Platelets Present Hypochromasia (manual) Slight Anisocytosis (manual) Ovalocytes Slight Schistocytes Slight pCO2 pO2 HCO3 ABG pH ABG Total CO2 ABG O2 Saturation ABG Base Excess Baljeet Test ABG Potassium VBG pH VBG pCO2 VBG HCO3 VBG Total CO2 VBG O2 Sat (Calc) VBG Base Excess VBG Potassium A-a O2 Difference Glucose Lactate FiO2 Crit Value Called To Crit Value Called By Crit Value Read Back Blood Gas Notified Time Sodium 137 Potassium 4.5 Chloride 106 Carbon Dioxide 20 L Anion Gap 16 BUN 33 H Creatinine 2.1 H Est GFR ( Amer) 27 Est GFR (Non-Af Amer) 23 Random Glucose 128 H Lactic Acid Calcium 8.1 L Total Bilirubin 0.8 AST 52 H D ALT 49 Alkaline Phosphatase 41 Troponin I NT-Pro-B Natriuret Pep Total Protein 5.6 L Albumin 3.1 L D Globulin 2.5 Albumin/Globulin Ratio 1.2 Amylase Lipase Arterial Blood Potassium Venous Blood Potassium Urine Color Urine Clarity Urine pH Ur Specific Marion Urine Protein Urine Glucose (UA) Urine Ketones Urine Blood Urine Nitrate Urine Bilirubin Urine Urobilinogen Ur Leukocyte Esterase Urine RBC (Auto) Urine WBC Clumps (Auto) Urine Microscopic WBC Ur Squamous Epith Cells Ur Transition Epith Cell Amorphous Sediment Urine Bacteria Assessment & Plan (1) Abdominal pain Status: Acute Priority: High (2) Sepsis Status: Acute Priority: High (3) Pneumonia Status: Acute Priority: High (4) Hydroureteronephrosis Status: Acute Priority: High (5) Suspected urinary tract infection Status: Acute Priority: High (6) Chronic constipation Status: Chronic Priority: Medium - Assessment and Plan (Free Text) Plan: Agree with current medical regimen. Respiratory status appears to be stable. Will not add any rx at this time. Will follow and await culture results. Sildenafil will resume as clinical condition stabilizes. - Date & Time Date: 10/03/17 Time: 12:11
--- NOTE | 2017-10-03 12:47 | CT ---
Date of service: 10/03/2017 PROCEDURE: CT Chest without contrast HISTORY: SOB COMPARISON: 04/29/2017 TECHNIQUE: Contiguous axial images were obtained through the chest without intravenous contrast enhancement. Sagittal and coronal reconstructions were performed. Radiation dose (DLP): 251.20 mGy-cm. This CT exam was performed using one or more of the following dose reduction techniques: Automated exposure control, adjustment of the mA and/or kV according to patient size, and/or use of iterative reconstruction technique. FINDINGS: LUNGS: Focal opacity, possibly subsegmental atelectasis noted in superior segment right lower lobe and in superior segment left lower lobe. These findings are essentially unchanged compared to 04/29/2017 under therefore likely chronic. No new infiltrate. MEDIASTINUM: Unremarkable thoracic aorta. No aneurysm. Cardiomegaly. AICD. Main pulmonary artery unremarkable. No vascular congestion. No lymphadenopathy. PLEURA: No pleural fluid. No pneumothorax. BONES: No fracture. No destructive lesion. UPPER ABDOMEN: Grossly unremarkable. OTHER FINDINGS: Prior left mastectomy. IMPRESSION: No acute infiltrate.
--- NOTE | 2017-10-03 13:48 | CP.PCM.CON ---
History of Present Illness - History of Present Illness History of Present Illness: 81 female with a history of cardiomyopathy EF 25-30% , s/p AICD, anxiety, pulmonary hypertension, COPD ( ex smoker ), HTN, Dyslipidemia, Hypothyroidism , lower back pain , sciatica, osteoporosis, RA brought to ER by EMS for abdominal pain. Found to have severe sepsis requiring fluid resuscitation and IV antibiotics Pt reports abdominal pain that started yesterday, diffuse across entire lower abdomen, associated with nausea and 1 episode of vomiting today. Pt also reports constipation x 6 days now. She denies any chest pain , SOB, palpitations, Blurry vision , FIELD, focal weakness. No fever or chills. 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), HTN, Hypercholesterolemia, Hyperlipidemia, Hypothyroidism, Osteoporosis, Peripheral Edema, Pneumonia, Rheumatoid Arthritis, TIA - Surgical History Surgical History: Appendectomy, Cholecystectomy, Coronary Stent, Pacemaker (AICD ), Tonsillectomy Denies: CABG, Carotid Endarterectomy Review of Systems - Review of Systems All systems: reviewed and no additional remarkable complaints except - Constitutional Constitutional: As Per HPI, Chills, Malaise - EENT Eyes: absent: As Per HPI, Blind Spots, Blurred Vision, Change in Vision, Decreased Night Vision, Diplopia, Discharge, Dry Eye, Exophthalmos, Floaters, Irritation, Itchy Eyes, Loss of Peripheral Vision, Pain, Photophobia, Requires Corrective Lenses, Sees Flashes, Spots in Vision, Tunnel Vision, Other Visual Disturbances, Loss of Vision, Other Ears: absent: As Per HPI, Decreased Hearing, Ear Discharge, Ear Pain, Tinnitus, Abnormal Hearing, Disequilibrium, Dizziness, Other Nose/Mouth/Throat: absent: As Per HPI, Epistaxis, Nasal Congestion, Nasal Discharge, Nasal Obstruction, Nasal Trauma, Nose Pain, Post Nasal Drip, Sinus Pain, Sinus Pressure, Bleeding Gums, Change in Voice, Dental Pain, Dry Mouth, Dysphagia, Halitosis, Hoarsness, Lip Swelling, Mouth Lesions, Mouth Pain, Odynophagia, Sore Throat, Throat Swelling, Tongue Swelling, Facial Pain, Neck Pain, Neck Mass, Other - Breasts Breasts: absent: As Per HPI, Change in Shape, Mass, Pain, Nipple Discharge, Nipple Inversion, Skin Changes, Swelling, Other - Cardiovascular Cardiovascular: As Per HPI - Respiratory Respiratory: As Per HPI, Cough, Dyspnea. absent: Hemoptysis - Gastrointestinal Gastrointestinal: As Per HPI, Abdominal Pain - Genitourinary Genitourinary: As Per HPI - Reproductive: Female Reproductive:Female: absent: As Per HPI, Amenorrhea, Amenorrhea/ Control, Currently Menstual, Cycle <21 Days, Cycle >35 Days, Cycle Variable, Menses 1-7 Days, Menses >/= 8 Days, Menses Variable, Cycle > 4 Weeks Between, No Menses for 6 Months, Heavy Menses, Light Menses, Normal Menses, Spotting Between Cycles , S/P Hysterectomy, Menopausal, Post Menopausal, Premenarche, Abnormal Vaginal Bleeding, Dysmenorrhea, Dyspareunia, Genital Lesions, Genital Pruritis, Pelvic Pain, Prolapse Symptoms, Sexual Dysfunction, Vaginal Discharge, Vaginal Dryness , Vaginal Odor, Vaginal Pruritis, Other - Menstruation Menstruation: absent: As Per HPI, Amenorrhea, Amenorrhea/ Control, Currently Menstual, Cycle <21 Days, Cycle >35 Days, Cycle Variable, Menses 1-7 Days, Menses >/= 8 Days, Menses Variable, Cycle > 4 Weeks Between, No Menses for 6 Months, Heavy Menses, Light Menses, Normal Menses, Spotting Between Cycles , S/P Hysterectomy, Menopausal, Post Menopausal, Premenarche, Abnormal Vaginal Bleeding, Dysmenorrhea, Other - Musculoskeletal Musculoskeletal: absent: As Per HPI, Abnormal Gait, Arthralgias, Atrophy, Back Pain, Deformity, Joint Swelling, Limited Range of Motion, Loss of Height, Muscle Cramps, Muscle Weakness, Myalgias, Neck Pain, Numbness, Radiating Pain into Limb, Stiffness, Tingling, Other - Integumentary Integumentary: absent: As Per HPI, Acne, Alopecia, Bleeding Lesions, Change in Hair, Change in Nails, Change in Pigmentation, Changing Lesions, Dry Skin, Erythema, Furuncle, Hirsutism, Lesions, New Lesions, Non-Healing Lesions, Photosensitivity, Pruritus, Rash, Skin Pain, Skin Ulcer, Sores, Striae, Swelling , Unusual Bruising, Wounds, Jaundice, Other - Neurological Neurological: absent: As Per HPI, Abnormal Gait, Abnormal Hearing, Abnormal Movements, Abnormal Speech, Behavioral Changes, Burning Sensations, Confusion, Convulsions, Disequilibrium, Dizziness, Numbness, Focal Weakness, Frequent Falls , Headaches, Lack of Coordination, Loss of Vision, Memory Loss, Paresthesias, Radicular Pain, Restless Legs, Sensory Deficit, Syncope, Tingling, Tremor, Vertigo, Weakness, Other Visual Disturbances, Other - Psychiatric Psychiatric: absent: As Per HPI, Abnormal Sleep Pattern, Anhedonia, Anxiety, Auditory Hallucinations, Behavioral Changes, Change in Appetite, Change in Libido, Confusion, Depression, Difficulty Concentrating, Hallucinations, Homicidal Ideation, Hopelessness, Irritability, Memory Loss, Mood Swings, Panic Attacks, Paranoia, Suicidal Ideation, Visual Hallucinations, Tactile Hallucinations, Other - Endocrine Endocrine: absent: As Per HPI, Change in Body Appearance, Change in Libido, Cold Intolorance, Deepening of Voice, Excessive Sweating, Fatigue, Flushing, Heat Intolorance, Increase in Ring/Shoe/Hat Size, Palpitations, Polydipsia, Polyphagia, Polyuria, Other - Hematologic/Lymphatic Hematologic: absent: As Per HPI, Easy Bleeding, Easy Bruising, Lymphadenopathy, Other Past Patient History - Infectious Disease Hx of Infectious Diseases: None - Tetanus Immunizations Tetanus Immunization: Unknown - Past Medical History & Family History Past Medical History?: Yes - Past Social History Smoking Status: Former Smoker - CARDIAC Hx Cardiac Disorders: Yes (arrhythmia, CHF, hypercholesterolemia, HTN, defibrillator, peripheral edema) - PULMONARY Hx Respiratory Disorders: Yes (bronchitis, COPD, pneumonia) - NEUROLOGICAL Hx Neurological Disorder: Yes (TIA) - HEENT Hx HEENT Problems: Yes - RENAL Hx Chronic Kidney Disease: No - ENDOCRINE/METABOLIC Hx Endocrine Disorders: Yes (hypothyroidism) - HEMATOLOGICAL/ONCOLOGICAL Hx Blood Disorders: Yes (breast ca) - INTEGUMENTARY Hx Dermatological Problems: No - MUSCULOSKELETAL/RHEUMATOLOGICAL Hx Musculoskeletal Disorders: Yes (arthritis) Hx Falls: Yes - GASTROINTESTINAL Hx Crohn's Disease: No Hx Diverticulitis: No Hx Gall Bladder Disease: No Hx Gastritis: No Hx Pancreatitis: No - GENITOURINARY/GYNECOLOGICAL Hx Genitourinary Disorders: No - PSYCHIATRIC Hx Psychophysiologic Disorder: No Hx Substance Use: No - SURGICAL HISTORY Hx Appendectomy: Yes Hx Carotid Endarterectomy: No Hx Cholecystectomy: Yes Hx Coronary Artery Bypass Graft: No Hx Coronary Stent: Yes Hx Mastectomy: Yes Hx Tonsillectomy: Yes - ANESTHESIA Hx Anesthesia: Yes Hx Anesthesia Reactions: No Hx Malignant Hyperthermia: No Meds Allergies/Adverse Reactions: Allergies Allergy/AdvReac Type Severity Reaction Status Date / Time No Known Allergies Allergy Verified 10/02/17 14:39 - Medications Medications: Current Medications Acetaminophen (Tylenol 325mg Tab) 650 mg PO Q6 PRN PRN Reason: Fever >100.4 F Last Admin: 10/03/17 00:07 Dose: 650 mg Acetaminophen (Tylenol 325mg Tab) 650 mg PO Q6 PRN PRN Reason: Pain, Mild (1-3) Albuterol/Ipratropium (Duoneb 3 Mg/0.5 Mg (3 Ml) Ud) 3 ml INH RQ4 COUNT INCLUDES THE [facility] Last Admin: 10/03/17 11:19 Dose: 3 ml Albuterol/Ipratropium (Duoneb 3 Mg/0.5 Mg (3 Ml) Ud) 3 ml INH RQ2 PRN PRN Reason: Shortness of Breath Amiodarone HCl (Cordarone) 100 mg PO DAILY COUNT INCLUDES THE [facility] Last Admin: 10/03/17 09:01 Dose: 100 mg Anastrozole (Arimidex 1 Mg Tab) 1 mg PO DAILY COUNT INCLUDES THE [facility] Last Admin: 10/03/17 08:49 Dose: 1 mg Ascorbic Acid (Vitamin C 500 Mg Tab) 500 mg PO DAILY COUNT INCLUDES THE [facility] Last Admin: 10/03/17 08:54 Dose: 500 mg Aspirin (Ecotrin) 81 mg PO DAILY COUNT INCLUDES THE [facility] Last Admin: 10/03/17 08:51 Dose: 81 mg Atorvastatin Calcium (Lipitor) 20 mg PO HS COUNT INCLUDES THE [facility] Last Admin: 10/02/17 23:08 Dose: Not Given Cholecalciferol (Vitamin D) 1,000 intlu PO DAILY COUNT INCLUDES THE [facility] Last Admin: 10/03/17 08:54 Dose: 1,000 intlu Docusate Sodium (Colace) 200 mg PO DAILY COUNT INCLUDES THE [facility] Last Admin: 10/03/17 08:49 Dose: 200 mg Guaifenesin (Robitussin) 100 mg PO Q6 PRN PRN Reason: Cough Vancomycin HCl 1 gm/ Sodium (Chloride) 250 mls @ 250 mls/hr IVPB Q24H YUVAL PRN Reason: Protocol Last Admin: 10/03/17 08:47 Dose: 250 mls/hr Piperacillin Sod/Tazobactam (Sod 2.25 gm/ Sodium Chloride) 100 mls @ 100 mls/ hr IVPB Q6 YUVAL PRN Reason: Protocol Last Admin: 10/03/17 09:17 Dose: 100 mls/hr Lactulose (Enulose) 20 gm PO DAILY PRN PRN Reason: Constipation Levothyroxine Sodium (Synthroid) 25 mcg PO DAILY@0630 COUNT INCLUDES THE [facility] Last Admin: 10/03/17 06:02 Dose: 25 mcg Losartan Potassium (Cozaar) 25 mg PO DAILY COUNT INCLUDES THE [facility] Last Admin: 10/03/17 08:51 Dose: Not Given Memantine (Namenda) 10 mg PO DAILY COUNT INCLUDES THE [facility] Last Admin: 10/03/17 08:56 Dose: 10 mg Metoprolol Succinate (Toprol Xl) 25 mg PO DAILY COUNT INCLUDES THE [facility] Last Admin: 10/03/17 08:37 Dose: Not Given Multivitamins/Minerals (Therapeutic-M Tab) 1 tab PO DAILY COUNT INCLUDES THE [facility] Last Admin: 10/03/17 08:55 Dose: 1 tab Potassium Chloride (K-Dur 20 Meq Er Tab) 20 meq PO DAILY COUNT INCLUDES THE [facility] Last Admin: 10/03/17 08:56 Dose: 20 meq Ranolazine (Ranexa) 500 mg PO DAILY COUNT INCLUDES THE [facility] Last Admin: 10/03/17 08:55 Dose: 500 mg Vitamin E (Vitamin E 400 Units Cap) 400 intlu PO DAILY COUNT INCLUDES THE [facility] Last Admin: 10/03/17 08:55 Dose: 400 intlu Physical Exam - Constitutional Appears: Non-toxic, No Acute Distress, Chronically Ill - Head Exam Head Exam: ATRAUMATIC, NORMAL INSPECTION, NORMOCEPHALIC - Eye Exam Eye Exam: PERRL. absent: Scleral icterus - ENT Exam ENT Exam: Mucous Membranes Dry, Normal External Ear Exam - Neck Exam Neck exam: Negative for: Lymphadenopathy - Respiratory Exam Respiratory Exam: Decreased Breath Sounds, Prolonged Expiratory Phase, Rhonchi - Cardiovascular Exam Cardiovascular Exam: REGULAR RHYTHM, +S1, +S2 - GI/Abdominal Exam GI & Abdominal Exam: Diminished Bowel Sounds, Distended, Soft. absent: Guarding , Rebound, Rigid, Tenderness - Rectal Exam Rectal Exam: Deferred - Exam Exam: NORMAL INSPECTION - Extremities Exam Extremities exam: Positive for: pedal pulses present. Negative for: calf tenderness, pedal edema, tenderness - Back Exam Back exam: absent: CVA tenderness (L), CVA tenderness (R), paraspinal tenderness - Neurological Exam Neurological exam: Alert, CN II-XII Intact, Oriented x3, Reflexes Normal - Psychiatric Exam Psychiatric exam: Normal Mood - Skin Skin Exam: Dry, Intact Results - Vital Signs Recent Vital Signs: Last Vital Signs Temp 98.5 F 10/03/17 12:00 Pulse 88 10/03/17 12:00 Resp 20 10/03/17 12:00 BP 116/68 10/03/17 12:00 Pulse Ox 95 10/03/17 12:00 - Labs Result Diagrams: 10/03/17 05:58 10/03/17 05:58 Labs: Laboratory Results - last 24 hr 10/02/17 10/02/17 10/02/17 15:35 15:35 16:48 WBC 7.5 RBC 3.84 Hgb 12.4 Hct 38.1 MCV 99.1 H MCH 32.3 H MCHC 32.5 L RDW 14.7 H Plt Count 252 MPV 9.1 Neut % (Auto) 93.8 H Lymph % (Auto) 5.1 L Moore % (Auto) 0.7 Eos % (Auto) 0.1 Baso % (Auto) 0.3 Neut # (Auto) 7.0 Lymph # (Auto) 0.4 L Moore # (Auto) 0.0 Eos # (Auto) 0.0 Baso # (Auto) 0.0 Neutrophils % (Manual) 81 H Band Neutrophils % 10 H Lymphocytes % (Manual) 7 L Monocytes % (Manual) 2 Toxic Granulation Platelet Estimate Normal Large Platelets Present Giant Platelets Hypochromasia (manual) Slight Anisocytosis (manual) Slight Ovalocytes Schistocytes pCO2 34 L pO2 53 L HCO3 22.8 ABG pH 7.41 ABG Total CO2 22.6 ABG O2 Saturation 92.1 L ABG Base Excess -2.4 L Baljeet Test Yes ABG Potassium 3.9 VBG pH VBG pCO2 VBG HCO3 VBG Total CO2 VBG O2 Sat (Calc) VBG Base Excess VBG Potassium A-a O2 Difference 133.0 Glucose 135 H Lactate 4.0 H* FiO2 32.0 Crit Value Called To Crit Value Called By Crit Value Read Back Blood Gas Notified Time Sodium 142 139.0 Potassium 4.9 Chloride 104 107.0 Carbon Dioxide 21 L Anion Gap 22 H BUN 28 H Creatinine 1.6 H Est GFR ( Amer) 38 Est GFR (Non-Af Amer) 31 Random Glucose 151 H Lactic Acid Calcium 9.7 Total Bilirubin 1.0 AST 31 ALT 24 Alkaline Phosphatase 58 Troponin I 0.0190 NT-Pro-B Natriuret Pep 5430 H Total Protein 7.7 Albumin 4.4 Globulin 3.3 Albumin/Globulin Ratio 1.4 Amylase 92 Lipase 68 Arterial Blood Potassium 3.9 Venous Blood Potassium Urine Color Urine Clarity Urine pH Ur Specific [place] Urine Protein Urine Glucose (UA) Urine Ketones Urine Blood Urine Nitrate Urine Bilirubin Urine Urobilinogen Ur Leukocyte Esterase Urine RBC (Auto) Urine WBC Clumps (Auto) Urine Microscopic WBC Ur Squamous Epith Cells Ur Transition Epith Cell Amorphous Sediment Urine Bacteria 10/02/17 10/02/17 10/02/17 18:20 19:59 22:00 WBC RBC Hgb Hct MCV MCH MCHC RDW Plt Count MPV Neut % (Auto) Lymph % (Auto) Moore % (Auto) Eos % (Auto) Baso % (Auto) Neut # (Auto) Lymph # (Auto) Moore # (Auto) Eos # (Auto) Baso # (Auto) Neutrophils % (Manual) Band Neutrophils % Lymphocytes % (Manual) Monocytes % (Manual) Toxic Granulation Platelet Estimate Large Platelets Giant Platelets Hypochromasia (manual) Anisocytosis (manual) Ovalocytes Schistocytes pCO2 pO2 56 H HCO3 ABG pH ABG Total CO2 ABG O2 Saturation ABG Base Excess Baljeet Test ABG Potassium VBG pH 7.42 VBG pCO2 35 L VBG HCO3 23.7 VBG Total CO2 23.8 VBG O2 Sat (Calc) 95.4 H VBG Base Excess -1.3 L VBG Potassium 3.6 A-a O2 Difference Glucose 158 H Lactate 2.1 FiO2 32.0 Crit Value Called To david Castellon Crit Value Called By Kingsley steve Crit Value Read Back Y Blood Gas Notified Time 2007 Sodium 134.0 Potassium Chloride 106.0 Carbon Dioxide Anion Gap BUN Creatinine Est GFR ( Amer) Est GFR (Non-Af Amer) Random Glucose Lactic Acid 2.6 H Calcium Total Bilirubin AST ALT Alkaline Phosphatase Troponin I NT-Pro-B Natriuret Pep Total Protein Albumin Globulin Albumin/Globulin Ratio Amylase Lipase Arterial Blood Potassium Venous Blood Potassium 3.6 Urine Color Reny Urine Clarity Cloudy Urine pH 5.0 Ur Specific [place] 1.015 Urine Protein 30 Urine Glucose (UA) Neg Urine Ketones Negative Urine Blood Large Urine Nitrate Negative Urine Bilirubin Negative Urine Urobilinogen 0.2-1.0 Ur Leukocyte Esterase Mod Urine RBC (Auto) 1100 H Urine WBC Clumps (Auto) Few H Urine Microscopic WBC 53 H Ur Squamous Epith Cells 1 Ur Transition Epith Cell 1 Amorphous Sediment Moderate H Urine Bacteria Occ H 10/03/17 10/03/17 05:58 05:58 WBC 35.7 H D RBC 2.92 L Hgb 9.2 L D Hct 28.8 L MCV 98.6 MCH 31.4 H MCHC 31.9 L RDW 14.5 Plt Count 146 D MPV 9.5 Neut % (Auto) 94.5 H Lymph % (Auto) 0.5 L Moore % (Auto) 4.5 Eos % (Auto) 0.0 Baso % (Auto) 0.5 Neut # (Auto) 33.7 H Lymph # (Auto) 0.2 L Moore # (Auto) 1.6 H Eos # (Auto) 0.0 Baso # (Auto) 0.2 Neutrophils % (Manual) 84 H Band Neutrophils % 11 H* Lymphocytes % (Manual) 0 L Monocytes % (Manual) 5 Toxic Granulation Present Platelet Estimate Normal Large Platelets Present Giant Platelets Present Hypochromasia (manual) Slight Anisocytosis (manual) Ovalocytes Slight Schistocytes Slight pCO2 pO2 HCO3 ABG pH ABG Total CO2 ABG O2 Saturation ABG Base Excess Baljeet Test ABG Potassium VBG pH VBG pCO2 VBG HCO3 VBG Total CO2 VBG O2 Sat (Calc) VBG Base Excess VBG Potassium A-a O2 Difference Glucose Lactate FiO2 Crit Value Called To Crit Value Called By Crit Value Read Back Blood Gas Notified Time Sodium 137 Potassium 4.5 Chloride 106 Carbon Dioxide 20 L Anion Gap 16 BUN 33 H Creatinine 2.1 H Est GFR ( Amer) 27 Est GFR (Non-Af Amer) 23 Random Glucose 128 H Lactic Acid Calcium 8.1 L Total Bilirubin 0.8 AST 52 H D ALT 49 Alkaline Phosphatase 41 Troponin I NT-Pro-B Natriuret Pep Total Protein 5.6 L Albumin 3.1 L D Globulin 2.5 Albumin/Globulin Ratio 1.2 Amylase Lipase Arterial Blood Potassium Venous Blood Potassium Urine Color Urine Clarity Urine pH Ur Specific [place] Urine Protein Urine Glucose (UA) Urine Ketones Urine Blood Urine Nitrate Urine Bilirubin Urine Urobilinogen Ur Leukocyte Esterase Urine RBC (Auto) Urine WBC Clumps (Auto) Urine Microscopic WBC Ur Squamous Epith Cells Ur Transition Epith Cell Amorphous Sediment Urine Bacteria Assessment & Plan (1) Abdominal pain Status: Acute (2) Sepsis Status: Acute (3) GINNY (acute kidney injury) Status: Acute (4) Acute exacerbation of congestive heart failure Status: Acute (5) Bronchospasm with bronchitis, acute Status: Acute Priority: High (6) Chest pain Status: Acute - Assessment and Plan (Free Text) Assessment: 81 yo female with complex PMH including sever cardiomyopathy, s/p AICD COPD is admitted with severe sepsis, abd pain and evidence of UTI with possible passed stones and GINNY Broad spectrum IV has been ordered pending cultures Prognosis guarded from outset
--- NOTE | 2017-10-03 13:57 | CARD ---
APPROVED REPORT Date of service: 10/02/2017 EKG Measurement Heart [id number] DC 178P [id number] <Conclusion> Sinus tachycardia Nonspecific intraventricular conduction delay ST & T wave abnormality, consider anterolateral ischemia Abnormal ECG
[2017-10-03] MEDS: Sodium Chloride 0.9% 1,000 ML IV SCH (14:00)
[2017-10-03] MEDS: guaiFENesin 100 mg/5 ml Syrup UD PO PRN (14:05)
--- NOTE | 2017-10-03 16:39 | CP.PCM.CON ---
<Dmitriy Draper - Last Filed: 10/03/17 16:43> History of Present Illness - History of Present Illness History of Present Illness: 81 yo F with consulted for vaginal bleed. Per patient, she reports dark blood per vagina noticed with diaper changes starting on ; associated with diffuse abdominal pain. Symptoms have been present daily. Denies bright red blood per vagina. She reports weakness and dizziness when attempting to get out of bed. Of note, she reported that she had similar episodes 4 years ago with negative biopsy. HEAD OF IT: menses began at age 14, was regular. No history of pregnancies. 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 81 yo F with consulted for vaginal bleed. -h/h: 9.2/28.8 Recommend Transvaginal ultrasound in the AM to evaluate endometrial thickness. Recommend pt to f/u with Pack Train Driver on discharge. Sign off from Gyne standpoint. Thank you for this interesting consult. Please reconsult as needed. Case dw Dr. Monica Draper MD PGY2 Past Patient History - Infectious Disease Hx of Infectious Diseases: None - Tetanus Immunizations Tetanus Immunization: Unknown - Past Medical History & Family History Past Medical History?: Yes - Past Social History Smoking Status: Former Smoker - CARDIAC Hx Cardiac Disorders: Yes (arrhythmia, CHF, hypercholesterolemia, HTN, defibrillator, peripheral edema) - PULMONARY Hx Respiratory Disorders: Yes (bronchitis, COPD, pneumonia) - NEUROLOGICAL Hx Neurological Disorder: Yes (TIA) - HEENT Hx HEENT Problems: Yes - RENAL Hx Chronic Kidney Disease: No - ENDOCRINE/METABOLIC Hx Endocrine Disorders: Yes (hypothyroidism) - HEMATOLOGICAL/ONCOLOGICAL Hx Blood Disorders: Yes (breast ca) - INTEGUMENTARY Hx Dermatological Problems: No - MUSCULOSKELETAL/RHEUMATOLOGICAL Hx Musculoskeletal Disorders: Yes (arthritis) Hx Falls: Yes - GASTROINTESTINAL Hx Crohn's Disease: No Hx Diverticulitis: No Hx Gall Bladder Disease: No Hx Gastritis: No Hx Pancreatitis: No - GENITOURINARY/GYNECOLOGICAL Hx Genitourinary Disorders: No - PSYCHIATRIC Hx Psychophysiologic Disorder: No Hx Substance Use: No - SURGICAL HISTORY Hx Appendectomy: Yes Hx Carotid Endarterectomy: No Hx Cholecystectomy: Yes Hx Coronary Artery Bypass Graft: No Hx Coronary Stent: Yes Hx Mastectomy: Yes Hx Tonsillectomy: Yes - ANESTHESIA Hx Anesthesia: Yes Hx Anesthesia Reactions: No Hx Malignant Hyperthermia: No Meds Allergies/Adverse Reactions: Allergies Allergy/AdvReac Type Severity Reaction Status Date / Time No Known Allergies Allergy Verified 10/02/17 14:39 - Medications Medications: Current Medications Acetaminophen (Tylenol 325mg Tab) 650 mg PO Q6 PRN PRN Reason: Fever >100.4 F Last Admin: 10/03/17 00:07 Dose: 650 mg Acetaminophen (Tylenol 325mg Tab) 650 mg PO Q6 PRN PRN Reason: Pain, Mild (1-3) Last Admin: 10/03/17 13:58 Dose: 650 mg Albuterol/Ipratropium (Duoneb 3 Mg/0.5 Mg (3 Ml) Ud) 3 ml INH RQ4 [facility] Last Admin: 10/03/17 15:24 Dose: 3 ml Albuterol/Ipratropium (Duoneb 3 Mg/0.5 Mg (3 Ml) Ud) 3 ml INH RQ2 PRN PRN Reason: Shortness of Breath Amiodarone HCl (Cordarone) 100 mg PO DAILY [facility] Last Admin: 10/03/17 09:01 Dose: 100 mg Anastrozole (Arimidex 1 Mg Tab) 1 mg PO DAILY [facility] Last Admin: 10/03/17 08:49 Dose: 1 mg Ascorbic Acid (Vitamin C 500 Mg Tab) 500 mg PO DAILY [facility] Last Admin: 10/03/17 08:54 Dose: 500 mg Aspirin (Ecotrin) 81 mg PO DAILY [facility] Last Admin: 10/03/17 08:51 Dose: 81 mg Atorvastatin Calcium (Lipitor) 20 mg PO [facility] Last Admin: 10/02/17 23:08 Dose: Not Given Cholecalciferol (Vitamin D) 1,000 intlu PO DAILY [facility] Last Admin: 10/03/17 08:54 Dose: 1,000 intlu Docusate Sodium (Colace) 200 mg PO DAILY [facility] Last Admin: 10/03/17 08:49 Dose: 200 mg Guaifenesin (Robitussin) 100 mg PO Q6 PRN PRN Reason: Cough Last Admin: 10/03/17 14:05 Dose: 100 mg Piperacillin Sod/Tazobactam (Sod 2.25 gm/ Sodium Chloride) 100 mls @ 100 mls/ hr IVPB Q6 [facility] PRN Reason: Protocol Last Admin: 10/03/17 16:11 Dose: 100 mls/hr Sodium Chloride (Sodium Chloride 0.9%) 1,000 mls @ 60 mls/hr IV .[id number] [facility] Stop: 10/04/17 13:46 Last Admin: 10/03/17 14:00 Dose: 60 mls/hr Meropenem 1 gm/ Sodium (Chloride) 100 mls @ 100 mls/hr IVPB Q8 [facility] PRN Reason: Protocol Lactulose (Enulose) 20 gm PO DAILY PRN PRN Reason: Constipation Last Admin: 10/03/17 14:04 Dose: 20 gm Levothyroxine Sodium (Synthroid) 25 mcg PO DAILY@0630 [facility] Last Admin: 10/03/17 06:02 Dose: 25 mcg Losartan Potassium (Cozaar) 25 mg PO DAILY [facility] Last Admin: 10/03/17 08:51 Dose: Not Given Memantine (Namenda) 10 mg PO DAILY [facility] Last Admin: 10/03/17 08:56 Dose: 10 mg Metoprolol Succinate (Toprol Xl) 25 mg PO DAILY [facility] Last Admin: 10/03/17 08:37 Dose: Not Given Multivitamins/Minerals (Therapeutic-M Tab) 1 tab PO DAILY [facility] Last Admin: 10/03/17 08:55 Dose: 1 tab Potassium Chloride (K-Dur 20 Meq Er Tab) 20 meq PO DAILY [facility] Last Admin: 10/03/17 08:56 Dose: 20 meq Ranolazine (Ranexa) 500 mg PO DAILY [facility] Last Admin: 10/03/17 08:55 Dose: 500 mg Vitamin E (Vitamin E 400 Units Cap) 400 intlu PO DAILY [facility] Last Admin: 10/03/17 08:55 Dose: 400 intlu Results - Vital Signs Recent Vital Signs: Last Vital Signs Temp 98.4 F 10/03/17 15:55 Pulse 92 H 10/03/17 15:55 Resp 20 10/03/17 15:55 BP 134/74 10/03/17 15:55 Pulse Ox 95 10/03/17 15:55 - Labs Result Diagrams: 10/03/17 05:58 10/03/17 05:58 Labs: Laboratory Results - last 24 hr 10/02/17 10/02/17 10/02/17 16:48 18:20 19:59 WBC RBC Hgb Hct MCV MCH MCHC RDW Plt Count MPV Neut % (Auto) Lymph % (Auto) Mellette % (Auto) Eos % (Auto) Baso % (Auto) Neut # (Auto) Lymph # (Auto) [place] # (Auto) Eos # (Auto) Baso # (Auto) Neutrophils % (Manual) Band Neutrophils % Lymphocytes % (Manual) Monocytes % (Manual) Toxic Granulation Platelet Estimate Large Platelets Giant Platelets Hypochromasia (manual) Ovalocytes Schistocytes pCO2 34 L pO2 53 L 56 H HCO3 22.8 ABG pH 7.41 ABG Total CO2 22.6 ABG O2 Saturation 92.1 L ABG Base Excess -2.4 L Baljeet Test Yes ABG Potassium 3.9 VBG pH 7.42 VBG pCO2 35 L VBG HCO3 23.7 VBG Total CO2 23.8 VBG O2 Sat (Calc) 95.4 H VBG Base Excess -1.3 L VBG Potassium 3.6 A-a O2 Difference 133.0 Sodium 139.0 134.0 Chloride 107.0 106.0 Glucose 135 H 158 H Lactate 4.0 H* 2.1 FiO2 32.0 32.0 Crit Value Called To david Castellon Crit Value Called By Kingsley steve Crit Value Read Back Y Blood Gas Notified Time 2007 Potassium Carbon Dioxide Anion Gap BUN Creatinine Est GFR ( Amer) Est GFR (Non-Af Amer) Random Glucose Lactic Acid Calcium Total Bilirubin AST ALT Alkaline Phosphatase Total Protein Albumin Globulin Albumin/Globulin Ratio Arterial Blood Potassium 3.9 Venous Blood Potassium 3.6 Urine Color Reny Urine Clarity Cloudy Urine pH 5.0 Ur Specific [place] 1.015 Urine Protein 30 Urine Glucose (UA) Neg Urine Ketones Negative Urine Blood Large Urine Nitrate Negative Urine Bilirubin Negative Urine Urobilinogen 0.2-1.0 Ur Leukocyte Esterase Mod Urine RBC (Auto) 1100 H Urine WBC Clumps (Auto) Few H Urine Microscopic WBC 53 H Ur Squamous Epith Cells 1 Ur Transition Epith Cell 1 Amorphous Sediment Moderate H Urine Bacteria Occ H 10/02/17 10/03/17 10/03/17 22:00 05:58 05:58 WBC 35.7 H D RBC 2.92 L Hgb 9.2 L D Hct 28.8 L MCV 98.6 MCH 31.4 H MCHC 31.9 L RDW 14.5 Plt Count 146 D MPV 9.5 Neut % (Auto) 94.5 H Lymph % (Auto) 0.5 L Mellette % (Auto) 4.5 Eos % (Auto) 0.0 Baso % (Auto) 0.5 Neut # (Auto) 33.7 H Lymph # (Auto) 0.2 L Mellette # (Auto) 1.6 H Eos # (Auto) 0.0 Baso # (Auto) 0.2 Neutrophils % (Manual) 84 H Band Neutrophils % 11 H* Lymphocytes % (Manual) 0 L Monocytes % (Manual) 5 Toxic Granulation Present Platelet Estimate Normal Large Platelets Present Giant Platelets Present Hypochromasia (manual) Slight Ovalocytes Slight Schistocytes Slight pCO2 pO2 HCO3 ABG pH ABG Total CO2 ABG O2 Saturation ABG Base Excess Baljeet Test ABG Potassium VBG pH VBG pCO2 VBG HCO3 VBG Total CO2 VBG O2 Sat (Calc) VBG Base Excess VBG Potassium A-a O2 Difference Sodium 137 Chloride 106 Glucose Lactate FiO2 Crit Value Called To Crit Value Called By Crit Value Read Back Blood Gas Notified Time Potassium 4.5 Carbon Dioxide 20 L Anion Gap 16 BUN 33 H Creatinine 2.1 H Est GFR ( Amer) 27 Est GFR (Non-Af Amer) 23 Random Glucose 128 H Lactic Acid 2.6 H Calcium 8.1 L Total Bilirubin 0.8 AST 52 H D ALT 49 Alkaline Phosphatase 41 Total Protein 5.6 L Albumin 3.1 L D Globulin 2.5 Albumin/Globulin Ratio 1.2 Arterial Blood Potassium Venous Blood Potassium Urine Color Urine Clarity Urine pH Ur Specific [place] Urine Protein Urine Glucose (UA) Urine Ketones Urine Blood Urine Nitrate Urine Bilirubin Urine Urobilinogen Ur Leukocyte Esterase Urine RBC (Auto) Urine WBC Clumps (Auto) Urine Microscopic WBC Ur Squamous Epith Cells Ur Transition Epith Cell Amorphous Sediment Urine Bacteria <Ziggy Anderson - Last Filed: 10/04/17 10:51> History of Present Illness - History of Present Illness History of Present Illness: OB Hospitalist - pt seen. No VB noted. TVS for endo thickness. Continue medical management. May be seen as outpatient with [employer]. Case discussed with Dr Clark Meds - Medications Medications: Current Medications Acetaminophen (Tylenol 325mg Tab) 650 mg PO Q6 PRN PRN Reason: Fever >100.4 F Last Admin: 10/03/17 00:07 Dose: 650 mg Acetaminophen (Tylenol 325mg Tab) 650 mg PO Q6 PRN PRN Reason: Pain, Mild (1-3) Last Admin: 10/03/17 13:58 Dose: 650 mg Albuterol/Ipratropium (Duoneb 3 Mg/0.5 Mg (3 Ml) Ud) 3 ml INH RQ4 [facility] Last Admin: 10/04/17 08:16 Dose: 3 ml Albuterol/Ipratropium (Duoneb 3 Mg/0.5 Mg (3 Ml) Ud) 3 ml INH RQ2 PRN PRN Reason: Shortness of Breath Amiodarone HCl (Cordarone) 100 mg PO DAILY [facility] Last Admin: 10/04/17 09:27 Dose: 100 mg Anastrozole (Arimidex 1 Mg Tab) 1 mg PO DAILY [facility] Last Admin: 10/04/17 09:31 Dose: 1 mg Ascorbic Acid (Vitamin C 500 Mg Tab) 500 mg PO DAILY [facility] Last Admin: 10/04/17 09:28 Dose: 500 mg Aspirin (Ecotrin) 81 mg PO DAILY [facility] Last Admin: 10/04/17 09:30 Dose: 81 mg Atorvastatin Calcium (Lipitor) 20 mg PO HS [facility] Last Admin: 10/03/17 22:10 Dose: 20 mg Bisacodyl (Dulcolax) 10 mg [place] DAILY PRN PRN Reason: Constipation Last Admin: 10/03/17 17:40 Dose: 10 mg Cholecalciferol (Vitamin D) 1,000 intlu PO DAILY [facility] Last Admin: 10/04/17 09:28 Dose: 1,000 intlu Docusate Sodium (Colace) 200 mg PO DAILY [facility] Last Admin: 10/04/17 09:26 Dose: 200 mg Guaifenesin (Robitussin) 100 mg PO Q6 PRN PRN Reason: Cough Last Admin: 10/04/17 06:54 Dose: 100 mg Piperacillin Sod/Tazobactam (Sod 2.25 gm/ Sodium Chloride) 100 mls @ 100 mls/ hr IVPB Q6 [facility] PRN Reason: Protocol Last Admin: 10/04/17 09:25 Dose: 100 mls/hr Sodium Chloride (Sodium Chloride 0.9%) 1,000 mls @ 60 mls/hr IV .[id number] [facility] Stop: 10/04/17 13:46 Last Admin: 10/04/17 06:57 Dose: Not Given Meropenem 1 gm/ Sodium (Chloride) 100 mls @ 100 mls/hr IVPB Q8 [facility] PRN Reason: Protocol Last Admin: 10/04/17 09:25 Dose: 100 mls/hr Lactulose (Enulose) 20 gm PO DAILY PRN PRN Reason: Constipation Last Admin: 10/03/17 14:04 Dose: 20 gm Levothyroxine Sodium (Synthroid) 25 mcg PO DAILY@0630 [facility] Last Admin: 10/04/17 06:47 Dose: 25 mcg Losartan Potassium (Cozaar) 25 mg PO DAILY [facility] Last Admin: 10/04/17 09:47 Dose: Not Given Memantine (Namenda) 10 mg PO DAILY [facility] Last Admin: 10/04/17 09:30 Dose: 10 mg Metoprolol Succinate (Toprol Xl) 25 mg PO DAILY [facility] Last Admin: 10/04/17 09:29 Dose: 25 mg Multivitamins/Minerals (Therapeutic-M Tab) 1 tab PO DAILY [facility] Last Admin: 10/04/17 09:27 Dose: 1 tab Potassium Chloride (K-Dur 20 Meq Er Tab) 20 meq PO DAILY [facility] Last Admin: 10/04/17 09:47 Dose: Not Given Ranolazine (Ranexa) 500 mg PO DAILY [facility] Last Admin: 10/04/17 09:26 Dose: 500 mg Vitamin E (Vitamin E 400 Units Cap) 400 intlu PO DAILY [facility] Last Admin: 10/04/17 09:28 Dose: 400 intlu Results - Vital Signs Recent Vital Signs: Last Vital Signs Temp 98 F 10/04/17 07:53 Pulse 92 H 10/04/17 09:29 Resp 18 10/04/17 07:53 BP 123/76 10/04/17 09:29 Pulse Ox 94 L 10/04/17 07:53 - Labs Result Diagrams: 10/04/17 05:31 10/04/17 05:31 Labs: Laboratory Results - last 24 hr 10/03/17 10/04/17 10/04/17 08:20 05:31 05:31 WBC 30.0 H RBC 3.01 L Hgb 9.7 L Hct 29.1 L MCV 96.6 D MCH 32.1 H MCHC 33.2 RDW 14.6 H Plt Count 132 MPV 10.1 Neut % (Auto) 92.9 H Lymph % (Auto) 1.8 L Mellette % (Auto) 4.5 Eos % (Auto) 0.7 Baso % (Auto) 0.1 Neut # (Auto) 27.9 H Lymph # (Auto) 0.5 L [place] # (Auto) 1.3 H Eos # (Auto) 0.2 Baso # (Auto) 0.0 Neutrophils % (Manual) 88 H Band Neutrophils % 10 H Lymphocytes % (Manual) 1 L Monocytes % (Manual) 1 Platelet Estimate Normal Large Platelets Present Hypochromasia (manual) Slight Sodium 139 Potassium 4.7 Chloride 107 Carbon Dioxide 22 Anion Gap 15 BUN 39 H Creatinine 2.2 H Est GFR ( Amer) 26 Est GFR (Non-Af Amer) 21 Random Glucose 135 H Calcium 7.9 L Total Bilirubin 0.6 AST 58 H ALT 57 H Alkaline Phosphatase 50 Total Protein 6.0 L Albumin 3.1 L Globulin 2.9 Albumin/Globulin Ratio 1.1 Procalcitonin 58.23 H
[2017-10-03] MEDS: Meropenem 1 GM in Sodium Chloride 0.9% 100 ML IVPB SCH (17:39)
[2017-10-03] MEDS ORDERED: Linezolid 600 mg in D5W 300 ml 600 MG/300 ML BAG IVPB SCH (21:00)
[2017-10-04] MEDS: Albuterol-Ipratrop 3 mg / 0.5 (3 ml) UD INH SCH ×4 (00:48→11:23)
[2017-10-04] MEDS: Meropenem 1 GM in Sodium Chloride 0.9% 100 ML IVPB SCH ×3 (00:54→17:07)
[2017-10-04 06:37] LABS: BASO % 0.1 % (0.0-2.0); EOS # 0.2 K/uL (0.0-0.7); EOS % 0.7 % (0.0-4.0); HEMOGLOBIN 9.7 g/dL (12.0-16.0); LYMPH # 0.5 K/uL (1.0-4.3); LYMPH % 1.8 % (20.0-40.0); MEAN CELL VOLUME 96.6 fl (81.0-99.0); MEAN CORPUSCULAR HEMOGLOBIN 32.1 pg (27.0-31.0); MEAN CORPUSCULAR HGB CONC 33.2 g/dL (33.0-37.0); MEAN PLATELET VOLUME 10.1 fl (7.2-11.7); MONO # 1.3 K/uL (0.0-0.8); MONO % 4.5 % (0.0-10.0); NEUT # 27.9 K/uL (1.8-7.0); NEUT % 92.9 % (50.0-75.0); PLATELET COUNT 132 K/uL (130-400); RBC 3.01 Mil/uL (3.80-5.20); RED CELL DISTRIBUTION WIDTH 14.6 % (11.5-14.5)
[2017-10-04] MEDS: Levothyroxine 25 MCG TAB PO SCH (06:47)
[2017-10-04] MEDS: guaiFENesin 100 mg/5 ml Syrup UD PO PRN (06:54)
[2017-10-04] MEDS: Sodium Chloride 0.9% 1,000 ML IV SCH (06:57)
[2017-10-04 07:02] LABS: ALB/GLOB RATIO 1.1 (1.0-2.1); ALBUMIN 3.1 g/dL (3.5-5.0); CALCIUM 7.9 mg/dL (8.4-10.2)
[2017-10-04] MEDS: Ranolazine 500 mg Extended Release Tablets PO SCH (09:26)
[2017-10-04] MEDS: Multivitamin With Minerals Tab PO SCH (09:27)
[2017-10-04] MEDS: Cholecalciferol 1,000 INTLU TAB PO SCH (09:28)
[2017-10-04] MEDS: Metoprolol Succinate 25 mg XL Tab PO SCH (09:29)
[2017-10-04] MEDS: Potassium Chloride 20 mEq ER Tab PO SCH ×2 (09:40→09:47)
[2017-10-04 10:30] LABS: BANDS 10 % (0-2); LYMPHOCYTE 1 % (20-50); MONOCYTE 1 % (0-10); NEUTROPHIL 88 % (42-75); TOTAL CELLS COUNTED 100
--- NOTE | 2017-10-04 10:30 | CP.PCM.PN ---
Subjective - Date & Time of Evaluation Date of Evaluation: 10/04/17 Time of Evaluation: 10:30 - Subjective Subjective: Seated in a bedside chair presently. Claims to feel slightly dyspneic at the present time. Denies any chest pain. Rare cough w/o sputum expectoration. Did have one sputum specimen obtained on admission and sent for culture. Urine gram stain shows Gm negative rods. ID pending. She has remained afebrile since one day after admission. On exam there are scattered sonorous rhonchi bilaterally in dependant zones. Few medium rales are present in the left lower lobe as well. No audible wheezes or bronchial breath sounds. Heart sounds remain regular with systolic murmur unchanged at LSB. No dependant edema or cyanosis. ID following and addressing antibiotic coverage. Maintain current medical regimen. Continue ipratropium vial nebulizer on schedule. Objective - Vital Signs/Intake and Output Vital Signs (last 24 hours): Temp Pulse Resp BP Pulse Ox 98 F 92 H 18 123/76 94 L 10/04/17 07:53 10/04/17 09:29 10/04/17 07:53 10/04/17 09:29 10/04/17 07:53 - Medications Medications: Current Medications Acetaminophen (Tylenol 325mg Tab) 650 mg PO Q6 PRN PRN Reason: Fever >100.4 F Last Admin: 10/03/17 00:07 Dose: 650 mg Acetaminophen (Tylenol 325mg Tab) 650 mg PO Q6 PRN PRN Reason: Pain, Mild (1-3) Last Admin: 10/03/17 13:58 Dose: 650 mg Albuterol/Ipratropium (Duoneb 3 Mg/0.5 Mg (3 Ml) Ud) 3 ml INH RQ4 [facility] Last Admin: 10/04/17 08:16 Dose: 3 ml Albuterol/Ipratropium (Duoneb 3 Mg/0.5 Mg (3 Ml) Ud) 3 ml INH RQ2 PRN PRN Reason: Shortness of Breath Amiodarone HCl (Cordarone) 100 mg PO DAILY [facility] Last Admin: 10/04/17 09:27 Dose: 100 mg Anastrozole (Arimidex 1 Mg Tab) 1 mg PO DAILY [facility] Last Admin: 10/04/17 09:31 Dose: 1 mg Ascorbic Acid (Vitamin C 500 Mg Tab) 500 mg PO DAILY [facility] Last Admin: 10/04/17 09:28 Dose: 500 mg Aspirin (Ecotrin) 81 mg PO DAILY [facility] Last Admin: 10/04/17 09:30 Dose: 81 mg Atorvastatin Calcium (Lipitor) 20 mg PO HS [facility] Last Admin: 10/03/17 22:10 Dose: 20 mg Bisacodyl (Dulcolax) 10 mg [place] DAILY PRN PRN Reason: Constipation Last Admin: 10/03/17 17:40 Dose: 10 mg Cholecalciferol (Vitamin D) 1,000 intlu PO DAILY [facility] Last Admin: 10/04/17 09:28 Dose: 1,000 intlu Docusate Sodium (Colace) 200 mg PO DAILY [facility] Last Admin: 10/04/17 09:26 Dose: 200 mg Guaifenesin (Robitussin) 100 mg PO Q6 PRN PRN Reason: Cough Last Admin: 10/04/17 06:54 Dose: 100 mg Piperacillin Sod/Tazobactam (Sod 2.25 gm/ Sodium Chloride) 100 mls @ 100 mls/ hr IVPB Q6 [facility] PRN Reason: Protocol Last Admin: 10/04/17 09:25 Dose: 100 mls/hr Sodium Chloride (Sodium Chloride 0.9%) 1,000 mls @ 60 mls/hr IV .[id number] [facility] Stop: 10/04/17 13:46 Last Admin: 10/04/17 06:57 Dose: Not Given Meropenem 1 gm/ Sodium (Chloride) 100 mls @ 100 mls/hr IVPB Q8 [facility] PRN Reason: Protocol Last Admin: 10/04/17 09:25 Dose: 100 mls/hr Lactulose (Enulose) 20 gm PO DAILY PRN PRN Reason: Constipation Last Admin: 10/03/17 14:04 Dose: 20 gm Levothyroxine Sodium (Synthroid) 25 mcg PO DAILY@0630 [facility] Last Admin: 10/04/17 06:47 Dose: 25 mcg Losartan Potassium (Cozaar) 25 mg PO DAILY [facility] Last Admin: 10/04/17 09:47 Dose: Not Given Memantine (Namenda) 10 mg PO DAILY [facility] Last Admin: 10/04/17 09:30 Dose: 10 mg Metoprolol Succinate (Toprol Xl) 25 mg PO DAILY [facility] Last Admin: 10/04/17 09:29 Dose: 25 mg Multivitamins/Minerals (Therapeutic-M Tab) 1 tab PO DAILY [facility] Last Admin: 10/04/17 09:27 Dose: 1 tab Potassium Chloride (K-Dur 20 Meq Er Tab) 20 meq PO DAILY [facility] Last Admin: 10/04/17 09:47 Dose: Not Given Ranolazine (Ranexa) 500 mg PO DAILY [facility] Last Admin: 10/04/17 09:26 Dose: 500 mg Vitamin E (Vitamin E 400 Units Cap) 400 intlu PO DAILY [facility] Last Admin: 10/04/17 09:28 Dose: 400 intlu - Labs Labs: 10/04/17 05:31 10/04/17 05:31 Assessment and Plan (1) Abdominal pain Status: Acute (2) Sepsis Status: Acute (3) Pneumonia Status: Acute (4) Hydroureteronephrosis Status: Acute (5) Suspected urinary tract infection Status: Acute (6) Chronic constipation Status: Chronic
[2017-10-04 10:31] LABS: HYPOCHROMIC SLIGHT; LARGE PLATELETS PRESENT; PLATELET ESTIMATE NORMAL (NORMAL)
--- NOTE | 2017-10-04 11:13 | CP.PCM.PN ---
Subjective - Date & Time of Evaluation Date of Evaluation: 10/04/17 Time of Evaluation: 08:00 - Subjective Subjective: weak and SOB less abd pain switched to Merrem Objective - Vital Signs/Intake and Output Vital Signs (last 24 hours): Temp Pulse Resp BP Pulse Ox 98 F 92 H 18 123/76 94 L 10/04/17 07:53 10/04/17 09:29 10/04/17 07:53 10/04/17 09:29 10/04/17 07:53 - Medications Medications: Current Medications Acetaminophen (Tylenol 325mg Tab) 650 mg PO Q6 PRN PRN Reason: Fever >100.4 F Last Admin: 10/03/17 00:07 Dose: 650 mg Acetaminophen (Tylenol 325mg Tab) 650 mg PO Q6 PRN PRN Reason: Pain, Mild (1-3) Last Admin: 10/03/17 13:58 Dose: 650 mg Albuterol/Ipratropium (Duoneb 3 Mg/0.5 Mg (3 Ml) Ud) 3 ml INH RQ4 [facility] Last Admin: 10/04/17 08:16 Dose: 3 ml Albuterol/Ipratropium (Duoneb 3 Mg/0.5 Mg (3 Ml) Ud) 3 ml INH RQ2 PRN PRN Reason: Shortness of Breath Amiodarone HCl (Cordarone) [address] [facility] Last Admin: 10/04/17 09:27 Dose: 100 mg Anastrozole (Arimidex 1 Mg Tab) [address] [facility] Last Admin: 10/04/17 09:31 Dose: 1 mg Ascorbic Acid (Vitamin C 500 Mg Tab) [address] [facility] Last Admin: 10/04/17 09:28 Dose: 500 mg Aspirin (Ecotrin) [address] [facility] Last Admin: 10/04/17 09:30 Dose: 81 mg Atorvastatin Calcium (Lipitor) [address] [facility] Last Admin: 10/03/17 22:10 Dose: 20 mg Bisacodyl (Dulcolax) 10 mg [place] DAILY PRN PRN Reason: Constipation Last Admin: 10/03/17 17:40 Dose: 10 mg Cholecalciferol (Vitamin D) 1,[address] [facility] Last Admin: 10/04/17 09:28 Dose: 1,000 intlu Docusate Sodium (Colace) [address] [facility] Last Admin: 10/04/17 09:26 Dose: 200 mg Guaifenesin (Robitussin) 100 mg PO Q6 PRN PRN Reason: Cough Last Admin: 10/04/17 06:54 Dose: 100 mg Sodium Chloride (Sodium Chloride 0.9%) 1,000 mls @ 60 mls/hr IV .[id number] [facility] Stop: 10/04/17 13:46 Last Admin: 10/04/17 06:57 Dose: Not Given Meropenem 1 gm/ Sodium (Chloride) 100 mls @ 100 mls/hr IVPB Q8 [facility] PRN Reason: Protocol Last Admin: 10/04/17 09:25 Dose: 100 mls/hr Lactulose (Enulose) 20 gm PO DAILY PRN PRN Reason: Constipation Last Admin: 10/03/17 14:04 Dose: 20 gm Levothyroxine Sodium (Synthroid) 25 mcg PO DAILY@0630 [facility] Last Admin: 10/04/17 06:47 Dose: 25 mcg Losartan Potassium (Cozaar) [address] [facility] Last Admin: 10/04/17 09:47 Dose: Not Given Memantine (Namenda) [address] [facility] Last Admin: 10/04/17 09:30 Dose: 10 mg Metoprolol Succinate (Toprol Xl) [address] [facility] Last Admin: 10/04/17 09:29 Dose: 25 mg Multivitamins/Minerals (Therapeutic-M Tab) [address] [facility] Last Admin: 10/04/17 09:27 Dose: 1 tab Potassium Chloride (K-Dur 20 Meq Er Tab) [address] [facility] Last Admin: 10/04/17 09:47 Dose: Not Given Ranolazine (Ranexa) [address] [facility] Last Admin: 10/04/17 09:26 Dose: 500 mg Vitamin E (Vitamin E 400 Units Cap) [address] [facility] Last Admin: 10/04/17 09:28 Dose: 400 intlu - Labs Labs: 10/04/17 05:31 10/04/17 05:31 - Constitutional Appears: Non-toxic, Chronically Ill - Head Exam Head Exam: NORMOCEPHALIC - Eye Exam Eye Exam: PERRL - ENT Exam ENT Exam: Mucous Membranes Dry - Neck Exam Neck Exam: absent: Lymphadenopathy - Respiratory Exam Respiratory Exam: Decreased Breath Sounds, Prolonged Expiratory Phase, Rhonchi - Cardiovascular Exam Cardiovascular Exam: REGULAR RHYTHM, +S1, +S2 - GI/Abdominal Exam GI & Abdominal Exam: Distended, Soft. absent: Tenderness - Rectal Exam Rectal Exam: Deferred - Exam Exam: NORMAL INSPECTION Assessment and Plan (1) Abdominal pain Status: Acute (2) Sepsis Status: Acute (3) GINNY (acute kidney injury) Status: Acute (4) Acute exacerbation of congestive heart failure Status: Acute (5) Bronchospasm with bronchitis, acute Status: Acute (6) Chest pain Status: Acute - Assessment and Plan (Free Text) Assessment: add merrem await cultures
[2017-10-04] MEDS: Ipratropium 0.02% Inhal Soln (0.5 mg/2.5 ml) UD IH SCH ×3 (12:38→19:15)
--- NOTE | 2017-10-04 14:18 | CP.PCM.PN ---
Subjective - Date & Time of Evaluation Date of Evaluation: 10/04/17 Time of Evaluation: 10:00 - Subjective Subjective: Patient was seen and examined this morning. Reports continued shortness of breath and cough today but otherwise feels better. No new complaints. Denies headache, chest pain, n/v/d/f/c. Objective - Vital Signs/Intake and Output Vital Signs (last 24 hours): Temp Pulse Resp BP Pulse Ox 98.1 F 97 H 18 114/73 97 10/04/17 12:26 10/04/17 12:26 10/04/17 12:26 10/04/17 12:26 10/04/17 12:26 - Medications Medications: Current Medications Acetaminophen (Tylenol 325mg Tab) 650 mg PO Q6 PRN PRN Reason: Fever >100.4 F Last Admin: 10/03/17 00:07 Dose: 650 mg Acetaminophen (Tylenol 325mg Tab) 650 mg PO Q6 PRN PRN Reason: Pain, Mild (1-3) Last Admin: 10/03/17 13:58 Dose: 650 mg Albuterol Sulfate (Albuterol 0.083% Inhal Shu (2.5 Mg/3 Ml) Ud) 2.5 mg INH RQ4 PRN PRN Reason: Shortness of Breath Amiodarone HCl (Cordarone) 100 mg PO DAILY [facility] Last Admin: 10/04/17 09:27 Dose: 100 mg Anastrozole (Arimidex 1 Mg Tab) 1 mg PO DAILY [facility] Last Admin: 10/04/17 09:31 Dose: 1 mg Ascorbic Acid (Vitamin C 500 Mg Tab) 500 mg PO DAILY [facility] Last Admin: 10/04/17 09:28 Dose: 500 mg Aspirin (Ecotrin) 81 mg PO DAILY [facility] Last Admin: 10/04/17 09:30 Dose: 81 mg Atorvastatin Calcium (Lipitor) 20 mg PO HS [facility] Last Admin: 10/03/17 22:10 Dose: 20 mg Bisacodyl (Dulcolax) [address] DAILY PRN PRN Reason: Constipation Last Admin: 10/03/17 17:40 Dose: 10 mg Cholecalciferol (Vitamin D) 1,000 intlu PO DAILY [facility] Last Admin: 10/04/17 09:28 Dose: 1,000 intlu Docusate Sodium (Colace) 200 mg PO DAILY [facility] Last Admin: 10/04/17 09:26 Dose: 200 mg Guaifenesin (Robitussin) 100 mg PO Q6 PRN PRN Reason: Cough Last Admin: 10/04/17 06:54 Dose: 100 mg Meropenem 1 gm/ Sodium (Chloride) 100 mls @ 100 mls/hr IVPB Q8 YUVAL PRN Reason: Protocol Last Admin: 10/04/17 09:25 Dose: 100 mls/hr Ipratropium [place] (Atrovent) 0.5 mg IH RQID [facility] Lactulose (Enulose) 20 gm PO DAILY PRN PRN Reason: Constipation Last Admin: 10/03/17 14:04 Dose: 20 gm Levothyroxine Sodium (Synthroid) 25 mcg PO DAILY@0630 [facility] Last Admin: 10/04/17 06:47 Dose: 25 mcg Losartan Potassium (Cozaar) 25 mg PO DAILY [facility] Last Admin: 10/04/17 09:47 Dose: Not Given Memantine (Namenda) 10 mg PO DAILY [facility] Last Admin: 10/04/17 09:30 Dose: 10 mg Metoprolol Succinate (Toprol Xl) 25 mg PO DAILY [facility] Last Admin: 10/04/17 09:29 Dose: 25 mg Multivitamins/Minerals (Therapeutic-M Tab) 1 tab PO DAILY [facility] Last Admin: 10/04/17 09:27 Dose: 1 tab Potassium Chloride (K-Dur 20 Meq Er Tab) 20 meq PO DAILY [facility] Last Admin: 10/04/17 09:47 Dose: Not Given Ranolazine (Ranexa) 500 mg PO DAILY [facility] Last Admin: 10/04/17 09:26 Dose: 500 mg Vitamin E (Vitamin E 400 Units Cap) 400 intlu PO DAILY [facility] Last Admin: 10/04/17 09:28 Dose: 400 intlu - Labs Labs: 10/04/17 05:31 10/04/17 05:31 - Additional Findings Additional findings: Physical exam: Constitutional- cooperative, awake, alert, more coherent, less toxic appearing today Head- NCAT, PERRL Eye- PERRL, EOMI ENT- normal exam, MMM. Neck- normal inspection, supple, no JVD Respiratory- CTAB, occ wheezing Cardiovascular- RRR, +S1, +S2 no MRG GI/Abdominal- normal bowel sounds, soft, no mass, no hsm Skin- warm, dry Extremities Exam- normal capillary refill, normal inspection Neurological Exam- alert, awake, oriented Psych- normal mood, normal affect Assessment and Plan - Assessment and Plan (Free Text) Plan: This is a 81 female with a history of cardiomyopathy EF 25-30% , s/p AICD, anxiety, pulmonary hypertension, COPD ( ex smoker ), HTN, Dyslipidemia, Hypothyroidism ,lower back pain , sciatica, osteoporosis, RA, CKD stage III, presenting to the ED with the complaint of abdominal pain, subsequently admitted for sepsis secondary to UTI as well as left lower lobe pneumonia, now hemodynamically stable on telemetry. 1) Sepsis secondary to UTI and left lower lobe pneumonia - Telemetry admission - Lactic acid 4 -> 1.5 this morning, but patient's WBC elevated to 35.7 this morning - Consultation with Dr. Rodarte appreciated - Consultation with Dr. West- Started Merrem until cultures come back - F/u Blood, urine cultures- Gram negative rods in BCX and UCX, likely E. coli, awaiting sensitivity - Sputum CX - Procalcitonin 58.23 - CT abd/pelvis- mild left hydroureteronephrosis without evidence of obstructing calculus. Left lower lobe infiltrate, r/o pneumonia 2) Left lower lobe pneumonia - f/u sputum cx - duonebs - Montior respiratory status 3) Systolic and diastolic CHF,chronic , compensated Pulmonary HTN, severe - EF 25% - Consultation with Dr. Da Silva- states patient is at baseline at present - Caution with hydration - Hold Lasix for now due to sepsis - patient normovolemic at this time - monitor - ASA - Restart Sildenafil later if BP holds - Amiodarone 4) Acute on chronic kidney disease stage III - Caution with antibiotics causing nephrotoxicity - Stabilized, 5) COPD - Chronic - Duoneb changed to scheduled q4 hours and PRN - Dr. Gomez consult 6) Hypothyroidism Chronic Continue Levothyroxine 7) DVT prophylaxis - Heparin
[2017-10-04] MEDS ORDERED: Oxycodone/Acetaminophen 5/325 mg Tab PO ONE (21:39)
[2017-10-04] MEDS ORDERED: POLYETHYLENE GLYCOL 3350 17 GM/Dose PACKET PO STA (22:38)
[2017-10-05] MEDS: Meropenem 1 GM in Sodium Chloride 0.9% 100 ML IVPB SCH ×3 (00:09→17:18)
[2017-10-05] MEDS: Levothyroxine 25 MCG TAB PO SCH (05:30)
[2017-10-05 06:10] LABS: BASO % 0.1 % (0.0-2.0); EOS # 0.1 K/uL (0.0-0.7); EOS % 0.2 % (0.0-4.0); HEMOGLOBIN 10.3 g/dL (12.0-16.0); LYMPH # 0.9 K/uL (1.0-4.3); LYMPH % 3.1 % (20.0-40.0); MEAN CELL VOLUME 97.8 fl (81.0-99.0); MEAN CORPUSCULAR HEMOGLOBIN 31.3 pg (27.0-31.0); MONO # 1.6 K/uL (0.0-0.8); MONO % 5.4 % (0.0-10.0); NEUT # 26.9 K/uL (1.8-7.0); NEUT % 91.2 % (50.0-75.0); PLATELET COUNT 163 K/uL (130-400); RBC 3.29 Mil/uL (3.80-5.20); RED CELL DISTRIBUTION WIDTH 14.6 % (11.5-14.5); WHITE BLOOD COUNT 29.5 K/uL (4.8-10.8)
[2017-10-05 06:38] LABS: CALCIUM 8.5 mg/dL (8.4-10.2)
[2017-10-05] MEDS: Ipratropium 0.02% Inhal Soln (0.5 mg/2.5 ml) UD IH SCH ×4 (08:00→19:47)
--- NOTE | 2017-10-05 09:36 | PQF ---
PROVIDER RESPONSE TEXT: Left lower lobe pneumonia, probably bacterial, organism undetermined REVIEWER QUERY TEXT: Pneumonia Specificity Pneumonia is documented in the Medical Record. Please specify the type of pneumonia and the causative organism (includes probable or suspected) : if known Such as: Type: -- Aspiration pneumonia (please also specify the aspirate) - Please indicate if the aspiration is postprocedure -- Bacterial (please document suspected or probable organism) -- Bronchopneumonia (please document suspected or probable organism) -- Interstitial pneumonia -- Organizing pneumonia / BOOP -- Pneumonia with influenza, rebekah flu, or H1N1 flu -- RSV -- Tuberculosis, pulmonary -- Viral -- Other, please specify 10/[address]:IMPRESSION: Mild left hydroureteronephrosis without evidence of obstructing calculus. Consider the possibility of a recently passed urinary calculus. Left lower lobe infiltrate. Rule out pneumonia 10/[address]:IMPRESSION: No acute infiltrate sputum culture: report pending blood culture :report pending 10/03 Hospitalist progress note: Renal function worsened overnight, 28/1.6 to 33/2.1, likely due to Va ncomycin and Zosyn - Will discuss changing antibiotics to less nephrotoxic ones with Dr. Brett trent 10/04Hospitalist progress note: admitted for sepsis secondary to UTI as well as left lower lobe pneum onia -Merrem, O2 NC,nebs The patient's Clinical Indicators include: xxxxx Query created by: Isa Davis on 10/05/2017 9:22 AM Electronically signed by: Lucila Bajwa MD 10/05/2017 9:33 AM
[2017-10-05] MEDS: Potassium Chloride 20 mEq ER Tab PO SCH (09:45)
[2017-10-05] MEDS ORDERED: Sod Polystyrene Sulf 15 gm/60 ml Susp PO ONE (09:45)
[2017-10-05] MEDS: Metoprolol Succinate 25 mg XL Tab PO SCH (09:46)
[2017-10-05] MEDS: Cholecalciferol 1,000 INTLU TAB PO SCH (09:47)
[2017-10-05] MEDS: Ranolazine 500 mg Extended Release Tablets PO SCH (09:48)
[2017-10-05] MEDS: Multivitamin With Minerals Tab PO SCH (09:48)
--- NOTE | 2017-10-05 09:49 | CP.PCM.PN ---
Subjective - Date & Time of Evaluation Date of Evaluation: 10/05/17 Time of Evaluation: 09:49 - Subjective Subjective: Congested, more SOB today. Klebsiella pneumoniae in urine and blood. Case discussed with hospitalist. Scattered rhonchi and scattered expiratory wheezes heard. Has remained afebrile, oxygenation okay. Medication added, inhaled steroid. Continue antibiotic rx. Objective - Vital Signs/Intake and Output Vital Signs (last 24 hours): Temp Pulse Resp BP Pulse Ox 97.5 F L 95 H 18 142/87 98 10/05/17 08:00 10/05/17 08:00 10/05/17 08:00 10/05/17 08:00 10/05/17 08:00 Intake and Output: 10/04/17 10/05/17 23:59 11:59 Intake Total 300 100 Output Total 100 Balance 300 0 - Medications Medications: Current Medications Acetaminophen (Tylenol 325mg Tab) 650 mg PO Q6 PRN PRN Reason: Fever >100.4 F Last Admin: 10/03/17 00:07 Dose: 650 mg Acetaminophen (Tylenol 325mg Tab) 650 mg PO Q6 PRN PRN Reason: Pain, Mild (1-3) Last Admin: 10/04/17 19:54 Dose: 650 mg Albuterol Sulfate (Albuterol 0.083% Inhal Shu (2.5 Mg/3 Ml) Ud) 2.5 mg INH RQ4 PRN PRN Reason: Shortness of Breath Amiodarone HCl (Cordarone) 100 mg PO DAILY [facility] Last Admin: 10/04/17 09:27 Dose: 100 mg Anastrozole (Arimidex 1 Mg Tab) 1 mg PO DAILY [facility] Last Admin: 10/04/17 09:31 Dose: 1 mg Ascorbic Acid (Vitamin C 500 Mg Tab) 500 mg PO DAILY [facility] Last Admin: 10/04/17 09:28 Dose: 500 mg Aspirin (Ecotrin) 81 mg PO DAILY [facility] Last Admin: 10/04/17 09:30 Dose: 81 mg Atorvastatin Calcium (Lipitor) 20 mg PO HS [facility] Last Admin: 10/04/17 21:15 Dose: 20 mg Bisacodyl (Dulcolax) 10 mg [place] DAILY PRN PRN Reason: Constipation Last Admin: 10/04/17 17:09 Dose: 10 mg Cholecalciferol (Vitamin D) 1,000 intlu PO DAILY [facility] Last Admin: 10/04/17 09:28 Dose: 1,000 intlu Docusate Sodium (Colace) 200 mg PO DAILY [facility] Last Admin: 10/04/17 09:26 Dose: 200 mg Guaifenesin (Robitussin) 100 mg PO Q6 PRN PRN Reason: Cough Last Admin: 10/04/17 06:54 Dose: 100 mg Meropenem 1 gm/ Sodium (Chloride) 100 mls @ 100 mls/hr IVPB Q8 YUVAL PRN Reason: Protocol Last Admin: 10/05/17 00:09 Dose: 100 mls/hr Ipratropium [place] (Atrovent) 0.5 mg IH RQID [facility] Last Admin: 10/04/17 19:15 Dose: 0.5 mg Lactulose (Enulose) 20 gm PO DAILY PRN PRN Reason: Constipation Last Admin: 10/03/17 14:04 Dose: 20 gm Levothyroxine Sodium (Synthroid) 25 mcg PO DAILY@0630 [facility] Last Admin: 10/05/17 05:30 Dose: 25 mcg Losartan Potassium (Cozaar) 25 mg PO DAILY [facility] Last Admin: 10/04/17 09:47 Dose: Not Given Memantine (Namenda) 10 mg PO DAILY [facility] Last Admin: 10/04/17 09:30 Dose: 10 mg Metoprolol Succinate (Toprol Xl) 25 mg PO DAILY [facility] Last Admin: 10/04/17 09:29 Dose: 25 mg Multivitamins/Minerals (Therapeutic-M Tab) 1 tab PO DAILY [facility] Last Admin: 10/04/17 09:27 Dose: 1 tab Potassium Chloride (K-Dur 20 Meq Er Tab) 20 meq PO DAILY [facility] Last Admin: 10/04/17 09:47 Dose: Not Given Ranolazine (Ranexa) 500 mg PO DAILY [facility] Last Admin: 10/04/17 09:26 Dose: 500 mg Sodium Polystyrene Sulfonate (Kayexalate Susp) 30 gm PO ONCE ONE Stop: 10/05/17 09:46 Vitamin E (Vitamin E 400 Units Cap) 400 intlu PO DAILY [facility] Last Admin: 10/04/17 09:28 Dose: 400 intlu - Labs Labs: 10/05/17 05:00 10/05/17 05:00 Assessment and Plan (1) Abdominal pain Status: Acute (2) Sepsis Status: Acute (3) Pneumonia Status: Acute (4) Hydroureteronephrosis Status: Acute (5) Suspected urinary tract infection Status: Acute (6) Chronic constipation Status: Chronic
[2017-10-05] MEDS: guaiFENesin 100 mg/5 ml Syrup UD PO PRN ×2 (10:19→17:16)
[2017-10-05] MEDS ORDERED: HYDROmorphone 0.5 mg/0.5 ml ISec IVP STA (10:51)
[2017-10-05 11:21] LABS: BANDS 3 % (0-2); LYMPHOCYTE 3 % (20-50); MONOCYTE 4 % (0-10); NEUTROPHIL 90 % (42-75); PLATELET ESTIMATE NORMAL (NORMAL); TOTAL CELLS COUNTED 100
[2017-10-05 11:53] LABS: NUCLEATED RED BLOOD CELL 111 % (0-0)
[2017-10-05 11:55] LABS: HYPOCHROMIC SLIGHT
[2017-10-05 11:56] LABS: LARGE PLATELETS PRESENT; OVALOCYTES SLIGHT; TEARDROP CELLS SLIGHT
--- NOTE | 2017-10-05 12:53 | CP.PCM.PN ---
Subjective - Date & Time of Evaluation Date of Evaluation: 10/05/17 Time of Evaluation: 09:00 - Subjective Subjective: rx for pneumonia and UTI/ urosepsis in progress has Klebs in urine and blood may be a candidate for levofloxacin monotherapy - cont rx for 14 days Objective - Vital Signs/Intake and Output Vital Signs (last 24 hours): Temp Pulse Resp BP Pulse Ox 97.7 F 92 H 18 157/84 H 97 10/05/17 12:19 10/05/17 12:19 10/05/17 12:19 10/05/17 12:19 10/05/17 12:19 Intake and Output: 10/05/17 10/05/17 06:59 18:59 Intake Total 100 Output Total 100 Balance 0 - Medications Medications: Current Medications Acetaminophen (Tylenol 325mg Tab) 650 mg PO Q6 PRN PRN Reason: Fever >100.4 F Last Admin: 10/03/17 00:07 Dose: 650 mg Acetaminophen (Tylenol 325mg Tab) 650 mg PO Q6 PRN PRN Reason: Pain, Mild (1-3) Last Admin: 10/04/17 19:54 Dose: 650 mg Albuterol Sulfate (Albuterol 0.083% Inhal Shu (2.5 Mg/3 Ml) Ud) 2.5 mg INH RQ4 PRN PRN Reason: Shortness of Breath Amiodarone HCl (Cordarone) 100 mg PO DAILY [facility] Last Admin: 10/05/17 09:48 Dose: 100 mg Anastrozole (Arimidex 1 Mg Tab) 1 mg PO DAILY [facility] Last Admin: 10/05/17 09:52 Dose: 1 mg Ascorbic Acid (Vitamin C 500 Mg Tab) 500 mg PO DAILY [facility] Last Admin: 10/05/17 09:47 Dose: 500 mg Aspirin (Ecotrin) 81 mg PO DAILY [facility] Last Admin: 10/05/17 09:46 Dose: 81 mg Atorvastatin Calcium (Lipitor) 20 mg PO HS [facility] Last Admin: 10/04/17 21:15 Dose: 20 mg Bisacodyl (Dulcolax) 10 mg [place] DAILY PRN PRN Reason: Constipation Last Admin: 10/04/17 17:09 Dose: 10 mg Cholecalciferol (Vitamin D) 1,000 intlu PO DAILY [facility] Last Admin: 10/05/17 09:47 Dose: 1,000 intlu Docusate Sodium (Colace) 200 mg PO DAILY [facility] Last Admin: 10/05/17 09:47 Dose: 200 mg Furosemide (Lasix) 20 mg PO DAILY [facility] Guaifenesin (Robitussin) 100 mg PO Q6 PRN PRN Reason: Cough Last Admin: 10/05/17 10:19 Dose: 100 mg Meropenem 1 gm/ Sodium (Chloride) 100 mls @ 100 mls/hr IVPB Q8 YUVAL PRN Reason: Protocol Last Admin: 10/05/17 09:50 Dose: 100 mls/hr Ipratropium [place] (Atrovent) 0.5 mg IH RQID [facility] Last Admin: 10/05/17 11:47 Dose: 0.5 mg Lactulose (Enulose) 20 gm PO DAILY PRN PRN Reason: Constipation Last Admin: 10/03/17 14:04 Dose: 20 gm Levothyroxine Sodium (Synthroid) 25 mcg PO DAILY@0630 [facility] Last Admin: 10/05/17 05:30 Dose: 25 mcg Losartan Potassium (Cozaar) 25 mg PO DAILY [facility] Last Admin: 10/05/17 09:46 Dose: 25 mg Memantine (Namenda) 10 mg PO DAILY [facility] Last Admin: 10/05/17 09:45 Dose: 10 mg Metoprolol Succinate (Toprol Xl) 25 mg PO DAILY [facility] Last Admin: 10/05/17 09:46 Dose: 25 mg Multivitamins/Minerals (Therapeutic-M Tab) 1 tab PO DAILY [facility] Last Admin: 10/05/17 09:48 Dose: 1 tab Ranolazine (Ranexa) 500 mg PO DAILY [facility] Last Admin: 10/05/17 09:48 Dose: 500 mg Vitamin E (Vitamin E 400 Units Cap) 400 intlu PO DAILY [facility] Last Admin: 10/05/17 09:45 Dose: 400 intlu - Labs Labs: 10/05/17 05:00 10/05/17 05:00 Assessment and Plan (1) Abdominal pain Status: Acute (2) Sepsis Status: Acute (3) GINNY (acute kidney injury) Status: Acute (4) Acute exacerbation of congestive heart failure Status: Acute (5) Bronchospasm with bronchitis, acute Status: Acute (6) Chest pain Status: Acute
--- NOTE | 2017-10-05 16:18 | CP.PCM.PN ---
Subjective - Date & Time of Evaluation Date of Evaluation: 10/05/17 Time of Evaluation: 10:00 - Subjective Subjective: Patient was seen and examined at bedside. More hypervolemic today clinically and complaining of worsening shortness of breath. States that her breathing feels worse today. Denies chest pain, n/v/d/f/ c. Discussed case with Dr. Gomez. Objective - Vital Signs/Intake and Output Vital Signs (last 24 hours): Temp Pulse Resp BP Pulse Ox 97.7 F 92 H 20 157/84 H 97 10/05/17 13:00 10/05/17 13:00 10/05/17 13:00 10/05/17 13:00 10/05/17 13:00 Intake and Output: 10/05/17 10/05/17 06:59 18:59 Intake Total 100 Output Total 100 Balance 0 - Medications Medications: Current Medications Acetaminophen (Tylenol 325mg Tab) 650 mg PO Q6 PRN PRN Reason: Fever >100.4 F Last Admin: 10/03/17 00:07 Dose: 650 mg Acetaminophen (Tylenol 325mg Tab) 650 mg PO Q6 PRN PRN Reason: Pain, Mild (1-3) Last Admin: 10/04/17 19:54 Dose: 650 mg Albuterol Sulfate (Albuterol 0.083% Inhal Shu (2.5 Mg/3 Ml) Ud) 2.5 mg INH RQ4 PRN PRN Reason: Shortness of Breath Amiodarone HCl (Cordarone) 100 mg PO DAILY [facility] Last Admin: 10/05/17 09:48 Dose: 100 mg Anastrozole (Arimidex 1 Mg Tab) 1 mg PO DAILY [facility] Last Admin: 10/05/17 09:52 Dose: 1 mg Ascorbic Acid (Vitamin C 500 Mg Tab) 500 mg PO DAILY [facility] Last Admin: 10/05/17 09:47 Dose: 500 mg Aspirin (Ecotrin) 81 mg PO DAILY [facility] Last Admin: 10/05/17 09:46 Dose: 81 mg Atorvastatin Calcium (Lipitor) 20 mg PO HS [facility] Last Admin: 10/04/17 21:15 Dose: 20 mg Bisacodyl (Dulcolax) 10 mg [place] DAILY PRN PRN Reason: Constipation Last Admin: 10/04/17 17:09 Dose: 10 mg Cholecalciferol (Vitamin D) 1,000 intlu PO DAILY [facility] Last Admin: 10/05/17 09:47 Dose: 1,000 intlu Docusate Sodium (Colace) 200 mg PO DAILY [facility] Last Admin: 10/05/17 09:47 Dose: 200 mg Furosemide (Lasix) 20 mg PO DAILY [facility] Guaifenesin (Robitussin) 100 mg PO Q6 PRN PRN Reason: Cough Last Admin: 10/05/17 10:19 Dose: 100 mg Meropenem 1 gm/ Sodium (Chloride) 100 mls @ 100 mls/hr IVPB Q8 YUVAL PRN Reason: Protocol Last Admin: 10/05/17 09:50 Dose: 100 mls/hr Ipratropium [place] (Atrovent) 0.5 mg IH RQID [facility] Last Admin: 10/05/17 11:47 Dose: 0.5 mg Lactulose (Enulose) 20 gm PO DAILY PRN PRN Reason: Constipation Last Admin: 10/03/17 14:04 Dose: 20 gm Levothyroxine Sodium (Synthroid) 25 mcg PO DAILY@0630 [facility] Last Admin: 10/05/17 05:30 Dose: 25 mcg Losartan Potassium (Cozaar) 25 mg PO DAILY [facility] Last Admin: 10/05/17 09:46 Dose: 25 mg Memantine (Namenda) 10 mg PO DAILY [facility] Last Admin: 10/05/17 09:45 Dose: 10 mg Metoprolol Succinate (Toprol Xl) 25 mg PO DAILY [facility] Last Admin: 10/05/17 09:46 Dose: 25 mg Multivitamins/Minerals (Therapeutic-M Tab) 1 tab PO DAILY [facility] Last Admin: 10/05/17 09:48 Dose: 1 tab Ranolazine (Ranexa) 500 mg PO DAILY [facility] Last Admin: 10/05/17 09:48 Dose: 500 mg Vitamin E (Vitamin E 400 Units Cap) 400 intlu PO DAILY [facility] Last Admin: 10/05/17 09:45 Dose: 400 intlu - Labs Labs: 10/05/17 05:00 10/05/17 05:00 - Additional Findings Additional findings: Physical exam: Constitutional- cooperative, awake, alert, appears uncomfortable today Head- NCAT, PERRL Eye- PERRL, EOMI ENT- normal exam, MMM. Neck- normal inspection, supple, + JVD today Respiratory- scant wheezing, bibasilar rales, no rhonchi Cardiovascular- RRR, +S1, +S2 no MRG GI/Abdominal- normal bowel sounds, soft, no mass, no hsm Skin- warm, dry Extremities Exam- normal capillary refill, normal inspection Neurological Exam- alert, awake, oriented Psych- normal mood, normal affect Assessment and Plan - Assessment and Plan (Free Text) Plan: This is a 81 female with a history of cardiomyopathy EF 25-30% , s/p AICD, anxiety, pulmonary hypertension, COPD ( ex smoker ), HTN, Dyslipidemia, Hypothyroidism ,lower back pain , sciatica, osteoporosis, RA, CKD stage III, presenting to the ED with the complaint of abdominal pain, subsequently admitted for sepsis secondary to UTI as well as left lower lobe pneumonia, now hemodynamically stable on telemetry. 1) Sepsis secondary to UTI and left lower lobe pneumonia, slowly resolving - Telemetry admission - Lactic acid 4 -> 1.5 - WBC 35.7 -> 30.0 -> 29.5, minimal decrease so far - Consultation with Dr. Rodarte appreciated - Consultation with Dr. West- Continue Merrem. As per ID, patient may be candidate for Levaquin monotherapy moving forward - F/u Blood, urine cultures- BCX and UCX both show Klebsiella pneumoniae sensitive to Levofloxacin, Dr. West aware - Sputum CX - Procalcitonin 58.23 - CT abd/pelvis- mild left hydroureteronephrosis without evidence of obstructing calculus. Left lower lobe infiltrate, r/o pneumonia - F/u renal ultrasound as ordered by Dr. Gomez to ensure no stone seen (patient unable to tolerate today due to shortness of breath) 2) Left lower lobe pneumonia - f/u sputum cx, so far no organisms seen - duonebs - Montior respiratory status 3) Systolic and diastolic CHF,chronic , more hypervolemic. Pulmonary HTN, severe - EF 25% - Consultation with Dr. Da Silva appreciated - Caution with hydration - Restart Lasix 20 mg po daily, with 40 mg IVP given today due to hypervolemia - ASA - Restart Sildenafil - Amiodarone 4) Acute on chronic kidney disease stage III - Caution with antibiotics causing nephrotoxicity - Stabilized, 5) COPD - Chronic, at baseline - Duoneb changed to scheduled q4 hours and PRN - Dr. Gomez consult 6) Hypothyroidism Chronic Continue Levothyroxine 7) DVT prophylaxis - Heparin
[2017-10-05] MEDS ORDERED: Magnesium Sulfate 2 GM in Sodium Chloride 0.9% 100 ML IVPB ONE (17:41)
[2017-10-05] MEDS: Budesonide 0.25 mg/2 ml Inhal Susp UD INH SCH ×2 (19:47→20:30)
[2017-10-06] MEDS: Meropenem 1 GM in Sodium Chloride 0.9% 100 ML IVPB SCH ×3 (00:24→17:00)
[2017-10-06 05:28] LABS: MEAN CELL VOLUME 96.7 fl (81.0-99.0); MEAN CORPUSCULAR HEMOGLOBIN 31.6 pg (27.0-31.0); MEAN CORPUSCULAR HGB CONC 32.7 g/dL (33.0-37.0); RBC 3.17 Mil/uL (3.80-5.20); RED CELL DISTRIBUTION WIDTH 14.2 % (11.5-14.5)
[2017-10-06] MEDS: Levothyroxine 25 MCG TAB PO SCH (06:00)
[2017-10-06 06:43] LABS: CALCIUM 8.6 mg/dL (8.4-10.2)
[2017-10-06] MEDS: Budesonide 0.25 mg/2 ml Inhal Susp UD INH SCH (08:36)
[2017-10-06] MEDS: Ipratropium 0.02% Inhal Soln (0.5 mg/2.5 ml) UD IH SCH (08:37)
[2017-10-06] MEDS: guaiFENesin 100 mg/5 ml Syrup UD PO PRN ×2 (09:34→17:02)
[2017-10-06] MEDS: Multivitamin With Minerals Tab PO SCH (09:36)
[2017-10-06] MEDS: Ranolazine 500 mg Extended Release Tablets PO SCH (09:37)
[2017-10-06] MEDS: Cholecalciferol 1,000 INTLU TAB PO SCH (09:37)
[2017-10-06] MEDS: Metoprolol Succinate 25 mg XL Tab PO SCH (09:38)
[2017-10-06] MEDS ORDERED: Sodium Chloride 3% for Inhalation 4 ML VIAL.NEB IH PRN (10:00)
[2017-10-06] MEDS ORDERED: Albuterol-Ipratrop 3 mg / 0.5 (3 ml) UD INH STA (10:02)
[2017-10-06] MEDS ORDERED: Hydrocortisone- 100 MG in Sodium Chloride 0.9% 100 ML IV ONE (10:06)
--- NOTE | 2017-10-06 10:17 | CP.PCM.PN ---
Subjective - Date & Time of Evaluation Date of Evaluation: 10/06/17 Time of Evaluation: 10:14 - Subjective Subjective: Seen on AM rounds. More chest congestion, expectorated thick purulent sputum. Has remained afebrile, WBC slowly decreasing. Coarse rhonchi present in lower lobes, right > left. No audible wheezes this morning. PCXR requested. Sputum culture requested. Aerosol therapy changed. Will give one dose solucortef 100MG this moning. Add clindamycin to present regimen empirically. Objective - Vital Signs/Intake and Output Vital Signs (last 24 hours): Temp Pulse Resp BP Pulse Ox 98.1 F 99 H 18 138/84 93 L 10/06/17 07:55 10/06/17 09:38 10/06/17 07:55 10/06/17 09:38 10/06/17 07:55 - Medications Medications: Current Medications Acetaminophen (Tylenol 325mg Tab) 650 mg PO Q6 PRN PRN Reason: Fever >100.4 F Last Admin: 10/03/17 00:07 Dose: 650 mg Acetaminophen (Tylenol 325mg Tab) 650 mg PO Q6 PRN PRN Reason: Pain, Mild (1-3) Last Admin: 10/04/17 19:54 Dose: 650 mg Albuterol Sulfate (Albuterol 0.083% Inhal Shu (2.5 Mg/3 Ml) Ud) 2.5 mg INH RQ4 PRN PRN Reason: Shortness of Breath Albuterol/Ipratropium (Duoneb 3 Mg/0.5 Mg (3 Ml) Ud) 3 ml INH RQID [facility] Amiodarone HCl (Cordarone) 100 mg PO DAILY [facility] Last Admin: 10/05/17 09:48 Dose: 100 mg Anastrozole (Arimidex 1 Mg Tab) 1 mg PO DAILY [facility] Last Admin: 10/06/17 09:39 Dose: 1 mg Ascorbic Acid (Vitamin C 500 Mg Tab) 500 mg PO DAILY [facility] Last Admin: 10/06/17 09:38 Dose: 500 mg Aspirin (Ecotrin) 81 mg PO DAILY [facility] Last Admin: 10/06/17 09:38 Dose: 81 mg Atorvastatin Calcium (Lipitor) 20 mg PO HS [facility] Last Admin: 10/05/17 21:40 Dose: 20 mg Bisacodyl (Dulcolax) 10 mg [place] DAILY PRN PRN Reason: Constipation Last Admin: 10/05/17 17:21 Dose: 10 mg Cholecalciferol (Vitamin D) 1,000 intlu PO DAILY [facility] Last Admin: 10/06/17 09:37 Dose: 1,000 intlu Docusate Sodium (Colace) 200 mg PO DAILY [facility] Last Admin: 10/06/17 09:37 Dose: 200 mg Furosemide (Lasix) 20 mg PO DAILY [facility] Last Admin: 10/06/17 09:37 Dose: 20 mg Guaifenesin (Robitussin) 100 mg PO Q6 PRN PRN Reason: Cough Last Admin: 10/06/17 09:34 Dose: 100 mg Hydrocortisone Sodium Succinate (Solu-Cortef) 100 mg IV ONCE ONE Stop: 10/06/17 10:31 Meropenem 1 gm/ Sodium (Chloride) 100 mls @ 100 mls/hr IVPB Q8 [facility] PRN Reason: Protocol Last Admin: 10/06/17 09:52 Dose: 100 mls/hr Lactulose (Enulose) 20 gm PO DAILY PRN PRN Reason: Constipation Last Admin: 10/05/17 17:16 Dose: 20 gm Levothyroxine Sodium (Synthroid) 25 mcg PO DAILY@0630 [facility] Last Admin: 10/06/17 06:00 Dose: 25 mcg Losartan Potassium (Cozaar) 25 mg PO DAILY [facility] Last Admin: 10/06/17 09:36 Dose: 25 mg Memantine (Namenda) 10 mg PO DAILY [facility] Last Admin: 10/06/17 09:36 Dose: 10 mg Metoprolol Succinate (Toprol Xl) 25 mg PO DAILY [facility] Last Admin: 10/06/17 09:38 Dose: 25 mg Multivitamins/Minerals (Therapeutic-M Tab) 1 tab PO DAILY [facility] Last Admin: 10/06/17 09:36 Dose: 1 tab Ranolazine (Ranexa) 500 mg PO DAILY [facility] Last Admin: 10/06/17 09:37 Dose: 500 mg Sildenafil Citrate (Revatio) 20 mg PO BID [facility] Tramadol HCl (Ultram) 50 mg PO Q4 PRN PRN Reason: Pain, moderate (4-7) Last Admin: 10/05/17 21:43 Dose: 50 mg Vitamin E (Vitamin E 400 Units Cap) 400 intlu PO DAILY [facility] Last Admin: 07/25/18 09:36 Dose: 400 intlu - Labs Labs: 10/06/17 04:20 10/06/17 04:20 Assessment and Plan (1) Abdominal pain Status: Acute (2) Sepsis Status: Acute (3) Pneumonia Status: Acute (4) Hydroureteronephrosis Status: Acute (5) Suspected urinary tract infection Status: Acute (6) Chronic constipation Status: Chronic
[2017-10-06] MEDS: Sildenafil 20 MG TAB PO SCH ×2 (10:51→17:02)
--- NOTE | 2017-10-06 11:26 | RAD ---
Date of service: 10/06/2017 HISTORY: pneumonia COMPARISON: 10/02/2017 FINDINGS: LUNGS: There are low lung volumes. There is mild pulmonary venous congestion. No focal consolidation. PLEURA: No significant pleural effusion identified, no pneumothorax apparent. CARDIOVASCULAR: There is mild cardiomegaly. Stable position of right-sided pacemaker. Atherosclerotic aortic arch calcifications are present. OSSEOUS STRUCTURES: No significant abnormalities. VISUALIZED UPPER ABDOMEN: Normal. OTHER FINDINGS: None. IMPRESSION: No active pulmonary disease. No significant interval change.
[2017-10-06] MEDS: Clindamycin 600mg/50ml D5W 600 MG/50 ML VIAL IVPB SCH ×2 (11:40→17:00)
--- NOTE | 2017-10-06 13:03 | CP.PCM.PN ---
Subjective - Date & Time of Evaluation Date of Evaluation: 10/06/17 Time of Evaluation: 09:00 - Subjective Subjective: still congested c/o constipation abd discomfort awake alert Objective - Vital Signs/Intake and Output Vital Signs (last 24 hours): Temp Pulse Resp BP Pulse Ox 98.1 F 95 H 18 138/84 93 L 10/06/17 07:55 10/06/17 09:55 10/06/17 07:55 10/06/17 09:55 10/06/17 07:55 - Medications Medications: Current Medications Acetaminophen (Tylenol 325mg Tab) 650 mg PO Q6 PRN PRN Reason: Fever >100.4 F Last Admin: 10/03/17 00:07 Dose: 650 mg Acetaminophen (Tylenol 325mg Tab) 650 mg PO Q6 PRN PRN Reason: Pain, Mild (1-3) Last Admin: 10/04/17 19:54 Dose: 650 mg Albuterol Sulfate (Albuterol 0.083% Inhal Shu (2.5 Mg/3 Ml) Ud) 2.5 mg INH RQ4 PRN PRN Reason: Shortness of Breath Albuterol/Ipratropium (Duoneb 3 Mg/0.5 Mg (3 Ml) Ud) 3 ml INH RQID [facility] Amiodarone HCl (Cordarone) 100 mg PO DAILY [facility] Last Admin: 10/06/17 09:55 Dose: 100 mg Anastrozole (Arimidex 1 Mg Tab) 1 mg PO DAILY [facility] Last Admin: 10/06/17 09:39 Dose: 1 mg Ascorbic Acid (Vitamin C 500 Mg Tab) 500 mg PO DAILY [facility] Last Admin: 10/06/17 09:38 Dose: 500 mg Aspirin (Ecotrin) 81 mg PO DAILY [facility] Last Admin: 10/06/17 09:38 Dose: 81 mg Atorvastatin Calcium (Lipitor) 20 mg PO HS [facility] Last Admin: 10/05/17 21:40 Dose: 20 mg Bisacodyl (Dulcolax) 10 mg MD DAILY PRN PRN Reason: Constipation Last Admin: 10/05/17 17:21 Dose: 10 mg Cholecalciferol (Vitamin D) 1,000 intlu PO DAILY [facility] Last Admin: 10/06/17 09:37 Dose: 1,000 intlu Docusate Sodium (Colace) 200 mg PO DAILY [facility] Last Admin: 10/06/17 09:37 Dose: 200 mg Furosemide (Lasix) 20 mg PO DAILY [facility] Last Admin: 10/06/17 09:37 Dose: 20 mg Guaifenesin (Robitussin) 100 mg PO Q6 PRN PRN Reason: Cough Last Admin: 10/06/17 09:34 Dose: 100 mg Meropenem 1 gm/ Sodium (Chloride) 100 mls @ 100 mls/hr IVPB Q8 [facility] PRN Reason: Protocol Last Admin: 10/06/17 09:52 Dose: 100 mls/hr Clindamycin Phosphate (Cleocin) 600 mg in 50 mls @ 50 mls/hr IVPB Q8 [facility] PRN Reason: Protocol Lactulose (Enulose) 20 gm PO DAILY PRN PRN Reason: Constipation Last Admin: 10/05/17 17:16 Dose: 20 gm Levothyroxine Sodium (Synthroid) 25 mcg PO DAILY@0630 [facility] Last Admin: 10/06/17 06:00 Dose: 25 mcg Losartan Potassium (Cozaar) 25 mg PO DAILY [facility] Last Admin: 10/06/17 09:36 Dose: 25 mg Memantine (Namenda) 10 mg PO DAILY [facility] Last Admin: 10/06/17 09:36 Dose: 10 mg Metoprolol Succinate (Toprol Xl) 25 mg PO DAILY [facility] Last Admin: 10/06/17 09:38 Dose: 25 mg Multivitamins/Minerals (Therapeutic-M Tab) 1 tab PO DAILY [facility] Last Admin: 10/06/17 09:36 Dose: 1 tab Ranolazine (Ranexa) 500 mg PO DAILY [facility] Last Admin: 10/06/17 09:37 Dose: 500 mg Saccharomyces Boulardii (Florastor) 250 mg PO BID [facility] Sildenafil Citrate (Revatio) 20 mg PO BID [facility] Last Admin: 10/06/17 10:51 Dose: 20 mg Tramadol HCl (Ultram) 50 mg PO Q4 PRN PRN Reason: Pain, moderate (4-7) Last Admin: 10/05/17 21:43 Dose: 50 mg Vitamin E (Vitamin E 400 Units Cap) 400 intlu PO DAILY [facility] Last Admin: 10/06/17 09:36 Dose: 400 intlu - Labs Labs: 10/06/17 04:20 10/06/17 04:20 - Constitutional Appears: Non-toxic, Chronically Ill - Head Exam Head Exam: NORMOCEPHALIC - Eye Exam Eye Exam: absent: Scleral icterus - ENT Exam ENT Exam: Mucous Membranes Dry - Neck Exam Neck Exam: absent: Lymphadenopathy - Respiratory Exam Respiratory Exam: Decreased Breath Sounds - Cardiovascular Exam Cardiovascular Exam: REGULAR RHYTHM - GI/Abdominal Exam GI & Abdominal Exam: Distended, Soft. absent: Tenderness - Rectal Exam Rectal Exam: Deferred - Exam Exam: NORMAL INSPECTION - Extremities Exam Extremities Exam: absent: Pedal Edema - Back Exam Back Exam: absent: CVA tenderness (L), CVA tenderness (R) - Neurological Exam Neurological Exam: Alert, Awake, Oriented x3 - Psychiatric Exam Psychiatric exam: Depressed - Skin Skin Exam: Dry Assessment and Plan (1) Abdominal pain Status: Acute (2) Sepsis Status: Acute (3) GINNY (acute kidney injury) Status: Acute (4) Acute exacerbation of congestive heart failure Status: Acute (5) Bronchospasm with bronchitis, acute Status: Acute (6) Chest pain Status: Acute - Assessment and Plan (Free Text) Assessment: clinda added for anaerobic coverage by pulmonary on Merrem for UTI/Sepsis/ Bacteremia with Klebsiella in blood and urine will need 14 days rx for urosepsis / pneumonia
--- NOTE | 2017-10-06 13:05 | NM ---
Date of service: 10/06/2017 COMPARISON: 04/23/2017 ventilation-perfusion scan. October 06, 2017. Chest x-ray. 10/03/2017 CT thorax TECHNIQUE: 40.0 mCi technetium 99-m DTPA aerosol. 5.675 mCI technetium 99-m MAA administered intravenously. FINDINGS: VENTILATION COMPONENT: Markedly heterogeneous ventilation substantially diminished compared to the prior study. Retention of radionuclide in the tracheobronchial tree and ingestion of radionuclide in the stomach, incidental findings PERFUSION COMPONENT: Heterogeneous distribution of radionuclide. No geographic, segmental, lobar abnormalities apparent on the present examination. Ventilation perfusion defect related to pacemaker battery. IMPRESSION: Low probability ventilation perfusion scan for pulmonary embolism. No significant interval change compared to the prior examination(s).
[2017-10-06] MEDS: Albuterol-Ipratrop 3 mg / 0.5 (3 ml) UD INH SCH ×3 (13:06→19:00)
--- NOTE | 2017-10-06 15:43 | CP.PCM.PN ---
Subjective - Date & Time of Evaluation Date of Evaluation: 10/06/17 Time of Evaluation: 10:00 - Subjective Subjective: Patient seen and examined. Still complaining of SOB. Objective - Vital Signs/Intake and Output Vital Signs (last 24 hours): Temp Pulse Resp BP Pulse Ox 98.3 F 98 H 20 109/65 98 10/06/17 15:35 10/06/17 15:35 10/06/17 15:35 10/06/17 15:35 10/06/17 15:35 - Medications Medications: Current Medications Acetaminophen (Tylenol 325mg Tab) 650 mg PO Q6 PRN PRN Reason: Fever >100.4 F Last Admin: 10/03/17 00:07 Dose: 650 mg Acetaminophen (Tylenol 325mg Tab) 650 mg PO Q6 PRN PRN Reason: Pain, Mild (1-3) Last Admin: 10/04/17 19:54 Dose: 650 mg Albuterol Sulfate (Albuterol 0.083% Inhal Shu (2.5 Mg/3 Ml) Ud) 2.5 mg INH RQ4 PRN PRN Reason: Shortness of Breath Albuterol/Ipratropium (Duoneb 3 Mg/0.5 Mg (3 Ml) Ud) 3 ml INH RQID [facility] Last Admin: 10/06/17 15:04 Dose: 3 ml Amiodarone HCl (Cordarone) 100 mg PO DAILY [facility] Last Admin: 10/06/17 09:55 Dose: 100 mg Anastrozole (Arimidex 1 Mg Tab) 1 mg PO DAILY [facility] Last Admin: 10/06/17 09:39 Dose: 1 mg Ascorbic Acid (Vitamin C 500 Mg Tab) 500 mg PO DAILY [facility] Last Admin: 10/06/17 09:38 Dose: 500 mg Aspirin (Ecotrin) 81 mg PO DAILY [facility] Last Admin: 10/06/17 09:38 Dose: 81 mg Atorvastatin Calcium (Lipitor) 20 mg PO HS [facility] Last Admin: 10/05/17 21:40 Dose: 20 mg Bisacodyl (Dulcolax) 10 mg [place] DAILY PRN PRN Reason: Constipation Last Admin: 10/05/17 17:21 Dose: 10 mg Cholecalciferol (Vitamin D) 1,000 intlu PO DAILY [facility] Last Admin: 10/06/17 09:37 Dose: 1,000 intlu Docusate Sodium (Colace) 200 mg PO DAILY [facility] Last Admin: 10/06/17 09:37 Dose: 200 mg Furosemide (Lasix) 20 mg PO DAILY [facility] Last Admin: 10/06/17 09:37 Dose: 20 mg Guaifenesin (Robitussin) 100 mg PO Q6 PRN PRN Reason: Cough Last Admin: 10/06/17 09:34 Dose: 100 mg Meropenem 1 gm/ Sodium (Chloride) 100 mls @ 100 mls/hr IVPB Q8 [facility] PRN Reason: Protocol Last Admin: 10/06/17 09:52 Dose: 100 mls/hr Clindamycin Phosphate (Cleocin) 600 mg in 50 mls @ 50 mls/hr IVPB Q8 [facility] PRN Reason: Protocol Last Admin: 10/06/17 11:40 Dose: 50 mls/hr Lactulose (Enulose) 20 gm PO DAILY PRN PRN Reason: Constipation Last Admin: 10/05/17 17:16 Dose: 20 gm Levothyroxine Sodium (Synthroid) 25 mcg PO DAILY@0630 [facility] Last Admin: 10/06/17 06:00 Dose: 25 mcg Losartan Potassium (Cozaar) 25 mg PO DAILY [facility] Last Admin: 10/06/17 09:36 Dose: 25 mg Memantine (Namenda) 10 mg PO DAILY [facility] Last Admin: 10/06/17 09:36 Dose: 10 mg Metoprolol Succinate (Toprol Xl) 25 mg PO DAILY [facility] Last Admin: 10/06/17 09:38 Dose: 25 mg Multivitamins/Minerals (Therapeutic-M Tab) 1 tab PO DAILY [facility] Last Admin: 10/06/17 09:36 Dose: 1 tab Ranolazine (Ranexa) 500 mg PO DAILY [facility] Last Admin: 10/06/17 09:37 Dose: 500 mg Saccharomyces Boulardii (Florastor) 250 mg PO BID [facility] Sildenafil Citrate (Revatio) 20 mg PO BID [facility] Last Admin: 10/06/17 10:51 Dose: 20 mg Tramadol HCl (Ultram) 50 mg PO Q4 PRN PRN Reason: Pain, moderate (4-7) Last Admin: 10/05/17 21:43 Dose: 50 mg Vitamin E (Vitamin E 400 Units Cap) 400 intlu PO DAILY [facility] Last Admin: 10/06/17 09:36 Dose: 400 intlu - Labs Labs: 10/06/17 04:20 10/06/17 04:20 - Constitutional Appears: No Acute Distress - Head Exam Head Exam: ATRAUMATIC - Eye Exam Eye Exam: absent: Scleral icterus - ENT Exam ENT Exam: Mucous Membranes Moist - Neck Exam Neck Exam: absent: Meningismus - Respiratory Exam Respiratory Exam: Wheezes. absent: Respiratory Distress - Cardiovascular Exam Cardiovascular Exam: REGULAR RHYTHM, +S1, +S2 - GI/Abdominal Exam GI & Abdominal Exam: Soft. absent: Tenderness - Rectal Exam Rectal Exam: Deferred - Back Exam Back Exam: NORMAL INSPECTION - Neurological Exam Neurological Exam: Alert, Oriented x3 - Psychiatric Exam Psychiatric exam: Normal Affect - Skin Skin Exam: Dry, Intact Assessment and Plan - Assessment and Plan (Free Text) Assessment: 81 yo female with history of Cardiomyopathy with AICD, Pulmonary HTN, COPD, HTN , HLD, Hypothyroidism, Osteoporosis, RA and CKD stage III admitted because of abdominal pain on 10/02/17 and was found to be Septic secondary to UTI. 1. Sepsis urine and blood culture grew Klebsiella Pneumonia continue IV Meropenem and Clindamycin for 2 weeks afebrile, WBC still elevated but trending down Dr West on ID consult 2. UTI denied dysuria on IV antibiotics 3. COPD exacerbation continue Duoneb prn 4. Cardiomyopathy CXray showed mild pulmonary congestion continue Amiodarone, Lasix, Losartan and Metoprolol 5. Acute on CKD stage III worsened because of poor renal perfusion secondary to cardiomyopathy
[2017-10-06] MEDS: Saccharomyces Boulardi 250 mg Cap PO SCH (17:01)
[2017-10-06] MEDS ORDERED: Chlorhexidine Gluconate 1 APPL/PKT TP ONE (21:21)
[2017-10-07] MEDS: Clindamycin 600mg/50ml D5W 600 MG/50 ML VIAL IVPB SCH ×3 (00:19→17:09)
[2017-10-07] MEDS: Meropenem 1 GM in Sodium Chloride 0.9% 100 ML IVPB SCH ×3 (02:10→17:08)
[2017-10-07] MEDS: Levothyroxine 25 MCG TAB PO SCH (05:46)
[2017-10-07] MEDS: Albuterol-Ipratrop 3 mg / 0.5 (3 ml) UD INH SCH ×4 (07:32→19:13)
[2017-10-07] MEDS: Metoprolol Succinate 25 mg XL Tab PO SCH (09:53)
[2017-10-07] MEDS: guaiFENesin 100 mg/5 ml Syrup UD PO PRN (09:53)
[2017-10-07] MEDS: Ranolazine 500 mg Extended Release Tablets PO SCH (09:53)
[2017-10-07] MEDS: Sildenafil 20 MG TAB PO SCH ×2 (09:54→20:37)
[2017-10-07] MEDS: Multivitamin With Minerals Tab PO SCH (09:54)
[2017-10-07] MEDS: Saccharomyces Boulardi 250 mg Cap PO SCH ×2 (09:54→20:36)
[2017-10-07] MEDS: Cholecalciferol 1,000 INTLU TAB PO SCH (09:55)
--- NOTE | 2017-10-07 10:23 | CP.PCM.PN ---
Subjective - Date & Time of Evaluation Date of Evaluation: 10/07/17 Time of Evaluation: 10:20 - Subjective Subjective: She does seem to be improved this morning compared to the day before. She remains afebrile, well oxygenated, less tachypneic but hypertensive. She can conversate today with much less dyspnea. There is still a congested cough, and she has been able to raise only a small amount of sputum (which is still purulent). Her chest x-ray yesterday did not show any new infiltrates or effusions, but continued vascular congestion. Her V/Q lung scan was low probability for PE w/o any mismatch, but the ventilation was quite compromised. She has been re-started on her Revatio yesterday w/o incident. Clindamycin was added to the regimen yesterday because of the nature of the sputum while already on meropenem. Her voice is hoarse today, but the throat is not injected and the MM are moist, Neck is supple and trachea midline. No dullness on chest percussion, equal expansion. Breath sounds are dimimnished bilaterally w/o audible wheezing or bronchial breathing. Scattered sonorous rhonchimare present posteriorly in both lungs. Acute suppurative bronchitis with AECOPD. Klebsiella UTI with Klebsiella sepsis-improving. Ischemic cardiomyopathy with severely reduced EF and AICD. Severe pulmonary hypertension. Today's medical regimen will remain the same. Tomorrow I will reduce the hydrocortisone to once daily. Tomorrow I will change the cindamycin to PO if there is continued improvement. Objective - Vital Signs/Intake and Output Vital Signs (last 24 hours): Temp Pulse Resp BP Pulse Ox 97.4 F L 90 18 158/84 H 100 10/07/17 08:00 10/07/17 09:56 10/07/17 08:00 10/07/17 09:56 10/07/17 08:00 - Medications Medications: Current Medications Acetaminophen (Tylenol 325mg Tab) 650 mg PO Q6 PRN PRN Reason: Fever >100.4 F Last Admin: 10/03/17 00:07 Dose: 650 mg Acetaminophen (Tylenol 325mg Tab) 650 mg PO Q6 PRN PRN Reason: Pain, Mild (1-3) Last Admin: 10/04/17 19:54 Dose: 650 mg Albuterol Sulfate (Albuterol 0.083% Inhal Shu (2.5 Mg/3 Ml) Ud) 2.5 mg INH RQ4 PRN PRN Reason: Shortness of Breath Albuterol/Ipratropium (Duoneb 3 Mg/0.5 Mg (3 Ml) Ud) 3 ml INH RQID [facility] Last Admin: 10/07/17 07:32 Dose: 3 ml Amiodarone HCl (Cordarone) 100 mg PO DAILY [facility] Last Admin: 10/07/17 09:56 Dose: 100 mg Anastrozole (Arimidex 1 Mg Tab) 1 mg PO DAILY [facility] Last Admin: 10/07/17 09:57 Dose: 1 mg Ascorbic Acid (Vitamin C 500 Mg Tab) 500 mg PO DAILY [facility] Last Admin: 10/07/17 09:55 Dose: 500 mg Aspirin (Ecotrin) 81 mg PO DAILY [facility] Last Admin: 10/07/17 09:54 Dose: 81 mg Atorvastatin Calcium (Lipitor) 20 mg PO HS [facility] Last Admin: 10/06/17 21:16 Dose: 20 mg Bisacodyl (Dulcolax) 10 mg MD DAILY PRN PRN Reason: Constipation Last Admin: 10/06/17 21:17 Dose: 10 mg Cholecalciferol (Vitamin D) 1,000 intlu PO DAILY [facility] Last Admin: 10/07/17 09:55 Dose: 1,000 intlu Docusate Sodium (Colace) 200 mg PO DAILY [facility] Last Admin: 10/07/17 09:55 Dose: 200 mg Furosemide (Lasix) 20 mg PO DAILY [facility] Last Admin: 10/07/17 09:55 Dose: 20 mg Guaifenesin (Robitussin) 100 mg PO Q6 PRN PRN Reason: Cough Last Admin: 10/07/17 09:53 Dose: 100 mg Hydrocortisone Sodium Succinate (Solu-Cortef) 100 mg IV Q12 [facility] Last Admin: 10/07/17 09:54 Dose: 100 mg Meropenem 1 gm/ Sodium (Chloride) 100 mls @ 100 mls/hr IVPB Q8 [facility] PRN Reason: Protocol Last Admin: 10/07/17 09:52 Dose: 100 mls/hr Clindamycin Phosphate (Cleocin) 600 mg in 50 mls @ 50 mls/hr IVPB Q8 [facility] PRN Reason: Protocol Last Admin: 10/07/17 09:52 Dose: 50 mls/hr Lactulose (Enulose) 20 gm PO DAILY PRN PRN Reason: Constipation Last Admin: 10/05/17 17:16 Dose: 20 gm Levothyroxine Sodium (Synthroid) 25 mcg PO DAILY@0630 [facility] Last Admin: 10/07/17 05:46 Dose: 25 mcg Losartan Potassium (Cozaar) 25 mg PO DAILY [facility] Last Admin: 10/07/17 09:55 Dose: 25 mg Memantine (Namenda) 10 mg PO DAILY [facility] Last Admin: 10/06/17 09:36 Dose: 10 mg Metoprolol Succinate (Toprol Xl) 25 mg PO DAILY [facility] Last Admin: 10/07/17 09:53 Dose: 25 mg Multivitamins/Minerals (Therapeutic-M Tab) 1 tab PO DAILY [facility] Last Admin: 10/07/17 09:54 Dose: 1 tab Ranolazine (Ranexa) 500 mg PO DAILY [facility] Last Admin: 10/07/17 09:53 Dose: 500 mg Saccharomyces Boulardii (Florastor) 250 mg PO BID [facility] Last Admin: 10/07/17 09:54 Dose: 250 mg Sildenafil Citrate (Revatio) 20 mg PO BID [facility] Last Admin: 10/07/17 09:54 Dose: 20 mg Tramadol HCl (Ultram) 50 mg PO Q4 PRN PRN Reason: Pain, moderate (4-7) Last Admin: 10/05/17 21:43 Dose: 50 mg Vitamin E (Vitamin E 400 Units Cap) 400 intlu PO DAILY [facility] Last Admin: 10/07/17 09:55 Dose: 400 intlu - Labs Labs: 10/06/17 04:20 10/06/17 04:20 Assessment and Plan (1) Abdominal pain Status: Acute (2) Sepsis Status: Acute (3) Pneumonia Status: Acute (4) Hydroureteronephrosis Status: Acute (5) Suspected urinary tract infection Status: Acute (6) Chronic constipation Status: Chronic
--- NOTE | 2017-10-07 12:54 | US ---
Date of service: 10/07/2017 PROCEDURE: Ultrasound of the Kidneys HISTORY: left hydroureter? COMPARISON: Renal ultrasound 04/30/[address] without contrast 10/02/2017. TECHNIQUE: Transabdominal ultrasonography of the kidneys is been performed in longitudinal and transverse projections. FINDINGS: RIGHT KIDNEY: Measures: 8.7 x 5.9 x 4.2 cm. The right kidney's lower limits normal size with mild cortical atrophy appreciated and limited corticomedullary differentiation. 2 small lower pole simple renal cysts are identified measuring 1.6 x 1.5 x 1.3 cm in the more anterior and 1.4 x 1.3 x 1.5 cm in the more posterior. No definitive solid lesion identified or urolithiasis. No obstructive uropathy. Proximal left ureter is not identified suggesting normal caliber. There is no left renal pelvis dilatation. LEFT KIDNEY: Measures: 10.3 x 6.0 x 5.6 cm. Mild cortical atrophy is appreciated once again with the left kidney normal in size. Prior left hydronephrosis is less well appreciated currently although there is an upper pole parapelvic cyst measures 1.2 x 1.4 x 1.0 cm with left renal parenchyma otherwise nonfocal. Corticomedullary differentiation is limited here is well. No definitive solid lesion or urolithiasis. OTHER FINDINGS: None. IMPRESSION: Prior mild left hydronephrosis is less apparent than in the prior CT 10/02/2017 and may have in fact resolved although left parapelvic cyst is suggested at the upper pole as an isolated finding at this time. Further clinical correlation is advised. Proximal left ureter is not identified suggesting normal caliber. There is likely intrinsic medical renal disease given cortical atrophy and limited corticomedullary differentiation bilaterally. Two small right renal cysts are reiterated.
--- NOTE | 2017-10-07 13:51 | CP.PCM.PN ---
Subjective - Date & Time of Evaluation Date of Evaluation: 10/07/17 Time of Evaluation: 11:20 - Subjective Subjective: Patient seen and examined. Appeared to breath more comfortably today and able to talk without difficulty when conversing. Admitted feeling a little better. Objective - Vital Signs/Intake and Output Vital Signs (last 24 hours): Temp Pulse Resp BP Pulse Ox 97.5 F L 90 20 104/65 95 10/07/17 12:00 10/07/17 12:00 10/07/17 12:00 10/07/17 12:00 10/07/17 12:00 - Medications Medications: Current Medications Acetaminophen (Tylenol 325mg Tab) 650 mg PO Q6 PRN PRN Reason: Fever >100.4 F Last Admin: 10/03/17 00:07 Dose: 650 mg Acetaminophen (Tylenol 325mg Tab) 650 mg PO Q6 PRN PRN Reason: Pain, Mild (1-3) Last Admin: 10/04/17 19:54 Dose: 650 mg Albuterol Sulfate (Albuterol 0.083% Inhal Shu (2.5 Mg/3 Ml) Ud) 2.5 mg INH RQ4 PRN PRN Reason: Shortness of Breath Albuterol/Ipratropium (Duoneb 3 Mg/0.5 Mg (3 Ml) Ud) 3 ml INH RQID [facility] Last Admin: 10/07/17 11:53 Dose: 3 ml Amiodarone HCl (Cordarone) 100 mg PO DAILY [facility] Last Admin: 10/07/17 09:56 Dose: 100 mg Anastrozole (Arimidex 1 Mg Tab) 1 mg PO DAILY [facility] Last Admin: 10/07/17 09:57 Dose: 1 mg Ascorbic Acid (Vitamin C 500 Mg Tab) 500 mg PO DAILY [facility] Last Admin: 10/07/17 09:55 Dose: 500 mg Aspirin (Ecotrin) 81 mg PO DAILY [facility] Last Admin: 10/07/17 09:54 Dose: 81 mg Atorvastatin Calcium (Lipitor) 20 mg PO HS [facility] Last Admin: 10/06/17 21:16 Dose: 20 mg Bisacodyl (Dulcolax) 10 mg [place] DAILY PRN PRN Reason: Constipation Last Admin: 10/06/17 21:17 Dose: 10 mg Cholecalciferol (Vitamin D) 1,000 intlu PO DAILY [facility] Last Admin: 10/07/17 09:55 Dose: 1,000 intlu Docusate Sodium (Colace) 200 mg PO DAILY [facility] Last Admin: 10/07/17 09:55 Dose: 200 mg Furosemide (Lasix) 20 mg PO DAILY [facility] Last Admin: 10/07/17 09:55 Dose: 20 mg Guaifenesin (Robitussin) 100 mg PO Q6 PRN PRN Reason: Cough Last Admin: 10/07/17 09:53 Dose: 100 mg Hydrocortisone Sodium Succinate (Solu-Cortef) 100 mg IV Q12 [facility] Last Admin: 10/07/17 09:54 Dose: 100 mg Meropenem 1 gm/ Sodium (Chloride) 100 mls @ 100 mls/hr IVPB Q8 [facility] PRN Reason: Protocol Last Admin: 10/07/17 09:52 Dose: 100 mls/hr Clindamycin Phosphate (Cleocin) 600 mg in 50 mls @ 50 mls/hr IVPB Q8 [facility] PRN Reason: Protocol Last Admin: 10/07/17 09:52 Dose: 50 mls/hr Lactulose (Enulose) 20 gm PO DAILY PRN PRN Reason: Constipation Last Admin: 10/05/17 17:16 Dose: 20 gm Levothyroxine Sodium (Synthroid) 25 mcg PO DAILY@0630 [facility] Last Admin: 10/07/17 05:46 Dose: 25 mcg Losartan Potassium (Cozaar) 25 mg PO DAILY [facility] Last Admin: 10/07/17 09:55 Dose: 25 mg Memantine (Namenda) 10 mg PO DAILY [facility] Last Admin: 10/06/17 09:36 Dose: 10 mg Metoprolol Succinate (Toprol Xl) 25 mg PO DAILY [facility] Last Admin: 10/07/17 09:53 Dose: 25 mg Multivitamins/Minerals (Therapeutic-M Tab) 1 tab PO DAILY [facility] Last Admin: 10/07/17 09:54 Dose: 1 tab Ranolazine (Ranexa) 500 mg PO DAILY [facility] Last Admin: 10/07/17 09:53 Dose: 500 mg Saccharomyces Boulardii (Florastor) 250 mg PO BID [facility] Last Admin: 10/07/17 09:54 Dose: 250 mg Sildenafil Citrate (Revatio) 20 mg PO BID [facility] Last Admin: 10/07/17 09:54 Dose: 20 mg Tramadol HCl (Ultram) 50 mg PO Q4 PRN PRN Reason: Pain, moderate (4-7) Last Admin: 10/05/17 21:43 Dose: 50 mg Vitamin E (Vitamin E 400 Units Cap) 400 intlu PO DAILY [facility] Last Admin: 10/07/17 09:55 Dose: 400 intlu - Labs Labs: 10/06/17 04:20 10/06/17 04:20 - Constitutional Appears: No Acute Distress - Head Exam Head Exam: ATRAUMATIC - Eye Exam Eye Exam: absent: Scleral icterus - ENT Exam ENT Exam: Mucous Membranes Moist - Neck Exam Neck Exam: absent: Meningismus - Respiratory Exam Respiratory Exam: absent: Wheezes, Respiratory Distress - Cardiovascular Exam Cardiovascular Exam: REGULAR RHYTHM, +S1, +S2 - GI/Abdominal Exam GI & Abdominal Exam: Soft. absent: Tenderness - Rectal Exam Rectal Exam: Deferred - Back Exam Back Exam: absent: tenderness - Neurological Exam Neurological Exam: Alert, Oriented x3 - Psychiatric Exam Psychiatric exam: Normal Affect - Skin Skin Exam: Dry, Intact Assessment and Plan - Assessment and Plan (Free Text) Assessment: 81 yo female with history of Cardiomyopathy with AICD, Pulmonary HTN, COPD, HTN , HLD, Hypothyroidism, Osteoporosis, RA and CKD stage III admitted because of abdominal pain on 10/02/17 and was found to be Septic secondary to UTI. 1. Sepsis controlled urine and blood culture grew Klebsiella Pneumonia continue IV Meropenem and Clindamycin for 2 weeks afebrile, WBC still elevated but trending down CBC in am Dr West on ID consult 2. UTI no dysuria on IV antibiotics 3. COPD exacerbation continue Duoneb prn 4. Cardiomyopathy CXray showed mild pulmonary congestion continue Amiodarone, Lasix, Losartan and Metoprolol 5. Acute on CKD stage III worsened because of poor renal perfusion secondary to cardiomyopathy
[2017-10-08] MEDS: Clindamycin 600mg/50ml D5W 600 MG/50 ML VIAL IVPB SCH ×3 (00:32→16:36)
[2017-10-08] MEDS: Meropenem 1 GM in Sodium Chloride 0.9% 100 ML IVPB SCH ×3 (01:49→16:37)
[2017-10-08 05:39] LABS: BASO % 0.1 % (0.0-2.0); EOS % 0.1 % (0.0-4.0); HEMOGLOBIN 9.5 g/dL (12.0-16.0); LYMPH # 0.9 K/uL (1.0-4.3); MEAN CORPUSCULAR HEMOGLOBIN 31.8 pg (27.0-31.0); MEAN CORPUSCULAR HGB CONC 32.8 g/dL (33.0-37.0); MEAN PLATELET VOLUME 10.5 fl (7.2-11.7); MONO % 4.6 % (0.0-10.0); NEUT # 19.7 K/uL (1.8-7.0); NEUT % 91.2 % (50.0-75.0); NRBC % 0.1 % (0.0-0.0); PLATELET COUNT 202 K/uL (130-400); RED CELL DISTRIBUTION WIDTH 14.6 % (11.5-14.5); WHITE BLOOD COUNT 21.6 K/uL (4.8-10.8)
[2017-10-08] MEDS: Levothyroxine 25 MCG TAB PO SCH (07:09)
[2017-10-08] MEDS: Albuterol-Ipratrop 3 mg / 0.5 (3 ml) UD INH SCH ×4 (08:09→19:13)
[2017-10-08 08:57] LABS: BANDS 3 % (0-2); LYMPHOCYTE 6 % (20-50); METAMYELOCYTE 1 % (0-0); MONOCYTE 3 % (0-10); MYELOCYTE 1 % (0-0); NEUTROPHIL 86 % (42-75); TOTAL CELLS COUNTED 100
[2017-10-08 08:58] LABS: ANISOCYTOSIS SLIGHT; GIANT PLATELETS PRESENT; HYPOCHROMIC SLIGHT; LARGE PLATELETS PRESENT; OVALOCYTES SLIGHT; PLATELET ESTIMATE NORMAL (NORMAL); POIKILOCYTOSIS SLIGHT; TEARDROP CELLS SLIGHT
[2017-10-08] MEDS: Saccharomyces Boulardi 250 mg Cap PO SCH ×2 (09:42→16:37)
[2017-10-08] MEDS: Metoprolol Succinate 25 mg XL Tab PO SCH (09:42)
[2017-10-08] MEDS: Ranolazine 500 mg Extended Release Tablets PO SCH (09:43)
[2017-10-08] MEDS: Sildenafil 20 MG TAB PO SCH ×2 (09:45→16:38)
[2017-10-08] MEDS: Cholecalciferol 1,000 INTLU TAB PO SCH (09:45)
[2017-10-08] MEDS: Multivitamin With Minerals Tab PO SCH (09:45)
--- NOTE | 2017-10-08 13:39 | CP.PCM.CON ---
Past Patient History - Infectious Disease Hx of Infectious Diseases: None - Tetanus Immunizations Tetanus Immunization: Unknown - Past Medical History & Family History Past Medical History?: Yes - Past Social History Smoking Status: Former Smoker Chewing Tobacco Use: No Cigar Use: No Alcohol: None Drugs: Denies Home Situation {Lives}: Alone - CARDIAC Hx Cardia Arrhythmia: Yes Hx Congestive Heart Failure: Yes Hx Heart Attack: Yes Hx Hypercholesterolemia: Yes Hx Hypertension: Yes Hx Internal Defibrillator: Yes Hx Peripheral Edema: Yes - PULMONARY Hx Bronchitis: Yes Hx Chronic Obstructive Pulmonary Disease (COPD): Yes Hx Pneumonia: Yes Other/Comment: pulmonary hypertension - NEUROLOGICAL Hx Transient Ischemic Attacks (TIA): Yes - HEENT Hx HEENT Problems: Yes Other/Comment: chronic mastoiditis - RENAL Hx Chronic Kidney Disease: No - ENDOCRINE/METABOLIC Hx Hypothyroidism: Yes - HEMATOLOGICAL/ONCOLOGICAL Hx Cancer: Yes - INTEGUMENTARY Hx Dermatological Problems: No - MUSCULOSKELETAL/RHEUMATOLOGICAL Hx Arthritis: Yes Hx Falls: Yes Hx Osteoporosis: Yes - GASTROINTESTINAL Hx Constipation: Yes - GENITOURINARY/GYNECOLOGICAL Hx Genitourinary Disorders: No - PSYCHIATRIC Hx Psychophysiologic Disorder: No Hx Substance Use: No - SURGICAL HISTORY Hx Appendectomy: Yes Hx Cholecystectomy: Yes Hx Coronary Stent: Yes Hx Mastectomy: Yes Hx Tonsillectomy: Yes - ANESTHESIA Hx Anesthesia: Yes Hx Anesthesia Reactions: No Hx Malignant Hyperthermia: No Meds Allergies/Adverse Reactions: Allergies Allergy/AdvReac Type Severity Reaction Status Date / Time No Known Allergies Allergy Verified 10/02/17 14:39 - Medications Medications: Current Medications Acetaminophen (Tylenol 325mg Tab) 650 mg PO Q6 PRN PRN Reason: Fever >100.4 F Last Admin: 10/03/17 00:07 Dose: 650 mg Acetaminophen (Tylenol 325mg Tab) 650 mg PO Q6 PRN PRN Reason: Pain, Mild (1-3) Last Admin: 10/04/17 19:54 Dose: 650 mg Albuterol Sulfate (Albuterol 0.083% Inhal Shu (2.5 Mg/3 Ml) Ud) 2.5 mg INH RQ4 PRN PRN Reason: Shortness of Breath Albuterol/Ipratropium (Duoneb 3 Mg/0.5 Mg (3 Ml) Ud) 3 ml INH RQID [facility] Last Admin: 10/08/17 11:19 Dose: 3 ml Amiodarone HCl (Cordarone) 100 mg PO DAILY [facility] Last Admin: 10/08/17 09:42 Dose: 100 mg Anastrozole (Arimidex 1 Mg Tab) 1 mg PO DAILY [facility] Last Admin: 10/08/17 09:47 Dose: 1 mg Ascorbic Acid (Vitamin C 500 Mg Tab) 500 mg PO DAILY [facility] Last Admin: 10/08/17 09:43 Dose: 500 mg Aspirin (Ecotrin) 81 mg PO DAILY [facility] Last Admin: 10/08/17 09:45 Dose: 81 mg Atorvastatin Calcium (Lipitor) 20 mg PO HS [facility] Last Admin: 10/07/17 23:47 Dose: 20 mg Bisacodyl (Dulcolax) 10 mg [place] DAILY PRN PRN Reason: Constipation Last Admin: 10/06/17 21:17 Dose: 10 mg Cholecalciferol (Vitamin D) 1,000 intlu PO DAILY [facility] Last Admin: 10/08/17 09:45 Dose: 1,000 intlu Docusate Sodium (Colace) 200 mg PO DAILY [facility] Last Admin: 10/08/17 09:43 Dose: 200 mg Furosemide (Lasix) 20 mg PO DAILY [facility] Last Admin: 10/08/17 09:44 Dose: 20 mg Guaifenesin (Robitussin) 100 mg PO Q6 PRN PRN Reason: Cough Last Admin: 10/07/17 09:53 Dose: 100 mg Hydrocortisone Sodium Succinate (Solu-Cortef) 100 mg IV Q12 [facility] Last Admin: 10/08/17 09:41 Dose: 100 mg Meropenem 1 gm/ Sodium (Chloride) 100 mls @ 100 mls/hr IVPB Q8 [facility] PRN Reason: Protocol Last Admin: 10/08/17 09:44 Dose: 100 mls/hr Clindamycin Phosphate (Cleocin) 600 mg in 50 mls @ 50 mls/hr IVPB Q8 [facility] PRN Reason: Protocol Last Admin: 10/08/17 09:43 Dose: 50 mls/hr Lactulose (Enulose) 20 gm PO DAILY PRN PRN Reason: Constipation Last Admin: 10/05/17 17:16 Dose: 20 gm Levothyroxine Sodium (Synthroid) 25 mcg PO DAILY@0630 [facility] Last Admin: 10/08/17 07:09 Dose: 25 mcg Losartan Potassium (Cozaar) 25 mg PO DAILY [facility] Last Admin: 10/08/17 09:43 Dose: 25 mg Memantine (Namenda) 10 mg PO DAILY [facility] Last Admin: 10/08/17 09:45 Dose: 10 mg Metoprolol Succinate (Toprol Xl) 25 mg PO DAILY [facility] Last Admin: 10/08/17 09:42 Dose: 25 mg Multivitamins/Minerals (Therapeutic-M Tab) 1 tab PO DAILY [facility] Last Admin: 10/08/17 09:45 Dose: 1 tab Ranolazine (Ranexa) 500 mg PO DAILY [facility] Last Admin: 10/08/17 09:43 Dose: 500 mg Saccharomyces Boulardii (Florastor) 250 mg PO BID [facility] Last Admin: 10/08/17 09:42 Dose: 250 mg Sildenafil Citrate (Revatio) 20 mg PO BID [facility] Last Admin: 10/08/17 09:45 Dose: 20 mg Tramadol HCl (Ultram) 50 mg PO Q4 PRN PRN Reason: Pain, moderate (4-7) Last Admin: 10/05/17 21:43 Dose: 50 mg Vitamin E (Vitamin E 400 Units Cap) 400 intlu PO DAILY [facility] Last Admin: 10/08/17 09:45 Dose: 400 intlu Results - Vital Signs Recent Vital Signs: Last Vital Signs Temp 97.5 F L 10/08/17 12:04 Pulse 114 H 10/08/17 12:04 Resp 18 10/08/17 12:04 BP 112/74 10/08/17 12:04 Pulse Ox 97 10/08/17 12:04 - Labs Result Diagrams: 10/08/17 05:09 10/06/17 04:20 Labs: Laboratory Results - last 24 hr 10/03/17 10/03/17 10/07/17 12:42 13:30 09:48 WBC RBC Hgb Hct MCV MCH MCHC RDW Plt Count MPV Neut % (Auto) Lymph % (Auto) Sanders % (Auto) Eos % (Auto) Baso % (Auto) Neut # (Auto) Lymph # (Auto) Sanders # (Auto) Eos # (Auto) Baso # (Auto) Neutrophils % (Manual) Band Neutrophils % Lymphocytes % (Manual) Monocytes % (Manual) Metamyelocytes % Myelocytes % Platelet Estimate Large Platelets Giant Platelets Hypochromasia (manual) Poikilocytosis (manual Anisocytosis (manual) Tear Drop Cells Ovalocytes Stool Occult Blood Negative Mycoplasma pneumon IgM 67 Ur Strep pneumoniae Ag Not detected 10/08/17 05:09 WBC 21.6 H RBC 3.00 L Hgb 9.5 L Hct 29.1 L MCV 97.0 MCH 31.8 H MCHC 32.8 L RDW 14.6 H Plt Count 202 MPV 10.5 Neut % (Auto) 91.2 H Lymph % (Auto) 4.0 L Sanders % (Auto) 4.6 Eos % (Auto) 0.1 Baso % (Auto) 0.1 Neut # (Auto) 19.7 H Lymph # (Auto) 0.9 L Sanders # (Auto) 1.0 H Eos # (Auto) 0.0 Baso # (Auto) 0.0 Neutrophils % (Manual) 86 H Band Neutrophils % 3 H Lymphocytes % (Manual) 6 L Monocytes % (Manual) 3 Metamyelocytes % 1 H Myelocytes % 1 H Platelet Estimate Normal Large Platelets Present Giant Platelets Present Hypochromasia (manual) Slight Poikilocytosis (manual Slight Anisocytosis (manual) Slight Tear Drop Cells Slight Ovalocytes Slight Stool Occult Blood Mycoplasma pneumon IgM Ur Strep pneumoniae Ag
--- NOTE | 2017-10-08 14:38 | CP.PCM.PN ---
Subjective - Date & Time of Evaluation Date of Evaluation: 10/08/17 Time of Evaluation: 10:00 - Subjective Subjective: congested but less severe denies fever or abd pain alert nad Objective - Vital Signs/Intake and Output Vital Signs (last 24 hours): Temp Pulse Resp BP Pulse Ox 97.5 F L 114 H 18 112/74 97 10/08/17 12:04 10/08/17 12:04 10/08/17 12:04 10/08/17 12:04 10/08/17 12:04 Intake and Output: 10/08/17 10/08/17 06:59 18:59 Intake Total 250 Output Total 1 Balance 249 - Medications Medications: Current Medications Acetaminophen (Tylenol 325mg Tab) 650 mg PO Q6 PRN PRN Reason: Fever >100.4 F Last Admin: 10/03/17 00:07 Dose: 650 mg Acetaminophen (Tylenol 325mg Tab) 650 mg PO Q6 PRN PRN Reason: Pain, Mild (1-3) Last Admin: 10/04/17 19:54 Dose: 650 mg Albuterol Sulfate (Albuterol 0.083% Inhal Shu (2.5 Mg/3 Ml) Ud) 2.5 mg INH RQ4 PRN PRN Reason: Shortness of Breath Albuterol/Ipratropium (Duoneb 3 Mg/0.5 Mg (3 Ml) Ud) 3 ml INH RQID [facility] Last Admin: 10/08/17 11:19 Dose: 3 ml Amiodarone HCl (Cordarone) 100 mg PO DAILY [facility] Last Admin: 10/08/17 09:42 Dose: 100 mg Anastrozole (Arimidex 1 Mg Tab) 1 mg PO DAILY [facility] Last Admin: 10/08/17 09:47 Dose: 1 mg Ascorbic Acid (Vitamin C 500 Mg Tab) 500 mg PO DAILY [facility] Last Admin: 10/08/17 09:43 Dose: 500 mg Aspirin (Ecotrin) 81 mg PO DAILY [facility] Last Admin: 10/08/17 09:45 Dose: 81 mg Atorvastatin Calcium (Lipitor) 20 mg PO HS [facility] Last Admin: 10/07/17 23:47 Dose: 20 mg Bisacodyl (Dulcolax) 10 mg [place] DAILY PRN PRN Reason: Constipation Last Admin: 10/06/17 21:17 Dose: 10 mg Cholecalciferol (Vitamin D) 1,000 intlu PO DAILY [facility] Last Admin: 10/08/17 09:45 Dose: 1,000 intlu Docusate Sodium (Colace) 200 mg PO DAILY [facility] Last Admin: 10/08/17 09:43 Dose: 200 mg Furosemide (Lasix) 20 mg PO DAILY [facility] Last Admin: 10/08/17 09:44 Dose: 20 mg Guaifenesin (Robitussin) 100 mg PO Q6 PRN PRN Reason: Cough Last Admin: 10/07/17 09:53 Dose: 100 mg Hydrocortisone Sodium Succinate (Solu-Cortef) 100 mg IV Q12 [facility] Last Admin: 10/08/17 09:41 Dose: 100 mg Meropenem 1 gm/ Sodium (Chloride) 100 mls @ 100 mls/hr IVPB Q8 [facility] PRN Reason: Protocol Last Admin: 10/08/17 09:44 Dose: 100 mls/hr Clindamycin Phosphate (Cleocin) 600 mg in 50 mls @ 50 mls/hr IVPB Q8 [facility] PRN Reason: Protocol Last Admin: 10/08/17 09:43 Dose: 50 mls/hr Lactulose (Enulose) 20 gm PO DAILY PRN PRN Reason: Constipation Last Admin: 10/05/17 17:16 Dose: 20 gm Levothyroxine Sodium (Synthroid) 25 mcg PO DAILY@0630 [facility] Last Admin: 10/08/17 07:09 Dose: 25 mcg Losartan Potassium (Cozaar) 25 mg PO DAILY [facility] Last Admin: 10/08/17 09:43 Dose: 25 mg Memantine (Namenda) 10 mg PO DAILY [facility] Last Admin: 10/08/17 09:45 Dose: 10 mg Metoprolol Succinate (Toprol Xl) 25 mg PO DAILY [facility] Last Admin: 10/08/17 09:42 Dose: 25 mg Multivitamins/Minerals (Therapeutic-M Tab) 1 tab PO DAILY [facility] Last Admin: 10/08/17 09:45 Dose: 1 tab Ranolazine (Ranexa) 500 mg PO DAILY [facility] Last Admin: 10/08/17 09:43 Dose: 500 mg Saccharomyces Boulardii (Florastor) 250 mg PO BID [facility] Last Admin: 10/08/17 09:42 Dose: 250 mg Sildenafil Citrate (Revatio) 20 mg PO BID [facility] Last Admin: 07/27/18 09:45 Dose: 20 mg Tramadol HCl (Ultram) 50 mg PO Q4 PRN PRN Reason: Pain, moderate (4-7) Last Admin: 10/05/17 21:43 Dose: 50 mg Vitamin E (Vitamin E 400 Units Cap) 400 intlu PO DAILY [facility] Last Admin: 10/08/17 09:45 Dose: 400 intlu - Labs Labs: 10/08/17 05:09 10/06/17 04:20 - Constitutional Appears: Non-toxic, Chronically Ill - Head Exam Head Exam: NORMOCEPHALIC - Eye Exam Pupil Exam: NORMAL ACCOMODATION - ENT Exam ENT Exam: Mucous Membranes Dry - Neck Exam Neck Exam: absent: Lymphadenopathy - Respiratory Exam Respiratory Exam: Decreased Breath Sounds - Cardiovascular Exam Cardiovascular Exam: REGULAR RHYTHM - GI/Abdominal Exam GI & Abdominal Exam: Distended - Rectal Exam Rectal Exam: Deferred - Exam Exam: NORMAL INSPECTION - Extremities Exam Extremities Exam: Pedal Edema - Back Exam Back Exam: absent: CVA tenderness (L), CVA tenderness (R) - Neurological Exam Neurological Exam: Alert, Awake Assessment and Plan (1) Abdominal pain Status: Acute (2) Sepsis Status: Acute (3) GINNY (acute kidney injury) Status: Acute (4) Acute exacerbation of congestive heart failure Status: Acute (5) Bronchospasm with bronchitis, acute Status: Acute (6) Chest pain Status: Acute - Assessment and Plan (Free Text) Assessment: cont rx for urosepsis/ pneumonia consider levofloxacin monotherapy when condition allows
[2017-10-08] MEDS: guaiFENesin 100 mg/5 ml Syrup UD PO PRN (17:10)
--- NOTE | 2017-10-08 17:31 | CP.PCM.PN ---
Subjective - Date & Time of Evaluation Date of Evaluation: 10/08/17 Time of Evaluation: 11:40 - Subjective Subjective: Patient seen and examined. Claimed she was feeling better although still with SOB. Objective - Vital Signs/Intake and Output Vital Signs (last 24 hours): Temp Pulse Resp BP Pulse Ox 97.4 F L 106 H 20 107/60 96 10/08/17 15:55 10/08/17 15:55 10/08/17 15:55 10/08/17 15:55 10/08/17 15:55 Intake and Output: 10/08/17 10/08/17 06:59 18:59 Intake Total 250 Output Total 1 Balance 249 - Medications Medications: Current Medications Acetaminophen (Tylenol 325mg Tab) 650 mg PO Q6 PRN PRN Reason: Fever >100.4 F Last Admin: 10/03/17 00:07 Dose: 650 mg Acetaminophen (Tylenol 325mg Tab) 650 mg PO Q6 PRN PRN Reason: Pain, Mild (1-3) Last Admin: 10/04/17 19:54 Dose: 650 mg Albuterol Sulfate (Albuterol 0.083% Inhal Shu (2.5 Mg/3 Ml) Ud) 2.5 mg INH RQ4 PRN PRN Reason: Shortness of Breath Albuterol/Ipratropium (Duoneb 3 Mg/0.5 Mg (3 Ml) Ud) 3 ml INH RQID [facility] Last Admin: 10/08/17 15:43 Dose: 3 ml Amiodarone HCl (Cordarone) 100 mg PO DAILY [facility] Last Admin: 10/08/17 09:42 Dose: 100 mg Anastrozole (Arimidex 1 Mg Tab) 1 mg PO DAILY [facility] Last Admin: 10/08/17 09:47 Dose: 1 mg Ascorbic Acid (Vitamin C 500 Mg Tab) 500 mg PO DAILY [facility] Last Admin: 10/08/17 09:43 Dose: 500 mg Aspirin (Ecotrin) 81 mg PO DAILY [facility] Last Admin: 10/08/17 09:45 Dose: 81 mg Atorvastatin Calcium (Lipitor) 20 mg PO HS [facility] Last Admin: 10/07/17 23:47 Dose: 20 mg Bisacodyl (Dulcolax) [address] DAILY PRN PRN Reason: Constipation Last Admin: 10/06/17 21:17 Dose: 10 mg Cholecalciferol (Vitamin D) 1,000 intlu PO DAILY [facility] Last Admin: 10/08/17 09:45 Dose: 1,000 intlu Docusate Sodium (Colace) 200 mg PO DAILY [facility] Last Admin: 10/08/17 09:43 Dose: 200 mg Furosemide (Lasix) 20 mg PO DAILY [facility] Last Admin: 10/08/17 09:44 Dose: 20 mg Guaifenesin (Robitussin) 100 mg PO Q6 PRN PRN Reason: Cough Last Admin: 10/08/17 17:10 Dose: 100 mg Hydrocortisone Sodium Succinate (Solu-Cortef) 100 mg IV Q12 [facility] Last Admin: 10/08/17 09:41 Dose: 100 mg Meropenem 1 gm/ Sodium (Chloride) 100 mls @ 100 mls/hr IVPB Q8 [facility] PRN Reason: Protocol Last Admin: 10/08/17 16:37 Dose: 100 mls/hr Clindamycin Phosphate (Cleocin) 600 mg in 50 mls @ 50 mls/hr IVPB Q8 [facility] PRN Reason: Protocol Last Admin: 10/08/17 16:36 Dose: 50 mls/hr Lactulose (Enulose) 20 gm PO DAILY PRN PRN Reason: Constipation Last Admin: 10/05/17 17:16 Dose: 20 gm Levothyroxine Sodium (Synthroid) 25 mcg PO DAILY@0630 [facility] Last Admin: 10/08/17 07:09 Dose: 25 mcg Losartan Potassium (Cozaar) 25 mg PO DAILY [facility] Last Admin: 10/08/17 09:43 Dose: 25 mg Memantine (Namenda) 10 mg PO DAILY [facility] Last Admin: 10/08/17 09:45 Dose: 10 mg Metoprolol Succinate (Toprol Xl) 25 mg PO DAILY [facility] Last Admin: 10/08/17 09:42 Dose: 25 mg Multivitamins/Minerals (Therapeutic-M Tab) 1 tab PO DAILY [facility] Last Admin: 10/08/17 09:45 Dose: 1 tab Ranolazine (Ranexa) 500 mg PO DAILY [facility] Last Admin: 10/08/17 09:43 Dose: 500 mg Saccharomyces Boulardii (Florastor) 250 mg PO BID [facility] Last Admin: 10/08/17 16:37 Dose: 250 mg Sildenafil Citrate (Revatio) 20 mg PO BID [facility] Last Admin: 10/08/17 16:38 Dose: 20 mg Vitamin E (Vitamin E 400 Units Cap) 400 intlu PO DAILY [facility] Last Admin: 10/08/17 09:45 Dose: 400 intlu - Labs Labs: 10/08/17 05:09 10/06/17 04:20 - Constitutional Appears: No Acute Distress - Head Exam Head Exam: ATRAUMATIC - Eye Exam Eye Exam: absent: Scleral icterus - ENT Exam ENT Exam: Mucous Membranes Moist - Neck Exam Neck Exam: absent: Meningismus - Respiratory Exam Respiratory Exam: Rhonchi. absent: Wheezes, Respiratory Distress - Cardiovascular Exam Cardiovascular Exam: REGULAR RHYTHM, +S1, +S2 - GI/Abdominal Exam GI & Abdominal Exam: Soft. absent: Tenderness - Rectal Exam Rectal Exam: Deferred - Neurological Exam Neurological Exam: Alert, Oriented x3 - Psychiatric Exam Psychiatric exam: Normal Affect - Skin Skin Exam: Dry, Intact Assessment and Plan - Assessment and Plan (Free Text) Assessment: 81 yo female with history of Cardiomyopathy with AICD, Pulmonary HTN, COPD, HTN , HLD, Hypothyroidism, Osteoporosis, RA and CKD stage III admitted because of abdominal pain on 10/02/17 and was found to be Septic secondary to UTI. 1. Sepsis urine and blood culture grew Klebsiella Pneumonia continue IV Meropenem and Clindamycin for 2 weeks afebrile, but WBC still elevated although trending down Dr West on ID consult 2. UTI no dysuria on IV antibiotics 3. COPD exacerbation continue Duoneb prn 4. Cardiomyopathy CXray showed mild pulmonary congestion ProBNP: [id number] follow up consult with Dr Da Silva we will need titration of her cardiac meds continue Amiodarone, Lasix, Losartan and Metoprolol will increase Lasix to 40mg PO daily 5. Acute on CKD stage III worsened because of poor renal perfusion secondary to cardiomyopathy
[2017-10-09] MEDS: Clindamycin 600mg/50ml D5W 600 MG/50 ML VIAL IVPB SCH (01:30)
[2017-10-09] MEDS: Albuterol-Ipratrop 3 mg / 0.5 (3 ml) UD INH SCH ×4 (07:26→19:13)
[2017-10-09] MEDS: Multivitamin With Minerals Tab PO SCH (10:15)
[2017-10-09] MEDS: Ranolazine 500 mg Extended Release Tablets PO SCH (10:15)
[2017-10-09] MEDS: Saccharomyces Boulardi 250 mg Cap PO SCH ×2 (10:15→17:07)
[2017-10-09] MEDS: Cholecalciferol 1,000 INTLU TAB PO SCH (10:16)
[2017-10-09] MEDS: Sildenafil 20 MG TAB PO SCH ×2 (10:16→17:11)
[2017-10-09] MEDS: Metoprolol Succinate 25 mg XL Tab PO SCH (10:22)
--- NOTE | 2017-10-09 11:21 | CP.PCM.PN ---
Subjective - Date & Time of Evaluation Date of Evaluation: 10/09/17 Time of Evaluation: 11:19 - Subjective Subjective: Appears to be doing well on the current regimen. Has completed 5 days of IV meropenem. Cultures are susceptible to quinolone, but use with amiodarone is not recommended (QTC). Leukocytosis has decreased gradually over the 5 days, and yesterday's is 21.6. She has remained afebrile and normotensive, albeit mildly tachycardic. She is no longer coughing up thick purulent sputum, and the clindamycin will be discontinued. There is no cyanosis and minimal dependant edema. Neck veins do not appear distended, trachea is midline. Dullness is noted at the lung bases posteriorly. Medium rales are present in the left base w/o bronchial breathing or egophony. No audible wheezing appreciated. Heart sounds well heard and regular rhythm. Will D/C clindamycin. Meropenem has stopped per pharnacy protocol. Quinolones are not recommended with concurrent amiodarone. Will use ceftriaxone based on the sensitivities, 2 GM daily. Request further input from ID as to the acceptability of the above. Objective - Vital Signs/Intake and Output Vital Signs (last 24 hours): Temp Pulse Resp BP Pulse Ox 97.5 F L 117 H 18 124/75 96 10/09/17 08:10 10/09/17 10:22 10/09/17 08:10 10/09/17 10:22 10/09/17 08:10 Intake and Output: 10/08/17 10/09/17 23:59 11:59 Intake Total 850 Balance 850 - Medications Medications: Current Medications Acetaminophen (Tylenol 325mg Tab) 650 mg PO Q6 PRN PRN Reason: Fever >100.4 F Last Admin: 10/03/17 00:07 Dose: 650 mg Acetaminophen (Tylenol 325mg Tab) 650 mg PO Q6 PRN PRN Reason: Pain, Mild (1-3) Last Admin: 10/04/17 19:54 Dose: 650 mg Albuterol Sulfate (Albuterol 0.083% Inhal Shu (2.5 Mg/3 Ml) Ud) 2.5 mg INH RQ4 PRN PRN Reason: Shortness of Breath Albuterol/Ipratropium (Duoneb 3 Mg/0.5 Mg (3 Ml) Ud) 3 ml INH RQID [facility] Last Admin: 10/09/17 11:16 Dose: 3 ml Amiodarone HCl (Cordarone) 100 mg PO DAILY [facility] Last Admin: 10/09/17 10:18 Dose: 100 mg Anastrozole (Arimidex 1 Mg Tab) 1 mg PO DAILY [facility] Last Admin: 10/09/17 10:17 Dose: 1 mg Ascorbic Acid (Vitamin C 500 Mg Tab) 500 mg PO DAILY [facility] Last Admin: 10/09/17 10:20 Dose: 500 mg Aspirin (Ecotrin) 81 mg PO DAILY [facility] Last Admin: 10/09/17 10:21 Dose: 81 mg Atorvastatin Calcium (Lipitor) 20 mg PO HS [facility] Last Admin: 10/08/17 21:30 Dose: 20 mg Bisacodyl (Dulcolax) 10 mg [place] DAILY PRN PRN Reason: Constipation Last Admin: 10/06/17 21:17 Dose: 10 mg Cholecalciferol (Vitamin D) 1,000 intlu PO DAILY [facility] Last Admin: 10/09/17 10:16 Dose: 1,000 intlu Docusate Sodium (Colace) 200 mg PO DAILY [facility] Last Admin: 10/09/17 10:17 Dose: 200 mg Furosemide (Lasix) 40 mg PO DAILY [facility] Last Admin: 10/09/17 10:21 Dose: 40 mg Guaifenesin (Robitussin) 100 mg PO Q6 PRN PRN Reason: Cough Last Admin: 10/08/17 17:10 Dose: 100 mg Hydrocortisone Sodium Succinate (Solu-Cortef) 100 mg IV Q12 [facility] Lactulose (Enulose) 20 gm PO DAILY PRN PRN Reason: Constipation Last Admin: 10/05/17 17:16 Dose: 20 gm Levothyroxine Sodium (Synthroid) 25 mcg PO DAILY@0630 [facility] Last Admin: 10/08/17 07:09 Dose: 25 mcg Losartan Potassium (Cozaar) 25 mg PO DAILY [facility] Last Admin: 10/09/17 10:20 Dose: 25 mg Memantine (Namenda) 10 mg PO DAILY [facility] Last Admin: 10/09/17 10:21 Dose: 10 mg Metoprolol Succinate (Toprol Xl) 25 mg PO DAILY [facility] Last Admin: 10/09/17 10:22 Dose: 25 mg Multivitamins/Minerals (Therapeutic-M Tab) 1 tab PO DAILY [facility] Last Admin: 10/09/17 10:15 Dose: 1 tab Ranolazine (Ranexa) 500 mg PO DAILY [facility] Last Admin: 10/09/17 10:15 Dose: 500 mg Saccharomyces Boulardii (Florastor) 250 mg PO BID [facility] Last Admin: 10/09/17 10:15 Dose: 250 mg Sildenafil Citrate (Revatio) 20 mg PO BID [facility] Last Admin: 10/09/17 10:16 Dose: 20 mg Vitamin E (Vitamin E 400 Units Cap) 400 intlu PO DAILY [facility] Last Admin: 10/09/17 10:16 Dose: 400 intlu - Labs Labs: 10/08/17 05:09 10/06/17 04:20 Assessment and Plan (1) Abdominal pain Status: Acute (2) Sepsis Status: Acute (3) Pneumonia Status: Acute (4) Hydroureteronephrosis Status: Acute (5) Suspected urinary tract infection Status: Acute (6) Chronic constipation Status: Chronic
[2017-10-09] MEDS: cefTRIAXone 2 GM in Sodium Chloride 0.9% 100 ML IVPB SCH (12:38)
--- NOTE | 2017-10-09 13:47 | RAD ---
Date of service: 10/09/2017 HISTORY: SOB COMPARISON: Chest radiograph dated 10/06/2017. FINDINGS: LUNGS: Stable chronic prominence of the bilateral interstitial markings. No focal consolidation. PLEURA: No significant pleural effusion identified, no pneumothorax apparent. CARDIOVASCULAR: And right subclavian access AICD/ pacemaker redemonstrated. Atherosclerotic aortic calcifications. Cardiomediastinal silhouette stably enlarged. OSSEOUS STRUCTURES: Unchanged. VISUALIZED UPPER ABDOMEN: Normal. OTHER FINDINGS: Left axillary surgical clips redemonstrated. IMPRESSION: Stable chronic prominence of the bilateral interstitial markings. No focal consolidation or pleural effusion.
--- NOTE | 2017-10-09 15:04 | CP.PCM.PN ---
Subjective - Date & Time of Evaluation Date of Evaluation: 10/09/17 Time of Evaluation: 11:00 - Subjective Subjective: Patient seen and examined. Appeared weak. Although did not appear SOB, she claimed she still have difficulty breathing. Objective - Vital Signs/Intake and Output Vital Signs (last 24 hours): Temp Pulse Resp BP Pulse Ox 97.9 F 111 H 18 111/70 97 10/09/17 12:18 10/09/17 12:18 10/09/17 12:18 10/09/17 12:18 10/09/17 12:18 - Medications Medications: Current Medications Acetaminophen (Tylenol 325mg Tab) 650 mg PO Q6 PRN PRN Reason: Fever >100.4 F Last Admin: 10/03/17 00:07 Dose: 650 mg Acetaminophen (Tylenol 325mg Tab) 650 mg PO Q6 PRN PRN Reason: Pain, Mild (1-3) Last Admin: 10/04/17 19:54 Dose: 650 mg Albuterol Sulfate (Albuterol 0.083% Inhal Shu (2.5 Mg/3 Ml) Ud) 2.5 mg INH RQ4 PRN PRN Reason: Shortness of Breath Albuterol/Ipratropium (Duoneb 3 Mg/0.5 Mg (3 Ml) Ud) 3 ml INH RQID [facility] Last Admin: 10/09/17 11:16 Dose: 3 ml Amiodarone HCl (Cordarone) 100 mg PO DAILY [facility] Last Admin: 10/09/17 10:18 Dose: 100 mg Anastrozole (Arimidex 1 Mg Tab) 1 mg PO DAILY [facility] Last Admin: 10/09/17 10:17 Dose: 1 mg Ascorbic Acid (Vitamin C 500 Mg Tab) 500 mg PO DAILY [facility] Last Admin: 10/09/17 10:20 Dose: 500 mg Aspirin (Ecotrin) 81 mg PO DAILY [facility] Last Admin: 10/09/17 10:21 Dose: 81 mg Atorvastatin Calcium (Lipitor) 20 mg PO HS [facility] Last Admin: 10/08/17 21:30 Dose: 20 mg Bisacodyl (Dulcolax) 10 mg [place] DAILY PRN PRN Reason: Constipation Last Admin: 10/06/17 21:17 Dose: 10 mg Cholecalciferol (Vitamin D) 1,000 intlu PO DAILY [facility] Last Admin: 10/09/17 10:16 Dose: 1,000 intlu Docusate Sodium (Colace) 200 mg PO DAILY [facility] Last Admin: 10/09/17 10:17 Dose: 200 mg Furosemide (Lasix) 40 mg PO DAILY [facility] Last Admin: 10/09/17 10:21 Dose: 40 mg Guaifenesin (Robitussin) 100 mg PO Q6 PRN PRN Reason: Cough Last Admin: 10/08/17 17:10 Dose: 100 mg Hydrocortisone Sodium Succinate (Solu-Cortef) 100 mg IV Q12 [facility] Ceftriaxone Sodium 2 gm/ (Sodium Chloride) 100 mls @ 100 mls/hr IVPB DAILY [facility] PRN Reason: Protocol Last Admin: 10/09/17 12:38 Dose: 100 mls/hr Milrinone Lactate/Dextrose (Primacor 20mg/100ml D5w) 100 mls @ 3.231 mls/hr IV .Q24H [facility]; 0.15 MCG/KG/MIN PRN Reason: Protocol Lactulose (Enulose) 20 gm PO DAILY PRN PRN Reason: Constipation Last Admin: 10/05/17 17:16 Dose: 20 gm Levothyroxine Sodium (Synthroid) 25 mcg PO DAILY@0630 [facility] Last Admin: 10/08/17 07:09 Dose: 25 mcg Losartan Potassium (Cozaar) 25 mg PO DAILY [facility] Last Admin: 10/09/17 10:20 Dose: 25 mg Memantine (Namenda) 10 mg PO DAILY [facility] Last Admin: 10/09/17 10:21 Dose: 10 mg Metoprolol Succinate (Toprol Xl) 25 mg PO DAILY [facility] Last Admin: 10/09/17 10:22 Dose: 25 mg Multivitamins/Minerals (Therapeutic-M Tab) 1 tab PO DAILY [facility] Last Admin: 10/09/17 10:15 Dose: 1 tab Ranolazine (Ranexa) 500 mg PO DAILY [facility] Last Admin: 10/09/17 10:15 Dose: 500 mg Saccharomyces Boulardii (Florastor) 250 mg PO BID [facility] Last Admin: 10/09/17 10:15 Dose: 250 mg Sildenafil Citrate (Revatio) 20 mg PO BID [facility] Last Admin: 10/09/17 10:16 Dose: 20 mg - Labs Labs: 10/08/17 05:09 10/06/17 04:20 - Constitutional Appears: No Acute Distress - Head Exam Head Exam: ATRAUMATIC - Eye Exam Eye Exam: absent: Scleral icterus - ENT Exam ENT Exam: Mucous Membranes Moist - Neck Exam Neck Exam: absent: Meningismus - Respiratory Exam Respiratory Exam: Rales (both bases). absent: Wheezes, Respiratory Distress - Cardiovascular Exam Cardiovascular Exam: REGULAR RHYTHM, +S1, +S2 - GI/Abdominal Exam GI & Abdominal Exam: Soft. absent: Tenderness - Rectal Exam Rectal Exam: Deferred - Neurological Exam Neurological Exam: Alert, Oriented x3 - Psychiatric Exam Psychiatric exam: Normal Affect - Skin Skin Exam: Dry, Intact Assessment and Plan - Assessment and Plan (Free Text) Assessment: 81 yo female with history of Cardiomyopathy with AICD, Pulmonary HTN, COPD, HTN , HLD, Hypothyroidism, Osteoporosis, RA and CKD stage III admitted because of abdominal pain on 10/02/17 and was found to be Septic secondary to UTI. 1. Sepsis urine and blood culture grew Klebsiella Pneumonia antibiotic switched to Rocephin which is also active against Klebsiella afebrile, WBC still elevated but trending down Dr West on ID consult 2. UTI no dysuria continue IV Rocephin 3. COPD exacerbation continue Duoneb prn 4. Cardiomyopathy CXray showed mild pulmonary congestion ProBNP: went up from 5430 to [address] Da Silva informed and advised to put patient on Milrinone increase Lasix to 40mg PO daily Troponin 5. Acute on CKD stage III worsened because of poor renal perfusion secondary to cardiomyopathy
[2017-10-09] MEDS: Milrinone 20mg/100ml D5W 100 ML IV SCH (17:08)
[2017-10-10] MEDS: Levothyroxine 25 MCG TAB PO SCH (06:01)
[2017-10-10] MEDS: Albuterol-Ipratrop 3 mg / 0.5 (3 ml) UD INH SCH ×4 (07:55→19:19)
[2017-10-10] MEDS ORDERED: Hydrocortisone- 100 MG in Sodium Chloride 0.9% 100 ML IV SCH (09:00)
[2017-10-10] MEDS: Saccharomyces Boulardi 250 mg Cap PO SCH ×2 (09:31→16:23)
[2017-10-10] MEDS: cefTRIAXone 2 GM in Sodium Chloride 0.9% 100 ML IVPB SCH (09:33)
[2017-10-10] MEDS: Ranolazine 500 mg Extended Release Tablets PO SCH (09:33)
[2017-10-10] MEDS: Sildenafil 20 MG TAB PO SCH ×2 (09:33→16:23)
[2017-10-10] MEDS: Multivitamin With Minerals Tab PO SCH (09:36)
[2017-10-10] MEDS: Metoprolol Succinate 25 mg XL Tab PO SCH (09:36)
[2017-10-10] MEDS: Cholecalciferol 1,000 INTLU TAB PO SCH (09:37)
--- NOTE | 2017-10-10 12:35 | CP.PCM.PN ---
Subjective - Date & Time of Evaluation Date of Evaluation: 10/10/17 Time of Evaluation: 12:27 - Subjective Subjective: pt states she feels improved fatigues with normal conversation Objective - Vital Signs/Intake and Output Vital Signs (last 24 hours): Temp Pulse Resp BP Pulse Ox 98 F 114 H 18 95/62 L 99 10/10/17 12:12 10/10/17 12:12 10/10/17 12:12 10/10/17 12:12 10/10/17 12:12 Vitals Reviewed GEN: WDWN, alert, cooperative HEENT: NCAT, PERRL, EOMI HEART: RRR, +S1S2, NO MRG LUNG: coarse bs, wheezes ABD: soft, NT, ND, No HSM, No masses EXT: normal pedal pulses, normal capillary refill NEURO: awake, alert, no focal deficits SKIN: warm, dry PSYCH: normal mood, normal affect - Medications Medications: Current Medications Acetaminophen (Tylenol 325mg Tab) 650 mg PO Q6 PRN PRN Reason: Fever >100.4 F Last Admin: 10/03/17 00:07 Dose: 650 mg Acetaminophen (Tylenol 325mg Tab) 650 mg PO Q6 PRN PRN Reason: Pain, Mild (1-3) Last Admin: 10/04/17 19:54 Dose: 650 mg Albuterol Sulfate (Albuterol 0.083% Inhal Shu (2.5 Mg/3 Ml) Ud) 2.5 mg INH RQ4 PRN PRN Reason: Shortness of Breath Albuterol/Ipratropium (Duoneb 3 Mg/0.5 Mg (3 Ml) Ud) 3 ml INH RQID [facility] Last Admin: 10/10/17 07:55 Dose: 3 ml Amiodarone HCl (Cordarone) 100 mg PO DAILY [facility] Last Admin: 10/10/17 09:29 Dose: 100 mg Anastrozole (Arimidex 1 Mg Tab) 1 mg PO DAILY [facility] Last Admin: 10/10/17 09:28 Dose: 1 mg Ascorbic Acid (Vitamin C 500 Mg Tab) 500 mg PO DAILY [facility] Last Admin: 10/10/17 09:37 Dose: 500 mg Aspirin (Ecotrin) 81 mg PO DAILY [facility] Last Admin: 10/10/17 09:31 Dose: 81 mg Atorvastatin Calcium (Lipitor) 20 mg PO [facility] Last Admin: 10/09/17 21:10 Dose: 20 mg Bisacodyl (Dulcolax) 10 mg [place] DAILY PRN PRN Reason: Constipation Last Admin: 10/06/17 21:17 Dose: 10 mg Cholecalciferol (Vitamin D) 1,000 intlu PO DAILY [facility] Last Admin: 10/10/17 09:37 Dose: 1,000 intlu Docusate Sodium (Colace) 200 mg PO DAILY [facility] Last Admin: 10/10/17 09:28 Dose: 200 mg Furosemide (Lasix) 40 mg PO DAILY [facility] Last Admin: 10/10/17 09:31 Dose: 40 mg Guaifenesin (Robitussin) 100 mg PO Q6 PRN PRN Reason: Cough Last Admin: 10/08/17 17:10 Dose: 100 mg Hydrocortisone Sodium Succinate (Solu-Cortef) 100 mg IV Q12 [facility] Last Admin: 10/10/17 09:34 Dose: 100 mg Ceftriaxone Sodium 2 gm/ (Sodium Chloride) 100 mls @ 100 mls/hr IVPB DAILY [facility] PRN Reason: Protocol Last Admin: 10/10/17 09:33 Dose: 100 mls/hr Milrinone Lactate/Dextrose (Primacor 20mg/100ml D5w) 100 mls @ 3.231 mls/hr IV .Q24H [facility]; 0.15 MCG/KG/MIN PRN Reason: Protocol Last Admin: 10/09/17 17:08 Dose: 0.15 mcg/kg/min, 3.231 mls/hr Lactulose (Enulose) 20 gm PO DAILY PRN PRN Reason: Constipation Last Admin: 10/05/17 17:16 Dose: 20 gm Levothyroxine Sodium (Synthroid) 25 mcg PO DAILY@0630 [facility] Last Admin: 10/10/17 06:01 Dose: 25 mcg Losartan Potassium (Cozaar) 25 mg PO DAILY [facility] Last Admin: 10/10/17 09:30 Dose: 25 mg Memantine (Namenda) 10 mg PO DAILY [facility] Last Admin: 10/10/17 09:32 Dose: 10 mg Metoprolol Succinate (Toprol Xl) 25 mg PO DAILY [facility] Last Admin: 10/10/17 09:36 Dose: 25 mg Multivitamins/Minerals (Therapeutic-M Tab) 1 tab PO DAILY [facility] Last Admin: 10/10/17 09:36 Dose: 1 tab Ranolazine (Ranexa) 500 mg PO DAILY [facility] Last Admin: 10/10/17 09:33 Dose: 500 mg Saccharomyces Boulardii (Florastor) 250 mg PO BID [facility] Last Admin: 10/10/17 09:31 Dose: 250 mg Sildenafil Citrate (Revatio) 20 mg PO BID [facility] Last Admin: 10/10/17 09:33 Dose: 20 mg - Labs Labs: 10/08/17 05:09 10/06/17 04:20 Assessment and Plan - Assessment and Plan (Free Text) Plan: This is a 81 female with a history of cardiomyopathy EF 25-30% , s/p AICD, anxiety, pulmonary hypertension, COPD (ex smoker), HTN, Dyslipidemia, Hypothyroidism, lower back pain, sciatica, osteoporosis, RA, CKD stage III, presenting to the ED with the complaint of abdominal pain, subsequently admitted for sepsis secondary to UTI as well as left lower lobe pneumonia, now hemodynamically stable on telemetry. very slow improvement, today feels improved however fatiguing with conversation unable to ambulate without severe dyspnea PT 1) Sepsis secondary to UTI and left lower lobe pneumonia, slowly resolving WBC trending down, rpt CXR yesterday, no focal consolidations, chronic interstitial changes. ID Consultation with Dr. West appreciated, Merrem was stopped, pt now on Ceftriaxone per sensitivities No quinolones 2/2 Amio use and prolonged QTc Cultures- +Klebsiella pneumoniae - Sputum CX - Procalcitonin 58.23 - CT abd/pelvis- mild left hydroureteronephrosis without evidence of obstructing calculus. Left lower lobe infiltrate, r/o pneumonia - F/u renal ultrasound as ordered by Dr. Gomez to ensure no stone seen (patient unable to tolerate today due to shortness of breath) 2) Left lower lobe pneumonia - f/u sputum cx, so far no organisms seen - duonebs - Montior respiratory status - abx bronchodilators as above 3) Systolic and diastolic CHF,chronic , more hypervolemic. Pulmonary HTN, severe - EF 25% - Consultation with Dr. Da Silva appreciated - Caution with hydration - Restart Lasix 20 mg po daily, with 40 mg IVP given today due to hypervolemia - ASA - Restart Sildenafil - Amiodarone 4) Acute on chronic kidney disease stage III - Caution with antibiotics causing nephrotoxicity - Stabilized 5) COPD - Chronic, at baseline - Duoneb changed to scheduled q4 hours and PRN - Dr. Gomez consult 6) Hypothyroidism Chronic Continue Levothyroxine 7) DVT prophylaxis - Heparin
[2017-10-10] MEDS ORDERED: Metoprolol Succinate 25 mg XL Tab PO SCH (12:41)
[2017-10-10] MEDS ORDERED: Enoxaparin 30 mg Syringe SC STA (12:57)
--- NOTE | 2017-10-10 14:04 | CP.PCM.PN ---
Subjective - Date & Time of Evaluation Date of Evaluation: 10/10/17 Time of Evaluation: 08:00 - Subjective Subjective: still has dry cough and mild SOB denies chest pain AAO x3 NAD Objective - Vital Signs/Intake and Output Vital Signs (last 24 hours): Temp Pulse Resp BP Pulse Ox 98 F 114 H 18 95/62 L 99 10/10/17 12:12 10/10/17 12:12 10/10/17 12:12 10/10/17 12:12 10/10/17 12:12 - Medications Medications: Current Medications Acetaminophen (Tylenol 325mg Tab) 650 mg PO Q6 PRN PRN Reason: Fever >100.4 F Last Admin: 10/03/17 00:07 Dose: 650 mg Acetaminophen (Tylenol 325mg Tab) 650 mg PO Q6 PRN PRN Reason: Pain, Mild (1-3) Last Admin: 10/04/17 19:54 Dose: 650 mg Albuterol Sulfate (Albuterol 0.083% Inhal Shu (2.5 Mg/3 Ml) Ud) 2.5 mg INH RQ4 PRN PRN Reason: Shortness of Breath Albuterol/Ipratropium (Duoneb 3 Mg/0.5 Mg (3 Ml) Ud) 3 ml INH RQID [facility] Last Admin: 10/10/17 07:55 Dose: 3 ml Amiodarone HCl (Cordarone) 100 mg PO DAILY [facility] Last Admin: 10/10/17 09:29 Dose: 100 mg Anastrozole (Arimidex 1 Mg Tab) 1 mg PO DAILY [facility] Last Admin: 10/10/17 09:28 Dose: 1 mg Ascorbic Acid (Vitamin C 500 Mg Tab) 500 mg PO DAILY [facility] Last Admin: 10/10/17 09:37 Dose: 500 mg Aspirin (Ecotrin) 81 mg PO DAILY [facility] Last Admin: 10/10/17 09:31 Dose: 81 mg Atorvastatin Calcium (Lipitor) 20 mg PO HS [facility] Last Admin: 10/09/17 21:10 Dose: 20 mg Bisacodyl (Dulcolax) 10 mg [place] DAILY PRN PRN Reason: Constipation Last Admin: 10/06/17 21:17 Dose: 10 mg Cholecalciferol (Vitamin D) 1,000 intlu PO DAILY [facility] Last Admin: 10/10/17 09:37 Dose: 1,000 intlu Docusate Sodium (Colace) 200 mg PO DAILY [facility] Last Admin: 10/10/17 09:28 Dose: 200 mg Enoxaparin Sodium (Lovenox) 30 mg [place] DAILY [facility] PRN Reason: Protocol Furosemide (Lasix) 40 mg PO DAILY [facility] Last Admin: 10/10/17 09:31 Dose: 40 mg Guaifenesin (Robitussin) 100 mg PO Q6 PRN PRN Reason: Cough Last Admin: 10/08/17 17:10 Dose: 100 mg Hydrocortisone Sodium Succinate (Solu-Cortef) 100 mg IV Q12 [facility] Last Admin: 10/10/17 09:34 Dose: 100 mg Ceftriaxone Sodium 2 gm/ (Sodium Chloride) 100 mls @ 100 mls/hr IVPB DAILY [facility] PRN Reason: Protocol Last Admin: 10/10/17 09:33 Dose: 100 mls/hr Milrinone Lactate/Dextrose (Primacor 20mg/100ml D5w) 100 mls @ 3.231 mls/hr IV .Q24H [facility]; 0.15 MCG/KG/MIN PRN Reason: Protocol Last Admin: 10/09/17 17:08 Dose: 0.15 mcg/kg/min, 3.231 mls/hr Lactulose (Enulose) 20 gm PO DAILY PRN PRN Reason: Constipation Last Admin: 10/05/17 17:16 Dose: 20 gm Levothyroxine Sodium (Synthroid) 25 mcg PO DAILY@0630 [facility] Last Admin: 10/10/17 06:01 Dose: 25 mcg Losartan Potassium (Cozaar) 25 mg PO DAILY [facility] Last Admin: 10/10/17 09:30 Dose: 25 mg Memantine (Namenda) 10 mg PO DAILY [facility] Last Admin: 10/10/17 09:32 Dose: 10 mg Metoprolol Succinate (Toprol Xl) 50 mg PO DAILY [facility] Multivitamins/Minerals (Therapeutic-M Tab) 1 tab PO DAILY [facility] Last Admin: 10/10/17 09:36 Dose: 1 tab Ranolazine (Ranexa) 500 mg PO DAILY [facility] Last Admin: 10/10/17 09:33 Dose: 500 mg Saccharomyces Boulardii (Florastor) 250 mg PO BID [facility] Last Admin: 10/10/17 09:31 Dose: 250 mg Sildenafil Citrate (Revatio) 20 mg PO BID [facility] Last Admin: 10/10/17 09:33 Dose: 20 mg - Labs Labs: 10/08/17 05:09 10/06/17 04:20 - Constitutional Appears: Non-toxic, Chronically Ill - Head Exam Head Exam: NORMOCEPHALIC - Eye Exam Eye Exam: PERRL - ENT Exam ENT Exam: Mucous Membranes Dry - Neck Exam Neck Exam: absent: Lymphadenopathy - Respiratory Exam Respiratory Exam: Decreased Breath Sounds - Cardiovascular Exam Cardiovascular Exam: REGULAR RHYTHM - GI/Abdominal Exam GI & Abdominal Exam: Distended - Rectal Exam Rectal Exam: Deferred - Exam Exam: NORMAL INSPECTION - Extremities Exam Extremities Exam: absent: Pedal Edema - Back Exam Back Exam: absent: CVA tenderness (L), CVA tenderness (R) - Neurological Exam Neurological Exam: Alert, Awake, Oriented x3 Assessment and Plan (1) Abdominal pain Status: Acute (2) Sepsis Status: Acute (3) GINNY (acute kidney injury) Status: Acute (4) Acute exacerbation of congestive heart failure Status: Acute (5) Bronchospasm with bronchitis, acute Status: Acute (6) Chest pain Status: Acute - Assessment and Plan (Free Text) Assessment: cont iv rx as per Dr Gomez
[2017-10-10] MEDS: Milrinone 20mg/100ml D5W 100 ML IV SCH (14:15)
[2017-10-11] MEDS: Albuterol 0.083% Inhal Sol (2.5 mg/3 mL) UD INH PRN (03:34)
[2017-10-11] MEDS: Levothyroxine 25 MCG TAB PO SCH (06:31)
[2017-10-11 06:40] LABS: CALCIUM 8.1 mg/dL (8.4-10.2)
[2017-10-11 07:01] LABS: BASO % 0.2 % (0.0-2.0); HEMOGLOBIN 10.3 g/dL (12.0-16.0); LYMPH # 0.8 K/uL (1.0-4.3); LYMPH % 3.8 % (20.0-40.0); MEAN CELL VOLUME 95.5 fl (81.0-99.0); MEAN CORPUSCULAR HEMOGLOBIN 31.7 pg (27.0-31.0); MEAN CORPUSCULAR HGB CONC 33.2 g/dL (33.0-37.0); MEAN PLATELET VOLUME 9.7 fl (7.2-11.7); MONO % 4.6 % (0.0-10.0); NEUT # 19.9 K/uL (1.8-7.0); NEUT % 91.4 % (50.0-75.0); PLATELET COUNT 297 K/uL (130-400); RBC 3.25 Mil/uL (3.80-5.20); RED CELL DISTRIBUTION WIDTH 14.6 % (11.5-14.5); WHITE BLOOD COUNT 21.8 K/uL (4.8-10.8)
[2017-10-11] MEDS: Albuterol-Ipratrop 3 mg / 0.5 (3 ml) UD INH SCH ×4 (07:30→19:07)
[2017-10-11] MEDS: Saccharomyces Boulardi 250 mg Cap PO SCH ×2 (09:51→16:53)
[2017-10-11] MEDS: Ranolazine 500 mg Extended Release Tablets PO SCH (09:52)
[2017-10-11] MEDS: Enoxaparin 30 mg Syringe SC SCH (09:52)
[2017-10-11] MEDS: Sildenafil 20 MG TAB PO SCH ×2 (09:52→16:53)
[2017-10-11] MEDS: cefTRIAXone 2 GM in Sodium Chloride 0.9% 100 ML IVPB SCH (09:53)
[2017-10-11] MEDS: Multivitamin With Minerals Tab PO SCH (09:54)
[2017-10-11] MEDS: Cholecalciferol 1,000 INTLU TAB PO SCH (09:56)
--- NOTE | 2017-10-11 10:51 | CP.PCM.PN ---
Subjective - Date & Time of Evaluation Date of Evaluation: 10/11/17 Time of Evaluation: 10:44 - Subjective Subjective: Appears improved today with addition of milrinone. Voice is still slightly hoarse, possibly from inhalation therapy. Has been OOB to chair only once, the day before yesterday. WBC has remained the same at 21.8 after switch to ceftriaxone. Still on hydrocortisone 100 BID. + dependant edema. No cyanosis. No calf tenderness. Pharynx is pink and moist w/o exudate. Neck is supple and trachea midline. No dullness on percussion of the anterior chest. Breath sounds are present bilaterally w/o wheeze. Scattered rhonchi are present in both lungs. Few medium rales are present in the lower lobes. Heart sounds are distant, irregular rhythm, tachycardic. Sepsis appears to be resolved. Decompensated CHF requiring milrinone. Ischemic cardiomyopathy plus chronic a fib. Acute exacerbation of chronic bronchitis. Maintain present medical regimen. Reduce dosage of hydrocortisone. Repeat CBC in AM tomorrow. Increase OOB activity as tolerated. Objective - Vital Signs/Intake and Output Vital Signs (last 24 hours): Temp Pulse Resp BP Pulse Ox 98.0 F 122 H 18 136/78 97 10/11/17 00:13 10/11/17 09:55 10/11/17 00:13 10/11/17 09:55 10/11/17 00:13 - Medications Medications: Current Medications Acetaminophen (Tylenol 325mg Tab) 650 mg PO Q6 PRN PRN Reason: Fever >100.4 F Last Admin: 10/03/17 00:07 Dose: 650 mg Acetaminophen (Tylenol 325mg Tab) 650 mg PO Q6 PRN PRN Reason: Pain, Mild (1-3) Last Admin: 10/04/17 19:54 Dose: 650 mg Albuterol Sulfate (Albuterol 0.083% Inhal Shu (2.5 Mg/3 Ml) Ud) 2.5 mg INH RQ4 PRN PRN Reason: Shortness of Breath Last Admin: 10/11/17 03:34 Dose: 2.5 mg Albuterol/Ipratropium (Duoneb 3 Mg/0.5 Mg (3 Ml) Ud) 3 ml INH RQID [facility] Last Admin: 10/11/17 07:30 Dose: 3 ml Amiodarone HCl (Cordarone) 100 mg PO DAILY [facility] Last Admin: 10/11/17 09:49 Dose: 100 mg Anastrozole (Arimidex 1 Mg Tab) 1 mg PO DAILY [facility] Last Admin: 10/11/17 09:46 Dose: 1 mg Ascorbic Acid (Vitamin C 500 Mg Tab) 500 mg PO DAILY [facility] Last Admin: 10/11/17 09:56 Dose: 500 mg Aspirin (Ecotrin) 81 mg PO DAILY [facility] Last Admin: 10/11/17 09:50 Dose: 81 mg Atorvastatin Calcium (Lipitor) 20 mg PO HS [facility] Last Admin: 10/10/17 22:33 Dose: 20 mg Bisacodyl (Dulcolax) 10 mg [place] DAILY PRN PRN Reason: Constipation Last Admin: 10/06/17 21:17 Dose: 10 mg Cholecalciferol (Vitamin D) 1,000 intlu PO DAILY [facility] Last Admin: 10/11/17 09:56 Dose: 1,000 intlu Docusate Sodium (Colace) 200 mg PO DAILY [facility] Last Admin: 10/11/17 09:47 Dose: 200 mg Enoxaparin Sodium (Lovenox) 30 mg SC DAILY [facility] PRN Reason: Protocol Last Admin: 10/11/17 09:52 Dose: 30 mg Furosemide (Lasix) 40 mg PO DAILY [facility] Last Admin: 10/11/17 09:51 Dose: 40 mg Guaifenesin (Robitussin) 100 mg PO Q6 PRN PRN Reason: Cough Last Admin: 10/08/17 17:10 Dose: 100 mg Hydrocortisone Sodium Succinate (Solu-Cortef) 100 mg IM DAILY [facility] Ceftriaxone Sodium 2 gm/ (Sodium Chloride) 100 mls @ 100 mls/hr IVPB DAILY [facility] PRN Reason: Protocol Last Admin: 10/11/17 09:53 Dose: 100 mls/hr Milrinone Lactate/Dextrose (Primacor 20mg/100ml D5w) 100 mls @ 3.231 mls/hr IV .Q24H [facility]; 0.15 MCG/KG/MIN PRN Reason: Protocol Last Admin: 10/10/17 14:15 Dose: Not Given Lactulose (Enulose) 20 gm PO DAILY PRN PRN Reason: Constipation Last Admin: 10/05/17 17:16 Dose: 20 gm Levothyroxine Sodium (Synthroid) 25 mcg PO DAILY@0630 [facility] Last Admin: 10/11/17 06:31 Dose: 25 mcg Losartan Potassium (Cozaar) 25 mg PO DAILY [facility] Last Admin: 10/11/17 09:50 Dose: 25 mg Memantine (Namenda) 10 mg PO DAILY [facility] Last Admin: 10/11/17 09:52 Dose: 10 mg Metoprolol Succinate (Toprol Xl) 50 mg PO DAILY [facility] Last Admin: 10/11/17 09:55 Dose: 50 mg Multivitamins/Minerals (Therapeutic-M Tab) 1 tab PO DAILY [facility] Last Admin: 10/11/17 09:54 Dose: 1 tab Ranolazine (Ranexa) 500 mg PO DAILY [facility] Last Admin: 10/11/17 09:52 Dose: 500 mg Saccharomyces Boulardii (Florastor) 250 mg PO BID [facility] Last Admin: 10/11/17 09:51 Dose: 250 mg Sildenafil Citrate (Revatio) 20 mg PO BID [facility] Last Admin: 10/11/17 09:52 Dose: 20 mg - Labs Labs: 10/11/17 04:20 10/11/17 04:20 Assessment and Plan (1) Abdominal pain Status: Acute (2) Sepsis Status: Acute (3) Pneumonia Status: Acute (4) Hydroureteronephrosis Status: Acute (5) Suspected urinary tract infection Status: Acute (6) Chronic constipation Status: Chronic
--- NOTE | 2017-10-11 11:13 | CP.PCM.PN ---
Subjective - Date & Time of Evaluation Date of Evaluation: 10/11/17 Time of Evaluation: 08:00 - Subjective Subjective: discussed on rounds no Levaquin on amiodorone cont IV Rocephin Objective - Vital Signs/Intake and Output Vital Signs (last 24 hours): Temp Pulse Resp BP Pulse Ox 98.0 F 122 H 18 136/78 97 10/11/17 00:13 10/11/17 09:55 10/11/17 00:13 10/11/17 09:55 10/11/17 00:13 - Medications Medications: Current Medications Acetaminophen (Tylenol 325mg Tab) 650 mg PO Q6 PRN PRN Reason: Fever >100.4 F Last Admin: 10/03/17 00:07 Dose: 650 mg Acetaminophen (Tylenol 325mg Tab) 650 mg PO Q6 PRN PRN Reason: Pain, Mild (1-3) Last Admin: 10/04/17 19:54 Dose: 650 mg Albuterol Sulfate (Albuterol 0.083% Inhal Shu (2.5 Mg/3 Ml) Ud) 2.5 mg INH RQ4 PRN PRN Reason: Shortness of Breath Last Admin: 10/11/17 03:34 Dose: 2.5 mg Albuterol/Ipratropium (Duoneb 3 Mg/0.5 Mg (3 Ml) Ud) 3 ml INH RQID [facility] Last Admin: 10/11/17 11:05 Dose: 3 ml Amiodarone HCl (Cordarone) 100 mg PO DAILY [facility] Last Admin: 10/11/17 09:49 Dose: 100 mg Anastrozole (Arimidex 1 Mg Tab) 1 mg PO DAILY [facility] Last Admin: 10/11/17 09:46 Dose: 1 mg Ascorbic Acid (Vitamin C 500 Mg Tab) 500 mg PO DAILY [facility] Last Admin: 10/11/17 09:56 Dose: 500 mg Aspirin (Ecotrin) 81 mg PO DAILY [facility] Last Admin: 10/11/17 09:50 Dose: 81 mg Atorvastatin Calcium (Lipitor) 20 mg PO HS [facility] Last Admin: 10/10/17 22:33 Dose: 20 mg Bisacodyl (Dulcolax) 10 mg [place] DAILY PRN PRN Reason: Constipation Last Admin: 10/06/17 21:17 Dose: 10 mg Cholecalciferol (Vitamin D) 1,000 intlu PO DAILY [facility] Last Admin: 10/11/17 09:56 Dose: 1,000 intlu Docusate Sodium (Colace) 200 mg PO DAILY [facility] Last Admin: 10/11/17 09:47 Dose: 200 mg Enoxaparin Sodium (Lovenox) 30 mg SC DAILY [facility] PRN Reason: Protocol Last Admin: 10/11/17 09:52 Dose: 30 mg Furosemide (Lasix) 40 mg PO DAILY [facility] Last Admin: 10/11/17 09:51 Dose: 40 mg Guaifenesin (Robitussin) 100 mg PO Q6 PRN PRN Reason: Cough Last Admin: 10/08/17 17:10 Dose: 100 mg Hydrocortisone Sodium Succinate (Solu-Cortef) 100 mg IM DAILY [facility] Ceftriaxone Sodium 2 gm/ (Sodium Chloride) 100 mls @ 100 mls/hr IVPB DAILY [facility] PRN Reason: Protocol Last Admin: 10/11/17 09:53 Dose: 100 mls/hr Milrinone Lactate/Dextrose (Primacor 20mg/100ml D5w) 100 mls @ 3.231 mls/hr IV .Q24H [facility]; 0.15 MCG/KG/MIN PRN Reason: Protocol Last Admin: 10/10/17 14:15 Dose: Not Given Lactulose (Enulose) 20 gm PO DAILY PRN PRN Reason: Constipation Last Admin: 10/05/17 17:16 Dose: 20 gm Levothyroxine Sodium (Synthroid) 25 mcg PO DAILY@0630 [facility] Last Admin: 10/11/17 06:31 Dose: 25 mcg Losartan Potassium (Cozaar) 25 mg PO DAILY [facility] Last Admin: 10/11/17 09:50 Dose: 25 mg Memantine (Namenda) 10 mg PO DAILY [facility] Last Admin: 10/11/17 09:52 Dose: 10 mg Metoprolol Succinate (Toprol Xl) 50 mg PO DAILY [facility] Last Admin: 10/11/17 09:55 Dose: 50 mg Multivitamins/Minerals (Therapeutic-M Tab) 1 tab PO DAILY [facility] Last Admin: 10/11/17 09:54 Dose: 1 tab Ranolazine (Ranexa) 500 mg PO DAILY [facility] Last Admin: 10/11/17 09:52 Dose: 500 mg Saccharomyces Boulardii (Florastor) 250 mg PO BID [facility] Last Admin: 10/11/17 09:51 Dose: 250 mg Sildenafil Citrate (Revatio) 20 mg PO BID [facility] Last Admin: 10/11/17 09:52 Dose: 20 mg - Labs Labs: 10/11/17 04:20 10/11/17 04:20 - Constitutional Appears: Non-toxic, Chronically Ill - Head Exam Head Exam: NORMOCEPHALIC - Eye Exam Eye Exam: PERRL - ENT Exam ENT Exam: Mucous Membranes Dry - Neck Exam Neck Exam: absent: Lymphadenopathy - Respiratory Exam Respiratory Exam: Decreased Breath Sounds - Cardiovascular Exam Cardiovascular Exam: REGULAR RHYTHM - GI/Abdominal Exam GI & Abdominal Exam: Distended, Soft - Rectal Exam Rectal Exam: Deferred - Exam Exam: NORMAL INSPECTION Assessment and Plan (1) Abdominal pain Status: Acute (2) Sepsis Status: Acute (3) GINNY (acute kidney injury) Status: Acute (4) Acute exacerbation of congestive heart failure Status: Acute (5) Bronchospasm with bronchitis, acute Status: Acute (6) Chest pain Status: Acute
[2017-10-11 11:19] LABS: BANDS 1 % (0-2); LYMPHOCYTE 5 % (20-50); METAMYELOCYTE 1 % (0-0); MONOCYTE 4 % (0-10); MYELOCYTE 1 % (0-0); NEUTROPHIL 88 % (42-75); OVALOCYTES SLIGHT; PLATELET ESTIMATE NORMAL (NORMAL); TOTAL CELLS COUNTED 100
[2017-10-11 11:20] LABS: TOXIC GRANULATION PRESENT
--- NOTE | 2017-10-11 12:10 | CP.PCM.PN ---
Subjective - Date & Time of Evaluation Date of Evaluation: 10/11/17 Time of Evaluation: 12:07 - Subjective Subjective: feels better today sitting in chair less sob did not get up to walk around yet Objective - Vital Signs/Intake and Output Vital Signs (last 24 hours): Temp Pulse Resp BP Pulse Ox 98.0 F 122 H 18 136/78 97 10/11/17 00:13 10/11/17 09:55 10/11/17 00:13 10/11/17 09:55 10/11/17 00:13 - Medications Medications: Current Medications Acetaminophen (Tylenol 325mg Tab) 650 mg PO Q6 PRN PRN Reason: Fever >100.4 F Last Admin: 10/03/17 00:07 Dose: 650 mg Acetaminophen (Tylenol 325mg Tab) 650 mg PO Q6 PRN PRN Reason: Pain, Mild (1-3) Last Admin: 10/04/17 19:54 Dose: 650 mg Albuterol Sulfate (Albuterol 0.083% Inhal Shu (2.5 Mg/3 Ml) Ud) 2.5 mg INH RQ4 PRN PRN Reason: Shortness of Breath Last Admin: 10/11/17 03:34 Dose: 2.5 mg Albuterol/Ipratropium (Duoneb 3 Mg/0.5 Mg (3 Ml) Ud) 3 ml INH RQID [facility] Last Admin: 10/11/17 11:05 Dose: 3 ml Amiodarone HCl (Cordarone) 100 mg PO DAILY [facility] Last Admin: 10/11/17 09:49 Dose: 100 mg Anastrozole (Arimidex 1 Mg Tab) 1 mg PO DAILY [facility] Last Admin: 10/11/17 09:46 Dose: 1 mg Ascorbic Acid (Vitamin C 500 Mg Tab) 500 mg PO DAILY [facility] Last Admin: 10/11/17 09:56 Dose: 500 mg Aspirin (Ecotrin) 81 mg PO DAILY [facility] Last Admin: 10/11/17 09:50 Dose: 81 mg Atorvastatin Calcium (Lipitor) 20 mg PO HS [facility] Last Admin: 10/10/17 22:33 Dose: 20 mg Bisacodyl (Dulcolax) 10 mg [place] DAILY PRN PRN Reason: Constipation Last Admin: 10/06/17 21:17 Dose: 10 mg Cholecalciferol (Vitamin D) 1,000 intlu PO DAILY [facility] Last Admin: 10/11/17 09:56 Dose: 1,000 intlu Docusate Sodium (Colace) 200 mg PO DAILY [facility] Last Admin: 10/11/17 09:47 Dose: 200 mg Enoxaparin Sodium (Lovenox) 30 mg SC DAILY [facility] PRN Reason: Protocol Last Admin: 10/11/17 09:52 Dose: 30 mg Furosemide (Lasix) 40 mg PO DAILY [facility] Last Admin: 10/11/17 09:51 Dose: 40 mg Guaifenesin (Robitussin) 100 mg PO Q6 PRN PRN Reason: Cough Last Admin: 10/08/17 17:10 Dose: 100 mg Hydrocortisone Sodium Succinate (Solu-Cortef) 100 mg IM DAILY [facility] Ceftriaxone Sodium 2 gm/ (Sodium Chloride) 100 mls @ 100 mls/hr IVPB DAILY [facility] PRN Reason: Protocol Last Admin: 10/11/17 09:53 Dose: 100 mls/hr Milrinone Lactate/Dextrose (Primacor 20mg/100ml D5w) 100 mls @ 3.231 mls/hr IV .Q24H [facility]; 0.15 MCG/KG/MIN PRN Reason: Protocol Last Admin: 10/10/17 14:15 Dose: Not Given Lactulose (Enulose) 20 gm PO DAILY PRN PRN Reason: Constipation Last Admin: 10/05/17 17:16 Dose: 20 gm Levothyroxine Sodium (Synthroid) 25 mcg PO DAILY@0630 [facility] Last Admin: 10/11/17 06:31 Dose: 25 mcg Losartan Potassium (Cozaar) 25 mg PO DAILY [facility] Last Admin: 10/11/17 09:50 Dose: 25 mg Memantine (Namenda) 10 mg PO DAILY [facility] Last Admin: 10/11/17 09:52 Dose: 10 mg Metoprolol Succinate (Toprol Xl) 50 mg PO DAILY [facility] Last Admin: 10/11/17 09:55 Dose: 50 mg Multivitamins/Minerals (Therapeutic-M Tab) 1 tab PO DAILY [facility] Last Admin: 10/11/17 09:54 Dose: 1 tab Ranolazine (Ranexa) 500 mg PO DAILY [facility] Last Admin: 10/11/17 09:52 Dose: 500 mg Saccharomyces Boulardii (Florastor) 250 mg PO BID [facility] Last Admin: 10/11/17 09:51 Dose: 250 mg Sildenafil Citrate (Revatio) 20 mg PO BID [facility] Last Admin: 10/11/17 09:52 Dose: 20 mg - Labs Labs: 10/11/17 04:20 10/11/17 04:20 - Constitutional Appears: Well, Non-toxic, No Acute Distress - Respiratory Exam Respiratory Exam: Decreased Breath Sounds, Rales, NORMAL BREATHING PATTERN. absent: Accessory Muscle Use, Clear to Ausculation Bilateral, Rhonchi, Wheezes Additional comments: scattered bases - Cardiovascular Exam Cardiovascular Exam: Irregular Rhythm, +S1, +S2. absent: Murmur - GI/Abdominal Exam GI & Abdominal Exam: Soft, Normal Bowel Sounds. absent: Tenderness, Organomegaly - Neurological Exam Neurological Exam: Alert, Awake, Oriented x3 Assessment and Plan - Assessment and Plan (Free Text) Assessment: This is a 81 female with a history of cardiomyopathy EF 25-30% , s/p AICD, anxiety, pulmonary hypertension, COPD (ex smoker), HTN, Dyslipidemia, Hypothyroidism, lower back pain, sciatica, osteoporosis, RA, CKD stage III, presenting to the ED with the complaint of abdominal pain, subsequently admitted for sepsis secondary to UTI as well as left lower lobe pneumonia, now hemodynamically stable on telemetry. very slow improvement, feels improved however fatiguing with conversation unable to ambulate without severe dyspnea and has not done so yet PT will assist today 1) Sepsis secondary to UTI and left lower lobe pneumonia, slowly resolving WBC trending down, rpt CXR yesterday, no focal consolidations, chronic interstitial changes. ID Consultation with Dr. West appreciated, Merrem was stopped, pt now on Ceftriaxone per sensitivities No quinolones 2/2 Amio use and prolonged QTc Cultures- +Klebsiella pneumoniae - Sputum CX - Procalcitonin 58.23 - CT abd/pelvis- mild left hydroureteronephrosis without evidence of obstructing calculus. Left lower lobe infiltrate, r/o pneumonia - F/u renal ultrasound as ordered by Dr. Gomez to ensure no stone seen (patient unable to tolerate today due to shortness of breath) 2) Left lower lobe pneumonia - f/u sputum cx, so far no organisms seen - kristi - Montior respiratory status - abx bronchodilators as above 3) Systolic and diastolic CHF,chronic , more hypervolemic. Pulmonary HTN, severe - EF 25% - Consultation with Dr. Da Silva appreciated on Milrinone- Dr. Da Silva recommends short term Milrinone - Caution with hydration - Restart Lasix 20 mg po daily, with 40 mg IVP given today due to hypervolemia - ASA - Restart Sildenafil - Amiodarone 4) Acute on chronic kidney disease stage III - Caution with antibiotics causing nephrotoxicity - Stabilized 5) COPD - Chronic, at baseline - Duoneb changed to scheduled q4 hours and PRN - Dr. Gomez consult 6) Hypothyroidism Chronic Continue Levothyroxine 7) DVT prophylaxis - Heparin
[2017-10-11] MEDS ORDERED: Milrinone 20mg/100ml D5W 100 ML IV SCH ×2 (12:45→19:00)
--- NOTE | 2017-10-11 18:10 | CP.PCM.PN ---
Subjective - Date & Time of Evaluation Date of Evaluation: 10/11/17 Time of Evaluation: 18:07 - Subjective Subjective: Ashanti initially admitted for acute sepsis secondary to UTI and subsequently developed acute heart failure exacerbation decompensated requiring IV milrinone infusion therapy which she has responded to adequately in the past over the course of the weekend she was continuing to cough productive of whitish sputum which is slightly improving last BNP obtained was in October 08. Objective - Vital Signs/Intake and Output Vital Signs (last 24 hours): Temp Pulse Resp BP Pulse Ox 98.2 F 100 H 20 134/79 95 10/11/17 15:38 10/11/17 15:38 10/11/17 15:38 10/11/17 15:38 10/11/17 15:38 - Medications Medications: Current Medications Acetaminophen (Tylenol 325mg Tab) 650 mg PO Q6 PRN PRN Reason: Fever >100.4 F Last Admin: 10/03/17 00:07 Dose: 650 mg Acetaminophen (Tylenol 325mg Tab) 650 mg PO Q6 PRN PRN Reason: Pain, Mild (1-3) Last Admin: 10/04/17 19:54 Dose: 650 mg Albuterol Sulfate (Albuterol 0.083% Inhal Shu (2.5 Mg/3 Ml) Ud) 2.5 mg INH RQ4 PRN PRN Reason: Shortness of Breath Last Admin: 10/11/17 03:34 Dose: 2.5 mg Albuterol/Ipratropium (Duoneb 3 Mg/0.5 Mg (3 Ml) Ud) 3 ml INH RQID [facility] Last Admin: 10/11/17 15:52 Dose: 3 ml Amiodarone HCl (Cordarone) 100 mg PO DAILY [facility] Last Admin: 10/11/17 09:49 Dose: 100 mg Anastrozole (Arimidex 1 Mg Tab) 1 mg PO DAILY [facility] Last Admin: 10/11/17 09:46 Dose: 1 mg Ascorbic Acid (Vitamin C 500 Mg Tab) 500 mg PO DAILY [facility] Last Admin: 10/11/17 09:56 Dose: 500 mg Aspirin (Ecotrin) 81 mg PO DAILY [facility] Last Admin: 10/11/17 09:50 Dose: 81 mg Atorvastatin Calcium (Lipitor) 20 mg PO HS [facility] Last Admin: 10/10/17 22:33 Dose: 20 mg Bisacodyl (Dulcolax) 10 mg [place] DAILY PRN PRN Reason: Constipation Last Admin: 10/06/17 21:17 Dose: 10 mg Cholecalciferol (Vitamin D) 1,000 intlu PO DAILY [facility] Last Admin: 10/11/17 09:56 Dose: 1,000 intlu Docusate Sodium (Colace) 200 mg PO DAILY [facility] Last Admin: 10/11/17 09:47 Dose: 200 mg Enoxaparin Sodium (Lovenox) 30 mg SC DAILY [facility] PRN Reason: Protocol Last Admin: 10/11/17 09:52 Dose: 30 mg Furosemide (Lasix) 40 mg PO DAILY [facility] Last Admin: 10/11/17 09:51 Dose: 40 mg Guaifenesin (Robitussin) 100 mg PO Q6 PRN PRN Reason: Cough Last Admin: 10/08/17 17:10 Dose: 100 mg Hydrocortisone Sodium Succinate (Solu-Cortef) 100 mg IM DAILY [facility] Ceftriaxone Sodium 2 gm/ (Sodium Chloride) 100 mls @ 100 mls/hr IVPB DAILY [facility] PRN Reason: Protocol Last Admin: 10/11/17 09:53 Dose: 100 mls/hr Milrinone Lactate/Dextrose (Primacor 20mg/100ml D5w) 100 mls @ 3.223 mls/hr IV .Q24H [facility]; 0.15 MCG/KG/MIN PRN Reason: Protocol Last Admin: 10/11/17 12:44 Dose: 0.15 mcg/kg/min, 3.223 mls/hr Lactulose (Enulose) 20 gm PO DAILY PRN PRN Reason: Constipation Last Admin: 10/05/17 17:16 Dose: 20 gm Levothyroxine Sodium (Synthroid) 25 mcg PO DAILY@0630 [facility] Last Admin: 10/11/17 06:31 Dose: 25 mcg Losartan Potassium (Cozaar) 25 mg PO DAILY [facility] Last Admin: 10/11/17 09:50 Dose: 25 mg Memantine (Namenda) 10 mg PO DAILY [facility] Last Admin: 10/11/17 09:52 Dose: 10 mg Metoprolol Succinate (Toprol Xl) 50 mg PO DAILY [facility] Last Admin: 10/11/17 09:55 Dose: 50 mg Multivitamins/Minerals (Therapeutic-M Tab) 1 tab PO DAILY [facility] Last Admin: 10/11/17 09:54 Dose: 1 tab Ranolazine (Ranexa) 500 mg PO DAILY [facility] Last Admin: 10/11/17 09:52 Dose: 500 mg Saccharomyces Boulardii (Florastor) 250 mg PO BID [facility] Last Admin: 10/11/17 16:53 Dose: 250 mg Sildenafil Citrate (Revatio) 20 mg PO BID [facility] Last Admin: 10/11/17 16:53 Dose: 20 mg - Labs Labs: 10/11/17 04:20 10/11/17 04:20 - Constitutional Appears: Well - Head Exam Head Exam: ATRAUMATIC, NORMAL INSPECTION, NORMOCEPHALIC - Eye Exam Eye Exam: EOMI, Normal appearance, PERRL Pupil Exam: NORMAL ACCOMODATION, PERRL - ENT Exam ENT Exam: Mucous Membranes Moist, Normal Exam - Neck Exam Neck Exam: Full ROM, Normal Inspection. absent: Lymphadenopathy - Respiratory Exam Respiratory Exam: Clear to Ausculation Bilateral, Rales, NORMAL BREATHING PATTERN - Cardiovascular Exam Cardiovascular Exam: REGULAR RHYTHM, +S1, +S2, Murmur - GI/Abdominal Exam GI & Abdominal Exam: Soft, Normal Bowel Sounds. absent: Tenderness - Extremities Exam Extremities Exam: Full ROM, Normal Capillary Refill, Normal Inspection. absent : Joint Swelling, Pedal Edema - Back Exam Back Exam: NORMAL INSPECTION - Neurological Exam Neurological Exam: Alert, Awake, CN II-XII Intact, Normal Gait, Oriented x3 - Psychiatric Exam Psychiatric exam: Normal Affect, Normal Mood - Skin Skin Exam: Dry, Intact, Normal Color, Warm Assessment and Plan (1) Sepsis Status: Acute (2) Suspected urinary tract infection Status: Acute (3) Acute exacerbation of congestive heart failure Status: Acute (4) Leukocytosis Status: Acute (5) V-tach Status: Acute (6) CAD (coronary artery disease) Status: Chronic (7) CHF (congestive heart failure) Status: Chronic (8) Pulmonary arterial hypertension Status: Chronic
[2017-10-12 06:05] LABS: BASO % 0.2 % (0.0-2.0); EOS # 0.1 K/uL (0.0-0.7); EOS % 0.3 % (0.0-4.0); HEMOGLOBIN 10.1 g/dL (12.0-16.0); LYMPH # 1.1 K/uL (1.0-4.3); LYMPH % 4.9 % (20.0-40.0); MEAN CELL VOLUME 96.7 fl (81.0-99.0); MEAN CORPUSCULAR HEMOGLOBIN 31.9 pg (27.0-31.0); MEAN PLATELET VOLUME 9.1 fl (7.2-11.7); MONO # 1.6 K/uL (0.0-0.8); MONO % 7.3 % (0.0-10.0); NEUT # 19.2 K/uL (1.8-7.0); NEUT % 87.3 % (50.0-75.0); RBC 3.17 Mil/uL (3.80-5.20); RED CELL DISTRIBUTION WIDTH 14.6 % (11.5-14.5); WHITE BLOOD COUNT 22.1 K/uL (4.8-10.8)
[2017-10-12] MEDS: Albuterol-Ipratrop 3 mg / 0.5 (3 ml) UD INH SCH ×4 (07:18→19:24)
--- NOTE | 2017-10-12 08:05 | CP.PCM.PN ---
Subjective - Date & Time of Evaluation Date of Evaluation: 10/12/17 Time of Evaluation: 16:03 - Subjective Subjective: complains of headache new did not sleep last night says headache without any weakenss, visual disturbance, numbness, nausea or vomiting 12/22 Objective - Vital Signs/Intake and Output Vital Signs (last 24 hours): Temp Pulse Resp BP Pulse Ox 98.5 F 117 H 18 148/79 95 10/12/17 05:00 10/12/17 05:00 10/12/17 05:00 10/12/17 05:00 10/12/17 05:00 - Medications Medications: Current Medications Acetaminophen (Tylenol 325mg Tab) 650 mg PO Q6 PRN PRN Reason: Fever >100.4 F Last Admin: 10/03/17 00:07 Dose: 650 mg Acetaminophen (Tylenol 325mg Tab) 650 mg PO Q6 PRN PRN Reason: Pain, Mild (1-3) Last Admin: 10/12/17 02:51 Dose: 650 mg Albuterol Sulfate (Albuterol 0.083% Inhal Shu (2.5 Mg/3 Ml) Ud) 2.5 mg INH RQ4 PRN PRN Reason: Shortness of Breath Last Admin: 10/11/17 03:34 Dose: 2.5 mg Albuterol/Ipratropium (Duoneb 3 Mg/0.5 Mg (3 Ml) Ud) 3 ml INH RQID [facility] Last Admin: 10/12/17 07:18 Dose: 3 ml Amiodarone HCl (Cordarone) 100 mg PO DAILY [facility] Last Admin: 10/11/17 09:49 Dose: 100 mg Anastrozole (Arimidex 1 Mg Tab) 1 mg PO DAILY [facility] Last Admin: 10/11/17 09:46 Dose: 1 mg Ascorbic Acid (Vitamin C 500 Mg Tab) 500 mg PO DAILY [facility] Last Admin: 10/11/17 09:56 Dose: 500 mg Aspirin (Ecotrin) 81 mg PO DAILY [facility] Last Admin: 10/11/17 09:50 Dose: 81 mg Atorvastatin Calcium (Lipitor) 20 mg PO HS [facility] Last Admin: 10/11/17 21:18 Dose: 20 mg Bisacodyl (Dulcolax) 10 mg [place] DAILY PRN PRN Reason: Constipation Last Admin: 10/06/17 21:17 Dose: 10 mg Cholecalciferol (Vitamin D) 1,000 intlu PO DAILY [facility] Last Admin: 10/11/17 09:56 Dose: 1,000 intlu Docusate Sodium (Colace) 200 mg PO DAILY [facility] Last Admin: 10/11/17 09:47 Dose: 200 mg Enoxaparin Sodium (Lovenox) 30 mg SC DAILY [facility] PRN Reason: Protocol Last Admin: 10/11/17 09:52 Dose: 30 mg Furosemide (Lasix) 40 mg PO DAILY [facility] Last Admin: 10/11/17 09:51 Dose: 40 mg Guaifenesin (Robitussin) 100 mg PO Q6 PRN PRN Reason: Cough Last Admin: 10/08/17 17:10 Dose: 100 mg Hydrocortisone Sodium Succinate (Solu-Cortef) 100 mg IM DAILY [facility] Ceftriaxone Sodium 2 gm/ (Sodium Chloride) 100 mls @ 100 mls/hr IVPB DAILY [facility] PRN Reason: Protocol Last Admin: 10/11/17 09:53 Dose: 100 mls/hr Milrinone Lactate/Dextrose (Primacor 20mg/100ml D5w) 100 mls @ 5.372 mls/hr IV .[id number] [facility]; 0.25 MCG/KG/MIN PRN Reason: Protocol Lactulose (Enulose) 20 gm PO DAILY PRN PRN Reason: Constipation Last Admin: 10/05/17 17:16 Dose: 20 gm Levothyroxine Sodium (Synthroid) 25 mcg PO DAILY@0630 [facility] Last Admin: 10/11/17 06:31 Dose: 25 mcg Losartan Potassium (Cozaar) 25 mg PO DAILY [facility] Last Admin: 10/11/17 09:50 Dose: 25 mg Memantine (Namenda) 10 mg PO DAILY [facility] Last Admin: 10/11/17 09:52 Dose: 10 mg Metoprolol Succinate (Toprol Xl) 50 mg PO DAILY [facility] Last Admin: 10/11/17 09:55 Dose: 50 mg Multivitamins/Minerals (Therapeutic-M Tab) 1 tab PO DAILY [facility] Last Admin: 10/11/17 09:54 Dose: 1 tab Ranolazine (Ranexa) 500 mg PO DAILY [facility] Last Admin: 10/11/17 09:52 Dose: 500 mg Saccharomyces Boulardii (Florastor) 250 mg PO BID [facility] Last Admin: 10/11/17 16:53 Dose: 250 mg Sildenafil Citrate (Revatio) 20 mg PO BID [facility] Last Admin: 10/11/17 16:53 Dose: 20 mg - Labs Labs: 10/12/17 04:20 10/11/17 04:20 - Constitutional Appears: Well, Non-toxic, No Acute Distress - Head Exam Head Exam: NORMAL INSPECTION - Eye Exam Eye Exam: Normal appearance Pupil Exam: NORMAL ACCOMODATION - ENT Exam ENT Exam: Mucous Membranes Moist - Respiratory Exam Respiratory Exam: Rales, NORMAL BREATHING PATTERN. absent: Accessory Muscle Use , Rhonchi, Wheezes Additional comments: scattered bases - Cardiovascular Exam Cardiovascular Exam: REGULAR RHYTHM, +S1, +S2. absent: Murmur Additional comments: no s3 - GI/Abdominal Exam GI & Abdominal Exam: Soft, Normal Bowel Sounds. absent: Tenderness, Organomegaly - Neurological Exam Neurological Exam: Alert, Awake, Oriented x3 Neuro motor strength exam: Left Upper Extremity: 5, Right Upper Extremity: 5, Left Lower Extremity: 5, Right Lower Extremity: 5 - Psychiatric Exam Psychiatric exam: Depressed Assessment and Plan - Assessment and Plan (Free Text) Assessment: This is a 81 female with a history of cardiomyopathy EF 25-30% , s/p AICD, anxiety, pulmonary hypertension, COPD (ex smoker), HTN, Dyslipidemia, Hypothyroidism, lower back pain, sciatica, osteoporosis, RA, CKD stage III, presenting to the ED with the complaint of abdominal pain, subsequently admitted for sepsis secondary to UTI as well as left lower lobe pneumonia, now hemodynamically stable on telemetry. very slow improvement, feels improved however fatiguing with conversation unable to ambulate without severe dyspnea and has not done so yet PT will assist today 1) Sepsis secondary to UTI and left lower lobe pneumonia, slowly resolving WBC trending down, rpt CXR yesterday, no focal consolidations, chronic interstitial changes. ID Consultation with Dr. West appreciated, Merrem was stopped, pt now on Ceftriaxone per sensitivities No quinolones 2/2 Amio use and prolonged QTc Cultures- +Klebsiella pneumoniae - Sputum CX - Procalcitonin 58.23 - CT abd/pelvis- mild left hydroureteronephrosis without evidence of obstructing calculus. Left lower lobe infiltrate, r/o pneumonia - F/u renal ultrasound as ordered by Dr. Gomez to ensure no stone seen (patient unable to tolerate today due to shortness of breath) 2) Left lower lobe pneumonia - f/u sputum cx, so far no organisms seen - duonebs - Montior respiratory status - abx bronchodilators as above 3) Systolic and diastolic CHF,chronic , more hypervolemic. Pulmonary HTN, severe - EF 25% - Consultation with Dr. Da Silva appreciated on Milrinone- Dr. Da Silva recommends short term Milrinone - Caution with hydration - Restart Lasix - ASA - Restart Sildenafil - Amiodarone 4) Acute on chronic kidney disease stage III - Caution with antibiotics causing nephrotoxicity - Stabilized 5) COPD - Chronic, at baseline - Duoneb changed to scheduled q4 hours and PRN - Dr. Gomez consult 6) Hypothyroidism Chronic Continue Levothyroxine 7) DVT prophylaxis - Heparin 8)New Issue: Headache- most likely sleep headache had discussion with Dr. Gomez who knows patient well and will decide re need for cat scan discussion with Dr. Da Silva who does not think the headache has any relation to timing of increasing the milrinone yesterday if continues reasssess need for Head CT.
[2017-10-12] MEDS ORDERED: Milrinone 20mg/100ml D5W 100 ML IV SCH (08:45)
--- NOTE | 2017-10-12 10:07 | CP.PCM.PN ---
Subjective - Date & Time of Evaluation Date of Evaluation: 10/12/17 Time of Evaluation: 10:07 - Subjective Subjective: Seen on rounds in telemetry. Complains of headache and low back pain today. Had dosage of milrinone increased yesterday. Claims her breathing is somewhat improved today. Remains well oxygenated using nasal canula. Dependant edema still present w/o cyanosis. Pharynx is pink and moist w/o exudate. Voice is slightly hoarse. Neck is supple and trachea midline. Breath sounds are present bilaterally w/o wheeze. Scattered rhonchi are present in L's bilaterally. Medium rales present in lower lobes posteriorly. Leukocytosis still noted w/o decrease from the day prior. Discuss with hospitalist regarding current drug regimen. Discuss with cardio regarding new complaints after increased dose if milrinone. Monitor leukocytosis. Hydrocortisone reduced yesterday to 100MG OD. Continue ceftriaxone 2GM OD presently. Objective - Vital Signs/Intake and Output Vital Signs (last 24 hours): Temp Pulse Resp BP Pulse Ox 97.9 F 117 H 18 152/76 H 96 10/12/17 08:32 10/12/17 08:32 10/12/17 08:32 10/12/17 08:32 10/12/17 08:32 Intake and Output: 10/11/17 10/12/17 23:59 11:59 Intake Total 858 Balance 858 - Medications Medications: Current Medications Acetaminophen (Tylenol 325mg Tab) 650 mg PO Q6 PRN PRN Reason: Fever >100.4 F Last Admin: 10/03/17 00:07 Dose: 650 mg Acetaminophen (Tylenol 325mg Tab) 650 mg PO Q6 PRN PRN Reason: Pain, Mild (1-3) Last Admin: 10/12/17 02:51 Dose: 650 mg Albuterol Sulfate (Albuterol 0.083% Inhal Shu (2.5 Mg/3 Ml) Ud) 2.5 mg INH RQ4 PRN PRN Reason: Shortness of Breath Last Admin: 10/11/17 03:34 Dose: 2.5 mg Albuterol/Ipratropium (Duoneb 3 Mg/0.5 Mg (3 Ml) Ud) 3 ml INH RQID [facility] Last Admin: 10/12/17 07:18 Dose: 3 ml Amiodarone HCl (Cordarone) 100 mg PO DAILY [facility] Last Admin: 10/11/17 09:49 Dose: 100 mg Anastrozole (Arimidex 1 Mg Tab) 1 mg PO DAILY [facility] Last Admin: 10/11/17 09:46 Dose: 1 mg Ascorbic Acid (Vitamin C 500 Mg Tab) 500 mg PO DAILY [facility] Last Admin: 10/11/17 09:56 Dose: 500 mg Aspirin (Ecotrin) 81 mg PO DAILY [facility] Last Admin: 10/11/17 09:50 Dose: 81 mg Atorvastatin Calcium (Lipitor) 20 mg PO HS [facility] Last Admin: 10/11/17 21:18 Dose: 20 mg Bisacodyl (Dulcolax) 10 mg [place] DAILY PRN PRN Reason: Constipation Last Admin: 10/06/17 21:17 Dose: 10 mg Cholecalciferol (Vitamin D) 1,000 intlu PO DAILY [facility] Last Admin: 10/11/17 09:56 Dose: 1,000 intlu Docusate Sodium (Colace) 200 mg PO DAILY [facility] Last Admin: 10/11/17 09:47 Dose: 200 mg Enoxaparin Sodium (Lovenox) 30 mg SC DAILY [facility] PRN Reason: Protocol Last Admin: 10/11/17 09:52 Dose: 30 mg Furosemide (Lasix) 40 mg PO DAILY [facility] Last Admin: 10/11/17 09:51 Dose: 40 mg Guaifenesin (Robitussin) 100 mg PO Q6 PRN PRN Reason: Cough Last Admin: 10/08/17 17:10 Dose: 100 mg Hydrocortisone Sodium Succinate (Solu-Cortef) 100 mg IM DAILY [facility] Ceftriaxone Sodium 2 gm/ (Sodium Chloride) 100 mls @ 100 mls/hr IVPB DAILY [facility] PRN Reason: Protocol Last Admin: 10/11/17 09:53 Dose: 100 mls/hr Milrinone Lactate/Dextrose (Primacor 20mg/100ml D5w) 100 mls @ 3.223 mls/hr IV .Q24H [facility]; 0.15 MCG/KG/MIN PRN Reason: Protocol Lactulose (Enulose) 20 gm PO DAILY PRN PRN Reason: Constipation Last Admin: 10/05/17 17:16 Dose: 20 gm Levothyroxine Sodium (Synthroid) 25 mcg PO DAILY@0630 [facility] Last Admin: 10/11/17 06:31 Dose: 25 mcg Losartan Potassium (Cozaar) 25 mg PO DAILY [facility] Last Admin: 10/11/17 09:50 Dose: 25 mg Memantine (Namenda) 10 mg PO DAILY [facility] Last Admin: 10/11/17 09:52 Dose: 10 mg Metoprolol Succinate (Toprol Xl) 50 mg PO DAILY [facility] Last Admin: 10/11/17 09:55 Dose: 50 mg Multivitamins/Minerals (Therapeutic-M Tab) 1 tab PO DAILY [facility] Last Admin: 10/11/17 09:54 Dose: 1 tab Ranolazine (Ranexa) 500 mg PO DAILY [facility] Last Admin: 10/11/17 09:52 Dose: 500 mg Saccharomyces Boulardii (Florastor) 250 mg PO BID [facility] Last Admin: 10/11/17 16:53 Dose: 250 mg Sildenafil Citrate (Revatio) 20 mg PO BID [facility] Last Admin: 10/11/17 16:53 Dose: 20 mg - Labs Labs: 10/12/17 04:20 10/11/17 04:20 Assessment and Plan (1) Abdominal pain Status: Acute (2) Sepsis Status: Acute (3) Pneumonia Status: Acute (4) Hydroureteronephrosis Status: Acute (5) Suspected urinary tract infection Status: Acute (6) Chronic constipation Status: Chronic
[2017-10-12] MEDS: Levothyroxine 25 MCG TAB PO SCH (10:12)
[2017-10-12] MEDS: cefTRIAXone 2 GM in Sodium Chloride 0.9% 100 ML IVPB SCH (10:21)
[2017-10-12] MEDS: Enoxaparin 30 mg Syringe SC SCH (10:22)
[2017-10-12] MEDS: Saccharomyces Boulardi 250 mg Cap PO SCH ×2 (10:22→16:15)
[2017-10-12] MEDS: Ranolazine 500 mg Extended Release Tablets PO SCH (10:24)
[2017-10-12] MEDS: Cholecalciferol 1,000 INTLU TAB PO SCH (10:25)
[2017-10-12] MEDS: Sildenafil 20 MG TAB PO SCH ×2 (10:25→16:15)
[2017-10-12] MEDS: Multivitamin With Minerals Tab PO SCH (10:26)
[2017-10-12] MEDS: Metoprolol Succinate 50 mg XL Tab PO SCH (12:06)
[2017-10-12] MEDS: Milrinone 20mg/100ml D5W 100 ML IV SCH (12:11)
[2017-10-12] MEDS: guaiFENesin 100 mg/5 ml Syrup UD PO PRN (12:13)
--- NOTE | 2017-10-12 12:41 | CP.PCM.PN ---
Subjective - Date & Time of Evaluation Date of Evaluation: 10/12/17 Time of Evaluation: 08:00 - Subjective Subjective: events noted c/o cough nad afeb Objective - Vital Signs/Intake and Output Vital Signs (last 24 hours): Temp Pulse Resp BP Pulse Ox 97.9 F 65 18 152/76 H 96 10/12/17 08:32 10/12/17 12:06 10/12/17 08:32 10/12/17 12:06 10/12/17 08:32 - Medications Medications: Current Medications Acetaminophen (Tylenol 325mg Tab) 650 mg PO Q6 PRN PRN Reason: Fever >100.4 F Last Admin: 10/03/17 00:07 Dose: 650 mg Acetaminophen (Tylenol 325mg Tab) 650 mg PO Q6 PRN PRN Reason: Pain, Mild (1-3) Last Admin: 10/12/17 02:51 Dose: 650 mg Albuterol Sulfate (Albuterol 0.083% Inhal Shu (2.5 Mg/3 Ml) Ud) 2.5 mg INH RQ4 PRN PRN Reason: Shortness of Breath Last Admin: 10/11/17 03:34 Dose: 2.5 mg Albuterol/Ipratropium (Duoneb 3 Mg/0.5 Mg (3 Ml) Ud) 3 ml INH RQID [facility] Last Admin: 10/12/17 12:02 Dose: 3 ml Amiodarone HCl (Cordarone) 100 mg PO DAILY [facility] Last Admin: 10/12/17 10:24 Dose: 100 mg Anastrozole (Arimidex 1 Mg Tab) 1 mg PO DAILY [facility] Last Admin: 10/12/17 10:28 Dose: 1 mg Ascorbic Acid (Vitamin C 500 Mg Tab) 500 mg PO DAILY [facility] Last Admin: 10/12/17 10:25 Dose: 500 mg Aspirin (Ecotrin) 81 mg PO DAILY [facility] Last Admin: 10/12/17 10:25 Dose: 81 mg Atorvastatin Calcium (Lipitor) 20 mg PO HS [facility] Last Admin: 10/11/17 21:18 Dose: 20 mg Bisacodyl (Dulcolax) 10 mg [place] DAILY PRN PRN Reason: Constipation Last Admin: 10/06/17 21:17 Dose: 10 mg Cholecalciferol (Vitamin D) 1,000 intlu PO DAILY [facility] Last Admin: 10/12/17 10:25 Dose: 1,000 intlu Docusate Sodium (Colace) 200 mg PO DAILY [facility] Last Admin: 10/12/17 10:26 Dose: 200 mg Enoxaparin Sodium (Lovenox) 30 mg SC DAILY [facility] PRN Reason: Protocol Last Admin: 10/12/17 10:22 Dose: 30 mg Furosemide (Lasix) 40 mg PO DAILY [facility] Last Admin: 10/12/17 10:24 Dose: 40 mg Guaifenesin (Robitussin) 100 mg PO Q6 PRN PRN Reason: Cough Last Admin: 10/12/17 12:13 Dose: 100 mg Hydrocortisone Sodium Succinate (Solu-Cortef) 100 mg IM DAILY [facility] Last Admin: 10/12/17 10:27 Dose: 100 mg Ceftriaxone Sodium 2 gm/ (Sodium Chloride) 100 mls @ 100 mls/hr IVPB DAILY [facility] PRN Reason: Protocol Last Admin: 10/12/17 10:21 Dose: 100 mls/hr Milrinone Lactate/Dextrose (Primacor 20mg/100ml D5w) 100 mls @ 5.372 mls/hr IV .[id number] [facility] PRN Reason: Protocol Last Admin: 10/12/17 12:11 Dose: 5.372 mls/hr Lactulose (Enulose) 20 gm PO DAILY PRN PRN Reason: Constipation Last Admin: 10/05/17 17:16 Dose: 20 gm Levothyroxine Sodium (Synthroid) 25 mcg PO DAILY@0630 [facility] Last Admin: 10/12/17 10:12 Dose: Not Given Losartan Potassium (Cozaar) 25 mg PO DAILY [facility] Last Admin: 10/12/17 12:06 Dose: 25 mg Memantine (Namenda) 10 mg PO DAILY [facility] Last Admin: 10/12/17 10:24 Dose: 10 mg Metoprolol Succinate (Toprol Xl) 50 mg PO DAILY [facility] Last Admin: 10/12/17 12:06 Dose: 50 mg Multivitamins/Minerals (Therapeutic-M Tab) 1 tab PO DAILY [facility] Last Admin: 10/12/17 10:26 Dose: 1 tab Ranolazine (Ranexa) 500 mg PO DAILY [facility] Last Admin: 10/12/17 10:24 Dose: 500 mg Saccharomyces Boulardii (Florastor) 250 mg PO BID [facility] Last Admin: 10/12/17 10:22 Dose: 250 mg Sildenafil Citrate (Revatio) 20 mg PO BID [facility] Last Admin: 10/12/17 10:25 Dose: 20 mg - Labs Labs: 10/12/17 04:20 10/11/17 04:20 - Constitutional Appears: Non-toxic, Chronically Ill - Head Exam Head Exam: NORMOCEPHALIC - Eye Exam Eye Exam: PERRL - ENT Exam ENT Exam: Mucous Membranes Dry - Neck Exam Neck Exam: absent: Lymphadenopathy - Respiratory Exam Respiratory Exam: Decreased Breath Sounds - Cardiovascular Exam Cardiovascular Exam: REGULAR RHYTHM - GI/Abdominal Exam GI & Abdominal Exam: Distended, Soft Assessment and Plan (1) Abdominal pain Status: Acute (2) Sepsis Status: Acute (3) GINNY (acute kidney injury) Status: Acute (4) Acute exacerbation of congestive heart failure Status: Acute (5) Bronchospasm with bronchitis, acute Status: Acute (6) Chest pain Status: Acute
--- NOTE | 2017-10-12 23:56 | CP.PCM.PN ---
Subjective - Date & Time of Evaluation Date of Evaluation: 10/12/17 Time of Evaluation: 23:00 Objective - Vital Signs/Intake and Output Vital Signs (last 24 hours): Temp Pulse Resp BP Pulse Ox 98.8 F 125 H 20 129/65 94 L 10/12/17 19:44 10/12/17 19:44 10/12/17 19:44 10/12/17 19:44 10/12/17 19:44 - Medications Medications: Current Medications Acetaminophen (Tylenol 325mg Tab) 650 mg PO Q6 PRN PRN Reason: Fever >100.4 F Last Admin: 10/03/17 00:07 Dose: 650 mg Acetaminophen (Tylenol 325mg Tab) 650 mg PO Q6 PRN PRN Reason: Pain, Mild (1-3) Last Admin: 10/12/17 02:51 Dose: 650 mg Albuterol Sulfate (Albuterol 0.083% Inhal Shu (2.5 Mg/3 Ml) Ud) 2.5 mg INH RQ4 PRN PRN Reason: Shortness of Breath Last Admin: 10/11/17 03:34 Dose: 2.5 mg Albuterol/Ipratropium (Duoneb 3 Mg/0.5 Mg (3 Ml) Ud) 3 ml INH RQID [facility] Last Admin: 10/12/17 19:24 Dose: 3 ml Amiodarone HCl (Cordarone) 100 mg PO DAILY [facility] Last Admin: 10/12/17 10:24 Dose: 100 mg Anastrozole (Arimidex 1 Mg Tab) 1 mg PO DAILY [facility] Last Admin: 10/12/17 10:28 Dose: 1 mg Ascorbic Acid (Vitamin C 500 Mg Tab) 500 mg PO DAILY [facility] Last Admin: 10/12/17 10:25 Dose: 500 mg Aspirin (Ecotrin) 81 mg PO DAILY [facility] Last Admin: 10/12/17 10:25 Dose: 81 mg Atorvastatin Calcium (Lipitor) 20 mg PO HS [facility] Last Admin: 10/12/17 21:20 Dose: 20 mg Bisacodyl (Dulcolax) 10 mg [place] DAILY PRN PRN Reason: Constipation Last Admin: 10/06/17 21:17 Dose: 10 mg Cholecalciferol (Vitamin D) 1,000 intlu PO DAILY [facility] Last Admin: 10/12/17 10:25 Dose: 1,000 intlu Docusate Sodium (Colace) 200 mg PO DAILY [facility] Last Admin: 10/12/17 10:26 Dose: 200 mg Enoxaparin Sodium (Lovenox) 30 mg SC DAILY [facility] PRN Reason: Protocol Last Admin: 10/12/17 10:22 Dose: 30 mg Furosemide (Lasix) 40 mg PO DAILY [facility] Last Admin: 10/12/17 10:24 Dose: 40 mg Guaifenesin (Robitussin) 100 mg PO Q6 PRN PRN Reason: Cough Last Admin: 10/12/17 12:13 Dose: 100 mg Hydrocortisone Sodium Succinate (Solu-Cortef) 100 mg IM DAILY [facility] Last Admin: 10/12/17 10:27 Dose: 100 mg Ceftriaxone Sodium 2 gm/ (Sodium Chloride) 100 mls @ 100 mls/hr IVPB DAILY [facility] PRN Reason: Protocol Last Admin: 10/12/17 10:21 Dose: 100 mls/hr Milrinone Lactate/Dextrose (Primacor 20mg/100ml D5w) 100 mls @ 5.372 mls/hr IV .[id number] [facility] PRN Reason: Protocol Last Admin: 10/12/17 12:11 Dose: 5.372 mls/hr Lactulose (Enulose) 20 gm PO DAILY PRN PRN Reason: Constipation Last Admin: 10/05/17 17:16 Dose: 20 gm Levothyroxine Sodium (Synthroid) 25 mcg PO DAILY@0630 [facility] Last Admin: 10/12/17 10:12 Dose: Not Given Losartan Potassium (Cozaar) 25 mg PO DAILY [facility] Last Admin: 10/12/17 12:06 Dose: 25 mg Memantine (Namenda) 10 mg PO DAILY [facility] Last Admin: 10/12/17 10:24 Dose: 10 mg Metoprolol Succinate (Toprol Xl) 50 mg PO DAILY [facility] Last Admin: 10/12/17 12:06 Dose: 50 mg Multivitamins/Minerals (Therapeutic-M Tab) 1 tab PO DAILY [facility] Last Admin: 10/12/17 10:26 Dose: 1 tab Ranolazine (Ranexa) 500 mg PO DAILY [facility] Last Admin: 10/12/17 10:24 Dose: 500 mg Saccharomyces Boulardii (Florastor) 250 mg PO BID [facility] Last Admin: 10/12/17 16:15 Dose: 250 mg Sildenafil Citrate (Revatio) 20 mg PO BID [facility] Last Admin: 10/12/17 16:15 Dose: 20 mg - Labs Labs: 10/12/17 04:20 10/11/17 04:20 Assessment and Plan (1) Sepsis Status: Acute (2) Suspected urinary tract infection Status: Acute (3) Acute exacerbation of congestive heart failure Status: Acute (4) Leukocytosis Status: Acute (5) V-tach Status: Acute (6) CAD (coronary artery disease) Status: Chronic (7) CHF (congestive heart failure) Status: Chronic (8) Pulmonary arterial hypertension Status: Chronic
[2017-10-13] MEDS: Albuterol 0.083% Inhal Sol (2.5 mg/3 mL) UD INH PRN (04:18)
[2017-10-13] MEDS: Levothyroxine 25 MCG TAB PO SCH (06:18)
[2017-10-13] MEDS: Albuterol-Ipratrop 3 mg / 0.5 (3 ml) UD INH SCH ×4 (08:05→20:37)
[2017-10-13 10:13] LABS: HEMOGLOBIN 10.7 g/dL (12.0-16.0); MEAN CELL VOLUME 96.1 fl (81.0-99.0); MEAN CORPUSCULAR HEMOGLOBIN 31.3 pg (27.0-31.0); MEAN CORPUSCULAR HGB CONC 32.6 g/dL (33.0-37.0); RBC 3.43 Mil/uL (3.80-5.20); RED CELL DISTRIBUTION WIDTH 14.8 % (11.5-14.5)
[2017-10-13 10:33] LABS: BLOOD UREA NITROGEN 22 mg/dl (7-17); CALCIUM 8.2 mg/dL (8.4-10.2); GFR AFRICAN-AMERICAN > 60; GFR NON-AFRICAN AMERICAN 53
[2017-10-13] MEDS: cefTRIAXone 2 GM in Sodium Chloride 0.9% 100 ML IVPB SCH (10:33)
[2017-10-13] MEDS: Enoxaparin 30 mg Syringe SC SCH (10:40)
[2017-10-13] MEDS: Ranolazine 500 mg Extended Release Tablets PO SCH (10:41)
[2017-10-13] MEDS: Saccharomyces Boulardi 250 mg Cap PO SCH ×2 (10:41→17:06)
[2017-10-13] MEDS: Multivitamin With Minerals Tab PO SCH (10:41)
[2017-10-13] MEDS: Sildenafil 20 MG TAB PO SCH ×2 (10:42→17:06)
[2017-10-13] MEDS: Metoprolol Succinate 50 mg XL Tab PO SCH (10:44)
[2017-10-13] MEDS: Cholecalciferol 1,000 INTLU TAB PO SCH (10:45)
[2017-10-13] MEDS: guaiFENesin 100 mg/5 ml Syrup UD PO PRN (10:48)
--- NOTE | 2017-10-13 10:48 | CP.PCM.PN ---
Subjective - Date & Time of Evaluation Date of Evaluation: 10/13/17 Time of Evaluation: 10:48 - Subjective Subjective: The patient was seen and examined on rounds with the residents this morning. She claims to be feeling somewhat improved today over yesterday. Her vital signs appear to remain stable although she is mildly tachycardic and hypertensive. Her oxygenation was maintained with nasal cannula at 2 L/m and she continues to be afebrile. She continues to have an elevated white count of 21,000. Her hemoglobin is stable at 10.7. She is hypokalemic at 2.7 but her renal function appears to be stable. On examination there is no dullness on chest percussion anteriorly. Sounds are diminished bilaterally but present equally in both lungs. Medium rales are heard posteriorly in the lower lobes, more so right than left. No bronchial breathing or egophony is appreciated. No wheezing. Mild dependent edema of the lower extremities is still present. Steroid therapy has been reduced to 50 mg HYDROCORTISONE once daily. CBC will be requested for the morning and if leukocytosis is not improving alternate antibiotic regimen will be required. 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 Objective - Vital Signs/Intake and Output Vital Signs (last 24 hours): Temp Pulse Resp BP Pulse Ox 98.3 F 124 H 20 167/68 H 96 10/13/17 08:00 10/13/17 08:00 10/13/17 08:00 10/13/17 08:00 10/13/17 08:00 - Medications Medications: Current Medications Acetaminophen (Tylenol 325mg Tab) 650 mg PO Q6 PRN PRN Reason: Fever >100.4 F Last Admin: 10/03/17 00:07 Dose: 650 mg Acetaminophen (Tylenol 325mg Tab) 650 mg PO Q6 PRN PRN Reason: Pain, Mild (1-3) Last Admin: 10/12/17 02:51 Dose: 650 mg Albuterol Sulfate (Albuterol 0.083% Inhal Shu (2.5 Mg/3 Ml) Ud) 2.5 mg INH RQ4 PRN PRN Reason: Shortness of Breath Last Admin: 10/13/17 04:18 Dose: 2.5 mg Albuterol/Ipratropium (Duoneb 3 Mg/0.5 Mg (3 Ml) Ud) 3 ml INH RQID [facility] Last Admin: 10/13/17 08:05 Dose: 3 ml Amiodarone HCl (Cordarone) 100 mg PO DAILY [facility] Last Admin: 10/12/17 10:24 Dose: 100 mg Anastrozole (Arimidex 1 Mg Tab) 1 mg PO DAILY [facility] Last Admin: 10/12/17 10:28 Dose: 1 mg Ascorbic Acid (Vitamin C 500 Mg Tab) 500 mg PO DAILY [facility] Last Admin: 10/12/17 10:25 Dose: 500 mg Aspirin (Ecotrin) 81 mg PO DAILY [facility] Last Admin: 10/12/17 10:25 Dose: 81 mg Atorvastatin Calcium (Lipitor) 20 mg PO HS [facility] Last Admin: 10/12/17 21:20 Dose: 20 mg Bisacodyl (Dulcolax) 10 mg [place] DAILY PRN PRN Reason: Constipation Last Admin: 10/06/17 21:17 Dose: 10 mg Cholecalciferol (Vitamin D) 1,000 intlu PO DAILY [facility] Last Admin: 10/12/17 10:25 Dose: 1,000 intlu Docusate Sodium (Colace) 200 mg PO DAILY [facility] Last Admin: 10/12/17 10:26 Dose: 200 mg Enoxaparin Sodium (Lovenox) 30 mg SC DAILY [facility] PRN Reason: Protocol Last Admin: 10/12/17 10:22 Dose: 30 mg Furosemide (Lasix) 40 mg PO DAILY [facility] Last Admin: 10/12/17 10:24 Dose: 40 mg Guaifenesin (Robitussin) 100 mg PO Q6 PRN PRN Reason: Cough Last Admin: 10/12/17 12:13 Dose: 100 mg Hydrocortisone Sodium Succinate (Solu-Cortef) 50 mg IM ONCE ONE Stop: 10/14/17 09:01 Ceftriaxone Sodium 2 gm/ (Sodium Chloride) 100 mls @ 100 mls/hr IVPB DAILY [facility] PRN Reason: Protocol Last Admin: 10/12/17 10:21 Dose: 100 mls/hr Milrinone Lactate/Dextrose (Primacor 20mg/100ml D5w) 100 mls @ 5.372 mls/hr IV .[id number] [facility] PRN Reason: Protocol Last Admin: 10/12/17 12:11 Dose: 5.372 mls/hr Lactulose (Enulose) 20 gm PO DAILY PRN PRN Reason: Constipation Last Admin: 10/05/17 17:16 Dose: 20 gm Levothyroxine Sodium (Synthroid) 25 mcg PO DAILY@0630 [facility] Last Admin: 10/13/17 06:18 Dose: 25 mcg Losartan Potassium (Cozaar) 25 mg PO DAILY [facility] Last Admin: 10/12/17 12:06 Dose: 25 mg Memantine (Namenda) 10 mg PO DAILY [facility] Last Admin: 10/12/17 10:24 Dose: 10 mg Metoprolol Succinate (Toprol Xl) 50 mg PO DAILY [facility] Last Admin: 10/12/17 12:06 Dose: 50 mg Multivitamins/Minerals (Therapeutic-M Tab) 1 tab PO DAILY [facility] Last Admin: 10/12/17 10:26 Dose: 1 tab Ranolazine (Ranexa) 500 mg PO DAILY [facility] Last Admin: 10/12/17 10:24 Dose: 500 mg Saccharomyces Boulardii (Florastor) 250 mg PO BID [facility] Last Admin: 10/12/17 16:15 Dose: 250 mg Sildenafil Citrate (Revatio) 20 mg PO BID [facility] Last Admin: 10/12/17 16:15 Dose: 20 mg - Labs Labs: 10/13/17 10:05 10/13/17 10:05 Assessment and Plan (1) Abdominal pain Status: Acute (2) Sepsis Status: Acute (3) Pneumonia Status: Acute (4) Hydroureteronephrosis Status: Acute (5) Suspected urinary tract infection Status: Acute (6) Chronic constipation Status: Chronic
[2017-10-13] MEDS ORDERED: Hydrocortisone- 50 MG in Sodium Chloride 0.9% 100 ML IV ONE (11:01)
[2017-10-13] MEDS: Milrinone 20mg/100ml D5W 100 ML IV SCH ×2 (12:26→12:27)
[2017-10-13] MEDS ORDERED: Potassium Chloride 20 mEq ER Tab PO ONE (12:57)
--- NOTE | 2017-10-13 13:34 | CP.PCM.PN ---
Subjective - Date & Time of Evaluation Date of Evaluation: 10/13/17 Time of Evaluation: 08:00 - Subjective Subjective: feels ok no fever Objective - Vital Signs/Intake and Output Vital Signs (last 24 hours): Temp Pulse Resp BP Pulse Ox 98.1 F 120 H 20 116/58 L 95 10/13/17 12:39 10/13/17 12:39 10/13/17 12:39 10/13/17 12:39 10/13/17 12:39 - Medications Medications: Current Medications Acetaminophen (Tylenol 325mg Tab) 650 mg PO Q6 PRN PRN Reason: Fever >100.4 F Last Admin: 10/03/17 00:07 Dose: 650 mg Acetaminophen (Tylenol 325mg Tab) 650 mg PO Q6 PRN PRN Reason: Pain, Mild (1-3) Last Admin: 10/12/17 02:51 Dose: 650 mg Albuterol Sulfate (Albuterol 0.083% Inhal Shu (2.5 Mg/3 Ml) Ud) 2.5 mg INH RQ4 PRN PRN Reason: Shortness of Breath Last Admin: 10/13/17 04:18 Dose: 2.5 mg Albuterol/Ipratropium (Duoneb 3 Mg/0.5 Mg (3 Ml) Ud) 3 ml INH RQID [facility] Last Admin: 10/13/17 11:07 Dose: 3 ml Amiodarone HCl (Cordarone) 100 mg PO DAILY [facility] Last Admin: 10/13/17 10:42 Dose: 100 mg Anastrozole (Arimidex 1 Mg Tab) 1 mg PO DAILY [facility] Last Admin: 10/13/17 10:47 Dose: 1 mg Ascorbic Acid (Vitamin C 500 Mg Tab) 500 mg PO DAILY [facility] Last Admin: 10/13/17 10:45 Dose: 500 mg Aspirin (Ecotrin) 81 mg PO DAILY [facility] Last Admin: 10/13/17 10:41 Dose: 81 mg Atorvastatin Calcium (Lipitor) 20 mg PO HS [facility] Last Admin: 10/12/17 21:20 Dose: 20 mg Bisacodyl (Dulcolax) 10 mg [place] DAILY PRN PRN Reason: Constipation Last Admin: 10/06/17 21:17 Dose: 10 mg Cholecalciferol (Vitamin D) 1,000 intlu PO DAILY [facility] Last Admin: 10/13/17 10:45 Dose: 1,000 intlu Docusate Sodium (Colace) 200 mg PO DAILY [facility] Last Admin: 10/13/17 10:44 Dose: 200 mg Enoxaparin Sodium (Lovenox) 30 mg SC DAILY [facility] PRN Reason: Protocol Last Admin: 10/13/17 10:40 Dose: 30 mg Furosemide (Lasix) 40 mg PO DAILY [facility] Last Admin: 10/13/17 10:46 Dose: 40 mg Guaifenesin (Robitussin) 100 mg PO Q6 PRN PRN Reason: Cough Last Admin: 10/13/17 10:48 Dose: 100 mg Hydrocortisone Sodium Succinate (Solu-Cortef) 50 mg IM ONCE ONE Stop: 10/14/17 09:01 Ceftriaxone Sodium 2 gm/ (Sodium Chloride) 100 mls @ 100 mls/hr IVPB DAILY [facility] PRN Reason: Protocol Last Admin: 10/13/17 10:33 Dose: 100 mls/hr Milrinone Lactate/Dextrose (Primacor 20mg/100ml D5w) 100 mls @ 5.372 mls/hr IV .[id number] PRN Reason: Protocol Last Admin: 10/13/17 12:27 Dose: 5.372 mls/hr Lactulose (Enulose) 20 gm PO DAILY PRN PRN Reason: Constipation Last Admin: 10/05/17 17:16 Dose: 20 gm Levothyroxine Sodium (Synthroid) 25 mcg PO DAILY@0630 [facility] Last Admin: 10/13/17 06:18 Dose: 25 mcg Losartan Potassium (Cozaar) 25 mg PO DAILY [facility] Last Admin: 10/13/17 10:46 Dose: 25 mg Memantine (Namenda) 10 mg PO DAILY [facility] Last Admin: 10/13/17 10:41 Dose: 10 mg Metoprolol Succinate (Toprol Xl) 50 mg PO DAILY [facility] Last Admin: 10/13/17 10:44 Dose: 50 mg Multivitamins/Minerals (Therapeutic-M Tab) 1 tab PO DAILY [facility] Last Admin: 10/13/17 10:41 Dose: 1 tab Ranolazine (Ranexa) 500 mg PO DAILY [facility] Last Admin: 10/13/17 10:41 Dose: 500 mg Saccharomyces Boulardii (Florastor) 250 mg PO BID [facility] Last Admin: 10/13/17 10:41 Dose: 250 mg Sildenafil Citrate (Revatio) 20 mg PO BID [facility] Last Admin: 10/13/17 10:42 Dose: 20 mg - Labs Labs: 10/13/17 10:05 10/13/17 10:05 - Constitutional Appears: Non-toxic, Chronically Ill - Head Exam Head Exam: NORMOCEPHALIC - Eye Exam Eye Exam: PERRL - ENT Exam ENT Exam: Mucous Membranes Dry - Neck Exam Neck Exam: absent: Lymphadenopathy - Respiratory Exam Respiratory Exam: Decreased Breath Sounds - Cardiovascular Exam Cardiovascular Exam: REGULAR RHYTHM - GI/Abdominal Exam GI & Abdominal Exam: Distended - Rectal Exam Rectal Exam: Deferred - Exam Exam: NORMAL INSPECTION - Extremities Exam Extremities Exam: absent: Full ROM - Back Exam Back Exam: absent: CVA tenderness (L), CVA tenderness (R) Assessment and Plan (1) Abdominal pain Status: Acute (2) Sepsis Status: Acute (3) GINNY (acute kidney injury) Status: Acute (4) Acute exacerbation of congestive heart failure Status: Acute (5) Bronchospasm with bronchitis, acute Status: Acute (6) Chest pain Status: Acute
--- NOTE | 2017-10-13 13:49 | CP.PCM.PN ---
Subjective - Date & Time of Evaluation Date of Evaluation: 10/13/17 Time of Evaluation: 13:48 - Subjective Subjective: improving Objective - Vital Signs/Intake and Output Vital Signs (last 24 hours): Temp Pulse Resp BP Pulse Ox 98.1 F 120 H 20 116/58 L 95 10/13/17 12:39 10/13/17 12:39 10/13/17 12:39 10/13/17 12:39 10/13/17 12:39 - Medications Medications: Current Medications Acetaminophen (Tylenol 325mg Tab) 650 mg PO Q6 PRN PRN Reason: Fever >100.4 F Last Admin: 10/03/17 00:07 Dose: 650 mg Acetaminophen (Tylenol 325mg Tab) 650 mg PO Q6 PRN PRN Reason: Pain, Mild (1-3) Last Admin: 10/12/17 02:51 Dose: 650 mg Albuterol Sulfate (Albuterol 0.083% Inhal Shu (2.5 Mg/3 Ml) Ud) 2.5 mg INH RQ4 PRN PRN Reason: Shortness of Breath Last Admin: 10/13/17 04:18 Dose: 2.5 mg Albuterol/Ipratropium (Duoneb 3 Mg/0.5 Mg (3 Ml) Ud) 3 ml INH RQID [facility] Last Admin: 10/13/17 11:07 Dose: 3 ml Amiodarone HCl (Cordarone) 100 mg PO DAILY [facility] Last Admin: 10/13/17 10:42 Dose: 100 mg Anastrozole (Arimidex 1 Mg Tab) 1 mg PO DAILY [facility] Last Admin: 10/13/17 10:47 Dose: 1 mg Ascorbic Acid (Vitamin C 500 Mg Tab) 500 mg PO DAILY [facility] Last Admin: 10/13/17 10:45 Dose: 500 mg Aspirin (Ecotrin) 81 mg PO DAILY [facility] Last Admin: 10/13/17 10:41 Dose: 81 mg Atorvastatin Calcium (Lipitor) 20 mg PO HS [facility] Last Admin: 10/12/17 21:20 Dose: 20 mg Bisacodyl (Dulcolax) 10 mg [place] DAILY PRN PRN Reason: Constipation Last Admin: 10/06/17 21:17 Dose: 10 mg Cholecalciferol (Vitamin D) 1,000 intlu PO DAILY [facility] Last Admin: 10/13/17 10:45 Dose: 1,000 intlu Docusate Sodium (Colace) 200 mg PO DAILY [facility] Last Admin: 10/13/17 10:44 Dose: 200 mg Enoxaparin Sodium (Lovenox) 30 mg SC DAILY [facility] PRN Reason: Protocol Last Admin: 10/13/17 10:40 Dose: 30 mg Furosemide (Lasix) 40 mg PO DAILY [facility] Last Admin: 10/13/17 10:46 Dose: 40 mg Guaifenesin (Robitussin) 100 mg PO Q6 PRN PRN Reason: Cough Last Admin: 10/13/17 10:48 Dose: 100 mg Hydrocortisone Sodium Succinate (Solu-Cortef) 50 mg IM ONCE ONE Stop: 10/14/17 09:01 Ceftriaxone Sodium 2 gm/ (Sodium Chloride) 100 mls @ 100 mls/hr IVPB DAILY [facility] PRN Reason: Protocol Last Admin: 10/13/17 10:33 Dose: 100 mls/hr Milrinone Lactate/Dextrose (Primacor 20mg/100ml D5w) 100 mls @ 5.372 mls/hr IV .[id number] [facility] PRN Reason: Protocol Last Admin: 10/13/17 12:27 Dose: 5.372 mls/hr Lactulose (Enulose) 20 gm PO DAILY PRN PRN Reason: Constipation Last Admin: 10/05/17 17:16 Dose: 20 gm Levothyroxine Sodium (Synthroid) 25 mcg PO DAILY@0630 [facility] Last Admin: 10/13/17 06:18 Dose: 25 mcg Losartan Potassium (Cozaar) 25 mg PO DAILY [facility] Last Admin: 10/13/17 10:46 Dose: 25 mg Memantine (Namenda) 10 mg PO DAILY [facility] Last Admin: 10/13/17 10:41 Dose: 10 mg Metoprolol Succinate (Toprol Xl) 50 mg PO DAILY [facility] Last Admin: 10/13/17 10:44 Dose: 50 mg Multivitamins/Minerals (Therapeutic-M Tab) 1 tab PO DAILY [facility] Last Admin: 10/13/17 10:41 Dose: 1 tab Ranolazine (Ranexa) 500 mg PO DAILY [facility] Last Admin: 10/13/17 10:41 Dose: 500 mg Saccharomyces Boulardii (Florastor) 250 mg PO BID [facility] Last Admin: 10/13/17 10:41 Dose: 250 mg Sildenafil Citrate (Revatio) 20 mg PO BID [facility] Last Admin: 10/13/17 10:42 Dose: 20 mg - Labs Labs: 10/13/17 10:05 10/13/17 10:05 - Constitutional Appears: Well - Head Exam Head Exam: ATRAUMATIC, NORMAL INSPECTION, NORMOCEPHALIC - Eye Exam Eye Exam: EOMI, Normal appearance, PERRL Pupil Exam: NORMAL ACCOMODATION, PERRL - ENT Exam ENT Exam: Mucous Membranes Moist, Normal Exam - Neck Exam Neck Exam: Full ROM, Normal Inspection. absent: Lymphadenopathy - Respiratory Exam Respiratory Exam: Clear to Ausculation Bilateral, NORMAL BREATHING PATTERN - Cardiovascular Exam Cardiovascular Exam: REGULAR RHYTHM, +S1, +S2. absent: Murmur - GI/Abdominal Exam GI & Abdominal Exam: Soft, Normal Bowel Sounds. absent: Tenderness - Extremities Exam Extremities Exam: Full ROM, Normal Capillary Refill, Normal Inspection. absent : Joint Swelling, Pedal Edema - Back Exam Back Exam: NORMAL INSPECTION - Neurological Exam Neurological Exam: Alert, Awake, CN II-XII Intact, Normal Gait, Oriented x3 - Psychiatric Exam Psychiatric exam: Normal Affect, Normal Mood - Skin Skin Exam: Dry, Intact, Normal Color, Warm Assessment and Plan (1) Sepsis Status: Acute (2) Suspected urinary tract infection Status: Acute (3) Acute exacerbation of congestive heart failure Status: Acute (4) Leukocytosis Status: Acute (5) V-tach Status: Acute (6) CAD (coronary artery disease) Status: Chronic (7) CHF (congestive heart failure) Status: Chronic (8) Pulmonary arterial hypertension Status: Chronic
--- NOTE | 2017-10-13 15:58 | CP.PCM.PN ---
Subjective - Date & Time of Evaluation Date of Evaluation: 10/13/17 Time of Evaluation: 13:00 - Subjective Subjective: Patient seen and examined. Appeared weak but able to converse without difficulty although continue to complain of SOB Objective - Vital Signs/Intake and Output Vital Signs (last 24 hours): Temp Pulse Resp BP Pulse Ox 98.1 F 112 H 20 112/74 98 10/13/17 15:43 10/13/17 15:43 10/13/17 15:43 10/13/17 15:43 10/13/17 15:43 - Medications Medications: Current Medications Acetaminophen (Tylenol 325mg Tab) 650 mg PO Q6 PRN PRN Reason: Fever >100.4 F Last Admin: 10/03/17 00:07 Dose: 650 mg Acetaminophen (Tylenol 325mg Tab) 650 mg PO Q6 PRN PRN Reason: Pain, Mild (1-3) Last Admin: 10/12/17 02:51 Dose: 650 mg Albuterol Sulfate (Albuterol 0.083% Inhal Shu (2.5 Mg/3 Ml) Ud) 2.5 mg INH RQ4 PRN PRN Reason: Shortness of Breath Last Admin: 10/13/17 04:18 Dose: 2.5 mg Albuterol/Ipratropium (Duoneb 3 Mg/0.5 Mg (3 Ml) Ud) 3 ml INH RQID [facility] Last Admin: 10/13/17 11:07 Dose: 3 ml Amiodarone HCl (Cordarone) 100 mg PO DAILY [facility] Last Admin: 10/13/17 10:42 Dose: 100 mg Anastrozole (Arimidex 1 Mg Tab) 1 mg PO DAILY [facility] Last Admin: 10/13/17 10:47 Dose: 1 mg Ascorbic Acid (Vitamin C 500 Mg Tab) 500 mg PO DAILY [facility] Last Admin: 10/13/17 10:45 Dose: 500 mg Aspirin (Ecotrin) 81 mg PO DAILY [facility] Last Admin: 10/13/17 10:41 Dose: 81 mg Atorvastatin Calcium (Lipitor) 20 mg PO HS [facility] Last Admin: 10/12/17 21:20 Dose: 20 mg Bisacodyl (Dulcolax) 10 mg [place] DAILY PRN PRN Reason: Constipation Last Admin: 10/06/17 21:17 Dose: 10 mg Cholecalciferol (Vitamin D) 1,000 intlu PO DAILY [facility] Last Admin: 10/13/17 10:45 Dose: 1,000 intlu Docusate Sodium (Colace) 200 mg PO DAILY [facility] Last Admin: 10/13/17 10:44 Dose: 200 mg Enoxaparin Sodium (Lovenox) 30 mg SC DAILY [facility] PRN Reason: Protocol Last Admin: 10/13/17 10:40 Dose: 30 mg Furosemide (Lasix) 40 mg PO DAILY [facility] Last Admin: 10/13/17 10:46 Dose: 40 mg Guaifenesin (Robitussin) 100 mg PO Q6 PRN PRN Reason: Cough Last Admin: 10/13/17 10:48 Dose: 100 mg Hydrocortisone Sodium Succinate (Solu-Cortef) 50 mg IM ONCE ONE Stop: 10/14/17 09:01 Ceftriaxone Sodium 2 gm/ (Sodium Chloride) 100 mls @ 100 mls/hr IVPB DAILY [facility] PRN Reason: Protocol Last Admin: 10/13/17 10:33 Dose: 100 mls/hr Milrinone Lactate/Dextrose (Primacor 20mg/100ml D5w) 100 mls @ 5.372 mls/hr IV .[id number] [facility] PRN Reason: Protocol Last Admin: 10/13/17 12:27 Dose: 5.372 mls/hr Lactulose (Enulose) 20 gm PO DAILY PRN PRN Reason: Constipation Last Admin: 10/05/17 17:16 Dose: 20 gm Levothyroxine Sodium (Synthroid) 25 mcg PO DAILY@0630 [facility] Last Admin: 10/13/17 06:18 Dose: 25 mcg Losartan Potassium (Cozaar) 25 mg PO DAILY [facility] Last Admin: 10/13/17 10:46 Dose: 25 mg Memantine (Namenda) 10 mg PO DAILY [facility] Last Admin: 10/13/17 10:41 Dose: 10 mg Metoprolol Succinate (Toprol Xl) 50 mg PO DAILY [facility] Last Admin: 10/13/17 10:44 Dose: 50 mg Multivitamins/Minerals (Therapeutic-M Tab) 1 tab PO DAILY [facility] Last Admin: 10/13/17 10:41 Dose: 1 tab Ranolazine (Ranexa) 500 mg PO DAILY [facility] Last Admin: 10/13/17 10:41 Dose: 500 mg Saccharomyces Boulardii (Florastor) 250 mg PO BID [facility] Last Admin: 10/13/17 10:41 Dose: 250 mg Sildenafil Citrate (Revatio) 20 mg PO BID [facility] Last Admin: 10/13/17 10:42 Dose: 20 mg - Labs Labs: 10/13/17 10:05 10/13/17 10:05 - Constitutional Appears: No Acute Distress, Chronically Ill - Head Exam Head Exam: ATRAUMATIC - Eye Exam Eye Exam: absent: Scleral icterus - ENT Exam ENT Exam: Mucous Membranes Moist - Neck Exam Neck Exam: absent: Meningismus - Respiratory Exam Respiratory Exam: Rales (ob both bases). absent: Wheezes - Cardiovascular Exam Cardiovascular Exam: Tachycardia - GI/Abdominal Exam GI & Abdominal Exam: Soft. absent: Tenderness - Rectal Exam Rectal Exam: Deferred - Extremities Exam Extremities Exam: Pedal Edema - Neurological Exam Neurological Exam: Alert, Oriented x3 - Psychiatric Exam Psychiatric exam: Normal Affect - Skin Skin Exam: Dry, Intact Assessment and Plan - Assessment and Plan (Free Text) Assessment: 81 yo female with history of Cardiomyopathy with AICD, Pulmonary HTN, COPD, HTN , HLD, Hypothyroidism, Osteoporosis, RA and CKD stage III admitted on 10/02/17 with Sepsis secondary to UTI. 1. Sepsis urine and blood culture grew Klebsiella Pneumonia antibiotic switched to Rocephin (4th day) after 5 days of IV Meropenem afebrile, WBC still elevated but very slowly trending down Dr West on ID consult 2. UTI urine culture grew Klebsiella repeat urinalysis 3. COPD exacerbation continue Duoneb prn 4. Cardiomyopathy CXray showed mild pulmonary congestion [place]: [place] [id number] Da Silva on cardiology consult continue Milrinone drip Lasix 40mg PO daily Troponin: negative for ischemia 5. Acute on CKD stage III renal function improving
[2017-10-14] MEDS: Levothyroxine 25 MCG TAB PO SCH (05:40)
[2017-10-14] MEDS: Albuterol-Ipratrop 3 mg / 0.5 (3 ml) UD INH SCH ×4 (07:38→19:08)
[2017-10-14] MEDS: Saccharomyces Boulardi 250 mg Cap PO SCH ×2 (09:35→16:30)
[2017-10-14] MEDS: Enoxaparin 30 mg Syringe SC SCH ×2 (09:36→16:32)
[2017-10-14] MEDS: Milrinone 20mg/100ml D5W 100 ML IV SCH (09:36)
[2017-10-14] MEDS: Sildenafil 20 MG TAB PO SCH ×2 (09:38→16:30)
[2017-10-14] MEDS: Ranolazine 500 mg Extended Release Tablets PO SCH (09:38)
[2017-10-14] MEDS: Multivitamin With Minerals Tab PO SCH (09:39)
[2017-10-14] MEDS: Metoprolol Succinate 50 mg XL Tab PO SCH (09:39)
[2017-10-14] MEDS: Cholecalciferol 1,000 INTLU TAB PO SCH (09:40)
[2017-10-14] MEDS: cefTRIAXone 2 GM in Sodium Chloride 0.9% 100 ML IVPB SCH (09:41)
--- NOTE | 2017-10-14 09:44 | CP.PCM.PN ---
<Terrie Schroeder - Last Filed: 10/14/17 12:32> Subjective - Subjective Subjective: The patient was seen and examined on rounds with the residents this morning. Pt is an 81 yo F with a hx of cardiomyopathy, COPD exacerbation, Pulm HTN, CKD, admitted on 10/02/17 due to sepsis from UTI. Patient is doing well this morning she slept throughout the night and feels well. She states she has urinated and had a bowel movement. The patient is still mildly tachycardic (111) and hypertensive today(137/84). Her oxygenation is maintained via 2L nasal canula continues to be afebrile. This morning the patients K 2.7, repeating electrolytes this am consider D/C Solucortech. WBC count trending downward now 17,000 from 21,000. Hg is stable at 10.9. On examination patient has some hoarseness and dry mouth, decreased B/L dependent LE edema, Lung exam is positive for medium Rales heard posteriorly, negative for B/L wheezing, negative for Pneumonia, no bronchial breathing or egophony appreciated, diminishes breath sounds B/L and no dullness to chest percussion anteriorly. Repeat electrolytes to monitor K levels- replete as necessary , renal function and WBC count, D/Cd solucortech Objective - Vital Signs/Intake and Output Vital Signs (last 24 hours): Temp Pulse Resp BP Pulse Ox 97.4 F L 111 H 20 137/84 98 10/14/17 08:16 10/14/17 09:39 10/14/17 08:16 10/14/17 09:39 10/14/17 08:16 Intake and Output: 10/14/17 10/14/17 06:59 18:59 Intake Total 100 Balance 100 - Medications Medications: Current Medications Acetaminophen (Tylenol 325mg Tab) 650 mg PO Q6 PRN PRN Reason: Fever >100.4 F Last Admin: 10/03/17 00:07 Dose: 650 mg Acetaminophen (Tylenol 325mg Tab) 650 mg PO Q6 PRN PRN Reason: Pain, Mild (1-3) Last Admin: 10/12/17 02:51 Dose: 650 mg Albuterol Sulfate (Albuterol 0.083% Inhal Shu (2.5 Mg/3 Ml) Ud) 2.5 mg INH RQ4 PRN PRN Reason: Shortness of Breath Last Admin: 10/13/17 04:18 Dose: 2.5 mg Albuterol/Ipratropium (Duoneb 3 Mg/0.5 Mg (3 Ml) Ud) 3 ml INH RQID [facility] Last Admin: 10/14/17 11:43 Dose: 3 ml Amiodarone HCl (Cordarone) 100 mg PO DAILY [facility] Last Admin: 10/14/17 09:34 Dose: 100 mg Anastrozole (Arimidex 1 Mg Tab) 1 mg PO DAILY [facility] Last Admin: 10/14/17 09:33 Dose: 1 mg Ascorbic Acid (Vitamin C 500 Mg Tab) 500 mg PO DAILY [facility] Last Admin: 10/14/17 09:39 Dose: 500 mg Aspirin (Ecotrin) 81 mg PO DAILY [facility] Last Admin: 10/14/17 09:35 Dose: 81 mg Atorvastatin Calcium (Lipitor) 20 mg PO HS [facility] Last Admin: 10/13/17 22:04 Dose: 20 mg Bisacodyl (Dulcolax) 10 mg [place] DAILY PRN PRN Reason: Constipation Last Admin: 10/06/17 21:17 Dose: 10 mg Cholecalciferol (Vitamin D) 1,000 intlu PO DAILY [facility] Last Admin: 10/14/17 09:40 Dose: 1,000 intlu Docusate Sodium (Colace) 200 mg PO DAILY [facility] Last Admin: 10/14/17 09:34 Dose: 200 mg Furosemide (Lasix) 40 mg PO DAILY [facility] Last Admin: 10/14/17 09:35 Dose: 40 mg Guaifenesin (Robitussin) 100 mg PO Q6 PRN PRN Reason: Cough Last Admin: 10/13/17 10:48 Dose: 100 mg Ceftriaxone Sodium 2 gm/ (Sodium Chloride) 100 mls @ 100 mls/hr IVPB DAILY [facility] PRN Reason: Protocol Last Admin: 10/14/17 09:41 Dose: 100 mls/hr Milrinone Lactate/Dextrose (Primacor 20mg/100ml D5w) 100 mls @ 5.372 mls/hr IV .[id number] [facility] PRN Reason: Protocol Last Admin: 10/14/17 09:36 Dose: 5.372 mls/hr Lactulose (Enulose) 20 gm PO DAILY PRN PRN Reason: Constipation Last Admin: 10/05/17 17:16 Dose: 20 gm Levothyroxine Sodium (Synthroid) 25 mcg PO DAILY@0630 [facility] Last Admin: 10/14/17 05:40 Dose: 25 mcg Losartan Potassium (Cozaar) 25 mg PO DAILY [facility] Last Admin: 10/14/17 09:35 Dose: 25 mg Memantine (Namenda) 10 mg PO DAILY [facility] Last Admin: 10/14/17 09:36 Dose: 10 mg Metoprolol Succinate (Toprol Xl) 50 mg PO DAILY [facility] Last Admin: 10/14/17 09:39 Dose: 50 mg Multivitamins/Minerals (Therapeutic-M Tab) 1 tab PO DAILY [facility] Last Admin: 10/14/17 09:39 Dose: 1 tab Ranolazine (Ranexa) 500 mg PO DAILY [facility] Last Admin: 10/14/17 09:38 Dose: 500 mg Saccharomyces Boulardii (Florastor) 250 mg PO BID [facility] Last Admin: 10/14/17 09:35 Dose: 250 mg Sildenafil Citrate (Revatio) 20 mg PO BID [facility] Last Admin: 10/14/17 09:38 Dose: 20 mg - Labs Labs: 10/14/17 09:22 10/14/17 09:22 <Filiberto Gomez - Last Filed: 10/14/17 14:05> Subjective - Date & Time of Evaluation Date of Evaluation: 10/14/17 Time of Evaluation: 09:44 - Subjective Subjective: The patient was examined on rounds this morning with the resident. Physical findings were reviewed and discussed. Plan of care was formulated as well. The case was also discussed with Dr Da Silva. I am in agreement with the resident's note as entered. Objective - Vital Signs/Intake and Output Vital Signs (last 24 hours): Temp Pulse Resp BP Pulse Ox 97.4 F L 111 H 20 137/84 98 10/14/17 08:16 10/14/17 09:39 10/14/17 08:16 10/14/17 09:39 10/14/17 08:16 Intake and Output: 10/13/17 10/14/17 23:59 11:59 Intake Total 100 Balance 100 - Medications Medications: Current Medications Acetaminophen (Tylenol 325mg Tab) 650 mg PO Q6 PRN PRN Reason: Fever >100.4 F Last Admin: 10/03/17 00:07 Dose: 650 mg Acetaminophen (Tylenol 325mg Tab) 650 mg PO Q6 PRN PRN Reason: Pain, Mild (1-3) Last Admin: 10/12/17 02:51 Dose: 650 mg Albuterol Sulfate (Albuterol 0.083% Inhal Shu (2.5 Mg/3 Ml) Ud) 2.5 mg INH RQ4 PRN PRN Reason: Shortness of Breath Last Admin: 10/13/17 04:18 Dose: 2.5 mg Albuterol/Ipratropium (Duoneb 3 Mg/0.5 Mg (3 Ml) Ud) 3 ml INH RQID [facility] Last Admin: 10/14/17 07:38 Dose: 3 ml Amiodarone HCl (Cordarone) 100 mg PO DAILY [facility] Last Admin: 10/14/17 09:34 Dose: 100 mg Anastrozole (Arimidex 1 Mg Tab) 1 mg PO DAILY [facility] Last Admin: 10/14/17 09:33 Dose: 1 mg Ascorbic Acid (Vitamin C 500 Mg Tab) 500 mg PO DAILY [facility] Last Admin: 10/14/17 09:39 Dose: 500 mg Aspirin (Ecotrin) 81 mg PO DAILY [facility] Last Admin: 10/14/17 09:35 Dose: 81 mg Atorvastatin Calcium (Lipitor) 20 mg PO HS [facility] Last Admin: 10/13/17 22:04 Dose: 20 mg Bisacodyl (Dulcolax) 10 mg [place] DAILY PRN PRN Reason: Constipation Last Admin: 10/06/17 21:17 Dose: 10 mg Cholecalciferol (Vitamin D) 1,000 intlu PO DAILY [facility] Last Admin: 10/14/17 09:40 Dose: 1,000 intlu Docusate Sodium (Colace) 200 mg PO DAILY [facility] Last Admin: 10/14/17 09:34 Dose: 200 mg Furosemide (Lasix) 40 mg PO DAILY [facility] Last Admin: 10/14/17 09:35 Dose: 40 mg Guaifenesin (Robitussin) 100 mg PO Q6 PRN PRN Reason: Cough Last Admin: 10/13/17 10:48 Dose: 100 mg Ceftriaxone Sodium 2 gm/ (Sodium Chloride) 100 mls @ 100 mls/hr IVPB DAILY [facility] PRN Reason: Protocol Last Admin: 10/13/17 10:33 Dose: 100 mls/hr Milrinone Lactate/Dextrose (Primacor 20mg/100ml D5w) 100 mls @ 5.372 mls/hr IV .[id number] PRN Reason: Protocol Last Admin: 10/14/17 09:36 Dose: 5.372 mls/hr Lactulose (Enulose) 20 gm PO DAILY PRN PRN Reason: Constipation Last Admin: 10/05/17 17:16 Dose: 20 gm Levothyroxine Sodium (Synthroid) 25 mcg PO DAILY@0630 [facility] Last Admin: 10/14/17 05:40 Dose: 25 mcg Losartan Potassium (Cozaar) 25 mg PO DAILY [facility] Last Admin: 10/14/17 09:35 Dose: 25 mg Memantine (Namenda) 10 mg PO DAILY [facility] Last Admin: 10/14/17 09:36 Dose: 10 mg Metoprolol Succinate (Toprol Xl) 50 mg PO DAILY [facility] Last Admin: 10/14/17 09:39 Dose: 50 mg Multivitamins/Minerals (Therapeutic-M Tab) 1 tab PO DAILY [facility] Last Admin: 10/14/17 09:39 Dose: 1 tab Ranolazine (Ranexa) 500 mg PO DAILY [facility] Last Admin: 10/14/17 09:38 Dose: 500 mg Saccharomyces Boulardii (Florastor) 250 mg PO BID [facility] Last Admin: 10/14/17 09:35 Dose: 250 mg Sildenafil Citrate (Revatio) 20 mg PO BID [facility] Last Admin: 10/14/17 09:38 Dose: 20 mg - Labs Labs: 10/13/17 10:05 10/13/17 10:05 Assessment and Plan (1) Abdominal pain Status: Acute (2) Sepsis Status: Acute (3) Pneumonia Status: Acute (4) Hydroureteronephrosis Status: Acute (5) Suspected urinary tract infection Status: Acute (6) Chronic constipation Status: Chronic
[2017-10-14 09:59] LABS: HEMOGLOBIN 10.9 g/dL (12.0-16.0); MEAN CELL VOLUME 96.1 fl (81.0-99.0); MEAN CORPUSCULAR HEMOGLOBIN 31.4 pg (27.0-31.0); MEAN CORPUSCULAR HGB CONC 32.7 g/dL (33.0-37.0); RBC 3.47 Mil/uL (3.80-5.20); RED CELL DISTRIBUTION WIDTH 15.3 % (11.5-14.5); WHITE BLOOD COUNT 17.7 K/uL (4.8-10.8)
[2017-10-14 10:10] LABS: BLOOD UREA NITROGEN 18 mg/dl (7-17); GFR AFRICAN-AMERICAN > 60; GFR NON-AFRICAN AMERICAN > 60
[2017-10-14] MEDS ORDERED: Potassium Chloride 20 mEq/15 ml LIQ UD PO ONE (10:35)
--- NOTE | 2017-10-14 11:41 | RAD ---
Date of service: 10/14/2017 HISTORY: pneumonia COMPARISON: Portable chest 10/01/2017. TECHNIQUE: Chest PA and lateral FINDINGS: LUNGS: Pacemaker/AICD obscures right base. No definite infiltrate at the mid to inferior right lung zones. Limited left basilar airspace disease is questioned. By hilar hypervascular changes are suggested and indicate potential developing pulmonary vascular congestion with cardiac size remaining mildly prominent. PLEURA: No right pleural effusion identified or pneumothorax bilaterally. Smaller pleural effusion is questioned. CARDIOVASCULAR: Please see the lung section above. OSSEOUS STRUCTURES: No significant abnormalities. VISUALIZED UPPER ABDOMEN: Normal. OTHER FINDINGS: Left axillary surgical clips reiterated. IMPRESSION: Mild pulmonary vascular congestion is questioned. Limited airspace disease at the left base is noted. Trace left pleural effusion in question.
--- NOTE | 2017-10-14 15:46 | CP.PCM.PN ---
Subjective - Date & Time of Evaluation Date of Evaluation: 10/14/17 Time of Evaluation: 10:00 - Subjective Subjective: Patient was seen and examined at bedside with Dr. Gomez. Continues to complain of shortness of breath. No wheezing today, appears to be slowly improving clinically. No new complaints today. Objective - Vital Signs/Intake and Output Vital Signs (last 24 hours): Temp Pulse Resp BP Pulse Ox 98.0 F 109 H 20 121/75 97 10/14/17 13:06 10/14/17 13:06 10/14/17 13:06 10/14/17 13:06 10/14/17 13:06 Intake and Output: 10/14/17 10/14/17 06:59 18:59 Intake Total 100 Balance 100 - Medications Medications: Current Medications Acetaminophen (Tylenol 325mg Tab) 650 mg PO Q6 PRN PRN Reason: Fever >100.4 F Last Admin: 10/03/17 00:07 Dose: 650 mg Acetaminophen (Tylenol 325mg Tab) 650 mg PO Q6 PRN PRN Reason: Pain, Mild (1-3) Last Admin: 10/12/17 02:51 Dose: 650 mg Albuterol Sulfate (Albuterol 0.083% Inhal Shu (2.5 Mg/3 Ml) Ud) 2.5 mg INH RQ4 PRN PRN Reason: Shortness of Breath Last Admin: 10/13/17 04:18 Dose: 2.5 mg Albuterol/Ipratropium (Duoneb 3 Mg/0.5 Mg (3 Ml) Ud) 3 ml INH RQID [facility] Last Admin: 10/14/17 11:43 Dose: 3 ml Amiodarone HCl (Cordarone) 100 mg PO DAILY [facility] Last Admin: 10/14/17 09:34 Dose: 100 mg Anastrozole (Arimidex 1 Mg Tab) 1 mg PO DAILY [facility] Last Admin: 10/14/17 09:33 Dose: 1 mg Ascorbic Acid (Vitamin C 500 Mg Tab) 500 mg PO DAILY [facility] Last Admin: 10/14/17 09:39 Dose: 500 mg Aspirin (Ecotrin) 81 mg PO DAILY [facility] Last Admin: 10/14/17 09:35 Dose: 81 mg Atorvastatin Calcium (Lipitor) 20 mg PO HS [facility] Last Admin: 10/13/17 22:04 Dose: 20 mg Bisacodyl (Dulcolax) 10 mg [place] DAILY PRN PRN Reason: Constipation Last Admin: 10/06/17 21:17 Dose: 10 mg Cholecalciferol (Vitamin D) 1,000 intlu PO DAILY [facility] Last Admin: 10/14/17 09:40 Dose: 1,000 intlu Docusate Sodium (Colace) 200 mg PO DAILY [facility] Last Admin: 10/14/17 09:34 Dose: 200 mg Furosemide (Lasix) 40 mg PO DAILY [facility] Last Admin: 10/14/17 09:35 Dose: 40 mg Guaifenesin (Robitussin) 100 mg PO Q6 PRN PRN Reason: Cough Last Admin: 10/13/17 10:48 Dose: 100 mg Ceftriaxone Sodium 2 gm/ (Sodium Chloride) 100 mls @ 100 mls/hr IVPB DAILY [facility] PRN Reason: Protocol Last Admin: 10/14/17 09:41 Dose: 100 mls/hr Milrinone Lactate/Dextrose (Primacor 20mg/100ml D5w) 100 mls @ 5.372 mls/hr IV .[id number] [facility] PRN Reason: Protocol Last Admin: 10/14/17 09:36 Dose: 5.372 mls/hr Lactulose (Enulose) 20 gm PO DAILY PRN PRN Reason: Constipation Last Admin: 10/05/17 17:16 Dose: 20 gm Levothyroxine Sodium (Synthroid) 25 mcg PO DAILY@0630 [facility] Last Admin: 10/14/17 05:40 Dose: 25 mcg Losartan Potassium (Cozaar) 25 mg PO DAILY [facility] Last Admin: 10/14/17 09:35 Dose: 25 mg Memantine (Namenda) 10 mg PO DAILY [facility] Last Admin: 10/14/17 09:36 Dose: 10 mg Metoprolol Succinate (Toprol Xl) 50 mg PO DAILY [facility] Last Admin: 10/14/17 09:39 Dose: 50 mg Multivitamins/Minerals (Therapeutic-M Tab) 1 tab PO DAILY [facility] Last Admin: 10/14/17 09:39 Dose: 1 tab Ranolazine (Ranexa) 500 mg PO DAILY [facility] Last Admin: 10/14/17 09:38 Dose: 500 mg Saccharomyces Boulardii (Florastor) 250 mg PO BID [facility] Last Admin: 10/14/17 09:35 Dose: 250 mg Sildenafil Citrate (Revatio) 20 mg PO BID [facility] Last Admin: 10/14/17 09:38 Dose: 20 mg - Labs Labs: 10/14/17 09:22 10/14/17 09:22 - Additional Findings Additional findings: Physical exam: Constitutional- cooperative, awake, alert Head- NCAT, PERRL Eye- PERRL, EOMI ENT- normal exam, MMM. Neck- normal inspection, supple, no JVD Respiratory- Bibasilar rales, no wheezing, no rhonchi. Cardiovascular- RRR, +S1, +S2 no MRG GI/Abdominal- normal bowel sounds, soft, no mass, no hsm Skin- warm, dry Extremities Exam- normal capillary refill, normal inspection Neurological Exam- alert, awake, oriented Psych- normal mood, normal affect Assessment and Plan - Assessment and Plan (Free Text) Plan: 81 yo female with history of Cardiomyopathy with AICD, Pulmonary HTN, COPD, HTN , HLD, Hypothyroidism, Osteoporosis, RA and CKD stage III admitted on 10/02/17 with Sepsis secondary to UTI. 1. Sepsis, slowly improving, still with leukocytosis acute urine and blood culture grew Klebsiella Pneumonia antibiotic switched to Rocephin (6th day) after 5 days of IV Meropenem afebrile, WBC still elevated but very slowly trending down, 17.7 today down from 21 Dr [place] on ID consult 2. Hypokalemia - acute - repleting po - recheck in AM 2. UTI acute urine culture grew Klebsiella continue Rocephin IV 3. COPD exacerbation- resolved continue Duoneb prn 4. Cardiomyopathy acute on chronic CXray showed mild pulmonary congestion ProBNP: [place] [id number] [id number] [address] Da Silva on cardiology consult continue Milrinone drip Lasix 40mg PO daily Troponin: negative for ischemia 5. Acute on CKD stage III renal function improving
[2017-10-15] MEDS: Milrinone 20mg/100ml D5W 100 ML IV SCH ×2 (02:27→22:04)
[2017-10-15 05:34] LABS: HEMOGLOBIN 10.3 g/dL (12.0-16.0); MEAN CORPUSCULAR HEMOGLOBIN 31.3 pg (27.0-31.0); MEAN CORPUSCULAR HGB CONC 32.3 g/dL (33.0-37.0); RBC 3.28 Mil/uL (3.80-5.20); RED CELL DISTRIBUTION WIDTH 14.8 % (11.5-14.5); WHITE BLOOD COUNT 15.5 K/uL (4.8-10.8)
[2017-10-15] MEDS: Levothyroxine 25 MCG TAB PO SCH (06:13)
[2017-10-15] MEDS: Albuterol-Ipratrop 3 mg / 0.5 (3 ml) UD INH SCH ×4 (08:11→19:29)
[2017-10-15] MEDS: Enoxaparin 30 mg Syringe SC SCH (09:22)
[2017-10-15] MEDS: Sildenafil 20 MG TAB PO SCH ×2 (09:23→17:31)
[2017-10-15] MEDS: Cholecalciferol 1,000 INTLU TAB PO SCH (09:23)
[2017-10-15] MEDS: cefTRIAXone 2 GM in Sodium Chloride 0.9% 100 ML IVPB SCH (09:23)
[2017-10-15] MEDS: Saccharomyces Boulardi 250 mg Cap PO SCH ×2 (09:23→17:31)
[2017-10-15] MEDS: Ranolazine 500 mg Extended Release Tablets PO SCH (09:24)
[2017-10-15] MEDS: Multivitamin With Minerals Tab PO SCH (09:24)
[2017-10-15] MEDS: Metoprolol Succinate 50 mg XL Tab PO SCH (09:28)
[2017-10-15] MEDS ORDERED: Sodium Chloride 3% for Inhalation 4 ML VIAL.NEB IH PRN (09:44)
[2017-10-15] MEDS ORDERED: Potassium Chloride 20 mEq/15 ml LIQ UD PO ONE (09:45)
[2017-10-15] MEDS ORDERED: Piperacillin/Tazobact 3.375 GM in Sodium Chloride 0.9% 100 ML IVPB SCH (10:00)
[2017-10-15 10:47] LABS: ABG ALLEN TEST YES; ARTERIAL BLOOD GAS HCO3 32.1 mmol/L (21-28); ARTERIAL BLOOD GAS HEMOGLOBIN 10.8 g/dL (11.7-17.4); ARTERIAL BLOOD GAS O2 CAPACITY 14.7 mL/dL (16-24); ARTERIAL BLOOD GAS O2 CONTENT 14.5 ML/dL (15-23); ARTERIAL BLOOD GAS O2 SAT 98.5 % (95-98); ARTERIAL BLOOD GAS PCO2 38 mm/Hg (35-45); ARTERIAL BLOOD GAS PH 7.54 (7.35-7.45); ARTERIAL BLOOD GAS PO2 87 mm/Hg (80-100); ARTERIAL BLOOD GAS TCO2 33.7 mmol/L (22-28)
--- NOTE | 2017-10-15 13:10 | CP.PCM.PN ---
<Terrie Schroeder - Last Filed: 10/15/17 18:21> Subjective - Subjective Subjective: The patient was seen and examined on rounds with the residents this morning. Pt is an 81 yo F with a hx of cardiomyopathy, COPD exacerbation, Pulm HTN, CKD, admitted on 10/02/17 due to klebsiella sepsis from UTI. Patient is doing well this morning she slept throughout the night and feels well. She states she has urinated and had a bowel movement. The patient is still mildly tachycardic (110 ) and her BP is low/normal (102/56). Her O2 Sat is 90 on room air (gave her 2L nasal canula) continues to be afebrile. This morning the patients K 3.4, Renal function stable, WBC count trending downward now 15,000 from 17,000 Hg is stable at 10.3. On examination patient has some hoarseness better than yesterday, B/L dependent LE edema, Lung exam is positive for Rhonchi, medium Rales heard posteriorly, negative for B/L wheezing, negative for Pneumonia, no bronchial breathing or egophony appreciated, diminishes breath sounds B/L and no dullness to chest percussion anteriorly. Ordered CT scan w/out contrast as a pleural effusion and possible new infiltrate was noted on CXR, Ordered U/A, ABG, blood Cx, Sputum Cx, monitor renal function, monitor electrolytes, D/C'd Rocephin due to worsening condition started Zosyn and Vancomycin consult with ID on plan, Ordered Vanc Trough. Objective - Vital Signs/Intake and Output Vital Signs (last 24 hours): Temp Pulse Resp BP Pulse Ox 97.9 F 96 H 18 115/76 100 10/15/17 15:43 10/15/17 15:43 10/15/17 15:43 10/15/17 15:43 10/15/17 15:43 Intake and Output: 10/15/17 10/15/17 06:59 18:59 Intake Total 100 Balance 100 - Medications Medications: Current Medications Acetaminophen (Tylenol 325mg Tab) 650 mg PO Q6 PRN PRN Reason: Fever >100.4 F Last Admin: 10/03/17 00:07 Dose: 650 mg Acetaminophen (Tylenol 325mg Tab) 650 mg PO Q6 PRN PRN Reason: Pain, Mild (1-3) Last Admin: 10/12/17 02:51 Dose: 650 mg Albuterol Sulfate (Albuterol 0.083% Inhal Shu (2.5 Mg/3 Ml) Ud) 2.5 mg INH RQ4 PRN PRN Reason: Shortness of Breath Last Admin: 10/13/17 04:18 Dose: 2.5 mg Albuterol/Ipratropium (Duoneb 3 Mg/0.5 Mg (3 Ml) Ud) 3 ml INH RQID [facility] Last Admin: 10/15/17 15:30 Dose: 3 ml Amiodarone HCl (Cordarone) 100 mg PO DAILY [facility] Last Admin: 10/15/17 09:29 Dose: 100 mg Anastrozole (Arimidex 1 Mg Tab) 1 mg PO DAILY [facility] Last Admin: 10/15/17 09:22 Dose: 1 mg Ascorbic Acid (Vitamin C 500 Mg Tab) 500 mg PO DAILY [facility] Last Admin: 10/15/17 09:24 Dose: 500 mg Aspirin (Ecotrin) 81 mg PO DAILY [facility] Last Admin: 10/15/17 09:25 Dose: 81 mg Atorvastatin Calcium (Lipitor) 20 mg PO HS [facility] Last Admin: 10/14/17 21:08 Dose: 20 mg Bisacodyl (Dulcolax) 10 mg [place] DAILY PRN PRN Reason: Constipation Last Admin: 10/06/17 21:17 Dose: 10 mg Cholecalciferol (Vitamin D) 1,000 intlu PO DAILY [facility] Last Admin: 10/15/17 09:23 Dose: 1,000 intlu Docusate Sodium (Colace) 200 mg PO DAILY [facility] Last Admin: 10/15/17 09:23 Dose: 200 mg Enoxaparin Sodium (Lovenox) 30 mg SC DAILY [facility] PRN Reason: Protocol Last Admin: 10/15/17 09:22 Dose: 30 mg Furosemide (Lasix) 40 mg PO DAILY [facility] Last Admin: 10/15/17 09:29 Dose: 40 mg Guaifenesin (Robitussin) 100 mg PO Q6 PRN PRN Reason: Cough Last Admin: 10/13/17 10:48 Dose: 100 mg Milrinone Lactate/Dextrose (Primacor 20mg/100ml D5w) 100 mls @ 5.372 mls/hr IV .[id number] [facility] PRN Reason: Protocol Last Admin: 10/15/17 02:27 Dose: 5.372 mls/hr Vancomycin HCl 500 mg/ Sodium (Chloride) 100 mls @ 100 mls/hr IVPB Q12 [facility] PRN Reason: Protocol Last Admin: 10/15/17 12:17 Dose: 100 mls/hr Piperacillin Sod/Tazobactam (Sod 3.375 gm/ Sodium Chloride) 100 mls @ 100 mls/ hr IVPB Q8 [facility] PRN Reason: Protocol Lactulose (Enulose) 20 gm PO DAILY PRN PRN Reason: Constipation Last Admin: 10/05/17 17:16 Dose: 20 gm Levothyroxine Sodium (Synthroid) 25 mcg PO DAILY@0630 [facility] Last Admin: 10/15/17 06:13 Dose: 25 mcg Losartan Potassium (Cozaar) 25 mg PO DAILY [facility] Last Admin: 10/15/17 09:25 Dose: 25 mg Memantine (Namenda) 10 mg PO DAILY [facility] Last Admin: 10/15/17 09:24 Dose: 10 mg Metoprolol Succinate (Toprol Xl) 50 mg PO DAILY [facility] Last Admin: 10/15/17 09:28 Dose: 50 mg Multivitamins/Minerals (Therapeutic-M Tab) 1 tab PO DAILY [facility] Last Admin: 10/15/17 09:24 Dose: 1 tab Ranolazine (Ranexa) 500 mg PO DAILY [facility] Last Admin: 10/15/17 09:24 Dose: 500 mg Saccharomyces Boulardii (Florastor) 250 mg PO BID [facility] Last Admin: 10/15/17 09:23 Dose: 250 mg Sildenafil Citrate (Revatio) 20 mg PO BID [facility] Last Admin: 10/15/17 09:23 Dose: 20 mg - Labs Labs: 10/15/17 05:23 10/15/17 05:23 <Filiberto Gomez - Last Filed: 10/16/17 08:28> Subjective - Date & Time of Evaluation Date of Evaluation: 10/15/17 Time of Evaluation: 13:10 - Subjective Subjective: The patient was seen and examined together with the residents on rounds in telemetry. Her physical findings were reviewed and the case was discussed in detail. A plan of care was formulated and agreed upon. I am in agreement with the entry made by the resident in the EMR. Objective - Vital Signs/Intake and Output Vital Signs (last 24 hours): Temp Pulse Resp BP Pulse Ox 98.2 F 110 H 18 116/72 91 L 10/15/17 08:07 10/15/17 09:29 10/15/17 08:07 10/15/17 09:29 10/15/17 08:07 Intake and Output: 10/15/17 10/15/17 11:59 23:59 Intake Total 100 Balance 100 - Medications Medications: Current Medications Acetaminophen (Tylenol 325mg Tab) 650 mg PO Q6 PRN PRN Reason: Fever >100.4 F Last Admin: 10/03/17 00:07 Dose: 650 mg Acetaminophen (Tylenol 325mg Tab) 650 mg PO Q6 PRN PRN Reason: Pain, Mild (1-3) Last Admin: 10/12/17 02:51 Dose: 650 mg Albuterol Sulfate (Albuterol 0.083% Inhal Shu (2.5 Mg/3 Ml) Ud) 2.5 mg INH RQ4 PRN PRN Reason: Shortness of Breath Last Admin: 10/13/17 04:18 Dose: 2.5 mg Albuterol/Ipratropium (Duoneb 3 Mg/0.5 Mg (3 Ml) Ud) 3 ml INH RQID [facility] Last Admin: 10/15/17 11:45 Dose: 3 ml Amiodarone HCl (Cordarone) 100 mg PO DAILY [facility] Last Admin: 10/15/17 09:29 Dose: 100 mg Anastrozole (Arimidex 1 Mg Tab) 1 mg PO DAILY [facility] Last Admin: 10/15/17 09:22 Dose: 1 mg Ascorbic Acid (Vitamin C 500 Mg Tab) 500 mg PO DAILY [facility] Last Admin: 10/15/17 09:24 Dose: 500 mg Aspirin (Ecotrin) 81 mg PO DAILY [facility] Last Admin: 10/15/17 09:25 Dose: 81 mg Atorvastatin Calcium (Lipitor) 20 mg PO HS [facility] Last Admin: 10/14/17 21:08 Dose: 20 mg Bisacodyl (Dulcolax) 10 mg [place] DAILY PRN PRN Reason: Constipation Last Admin: 10/06/17 21:17 Dose: 10 mg Cholecalciferol (Vitamin D) 1,000 intlu PO DAILY [facility] Last Admin: 10/15/17 09:23 Dose: 1,000 intlu Docusate Sodium (Colace) 200 mg PO DAILY [facility] Last Admin: 10/15/17 09:23 Dose: 200 mg Enoxaparin Sodium (Lovenox) 30 mg SC DAILY [facility] PRN Reason: Protocol Last Admin: 10/15/17 09:22 Dose: 30 mg Furosemide (Lasix) 40 mg PO DAILY [facility] Last Admin: 10/15/17 09:29 Dose: 40 mg Guaifenesin (Robitussin) 100 mg PO Q6 PRN PRN Reason: Cough Last Admin: 10/13/17 10:48 Dose: 100 mg Milrinone Lactate/Dextrose (Primacor 20mg/100ml D5w) 100 mls @ 5.372 mls/hr IV .[id number] [facility] PRN Reason: Protocol Last Admin: 10/15/17 02:27 Dose: 5.372 mls/hr Vancomycin HCl 500 mg/ Sodium (Chloride) 100 mls @ 100 mls/hr IVPB Q12 [facility] PRN Reason: Protocol Last Admin: 10/15/17 12:17 Dose: 100 mls/hr Piperacillin Sod/Tazobactam (Sod 3.375 gm/ Sodium Chloride) 100 mls @ 100 mls/ hr IVPB Q8 [facility] PRN Reason: Protocol Lactulose (Enulose) 20 gm PO DAILY PRN PRN Reason: Constipation Last Admin: 10/05/17 17:16 Dose: 20 gm Levothyroxine Sodium (Synthroid) 25 mcg PO DAILY@0630 [facility] Last Admin: 10/15/17 06:13 Dose: 25 mcg Losartan Potassium (Cozaar) 25 mg PO DAILY [facility] Last Admin: 10/15/17 09:25 Dose: 25 mg Memantine (Namenda) 10 mg PO DAILY [facility] Last Admin: 10/15/17 09:24 Dose: 10 mg Metoprolol Succinate (Toprol Xl) 50 mg PO DAILY [facility] Last Admin: 10/15/17 09:28 Dose: 50 mg Multivitamins/Minerals (Therapeutic-M Tab) 1 tab PO DAILY [facility] Last Admin: 10/15/17 09:24 Dose: 1 tab Ranolazine (Ranexa) 500 mg PO DAILY [facility] Last Admin: 10/15/17 09:24 Dose: 500 mg Saccharomyces Boulardii (Florastor) 250 mg PO BID [facility] Last Admin: 10/15/17 09:23 Dose: 250 mg Sildenafil Citrate (Revatio) 20 mg PO BID [facility] Last Admin: 10/15/17 09:23 Dose: 20 mg - Labs Labs: 10/15/17 05:23 10/15/17 05:23 Assessment and Plan (1) Abdominal pain Status: Acute (2) Sepsis Status: Acute (3) Pneumonia Status: Acute (4) Hydroureteronephrosis Status: Acute (5) Suspected urinary tract infection Status: Acute (6) Chronic constipation Status: Chronic
--- NOTE | 2017-10-15 13:53 | CP.PCM.PN ---
Subjective - Date & Time of Evaluation Date of Evaluation: 10/15/17 Time of Evaluation: 11:00 - Subjective Subjective: Patient was seen and examined today. Appears more fatigued today and continues to be short of breath. No other new complaints today. Case discussed with Dr. Gomez. Objective - Vital Signs/Intake and Output Vital Signs (last 24 hours): Temp Pulse Resp BP Pulse Ox 98.2 F 110 H 18 116/72 91 L 10/15/17 08:07 10/15/17 09:29 10/15/17 08:07 10/15/17 09:29 10/15/17 08:07 Intake and Output: 10/15/17 10/15/17 06:59 18:59 Intake Total 100 Balance 100 - Medications Medications: Current Medications Acetaminophen (Tylenol 325mg Tab) 650 mg PO Q6 PRN PRN Reason: Fever >100.4 F Last Admin: 10/03/17 00:07 Dose: 650 mg Acetaminophen (Tylenol 325mg Tab) 650 mg PO Q6 PRN PRN Reason: Pain, Mild (1-3) Last Admin: 10/12/17 02:51 Dose: 650 mg Albuterol Sulfate (Albuterol 0.083% Inhal Shu (2.5 Mg/3 Ml) Ud) 2.5 mg INH RQ4 PRN PRN Reason: Shortness of Breath Last Admin: 10/13/17 04:18 Dose: 2.5 mg Albuterol/Ipratropium (Duoneb 3 Mg/0.5 Mg (3 Ml) Ud) 3 ml INH RQID [facility] Last Admin: 10/15/17 08:11 Dose: 3 ml Amiodarone HCl (Cordarone) 100 mg PO DAILY [facility] Last Admin: 10/15/17 09:29 Dose: 100 mg Anastrozole (Arimidex 1 Mg Tab) 1 mg PO DAILY [facility] Last Admin: 10/15/17 09:22 Dose: 1 mg Ascorbic Acid (Vitamin C 500 Mg Tab) 500 mg PO DAILY [facility] Last Admin: 10/15/17 09:24 Dose: 500 mg Aspirin (Ecotrin) 81 mg PO DAILY [facility] Last Admin: 10/15/17 09:25 Dose: 81 mg Atorvastatin Calcium (Lipitor) 20 mg PO HS [facility] Last Admin: 10/14/17 21:08 Dose: 20 mg Bisacodyl (Dulcolax) 10 mg [place] DAILY PRN PRN Reason: Constipation Last Admin: 10/06/17 21:17 Dose: 10 mg Cholecalciferol (Vitamin D) 1,000 intlu PO DAILY [facility] Last Admin: 10/15/17 09:23 Dose: 1,000 intlu Docusate Sodium (Colace) 200 mg PO DAILY [facility] Last Admin: 10/15/17 09:23 Dose: 200 mg Enoxaparin Sodium (Lovenox) 30 mg SC DAILY [facility] PRN Reason: Protocol Last Admin: 10/15/17 09:22 Dose: 30 mg Furosemide (Lasix) 40 mg PO DAILY [facility] Last Admin: 10/15/17 09:29 Dose: 40 mg Guaifenesin (Robitussin) 100 mg PO Q6 PRN PRN Reason: Cough Last Admin: 10/13/17 10:48 Dose: 100 mg Milrinone Lactate/Dextrose (Primacor 20mg/100ml D5w) 100 mls @ 5.372 mls/hr IV .[id number] [facility] PRN Reason: Protocol Last Admin: 10/15/17 02:27 Dose: 5.372 mls/hr Vancomycin HCl 500 mg/ Sodium (Chloride) 100 mls @ 100 mls/hr IVPB Q12 [facility] PRN Reason: Protocol Piperacillin Sod/Tazobactam (Sod 3.375 gm/ Sodium Chloride) 100 mls @ 100 mls/ hr IVPB Q8 [facility] PRN Reason: Protocol Lactulose (Enulose) 20 gm PO DAILY PRN PRN Reason: Constipation Last Admin: 10/05/17 17:16 Dose: 20 gm Levothyroxine Sodium (Synthroid) 25 mcg PO DAILY@0630 [facility] Last Admin: 10/15/17 06:13 Dose: 25 mcg Losartan Potassium (Cozaar) 25 mg PO DAILY [facility] Last Admin: 10/15/17 09:25 Dose: 25 mg Memantine (Namenda) 10 mg PO DAILY [facility] Last Admin: 10/15/17 09:24 Dose: 10 mg Metoprolol Succinate (Toprol Xl) 50 mg PO DAILY [facility] Last Admin: 10/15/17 09:28 Dose: 50 mg Multivitamins/Minerals (Therapeutic-M Tab) 1 tab PO DAILY [facility] Last Admin: 10/15/17 09:24 Dose: 1 tab Ranolazine (Ranexa) 500 mg PO DAILY [facility] Last Admin: 10/15/17 09:24 Dose: 500 mg Saccharomyces Boulardii (Florastor) 250 mg PO BID [facility] Last Admin: 10/15/17 09:23 Dose: 250 mg Sildenafil Citrate (Revatio) 20 mg PO BID [facility] Last Admin: 10/15/17 09:23 Dose: 20 mg - Labs Labs: 10/15/17 05:23 10/15/17 05:23 - Additional Findings Additional findings: Physical exam: Constitutional- cooperative, awake, more fatigued today Head- NCAT, PERRL Eye- PERRL, EOMI ENT- normal exam, MMM. Neck- normal inspection, supple, no JVD Respiratory- Bibasilar rales, no wheezing, no rhonchi. Cardiovascular- irregularly irregular, tachycardic (110 bpm) +S1, +S2 no MRG GI/Abdominal- normal bowel sounds, soft, no mass, no hsm Skin- warm, dry Extremities Exam- normal capillary refill, normal inspection Neurological Exam- alert, awake, oriented Psych- normal mood, normal affect Assessment and Plan - Assessment and Plan (Free Text) Plan: 81 yo female with history of Cardiomyopathy with AICD, Pulmonary HTN, COPD, HTN , HLD, Hypothyroidism, Osteoporosis, RA and CKD stage III admitted on 10/02/17 with Sepsis secondary to UTI. 1. Sepsis, slowly improving, still with leukocytosis acute urine and blood culture grew Klebsiella Pneumonia antibiotic switched back to Vancomycin/Zosyn as per Dr. Gomez, will discuss with Dr. West afebrile, WBC still elevated but very slowly trending down, 21->17.7->15.[address] West on ID consult 2. Hypokalemia, resolving - acute - repleting po again today. - recheck in AM 2. UTI acute urine culture grew Klebsiella continue Rocephin IV 3. COPD exacerbation- resolved continue Duoneb prn 4. Cardiomyopathy acute on chronic CXray showed mild pulmonary congestion [place]: [place] [id number] [id number] [address] Da Silva on cardiology consult continue Milrinone drip Lasix 40mg PO daily Troponin: negative for ischemia 5. Acute on CKD stage III renal function improving 6. DVT prophylaxis - Lovenox 40 mg sc daily
--- NOTE | 2017-10-15 13:54 | CP.PCM.PN ---
Subjective - Date & Time of Evaluation Date of Evaluation: 10/15/17 Time of Evaluation: 08:00 - Subjective Subjective: slow progress iv rx renewed Objective - Vital Signs/Intake and Output Vital Signs (last 24 hours): Temp Pulse Resp BP Pulse Ox 97.9 F 110 H 18 102/56 L 93 L 10/15/17 13:31 10/15/17 13:31 10/15/17 13:31 10/15/17 13:31 10/15/17 13:31 Intake and Output: 10/15/17 10/15/17 06:59 18:59 Intake Total 100 Balance 100 - Medications Medications: Current Medications Acetaminophen (Tylenol 325mg Tab) 650 mg PO Q6 PRN PRN Reason: Fever >100.4 F Last Admin: 10/03/17 00:07 Dose: 650 mg Acetaminophen (Tylenol 325mg Tab) 650 mg PO Q6 PRN PRN Reason: Pain, Mild (1-3) Last Admin: 10/12/17 02:51 Dose: 650 mg Albuterol Sulfate (Albuterol 0.083% Inhal Shu (2.5 Mg/3 Ml) Ud) 2.5 mg INH RQ4 PRN PRN Reason: Shortness of Breath Last Admin: 10/13/17 04:18 Dose: 2.5 mg Albuterol/Ipratropium (Duoneb 3 Mg/0.5 Mg (3 Ml) Ud) 3 ml INH RQID [facility] Last Admin: 10/15/17 11:45 Dose: 3 ml Amiodarone HCl (Cordarone) 100 mg PO DAILY [facility] Last Admin: 10/15/17 09:29 Dose: 100 mg Anastrozole (Arimidex 1 Mg Tab) 1 mg PO DAILY [facility] Last Admin: 10/15/17 09:22 Dose: 1 mg Ascorbic Acid (Vitamin C 500 Mg Tab) 500 mg PO DAILY [facility] Last Admin: 10/15/17 09:24 Dose: 500 mg Aspirin (Ecotrin) 81 mg PO DAILY [facility] Last Admin: 10/15/17 09:25 Dose: 81 mg Atorvastatin Calcium (Lipitor) 20 mg PO HS [facility] Last Admin: 10/14/17 21:08 Dose: 20 mg Bisacodyl (Dulcolax) 10 mg [place] DAILY PRN PRN Reason: Constipation Last Admin: 10/06/17 21:17 Dose: 10 mg Cholecalciferol (Vitamin D) 1,000 intlu PO DAILY [facility] Last Admin: 10/15/17 09:23 Dose: 1,000 intlu Docusate Sodium (Colace) 200 mg PO DAILY [facility] Last Admin: 10/15/17 09:23 Dose: 200 mg Enoxaparin Sodium (Lovenox) 30 mg SC DAILY [facility] PRN Reason: Protocol Last Admin: 10/15/17 09:22 Dose: 30 mg Furosemide (Lasix) 40 mg PO DAILY [facility] Last Admin: 10/15/17 09:29 Dose: 40 mg Guaifenesin (Robitussin) 100 mg PO Q6 PRN PRN Reason: Cough Last Admin: 10/13/17 10:48 Dose: 100 mg Milrinone Lactate/Dextrose (Primacor 20mg/100ml D5w) 100 mls @ 5.372 mls/hr IV .[id number] [facility] PRN Reason: Protocol Last Admin: 10/15/17 02:27 Dose: 5.372 mls/hr Vancomycin HCl 500 mg/ Sodium (Chloride) 100 mls @ 100 mls/hr IVPB Q12 [facility] PRN Reason: Protocol Last Admin: 10/15/17 12:17 Dose: 100 mls/hr Piperacillin Sod/Tazobactam (Sod 3.375 gm/ Sodium Chloride) 100 mls @ 100 mls/ hr IVPB Q8 [facility] PRN Reason: Protocol Lactulose (Enulose) 20 gm PO DAILY PRN PRN Reason: Constipation Last Admin: 10/05/17 17:16 Dose: 20 gm Levothyroxine Sodium (Synthroid) 25 mcg PO DAILY@0630 [facility] Last Admin: 10/15/17 06:13 Dose: 25 mcg Losartan Potassium (Cozaar) 25 mg PO DAILY [facility] Last Admin: 10/15/17 09:25 Dose: 25 mg Memantine (Namenda) 10 mg PO DAILY [facility] Last Admin: 10/15/17 09:24 Dose: 10 mg Metoprolol Succinate (Toprol Xl) 50 mg PO DAILY [facility] Last Admin: 10/15/17 09:28 Dose: 50 mg Multivitamins/Minerals (Therapeutic-M Tab) 1 tab PO DAILY [facility] Last Admin: 10/15/17 09:24 Dose: 1 tab Ranolazine (Ranexa) 500 mg PO DAILY [facility] Last Admin: 10/15/17 09:24 Dose: 500 mg Saccharomyces Boulardii (Florastor) 250 mg PO BID [facility] Last Admin: 10/15/17 09:23 Dose: 250 mg Sildenafil Citrate (Revatio) 20 mg PO BID [facility] Last Admin: 10/15/17 09:23 Dose: 20 mg - Labs Labs: 10/15/17 05:23 10/15/17 05:23 - Constitutional Appears: Non-toxic, Chronically Ill - Head Exam Head Exam: NORMOCEPHALIC - Eye Exam Eye Exam: PERRL - ENT Exam ENT Exam: Mucous Membranes Dry - Neck Exam Neck Exam: absent: Lymphadenopathy - Respiratory Exam Respiratory Exam: Decreased Breath Sounds - Cardiovascular Exam Cardiovascular Exam: REGULAR RHYTHM - GI/Abdominal Exam GI & Abdominal Exam: Distended - Rectal Exam Rectal Exam: Deferred - Exam Exam: NORMAL INSPECTION - Extremities Exam Extremities Exam: absent: Pedal Edema - Back Exam Back Exam: absent: CVA tenderness (L), CVA tenderness (R) Assessment and Plan (1) Abdominal pain Status: Acute (2) Sepsis Status: Acute (3) GINNY (acute kidney injury) Status: Acute (4) Acute exacerbation of congestive heart failure Status: Acute (5) Bronchospasm with bronchitis, acute Status: Acute (6) Chest pain Status: Acute
--- NOTE | 2017-10-15 16:29 | CT ---
Date of service: 10/15/2017 PROCEDURE: CT Chest without contrast HISTORY: pleural effusion COMPARISON: 10/03/2017 CT thorax TECHNIQUE: Contiguous axial images were obtained through the chest without intravenous contrast enhancement. Sagittal and coronal reconstructions were performed. Radiation dose (DLP): 446.61 mGy-cm. This CT exam was performed using one or more of the following dose reduction techniques: Automated exposure control, adjustment of the mA and/or kV according to patient size, and/or use of iterative reconstruction technique. FINDINGS: LUNGS: Mosaic pattern to pulmonary parenchyma suggests a component of pulmonary vascular congestion. MEDIASTINUM: Unremarkable thoracic aorta. No aneurysm. Cardiomegaly Position/ configuration of pacemaker artery unremarkable. No vascular congestion. No lymphadenopathy. PLEURA: New (small) bilateral pleural effusions left greater than right. BONES: No fracture. No destructive lesion. UPPER ABDOMEN: Cholelithiasis without CT evidence of acute cholecystitis. OTHER FINDINGS: Small hiatal hernia IMPRESSION: Cardiomegaly, pulmonary vascular congestion likely acute CHF. Associated small pleural effusions and compressive atelectasis identified at the lung bases.
[2017-10-15] MEDS: Piperacillin/Tazobact 3.375 GM in Sodium Chloride 0.9% 100 ML IVPB SCH (17:32)
[2017-10-16] MEDS: Levothyroxine 25 MCG TAB PO SCH ×2 (05:40→05:45)
[2017-10-16] MEDS: Piperacillin/Tazobact 3.375 GM in Sodium Chloride 0.9% 100 ML IVPB SCH ×3 (05:40→18:01)
[2017-10-16 06:05] LABS: HEMOGLOBIN 10.1 g/dL (12.0-16.0); MEAN CELL VOLUME 96.2 fl (81.0-99.0); MEAN CORPUSCULAR HEMOGLOBIN 31.9 pg (27.0-31.0); MEAN CORPUSCULAR HGB CONC 33.1 g/dL (33.0-37.0); RBC 3.17 Mil/uL (3.80-5.20); RED CELL DISTRIBUTION WIDTH 14.5 % (11.5-14.5); WHITE BLOOD COUNT 14.5 K/uL (4.8-10.8)
[2017-10-16 06:20] LABS: BLOOD UREA NITROGEN 17 mg/dl (7-17); CALCIUM 8.1 mg/dL (8.4-10.2); GFR AFRICAN-AMERICAN > 60; GFR NON-AFRICAN AMERICAN 53
[2017-10-16 06:45] LABS: SQUAMOUS EPITHIAL 1 /hpf (0-5); URINE BACTERIA RARE (<OCC); URINE BILIRUBIN NEGATIVE (NEGATIVE); URINE BLOOD SMALL (NEGATIVE); URINE CLARITY CLOUDY (Clear); URINE COLOR YELLOW (YELLOW); URINE GLUCOSE (UA) NEG (Normal); URINE LEUKOCYTE ESTERASE NEG Leu/uL (Negative); URINE PROTEIN NEGATIVE (NEGATIVE); URINE UROBILINOGEN 0.2-1.0 mg/dL (0.2-1.0)
[2017-10-16] MEDS: Albuterol-Ipratrop 3 mg / 0.5 (3 ml) UD INH SCH ×3 (07:55→19:46)
[2017-10-16] MEDS: Saccharomyces Boulardi 250 mg Cap PO SCH ×2 (09:43→18:04)
[2017-10-16] MEDS: Multivitamin With Minerals Tab PO SCH (09:43)
[2017-10-16] MEDS: Ranolazine 500 mg Extended Release Tablets PO SCH (09:45)
[2017-10-16] MEDS: Sildenafil 20 MG TAB PO SCH ×2 (09:45→18:03)
[2017-10-16] MEDS: Metoprolol Succinate 50 mg XL Tab PO SCH (09:46)
[2017-10-16] MEDS: Cholecalciferol 1,000 INTLU TAB PO SCH (09:48)
[2017-10-16] MEDS: Enoxaparin 30 mg Syringe SC SCH (09:48)
[2017-10-16] MEDS ORDERED: Potassium Chloride 8 MEQ TER PO ONE (12:01)
--- NOTE | 2017-10-16 12:02 | CP.PCM.PN ---
Subjective - Date & Time of Evaluation Date of Evaluation: 10/16/17 Time of Evaluation: 12:02 - Subjective Subjective: She is on rounds in telemetry in the morning. She claims to feel relatively well today. Her voice remains hoarse. Vital signs remained stable and she continues to be afebrile. She had been restarted on ZOSYN and VANCOMYCIN, and today's WBC count is reduced to 14.5. Her medical regimen is essentially unchanged from the day before, and she continues to receive MILRINONE continuous infusion. A CT scan performed yesterday showed cardiomegaly with pulmonary vascular congestion/acute CHF with associated small pleural effusions and compressive atelectasis at the lung bases. There were no areas of consolidation noted. On physical exam fractures is pink and mucous membranes are moist. No exudate is seen. The neck is supple and trachea is midline. There is no palpable lymphadenopathy. There is no dullness on percussion of the chest anteriorly. Breath sounds are somewhat diminished bilaterally with scattered medium rales in the lower lobes of both lungs posteriorly. There is no audible wheezing. No bronchial breathing or egophony. Heart sounds are distant and the rhythm is irregular. Dependent edema appears to be slowly improving. Arterial blood gas was performed yesterday which showed adequate oxygenation and showed a suspected metabolic alkalosis. We'll continue empiric antibiotic in the form of ZOSYN/VANCOMYCIN. Random VANCOMYCIN level scheduled for proximally 6 PM today. Monitor leukocytosis and renal function. WILL empirically add NYSTATIN oral solution. Objective - Vital Signs/Intake and Output Vital Signs (last 24 hours): Temp Pulse Resp BP Pulse Ox 98.1 F 96 H 18 130/64 97 10/16/17 07:53 10/16/17 09:47 10/16/17 07:53 10/16/17 09:48 10/16/17 07:53 - Medications Medications: Current Medications Acetaminophen (Tylenol 325mg Tab) 650 mg PO Q6 PRN PRN Reason: Fever >100.4 F Last Admin: 10/03/17 00:07 Dose: 650 mg Acetaminophen (Tylenol 325mg Tab) 650 mg PO Q6 PRN PRN Reason: Pain, Mild (1-3) Last Admin: 10/12/17 02:51 Dose: 650 mg Albuterol Sulfate (Albuterol 0.083% Inhal Shu (2.5 Mg/3 Ml) Ud) 2.5 mg INH RQ4 PRN PRN Reason: Shortness of Breath Last Admin: 10/13/17 04:18 Dose: 2.5 mg Albuterol/Ipratropium (Duoneb 3 Mg/0.5 Mg (3 Ml) Ud) 3 ml INH RTID [facility] Amiodarone HCl (Cordarone) 100 mg PO DAILY [facility] Last Admin: 10/16/17 09:44 Dose: 100 mg Anastrozole (Arimidex 1 Mg Tab) 1 mg PO DAILY [facility] Last Admin: 10/16/17 09:49 Dose: 1 mg Ascorbic Acid (Vitamin C 500 Mg Tab) 500 mg PO DAILY [facility] Last Admin: 10/16/17 09:47 Dose: 500 mg Aspirin (Ecotrin) 81 mg PO DAILY [facility] Last Admin: 10/16/17 09:49 Dose: 81 mg Atorvastatin Calcium (Lipitor) 20 mg PO HS [facility] Last Admin: 10/15/17 22:06 Dose: 20 mg Bisacodyl (Dulcolax) 10 mg [place] DAILY PRN PRN Reason: Constipation Last Admin: 10/06/17 21:17 Dose: 10 mg Cholecalciferol (Vitamin D) 1,000 intlu PO DAILY [facility] Last Admin: 10/16/17 09:48 Dose: 1,000 intlu Docusate Sodium (Colace) 200 mg PO DAILY [facility] Last Admin: 10/16/17 09:43 Dose: 200 mg Enoxaparin Sodium (Lovenox) 30 mg SC DAILY [facility] PRN Reason: Protocol Last Admin: 10/16/17 09:48 Dose: 30 mg Furosemide (Lasix) 40 mg PO DAILY [facility] Last Admin: 10/16/17 09:48 Dose: 40 mg Guaifenesin (Robitussin) 100 mg PO Q6 PRN PRN Reason: Cough Last Admin: 10/13/17 10:48 Dose: 100 mg Milrinone Lactate/Dextrose (Primacor 20mg/100ml D5w) 100 mls @ 5.372 mls/hr IV .[id number] [facility] PRN Reason: Protocol Last Admin: 10/15/17 22:04 Dose: 5.372 mls/hr Vancomycin HCl 500 mg/ Sodium (Chloride) 100 mls @ 100 mls/hr IVPB Q12 [facility] PRN Reason: Protocol Last Admin: 10/16/17 09:50 Dose: 100 mls/hr Piperacillin Sod/Tazobactam (Sod 3.375 gm/ Sodium Chloride) 100 mls @ 100 mls/ hr IVPB Q8 [facility] PRN Reason: Protocol Last Admin: 10/16/17 09:51 Dose: 100 mls/hr Lactulose (Enulose) 20 gm PO DAILY PRN PRN Reason: Constipation Last Admin: 10/05/17 17:16 Dose: 20 gm Levothyroxine Sodium (Synthroid) 25 mcg PO DAILY@0630 [facility] Last Admin: 10/16/17 05:45 Dose: 25 mcg Losartan Potassium (Cozaar) 25 mg PO DAILY [facility] Last Admin: 10/16/17 09:47 Dose: 25 mg Memantine (Namenda) 10 mg PO DAILY [facility] Last Admin: 10/16/17 09:56 Dose: 10 mg Metoprolol Succinate (Toprol Xl) 50 mg PO DAILY [facility] Last Admin: 10/16/17 09:46 Dose: 50 mg Multivitamins/Minerals (Therapeutic-M Tab) 1 tab PO DAILY [facility] Last Admin: 10/16/17 09:43 Dose: 1 tab Nystatin (Nystatin Oral Susp) 5 ml PO QID [facility] Potassium Chloride (Klor-Con 8) 8 meq PO ONCE ONE Stop: 10/16/17 12:02 Ranolazine (Ranexa) 500 mg PO DAILY [facility] Last Admin: 10/16/17 09:45 Dose: 500 mg Saccharomyces Boulardii (Florastor) 250 mg PO BID [facility] Last Admin: 10/16/17 09:43 Dose: 250 mg Sildenafil Citrate (Revatio) 20 mg PO BID [facility] Last Admin: 10/16/17 09:45 Dose: 20 mg - Labs Labs: 10/16/17 04:40 10/16/17 04:40 Assessment and Plan (1) Abdominal pain Status: Acute (2) Sepsis Status: Acute (3) Pneumonia Status: Acute (4) Hydroureteronephrosis Status: Acute (5) Suspected urinary tract infection Status: Acute (6) Chronic constipation Status: Chronic
[2017-10-16] MEDS: Nystatin 100,000 Units/ml Oral Susp 5 ml UD PO SCH ×3 (13:30→21:47)
--- NOTE | 2017-10-16 16:17 | CP.PCM.PN ---
Subjective - Date & Time of Evaluation Date of Evaluation: 10/16/17 Time of Evaluation: 13:40 - Subjective Subjective: Patient seen and examined. Claimed still with SOB and feeling weak Objective - Vital Signs/Intake and Output Vital Signs (last 24 hours): Temp Pulse Resp BP Pulse Ox 97.7 F 71 20 109/67 96 10/16/17 15:43 10/16/17 15:43 10/16/17 15:43 10/16/17 15:43 10/16/17 15:43 Intake and Output: 10/16/17 10/16/17 06:59 18:59 Intake Total 100 Balance 100 - Medications Medications: Current Medications Acetaminophen (Tylenol 325mg Tab) 650 mg PO Q6 PRN PRN Reason: Fever >100.4 F Last Admin: 10/03/17 00:07 Dose: 650 mg Acetaminophen (Tylenol 325mg Tab) 650 mg PO Q6 PRN PRN Reason: Pain, Mild (1-3) Last Admin: 10/12/17 02:51 Dose: 650 mg Albuterol Sulfate (Albuterol 0.083% Inhal Shu (2.5 Mg/3 Ml) Ud) 2.5 mg INH RQ4 PRN PRN Reason: Shortness of Breath Last Admin: 10/13/17 04:18 Dose: 2.5 mg Albuterol/Ipratropium (Duoneb 3 Mg/0.5 Mg (3 Ml) Ud) 3 ml INH RTID [facility] Amiodarone HCl (Cordarone) 100 mg PO DAILY [facility] Last Admin: 10/16/17 09:44 Dose: 100 mg Anastrozole (Arimidex 1 Mg Tab) 1 mg PO DAILY [facility] Last Admin: 10/16/17 09:49 Dose: 1 mg Ascorbic Acid (Vitamin C 500 Mg Tab) 500 mg PO DAILY [facility] Last Admin: 10/16/17 09:47 Dose: 500 mg Aspirin (Ecotrin) 81 mg PO DAILY [facility] Last Admin: 10/16/17 09:49 Dose: 81 mg Atorvastatin Calcium (Lipitor) 20 mg PO HS [facility] Last Admin: 10/15/17 22:06 Dose: 20 mg Bisacodyl (Dulcolax) 10 mg [place] DAILY PRN PRN Reason: Constipation Last Admin: 10/06/17 21:17 Dose: 10 mg Cholecalciferol (Vitamin D) 1,000 intlu PO DAILY [facility] Last Admin: 10/16/17 09:48 Dose: 1,000 intlu Docusate Sodium (Colace) 200 mg PO DAILY [facility] Last Admin: 10/16/17 09:43 Dose: 200 mg Enoxaparin Sodium (Lovenox) 30 mg SC DAILY [facility] PRN Reason: Protocol Last Admin: 10/16/17 09:48 Dose: 30 mg Furosemide (Lasix) 40 mg PO DAILY [facility] Last Admin: 10/16/17 09:48 Dose: 40 mg Guaifenesin (Robitussin) 100 mg PO Q6 PRN PRN Reason: Cough Last Admin: 10/13/17 10:48 Dose: 100 mg Milrinone Lactate/Dextrose (Primacor 20mg/100ml D5w) 100 mls @ 5.372 mls/hr IV .[id number] [facility] PRN Reason: Protocol Last Admin: 10/15/17 22:04 Dose: 5.372 mls/hr Vancomycin HCl 500 mg/ Sodium (Chloride) 100 mls @ 100 mls/hr IVPB Q12 [facility] PRN Reason: Protocol Last Admin: 10/16/17 09:50 Dose: 100 mls/hr Piperacillin Sod/Tazobactam (Sod 3.375 gm/ Sodium Chloride) 100 mls @ 100 mls/ hr IVPB Q8 [facility] PRN Reason: Protocol Last Admin: 10/16/17 09:51 Dose: 100 mls/hr Lactulose (Enulose) 20 gm PO DAILY PRN PRN Reason: Constipation Last Admin: 10/05/17 17:16 Dose: 20 gm Levothyroxine Sodium (Synthroid) 25 mcg PO DAILY@0630 [facility] Last Admin: 10/16/17 05:45 Dose: 25 mcg Losartan Potassium (Cozaar) 25 mg PO DAILY [facility] Last Admin: 10/16/17 09:47 Dose: 25 mg Memantine (Namenda) 10 mg PO DAILY [facility] Last Admin: 10/16/17 09:56 Dose: 10 mg Metoprolol Succinate (Toprol Xl) 50 mg PO DAILY [facility] Last Admin: 10/16/17 09:46 Dose: 50 mg Multivitamins/Minerals (Therapeutic-M Tab) 1 tab PO DAILY [facility] Last Admin: 10/16/17 09:43 Dose: 1 tab Nystatin (Nystatin Oral Susp) 5 ml PO QID [facility] Ranolazine (Ranexa) 500 mg PO DAILY [facility] Last Admin: 10/16/17 09:45 Dose: 500 mg Saccharomyces Boulardii (Florastor) 250 mg PO BID [facility] Last Admin: 10/16/17 09:43 Dose: 250 mg Sildenafil Citrate (Revatio) 20 mg PO BID [facility] Last Admin: 10/16/17 09:45 Dose: 20 mg - Labs Labs: 10/16/17 04:40 10/16/17 04:40 - Constitutional Appears: No Acute Distress, Chronically Ill - Head Exam Head Exam: ATRAUMATIC - Eye Exam Eye Exam: absent: Scleral icterus - ENT Exam ENT Exam: Mucous Membranes Moist - Neck Exam Neck Exam: absent: Meningismus - Respiratory Exam Respiratory Exam: absent: Rales, Rhonchi, Wheezes, Respiratory Distress - Cardiovascular Exam Cardiovascular Exam: REGULAR RHYTHM, +S1, +S2 - GI/Abdominal Exam GI & Abdominal Exam: Soft. absent: Tenderness - Rectal Exam Rectal Exam: Deferred - Extremities Exam Extremities Exam: Pedal Edema - Back Exam Back Exam: absent: tenderness - Neurological Exam Neurological Exam: Alert, Oriented x3 - Psychiatric Exam Psychiatric exam: Normal Affect - Skin Skin Exam: Dry, Intact Assessment and Plan - Assessment and Plan (Free Text) Assessment: 81 yo female with history of Cardiomyopathy with AICD, Pulmonary HTN, COPD, HTN , HLD, Hypothyroidism, Osteoporosis, RA and CKD stage III admitted on 10/02/17 with Sepsis secondary to UTI. 1. Sepsis Klebsiella Pneumonia bacteremia and UTI received 5 days of IV Rocephin after 5 days of IV Meropenem started yesterday with Zosyn and Vanco Vanco trough in am WBC still elevated but slowly trending down afebrile Dr West on ID consult 2. UTI resolved 3. COPD exacerbation continue Duoneb prn 4. Cardiomyopathy CXray showed mild pulmonary congestion [place]: [place] [id number] Da Silva on cardiology consult continue Milrinone drip Lasix 40mg PO daily Troponin: negative for ischemia 5. Acute on CKD stage III renal function within normal range
[2017-10-16] MEDS: Milrinone 20mg/100ml D5W 100 ML IV SCH (18:05)
[2017-10-17] MEDS: Piperacillin/Tazobact 3.375 GM in Sodium Chloride 0.9% 100 ML IVPB SCH ×3 (00:17→16:38)
[2017-10-17] MEDS: Levothyroxine 25 MCG TAB PO SCH (06:20)
[2017-10-17 07:05] LABS: HEMOGLOBIN 10.2 g/dL (12.0-16.0); MEAN CELL VOLUME 97.6 fl (81.0-99.0); MEAN CORPUSCULAR HEMOGLOBIN 31.6 pg (27.0-31.0); MEAN CORPUSCULAR HGB CONC 32.3 g/dL (33.0-37.0); RBC 3.23 Mil/uL (3.80-5.20)
[2017-10-17] MEDS: Albuterol-Ipratrop 3 mg / 0.5 (3 ml) UD INH SCH ×3 (08:00→19:40)
[2017-10-17] MEDS: Cholecalciferol 1,000 INTLU TAB PO SCH (09:36)
[2017-10-17] MEDS: Metoprolol Succinate 50 mg XL Tab PO SCH (09:36)
[2017-10-17] MEDS: Multivitamin With Minerals Tab PO SCH (09:36)
[2017-10-17] MEDS: Saccharomyces Boulardi 250 mg Cap PO SCH ×2 (09:37→16:37)
[2017-10-17] MEDS: Sildenafil 20 MG TAB PO SCH ×2 (09:37→16:38)
[2017-10-17] MEDS: Ranolazine 500 mg Extended Release Tablets PO SCH (09:37)
[2017-10-17] MEDS: Nystatin 100,000 Units/ml Oral Susp 5 ml UD PO SCH ×4 (09:39→21:29)
[2017-10-17] MEDS: Enoxaparin 30 mg Syringe SC SCH (09:39)
[2017-10-17] MEDS: guaiFENesin 100 mg/5 ml Syrup UD PO PRN (09:39)
[2017-10-17] MEDS: Milrinone 20mg/100ml D5W 100 ML IV SCH (12:58)
--- NOTE | 2017-10-17 13:42 | CP.PCM.PN ---
Subjective - Date & Time of Evaluation Date of Evaluation: 10/14/17 Time of Evaluation: 11:00 - Subjective Subjective: congestion improving BNP trending down very lethargic and tired Objective - Vital Signs/Intake and Output Vital Signs (last 24 hours): Temp Pulse Resp BP Pulse Ox 97.6 F 63 18 94/60 L 96 10/17/17 11:55 10/17/17 11:55 10/17/17 11:55 10/17/17 11:55 10/17/17 11:55 Intake and Output: 10/17/17 10/17/17 06:59 18:59 Intake Total 100 Balance 100 - Medications Medications: Current Medications Acetaminophen (Tylenol 325mg Tab) 650 mg PO Q6 PRN PRN Reason: Fever >100.4 F Last Admin: 10/03/17 00:07 Dose: 650 mg Acetaminophen (Tylenol 325mg Tab) 650 mg PO Q6 PRN PRN Reason: Pain, Mild (1-3) Last Admin: 10/12/17 02:51 Dose: 650 mg Albuterol Sulfate (Albuterol 0.083% Inhal Shu (2.5 Mg/3 Ml) Ud) 2.5 mg INH RQ4 PRN PRN Reason: Shortness of Breath Last Admin: 10/13/17 04:18 Dose: 2.5 mg Albuterol/Ipratropium (Duoneb 3 Mg/0.5 Mg (3 Ml) Ud) 3 ml INH RTID [facility] Last Admin: 10/17/17 08:00 Dose: 3 ml Amiodarone HCl (Cordarone) 100 mg PO DAILY [facility] Last Admin: 10/17/17 09:38 Dose: 100 mg Anastrozole (Arimidex 1 Mg Tab) 1 mg PO DAILY [facility] Last Admin: 10/16/17 09:49 Dose: 1 mg Ascorbic Acid (Vitamin C 500 Mg Tab) 500 mg PO DAILY [facility] Last Admin: 10/17/17 09:37 Dose: 500 mg Aspirin (Ecotrin) 81 mg PO DAILY [facility] Last Admin: 10/17/17 09:36 Dose: 81 mg Atorvastatin Calcium (Lipitor) 20 mg PO HS [facility] Last Admin: 10/16/17 21:47 Dose: 20 mg Bisacodyl (Dulcolax) 10 mg [place] DAILY PRN PRN Reason: Constipation Last Admin: 10/06/17 21:17 Dose: 10 mg Cholecalciferol (Vitamin D) 1,000 intlu PO DAILY [facility] Last Admin: 10/17/17 09:36 Dose: 1,000 intlu Docusate Sodium (Colace) 200 mg PO DAILY [facility] Last Admin: 10/17/17 09:37 Dose: 200 mg Enoxaparin Sodium (Lovenox) 30 mg SC DAILY [facility] PRN Reason: Protocol Last Admin: 10/17/17 09:39 Dose: 30 mg Furosemide (Lasix) 40 mg PO DAILY [facility] Last Admin: 10/17/17 09:36 Dose: 40 mg Guaifenesin (Robitussin) 100 mg PO Q6 PRN PRN Reason: Cough Last Admin: 10/17/17 09:39 Dose: 100 mg Milrinone Lactate/Dextrose (Primacor 20mg/100ml D5w) 100 mls @ 5.372 mls/hr IV .[id number] [facility] PRN Reason: Protocol Last Admin: 10/17/17 12:58 Dose: 5.372 mls/hr Vancomycin HCl 500 mg/ Sodium (Chloride) 100 mls @ 100 mls/hr IVPB Q12 [facility] PRN Reason: Protocol Last Admin: 10/17/17 10:46 Dose: 100 mls/hr Piperacillin Sod/Tazobactam (Sod 3.375 gm/ Sodium Chloride) 100 mls @ 100 mls/ hr IVPB Q8 [facility] PRN Reason: Protocol Last Admin: 10/17/17 10:49 Dose: 100 mls/hr Lactulose (Enulose) 20 gm PO DAILY PRN PRN Reason: Constipation Last Admin: 10/05/17 17:16 Dose: 20 gm Levothyroxine Sodium (Synthroid) 25 mcg PO DAILY@0630 [facility] Last Admin: 10/17/17 06:20 Dose: 25 mcg Losartan Potassium (Cozaar) 25 mg PO DAILY [facility] Last Admin: 10/17/17 09:36 Dose: 25 mg Memantine (Namenda) 10 mg PO DAILY [facility] Last Admin: 10/17/17 09:36 Dose: 10 mg Metoprolol Succinate (Toprol Xl) 50 mg PO DAILY [facility] Last Admin: 10/17/17 09:36 Dose: 50 mg Multivitamins/Minerals (Therapeutic-M Tab) 1 tab PO DAILY [facility] Last Admin: 10/17/17 09:36 Dose: 1 tab Nystatin (Nystatin Oral Susp) 5 ml PO QID [facility] Last Admin: 10/17/17 13:01 Dose: 5 ml Ranolazine (Ranexa) 500 mg PO DAILY [facility] Last Admin: 10/17/17 09:37 Dose: 500 mg Saccharomyces Boulardii (Florastor) 250 mg PO BID [facility] Last Admin: 10/17/17 09:37 Dose: 250 mg Sildenafil Citrate (Revatio) 20 mg PO BID [facility] Last Admin: 10/17/17 09:37 Dose: 20 mg - Labs Labs: 10/17/17 06:14 10/16/17 04:40 - Constitutional Appears: Well - Head Exam Head Exam: ATRAUMATIC, NORMAL INSPECTION, NORMOCEPHALIC - Eye Exam Eye Exam: EOMI, Normal appearance, PERRL Pupil Exam: NORMAL ACCOMODATION, PERRL - ENT Exam ENT Exam: Mucous Membranes Moist, Normal Exam - Neck Exam Neck Exam: Full ROM, Normal Inspection. absent: Lymphadenopathy - Respiratory Exam Respiratory Exam: Decreased Breath Sounds, Clear to Ausculation Bilateral, Rales , NORMAL BREATHING PATTERN - Cardiovascular Exam Cardiovascular Exam: REGULAR RHYTHM, +S1, +S2, Murmur - GI/Abdominal Exam GI & Abdominal Exam: Soft, Normal Bowel Sounds. absent: Tenderness - Extremities Exam Extremities Exam: Full ROM, Normal Capillary Refill, Normal Inspection. absent : Joint Swelling, Pedal Edema - Back Exam Back Exam: NORMAL INSPECTION - Neurological Exam Neurological Exam: Alert, Awake, CN II-XII Intact, Normal Gait, Oriented x3 - Psychiatric Exam Psychiatric exam: Normal Affect, Normal Mood - Skin Skin Exam: Dry, Intact, Normal Color, Warm Assessment and Plan (1) Acute exacerbation of congestive heart failure Assessment & Plan: improving cont milrinone lasix cozaar , toprol sildenafil Status: Acute (2) Sepsis Assessment & Plan: cont abx bronchial BS at right lung base Status: Acute (3) Suspected urinary tract infection Status: Acute (4) Leukocytosis Status: Acute (5) V-tach Assessment & Plan: amiodarone Status: Acute (6) CAD (coronary artery disease) Assessment & Plan: asa bb ranexa Status: Chronic (7) CHF (congestive heart failure) Status: Chronic (8) Pulmonary arterial hypertension Assessment & Plan: sildenafil Status: Chronic
--- NOTE | 2017-10-17 13:45 | CP.PCM.PN ---
Subjective - Date & Time of Evaluation Date of Evaluation: 10/15/17 Time of Evaluation: 13:00 - Subjective Subjective: feeling better lungs clear on milrinone wbc trending down Objective - Vital Signs/Intake and Output Vital Signs (last 24 hours): Temp Pulse Resp BP Pulse Ox 97.6 F 63 18 94/60 L 96 10/17/17 11:55 10/17/17 11:55 10/17/17 11:55 10/17/17 11:55 10/17/17 11:55 Intake and Output: 10/17/17 10/17/17 06:59 18:59 Intake Total 100 Balance 100 - Medications Medications: Current Medications Acetaminophen (Tylenol 325mg Tab) 650 mg PO Q6 PRN PRN Reason: Fever >100.4 F Last Admin: 10/03/17 00:07 Dose: 650 mg Acetaminophen (Tylenol 325mg Tab) 650 mg PO Q6 PRN PRN Reason: Pain, Mild (1-3) Last Admin: 10/12/17 02:51 Dose: 650 mg Albuterol Sulfate (Albuterol 0.083% Inhal Shu (2.5 Mg/3 Ml) Ud) 2.5 mg INH RQ4 PRN PRN Reason: Shortness of Breath Last Admin: 10/13/17 04:18 Dose: 2.5 mg Albuterol/Ipratropium (Duoneb 3 Mg/0.5 Mg (3 Ml) Ud) 3 ml INH RTID [facility] Last Admin: 10/17/17 08:00 Dose: 3 ml Amiodarone HCl (Cordarone) 100 mg PO DAILY [facility] Last Admin: 10/17/17 09:38 Dose: 100 mg Anastrozole (Arimidex 1 Mg Tab) 1 mg PO DAILY [facility] Last Admin: 10/16/17 09:49 Dose: 1 mg Ascorbic Acid (Vitamin C 500 Mg Tab) 500 mg PO DAILY [facility] Last Admin: 10/17/17 09:37 Dose: 500 mg Aspirin (Ecotrin) 81 mg PO DAILY [facility] Last Admin: 10/17/17 09:36 Dose: 81 mg Atorvastatin Calcium (Lipitor) 20 mg PO HS [facility] Last Admin: 10/16/17 21:47 Dose: 20 mg Bisacodyl (Dulcolax) 10 mg [place] DAILY PRN PRN Reason: Constipation Last Admin: 10/06/17 21:17 Dose: 10 mg Cholecalciferol (Vitamin D) 1,000 intlu PO DAILY [facility] Last Admin: 10/17/17 09:36 Dose: 1,000 intlu Docusate Sodium (Colace) 200 mg PO DAILY [facility] Last Admin: 10/17/17 09:37 Dose: 200 mg Enoxaparin Sodium (Lovenox) 30 mg SC DAILY [facility] PRN Reason: Protocol Last Admin: 10/17/17 09:39 Dose: 30 mg Furosemide (Lasix) 40 mg PO DAILY [facility] Last Admin: 10/17/17 09:36 Dose: 40 mg Guaifenesin (Robitussin) 100 mg PO Q6 PRN PRN Reason: Cough Last Admin: 10/17/17 09:39 Dose: 100 mg Milrinone Lactate/Dextrose (Primacor 20mg/100ml D5w) 100 mls @ 5.372 mls/hr IV .[id number] [facility] PRN Reason: Protocol Last Admin: 10/17/17 12:58 Dose: 5.372 mls/hr Vancomycin HCl 500 mg/ Sodium (Chloride) 100 mls @ 100 mls/hr IVPB Q12 [facility] PRN Reason: Protocol Last Admin: 10/17/17 10:46 Dose: 100 mls/hr Piperacillin Sod/Tazobactam (Sod 3.375 gm/ Sodium Chloride) 100 mls @ 100 mls/ hr IVPB Q8 [facility] PRN Reason: Protocol Last Admin: 10/17/17 10:49 Dose: 100 mls/hr Lactulose (Enulose) 20 gm PO DAILY PRN PRN Reason: Constipation Last Admin: 10/05/17 17:16 Dose: 20 gm Levothyroxine Sodium (Synthroid) 25 mcg PO DAILY@0630 [facility] Last Admin: 10/17/17 06:20 Dose: 25 mcg Losartan Potassium (Cozaar) 25 mg PO DAILY [facility] Last Admin: 10/17/17 09:36 Dose: 25 mg Memantine (Namenda) 10 mg PO DAILY [facility] Last Admin: 10/17/17 09:36 Dose: 10 mg Metoprolol Succinate (Toprol Xl) 50 mg PO DAILY [facility] Last Admin: 10/17/17 09:36 Dose: 50 mg Multivitamins/Minerals (Therapeutic-M Tab) 1 tab PO DAILY [facility] Last Admin: 10/17/17 09:36 Dose: 1 tab Nystatin (Nystatin Oral Susp) 5 ml PO QID [facility] Last Admin: 10/17/17 13:01 Dose: 5 ml Ranolazine (Ranexa) 500 mg PO DAILY [facility] Last Admin: 10/17/17 09:37 Dose: 500 mg Saccharomyces Boulardii (Florastor) 250 mg PO BID [facility] Last Admin: 10/17/17 09:37 Dose: 250 mg Sildenafil Citrate (Revatio) 20 mg PO BID [facility] Last Admin: 10/17/17 09:37 Dose: 20 mg - Labs Labs: 10/17/17 06:14 10/16/17 04:40 - Constitutional Appears: Well - Head Exam Head Exam: ATRAUMATIC, NORMAL INSPECTION, NORMOCEPHALIC - Eye Exam Eye Exam: EOMI, Normal appearance, PERRL Pupil Exam: NORMAL ACCOMODATION, PERRL - ENT Exam ENT Exam: Mucous Membranes Moist, Normal Exam - Neck Exam Neck Exam: Full ROM, Normal Inspection. absent: Lymphadenopathy - Respiratory Exam Respiratory Exam: Decreased Breath Sounds, Rales, NORMAL BREATHING PATTERN - Cardiovascular Exam Cardiovascular Exam: REGULAR RHYTHM, +S1, +S2, Murmur - GI/Abdominal Exam GI & Abdominal Exam: Soft, Normal Bowel Sounds. absent: Tenderness - Extremities Exam Extremities Exam: Full ROM, Normal Capillary Refill, Normal Inspection. absent : Joint Swelling, Pedal Edema - Back Exam Back Exam: NORMAL INSPECTION - Neurological Exam Neurological Exam: Alert, Awake, CN II-XII Intact, Normal Gait, Oriented x3 - Psychiatric Exam Psychiatric exam: Normal Affect, Normal Mood - Skin Skin Exam: Dry, Intact, Normal Color, Warm Assessment and Plan (1) Acute exacerbation of congestive heart failure Status: Acute (2) Sepsis Status: Acute (3) Suspected urinary tract infection Status: Acute (4) Leukocytosis Status: Acute (5) V-tach Status: Acute (6) CAD (coronary artery disease) Status: Chronic (7) CHF (congestive heart failure) Status: Chronic (8) Pulmonary arterial hypertension Status: Chronic
--- NOTE | 2017-10-17 13:48 | CP.PCM.PN ---
Subjective - Date & Time of Evaluation Date of Evaluation: 10/17/17 Time of Evaluation: 13:46 - Subjective Subjective: fatigued and lethargic CT shows pulmonary vascular congestion Objective - Vital Signs/Intake and Output Vital Signs (last 24 hours): Temp Pulse Resp BP Pulse Ox 97.6 F 63 18 94/60 L 96 10/17/17 11:55 10/17/17 11:55 10/17/17 11:55 10/17/17 11:55 10/17/17 11:55 Intake and Output: 10/17/17 10/17/17 06:59 18:59 Intake Total 100 Balance 100 - Medications Medications: Current Medications Acetaminophen (Tylenol 325mg Tab) 650 mg PO Q6 PRN PRN Reason: Fever >100.4 F Last Admin: 10/03/17 00:07 Dose: 650 mg Acetaminophen (Tylenol 325mg Tab) 650 mg PO Q6 PRN PRN Reason: Pain, Mild (1-3) Last Admin: 10/12/17 02:51 Dose: 650 mg Albuterol Sulfate (Albuterol 0.083% Inhal Shu (2.5 Mg/3 Ml) Ud) 2.5 mg INH RQ4 PRN PRN Reason: Shortness of Breath Last Admin: 10/13/17 04:18 Dose: 2.5 mg Albuterol/Ipratropium (Duoneb 3 Mg/0.5 Mg (3 Ml) Ud) 3 ml INH RTID [facility] Last Admin: 10/17/17 08:00 Dose: 3 ml Amiodarone HCl (Cordarone) 100 mg PO DAILY [facility] Last Admin: 10/17/17 09:38 Dose: 100 mg Anastrozole (Arimidex 1 Mg Tab) 1 mg PO DAILY [facility] Last Admin: 10/16/17 09:49 Dose: 1 mg Ascorbic Acid (Vitamin C 500 Mg Tab) 500 mg PO DAILY [facility] Last Admin: 10/17/17 09:37 Dose: 500 mg Aspirin (Ecotrin) 81 mg PO DAILY [facility] Last Admin: 10/17/17 09:36 Dose: 81 mg Atorvastatin Calcium (Lipitor) 20 mg PO HS [facility] Last Admin: 10/16/17 21:47 Dose: 20 mg Bisacodyl (Dulcolax) 10 mg [place] DAILY PRN PRN Reason: Constipation Last Admin: 10/06/17 21:17 Dose: 10 mg Cholecalciferol (Vitamin D) 1,000 intlu PO DAILY [facility] Last Admin: 10/17/17 09:36 Dose: 1,000 intlu Docusate Sodium (Colace) 200 mg PO DAILY [facility] Last Admin: 10/17/17 09:37 Dose: 200 mg Enoxaparin Sodium (Lovenox) 30 mg SC DAILY [facility] PRN Reason: Protocol Last Admin: 10/17/17 09:39 Dose: 30 mg Furosemide (Lasix) 40 mg PO DAILY [facility] Last Admin: 10/17/17 09:36 Dose: 40 mg Guaifenesin (Robitussin) 100 mg PO Q6 PRN PRN Reason: Cough Last Admin: 10/17/17 09:39 Dose: 100 mg Milrinone Lactate/Dextrose (Primacor 20mg/100ml D5w) 100 mls @ 5.372 mls/hr IV .[id number] [facility] PRN Reason: Protocol Last Admin: 10/17/17 12:58 Dose: 5.372 mls/hr Vancomycin HCl 500 mg/ Sodium (Chloride) 100 mls @ 100 mls/hr IVPB Q12 [facility] PRN Reason: Protocol Last Admin: 10/17/17 10:46 Dose: 100 mls/hr Piperacillin Sod/Tazobactam (Sod 3.375 gm/ Sodium Chloride) 100 mls @ 100 mls/ hr IVPB Q8 [facility] PRN Reason: Protocol Last Admin: 10/17/17 10:49 Dose: 100 mls/hr Lactulose (Enulose) 20 gm PO DAILY PRN PRN Reason: Constipation Last Admin: 10/05/17 17:16 Dose: 20 gm Levothyroxine Sodium (Synthroid) 25 mcg PO DAILY@0630 [facility] Last Admin: 10/17/17 06:20 Dose: 25 mcg Losartan Potassium (Cozaar) 25 mg PO DAILY [facility] Last Admin: 10/17/17 09:36 Dose: 25 mg Memantine (Namenda) 10 mg PO DAILY [facility] Last Admin: 10/17/17 09:36 Dose: 10 mg Metoprolol Succinate (Toprol Xl) 50 mg PO DAILY [facility] Last Admin: 10/17/17 09:36 Dose: 50 mg Multivitamins/Minerals (Therapeutic-M Tab) 1 tab PO DAILY [facility] Last Admin: 10/17/17 09:36 Dose: 1 tab Nystatin (Nystatin Oral Susp) 5 ml PO QID [facility] Last Admin: 10/17/17 13:01 Dose: 5 ml Ranolazine (Ranexa) 500 mg PO DAILY [facility] Last Admin: 10/17/17 09:37 Dose: 500 mg Saccharomyces Boulardii (Florastor) 250 mg PO BID [facility] Last Admin: 10/17/17 09:37 Dose: 250 mg Sildenafil Citrate (Revatio) 20 mg PO BID [facility] Last Admin: 10/17/17 09:37 Dose: 20 mg - Labs Labs: 10/17/17 06:14 10/16/17 04:40 - Constitutional Appears: Well - Head Exam Head Exam: ATRAUMATIC, NORMAL INSPECTION, NORMOCEPHALIC - Eye Exam Eye Exam: EOMI, Normal appearance, PERRL Pupil Exam: NORMAL ACCOMODATION, PERRL - ENT Exam ENT Exam: Mucous Membranes Moist, Normal Exam - Neck Exam Neck Exam: Full ROM, Normal Inspection. absent: Lymphadenopathy - Respiratory Exam Respiratory Exam: Decreased Breath Sounds, Rales, NORMAL BREATHING PATTERN - Cardiovascular Exam Cardiovascular Exam: REGULAR RHYTHM, +S1, +S2, Murmur - GI/Abdominal Exam GI & Abdominal Exam: Soft, Normal Bowel Sounds. absent: Tenderness - Extremities Exam Extremities Exam: Full ROM, Normal Capillary Refill, Normal Inspection. absent : Joint Swelling, Pedal Edema - Back Exam Back Exam: NORMAL INSPECTION - Neurological Exam Neurological Exam: Alert, Awake, CN II-XII Intact, Normal Gait, Oriented x3 - Psychiatric Exam Psychiatric exam: Normal Affect, Normal Mood - Skin Skin Exam: Dry, Intact, Normal Color, Warm Assessment and Plan (1) Acute exacerbation of congestive heart failure Assessment & Plan: cont milrinone cont lasix cont bb cont cozaar Status: Acute (2) Sepsis Assessment & Plan: improving wbc trending down Status: Acute (3) Suspected urinary tract infection Status: Acute (4) Leukocytosis Status: Acute (5) V-tach Status: Acute (6) CAD (coronary artery disease) Status: Chronic (7) CHF (congestive heart failure) Status: Chronic (8) Pulmonary arterial hypertension Status: Chronic
--- NOTE | 2017-10-17 17:45 | CP.PCM.PN ---
Subjective - Date & Time of Evaluation Date of Evaluation: 10/17/17 Time of Evaluation: 10:50 - Subjective Subjective: Patient seen and examined. Appeared weak although breathing without effort. Still complaining of difficulty breathing. Objective - Vital Signs/Intake and Output Vital Signs (last 24 hours): Temp Pulse Resp BP Pulse Ox 98.6 F 94 H 16 95/61 L 95 10/17/17 16:06 10/17/17 16:06 10/17/17 16:06 10/17/17 16:06 10/17/17 16:06 Intake and Output: 10/17/17 10/17/17 06:59 18:59 Intake Total 100 Balance 100 - Medications Medications: Current Medications Acetaminophen (Tylenol 325mg Tab) 650 mg PO Q6 PRN PRN Reason: Fever >100.4 F Last Admin: 10/03/17 00:07 Dose: 650 mg Acetaminophen (Tylenol 325mg Tab) 650 mg PO Q6 PRN PRN Reason: Pain, Mild (1-3) Last Admin: 10/12/17 02:51 Dose: 650 mg Albuterol Sulfate (Albuterol 0.083% Inhal Shu (2.5 Mg/3 Ml) Ud) 2.5 mg INH RQ4 PRN PRN Reason: Shortness of Breath Last Admin: 10/13/17 04:18 Dose: 2.5 mg Albuterol/Ipratropium (Duoneb 3 Mg/0.5 Mg (3 Ml) Ud) 3 ml INH RTID [facility] Last Admin: 10/17/17 13:30 Dose: 3 ml Amiodarone HCl (Cordarone) 100 mg PO DAILY [facility] Last Admin: 10/17/17 09:38 Dose: 100 mg Anastrozole (Arimidex 1 Mg Tab) 1 mg PO DAILY [facility] Last Admin: 10/17/17 16:43 Dose: 1 mg Ascorbic Acid (Vitamin C 500 Mg Tab) 500 mg PO DAILY [facility] Last Admin: 10/17/17 09:37 Dose: 500 mg Aspirin (Ecotrin) 81 mg PO DAILY [facility] Last Admin: 10/17/17 09:36 Dose: 81 mg Atorvastatin Calcium (Lipitor) 20 mg PO HS [facility] Last Admin: 10/16/17 21:47 Dose: 20 mg Bisacodyl (Dulcolax) 10 mg [place] DAILY PRN PRN Reason: Constipation Last Admin: 10/06/17 21:17 Dose: 10 mg Cholecalciferol (Vitamin D) 1,000 intlu PO DAILY [facility] Last Admin: 10/17/17 09:36 Dose: 1,000 intlu Docusate Sodium (Colace) 200 mg PO DAILY [facility] Last Admin: 10/17/17 09:37 Dose: 200 mg Enoxaparin Sodium (Lovenox) 30 mg SC DAILY [facility] PRN Reason: Protocol Last Admin: 10/17/17 09:39 Dose: 30 mg Furosemide (Lasix) 40 mg PO DAILY [facility] Last Admin: 10/17/17 09:36 Dose: 40 mg Guaifenesin (Robitussin) 100 mg PO Q6 PRN PRN Reason: Cough Last Admin: 10/17/17 09:39 Dose: 100 mg Milrinone Lactate/Dextrose (Primacor 20mg/100ml D5w) 100 mls @ 5.372 mls/hr IV .[id number] [facility] PRN Reason: Protocol Last Admin: 10/17/17 12:58 Dose: 5.372 mls/hr Vancomycin HCl 500 mg/ Sodium (Chloride) 100 mls @ 100 mls/hr IVPB Q12 [facility] PRN Reason: Protocol Last Admin: 10/17/17 10:46 Dose: 100 mls/hr Piperacillin Sod/Tazobactam (Sod 3.375 gm/ Sodium Chloride) 100 mls @ 100 mls/ hr IVPB Q8 [facility] PRN Reason: Protocol Last Admin: 10/17/17 16:38 Dose: 100 mls/hr Lactulose (Enulose) 20 gm PO DAILY PRN PRN Reason: Constipation Last Admin: 10/05/17 17:16 Dose: 20 gm Levothyroxine Sodium (Synthroid) 25 mcg PO DAILY@0630 [facility] Last Admin: 10/17/17 06:20 Dose: 25 mcg Losartan Potassium (Cozaar) 25 mg PO DAILY [facility] Last Admin: 10/17/17 09:36 Dose: 25 mg Memantine (Namenda) 10 mg PO DAILY [facility] Last Admin: 10/17/17 09:36 Dose: 10 mg Metoprolol Succinate (Toprol Xl) 50 mg PO DAILY [facility] Last Admin: 10/17/17 09:36 Dose: 50 mg Multivitamins/Minerals (Therapeutic-M Tab) 1 tab PO DAILY [facility] Last Admin: 10/17/17 09:36 Dose: 1 tab Nystatin (Nystatin Oral Susp) 5 ml PO QID [facility] Last Admin: 10/17/17 16:37 Dose: 5 ml Ranolazine (Ranexa) 500 mg PO DAILY [facility] Last Admin: 10/17/17 09:37 Dose: 500 mg Saccharomyces Boulardii (Florastor) 250 mg PO BID [facility] Last Admin: 10/17/17 16:37 Dose: 250 mg Sildenafil Citrate (Revatio) 20 mg PO BID [facility] Last Admin: 10/17/17 16:38 Dose: 20 mg - Labs Labs: 10/17/17 06:14 10/16/17 04:40 - Constitutional Appears: No Acute Distress - Head Exam Head Exam: ATRAUMATIC - Eye Exam Eye Exam: absent: Scleral icterus - ENT Exam ENT Exam: Mucous Membranes Moist - Neck Exam Neck Exam: absent: Meningismus - Respiratory Exam Respiratory Exam: Decreased Breath Sounds, Rales (on both bases). absent: Rhonchi, Wheezes, Respiratory Distress - Cardiovascular Exam Cardiovascular Exam: REGULAR RHYTHM, +S1, +S2 - GI/Abdominal Exam GI & Abdominal Exam: Soft. absent: Tenderness - Rectal Exam Rectal Exam: Deferred - Extremities Exam Extremities Exam: absent: Pedal Edema - Back Exam Back Exam: absent: tenderness - Neurological Exam Neurological Exam: Alert, Oriented x3 - Psychiatric Exam Psychiatric exam: Normal Affect - Skin Skin Exam: Dry, Intact Assessment and Plan - Assessment and Plan (Free Text) Assessment: 81 yo female with history of Cardiomyopathy with AICD, Pulmonary HTN, COPD, HTN , HLD, Hypothyroidism, Osteoporosis, RA and CKD stage III admitted on 10/02/17 with Sepsis secondary to UTI. 1. Sepsis Klebsiella bacteremia received 5 days of IV Rocephin after 5 days of IV Meropenem on Zosyn and Vanco Vanco trough: 9.7 (will continue with same dose as trough was almost 10) WBC elevated but slowly trending down afebrile Dr West on ID consult 2. UTI resolved 3. COPD exacerbation continue Duoneb prn 4. Cardiomyopathy CXray showed mild pulmonary congestion [place]: [place] [id number] Da Silva on cardiology consult on Milrinone drip Lasix 40mg PO daily Troponin: negative for ischemia 5. Acute on CKD stage III renal function within normal range
[2017-10-18] MEDS: Piperacillin/Tazobact 3.375 GM in Sodium Chloride 0.9% 100 ML IVPB SCH ×3 (00:39→17:02)
[2017-10-18] MEDS: Levothyroxine 25 MCG TAB PO SCH (05:49)
[2017-10-18] MEDS: Milrinone 20mg/100ml D5W 100 ML IV SCH (06:30)
[2017-10-18] MEDS: Albuterol-Ipratrop 3 mg / 0.5 (3 ml) UD INH SCH ×3 (07:51→19:46)
[2017-10-18] MEDS: Enoxaparin 30 mg Syringe SC SCH (08:49)
[2017-10-18] MEDS: Cholecalciferol 1,000 INTLU TAB PO SCH (08:50)
[2017-10-18] MEDS: Nystatin 100,000 Units/ml Oral Susp 5 ml UD PO SCH ×4 (08:50→22:00)
[2017-10-18] MEDS: Saccharomyces Boulardi 250 mg Cap PO SCH ×2 (08:51→17:02)
[2017-10-18] MEDS: Ranolazine 500 mg Extended Release Tablets PO SCH (08:53)
[2017-10-18] MEDS: Multivitamin With Minerals Tab PO SCH (08:53)
[2017-10-18] MEDS: Metoprolol Succinate 50 mg XL Tab PO SCH (08:55)
[2017-10-18] MEDS: Sildenafil 20 MG TAB PO SCH ×2 (08:56→17:02)
--- NOTE | 2017-10-18 09:44 | CP.PCM.PN ---
<Terrie Schroeder - Last Filed: 10/18/17 12:18> Subjective - Subjective Subjective: The patient was seen and examined on rounds with the residents this morning in telemetry. Pt is an 81 yo F with a hx of cardiomyopathy, COPD exacerbation, Pulm HTN, CKD, admitted on 10/02/17 due to klebsiella sepsis from UTI. Patient is doing well this morning she slept throughout the night and feels well. She states she has urinated and had a bowel movement. Vital signs remained stable BP low 95/56, she continues to be afebrile. Her O2 Sat is 95. This morning the patients K 3.3, Renal function stable, WBC count trending down now 14,000. On examination patient still has hoarseness of the voice, B/L dependent LE edema getting better, Patient is coughing but not expectorating, Rhonchi heard, negative for B/L wheezing, negative for Pneumonia, no bronchial breathing or egophony appreciated, diminishes breath sounds B/L and no dullness to chest percussion anteriorly. Continue Zosyn and Vanc, follow Vanc trough (9.7), she continues to receive Milrinone continuous infusion. Monitor leukocytosis and renal function. Objective - Vital Signs/Intake and Output Vital Signs (last 24 hours): Temp Pulse Resp BP Pulse Ox 97.4 F L 111 H 20 102/68 98 10/18/17 08:00 10/18/17 08:50 10/18/17 08:00 10/18/17 08:50 10/18/17 08:00 Intake and Output: 10/18/17 10/18/17 06:59 18:59 Intake Total 100 Balance 100 - Medications Medications: Current Medications Acetaminophen (Tylenol 325mg Tab) 650 mg PO Q6 PRN PRN Reason: Fever >100.4 F Last Admin: 10/03/17 00:07 Dose: 650 mg Acetaminophen (Tylenol 325mg Tab) 650 mg PO Q6 PRN PRN Reason: Pain, Mild (1-3) Last Admin: 10/12/17 02:51 Dose: 650 mg Albuterol Sulfate (Albuterol 0.083% Inhal Shu (2.5 Mg/3 Ml) Ud) 2.5 mg INH RQ4 PRN PRN Reason: Shortness of Breath Last Admin: 10/13/17 04:18 Dose: 2.5 mg Albuterol/Ipratropium (Duoneb 3 Mg/0.5 Mg (3 Ml) Ud) 3 ml INH RTID [facility] Last Admin: 10/18/17 07:51 Dose: 3 ml Amiodarone HCl (Cordarone) 100 mg PO DAILY [facility] Last Admin: 10/18/17 08:50 Dose: 100 mg Anastrozole (Arimidex 1 Mg Tab) 1 mg PO DAILY [facility] Last Admin: 10/18/17 08:49 Dose: 1 mg Ascorbic Acid (Vitamin C 500 Mg Tab) 500 mg PO DAILY [facility] Last Admin: 10/18/17 08:50 Dose: 500 mg Aspirin (Ecotrin) 81 mg PO DAILY [facility] Last Admin: 10/18/17 08:50 Dose: 81 mg Atorvastatin Calcium (Lipitor) 20 mg PO HS [facility] Last Admin: 10/17/17 21:29 Dose: 20 mg Bisacodyl (Dulcolax) 10 mg [place] DAILY PRN PRN Reason: Constipation Last Admin: 10/06/17 21:17 Dose: 10 mg Cholecalciferol (Vitamin D) 1,000 intlu PO DAILY [facility] Last Admin: 10/18/17 08:50 Dose: 1,000 intlu Docusate Sodium (Colace) 200 mg PO DAILY [facility] Last Admin: 10/17/17 09:37 Dose: 200 mg Enoxaparin Sodium (Lovenox) 30 mg SC DAILY [facility] PRN Reason: Protocol Last Admin: 10/18/17 08:49 Dose: 30 mg Furosemide (Lasix) 40 mg PO DAILY [facility] Last Admin: 10/18/17 08:56 Dose: Not Given Guaifenesin (Mucinex La) 600 mg PO Q12 [facility] Milrinone Lactate/Dextrose (Primacor 20mg/100ml D5w) 100 mls @ 5.372 mls/hr IV .[id number] [facility] PRN Reason: Protocol Last Admin: 10/18/17 06:30 Dose: 5.372 mls/hr Vancomycin HCl 500 mg/ Sodium (Chloride) 100 mls @ 100 mls/hr IVPB Q12 [facility] PRN Reason: Protocol Last Admin: 10/18/17 08:54 Dose: 100 mls/hr Piperacillin Sod/Tazobactam (Sod 3.375 gm/ Sodium Chloride) 100 mls @ 100 mls/ hr IVPB Q8 [facility] PRN Reason: Protocol Last Admin: 10/18/17 08:55 Dose: 100 mls/hr Lactulose (Enulose) 20 gm PO DAILY PRN PRN Reason: Constipation Last Admin: 10/05/17 17:16 Dose: 20 gm Levothyroxine Sodium (Synthroid) 25 mcg PO DAILY@0630 [facility] Last Admin: 10/18/17 05:49 Dose: 25 mcg Losartan Potassium (Cozaar) 25 mg PO DAILY [facility] Last Admin: 10/18/17 08:56 Dose: Not Given Memantine (Namenda) 10 mg PO DAILY [facility] Last Admin: 10/18/17 08:52 Dose: 10 mg Metoprolol Succinate (Toprol Xl) 50 mg PO DAILY [facility] Last Admin: 10/18/17 08:55 Dose: Not Given Multivitamins/Minerals (Therapeutic-M Tab) 1 tab PO DAILY [facility] Last Admin: 10/18/17 08:53 Dose: 1 tab Nystatin (Nystatin Oral Susp) 5 ml PO QID [facility] Last Admin: 10/18/17 08:50 Dose: 5 ml Saccharomyces Boulardii (Florastor) 250 mg PO BID [facility] Last Admin: 10/18/17 08:51 Dose: 250 mg Sildenafil Citrate (Revatio) 20 mg PO BID [facility] Last Admin: 10/18/17 08:56 Dose: Not Given - Labs Labs: 10/17/17 06:14 10/16/17 04:40 <Filiberto Gomez - Last Filed: 10/18/17 17:19> Subjective - Date & Time of Evaluation Date of Evaluation: 10/18/17 Time of Evaluation: 09:44 - Subjective Subjective: The patient was seen and examined together with the residents on rounds in the morning. Her physical findings as well as laboratory data were reviewed and discussed. Recent chest x-ray was also reviewed. The plan of care was formulated together with the residents. I am in agreement with the resident's entry into the EMR. Objective - Vital Signs/Intake and Output Vital Signs (last 24 hours): Temp Pulse Resp BP Pulse Ox 97.4 F L 111 H 20 102/68 98 10/18/17 08:00 10/18/17 08:50 10/18/17 08:00 10/18/17 08:50 10/18/17 08:00 Intake and Output: 10/17/17 10/18/17 23:59 11:59 Intake Total 100 100 Balance 100 100 - Medications Medications: Current Medications Acetaminophen (Tylenol 325mg Tab) 650 mg PO Q6 PRN PRN Reason: Fever >100.4 F Last Admin: 10/03/17 00:07 Dose: 650 mg Acetaminophen (Tylenol 325mg Tab) 650 mg PO Q6 PRN PRN Reason: Pain, Mild (1-3) Last Admin: 10/12/17 02:51 Dose: 650 mg Albuterol Sulfate (Albuterol 0.083% Inhal Shu (2.5 Mg/3 Ml) Ud) 2.5 mg INH RQ4 PRN PRN Reason: Shortness of Breath Last Admin: 10/13/17 04:18 Dose: 2.5 mg Albuterol/Ipratropium (Duoneb 3 Mg/0.5 Mg (3 Ml) Ud) 3 ml INH RTID [facility] Last Admin: 10/18/17 07:51 Dose: 3 ml Amiodarone HCl (Cordarone) 100 mg PO DAILY [facility] Last Admin: 10/18/17 08:50 Dose: 100 mg Anastrozole (Arimidex 1 Mg Tab) 1 mg PO DAILY [facility] Last Admin: 10/18/17 08:49 Dose: 1 mg Ascorbic Acid (Vitamin C 500 Mg Tab) 500 mg PO DAILY [facility] Last Admin: 10/18/17 08:50 Dose: 500 mg Aspirin (Ecotrin) 81 mg PO DAILY [facility] Last Admin: 10/18/17 08:50 Dose: 81 mg Atorvastatin Calcium (Lipitor) 20 mg PO HS [facility] Last Admin: 10/17/17 21:29 Dose: 20 mg Bisacodyl (Dulcolax) 10 mg AL DAILY PRN PRN Reason: Constipation Last Admin: 10/06/17 21:17 Dose: 10 mg Cholecalciferol (Vitamin D) 1,000 intlu PO DAILY [facility] Last Admin: 10/18/17 08:50 Dose: 1,000 intlu Docusate Sodium (Colace) 200 mg PO DAILY [facility] Last Admin: 10/17/17 09:37 Dose: 200 mg Enoxaparin Sodium (Lovenox) 30 mg SC DAILY [facility] PRN Reason: Protocol Last Admin: 10/18/17 08:49 Dose: 30 mg Furosemide (Lasix) 40 mg PO DAILY [facility] Last Admin: 10/18/17 08:56 Dose: Not Given Guaifenesin (Mucinex La) 600 mg PO Q12 [facility] Milrinone Lactate/Dextrose (Primacor 20mg/100ml D5w) 100 mls @ 5.372 mls/hr IV .[id number] [facility] PRN Reason: Protocol Last Admin: 10/18/17 06:30 Dose: 5.372 mls/hr Vancomycin HCl 500 mg/ Sodium (Chloride) 100 mls @ 100 mls/hr IVPB Q12 [facility] PRN Reason: Protocol Last Admin: 10/18/17 08:54 Dose: 100 mls/hr Piperacillin Sod/Tazobactam (Sod 3.375 gm/ Sodium Chloride) 100 mls @ 100 mls/ hr IVPB Q8 [facility] PRN Reason: Protocol Last Admin: 10/18/17 08:55 Dose: 100 mls/hr Lactulose (Enulose) 20 gm PO DAILY PRN PRN Reason: Constipation Last Admin: 10/05/17 17:16 Dose: 20 gm Levothyroxine Sodium (Synthroid) 25 mcg PO DAILY@0630 [facility] Last Admin: 10/18/17 05:49 Dose: 25 mcg Losartan Potassium (Cozaar) 25 mg PO DAILY [facility] Last Admin: 10/18/17 08:56 Dose: Not Given Memantine (Namenda) 10 mg PO DAILY [facility] Last Admin: 10/18/17 08:52 Dose: 10 mg Metoprolol Succinate (Toprol Xl) 50 mg PO DAILY [facility] Last Admin: 10/18/17 08:55 Dose: Not Given Multivitamins/Minerals (Therapeutic-M Tab) 1 tab PO DAILY [facility] Last Admin: 10/18/17 08:53 Dose: 1 tab Nystatin (Nystatin Oral Susp) 5 ml PO QID [facility] Last Admin: 10/18/17 08:50 Dose: 5 ml Saccharomyces Boulardii (Florastor) 250 mg PO BID [facility] Last Admin: 10/18/17 08:51 Dose: 250 mg Sildenafil Citrate (Revatio) 20 mg PO BID [facility] Last Admin: 10/18/17 08:56 Dose: Not Given - Labs Labs: 10/17/17 06:14 10/16/17 04:40 Assessment and Plan (1) Abdominal pain Status: Acute (2) Sepsis Status: Acute (3) Pneumonia Status: Acute (4) Hydroureteronephrosis Status: Acute (5) Suspected urinary tract infection Status: Acute (6) Chronic constipation Status: Chronic
--- NOTE | 2017-10-18 10:58 | CP.PCM.PN ---
Subjective - Date & Time of Evaluation Date of Evaluation: 10/18/17 Time of Evaluation: 10:45 - Subjective Subjective: Patient seen and examined. Still feeling SOB although appeared breathing well. Objective - Vital Signs/Intake and Output Vital Signs (last 24 hours): Temp Pulse Resp BP Pulse Ox 97.4 F L 111 H 20 102/68 98 10/18/17 08:00 10/18/17 08:50 10/18/17 08:00 10/18/17 08:50 10/18/17 08:00 Intake and Output: 10/18/17 10/18/17 06:59 18:59 Intake Total 100 Balance 100 - Medications Medications: Current Medications Acetaminophen (Tylenol 325mg Tab) 650 mg PO Q6 PRN PRN Reason: Fever >100.4 F Last Admin: 10/03/17 00:07 Dose: 650 mg Acetaminophen (Tylenol 325mg Tab) 650 mg PO Q6 PRN PRN Reason: Pain, Mild (1-3) Last Admin: 10/12/17 02:51 Dose: 650 mg Albuterol Sulfate (Albuterol 0.083% Inhal Shu (2.5 Mg/3 Ml) Ud) 2.5 mg INH RQ4 PRN PRN Reason: Shortness of Breath Last Admin: 10/13/17 04:18 Dose: 2.5 mg Albuterol/Ipratropium (Duoneb 3 Mg/0.5 Mg (3 Ml) Ud) 3 ml INH RTID [facility] Last Admin: 10/18/17 07:51 Dose: 3 ml Amiodarone HCl (Cordarone) 100 mg PO DAILY [facility] Last Admin: 10/18/17 08:50 Dose: 100 mg Anastrozole (Arimidex 1 Mg Tab) 1 mg PO DAILY [facility] Last Admin: 10/18/17 08:49 Dose: 1 mg Ascorbic Acid (Vitamin C 500 Mg Tab) 500 mg PO DAILY [facility] Last Admin: 10/18/17 08:50 Dose: 500 mg Aspirin (Ecotrin) 81 mg PO DAILY [facility] Last Admin: 10/18/17 08:50 Dose: 81 mg Atorvastatin Calcium (Lipitor) 20 mg PO HS [facility] Last Admin: 10/17/17 21:29 Dose: 20 mg Bisacodyl (Dulcolax) 10 mg [place] DAILY PRN PRN Reason: Constipation Last Admin: 10/06/17 21:17 Dose: 10 mg Cholecalciferol (Vitamin D) 1,000 intlu PO DAILY [facility] Last Admin: 10/18/17 08:50 Dose: 1,000 intlu Docusate Sodium (Colace) 200 mg PO DAILY [facility] Last Admin: 10/17/17 09:37 Dose: 200 mg Enoxaparin Sodium (Lovenox) 30 mg SC DAILY [facility] PRN Reason: Protocol Last Admin: 10/18/17 08:49 Dose: 30 mg Furosemide (Lasix) 40 mg PO DAILY [facility] Last Admin: 10/18/17 08:56 Dose: Not Given Guaifenesin (Mucinex La) 600 mg PO Q12 [facility] Milrinone Lactate/Dextrose (Primacor 20mg/100ml D5w) 100 mls @ 5.372 mls/hr IV .[id number] [facility] PRN Reason: Protocol Last Admin: 10/18/17 06:30 Dose: 5.372 mls/hr Vancomycin HCl 500 mg/ Sodium (Chloride) 100 mls @ 100 mls/hr IVPB Q12 [facility] PRN Reason: Protocol Last Admin: 10/18/17 08:54 Dose: 100 mls/hr Piperacillin Sod/Tazobactam (Sod 3.375 gm/ Sodium Chloride) 100 mls @ 100 mls/ hr IVPB Q8 [facility] PRN Reason: Protocol Last Admin: 10/18/17 08:55 Dose: 100 mls/hr Lactulose (Enulose) 20 gm PO DAILY PRN PRN Reason: Constipation Last Admin: 10/05/17 17:16 Dose: 20 gm Levothyroxine Sodium (Synthroid) 25 mcg PO DAILY@0630 [facility] Last Admin: 10/18/17 05:49 Dose: 25 mcg Losartan Potassium (Cozaar) 25 mg PO DAILY [facility] Last Admin: 10/18/17 08:56 Dose: Not Given Memantine (Namenda) 10 mg PO DAILY [facility] Last Admin: 10/18/17 08:52 Dose: 10 mg Metoprolol Succinate (Toprol Xl) 50 mg PO DAILY [facility] Last Admin: 10/18/17 08:55 Dose: Not Given Multivitamins/Minerals (Therapeutic-M Tab) 1 tab PO DAILY [facility] Last Admin: 10/18/17 08:53 Dose: 1 tab Nystatin (Nystatin Oral Susp) 5 ml PO QID [facility] Last Admin: 10/18/17 08:50 Dose: 5 ml Saccharomyces Boulardii (Florastor) 250 mg PO BID [facility] Last Admin: 10/18/17 08:51 Dose: 250 mg Sildenafil Citrate (Revatio) 20 mg PO BID [facility] Last Admin: 10/18/17 08:56 Dose: Not Given - Labs Labs: 10/17/17 06:14 10/16/17 04:40 - Constitutional Appears: No Acute Distress - Head Exam Head Exam: ATRAUMATIC - Eye Exam Eye Exam: absent: Scleral icterus - ENT Exam ENT Exam: Mucous Membranes Moist - Neck Exam Neck Exam: absent: Meningismus - Respiratory Exam Respiratory Exam: Rales (on both bases). absent: Respiratory Distress - Cardiovascular Exam Cardiovascular Exam: Tachycardia - GI/Abdominal Exam GI & Abdominal Exam: Soft. absent: Tenderness - Rectal Exam Rectal Exam: Deferred - Extremities Exam Extremities Exam: absent: Pedal Edema - Neurological Exam Neurological Exam: Alert, Oriented x3 - Psychiatric Exam Psychiatric exam: Normal Affect - Skin Skin Exam: Dry, Intact Assessment and Plan - Assessment and Plan (Free Text) Assessment: 81 yo female with history of Cardiomyopathy with AICD, Pulmonary HTN, COPD, HTN , HLD, Hypothyroidism, Osteoporosis, RA and CKD stage III admitted on 10/02/17 with Sepsis secondary to UTI. 1. Sepsis Klebsiella bacteremia received 5 days of IV Rocephin after 5 days of IV Meropenem on Zosyn and Vanco Vanco trough: 9.7 WBC elevated but slowly trending down afebrile Dr West on ID consult 2. UTI resolved 3. COPD exacerbation continue Duoneb prn 4. Cardiomyopathy CXray: mild pulmonary congestion ProBNP: [id number] Dr Da Silva on cardiology consult on Milrinone drip Lasix 40mg PO daily 5. Acute on CKD stage III renal function within normal range
--- NOTE | 2017-10-18 11:51 | CP.PCM.PN ---
Subjective - Date & Time of Evaluation Date of Evaluation: 10/18/17 Time of Evaluation: 08:00 - Subjective Subjective: weak and bedridden appears depressed may benefit from TCU vanco level ordered Objective - Vital Signs/Intake and Output Vital Signs (last 24 hours): Temp Pulse Resp BP Pulse Ox 97.4 F L 111 H 20 102/68 98 10/18/17 08:00 10/18/17 08:50 10/18/17 08:00 10/18/17 08:50 10/18/17 08:00 Intake and Output: 10/18/17 10/18/17 06:59 18:59 Intake Total 100 Balance 100 - Medications Medications: Current Medications Acetaminophen (Tylenol 325mg Tab) 650 mg PO Q6 PRN PRN Reason: Fever >100.4 F Last Admin: 10/03/17 00:07 Dose: 650 mg Acetaminophen (Tylenol 325mg Tab) 650 mg PO Q6 PRN PRN Reason: Pain, Mild (1-3) Last Admin: 10/12/17 02:51 Dose: 650 mg Albuterol Sulfate (Albuterol 0.083% Inhal Shu (2.5 Mg/3 Ml) Ud) 2.5 mg INH RQ4 PRN PRN Reason: Shortness of Breath Last Admin: 10/13/17 04:18 Dose: 2.5 mg Albuterol/Ipratropium (Duoneb 3 Mg/0.5 Mg (3 Ml) Ud) 3 ml INH RTID [facility] Last Admin: 10/18/17 07:51 Dose: 3 ml Amiodarone HCl (Cordarone) 100 mg PO DAILY [facility] Last Admin: 10/18/17 08:50 Dose: 100 mg Anastrozole (Arimidex 1 Mg Tab) 1 mg PO DAILY [facility] Last Admin: 10/18/17 08:49 Dose: 1 mg Ascorbic Acid (Vitamin C 500 Mg Tab) 500 mg PO DAILY [facility] Last Admin: 10/18/17 08:50 Dose: 500 mg Aspirin (Ecotrin) 81 mg PO DAILY [facility] Last Admin: 10/18/17 08:50 Dose: 81 mg Atorvastatin Calcium (Lipitor) 20 mg PO HS [facility] Last Admin: 10/17/17 21:29 Dose: 20 mg Bisacodyl (Dulcolax) 10 mg [place] DAILY PRN PRN Reason: Constipation Last Admin: 10/06/17 21:17 Dose: 10 mg Cholecalciferol (Vitamin D) 1,000 intlu PO DAILY [facility] Last Admin: 10/18/17 08:50 Dose: 1,000 intlu Docusate Sodium (Colace) 200 mg PO DAILY [facility] Last Admin: 10/17/17 09:37 Dose: 200 mg Enoxaparin Sodium (Lovenox) 30 mg SC DAILY [facility] PRN Reason: Protocol Last Admin: 10/18/17 08:49 Dose: 30 mg Furosemide (Lasix) 40 mg PO DAILY [facility] Last Admin: 10/18/17 08:56 Dose: Not Given Guaifenesin (Mucinex La) 600 mg PO Q12 [facility] Milrinone Lactate/Dextrose (Primacor 20mg/100ml D5w) 100 mls @ 5.372 mls/hr IV .[id number] [facility] PRN Reason: Protocol Last Admin: 10/18/17 06:30 Dose: 5.372 mls/hr Vancomycin HCl 500 mg/ Sodium (Chloride) 100 mls @ 100 mls/hr IVPB Q12 [facility] PRN Reason: Protocol Last Admin: 10/18/17 08:54 Dose: 100 mls/hr Piperacillin Sod/Tazobactam (Sod 3.375 gm/ Sodium Chloride) 100 mls @ 100 mls/ hr IVPB Q8 [facility] PRN Reason: Protocol Last Admin: 10/18/17 08:55 Dose: 100 mls/hr Lactulose (Enulose) 20 gm PO DAILY PRN PRN Reason: Constipation Last Admin: 10/05/17 17:16 Dose: 20 gm Levothyroxine Sodium (Synthroid) 25 mcg PO DAILY@0630 [facility] Last Admin: 10/18/17 05:49 Dose: 25 mcg Losartan Potassium (Cozaar) 25 mg PO DAILY [facility] Last Admin: 10/18/17 08:56 Dose: Not Given Memantine (Namenda) 10 mg PO DAILY [facility] Last Admin: 10/18/17 08:52 Dose: 10 mg Metoprolol Succinate (Toprol Xl) 50 mg PO DAILY [facility] Last Admin: 10/18/17 08:55 Dose: Not Given Multivitamins/Minerals (Therapeutic-M Tab) 1 tab PO DAILY [facility] Last Admin: 10/18/17 08:53 Dose: 1 tab Nystatin (Nystatin Oral Susp) 5 ml PO QID [facility] Last Admin: 10/18/17 08:50 Dose: 5 ml Saccharomyces Boulardii (Florastor) 250 mg PO BID [facility] Last Admin: 10/18/17 08:51 Dose: 250 mg Sildenafil Citrate (Revatio) 20 mg PO BID [facility] Last Admin: 10/18/17 08:56 Dose: Not Given - Labs Labs: 10/17/17 06:14 10/16/17 04:40 Assessment and Plan (1) Abdominal pain Status: Acute (2) Sepsis Status: Acute (3) GINNY (acute kidney injury) Status: Acute (4) Acute exacerbation of congestive heart failure Status: Acute (5) Bronchospasm with bronchitis, acute Status: Acute (6) Chest pain Status: Acute
[2017-10-18] MEDS ORDERED: Lidocaine Hydrochloride 5 ML INJ ONE (13:00)
--- NOTE | 2017-10-18 13:18 | PCM.SURG1 ---
Surgeon's Initial Post Op Note - Surgeon's Notes Surgeon: Dawood Melgar MD [employer] Grade Three: NONE Type of Anesthesia: Local Pre-Operative Diagnosis: Poor venous access Operative Findings: US showed a patent right basilic veiN. Post-Operative Diagnosis: Poor venous access Operation Performed: Dual lumen picc right basilic vein, 35 cm. Tip is in the SVC. Specimen/Specimens Removed: NONE Estimated Blood Loss: EBL {In ML}: 2 Blood Products Given: N/A Drains Used: No Drains Post-Op Condition: Fair Date of Surgery/Procedure: 10/18/17 Time of Surgery/Procedure: 13:10
[2017-10-18] MEDS: guaiFENesin 600 mg ER Tab PO SCH ×2 (15:08→21:37)
--- NOTE | 2017-10-18 18:12 | CP.PCM.PN ---
Subjective - Date & Time of Evaluation Date of Evaluation: 10/18/17 Time of Evaluation: 18:11 - Subjective Subjective: SOB improving Objective - Vital Signs/Intake and Output Vital Signs (last 24 hours): Temp Pulse Resp BP Pulse Ox 98.3 F 87 20 116/66 99 10/18/17 15:35 10/18/17 17:00 10/18/17 15:35 10/18/17 17:00 10/18/17 15:35 Intake and Output: 10/18/17 10/18/17 06:59 18:59 Intake Total 100 200 Balance 100 200 - Medications Medications: Current Medications Acetaminophen (Tylenol 325mg Tab) 650 mg PO Q6 PRN PRN Reason: Fever >100.4 F Last Admin: 10/03/17 00:07 Dose: 650 mg Acetaminophen (Tylenol 325mg Tab) 650 mg PO Q6 PRN PRN Reason: Pain, Mild (1-3) Last Admin: 10/12/17 02:51 Dose: 650 mg Albuterol Sulfate (Albuterol 0.083% Inhal Shu (2.5 Mg/3 Ml) Ud) 2.5 mg INH RQ4 PRN PRN Reason: Shortness of Breath Last Admin: 10/13/17 04:18 Dose: 2.5 mg Albuterol/Ipratropium (Duoneb 3 Mg/0.5 Mg (3 Ml) Ud) 3 ml INH RTID [facility] Last Admin: 10/18/17 13:55 Dose: Not Given Amiodarone HCl (Cordarone) 100 mg PO DAILY [facility] Last Admin: 10/18/17 08:50 Dose: 100 mg Anastrozole (Arimidex 1 Mg Tab) 1 mg PO DAILY [facility] Last Admin: 10/18/17 08:49 Dose: 1 mg Ascorbic Acid (Vitamin C 500 Mg Tab) 500 mg PO DAILY [facility] Last Admin: 10/18/17 08:50 Dose: 500 mg Aspirin (Ecotrin) 81 mg PO DAILY [facility] Last Admin: 10/18/17 08:50 Dose: 81 mg Atorvastatin Calcium (Lipitor) 20 mg PO HS [facility] Last Admin: 10/17/17 21:29 Dose: 20 mg Bisacodyl (Dulcolax) 10 mg [place] DAILY PRN PRN Reason: Constipation Last Admin: 10/06/17 21:17 Dose: 10 mg Cholecalciferol (Vitamin D) 1,000 intlu PO DAILY [facility] Last Admin: 10/18/17 08:50 Dose: 1,000 intlu Docusate Sodium (Colace) 200 mg PO DAILY [facility] Last Admin: 10/18/17 15:12 Dose: Not Given Enoxaparin Sodium (Lovenox) 30 mg SC DAILY [facility] PRN Reason: Protocol Last Admin: 10/18/17 08:49 Dose: 30 mg Furosemide (Lasix) 40 mg PO DAILY [facility] Last Admin: 10/18/17 14:58 Dose: 40 mg Guaifenesin (Mucinex La) 600 mg PO Q12 [facility] Last Admin: 10/18/17 15:08 Dose: 600 mg Milrinone Lactate/Dextrose (Primacor 20mg/100ml D5w) 100 mls @ 5.372 mls/hr IV .[id number] [facility] PRN Reason: Protocol Last Admin: 10/18/17 06:30 Dose: 5.372 mls/hr Vancomycin HCl 500 mg/ Sodium (Chloride) 100 mls @ 100 mls/hr IVPB Q12 [facility] PRN Reason: Protocol Last Admin: 10/18/17 08:54 Dose: 100 mls/hr Piperacillin Sod/Tazobactam (Sod 3.375 gm/ Sodium Chloride) 100 mls @ 100 mls/ hr IVPB Q8 [facility] PRN Reason: Protocol Last Admin: 10/18/17 17:02 Dose: 100 mls/hr Lactulose (Enulose) 20 gm PO DAILY PRN PRN Reason: Constipation Last Admin: 10/05/17 17:16 Dose: 20 gm Levothyroxine Sodium (Synthroid) 25 mcg PO DAILY@0630 [facility] Last Admin: 10/18/17 05:49 Dose: 25 mcg Losartan Potassium (Cozaar) 25 mg PO DAILY [facility] Last Admin: 10/18/17 08:56 Dose: Not Given Memantine (Namenda) 10 mg PO DAILY [facility] Last Admin: 10/18/17 08:52 Dose: 10 mg Metoprolol Succinate (Toprol Xl) 50 mg PO DAILY [facility] Last Admin: 10/18/17 08:55 Dose: Not Given Multivitamins/Minerals (Therapeutic-M Tab) 1 tab PO DAILY [facility] Last Admin: 10/18/17 08:53 Dose: 1 tab Nystatin (Nystatin Oral Susp) 5 ml PO QID [facility] Last Admin: 10/18/17 17:02 Dose: 5 ml Saccharomyces Boulardii (Florastor) 250 mg PO BID [facility] Last Admin: 10/18/17 17:02 Dose: 250 mg Sildenafil Citrate (Revatio) 20 mg PO BID [facility] Last Admin: 10/18/17 17:02 Dose: 20 mg - Labs Labs: 10/17/17 06:14 10/16/17 04:40 - Constitutional Appears: Well - Head Exam Head Exam: ATRAUMATIC, NORMAL INSPECTION, NORMOCEPHALIC - Eye Exam Eye Exam: EOMI, Normal appearance, PERRL Pupil Exam: NORMAL ACCOMODATION, PERRL - ENT Exam ENT Exam: Mucous Membranes Moist, Normal Exam - Neck Exam Neck Exam: Full ROM, Normal Inspection. absent: Lymphadenopathy - Respiratory Exam Respiratory Exam: Clear to Ausculation Bilateral, Rales, NORMAL BREATHING PATTERN - Cardiovascular Exam Cardiovascular Exam: REGULAR RHYTHM, +S1, +S2, Murmur - GI/Abdominal Exam GI & Abdominal Exam: Soft, Normal Bowel Sounds. absent: Tenderness - Extremities Exam Extremities Exam: Full ROM, Normal Capillary Refill, Normal Inspection. absent : Joint Swelling, Pedal Edema - Back Exam Back Exam: NORMAL INSPECTION - Neurological Exam Neurological Exam: Alert, Awake, CN II-XII Intact, Normal Gait, Oriented x3 - Psychiatric Exam Psychiatric exam: Normal Affect, Normal Mood - Skin Skin Exam: Dry, Intact, Normal Color, Warm Assessment and Plan (1) Acute exacerbation of congestive heart failure Assessment & Plan: cont with lasix cont bb, arb cont sildenafil wean off milrinone x 24 hours Status: Acute (2) Sepsis Assessment & Plan: improving cont abx Status: Acute (3) Suspected urinary tract infection Status: Acute (4) Leukocytosis Status: Acute (5) V-tach Assessment & Plan: amiodarone Status: Acute (6) CAD (coronary artery disease) Status: Chronic (7) CHF (congestive heart failure) Status: Chronic (8) Pulmonary arterial hypertension Status: Chronic
[2017-10-19] MEDS: Piperacillin/Tazobact 3.375 GM in Sodium Chloride 0.9% 100 ML IVPB SCH ×3 (00:18→17:24)
[2017-10-19] MEDS: Milrinone 20mg/100ml D5W 100 ML IV SCH (00:41)
[2017-10-19 05:54] LABS: BASO # 0.1 K/uL (0.0-0.2); BASO % 0.9 % (0.0-2.0); EOS # 0.2 K/uL (0.0-0.7); EOS % 1.2 % (0.0-4.0); HEMOGLOBIN 9.5 g/dL (12.0-16.0); LYMPH # 1.7 K/uL (1.0-4.3); LYMPH % 13.2 % (20.0-40.0); MEAN CELL VOLUME 96.3 fl (81.0-99.0); MEAN CORPUSCULAR HGB CONC 33.2 g/dL (33.0-37.0); MEAN PLATELET VOLUME 8.7 fl (7.2-11.7); MONO # 1.5 K/uL (0.0-0.8); MONO % 11.7 % (0.0-10.0); NEUT # 9.3 K/uL (1.8-7.0); NRBC % 0.1 % (0.0-0.0); RBC 2.99 Mil/uL (3.80-5.20); RED CELL DISTRIBUTION WIDTH 14.9 % (11.5-14.5); WHITE BLOOD COUNT 12.8 K/uL (4.8-10.8)
[2017-10-19] MEDS: Levothyroxine 25 MCG TAB PO SCH (06:02)
[2017-10-19 06:21] LABS: CALCIUM 8.2 mg/dL (8.4-10.2)
[2017-10-19] MEDS: Albuterol-Ipratrop 3 mg / 0.5 (3 ml) UD INH SCH (08:06)
--- NOTE | 2017-10-19 08:56 | CP.PCM.PN ---
<Kushal Shook - Last Filed: 10/19/17 11:54> Subjective - Subjective Subjective: The patient was seen and examined on rounds with the residents this morning in telemetry. Patient is doing well this morning she slept throughout the night and feels well. Vital signs remained stable BP 100/55, Still Tachycardic(106) and afebrile. O2 Sat is 92% on 2L nasal cannula. K 3.2, Renal function stable, WBC 12.8(previous 14.0). On examination patient still has hoarseness of the voice, B/L dependent LE edema present, Patient is coughing but not expectorating. Rhonchi heard, negative for B/L wheezing, diminishes breath sounds B/L and no dullness to chest percussion anteriorly. WBC improving, 12.8 today. Will monitor CBC. Vanco Trough 19.7, Morning Vancomycin dose on hold. Will D/C Duoneb, Start Xopenex and Ipratropium TID Hypokelemia(3.2): 40 meq K+ given this morning. Will monitor BMP As per Dr. Da Silva, Milrinone to be tappered over 24 hours. Continue other medications. Objective - Vital Signs/Intake and Output Vital Signs (last 24 hours): Temp Pulse Resp BP Pulse Ox 98.3 F 96 H 18 114/61 94 L 10/19/17 08:15 10/19/17 10:37 10/19/17 08:15 10/19/17 10:37 10/19/17 08:15 Intake and Output: 10/19/17 10/19/17 06:59 18:59 Intake Total 100 Balance 100 - Medications Medications: Current Medications Acetaminophen (Tylenol 325mg Tab) 650 mg PO Q6 PRN PRN Reason: Fever >100.4 F Last Admin: 10/03/17 00:07 Dose: 650 mg Acetaminophen (Tylenol 325mg Tab) 650 mg PO Q6 PRN PRN Reason: Pain, Mild (1-3) Last Admin: 10/12/17 02:51 Dose: 650 mg Albuterol Sulfate (Albuterol 0.083% Inhal Shu (2.5 Mg/3 Ml) Ud) 2.5 mg INH RQ4 PRN PRN Reason: Shortness of Breath Last Admin: 10/13/17 04:18 Dose: 2.5 mg Amiodarone HCl (Cordarone) 100 mg PO DAILY [facility] Last Admin: 10/19/17 10:11 Dose: 100 mg Anastrozole (Arimidex 1 Mg Tab) 1 mg PO DAILY [facility] Last Admin: 10/19/17 10:08 Dose: 1 mg Ascorbic Acid (Vitamin C 500 Mg Tab) 500 mg PO DAILY [facility] Last Admin: 10/19/17 10:38 Dose: 500 mg Aspirin (Ecotrin) 81 mg PO DAILY [facility] Last Admin: 10/19/17 10:19 Dose: 81 mg Atorvastatin Calcium (Lipitor) 20 mg PO HS [facility] Last Admin: 10/18/17 21:36 Dose: 20 mg Bisacodyl (Dulcolax) 10 mg [place] DAILY PRN PRN Reason: Constipation Last Admin: 10/06/17 21:17 Dose: 10 mg Cholecalciferol (Vitamin D) 1,000 intlu PO DAILY [facility] Last Admin: 10/19/17 10:38 Dose: 1,000 intlu Docusate Sodium (Colace) 200 mg PO DAILY [facility] Last Admin: 10/19/17 10:09 Dose: 200 mg Enoxaparin Sodium (Lovenox) 30 mg [place] DAILY [facility] PRN Reason: Protocol Last Admin: 10/19/17 10:35 Dose: 30 mg Furosemide (Lasix) 40 mg PO DAILY [facility] Last Admin: 10/19/17 10:35 Dose: 40 mg Guaifenesin (Mucinex La) 600 mg PO Q12 [facility] Last Admin: 10/19/17 10:36 Dose: 600 mg Milrinone Lactate/Dextrose (Primacor 20mg/100ml D5w) 100 mls @ 5.372 mls/hr IV .[id number] [facility] PRN Reason: Protocol Last Admin: 10/19/17 00:41 Dose: 5.372 mls/hr Vancomycin HCl 500 mg/ Sodium (Chloride) 100 mls @ 100 mls/hr IVPB Q12 [facility] PRN Reason: Protocol Last Admin: 10/19/17 08:51 Dose: Not Given Piperacillin Sod/Tazobactam (Sod 3.375 gm/ Sodium Chloride) 100 mls @ 100 mls/ hr IVPB Q8 [facility] PRN Reason: Protocol Last Admin: 10/19/17 10:38 Dose: 100 mls/hr Ipratropium [place] (Atrovent) 0.5 mg IH RQ8 [facility] Lactulose (Enulose) 20 gm PO DAILY PRN PRN Reason: Constipation Last Admin: 10/05/17 17:16 Dose: 20 gm Levalbuterol HCl (Xopenex) 0.63 mg INH RQ8 [facility] Levothyroxine Sodium (Synthroid) 25 mcg PO DAILY@0630 [facility] Last Admin: 10/19/17 06:02 Dose: 25 mcg Losartan Potassium (Cozaar) 25 mg PO DAILY [facility] Last Admin: 10/19/17 10:14 Dose: 25 mg Memantine (Namenda) 10 mg PO DAILY [facility] Last Admin: 10/19/17 10:36 Dose: 10 mg Metoprolol Succinate (Toprol Xl) 50 mg PO DAILY [facility] Last Admin: 10/19/17 10:37 Dose: 50 mg Multivitamins/Minerals (Therapeutic-M Tab) 1 tab PO DAILY [facility] Last Admin: 10/19/17 10:37 Dose: 1 tab Nystatin (Nystatin Oral Susp) 5 ml PO QID [facility] Last Admin: 10/19/17 10:36 Dose: 5 ml Saccharomyces Boulardii (Florastor) 250 mg PO BID [facility] Last Admin: 10/19/17 10:19 Dose: 250 mg Sildenafil Citrate (Revatio) 20 mg PO BID [facility] Last Admin: 10/19/17 10:37 Dose: 20 mg - Labs Labs: 10/19/17 04:20 10/19/17 04:20 <Filiberto Gomez - Last Filed: 10/19/17 20:36> Subjective - Date & Time of Evaluation Date of Evaluation: 10/19/17 Time of Evaluation: 08:55 - Subjective Subjective: Seen and examined together with the resident on rounds. All physical findings and lab results were reviewed and discussed. A plan of care was formulated. I am in agreement with the entry in the EMR as done by the resident. Objective - Vital Signs/Intake and Output Vital Signs (last 24 hours): Temp Pulse Resp BP Pulse Ox 98.3 F 108 H 18 100/55 L 94 L 10/19/17 08:15 10/19/17 08:15 10/19/17 08:15 10/19/17 08:15 10/19/17 08:15 Intake and Output: 10/18/17 10/19/17 23:59 11:59 Intake Total 200 100 Balance 200 100 - Medications Medications: Current Medications Acetaminophen (Tylenol 325mg Tab) 650 mg PO Q6 PRN PRN Reason: Fever >100.4 F Last Admin: 10/03/17 00:07 Dose: 650 mg Acetaminophen (Tylenol 325mg Tab) 650 mg PO Q6 PRN PRN Reason: Pain, Mild (1-3) Last Admin: 10/12/17 02:51 Dose: 650 mg Albuterol Sulfate (Albuterol 0.083% Inhal Shu (2.5 Mg/3 Ml) Ud) 2.5 mg INH RQ4 PRN PRN Reason: Shortness of Breath Last Admin: 10/13/17 04:18 Dose: 2.5 mg Albuterol/Ipratropium (Duoneb 3 Mg/0.5 Mg (3 Ml) Ud) 3 ml INH RTID [facility] Last Admin: 10/19/17 08:06 Dose: 3 ml Amiodarone HCl (Cordarone) 100 mg PO DAILY [facility] Last Admin: 10/18/17 08:50 Dose: 100 mg Anastrozole (Arimidex 1 Mg Tab) 1 mg PO DAILY [facility] Last Admin: 10/18/17 08:49 Dose: 1 mg Ascorbic Acid (Vitamin C 500 Mg Tab) 500 mg PO DAILY [facility] Last Admin: 10/18/17 08:50 Dose: 500 mg Aspirin (Ecotrin) 81 mg PO DAILY [facility] Last Admin: 10/18/17 08:50 Dose: 81 mg Atorvastatin Calcium (Lipitor) 20 mg PO HS [facility] Last Admin: 10/18/17 21:36 Dose: 20 mg Bisacodyl (Dulcolax) 10 mg [place] DAILY PRN PRN Reason: Constipation Last Admin: 10/06/17 21:17 Dose: 10 mg Cholecalciferol (Vitamin D) 1,000 intlu PO DAILY [facility] Last Admin: 10/18/17 08:50 Dose: 1,000 intlu Docusate Sodium (Colace) 200 mg PO DAILY [facility] Last Admin: 10/18/17 15:12 Dose: Not Given Enoxaparin Sodium (Lovenox) 30 mg [place] DAILY [facility] PRN Reason: Protocol Last Admin: 10/18/17 08:49 Dose: 30 mg Furosemide (Lasix) 40 mg PO DAILY [facility] Last Admin: 10/18/17 14:58 Dose: 40 mg Guaifenesin (Mucinex La) 600 mg PO Q12 [facility] Last Admin: 10/18/17 21:37 Dose: 600 mg Milrinone Lactate/Dextrose (Primacor 20mg/100ml D5w) 100 mls @ 5.372 mls/hr IV .[id number] [facility] PRN Reason: Protocol Last Admin: 10/19/17 00:41 Dose: 5.372 mls/hr Vancomycin HCl 500 mg/ Sodium (Chloride) 100 mls @ 100 mls/hr IVPB Q12 [facility] PRN Reason: Protocol Last Admin: 10/19/17 08:51 Dose: Not Given Piperacillin Sod/Tazobactam (Sod 3.375 gm/ Sodium Chloride) 100 mls @ 100 mls/ hr IVPB Q8 [facility] PRN Reason: Protocol Last Admin: 10/19/17 00:18 Dose: 100 mls/hr Lactulose (Enulose) 20 gm PO DAILY PRN PRN Reason: Constipation Last Admin: 10/05/17 17:16 Dose: 20 gm Levothyroxine Sodium (Synthroid) 25 mcg PO DAILY@0630 [facility] Last Admin: 10/19/17 06:02 Dose: 25 mcg Losartan Potassium (Cozaar) 25 mg PO DAILY [facility] Last Admin: 10/18/17 08:56 Dose: Not Given Memantine (Namenda) 10 mg PO DAILY [facility] Last Admin: 10/18/17 08:52 Dose: 10 mg Metoprolol Succinate (Toprol Xl) 50 mg PO DAILY [facility] Last Admin: 10/18/17 08:55 Dose: Not Given Multivitamins/Minerals (Therapeutic-M Tab) 1 tab PO DAILY [facility] Last Admin: 10/18/17 08:53 Dose: 1 tab Nystatin (Nystatin Oral Susp) 5 ml PO QID [facility] Last Admin: 10/18/17 22:00 Dose: 5 ml Saccharomyces Boulardii (Florastor) 250 mg PO BID [facility] Last Admin: 10/18/17 17:02 Dose: 250 mg Sildenafil Citrate (Revatio) 20 mg PO BID [facility] Last Admin: 10/18/17 17:02 Dose: 20 mg - Labs Labs: 10/19/17 04:20 10/19/17 04:20 Assessment and Plan (1) Abdominal pain Status: Acute (2) Sepsis Status: Acute (3) Pneumonia Status: Acute (4) Hydroureteronephrosis Status: Acute (5) Suspected urinary tract infection Status: Acute (6) Chronic constipation Status: Chronic
--- NOTE | 2017-10-19 08:57 | CP.PCM.PN ---
Subjective - Date & Time of Evaluation Date of Evaluation: 10/20/17 Time of Evaluation: 20:00 - Subjective Subjective: SOB improving wbc trending down Objective - Vital Signs/Intake and Output Vital Signs (last 24 hours): Temp Pulse Resp BP Pulse Ox 98.3 F 108 H 18 100/55 L 94 L 10/19/17 08:15 10/19/17 08:15 10/19/17 08:15 10/19/17 08:15 10/19/17 08:15 Intake and Output: 10/19/17 10/19/17 06:59 18:59 Intake Total 100 Balance 100 - Medications Medications: Current Medications Acetaminophen (Tylenol 325mg Tab) 650 mg PO Q6 PRN PRN Reason: Fever >100.4 F Last Admin: 10/03/17 00:07 Dose: 650 mg Acetaminophen (Tylenol 325mg Tab) 650 mg PO Q6 PRN PRN Reason: Pain, Mild (1-3) Last Admin: 10/12/17 02:51 Dose: 650 mg Albuterol Sulfate (Albuterol 0.083% Inhal Shu (2.5 Mg/3 Ml) Ud) 2.5 mg INH RQ4 PRN PRN Reason: Shortness of Breath Last Admin: 10/13/17 04:18 Dose: 2.5 mg Albuterol/Ipratropium (Duoneb 3 Mg/0.5 Mg (3 Ml) Ud) 3 ml INH RTID [facility] Last Admin: 10/19/17 08:06 Dose: 3 ml Amiodarone HCl (Cordarone) 100 mg PO DAILY [facility] Last Admin: 10/18/17 08:50 Dose: 100 mg Anastrozole (Arimidex 1 Mg Tab) 1 mg PO DAILY [facility] Last Admin: 10/18/17 08:49 Dose: 1 mg Ascorbic Acid (Vitamin C 500 Mg Tab) 500 mg PO DAILY [facility] Last Admin: 10/18/17 08:50 Dose: 500 mg Aspirin (Ecotrin) 81 mg PO DAILY [facility] Last Admin: 10/18/17 08:50 Dose: 81 mg Atorvastatin Calcium (Lipitor) 20 mg PO HS [facility] Last Admin: 10/18/17 21:36 Dose: 20 mg Bisacodyl (Dulcolax) 10 mg [place] DAILY PRN PRN Reason: Constipation Last Admin: 10/06/17 21:17 Dose: 10 mg Cholecalciferol (Vitamin D) 1,000 intlu PO DAILY [facility] Last Admin: 10/18/17 08:50 Dose: 1,000 intlu Docusate Sodium (Colace) 200 mg PO DAILY [facility] Last Admin: 10/18/17 15:12 Dose: Not Given Enoxaparin Sodium (Lovenox) 30 mg SC DAILY [facility] PRN Reason: Protocol Last Admin: 10/18/17 08:49 Dose: 30 mg Furosemide (Lasix) 40 mg PO DAILY [facility] Last Admin: 10/18/17 14:58 Dose: 40 mg Guaifenesin (Mucinex La) 600 mg PO Q12 [facility] Last Admin: 10/18/17 21:37 Dose: 600 mg Milrinone Lactate/Dextrose (Primacor 20mg/100ml D5w) 100 mls @ 5.372 mls/hr IV .[id number] [facility] PRN Reason: Protocol Last Admin: 10/19/17 00:41 Dose: 5.372 mls/hr Vancomycin HCl 500 mg/ Sodium (Chloride) 100 mls @ 100 mls/hr IVPB Q12 [facility] PRN Reason: Protocol Last Admin: 10/19/17 08:51 Dose: Not Given Piperacillin Sod/Tazobactam (Sod 3.375 gm/ Sodium Chloride) 100 mls @ 100 mls/ hr IVPB Q8 [facility] PRN Reason: Protocol Last Admin: 10/19/17 00:18 Dose: 100 mls/hr Lactulose (Enulose) 20 gm PO DAILY PRN PRN Reason: Constipation Last Admin: 10/05/17 17:16 Dose: 20 gm Levothyroxine Sodium (Synthroid) 25 mcg PO DAILY@0630 [facility] Last Admin: 10/19/17 06:02 Dose: 25 mcg Losartan Potassium (Cozaar) 25 mg PO DAILY [facility] Last Admin: 10/18/17 08:56 Dose: Not Given Memantine (Namenda) 10 mg PO DAILY [facility] Last Admin: 10/18/17 08:52 Dose: 10 mg Metoprolol Succinate (Toprol Xl) 50 mg PO DAILY [facility] Last Admin: 10/18/17 08:55 Dose: Not Given Multivitamins/Minerals (Therapeutic-M Tab) 1 tab PO DAILY [facility] Last Admin: 10/18/17 08:53 Dose: 1 tab Nystatin (Nystatin Oral Susp) 5 ml PO QID [facility] Last Admin: 10/18/17 22:00 Dose: 5 ml Saccharomyces Boulardii (Florastor) 250 mg PO BID [facility] Last Admin: 10/18/17 17:02 Dose: 250 mg Sildenafil Citrate (Revatio) 20 mg PO BID [facility] Last Admin: 10/18/17 17:02 Dose: 20 mg - Labs Labs: 10/19/17 04:20 10/19/17 04:20 - Constitutional Appears: Well - Head Exam Head Exam: ATRAUMATIC, NORMAL INSPECTION, NORMOCEPHALIC - Eye Exam Eye Exam: EOMI, Normal appearance, PERRL Pupil Exam: NORMAL ACCOMODATION, PERRL - ENT Exam ENT Exam: Mucous Membranes Moist, Normal Exam - Neck Exam Neck Exam: Full ROM, Normal Inspection. absent: Lymphadenopathy - Respiratory Exam Respiratory Exam: Rales, Rhonchi, NORMAL BREATHING PATTERN - Cardiovascular Exam Cardiovascular Exam: Irregular Rhythm, +S1, +S2, Murmur - GI/Abdominal Exam GI & Abdominal Exam: Soft, Normal Bowel Sounds. absent: Tenderness - Extremities Exam Extremities Exam: Full ROM, Normal Capillary Refill, Normal Inspection. absent : Joint Swelling, Pedal Edema - Back Exam Back Exam: NORMAL INSPECTION - Neurological Exam Neurological Exam: Alert, Awake, CN II-XII Intact, Normal Gait, Oriented x3 - Psychiatric Exam Psychiatric exam: Normal Affect, Normal Mood - Skin Skin Exam: Dry, Intact, Normal Color, Warm Assessment and Plan (1) Acute exacerbation of congestive heart failure Assessment & Plan: dc milrinone cont lasix, toprol , losartan Status: Acute (2) Sepsis Assessment & Plan: improving Status: Acute (3) Suspected urinary tract infection Status: Acute (4) Leukocytosis Status: Acute (5) V-tach Status: Acute (6) CAD (coronary artery disease) Status: Chronic (7) CHF (congestive heart failure) Status: Chronic (8) Pulmonary arterial hypertension Status: Chronic
[2017-10-19] MEDS ORDERED: Potassium Chloride 20 mEq ER Tab PO ONE (08:58)
[2017-10-19] MEDS: Saccharomyces Boulardi 250 mg Cap PO SCH ×2 (10:19→17:23)
[2017-10-19] MEDS: Enoxaparin 30 mg Syringe SC SCH (10:35)
[2017-10-19] MEDS: guaiFENesin 600 mg ER Tab PO SCH ×2 (10:36→21:53)
[2017-10-19] MEDS: Nystatin 100,000 Units/ml Oral Susp 5 ml UD PO SCH ×4 (10:36→22:30)
[2017-10-19] MEDS: Multivitamin With Minerals Tab PO SCH (10:37)
[2017-10-19] MEDS: Metoprolol Succinate 50 mg XL Tab PO SCH (10:37)
[2017-10-19] MEDS: Sildenafil 20 MG TAB PO SCH ×2 (10:37→17:24)
[2017-10-19] MEDS: Cholecalciferol 1,000 INTLU TAB PO SCH (10:38)
--- NOTE | 2017-10-19 10:43 | VASCULAR ---
PROCEDURE: Date of procedure: 10/18/2017 Procedure: 1. Placement of a right arm PICC with ultrasound and fluoroscopic guidance, CPT 13978 2. PICC tip confirmation with spot radiograph and is in the superior vena cava Medications: 3cc 1 percent lidocaine Total Fluoro time: 38.1 seconds Radiation: 4.49 MGy EBL: 2 cc HISTORY: Poor venous access TECHNIQUE: Following informed consent and procedure time-out, the patient was placed supine on the interventional table and the right arm prepped and draped in the usual sterile fashion. Ultrasound showed a patent and compressible right basilic vein. After the skin was anesthetized with lidocaine, the basilic vein was accessed with micro micropuncture technique using ultrasound guidance. A guidewire was then advanced under fluoroscopic guidance into the superior vena cava. An image documenting ultrasound guidance for vascular access was permanently saved. The length of the dual-lumen 5 [place] PICC was trimmed to 35 centimeters and advanced through a peel-away sheath. The PICC was position with tip of PICC confirm a spot radiograph the superior vena cava. The PICC was secured to the patient's skin. The PICC was flushed. A biopatch and sterile dressing was applied. IMPRESSION: Placement of a dual-lumen 5 [place] PICC trimmed to 35 centimeters via right basilic vein. The tip of the PICC is confirmed with spot radiograph and is in the superior vena cava.
--- NOTE | 2017-10-19 13:42 | CP.PCM.PN ---
Subjective - Date & Time of Evaluation Date of Evaluation: 10/19/17 Time of Evaluation: 11:00 - Subjective Subjective: Patient seen and examined. Denied any complaint. As per SW patient now is willing to go to a shelter facility when cleared for DC. Objective - Vital Signs/Intake and Output Vital Signs (last 24 hours): Temp Pulse Resp BP Pulse Ox 97.4 F L 100 H 18 91/55 L 97 10/19/17 12:17 10/19/17 12:17 10/19/17 12:17 10/19/17 12:17 10/19/17 12:17 Intake and Output: 10/19/17 10/19/17 06:59 18:59 Intake Total 100 Balance 100 - Medications Medications: Current Medications Acetaminophen (Tylenol 325mg Tab) 650 mg PO Q6 PRN PRN Reason: Fever >100.4 F Last Admin: 10/03/17 00:07 Dose: 650 mg Acetaminophen (Tylenol 325mg Tab) 650 mg PO Q6 PRN PRN Reason: Pain, Mild (1-3) Last Admin: 10/12/17 02:51 Dose: 650 mg Albuterol Sulfate (Albuterol 0.083% Inhal Shu (2.5 Mg/3 Ml) Ud) 2.5 mg INH RQ4 PRN PRN Reason: Shortness of Breath Last Admin: 10/13/17 04:18 Dose: 2.5 mg Amiodarone HCl (Cordarone) 100 mg PO DAILY [facility] Last Admin: 10/19/17 10:11 Dose: 100 mg Anastrozole (Arimidex 1 Mg Tab) 1 mg PO DAILY [facility] Last Admin: 10/19/17 10:08 Dose: 1 mg Ascorbic Acid (Vitamin C 500 Mg Tab) 500 mg PO DAILY [facility] Last Admin: 10/19/17 10:38 Dose: 500 mg Aspirin (Ecotrin) 81 mg PO DAILY [facility] Last Admin: 10/19/17 10:19 Dose: 81 mg Atorvastatin Calcium (Lipitor) 20 mg PO HS [facility] Last Admin: 10/18/17 21:36 Dose: 20 mg Bisacodyl (Dulcolax) 10 mg [place] DAILY PRN PRN Reason: Constipation Last Admin: 10/06/17 21:17 Dose: 10 mg Cholecalciferol (Vitamin D) 1,000 intlu PO DAILY [facility] Last Admin: 10/19/17 10:38 Dose: 1,000 intlu Docusate Sodium (Colace) 200 mg PO DAILY [facility] Last Admin: 10/19/17 10:09 Dose: 200 mg Enoxaparin Sodium (Lovenox) 30 mg [place] DAILY [facility] PRN Reason: Protocol Last Admin: 10/19/17 10:35 Dose: 30 mg Furosemide (Lasix) 40 mg PO DAILY [facility] Last Admin: 10/19/17 10:35 Dose: 40 mg Guaifenesin (Mucinex La) 600 mg PO Q12 [facility] Last Admin: 10/19/17 10:36 Dose: 600 mg Milrinone Lactate/Dextrose (Primacor 20mg/100ml D5w) 100 mls @ 5.372 mls/hr IV .[id number] [facility] PRN Reason: Protocol Last Admin: 10/19/17 00:41 Dose: 5.372 mls/hr Vancomycin HCl 500 mg/ Sodium (Chloride) 100 mls @ 100 mls/hr IVPB Q12 [facility] PRN Reason: Protocol Last Admin: 10/19/17 08:51 Dose: Not Given Piperacillin Sod/Tazobactam (Sod 3.375 gm/ Sodium Chloride) 100 mls @ 100 mls/ hr IVPB Q8 [facility] PRN Reason: Protocol Last Admin: 10/19/17 10:38 Dose: 100 mls/hr Ipratropium [place] (Atrovent) 0.5 mg IH RQ8 [facility] Lactulose (Enulose) 20 gm PO DAILY PRN PRN Reason: Constipation Last Admin: 10/05/17 17:16 Dose: 20 gm Levalbuterol HCl (Xopenex) 0.63 mg INH RQ8 [facility] Levothyroxine Sodium (Synthroid) 25 mcg PO DAILY@0630 [facility] Last Admin: 10/19/17 06:02 Dose: 25 mcg Losartan Potassium (Cozaar) 25 mg PO DAILY [facility] Last Admin: 10/19/17 10:14 Dose: 25 mg Memantine (Namenda) 10 mg PO DAILY [facility] Last Admin: 10/19/17 10:36 Dose: 10 mg Metoprolol Succinate (Toprol Xl) 50 mg PO DAILY [facility] Last Admin: 10/19/17 10:37 Dose: 50 mg Multivitamins/Minerals (Therapeutic-M Tab) 1 tab PO DAILY [facility] Last Admin: 10/19/17 10:37 Dose: 1 tab Nystatin (Nystatin Oral Susp) 5 ml PO QID [facility] Last Admin: 10/19/17 10:36 Dose: 5 ml Saccharomyces Boulardii (Florastor) 250 mg PO BID [facility] Last Admin: 10/19/17 10:19 Dose: 250 mg Sildenafil Citrate (Revatio) 20 mg PO BID [facility] Last Admin: 10/19/17 10:37 Dose: 20 mg - Labs Labs: 10/19/17 04:20 10/19/17 04:20 - Constitutional Appears: No Acute Distress - Head Exam Head Exam: ATRAUMATIC - Eye Exam Eye Exam: absent: Scleral icterus - ENT Exam ENT Exam: Mucous Membranes Moist - Neck Exam Neck Exam: absent: Meningismus - Respiratory Exam Respiratory Exam: Rales (on bases). absent: Rhonchi, Wheezes, Respiratory Distress - Cardiovascular Exam Cardiovascular Exam: Tachycardia - GI/Abdominal Exam GI & Abdominal Exam: Soft. absent: Tenderness - Rectal Exam Rectal Exam: Deferred - Extremities Exam Extremities Exam: absent: Calf Tenderness, Pedal Edema - Neurological Exam Neurological Exam: Alert, Oriented x3 - Psychiatric Exam Psychiatric exam: Normal Affect - Skin Skin Exam: Dry, Intact Assessment and Plan - Assessment and Plan (Free Text) Assessment: 81 yo female with history of Cardiomyopathy with AICD, Pulmonary HTN, COPD, HTN , HLD, Hypothyroidism, Osteoporosis, RA and CKD stage III admitted on 10/02/17 with Sepsis secondary to UTI. 1. Sepsis Klebsiella bacteremia received 5 days of IV Rocephin after 5 days of IV Meropenem on Zosyn and Vanco Vanco trough: 19.2 Vanco placed on hold repeat Vanco trough in am WBC continue to trend down afebrile Dr West on ID consult 2. UTI resolved 3. COPD exacerbation Duoneb repleced with Xopenex and Ipratropium q 8hrs 4. Cardiomyopathy CXray: mild pulmonary congestion ProBNP: [id number] Dr Da Silva on cardiology consult on Milrinone drip Lasix 40mg PO daily 5. Acute on CKD stage III renal function within normal range
[2017-10-19] MEDS: Ipratropium 0.02% Inhal Soln (0.5 mg/2.5 ml) UD IH SCH ×2 (15:55→23:53)
[2017-10-19] MEDS: Levalbuterol 0.63 MG/3 ML Inhal Soln UD INH SCH ×2 (15:55→23:53)
[2017-10-19] MEDS ORDERED: Milrinone 20mg/100ml D5W 100 ML IV SCH (20:19)
[2017-10-20] MEDS: Piperacillin/Tazobact 3.375 GM in Sodium Chloride 0.9% 100 ML IVPB SCH ×3 (00:54→17:41)
[2017-10-20 05:58] LABS: HEMOGLOBIN 9.4 g/dL (12.0-16.0); MEAN CELL VOLUME 96.6 fl (81.0-99.0); MEAN CORPUSCULAR HEMOGLOBIN 32.1 pg (27.0-31.0); MEAN CORPUSCULAR HGB CONC 33.2 g/dL (33.0-37.0); RBC 2.94 Mil/uL (3.80-5.20); RED CELL DISTRIBUTION WIDTH 14.8 % (11.5-14.5); WHITE BLOOD COUNT 10.8 K/uL (4.8-10.8)
[2017-10-20 06:37] LABS: CALCIUM 8.4 mg/dL (8.4-10.2)
[2017-10-20] MEDS: Levothyroxine 25 MCG TAB PO SCH (08:09)
[2017-10-20] MEDS: Levalbuterol 0.63 MG/3 ML Inhal Soln UD INH SCH ×3 (08:44→23:49)
[2017-10-20] MEDS: Ipratropium 0.02% Inhal Soln (0.5 mg/2.5 ml) UD IH SCH ×3 (08:44→23:49)
[2017-10-20] MEDS: Saccharomyces Boulardi 250 mg Cap PO SCH ×2 (09:42→17:41)
[2017-10-20] MEDS: guaiFENesin 600 mg ER Tab PO SCH ×2 (09:43→21:52)
[2017-10-20] MEDS: Multivitamin With Minerals Tab PO SCH (09:43)
[2017-10-20] MEDS: Metoprolol Succinate 50 mg XL Tab PO SCH (09:44)
[2017-10-20] MEDS: Sildenafil 20 MG TAB PO SCH ×2 (09:44→17:41)
[2017-10-20] MEDS: Nystatin 100,000 Units/ml Oral Susp 5 ml UD PO SCH ×4 (09:45→21:51)
[2017-10-20] MEDS: Cholecalciferol 1,000 INTLU TAB PO SCH (09:46)
--- NOTE | 2017-10-20 11:53 | CP.PCM.PN ---
Subjective - Date & Time of Evaluation Date of Evaluation: 10/20/17 Time of Evaluation: 09:00 - Subjective Subjective: The patient was seen and examined on rounds with the residents this morning in telemetry. Patient is doing well this morning she slept well however feels tired this morning, eating well, + BM + Urinating well. Vital signs remained stable, BP 121/67, HR 66 and afebrile. O2 Sat is 97% on 2L NC. K 3.9, BUN 10 Cr 1.3, WBC normal today at 10.8. Vanc was held yesterday, trough 19.2. HG 9.4. Patients Milrinone done was cut in half yesterday now rate 2.6. On examination patient still has hoarseness of the voice, B/L dependent LE edema present, Patient is coughing but not expectorating. Rales heard, B/L expiratory wheezing, diminishes breath sounds B/L and no dullness to chest percussion anteriorly. Will monitor CBC. Try and have patient out of bed today. On Xopenex and Ipratropium TID. Waiting for a bed to be available at LTAC facility, brother is by proxy on his way here from [place] doesnt want her transferred until he arrives. As per Dr. Da Silva, Milrinone to be tapered, will discuss with Dr. Da Silva her Milrinone schedule/plan before transfer. Objective - Vital Signs/Intake and Output Vital Signs (last 24 hours): Temp Pulse Resp BP Pulse Ox 98.6 F 66 18 121/67 97 10/20/17 08:03 10/20/17 09:45 10/20/17 08:03 10/20/17 09:45 10/20/17 08:03 - Medications Medications: Current Medications Acetaminophen (Tylenol 325mg Tab) 650 mg PO Q6 PRN PRN Reason: Fever >100.4 F Last Admin: 10/03/17 00:07 Dose: 650 mg Acetaminophen (Tylenol 325mg Tab) 650 mg PO Q6 PRN PRN Reason: Pain, Mild (1-3) Last Admin: 10/12/17 02:51 Dose: 650 mg Albuterol Sulfate (Albuterol 0.083% Inhal Shu (2.5 Mg/3 Ml) Ud) 2.5 mg INH RQ4 PRN PRN Reason: Shortness of Breath Last Admin: 10/13/17 04:18 Dose: 2.5 mg Amiodarone HCl (Cordarone) 100 mg PO DAILY [facility] Last Admin: 10/20/17 09:45 Dose: 100 mg Anastrozole (Arimidex 1 Mg Tab) 1 mg PO DAILY [facility] Last Admin: 10/20/17 09:48 Dose: 1 mg Ascorbic Acid (Vitamin C 500 Mg Tab) 500 mg PO DAILY [facility] Last Admin: 10/20/17 09:43 Dose: 500 mg Aspirin (Ecotrin) 81 mg PO DAILY [facility] Last Admin: 10/20/17 09:45 Dose: 81 mg Atorvastatin Calcium (Lipitor) 20 mg PO HS [facility] Last Admin: 10/19/17 21:53 Dose: 20 mg Bisacodyl (Dulcolax) 10 mg [place] DAILY PRN PRN Reason: Constipation Last Admin: 10/06/17 21:17 Dose: 10 mg Cholecalciferol (Vitamin D) 1,000 intlu PO DAILY [facility] Last Admin: 10/20/17 09:46 Dose: 1,000 intlu Docusate Sodium (Colace) 200 mg PO DAILY [facility] Last Admin: 10/20/17 09:41 Dose: 200 mg Furosemide (Lasix) 40 mg PO DAILY [facility] Last Admin: 10/20/17 09:44 Dose: 40 mg Guaifenesin (Mucinex La) 600 mg PO Q12 [facility] Last Admin: 10/20/17 09:43 Dose: 600 mg Vancomycin HCl 500 mg/ Sodium (Chloride) 100 mls @ 100 mls/hr IVPB Q12 [facility] PRN Reason: Protocol Last Admin: 10/20/17 09:48 Dose: 100 mls/hr Piperacillin Sod/Tazobactam (Sod 3.375 gm/ Sodium Chloride) 100 mls @ 100 mls/ hr IVPB Q8 [facility] PRN Reason: Protocol Last Admin: 10/20/17 09:46 Dose: 100 mls/hr Milrinone Lactate/Dextrose (Primacor 20mg/100ml D5w) 100 mls @ 0 mls/hr IV .Q0M [facility]; Per Protocol PRN Reason: Protocol Last Admin: 10/20/17 01:09 Dose: 2.6 mls/hr Ipratropium [place] (Atrovent) 0.5 mg IH RQ8 [facility] Last Admin: 10/20/17 08:44 Dose: 0.5 mg Lactulose (Enulose) 20 gm PO DAILY PRN PRN Reason: Constipation Last Admin: 10/05/17 17:16 Dose: 20 gm Levalbuterol HCl (Xopenex) 0.63 mg INH RQ8 [facility] Last Admin: 10/20/17 08:44 Dose: 0.63 mg Levothyroxine Sodium (Synthroid) 25 mcg PO DAILY@0630 [facility] Last Admin: 10/20/17 08:09 Dose: 25 mcg Losartan Potassium (Cozaar) 25 mg PO DAILY [facility] Last Admin: 10/20/17 09:43 Dose: 25 mg Memantine (Namenda) 10 mg PO DAILY [facility] Last Admin: 10/20/17 09:43 Dose: 10 mg Metoprolol Succinate (Toprol Xl) 50 mg PO DAILY [facility] Last Admin: 10/20/17 09:44 Dose: 50 mg Multivitamins/Minerals (Therapeutic-M Tab) 1 tab PO DAILY [facility] Last Admin: 10/20/17 09:43 Dose: 1 tab Nystatin (Nystatin Oral Susp) 5 ml PO QID [facility] Last Admin: 10/20/17 09:45 Dose: 5 ml Saccharomyces Boulardii (Florastor) 250 mg PO BID [facility] Last Admin: 10/20/17 09:42 Dose: 250 mg Sildenafil Citrate (Revatio) 20 mg PO BID [facility] Last Admin: 10/20/17 09:44 Dose: 20 mg - Labs Labs: 10/20/17 05:45 10/20/17 05:45
--- NOTE | 2017-10-20 12:32 | CP.PCM.PN ---
Subjective - Date & Time of Evaluation Date of Evaluation: 10/20/17 Time of Evaluation: 12:00 - Subjective Subjective: husky voice breathing improving off milrinone Objective - Vital Signs/Intake and Output Vital Signs (last 24 hours): Temp Pulse Resp BP Pulse Ox 98.7 F 98 H 18 111/71 98 10/20/17 12:09 10/20/17 12:09 10/20/17 12:09 10/20/17 12:09 10/20/17 12:09 - Medications Medications: Current Medications Acetaminophen (Tylenol 325mg Tab) 650 mg PO Q6 PRN PRN Reason: Fever >100.4 F Last Admin: 10/03/17 00:07 Dose: 650 mg Acetaminophen (Tylenol 325mg Tab) 650 mg PO Q6 PRN PRN Reason: Pain, Mild (1-3) Last Admin: 10/12/17 02:51 Dose: 650 mg Albuterol Sulfate (Albuterol 0.083% Inhal Shu (2.5 Mg/3 Ml) Ud) 2.5 mg INH RQ4 PRN PRN Reason: Shortness of Breath Last Admin: 10/13/17 04:18 Dose: 2.5 mg Amiodarone HCl (Cordarone) 100 mg PO DAILY [facility] [place] Last Admin: 10/20/17 09:45 Dose: 100 mg Anastrozole (Arimidex 1 Mg Tab) 1 mg PO DAILY [facility] [place] Last Admin: 10/20/17 09:48 Dose: 1 mg Ascorbic Acid (Vitamin C 500 Mg Tab) 500 mg PO DAILY [facility] [place] Last Admin: 10/20/17 09:43 Dose: 500 mg Aspirin (Ecotrin) 81 mg PO DAILY [facility] [place] Last Admin: 10/20/17 09:45 Dose: 81 mg Atorvastatin Calcium (Lipitor) 20 mg PO HS [facility] [place] Last Admin: 10/19/17 21:53 Dose: 20 mg Bisacodyl (Dulcolax) 10 mg [place] DAILY PRN PRN Reason: Constipation Last Admin: 10/06/17 21:17 Dose: 10 mg Cholecalciferol (Vitamin D) 1,000 intlu PO DAILY [facility] [place] Last Admin: 10/20/17 09:46 Dose: 1,000 intlu Docusate Sodium (Colace) 200 mg PO DAILY [facility] [place] Last Admin: 10/20/17 09:41 Dose: 200 mg Furosemide (Lasix) 40 mg PO DAILY [facility] [place] Last Admin: 10/20/17 09:44 Dose: 40 mg Guaifenesin (Mucinex La) 600 mg PO Q12 [facility] [place] Last Admin: 10/20/17 09:43 Dose: 600 mg Vancomycin HCl 500 mg/ Sodium (Chloride) 100 mls @ 100 mls/hr IVPB Q12 [facility] PRN Reason: Protocol Last Admin: 10/20/17 09:48 Dose: 100 mls/hr Piperacillin Sod/Tazobactam (Sod 3.375 gm/ Sodium Chloride) 100 mls @ 100 mls/ hr IVPB Q8 [facility] PRN Reason: Protocol Last Admin: 10/20/17 09:46 Dose: 100 mls/hr Milrinone Lactate/Dextrose (Primacor 20mg/100ml D5w) 100 mls @ 0 mls/hr IV .Q0M [facility]; Per Protocol PRN Reason: Protocol Last Admin: 10/20/17 01:09 Dose: 2.6 mls/hr Ipratropium [place] (Atrovent) 0.5 mg IH RQ8 [facility] [place] Last Admin: 10/20/17 08:44 Dose: 0.5 mg Lactulose (Enulose) 20 gm PO DAILY PRN PRN Reason: Constipation Last Admin: 10/05/17 17:16 Dose: 20 gm Levalbuterol HCl (Xopenex) 0.63 mg INH RQ8 [facility] [place] Last Admin: 10/20/17 08:44 Dose: 0.63 mg Levothyroxine Sodium (Synthroid) 25 mcg PO DAILY@0630 [facility] [place] Last Admin: 10/20/17 08:09 Dose: 25 mcg Losartan Potassium (Cozaar) 25 mg PO DAILY [facility] [place] Last Admin: 10/20/17 09:43 Dose: 25 mg Memantine (Namenda) 10 mg PO DAILY [facility] [place] Last Admin: 10/20/17 09:43 Dose: 10 mg Metoprolol Succinate (Toprol Xl) 50 mg PO DAILY [facility] [place] Last Admin: 10/20/17 09:44 Dose: 50 mg Multivitamins/Minerals (Therapeutic-M Tab) 1 tab PO DAILY [facility] [place] Last Admin: 10/20/17 09:43 Dose: 1 tab Nystatin (Nystatin Oral Susp) 5 ml PO QID [facility] [place] Last Admin: 10/20/17 09:45 Dose: 5 ml Saccharomyces Boulardii (Florastor) 250 mg PO BID [facility] [place] Last Admin: 10/20/17 09:42 Dose: 250 mg Sildenafil Citrate (Revatio) 20 mg PO BID [facility] [place] Last Admin: 10/20/17 09:44 Dose: 20 mg - Labs Labs: 10/20/17 05:45 10/20/17 05:45 - Constitutional Appears: Well - Head Exam Head Exam: ATRAUMATIC, NORMAL INSPECTION, NORMOCEPHALIC - Eye Exam Eye Exam: EOMI, Normal appearance, PERRL Pupil Exam: NORMAL ACCOMODATION, PERRL - ENT Exam ENT Exam: Mucous Membranes Moist, Normal Exam - Neck Exam Neck Exam: Full ROM, Normal Inspection. absent: Lymphadenopathy - Respiratory Exam Respiratory Exam: Clear to Ausculation Bilateral, NORMAL BREATHING PATTERN - Cardiovascular Exam Cardiovascular Exam: REGULAR RHYTHM, +S1, +S2. absent: Murmur - GI/Abdominal Exam GI & Abdominal Exam: Soft, Normal Bowel Sounds. absent: Tenderness - Extremities Exam Extremities Exam: Full ROM, Normal Capillary Refill, Normal Inspection. absent : Joint Swelling, Pedal Edema - Back Exam Back Exam: NORMAL INSPECTION - Neurological Exam Neurological Exam: Alert, Awake, CN II-XII Intact, Normal Gait, Oriented x3 - Psychiatric Exam Psychiatric exam: Normal Affect, Normal Mood - Skin Skin Exam: Dry, Intact, Normal Color, Warm Assessment and Plan (1) Acute exacerbation of congestive heart failure Assessment & Plan: improving off milrinone cont toprol, cozaar cont lasix add spirinolactone 25mg po daily Status: Acute (2) Sepsis Assessment & Plan: improving cont abx Status: Acute (3) Suspected urinary tract infection Status: Acute (4) Leukocytosis Status: Acute (5) V-tach Assessment & Plan: amiodarone Status: Acute (6) CAD (coronary artery disease) Assessment & Plan: cont bb statins asa Status: Chronic (7) CHF (congestive heart failure) Status: Chronic (8) Pulmonary arterial hypertension Status: Chronic
--- NOTE | 2017-10-20 14:49 | CP.PCM.PN ---
Subjective - Date & Time of Evaluation Date of Evaluation: 10/20/17 Time of Evaluation: 10:00 - Subjective Subjective: Patient seen and examined. Claimed she was feeling although looking really weak. Willing to go to LTAC but will need approval from brother who has POA. Objective - Vital Signs/Intake and Output Vital Signs (last 24 hours): Temp Pulse Resp BP Pulse Ox 98.7 F 98 H 18 111/71 98 10/20/17 12:09 10/20/17 12:09 10/20/17 12:10/20/17 12:09 10/20/17 12:09 - Medications Medications: Current Medications Acetaminophen (Tylenol 325mg Tab) 650 mg PO Q6 PRN PRN Reason: Fever >100.4 F Last Admin: 10/03/17 00:07 Dose: 650 mg Acetaminophen (Tylenol 325mg Tab) 650 mg PO Q6 PRN PRN Reason: Pain, Mild (1-3) Last Admin: 10/12/17 02:51 Dose: 650 mg Albuterol Sulfate (Albuterol 0.083% Inhal Shu (2.5 Mg/3 Ml) Ud) 2.5 mg INH RQ4 PRN PRN Reason: Shortness of Breath Last Admin: 10/13/17 04:18 Dose: 2.5 mg Amiodarone HCl (Cordarone) 100 mg PO DAILY [facility] Last Admin: 10/20/17 09:45 Dose: 100 mg Anastrozole (Arimidex 1 Mg Tab) 1 mg PO DAILY [facility] Last Admin: 10/20/17 09:48 Dose: 1 mg Ascorbic Acid (Vitamin C 500 Mg Tab) 500 mg PO DAILY [facility] Last Admin: 10/20/17 09:43 Dose: 500 mg Aspirin (Ecotrin) 81 mg PO DAILY [facility] Last Admin: 10/20/17 09:45 Dose: 81 mg Atorvastatin Calcium (Lipitor) 20 mg PO HS [facility] Last Admin: 10/19/17 21:53 Dose: 20 mg Bisacodyl (Dulcolax) 10 mg [place] DAILY PRN PRN Reason: Constipation Last Admin: 10/06/17 21:17 Dose: 10 mg Cholecalciferol (Vitamin D) 1,000 intlu PO DAILY [facility] Last Admin: 10/20/17 09:46 Dose: 1,000 intlu Docusate Sodium (Colace) 200 mg PO DAILY [facility] Last Admin: 10/20/17 09:41 Dose: 200 mg Furosemide (Lasix) 40 mg PO DAILY [facility] Last Admin: 10/20/17 09:44 Dose: 40 mg Guaifenesin (Mucinex La) 600 mg PO Q12 [facility] Last Admin: 10/20/17 09:43 Dose: 600 mg Vancomycin HCl 500 mg/ Sodium (Chloride) 100 mls @ 100 mls/hr IVPB Q12 [facility] PRN Reason: Protocol Last Admin: 10/20/17 09:48 Dose: 100 mls/hr Piperacillin Sod/Tazobactam (Sod 3.375 gm/ Sodium Chloride) 100 mls @ 100 mls/ hr IVPB Q8 [facility] PRN Reason: Protocol Last Admin: 10/20/17 09:46 Dose: 100 mls/hr Milrinone Lactate/Dextrose (Primacor 20mg/100ml D5w) 100 mls @ 0 mls/hr IV .Q0M [facility]; Per Protocol PRN Reason: Protocol Last Admin: 10/20/17 01:09 Dose: 2.6 mls/hr Ipratropium [place] (Atrovent) 0.5 mg IH RQ8 [facility] Last Admin: 10/20/17 08:44 Dose: 0.5 mg Lactulose (Enulose) 20 gm PO DAILY PRN PRN Reason: Constipation Last Admin: 10/05/17 17:16 Dose: 20 gm Levalbuterol HCl (Xopenex) 0.63 mg INH RQ8 [facility] Last Admin: 10/20/17 08:44 Dose: 0.63 mg Levothyroxine Sodium (Synthroid) 25 mcg PO DAILY@0630 [facility] Last Admin: 10/20/17 08:09 Dose: 25 mcg Losartan Potassium (Cozaar) 25 mg PO DAILY [facility] Last Admin: 10/20/17 09:43 Dose: 25 mg Memantine (Namenda) 10 mg PO DAILY [facility] Last Admin: 10/20/17 09:43 Dose: 10 mg Metoprolol Succinate (Toprol Xl) 50 mg PO DAILY [facility] Last Admin: 10/20/17 09:44 Dose: 50 mg Multivitamins/Minerals (Therapeutic-M Tab) 1 tab PO DAILY [facility] Last Admin: 10/20/17 09:43 Dose: 1 tab Nystatin (Nystatin Oral Susp) 5 ml PO QID [facility] Last Admin: 10/20/17 13:14 Dose: 5 ml Saccharomyces Boulardii (Florastor) 250 mg PO BID [facility] Last Admin: 10/20/17 09:42 Dose: 250 mg Sildenafil Citrate (Revatio) 20 mg PO BID [facility] Last Admin: 10/20/17 09:44 Dose: 20 mg - Labs Labs: 10/20/17 05:45 10/20/17 05:45 - Constitutional Appears: No Acute Distress - Head Exam Head Exam: ATRAUMATIC - Eye Exam Eye Exam: absent: Scleral icterus - ENT Exam ENT Exam: Normal Oropharynx - Neck Exam Neck Exam: absent: Meningismus - Respiratory Exam Respiratory Exam: Rales (on both bases) - Cardiovascular Exam Cardiovascular Exam: REGULAR RHYTHM, +S1, +S2 - GI/Abdominal Exam GI & Abdominal Exam: Soft. absent: Tenderness - Rectal Exam Rectal Exam: Deferred - Extremities Exam Extremities Exam: absent: Pedal Edema - Back Exam Back Exam: NORMAL INSPECTION - Neurological Exam Neurological Exam: Alert, Oriented x3 - Psychiatric Exam Psychiatric exam: Normal Affect - Skin Skin Exam: Dry, Intact Assessment and Plan - Assessment and Plan (Free Text) Assessment: 81 yo female with history of Cardiomyopathy with AICD, Pulmonary HTN, COPD, HTN , HLD, Hypothyroidism, Osteoporosis, RA and CKD stage III admitted on 10/02/17 with Sepsis secondary to UTI. 1. Sepsis Klebsiella bacteremia received 5 days of IV Rocephin after 5 days of IV Meropenem on Zosyn and Vanco Vanco trough: 9.7 WBC down to normal range afebrile Dr West on ID consult 2. UTI resolved 3. COPD exacerbation continue Duoneb prn 4. Cardiomyopathy CXray: mild pulmonary congestion ProBNP: [id number] Dr Da Silva on cardiology consult Milrinone drip being tapered by billet header Lasix 40mg PO daily 5. Acute on CKD stage III renal function slightly deteriorating
[2017-10-21] MEDS: Piperacillin/Tazobact 3.375 GM in Sodium Chloride 0.9% 100 ML IVPB SCH (00:24)
[2017-10-21] MEDS: Levothyroxine 25 MCG TAB PO SCH (06:35)
[2017-10-21] MEDS: Levalbuterol 0.63 MG/3 ML Inhal Soln UD INH SCH ×3 (08:09→23:43)
[2017-10-21] MEDS: Ipratropium 0.02% Inhal Soln (0.5 mg/2.5 ml) UD IH SCH ×3 (08:09→23:43)
[2017-10-21] MEDS: Nystatin 100,000 Units/ml Oral Susp 5 ml UD PO SCH ×4 (09:59→21:17)
[2017-10-21] MEDS: Cholecalciferol 1,000 INTLU TAB PO SCH (10:00)
[2017-10-21] MEDS: Saccharomyces Boulardi 250 mg Cap PO SCH ×2 (10:00→18:00)
[2017-10-21] MEDS: Multivitamin With Minerals Tab PO SCH (10:00)
[2017-10-21] MEDS: guaiFENesin 600 mg ER Tab PO SCH ×2 (10:00→21:18)
[2017-10-21] MEDS: Sildenafil 20 MG TAB PO SCH (10:02)
[2017-10-21] MEDS: Metoprolol Succinate 50 mg XL Tab PO SCH (10:02)
--- NOTE | 2017-10-21 12:09 | CP.PCM.PN ---
Subjective - Date & Time of Evaluation Date of Evaluation: 10/21/17 Time of Evaluation: 09:00 - Subjective Subjective: Patient was seen this morning she slept well feels good, has a good appetite. Patient states she has some SOB, mild cough without sputum. Vital signs remained stable, BP 127/84, HR 73 and afebrile. O2 Sat is 96% on 2L NC. Yesterday patients WBC was normal at 10.8., Hg 9.4. On examination patient still has hoarseness of the voice, and thrush coating the back of the tongue, B/L dependent LE edema present, Patient is coughing but denies sputum. B/L Bibasilar Rales heard, B/L expiratory wheezing, diminishes breath sounds B/L and no dullness to chest percussion anteriorly. Patient is now off the Milrinone and in regular sinus rhythm, continue Nystatin swish and swallow, Will monitor CBC in AM, Ordered CXR today. Plan for patient to do rehab today, Antibiotics Pip/Tazo and Vanc D/cd. On Xopenex and Ipratropium TID. Patient no longer going to LTAC due to being off milrinone. Objective - Vital Signs/Intake and Output Vital Signs (last 24 hours): Temp Pulse Resp BP Pulse Ox 97.9 F 73 18 127/84 96 10/21/17 08:19 10/21/17 10:04 10/21/17 08:19 10/21/17 10:04 10/21/17 08:19 Intake and Output: 10/21/17 10/21/17 06:59 18:59 Intake Total 1411 Balance 1411 - Medications Medications: Current Medications Acetaminophen (Tylenol 325mg Tab) 650 mg PO Q6 PRN PRN Reason: Fever >100.4 F Last Admin: 10/03/17 00:07 Dose: 650 mg Acetaminophen (Tylenol 325mg Tab) 650 mg PO Q6 PRN PRN Reason: Pain, Mild (1-3) Last Admin: 10/12/17 02:51 Dose: 650 mg Albuterol Sulfate (Albuterol 0.083% Inhal Shu (2.5 Mg/3 Ml) Ud) 2.5 mg INH RQ4 PRN PRN Reason: Shortness of Breath Last Admin: 10/13/17 04:18 Dose: 2.5 mg Amiodarone HCl (Cordarone) 100 mg PO DAILY [facility] Last Admin: 10/21/17 10:04 Dose: 100 mg Anastrozole (Arimidex 1 Mg Tab) 1 mg PO DAILY [facility] Last Admin: 10/21/17 09:59 Dose: 1 mg Ascorbic Acid (Vitamin C 500 Mg Tab) 500 mg PO DAILY [facility] Last Admin: 10/21/17 10:00 Dose: 500 mg Aspirin (Ecotrin) 81 mg PO DAILY [facility] Last Admin: 10/21/17 10:00 Dose: 81 mg Atorvastatin Calcium (Lipitor) 20 mg PO HS [facility] Last Admin: 10/20/17 21:52 Dose: 20 mg Bisacodyl (Dulcolax) 10 mg [place] DAILY PRN PRN Reason: Constipation Last Admin: 10/06/17 21:17 Dose: 10 mg Cholecalciferol (Vitamin D) 1,000 intlu PO DAILY [facility] Last Admin: 10/21/17 10:00 Dose: 1,000 intlu Docusate Sodium (Colace) 200 mg PO DAILY [facility] Last Admin: 10/21/17 10:00 Dose: 200 mg Furosemide (Lasix) 40 mg PO DAILY [facility] Last Admin: 10/21/17 10:01 Dose: 40 mg Guaifenesin (Mucinex La) 600 mg PO Q12 [facility] Last Admin: 10/21/17 10:00 Dose: 600 mg Ipratropium [place] (Atrovent) 0.5 mg IH RQ8 [facility] Last Admin: 10/21/17 08:09 Dose: 0.5 mg Lactulose (Enulose) 20 gm PO DAILY PRN PRN Reason: Constipation Last Admin: 10/05/17 17:16 Dose: 20 gm Levalbuterol HCl (Xopenex) 0.63 mg INH RQ8 [facility] Last Admin: 10/21/17 08:09 Dose: 0.63 mg Levothyroxine Sodium (Synthroid) 25 mcg PO DAILY@0630 [facility] Last Admin: 10/21/17 06:35 Dose: 25 mcg Losartan Potassium (Cozaar) 25 mg PO DAILY [facility] Last Admin: 10/21/17 10:01 Dose: 25 mg Memantine (Namenda) 10 mg PO DAILY [facility] Last Admin: 10/21/17 10:04 Dose: 10 mg Metoprolol Succinate (Toprol Xl) 50 mg PO DAILY [facility] Last Admin: 10/21/17 10:02 Dose: 50 mg Multivitamins/Minerals (Therapeutic-M Tab) 1 tab PO DAILY [facility] Last Admin: 10/21/17 10:00 Dose: 1 tab Nystatin (Nystatin Oral Susp) 5 ml PO QID [facility] Last Admin: 10/21/17 09:59 Dose: 5 ml Saccharomyces Boulardii (Florastor) 250 mg PO BID [facility] Last Admin: 10/21/17 10:00 Dose: 250 mg - Labs Labs: 10/20/17 05:45 10/20/17 05:45
--- NOTE | 2017-10-21 13:33 | CP.PCM.PN ---
Subjective - Date & Time of Evaluation Date of Evaluation: 10/21/17 Time of Evaluation: 13:32 - Subjective Subjective: pt still with hoarse voice physical therapy today hd stable off milrinone drip hold lasix 1 day for worsening renal fx hd stable nad Objective - Vital Signs/Intake and Output Vital Signs (last 24 hours): Temp Pulse Resp BP Pulse Ox 97.8 F 79 18 118/62 97 10/21/17 12:30 10/21/17 12:30 10/21/17 12:30 10/21/17 12:30 10/21/17 12:30 Intake and Output: 10/21/17 10/21/17 06:59 18:59 Intake Total 1411 Balance 1411 Vitals Reviewed GEN: WDWN, alert, cooperative, appears weak HEENT: NCAT, PERRL, EOMI HEART: RRR, +S1S2, NO MRG LUNG: CTAB, NO WRR ABD: soft, NT, ND, No HSM, No masses EXT: normal pedal pulses, normal capillary refill NEURO: awake, alert SKIN: warm, dry PSYCH: normal mood, normal affect - Medications Medications: Current Medications Acetaminophen (Tylenol 325mg Tab) 650 mg PO Q6 PRN PRN Reason: Fever >100.4 F Last Admin: 10/03/17 00:07 Dose: 650 mg Acetaminophen (Tylenol 325mg Tab) 650 mg PO Q6 PRN PRN Reason: Pain, Mild (1-3) Last Admin: 10/12/17 02:51 Dose: 650 mg Albuterol Sulfate (Albuterol 0.083% Inhal Shu (2.5 Mg/3 Ml) Ud) 2.5 mg INH RQ4 PRN PRN Reason: Shortness of Breath Last Admin: 10/13/17 04:18 Dose: 2.5 mg Amiodarone HCl (Cordarone) 100 mg PO DAILY [facility] Last Admin: 10/21/17 10:04 Dose: 100 mg Anastrozole (Arimidex 1 Mg Tab) 1 mg PO DAILY [facility] Last Admin: 10/21/17 09:59 Dose: 1 mg Ascorbic Acid (Vitamin C 500 Mg Tab) 500 mg PO DAILY [facility] Last Admin: 10/21/17 10:00 Dose: 500 mg Aspirin (Ecotrin) 81 mg PO DAILY [facility] Last Admin: 10/21/17 10:00 Dose: 81 mg Atorvastatin Calcium (Lipitor) 20 mg PO HS [facility] Last Admin: 10/20/17 21:52 Dose: 20 mg Bisacodyl (Dulcolax) 10 mg [place] DAILY PRN PRN Reason: Constipation Last Admin: 10/06/17 21:17 Dose: 10 mg Cholecalciferol (Vitamin D) 1,000 intlu PO DAILY [facility] Last Admin: 10/21/17 10:00 Dose: 1,000 intlu Docusate Sodium (Colace) 200 mg PO DAILY [facility] Last Admin: 10/21/17 10:00 Dose: 200 mg Furosemide (Lasix) 40 mg PO DAILY [facility] Last Admin: 10/21/17 10:01 Dose: 40 mg Guaifenesin (Mucinex La) 600 mg PO Q12 [facility] Last Admin: 10/21/17 10:00 Dose: 600 mg Ipratropium [place] (Atrovent) 0.5 mg IH RQ8 [facility] Last Admin: 10/21/17 08:09 Dose: 0.5 mg Lactulose (Enulose) 20 gm PO DAILY PRN PRN Reason: Constipation Last Admin: 10/05/17 17:16 Dose: 20 gm Levalbuterol HCl (Xopenex) 0.63 mg INH RQ8 [facility] Last Admin: 10/21/17 08:09 Dose: 0.63 mg Levothyroxine Sodium (Synthroid) 25 mcg PO DAILY@0630 [facility] Last Admin: 10/21/17 06:35 Dose: 25 mcg Losartan Potassium (Cozaar) 25 mg PO DAILY [facility] Last Admin: 10/21/17 10:01 Dose: 25 mg Memantine (Namenda) 10 mg PO DAILY [facility] Last Admin: 10/21/17 10:04 Dose: 10 mg Metoprolol Succinate (Toprol Xl) 50 mg PO DAILY [facility] Last Admin: 10/21/17 10:02 Dose: 50 mg Multivitamins/Minerals (Therapeutic-M Tab) 1 tab PO DAILY [facility] Last Admin: 10/21/17 10:00 Dose: 1 tab Nystatin (Nystatin Oral Susp) 5 ml PO QID [facility] Last Admin: 10/21/17 12:50 Dose: 5 ml Saccharomyces Boulardii (Florastor) 250 mg PO BID [facility] Last Admin: 10/21/17 10:00 Dose: 250 mg - Labs Labs: 10/20/17 05:45 10/20/17 05:45 Assessment and Plan - Assessment and Plan (Free Text) Plan: 81 yo female with history of Cardiomyopathy with AICD, Pulmonary HTN, COPD, HTN , HLD, Hypothyroidism, Osteoporosis, RA and CKD stage III admitted on 10/02/17 with Sepsis secondary to UTI. Awaiting brother for discharge to [facility]. 1. Sepsis Klebsiella bacteremia received 5 days of IV Rocephin after 5 days of IV Meropenem on Zosyn and Vanco Vanco trough: 9.7 WBC down to normal range afebrile Dr West on ID consult 2. UTI resolved 3. COPD exacerbation continue Duoneb prn 4. 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 Acute on CKD stage III renal function slightly deteriorating
[2017-10-22] MEDS: Levothyroxine 25 MCG TAB PO SCH (06:17)
[2017-10-22 06:47] LABS: HEMOGLOBIN 9.3 g/dL (12.0-16.0); MEAN CELL VOLUME 95.7 fl (81.0-99.0); MEAN CORPUSCULAR HEMOGLOBIN 32.4 pg (27.0-31.0); MEAN CORPUSCULAR HGB CONC 33.9 g/dL (33.0-37.0); RBC 2.87 Mil/uL (3.80-5.20); RED CELL DISTRIBUTION WIDTH 15.1 % (11.5-14.5); WHITE BLOOD COUNT 11.1 K/uL (4.8-10.8)
[2017-10-22 07:01] LABS: CALCIUM 8.3 mg/dL (8.4-10.2)
[2017-10-22] MEDS: Levalbuterol 0.63 MG/3 ML Inhal Soln UD INH SCH ×2 (08:07→15:51)
[2017-10-22] MEDS: Ipratropium 0.02% Inhal Soln (0.5 mg/2.5 ml) UD IH SCH ×2 (08:07→15:51)
[2017-10-22] MEDS: Saccharomyces Boulardi 250 mg Cap PO SCH ×2 (09:29→16:57)
[2017-10-22] MEDS: Nystatin 100,000 Units/ml Oral Susp 5 ml UD PO SCH ×4 (09:29→21:59)
[2017-10-22] MEDS: guaiFENesin 600 mg ER Tab PO SCH ×2 (09:29→21:59)
[2017-10-22] MEDS: Cholecalciferol 1,000 INTLU TAB PO SCH (09:29)
[2017-10-22] MEDS: Multivitamin With Minerals Tab PO SCH (09:29)
--- NOTE | 2017-10-22 09:30 | CP.PCM.PN ---
Subjective - Date & Time of Evaluation Date of Evaluation: 10/22/17 Time of Evaluation: 09:30 - Subjective Subjective: pt appears improved this morning, more alert, increased strength compared to yesterday hd stable renal function improving awaiting brotherfrieda discharge to [facility] Wednesday nad Objective - Vital Signs/Intake and Output Vital Signs (last 24 hours): Temp Pulse Resp BP Pulse Ox 98.7 F 83 18 129/83 96 10/22/17 08:19 10/22/17 08:19 10/22/17 08:19 10/22/17 08:19 10/22/17 08:19 Vitals Reviewed GEN: WDWN, alert, cooperative, appears stronger than yesterday HEENT: NCAT, PERRL, EOMI HEART: RRR, +S1S2, NO MRG LUNG: CTAB, NO WRR ABD: soft, NT, ND, No HSM, No masses EXT: normal pedal pulses, normal capillary refill NEURO: awake, alert SKIN: warm, dry PSYCH: normal mood, normal affect - Medications Medications: Current Medications Acetaminophen (Tylenol 325mg Tab) 650 mg PO Q6 PRN PRN Reason: Fever >100.4 F Last Admin: 10/03/17 00:07 Dose: 650 mg Acetaminophen (Tylenol 325mg Tab) 650 mg PO Q6 PRN PRN Reason: Pain, Mild (1-3) Last Admin: 10/12/17 02:51 Dose: 650 mg Albuterol Sulfate (Albuterol 0.083% Inhal Shu (2.5 Mg/3 Ml) Ud) 2.5 mg INH RQ4 PRN PRN Reason: Shortness of Breath Last Admin: 10/13/17 04:18 Dose: 2.5 mg Amiodarone HCl (Cordarone) 100 mg PO DAILY [facility] Last Admin: 10/21/17 10:04 Dose: 100 mg Anastrozole (Arimidex 1 Mg Tab) 1 mg PO DAILY [facility] Last Admin: 10/21/17 09:59 Dose: 1 mg Ascorbic Acid (Vitamin C 500 Mg Tab) 500 mg PO DAILY [facility] Last Admin: 10/21/17 10:00 Dose: 500 mg Aspirin (Ecotrin) 81 mg PO DAILY [facility] Last Admin: 10/21/17 10:00 Dose: 81 mg Atorvastatin Calcium (Lipitor) 20 mg PO [facility] Last Admin: 10/21/17 21:18 Dose: 20 mg Bisacodyl (Dulcolax) 10 mg [place] DAILY PRN PRN Reason: Constipation Last Admin: 10/06/17 21:17 Dose: 10 mg Cholecalciferol (Vitamin D) 1,000 intlu PO DAILY [facility] Last Admin: 10/21/17 10:00 Dose: 1,000 intlu Docusate Sodium (Colace) 200 mg PO DAILY [facility] Last Admin: 10/21/17 10:00 Dose: 200 mg Furosemide (Lasix) 40 mg PO DAILY [facility] Last Admin: 10/21/17 10:01 Dose: 40 mg Guaifenesin (Mucinex La) 600 mg PO Q12 [facility] Last Admin: 10/21/17 21:18 Dose: 600 mg Ipratropium [place] (Atrovent) 0.5 mg IH RQ8 [facility] Last Admin: 10/22/17 08:07 Dose: 0.5 mg Lactulose (Enulose) 20 gm PO DAILY PRN PRN Reason: Constipation Last Admin: 10/05/17 17:16 Dose: 20 gm Levalbuterol HCl (Xopenex) 0.63 mg INH RQ8 [facility] Last Admin: 10/22/17 08:07 Dose: 0.63 mg Levothyroxine Sodium (Synthroid) 25 mcg PO DAILY@0630 [facility] Last Admin: 10/22/17 06:17 Dose: 25 mcg Losartan Potassium (Cozaar) 25 mg PO DAILY [facility] Last Admin: 10/21/17 10:01 Dose: 25 mg Memantine (Namenda) 10 mg PO DAILY [facility] Last Admin: 10/21/17 10:04 Dose: 10 mg Metoprolol Succinate (Toprol Xl) 50 mg PO DAILY [facility] Last Admin: 10/21/17 10:02 Dose: 50 mg Multivitamins/Minerals (Therapeutic-M Tab) 1 tab PO DAILY [facility] Last Admin: 10/21/17 10:00 Dose: 1 tab Nystatin (Nystatin Oral Susp) 5 ml PO QID [facility] Last Admin: 10/21/17 21:17 Dose: 5 ml Saccharomyces Boulardii (Florastor) 250 mg PO BID [facility] Last Admin: 10/21/17 18:00 Dose: 250 mg - Labs Labs: 10/22/17 05:00 10/22/17 05:00 Assessment and Plan - Assessment and Plan (Free Text) Plan: 81 yo female with history of Cardiomyopathy with AICD, Pulmonary HTN, COPD, HTN , HLD, Hypothyroidism, Osteoporosis, RA and CKD stage III admitted on 10/02/17 with Sepsis secondary to UTI. Awaiting brother for discharge to [facility], [place], operated by [facility], planned for WEDNESDAY. 1. Sepsis Klebsiella bacteremia received 5 days of IV Rocephin after 5 days of IV Meropenem on Zosyn and Vanco Vanco trough: 9.7 WBC down to normal range afebrile Dr West on ID consult 2. UTI resolved 3. COPD exacerbation continue Duoneb prn 4. Cardiomyopathy CXray: mild pulmonary congestion ProBNP: [id number] Dr Da Silva on cardiology consult Milrinone drip D/C PER cardiology Lasix 40mg PO daily reusme tomorrow 5. Acute on CKD stage III renal function improving resume lasix tomorrow
[2017-10-22] MEDS: Metoprolol Succinate 50 mg XL Tab PO SCH (09:31)
--- NOTE | 2017-10-22 09:50 | CP.PCM.PN ---
Subjective - Date & Time of Evaluation Date of Evaluation: 10/21/17 Time of Evaluation: 23:00 - Subjective Subjective: husky voice difficulty sleeping lasix held 2' to Cr 1.3 Objective - Vital Signs/Intake and Output Vital Signs (last 24 hours): Temp Pulse Resp BP Pulse Ox 98.7 F 83 18 129/83 96 10/22/17 08:19 10/22/17 09:32 10/22/17 08:19 10/22/17 09:32 10/22/17 08:19 - Medications Medications: Current Medications Acetaminophen (Tylenol 325mg Tab) 650 mg PO Q6 PRN PRN Reason: Fever >100.4 F Last Admin: 10/03/17 00:07 Dose: 650 mg Acetaminophen (Tylenol 325mg Tab) 650 mg PO Q6 PRN PRN Reason: Pain, Mild (1-3) Last Admin: 10/12/17 02:51 Dose: 650 mg Albuterol Sulfate (Albuterol 0.083% Inhal Shu (2.5 Mg/3 Ml) Ud) 2.5 mg INH RQ4 PRN PRN Reason: Shortness of Breath Last Admin: 10/13/17 04:18 Dose: 2.5 mg Amiodarone HCl (Cordarone) 100 mg PO DAILY [facility] Last Admin: 10/22/17 09:32 Dose: 100 mg Anastrozole (Arimidex 1 Mg Tab) 1 mg PO DAILY [facility] Last Admin: 10/22/17 09:30 Dose: 1 mg Ascorbic Acid (Vitamin C 500 Mg Tab) 500 mg PO DAILY [facility] Last Admin: 10/22/17 09:29 Dose: 500 mg Aspirin (Ecotrin) 81 mg PO DAILY [facility] Last Admin: 10/22/17 09:29 Dose: 81 mg Atorvastatin Calcium (Lipitor) 20 mg PO HS [facility] Last Admin: 10/21/17 21:18 Dose: 20 mg Bisacodyl (Dulcolax) 10 mg [place] DAILY PRN PRN Reason: Constipation Last Admin: 10/06/17 21:17 Dose: 10 mg Cholecalciferol (Vitamin D) 1,000 intlu PO DAILY [facility] Last Admin: 10/22/17 09:29 Dose: 1,000 intlu Docusate Sodium (Colace) 200 mg PO DAILY [facility] Last Admin: 10/22/17 09:30 Dose: 200 mg Furosemide (Lasix) 40 mg PO DAILY [facility] Last Admin: 10/21/17 10:01 Dose: 40 mg Guaifenesin (Mucinex La) 600 mg PO Q12 [facility] Last Admin: 10/22/17 09:29 Dose: 600 mg Ipratropium [place] (Atrovent) 0.5 mg IH RQ8 [facility] Last Admin: 10/22/17 08:07 Dose: 0.5 mg Lactulose (Enulose) 20 gm PO DAILY PRN PRN Reason: Constipation Last Admin: 10/05/17 17:16 Dose: 20 gm Levalbuterol HCl (Xopenex) 0.63 mg INH RQ8 [facility] Last Admin: 10/22/17 08:07 Dose: 0.63 mg Levothyroxine Sodium (Synthroid) 25 mcg PO DAILY@0630 [facility] Last Admin: 10/22/17 06:17 Dose: 25 mcg Losartan Potassium (Cozaar) 25 mg PO DAILY [facility] Last Admin: 10/22/17 09:31 Dose: 25 mg Memantine (Namenda) 10 mg PO DAILY [facility] Last Admin: 10/22/17 09:30 Dose: 10 mg Metoprolol Succinate (Toprol Xl) 50 mg PO DAILY [facility] Last Admin: 10/22/17 09:31 Dose: 50 mg Multivitamins/Minerals (Therapeutic-M Tab) 1 tab PO DAILY [facility] Last Admin: 10/22/17 09:29 Dose: 1 tab Nystatin (Nystatin Oral Susp) 5 ml PO QID [facility] Last Admin: 10/22/17 09:29 Dose: 5 ml Saccharomyces Boulardii (Florastor) 250 mg PO BID [facility] Last Admin: 10/22/17 09:29 Dose: 250 mg - Labs Labs: 10/22/17 05:00 10/22/17 05:00 - Constitutional Appears: Well - Head Exam Head Exam: ATRAUMATIC, NORMAL INSPECTION, NORMOCEPHALIC - Eye Exam Eye Exam: EOMI, Normal appearance, PERRL Pupil Exam: NORMAL ACCOMODATION, PERRL - ENT Exam ENT Exam: Mucous Membranes Moist, Normal Exam - Neck Exam Neck Exam: Full ROM, Normal Inspection. absent: Lymphadenopathy - Respiratory Exam Respiratory Exam: Clear to Ausculation Bilateral, Rales, NORMAL BREATHING PATTERN - Cardiovascular Exam Cardiovascular Exam: REGULAR RHYTHM, +S1, +S2, Murmur - GI/Abdominal Exam GI & Abdominal Exam: Soft, Normal Bowel Sounds. absent: Tenderness - Extremities Exam Extremities Exam: Full ROM, Normal Capillary Refill, Normal Inspection. absent : Joint Swelling, Pedal Edema - Back Exam Back Exam: NORMAL INSPECTION - Neurological Exam Neurological Exam: Alert, Awake, CN II-XII Intact, Normal Gait, Oriented x3 - Psychiatric Exam Psychiatric exam: Normal Affect, Normal Mood - Skin Skin Exam: Dry, Intact, Normal Color, Warm Assessment and Plan (1) Acute exacerbation of congestive heart failure Assessment & Plan: add aldactone 25mg po daily cont toprol and cozaar Status: Acute (2) Sepsis Status: Acute (3) Suspected urinary tract infection Status: Acute (4) Leukocytosis Status: Acute (5) V-tach Assessment & Plan: low dose amiodarone Status: Acute (6) CAD (coronary artery disease) Status: Chronic (7) CHF (congestive heart failure) Status: Chronic (8) Pulmonary arterial hypertension Assessment & Plan: sildenafil Status: Chronic
--- NOTE | 2017-10-22 09:53 | CP.PCM.PN ---
Subjective - Date & Time of Evaluation Date of Evaluation: 10/22/17 Time of Evaluation: 09:51 - Subjective Subjective: still husky voice feeling well rested PT today Cr better Objective - Vital Signs/Intake and Output Vital Signs (last 24 hours): Temp Pulse Resp BP Pulse Ox 98.7 F 83 18 129/83 96 10/22/17 08:19 10/22/17 09:32 10/22/17 08:19 10/22/17 09:32 10/22/17 08:19 - Medications Medications: Current Medications Acetaminophen (Tylenol 325mg Tab) 650 mg PO Q6 PRN PRN Reason: Fever >100.4 F Last Admin: 10/03/17 00:07 Dose: 650 mg Acetaminophen (Tylenol 325mg Tab) 650 mg PO Q6 PRN PRN Reason: Pain, Mild (1-3) Last Admin: 10/12/17 02:51 Dose: 650 mg Albuterol Sulfate (Albuterol 0.083% Inhal Shu (2.5 Mg/3 Ml) Ud) 2.5 mg INH RQ4 PRN PRN Reason: Shortness of Breath Last Admin: 10/13/17 04:18 Dose: 2.5 mg Amiodarone HCl (Cordarone) 100 mg PO DAILY [facility] Last Admin: 10/22/17 09:32 Dose: 100 mg Anastrozole (Arimidex 1 Mg Tab) 1 mg PO DAILY [facility] Last Admin: 10/22/17 09:30 Dose: 1 mg Ascorbic Acid (Vitamin C 500 Mg Tab) 500 mg PO DAILY [facility] Last Admin: 10/22/17 09:29 Dose: 500 mg Aspirin (Ecotrin) 81 mg PO DAILY [facility] Last Admin: 10/22/17 09:29 Dose: 81 mg Atorvastatin Calcium (Lipitor) 20 mg PO HS [facility] Last Admin: 10/21/17 21:18 Dose: 20 mg Bisacodyl (Dulcolax) 10 mg [place] DAILY PRN PRN Reason: Constipation Last Admin: 10/06/17 21:17 Dose: 10 mg Cholecalciferol (Vitamin D) 1,000 intlu PO DAILY [facility] Last Admin: 10/22/17 09:29 Dose: 1,000 intlu Docusate Sodium (Colace) 200 mg PO DAILY [facility] Last Admin: 10/22/17 09:30 Dose: 200 mg Furosemide (Lasix) 40 mg PO DAILY [facility] Last Admin: 10/21/17 10:01 Dose: 40 mg Guaifenesin (Mucinex [place]) 600 mg PO Q12 [facility] Last Admin: 10/22/17 09:29 Dose: 600 mg Ipratropium [place] (Atrovent) 0.5 mg IH RQ8 [facility] Last Admin: 10/22/17 08:07 Dose: 0.5 mg Lactulose (Enulose) 20 gm PO DAILY PRN PRN Reason: Constipation Last Admin: 10/05/17 17:16 Dose: 20 gm Levalbuterol HCl (Xopenex) 0.63 mg INH RQ8 [facility] Last Admin: 10/22/17 08:07 Dose: 0.63 mg Levothyroxine Sodium (Synthroid) 25 mcg PO DAILY@0630 [facility] Last Admin: 10/22/17 06:17 Dose: 25 mcg Losartan Potassium (Cozaar) 25 mg PO DAILY [facility] Last Admin: 10/22/17 09:31 Dose: 25 mg Memantine (Namenda) 10 mg PO DAILY [facility] Last Admin: 10/22/17 09:30 Dose: 10 mg Metoprolol Succinate (Toprol Xl) 50 mg PO DAILY [facility] Last Admin: 10/22/17 09:31 Dose: 50 mg Multivitamins/Minerals (Therapeutic-M Tab) 1 tab PO DAILY [facility] Last Admin: 10/22/17 09:29 Dose: 1 tab Nystatin (Nystatin Oral Susp) 5 ml PO QID [facility] Last Admin: 10/22/17 09:29 Dose: 5 ml Saccharomyces Boul[place]ii (Florastor) 250 mg PO BID [facility] Last Admin: 10/22/17 09:29 Dose: 250 mg - Labs Labs: 10/22/17 05:00 10/22/17 05:00 - Constitutional Appears: Well - Head Exam Head Exam: ATRAUMATIC, NORMAL INSPECTION, NORMOCEPHALIC - Eye Exam Eye Exam: EOMI, Normal appearance, PERRL Pupil Exam: NORMAL ACCOMODATION, PERRL - ENT Exam ENT Exam: Mucous Membranes Moist, Normal Exam - Neck Exam Neck Exam: Full ROM, Normal Inspection. absent: Lymphadenopathy - Respiratory Exam Respiratory Exam: Clear to Ausculation Bilateral, Rales, NORMAL BREATHING PATTERN - Cardiovascular Exam Cardiovascular Exam: REGULAR RHYTHM, +S1, +S2, Murmur - GI/Abdominal Exam GI & Abdominal Exam: Soft, Normal Bowel Sounds. absent: Tenderness - Extremities Exam Extremities Exam: Full ROM, Normal Capillary Refill, Normal Inspection. absent : Joint Swelling, Pedal Edema - Back Exam Back Exam: NORMAL INSPECTION - Neurological Exam Neurological Exam: Alert, Awake, CN II-XII Intact, Normal Gait, Oriented x3 - Psychiatric Exam Psychiatric exam: Normal Affect, Normal Mood - Skin Skin Exam: Dry, Intact, Normal Color, Warm Assessment and Plan (1) Acute exacerbation of congestive heart failure Assessment & Plan: cont toprol xl and cozaar add aldactone 25mg po daily lasix 20mg po daily Status: Acute (2) Sepsis Assessment & Plan: abx Status: Acute (3) Suspected urinary tract infection Status: Acute (4) Leukocytosis Status: Acute (5) V-tach Assessment & Plan: amiodarone Status: Acute (6) CAD (coronary artery disease) Status: Chronic (7) CHF (congestive heart failure) Status: Chronic (8) Pulmonary arterial hypertension Status: Chronic
--- NOTE | 2017-10-22 11:08 | RAD ---
Date of service: 10/22/2017 HISTORY: Shortness of breath. COMPARISON: 10/14/2017. FINDINGS: LUNGS: Improved pulmonary edema/ vascular congestion. PLEURA: No significant pleural effusion identified, no pneumothorax apparent. CARDIOVASCULAR: Cardiomegaly. Improving CHF. Position/ configuration of pacemaker OSSEOUS STRUCTURES: No significant abnormalities. VISUALIZED UPPER ABDOMEN: Normal. OTHER FINDINGS: PICC line in satisfactory position IMPRESSION: Interval improvement in congestive heart failure. Satisfactory position of recently placed PICC line.
--- NOTE | 2017-10-22 13:40 | CP.PCM.PN ---
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 She appears to be more comfortable but continues to have a congested cough. Her voice remains hoarse and in low volume. Her vital signs have remained stable. Her WBCs are 11.1 on today's test compared to 10.5 yesterday. Her cough is nonproductive and the last sputum sample collected reported normal jesus. She has been weaned off milrinone without any ill effects. Dependent edema continues to gradually subside. A repeat chest x-ray done today shows decreased vascular congestion. No areas of consolidation are seen. On exam the pharynx is mildly injected and the tongue is coated. The neck is supple and trachea is midline. There is no dullness in the anterior chest wall on percussion. Breath sounds are diminished bilaterally with scattered rhonchi but no wheezing. Dry to medium rales are heard posteriorly in the lower lobes. Heart sounds are slightly distant and the rhythm is regular at a rate of about 80 bpm. She will remain off antibiotics at this time and follow-up CBC will be done in the a.m. Aerosol therapy using low-dose levalbuterol and ipratropium will continue every 8 hours. Management of congestive cardiac failure as per cardiology. Physical therapy as tolerated with out of bed activity. Patient will require long-term subacute rehabilitation. Objective - Vital Signs/Intake and Output Vital Signs (last 24 hours): Temp Pulse Resp BP Pulse Ox 98 F 72 18 120/66 97 10/22/17 12:29 10/22/17 12:29 10/22/17 12:29 10/22/17 12:29 10/22/17 12:29 - Medications Medications: Current Medications Acetaminophen (Tylenol 325mg Tab) 650 mg PO Q6 PRN PRN Reason: Fever >100.4 F Last Admin: 10/03/17 00:07 Dose: 650 mg Acetaminophen (Tylenol 325mg Tab) 650 mg PO Q6 PRN PRN Reason: Pain, Mild (1-3) Last Admin: 10/12/17 02:51 Dose: 650 mg Albuterol Sulfate (Albuterol 0.083% Inhal Shu (2.5 Mg/3 Ml) Ud) 2.5 mg INH RQ4 PRN PRN Reason: Shortness of Breath Last Admin: 10/13/17 04:18 Dose: 2.5 mg Amiodarone HCl (Cordarone) 100 mg PO DAILY [facility] Last Admin: 10/22/17 09:32 Dose: 100 mg Anastrozole (Arimidex 1 Mg Tab) 1 mg PO DAILY [facility] Last Admin: 10/22/17 09:30 Dose: 1 mg Ascorbic Acid (Vitamin C 500 Mg Tab) 500 mg PO DAILY [facility] Last Admin: 10/22/17 09:29 Dose: 500 mg Aspirin (Ecotrin) 81 mg PO DAILY [facility] Last Admin: 10/22/17 09:29 Dose: 81 mg Atorvastatin Calcium (Lipitor) 20 mg PO HS [facility] Last Admin: 10/21/17 21:18 Dose: 20 mg Bisacodyl (Dulcolax) 10 mg [place] DAILY PRN PRN Reason: Constipation Last Admin: 10/06/17 21:17 Dose: 10 mg Cholecalciferol (Vitamin D) 1,000 intlu PO DAILY [facility] Last Admin: 10/22/17 09:29 Dose: 1,000 intlu Docusate Sodium (Colace) 200 mg PO DAILY [facility] Last Admin: 10/22/17 09:30 Dose: 200 mg Furosemide (Lasix) 40 mg PO DAILY [facility] Last Admin: 10/21/17 10:01 Dose: 40 mg Guaifenesin (Mucinex La) 600 mg PO Q12 [facility] Last Admin: 10/22/17 09:29 Dose: 600 mg Ipratropium [place] (Atrovent) 0.5 mg IH RQ8 [facility] Last Admin: 10/22/17 08:07 Dose: 0.5 mg Lactulose (Enulose) 20 gm PO DAILY PRN PRN Reason: Constipation Last Admin: 10/05/17 17:16 Dose: 20 gm Levalbuterol HCl (Xopenex) 0.63 mg INH RQ8 [facility] Last Admin: 10/22/17 08:07 Dose: 0.63 mg Levothyroxine Sodium (Synthroid) 25 mcg PO DAILY@0630 [facility] Last Admin: 10/22/17 06:17 Dose: 25 mcg Losartan Potassium (Cozaar) 25 mg PO DAILY [facility] Last Admin: 10/22/17 09:31 Dose: 25 mg Memantine (Namenda) 10 mg PO DAILY [facility] Last Admin: 10/22/17 09:30 Dose: 10 mg Metoprolol Succinate (Toprol Xl) 50 mg PO DAILY [facility] Last Admin: 10/22/17 09:31 Dose: 50 mg Multivitamins/Minerals (Therapeutic-M Tab) 1 tab PO DAILY [facility] Last Admin: 10/22/17 09:29 Dose: 1 tab Nystatin (Nystatin Oral Susp) 5 ml PO QID [facility] Last Admin: 10/22/17 12:41 Dose: 5 ml Saccharomyces Boulardii (Florastor) 250 mg PO BID [facility] Last Admin: 10/22/17 09:29 Dose: 250 mg - Labs Labs: 10/22/17 05:00 10/22/17 05:00 Assessment and Plan (1) Abdominal pain Status: Acute (2) Sepsis Status: Acute (3) Pneumonia Status: Acute (4) Hydroureteronephrosis Status: Acute (5) Suspected urinary tract infection Status: Acute (6) Chronic constipation Status: Chronic
[2017-10-23] MEDS: Ipratropium 0.02% Inhal Soln (0.5 mg/2.5 ml) UD IH SCH ×2 (00:51→07:50)
[2017-10-23] MEDS: Levalbuterol 0.63 MG/3 ML Inhal Soln UD INH SCH ×2 (00:52→07:49)
[2017-10-23] MEDS: Albuterol 0.083% Inhal Sol (2.5 mg/3 mL) UD INH PRN (02:52)
[2017-10-23] MEDS: Levothyroxine 25 MCG TAB PO SCH (06:19)
[2017-10-23 06:45] LABS: HEMOGLOBIN 9.9 g/dL (12.0-16.0); MEAN CELL VOLUME 96.8 fl (81.0-99.0); MEAN CORPUSCULAR HEMOGLOBIN 32.4 pg (27.0-31.0); MEAN CORPUSCULAR HGB CONC 33.5 g/dL (33.0-37.0); RBC 3.06 Mil/uL (3.80-5.20); RED CELL DISTRIBUTION WIDTH 15.1 % (11.5-14.5)
[2017-10-23] MEDS ORDERED: Sodium Chloride 3% for Inhalation 4 ML VIAL.NEB IH PRN (09:45)
[2017-10-23] MEDS: Saccharomyces Boulardi 250 mg Cap PO SCH (10:19)
[2017-10-23] MEDS: guaiFENesin 600 mg ER Tab PO SCH ×2 (10:20→22:00)
[2017-10-23] MEDS: Nystatin 100,000 Units/ml Oral Susp 5 ml UD PO SCH (10:20)
[2017-10-23] MEDS: Metoprolol Succinate 50 mg XL Tab PO SCH (10:21)
[2017-10-23] MEDS: Multivitamin With Minerals Tab PO SCH (10:21)
[2017-10-23] MEDS: Cholecalciferol 1,000 INTLU TAB PO SCH (10:22)
--- NOTE | 2017-10-23 10:46 | CP.PCM.PN ---
Subjective - Date & Time of Evaluation Date of Evaluation: 10/23/17 Time of Evaluation: 10:30 - Subjective Subjective: Patient seen and examined. More hoarse today than previous. Participating with PT. Complaining of worse than usual lower back pain. Currently appears comfortable however. HD stable, NAD. Renal function continuing to improve. For likely discharge to [facility] on 10/25. Objective - Vital Signs/Intake and Output Vital Signs (last 24 hours): Temp Pulse Resp BP Pulse Ox 97.9 F 81 18 137/77 96 10/23/17 08:12 10/23/17 10:21 10/23/17 08:12 10/23/17 10:21 10/23/17 08:12 - Medications Medications: Current Medications Acetaminophen (Tylenol 325mg Tab) 650 mg PO Q6 PRN PRN Reason: Fever >100.4 F Last Admin: 10/03/17 00:07 Dose: 650 mg Acetaminophen (Tylenol 325mg Tab) 650 mg PO Q6 PRN PRN Reason: Pain, Mild (1-3) Last Admin: 10/12/17 02:51 Dose: 650 mg Albuterol Sulfate (Albuterol 0.083% Inhal Shu (2.5 Mg/3 Ml) Ud) 2.5 mg INH RQ4 PRN PRN Reason: Shortness of Breath Last Admin: 10/23/17 02:52 Dose: 2.5 mg Amiodarone HCl (Cordarone) 100 mg PO DAILY [facility] Last Admin: 10/23/17 10:17 Dose: 100 mg Anastrozole (Arimidex 1 Mg Tab) 1 mg PO DAILY [facility] Last Admin: 10/23/17 10:16 Dose: 1 mg Ascorbic Acid (Vitamin C 500 Mg Tab) 500 mg PO DAILY [facility] Last Admin: 10/23/17 10:21 Dose: 500 mg Aspirin (Ecotrin) 81 mg PO DAILY [facility] Last Admin: 10/23/17 10:19 Dose: 81 mg Atorvastatin Calcium (Lipitor) 20 mg PO HS [facility] Last Admin: 10/22/17 21:58 Dose: 20 mg Bisacodyl (Dulcolax) 10 mg [place] DAILY PRN PRN Reason: Constipation Last Admin: 10/06/17 21:17 Dose: 10 mg Cholecalciferol (Vitamin D) 1,000 intlu PO DAILY [facility] Last Admin: 10/23/17 10:22 Dose: 1,000 intlu Docusate Sodium (Colace) 200 mg PO DAILY [facility] Last Admin: 10/23/17 10:17 Dose: 200 mg Furosemide (Lasix) 40 mg PO DAILY [facility] Last Admin: 10/23/17 10:19 Dose: 40 mg Guaifenesin (Mucinex La) 600 mg PO Q12 [facility] Last Admin: 10/23/17 10:20 Dose: 600 mg Ibuprofen (Motrin Tab) 400 mg PO Q6 PRN PRN Reason: Pain, moderate (4-7) Ipratropium [place] (Atrovent) 0.5 mg IH RQ8 [facility] Last Admin: 10/23/17 07:50 Dose: 0.5 mg Lactulose (Enulose) 20 gm PO DAILY PRN PRN Reason: Constipation Last Admin: 10/05/17 17:16 Dose: 20 gm Levalbuterol HCl (Xopenex) 0.63 mg INH RQ8 [facility] Last Admin: 10/23/17 07:49 Dose: 0.63 mg Levothyroxine Sodium (Synthroid) 25 mcg PO DAILY@0630 [facility] Last Admin: 10/23/17 06:19 Dose: 25 mcg Losartan Potassium (Cozaar) 25 mg PO DAILY [facility] Last Admin: 10/23/17 10:18 Dose: 25 mg Memantine (Namenda) 10 mg PO DAILY [facility] Last Admin: 10/23/17 10:20 Dose: 10 mg Metoprolol Succinate (Toprol Xl) 50 mg PO DAILY [facility] Last Admin: 10/23/17 10:21 Dose: 50 mg Multivitamins/Minerals (Therapeutic-M Tab) 1 tab PO DAILY [facility] Last Admin: 10/23/17 10:21 Dose: 1 tab Nystatin (Nystatin Oral Susp) 5 ml PO QID [facility] Last Admin: 10/23/17 10:20 Dose: 5 ml Saccharomyces Boulardii (Florastor) 250 mg PO BID [facility] Last Admin: 10/23/17 10:19 Dose: 250 mg - Labs Labs: 10/23/17 05:25 10/22/17 05:00 - Additional Findings Additional findings: Physical exam: Constitutional- cooperative, awake, alert Head- NCAT, PERRL Eye- PERRL, EOMI ENT- normal exam, MMM. No erythema noted. Neck- normal inspection, supple, no JVD Respiratory- CTAB, no wheezes rales rhonchi. + occ dry cough Cardiovascular- RRR, +S1, +S2 no MRG GI/Abdominal- normal bowel sounds, soft, no mass, no hsm Skin- warm, dry Extremities Exam- normal capillary refill, normal inspection Neurological Exam- alert, awake, oriented Psych- normal mood, normal affect Assessment and Plan - Assessment and Plan (Free Text) Plan: 81 yo female with history of Cardiomyopathy with AICD, Pulmonary HTN, COPD, HTN , HLD, Hypothyroidism, Osteoporosis, RA and CKD stage III admitted on 10/02/17 with Sepsis secondary to UTI. Awaiting brother for discharge to likely [facility], planned for 10/25. 1. Sepsis, resolving Klebsiella bacteremia received 5 days of IV Rocephin after 5 days of IV Meropenem, now off antibiotics on Zosyn and Vanco Vanco trough: 9.[address] West on ID consult 2. UTI resolved 3. COPD exacerbation continue Duoneb prn 4. Cardiomyopathy CXray: mild pulmonary congestion ProBNP: [address] Dr Da Silva on cardiology consult Milrinone drip D/C PER cardiology Lasix 40mg PO daily resumed today 5. Acute on CKD stage III renal function improving resume lasix today 6. Deconditioning Continue PT out of bed to chair acitivity 7. Sciatica, chronic low back pain - Added Motrin 400 mg po q 6 hours PRN, should be given only short term - Warm compress PRN - PT consultation
--- NOTE | 2017-10-23 12:10 | CP.PCM.PN ---
Subjective - Date & Time of Evaluation Date of Evaluation: 10/23/17 Time of Evaluation: 12:10 - Subjective Subjective: Appears weak/fatigued. Voice is still hoarse. Had physical therapy yesterday, limited. Gradually increasing WBC again; source? Remains afebrile, congested cough +. Incontinent of bladder and bowel. Off milrinone, and appears stable from cardiac standpoint. Dependant edema +, no cyanosis. Breath sounds are diminished bilaterally w/o audible wheezes. No bronchial breath sounds, no egophony. /few scattered dependanr rhonchi and medium rales. Spoke with pt's brother (HC proxy). Tentative for DC to [facility] Wednesday, if stable. Increasing WBC is troubling-reculture blood/urine/sputum. Followup CBC in AM. Consider empiric abx if continued rise in WBC. Objective - Vital Signs/Intake and Output Vital Signs (last 24 hours): Temp Pulse Resp BP Pulse Ox 97.9 F 81 18 137/77 96 10/23/17 08:12 10/23/17 10:21 10/23/17 08:12 10/23/17 10:21 10/23/17 08:12 - Medications Medications: Current Medications Acetaminophen (Tylenol 325mg Tab) 650 mg PO Q6 PRN PRN Reason: Fever >100.4 F Last Admin: 10/03/17 00:07 Dose: 650 mg Acetaminophen (Tylenol 325mg Tab) 650 mg PO Q6 PRN PRN Reason: Pain, Mild (1-3) Last Admin: 10/12/17 02:51 Dose: 650 mg Albuterol Sulfate (Albuterol 0.083% Inhal Shu (2.5 Mg/3 Ml) Ud) 2.5 mg INH RQ4 PRN PRN Reason: Shortness of Breath Last Admin: 10/23/17 02:52 Dose: 2.5 mg Amiodarone HCl (Cordarone) 100 mg PO DAILY [facility] Last Admin: 10/23/17 10:17 Dose: 100 mg Anastrozole (Arimidex 1 Mg Tab) 1 mg PO DAILY [facility] Last Admin: 10/23/17 10:16 Dose: 1 mg Ascorbic Acid (Vitamin C 500 Mg Tab) 500 mg PO DAILY [facility] Last Admin: 10/23/17 10:21 Dose: 500 mg Aspirin (Ecotrin) 81 mg PO DAILY [facility] Last Admin: 10/23/17 10:19 Dose: 81 mg Atorvastatin Calcium (Lipitor) 20 mg PO HS [facility] Last Admin: 10/22/17 21:58 Dose: 20 mg Bisacodyl (Dulcolax) 10 mg [place] DAILY PRN PRN Reason: Constipation Last Admin: 10/06/17 21:17 Dose: 10 mg Cholecalciferol (Vitamin D) 1,000 intlu PO DAILY [facility] Last Admin: 10/23/17 10:22 Dose: 1,000 intlu Docusate Sodium (Colace) 200 mg PO DAILY [facility] Last Admin: 10/23/17 10:17 Dose: 200 mg Furosemide (Lasix) 40 mg PO DAILY [facility] Last Admin: 10/23/17 10:19 Dose: 40 mg Guaifenesin (Mucinex La) 600 mg PO Q12 [facility] Last Admin: 10/23/17 10:20 Dose: 600 mg Ibuprofen (Motrin Tab) 400 mg PO Q6 PRN PRN Reason: Pain, moderate (4-7) Last Admin: 10/23/17 10:40 Dose: 400 mg Ipratropium [place] (Atrovent) 0.5 mg IH RQ8 [facility] Last Admin: 10/23/17 07:50 Dose: 0.5 mg Lactulose (Enulose) 20 gm PO DAILY PRN PRN Reason: Constipation Last Admin: 10/05/17 17:16 Dose: 20 gm Levalbuterol HCl (Xopenex) 0.63 mg INH RQ8 [facility] Last Admin: 10/23/17 07:49 Dose: 0.63 mg Levothyroxine Sodium (Synthroid) 25 mcg PO DAILY@0630 [facility] Last Admin: 10/23/17 06:19 Dose: 25 mcg Losartan Potassium (Cozaar) 25 mg PO DAILY [facility] Last Admin: 10/23/17 10:18 Dose: 25 mg Memantine (Namenda) 10 mg PO DAILY [facility] Last Admin: 10/23/17 10:20 Dose: 10 mg Metoprolol Succinate (Toprol Xl) 50 mg PO DAILY [facility] Last Admin: 10/23/17 10:21 Dose: 50 mg Multivitamins/Minerals (Therapeutic-M Tab) 1 tab PO DAILY [facility] Last Admin: 10/23/17 10:21 Dose: 1 tab Nystatin (Nystatin Oral Susp) 5 ml PO QID [facility] Last Admin: 10/23/17 10:20 Dose: 5 ml Saccharomyces Boulardii (Florastor) 250 mg PO BID [facility] Last Admin: 10/23/17 10:19 Dose: 250 mg - Labs Labs: 10/23/17 05:25 10/22/17 05:00 Assessment and Plan (1) Abdominal pain Status: Acute (2) Sepsis Status: Acute (3) Pneumonia Status: Acute (4) Hydroureteronephrosis Status: Acute (5) Suspected urinary tract infection Status: Acute (6) Chronic constipation Status: Chronic
[2017-10-24] MEDS: Levothyroxine 25 MCG TAB PO SCH (06:01)
[2017-10-24 07:09] LABS: HEMOGLOBIN 9.8 g/dL (12.0-16.0); MEAN CELL VOLUME 97.7 fl (81.0-99.0); MEAN CORPUSCULAR HEMOGLOBIN 31.9 pg (27.0-31.0); MEAN CORPUSCULAR HGB CONC 32.6 g/dL (33.0-37.0); RBC 3.08 Mil/uL (3.80-5.20); WHITE BLOOD COUNT 15.2 K/uL (4.8-10.8)
[2017-10-24 07:23] LABS: CALCIUM 8.9 mg/dL (8.4-10.2)
[2017-10-24] MEDS: guaiFENesin 600 mg ER Tab PO SCH ×2 (10:40→21:40)
[2017-10-24] MEDS: Metoprolol Succinate 50 mg XL Tab PO SCH (10:41)
[2017-10-24] MEDS: Multivitamin With Minerals Tab PO SCH (10:41)
[2017-10-24] MEDS: Cholecalciferol 1,000 INTLU TAB PO SCH (10:42)
[2017-10-24] MEDS: Cefdinir 300 MG CAP PO SCH ×2 (13:30→18:24)
--- NOTE | 2017-10-24 14:55 | CP.PCM.PN ---
Subjective - Date & Time of Evaluation Date of Evaluation: 10/24/17 Time of Evaluation: 10:00 - Subjective Subjective: Patient seen and examined today at bedside. Still remains hoarse and appears more fatigued today. HD stable, NAD. Increasing leukocytosis, new cultures pending. Tentative discharge on 10/25. Objective - Vital Signs/Intake and Output Vital Signs (last 24 hours): Temp Pulse Resp BP Pulse Ox 98.6 F 75 18 129/72 98 10/24/17 12:33 10/24/17 12:33 10/24/17 12:33 10/24/17 12:33 10/24/17 12:33 Intake and Output: 10/24/17 10/24/17 06:59 18:59 Intake Total 360 Balance 360 - Medications Medications: Current Medications Acetaminophen (Tylenol 325mg Tab) 650 mg PO Q6 PRN PRN Reason: Fever >100.4 F Last Admin: 10/03/17 00:07 Dose: 650 mg Acetaminophen (Tylenol 325mg Tab) 650 mg PO Q6 PRN PRN Reason: Pain, Mild (1-3) Last Admin: 10/12/17 02:51 Dose: 650 mg Albuterol Sulfate (Albuterol 0.083% Inhal Shu (2.5 Mg/3 Ml) Ud) 2.5 mg INH RQ4 PRN PRN Reason: Shortness of Breath Last Admin: 10/23/17 02:52 Dose: 2.5 mg Amiodarone HCl (Cordarone) 100 mg PO DAILY [facility] Last Admin: 10/24/17 10:38 Dose: 100 mg Anastrozole (Arimidex 1 Mg Tab) 1 mg PO DAILY [facility] Last Admin: 10/24/17 10:37 Dose: 1 mg Ascorbic Acid (Vitamin C 500 Mg Tab) 500 mg PO DAILY [facility] Last Admin: 10/24/17 10:42 Dose: 500 mg Aspirin (Ecotrin) 81 mg PO DAILY [facility] Last Admin: 10/24/17 10:39 Dose: 81 mg Atorvastatin Calcium (Lipitor) 20 mg PO HS [facility] Last Admin: 10/23/17 22:20 Dose: 20 mg Bisacodyl (Dulcolax) 10 mg [place] DAILY PRN PRN Reason: Constipation Last Admin: 10/06/17 21:17 Dose: 10 mg Cefdinir (Omnicef) 300 mg PO BID [facility] Last Admin: 10/24/17 13:30 Dose: 300 mg Cholecalciferol (Vitamin D) 1,000 intlu PO DAILY [facility] Last Admin: 10/24/17 10:42 Dose: 1,000 intlu Docusate Sodium (Colace) 200 mg PO DAILY [facility] Last Admin: 10/24/17 10:38 Dose: 200 mg Furosemide (Lasix) 40 mg PO DAILY [facility] Last Admin: 10/24/17 10:40 Dose: 40 mg Guaifenesin (Mucinex La) 600 mg PO Q12 [facility] Last Admin: 10/24/17 10:40 Dose: 600 mg Ibuprofen (Motrin Tab) 400 mg PO Q6 PRN PRN Reason: Pain, moderate (4-7) Last Admin: 10/23/17 10:40 Dose: 400 mg Lactulose (Enulose) 20 gm PO DAILY PRN PRN Reason: Constipation Last Admin: 10/05/17 17:16 Dose: 20 gm Levothyroxine Sodium (Synthroid) 25 mcg PO DAILY@0630 [facility] Last Admin: 10/24/17 06:01 Dose: 25 mcg Losartan Potassium (Cozaar) 25 mg PO DAILY [facility] Last Admin: 10/24/17 10:39 Dose: 25 mg Memantine (Namenda) 10 mg PO DAILY [facility] Last Admin: 10/24/17 10:41 Dose: 10 mg Metoprolol Succinate (Toprol Xl) 50 mg PO DAILY [facility] Last Admin: 10/24/17 10:41 Dose: 50 mg Multivitamins/Minerals (Therapeutic-M Tab) 1 tab PO DAILY [facility] Last Admin: 10/24/17 10:41 Dose: 1 tab Tramadol HCl (Ultram) 50 mg PO Q4 PRN PRN Reason: Pain, severe (8-10) - Labs Labs: 10/24/17 06:28 10/24/17 06:28 - Additional Findings Additional findings: Physical exam: Constitutional- cooperative, awake though lethargic Head- NCAT, PERRL Eye- PERRL, EOMI ENT- normal exam, MMM. No erythema noted. Neck- normal inspection, supple, no JVD Respiratory- CTAB, no wheezes rales rhonchi. + occ dry cough Cardiovascular- RRR, +S1, +S2 no MRG GI/Abdominal- normal bowel sounds, soft, no mass, no hsm. + incontinent Skin- warm, dry Extremities Exam- +1 bilateral lower extremity edema. normal capillary refill, normal inspection Neurological Exam- alert, awake, oriented Psych- normal mood, normal affect Assessment and Plan - Assessment and Plan (Free Text) Plan: 81 yo female with history of Cardiomyopathy with AICD, Pulmonary HTN, COPD, HTN , HLD, Hypothyroidism, Osteoporosis, RA and CKD stage III admitted on 10/02/17 with Sepsis secondary to UTI. Awaiting brother for discharge to likely [facility], planned for 10/25. 1. Sepsis, improved, still w/ concern for acute infection with increasing WBC Klebsiella bacteremia hx Reculture urine, blood, sputum. Started on Omnicef as per Dr. Gomez. Was previously on Zosyn and Vanco Recheck CBC in AM afebrile Dr West on ID consult Overall appears fatigued, chronically ill patient. 2. UTI resolved 3. COPD exacerbation continue Duoneb prn 4. Cardiomyopathy- chronic, stable CXray: mild pulmonary congestion ProBNP: [id number] Dr Da Silva on cardiology consult Milrinone drip D/C PER cardiology Lasix 40mg PO daily resumed 5. Acute on CKD stage III renal function improving resume lasix 6. Deconditioning Continue PT out of bed to chair acitivity 7. Sciatica, chronic low back pain - Added Motrin 400 mg po q 6 hours PRN, should be given only short term - Warm compress PRN - PT consultation
[2017-10-24 15:06] LABS: URINE BILIRUBIN NEGATIVE (NEGATIVE); URINE BLOOD NEGATIVE (NEGATIVE); URINE CLARITY CLEAR (Clear); URINE COLOR YELLOW (YELLOW); URINE GLUCOSE (UA) NEG (Normal); URINE HYALINE CAST >20 /hpf (0-2); URINE LEUKOCYTE ESTERASE NEG Leu/uL (Negative); URINE PROTEIN NEGATIVE (NEGATIVE); URINE UROBILINOGEN 0.2-1.0 mg/dL (0.2-1.0)
[2017-10-25] MEDS: Levothyroxine 25 MCG TAB PO SCH (05:40)
[2017-10-25 06:49] LABS: BASO # 0.1 K/uL (0.0-0.2); EOS # 0.4 K/uL (0.0-0.7); EOS % 3.4 % (0.0-4.0); HEMOGLOBIN 9.4 g/dL (12.0-16.0); LYMPH # 1.4 K/uL (1.0-4.3); LYMPH % 12.7 % (20.0-40.0); MEAN CELL VOLUME 97.2 fl (81.0-99.0); MEAN CORPUSCULAR HEMOGLOBIN 32.3 pg (27.0-31.0); MEAN CORPUSCULAR HGB CONC 33.2 g/dL (33.0-37.0); MONO # 0.9 K/uL (0.0-0.8); NEUT # 8.3 K/uL (1.8-7.0); NEUT % 74.9 % (50.0-75.0); RBC 2.91 Mil/uL (3.80-5.20); WHITE BLOOD COUNT 11.1 K/uL (4.8-10.8)
[2017-10-25 08:23] VITALS: PULSE 71
[2017-10-25 09:15] VITALS: RESP 18
[2017-10-25] MEDS: guaiFENesin 600 mg ER Tab PO SCH (10:42)
[2017-10-25] MEDS: Cefdinir 300 MG CAP PO SCH (10:42)
[2017-10-25] MEDS: Multivitamin With Minerals Tab PO SCH (10:43)
[2017-10-25] MEDS: Metoprolol Succinate 50 mg XL Tab PO SCH (10:43)
[2017-10-25] MEDS: Cholecalciferol 1,000 INTLU TAB PO SCH (10:44)
--- NOTE | 2017-10-25 12:08 | CP.PCM.PN ---
<Terrie Schroeder - Last Filed: 10/25/17 12:07> Subjective - Date & Time of Evaluation Date of Evaluation: 10/25/17 Time of Evaluation: 09:00 - Subjective Subjective: Patient states she feels tired this morning, she is still SOB and has a cough however cant expectorate. Her voice hoarseness has improved slightly. Patient is urinating and has had a bowel movement. Her blood culture showed no growth at 24hr, Urine culture is negative. Had physical therapy yesterday, limited standing hasnt been able to walk. WBC count has trended downward from 15 to 11.1 today, yesterday patient was started on Cefdinir responding well, remains afebrile. Continues to be stable off milronone BP 137/73. On PE patient had early inspiratory crackles heard, diminished B/L breath sounds , no wheezing, no bronchial breath sounds or egophony. Dependant edema, no cyanosis. Plan is for patient to be DC to [facility] today, if stable. Consider PO empiric abx for 7- 10 days on discharge. Objective - Vital Signs/Intake and Output Vital Signs (last 24 hours): Temp Pulse Resp BP Pulse Ox 98.2 F 71 18 138/78 98 10/25/17 08:00 10/25/17 10:43 10/25/17 08:00 10/25/17 10:43 10/25/17 08:00 Intake and Output: 10/25/17 10/25/17 06:59 18:59 Intake Total 130 Balance 130 - Medications Medications: Current Medications Acetaminophen (Tylenol 325mg Tab) 650 mg PO Q6 PRN PRN Reason: Fever >100.4 F Last Admin: 10/03/17 00:07 Dose: 650 mg Acetaminophen (Tylenol 325mg Tab) 650 mg PO Q6 PRN PRN Reason: Pain, Mild (1-3) Last Admin: 10/12/17 02:51 Dose: 650 mg Albuterol Sulfate (Albuterol 0.083% Inhal Shu (2.5 Mg/3 Ml) Ud) 2.5 mg INH RQ4 PRN PRN Reason: Shortness of Breath Last Admin: 10/23/17 02:52 Dose: 2.5 mg Amiodarone HCl (Cordarone) 100 mg PO DAILY [facility] Last Admin: 10/25/17 10:43 Dose: 100 mg Anastrozole (Arimidex 1 Mg Tab) 1 mg PO DAILY [facility] Last Admin: 10/25/17 10:42 Dose: 1 mg Ascorbic Acid (Vitamin C 500 Mg Tab) 500 mg PO DAILY [facility] Last Admin: 10/25/17 10:43 Dose: 500 mg Aspirin (Ecotrin) 81 mg PO DAILY [facility] Last Admin: 10/25/17 08:59 Dose: 81 mg Atorvastatin Calcium (Lipitor) 20 mg PO HS [facility] Last Admin: 10/24/17 21:41 Dose: 20 mg Bisacodyl (Dulcolax) 10 mg [place] DAILY PRN PRN Reason: Constipation Last Admin: 10/06/17 21:17 Dose: 10 mg Cefdinir (Omnicef) 300 mg PO BID [facility] Last Admin: 10/25/17 10:42 Dose: 300 mg Cholecalciferol (Vitamin D) 1,000 intlu PO DAILY [facility] Last Admin: 10/25/17 10:44 Dose: 1,000 intlu Docusate Sodium (Colace) 200 mg PO DAILY [facility] Last Admin: 10/25/17 08:59 Dose: 200 mg Furosemide (Lasix) 40 mg PO DAILY [facility] Last Admin: 10/25/17 08:58 Dose: 40 mg Guaifenesin (Mucinex La) 600 mg PO Q12 [facility] Last Admin: 10/25/17 10:42 Dose: 600 mg Ibuprofen (Motrin Tab) 400 mg PO Q6 PRN PRN Reason: Pain, moderate (4-7) Last Admin: 10/23/17 10:40 Dose: 400 mg Lactulose (Enulose) 20 gm PO DAILY PRN PRN Reason: Constipation Last Admin: 10/05/17 17:16 Dose: 20 gm Levothyroxine Sodium (Synthroid) 25 mcg PO DAILY@0630 [facility] Last Admin: 10/25/17 05:40 Dose: 25 mcg Losartan Potassium (Cozaar) 25 mg PO DAILY [facility] Last Admin: 10/25/17 10:42 Dose: 25 mg Memantine (Namenda) 10 mg PO DAILY [facility] Last Admin: 10/25/17 10:43 Dose: 10 mg Metoprolol Succinate (Toprol Xl) 50 mg PO DAILY [facility] Last Admin: 10/25/17 10:43 Dose: 50 mg Multivitamins/Minerals (Therapeutic-M Tab) 1 tab PO DAILY [facility] Last Admin: 10/25/17 10:43 Dose: 1 tab Tramadol HCl (Ultram) 50 mg PO Q4 PRN PRN Reason: Pain, severe (8-10) Last Admin: 10/25/17 08:58 Dose: 50 mg - Labs Labs: 10/25/17 06:05 10/24/17 06:28 <Filiberto Gomez - Last Filed: 10/26/17 16:13> Subjective - Subjective Subjective: The patient was seen together with the residents on rounds earlier in the day. Physical findings and ancillary studies were reviewed. Plan of care was formulated together with the residents. The note entered into the EMR by the resident has been reviewed by myself. Objective - Vital Signs/Intake and Output Vital Signs (last 24 hours): Temp Pulse Resp BP Pulse Ox 97.4 F L 71 18 131/77 99 10/25/17 13:00 10/25/17 13:00 10/25/17 13:00 10/25/17 13:00 10/25/17 13:00 - Labs Labs: 10/25/17 06:05 10/24/17 06:28 Assessment and Plan (1) Abdominal pain Status: Acute (2) Sepsis Status: Acute (3) Pneumonia Status: Acute (4) Hydroureteronephrosis Status: Acute (5) Suspected urinary tract infection Status: Acute (6) Chronic constipation Status: Chronic
[2017-10-25 13:47] VITALS: BP 131/77; TEMP 97.4; O2SAT 99
--- NOTE | 2017-10-25 14:15 | CP.PCM.PN ---
Subjective - Date & Time of Evaluation Date of Evaluation: 10/25/17 Time of Evaluation: 14:15 - Subjective Subjective: being transferred to [place] [facility] Objective - Vital Signs/Intake and Output Vital Signs (last 24 hours): Temp Pulse Resp BP Pulse Ox 97.4 F L 71 18 131/77 99 10/25/17 13:00 10/25/17 13:00 10/25/17 13:00 10/25/17 13:00 10/25/17 13:00 Intake and Output: 10/25/17 10/25/17 06:59 18:59 Intake Total 130 Balance 130 - Labs Labs: 10/25/17 06:05 10/24/17 06:28 - Constitutional Appears: Well - Head Exam Head Exam: ATRAUMATIC, NORMAL INSPECTION, NORMOCEPHALIC - Eye Exam Eye Exam: EOMI, Normal appearance, PERRL Pupil Exam: NORMAL ACCOMODATION, PERRL - ENT Exam ENT Exam: Mucous Membranes Moist, Normal Exam - Neck Exam Neck Exam: Full ROM, Normal Inspection. absent: Lymphadenopathy - Respiratory Exam Respiratory Exam: Clear to Ausculation Bilateral, NORMAL BREATHING PATTERN - Cardiovascular Exam Cardiovascular Exam: REGULAR RHYTHM, +S1, +S2, Murmur - GI/Abdominal Exam GI & Abdominal Exam: Soft, Normal Bowel Sounds. absent: Tenderness - Extremities Exam Extremities Exam: Full ROM, Normal Capillary Refill, Normal Inspection. absent : Joint Swelling, Pedal Edema - Back Exam Back Exam: NORMAL INSPECTION - Neurological Exam Neurological Exam: Alert, Awake, CN II-XII Intact, Normal Gait, Oriented x3 - Psychiatric Exam Psychiatric exam: Normal Affect, Normal Mood - Skin Skin Exam: Dry, Intact, Normal Color, Warm Assessment and Plan (1) Acute exacerbation of congestive heart failure Status: Acute (2) Sepsis Status: Acute (3) Suspected urinary tract infection Status: Acute (4) Leukocytosis Status: Acute (5) V-tach Status: Acute (6) CAD (coronary artery disease) Status: Chronic (7) CHF (congestive heart failure) Status: Chronic (8) Pulmonary arterial hypertension Status: Chronic
--- NOTE | 2017-10-25 14:15 | CP.PCM.PN ---
Subjective - Date & Time of Evaluation Date of Evaluation: 10/23/17 Time of Evaluation: 14:13 - Subjective Subjective: sob improving Objective - Vital Signs/Intake and Output Vital Signs (last 24 hours): Temp Pulse Resp BP Pulse Ox 97.4 F L 71 18 131/77 99 10/25/17 13:00 10/25/17 13:00 10/25/17 13:00 10/25/17 13:00 10/25/17 13:00 Intake and Output: 10/25/17 10/25/17 06:59 18:59 Intake Total 130 Balance 130 - Labs Labs: 10/25/17 06:05 10/24/17 06:28 - Constitutional Appears: Well - Head Exam Head Exam: ATRAUMATIC, NORMAL INSPECTION, NORMOCEPHALIC - Eye Exam Eye Exam: EOMI, Normal appearance, PERRL Pupil Exam: NORMAL ACCOMODATION, PERRL - ENT Exam ENT Exam: Mucous Membranes Moist, Normal Exam - Neck Exam Neck Exam: Full ROM, Normal Inspection. absent: Lymphadenopathy - Respiratory Exam Respiratory Exam: Clear to Ausculation Bilateral, NORMAL BREATHING PATTERN - Cardiovascular Exam Cardiovascular Exam: REGULAR RHYTHM, +S1, +S2, Murmur - GI/Abdominal Exam GI & Abdominal Exam: Soft, Normal Bowel Sounds. absent: Tenderness - Extremities Exam Extremities Exam: Full ROM, Normal Capillary Refill, Normal Inspection. absent : Joint Swelling, Pedal Edema - Back Exam Back Exam: NORMAL INSPECTION - Neurological Exam Neurological Exam: Alert, Awake, CN II-XII Intact, Normal Gait, Oriented x3 - Psychiatric Exam Psychiatric exam: Normal Affect, Normal Mood - Skin Skin Exam: Dry, Intact, Normal Color, Warm Assessment and Plan (1) Acute exacerbation of congestive heart failure Status: Acute (2) Sepsis Status: Acute (3) Suspected urinary tract infection Status: Acute (4) Leukocytosis Status: Acute (5) V-tach Status: Acute (6) CAD (coronary artery disease) Status: Chronic (7) CHF (congestive heart failure) Status: Chronic (8) Pulmonary arterial hypertension Status: Chronic
--- NOTE | 2017-10-25 15:13 | CP.PCM.DIS ---
Provider - Provider Date of Admission: 10/02/17 18:05 Attending physician: Sotero Bajwa DO Primary care physician: PMD: Dr. Gomez Consults: Dr. Da Silva: cardiology Dr. Gomez: pulmonary Dr. West: infectious disease Dr. Anderson: PROCESS OWNER Time Spent in preparation of Discharge (in minutes): 25 Hospital Course - Lab Results Lab Results: Micro Results 10/24/17 14:47 Urine Urine Culture - Final No Growth (<1,000 CFU/ML) 10/23/17 10:30 Blood-Venous Blood Culture - Preliminary NO GROWTH AFTER 48 HOURS 10/23/17 10:30 Blood-Venous Blood Culture - Preliminary NO GROWTH AFTER 48 HOURS 10/15/17 10:52 Blood-Venous Blood Culture - Final NO GROWTH AFTER 5 DAYS 10/15/17 10:52 Blood-Venous Gram Stain - Final TEST NOT PERFORMED 10/03/17 13:30 Sputum Gram Stain - Final 10/03/17 13:30 Sputum Sputum Culture - Final NORMAL ORAL ELMER 10/02/17 18:20 Urine Urine Culture - Final Klebsiella Pneumoniae Ssp Pneu 10/02/17 18:20 Blood Blood Culture - Final Klebsiella Pneumoniae Ssp Pneu 10/02/17 18:20 Blood Gram Stain - Final Most Recent Lab Values WBC 11.1 K/uL (4.8-10.8) H 10/25/17 06:05 RBC 2.91 Mil/uL (3.80-5.20) L 10/25/17 06:05 Hgb 9.4 g/dL (12.0-16.0) L 10/25/17 06:05 Hct 28.3 % (34.0-47.0) L 10/25/17 06:05 MCV 97.2 fl (81.0-99.0) 10/25/17 06:05 MCH 32.3 pg (27.0-31.0) H 10/25/17 06:05 MCHC 33.2 g/dL (33.0-37.0) 10/25/17 06:05 RDW 15.0 % (11.5-14.5) H 10/25/17 06:05 Plt Count 164 K/uL (130-400) 10/25/17 06:05 MPV 9.0 fl (7.2-11.7) 10/25/17 06:05 Neut % (Auto) 74.9 % (50.0-75.0) 10/25/17 06:05 Lymph % (Auto) 12.7 % (20.0-40.0) L 10/25/17 06:05 Crawford % (Auto) 8.0 % (0.0-10.0) 10/25/17 06:05 Eos % (Auto) 3.4 % (0.0-4.0) 10/25/17 06:05 Baso % (Auto) 1.0 % (0.0-2.0) 10/25/17 06:05 Neut # (Auto) 8.3 K/uL (1.8-7.0) H 10/25/17 06:05 Lymph # (Auto) 1.4 K/uL (1.0-4.3) 10/25/17 06:05 Crawford # (Auto) 0.9 K/uL (0.0-0.8) H 10/25/17 06:05 Eos # (Auto) 0.4 K/uL (0.0-0.7) 10/25/17 06:05 Baso # (Auto) 0.1 K/uL (0.0-0.2) 10/25/17 06:05 Neutrophils % (Manual) 88 % (42-75) H 10/11/17 04:20 Band Neutrophils % 1 % (0-2) 10/11/17 04:20 Lymphocytes % (Manual) 5 % (20-50) L 10/11/17 04:20 Monocytes % (Manual) 4 % (0-10) 10/11/17 04:20 Metamyelocytes % 1 % (0-0) H 10/11/17 04:20 Myelocytes % 1 % (0-0) H 10/11/17 04:20 Nucleated RBC % 111 % (0-0) H 10/05/17 05:00 Toxic Granulation Present 10/11/17 04:20 Platelet Estimate Normal (NORMAL) 10/11/17 04:20 Large Platelets Present 10/08/17 05:09 Giant Platelets Present 10/08/17 05:09 Hypochromasia (manual) Slight 10/08/17 05:09 Poikilocytosis (manual Slight 10/08/17 05:09 Anisocytosis (manual) Slight 10/08/17 05:09 Tear Drop Cells Slight 10/08/17 05:09 Ovalocytes Slight 10/11/17 04:20 Schistocytes Slight 10/03/17 05:58 pCO2 38 mm/Hg (35-45) 10/15/17 09:50 pO2 87 mm/Hg (80-100) 10/15/17 09:50 HCO3 32.1 mmol/L (21-28) H 10/15/17 09:50 ABG pH 7.54 (7.35-7.45) H 10/15/17 09:50 ABG Total CO2 33.7 mmol/L (22-28) H 10/15/17 09:50 ABG O2 Saturation 98.5 % (95-98) H 10/15/17 09:50 ABG O2 Content 14.5 ML/dL (15-23) L 10/15/17 09:50 ABG Base Excess 9.3 mmol/L (-2.0-3.0) H 10/15/17 09:50 ABG Hemoglobin 10.8 g/dL (11.7-17.4) L 10/15/17 09:50 ABG Carboxyhemoglobin 1.9 % (0.5-1.5) H 10/15/17 09:50 POC ABG HHb (Measured) 1.4 % (0.0-5.0) 10/15/17 09:50 ABG Methemoglobin 1.6 % (0.0-3.0) 10/15/17 09:50 ABG O2 Capacity 14.7 mL/dL (16-24) L 10/15/17 09:50 Baljeet Test Yes 10/15/17 09:50 ABG Potassium 3.9 mmol/L (3.6-5.2) 10/02/17 16:48 VBG pH 7.42 (7.32-7.43) 10/02/17 19:59 VBG pCO2 35 mmHg (40-60) L 10/02/17 19:59 VBG HCO3 23.7 mmol/L 10/02/17 19:59 VBG Total CO2 23.8 mmol/L (22-28) 10/02/17 19:59 VBG O2 Sat (Calc) 95.4 % (40-65) H 10/02/17 19:59 VBG Base Excess -1.3 mmol/L (0.0-2.0) L 10/02/17 19:59 VBG Potassium 3.6 mmol/L (3.6-5.2) 10/02/17 19:59 A-a O2 Difference 65.0 mm/Hg 10/15/17 09:50 Hgb O2 Saturation 95.1 % (95.0-98.0) 10/15/17 09:50 Sodium 134.0 mmol/L (132-148) 10/02/17 19:59 Chloride 106.0 mmol/L (98-107) 10/02/17 19:59 Glucose 158 mg/dL (65-105) H 10/02/17 19:59 Lactate 2.1 mmol/L (0.7-2.1) 10/02/17 19:59 FiO2 28.0 % 10/15/17 09:50 Blood Gas Comments 2l/m nc,rr 10/15/17 09:50 Crit Value Called To david Castellon 10/02/17 19:59 Crit Value Called By Kingsley steve 10/02/17 19:59 Crit Value Read Back Y 10/02/17 19:59 Blood Gas Notified Time 200710/02/17 19:59 Sodium 139 mmol/l (132-148) 10/24/17 06:28 Potassium 4.1 MMOL/L (3.6-5.0) 10/24/17 06:28 Chloride 104 mmol/L (98-107) 10/24/17 06:28 Carbon Dioxide 26 mmol/L (22-30) 10/24/17 06:28 Anion Gap 13 (10-20) 10/24/17 06:28 BUN 16 mg/dl (7-17) 10/24/17 06:28 Creatinine 1.2 mg/dl (0.7-1.2) 10/24/17 06:28 Est GFR ( Amer) 52 10/24/17 06:28 Est GFR (Non-Af Amer) 43 10/24/17 06:28 POC Glucose (mg/dL) 159 mg/dL (65-110) H 10/05/17 17:41 Random Glucose 99 mg/dL (65-105) 10/24/17 06:28 Lactic Acid 2.6 MMOL/L (0.7-2.1) H 10/02/17 22:00 Calcium 8.9 mg/dL (8.4-10.2) 10/24/17 06:28 Phosphorus 2.7 mg/dl (2.5-4.5) 10/14/17 09:22 Magnesium 1.8 MG/DL (1.6-2.3) 10/15/17 05:23 Total Bilirubin 0.6 mg/dl (0.2-1.3) 10/04/17 05:31 AST 58 U/L (14-36) H 10/04/17 05:31 ALT 57 U/L (9-52) H 10/04/17 05:31 Alkaline Phosphatase 50 U/L (38-126) 10/04/17 05:31 Troponin I 0.0240 ng/mL (0.00-0.120) 10/09/17 15:21 NT-Pro-B Natriuret Pep 81761 pg/ml (0-900) H 10/13/17 17:10 Total Protein 6.0 G/DL (6.3-8.2) L 10/04/17 05:31 Albumin 3.1 g/dL (3.5-5.0) L 10/04/17 05:31 Globulin 2.9 gm/dL (2.2-3.9) 10/04/17 05:31 Albumin/Globulin Ratio 1.1 (1.0-2.1) 10/04/17 05:31 Amylase 92 U/L (30-110) 10/02/17 15:35 Lipase 68 U/L (23-300) 10/02/17 15:35 Procalcitonin 0.10 NG/ML (0.19-0.49) L 10/16/17 04:40 Arterial Blood Potassium 3.9 mmol/L (3.6-5.2) 10/02/17 16:48 Venous Blood Potassium 3.6 mmol/L (3.6-5.2) 10/02/17 19:59 Urine Color Yellow (YELLOW) 10/24/17 14:47 Urine Clarity Clear (Clear) 10/24/17 14:47 Urine pH 6.0 (5.0-8.0) 10/24/17 14:47 Ur Specific Tiller 1.009 (1.003-1.030) 10/24/17 14:47 Urine Protein Negative mg/dL (NEGATIVE) 10/24/17 14:47 Urine Glucose (UA) Neg mg/dL (Normal) 10/24/17 14:47 Urine Ketones Negative mg/dL (NEGATIVE) 10/24/17 14:47 Urine Blood Negative (NEGATIVE) 10/24/17 14:47 Urine Nitrate Negative (NEGATIVE) 10/24/17 14:47 Urine Bilirubin Negative (NEGATIVE) 10/24/17 14:47 Urine Urobilinogen 0.2-1.0 mg/dL (0.2-1.0) 10/24/17 14:47 Ur Leukocyte Esterase Neg Kj/uL (Negative) 10/24/17 14:47 Urine RBC (Auto) 3 /hpf (0-3) 10/24/17 14:47 Urine WBC Clumps (Auto) Few /hpf (NONE) H 10/02/17 18:20 Urine Microscopic WBC 4 /hpf (0-5) 10/24/17 14:47 Ur Squamous Epith Cells 1 /hpf (0-5) 10/16/17 06:39 Ur Transition Epith Cell 1 /hpf (0-3) 10/02/17 18:20 Amorphous Sediment Moderate /ul (<OCC) H 10/02/17 18:20 Urine Bacteria Rare (<OCC) 10/16/17 06:39 Hyaline Casts >20 /hpf (0-2) H 10/24/17 14:47 Stool Occult Blood Negative (NEGATIVE) 10/07/17 09:48 Vancomycin Trough 19.2 ug/mL (5.0-10.0) H 10/19/17 04:20 Random Vancomycin 9.7 ug/mL 10/16/17 18:13 Ur L.pneumophila Ag Negative (NEGATIVE) 10/03/17 13:30 Mycoplasma pneumon IgG >5.00 (<=0.90) H 10/03/17 12:42 Mycoplasma pneumon IgM 67 U/mL (<770) 10/03/17 12:42 Ur Strep pneumoniae Ag Not detected 10/03/17 13:30 - Hospital Course Hospital Course: 81 yo female with history of Cardiomyopathy with AICD, Pulmonary HTN, COPD, HTN , HLD, Hypothyroidism, Osteoporosis, RA and CKD stage III admitted on 10/02/17 with Sepsis secondary to UTI. During her complicated, long course of stay the patient received Vanc/Zosyn for drug resistent antibacterial coverage of her UTI. Her sepsis slowly improved over the course of stay. She had significant leukocytosis which very slowly improved. The patient also had periodical hypotension and so Ranexa and Sildenafil were discontinued. The patient was followed by cardiology, Dr. Da Silva, who initially placed the patient on a Milrinone drip. However the patient's blood pressure has remained stable off of the drip for about a week. The patient has also been very deconditioned and physical therapy has been working with her, although the progress has been slow. Awaiting brother for discharge to [facility], planned for 10/25. 1. Sepsis, resolved Klebsiella bacteremia hx Reculture urine, blood, sputum, so far cultures negative x 24 hours Started on Omnicef as per Dr. Gomez. Was previously on Zosyn and Vanco. She is to take Omnicef at [facility] for [address] West on ID consult Overall appears fatigued, chronically ill patient. 2. UTI resolved Received courses of both Vanc/Zosyn as well as a full course of Rocephin. 3. COPD exacerbation- resolved continue Duoneb prn 4. Cardiomyopathy- chronic, stable CXray: mild pulmonary congestion ProBNP: [id number] Dr Da Silva on cardiology consult Milrinone drip D/C PER cardiology Lasix 40mg PO daily resumed 5. Acute on CKD stage III renal function improved resume lasix 6. Deconditioning Continue PT out of bed to chair activity Will require extensive physical therapy at [facility]. 7. Sciatica, chronic low back pain - Added Motrin 400 mg po q 6 hours PRN, should be given only short term - Warm compress PRN - PT consultation 8. Vaginal bleed- long since resolved - was evaluated by Dr. Anderson, PROCESS OWNER - transvaginal US WNL - should f/u with cover operator upon discharge from [facility] Discharge Exam - Head Exam Head Exam: ATRAUMATIC, NORMAL INSPECTION, NORMOCEPHALIC - Additional Findings Additional findings: Physical exam: Constitutional- cooperative, awake though lethargic Head- NCAT, PERRL Eye- PERRL, EOMI ENT- normal exam, MMM. No erythema noted. Neck- normal inspection, supple, no JVD Respiratory- CTAB, no wheezes rales rhonchi. + occ dry cough Cardiovascular- RRR, +S1, +S2 no MRG GI/Abdominal- normal bowel sounds, soft, no mass, no hsm. + incontinent Skin- warm, dry Extremities Exam- +1 bilateral lower extremity edema. normal capillary refill, normal inspection Neurological Exam- alert, awake, oriented Psych- normal mood, normal affect Discharge Plan - Follow Up Plan Condition: STABLE Disposition: REHAB FACILITY/REHAB UNIT Instructions: Sepsis in Adults, Acute Abdomen (Belly Pain), Adult (DC), Preventing Falls Additional Instructions: discharge patient to subacute for further care.
== END 2017-10-25 14:09 | DRG 871 ==
LOC: H.ER 14:37 → H.ERHOLD 18:05 → H.TEL 21:51
PROVIDERS: ADMIT Internal Medicine; ATTEND Internal Medicine
PROC: 02HV33Z Insertion of Infusion Device into Superior Vena Cava, Percutaneous Approach (ICD-10-PCS; principal; 2017-10-18)
PROC: B518ZZA Fluoroscopy of Superior Vena Cava, Guidance (ICD-10-PCS; 2017-10-18)
PROC: 3E04329 Introduction of Other Anti-infective into Central Vein, Percutaneous Approach (ICD-10-PCS; 2017-10-18)
DX: A41.59 Other Gram-negative sepsis (principal); J15.9 Unspecified bacterial pneumonia; N17.9 Acute kidney failure, unspecified; I13.0 Hypertensive heart and chronic kidney disease with heart failure and stage 1 through stage 4 chronic kidney disease, or unspecified chronic kidney disease; I50.42 Chronic combined systolic (congestive) and diastolic (congestive) heart failure; N13.6 Pyonephrosis; J44.0 Chronic obstructive pulmonary disease with (acute) lower respiratory infection; J44.1 Chronic obstructive pulmonary disease with (acute) exacerbation; N39.0 Urinary tract infection, site not specified; I47.2 Ventricular tachycardia; B37.0 Candidal stomatitis; N18.3 Chronic kidney disease, stage 3 (moderate); R65.20 Severe sepsis without septic shock; J20.9 Acute bronchitis, unspecified; I48.2 Chronic atrial fibrillation; I25.5 Ischemic cardiomyopathy; I27.21 Secondary pulmonary arterial hypertension; I25.10 Atherosclerotic heart disease of native coronary artery without angina pectoris; E87.6 Hypokalemia; N93.8 Other specified abnormal uterine and vaginal bleeding; B96.1 Klebsiella pneumoniae [K. pneumoniae] as the cause of diseases classified elsewhere; G89.29 Other chronic pain; K59.09 Other constipation; F41.9 Anxiety disorder, unspecified; E78.5 Hyperlipidemia, unspecified; E78.00 Pure hypercholesterolemia, unspecified; M06.9 Rheumatoid arthritis, unspecified; M81.0 Age-related osteoporosis without current pathological fracture; M54.40 Lumbago with sciatica, unspecified side; I25.2 Old myocardial infarction; E03.9 Hypothyroidism, unspecified; Z79.811 Long term (current) use of aromatase inhibitors; Z79.82 Long term (current) use of aspirin; Z95.810 Presence of automatic (implantable) cardiac defibrillator; Z95.5 Presence of coronary angioplasty implant and graft; Z85.3 Personal history of malignant neoplasm of breast; Z90.12 Acquired absence of left breast and nipple; Z87.01 Personal history of pneumonia (recurrent); Z86.73 Personal history of transient ischemic attack (TIA), and cerebral infarction without residual deficits; Z87.442 Personal history of urinary calculi; Z87.891 Personal history of nicotine dependence; Z74.01 Bed confinement status

== ENCOUNTER 2018-05-17 17:09 | Emergency (ER) | payer MEDICARE ==
[2018-05-17 17:12] VITALS: BMI 29.2
--- NOTE | 2018-05-17 19:40 | ED PDOC ---
HPI: SOB/CHF/COPD Time Seen by Provider: 05/17/18 17:44 Chief Complaint (Nursing): Anxiety Chief Complaint (Provider): shortness of breath History Per: Patient History/Exam Limitations: no limitations Onset/Duration Of Symptoms: Days (x1) Current Symptoms Are (Timing): Still Present Additional Complaint(s): 82 year old female with past history of CHF and left-sided breast cancer, presents to the emergency department for an evaluation of difficult breathing and wheezing for 1 day. Additionally, she reports increased feelings of anxiety and trouble sleeping. She denies any fever, chills, or vomiting. PCP: Dr. 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), HTN, Hypercholesterolemia, Hyperlipidemia, Hypothyroidism, Osteoporosis, Peripheral Edema, Pneumonia, Rheumatoid Arthritis, TIA Denies: Alzheimer's Disease, Anemia, Anxiety, Asthma, Atrial Fibrillation, Bipolar Disorder, Crohn's Disease, Dementia, Depression, Diverticulitis, Emphysema, Fractures, Gastritis, Gall Bladder Disease, HIV, Kidney Stones, Migraine, Mitral Valve Prolapse, Multiple Sclerosis, Pancreatitis, Paranoia, Parkinson's Disease, Post Traumatic Stress Disorder, Pulmonary Embolism, Chronic Kidney Disease, Schizophrenia, Seizures, Sickle Cell Disease, Sexually Transmitted Disease, Sleep Apnea - Surgical History Surgical History: Appendectomy, Cholecystectomy, Coronary Stent, Pacemaker (AICD), Tonsillectomy Denies: CABG, Carotid Endarterectomy - Family History Family History: States: Unknown Family Hx - Immunization History Hx Tetanus Toxoid Vaccination: No Hx Influenza Vaccination: No Hx Pneumococcal Vaccination: No - Home Medications Home Medications: Ambulatory Orders Medication Instructions Recorded Ascorbic Acid [Vitamin C] 500 mg PO DAILY 04/29/16 Multivit-Min/FA/Lycopen/Lutein 1 tab PO DAILY 04/29/16 [Centrum Silver Tablet] Anastrozole [Arimidex] 1 mg PO DAILY #30 tablet 12/09/16 Aspirin [Ecotrin] 81 mg PO DAILY #30 tabec 12/09/16 Losartan [Cozaar] 25 mg PO DAILY #30 tab 12/09/16 Levothyroxine [Synthroid] 25 mcg PO DAILY@0630 tab 12/19/16 Atorvastatin [Lipitor] 20 mg PO HS 04/15/17 Cholecalciferol [Vitamin D 1000 IU] 1,000 unit PO DAILY 04/15/17 Vitamin E [Vitamin E 400 Units Cap] 400 unit PO DAILY 04/15/17 Memantine [Namenda] 10 mg PO DAILY tab 05/08/17 Docusate [Colace] 200 mg PO DAILY cap 07/02/17 Lactulose [Enulose] 20 gm PO DAILY PRN udc 07/02/17 Amiodarone [Cordarone] 100 mg PO DAILY 10/02/17 Furosemide [Lasix] 20 mg PO DAILY 10/02/17 Metoprolol Succinate XL [Toprol XL] 25 mg PO DAILY 10/02/17 Acetaminophen [Tylenol 325mg tab] 650 mg PO Q6 PRN tab 10/25/17 Acetaminophen [Tylenol 325mg tab] 650 mg PO Q6 PRN tab 10/25/17 Albuterol 0.083% [Albuterol 0.083% 2.5 mg INH RQ4 PRN neb 10/25/17 Inhal Shu (2.5 mg/3 ml) UD] Bisacodyl [Dulcolax] 10 mg MD DAILY PRN sup 10/25/17 Cefdinir [Omnicef] 300 mg PO BID 7 Days #14 cap 10/25/17 Ibuprofen [Motrin Tab] 400 mg PO Q6 PRN tab 10/25/17 Sodium Chloride for Inhalation 4 ml IH ONCE PRN vial.neb 10/25/17 [Sodium Chloride 3% for Inhalation] Sodium Chloride for Inhalation 4 ml IH ONCE PRN vial.neb 10/25/17 [Sodium Chloride 3% for Inhalation] guaiFENesin [Mucinex LA] 600 mg PO Q12 tab 10/25/17 traMADol [Ultram] 50 mg PO Q4 PRN #10 tab 10/25/17 - Allergies Allergies/Adverse Reactions: Allergies Allergy/AdvReac Type Severity Reaction Status Date / Time No Known Allergies Allergy Verified 05/17/18 17:12 Review of Systems ROS Statement: Except As Marked, All Systems Reviewed And Found Negative Constitutional: Negative for: Fever, Chills Respiratory: Positive for: Shortness of Breath, Wheezing Gastrointestinal: Negative for: Vomiting Psych: Positive for: Anxiety Physical Exam - Reviewed Nursing Documentation Reviewed: Yes Vital Signs Reviewed: Yes - Physical Exam Appears: Positive for: Non-toxic, No Acute Distress Head Exam: Positive for: ATRAUMATIC, NORMAL INSPECTION, NORMOCEPHALIC Skin: Positive for: Normal Color Eye Exam: Positive for: Normal appearance, EOMI, PERRL ENT: Positive for: Normal ENT Inspection Neck: Positive for: Normal Cardiovascular/Chest: Positive for: Regular Rate, Rhythm, Chest Non Tender Respiratory: Positive for: Normal Breath Sounds. Negative for: Wheezing, Respiratory Distress Gastrointestinal/Abdominal: Positive for: Normal Exam, Soft. Negative for: Tenderness Extremity: Positive for: Normal ROM (upper/lower). Negative for: Pedal Edema, Calf Tenderness Neurologic/Psych: Positive for: Alert, Oriented. Negative for: Motor/Sensory Deficits - Laboratory Results Result Diagrams: 05/17/18 22:37 05/17/18 22:37 - ECG O2 Sat by Pulse Oximetry: 98 (RA) Pulse Ox Interpretation: Normal Medical Decision Making Medical Decision Making: Time: 2038 Initial Plan: * Labs with UA, crisis eval * Time: 2299 --Patient is signed out to Dr. Smith, pending labs results and final disposition. Scribe Attestation: Documented by Ammy Jacobs, acting as a scribe for Melanie Lamb MD. Provider Scribe Attestation: All medical record entries made by the Scribe were at my direction and personally dictated by me. I have reviewed the chart and agree that the record accurately reflects my personal performance of the history, physical exam, medical decision making, and the department course for this patient. I have also personally directed, reviewed, and agree with the discharge instructions and disposition. Disposition - Clinical Impression Clinical Impression: Anxiety, Shortness of breath - Patient ED Disposition Is Patient to be Admitted: Transfer of Care - Disposition Disposition: Transfer of Care Disposition Time: 23:26 Condition: STABLE Forms: [employer] (Faroese) Patient Signed Over To: Bonifacio Smith
[2018-05-17 21:58] VITALS: PULSE 60; RESP 18
[2018-05-17 22:47] LABS: BASO # 0.1 K/uL (0.0-0.2); BASO % 0.8 % (0.0-2.0); EOS # 0.1 K/uL (0.0-0.7); EOS % 0.6 % (0.0-4.0); HEMOGLOBIN 13.4 g/dL (12.0-16.0); LYMPH # 2.2 K/uL (1.0-4.3); LYMPH % 18.3 % (20.0-40.0); MEAN CELL VOLUME 98.2 fl (81.0-99.0); MEAN CORPUSCULAR HEMOGLOBIN 31.3 pg (27.0-31.0); MEAN CORPUSCULAR HGB CONC 31.9 g/dL (33.0-37.0); MONO # 1.3 K/uL (0.0-0.8); NEUT # 8.4 K/uL (1.8-7.0); NEUT % 69.3 % (50.0-75.0); RBC 4.27 Mil/uL (3.80-5.20); RED CELL DISTRIBUTION WIDTH 14.6 % (11.5-14.5); WHITE BLOOD COUNT 12.1 K/uL (4.8-10.8)
[2018-05-17 22:59] LABS: CALCIUM 9.5 mg/dL (8.4-10.2)
[2018-05-17 23:03] LABS: ALB/GLOB RATIO 1.3 (1.0-2.1); ALBUMIN 4.1 g/dL (3.5-5.0)
[2018-05-17 23:26] LABS: SQUAMOUS EPITHIAL 1 /hpf (0-5); URINE BACTERIA FEW (<OCC); URINE BILIRUBIN NEGATIVE (NEGATIVE); URINE BLOOD NEGATIVE (NEGATIVE); URINE CLARITY SLIGHTY-CLOUDY (Clear); URINE COLOR YELLOW (YELLOW); URINE GLUCOSE (UA) NEG (NEGATIVE); URINE HYALINE CAST 0-2 /hpf (0-2); URINE LEUKOCYTE ESTERASE MOD Leu/uL (Negative); URINE PROTEIN NEGATIVE (NEGATIVE); URINE UROBILINOGEN 0.2-1.0 mg/dL (0.2-1.0)
--- NOTE | 2018-05-17 23:29 | ED PDOC ---
- Laboratory Results Result Diagrams: 05/17/18 22:37 05/17/18 22:37 Lab Results: Total Bilirubin 0.6 mg/dl (0.2-1.3) 05/17/18 22:37 AST 38 U/L (14-36) H D 05/17/18 22:37 ALT 33 U/L (9-52) 05/17/18 22:37 Alkaline Phosphatase 36 U/L (38-126) L D 05/17/18 22:37 Total Protein 7.3 G/DL (6.3-8.2) 05/17/18 22:37 Albumin 4.1 g/dL (3.5-5.0) 05/17/18 22:37 Globulin 3.3 gm/dL (2.2-3.9) 05/17/18 22:37 Albumin/Globulin Ratio 1.3 (1.0-2.1) 05/17/18 22:37 - ECG O2 Sat by Pulse Oximetry: 98 (RA) Pulse Ox Interpretation: Normal Medical Decision Making Medical Decision Makin:00 Patient is transferred to this provider by Dr. Lamb pending urine culture, urine dip and crisis evaluation due to reported history of anxiety. Patient d enies suicidal ideation. 00:29 Patient was evaluated by crisis and diagnosed with anxiety. Labs reviewed and reveal no significant findings with the exception of a UTI. She is stable and will be discharged with a prescription for Macrobid. Scribe Attestation: Documented by Josselyn Lane acting as a scribe for Bonifacio Smith MD Provider Scribe Attestation: All medical record entries made by the Scribe were at my direction and personally dictated by me. I have reviewed the chart and agree that the record accurately reflects my personal performance of the history, physical exam, medical decision making, and the department course for this patient. I have also personally directed, reviewed, and agree with the discharge instructions and disposition. Disposition - Clinical Impression Clinical Impression: Anxiety, UTI (urinary tract infection) - POA Present On Arrival: None - Disposition Disposition: Routine/Home Disposition Time: 00:29 Condition: STABLE Prescriptions: Nitrofurantoin Macrocrystals [Macrobid] 100 mg PO BID #14 cap Instructions: Urinary Tract Infection, Adult (DC), Anxiety, Adult (DC) Forms: [employer] (Wolof)
--- NOTE | 2018-05-18 08:28 | RAD ---
Date of service: 05/17/2018 HISTORY: shortness of breath COMPARISON: 10/22/2017 TECHNIQUE: Chest PA and lateral FINDINGS: LUNGS: No active pulmonary disease. PLEURA: No significant pleural effusion identified. No pneumothorax apparent. CARDIOVASCULAR: There is presence of aortic atherosclerotic calcification on x-ray. Minimal cardiomegaly. AICD device in place-position satisfactory appearing-no change. No significant appearing pulmonary venous congestion. OSSEOUS STRUCTURES: Thoraco lumbar spondylosis. Bilateral shoulder arthrosis. VISUALIZED UPPER ABDOMEN: Normal. OTHER FINDINGS: Status post apparent left mastectomy with left lateral axillary dissection clips. IMPRESSION: No interval pathology noted. Other findings as above.
[2018-05-18 09:22] VITALS: BP 121/80; TEMP 97.4
[2018-05-18 23:06] VITALS: O2SAT 98
== END 2018-05-18 04:47 | disposition home or self-care (01) ==
LOC: H.ER 17:09
DX: F41.9 Anxiety disorder, unspecified (principal); R06.02 Shortness of breath; I11.0 Hypertensive heart disease with heart failure; I25.10 Atherosclerotic heart disease of native coronary artery without angina pectoris; J44.9 Chronic obstructive pulmonary disease, unspecified; M06.9 Rheumatoid arthritis, unspecified; M81.0 Age-related osteoporosis without current pathological fracture; Z85.3 Personal history of malignant neoplasm of breast; Z86.73 Personal history of transient ischemic attack (TIA), and cerebral infarction without residual deficits; Z95.5 Presence of coronary angioplasty implant and graft; Z95.810 Presence of automatic (implantable) cardiac defibrillator; Z95.0 Presence of cardiac pacemaker; Z79.82 Long term (current) use of aspirin; E78.00 Pure hypercholesterolemia, unspecified; E03.9 Hypothyroidism, unspecified

== ENCOUNTER 2018-05-21 11:46 | Inpatient (IN) | payer MEDICARE ==
[2018-05-21] MEDS ORDERED: Sodium Chloride 0.9% 1,000 ML IV STA (12:58)
--- NOTE | 2018-05-21 13:08 | ED PDOC ---
HPI: Female Pain Time Seen by Provider: 05/21/18 12:15 Chief Complaint (Nursing): Female Genitourinary Chief Complaint (Provider): Change in Antibiotic for UTI History Per: Patient History/Exam Limitations: no limitations Onset/Duration Of Symptoms: Days (x4) Current Symptoms Are (Timing): Still Present Additional Complaint(s): 82 year old female returns to the ED for change in antibiotic treatment for her UTI. Patient reports that on 05/17 she was seen here, diagnosed with a UTI, and given macrobid. Her cultures came back and showed the bacteria was macrobid resi stant, and when she was called, she stated her UTI symptoms were continuing along with the development of loose to watery diarrhea multiple times a day which makes her feel dehydrated. Dr. Gomez called and stated that patient is to be admitted for IV antibiotic treatment. Additionally, patient reports she woke up last night with a cough, but denies chest pain and shortness of breath. 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), Hypercholesterolemia, Hyperlipidemia, Hypothyroidism, Osteoporosis, Peripheral Edema, Pneumonia, Rheumatoid Arthritis, TIA Denies: Alzheimer's Disease, Anemia, Anxiety, Asthma, Atrial Fibrillation, Bipolar Disorder, Crohn's Disease, Dementia, Depression, Diabetes, Diverticulitis, Emphysema, Fractures, Gastritis, Gall Bladder Disease, Hepatitis, HIV, HTN, Kidney Stones, Migraine, Mitral Valve Prolapse, Multiple Sclerosis, Pancreatitis, Paranoia, Parkinson's Disease, Post Traumatic Stress Disorder, Pulmonary Embolism, Chronic Kidney Disease, Schizophrenia, Seizures, Sickle Cell Disease, Sexually Transmitted Disease, Sleep Apnea - Surgical History Surgical History: Appendectomy, Cholecystectomy, Coronary Stent, Pacemaker (AICD), Tonsillectomy Denies: CABG, Carotid Endarterectomy - Family History Family History: States: Unknown Family Hx - Social History Current smoker - smoking cessation education provided: No Ex-Smoker (has not smoked in the last 12 months): Yes Alcohol: None Drugs: Denies - Immunization History Hx Tetanus Toxoid Vaccination: No Hx Influenza Vaccination: No Hx Pneumococcal Vaccination: No - Home Medications Home Medications: Ambulatory Orders Medication Instructions Recorded Ascorbic Acid [Vitamin C] 500 mg PO DAILY 04/29/16 Multivit-Min/FA/Lycopen/Lutein 1 tab PO DAILY 04/29/16 [Centrum Silver Tablet] Anastrozole [Arimidex] 1 mg PO DAILY #30 tablet 12/09/16 Aspirin [Ecotrin] 81 mg PO DAILY #30 tabec 12/09/16 Losartan [Cozaar] 25 mg PO DAILY #30 tab 12/09/16 Levothyroxine [Synthroid] 25 mcg PO DAILY@0630 tab 12/19/16 Atorvastatin [Lipitor] 20 mg PO HS 04/15/17 Cholecalciferol [Vitamin D 1000 IU] 1,000 unit PO DAILY 04/15/17 Vitamin E [Vitamin E 400 Units Cap] 400 unit PO DAILY 04/15/17 Memantine [Namenda] 10 mg PO DAILY tab 05/08/17 Docusate [Colace] 200 mg PO DAILY cap 07/02/17 Lactulose [Enulose] 20 gm PO DAILY PRN udc 07/02/17 Amiodarone [Cordarone] 100 mg PO DAILY 10/02/17 Furosemide [Lasix] 20 mg PO DAILY 10/02/17 Metoprolol Succinate XL [Toprol XL] 25 mg PO DAILY 10/02/17 Calcium Carbonate/Vitamin D3 1 each PO DAILY 05/21/18 [Caltrate 600 + D Tablet] Lidocaine 5% [Lidoderm] 1 patch TP DAILY 05/21/18 Potassium Chloride [K-Dur 20] 20 meq PO DAILY 05/21/18 Sildenafil [Revatio] 20 mg PO TTS 05/21/18 traMADol [Ultram] 50 mg PO DAILY 05/21/18 - Allergies Allergies/Adverse Reactions: Allergies Allergy/AdvReac Type Severity Reaction Status Date / Time No Known Allergies Allergy Verified 05/21/18 11:52 Review of Systems ROS Statement: Except As Marked, All Systems Reviewed And Found Negative Constitutional: Positive for: Other (dehydrated) Cardiovascular: Negative for: Chest Pain Respiratory: Positive for: Cough. Negative for: Shortness of Breath Gastrointestinal: Positive for: Diarrhea (loose and watery several times a day) Genitourinary Female: Positive for: Other (continued UTI symptoms) Physical Exam - Reviewed Nursing Documentation Reviewed: Yes Vital Signs Reviewed: Yes - Physical Exam Appears: Positive for: No Acute Distress Head Exam: Positive for: ATRAUMATIC, NORMOCEPHALIC Skin: Positive for: Normal Color, Warm. Negative for: Rash Eye Exam: Positive for: Normal appearance ENT: Positive for: Normal ENT Inspection Neck: Positive for: Normal, Painless ROM, Supple Cardiovascular/Chest: Positive for: Regular Rate, Rhythm Respiratory: Positive for: Normal Breath Sounds. Negative for: Respiratory Distress Gastrointestinal/Abdominal: Positive for: Soft, Tenderness (mild suprapubic tenderness to palpation) Back: Positive for: Normal Inspection Neurological/Psych: Positive for: Awake, Alert, Oriented (x3) - Laboratory Results Result Diagrams: 05/22/18 06:30 05/22/18 06:30 - ECG O2 Sat by Pulse Oximetry: 98 (RA) Pulse Ox Interpretation: Normal Medical Decision Making Medical Decision Making: Time: 1241 Initial Impression: admission for IV antibiotics in setting of macrobid resistant UTI Initial Plan: --BMP --CBC with differential --Blood culture --Urine culture --Urinalysis --IV fluids for rehydration --Merrem 500mg NS 100ml IVPB --Admission Scribe Attestation: Documented by Ayse Booker, acting as a scribe for Yolanda Jordan MD. Provider Scribe Attestation: All medical record entries made by the Scribe were at my direction and personally dictated by me. I have reviewed the chart and agree that the record accurately reflects my personal performance of the history, physical exam, medical decision making, and the department course for this patient. I have also personally directed, reviewed, and agree with the discharge instructions and disposition. Disposition - Clinical Impression Clinical Impression: UTI (urinary tract infection) - Disposition Disposition Time: 13:04 Condition: FAIR
[2018-05-21 13:25] LABS: BASO # 0.1 K/uL (0.0-0.2); BASO % 0.9 % (0.0-2.0); EOS # 0.1 K/uL (0.0-0.7); EOS % 0.5 % (0.0-4.0); HEMOGLOBIN 12.9 g/dL (12.0-16.0); LYMPH # 2.7 K/uL (1.0-4.3); LYMPH % 19.6 % (20.0-40.0); MEAN CELL VOLUME 97.1 fl (81.0-99.0); MEAN CORPUSCULAR HEMOGLOBIN 31.3 pg (27.0-31.0); MEAN CORPUSCULAR HGB CONC 32.2 g/dL (33.0-37.0); MEAN PLATELET VOLUME 8.5 fl (7.2-11.7); MONO # 1.6 K/uL (0.0-0.8); MONO % 11.5 % (0.0-10.0); NEUT # 9.4 K/uL (1.8-7.0); NEUT % 67.5 % (50.0-75.0); RBC 4.13 Mil/uL (3.80-5.20); RED CELL DISTRIBUTION WIDTH 14.5 % (11.5-14.5); WHITE BLOOD COUNT 13.9 K/uL (4.8-10.8)
[2018-05-21] MEDS ORDERED: Meropenem 500 MG in Sodium Chloride 0.9% 100 ML IVPB ONE (13:30)
[2018-05-21 13:34] LABS: CALCIUM 9.2 mg/dL (8.4-10.2)
--- NOTE | 2018-05-21 14:01 | CP.PCM.HP ---
<Dmitriy Draper - Last Filed: 05/21/18 16:13> History of Present Illness - History of Present Illness History of Present Illness: 81 yo female with history of Cardiomyopathy with AICD and pacemaker, Pulmonary HTN, COPD, HTN, HLD, Hypothyroidism, Osteoporosis, RA and CKD stage III, L sided breast cancer s/p mastectomy admitted for UTI. Pt was seen in ED on 05/17/2018: dx with UTI and prescribed macrobid. Today, she was notified that urine culture was not susceptible to Macrobid. She denies dysuria or increase in frequency. She does have significant history for UTI. PMD: Dr. Gomez and Dr. Carr surg: pacemaker, mastectomy soc: denies smoking, etoh, illicit drugs famhx: CAD NKDA Present on Admission - Present on Admission Any Indicators Present on Admission: No History of Uncontrolled Diabetes: No Review of Systems - Constitutional Constitutional: absent: Fever - Cardiovascular Cardiovascular: absent: Chest Pain - Respiratory Respiratory: absent: Dyspnea - Gastrointestinal Gastrointestinal: Diarrhea. absent: Abdominal Pain - Genitourinary Genitourinary: absent: Dysuria, Hematuria, Urinary Frequency Past Patient History - Infectious Disease Hx of Infectious Diseases: None - Tetanus Immunizations Tetanus Immunization: Unknown - Past Medical History & Family History Past Medical History?: Yes - Past Social History Smoking Status: Never Smoked Alcohol: None Drugs: Denies Home Situation {Lives}: With Family - CARDIAC Hx Atrial Fibrillation: No Hx Cardia Arrhythmia: Yes Hx Congestive Heart Failure: Yes Hx Hypercholesterolemia: Yes Hx Hypertension: No Hx Mitral Valve Prolapse: No Hx Pacemaker: Yes (AICD) Hx Peripheral Edema: Yes - PULMONARY Hx Asthma: No Hx Bronchitis: Yes Hx Chronic Obstructive Pulmonary Disease (COPD): Yes Hx Emphysema: No Hx Pneumonia: Yes Hx Pulmonary Embolism: No Hx Sleep Apnea: No - NEUROLOGICAL Hx Alzheimer's Disease: No Hx Dementia: No Hx Migraine: No Hx Multiple Sclerosis: No Hx Parkinson's Disease: No Hx Seizures: No Hx Transient Ischemic Attacks (TIA): Yes - HEENT Hx HEENT Problems: Yes Other/Comment: chronic mastoiditis - RENAL Hx Chronic Kidney Disease: No Hx Kidney Stones: No - ENDOCRINE/METABOLIC Hx Hypothyroidism: Yes - HEMATOLOGICAL/ONCOLOGICAL Hx Anemia: No Hx Human Immunodeficiency Virus (HIV): No Hx Sickle Cell Disease: No - INTEGUMENTARY Hx Dermatological Problems: No - MUSCULOSKELETAL/RHEUMATOLOGICAL Hx Arthritis: Yes Hx Fractures: No Hx Osteoporosis: Yes Hx Rheumatoid Arthritis: Yes - GASTROINTESTINAL Hx Crohn's Disease: No Hx Diverticulitis: No Hx Gall Bladder Disease: No Hx Gastritis: No Hx Pancreatitis: No - GENITOURINARY/GYNECOLOGICAL Hx Sexually Transmitted Disorders: No - PSYCHIATRIC Hx Anxiety: No Hx Bipolar Disorder: No Hx Depression: No Hx Paranoia: No Hx Post Traumatic Stress Disorder: No Hx Schizophrenia: No - SURGICAL HISTORY Hx Appendectomy: Yes Hx Carotid Endarterectomy: No Hx Cholecystectomy: Yes Hx Coronary Artery Bypass Graft: No Hx Coronary Stent: Yes Hx Tonsillectomy: Yes - ANESTHESIA Hx Anesthesia: Yes Hx Anesthesia Reactions: No Hx Malignant Hyperthermia: No Meds Allergies/Adverse Reactions: Allergies Allergy/AdvReac Type Severity Reaction Status Date / Time No Known Allergies Allergy Verified 05/21/18 11:52 Physical Exam - Constitutional Appears: No Acute Distress - Eye Exam Eye Exam: EOMI - ENT Exam ENT Exam: Mucous Membranes Moist - Respiratory Exam Respiratory Exam: Clear to Auscultation Bilateral. absent: Wheezes - Cardiovascular Exam Cardiovascular Exam: +S1, +S2 - GI/Abdominal Exam GI & Abdominal Exam: Normal Bowel Sounds, Soft. absent: Tenderness - Extremities Exam Extremities exam: Negative for: calf tenderness - Neurological Exam Neurological exam: Alert, CN II-XII Intact - Psychiatric Exam Psychiatric exam: Normal Affect, Normal Mood Results - Vital Signs Recent Vital Signs: Last Vital Signs Temp 97.8 F 05/21/18 11:53 Pulse 78 05/21/18 11:53 Resp 20 05/21/18 11:53 BP 155/89 H 05/21/18 11:53 Pulse Ox 98 05/21/18 13:22 - Labs Result Diagrams: 05/21/18 13:00 05/21/18 13:00 Labs: Laboratory Results - last 24 hr 05/21/18 05/21/18 13:00 13:00 WBC 13.9 H RBC 4.13 Hgb 12.9 Hct 40.1 MCV 97.1 MCH 31.3 H MCHC 32.2 L RDW 14.5 Plt Count 255 MPV 8.5 Neut % (Auto) 67.5 Lymph % (Auto) 19.6 L [place] % (Auto) 11.5 H Eos % (Auto) 0.5 Baso % (Auto) 0.9 Neut # (Auto) 9.4 H Lymph # (Auto) 2.7 [place] # (Auto) 1.6 H Eos # (Auto) 0.1 Baso # (Auto) 0.1 Sodium 138 Potassium 3.9 Chloride 102 Carbon Dioxide 27 Anion Gap 13 BUN 26 H Creatinine 1.1 Est GFR ( Amer) 58 Est GFR (Non-Af Amer) 48 Random Glucose 86 Calcium 9.2 Assessment & Plan - Assessment and Plan (Free Text) Assessment: 81 yo female with history of Cardiomyopathy with AICD, Pulmonary HTN, COPD, HTN, HLD, Hypothyroidism, Osteoporosis, RA and CKD stage III admitted for UTI Plan: UTI -Culture on 05/17/2018 Susceptible to Meropenem -Afebrile; WBC: 13.9 -ID: Dr. Novoa: recs appreciated; ok for meropenem -Meropenem 500 mg IVPB Q12 (Cr. Clearance 43 mL/min) -Jovel in place -F/U blood and urine culture Pulmonary HTN/COPD -C/W sildenafil 20 mg po -(currently on records at [facility], will verify if it should be TID) -Pulm: Dr. Gomez: recs appreciated HTN -Metoprolol 25 mg PO qD Cardiomyopathy with AICD and pacemaker -Cardiology: Dr. Da Silva -c/w home meds: Amiodarone 100 mg; asa 81; Acute on CKD stage III -BUN/Cr: 26/1.1; GFR 48 -home med: lasix 20 mg PO q daily -continue to monitor BMP Hypothyroidism -c/w Levothyroxine 25 mcg Alzheimer dementia -c/w: Memantine 10 mg PO qd Hx of hypokalemia -K: 3.9 -c/w home med kdur 20 q daily -monitor BMP DVT prophylaxis -scd -lovenox 40 mg sc daily Diet: -Heart healthy Code Status: pending confirmation with brother Earl Sanchez and plan d/w Dr. Charbel Draper MD PGY2 <Adriane Barger - Last Filed: 05/21/18 18:02> Results - Vital Signs Recent Vital Signs: Last Vital Signs Temp 97.6 F 05/21/18 16:59 Pulse 60 05/21/18 16:59 Resp 20 05/21/18 16:59 BP 130/66 05/21/18 16:59 Pulse Ox 97 05/21/18 16:59 - Labs Result Diagrams: 05/21/18 13:00 05/21/18 13:00 Labs: Laboratory Results - last 24 hr 05/21/18 05/21/18 05/21/18 13:00 13:00 14:11 WBC 13.9 H RBC 4.13 Hgb 12.9 Hct 40.1 MCV 97.1 MCH 31.3 H MCHC 32.2 L RDW 14.5 Plt Count 255 MPV 8.5 Neut % (Auto) 67.5 Lymph % (Auto) 19.6 L [place] % (Auto) 11.5 H Eos % (Auto) 0.5 Baso % (Auto) 0.9 Neut # (Auto) 9.4 H Lymph # (Auto) 2.7 [place] # (Auto) 1.6 H Eos # (Auto) 0.1 Baso # (Auto) 0.1 Sodium 138 Potassium 3.9 Chloride 102 Carbon Dioxide 27 Anion Gap 13 BUN 26 H Creatinine 1.1 Est GFR ( Amer) 58 Est GFR (Non-Af Amer) 48 Random Glucose 86 Calcium 9.2 Urine Color Yellow Urine Clarity Clear Urine pH 7.0 Ur Specific [place] 1.011 Urine Protein Negative Urine Glucose (UA) Neg Urine Ketones Negative Urine Blood Negative Urine Nitrate Negative Urine Bilirubin Negative Urine Urobilinogen 0.2-1.0 Ur Leukocyte Esterase Neg Urine RBC (Auto) 4 H Urine Microscopic WBC 1 Ur Squamous Epith Cells < 1 Urine Bacteria Rare Hyaline Casts 3-5 H Attending/Attestation - Attestation I have personally seen and examined this patient.: Yes I have fully participated in the care of the patient.: Yes I have reviewed all pertinent clinical information: Yes Notes (Text): 05/21/18 18:00 agree with findings and plan as above 82F PMH Pulm HTN, COPD, vtach, ppm, ckd, alzheimers dementia admitted with ESBL UTI, receiving Merrem per sens. Pending duration of therapy, PICC? ID and Pulm consults appreciated. Patient stable, NAD.
[2018-05-21 14:32] LABS: SQUAMOUS EPITHIAL < 1 /hpf (0-5); URINE BACTERIA RARE (<OCC); URINE BILIRUBIN NEGATIVE (NEGATIVE); URINE BLOOD NEGATIVE (NEGATIVE); URINE CLARITY CLEAR (Clear); URINE COLOR YELLOW (YELLOW); URINE GLUCOSE (UA) NEG (NEGATIVE); URINE LEUKOCYTE ESTERASE NEG Leu/uL (Negative); URINE PROTEIN NEGATIVE (NEGATIVE); URINE UROBILINOGEN 0.2-1.0 mg/dL (0.2-1.0)
[2018-05-21 17:05] VITALS: BMI 25.9
--- NOTE | 2018-05-21 17:12 | CP.PCM.PN ---
Subjective - Date & Time of Evaluation Date of Evaluation: 05/21/18 Time of Evaluation: 17:10 - Subjective Subjective: I D NOTE DISCUSSED CASE c RESIDENT AGREE c TREATMENT c MEROPENEM IN ADJUSTED DOSE FULL CONSULT TO FOLLOW Objective - Vital Signs/Intake and Output Vital Signs (last 24 hours): Temp Pulse Resp BP Pulse Ox 97.6 F 60 20 130/66 97 05/21/18 16:59 05/21/18 16:59 05/21/18 16:59 05/21/18 16:59 05/21/18 16:59 - Medications Medications: Current Medications Amiodarone HCl (Cordarone) 100 mg PO DAILY [facility] Anastrozole (Arimidex 1 Mg Tab) 1 mg PO DAILY [facility] Aspirin (Ecotrin) 81 mg PO DAILY [facility] Atorvastatin Calcium (Lipitor) 20 mg PO HS [facility] Cholecalciferol (Vitamin D) 1,000 intlu PO DAILY [facility] Docusate Sodium (Colace) 200 mg PO DAILY [facility] Enoxaparin Sodium (Lovenox) 40 mg SC DAILY [facility]; Protocol Furosemide (Lasix) 20 mg PO DAILY [facility] Meropenem 500 mg/ Sodium (Chloride) 100 mls @ 100 mls/hr IVPB Q12 [facility]; Protocol Lactulose (Enulose) 20 gm PO DAILY PRN PRN Reason: Constipation Levothyroxine Sodium (Synthroid) 25 mcg PO DAILY@0630 [facility] Lidocaine (Lidoderm) 1 ea TD DAILY [facility] Losartan Potassium (Cozaar) 25 mg PO DAILY [facility] Memantine (Namenda) 10 mg PO DAILY [facility] Metoprolol Succinate (Toprol Xl) 25 mg PO DAILY [facility] Potassium Chloride (K-Dur 20 Meq Er Tab) 20 meq PO DAILY [facility] Sildenafil Citrate (Revatio) 20 mg PO TTS [facility] Tramadol HCl (Ultram) 50 mg PO DAILY [facility] Vitamin E (Vitamin E 400 Units Cap) 400 intlu PO DAILY [facility] - Labs Labs: 05/21/18 13:00 05/21/18 13:00
[2018-05-21] MEDS: Potassium Ch 20mEq in D5-1/2NS 1,000 ML IV SCH (21:38)
[2018-05-21] MEDS: Meropenem 500 MG in Sodium Chloride 0.9% 100 ML IVPB SCH (21:48)
[2018-05-22] MEDS: Levothyroxine 25 MCG TAB PO SCH (06:03)
[2018-05-22 07:15] LABS: BASO # 0.1 K/uL (0.0-0.2); EOS # 0.1 K/uL (0.0-0.7); EOS % 0.8 % (0.0-4.0); HEMOGLOBIN 12.2 g/dL (12.0-16.0); LYMPH # 2.5 K/uL (1.0-4.3); LYMPH % 22.2 % (20.0-40.0); MEAN CELL VOLUME 97.4 fl (81.0-99.0); MEAN CORPUSCULAR HEMOGLOBIN 31.7 pg (27.0-31.0); MEAN CORPUSCULAR HGB CONC 32.6 g/dL (33.0-37.0); MEAN PLATELET VOLUME 8.7 fl (7.2-11.7); MONO # 1.2 K/uL (0.0-0.8); MONO % 10.6 % (0.0-10.0); NEUT # 7.4 K/uL (1.8-7.0); NEUT % 65.4 % (50.0-75.0); RBC 3.84 Mil/uL (3.80-5.20); RED CELL DISTRIBUTION WIDTH 14.2 % (11.5-14.5); WHITE BLOOD COUNT 11.3 K/uL (4.8-10.8)
[2018-05-22 07:24] LABS: CALCIUM 8.7 mg/dL (8.4-10.2)
--- NOTE | 2018-05-22 08:07 | CP.PCM.PN ---
<Sandor MarielosisaiJuan Diego - Last Filed: 05/22/18 10:13> Subjective - Date & Time of Evaluation Date of Evaluation: 05/22/18 Time of Evaluation: 08:55 - Subjective Subjective: Patient seen and examined, in NAD. Patient does not endorse any medical complaint at this time, denies FIELD, CP, SOB, abdominal pain , N/V/D. Appetite appropriate. Patient states that she was feeling dizziness when her UTI was discovered, but denies dizziness at present. Remains afebrile, AAOx3 at this time. Objective - Vital Signs/Intake and Output Vital Signs (last 24 hours): Temp Pulse Resp BP Pulse Ox 97.9 F 60 18 137/71 94 L 05/21/18 23:42 05/21/18 23:42 05/21/18 23:42 05/21/18 23:42 05/21/18 23:42 - Medications Medications: Current Medications Amiodarone HCl (Cordarone) 100 mg PO DAILY [facility] Anastrozole (Arimidex 1 Mg Tab) 1 mg PO DAILY [facility] Aspirin (Ecotrin) 81 mg PO DAILY [facility] Atorvastatin Calcium (Lipitor) 20 mg PO HS [facility] Last Admin: 05/21/18 21:51 Dose: 20 mg Cholecalciferol (Vitamin D) 1,000 intlu PO DAILY [facility] Docusate Sodium (Colace) 200 mg PO DAILY [facility] Enoxaparin Sodium (Lovenox) 40 mg SC DAILY [facility]; Protocol Furosemide (Lasix) 20 mg PO DAILY [facility] Meropenem 500 mg/ Sodium (Chloride) 100 mls @ 100 mls/hr IVPB Q12 [facility]; Protocol Last Admin: 05/21/18 21:48 Dose: 100 mls/hr Potassium Chloride/Dextrose/Sod Cl (Potassium Chl 20 Meq In D5-1/2ns) 1,000 mls @ 42 mls/hr IV .[id number] [facility] Stop: 05/22/18 19:39 Last Admin: 05/21/18 21:38 Dose: 42 mls/hr Lactulose (Enulose) 20 gm PO DAILY PRN PRN Reason: Constipation Levothyroxine Sodium (Synthroid) 25 mcg PO DAILY@0630 [facility] Last Admin: 05/22/18 06:03 Dose: 25 mcg Lidocaine (Lidoderm) 1 ea TD DAILY [facility] Losartan Potassium (Cozaar) 25 mg PO DAILY [facility] Memantine (Namenda) 10 mg PO DAILY [facility] Metoprolol Succinate (Toprol Xl) 25 mg PO DAILY [facility] Potassium Chloride (K-Dur 20 Meq Er Tab) 20 meq PO DAILY [facility] Sildenafil Citrate (Revatio) 20 mg PO TTS [facility] Tramadol HCl (Ultram) 50 mg PO DAILY [facility] Trazodone HCl (Desyrel) 50 mg PO HS [facility] Last Admin: 05/22/18 04:01 Dose: 50 mg Vitamin E (Vitamin E 400 Units Cap) 400 intlu PO DAILY [facility] - Labs Labs: 05/22/18 06:30 05/22/18 06:30 - Constitutional Appears: No Acute Distress - Head Exam Head Exam: ATRAUMATIC, NORMOCEPHALIC - Eye Exam Eye Exam: EOMI - ENT Exam ENT Exam: Mucous Membranes Moist - Respiratory Exam Respiratory Exam: Clear to Ausculation Bilateral - Cardiovascular Exam Cardiovascular Exam: REGULAR RHYTHM, +S1, +S2 - GI/Abdominal Exam GI & Abdominal Exam: Soft, Normal Bowel Sounds. absent: Tenderness - Extremities Exam Extremities Exam: absent: Calf Tenderness - Neurological Exam Neurological Exam: Alert, Awake - Psychiatric Exam Psychiatric exam: Normal Affect - Skin Skin Exam: Normal Color, Warm Assessment and Plan - Assessment and Plan (Free Text) Assessment: 81 yo female with history of Cardiomyopathy with AICD, Pulmonary HTN, COPD, HTN, HLD, Hypothyroidism, Osteoporosis, RA and CKD stage III admitted for UTI Plan: UTI -Culture on 05/17/2018 Susceptible to Meropenem -Afebrile; WBC: 11.3 -ID: Dr. Novoa: recs appreciated; ok for meropenem -Meropenem 500 mg IVPB Q12 (Cr. Clearance 43 mL/min) -Jovel in place -F/U blood and urine culture Pulmonary HTN/COPD -C/W sildenafil 20 mg po -(currently on records at [facility], will verify if it should be TID) -Pulm: Dr. Gomez: recs appreciated HTN -Metoprolol 25 mg PO qD Cardiomyopathy with AICD and pacemaker -Cardiology: Dr. Da Silva -c/w home meds: Amiodarone 100 mg; asa 81; Acute on CKD stage III -BUN/Cr: 24/1.1; GFR 48 -home med: lasix 20 mg PO q daily -continue to monitor BMP Hypothyroidism -c/w Levothyroxine 25 mcg Alzheimer dementia -c/w: Memantine 10 mg PO qd Hx of hypokalemia -K: 4 -c/w home med kdur 20 q daily -monitor BMP DVT prophylaxis -scd -lovenox 40 mg sc daily Diet: -Heart healthy Code Status: pending confirmation with brother Earl <Adriane Barger - Last Filed: 05/22/18 11:43> Objective - Vital Signs/Intake and Output Vital Signs (last 24 hours): Temp Pulse Resp BP Pulse Ox 97.6 F 60 20 151/83 H 97 05/22/18 08:33 05/22/18 09:45 05/22/18 08:33 05/22/18 09:45 05/22/18 08:33 - Medications Medications: Current Medications Amiodarone HCl (Cordarone) 100 mg PO DAILY [facility] Last Admin: 05/22/18 09:38 Dose: 100 mg Anastrozole (Arimidex 1 Mg Tab) 1 mg PO DAILY [facility] Last Admin: 05/22/18 10:01 Dose: 1 mg Aspirin (Ecotrin) 81 mg PO DAILY [facility] Last Admin: 05/22/18 09:39 Dose: 81 mg Atorvastatin Calcium (Lipitor) 20 mg PO HS [facility] Last Admin: 05/21/18 21:51 Dose: 20 mg Cholecalciferol (Vitamin D) 1,000 intlu PO DAILY [facility] Last Admin: 05/22/18 09:46 Dose: 1,000 intlu Docusate Sodium (Colace) 200 mg PO DAILY [facility] Last Admin: 05/22/18 09:36 Dose: 200 mg Enoxaparin Sodium (Lovenox) 40 mg SC DAILY [facility]; Protocol Last Admin: 05/22/18 09:42 Dose: 40 mg Furosemide (Lasix) 20 mg PO DAILY [facility] Meropenem 500 mg/ Sodium (Chloride) 100 mls @ 100 mls/hr IVPB Q12 [facility]; Protocol Last Admin: 05/22/18 10:00 Dose: 100 mls/hr Potassium Chloride/Dextrose/Sod Cl (Potassium Chl 20 Meq In D5-1/2ns) 1,000 mls @ 42 mls/hr IV .[id number] [facility] Stop: 05/22/18 19:39 Last Admin: 05/21/18 21:38 Dose: 42 mls/hr Lactulose (Enulose) 20 gm PO DAILY PRN PRN Reason: Constipation Levothyroxine Sodium (Synthroid) 25 mcg PO DAILY@0630 [facility] Last Admin: 05/22/18 06:03 Dose: 25 mcg Lidocaine (Lidoderm) 1 ea TD DAILY [facility] Last Admin: 05/22/18 09:42 Dose: Not Given Losartan Potassium (Cozaar) 25 mg PO DAILY [facility] Last Admin: 05/22/18 09:39 Dose: 25 mg Memantine (Namenda) 10 mg PO DAILY [facility] Last Admin: 05/22/18 09:45 Dose: 10 mg Metoprolol Succinate (Toprol Xl) 25 mg PO DAILY [facility] Last Admin: 05/22/18 09:45 Dose: 25 mg Potassium Chloride (K-Dur 20 Meq Er Tab) 20 meq PO DAILY [facility] Sildenafil Citrate (Revatio) 20 mg PO TTS [facility] Tramadol HCl (Ultram) 50 mg PO DAILY [facility] Last Admin: 05/22/18 09:47 Dose: Not Given Trazodone HCl (Desyrel) 50 mg PO HS [facility] Last Admin: 05/22/18 04:01 Dose: 50 mg Vitamin E (Vitamin E 400 Units Cap) 400 intlu PO DAILY [facility] Last Admin: 05/22/18 09:46 Dose: 400 intlu - Labs Labs: 05/22/18 06:30 05/22/18 06:30 Attending/Attestation - Attestation I have personally seen and examined this patient.: Yes I have fully participated in the care of the patient.: Yes I have reviewed all pertinent clinical information, including history, physical exam and plan: Yes Notes (Text): 05/22/18 11:41 appears comfortable, no longer symptomatic. no complaints wbc trending down hydrating for azotemia hd stable nad cont abx, duration per ID agree with findings and plan as above
[2018-05-22] MEDS ORDERED: Potassium Chloride 20 mEq ER Tab PO SCH (09:00)
[2018-05-22] MEDS: Enoxaparin 40 mg Syringe SC SCH (09:42)
[2018-05-22] MEDS: Lidocaine 5% Patch TD SCH (09:42)
[2018-05-22] MEDS: Metoprolol Succinate 25 mg XL Tab PO SCH (09:45)
[2018-05-22] MEDS: Cholecalciferol 1,000 INTLU TAB PO SCH (09:46)
[2018-05-22] MEDS: Meropenem 500 MG in Sodium Chloride 0.9% 100 ML IVPB SCH ×2 (10:00→20:31)
[2018-05-22] MEDS: Sildenafil 20 MG TAB PO SCH ×2 (14:04→17:38)
[2018-05-22] MEDS: Potassium Ch 20mEq in D5-1/2NS 1,000 ML IV SCH (20:49)
[2018-05-22] MEDS: Sodium Chloride 0.9% 1,000 ML IV SCH (21:19)
[2018-05-23] MEDS: Levothyroxine 25 MCG TAB PO SCH (06:05)
[2018-05-23 06:35] LABS: HEMOGLOBIN 11.5 g/dL (12.0-16.0); MEAN CELL VOLUME 97.5 fl (81.0-99.0); MEAN CORPUSCULAR HEMOGLOBIN 32.5 pg (27.0-31.0); MEAN CORPUSCULAR HGB CONC 33.3 g/dL (33.0-37.0); RBC 3.54 Mil/uL (3.80-5.20); RED CELL DISTRIBUTION WIDTH 14.8 % (11.5-14.5); WHITE BLOOD COUNT 10.9 K/uL (4.8-10.8)
[2018-05-23 06:50] LABS: ALB/GLOB RATIO 1.1 (1.0-2.1); ALBUMIN 2.8 g/dL (3.5-5.0); ALT/SGPT 32 U/L (9-52); AST/SGOT 20 U/L (14-36); BLOOD UREA NITROGEN 22 mg/dl (7-17); CALCIUM 8.5 mg/dL (8.4-10.2); GFR NON-AFRICAN AMERICAN 53
--- NOTE | 2018-05-23 07:32 | CP.PCM.PN ---
<Sandor OchoaJuan Diego - Last Filed: 05/23/18 11:36> Subjective - Date & Time of Evaluation Date of Evaluation: 05/23/18 Time of Evaluation: 08:45 - Subjective Subjective: Patient seen and examined this morning, in NAD. Patient denies FIELD, dizziness, CP, SOB, abdominal pain, N/V/D or dysuria. Remains afebrile, AAOx3 at this time. Objective - Vital Signs/Intake and Output Vital Signs (last 24 hours): Temp Pulse Resp BP Pulse Ox 97.6 F 60 18 100/66 95 05/22/18 23:57 05/22/18 23:57 05/22/18 23:57 05/22/18 23:57 05/22/18 23:57 - Medications Medications: Current Medications Amiodarone HCl (Cordarone) 100 mg PO DAILY [facility] Last Admin: 05/22/18 09:38 Dose: 100 mg Anastrozole (Arimidex 1 Mg Tab) 1 mg PO DAILY [facility] Last Admin: 05/22/18 10:01 Dose: 1 mg Aspirin (Ecotrin) 81 mg PO DAILY [facility] Last Admin: 05/22/18 09:39 Dose: 81 mg Atorvastatin Calcium (Lipitor) 20 mg PO HS [facility] Last Admin: 05/22/18 21:14 Dose: 20 mg Cholecalciferol (Vitamin D) 1,000 intlu PO DAILY [facility] Last Admin: 05/22/18 09:46 Dose: 1,000 intlu Docusate Sodium (Colace) 200 mg PO DAILY [facility] Last Admin: 05/22/18 09:36 Dose: 200 mg Enoxaparin Sodium (Lovenox) 40 mg SC DAILY [facility]; Protocol Last Admin: 05/22/18 09:42 Dose: 40 mg Furosemide (Lasix) 20 mg PO DAILY [facility] Meropenem 500 mg/ Sodium (Chloride) 100 mls @ 100 mls/hr IVPB Q12 [facility]; Protocol Last Admin: 05/22/18 20:31 Dose: 100 mls/hr Sodium Chloride (Sodium Chloride 0.9%) 1,000 mls @ 70 mls/hr IV .[id number] [facility] Stop: 05/23/18 21:10 Last Admin: 05/22/18 21:19 Dose: 70 mls/hr Lactulose (Enulose) 20 gm PO DAILY PRN PRN Reason: Constipation Levothyroxine Sodium (Synthroid) 25 mcg PO DAILY@0630 [facility] Last Admin: 05/23/18 06:05 Dose: 25 mcg Lidocaine (Lidoderm) 1 ea TD DAILY [facility] Last Admin: 05/22/18 09:42 Dose: Not Given Losartan Potassium (Cozaar) 25 mg PO DAILY [facility] Last Admin: 05/22/18 09:39 Dose: 25 mg Memantine (Namenda) 10 mg PO DAILY [facility] Last Admin: 05/22/18 09:45 Dose: 10 mg Metoprolol Succinate (Toprol Xl) 25 mg PO DAILY [facility] Last Admin: 05/22/18 09:45 Dose: 25 mg Potassium Chloride (K-Dur 20 Meq Er Tab) 20 meq PO DAILY [facility] Sildenafil Citrate (Revatio) 20 mg PO TTS [facility] Sildenafil Citrate (Revatio) 20 mg PO TID [facility] Last Admin: 05/22/18 17:38 Dose: 20 mg Tramadol HCl (Ultram) 50 mg PO DAILY [facility] Last Admin: 05/22/18 09:47 Dose: Not Given Trazodone HCl (Desyrel) 50 mg PO HS [facility] Last Admin: 05/22/18 21:14 Dose: 50 mg Vitamin E (Vitamin E 400 Units Cap) 400 intlu PO DAILY [facility] Last Admin: 05/22/18 09:46 Dose: 400 intlu - Labs Labs: 05/23/18 05:45 05/23/18 05:45 - Additional Findings Additional findings: - Constitutional Appears: No Acute Distress - Head Exam Head Exam: ATRAUMATIC, NORMOCEPHALIC - Eye Exam Eye Exam: EOMI - ENT Exam ENT Exam: Mucous Membranes Moist - Respiratory Exam Respiratory Exam: Clear to Ausculation Bilateral - Cardiovascular Exam Cardiovascular Exam: REGULAR RHYTHM, +S1, +S2 - GI/Abdominal Exam GI & Abdominal Exam: Soft, Normal Bowel Sounds. absent: Tenderness - Extremities Exam Extremities Exam: absent: Calf Tenderness - Neurological Exam Neurological Exam: Alert, Awake - Psychiatric Exam Psychiatric exam: Normal Affect - Skin Skin Exam: Normal Color, Warm Assessment and Plan - Assessment and Plan (Free Text) Assessment: 81 yo female with history of Cardiomyopathy with AICD, Pulmonary HTN, COPD, HTN, HLD, Hypothyroidism, Osteoporosis, RA and CKD stage III admitted for UTI Plan: UTI -Culture on 05/17/2018 Susceptible to Meropenem -Afebrile; WBC: 11.3 -ID: Dr. Novoa: recs appreciated; ok for meropenem -Meropenem 500 mg IVPB Q12 (Cr. Clearance 43 mL/min) -Jovel in place -F/U blood and urine culture Pulmonary HTN/COPD -C/W sildenafil 20 mg po TID -Pulm: Dr. Gomez: recs appreciated HTN -Metoprolol 25 mg PO qD Cardiomyopathy with AICD and pacemaker -Cardiology: Dr. Da Silva -c/w home meds: Amiodarone 100 mg - asa 81 Acute on CKD stage III -BUN/Cr: 22/1.1; GFR 53 -home med: lasix 20 mg PO q daily -continue to monitor BMP Hypothyroidism -c/w Levothyroxine 25 mcg Alzheimer dementia -c/w: Memantine 10 mg PO qd Hx of hypokalemia -K: 4 -c/w home med kdur 20 q daily -monitor BMP DVT prophylaxis -scd -lovenox 40 mg sc daily Diet: -Heart healthy Code Status: pending confirmation with brother Earl <Mohan Hernandez D - Last Filed: 05/23/18 14:43> Objective - Vital Signs/Intake and Output Vital Signs (last 24 hours): Temp Pulse Resp BP Pulse Ox 97.6 F 60 20 124/69 95 05/23/18 07:58 05/23/18 09:02 05/23/18 07:58 05/23/18 09:02 05/23/18 07:58 - Medications Medications: Current Medications Amiodarone HCl (Cordarone) 100 mg PO DAILY [facility] Last Admin: 05/23/18 08:58 Dose: 100 mg Anastrozole (Arimidex 1 Mg Tab) 1 mg PO DAILY [facility] Last Admin: 05/23/18 09:06 Dose: 1 mg Aspirin (Ecotrin) 81 mg PO DAILY [facility] Last Admin: 05/23/18 09:00 Dose: 81 mg Atorvastatin Calcium (Lipitor) 20 mg PO HS [facility] Last Admin: 05/22/18 21:14 Dose: 20 mg Cholecalciferol (Vitamin D) 1,000 intlu PO DAILY [facility] Last Admin: 05/23/18 09:03 Dose: 1,000 intlu Docusate Sodium (Colace) 200 mg PO DAILY [facility] Last Admin: 05/23/18 08:57 Dose: 200 mg Enoxaparin Sodium (Lovenox) 40 mg SC DAILY [facility]; Protocol Last Admin: 05/23/18 09:01 Dose: 40 mg Furosemide (Lasix) 20 mg PO DAILY [facility] Meropenem 500 mg/ Sodium (Chloride) 100 mls @ 100 mls/hr IVPB Q12 [facility]; Protocol Last Admin: 05/23/18 09:01 Dose: 100 mls/hr Sodium Chloride (Sodium Chloride 0.9%) 1,000 mls @ 70 mls/hr IV .[id number] [facility] Stop: 05/23/18 21:10 Last Admin: 05/23/18 13:00 Dose: Not Given Lactulose (Enulose) 20 gm PO DAILY PRN PRN Reason: Constipation Levothyroxine Sodium (Synthroid) 25 mcg PO DAILY@0630 [facility] Last Admin: 05/23/18 06:05 Dose: 25 mcg Lidocaine (Lidoderm) 1 ea TD DAILY [facility] Last Admin: 05/23/18 09:00 Dose: Not Given Losartan Potassium (Cozaar) 25 mg PO DAILY [facility] Last Admin: 05/23/18 08:59 Dose: 25 mg Memantine (Namenda) 10 mg PO DAILY [facility] Last Admin: 05/23/18 09:02 Dose: 10 mg Metoprolol Succinate (Toprol Xl) 25 mg PO DAILY [facility] Last Admin: 05/23/18 09:02 Dose: 25 mg Potassium Chloride (K-Dur 20 Meq Er Tab) 20 meq PO DAILY [facility] Sildenafil Citrate (Revatio) 20 mg PO TID [facility] Last Admin: 05/23/18 13:00 Dose: 20 mg Tramadol HCl (Ultram) 50 mg PO DAILY [facility] Last Admin: 05/23/18 09:03 Dose: Not Given Trazodone HCl (Desyrel) 50 mg PO HS [facility] Last Admin: 05/22/18 21:14 Dose: 50 mg Vitamin E (Vitamin E 400 Units Cap) 400 intlu PO DAILY [facility] Last Admin: 05/23/18 09:04 Dose: 400 intlu - Labs Labs: 05/23/18 05:45 05/23/18 05:45 Attending/Attestation - Attestation I have personally seen and examined this patient.: Yes I have fully participated in the care of the patient.: Yes I have reviewed all pertinent clinical information, including history, physical exam and plan: Yes Notes (Text): 05/23/18 14:41 Patient seen and examined with resident. Case discussed and agreed with assessment and plan of transfer to TCU tomorrow for continuation of IV Meropenem and therapy.
[2018-05-23] MEDS: Lidocaine 5% Patch TD SCH (09:00)
[2018-05-23] MEDS: Enoxaparin 40 mg Syringe SC SCH (09:01)
[2018-05-23] MEDS: Meropenem 500 MG in Sodium Chloride 0.9% 100 ML IVPB SCH ×2 (09:01→21:19)
[2018-05-23] MEDS: Sildenafil 20 MG TAB PO SCH ×3 (09:02→16:47)
[2018-05-23] MEDS: Metoprolol Succinate 25 mg XL Tab PO SCH (09:02)
[2018-05-23] MEDS: Cholecalciferol 1,000 INTLU TAB PO SCH (09:03)
--- NOTE | 2018-05-23 11:46 | CP.PCM.CON ---
Past Patient History - Infectious Disease Hx of Infectious Diseases: None - Tetanus Immunizations Tetanus Immunization: Unknown - Past Medical History & Family History Past Medical History?: Yes - Past Social History Alcohol: None Drugs: Denies - CARDIAC Hx Atrial Fibrillation: No Hx Cardia Arrhythmia: Yes Hx Congestive Heart Failure: Yes Hx Hypercholesterolemia: Yes Hx Hypertension: No Hx Mitral Valve Prolapse: No Hx Pacemaker: Yes (AICD) Hx Peripheral Edema: Yes - PULMONARY Hx Asthma: No Hx Bronchitis: Yes Hx Chronic Obstructive Pulmonary Disease (COPD): Yes Hx Emphysema: No Hx Pneumonia: Yes Hx Pulmonary Embolism: No Hx Sleep Apnea: No - NEUROLOGICAL Hx Alzheimer's Disease: No Hx Dementia: No Hx Migraine: No Hx Multiple Sclerosis: No Hx Parkinson's Disease: No Hx Seizures: No Hx Transient Ischemic Attacks (TIA): Yes - HEENT Hx HEENT Problems: Yes Hx Cataracts: Yes (Sx X 2) Other/Comment: chronic mastoiditis - RENAL Hx Chronic Kidney Disease: No Hx Kidney Stones: No - ENDOCRINE/METABOLIC Hx Hypothyroidism: Yes - HEMATOLOGICAL/ONCOLOGICAL Hx Anemia: No Hx Human Immunodeficiency Virus (HIV): No Hx Sickle Cell Disease: No - INTEGUMENTARY Hx Dermatological Problems: No - MUSCULOSKELETAL/RHEUMATOLOGICAL Hx Arthritis: Yes Hx Fractures: No Hx Osteoporosis: Yes Hx Rheumatoid Arthritis: Yes - GASTROINTESTINAL Hx Crohn's Disease: No Hx Diverticulitis: No Hx Gall Bladder Disease: No Hx Gastritis: No Hx Pancreatitis: No - GENITOURINARY/GYNECOLOGICAL Hx Sexually Transmitted Disorders: No - PSYCHIATRIC Hx Anxiety: No Hx Bipolar Disorder: No Hx Depression: No Hx Paranoia: No Hx Post Traumatic Stress Disorder: No Hx Schizophrenia: No - SURGICAL HISTORY Hx Appendectomy: Yes Hx Carotid Endarterectomy: No Hx Cholecystectomy: Yes Hx Coronary Artery Bypass Graft: No Hx Coronary Stent: Yes Hx Tonsillectomy: Yes - ANESTHESIA Hx Anesthesia: Yes Hx Anesthesia Reactions: No Hx Malignant Hyperthermia: No Meds Allergies/Adverse Reactions: Allergies Allergy/AdvReac Type Severity Reaction Status Date / Time No Known Allergies Allergy Verified 05/21/18 11:52 - Medications Medications: Current Medications Amiodarone HCl (Cordarone) 100 mg PO DAILY [facility] Last Admin: 05/23/18 08:58 Dose: 100 mg Anastrozole (Arimidex 1 Mg Tab) 1 mg PO DAILY [facility] Last Admin: 05/23/18 09:06 Dose: 1 mg Aspirin (Ecotrin) 81 mg PO DAILY [facility] Last Admin: 05/23/18 09:00 Dose: 81 mg Atorvastatin Calcium (Lipitor) 20 mg PO HS [facility] Last Admin: 05/22/18 21:14 Dose: 20 mg Cholecalciferol (Vitamin D) 1,000 intlu PO DAILY [facility] Last Admin: 05/23/18 09:03 Dose: 1,000 intlu Docusate Sodium (Colace) 200 mg PO DAILY [facility] Last Admin: 05/23/18 08:57 Dose: 200 mg Enoxaparin Sodium (Lovenox) 40 mg SC DAILY [facility]; Protocol Last Admin: 05/23/18 09:01 Dose: 40 mg Furosemide (Lasix) 20 mg PO DAILY [facility] Meropenem 500 mg/ Sodium (Chloride) 100 mls @ 100 mls/hr IVPB Q12 [facility]; Protocol Last Admin: 05/23/18 09:01 Dose: 100 mls/hr Sodium Chloride (Sodium Chloride 0.9%) 1,000 mls @ 70 mls/hr IV .[id number] [facility] Stop: 05/23/18 21:10 Last Admin: 05/22/18 21:19 Dose: 70 mls/hr Lactulose (Enulose) 20 gm PO DAILY PRN PRN Reason: Constipation Levothyroxine Sodium (Synthroid) 25 mcg PO DAILY@0630 [facility] Last Admin: 05/23/18 06:05 Dose: 25 mcg Lidocaine (Lidoderm) 1 ea TD DAILY [facility] Last Admin: 05/23/18 09:00 Dose: Not Given Losartan Potassium (Cozaar) 25 mg PO DAILY [facility] Last Admin: 05/23/18 08:59 Dose: 25 mg Memantine (Namenda) 10 mg PO DAILY [facility] Last Admin: 05/23/18 09:02 Dose: 10 mg Metoprolol Succinate (Toprol Xl) 25 mg PO DAILY [facility] Last Admin: 05/23/18 09:02 Dose: 25 mg Potassium Chloride (K-Dur 20 Meq Er Tab) 20 meq PO DAILY [facility] Sildenafil Citrate (Revatio) 20 mg PO TID [facility] Last Admin: 05/23/18 09:02 Dose: 20 mg Tramadol HCl (Ultram) 50 mg PO DAILY [facility] Last Admin: 05/23/18 09:03 Dose: Not Given Trazodone HCl (Desyrel) 50 mg PO HS [facility] Last Admin: 05/22/18 21:14 Dose: 50 mg Vitamin E (Vitamin E 400 Units Cap) 400 intlu PO DAILY [facility] Last Admin: 05/23/18 09:04 Dose: 400 intlu Results - Vital Signs Recent Vital Signs: Last Vital Signs Temp 97.6 F 05/23/18 07:58 Pulse 60 05/23/18 09:02 Resp 20 05/23/18 07:58 BP 124/69 05/23/18 09:02 Pulse Ox 95 05/23/18 07:58 - Labs Result Diagrams: 05/23/18 05:45 05/23/18 05:45 Labs: Laboratory Results - last 24 hr 05/23/18 05/23/18 05:45 05:45 WBC 10.9 H RBC 3.54 L Hgb 11.5 L Hct 34.5 MCV 97.5 MCH 32.5 H MCHC 33.3 RDW 14.8 H Plt Count 209 Sodium 136 Potassium 4.3 Chloride 108 H Carbon Dioxide 22 Anion Gap 10 BUN 22 H Creatinine 1.0 Est GFR ( Amer) > 60 Est GFR (Non-Af Amer) 53 Random Glucose 79 Calcium 8.5 Total Bilirubin 0.4 AST 20 ALT 32 Alkaline Phosphatase 36 L Total Protein 5.3 L Albumin 2.8 L D Globulin 2.5 Albumin/Globulin Ratio 1.1 Assessment & Plan (1) UTI (urinary tract infection) Status: Acute (2) CAD (coronary artery disease) Status: Chronic Priority: High (3) COPD (chronic obstructive pulmonary disease) Status: Chronic Priority: Medium - Date & Time Date: 05/23/18 Time: 11:45
[2018-05-23] MEDS: Sodium Chloride 0.9% 1,000 ML IV SCH (13:00)
--- NOTE | 2018-05-23 17:26 | CP.PCM.CON ---
History of Present Illness - History of Present Illness History of Present Illness: Consultation for evaluation of CHF s/p recent percutaneous mitral valve clipping HPI: Past Patient History - Infectious Disease Hx of Infectious Diseases: None - Tetanus Immunizations Tetanus Immunization: Unknown - Past Medical History & Family History Past Medical History?: Yes - Past Social History Alcohol: None Drugs: Denies - CARDIAC Hx Atrial Fibrillation: No Hx Cardia Arrhythmia: Yes Hx Congestive Heart Failure: Yes Hx Hypercholesterolemia: Yes Hx Hypertension: No Hx Mitral Valve Prolapse: No Hx Pacemaker: Yes (AICD) Hx Peripheral Edema: Yes - PULMONARY Hx Asthma: No Hx Bronchitis: Yes Hx Chronic Obstructive Pulmonary Disease (COPD): Yes Hx Emphysema: No Hx Pneumonia: Yes Hx Pulmonary Embolism: No Hx Sleep Apnea: No - NEUROLOGICAL Hx Alzheimer's Disease: No Hx Dementia: No Hx Migraine: No Hx Multiple Sclerosis: No Hx Parkinson's Disease: No Hx Seizures: No Hx Transient Ischemic Attacks (TIA): Yes - HEENT Hx HEENT Problems: Yes Hx Cataracts: Yes (Sx X 2) Other/Comment: chronic mastoiditis - RENAL Hx Chronic Kidney Disease: No Hx Kidney Stones: No - ENDOCRINE/METABOLIC Hx Hypothyroidism: Yes - HEMATOLOGICAL/ONCOLOGICAL Hx Anemia: No Hx Human Immunodeficiency Virus (HIV): No Hx Sickle Cell Disease: No - INTEGUMENTARY Hx Dermatological Problems: No - MUSCULOSKELETAL/RHEUMATOLOGICAL Hx Arthritis: Yes Hx Fractures: No Hx Osteoporosis: Yes Hx Rheumatoid Arthritis: Yes - GASTROINTESTINAL Hx Crohn's Disease: No Hx Diverticulitis: No Hx Gall Bladder Disease: No Hx Gastritis: No Hx Pancreatitis: No - GENITOURINARY/GYNECOLOGICAL Hx Sexually Transmitted Disorders: No - PSYCHIATRIC Hx Anxiety: No Hx Bipolar Disorder: No Hx Depression: No Hx Paranoia: No Hx Post Traumatic Stress Disorder: No Hx Schizophrenia: No - SURGICAL HISTORY Hx Appendectomy: Yes Hx Carotid Endarterectomy: No Hx Cholecystectomy: Yes Hx Coronary Artery Bypass Graft: No Hx Coronary Stent: Yes Hx Tonsillectomy: Yes - ANESTHESIA Hx Anesthesia: Yes Hx Anesthesia Reactions: No Hx Malignant Hyperthermia: No Meds Allergies/Adverse Reactions: Allergies Allergy/AdvReac Type Severity Reaction Status Date / Time No Known Allergies Allergy Verified 05/21/18 11:52 - Medications Medications: Current Medications Amiodarone HCl (Cordarone) 100 mg PO DAILY [facility] Last Admin: 05/23/18 08:58 Dose: 100 mg Anastrozole (Arimidex 1 Mg Tab) 1 mg PO DAILY [facility] Last Admin: 05/23/18 09:06 Dose: 1 mg Aspirin (Ecotrin) 81 mg PO DAILY [facility] Last Admin: 05/23/18 09:00 Dose: 81 mg Atorvastatin Calcium (Lipitor) 20 mg PO HS [facility] Last Admin: 05/22/18 21:14 Dose: 20 mg Cholecalciferol (Vitamin D) 1,000 intlu PO DAILY [facility] Last Admin: 05/23/18 09:03 Dose: 1,000 intlu Docusate Sodium (Colace) 200 mg PO DAILY [facility] Last Admin: 05/23/18 08:57 Dose: 200 mg Enoxaparin Sodium (Lovenox) 40 mg SC DAILY [facility]; Protocol Last Admin: 05/23/18 09:01 Dose: 40 mg Furosemide (Lasix) 20 mg PO DAILY [facility] Meropenem 500 mg/ Sodium (Chloride) 100 mls @ 100 mls/hr IVPB Q12 [facility]; Protocol Last Admin: 05/23/18 09:01 Dose: 100 mls/hr Sodium Chloride (Sodium Chloride 0.9%) 1,000 mls @ 70 mls/hr IV .[id number] [facility] Stop: 05/23/18 21:10 Last Admin: 05/23/18 13:00 Dose: Not Given Lactulose (Enulose) 20 gm PO DAILY PRN PRN Reason: Constipation Levothyroxine Sodium (Synthroid) 25 mcg PO DAILY@0630 [facility] Last Admin: 05/23/18 06:05 Dose: 25 mcg Lidocaine (Lidoderm) 1 ea TD DAILY [facility] Last Admin: 05/23/18 09:00 Dose: Not Given Losartan Potassium (Cozaar) 25 mg PO DAILY [facility] Last Admin: 05/23/18 08:59 Dose: 25 mg Memantine (Namenda) 10 mg PO DAILY [facility] Last Admin: 05/23/18 09:02 Dose: 10 mg Metoprolol Succinate (Toprol Xl) 25 mg PO DAILY [facility] Last Admin: 05/23/18 09:02 Dose: 25 mg Potassium Chloride (K-Dur 20 Meq Er Tab) 20 meq PO DAILY [facility] Sildenafil Citrate (Revatio) 20 mg PO TID [facility] Last Admin: 05/23/18 16:47 Dose: 20 mg Tramadol HCl (Ultram) 50 mg PO DAILY [facility] Last Admin: 05/23/18 09:03 Dose: Not Given Trazodone HCl (Desyrel) 50 mg PO HS [facility] Last Admin: 05/22/18 21:14 Dose: 50 mg Vitamin E (Vitamin E 400 Units Cap) 400 intlu PO DAILY [facility] Last Admin: 05/23/18 09:04 Dose: 400 intlu Results - Vital Signs Recent Vital Signs: Last Vital Signs Temp 98.2 F 05/23/18 16:11 Pulse 61 05/23/18 16:11 Resp 20 05/23/18 16:11 BP 98/61 L 05/23/18 16:11 Pulse Ox 98 05/23/18 16:11 - Labs Result Diagrams: 05/23/18 05:45 05/23/18 05:45 Labs: Laboratory Results - last 24 hr 05/23/18 05/23/18 05:45 05:45 WBC 10.9 H RBC 3.54 L Hgb 11.5 L Hct 34.5 MCV 97.5 MCH 32.5 H MCHC 33.3 RDW 14.8 H Plt Count 209 Sodium 136 Potassium 4.3 Chloride 108 H Carbon Dioxide 22 Anion Gap 10 BUN 22 H Creatinine 1.0 Est GFR ( Amer) > 60 Est GFR (Non-Af Amer) 53 Random Glucose 79 Calcium 8.5 Total Bilirubin 0.4 AST 20 ALT 32 Alkaline Phosphatase 36 L Total Protein 5.3 L Albumin 2.8 L D Globulin 2.5 Albumin/Globulin Ratio 1.1
[2018-05-24] MEDS: Levothyroxine 25 MCG TAB PO SCH (05:34)
[2018-05-24] MEDS ORDERED: Sildenafil 20 MG TAB PO SCH (09:00)
--- NOTE | 2018-05-24 09:57 | CP.PCM.DIS ---
<Sandor Juan Diego Ochoa - Last Filed: 05/24/18 11:51> Provider - Provider Date of Admission: 05/21/18 13:04 Attending physician: Adriane Barger DO Consults: 05/21/18 16:03 Infectious Disease Consult Routine Comment: Consulting Provider: Edgardo Novoa Consulting Physician: Edgardo Novoa Reason for Consult: uti on meropenem 05/21/18 16:24 Pulmonology Consult Routine Comment: Consulting Provider: Filiberto Gomez Consulting Physician: Filiberto Gomez Reason for Consult: COPD, pulmonary htn 05/23/18 11:45 Cardiology Consult Routine Comment: Consulting Provider: Bernard Da Silva Consulting Physician: Bernard Da Silva Reason for Consult: CAD follow up Time Spent in preparation of Discharge (in minutes): 33 Diagnosis - Discharge Diagnosis (1) UTI (urinary tract infection) Status: Acute (2) CHF (congestive heart failure) Status: Chronic Priority: High (3) COPD (chronic obstructive pulmonary disease) Status: Chronic Priority: Medium (4) Cardiomyopathy Status: Chronic Priority: High (5) HX: breast cancer Status: Chronic Hospital Course - Lab Results Lab Results: Micro Results 05/21/18 13:39 Blood-Venous Blood Culture - Preliminary NO GROWTH AFTER 48 HOURS 05/21/18 13:39 Urine,Jovel Urine Culture - Final No Growth (<1,000 CFU/ML) Most Recent Lab Values WBC 10.9 K/uL (4.8-10.8) H 05/23/18 05:45 RBC 3.54 Mil/uL (3.80-5.20) L 05/23/18 05:45 Hgb 11.5 g/dL (12.0-16.0) L 05/23/18 05:45 Hct 34.5 % (34.0-47.0) 05/23/18 05:45 MCV 97.5 fl (81.0-99.0) 05/23/18 05:45 MCH 32.5 pg (27.0-31.0) H 05/23/18 05:45 MCHC 33.3 g/dL (33.0-37.0) 05/23/18 05:45 RDW 14.8 % (11.5-14.5) H 05/23/18 05:45 Plt Count 209 K/uL (130-400) 05/23/18 05:45 MPV 8.7 fl (7.2-11.7) 05/22/18 06:30 Neut % (Auto) 65.4 % (50.0-75.0) 05/22/18 06:30 Lymph % (Auto) 22.2 % (20.0-40.0) 05/22/18 06:30 Wilson % (Auto) 10.6 % (0.0-10.0) H 05/22/18 06:30 Eos % (Auto) 0.8 % (0.0-4.0) 05/22/18 06:30 Baso % (Auto) 1.0 % (0.0-2.0) 05/22/18 06:30 Neut # (Auto) 7.4 K/uL (1.8-7.0) H 05/22/18 06:30 Lymph # (Auto) 2.5 K/uL (1.0-4.3) 05/22/18 06:30 Wilson # (Auto) 1.2 K/uL (0.0-0.8) H 05/22/18 06:30 Eos # (Auto) 0.1 K/uL (0.0-0.7) 05/22/18 06:30 Baso # (Auto) 0.1 K/uL (0.0-0.2) 05/22/18 06:30 Sodium 136 mmol/l (132-148) 05/23/18 05:45 Potassium 4.3 MMOL/L (3.6-5.0) 05/23/18 05:45 Chloride 108 mmol/L (98-107) H 05/23/18 05:45 Carbon Dioxide 22 mmol/L (22-30) 05/23/18 05:45 Anion Gap 10 (10-20) 05/23/18 05:45 BUN 22 mg/dl (7-17) H 05/23/18 05:45 Creatinine 1.0 mg/dl (0.7-1.2) 05/23/18 05:45 Est GFR ( Amer) > 60 05/23/18 05:45 Est GFR (Non-Af Amer) 53 05/23/18 05:45 Random Glucose 79 mg/dL (65-105) 05/23/18 05:45 Calcium 8.5 mg/dL (8.4-10.2) 05/23/18 05:45 Total Bilirubin 0.4 mg/dl (0.2-1.3) 05/23/18 05:45 AST 20 U/L (14-36) 05/23/18 05:45 ALT 32 U/L (9-52) 05/23/18 05:45 Alkaline Phosphatase 36 U/L (38-126) L 05/23/18 05:45 NT-Pro-B Natriuret Pep 1550 pg/ml (0-900) H 05/23/18 17:41 Total Protein 5.3 G/DL (6.3-8.2) L 05/23/18 05:45 Albumin 2.8 g/dL (3.5-5.0) L D 05/23/18 05:45 Globulin 2.5 gm/dL (2.2-3.9) 05/23/18 05:45 Albumin/Globulin Ratio 1.1 (1.0-2.1) 05/23/18 05:45 Urine Color Yellow (YELLOW) 05/21/18 14:11 Urine Clarity Clear (Clear) 05/21/18 14:11 Urine pH 7.0 (5.0-8.0) 05/21/18 14:11 Ur Specific [place] 1.011 (1.003-1.030) 05/21/18 14:11 Urine Protein Negative mg/dL (NEGATIVE) 05/21/18 14:11 Urine Glucose (UA) Neg mg/dL (NEGATIVE) 05/21/18 14:11 Urine Ketones Negative mg/dL (NEGATIVE) 05/21/18 14:11 Urine Blood Negative (NEGATIVE) 05/21/18 14:11 Urine Nitrate Negative (NEGATIVE) 05/21/18 14:11 Urine Bilirubin Negative (NEGATIVE) 05/21/18 14:11 Urine Urobilinogen 0.2-1.0 mg/dL (0.2-1.0) 05/21/18 14:11 Ur Leukocyte Esterase Neg Kj/uL (Negative) 05/21/18 14:11 Urine RBC (Auto) 4 /hpf (0-3) H 05/21/18 14:11 Urine Microscopic WBC 1 /hpf (0-5) 05/21/18 14:11 Ur Squamous Epith Cells < 1 /hpf (0-5) 05/21/18 14:11 Urine Bacteria Rare (<OCC) 05/21/18 14:11 Hyaline Casts 3-5 /hpf (0-2) H 05/21/18 14:11 - Hospital Course Hospital Course: 81 Y/O Female with PMH of multiple comorbidities including Cardiomyopathy with AICD and pacemaker, Pulmonary HTN, COPD, HTN, HLD, Hypothyroidism, Osteoporosis, RA and CKD stage III, L sided breast cancer s/p mastectomy, urinary incontinent who was admitted to [facility] for treatment of ESBL Klebsiella UTI. Patitient was seen in ED on 05/17/2018 and was dx with UTI and prescribed macrobid, then found to be ESBL and admitted for IV antibiotic treatment. During hospital course patient was evaluated by ID Dr Novoa, patient is receiving treatment with Meropenem. Blood culture from 05/21 negative after 48 hrs, urine culture no growth after treatment started. Patient today seen and examined this AM, she denies FIELD, chills, dysuria, abdominal pain, N/V/D. Patient has remained afebrile, she is asymptomatic at present. Patient was evaluated by PT during this course, she lives alone and dependent on homemaker and health aid for transferring OOB, she is found to have chronic poor mobility in bed and gait instability and debility. Patient is found stable to be DC to TCU today for further management, to continue IV antbx and continue PT which will benefit her current UTI treatment. Patient to be followed up by hospital team while in house. Discharge Exam - Head Exam Head Exam: ATRAUMATIC, NORMOCEPHALIC - Additional Findings Additional findings: Constitutional Appears: No Acute Distress - Head Exam Head Exam: ATRAUMATIC, NORMOCEPHALIC - Eye Exam Eye Exam: EOMI - ENT Exam ENT Exam: Mucous Membranes Moist - Respiratory Exam Respiratory Exam: Clear to Ausculation Bilateral - Cardiovascular Exam Cardiovascular Exam: REGULAR RHYTHM, +S1, +S2 - GI/Abdominal Exam GI & Abdominal Exam: Soft, Normal Bowel Sounds. absent: Tenderness - Extremities Exam Extremities Exam: absent: Calf Tenderness - Neurological Exam Neurological Exam: Alert, Awake - Psychiatric Exam Psychiatric exam: Normal Affect - Skin Skin Exam: Normal Color, Warm Purewick cath in pace due to urinary incontinence Discharge Plan - Discharge Medications Prescriptions: MEROPENEM 500 MG in NS [Merrem IV 500 MG/NS 50 ML] 500 mg IV Q12 #14 bag - Follow Up Plan Condition: FAIR Disposition: HOME/ ROUTINE Instructions: Urinary Tract Infection, Adult (DC) Referrals: Filiberto Gomez MD [Staff Provider] - Steven Carr MD [Family Provider] - Clinical Quality Measures - CQM - Stroke Antithrombotic Prescribed: Yes Anticoagulation Prescribed for Atrial Flutter, Atrial Fibrillation and History of:: Not Applicable Statin prescribed: Yes - CQM - VTE Did patient receive overlap therapy during hosptialization?: Yes - CQM - Heart Failure Ejection Fraction: Less Than 40 % Left Ventricular Function to be assessed after discharge: No Beta-Papo Prescribed: Metoprolol Succinate Will be discharged to: Longterm Facility <Mohan Henrandez - Last Filed: 05/24/18 13:01> Provider - Provider Date of Admission: 05/21/18 13:04 Attending physician: Adriane Barger DO Consults: 05/21/18 16:03 Infectious Disease Consult Routine Comment: Consulting Provider: Edgardo Novoa Consulting Physician: Edgardo Novoa Reason for Consult: uti on meropenem 05/21/18 16:24 Pulmonology Consult Routine Comment: Consulting Provider: Filiberto Gomez Consulting Physician: Filiberto Gomez Reason for Consult: COPD, pulmonary htn 05/23/18 11:45 Cardiology Consult Routine Comment: Consulting Provider: Bernard Da Silva Consulting Physician: Bernard Da Silva Reason for Consult: CAD follow up Hospital Course - Lab Results Lab Results: Micro Results 05/21/18 13:39 Blood-Venous Blood Culture - Preliminary NO GROWTH AFTER 48 HOURS 05/21/18 13:39 Urine,Jovel Urine Culture - Final No Growth (<1,000 CFU/ML) Most Recent Lab Values WBC 10.9 K/uL (4.8-10.8) H 05/23/18 05:45 RBC 3.54 Mil/uL (3.80-5.20) L 05/23/18 05:45 Hgb 11.5 g/dL (12.0-16.0) L 05/23/18 05:45 Hct 34.5 % (34.0-47.0) 05/23/18 05:45 MCV 97.5 fl (81.0-99.0) 05/23/18 05:45 MCH 32.5 pg (27.0-31.0) H 05/23/18 05:45 MCHC 33.3 g/dL (33.0-37.0) 05/23/18 05:45 RDW 14.8 % (11.5-14.5) H 05/23/18 05:45 Plt Count 209 K/uL (130-400) 05/23/18 05:45 MPV 8.7 fl (7.2-11.7) 05/22/18 06:30 Neut % (Auto) 65.4 % (50.0-75.0) 05/22/18 06:30 Lymph % (Auto) 22.2 % (20.0-40.0) 05/22/18 06:30 Wilson % (Auto) 10.6 % (0.0-10.0) H 05/22/18 06:30 Eos % (Auto) 0.8 % (0.0-4.0) 05/22/18 06:30 Baso % (Auto) 1.0 % (0.0-2.0) 05/22/18 06:30 Neut # (Auto) 7.4 K/uL (1.8-7.0) H 05/22/18 06:30 Lymph # (Auto) 2.5 K/uL (1.0-4.3) 05/22/18 06:30 Wilson # (Auto) 1.2 K/uL (0.0-0.8) H 05/22/18 06:30 Eos # (Auto) 0.1 K/uL (0.0-0.7) 05/22/18 06:30 Baso # (Auto) 0.1 K/uL (0.0-0.2) 05/22/18 06:30 Sodium 136 mmol/l (132-148) 05/23/18 05:45 Potassium 4.3 MMOL/L (3.6-5.0) 05/23/18 05:45 Chloride 108 mmol/L (98-107) H 05/23/18 05:45 Carbon Dioxide 22 mmol/L (22-30) 05/23/18 05:45 Anion Gap 10 (10-20) 05/23/18 05:45 BUN 22 mg/dl (7-17) H 05/23/18 05:45 Creatinine 1.0 mg/dl (0.7-1.2) 05/23/18 05:45 Est GFR ( Amer) > 60 05/23/18 05:45 Est GFR (Non-Af Amer) 53 05/23/18 05:45 Random Glucose 79 mg/dL (65-105) 05/23/18 05:45 Calcium 8.5 mg/dL (8.4-10.2) 05/23/18 05:45 Total Bilirubin 0.4 mg/dl (0.2-1.3) 05/23/18 05:45 AST 20 U/L (14-36) 05/23/18 05:45 ALT 32 U/L (9-52) 05/23/18 05:45 Alkaline Phosphatase 36 U/L (38-126) L 05/23/18 05:45 NT-Pro-B Natriuret Pep 1550 pg/ml (0-900) H 05/23/18 17:41 Total Protein 5.3 G/DL (6.3-8.2) L 05/23/18 05:45 Albumin 2.8 g/dL (3.5-5.0) L D 05/23/18 05:45 Globulin 2.5 gm/dL (2.2-3.9) 05/23/18 05:45 Albumin/Globulin Ratio 1.1 (1.0-2.1) 05/23/18 05:45 Urine Color Yellow (YELLOW) 05/21/18 14:11 Urine Clarity Clear (Clear) 05/21/18 14:11 Urine pH 7.0 (5.0-8.0) 05/21/18 14:11 Ur Specific [place] 1.011 (1.003-1.030) 05/21/18 14:11 Urine Protein Negative mg/dL (NEGATIVE) 05/21/18 14:11 Urine Glucose (UA) Neg mg/dL (NEGATIVE) 05/21/18 14:11 Urine Ketones Negative mg/dL (NEGATIVE) 05/21/18 14:11 Urine Blood Negative (NEGATIVE) 05/21/18 14:11 Urine Nitrate Negative (NEGATIVE) 05/21/18 14:11 Urine Bilirubin Negative (NEGATIVE) 05/21/18 14:11 Urine Urobilinogen 0.2-1.0 mg/dL (0.2-1.0) 05/21/18 14:11 Ur Leukocyte Esterase Neg Kj/uL (Negative) 05/21/18 14:11 Urine RBC (Auto) 4 /hpf (0-3) H 05/21/18 14:11 Urine Microscopic WBC 1 /hpf (0-5) 05/21/18 14:11 Ur Squamous Epith Cells < 1 /hpf (0-5) 05/21/18 14:11 Urine Bacteria Rare (<OCC) 05/21/18 14:11 Hyaline Casts 3-5 /hpf (0-2) H 05/21/18 14:11 Attending/Attestation - Attestation I have personally seen and examined this patient.: Yes I have fully participated in the care of the patient.: Yes I have reviewed all pertinent clinical information, including history, physical exam and plan: Yes Notes (Text): 05/24/18 12:56 Patient seen and examined with resident. Case discussed and agreed with assessment. Patient is an 82 yo female with history of COPD, Pulmonary HTN, Cardiomyopathy with AICD, HTN, CKD stage III and Hypothyroidism admitted because of UTI with ESBL E coli. She is being transferred to TCU for continuation of IV antibiotics and therapy for physical deconditioning.
[2018-05-24] MEDS: Lidocaine 5% Patch TD SCH (10:23)
[2018-05-24] MEDS: Enoxaparin 40 mg Syringe SC SCH (10:23)
[2018-05-24] MEDS: Cholecalciferol 1,000 INTLU TAB PO SCH (10:24)
[2018-05-24] MEDS: Sildenafil 20 MG TAB PO SCH ×2 (10:25→14:04)
[2018-05-24] MEDS: Metoprolol Succinate 25 mg XL Tab PO SCH (10:25)
[2018-05-24] MEDS: Meropenem 500 MG in Sodium Chloride 0.9% 100 ML IVPB SCH (10:37)
--- NOTE | 2018-05-24 12:39 | CP.PCM.PN ---
Subjective - Date & Time of Evaluation Date of Evaluation: 05/24/18 Time of Evaluation: 12:37 - Subjective Subjective: Responding well to current regimen. No complaints of cough or SOB. Will discharge to TCU for continued antibiotic and physical therapy. Objective - Vital Signs/Intake and Output Vital Signs (last 24 hours): Temp Pulse Resp BP Pulse Ox 97.8 F 85 20 139/77 94 L 05/24/18 08:40 05/24/18 10:25 05/24/18 08:40 05/24/18 10:25 05/24/18 08:40 - Medications Medications: Current Medications Amiodarone HCl (Cordarone) 100 mg PO DAILY [facility] Last Admin: 05/24/18 10:21 Dose: 100 mg Anastrozole (Arimidex 1 Mg Tab) 1 mg PO DAILY [facility] Last Admin: 05/24/18 10:20 Dose: 1 mg Aspirin (Ecotrin) 81 mg PO DAILY [facility] Last Admin: 05/24/18 10:23 Dose: 81 mg Atorvastatin Calcium (Lipitor) 20 mg PO HS [facility] Last Admin: 05/23/18 21:20 Dose: 20 mg Cholecalciferol (Vitamin D) 1,000 intlu PO DAILY [facility] Last Admin: 05/24/18 10:24 Dose: 1,000 intlu Docusate Sodium (Colace) 200 mg PO DAILY [facility] Last Admin: 05/24/18 10:21 Dose: 200 mg Enoxaparin Sodium (Lovenox) 40 mg SC DAILY [facility]; Protocol Last Admin: 05/24/18 10:23 Dose: 40 mg Furosemide (Lasix) 20 mg PO DAILY [facility] Meropenem 500 mg/ Sodium (Chloride) 100 mls @ 100 mls/hr IVPB Q12 [facility]; Protocol Last Admin: 05/24/18 10:37 Dose: 100 mls/hr Lactulose (Enulose) 20 gm PO DAILY PRN PRN Reason: Constipation Levothyroxine Sodium (Synthroid) 25 mcg PO DAILY@0630 [facility] Last Admin: 05/24/18 05:34 Dose: 25 mcg Lidocaine (Lidoderm) 1 ea TD DAILY [facility] Last Admin: 05/24/18 10:23 Dose: 1 ea Losartan Potassium (Cozaar) 25 mg PO DAILY [facility] Last Admin: 05/24/18 10:22 Dose: 25 mg Memantine (Namenda) 10 mg PO DAILY [facility] Last Admin: 05/24/18 10:24 Dose: 10 mg Metoprolol Succinate (Toprol Xl) 25 mg PO DAILY [facility] Last Admin: 05/24/18 10:25 Dose: 25 mg Potassium Chloride (K-Dur 20 Meq Er Tab) 20 meq PO DAILY [facility] Sildenafil Citrate (Revatio) 20 mg PO TID [facility] Last Admin: 05/24/18 10:25 Dose: 20 mg Tramadol HCl (Ultram) 50 mg PO DAILY [facility] Last Admin: 05/23/18 09:03 Dose: Not Given Trazodone HCl (Desyrel) 50 mg PO HS [facility] Last Admin: 05/23/18 21:20 Dose: 50 mg Vitamin E (Vitamin E 400 Units Cap) 400 intlu PO DAILY [facility] Last Admin: 05/24/18 10:24 Dose: 400 intlu - Labs Labs: 05/23/18 05:45 05/23/18 05:45 Assessment and Plan (1) UTI (urinary tract infection) Status: Acute (2) CAD (coronary artery disease) Status: Chronic (3) COPD (chronic obstructive pulmonary disease) Status: Chronic
[2018-05-24 16:26] VITALS: BP 118/64; PULSE 63; RESP 18; TEMP 98.4; O2SAT 93
--- NOTE | 2018-05-25 13:01 | PQF ---
PROVIDER RESPONSE TEXT: Patient has chronic systolic congestive heart failure REVIEWER QUERY TEXT: CHF Acuity and Type Congestive Heart Failure is documented in the Medical Record. Please document the type and acuity: if known versus hx. of CHF: not a currently treated condition Such as: Type: -- Systolic -- Diastolic -- Combined -- Other, please specify Acuity: -- Acute -- Chronic -- Acute on chronic -- Other, please specify H and P: includes a history of CHF - oral lasix The patient's Clinical Indicators include: -- Query created by: Isa Davis on 05/23/2018 8:48 AM Electronically signed by: Juan Diego Ochoa 05/25/2018 12:58 PM
--- NOTE | 2018-05-25 13:01 | PQF ---
PROVIDER RESPONSE TEXT: Patient has ischemic cardiomyopathy. REVIEWER QUERY TEXT: Cardiomyopathy Type Cardiomyopathy is documented in the Medical Record. Please specify the type:if known Such as: -- Alcoholic -- Congestive -- Constrictive -- Dilated -- Hypertensive -- Ischemic -- Obstructive Hypertrophic - IHSS -- Other Hypertrophic -- Other, please specify The patient's Clinical Indicators include: -- Query created by: Isa Davis on 05/23/2018 8:50 AM Electronically signed by: Juan Diego Ochoa 05/25/2018 12:58 PM
== END 2018-05-24 16:40 | DRG 690 ==
LOC: H.ER 11:46 → H.ERHOLD 13:04 → H.MEDSURG1 15:41
PROVIDERS: ADMIT Student in an Organized Health Care Education/Training Program; ATTEND Student in an Organized Health Care Education/Training Program
DX: N39.0 Urinary tract infection, site not specified (principal); I13.0 Hypertensive heart and chronic kidney disease with heart failure and stage 1 through stage 4 chronic kidney disease, or unspecified chronic kidney disease; I50.22 Chronic systolic (congestive) heart failure; I27.20 Pulmonary hypertension, unspecified; N18.3 Chronic kidney disease, stage 3 (moderate); I25.5 Ischemic cardiomyopathy; M06.9 Rheumatoid arthritis, unspecified; Z16.12 Extended spectrum beta lactamase (ESBL) resistance; B96.1 Klebsiella pneumoniae [K. pneumoniae] as the cause of diseases classified elsewhere; B96.20 Unspecified Escherichia coli [E. coli] as the cause of diseases classified elsewhere; E03.9 Hypothyroidism, unspecified; I25.10 Atherosclerotic heart disease of native coronary artery without angina pectoris; G30.9 Alzheimer's disease, unspecified; F02.80 Dementia in other diseases classified elsewhere, unspecified severity, without behavioral disturbance, psychotic disturbance, mood disturbance, and anxiety; E78.5 Hyperlipidemia, unspecified; E78.00 Pure hypercholesterolemia, unspecified; J44.9 Chronic obstructive pulmonary disease, unspecified; M81.0 Age-related osteoporosis without current pathological fracture; Z95.810 Presence of automatic (implantable) cardiac defibrillator; Z95.5 Presence of coronary angioplasty implant and graft; Z85.3 Personal history of malignant neoplasm of breast; Z87.01 Personal history of pneumonia (recurrent); Z87.891 Personal history of nicotine dependence; Z90.10 Acquired absence of unspecified breast and nipple; Z79.890 Hormone replacement therapy; Z79.82 Long term (current) use of aspirin; Z86.73 Personal history of transient ischemic attack (TIA), and cerebral infarction without residual deficits

== ENCOUNTER 2018-05-24 11:02 | Inpatient (IN) | payer OTHER, MEDICARE ==
--- NOTE | 2018-05-24 20:14 | CP.PCM.PN ---
Subjective - Date & Time of Evaluation Date of Evaluation: 05/24/18 Time of Evaluation: 20:12 - Subjective Subjective: Abena Tapia, PGY-1, Cardiology Progress Note for Dr. Da Silva Patient was seen and evaluated at bedside. Patient reports no shortness of breath or chest pain at this time. Patient was concerned regarding ambulation today. Objective - Vital Signs/Intake and Output Vital Signs (last 24 hours): Temp Pulse Resp BP Pulse Ox 67 20 95 05/24/18 17:38 05/24/18 17:38 05/24/18 17:38 - Medications Medications: Current Medications Amiodarone HCl (Cordarone) 100 mg PO DAILY [facility] Anastrozole (Arimidex 1 Mg Tab) 1 mg PO DAILY [facility] Aspirin (Ecotrin) 81 mg PO DAILY [facility] Atorvastatin Calcium (Lipitor) 20 mg PO HS [facility] Cholecalciferol (Vitamin D) 1,000 intlu PO DAILY [facility] Docusate Sodium (Colace) 200 mg PO DAILY [facility] Enoxaparin Sodium (Lovenox) 40 mg SC DAILY [facility]; Protocol Furosemide (Lasix) 20 mg PO DAILY [facility] Meropenem 500 mg/ Sodium (Chloride) 100 mls @ 100 mls/hr IVPB Q12H [facility] Lactulose (Enulose) 20 gm PO DAILY PRN PRN Reason: Constipation Levothyroxine Sodium (Synthroid) 25 mcg PO DAILY@0630 [facility] Lidocaine (Lidoderm) 1 ea TD DAILY [facility] Losartan Potassium (Cozaar) 25 mg PO DAILY [facility] Memantine (Namenda) 10 mg PO DAILY [facility] Metoprolol Succinate (Toprol Xl) 25 mg PO DAILY [facility] Multivitamins/Minerals (Therapeutic-M Tab) 1 tab PO DAILY [facility] Potassium Chloride (K-Dur 20 Meq Er Tab) 20 meq PO DAILY [facility] Sildenafil Citrate (Revatio) 20 mg PO TTS [facility] Tramadol HCl (Ultram) 50 mg PO DAILY [facility] Vitamin E (Vitamin E 400 Units Cap) 400 intlu PO DAILY [facility] - Constitutional Appears: Well, Non-toxic, No Acute Distress - Head Exam Head Exam: ATRAUMATIC, NORMAL INSPECTION, NORMOCEPHALIC - Eye Exam Eye Exam: EOMI, PERRL - Respiratory Exam Respiratory Exam: Clear to Ausculation Bilateral, NORMAL BREATHING PATTERN - Cardiovascular Exam Cardiovascular Exam: REGULAR RHYTHM, RRR, +S1, +S2, Murmur (holosystolic blowing murmur at LLSB and apex) - GI/Abdominal Exam GI & Abdominal Exam: Soft, Normal Bowel Sounds. absent: Tenderness - Extremities Exam Extremities Exam: Full ROM - Neurological Exam Neurological Exam: Alert, Awake, CN II-XII Intact, Oriented x3 - Psychiatric Exam Psychiatric exam: Normal Affect, Normal Mood - Skin Skin Exam: Dry, Intact, Normal Color Assessment and Plan - Assessment and Plan (Free Text) Assessment: Cardiomyopathy status post mitral valve clipping with last LVEF of 25-30% Hypertension Hyperlipidemia Hypothyroidism Paroxysmal Atrial Fibrillation Plan: Cardiomyopathy status post mitral valve clipping Hypertension Hyperlipidemia Hypothyroidism Paroxysmal Atrial Fibrillation Medications: Amiodarone Aspirin Lipitor Lasix 20 mg PO daily Synthroid Cozaar Toprol Vitamin E
[2018-05-24] MEDS ORDERED: Patient's Own Med (Meropenem 500 Mg In Ns [Merrem Iv 500 Mg/Ns 50 Ml] 500 MG) IV SCH (21:00)
[2018-05-24] MEDS: Meropenem 500 MG in Sodium Chloride 0.9% 100 ML IVPB SCH (21:45)
[2018-05-25] MEDS: Levothyroxine 25 MCG TAB PO SCH (06:03)
[2018-05-25] MEDS: Enoxaparin 40 mg Syringe SC SCH (09:33)
[2018-05-25] MEDS: Lidocaine 5% Patch TD SCH (09:34)
[2018-05-25] MEDS: Metoprolol Succinate 25 mg XL Tab PO SCH (09:35)
[2018-05-25] MEDS: Cholecalciferol 1,000 INTLU TAB PO SCH (09:35)
[2018-05-25] MEDS: Multivitamin With Minerals Tab PO SCH (09:36)
[2018-05-25] MEDS: Potassium Chloride 20 mEq ER Tab PO SCH (09:36)
[2018-05-25] MEDS: Meropenem 500 MG in Sodium Chloride 0.9% 100 ML IVPB SCH ×2 (09:43→20:52)
--- NOTE | 2018-05-25 10:09 | CP.PCM.HP ---
<Juan Diego Cunningham - Last Filed: 05/25/18 10:42> History of Present Illness - History of Present Illness History of Present Illness: 81 Y/O Female with PMH of multiple comorbidities including Cardiomyopathy with AICD and pacemaker, Pulmonary HTN, COPD, HTN, HLD, Hypothyroidism, Osteoporosis, RA and CKD stage III, L sided breast cancer s/p mastectomy, urinary incontinent who was admitted to [facility] for treatment of ESBL Klebsiella UTI. Patitient was seen in ED on 05/17/2018 and was dx with UTI and prescribed macrobid sent home, then found on UC to be ESBL and admitted for IV antibiotic treatment. During her last hospital course patient was evaluated by ID Dr Novoa, patient received treatment with Meropenem. Blood culture from 05/21 negative were after 48 hrs, urine culture no growth after treatment started. Patient was evaluated by PT during her hptal course, she lives alone and dependent on homemaker and health aid for transferring OOB, she is found to have chronic poor mobility in bed and gait instability and debility. Patient was DC yesterday 05/24/18 and decided to DC to TCU for further management, to continue IV antbx and continue PT which will benefit her current UTI treatment.Patient is seen and examined this AM, she denies FIELD, chills, dysuria, abdominal pain, N/V/D. Patient has remained afebrile, she is asymptomatic at present. Patient to be followed up by hospital team while in TCU. ROS: 12 systems reviewed and found unremarkable, except as per HPI. PMD: Dr. Gomez and Dr. Carr PMH: Cardiomyopathy with AICD and pacemaker, Pulmonary HTN, COPD, HTN, HLD, Hypothyroidism, Osteoporosis, RA and CKD stage III, L sided breast cancer s/p mastectomy, urinary incontinence SURG: pacemaker, mastectomy SC: denies smoking, etoh, illicit drugs FMH: CAD ALLERG: NKDA Present on Admission - Present on Admission Any Indicators Present on Admission: No History of DVT/PE: No History of Uncontrolled Diabetes: No Urinary Catheter: No Decubitus Ulcer Present: No Past Patient History - Infectious Disease Hx of Infectious Diseases: None - Tetanus Immunizations Tetanus Immunization: Unknown - Past Medical History & Family History Past Medical History?: Yes - Past Social History Smoking Status: Never Smoked - CARDIAC Hx Atrial Fibrillation: No Hx Cardia Arrhythmia: Yes Hx Congestive Heart Failure: Yes Hx Hypercholesterolemia: Yes Hx Hypertension: No Hx Mitral Valve Prolapse: No Hx Pacemaker: Yes (AICD) Hx Peripheral Edema: Yes - PULMONARY Hx Asthma: No Hx Bronchitis: Yes Hx Chronic Obstructive Pulmonary Disease (COPD): Yes Hx Emphysema: No Hx Pneumonia: Yes Hx Pulmonary Embolism: No Hx Sleep Apnea: No - NEUROLOGICAL Hx Alzheimer's Disease: No Hx Dementia: No Hx Migraine: No Hx Multiple Sclerosis: No Hx Parkinson's Disease: No Hx Seizures: No Hx Transient Ischemic Attacks (TIA): Yes - HEENT Hx HEENT Problems: Yes Hx Cataracts: Yes (Sx X 2) Other/Comment: chronic mastoiditis - RENAL Hx Chronic Kidney Disease: No Hx Kidney Stones: No - ENDOCRINE/METABOLIC Hx Hypothyroidism: Yes - HEMATOLOGICAL/ONCOLOGICAL Hx AIDS: No Hx Anemia: No Hx Human Immunodeficiency Virus (HIV): No Hx Sickle Cell Disease: No - INTEGUMENTARY Hx Dermatological Problems: No - MUSCULOSKELETAL/RHEUMATOLOGICAL Hx Arthritis: Yes Hx Falls: No Hx Fractures: No Hx Osteoporosis: Yes Hx Rheumatoid Arthritis: Yes - GASTROINTESTINAL Hx Crohn's Disease: No Hx Diverticulitis: No Hx Gall Bladder Disease: No Hx Gastritis: No Hx Pancreatitis: No - GENITOURINARY/GYNECOLOGICAL Hx Sexually Transmitted Disorders: No - PSYCHIATRIC Hx Anxiety: No Hx Bipolar Disorder: No Hx Depression: No Hx Paranoia: No Hx Post Traumatic Stress Disorder: No Hx Schizophrenia: No - SURGICAL HISTORY Hx Appendectomy: Yes Hx Carotid Endarterectomy: No Hx Cholecystectomy: Yes Hx Coronary Artery Bypass Graft: No Hx Coronary Stent: Yes Hx Tonsillectomy: Yes - ANESTHESIA Hx Anesthesia: Yes Hx Anesthesia Reactions: No Hx Malignant Hyperthermia: No Meds Allergies/Adverse Reactions: Allergies Allergy/AdvReac Type Severity Reaction Status Date / Time No Known Allergies Allergy Verified 05/24/18 15:45 Physical Exam - Additional Findings Additional findings: - Constitutional Appears: Well, Non-toxic, No Acute Distress - Head Exam Head Exam: ATRAUMATIC, NORMAL INSPECTION, NORMOCEPHALIC - Eye Exam Eye Exam: EOMI, PERRL - Respiratory Exam Respiratory Exam: Clear to Ausculation Bilateral, NORMAL BREATHING PATTERN - Cardiovascular Exam Cardiovascular Exam: REGULAR RHYTHM, +S1, +S2, Murmur (holosystolic blowing murmur on apex) - GI/Abdominal Exam GI & Abdominal Exam: Soft, Normal Bowel Sounds. absent: Tenderness - Extremities Exam Extremities Exam: Full ROM - Neurological Exam Neurological Exam: Alert, Awake, Oriented x3 - Psychiatric Exam Psychiatric exam: Normal Affect, Normal Mood - Skin Skin Exam: Dry, Intact, Normal Color Results - Vital Signs Recent Vital Signs: Last Vital Signs Temp 98.3 F 05/25/18 08:11 Pulse 61 05/25/18 09:37 Resp 20 05/25/18 08:11 BP 147/80 05/25/18 09:37 Pulse Ox 99 05/25/18 08:11 Assessment & Plan - Assessment and Plan (Free Text) Assessment: 81 Y/O Female with PMH of multiple comorbidities including Cardiomyopathy with AICD and pacemaker, Pulmonary HTN, COPD, HTN, HLD, Hypothyroidism, Osteoporosis, RA and CKD stage III, L sided breast cancer s/p mastectomy, urinary incontinent. Patient was admitted for ESBL Klebsiella UTI and started on Meropenem IV on 05/21/18, DC on 05/24/18 with need to continue IV antbx. Patient lives alone and dependent on homemaker and health aid for transferring OOB, she is found to have chronic poor mobility in bed, gait instability and deconditioning, is admitted to TCU for IV antbx tx and PT to improve ADLs. Plan: Deconditioning -PT eval and treatment UTI -Culture on 05/17/2018 Susceptible to Meropenem -Afebrile -Meropenem 500 mg IVPB Q12 (Cr. Clearance 43 mL/min) Pulmonary HTN/COPD -C/W sildenafil 20 mg po TID -Pulm: Dr. Gomez: recs appreciated HTN -Metoprolol 25 mg PO qD Cardiomyopathy with AICD and pacemaker -Cardiology: Dr. Da Silva -c/w home meds: Amiodarone 100 mg - asa 82 Acute on CKD stage III -BUN/Cr: 22/1.1; GFR 53 on 05/23 -home med: lasix 20 mg PO q daily -continue to monitor BMP Hypothyroidism -c/w Levothyroxine 25 mcg Alzheimer dementia -c/w: Memantine 10 mg PO qd Hx of hypokalemia -c/w home med kdur 20 q daily -monitor BMP DVT prophylaxis -scd -lovenox 40 mg sc daily Diet: -Heart healthy Code Status: pending confirmation with brother Earl <Juanito Hernandeznino D - Last Filed: 05/25/18 11:28> Results - Vital Signs Recent Vital Signs: Last Vital Signs Temp 98.3 F 05/25/18 08:11 Pulse 61 05/25/18 09:37 Resp 20 05/25/18 08:11 BP 147/80 05/25/18 09:37 Pulse Ox 99 05/25/18 08:11 Attending/Attestation - Attestation I have personally seen and examined this patient.: Yes I have fully participated in the care of the patient.: Yes I have reviewed all pertinent clinical information: Yes Notes (Text): 05/25/18 11:26 Patient seen and examined with resident. Case discussed and agreed with assessment and plan. Patient is an 82 yo female with history of Pulmonary HTN and Cardiomyopathy with AICD admitted to TCU for continuation of IV antibiotics. Urine culture grew ESBL E coli.
--- NOTE | 2018-05-25 16:32 | CP.PCM.PN ---
Subjective - Date & Time of Evaluation Date of Evaluation: 05/25/18 Time of Evaluation: 16:30 - Subjective Subjective: I D NOTE PATIENT DOING WELL ON IV MEROPENEM. WBC:10.9 CONTINUE IV MEROPENEM TOTAL OF 10 DAYS LABS ORDERED Objective - Vital Signs/Intake and Output Vital Signs (last 24 hours): Temp Pulse Resp BP Pulse Ox 98.3 F 64 20 147/80 98 05/25/18 09:00 05/25/18 15:04 05/25/18 09:00 05/25/18 09:37 05/25/18 15:04 - Medications Medications: Current Medications Amiodarone HCl (Cordarone) 100 mg PO DAILY [facility] Last Admin: 05/25/18 09:37 Dose: 100 mg Anastrozole (Arimidex 1 Mg Tab) 1 mg PO DAILY [facility] Last Admin: 05/25/18 09:43 Dose: 1 mg Aspirin (Ecotrin) 81 mg PO DAILY [facility] Last Admin: 05/25/18 09:36 Dose: 81 mg Atorvastatin Calcium (Lipitor) 20 mg PO HS [facility] Last Admin: 05/24/18 22:15 Dose: 20 mg Cholecalciferol (Vitamin D) 1,000 intlu PO DAILY [facility] Last Admin: 05/25/18 09:35 Dose: 1,000 intlu Docusate Sodium (Colace) 200 mg PO DAILY [facility] Last Admin: 05/25/18 09:35 Dose: 200 mg Enoxaparin Sodium (Lovenox) 40 mg SC DAILY [facility]; Protocol Last Admin: 05/25/18 09:33 Dose: 40 mg Furosemide (Lasix) 20 mg PO DAILY [facility] Last Admin: 05/25/18 09:34 Dose: 20 mg Meropenem 500 mg/ Sodium (Chloride) 100 mls @ 100 mls/hr IVPB Q12H [facility] Last Admin: 05/25/18 09:43 Dose: 100 mls/hr Lactulose (Enulose) 20 gm PO DAILY PRN PRN Reason: Constipation Levothyroxine Sodium (Synthroid) 25 mcg PO DAILY@0630 [facility] Last Admin: 05/25/18 06:03 Dose: 25 mcg Lidocaine (Lidoderm) 1 ea TD DAILY [facility] Last Admin: 05/25/18 09:34 Dose: Not Given Losartan Potassium (Cozaar) 25 mg PO DAILY [facility] Last Admin: 05/25/18 09:37 Dose: 25 mg Memantine (Namenda) 10 mg PO DAILY [facility] Last Admin: 05/25/18 09:37 Dose: 10 mg Metoprolol Succinate (Toprol Xl) 25 mg PO DAILY [facility] Last Admin: 05/25/18 09:35 Dose: 25 mg Multivitamins/Minerals (Therapeutic-M Tab) 1 tab PO DAILY [facility] Last Admin: 05/25/18 09:36 Dose: 1 tab Potassium Chloride (K-Dur 20 Meq Er Tab) 20 meq PO DAILY [facility] Last Admin: 05/25/18 09:36 Dose: 20 meq Sildenafil Citrate (Revatio) 20 mg PO TTS [facility] Tramadol HCl (Ultram) 50 mg PO DAILY [facility] Last Admin: 05/25/18 09:42 Dose: Not Given Vitamin E (Vitamin E 400 Units Cap) 400 intlu PO DAILY [facility] Last Admin: 05/25/18 09:38 Dose: 400 intlu
[2018-05-26] MEDS: Levothyroxine 25 MCG TAB PO SCH (06:05)
[2018-05-26 06:18] LABS: BASO # 0.1 K/uL (0.0-0.2); BASO % 0.8 % (0.0-2.0); EOS # 0.1 K/uL (0.0-0.7); EOS % 1.5 % (0.0-4.0); LYMPH # 2.2 K/uL (1.0-4.3); LYMPH % 24.2 % (20.0-40.0); MEAN CELL VOLUME 97.8 fl (81.0-99.0); MEAN CORPUSCULAR HEMOGLOBIN 32.1 pg (27.0-31.0); MEAN CORPUSCULAR HGB CONC 32.9 g/dL (33.0-37.0); MEAN PLATELET VOLUME 8.5 fl (7.2-11.7); MONO # 1.1 K/uL (0.0-0.8); MONO % 12.5 % (0.0-10.0); NEUT # 5.5 K/uL (1.8-7.0); NRBC % 0.1 % (0.0-0.0); RBC 3.43 Mil/uL (3.80-5.20); RED CELL DISTRIBUTION WIDTH 14.4 % (11.5-14.5); WHITE BLOOD COUNT 9.1 K/uL (4.8-10.8)
[2018-05-26 06:38] LABS: ALB/GLOB RATIO 0.9 (1.0-2.1); ALBUMIN 2.6 g/dL (3.5-5.0); ALT/SGPT 31 U/L (9-52); AST/SGOT 27 U/L (14-36); BLOOD UREA NITROGEN 19 mg/dl (7-17); CALCIUM 8.5 mg/dL (8.4-10.2); GFR NON-AFRICAN AMERICAN 53
[2018-05-26] MEDS: Multivitamin With Minerals Tab PO SCH (08:56)
[2018-05-26] MEDS: Metoprolol Succinate 25 mg XL Tab PO SCH (08:56)
[2018-05-26] MEDS: Cholecalciferol 1,000 INTLU TAB PO SCH (08:56)
[2018-05-26] MEDS: Potassium Chloride 20 mEq ER Tab PO SCH (08:56)
[2018-05-26] MEDS: Lidocaine 5% Patch TD SCH (09:02)
[2018-05-26] MEDS: Enoxaparin 40 mg Syringe SC SCH (09:02)
[2018-05-26] MEDS: Sildenafil 20 MG TAB PO SCH (09:04)
[2018-05-26] MEDS: Meropenem 500 MG in Sodium Chloride 0.9% 100 ML IVPB SCH ×2 (09:08→21:52)
--- NOTE | 2018-05-26 11:09 | CP.PCM.CON ---
History of Present Illness - History of Present Illness History of Present Illness: Follow up consultation from acute medicine. Still has cough with scant mucoid sputum. Not SOB at rest. No chest discomfort. Initially admitted to medicine with a MDR urinary tract infection and started on meropenem. Past Patient History - Infectious Disease Hx of Infectious Diseases: None - Tetanus Immunizations Tetanus Immunization: Unknown - Past Medical History & Family History Past Medical History?: Yes - Past Social History Smoking Status: Former Smoker (2 PPD, discontinued in 1982) Chewing Tobacco Use: No Cigar Use: No Alcohol: None Drugs: Denies Home Situation {Lives}: Alone - CARDIAC Hx Cardia Arrhythmia: Yes Hx Congestive Heart Failure: Yes Hx Heart Attack: Yes (1982 and 2012) Hx Hypercholesterolemia: Yes Hx Hypertension: Yes Hx Pacemaker: Yes (AICD) Hx Peripheral Edema: Yes - PULMONARY Hx Bronchitis: Yes Hx Chronic Obstructive Pulmonary Disease (COPD): Yes Hx Pneumonia: Yes Other/Comment: pulmonary hypertension - NEUROLOGICAL Hx Transient Ischemic Attacks (TIA): Yes - HEENT Hx Cataracts: Yes (Sx X 2) Other/Comment: chronic mastoiditis - RENAL Hx Chronic Kidney Disease: No - ENDOCRINE/METABOLIC Hx Hypothyroidism: Yes - HEMATOLOGICAL/ONCOLOGICAL Hx Cancer: Yes (left breast) Hx Chemotherapy: Yes Hx Human Immunodeficiency Virus (HIV): No - INTEGUMENTARY Hx Dermatological Problems: No - MUSCULOSKELETAL/RHEUMATOLOGICAL Hx Arthritis: Yes Hx Osteoporosis: Yes Hx Spinal Stenosis: Yes Hx Unsteady Gait: Yes Other/Comment: weakness LLE - GASTROINTESTINAL Hx Gastrointestinal Disorders: No - GENITOURINARY/GYNECOLOGICAL Hx Urinary Tract Infection: Yes - PSYCHIATRIC Hx Psychophysiologic Disorder: No - SURGICAL HISTORY Hx Angioplasty: Yes Hx Appendectomy: Yes Hx Cataract Extraction: Yes Hx Cardiac Catheterization: Yes Hx Cholecystectomy: Yes Hx Coronary Stent: Yes Hx Tonsillectomy: Yes - ANESTHESIA Hx Anesthesia: Yes Hx Anesthesia Reactions: No Hx Malignant Hyperthermia: No Meds Allergies/Adverse Reactions: Allergies Allergy/AdvReac Type Severity Reaction Status Date / Time No Known Allergies Allergy Verified 05/24/18 15:45 - Medications Medications: Current Medications Amiodarone HCl (Cordarone) 100 mg PO DAILY [facility] Last Admin: 05/26/18 08:59 Dose: 100 mg Anastrozole (Arimidex 1 Mg Tab) 1 mg PO DAILY [facility] Last Admin: 05/26/18 09:04 Dose: 1 mg Aspirin (Ecotrin) 81 mg PO DAILY [facility] Last Admin: 05/26/18 08:56 Dose: 81 mg Atorvastatin Calcium (Lipitor) 20 mg PO HS [facility] Last Admin: 05/25/18 22:00 Dose: 20 mg Cholecalciferol (Vitamin D) 1,000 intlu PO DAILY [facility] Last Admin: 05/26/18 08:56 Dose: 1,000 intlu Docusate Sodium (Colace) 200 mg PO DAILY [facility] Last Admin: 05/26/18 08:58 Dose: 200 mg Enoxaparin Sodium (Lovenox) 40 mg SC DAILY [facility]; Protocol Last Admin: 05/26/18 09:02 Dose: 40 mg Furosemide (Lasix) 20 mg PO DAILY [facility] Meropenem 500 mg/ Sodium (Chloride) 100 mls @ 100 mls/hr IVPB Q12H [facility] Last Admin: 05/26/18 09:08 Dose: 100 mls/hr Lactulose (Enulose) 20 gm PO DAILY PRN PRN Reason: Constipation Levothyroxine Sodium (Synthroid) 25 mcg PO DAILY@0630 [facility] Last Admin: 05/26/18 06:05 Dose: 25 mcg Lidocaine (Lidoderm) 1 ea TD DAILY [facility] Last Admin: 05/26/18 09:02 Dose: Not Given Losartan Potassium (Cozaar) 25 mg PO DAILY [facility] Last Admin: 05/26/18 08:56 Dose: 25 mg Memantine (Namenda) 10 mg PO DAILY [facility] Last Admin: 05/26/18 09:03 Dose: 10 mg Metoprolol Succinate (Toprol Xl) 25 mg PO DAILY [facility] Last Admin: 05/26/18 08:56 Dose: 25 mg Multivitamins/Minerals (Therapeutic-M Tab) 1 tab PO DAILY [facility] Last Admin: 05/26/18 08:56 Dose: 1 tab Potassium Chloride (K-Dur 20 Meq Er Tab) 20 meq PO DAILY [facility] Last Admin: 05/26/18 08:56 Dose: 20 meq Sildenafil Citrate (Revatio) 20 mg PO TTS [facility] Last Admin: 05/26/18 09:04 Dose: 20 mg Tramadol HCl (Ultram) 50 mg PO DAILY [facility] Last Admin: 05/26/18 09:03 Dose: Not Given Vitamin E (Vitamin E 400 Units Cap) 400 intlu PO DAILY [facility] Last Admin: 05/26/18 09:03 Dose: 400 intlu Physical Exam - Additional Findings Additional findings: Well-nourished and well-developed and seated in a wheelchair. Awake and alert and well-oriented. Memory is intact. Speech is fluent. There is weakness of the left lower extremity. No other focal motor weakness is noted. No palpable lymphadenopathy. No dependent edema of the lower extremities. No cyanosis. No calf tenderness or palpable venous cords. Peripheral pulses are diminished but present in both feet. The neck is supple and trachea is midline. No neck vein distention or carotid bruit. No dullness on chest percussion. Equal expansion. Breath sounds are slightly diminished bilaterally. No rales or rhonchi. No bronchial breathing or egophony. No wheezes. No bronchial breath sounds. Heart sounds are relatively well heard. The rhythm is regular. There is a soft systolic murmur at the apex. Abdomen is soft and nontender with normal bowel sounds. No CVA tenderness. Results - Vital Signs Recent Vital Signs: Last Vital Signs Temp 98.0 F 05/26/18 08:25 Pulse 65 05/26/18 08:25 Resp 18 05/26/18 08:25 BP 162/74 H 05/26/18 09:00 Pulse Ox 99 05/26/18 08:25 - Labs Result Diagrams: 05/26/18 06:00 05/26/18 06:00 Labs: Laboratory Results - last 24 hr 05/26/18 05/26/18 06:00 06:00 WBC 9.1 RBC 3.43 L Hgb 11.0 L Hct 33.5 L MCV 97.8 MCH 32.1 H MCHC 32.9 L RDW 14.4 Plt Count 193 MPV 8.5 Neut % (Auto) 61.0 Lymph % (Auto) 24.2 [place] % (Auto) 12.5 H Eos % (Auto) 1.5 Baso % (Auto) 0.8 Neut # (Auto) 5.5 Lymph # (Auto) 2.2 [place] # (Auto) 1.1 H Eos # (Auto) 0.1 Baso # (Auto) 0.1 Sodium 138 Potassium 4.4 Chloride 108 H Carbon Dioxide 26 Anion Gap 8 L BUN 19 H Creatinine 1.0 Est GFR ( Amer) > 60 Est GFR (Non-Af Amer) 53 Random Glucose 80 Calcium 8.5 Total Bilirubin 0.3 AST 27 ALT 31 Alkaline Phosphatase 44 Total Protein 5.5 L Albumin 2.6 L Globulin 2.9 Albumin/Globulin Ratio 0.9 L Assessment & Plan (1) Gait abnormality Status: Chronic Priority: High (2) General weakness Status: Acute Priority: High (3) UTI (urinary tract infection) Status: Acute Priority: High (4) COPD (chronic obstructive pulmonary disease) Status: Chronic Priority: Medium (5) Physical deconditioning Status: Chronic Priority: Medium (6) Pulmonary hypertension Status: Chronic Priority: High - Date & Time Date: 05/26/18 Time: 11:09
[2018-05-27] MEDS: Levothyroxine 25 MCG TAB PO SCH (05:59)
[2018-05-27] MEDS: Meropenem 500 MG in Sodium Chloride 0.9% 100 ML IVPB SCH ×2 (08:22→21:31)
[2018-05-27] MEDS: Enoxaparin 40 mg Syringe SC SCH (08:23)
[2018-05-27] MEDS: Metoprolol Succinate 25 mg XL Tab PO SCH (08:24)
[2018-05-27] MEDS: Cholecalciferol 1,000 INTLU TAB PO SCH (08:24)
[2018-05-27] MEDS: Multivitamin With Minerals Tab PO SCH (08:25)
[2018-05-27] MEDS: Potassium Chloride 20 mEq ER Tab PO SCH (08:25)
[2018-05-27] MEDS: Lidocaine 5% Patch TD SCH (08:32)
[2018-05-28] MEDS: Levothyroxine 25 MCG TAB PO SCH (06:54)
[2018-05-28] MEDS: Multivitamin With Minerals Tab PO SCH (09:18)
[2018-05-28] MEDS: Cholecalciferol 1,000 INTLU TAB PO SCH (09:18)
[2018-05-28] MEDS: Potassium Chloride 20 mEq ER Tab PO SCH (09:19)
[2018-05-28] MEDS: Enoxaparin 40 mg Syringe SC SCH (09:19)
[2018-05-28] MEDS: Metoprolol Succinate 25 mg XL Tab PO SCH (09:20)
[2018-05-28] MEDS: Meropenem 500 MG in Sodium Chloride 0.9% 100 ML IVPB SCH ×2 (09:24→20:47)
[2018-05-28] MEDS: Lidocaine 5% Patch TD SCH (09:24)
[2018-05-28] MEDS: Sildenafil 20 MG TAB PO SCH (09:25)
--- NOTE | 2018-05-28 16:52 | CP.PCM.PN ---
Subjective - Date & Time of Evaluation Date of Evaluation: 05/28/18 Time of Evaluation: 16:30 - Subjective Subjective: I D NOTE AFEBRILE FOLLOWUP URINE CULTURES ARE NEGATIVE HOPEFULLY WILL TAKE CARE OF WHAT APPEARS TO BE A CHRONIC/RECURRENT KLEBSIELLA UTI Objective - Vital Signs/Intake and Output Vital Signs (last 24 hours): Temp Pulse Resp BP Pulse Ox 98.3 F 57 L 20 114/69 95 05/28/18 16:20 05/28/18 16:20 05/28/18 16:20 05/28/18 16:20 05/28/18 16:20 - Medications Medications: Current Medications Amiodarone HCl (Cordarone) 100 mg PO DAILY [facility] Last Admin: 05/28/18 09:20 Dose: 100 mg Anastrozole (Arimidex 1 Mg Tab) 1 mg PO DAILY [facility] Last Admin: 05/28/18 09:22 Dose: 1 mg Aspirin (Ecotrin) 81 mg PO DAILY [facility] Last Admin: 05/28/18 09:19 Dose: 81 mg Atorvastatin Calcium (Lipitor) 20 mg PO HS [facility] Last Admin: 05/27/18 21:30 Dose: 20 mg Cholecalciferol (Vitamin D) 1,000 intlu PO DAILY [facility] Last Admin: 05/28/18 09:18 Dose: 1,000 intlu Docusate Sodium (Colace) 200 mg PO DAILY [facility] Last Admin: 05/28/18 09:20 Dose: 200 mg Furosemide (Lasix) 20 mg PO DAILY [facility] Last Admin: 05/28/18 09:24 Dose: 20 mg Meropenem 500 mg/ Sodium (Chloride) 100 mls @ 100 mls/hr IVPB Q12H [facility] Last Admin: 05/28/18 09:24 Dose: 100 mls/hr Lactulose (Enulose) 20 gm PO DAILY PRN PRN Reason: Constipation Levothyroxine Sodium (Synthroid) 25 mcg PO DAILY@0630 [facility] Last Admin: 05/28/18 06:54 Dose: 25 mcg Lidocaine (Lidoderm) 1 ea TD DAILY [facility] Last Admin: 05/28/18 09:24 Dose: Not Given Losartan Potassium (Cozaar) 25 mg PO DAILY [facility] Last Admin: 05/28/18 09:19 Dose: 25 mg Memantine (Namenda) 10 mg PO DAILY [facility] Last Admin: 05/28/18 09:20 Dose: 10 mg Metoprolol Succinate (Toprol Xl) 25 mg PO DAILY [facility] Last Admin: 05/28/18 09:20 Dose: 25 mg Multivitamins/Minerals (Therapeutic-M Tab) 1 tab PO DAILY [facility] Last Admin: 05/28/18 09:18 Dose: 1 tab Potassium Chloride (K-Dur 20 Meq Er Tab) 20 meq PO DAILY [facility] Last Admin: 05/28/18 09:19 Dose: 20 meq Sildenafil Citrate (Revatio) 20 mg PO TTS [facility] Last Admin: 05/28/18 09:25 Dose: 20 mg Vitamin E (Vitamin E 400 Units Cap) 400 intlu PO DAILY [facility] Last Admin: 05/28/18 09:19 Dose: 400 intlu - Labs Labs: 05/26/18 06:00 05/26/18 06:00
[2018-05-29] MEDS: Levothyroxine 25 MCG TAB PO SCH (06:21)
[2018-05-29] MEDS: Potassium Chloride 20 mEq ER Tab PO SCH (09:43)
[2018-05-29] MEDS: Meropenem 500 MG in Sodium Chloride 0.9% 100 ML IVPB SCH ×2 (09:44→21:48)
[2018-05-29] MEDS: Multivitamin With Minerals Tab PO SCH (09:44)
[2018-05-29] MEDS: Lidocaine 5% Patch TD SCH ×2 (09:44→09:53)
[2018-05-29] MEDS: Cholecalciferol 1,000 INTLU TAB PO SCH (09:45)
[2018-05-29] MEDS: Metoprolol Succinate 25 mg XL Tab PO SCH (09:45)
[2018-05-29] MEDS: Enoxaparin 40 mg Syringe SC SCH (11:42)
[2018-05-30] MEDS: Levothyroxine 25 MCG TAB PO SCH (06:05)
[2018-05-30] MEDS: Enoxaparin 40 mg Syringe SC SCH (09:29)
[2018-05-30] MEDS: Cholecalciferol 1,000 INTLU TAB PO SCH (09:30)
[2018-05-30] MEDS: Multivitamin With Minerals Tab PO SCH (09:32)
[2018-05-30] MEDS: Potassium Chloride 20 mEq ER Tab PO SCH (09:33)
[2018-05-30] MEDS: Metoprolol Succinate 25 mg XL Tab PO SCH (09:33)
[2018-05-30] MEDS: Meropenem 500 MG in Sodium Chloride 0.9% 100 ML IVPB SCH ×2 (09:34→21:00)
[2018-05-31] MEDS: Levothyroxine 25 MCG TAB PO SCH (06:41)
[2018-05-31] MEDS: Meropenem 500 MG in Sodium Chloride 0.9% 100 ML IVPB SCH (08:09)
[2018-05-31] MEDS: Enoxaparin 40 mg Syringe SC SCH (08:10)
[2018-05-31] MEDS: Cholecalciferol 1,000 INTLU TAB PO SCH (08:10)
[2018-05-31] MEDS: Sildenafil 20 MG TAB PO SCH (08:10)
[2018-05-31] MEDS: Multivitamin With Minerals Tab PO SCH (08:11)
[2018-05-31] MEDS: Metoprolol Succinate 25 mg XL Tab PO SCH (08:12)
[2018-05-31] MEDS: Potassium Chloride 20 mEq ER Tab PO SCH (08:12)
--- NOTE | 2018-05-31 12:00 | CP.PCM.PN ---
Subjective - Date & Time of Evaluation Date of Evaluation: 05/31/18 Time of Evaluation: 11:58 - Subjective Subjective: Doing well. Will complete antibiotic therapy today. Had slip and fall in shower this morning. C/O low back pain. Will give acetaminophen for pain and x-ray LSS. Discontinue antibiotic theraoy and repeat UA. Objective - Vital Signs/Intake and Output Vital Signs (last 24 hours): Temp Pulse Resp BP Pulse Ox 97.5 F L 59 L 20 130/69 97 05/31/18 09:12 05/31/18 09:12 05/31/18 09:12 05/31/18 09:12 05/31/18 09:12 - Medications Medications: Current Medications Amiodarone HCl (Cordarone) 100 mg PO DAILY [facility] Last Admin: 05/31/18 08:11 Dose: 100 mg Anastrozole (Arimidex 1 Mg Tab) 1 mg PO DAILY [facility] Last Admin: 05/31/18 08:13 Dose: 1 mg Aspirin (Ecotrin) 81 mg PO DAILY [facility] Last Admin: 05/31/18 08:12 Dose: 81 mg Atorvastatin Calcium (Lipitor) 20 mg PO HS [facility] Last Admin: 05/30/18 23:07 Dose: 20 mg Cholecalciferol (Vitamin D) 1,000 intlu PO DAILY [facility] Last Admin: 05/31/18 08:10 Dose: 1,000 intlu Docusate Sodium (Colace) 200 mg PO DAILY [facility] Last Admin: 05/31/18 08:12 Dose: 200 mg Enoxaparin Sodium (Lovenox) 40 mg SC DAILY [facility]; Protocol Last Admin: 05/31/18 08:10 Dose: 40 mg Furosemide (Lasix) 20 mg PO DAILY [facility] Last Admin: 05/31/18 08:12 Dose: 20 mg Meropenem 500 mg/ Sodium (Chloride) 100 mls @ 100 mls/hr IVPB Q12H [facility] Stop: 05/31/18 23:59 Last Admin: 05/31/18 08:09 Dose: 100 mls/hr Lactulose (Enulose) 20 gm PO DAILY PRN PRN Reason: Constipation Levothyroxine Sodium (Synthroid) 25 mcg PO DAILY@0630 [facility] Last Admin: 05/31/18 06:41 Dose: 25 mcg Losartan Potassium (Cozaar) 25 mg PO DAILY [facility] Last Admin: 05/31/18 08:10 Dose: 25 mg Memantine (Namenda) 10 mg PO DAILY [facility] Last Admin: 05/31/18 08:12 Dose: 10 mg Metoprolol Succinate (Toprol Xl) 25 mg PO DAILY [facility] Last Admin: 05/31/18 08:12 Dose: 25 mg Multivitamins/Minerals (Therapeutic-M Tab) 1 tab PO DAILY [facility] Last Admin: 05/31/18 08:11 Dose: 1 tab Potassium Chloride (K-Dur 20 Meq Er Tab) 20 meq PO DAILY [facility] Last Admin: 05/31/18 08:12 Dose: 20 meq Sildenafil Citrate (Revatio) 20 mg PO TTS [facility] Last Admin: 05/31/18 08:10 Dose: 20 mg Vitamin E (Vitamin E 400 Units Cap) 400 intlu PO DAILY [facility] Last Admin: 05/31/18 08:11 Dose: 400 intlu - Labs Labs: 05/26/18 06:00 05/26/18 06:00 Assessment and Plan (1) Gait abnormality Status: Chronic (2) General weakness Status: Acute (3) UTI (urinary tract infection) Status: Acute (4) COPD (chronic obstructive pulmonary disease) Status: Chronic (5) Physical deconditioning Status: Chronic (6) Pulmonary hypertension Status: Chronic
--- NOTE | 2018-05-31 13:44 | RAD ---
Date of service: 05/31/2018 PROCEDURE: Radiographs of the Lumbar Spine. HISTORY: pain/fall COMPARISON: Lumbar spine CT without contrast 07/01/2017. FINDINGS: BONES: Straightened lumbar curvature with limited grade 1 spondylolisthesis reiterated L2-3, grade 1. Gross degenerative disc and facet joint changes are identified diffusely but seen worst from L2-3 to L5-S1 once again. No vertebral body fracture identified grossly. Scoliotic deformity stable. DISC SPACES: Marked disc height loss remains at L3-4 and L4-5. OTHER FINDINGS: None. IMPRESSION: Advanced degenerative disc and facet joint changes are appreciated primarily at mid and inferior levels likely not significantly changed in the interval. No definite acute fracture identified. Stable grade 1 spondylolisthesis L2-3. Stable scoliotic deformity.
--- NOTE | 2018-05-31 19:32 | CP.PCM.PN ---
Subjective - Date & Time of Evaluation Date of Evaluation: 05/31/18 Time of Evaluation: 17:30 - Subjective Subjective: Patient seen and examined. Denied any complaint. Objective - Vital Signs/Intake and Output Vital Signs (last 24 hours): Temp Pulse Resp BP Pulse Ox 97.7 F 60 18 106/62 99 05/31/18 16:32 05/31/18 16:32 05/31/18 16:32 05/31/18 16:32 05/31/18 16:32 - Medications Medications: Current Medications Amiodarone HCl (Cordarone) 100 mg PO DAILY [facility] Last Admin: 05/31/18 08:11 Dose: 100 mg Anastrozole (Arimidex 1 Mg Tab) 1 mg PO DAILY [facility] Last Admin: 05/31/18 08:13 Dose: 1 mg Aspirin (Ecotrin) 81 mg PO DAILY [facility] Last Admin: 05/31/18 08:12 Dose: 81 mg Atorvastatin Calcium (Lipitor) 20 mg PO HS [facility] Last Admin: 05/30/18 23:07 Dose: 20 mg Cholecalciferol (Vitamin D) 1,000 intlu PO DAILY [facility] Last Admin: 05/31/18 08:10 Dose: 1,000 intlu Docusate Sodium (Colace) 200 mg PO DAILY [facility] Last Admin: 05/31/18 08:12 Dose: 200 mg Enoxaparin Sodium (Lovenox) 40 mg SC DAILY [facility]; Protocol Last Admin: 05/31/18 08:10 Dose: 40 mg Furosemide (Lasix) 20 mg PO DAILY [facility] Last Admin: 05/31/18 08:12 Dose: 20 mg Lactulose (Enulose) 20 gm PO DAILY PRN PRN Reason: Constipation Levothyroxine Sodium (Synthroid) 25 mcg PO DAILY@0630 [facility] Last Admin: 05/31/18 06:41 Dose: 25 mcg Losartan Potassium (Cozaar) 25 mg PO DAILY [facility] Last Admin: 05/31/18 08:10 Dose: 25 mg Memantine (Namenda) 10 mg PO DAILY [facility] Last Admin: 05/31/18 08:12 Dose: 10 mg Metoprolol Succinate (Toprol Xl) 25 mg PO DAILY [facility] Last Admin: 05/31/18 08:12 Dose: 25 mg Multivitamins/Minerals (Therapeutic-M Tab) 1 tab PO DAILY [facility] Last Admin: 05/31/18 08:11 Dose: 1 tab Potassium Chloride (K-Dur 20 Meq Er Tab) 20 meq PO DAILY [facility] Last Admin: 05/31/18 08:12 Dose: 20 meq Sildenafil Citrate (Revatio) 20 mg PO TTS [facility] Last Admin: 05/31/18 08:10 Dose: 20 mg Vitamin E (Vitamin E 400 Units Cap) 400 intlu PO DAILY [facility] Last Admin: 05/31/18 08:11 Dose: 400 intlu - Labs Labs: 05/26/18 06:00 05/26/18 06:00 - Constitutional Appears: No Acute Distress - Head Exam Head Exam: ATRAUMATIC - Eye Exam Eye Exam: absent: Scleral icterus - ENT Exam ENT Exam: Mucous Membranes Moist - Neck Exam Neck Exam: absent: Meningismus - Respiratory Exam Respiratory Exam: absent: Rales, Rhonchi, Wheezes, Respiratory Distress - Cardiovascular Exam Cardiovascular Exam: REGULAR RHYTHM, +S1, +S2 - GI/Abdominal Exam GI & Abdominal Exam: Soft. absent: Tenderness - Rectal Exam Rectal Exam: Deferred - Neurological Exam Neurological Exam: Alert, Oriented x3 - Psychiatric Exam Psychiatric exam: Normal Affect - Skin Skin Exam: Dry, Intact Assessment and Plan - Assessment and Plan (Free Text) Assessment: 81 yo female with history of Cardiomyopathy with AICD, Pulmonary HTN, COPD, HTN, HLD, Hypothyroidism, Osteoporosis, RA and CKD stage III admitted for UTI secondary to Klebsiella Pneumonia. Patient was started on Meropenem as per advise from ID for a total of 10 days. 1. UTI completed 10 day course of IV Meropenem repeat urinalysis 2. Pulmonary HTN/COPD continue Sildenafil 3. HTN BP stable continue Metoprolol 4. Cardiomyopathy with AICD continue Amiodarone 5. Hypothyroidism continue Levothyroxine 6. Alzheimer Dementia continue Memantine 7. DVT prophylaxis on Lovenox
[2018-06-01 05:55] LABS: SQUAMOUS EPITHIAL 2 /hpf (0-5); URINE BILIRUBIN NEGATIVE (NEGATIVE); URINE BLOOD NEGATIVE (NEGATIVE); URINE CLARITY CLEAR (Clear); URINE COLOR YELLOW (YELLOW); URINE GLUCOSE (UA) NEG (NEGATIVE); URINE LEUKOCYTE ESTERASE NEG Leu/uL (Negative); URINE PROTEIN NEGATIVE (NEGATIVE); URINE UROBILINOGEN 0.2-1.0 mg/dL (0.2-1.0)
[2018-06-01] MEDS: Levothyroxine 25 MCG TAB PO SCH (06:14)
[2018-06-01 06:20] LABS: HEMOGLOBIN 11.2 g/dL (12.0-16.0); MEAN CELL VOLUME 96.9 fl (81.0-99.0); MEAN CORPUSCULAR HEMOGLOBIN 32.3 pg (27.0-31.0); MEAN CORPUSCULAR HGB CONC 33.3 g/dL (33.0-37.0); RBC 3.48 Mil/uL (3.80-5.20); RED CELL DISTRIBUTION WIDTH 14.6 % (11.5-14.5); WHITE BLOOD COUNT 8.4 K/uL (4.8-10.8)
[2018-06-01 06:28] LABS: BLOOD UREA NITROGEN 22 mg/dl (7-17); GFR NON-AFRICAN AMERICAN 53
[2018-06-01 06:29] LABS: CALCIUM 9.1 mg/dL (8.4-10.2)
[2018-06-01] MEDS: Enoxaparin 40 mg Syringe SC SCH (09:12)
[2018-06-01] MEDS: Potassium Chloride 20 mEq ER Tab PO SCH (09:12)
[2018-06-01] MEDS: Multivitamin With Minerals Tab PO SCH (09:13)
[2018-06-01] MEDS: Metoprolol Succinate 25 mg XL Tab PO SCH (09:14)
[2018-06-01] MEDS: Cholecalciferol 1,000 INTLU TAB PO SCH (09:15)
[2018-06-02] MEDS: Levothyroxine 25 MCG TAB PO SCH (06:58)
[2018-06-02] MEDS: Metoprolol Succinate 25 mg XL Tab PO SCH (08:15)
[2018-06-02] MEDS: Sildenafil 20 MG TAB PO SCH (08:15)
[2018-06-02] MEDS: Enoxaparin 40 mg Syringe SC SCH (08:15)
[2018-06-02] MEDS: Potassium Chloride 20 mEq ER Tab PO SCH (08:15)
[2018-06-02] MEDS: Multivitamin With Minerals Tab PO SCH (08:16)
[2018-06-02] MEDS: Cholecalciferol 1,000 INTLU TAB PO SCH (08:16)
--- NOTE | 2018-06-02 11:55 | CP.PCM.PN ---
Subjective - Date & Time of Evaluation Date of Evaluation: 06/02/18 Time of Evaluation: 11:55 - Subjective Subjective: doing well no complaints hd stbale nad Objective - Vital Signs/Intake and Output Vital Signs (last 24 hours): Temp Pulse Resp BP Pulse Ox 97.6 F 63 20 140/70 99 06/02/18 08:28 06/02/18 08:28 06/02/18 08:28 06/02/18 11:18 06/02/18 08:28 GEN: WDWN, ALERT, COOPERATIVE HEENT: NCAT, PERRL, EOMI HEART: +S1+S2, RRR NO MRG LUNG: CTAB, NO WRR ABD: SOFT BSX4 NT ND NO HSM NO MASS EXT: WARM, WELL PERFUSED NEURO: AWAKE, ALERT, REFLEXES NORMAL SKIN: WARM DRY PSYCH: NORMAL MOOD NORMAL AFFECT - Medications Medications: Current Medications Acetaminophen (Tylenol 325mg Tab) 650 mg PO Q4 PRN PRN Reason: for pain level 4-7 Last Admin: 06/01/18 15:36 Dose: 650 mg Amiodarone HCl (Cordarone) 100 mg PO DAILY [facility] Last Admin: 06/02/18 08:19 Dose: 100 mg Anastrozole (Arimidex 1 Mg Tab) 1 mg PO DAILY [facility] Last Admin: 06/02/18 08:17 Dose: 1 mg Aspirin (Ecotrin) 81 mg PO DAILY [facility] Last Admin: 06/02/18 08:19 Dose: 81 mg Atorvastatin Calcium (Lipitor) 20 mg PO HS [facility] Last Admin: 06/01/18 22:40 Dose: 20 mg Cholecalciferol (Vitamin D) 1,000 intlu PO DAILY [facility] Last Admin: 06/02/18 08:16 Dose: 1,000 intlu Docusate Sodium (Colace) 200 mg PO DAILY [facility] Last Admin: 06/02/18 08:16 Dose: 200 mg Enoxaparin Sodium (Lovenox) 40 mg SC DAILY [facility]; Protocol Last Admin: 06/02/18 08:15 Dose: 40 mg Furosemide (Lasix) 20 mg PO DAILY [facility] Last Admin: 06/02/18 08:16 Dose: 20 mg Lactulose (Enulose) 20 gm PO DAILY PRN PRN Reason: Constipation Levothyroxine Sodium (Synthroid) 25 mcg PO DAILY@0630 [facility] Last Admin: 06/02/18 06:58 Dose: 25 mcg Losartan Potassium (Cozaar) 25 mg PO DAILY [facility] Last Admin: 06/02/18 08:22 Dose: 25 mg Memantine (Namenda) 10 mg PO DAILY [facility] Last Admin: 06/02/18 08:16 Dose: 10 mg Metoprolol Succinate (Toprol Xl) 25 mg PO DAILY [facility] Last Admin: 06/02/18 08:15 Dose: 25 mg Multivitamins/Minerals (Therapeutic-M Tab) 1 tab PO DAILY [facility] Last Admin: 06/02/18 08:16 Dose: 1 tab Potassium Chloride (K-Dur 20 Meq Er Tab) 20 meq PO DAILY [facility] Last Admin: 06/02/18 08:15 Dose: 20 meq Sildenafil Citrate (Revatio) 20 mg PO TTS [facility] Last Admin: 06/02/18 08:15 Dose: 20 mg Vitamin E (Vitamin E 400 Units Cap) 400 intlu PO DAILY [facility] Last Admin: 06/02/18 08:18 Dose: 400 intlu - Labs Labs: 06/01/18 05:45 06/01/18 05:45 Assessment and Plan - Assessment and Plan (Free Text) Plan: 81 yo female with history of Cardiomyopathy with AICD, Pulmonary HTN, COPD, HTN, HLD, Hypothyroidism, Osteoporosis, RA and CKD stage III admitted for UTI secondary to Klebsiella Pneumonia. Patient was started on Meropenem as per advise from ID for a total of 10 days. 1. UTI completed 10 day course of IV Meropenem repeat urinalysis 2. Pulmonary HTN/COPD continue Sildenafil 3. HTN BP stable continue Metoprolol 4. Cardiomyopathy with AICD continue Amiodarone 5. Hypothyroidism continue Levothyroxine 6. Alzheimer Dementia continue Memantine 7. DVT prophylaxis on Lovenox
[2018-06-03] MEDS: Levothyroxine 25 MCG TAB PO SCH (07:00)
[2018-06-03] MEDS: Potassium Chloride 20 mEq ER Tab PO SCH (10:15)
[2018-06-03] MEDS: Enoxaparin 40 mg Syringe SC SCH (10:15)
[2018-06-03] MEDS: Metoprolol Succinate 25 mg XL Tab PO SCH (10:16)
[2018-06-03] MEDS: Multivitamin With Minerals Tab PO SCH (10:16)
[2018-06-03] MEDS: Cholecalciferol 1,000 INTLU TAB PO SCH (10:16)
--- NOTE | 2018-06-03 14:42 | CP.PCM.PN ---
Subjective - Date & Time of Evaluation Date of Evaluation: 06/03/18 Time of Evaluation: 14:42 - Subjective Subjective: Appears comfortable lying in bed. Has complaint of low back pain as well as discomfort in the left hip. Has completed antibiotic regimen and follow up UA is unremarkable. Plan is for discharge to home tomorrow. Objective - Vital Signs/Intake and Output Vital Signs (last 24 hours): Temp Pulse Resp BP Pulse Ox 97.7 F 62 20 148/78 99 06/03/18 07:59 06/03/18 10:16 06/03/18 07:59 06/03/18 10:16 06/03/18 07:59 - Medications Medications: Current Medications Acetaminophen (Tylenol 325mg Tab) 650 mg PO Q4 PRN PRN Reason: for pain level 4-7 Last Admin: 06/03/18 14:04 Dose: 650 mg Amiodarone HCl (Cordarone) [address] [facility] Last Admin: 06/03/18 10:14 Dose: 100 mg Anastrozole (Arimidex 1 Mg Tab) [address] [facility] Last Admin: 06/03/18 10:13 Dose: 1 mg Aspirin (Ecotrin) [address] [facility] Last Admin: 06/03/18 10:15 Dose: 81 mg Atorvastatin Calcium (Lipitor) [address] [facility] Last Admin: 06/02/18 22:32 Dose: 20 mg Cholecalciferol (Vitamin D) 1,[address] [facility] Last Admin: 06/03/18 10:16 Dose: 1,000 intlu Docusate Sodium (Colace) [address] [facility] Last Admin: 06/03/18 10:13 Dose: 200 mg Enoxaparin Sodium (Lovenox) [address] [facility]; Protocol Last Admin: 06/03/18 10:15 Dose: 40 mg Furosemide (Lasix) [address] [facility] Last Admin: 06/03/18 10:15 Dose: 20 mg Lactulose (Enulose) 20 gm PO DAILY PRN PRN Reason: Constipation Levothyroxine Sodium (Synthroid) 25 mcg PO DAILY@0630 [facility] Last Admin: 06/03/18 07:00 Dose: 25 mcg Losartan Potassium (Cozaar) [address] [facility] Last Admin: 06/03/18 10:14 Dose: 25 mg Memantine (Namenda) [address] [facility] Last Admin: 06/03/18 10:15 Dose: 10 mg Metoprolol Succinate (Toprol Xl) [address] [facility] Last Admin: 06/03/18 10:16 Dose: 25 mg Multivitamins/Minerals (Therapeutic-M Tab) [address] [facility] Last Admin: 06/03/18 10:16 Dose: 1 tab Potassium Chloride (K-Dur 20 Meq Er Tab) [address] [facility] Last Admin: 06/03/18 10:15 Dose: 20 meq Sildenafil Citrate (Revatio) [address] [facility] Last Admin: 06/02/18 08:15 Dose: 20 mg Vitamin E (Vitamin E 400 Units Cap) [address] [facility] Last Admin: 06/03/18 10:16 Dose: 400 intlu - Labs Labs: 06/01/18 05:45 06/01/18 05:45 Assessment and Plan (1) Gait abnormality Status: Chronic (2) General weakness Status: Acute (3) UTI (urinary tract infection) Status: Acute (4) COPD (chronic obstructive pulmonary disease) Status: Chronic (5) Physical deconditioning Status: Chronic (6) Pulmonary hypertension Status: Chronic
[2018-06-04] MEDS: Levothyroxine 25 MCG TAB PO SCH (05:34)
[2018-06-04 08:39] VITALS: BP 147/82; PULSE 61; RESP 18; TEMP 98.3; O2SAT 98
[2018-06-04] MEDS: Enoxaparin 40 mg Syringe SC SCH (09:30)
[2018-06-04] MEDS: Multivitamin With Minerals Tab PO SCH (09:31)
[2018-06-04] MEDS: Cholecalciferol 1,000 INTLU TAB PO SCH (09:31)
[2018-06-04] MEDS: Metoprolol Succinate 25 mg XL Tab PO SCH (09:31)
[2018-06-04] MEDS: Potassium Chloride 20 mEq ER Tab PO SCH (09:31)
[2018-06-04] MEDS: Sildenafil 20 MG TAB PO SCH (09:31)
--- NOTE | 2018-06-04 10:52 | CP.PCM.DIS ---
Provider - Provider Date of Admission: 05/24/18 17:05 Attending physician: Mohan Hernandez MD Consults: 05/24/18 17:42 Infectious Disease Consult Routine Comment: Consulting Provider: Edgardo Novoa Consulting Physician: Edgardo Novoa Reason for Consult: ESBL UTI 05/24/18 17:43 Pulmonology Consult Routine Comment: Consulting Provider: Filiberto Gomez Consulting Physician: Filiberto Gomez Reason for Consult: Pulmonary HTN 05/24/18 18:39 Nursing Referral for Wound Care Routine Comment: Physician Instructions: Reason For Exam: new pt incontinent with bladder Time Spent in preparation of Discharge (in minutes): 25 Diagnosis - Discharge Diagnosis (1) UTI (urinary tract infection) Status: Resolved Priority: High Comment: completed 10 days of IV Meropenem (2) Pulmonary arterial hypertension Status: Chronic Priority: High Comment: continue Sildenafil (3) HTN (hypertension) Status: Chronic Priority: Medium Comment: BP controlled. continue Metoprolol (4) Cardiomyopathy Status: Chronic Priority: High Comment: continue Amiodarone (5) Hypothyroidism Status: Chronic Priority: Medium Comment: continue Levothyroxine Hospital Course - Lab Results Lab Results: Micro Results 05/29/18 04:30 Urine,Clean Catch Urine Culture - Final No Growth (<1,000 CFU/ML) Most Recent Lab Values WBC 8.4 K/uL (4.8-10.8) 06/01/18 05:45 RBC 3.48 Mil/uL (3.80-5.20) L 06/01/18 05:45 Hgb 11.2 g/dL (12.0-16.0) L 06/01/18 05:45 Hct 33.7 % (34.0-47.0) L 06/01/18 05:45 MCV 96.9 fl (81.0-99.0) 06/01/18 05:45 MCH 32.3 pg (27.0-31.0) H 06/01/18 05:45 MCHC 33.3 g/dL (33.0-37.0) 06/01/18 05:45 RDW 14.6 % (11.5-14.5) H 06/01/18 05:45 Plt Count 257 K/uL (130-400) 06/01/18 05:45 MPV 8.5 fl (7.2-11.7) 05/26/18 06:00 Neut % (Auto) 61.0 % (50.0-75.0) 05/26/18 06:00 Lymph % (Auto) 24.2 % (20.0-40.0) 05/26/18 06:00 [place] % (Auto) 12.5 % (0.0-10.0) H 05/26/18 06:00 Eos % (Auto) 1.5 % (0.0-4.0) 05/26/18 06:00 Baso % (Auto) 0.8 % (0.0-2.0) 05/26/18 06:00 Neut # (Auto) 5.5 K/uL (1.8-7.0) 05/26/18 06:00 Lymph # (Auto) 2.2 K/uL (1.0-4.3) 05/26/18 06:00 Kendall # (Auto) 1.1 K/uL (0.0-0.8) H 05/26/18 06:00 Eos # (Auto) 0.1 K/uL (0.0-0.7) 05/26/18 06:00 Baso # (Auto) 0.1 K/uL (0.0-0.2) 05/26/18 06:00 Sodium 139 mmol/l (132-148) 06/01/18 05:45 Potassium 4.8 MMOL/L (3.6-5.0) 06/01/18 05:45 Chloride 107 mmol/L (98-107) 06/01/18 05:45 Carbon Dioxide 28 mmol/L (22-30) 06/01/18 05:45 Anion Gap 9 (10-20) L 06/01/18 05:45 BUN 22 mg/dl (7-17) H 06/01/18 05:45 Creatinine 1.0 mg/dl (0.7-1.2) 06/01/18 05:45 Est GFR ( Amer) > 60 06/01/18 05:45 Est GFR (Non-Af Amer) 53 06/01/18 05:45 Random Glucose 86 mg/dL (65-105) 06/01/18 05:45 Calcium 9.1 mg/dL (8.4-10.2) 06/01/18 05:45 Total Bilirubin 0.3 mg/dl (0.2-1.3) 05/26/18 06:00 AST 27 U/L (14-36) 05/26/18 06:00 ALT 31 U/L (9-52) 05/26/18 06:00 Alkaline Phosphatase 44 U/L (38-126) 05/26/18 06:00 Total Protein 5.5 G/DL (6.3-8.2) L 05/26/18 06:00 Albumin 2.6 g/dL (3.5-5.0) L 05/26/18 06:00 Globulin 2.9 gm/dL (2.2-3.9) 05/26/18 06:00 Albumin/Globulin Ratio 0.9 (1.0-2.1) L 05/26/18 06:00 Urine Color Yellow (YELLOW) 06/01/18 05:40 Urine Clarity Clear (Clear) 06/01/18 05:40 Urine pH 6.0 (5.0-8.0) 06/01/18 05:40 Ur Specific [place] 1.012 (1.003-1.030) 06/01/18 05:40 Urine Protein Negative mg/dL (NEGATIVE) 06/01/18 05:40 Urine Glucose (UA) Neg mg/dL (NEGATIVE) 06/01/18 05:40 Urine Ketones Negative mg/dL (NEGATIVE) 06/01/18 05:40 Urine Blood Negative (NEGATIVE) 06/01/18 05:40 Urine Nitrate Negative (NEGATIVE) 06/01/18 05:40 Urine Bilirubin Negative (NEGATIVE) 06/01/18 05:40 Urine Urobilinogen 0.2-1.0 mg/dL (0.2-1.0) 06/01/18 05:40 Ur Leukocyte Esterase Neg Kj/uL (Negative) 06/01/18 05:40 Urine RBC (Auto) 1 /hpf (0-3) 06/01/18 05:40 Urine Microscopic WBC 2 /hpf (0-5) 06/01/18 05:40 Ur Squamous Epith Cells 2 /hpf (0-5) 06/01/18 05:40 - Hospital Course Hospital Course: 81 yo female with history of Cardiomyopathy with AICD, Pulmonary HTN, COPD, HTN, HLD, Hypothyroidism, Osteoporosis, RA and CKD stage III admitted for UTI second marylou to Klebsiella Pneumonia. Patient was started on Meropenem as per advise from ID for a total of 10 days. Patient completed 10 days of IV Meropenem and now is ready for discharge in stable condition. Discharge Exam - Head Exam Head Exam: ATRAUMATIC - Eye Exam Eye Exam: absent: Scleral icterus - ENT Exam ENT Exam: Mucous Membranes Moist - Respiratory Exam Respiratory Exam: absent: Rales, Rhonchi, Wheezes, Respiratory Distress - Cardiovascular Exam Cardiovascular Exam: REGULAR RHYTHM, +S1, +S2 - GI/Abdominal Exam GI & Abdominal Exam: Soft. absent: Tenderness - Rectal Exam Rectal Exam: Deferred - Neurological Exam Neurological exam: Alert, Oriented x3 - Psychiatric Exam Psychiatric exam: Normal Affect - Skin Skin Exam: Dry, Intact Discharge Plan - Follow Up Plan Condition: GOOD Disposition: HOME/ ROUTINE Instructions: Urinary Tract Infection, Adult (DC)
== END 2018-06-04 11:10 | disposition home or self-care (01) | DRG 690 ==
LOC: H.TCU 17:05
PROC: 3E03329 Introduction of Other Anti-infective into Peripheral Vein, Percutaneous Approach (ICD-10-PCS; principal; 2018-05-24)
PROC: F07Z9FZ Gait Training/Functional Ambulation Treatment using Assistive, Adaptive, Supportive or Protective Equipment (ICD-10-PCS; 2018-05-24)
PROC: F08Z4FZ Home Management Treatment using Assistive, Adaptive, Supportive or Protective Equipment (ICD-10-PCS; 2018-05-24)
PROC: F07M6FZ Therapeutic Exercise Treatment of Musculoskeletal System - Whole Body using Assistive, Adaptive, Supportive or Protective Equipment (ICD-10-PCS; 2018-05-25)
DX: N39.0 Urinary tract infection, site not specified (principal); I42.9 Cardiomyopathy, unspecified; B96.20 Unspecified Escherichia coli [E. coli] as the cause of diseases classified elsewhere; Z16.12 Extended spectrum beta lactamase (ESBL) resistance; B96.1 Klebsiella pneumoniae [K. pneumoniae] as the cause of diseases classified elsewhere; G30.9 Alzheimer's disease, unspecified; F02.80 Dementia in other diseases classified elsewhere, unspecified severity, without behavioral disturbance, psychotic disturbance, mood disturbance, and anxiety; Z95.810 Presence of automatic (implantable) cardiac defibrillator; Z95.5 Presence of coronary angioplasty implant and graft; I48.0 Paroxysmal atrial fibrillation; I27.21 Secondary pulmonary arterial hypertension; M06.9 Rheumatoid arthritis, unspecified; M81.0 Age-related osteoporosis without current pathological fracture; E03.9 Hypothyroidism, unspecified; I12.9 Hypertensive chronic kidney disease with stage 1 through stage 4 chronic kidney disease, or unspecified chronic kidney disease; N18.3 Chronic kidney disease, stage 3 (moderate); R26.89 Other abnormalities of gait and mobility; E78.5 Hyperlipidemia, unspecified; E78.00 Pure hypercholesterolemia, unspecified; J44.9 Chronic obstructive pulmonary disease, unspecified; Z86.73 Personal history of transient ischemic attack (TIA), and cerebral infarction without residual deficits; I25.2 Old myocardial infarction; Z85.3 Personal history of malignant neoplasm of breast; Z87.01 Personal history of pneumonia (recurrent); Z87.891 Personal history of nicotine dependence; Z90.10 Acquired absence of unspecified breast and nipple

== ENCOUNTER 2018-07-12 13:42 | Observation (INO) | payer MEDICARE ==
[2018-07-12 13:45] VITALS: BMI 25.4
--- NOTE | 2018-07-12 15:49 | ED PDOC ---
Syncope/Near Syncope/Dizziness Time Seen by Provider: 07/12/18 14:00 Chief Complaint (Nursing): Syncope Chief Complaint (Provider): Syncope History Per: Patient, Other (home health aide) History/Exam Limitations: no limitations Onset/Duration Of Symptoms: Hrs Current Symptoms Are (Timing): Gone Now Activity At Onset Of Symptoms: Sitting Associated Symptoms Preceding Syncopal Episode: Other (hot flash) Additional Complaint(s): 82yo female, with history of hypertension, high cholesterol, CAD, COPD, CVA, brought to ER by EMS after a witnessed syncopal episode. Patient accompanied by home health aide, who states the patient was sitting and complained of feeling ho; when the aide went to open the window and turned around, she noted the patient was slumped over, not responding and drooling. Aide reports patient was unresponsive for a couple minutes and she called EMS however the patient regained consciousness prior to EMS arrival. Currently, patient denies any chest pain, shortness of breath, headache, weakness or numbness. She just reports feeling weak and tired. No additional complaints. PMD: Dr. Gomez Past Medical History Reviewed: Historical Data, Nursing Documentation, Vital Signs Vital Signs: Last Vital Signs Temp 97.5 F L 07/12/18 13:45 Pulse 80 07/12/18 13:45 Resp 20 07/12/18 13:45 BP 150/66 07/12/18 13:45 Pulse Ox 100 07/12/18 13:45 Primary Care Provider: Filiberto Gomez - Medical History PMH: Arthritis, Back Problems, Bronchitis, CAD, Cardia Arrhythmia, CHF, COPD, 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), HTN, Hypercholesterolemia, Hyperlipidemia, Hypothyroidism, Osteoporosis, Peripheral Edema, Pneumonia, Rheumatoid Arthritis, TIA Denies: Alzheimer's Disease, Anemia, Anxiety, Asthma, Atrial Fibrillation, Bipolar Disorder, Crohn's Disease, Dementia, Depression, Diabetes, Diverticulitis, Emphysema, Fractures, Gastritis, Gall Bladder Disease, Hepatitis, HIV, Kidney Stones, Migraine, Mitral Valve Prolapse, Multiple Sclerosis, Pancreatitis, Paranoia, Parkinson's Disease, Post Traumatic Stress Disorder, Pulmonary Embolism, Chronic Kidney Disease, Schizophrenia, Seizures, Sickle Cell Disease, Sexually Transmitted Disease, Sleep Apnea - Surgical History Surgical History: Appendectomy, Cholecystectomy, Coronary Stent, Pacemaker (AICD), Tonsillectomy Denies: CABG, Carotid Endarterectomy - Family History Family History: States: Unknown Family Hx - Immunization History Hx Tetanus Toxoid Vaccination: No Hx Influenza Vaccination: No Hx Pneumococcal Vaccination: No - Home Medications Home Medications: Ambulatory Orders Medication Instructions Recorded Multivit-Min/FA/Lycopen/Lutein 1 tab PO DAILY 04/29/16 [Centrum Silver Tablet] Anastrozole [Arimidex] 1 mg PO DAILY #30 tablet 12/09/16 Aspirin [Ecotrin] 81 mg PO DAILY #30 tabec 12/09/16 Losartan [Cozaar] 25 mg PO DAILY #30 tab 12/09/16 Levothyroxine [Synthroid] 25 mcg PO DAILY@0630 tab 12/19/16 Atorvastatin [Lipitor] 20 mg PO HS 04/15/17 Cholecalciferol [Vitamin D 1000 IU] 1,000 unit PO DAILY 04/15/17 Vitamin E [Vitamin E 400 Units Cap] 400 unit PO DAILY 04/15/17 Memantine [Namenda] 10 mg PO DAILY tab 05/08/17 Docusate [Colace] 200 mg PO DAILY cap 07/02/17 Lactulose [Enulose] 20 gm PO DAILY PRN udc 07/02/17 Amiodarone [Cordarone] 100 mg PO DAILY 10/02/17 Furosemide [Lasix] 20 mg PO DAILY 10/02/17 Potassium Chloride [K-Dur 20 mEq 20 meq PO DAILY 05/21/18 ER Tab] Sildenafil [Revatio] 20 mg PO TTS 05/21/18 Metoprolol Succinate XL [Toprol XL] 25 mg PO DAILY tab 05/24/18 - Allergies Allergies/Adverse Reactions: Allergies Allergy/AdvReac Type Severity Reaction Status Date / Time No Known Allergies Allergy Verified 07/12/18 13:52 Review of Systems ROS Statement: Except As Marked, All Systems Reviewed And Found Negative Constitutional: Positive for: Weakness. Negative for: Fever, Chills Respiratory: Negative for: Shortness of Breath Neurological: Positive for: Other (syncope) Physical Exam - Reviewed Nursing Documentation Reviewed: Yes Vital Signs Reviewed: Yes - Physical Exam Appears: Positive for: Non-toxic, No Acute Distress Head Exam: Positive for: ATRAUMATIC, NORMAL INSPECTION, NORMOCEPHALIC Skin: Positive for: Normal Color, Warm, DRY Eye Exam: Positive for: EOMI, Normal appearance, PERRL ENT: Positive for: Normal ENT Inspection Neck: Positive for: Supple Cardiovascular/Chest: Positive for: Regular Rate, Rhythm. Negative for: Tachycardia Respiratory: Positive for: Normal Breath Sounds. Negative for: Respiratory Distress Gastrointestinal/Abdominal: Positive for: Normal Exam, Soft. Negative for: Tenderness Back: Positive for: Normal Inspection Extremity: Positive for: Normal ROM. Negative for: Pedal Edema Neurological/Psych: Positive for: Awake, Alert, Normal Tone - ECG O2 Sat by Pulse Oximetry: 100 (RA) Pulse Ox Interpretation: Normal Medical Decision Making Medical Decision Mak[place] female with witnessed syncopal episode Labs, CT Head, CXR and EKG ordered 1630 CXR FINDINGS: LUNGS: No active pulmonary disease. PLEURA: No significant pleural effusion identified, no pneumothorax apparent. CARDIOVASCULAR: No radiographic findings to suggest acute or significant cardiovascular disease. Position/ configuration of pacemaker\AICD device: Satisfactory. Atherosclerotic calcifications identified primarily aortic arch. OSSEOUS STRUCTURES: No significant abnormalities. VISUALIZED UPPER ABDOMEN: Normal. OTHER FINDINGS: None. IMPRESSION: No active disease. No acute/significant interval changes. CT Head FINDINGS: HEMORRHAGE: No intracranial hemorrhage. BRAIN: 2 cm calcified falcine based mass unchanged Cortical and cerebellar atrophy, periventricular small vessel disease. Multiple lacunar infarcts unchanged. VENTRICLES: Unremarkable. No hydrocephalus. CALVARIUM: Unremarkable. PARANASAL SINUSES: Chronic sphenoid air cell disease. No significant inflammatory changes. MASTOID AIR CELLS: Unremarkable as visualized. No inflammatory changes. OTHER FINDINGS: None. IMPRESSION: No acute intracranial abnormalities. No significant findings to account for the clinical presentation. Additional benign and/or incidental findings described above. No significant interval change compared to the prior examination(s). [address] Ralph, who accepts patient for admission for OBS-Tele ScribeAttestation: Documented byKaren Valenzuela, acting as a scribe for Yolanda Jordan MD. Provider ScribeAttestation: All medical record entries made by the Scribe were at my direction and personally dictated by me. I have reviewed the chart and agree that the record accurately reflects my personal performance of the history, physical exam, medical decision making, and the department course for this patient. I have also personally directed, reviewed, and agree with the discharge instructions and disposition. Disposition - Disposition Forms: [facility] (Belarusian)
--- NOTE | 2018-07-12 16:15 | CT ---
Date of service: 07/12/2018 PROCEDURE: CT HEAD WITHOUT CONTRAST. HISTORY: Syncope COMPARISON: 08/11/17 TECHNIQUE: Axial computed tomography images were obtained through the head/brain without intravenous contrast. Supplemental Coronal and Sagittal projections created and reviewed. Radiation dose: Total exam DLP = 793.06 mGy-cm. This CT exam was performed using one or more of the following dose reduction techniques: Automated exposure control, adjustment of the mA and/or kV according to patient size, and/or use of iterative reconstruction technique. FINDINGS: HEMORRHAGE: No intracranial hemorrhage. BRAIN: 2 cm calcified falcine based mass unchanged Cortical and cerebellar atrophy, periventricular small vessel disease. Multiple lacunar infarcts unchanged. VENTRICLES: Unremarkable. No hydrocephalus. CALVARIUM: Unremarkable. PARANASAL SINUSES: Chronic sphenoid air cell disease. No significant inflammatory changes. MASTOID AIR CELLS: Unremarkable as visualized. No inflammatory changes. OTHER FINDINGS: None. IMPRESSION: No acute intracranial abnormalities. No significant findings to account for the clinical presentation. Additional benign and/or incidental findings described above. No significant interval change compared to the prior examination(s).
--- NOTE | 2018-07-12 16:29 | RAD ---
Date of service: 07/12/2018 HISTORY: possible admission COMPARISON: 05/17/2018 FINDINGS: LUNGS: No active pulmonary disease. PLEURA: No significant pleural effusion identified, no pneumothorax apparent. CARDIOVASCULAR: No radiographic findings to suggest acute or significant cardiovascular disease. Position/ configuration of pacemaker Atherosclerotic calcifications identified primarily aortic arch. OSSEOUS STRUCTURES: No significant abnormalities. VISUALIZED UPPER ABDOMEN: Normal. OTHER FINDINGS: None. IMPRESSION: No active disease. No acute/significant interval changes.
[2018-07-12 17:08] LABS: BASO # 0.1 K/uL (0.0-0.2); BASO % 0.5 % (0.0-2.0); EOS % 0.1 % (0.0-4.0); HEMOGLOBIN 12.7 g/dL (12.0-16.0); LYMPH # 2.1 K/uL (1.0-4.3); LYMPH % 12.7 % (20.0-40.0); MEAN CELL VOLUME 97.8 fl (81.0-99.0); MEAN CORPUSCULAR HEMOGLOBIN 31.5 pg (27.0-31.0); MEAN CORPUSCULAR HGB CONC 32.2 g/dL (33.0-37.0); MEAN PLATELET VOLUME 8.5 fl (7.2-11.7); MONO # 1.2 K/uL (0.0-0.8); MONO % 7.3 % (0.0-10.0); NEUT # 12.8 K/uL (1.8-7.0); NEUT % 79.4 % (50.0-75.0); NRBC % 0.1 % (0.0-0.0); RBC 4.05 Mil/uL (3.80-5.20); RED CELL DISTRIBUTION WIDTH 15.1 % (11.5-14.5); WHITE BLOOD COUNT 16.2 K/uL (4.8-10.8)
--- NOTE | 2018-07-12 17:20 | CP.PCM.HP ---
History of Present Illness - History of Present Illness History of Present Illness: Pt is an 82 yo F with a pmhx of AICD and pacemaker, Pulmonary HTN, COPD, HTN, HLD, Hypothyroidism, Osteoporosis, RA and CKD stage III, L sided breast cancer s/p mastectomy, urinary incontinence, presented to the ED today due to an episo de of syncope. Event was witnessed by her health aide. Pt reports that she started to feel hot and asked for the window to be open, then she passed out and was drooling, event lasted for 5 mins, pt woke up and was confused but did not recall the event. Her aid took the BP 81/61, then went up to the 150's. Denies falling or hitting her head, denies seizures or residual focal neurologic deficits. Pt reports she has had decreased water intake and recently was started on Xanax she took the first pill over night. Reports fatigue and generalized weakness. Ambulates with wheelchair only. Denies recent illness, fever, chills, CP, SOB, nausea, vomiting, or dysuria. PMD: Steven Kelleym: Dr. Gomez Cardio: Dr. Da Silva PMH: Cardiomyopathy with AICD and pacemaker, Pulmonary HTN, COPD, HTN, HLD, Hypo thyroidism, Osteoporosis, RA and CKD stage III, L sided breast cancer s/p mastectomy, urinary incontinence Allerg: NKDA Meds: Xanax, Amiodarone, Ascorbic acid, Atorvastatin, Calcium carbonate, Vit D3, Donepezil, Lasix, Metoprolol, Multivitamin, Protonix, Xarelto, Sildenafil, Spironolactone, Vit E, Synthroid, Losartan. SURG: pacemaker, mastectomy, pilodonal cyst, Tonsillectomy, appendectomy SC: Former smoker 15 yr hx 1.5 PPD, occassional etoh, Denies illicit drug use FMH: Mom-heart disease, Lymphoma-father ALLERG: NKDA ED course: Head CT, EKG, labs, CXR- no active dz Present on Admission - Present on Admission Any Indicators Present on Admission: No History of DVT/PE: No History of Uncontrolled Diabetes: No Urinary Catheter: No Decubitus Ulcer Present: No Review of Systems - Constitutional Constitutional: Fatigue, Weakness - Cardiovascular Cardiovascular: Syncope Past Patient History - Infectious Disease Hx of Infectious Diseases: None - Tetanus Immunizations Tetanus Immunization: Unknown - Past Medical History & Family History Past Medical History?: Yes - Past Social History Smoking Status: Former Smoker Alcohol: Occasional Drugs: Denies - CARDIAC Hx Atrial Fibrillation: No Hx Cardia Arrhythmia: Yes Hx Congestive Heart Failure: Yes Hx Hypercholesterolemia: Yes Hx Hypertension: Yes Hx Mitral Valve Prolapse: No Hx Pacemaker: Yes (AICD) Hx Peripheral Edema: Yes - PULMONARY Hx Asthma: No Hx Bronchitis: Yes Hx Chronic Obstructive Pulmonary Disease (COPD): Yes Hx Emphysema: No Hx Pneumonia: Yes Hx Pulmonary Embolism: No Hx Sleep Apnea: No - NEUROLOGICAL Hx Alzheimer's Disease: No Hx Dementia: No Hx Migraine: No Hx Multiple Sclerosis: No Hx Parkinson's Disease: No Hx Seizures: No Hx Transient Ischemic Attacks (TIA): Yes - HEENT Hx HEENT Problems: Yes Hx Cataracts: Yes (Sx X 2) Other/Comment: chronic mastoiditis - RENAL Hx Chronic Kidney Disease: No Hx Kidney Stones: No - ENDOCRINE/METABOLIC Hx Hypothyroidism: Yes - HEMATOLOGICAL/ONCOLOGICAL Hx Anemia: No Hx Human Immunodeficiency Virus (HIV): No Hx Sickle Cell Disease: No - INTEGUMENTARY Hx Dermatological Problems: No - MUSCULOSKELETAL/RHEUMATOLOGICAL Hx Arthritis: Yes Hx Fractures: No Hx Osteoporosis: Yes Hx Rheumatoid Arthritis: Yes - GASTROINTESTINAL Hx Crohn's Disease: No Hx Diverticulitis: No Hx Gall Bladder Disease: No Hx Gastritis: No Hx Pancreatitis: No - GENITOURINARY/GYNECOLOGICAL Hx Sexually Transmitted Disorders: No - PSYCHIATRIC Hx Anxiety: No Hx Bipolar Disorder: No Hx Depression: No Hx Paranoia: No Hx Post Traumatic Stress Disorder: No Hx Schizophrenia: No - SURGICAL HISTORY Hx Appendectomy: Yes Hx Carotid Endarterectomy: No Hx Cholecystectomy: Yes Hx Coronary Artery Bypass Graft: No Hx Coronary Stent: Yes Hx Tonsillectomy: Yes - ANESTHESIA Hx Anesthesia: Yes Hx Anesthesia Reactions: No Hx Malignant Hyperthermia: No Meds Allergies/Adverse Reactions: Allergies Allergy/AdvReac Type Severity Reaction Status Date / Time No Known Allergies Allergy Verified 07/12/18 13:52 Physical Exam - Constitutional Appears: Non-toxic, No Acute Distress - Head Exam Head Exam: ATRAUMATIC, NORMAL INSPECTION, NORMOCEPHALIC - Eye Exam Eye Exam: EOMI - ENT Exam ENT Exam: Mucous Membranes Dry Results - Vital Signs Recent Vital Signs: Last Vital Signs Temp 97.5 F L 07/12/18 13:45 Pulse 80 07/12/18 13:45 Resp 20 07/12/18 13:45 BP 150/66 07/12/18 13:45 Pulse Ox 100 07/12/18 16:37 - Labs Result Diagrams: 07/12/18 16:42 Labs: Laboratory Results - last 24 hr 07/12/18 07/12/18 14:00 16:42 WBC 16.2 H D RBC 4.05 Hgb 12.7 Hct 39.6 MCV 97.8 MCH 31.5 H MCHC 32.2 L RDW 15.1 H Plt Count 263 MPV 8.5 Neut % (Auto) 79.4 H Lymph % (Auto) 12.7 L [place] % (Auto) 7.3 Eos % (Auto) 0.1 Baso % (Auto) 0.5 Neut # (Auto) 12.8 H Lymph # (Auto) 2.1 [place] # (Auto) 1.2 H Eos # (Auto) 0.0 Baso # (Auto) 0.1 POC Glucose (mg/dL) 125 H Assessment & Plan - Assessment and Plan (Free Text) Assessment: Pt is an 82 yo F with a pmhx of AICD and pacemaker, Pulmonary HTN, COPD, HTN, HLD, Hypothyroidism, Osteoporosis, RA and CKD stage III, L sided breast cancer s/p mastectomy, urinary incontinence, admitted due to an episode of syncope. Syncope -Admit to telemetry, monitor BP -Hemodynamically stable -Head CT negative -CXR no active Dz -EKG- Atrial paced, LVH with repolarization abnormality -Ordered Carotid U/S duplex -F/U AM labs U/A urine Cx Leukocytosis -WBC 16.2, afebrile -F/u AM labs Pulmonary HTN/COPD -chronic -C/W sildenafil -Pulm: Dr. Gomez HTN -chronic -c/wMetoprolol Cardiomyopathy with AICD and pacemaker -Cardiology: Dr. Da Silva -c/w home meds: Amiodarone, ASA GINNY on CKD stage III -BUN/Cr: 32/1.1; GFR 48 -home med: lasix -continue to monitor BMP Hypothyroidism -c/w Levothyroxine Alzheimer dementia -chronic Deconditioning -PT/OT eval and treatment DVT prophylaxis -scd Diet -Heart healthy Code Status: pending confirmation with brother Earl
[2018-07-12 17:32] LABS: INR 1.1; PROTHROMBIN TIME 12.4 Seconds (9.8-13.1)
[2018-07-12 17:35] LABS: PARTIAL THROMBOPLASTIN TIME 31.2 Seconds (25.6-37.1)
[2018-07-12 17:36] LABS: CALCIUM 9.3 mg/dL (8.4-10.2)
[2018-07-12 17:46] LABS: TROPONIN I 0.025 ng/mL (0.00-0.120)
[2018-07-12] MEDS: Ofloxacin Ophth 0.3% Soln OU SCH (21:44)
[2018-07-12 23:17] LABS: SQUAMOUS EPITHIAL 1 /hpf (0-5); URINE BILIRUBIN NEGATIVE (NEGATIVE); URINE BLOOD NEGATIVE (NEGATIVE); URINE CLARITY SLIGHTY-CLOUDY (Clear); URINE COLOR YELLOW (YELLOW); URINE GLUCOSE (UA) NEG (NEGATIVE); URINE LEUKOCYTE ESTERASE NEG Leu/uL (Negative); URINE PROTEIN NEGATIVE (NEGATIVE); URINE UROBILINOGEN 0.2-1.0 mg/dL (0.2-1.0)
[2018-07-13 05:26] LABS: BASO # 0.1 K/uL (0.0-0.2); BASO % 0.7 % (0.0-2.0); EOS # 0.1 K/uL (0.0-0.7); EOS % 0.7 % (0.0-4.0); HEMOGLOBIN 11.4 g/dL (12.0-16.0); LYMPH # 2.2 K/uL (1.0-4.3); LYMPH % 18.7 % (20.0-40.0); MEAN CELL VOLUME 96.7 fl (81.0-99.0); MEAN CORPUSCULAR HEMOGLOBIN 31.9 pg (27.0-31.0); MEAN PLATELET VOLUME 8.6 fl (7.2-11.7); MONO # 1.2 K/uL (0.0-0.8); MONO % 9.9 % (0.0-10.0); NEUT # 8.4 K/uL (1.8-7.0); RBC 3.56 Mil/uL (3.80-5.20); RED CELL DISTRIBUTION WIDTH 14.9 % (11.5-14.5)
[2018-07-13 05:44] LABS: ALB/GLOB RATIO 1.3 (1.0-2.1); ALBUMIN 3.4 g/dL (3.5-5.0); CALCIUM 9.1 mg/dL (8.4-10.2)
[2018-07-13] MEDS: Levothyroxine 25 MCG TAB PO SCH (06:13)
[2018-07-13] MEDS: Multivitamin With Minerals Tab PO SCH (08:11)
[2018-07-13] MEDS: Sildenafil 20 MG TAB PO SCH ×3 (08:11→17:25)
[2018-07-13] MEDS: Pantoprazole 40 mg EC Tab PO SCH (08:12)
[2018-07-13] MEDS: Cholecalciferol 400 Intl Units Tab PO SCH (08:12)
[2018-07-13] MEDS: Ofloxacin Ophth 0.3% Soln OU SCH ×2 (08:13→17:25)
[2018-07-13] MEDS: Metoprolol Succinate 25 mg XL Tab PO SCH ×2 (08:16→17:25)
[2018-07-13] MEDS: Vitamin E 100 INTLU SGL PO SCH (08:17)
[2018-07-13] MEDS ORDERED: Pantoprazole 40 mg EC Tab PO SCH (09:00)
--- NOTE | 2018-07-13 10:44 | CP.PCM.CON ---
Past Patient History - Infectious Disease Hx of Infectious Diseases: None - Tetanus Immunizations Tetanus Immunization: Unknown - Past Medical History & Family History Past Medical History?: Yes - Past Social History Smoking Status: Never Smoked - CARDIAC Hx Cardiac Disorders: Yes (HTN, CAD, PACEMAKER) - PULMONARY Hx Asthma: No Hx Bronchitis: Yes Hx Chronic Obstructive Pulmonary Disease (COPD): Yes Hx Emphysema: No Hx Pneumonia: Yes Hx Pulmonary Embolism: No Hx Sleep Apnea: No - NEUROLOGICAL Hx Alzheimer's Disease: No Hx Dementia: No Hx Migraine: No Hx Multiple Sclerosis: No Hx Parkinson's Disease: No Hx Seizures: No Hx Transient Ischemic Attacks (TIA): Yes - HEENT Hx HEENT Problems: Yes - RENAL Hx Chronic Kidney Disease: No - ENDOCRINE/METABOLIC Hx Hypothyroidism: Yes - HEMATOLOGICAL/ONCOLOGICAL Hx Anemia: No Hx Human Immunodeficiency Virus (HIV): No Hx Sickle Cell Disease: No - INTEGUMENTARY Hx Dermatological Problems: No - MUSCULOSKELETAL/RHEUMATOLOGICAL Hx Arthritis: Yes Hx Falls: No Hx Fractures: No Hx Osteoporosis: Yes Hx Rheumatoid Arthritis: Yes - GASTROINTESTINAL Hx Crohn's Disease: No Hx Diverticulitis: No Hx Gall Bladder Disease: No Hx Gastritis: No Hx Pancreatitis: No - GENITOURINARY/GYNECOLOGICAL Hx Sexually Transmitted Disorders: No - PSYCHIATRIC Hx Anxiety: No Hx Bipolar Disorder: No Hx Depression: No Hx Paranoia: No Hx Post Traumatic Stress Disorder: No Hx Schizophrenia: No - SURGICAL HISTORY Hx Appendectomy: Yes Hx Carotid Endarterectomy: No Hx Cholecystectomy: Yes Hx Coronary Artery Bypass Graft: No Hx Coronary Stent: Yes Hx Tonsillectomy: Yes - ANESTHESIA Hx Anesthesia: Yes Hx Anesthesia Reactions: No Hx Malignant Hyperthermia: No Meds Allergies/Adverse Reactions: Allergies Allergy/AdvReac Type Severity Reaction Status Date / Time No Known Allergies Allergy Verified 07/12/18 13:52 - Medications Medications: Current Medications Acetaminophen (Tylenol 325mg Tab) 650 mg PO Q6 PRN PRN Reason: Pain, Mild (1-3) Amiodarone HCl (Cordarone) 100 mg PO DAILY [facility] Last Admin: 07/13/18 08:13 Dose: 100 mg Ascorbic Acid (Vitamin C 250 Mg Tab) 250 mg PO DAILY [facility] Last Admin: 07/13/18 08:17 Dose: 250 mg Atorvastatin Calcium (Lipitor) 20 mg PO HS [facility] Last Admin: 07/12/18 21:44 Dose: 20 mg Calcium Carbonate (Oscal) 500 mg PO DAILY [facility] Last Admin: 07/13/18 08:13 Dose: 500 mg Donepezil HCl (Aricept) 5 mg PO HS [facility] Last Admin: 07/12/18 21:43 Dose: 5 mg Furosemide (Lasix) 20 mg PO Q48H [facility] Last Admin: 07/12/18 21:53 Dose: Not Given Levothyroxine Sodium (Synthroid) 25 mcg PO DAILY@0630 [facility] Last Admin: 07/13/18 06:13 Dose: 25 mcg Losartan Potassium (Cozaar) 25 mg PO DAILY [facility] Last Admin: 07/13/18 08:12 Dose: 25 mg Metoprolol Succinate (Toprol Xl) 25 mg PO BID [facility] Last Admin: 07/13/18 08:16 Dose: Not Given Multivitamins/Minerals (Therapeutic-M Tab) 1 tab PO DAILY [facility] Last Admin: 07/13/18 08:11 Dose: 1 tab Ofloxacin (Ocuflox Ophth 0.3%) 5 drop OU BID [facility] Last Admin: 07/13/18 08:13 Dose: 5 drop Ondansetron HCl (Zofran Inj) 4 mg IVP Q6 PRN PRN Reason: Nausea/Vomiting Pantoprazole Sodium (Protonix Ec Tab) 40 mg PO DAILY [facility] Last Admin: 07/13/18 08:12 Dose: 40 mg Rivaroxaban (Xarelto) 15 mg PO DAILY [facility]; Protocol Last Admin: 07/13/18 08:17 Dose: 15 mg Sildenafil Citrate (Revatio) 20 mg PO TID [facility] Last Admin: 07/13/18 08:11 Dose: 20 mg Spironolactone (Aldactone) 12.5 mg PO Q48H [facility] Last Admin: 07/12/18 21:42 Dose: 12.5 mg Vitamin D (Vitamin D 400 Intl Units Tab) 400 intlu PO DAILY [facility] Last Admin: 07/13/18 08:12 Dose: 400 intlu Vitamin E (Vitamin E) 200 intlu PO DAILY [facility] Last Admin: 07/13/18 08:17 Dose: 200 intlu Results - Vital Signs Recent Vital Signs: Last Vital Signs Temp 97.8 F 07/13/18 08:35 Pulse 70 07/13/18 09:00 Resp 20 07/13/18 08:35 BP 144/73 07/13/18 08:35 Pulse Ox 95 07/13/18 08:35 - Labs Result Diagrams: 07/13/18 04:35 07/13/18 04:35 Labs: Laboratory Results - last 24 hr 07/12/18 07/12/18 07/12/18 14:00 16:42 16:42 WBC 16.2 H D RBC 4.05 Hgb 12.7 Hct 39.6 MCV 97.8 MCH 31.5 H MCHC 32.2 L RDW 15.1 H Plt Count 263 MPV 8.5 Neut % (Auto) 79.4 H Lymph % (Auto) 12.7 L [place] % (Auto) 7.3 Eos % (Auto) 0.1 Baso % (Auto) 0.5 Neut # (Auto) 12.8 H Lymph # (Auto) 2.1 [place] # (Auto) 1.2 H Eos # (Auto) 0.0 Baso # (Auto) 0.1 PT INR APTT Sodium 138 Potassium 4.4 Chloride 101 Carbon Dioxide 25 Anion Gap 16 BUN 32 H Creatinine 1.1 Est GFR ( Amer) 58 Est GFR (Non-Af Amer) 48 POC Glucose (mg/dL) 125 H Random Glucose 93 Calcium 9.3 Total Bilirubin AST ALT Alkaline Phosphatase Troponin I 0.0250 NT-Pro-B Natriuret Pep 2270 H Total Protein Albumin Globulin Albumin/Globulin Ratio Urine Color Urine Clarity Urine pH Ur Specific [place] Urine Protein Urine Glucose (UA) Urine Ketones Urine Blood Urine Nitrate Urine Bilirubin Urine Urobilinogen Ur Leukocyte Esterase Urine Microscopic WBC Ur Squamous Epith Cells 07/12/18 07/12/18 07/13/18 16:42 23:05 04:35 WBC 12.0 H RBC 3.56 L Hgb 11.4 L Hct 34.4 MCV 96.7 MCH 31.9 H MCHC 33.0 RDW 14.9 H Plt Count 248 MPV 8.6 Neut % (Auto) 70.0 Lymph % (Auto) 18.7 L [place] % (Auto) 9.9 Eos % (Auto) 0.7 Baso % (Auto) 0.7 Neut # (Auto) 8.4 H Lymph # (Auto) 2.2 [place] # (Auto) 1.2 H Eos # (Auto) 0.1 Baso # (Auto) 0.1 PT 12.4 INR 1.1 APTT 31.2 Sodium Potassium Chloride Carbon Dioxide Anion Gap BUN Creatinine Est GFR ( Amer) Est GFR (Non-Af Amer) POC Glucose (mg/dL) Random Glucose Calcium Total Bilirubin AST ALT Alkaline Phosphatase Troponin I NT-Pro-B Natriuret Pep Total Protein Albumin Globulin Albumin/Globulin Ratio Urine Color Yellow Urine Clarity Slighty-cloudy Urine pH 5.0 Ur Specific [place] 1.018 Urine Protein Negative Urine Glucose (UA) Neg Urine Ketones Negative Urine Blood Negative Urine Nitrate Negative Urine Bilirubin Negative Urine Urobilinogen 0.2-1.0 Ur Leukocyte Esterase Neg Urine Microscopic WBC 3 Ur Squamous Epith Cells 1 07/13/18 04:35 WBC RBC Hgb Hct MCV MCH MCHC RDW Plt Count MPV Neut % (Auto) Lymph % (Auto) [place] % (Auto) Eos % (Auto) Baso % (Auto) Neut # (Auto) Lymph # (Auto) [place] # (Auto) Eos # (Auto) Baso # (Auto) PT INR APTT Sodium 138 Potassium 4.2 Chloride 103 Carbon Dioxide 27 Anion Gap 12 BUN 29 H Creatinine 1.3 H Est GFR ( Amer) 48 Est GFR (Non-Af Amer) 39 POC Glucose (mg/dL) Random Glucose 79 Calcium 9.1 Total Bilirubin 0.6 AST 27 ALT 37 Alkaline Phosphatase 48 Troponin I NT-Pro-B Natriuret Pep Total Protein 6.1 L Albumin 3.4 L D Globulin 2.7 Albumin/Globulin Ratio 1.3 Urine Color Urine Clarity Urine pH Ur Specific [place] Urine Protein Urine Glucose (UA) Urine Ketones Urine Blood Urine Nitrate Urine Bilirubin Urine Urobilinogen Ur Leukocyte Esterase Urine Microscopic WBC Ur Squamous Epith Cells Assessment & Plan - Date & Time Date: 07/13/18 Time: 10:43
--- NOTE | 2018-07-13 10:44 | CARD ---
APPROVED REPORT Date of service: 07/12/2018 EKG Measurement Heart [id number] CO 174P [id number] <Conclusion> Atrial-paced rhythm Left ventricular hypertrophy with repolarization abnormality Abnormal ECG
--- NOTE | 2018-07-13 12:02 | CP.PCM.DIS ---
Provider - Provider Date of Admission: 07/12/18 17:01 Attending physician: Marie Ralph MD Consults: 07/12/18 18:29 Pulmonology Consult Stat Comment: Consulting Provider: Filiberto Gomez Consulting Physician: Filiberto Gomez Reason for Consult: Syncope 07/12/18 18:30 Cardiology Consult Stat Comment: Consulting Provider: Bernard Da Silva Consulting Physician: Bernard Da Silva Reason for Consult: Syncope Hospital Course - Lab Results Lab Results: Most Recent Lab Values WBC 12.0 K/uL (4.8-10.8) H 07/13/18 04:35 RBC 3.56 Mil/uL (3.80-5.20) L 07/13/18 04:35 Hgb 11.4 g/dL (12.0-16.0) L 07/13/18 04:35 Hct 34.4 % (34.0-47.0) 07/13/18 04:35 MCV 96.7 fl (81.0-99.0) 07/13/18 04:35 MCH 31.9 pg (27.0-31.0) H 07/13/18 04:35 MCHC 33.0 g/dL (33.0-37.0) 07/13/18 04:35 RDW 14.9 % (11.5-14.5) H 07/13/18 04:35 Plt Count 248 K/uL (130-400) 07/13/18 04:35 MPV 8.6 fl (7.2-11.7) 07/13/18 04:35 Neut % (Auto) 70.0 % (50.0-75.0) 07/13/18 04:35 Lymph % (Auto) 18.7 % (20.0-40.0) L 07/13/18 04:35 [place] % (Auto) 9.9 % (0.0-10.0) 07/13/18 04:35 Eos % (Auto) 0.7 % (0.0-4.0) 07/13/18 04:35 Baso % (Auto) 0.7 % (0.0-2.0) 07/13/18 04:35 Neut # (Auto) 8.4 K/uL (1.8-7.0) H 07/13/18 04:35 Lymph # (Auto) 2.2 K/uL (1.0-4.3) 07/13/18 04:35 [place] # (Auto) 1.2 K/uL (0.0-0.8) H 07/13/18 04:35 Eos # (Auto) 0.1 K/uL (0.0-0.7) 07/13/18 04:35 Baso # (Auto) 0.1 K/uL (0.0-0.2) 07/13/18 04:35 PT 12.4 Seconds (9.8-13.1) 07/12/18 16:42 INR 1.1 07/12/18 16:42 APTT 31.2 Seconds (25.6-37.1) 07/12/18 16:42 Sodium 138 mmol/l (132-148) 07/13/18 04:35 Potassium 4.2 MMOL/L (3.6-5.0) 07/13/18 04:35 Chloride 103 mmol/L (98-107) 07/13/18 04:35 Carbon Dioxide 27 mmol/L (22-30) 07/13/18 04:35 Anion Gap 12 (10-20) 07/13/18 04:35 BUN 29 mg/dl (7-17) H 07/13/18 04:35 Creatinine 1.3 mg/dl (0.7-1.2) H 07/13/18 04:35 Est GFR ( Amer) 48 07/13/18 04:35 Est GFR (Non-Af Amer) 39 07/13/18 04:35 POC Glucose (mg/dL) 125 mg/dL (65-110) H 07/12/18 14:00 Random Glucose 79 mg/dL (65-105) 07/13/18 04:35 Calcium 9.1 mg/dL (8.4-10.2) 07/13/18 04:35 Total Bilirubin 0.6 mg/dl (0.2-1.3) 07/13/18 04:35 AST 27 U/L (14-36) 07/13/18 04:35 ALT 37 U/L (9-52) 07/13/18 04:35 Alkaline Phosphatase 48 U/L (38-126) 07/13/18 04:35 Troponin I 0.0250 ng/mL (0.00-0.120) 07/12/18 16:42 NT-Pro-B Natriuret Pep 2270 pg/ml (0-900) H 07/12/18 16:42 Total Protein 6.1 G/DL (6.3-8.2) L 07/13/18 04:35 Albumin 3.4 g/dL (3.5-5.0) L D 07/13/18 04:35 Globulin 2.7 gm/dL (2.2-3.9) 07/13/18 04:35 Albumin/Globulin Ratio 1.3 (1.0-2.1) 07/13/18 04:35 Urine Color Yellow (YELLOW) 07/12/18 23:05 Urine Clarity Slighty-cloudy (Clear) 07/12/18 23:05 Urine pH 5.0 (5.0-8.0) 07/12/18 23:05 Ur Specific [place] 1.018 (1.003-1.030) 07/12/18 23:05 Urine Protein Negative mg/dL (NEGATIVE) 07/12/18 23:05 Urine Glucose (UA) Neg mg/dL (NEGATIVE) 07/12/18 23:05 Urine Ketones Negative mg/dL (NEGATIVE) 07/12/18 23:05 Urine Blood Negative (NEGATIVE) 07/12/18 23:05 Urine Nitrate Negative (NEGATIVE) 07/12/18 23:05 Urine Bilirubin Negative (NEGATIVE) 07/12/18 23:05 Urine Urobilinogen 0.2-1.0 mg/dL (0.2-1.0) 07/12/18 23:05 Ur Leukocyte Esterase Neg Kj/uL (Negative) 07/12/18 23:05 Urine Microscopic WBC 3 /hpf (0-5) 07/12/18 23:05 Ur Squamous Epith Cells 1 /hpf (0-5) 07/12/18 23:05 Discharge Exam - Head Exam Head Exam: ATRAUMATIC, NORMAL INSPECTION, NORMOCEPHALIC Discharge Plan - Follow Up Plan Condition: GOOD Disposition: HOME/ ROUTINE
--- NOTE | 2018-07-13 13:40 | US ---
Date of service: 07/13/2018 PROCEDURE: Duplex ultrasound of the carotid and vertebral arteries. HISTORY: Syncope COMPARISON: None available. TECHNIQUE: Grayscale and duplex Doppler evaluation of the cervical carotid and vertebral arteries were performed. The common carotid, carotid bifurcations and cervical ICA and proximal ECA were evaluated. The vertebral arteries were evaluated for gross patency and direction. FINDINGS: There is diffuse intimal thickening and calcified plaques in the carotid bulbs, proximal internal carotid arteries, right mid common carotid artery and left proximal common carotid artery. RIGHT CAROTID ARTERIES: Common Carotid Artery: Normal. Maximal flow velocity of 78.8 cm/s. Carotid Bifurcation: Normal. Internal Carotid Artery:Normal. Maximal flow velocity of 82.9 cm/s. External Carotid Artery (proximal branches): Normal. Maximal flow velocity of 76.5 cm/s. ICA/CCA Ratio: 0.8 LEFT CAROTID ARTERIES: Common Carotid Artery: Normal. Maximal flow velocity of 111.3 cm/s. Carotid Bifurcation: Normal. Internal Carotid Artery:Normal. Maximal flow velocity of 96.7 cm/s. External Carotid Artery (proximal branches): Normal. Maximal flow velocity of 75.0 cm/s. ICA/CCA Ratio: 0.9 VERTEBRAL ARTERIES: Right Vertebral Artery: Patent. Antegrade flow. Left Vertebral Artery: Patent. Antegrade flow. OTHER FINDINGS: There are atherosclerotic calcifications presen.t IMPRESSION: No evidence of hemodynamically significant stenosis in the internal carotid arteries by peak systolic velocity criteria. Patent bilateral vertebral arteries with antegrade flow.
--- NOTE | 2018-07-13 14:16 | CP.PCM.PN ---
Subjective - Date & Time of Evaluation Date of Evaluation: 07/13/18 Time of Evaluation: 10:00 - Subjective Subjective: Patient seen and examined this AM, NAD. Patient denies FIELD, CP,SOB, dizziness, VS wnl, afebrile. Objective - Vital Signs/Intake and Output Vital Signs (last 24 hours): Temp Pulse Resp BP Pulse Ox 98.4 F 60 20 117/69 96 07/13/18 12:18 07/13/18 12:18 07/13/18 12:18 07/13/18 12:18 07/13/18 12:18 - Medications Medications: Current Medications Acetaminophen (Tylenol 325mg Tab) 650 mg PO Q6 PRN PRN Reason: Pain, Mild (1-3) Amiodarone HCl (Cordarone) 100 mg PO DAILY [facility] Last Admin: 07/13/18 08:13 Dose: 100 mg Ascorbic Acid (Vitamin C 250 Mg Tab) 250 mg PO DAILY [facility] Last Admin: 07/13/18 08:17 Dose: 250 mg Atorvastatin Calcium (Lipitor) 20 mg PO HS [facility] Last Admin: 07/12/18 21:44 Dose: 20 mg Calcium Carbonate (Oscal) 500 mg PO DAILY [facility] Last Admin: 07/13/18 08:13 Dose: 500 mg Donepezil HCl (Aricept) 5 mg PO HS [facility] Last Admin: 07/12/18 21:43 Dose: 5 mg Furosemide (Lasix) 20 mg PO Q48H [facility] Last Admin: 07/12/18 21:53 Dose: Not Given Levothyroxine Sodium (Synthroid) 25 mcg PO DAILY@0630 [facility] Last Admin: 07/13/18 06:13 Dose: 25 mcg Losartan Potassium (Cozaar) 25 mg PO DAILY [facility] Last Admin: 07/13/18 08:12 Dose: 25 mg Metoprolol Succinate (Toprol Xl) 25 mg PO BID [facility] Last Admin: 07/13/18 08:16 Dose: Not Given Multivitamins/Minerals (Therapeutic-M Tab) 1 tab PO DAILY [facility] Last Admin: 07/13/18 08:11 Dose: 1 tab Ofloxacin (Ocuflox Ophth 0.3%) 5 drop OU BID [facility] Last Admin: 07/13/18 08:13 Dose: 5 drop Ondansetron HCl (Zofran Inj) 4 mg IVP Q6 PRN PRN Reason: Nausea/Vomiting Pantoprazole Sodium (Protonix Ec Tab) 40 mg PO DAILY [facility] Last Admin: 07/13/18 08:12 Dose: 40 mg Rivaroxaban (Xarelto) 15 mg PO DAILY [facility]; Protocol Last Admin: 07/13/18 08:17 Dose: 15 mg Sildenafil Citrate (Revatio) 20 mg PO TID [facility] Last Admin: 07/13/18 13:55 Dose: Not Given Spironolactone (Aldactone) 12.5 mg PO Q48H [facility] Last Admin: 07/12/18 21:42 Dose: 12.5 mg Vitamin D (Vitamin D 400 Intl Units Tab) 400 intlu PO DAILY [facility] Last Admin: 07/13/18 08:12 Dose: 400 intlu Vitamin E (Vitamin E) 200 intlu PO DAILY [facility] Last Admin: 07/13/18 08:17 Dose: 200 intlu - Labs Labs: 07/13/18 04:35 07/13/18 04:35 PT 12.4 Seconds (9.8-13.1) 07/12/18 16:42 INR 1.1 07/12/18 16:42 APTT 31.2 Seconds (25.6-37.1) 07/12/18 16:42 - Constitutional Appears: No Acute Distress - Head Exam Head Exam: ATRAUMATIC, NORMOCEPHALIC - Eye Exam Eye Exam: EOMI - ENT Exam ENT Exam: Mucous Membranes Moist - Respiratory Exam Respiratory Exam: Clear to Ausculation Bilateral. absent: Wheezes - Cardiovascular Exam Cardiovascular Exam: REGULAR RHYTHM, +S1, +S2 - GI/Abdominal Exam GI & Abdominal Exam: Soft, Normal Bowel Sounds. absent: Tenderness - Extremities Exam Extremities Exam: absent: Pedal Edema - Neurological Exam Neurological Exam: Alert, Awake, Oriented x3 Additional comments: Patient is bed bound Assessment and Plan - Assessment and Plan (Free Text) Assessment: Pt is an 82 yo F with a pmhx of AICD and pacemaker, Pulmonary HTN, COPD, HTN, HLD, Hypothyroidism, Osteoporosis, RA and CKD stage III, L sided breast cancer s/p mastectomy, urinary incontinence, admitted due to an episode of syncope. Patient is back to her normal baseline today, clinically stable. Syncope -Admit to telemetry, monitor BP -Hemodynamically stable -Head CT negative -CXR no active Dz -EKG- Atrial paced, LVH with repolarization abnormality -Carotid U/S duplex: No acute abnormalities - U/A clear -Anticipating Plan for D/C today or tomorrow, depending on patient house arrangements for care Leukocytosis -Improved, likely 2/2 syncopal stress -WBC 12.0 afebrile Pulmonary HTN/COPD -chronic -C/W sildenafil -Pulm: Dr. Gomez HTN -chronic -c/wMetoprolol Cardiomyopathy with AICD and pacemaker -Cardiology: Dr. Da Silva -c/w home meds: Amiodarone, ASA GINNY on CKD stage III -BUN/Cr: 29/.3 GFR 48 -home med: lasix -continue to monitor BMP Hypothyroidism -c/w Levothyroxine Alzheimer dementia -chronic Deconditioning -PT/OT eval and treatment DVT prophylaxis -scd Diet -Heart healthy Code Status: pending confirmation with brother Earl
--- NOTE | 2018-07-13 14:35 | CP.PCM.CON ---
History of Present Illness - History of Present Illness History of Present Illness: Consultation for evaluation of syncope HPI: Review of Systems - Review of Systems Systems not reviewed;Unavailable: Acuity of Condition - Constitutional Constitutional: As Per HPI - EENT Eyes: As Per HPI Ears: As Per HPI Nose/Mouth/Throat: As Per HPI - Breasts Breasts: As Per HPI - Cardiovascular Cardiovascular: As Per HPI - Respiratory Respiratory: As Per HPI - Gastrointestinal Gastrointestinal: As Per HPI - Genitourinary Genitourinary: As Per HPI - Reproductive: Female Reproductive:Female: As Per HPI - Menstruation Menstruation: As Per HPI - Musculoskeletal Musculoskeletal: As Per HPI - Integumentary Integumentary: As Per HPI - Neurological Neurological: As Per HPI - Psychiatric Psychiatric: As Per HPI - Endocrine Endocrine: As Per HPI - Hematologic/Lymphatic Hematologic: As Per HPI Past Patient History - Infectious Disease Hx of Infectious Diseases: None - Tetanus Immunizations Tetanus Immunization: Unknown - Past Medical History & Family History Past Medical History?: Yes - Past Social History Smoking Status: Never Smoked - CARDIAC Hx Cardiac Disorders: Yes (HTN, CAD, PACEMAKER) - PULMONARY Hx Asthma: No Hx Bronchitis: Yes Hx Chronic Obstructive Pulmonary Disease (COPD): Yes Hx Emphysema: No Hx Pneumonia: Yes Hx Pulmonary Embolism: No Hx Sleep Apnea: No - NEUROLOGICAL Hx Alzheimer's Disease: No Hx Dementia: No Hx Migraine: No Hx Multiple Sclerosis: No Hx Parkinson's Disease: No Hx Seizures: No Hx Transient Ischemic Attacks (TIA): Yes - HEENT Hx HEENT Problems: Yes - RENAL Hx Chronic Kidney Disease: No - ENDOCRINE/METABOLIC Hx Hypothyroidism: Yes - HEMATOLOGICAL/ONCOLOGICAL Hx Anemia: No Hx Human Immunodeficiency Virus (HIV): No Hx Sickle Cell Disease: No - INTEGUMENTARY Hx Dermatological Problems: No - MUSCULOSKELETAL/RHEUMATOLOGICAL Hx Arthritis: Yes Hx Falls: No Hx Fractures: No Hx Osteoporosis: Yes Hx Rheumatoid Arthritis: Yes - GASTROINTESTINAL Hx Crohn's Disease: No Hx Diverticulitis: No Hx Gall Bladder Disease: No Hx Gastritis: No Hx Pancreatitis: No - GENITOURINARY/GYNECOLOGICAL Hx Sexually Transmitted Disorders: No - PSYCHIATRIC Hx Anxiety: No Hx Bipolar Disorder: No Hx Depression: No Hx Paranoia: No Hx Post Traumatic Stress Disorder: No Hx Schizophrenia: No - SURGICAL HISTORY Hx Appendectomy: Yes Hx Carotid Endarterectomy: No Hx Cholecystectomy: Yes Hx Coronary Artery Bypass Graft: No Hx Coronary Stent: Yes Hx Tonsillectomy: Yes - ANESTHESIA Hx Anesthesia: Yes Hx Anesthesia Reactions: No Hx Malignant Hyperthermia: No Meds Home Medications: Home Medication List Medication Instructions Recorded Confirmed Type Losartan [Cozaar] 25 mg PO DAILY #30 tab 07/13/18 07/12/18 Rx Allergies/Adverse Reactions: Allergies Allergy/AdvReac Type Severity Reaction Status Date / Time No Known Allergies Allergy Verified 07/12/18 13:52 - Medications Medications: Current Medications Acetaminophen (Tylenol 325mg Tab) 650 mg PO Q6 PRN PRN Reason: Pain, Mild (1-3) Amiodarone HCl (Cordarone) 100 mg PO DAILY [facility] Last Admin: 07/13/18 08:13 Dose: 100 mg Ascorbic Acid (Vitamin C 250 Mg Tab) 250 mg PO DAILY [facility] Last Admin: 07/13/18 08:17 Dose: 250 mg Atorvastatin Calcium (Lipitor) 20 mg PO HS [facility] Last Admin: 07/12/18 21:44 Dose: 20 mg Calcium Carbonate (Oscal) 500 mg PO DAILY [facility] Last Admin: 07/13/18 08:13 Dose: 500 mg Donepezil HCl (Aricept) 5 mg PO HS [facility] Last Admin: 07/12/18 21:43 Dose: 5 mg Furosemide (Lasix) 20 mg PO Q48H [facility] Last Admin: 07/12/18 21:53 Dose: Not Given Levothyroxine Sodium (Synthroid) 25 mcg PO DAILY@0630 [facility] Last Admin: 07/13/18 06:13 Dose: 25 mcg Losartan Potassium (Cozaar) 25 mg PO DAILY [facility] Last Admin: 07/13/18 08:12 Dose: 25 mg Metoprolol Succinate (Toprol Xl) 25 mg PO BID [facility] Last Admin: 07/13/18 08:16 Dose: Not Given Multivitamins/Minerals (Therapeutic-M Tab) 1 tab PO DAILY [facility] Last Admin: 07/13/18 08:11 Dose: 1 tab Ofloxacin (Ocuflox Ophth 0.3%) 5 drop OU BID [facility] Last Admin: 07/13/18 08:13 Dose: 5 drop Ondansetron HCl (Zofran Inj) 4 mg IVP Q6 PRN PRN Reason: Nausea/Vomiting Pantoprazole Sodium (Protonix Ec Tab) 40 mg PO DAILY [facility] Last Admin: 07/13/18 08:12 Dose: 40 mg Rivaroxaban (Xarelto) 15 mg PO DAILY [facility]; Protocol Last Admin: 07/13/18 08:17 Dose: 15 mg Sildenafil Citrate (Revatio) 20 mg PO TID [facility] Last Admin: 07/13/18 13:55 Dose: Not Given Spironolactone (Aldactone) 12.5 mg PO Q48H [facility] Last Admin: 07/12/18 21:42 Dose: 12.5 mg Vitamin D (Vitamin D 400 Intl Units Tab) 400 intlu PO DAILY [facility] Last Admin: 07/13/18 08:12 Dose: 400 intlu Vitamin E (Vitamin E) 200 intlu PO DAILY [facility] Last Admin: 07/13/18 08:17 Dose: 200 intlu Physical Exam - Constitutional Appears: Well - Head Exam Head Exam: ATRAUMATIC, NORMAL INSPECTION, NORMOCEPHALIC - Eye Exam Eye Exam: EOMI, Normal appearance, PERRL Pupil Exam: NORMAL ACCOMODATION, PERRL - ENT Exam ENT Exam: Mucous Membranes Moist, Normal Exam - Neck Exam Neck exam: Positive for: Normal Inspection - Respiratory Exam Respiratory Exam: Clear to Auscultation Bilateral, NORMAL BREATHING PATTERN - Cardiovascular Exam Cardiovascular Exam: REGULAR RHYTHM, RRR, +S1, +S2, Systolic Murmur - GI/Abdominal Exam GI & Abdominal Exam: Normal Bowel Sounds, Soft. absent: Tenderness - Extremities Exam Extremities exam: Positive for: normal inspection - Back Exam Back exam: NORMAL INSPECTION - Neurological Exam Neurological exam: Alert, CN II-XII Intact, Normal Gait, Oriented x3, Reflexes Normal - Psychiatric Exam Psychiatric exam: Normal Affect, Normal Mood - Skin Skin Exam: Dry, Intact, Normal Color, Warm Results - Vital Signs Recent Vital Signs: Last Vital Signs Temp 98.4 F 07/13/18 12:18 Pulse 60 07/13/18 12:18 Resp 20 07/13/18 12:18 BP 117/69 07/13/18 12:18 Pulse Ox 96 07/13/18 12:18 - Labs Result Diagrams: 07/13/18 04:35 07/13/18 04:35 Labs: Laboratory Results - last 24 hr 07/12/18 07/12/18 07/12/18 16:42 16:42 16:42 WBC 16.2 H D RBC 4.05 Hgb 12.7 Hct 39.6 MCV 97.8 MCH 31.5 H MCHC 32.2 L RDW 15.1 H Plt Count 263 MPV 8.5 Neut % (Auto) 79.4 H Lymph % (Auto) 12.7 L [place] % (Auto) 7.3 Eos % (Auto) 0.1 Baso % (Auto) 0.5 Neut # (Auto) 12.8 H Lymph # (Auto) 2.1 [place] # (Auto) 1.2 H Eos # (Auto) 0.0 Baso # (Auto) 0.1 PT 12.4 INR 1.1 APTT 31.2 Sodium 138 Potassium 4.4 Chloride 101 Carbon Dioxide 25 Anion Gap 16 BUN 32 H Creatinine 1.1 Est GFR ( Amer) 58 Est GFR (Non-Af Amer) 48 Random Glucose 93 Calcium 9.3 Total Bilirubin AST ALT Alkaline Phosphatase Troponin I 0.0250 NT-Pro-B Natriuret Pep 2270 H Total Protein Albumin Globulin Albumin/Globulin Ratio Urine Color Urine Clarity Urine pH Ur Specific [place] Urine Protein Urine Glucose (UA) Urine Ketones Urine Blood Urine Nitrate Urine Bilirubin Urine Urobilinogen Ur Leukocyte Esterase Urine Microscopic WBC Ur Squamous Epith Cells 07/12/18 07/13/18 07/13/18 23:05 04:35 04:35 WBC 12.0 H RBC 3.56 L Hgb 11.4 L Hct 34.4 MCV 96.7 MCH 31.9 H MCHC 33.0 RDW 14.9 H Plt Count 248 MPV 8.6 Neut % (Auto) 70.0 Lymph % (Auto) 18.7 L [place] % (Auto) 9.9 Eos % (Auto) 0.7 Baso % (Auto) 0.7 Neut # (Auto) 8.4 H Lymph # (Auto) 2.2 [place] # (Auto) 1.2 H Eos # (Auto) 0.1 Baso # (Auto) 0.1 PT INR APTT Sodium 138 Potassium 4.2 Chloride 103 Carbon Dioxide 27 Anion Gap 12 BUN 29 H Creatinine 1.3 H Est GFR ( Amer) 48 Est GFR (Non-Af Amer) 39 Random Glucose 79 Calcium 9.1 Total Bilirubin 0.6 AST 27 ALT 37 Alkaline Phosphatase 48 Troponin I NT-Pro-B Natriuret Pep Total Protein 6.1 L Albumin 3.4 L D Globulin 2.7 Albumin/Globulin Ratio 1.3 Urine Color Yellow Urine Clarity Slighty-cloudy Urine pH 5.0 Ur Specific [place] 1.018 Urine Protein Negative Urine Glucose (UA) Neg Urine Ketones Negative Urine Blood Negative Urine Nitrate Negative Urine Bilirubin Negative Urine Urobilinogen 0.2-1.0 Ur Leukocyte Esterase Neg Urine Microscopic WBC 3 Ur Squamous Epith Cells 1 Assessment & Plan (1) Syncope Status: Acute Priority: High (2) V-tach Status: Acute (3) CAD (coronary artery disease) Status: Chronic Priority: High (4) CHF (congestive heart failure) Status: Chronic Priority: High (5) CKD (chronic kidney disease) stage 3, GFR 30-59 ml/min Status: Chronic (6) Cardiomyopathy Status: Chronic Priority: High (7) Chronic congestive heart failure Status: Inactive Priority: High
[2018-07-14 00:31] VITALS: O2SAT 96
[2018-07-14] MEDS: Levothyroxine 25 MCG TAB PO SCH (05:53)
[2018-07-14 06:05] LABS: HEMOGLOBIN 12.1 g/dL (12.0-16.0); MEAN CELL VOLUME 96.6 fl (81.0-99.0); MEAN CORPUSCULAR HEMOGLOBIN 31.8 pg (27.0-31.0); MEAN CORPUSCULAR HGB CONC 32.9 g/dL (33.0-37.0); RBC 3.81 Mil/uL (3.80-5.20); RED CELL DISTRIBUTION WIDTH 15.1 % (11.5-14.5); WHITE BLOOD COUNT 12.6 K/uL (4.8-10.8)
[2018-07-14 06:08] LABS: CALCIUM 8.6 mg/dL (8.4-10.2)
[2018-07-14] MEDS: Ofloxacin Ophth 0.3% Soln OU SCH (09:06)
[2018-07-14] MEDS: Pantoprazole 40 mg EC Tab PO SCH (09:07)
[2018-07-14] MEDS: Sildenafil 20 MG TAB PO SCH (09:07)
[2018-07-14] MEDS: Multivitamin With Minerals Tab PO SCH (09:08)
[2018-07-14] MEDS: Metoprolol Succinate 25 mg XL Tab PO SCH (09:08)
[2018-07-14] MEDS: Vitamin E 100 INTLU SGL PO SCH (09:09)
[2018-07-14] MEDS: Cholecalciferol 400 Intl Units Tab PO SCH (09:09)
--- NOTE | 2018-07-14 10:26 | CP.PCM.DIS ---
Provider - Provider Date of Admission: 07/12/18 17:01 Attending physician: Marie Ralph MD Consults: 07/12/18 18:29 Pulmonology Consult Stat Comment: Consulting Provider: Filiberto Gomez Consulting Physician: Filiberto Gomez Reason for Consult: Syncope 07/12/18 18:30 Cardiology Consult Stat Comment: Consulting Provider: Bernard Da Silva Consulting Physician: Bernard Da Silva Reason for Consult: Syncope Time Spent in preparation of Discharge (in minutes): 33 Diagnosis - Discharge Diagnosis (1) Syncope Status: Acute Hospital Course - Lab Results Lab Results: Most Recent Lab Values WBC 12.6 K/uL (4.8-10.8) H 07/14/18 04:50 RBC 3.81 Mil/uL (3.80-5.20) 07/14/18 04:50 Hgb 12.1 g/dL (12.0-16.0) 07/14/18 04:50 Hct 36.8 % (34.0-47.0) 07/14/18 04:50 MCV 96.6 fl (81.0-99.0) 07/14/18 04:50 MCH 31.8 pg (27.0-31.0) H 07/14/18 04:50 MCHC 32.9 g/dL (33.0-37.0) L 07/14/18 04:50 RDW 15.1 % (11.5-14.5) H 07/14/18 04:50 Plt Count 249 K/uL (130-400) 07/14/18 04:50 MPV 8.6 fl (7.2-11.7) 07/13/18 04:35 Neut % (Auto) 70.0 % (50.0-75.0) 07/13/18 04:35 Lymph % (Auto) 18.7 % (20.0-40.0) L 07/13/18 04:35 [place] % (Auto) 9.9 % (0.0-10.0) 07/13/18 04:35 Eos % (Auto) 0.7 % (0.0-4.0) 07/13/18 04:35 Baso % (Auto) 0.7 % (0.0-2.0) 07/13/18 04:35 Neut # (Auto) 8.4 K/uL (1.8-7.0) H 07/13/18 04:35 Lymph # (Auto) 2.2 K/uL (1.0-4.3) 07/13/18 04:35 [place] # (Auto) 1.2 K/uL (0.0-0.8) H 07/13/18 04:35 Eos # (Auto) 0.1 K/uL (0.0-0.7) 07/13/18 04:35 Baso # (Auto) 0.1 K/uL (0.0-0.2) 07/13/18 04:35 PT 12.4 Seconds (9.8-13.1) 07/12/18 16:42 INR 1.1 07/12/18 16:42 APTT 31.2 Seconds (25.6-37.1) 07/12/18 16:42 Sodium 136 mmol/l (132-148) 07/14/18 04:50 Potassium 4.2 MMOL/L (3.6-5.0) 07/14/18 04:50 Chloride 102 mmol/L (98-107) 07/14/18 04:50 Carbon Dioxide 26 mmol/L (22-30) 07/14/18 04:50 Anion Gap 12 (10-20) 07/14/18 04:50 BUN 26 mg/dl (7-17) H 07/14/18 04:50 Creatinine 1.2 mg/dl (0.7-1.2) 07/14/18 04:50 Est GFR ( Amer) 52 07/14/18 04:50 Est GFR (Non-Af Amer) 43 07/14/18 04:50 POC Glucose (mg/dL) 125 mg/dL (65-110) H 07/12/18 14:00 Random Glucose 76 mg/dL (65-105) 07/14/18 04:50 Calcium 8.6 mg/dL (8.4-10.2) 07/14/18 04:50 Total Bilirubin 0.6 mg/dl (0.2-1.3) 07/13/18 04:35 AST 27 U/L (14-36) 07/13/18 04:35 ALT 37 U/L (9-52) 07/13/18 04:35 Alkaline Phosphatase 48 U/L (38-126) 07/13/18 04:35 Troponin I 0.0250 ng/mL (0.00-0.120) 07/12/18 16:42 NT-Pro-B Natriuret Pep 2270 pg/ml (0-900) H 07/12/18 16:42 Total Protein 6.1 G/DL (6.3-8.2) L 07/13/18 04:35 Albumin 3.4 g/dL (3.5-5.0) L D 07/13/18 04:35 Globulin 2.7 gm/dL (2.2-3.9) 07/13/18 04:35 Albumin/Globulin Ratio 1.3 (1.0-2.1) 07/13/18 04:35 Urine Color Yellow (YELLOW) 07/12/18 23:05 Urine Clarity Slighty-cloudy (Clear) 07/12/18 23:05 Urine pH 5.0 (5.0-8.0) 07/12/18 23:05 Ur Specific [place] 1.018 (1.003-1.030) 07/12/18 23:05 Urine Protein Negative mg/dL (NEGATIVE) 07/12/18 23:05 Urine Glucose (UA) Neg mg/dL (NEGATIVE) 07/12/18 23:05 Urine Ketones Negative mg/dL (NEGATIVE) 07/12/18 23:05 Urine Blood Negative (NEGATIVE) 07/12/18 23:05 Urine Nitrate Negative (NEGATIVE) 07/12/18 23:05 Urine Bilirubin Negative (NEGATIVE) 07/12/18 23:05 Urine Urobilinogen 0.2-1.0 mg/dL (0.2-1.0) 07/12/18 23:05 Ur Leukocyte Esterase Neg Kj/uL (Negative) 07/12/18 23:05 Urine Microscopic WBC 3 /hpf (0-5) 07/12/18 23:05 Ur Squamous Epith Cells 1 /hpf (0-5) 07/12/18 23:05 - Hospital Course Hospital Course: Pt is an 82 yo F with a pmhx of AICD and pacemaker, Pulmonary HTN, COPD, HTN, HLD, Hypothyroidism, Osteoporosis, RA and CKD stage III, L sided breast cancer s/p mastectomy, urinary incontinence, admitted due to an episode of syncope wirnessed by her aid at home, BP right after the event was noted to be 81/60. Of note patient is on multiple BP meds which she takes in the AM, and the she had started on xanax prior to the event, event noted described as a brief period of unresponsiveness. Syncope work up done while in tele unit showed Troponnin I x1 negative, EKG was unremarkble for acute abdnmormalities. Head CT and carotid artery US done did not show significant stenosis or acute abdnomalities. Patient had a significant improvement upon admission, back to her normal baseline today, clinically stable with no FIELD, dizziness or any acute medical complaint. Patient also was evaluated by her park interpretive specialist during hospital course and clear for discharge home.All chart, VS, labs and clinical data is reviewed and patient satble to be dc home with outpatient f/u with her PMD. Plan: -D/C Xanax, space out BP meds losartan change from QAM to QHS, c/w MEtoprolol Succ in AM. Discharge Exam - Head Exam Head Exam: ATRAUMATIC, NORMAL INSPECTION, NORMOCEPHALIC - Eye Exam Eye Exam: EOMI - ENT Exam ENT Exam: Mucous Membranes Moist - Respiratory Exam Respiratory Exam: Clear to PA & Lateral, NORMAL BREATHING PATTERN - Cardiovascular Exam Cardiovascular Exam: REGULAR RHYTHM, +S1, +S2 - GI/Abdominal Exam GI & Abdominal Exam: Normal Bowel Sounds, Soft - Neurological Exam Neurological exam: Alert, Oriented x3 Additional comments: bed bound, left sided hemiparesis - Skin Skin Exam: Normal Color, Warm Discharge Plan - Follow Up Plan Condition: GOOD Disposition: HOME/ ROUTINE Instructions: Syncope (Fainting) (DC) Additional Instructions: Follow up with you PMD in 2 to 3 days. [facility] with you medication [facility] [phone] ED Precautions: Go to the ED or call 911 if you have chest pain, shortness of breath, dizziness, headache that does not get relief with you medications, fever, chills, or other new symptom or concern presents. Referrals: Bernard Da Silva MD [Staff Provider] - Filiberto Gomez MD [Staff Provider] - Steven Carr MD [Medical Doctor] -
--- NOTE | 2018-07-14 11:11 | CP.PCM.PN ---
Subjective - Date & Time of Evaluation Date of Evaluation: 07/14/18 Time of Evaluation: 11:08 - Subjective Subjective: Patient seen in telemetry. Interim events and EMR entries reviewed. Sitting up in the bed, awake and alert, memory intact. Consensus of opinion is her syncope was related to medication intake. Cumulative effects and timing were responsible for her brief period on unresponsiveness. Medication timing will be re-arranged to avoid this going forward. Alprazolam will be removed from her list of medications as well. For discharge to home today. Objective - Vital Signs/Intake and Output Vital Signs (last 24 hours): Temp Pulse Resp BP Pulse Ox 97.6 F 60 20 150/75 96 07/14/18 08:28 07/14/18 10:27 07/14/18 08:28 07/14/18 10:27 07/14/18 08:28 - Medications Medications: Current Medications Acetaminophen (Tylenol 325mg Tab) 650 mg PO Q6 PRN PRN Reason: Pain, Mild (1-3) Last Admin: 07/14/18 02:08 Dose: 650 mg Amiodarone HCl (Cordarone) 100 mg PO DAILY [facility] Last Admin: 07/14/18 10:27 Dose: 100 mg Ascorbic Acid (Vitamin C 250 Mg Tab) 250 mg PO DAILY [facility] Last Admin: 07/14/18 09:09 Dose: 250 mg Atorvastatin Calcium (Lipitor) 20 mg PO HS [facility] Last Admin: 07/13/18 21:40 Dose: 20 mg Calcium Carbonate (Oscal) 500 mg PO DAILY [facility] Last Admin: 07/14/18 09:07 Dose: 500 mg Donepezil HCl (Aricept) 5 mg PO HS [facility] Last Admin: 07/13/18 21:44 Dose: 5 mg Furosemide (Lasix) 20 mg PO Q48H [facility] Last Admin: 07/12/18 21:53 Dose: Not Given Ibuprofen (Motrin Tab) 600 mg PO Q6 PRN PRN Reason: Pain, moderate (4-7) Levothyroxine Sodium (Synthroid) 25 mcg PO DAILY@0630 [facility] Last Admin: 07/14/18 05:53 Dose: 25 mcg Losartan Potassium (Cozaar) 25 mg PO DAILY [facility] Last Admin: 07/14/18 09:06 Dose: 25 mg Metoprolol Succinate (Toprol Xl) 25 mg PO BID [facility] Last Admin: 07/14/18 09:08 Dose: 25 mg Multivitamins/Minerals (Therapeutic-M Tab) 1 tab PO DAILY [facility] Last Admin: 07/14/18 09:08 Dose: 1 tab Ofloxacin (Ocuflox Ophth 0.3%) 5 drop OU BID [facility] Last Admin: 07/14/18 09:06 Dose: 5 drop Ondansetron HCl (Zofran Inj) 4 mg IVP Q6 PRN PRN Reason: Nausea/Vomiting Pantoprazole Sodium (Protonix Ec Tab) 40 mg PO DAILY [facility] Last Admin: 07/14/18 09:07 Dose: 40 mg Rivaroxaban (Xarelto) 15 mg PO DAILY [facility]; Protocol Last Admin: 07/14/18 09:10 Dose: 15 mg Sildenafil Citrate (Revatio) 20 mg PO TID [facility] Last Admin: 07/14/18 09:07 Dose: 20 mg Spironolactone (Aldactone) 12.5 mg PO Q48H [facility] Last Admin: 07/12/18 21:42 Dose: 12.5 mg Vitamin D (Vitamin D 400 Intl Units Tab) 400 intlu PO DAILY [facility] Last Admin: 07/14/18 09:09 Dose: 400 intlu Vitamin E (Vitamin E) 200 intlu PO DAILY [facility] Last Admin: 07/14/18 09:09 Dose: 200 intlu - Labs Labs: 07/14/18 04:50 07/14/18 04:50 PT 12.4 Seconds (9.8-13.1) 07/12/18 16:42 INR 1.1 07/12/18 16:42 APTT 31.2 Seconds (25.6-37.1) 07/12/18 16:42
[2018-07-14 11:37] VITALS: PULSE 62; RESP 18; TEMP 97.8
[2018-07-14 15:44] VITALS: BP 130/68
== END 2018-07-14 16:00 | disposition home health service (06) ==
LOC: H.ER 13:42 → H.ERHOLD 17:01 → H.TEL 18:58
PROVIDERS: ADMIT Hospitalist; ATTEND Hospitalist
DX: R55 Syncope and collapse (principal); F02.80 Dementia in other diseases classified elsewhere, unspecified severity, without behavioral disturbance, psychotic disturbance, mood disturbance, and anxiety; G30.9 Alzheimer's disease, unspecified; I13.0 Hypertensive heart and chronic kidney disease with heart failure and stage 1 through stage 4 chronic kidney disease, or unspecified chronic kidney disease; I50.22 Chronic systolic (congestive) heart failure; N18.3 Chronic kidney disease, stage 3 (moderate); N17.9 Acute kidney failure, unspecified; I42.9 Cardiomyopathy, unspecified; I27.20 Pulmonary hypertension, unspecified; J44.9 Chronic obstructive pulmonary disease, unspecified; I69.354 Hemiplegia and hemiparesis following cerebral infarction affecting left non-dominant side; I25.10 Atherosclerotic heart disease of native coronary artery without angina pectoris; E03.9 Hypothyroidism, unspecified; E78.5 Hyperlipidemia, unspecified; E78.00 Pure hypercholesterolemia, unspecified; D72.829 Elevated white blood cell count, unspecified; M81.0 Age-related osteoporosis without current pathological fracture; M06.9 Rheumatoid arthritis, unspecified; R32 Unspecified urinary incontinence; Z74.01 Bed confinement status; Z95.810 Presence of automatic (implantable) cardiac defibrillator; Z95.5 Presence of coronary angioplasty implant and graft; Z85.3 Personal history of malignant neoplasm of breast; Z90.10 Acquired absence of unspecified breast and nipple; Z87.01 Personal history of pneumonia (recurrent); Z87.891 Personal history of nicotine dependence; Z79.82 Long term (current) use of aspirin
CPT/HCPCS: 36415; 70450; 71045; 80048; 80053; 81003; 82948; 83880; 84484; 85025; 85027; 85610; 85730; 93005; 93880; 97162; 99285; G0378; G8978; G8979